=== PATIENT | female | born 1945 | race Caucasian/White ===

== ENCOUNTER 2016-05-15 08:36 | Emergency (ER) | payer OTHER ==
[~2016-05-15] VITALS: Ht 162.6 cm; Wt 70.0 kg
[~2016-05-15 08:36] MED LIST: ACET-1256 PO; ANT25 PO; ASPEC81 PO; CHOL200010 PO; DILT300C35 PO; DIPH-416 PO; FEXO1TAB49 PO; FLUT0.0529 NAE; LACT1TAB4 PO; POTA-331 PO; PRLSR20 PO; SIMV10TA2 PO; SYN137 PO; TRIA75TA53 PO; ULT50X PO
[2016-05-15 08:42] VITALS: TEMP 36.6; Ht 162.6 cm; Wt 70.0 kg
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
[2016-05-15] MEDS ORDERED: FLUT0.15 (09:35)
[2016-05-15] MEDS ORDERED: ASPI81TA28 PO (09:35)
[2016-05-15] MEDS ORDERED: IBUPROFEN 200 MG TAB PO STA (10:02)
[2016-05-15 10:26] VITALS: BP 138/80; PULSE 80; O2SAT 95
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
== END 2016-05-15 10:27 | disposition home or self-care (01) ==
LOC: EDBD 08:36 → C.EDB 08:37
DX: S09.90XA Unspecified injury of head, initial encounter (principal); V43.52XA Car driver injured in collision with other type car in traffic accident, initial encounter; E78.5 Hyperlipidemia, unspecified; K21.9 Gastro-esophageal reflux disease without esophagitis; Z79.899 Other long term (current) drug therapy; Z79.82 Long term (current) use of aspirin; Z96.653 Presence of artificial knee joint, bilateral; Z90.710 Acquired absence of both cervix and uterus; Z82.49 Family history of ischemic heart disease and other diseases of the circulatory system; Z82.3 Family history of stroke

== ENCOUNTER → 2016-08-15 | Outpatient (CLI) | payer OTHER ==
[~2016-08-15] MED LIST changes: -ACET-1256 PO; -ASPEC81 PO; +ASPI81TA28 PO; -DIPH-416 PO; -FLUT0.0529 NAE; +FLUT0.15; -POTA-331 PO; -ULT50X PO
--- NOTE | 2016-08-16 13:07 | MAMMOGRAPHY REPORT ---
BILATERAL DIGITAL SCREENING MAMMOGRAM WITH CAD: 08/15/2016 CLINICAL HISTORY: Routine screening. Patient has no complaints. TECHNIQUE: Bilateral CC and MLO views were obtained. Current study was also evaluated with a Comput er Aided Detection (CAD) system. COMPARISON: Comparison is made to exams dated: 08/15/2015 mammogram, 08/11/2014 mammogram, 08/10/2013 mammogram, 08/07/2012 mammogram, 06/15/2011 mammogram, and 06/09/2010 mammogram - [facility]. BREAST COMPOSITION: There are scattered areas of fibroglandular density in both breasts. FINDINGS: There are mild to moderate vascular calcifications in the breasts. No new suspicious mass , architectural distortion or cluster of microcalcifications is seen. IMPRESSION: ACR BI-RADS CATEGORY 1: NEGATIVE There is no mammographic evidence of malignancy. A 1 year screening mammogram is recommended. The p atient will receive written notification of the results. Approximately 10% of breast cancers are not detected with mammography. A negative mammographic repor t should not delay biopsy if a clinically suggestive mass is present. Stephanie Yañez M.D. ay/:08/15/2016 16:28:22 Electric Melt Operator: Sarah LONG(Drake)(David), [facility] letter sent: Normal 1/2 BI-RADS Code: ACR BI-RADS Category 1: Negative
== END | disposition home or self-care (01) ==
LOC: C.MAMM 15:49
PROVIDERS: ATTEND Physician Assistant
DX: Z12.31 Encounter for screening mammogram for malignant neoplasm of breast (principal)

== ENCOUNTER → 2017-08-07 | Outpatient (CLI) | payer OTHER | END | disposition home or self-care (01) | LOC: C.PATHSPEC 17:25 | PROVIDERS: ATTEND Physician Assistant | DX: C44.91 Basal cell carcinoma of skin, unspecified (principal) ==

== ENCOUNTER 2018-04-27 23:09 | Inpatient (IN) ==
[2018-04-27] MEDS ORDERED: SODIUM CHLORIDE 0.9% 500 ML IV SCH (23:30)
[2018-04-27 23:41] LABS: Basophils # (auto) 0.03 K/uL (0-0.2); Basophils % (auto) 0.2 %; Eosinophils # (auto) 0.34 K/uL (0-0.5); Eosinophils % (auto) 2.8 %; Hematocrit (blood only) 47.1 % (37-47); Hemoglobin 15.6 g/dL (12.0-16.0); Immature Granulocytes % (auto) 0.8 %; Lymphocytes # (auto) 3.52 K/uL (1.2-3.4); Lymphocytes % (auto) 29.1 %; Mean Corpuscular Hgb Conc 33.1 g/dL (32-36); Mean Corpuscular Volume 93.6 fL (80-100); Mean Platelet Volume 10.7 fL (7.4-10.4); Monocytes # (auto) 1.38 K/uL (0.11-0.59); Monocytes % (auto) 11.4 %; Neutrophils # (auto) 6.73 K/uL (1.4-6.5); Neutrophils % (auto) 55.7 %; Platelet Count 306 K/uL (130-400); RDW Coefficient of Variation 14.7 % (11.5-14.5); RDW Standard Deviation 50.1 fL (36.4-46.3); Red Blood Count 5.03 M/uL (4.2-5.4)
[2018-04-27] MEDS ORDERED: NITROGLYCERIN 2% OINTMENT 30GM TUBE EXT STA (23:51)
[2018-04-27] MEDS ORDERED: METOPROLOL TARTRATE 1 MG/ML VIAL IV STA (23:54)
[2018-04-28 00:07] LABS: Albumin Level 3.3 gm/dl (3.4-5.0); BUN Creatinine Ratio 25.5 (10-20); Calcium 8.6 mg/dl (8.5-10.1); Creatinine Clr Calc Pharmacy 53.2 ml/min; Est GFR (African American) 68.9; Est GFR (Non-African American) 59.4; Magnesium 1.6 mg/dl (1.8-2.4); Potassium 3.1 mmol/L (3.5-5.1)
[2018-04-28 00:15] LABS: Bilirubin,Total 0.4 mg/dl (0.2-1); Globulin 3.3 gm/dl (2.5-4.0); Total Protein 6.6 gm/dl (6.4-8.2); Troponin I 0.351 ng/ml (0-0.045)
[2018-04-28] MEDS ORDERED: MAGNESIUM OXIDE 400 MG TAB PO STA (00:18)
[2018-04-28] MEDS ORDERED: MAGNESIUM SULFATE / D5W 1 GM/100 ML BAG IV ONE (00:18)
[2018-04-28] MEDS ORDERED: POTASSIUM CHLORIDE 20 MEQ TABCR PO STA (00:40)
[2018-04-28] MEDS ORDERED: OPTIRAY 320 125ml IV PRN (00:53)
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
--- NOTE | 2018-04-28 04:07 | History and Physical Report ---
DATE OF ADMISSION: 04/28/2018 CHIEF COMPLAINT: Chest pain. HISTORY OF PRESENT ILLNESS: This is a 73-year-old female with past medical history significant for hypothyroidism, hyperlipidemia, hypertension, retinal vein occlusion of right eye, GERD, history of vitamin B12 deficiency, chronic kidney disease stage III, osteoporosis, history of pulmonary embolism, first time was in 1999 after being on hormone treatment and second time was in 2009, postoperative status post right knee arthroplasty. In October 2014, after status post left knee arthroplasty, she had hematoma and an IVC filter was placed and at that time after that she developed retroperitoneal hematoma and IVC filter was removed and because both the PEs were provoked, Coumadin was taken off and she is no longer on Coumadin and doing okay. Presents with chest pain today. The patient woke up in the middle of the night with chest pain, retrosternal area, radiating to left shoulder and left arm, was about 10/10 in severity. She took 4 aspirins and the pain started to subside. By the time EMS came, the pain was almost gone. She just had a pressure like feeling now and brought in here. Currently, hemodynamically stable. During the episode she was sweating, but denies any nausea or any dizziness. Otherwise, until this she was doing okay. She can climb steps and walk without any sob or any chest pain. No headaches, no blurred visions, no earaches, no runny nose, no sore throat, no difficulty swallowing, no cough. Sleeps okay. No night sweats. No recent significant weight gain or weight loss. No abdominal pain. Normal bowel and bladder movements. No blood in the stools or black stools. Currently, resting comfortably and hemodynamically stable. The patient received nitro paste and IV Lopressor in the ER.Patient lives with the daughter ALLERGIES: DAPTOMYCIN, IMIPENEM, RECLAST, SULFA ANTIBIOTICS. PAST MEDICAL HISTORY: As mentioned above. PAST SURGICAL HISTORY: Bilateral knee arthroplasties, colonoscopy, injection of the eye drug, IVC filter placement and status post removal, tonsillectomy, repair of the bladder and vagina cystocele, total abdominal hysterectomy with removal of tubes. MEDICATIONS: The patient is currently on omeprazole 20 mg p.o. daily, aspirin 81 p.o. daily, vitamin D 2000 units p.o. daily, diltiazem XT 300 mg p.o. at bedtime, fexofenadine 180 mg p.o. daily, levothyroxine 150 mcg p.o. daily, omeprazole 20 mg p.o. daily, pumpkin seed 1 cap p.o. b.i.d., Zantac 150 mg p.o. b.i.d., simvastatin 20 mg p.o. q.p.m., triamterene/hydrochlorothiazide 75/50 mg tablet half tablet p.o. daily. SOCIAL HISTORY: Significant for divorce, lives alone. No smoking, no alcohol, no drug use. REVIEW OF SYSTEMS: As per HPI. Rest of the review of systems negative. PHYSICAL EXAMINATION: GENERAL: The patient is of moderate build, not in acute distress. VITAL SIGNS: Temperature 36.5, pulse 83, respiratory rate 16, blood pressure 144/90, oxygen 94% on room air. HEENT: No pallor, no icterus. Pupils equal, round, and reactive to light. NECK: No JVD, no neck masses, no carotid bruit. CARDIOVASCULAR: S1, S2 heard, regular rate and rhythm, no murmur, no gallop. RESPIRATORY SYSTEM: Normal AP diameter. No accessory muscle use. No wheezing, no crackles. ABDOMEN: Soft, bowel sounds present. Nontender. No distention. CENTRAL NERVOUS SYSTEM: Cranial nerves II-XII grossly intact. Nonfocal. EXTREMITIES: No edema, no erythema. LABORATORY DATA: WBC 12.1, hemoglobin 15.6, hematocrit 47.1, platelets 306. Sodium 142, potassium 3.1, chloride 107, bicarbonate 27, BUN 24, creatinine 0.95. Serum glucose 113, calcium 8.6, magnesium 1.6, total bilirubin 0.4, AST 8, ALT 23, alkaline phosphatase 80, point of care troponin 1.09, troponin I of 0.35. Lipase 91. IMAGING DATA: CT of the chest, unofficial report, No PE. EKG: Sinus tachycardia at a rate of 101, no acute ST changes seen. No significant change from previous EKG. ASSESSMENT AND PLAN: This 73-year-old female presents with chest pain and found to have mild elevation in troponin, possible non-ST elevated DC. 1. Non-ST elevated DC. Woke up with chest pain, severe in nature in the middle of the chest, radiated to left arm. Has risk factors with hypertension, hyperlipidemia, age. CT of the chest, no PE. Will follow serial cardiac enzymes, echocardiogram. Will start on IV heparin. Will place on IV Lopressor and nitro paste. Closely monitor on tele floor. Cardiology consult. Follow echocardiogram, cardiac catheterization as per cardiology. 2. History of hypertension. Will continue home medication of triamterene/hydrochlorothiazide. As we started on IV Lopressor, we will cut back on Cardizem-CD from 300 to 120 mg daily and monitor the blood pressure. 3. Hyperlipidemia, on simvastatin 20 mg p.o. at bedtime. Follow fasting lipid profile. May need high-dose statins. 4. Hypothyroidism, on Synthroid. 5. Gastroesophageal reflux disease, on Prilosec sand Zantac. 6. Chronic kidney stage III, currently labs stable with creatinine at 0.95. 7. History of pulmonary embolism, provoked twice, first was in 1999 when she was on hormone pill, second time was in 2009 when she had a right knee arthroplasty, and in October 2014 when she had her left knee arthroplasty, she had hematoma in the thigh and at that time IVC filter was placed. Then she developed retroperitoneal hematoma and IVC filter was removed and as two PEs were provoked, Coumadin was stopped and she was not restarted. Today's CAT scan shows no PE. 8. Deep venous thrombosis prophylaxis, started on IV heparin. DISPOSITION: Closely monitor in tele floor. Expect to discharge home and follow with her family doctor. Level 1 full code. MTDD
[2018-04-28] MEDS ORDERED: ACETAMINOPHEN 325 MG TAB PO PRN (04:43)
[2018-04-28] MEDS ORDERED: MoRPHine SULFATE 4 MG/ML 1 ML CARP\\VIAL IV PRN (04:43)
[2018-04-28] MEDS ORDERED: Heparin IV Standard *NO* Bolus ONE (04:43)
[2018-04-28] MEDS ORDERED: HEPARIN STANDARD DEXTROSE 25,000 UNITS/500 ML IV SCH (05:12)
[2018-04-28] MEDS: METOPROLOL TARTRATE 1 MG/ML VIAL IV SCH ×2 (05:17→11:37)
[2018-04-28 05:47] LABS: Basophils # (auto) 0.03 K/uL (0-0.2); Basophils % (auto) 0.2 %; Eosinophils # (auto) 0.22 K/uL (0-0.5); Eosinophils % (auto) 1.7 %; Hematocrit (blood only) 42.7 % (37-47); Hemoglobin 14.2 g/dL (12.0-16.0); Immature Granulocytes # (auto) 0.08 K/uL (0.00-0.02); Immature Granulocytes % (auto) 0.6 %; Lymphocytes # (auto) 2.27 K/uL (1.2-3.4); Lymphocytes % (auto) 17.5 %; Mean Corpuscular Hgb Conc 33.3 g/dL (32-36); Mean Corpuscular Volume 93.2 fL (80-100); Mean Platelet Volume 9.9 fL (7.4-10.4); Monocytes # (auto) 1.18 K/uL (0.11-0.59); Monocytes % (auto) 9.1 %; Neutrophils # (auto) 9.22 K/uL (1.4-6.5); Neutrophils % (auto) 70.9 %; Platelet Count 274 K/uL (130-400); RDW Coefficient of Variation 14.6 % (11.5-14.5); RDW Standard Deviation 49.6 fL (36.4-46.3); Red Blood Count 4.58 M/uL (4.2-5.4)
[2018-04-28] MEDS ORDERED: NITROGLYCERIN 2% OINTMENT 30GM TUBE EXT SCH (06:00)
[2018-04-28 06:02] LABS: Partial Thromboplastin Time 24.7 Seconds (21.0-31.0)
[2018-04-28] MEDS: LEVOTHYROXINE SODIUM 150 MCG TABLET PO SCH (06:09)
[2018-04-28 06:15] LABS: Magnesium 1.9 mg/dl (1.8-2.4); Troponin I 3.34 ng/ml (0-0.045)
--- NOTE | 2018-04-28 06:52 | CT Scan Report ---
CT angio chest PE protocol CT DOSE: 243.30 mGy.cm HISTORY: Chest Pain, eval for PE TECHNIQUE: Multiaxial CT images of the chest were performed following the intravenous administration of contrast to evaluate the pulmonary arteries. Maximal intensity projection images were also obtaine d. A dose lowering technique was utilized adhering to the principles of ALARA. COMPARISON STUDY: 12/27/2014 FINDINGS: No evidence for pulmonary embolism. Thoracic aorta is normal in course and caliber. Minimal infiltrate left base. Lungs otherwise appear clear. Fixed lateral hernia. Centimeter left renal cyst. IMPRESSION: No evidence for pulmonary embolus. Minimal infiltrate left base. Fixed lateral hernia. Large left dat al cyst. The above report was generated using voice recognition software. It may contain grammatical, syntax or spelling errors. Electronically signed by: Mykel Cohn M.D. 04/28/2018 6:51 AM
[2018-04-28] MEDS: TRIAMTERENE/HCTZ 37.5/25MG TAB PO SCH (07:44)
[2018-04-28] MEDS: CHOLECALCIFEROL 1,000 UNITS TAB PO SCH (07:44)
[2018-04-28] MEDS: ASPIRIN 81 MG ECTAB PO SCH (07:45)
[2018-04-28] MEDS: PANTOprazole 40 MG TAB PO SCH (07:45)
[2018-04-28] MEDS ORDERED: dilTIAZem HCL 120 MG CAPCR PO SCH (09:00)
[2018-04-28] MEDS: NITROGLYCERIN SL 0.4 MG/TAB TAB SL PRN ×3 (09:13→13:00)
[2018-04-28] MEDS ORDERED: NiCARDipine HCL INJ 2.5 MG/ML 10 ML AMP ONE (09:14)
[2018-04-28] MEDS ORDERED: MIDAZOLAM HCL 1 MG/ML 2ML VIAL ONE (09:14)
[2018-04-28] MEDS ORDERED: HEPARIN (PORCINE) 1000 UNIT/ML 10 ML (CATH LAB USE ONLY) ONE (09:14)
[2018-04-28] MEDS ORDERED: fentaNYL citrate 100 MCG/2 ML VIAL ONE (09:14)
[2018-04-28] MEDS ORDERED: NITROGLYCERIN/D5W 100MCG/ML 20ML SYR ONE (09:15)
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
--- NOTE | 2018-04-28 09:16 | Pre Anesthesia Assessment ---
Date of Service April 28, 2018 Pre Sedation Assessment Vital Signs Temp Pulse Pulse Resp BP Pulse Ox 04/30/18 16:30 83 17 114/77 90 04/30/18 16:15 83 19 115/76 92 04/30/18 16:00 86 18 114/80 95 04/30/18 15:34 36.4 C L 86 18 125/76 93 04/30/18 11:00 36.8 C 91 H 19 112/74 95 04/30/18 08:00 84 04/30/18 07:01 36.5 C 89 18 107/75 94 04/30/18 03:07 36.6 C 88 18 115/77 97 04/29/18 23:51 36.7 C 81 18 106/66 92 04/29/18 23:14 82 04/29/18 19:10 36.6 C 83 20 102/65 93 Cardiovascular RRR, no murmur, no edema Respiratory normal respiratory effort, lungs clear to auscultation Pre-Sedation Airway Assessment Smoking Status: Never smoker Procedure Planning Contraindications for Sedation: none Current Medications Reviewed: Yes Notes The planned sedation has been discussed with the patient. Informed Consent was obtained. I have identified the patient, determined the appropriateness of sedation and have assessed the patient immediately prior to the procedure. All medicine(s) and interventions are by my order.
--- NOTE | 2018-04-28 10:23 | Cardiac Catheterization ---
Cardiac Cath Procedure Full Procedure Date April 28, 2018 Pre-Procedure Diagnosis Pre-Procedure Diagnosis: Non STEMI AUC Score AUC Score: 9 Post-Procedure Diagnosis Post-Procedure Diagnosis: Severe CAD and Elevated Intracardiac Pressures Procedure(s) Performed Procedure(s) Performed: Coronary Angiography and Left Heart Cath Dough Raiser Charles Ortega DO Estimated Blood Loss Estimated Blood Loss: 10cc Medication(s) Medication(s): Fentanyl, Heparin, Lidocaine 1%, Nicardipine, Nitroglycerin and Versed Summary of Findings 99% mid LAD 70% proximal RCA Hemodynamics Rest Ao:: 109/65/85 Final Ao: 124/65/90 LV: 127/6/18 Recommendations Recommendations: PCI without planned CABG Specimens Specimens: None Radiation Exposure (mGy) 626 Contrast (mls) 55 Fluids (cc crystalloids) Fluids (cc crystalloids): 61 NSS Anesthesia Moderate sedation. Start 0937. End 101. Procedural Complication(s) None Sheath exchanged for 6Fr glide sheath due to oozing at skin. No furher blood loss after exchange. Disposition cardiac catheterization technician for PCI ACC Data: Te[place] Cardiac Status Clinical evaluation leading to the procedure CAD Presenation: Non STEMI Anginal Classification: CCS IV Heart Failure: No Cardiogenic Shock within 24 Hours: No Cardiac Arrest within 24 Hours: No Imaging Studies Past 6 Months: No Stress Studies Past 6 Months: No STEMI OR Non-STEMI Symptom Onset Date: 04/27/18 Symptom Onset Time: 22:02 Thrombolytics: No Coronary Anatomy Dominant: Right Left Main (% Stenosis): Normal LAD (% Stenosis): Proximal (40% in area of mild to moderate calcification), Mid (99%) and Distal (30%) D1 (% Stenosis): Normal Circumflex (% Stenosis): Normal OM1 (% Stenosis): Normal L PL1 (% Stenosis): Normal RCA (% Stenosis): Proximal (70% followed by 50%) R PDA (% Stenosis): Normal R PL1 (% Stenosis): Normal Diagnostic Physicians Name: Charles Ortega DO Closure Device Percutaneous Entry Location: Radial Closure Device: Radial Band Recommendations: PCI without planned CABG Intraprocedure Events Significant Disection: No Perforation: No
[2018-04-28] MEDS ORDERED: ADENOSINE IV SOLN 3 MG/ML 20 ML VIAL IV ONE (10:31)
--- NOTE | 2018-04-28 10:33 | Post Anesthesia Assessment ---
Date of Service April 28, 2018 Post Sedation Assessment Vital Signs Temp Pulse Pulse Resp BP Pulse Ox 04/30/18 16:30 83 17 114/77 90 04/30/18 16:15 83 19 115/76 92 04/30/18 16:00 86 18 114/80 95 04/30/18 15:34 36.4 C L 86 18 125/76 93 04/30/18 11:00 36.8 C 91 H 19 112/74 95 04/30/18 08:00 84 04/30/18 07:01 36.5 C 89 18 107/75 94 04/30/18 03:07 36.6 C 88 18 115/77 97 04/29/18 23:51 36.7 C 81 18 106/66 92 04/29/18 23:14 82 04/29/18 19:10 36.6 C 83 20 102/65 93 Post Sedation Plan On clinical assessment, the patient appears to have tolerated the sedation without complications. Patient is recovering as anticipated. Patient will continue to be monitored by nursing and may be discharged when sedation discharge criteria are met per below protocol. Upon Completions of procedure and additional 15 minutes continue every 5 minute vital signs and the P.A.R. score; then discharge to a Phase I or Fast Track to Phase II per the following guidelines: * Discharge Patient to appropriate Phase II area if PAR is 8 or greater or return to pre- procedure baseline. The post - procedure orders will be as directed. * If PAR score is less than 8 or not return to pre-procedure baseline then patient will follow Phase I monitoring till PAR is reached for Phase II. The Phase I may be done in procedure room or may call to secure a Phase I area. * If naloxone or flumazenil are used for reversal, hold in Phase I for continued monitoring from when last reversal dose was given for a minimum of 60 minutes or longer pending the nurse and/or physician discretion of patient condition before discharge to Phase II. Please call the Sedation Physician to re-evaluate and complete post-note for discharge to Phase II area. Do NOT discharge from procedure sedation or Phase 1 until post- sedation evaluation note is complete by procedure /sedation MD Sedation Discharge Instructions to be given to the patient at discharge to home.
--- NOTE | 2018-04-28 10:51 | Post Anesthesia Assessment ---
Date of Service April 28, 2018 Post Sedation Assessment Vital Signs Temp Pulse Pulse Resp BP BP Pulse Ox 04/28/18 09:18 96 H 131/74 04/28/18 09:12 96 H 146/84 H 04/28/18 07:30 36.7 C 78 18 120/76 94 04/28/18 07:16 79 04/28/18 04:14 36.5 C 78 18 145/88 H 96 04/28/18 03:27 80 18 98 04/28/18 03:00 83 17 135/90 04/28/18 02:30 83 16 94 04/28/18 02:00 82 30 H 144/90 H 94 04/28/18 01:35 78 19 94 04/28/18 01:34 80 18 121/76 95 04/28/18 01:33 79 20 121/76 94 04/28/18 01:00 80 18 132/82 04/28/18 00:49 82 18 143/88 H 96 04/28/18 00:48 84 28 H 143/88 H 94 04/28/18 00:47 90 35 H 04/28/18 00:10 78 16 141/95 H 04/28/18 00:07 88 21 153/97 H 04/28/18 00:03 95 H 18 166/95 H 04/27/18 23:57 90 18 155/104 H 96 04/27/18 23:31 90 18 140/109 H 94 04/27/18 23:30 88 19 95 04/27/18 23:27 97 04/27/18 23:16 104 H 18 96 04/27/18 23:14 101 H 21 160/100 H 96 04/27/18 23:12 36.5 C 100 H 18 160/100 H 97 Recovery Score Activity: Moves 4 extremities Respiration: Deep Breath/Cough Circulation: +/-20% PreAnes Value Consciousness: Fully Awake Oxygen Saturation: O2 needed for >90% Discharge Sedation Level of Care: Fast Track Phase II Post Sedation Plan On clinical assessment, the patient appears to have tolerated the sedation without complications. Patient is recovering as anticipated. Patient will continue to be monitored by nursing and may be discharged when sedation discharge criteria are met per below protocol. Upon Completions of procedure and additional 15 minutes continue every 5 minute vital signs and the P.A.R. score; then discharge to a Phase I or Fast Track to Phase II per the following guidelines: * Discharge Patient to appropriate Phase II area if PAR is 8 or greater or return to pre- procedure baseline. The post - procedure orders will be as directed. * If PAR score is less than 8 or not return to pre-procedure baseline then patient will follow Phase I monitoring till PAR is reached for Phase II. The Phase I may be done in procedure room or may call to secure a Phase I area. * If naloxone or flumazenil are used for reversal, hold in Phase I for continued monitoring from when last reversal dose was given for a minimum of 60 minutes or longer pending the nurse and/or physician discretion of patient condition before discharge to Phase II. Please call the Sedation Physician to re-evaluate and complete post-note for discharge to Phase II area. Do NOT discharge from procedure sedation or Phase 1 until post- sedation evaluation note is complete by procedure /sedation MD Sedation Discharge Instructions to be given to the patient at discharge to home.
[2018-04-28] MEDS ORDERED: TICAGRELOR 90 MG TAB PO ONE (10:52)
--- NOTE | 2018-04-28 11:00 | Cardiac Catheterization ---
Cardiac Cath Procedure Full Procedure Date April 28, 2018 Pre-Procedure Diagnosis Pre-Procedure Diagnosis: Non STEMI AUC Score AUC Score: 9 Post-Procedure Diagnosis Post-Procedure Diagnosis: Severe CAD and Successful PCI Procedure(s) Performed Procedure(s) Performed: Coronary Angiography, Drug Eluting Stent and Fractional Flow [place] [employer] Pedro Vera MD Litigation Support Analyst(s) [place] Estimated Blood Loss Estimated Blood Loss: 10cc Medication(s) Medication(s): Fentanyl, Heparin, Lidocaine 1%, Nicardipine, Nitroglycerin and Versed Medication(s): Ticagrelor Summary of Findings Indication: ACS Access: 6 [place] right radial artery Catheters: EBU 3.5 guide, JR4 guide Findings: For full details of patient's coronary angiography please cath report dictated by Dr. Ortega. Briefly, patient found to have severe multi vessel disease including a 95% stenosis involving the mid LAD and 60-70% proximal to mid RCA stenosis. Decision to proceed with PCI of mid LAD and FFR of RCA. -- PCI -- Antithrombotic therapy: Heparin, ticagrelor Procedure: Left main cannulated with EBU 3.5 Business Development Officer 50 wire passed across lesion into distal vessel Mid LAD lesion predilated with 2.5 compliant balloon Dilated lesion stented with 2.75 x 18 mm Xience Any Stent post-dilated with 3.0 noncompliant balloon IC vasodilators administered for spasm Post procedure NADINE 3 flow, stent well expanded with minimal residual stenosis and no apparent cardiac complications. FFR of proximal mid RCA RCA cannulated with JR4 guide Straight FFR wire placed into distal RCA IFR 0.86 FFR 0.71 Post procedure angiography revealed no coronary complications Arterial Closure: TR band Summary: 1. Severe multi vessel coronary artery disease -95% mid LAD (culprit vessel) 60-70% proximal to mid RCA (hemodynamically significant, FFR 0.71) 2. Successful PCI of mid LAD with single drug-eluting stent (2.75 x 18 mm Xience Any; postdilated with 3.0 NC). Recommendations: To PCU for continued monitoring Loaded with ticagrelor 180 mg in cath lab manager Continue dual-antiplatelet therapy for at least one year Continue statin, and ASCVD risk factor modification Consult cardiac Rehab Medical management of proximal to mid RCA. If refractory symptoms in the future disease amenable to PCI. Hemodynamics Rest Ao:: 124/65/90 Final Ao: 119/62/89 LV: 127/18 Recommendations Recommendations: PCI without planned CABG Specimens Specimens: None Radiation Exposure (mGy) 1249 Contrast (mls) 55, 105 total Fluids (cc crystalloids) Fluids (cc crystalloids): 105 Drains Drains: None Anesthesia Moderate sedation Procedural Complication(s) None Sheath exchanged for 6Fr glide sheath due to oozing at skin. No furher blood loss after exchange. Disposition PCU ACC Data: Dorr Operator Cardiac Status Clinical evaluation leading to the procedure CAD Presenation: Non STEMI Anginal Classification: CCS IV Heart Failure: No Cardiogenic Shock within 24 Hours: No Cardiac Arrest within 24 Hours: No Imaging Studies Past 6 Months: Yes Stress Studies Past 6 Months: No Diagnostic Physicians Name: Jordan Status: Urgent Closure Device Percutaneous Entry Location: Radial Closure Device: Radial Band Recommendations: PCI without planned CABG PCI Indication: PCI for high risk Non-JOHN Lesion Segment Name: Mid LAD Culprit Artery: Yes Stenosis Prior to Rx (%): 95 Chronic Total Occlusion: No IVUS: No FFR: No Pre-Procedure NADINE Flow: 2 Previously Treated Lesion: No Lesion Complexity: Non-High/Non-C Lesion Length (mm): 15 Thrombus Present: Yes Bifurcation Lesion: No Guidewire Across Lesion: Stenosis Post-Procedure (%): 0 Post-Procedure NADINE Flow : 3 Devices(s) Deployed: Yes Yes Lesion #2 Segment Name: Proximal to mid RCA Culprit Artery: No Stenosis Prior to Rx (%): 60-70 Chronic Total Occlusion: No IVUS: No FFR: Yes Ratio: less than or equal to 0.75% Pre-Procedure NADINE Flow: 3 Previously Treated Lesion: No Thrombus Present: No Bifurcation Lesion: No Intraprocedure Events Significant Disection: No Perforation: No
[2018-04-28 12:48] LABS: Partial Thromboplastin Ratio > 11.0
[2018-04-28 12:50] LABS: Partial Thromboplastin Time > 300.0 Seconds (21.0-31.0)
[2018-04-28] MEDS ORDERED: NITROGLYCERIN 2% OINTMENT 30GM TUBE ONE (13:11)
[2018-04-28] MEDS ORDERED: FUROSEMIDE 40 MG/4 ML VIAL IV ONE (13:19)
[2018-04-28] MEDS: ONDANSETRON INJ 2 MG/ML 2 ML VIAL IV PRN (13:30)
[2018-04-28] MEDS: ATORVASTATIN 40 MG TAB PO SCH (14:09)
[2018-04-28] MEDS: TICAGRELOR 90 MG TAB PO SCH (20:04)
[2018-04-28] MEDS: METOPROLOL TARTRATE 25 MG TAB PO SCH (20:04)
[2018-04-28] MEDS ORDERED: SIMVASTATIN 20 MG TAB PO SCH (21:00)
[2018-04-29] MEDS: LEVOTHYROXINE SODIUM 150 MCG TABLET PO SCH (05:27)
[2018-04-29 05:55] LABS: Partial Thromboplastin Time 24.7 Seconds (21.0-31.0)
[2018-04-29 06:03] LABS: BUN Creatinine Ratio 19.4 (10-20); Calcium 8.2 mg/dl (8.5-10.1); Creatinine Clr Calc Pharmacy 44.5 ml/min; Est GFR (African American) 59.6; Est GFR (Non-African American) 51.5; Potassium 3.7 mmol/L (3.5-5.1)
[2018-04-29] MEDS: TICAGRELOR 90 MG TAB PO SCH ×2 (08:25→20:14)
[2018-04-29] MEDS: PANTOprazole 40 MG TAB PO SCH (08:26)
[2018-04-29] MEDS: METOPROLOL TARTRATE 25 MG TAB PO SCH ×2 (08:26→20:13)
[2018-04-29] MEDS: ATORVASTATIN 40 MG TAB PO SCH (08:27)
[2018-04-29] MEDS: CHOLECALCIFEROL 1,000 UNITS TAB PO SCH (08:27)
[2018-04-29] MEDS: ASPIRIN 81 MG ECTAB PO SCH (08:27)
[2018-04-29] MEDS: TRIAMTERENE/HCTZ 37.5/25MG TAB PO SCH (08:28)
--- NOTE | 2018-04-29 11:57 | Cardiology Progress Note ---
Date of Service April 29, 2018 Assessment & Plan (1) Non-ST elevated myocardial infarction (non-STEMI): Culprit vessel (LAD) treated with a drug-eluting stent implantation. Residual significant proximal right coronary artery stenosis noted. Medical therapy versus invasive strategy discussed with patient. She prefers to proceed with PCI of the right coronary artery. We will plan procedure in the a.m. 04/30/18. Risks of procedure discussed with patient. She is agreeable. (2) Dyslipidemia: Simvastatin discontinued in favor of high intensity statin therapy. 80 mg of atorvastatin ordered. (3) Hypertension: (4) History of pulmonary embolism: (5) Ischemic cardiomyopathy: Diltiazem discontinued. Patient tolerating beta-johnna therapy we will add lisinopril 2.5 mg daily. Subjective Patient seen and examined at the bedside. Feeling well from a cardiovascular perspective. No recurrent chest discomfort overnight. Troponins trending downward. No dysrhythmias on telemetry. Repeat ECG demonstrates T wave inversions across the anterior lateral precordial leads. Patient has questions regarding return to work. Denies orthopnea, PND, or palpitations. Tolerating medications. Offers no other concerns/complaints at this time. Review of Systems All systems reviewed & are unremarkable except as noted in HPI & below Physical Exam 2 Vital Signs (Past 24 Hours): Last Vital Signs Temp 36.9 C 04/29/18 11:47 Pulse 69 04/29/18 11:47 Resp 18 04/29/18 11:47 BP 132/64 04/29/18 11:47 Pulse Ox 96 04/29/18 11:47 Physical Exam: General: NAD, AAO x3, well nourished. HEENT: Normocephalic. Atraumatic. Conjunctiva pink, no scleral icterus. Neck: No carotid bruits, the carotid upstrokes are brisk. No JVD. No HJR Heart: Regular normal S-1 and S-2 no S-3 or S-4 gallop. No murmurs or rub appreciated. PMI is not displaced. No RV heave. Lungs: Clear bilateral without rales , rhonchi, or wheeze. Abdomen: Normal bowel sounds. Soft. Nontender. No masses or organomegaly. No abdominal bruits. Extremities: Mild ecchymosis of the right anterior wrist. No clubbing, cyanosis, or edema. Pulses: radial=2/4, Dorsalis pedis =2/4, posterior tibial=2/ 4. Neuro: Cranial nerves grossly intact. No focal motor deficit.
[2018-04-29] MEDS: LISINOPRIL 2.5 MG TAB PO SCH (13:15)
--- NOTE | 2018-04-29 16:44 | Hospitalist Progress Note ---
Date of Service April 29, 2018 Assessment & Plan (1) Non-ST elevated myocardial infarction (non-STEMI): Presented with chest pain. Troponin 0.351 --> 3.340. Intially received aspirin, IV heparin, beta johnna. Cardiology consulted. Cardiac cath by Dr. Ortega demonstrated 99% mid LAD lesion and 70% proximal RCA lesion. PCI of LAD lesion performed by Dr. Vera with drug-eluting stent. Echo today showed segmental wall motion abnormalities involving apex and mid septum, grade I diastolic dysfunction. Receiving aspirin, ticagrelor, metoprolol, lisinopril, statin. (2) Ischemic cardiomyopathy: LVEF by echo today = 35-40%. Receiving lisinopril. Experiencing mild dyspnea with exertion. Check f/u chest x-ray tomorrow. (3) Hypertension: Received metoprolol and lisinopril. (4) Dyslipidemia: LDL-c = 45. Switched from simvastatin to atorvastatin in light of non-STEMI. (5) Hypothyroidism: Continue levothyroxine. (6) DVT prophylaxis: Received IV heparin. Ambulate. (7) Discharge planning issues: Anticipated discharge to home. Primary care follow-up with Dr. Winchester. Subjective Recheck for myocardial infarction and other problems. Pt seen in her room around 1630. PCI LAD performed yesterday. PCI RCA planned for tomorrow. No chest pain. Mild dyspnea and fatigue with exertion. No fever. No cough. No nausea or vomiting. No urinary symptoms. Physical Exam 2 Vital Signs (Past 24 Hours): Last Vital Signs Temp 36.9 C 04/29/18 15:22 Pulse 92 H 04/29/18 15:22 Resp 20 04/29/18 15:22 BP 112/75 04/29/18 15:22 Pulse Ox 93 04/29/18 15:22 Constitutional: no acute distress Respiratory: no respiratory distress Auscultation: lungs clear to auscultation bilaterally Cardiovascular: Rate/Rhythm: regular rate and regular rhythm Heart Sounds: no gallop, no murmur and no cardiac rub Vessels: no JVD Extremities: no calf tenderness and no edema Gastrointestinal (Abdomen): normal bowel sounds, soft, nontender, no hepatosplenomegaly Musculoskeletal: Extremities: + upper extremity abnormal to inspection (right radial cath side without bleeding or hematoma) Skin: no rashes, warm and dry Psychiatric: Orientation: alert and oriented x 3 Results & Data Laboratory Results Laboratory Results - last 24 hr 04/28/18 04/28/18 04/29/18 10:15 10:30 05:20 APTT 24.7 PTT Ratio 1.0 Activ Coag Time Kaolin 191 H 296 H Sodium Potassium Chloride Carbon Dioxide Anion Gap BUN Creatinine Est Cr Clr Drug Dosing Est GFR ( Amer) Est GFR (Non-Af Amer) BUN/Creatinine Ratio Glucose Calcium 04/29/18 05:20 APTT PTT Ratio Activ Coag Time Kaolin Sodium 142 Potassium 3.7 D Chloride 106 Carbon Dioxide 28 Anion Gap 8.0 BUN 21 H Creatinine 1.07 Est Cr Clr Drug Dosing 44.5 Est GFR ( Amer) 59.6 Est GFR (Non-Af Amer) 51.5 BUN/Creatinine Ratio 19.4 Glucose 91 Calcium 8.2 L ECG Additional Comments: EKG performed this morning at 0609 reviewed and demonstrated NSR 80/min, T-wave inversions I, II, aVL, V1-6.
[2018-04-30] MEDS: LEVOTHYROXINE SODIUM 150 MCG TABLET PO SCH (05:57)
[2018-04-30 06:58] LABS: Hematocrit (blood only) 45.4 % (37-47); Hemoglobin 15.1 g/dL (12.0-16.0); Mean Corpuscular Hgb Conc 33.3 g/dL (32-36); Mean Corpuscular Volume 94.4 fL (80-100); Mean Platelet Volume 10.2 fL (7.4-10.4); Platelet Count 281 K/uL (130-400); RDW Coefficient of Variation 14.8 % (11.5-14.5); RDW Standard Deviation 50.8 fL (36.4-46.3); Red Blood Count 4.81 M/uL (4.2-5.4); White Blood Count 14.02 K/uL (4.8-10.8)
--- NOTE | 2018-04-30 07:23 | XRay Report ---
XR chest 1V portable CLINICAL HISTORY: Myocardial infarction COMPARISON STUDY: Chest x-ray dated 02/17/2015 FINDINGS: The heart is at the upper limits of normal in size. There is no failure. There is mild elev ation left hemidiaphragm. The right lung is clear. Left basilar opacities are nonspecific are likely atelectatic. There is minor blunting of the left lateral costophrenic angle.[ IMPRESSION: Mild elevation left hemidiaphragm. Minor left basilar opacities, likely atelectatic. Electronically signed by: Anthony Aponte M.D. 04/30/2018 7:21 AM
[2018-04-30 07:34] LABS: BUN Creatinine Ratio 21.7 (10-20); Calcium 8.6 mg/dl (8.5-10.1); Creatinine Clr Calc Pharmacy 39.2 ml/min; Est GFR (African American) 52.4; Est GFR (Non-African American) 45.3; Potassium 3.4 mmol/L (3.5-5.1)
[2018-04-30] MEDS: CHOLECALCIFEROL 1,000 UNITS TAB PO SCH (08:36)
[2018-04-30] MEDS: METOPROLOL TARTRATE 25 MG TAB PO SCH ×2 (08:36→20:56)
[2018-04-30] MEDS: TRIAMTERENE/HCTZ 37.5/25MG TAB PO SCH (08:36)
[2018-04-30] MEDS: ATORVASTATIN 40 MG TAB PO SCH (08:36)
[2018-04-30] MEDS: LISINOPRIL 2.5 MG TAB PO SCH (08:36)
[2018-04-30] MEDS: ASPIRIN 81 MG ECTAB PO SCH (08:36)
[2018-04-30] MEDS: PANTOprazole 40 MG TAB PO SCH (08:36)
[2018-04-30] MEDS: TICAGRELOR 90 MG TAB PO SCH ×2 (08:37→20:56)
[2018-04-30] MEDS ORDERED: LIDOCAINE HCL 1% 20 ML VIAL ONE (11:45)
[2018-04-30] MEDS ORDERED: MIDAZOLAM HCL 1 MG/ML 2ML VIAL ONE (14:01)
[2018-04-30] MEDS ORDERED: fentaNYL citrate 100 MCG/2 ML VIAL ONE (14:01)
[2018-04-30] MEDS ORDERED: HEPARIN (PORCINE) 1000 UNIT/ML 10 ML (CATH LAB USE ONLY) ONE (14:02)
[2018-04-30] MEDS ORDERED: NiCARDipine HCL INJ 2.5 MG/ML 10 ML AMP ONE (14:02)
[2018-04-30] MEDS ORDERED: NITROGLYCERIN/D5W 100MCG/ML 20ML SYR ONE (14:02)
--- NOTE | 2018-04-30 15:40 | Pre Anesthesia Assessment ---
Date of Service April 30, 2018 Pre Sedation Assessment Vital Signs Temp Pulse Pulse Resp BP Pulse Ox 04/30/18 15:34 36.4 C L 86 18 125/76 93 04/30/18 11:00 36.8 C 91 H 19 112/74 95 04/30/18 08:00 84 04/30/18 07:01 36.5 C 89 18 107/75 94 04/30/18 03:07 36.6 C 88 18 115/77 97 04/29/18 23:51 36.7 C 81 18 106/66 92 04/29/18 23:14 82 04/29/18 19:10 36.6 C 83 20 102/65 93 Cardiovascular RRR, no murmur, no edema Respiratory normal respiratory effort, lungs clear to auscultation Pre-Sedation Airway Assessment Smoking Status: Never smoker Hx Sleep Apnea: No Short, Thick Neck: No Thyromental Distance: > or= 3.5 Finger Breadths Oral Cavity: + WNL Mallampati Class: II ASA: ASA3 NPO Status Date of Last Intake of Fluids: 04/30/18 Time of Last Intake of Fluids: 08:16 Last Oral Intake of Fluids Comment: sips with pills Date of Last Intake of Solid Food: 04/29/18 Time of Last Intake of Solid Foods: 21:00 Procedure Planning Contraindications for Sedation: none Current Medications Reviewed: Yes Notes The planned sedation has been discussed with the patient. Informed Consent was obtained. I have identified the patient, determined the appropriateness of sedation and have assessed the patient immediately prior to the procedure. All medicine(s) and interventions are by my order.
--- NOTE | 2018-04-30 15:43 | Cardiac Catheterization ---
Cardiac Cath Procedure Full Procedure Date April 30, 2018 Pre-Procedure Diagnosis Pre-Procedure Diagnosis: Non STEMI AUC Score AUC Score: 7 Post-Procedure Diagnosis Post-Procedure Diagnosis: Severe CAD and Successful PCI Procedure(s) Performed Procedure(s) Performed: Coronary Angiography and Drug Eluting Stent Dance Coach Pedro Vera MD Epilepsy Physician(s) Echo Estimated Blood Loss Estimated Blood Loss: 10cc Medication(s) Medication(s): Fentanyl, Heparin, Lidocaine 1%, Nicardipine, Nitroglycerin and Versed Summary of Findings Indication: Staged PCI Access: 6 Citizen Of [place] right radial artery Catheters: JR4.5 guide Findings: Patient return for staged PCI of proximal to mid RCA today. For full details of patient's diagnostic coronary angiography please see cath report dictated by Dr. Ortega on 04/28/2018. -- PCI -- Antithrombotic therapy: Heparin, ticagrelor Procedure: RCA cannulated with JR 4.5 guide BMW wire navigated across lesion into distal vessel Proximal to mid RCA predilated with 2.5 compliant balloon 3.5 x 26 mm Bruce drug-eluting stent delivered across lesion with the aid of a guide liner. Stent postdilated with 3.75 NC balloon IC vasodilators administered for vasospasm. Post procedure stent well-expanded. NADINE-3 flow throughout RCA system. Mild residual disease proximal to stent thought likely some residual spasm. Arterial Closure: TR band Summary: 1. Successful PCI of proximal to mid RCA with single drug-eluting stent (3.5 x 26 mm Bruce; postdilated with 3.75 NC). Recommendations: To PCU for continued monitoring Continue dual-antiplatelet therapy for at least one year Continue statin, and ASCVD risk factor modification Hemodynamics Rest Ao:: 91/69/81 Final Ao: 83/59/70 LV: -- Recommendations Recommendations: PCI without planned CABG Specimens Specimens: None Radiation Exposure (mGy) 445 Contrast (mls) 50 Fluids (cc crystalloids) Fluids (cc crystalloids): 250 Drains Drains: None Anesthesia Moderate sedation Procedural Complication(s) None Disposition PCU ACC Data: Data Modeling Architect Cardiac Status Clinical evaluation leading to the procedure CAD Presenation: Non STEMI Anginal Classification: CCS IV Heart Failure: No Cardiogenic Shock within 24 Hours: No Cardiac Arrest within 24 Hours: No Imaging Studies Past 6 Months: Yes Stress Studies Past 6 Months: No Diagnostic Physicians Name: Kopinski. Status: Elective Closure Device Percutaneous Entry Location: Radial Closure Device: Radial Band Recommendations: PCI without planned CABG PCI Indication: Staged PCI Lesion Segment Name: Proximal to mid RCA Culprit Artery: No Stenosis Prior to Rx (%): 80 Chronic Total Occlusion: No IVUS: No FFR: No Pre-Procedure NADINE Flow: 3 Previously Treated Lesion: No Lesion Complexity: Non-High/Non-C Lesion Length (mm): 20 Thrombus Present: No Bifurcation Lesion: No Guidewire Across Lesion: Stenosis Post-Procedure (%): 0 Post-Procedure NADINE Flow : 3 Devices(s) Deployed: Yes Yes Intraprocedure Events Significant Disection: No Perforation: No
[2018-04-30] MEDS: ONDANSETRON INJ 2 MG/ML 2 ML VIAL IV PRN (15:57)
[2018-04-30] MEDS: SODIUM CHLORIDE 0.9% 1000ML 1,000 ML IV SCH ×2 (16:25→23:14)
--- NOTE | 2018-04-30 16:44 | Cardiology Progress Note ---
Date of Service April 30, 2018 Assessment & Plan (1) Non-ST elevated myocardial infarction (non-STEMI): Culprit vessel (LAD) treated with a drug-eluting stent implantation. Proximal RCA stented with AMIE today. Recommend 12 months of uninterrupted dual antiplatelet therapy. Continue beta-johnna, statin, and LIBAN inhibitor. (2) Dyslipidemia: Simvastatin discontinued in favor of high intensity statin therapy. (3) Hypertension: (4) History of pulmonary embolism: (5) Ischemic cardiomyopathy: Diltiazem discontinued. Patient tolerating beta-johnna and lisinopril 2.5 mg daily. Subjective Patient seen and examined at the bedside. Reports mild nausea currently. Received dose of Zofran. Underwent PCI to right coronary artery without complication. No recurrent chest discomfort. Daughter is present at bedside. Tolerating medications listed below. TR band in place. No signs of bleeding. Review of Systems All systems reviewed & are unremarkable except as noted in HPI & below Physical Exam 2 Vital Signs (Past 24 Hours): Last Vital Signs Temp 36.4 C L 04/30/18 15:34 Pulse 83 04/30/18 16:30 Resp 17 04/30/18 16:30 BP 114/77 04/30/18 16:30 Pulse Ox 90 04/30/18 16:30 Physical Exam: General: NAD, AAO x3, well nourished. HEENT: Normocephalic. Atraumatic. Conjunctiva pink, no scleral icterus. Neck: No carotid bruits, the carotid upstrokes are brisk. No JVD. No HJR Heart: Regular normal S-1 and S-2 no S-3 or S-4 gallop. No murmurs or rub appreciated. PMI is not displaced. No RV heave. Lungs: Clear bilateral without rales , rhonchi, or wheeze. Abdomen: Normal bowel sounds. Soft. Nontender. No masses or organomegaly. No abdominal bruits. Extremities: No clubbing, cyanosis, or edema. Pulses: + right sided TR band. No ecchymosis or hematoma. Posterior tibial=2/4. Neuro: Cranial nerves grossly intact. No focal motor deficit.
--- NOTE | 2018-04-30 20:24 | Hospitalist Progress Note ---
Date of Service April 30, 2018 Assessment & Plan (1) Non-ST elevated myocardial infarction (non-STEMI): Presented with chest pain. Troponin 0.351 --> 3.340. Intially received aspirin, IV heparin, beta johnna. Cardiology consulted. Cardiac cath by Dr. Ortega demonstrated 99% mid LAD lesion and 70% proximal RCA lesion. PCI of LAD lesion performed by Dr. Vera with drug-eluting stent 04/28/18. PCI of RCA lesion performed by Dr. Vera with drug-eluting stent today. Echo 04/29/18 showed segmental wall motion abnormalities involving apex and mid septum, grade I diastolic dysfunction. Receiving aspirin, ticagrelor, metoprolol, lisinopril, statin. (2) Ischemic cardiomyopathy: LVEF by echo today = 35-40%. Receiving lisinopril. Experiencing mild dyspnea with exertion. No pulmonary edema on chest x-ray. (3) Hypertension: Received metoprolol and lisinopril. (4) Dyslipidemia: LDL-c = 45. Switched from simvastatin to atorvastatin in light of non-STEMI. (5) Hypothyroidism: Continue levothyroxine. (6) DVT prophylaxis: Received IV heparin. Ambulate. (7) Discharge planning issues: Anticipated discharge to home. Primary care follow-up with Dr. Winchester. Subjective Recheck for myocardial infarction and other problems. Pt seen in her room around 1700. PCI RCA performed today. No chest pain. Experiencing some nausea. No fever. No cough. No urinary symptoms. Physical Exam 2 Vital Signs (Past 24 Hours): Last Vital Signs Temp 36.7 C 04/30/18 20:20 Pulse 81 04/30/18 20:20 Resp 18 04/30/18 20:20 BP 106/73 04/30/18 20:20 Pulse Ox 91 04/30/18 20:20 Constitutional: no acute distress Respiratory: no respiratory distress Auscultation: lungs clear to auscultation bilaterally Cardiovascular: Rate/Rhythm: regular rate and regular rhythm Heart Sounds: no gallop, no murmur and no cardiac rub Vessels: no JVD Extremities: no calf tenderness and no edema Gastrointestinal (Abdomen): normal bowel sounds, soft, nontender, no hepatosplenomegaly Musculoskeletal: Extremities: + upper extremity abnormal to inspection (right radial cath side without bleeding or hematoma; wrist compression band applied) Skin: no rashes, warm and dry Psychiatric: Orientation: alert and oriented x 3 Results & Data Laboratory Results Short CBC 04/30/18 Range/Units 06:42 WBC 14.02 H (4.8-10.8) K/uL Hgb 15.1 (12.0-16.0) g/dL Hct 45.4 (37-47) % Plt Count 281 (130-400) K/uL BMP 04/30/18 06:42 Sodium 140 Potassium 3.4 L Chloride 105 Carbon Dioxide 28 BUN 26 H Creatinine 1.19 Glucose 101 H Calcium 8.6
[2018-05-01] MEDS: LEVOTHYROXINE SODIUM 150 MCG TABLET PO SCH (06:02)
[2018-05-01 08:01] LABS: BUN Creatinine Ratio 22.9 (10-20); Calcium 7.9 mg/dl (8.5-10.1); Creatinine Clr Calc Pharmacy 46.9 ml/min; Est GFR (African American) 65.5; Est GFR (Non-African American) 56.5; Potassium 3.7 mmol/L (3.5-5.1)
[2018-05-01] MEDS: TICAGRELOR 90 MG TAB PO SCH (08:17)
[2018-05-01] MEDS: ATORVASTATIN 40 MG TAB PO SCH (08:17)
[2018-05-01] MEDS: METOPROLOL TARTRATE 25 MG TAB PO SCH (08:17)
[2018-05-01] MEDS: ASPIRIN 81 MG ECTAB PO SCH (08:17)
[2018-05-01] MEDS: CHOLECALCIFEROL 1,000 UNITS TAB PO SCH (08:17)
[2018-05-01] MEDS: PANTOprazole 40 MG TAB PO SCH (08:17)
[2018-05-01] MEDS: TRIAMTERENE/HCTZ 37.5/25MG TAB PO SCH (08:18)
[2018-05-01] MEDS: LISINOPRIL 2.5 MG TAB PO SCH (08:18)
--- NOTE | 2018-05-01 10:46 | Cardiology Progress Note ---
Date of Service May 01, 2018 Assessment & Plan (1) Non-ST elevated myocardial infarction (non-STEMI): Culprit vessel (LAD) treated with a drug-eluting stent implantation. Drug -eluting stent implanted to the right coronary artery 04/30/18. No complications. Continue dual antiplatelet therapy uninterrupted for minimum of 1 year post PCI. Continue beta-johnna, statin, LIBAN inhibitor as previously ordered. Will provide patient for a prescription for sublingual nitroglycerin at the time of discharge. I will contact my office to arrange outpatient cardiology follow-up in 2 weeks. (2) Dyslipidemia: Tolerating high intensity statin therapy. Transition from simvastatin to atorvastatin during hospitalization. (3) Hypertension: (4) History of pulmonary embolism: (5) Ischemic cardiomyopathy: Diltiazem discontinued. Patient tolerating beta-johnna therapy and LIBAN inhibitor. Appears euvolemic/compensated. Subjective Patient seen and examined at the bedside. Feeling well from a cardiovascular perspective. Notes mild right wrist and right shoulder soreness. Discomfort is positional. Denies chest heaviness or tightness. No shortness of breath, palpitations, lightheadedness, dizziness, syncope, or near syncope. Anxious for discharge. Offers no complaints at this time. Review of Systems All systems reviewed & are unremarkable except as noted in HPI & below Physical Exam 2 Vital Signs (Past 24 Hours): Last Vital Signs Temp 36.8 C 05/01/18 07:02 Pulse 84 05/01/18 08:00 Resp 16 05/01/18 07:02 BP 104/64 05/01/18 07:02 Pulse Ox 94 05/01/18 07:02 Physical Exam: General: NAD, AAO x3, well nourished. HEENT: Normocephalic. Atraumatic. Conjunctiva pink, no scleral icterus. Neck: No carotid bruits, the carotid upstrokes are brisk. No JVD. No HJR Heart: Regular normal S-1 and S-2 no S-3 or S-4 gallop. No murmurs or rub appreciated. PMI is not displaced. No RV heave. Lungs: Clear bilateral without rales , rhonchi, or wheeze. Abdomen: Normal bowel sounds. Soft. Nontender. No masses or organomegaly. No abdominal bruits. Extremities: Mild ecchymosis of the right anterior wrist. No clubbing, cyanosis, or edema. Pulses: radial=2/4, Dorsalis pedis =2/4, posterior tibial=2/ 4. Neuro: Cranial nerves grossly intact. No focal motor deficit.
--- NOTE | 2018-05-01 11:44 | Hospitalist Progress Note ---
Date of Service May 01, 2018 Assessment & Plan (1) Non-ST elevated myocardial infarction (non-STEMI): Presented with chest pain. Troponin 0.351 --> 3.340. Intially received aspirin, IV heparin, beta johnna. Cardiology consulted. Echo 04/28/18 showed segmental wall motion abnormalities involving apex and mid septum, LVEF 35-40%, grade I diastolic dysfunction. Cardiac cath by Dr. Ortega demonstrated 99% mid LAD lesion and 70% proximal RCA lesion. PCI of LAD lesion performed by Dr. Vera with drug-eluting stent 04/28/18. PCI of RCA lesion performed by Dr. Vera with drug-eluting stent 04/30/18. Discharge on aspirin, ticagrelor, metoprolol, lisinopril, statin. (2) Ischemic cardiomyopathy: LVEF by echo = 35-40%. No pulmonary edema on chest x-ray. Discharge on lisinopril and metoprolol succinate. (3) Hypertension: Discharge on lisinopril and metoprolol succinate. (4) Dyslipidemia: LDL-c = 45. Switched from simvastatin to atorvastatin in light of non-STEMI. (5) Hypothyroidism: Continue levothyroxine. (6) DVT prophylaxis: Received IV heparin. Ambulating. (7) Discharge planning issues: Discharge to home. Primary care follow-up with Dr. Winchester. Follow-up with [facility]. Subjective Recheck for myocardial infarction and other problems. Pt seen in her room around 1700. PCI RCA performed yesterday. Doing well. No chest pain or SOB. No fever. No cough. No nausea or vomiting. No urinary symptoms. Physical Exam 2 Vital Signs (Past 24 Hours): Last Vital Signs Temp 36.6 C 05/01/18 10:46 Pulse 82 05/01/18 10:46 Resp 19 05/01/18 10:46 BP 114/70 05/01/18 10:46 Pulse Ox 94 05/01/18 10:46 Constitutional: no acute distress Respiratory: no respiratory distress Auscultation: lungs clear to auscultation bilaterally Cardiovascular: Rate/Rhythm: regular rate and regular rhythm Heart Sounds: no gallop, no murmur and no cardiac rub Vessels: no JVD Extremities: no calf tenderness and no edema Gastrointestinal (Abdomen): normal bowel sounds, soft, nontender, no hepatosplenomegaly Skin: no rashes, warm and dry Psychiatric: Orientation: alert and oriented x 3
--- NOTE | 2018-05-06 07:58 | Discharge Summary ---
Date of Service May 06, 2018 Admission HPI Per Admitting Provider This is a 73-year-old female with past medical history significant for hypothyroidism, hyperlipidemia, hypertension, retinal vein occlusion of right eye, GERD, history of vitamin B12 deficiency, chronic kidney disease stage III, osteoporosis, history of pulmonary embolism, first time was in 1999 after being on hormone treatment and second time was in 2009, postoperative status post right knee arthroplasty. In October 2014, after status post left knee arthroplasty, she had hematoma and an IVC filter was placed and at that time after that she developed retroperitoneal hematoma and IVC filter was removed and because both the PEs were provoked, Coumadin was taken off and she is no longer on Coumadin and doing okay. Presents with chest pain today. The patient woke up in the middle of the night with chest pain, retrosternal area, radiating to left shoulder and left arm, was about 10/10 in severity. She took 4 aspirins and the pain started to subside. By the time EMS came, the pain was almost gone. She just had a pressure like feeling now and brought in here. Currently, hemodynamically stable. During the episode she was sweating, but denies any nausea or any dizziness. Otherwise, until this she was doing okay. She can climb steps and walk without any sob or any chest pain. No headaches, no blurred visions, no earaches, no runny nose, no sore throat, no difficulty swallowing, no cough. Sleeps okay. No night sweats. No recent significant weight gain or weight loss. No abdominal pain. Normal bowel and bladder movements. No blood in the stools or black stools. Currently, resting comfortably and hemodynamically stable. The patient received nitro paste and IV Lopressor in the ER.Patient lives with the daughter Admission Exam Per Admitting Provider GENERAL: The patient is of moderate build, not in acute distress. VITAL SIGNS: Temperature 36.5, pulse 83, respiratory rate 16, blood pressure 144/90, oxygen 94% on room air. HEENT: No pallor, no icterus. Pupils equal, round, and reactive to light. NECK: No JVD, no neck masses, no carotid bruit. CARDIOVASCULAR: S1, S2 heard, regular rate and rhythm, no murmur, no gallop. RESPIRATORY SYSTEM: Normal AP diameter. No accessory muscle use. No wheezing, no crackles. ABDOMEN: Soft, bowel sounds present. Nontender. No distention. CENTRAL NERVOUS SYSTEM: Cranial nerves II-XII grossly intact. Nonfocal. EXTREMITIES: No edema, no erythema. Principal Diagnosis non ST elevation myocardial infarction ischemic cardiomyopathy Discharge Data Allergies Allergy/AdvReac Type Severity Reaction Status Date / Time imipenem Allergy Severe ANAPHYLAXIS Verified 04/28/18 01:47 Sulfa (Sulfonamide Allergy Severe hives,sob, Verified 04/28/18 01:47 Antibiotics) can take Dyazide zoledronic acid AdvReac Mild NAUSEA AND Verified 04/28/18 01:47 VOMITING Consultations 04/28/18 04:43 Consult Case Management - Discharge Planning Routine 04/28/18 08:00 Consult Cardiology Routine 04/28/18 09:10 Consult Cardiac Catheterization Stat Procedures Performed Operation Date: 04/28/18 09:15 Actual Procedures p Drug Eluting Stent SGl Vessel - Jose Antonio Vera MD s Cath, Left with Cors and Vent - Charles Ortega, DO s Cineradiography w/Routine Exam - Charles Ortega DO s Fraction Flow [place] SGL Ves - Jose Antonio Vrea MD Operation Date: 04/30/18 09:30 Actual Procedures p Drug Eluting Stent SGl Vessel - Jose Antonio Vera MD s Cineradiography w/Routine Exam - Jose Antonio Vera MD Ordered Studies 04/27/18 23:27 CT angio chest PE protocol Urgent 04/28/18 09:23 CL Cath Imgs for PACS use only Urgent 04/30/18 12:08 CL Cath Imgs for PACS use only Routine Hospital Course (1) Non-ST elevated myocardial infarction (non-STEMI): Presented with chest pain. Troponin 0.351 --> 3.340. Initially received aspirin, IV heparin, beta johnna. Cardiology consulted. Echo 04/28/18 showed segmental wall motion abnormalities involving apex and mid septum, LVEF 35-40%, grade I diastolic dysfunction. Cardiac cath by Dr. Ortega demonstrated 99% mid LAD lesion and 70% proximal RCA lesion. PCI of LAD lesion performed by Dr. Vera with drug-eluting stent 04/28/18. PCI of RCA lesion performed by Dr. Vera with drug-eluting stent 04/30/18. Discharged on aspirin, ticagrelor, metoprolol, lisinopril, statin. (2) Ischemic cardiomyopathy: LVEF by echo = 35-40%. No pulmonary edema on chest x-ray. Discharged on lisinopril and metoprolol succinate. (3) Hypertension: Discharged on lisinopril and metoprolol succinate. (4) Dyslipidemia: LDL-c = 45. Switched from simvastatin to atorvastatin in light of non-STEMI. (5) Hypothyroidism: Continue levothyroxine. (6) DVT prophylaxis: Received IV heparin. Ambulating. (7) Discharge planning issues: Discharge to home. Primary care follow-up with Dr. Winchester. Follow-up with [facility]. Total Time Total Time Spent Total Time Spent (In Minutes): 40 Discharge Plan Discharge Items Patient Disposition: Home - Self-Care Reason For Visit: chest pain Discharge Diagnosis: myocardial infarction (heart attack) Condition: Good Discharge Goals: Decrease discomfort and Improve disease control Activity: As commented below Activity Comment: gradually increase activity as tolerated; rest if tired or short of breath Non-emergency contact: Primary Care Provider, Hospitalist and Director Of Collections And Archives Call non-emergency contact if: you have any medication questions and your symptoms worsen Follow-up/Referrals: Charles Ortega DO [Director Of Collections And Archives] - (Office will contact you with follow-up appointment.) Irene Winchester DO [Primary Care Provider] - (05/06/2018 2:20 PM Nicol Ferguson MD (covering for Dr. Winchester)) Diet: Heart Healthy Addtl Provider Instructions: OTHER INSTRUCTIONS: Do not stop any of your heart medicines (especially aspirin, Brilinta, and metoprolol) unless your Director Of Collections And Archives says OK. Best not to take ibuprofen or naproxen for pain. Extra Strength Tylenol as directed is OK. Seek medical attention if you have: * temperature above 101 * chest pain or trouble breathing * abdominal pain, nausea, vomiting * diarrhea, dark stools or bloody stools * any unanswered questions or concerns Call 911 if symptoms are severe. Call if you have any questions or problems. My cell # is [phone]. You can also reach a [facility] hospitalist on duty at [facility] 24 hours a day by calling [phone]. Prescriptions: New atorvastatin 80 mg tablet 80 mg PO DAILY Qty: 30 RF: 11 nitroglycerin [Nitrostat] 0.4 mg tablet, sublingual 0.4 mg Sublingual Q5M Qty: 25 RF: 3 metoprolol succinate 25 mg tablet extended release 24 hr 25 mg PO BID Qty: 60 RF: 11 lisinopril 2.5 mg tablet 2.5 mg PO DAILY Qty: 30 RF: 11 ticagrelor [Brilinta] 90 mg tablet 90 mg PO BID Qty: 60 RF: 11 Continue fexofenadine 180 mg Tablet 180 mg PO DAILY RF: 0 aspirin 81 mg Tablet,Delayed Release (Dr/Ec) 81 mg PO DAILY RF: 0 ranitidine HCl 150 mg Tablet 150 mg PO BID RF: 0 triamterene-hydrochlorothiazid 75-50 mg Tablet 0.5 tab PO DAILY RF: 0 omeprazole 20 mg Tablet,Delayed Release (Dr/Ec) 20 mg PO DAILY RF: 0 cholecalciferol (vitamin D3) [Vitamin D3] 2,000 unit Tablet 2,000 unit PO DAILY RF: 0 levothyroxine 150 mcg Capsule 150 mcg PO DAILY RF: 0 pumpkin seed extract-soy germ [Azo Bladder Control] 300 mg Capsule 1 cap PO BID RF: 0 Discontinued diltiazem HCl [Cartia XT] 300 mg Capsule,Extended Release 24hr 300 mg PO HS RF: 0 simvastatin 20 mg Tablet 20 mg PO PM RF: 0 Stand-Alone Forms: [facility] Discharge Orders: Discharge Order (Routine); Ordered 05/01/18 Ordered By: Alfonso Bustos Admission Data Admit Date/Time: 04/28/18 02:38 Attending Provider: Alfonso Bustos Admit Provider: Darrell Curry Primary Care Provider: Irene Winchester Other Providers: Celestino Montano ; Jef Rocha ; Diego Rivera ; Charles Ortega ; Stevie Miranda ; Mykel Orellana ; Nikole Aguilar ; Lori Parekh Service: Telemetry Other Interventions: Discharge Summary Assessment (RN) Last Done: 05/01/18 11:45 DC Date/Time DO NOT enter until pt leaves facility: 05/01/18 13:02
== END 2018-05-01 13:02 | disposition home or self-care (01) | DRG 247 ==
LOC: ED 23:09 → 2S 04-28 02:38
DX: Z86.711 Personal history of pulmonary embolism; K21.9 Gastro-esophageal reflux disease without esophagitis; E03.9 Hypothyroidism, unspecified; E78.5 Hyperlipidemia, unspecified; N18.3 Chronic kidney disease, stage 3 (moderate); I25.5 Ischemic cardiomyopathy; Z86.718 Personal history of other venous thrombosis and embolism; I10 Essential (primary) hypertension; I21.4 Non-ST elevation (NSTEMI) myocardial infarction

== ENCOUNTER 2018-05-15 12:10 | Observation (INO) ==
--- NOTE | 2018-05-15 12:35 | XRay Report ---
XR chest 1V portable CLINICAL HISTORY: Atypical chest pain COMPARISON STUDY: 04/30/2018 FINDINGS: The heart is borderline enlarged. There is elevation/eventration of the hemidiaphragms. The re is no acute parenchymal consolidation. There is no failure. There are no pleural effusions. Minor left basilar atelectasis is again evident.[ IMPRESSION: No active disease in the chest. Electronically signed by: Anthony Aponte M.D. 05/15/2018 12:34 PM
[2018-05-15 12:46] LABS: Basophils # (auto) 0.08 K/uL (0-0.2); Basophils % (auto) 0.9 %; Eosinophils # (auto) 0.37 K/uL (0-0.5); Hematocrit (blood only) 43.8 % (37-47); Hemoglobin 14.2 g/dL (12.0-16.0); Immature Granulocytes # (auto) 0.04 K/uL (0.00-0.02); Immature Granulocytes % (auto) 0.4 %; Lymphocytes # (auto) 2.66 K/uL (1.2-3.4); Lymphocytes % (auto) 28.7 %; Mean Corpuscular Hgb Conc 32.4 g/dL (32-36); Mean Corpuscular Volume 96.1 fL (80-100); Mean Platelet Volume 10.1 fL (7.4-10.4); Monocytes # (auto) 0.82 K/uL (0.11-0.59); Monocytes % (auto) 8.9 %; Neutrophils # (auto) 5.29 K/uL (1.4-6.5); Neutrophils % (auto) 57.1 %; Platelet Count 421 K/uL (130-400); RDW Coefficient of Variation 14.4 % (11.5-14.5); RDW Standard Deviation 50.7 fL (36.4-46.3); Red Blood Count 4.56 M/uL (4.2-5.4); White Blood Count 9.26 K/uL (4.8-10.8)
[2018-05-15 13:03] LABS: Albumin Level 3.1 gm/dl (3.4-5.0); Calcium 8.5 mg/dl (8.5-10.1); Creatinine Clr Calc Pharmacy 52.6 ml/min; Est GFR (African American) 69.8; Est GFR (Non-African American) 60.2; Magnesium 1.7 mg/dl (1.8-2.4)
[2018-05-15 13:08] LABS: Albumin Globulin Ratio 0.9 (0.9-2); Bilirubin,Total 0.3 mg/dl (0.2-1); Globulin 3.3 gm/dl (2.5-4.0); Phosphorus 3.2 mg/dl (2.5-4.9); Total Protein 6.4 gm/dl (6.4-8.2); Troponin I 0.016 ng/ml (0-0.045)
[2018-05-15] MEDS ORDERED: IBUPROFEN 600 MG TAB PO ONE (13:33)
[2018-05-15] MEDS ORDERED: MAGNESIUM OXIDE 400 MG TAB PO STA (13:34)
--- NOTE | 2018-05-15 13:37 | Cardiology Consultation ---
Date of Consultation May 15, 2018 Assessment & Plan (1) Chest pain: currently asymptomatic initial troponin negative echo done at bedside shows a new anterior pericardial effusion which does fit her symptom pattern will cont to trend troponin agree with CTA to r/o PE as well will start treatment for acute pericarditis including ibuprofen and colchicine steroids should be avoided at all costs in this clinical setting if trop negative x 3 and patient symptom free, likely d/c to home in AM (2) CAD (coronary artery disease): Stable trop negative and will trend cont asa, Brilinta, atorvastatin, lisinopril and metoprolol (3) Ischemic cardiomyopathy: improving at only 2 weeks s/p PCI, very positive finding will cont current outpatient medical regimen History of Present Illness Reason for Consultation: Chest pain Requesting Physician: Dr. Chaney Attending Physician: Dr. Montano History of Present Illness Ms. Moran is a very pleasant 73 yo woman who presented for her regularly scheduled outpatient follow up with Dr. Ortega of our cardiology practice. Admitted to [facility] 04/28/18 with NSTEMI. Taken to the cardiac catheterization lab 04/29/18. Coronary angiography demonstrated a 99% mid LAD, and a 70% proximal RCA. LAD was treated with a drug-eluting stent. The proximal RCA noted to be significant per FFR. She was taken back to the labor mediator on 04/30/18 for RCA intervention. After her initial LAD intervention, patient developed chest discomfort and nausea. This recurred to a mild extent after implantation of her RCA stent. Patient was feeling well up until approximately 2 days ago when she developed substernal chest discomfort radiating to her back and right shoulder. Discomfort has waxed and waned over the past 2 days. At times severity up to 4/ 10 which it is currently. ECG demonstrates diffuse T-wave abnormality suggestive of ischemia. The inferior T-wave valve abnormality is more pronounced when compared to her prior ECG. Patient was treated with 1 sublingual nitroglycerin with marked improvement of her chest and right shoulder discomfort. Feels pain may be more pronounced when lying on her right side although is not fully relieved. It is not reproducible with palpation or inspiration. No fever, chills. Denies orthopnea, PND, or lower extremity edema. Currently in ED, pt is symptom free. Allergies Allergy/AdvReac Type Severity Reaction Status Date / Time imipenem Allergy Severe ANAPHYLAXIS Verified 05/15/18 13:43 Sulfa (Sulfonamide Allergy Severe hives,sob, Verified 05/15/18 13:43 Antibiotics) can take Dyazide daptomycin AdvReac Severe Anaphylaxis Unverified 05/15/18 13:43 zoledronic acid AdvReac Mild NAUSEA AND Verified 05/15/18 13:43 VOMITING Home Medications Home Medications Medication Instructions Recorded Confirmed Type aspirin 81 mg PO DAILY 04/28/18 04/28/18 History cholecalciferol (vitamin D3) 2,000 unit PO DAILY 04/28/18 04/28/18 History [Vitamin D3] fexofenadine 180 mg PO DAILY 04/28/18 04/28/18 History levothyroxine 150 mcg PO DAILY 04/28/18 04/28/18 History omeprazole 20 mg PO DAILY 04/28/18 04/28/18 History pumpkin seed extract-soy germ [Azo 1 cap PO BID 04/28/18 04/28/18 History Bladder Control] ranitidine HCl 150 mg PO BID 04/28/18 04/28/18 History metoprolol succinate 25 mg PO BID #60 tab 05/01/18 Rx nitroglycerin [Nitrostat] 0.4 mg SUBLINGUAL Q5M #25 tab 05/01/18 Rx ticagrelor [Brilinta] 90 mg PO BID #60 tab 05/01/18 Rx acetaminophen [Tylenol Extra 1,000 mg PO QAM 05/15/18 05/15/18 History Strength] atorvastatin 80 mg PO QAM 05/15/18 05/15/18 History lisinopril 2.5 mg PO QAM 05/15/18 05/15/18 History Patient History Social History marital status: Current Living Situation: Family Current Living Situation Comment: Daughter and son in law current occupational status: employed Feels Safe at Home: Yes Smoking Status: Never smoker Hx Alcohol Use: No Hx Substance Use: No Beliefs That Will Affect Care: Islam Preferred Language: Guatemalan Review of Systems As per HPI, otherwise, full review of systems completed and unremarkable. Physical Exam 2 Vital Signs (Past 24 Hours): Last Vital Signs Temp 36.4 C L 05/15/18 12:15 Pulse 85 05/15/18 12:30 Resp 16 05/15/18 12:30 BP 158/91 H 05/15/18 12:30 Pulse Ox 97 05/15/18 12:30 Physical Exam: General: Awake, alert and oriented x 3. No acute distress. HEENT: Normocephalic, atraumatic. Pupils equal, round and reactive to light and accommodation. Extraocular muscles are intact. Anicteric sclera. Moist mucous membranes. Neck: No JVD. No bruit. Cardiovascular: Regular. Positive S-4. Normal S-1 and S-2. No S-3. No murmurs or rubs. Pulmonary: Clear to auscultation B/L. No rales, rhonchi or wheezing Abdomen: Bowel sounds x 4, soft. No rebound, guarding or tenderness. No organomegaly. Extremities: No clubbing, cyanosis or edema. +2 pedal pulses bilaterally. Skin: Warm and dry.
--- NOTE | 2018-05-15 13:57 | CT Scan Report ---
CT angio chest PE protocol CT DOSE: 280.30 mGy.cm HISTORY: Chest pain. Dyspnea. Chest Pain, eval for PE TECHNIQUE: Multiaxial CT images of the chest were performed following the intravenous administration of contrast to evaluate the pulmonary arteries. Maximal intensity projection images were also obtaine d. A dose lowering technique was utilized adhering to the principles of ALARA. COMPARISON STUDY: None. FINDINGS: There is a normal caliber thoracic aorta with no evidence for dissection. There is no evide nce for pulmonary embolus. No pleural effusions. No pneumothorax. The liver and spleen are unremarkab le. No mediastinal or hilar lymphadenopathy. The central airways are patent. The lungs are clear. Fix ed hiatal hernia. Large left renal cyst measuring 8 cm. IMPRESSION: 1. No evidence for pulmonary embolus. 3. Fixed hiatal hernia. 4. 8 cm left renal cyst. 2. Lungs are clear. The above report was generated using voice recognition software. It may contain grammatical, syntax or spelling errors. Electronically signed by: Mykel Cohn M.D. 05/15/2018 1:55 PM
[2018-05-15] MEDS: COLCHICINE 0.6 MG TAB PO SCH (14:44)
--- NOTE | 2018-05-15 15:02 | History & Physical Report ---
Date of Service May 15, 2018 Assessment & Plan (1) Chest pain: (2) Pericardial effusion: Hx NSTEMI and AMIE to LAD on 04/29/18 and AMIE to RCA on 04/30/18. Reported chest pain and R shoulder pain x 2 days. Seen in cardiology clinic with Dr Ortega today and had noted diffuse T wave abnormality and more pronounced T wave inversion. Had relief of symptoms with 1 SL nitro In ER pt asymptomatic Vitals stable. EKG sinus rhythm with diffuse T wave inversion. Initial troponin negative. CTA negative for PE. Dr Montano saw pt in ER and bedside echo with reported new anterior pericardial effusion suspect pericarditis -recommends ibuprofen 800mg TID and cochine 0.6mg BID -trend troponin -continue ASA, brilinta, atrovastatin, metoprolol -nitro prn CP and repeat EKG -will trend troponin -cardiology on board (3) CAD (coronary artery disease): Hx NSTEMI and AMIE to LAD on 04/29/18 and AMIE to RCA on 04/30/18 No current CP or SOB. Initial troponin negative -trend troponin -continue ASA, brilinta, atrovastatin, metoprolol (4) Ischemic cardiomyopathy: last admission echo: EF: 35-40% (5) Hypomagnesemia: Magnesium: 1.7 -replace and monitor (6) Hypertension: Stable -continue metoprolol, lisinopril (7) Dyslipidemia: -continue atorvastatin (8) Hypothyroidism: -continue levothyroxine (9) GERD (gastroesophageal reflux disease): -continue PPI, may need to increase to twice daily if GI side effects from NSAIDs DVT Prophylaxis -Lovenox SQ Full Code as per discussion with pt Follows with Dr Winchester for routine care Pt was seen with Dr Arias. See addendum History of Present Illness Chief Complaint: CP Primary Care Provider: Irene Winchester, Pt is 73 y/o F with PMH HTN, HLD, hypothryoidism, GERD, CKD III, h/o PE with IVC filter which has since been removed, CAD s/p NSTEMI and AMIE to LAD on and RCA on 04/30/18 presented to ER from cardiology office for CP. Pt reports past 2 days having some mid chest and R shoulder discomfort. She thought she may have pulled a muscle. Dr Ortega performed EKG with reported diffuse T wave abnormality and more pronounced T wave inversion. She had 1 SL nitro with relief of R shoulder pain and CP. During last hospitalization 04/28/18-05/01/18 echo with EF: 35-40%. Denies fever/chills, diaphoresis, N/V/D/C, MAN, dizziness, syncope, vision changes, neck pain, SOB, orthopnea, palpitations, cough, sore throat, choking, otalgia, rhinorrhea, abdominal pain, paresthesias, weakness, extremity weakness, extremity edema, rashes, urinary symptoms. Seen in ER by Dr Montano -cardiology and had echo performed showing pericardial effusion. Allergies Allergy/AdvReac Type Severity Reaction Status Date / Time imipenem Allergy Severe ANAPHYLAXIS Verified 05/15/18 13:43 Sulfa (Sulfonamide Allergy Severe hives,sob, Verified 05/15/18 13:43 Antibiotics) can take Dyazide daptomycin AdvReac Severe Anaphylaxis Unverified 05/15/18 13:43 zoledronic acid AdvReac Mild NAUSEA AND Verified 05/15/18 13:43 VOMITING Home Medications Home Medications Medication Instructions Recorded Confirmed Type aspirin 81 mg PO HS 04/28/18 05/15/18 History cholecalciferol (vitamin D3) 2,000 unit PO QAM 04/28/18 05/15/18 History [Vitamin D3] fexofenadine 180 mg PO DAILY PRN 04/28/18 05/15/18 History levothyroxine 150 mcg PO QAM 04/28/18 05/15/18 History omeprazole 20 mg PO QAM 04/28/18 05/15/18 History pumpkin seed extract-soy germ [Azo 1 cap PO BID 04/28/18 05/15/18 History Bladder Control] ranitidine HCl 150 mg PO BID 04/28/18 05/15/18 History metoprolol succinate 25 mg PO BID #60 tab 05/01/18 05/15/18 Rx nitroglycerin [Nitrostat] 0.4 mg SUBLINGUAL Q5M #25 tab 05/01/18 05/15/18 Rx ticagrelor [Brilinta] 90 mg PO BID #60 tab 05/01/18 05/15/18 Rx acetaminophen [Tylenol Extra 1,000 mg PO QAM 05/15/18 05/15/18 History Strength] atorvastatin 80 mg PO QAM 05/15/18 05/15/18 History lisinopril 2.5 mg PO QAM 05/15/18 05/15/18 History Past Med/Surg History Medical History CAD (coronary artery disease) (Chronic) Ischemic cardiomyopathy (Chronic) Hypertension (Chronic) Hypothyroidism (Chronic) Dyslipidemia (Chronic) History of DVT (deep vein thrombosis) (Chronic) History of pulmonary embolism (Chronic) GERD (gastroesophageal reflux disease) (Chronic) Rupture of left posterior tibialis tendon (Resolved) Acute head injury (Resolved) Gastroenteritis (Resolved) Surgical History History of cardiac cath (Chronic) Status post hysterectomy (Resolved) Status post right knee replacement (Resolved) S/P IVC filter (Resolved) S/P BSO (status post bilateral salpingo-oophorectomy) (Resolved) Social History marital status: Current Living Situation: Family Current Living Situation Comment: Daughter and son in law current occupational status: employed Other Information That Helps Us Care for You: No Feels Safe at Home: Yes Safety Concerns: Feels Safe At This Time Smoking Status: Never smoker Do You Dip or Chew Tobacco: No Second Hand Exposure: No Tobacco Cessation Education Requested by Patient: No Hx Alcohol Use: No Hx Substance Use: No Beliefs That Will Affect Care: None Preferred Language: Luxembourgish Communication Ability: Effective Senior Web Developer Required: No Review of Systems All systems reviewed & are unremarkable except as noted in HPI & below Physical Exam 2 Vital Signs (Past 24 Hours): Last Vital Signs Temp 36.4 C L 05/15/18 12:15 Pulse 77 05/15/18 13:38 Resp 18 05/15/18 13:38 BP 144/76 H 05/15/18 13:38 Pulse Ox 96 05/15/18 13:38 Physical Exam: General: no acute distress, WDWN Head: normocephalic, atraumatic Eyes: PERRL, EOM's intact, conjunctiva non-injected, anicteric ENT: normal inspection external ears, nose, mucous membranes moist Neck: supple, trachea midline Lungs: clear, no respiratory distress, no wheezing/rhonchi/rales CV: RRR, no murmur, no pretibial edema Abd: normal BS, soft, non-tender Ext: no cyanosis, no calf tenderness Neuro: A&O x 3, no focal deficits noted, normal affect Skin: warm, dry Results & Data Laboratory Results Short CBC 05/15/18 Range/Units 12:30 WBC 9.26 (4.8-10.8) K/uL Hgb 14.2 (12.0-16.0) g/dL Hct 43.8 (37-47) % Plt Count 421 H (130-400) K/uL BMP 05/15/18 12:30 Sodium 143 Potassium 4.0 Chloride 114 H Carbon Dioxide 27 BUN 17 Creatinine 0.94 Glucose 94 Calcium 8.5 Cardiac Enzymes 05/15/18 Range/Units 12:30 Troponin I 0.016 (0-0.045) ng/ml Liver Function 05/15/18 Range/Units 12:30 Total Bilirubin 0.3 (0.2-1) mg/dl AST 8 L (15-37) U/L ALT 22 (12-78) U/L Alkaline Phosphatase 71 (45-117) U/L Albumin 3.1 L (3.4-5.0) gm/dl Diagnostic Findings CXR: IMPRESSION: No active disease in the chest. CTA CHEST: IMPRESSION: 1. No evidence for pulmonary embolus. 2. Lungs are clear 3. Fixed hiatal hernia. 4. 8 cm left renal cyst. ECG Rate (beats per minute): 87 Rhythm: normal sinus Findings: + T-wave inversion (diffuse) Supervising Physician Co-Signing Physician Notes 73 y/o F with PMH HTN, HLD, hypothryoidism, GERD, CKD III, h/o PE with IVC filter which has since been removed, CAD s/p NSTEMI and AMIE to LAD on 04/29/18 and RCA on 04/30/18 presented to ER from cardiology office for chest pain. EKG done at the cardiology office reported diffuse T wave abnormality and more pronounced T wave inversion. ECHO done in the ER showed anterior, pericardial effusion. starting on treatment for acute pericarditis including ibuprofen and colchicine by cardiology. Follow troponin trend. Monitor in telemetry. MD [place]
[2018-05-15] MEDS ORDERED: NITROGLYCERIN SL 0.4 MG/TAB TAB SL PRN (16:19)
[2018-05-15] MEDS ORDERED: MAGNESIUM SULFATE / D5W 1 GM/100 ML BAG IV ONE (16:30)
[2018-05-15 18:24] LABS: Troponin I 0.018 ng/ml (0-0.045)
[2018-05-15 19:02] LABS: Partial Thromboplastin Time 25.5 Seconds (21.0-31.0); Prothrombin Time 10.1 Seconds (9.0-12.0)
[2018-05-15 19:04] LABS: Est GFR (African American) 68.9; Est GFR (Non-African American) 59.4
[2018-05-15 19:17] LABS: Hematocrit (blood only) 40.8 % (37-47); Hemoglobin 13.2 g/dL (12.0-16.0); Mean Corpuscular Hgb Conc 32.4 g/dL (32-36); Mean Corpuscular Volume 94.9 fL (80-100); Mean Platelet Volume 9.9 fL (7.4-10.4); Platelet Count 371 K/uL (130-400); RDW Coefficient of Variation 14.5 % (11.5-14.5); RDW Standard Deviation 49.5 fL (36.4-46.3); White Blood Count 10.28 K/uL (4.8-10.8)
--- NOTE | 2018-05-15 19:45 | Emergency Department Note ---
Entered by Chelsey Cuellar acting as a scribe for History of Present Illness General Chief complaint: Chest Pain Time Seen by Provider: 05/15/18 12:13 Source: patient and other (son) History of Present Illness Onset (ago): day(s) (yesterday) Location: chest (center) Radiation: other (right shoulder) Pain Consistency: + constant (prior to nitro) and + now resolved (after nitro en route) Quality: + aching and + other (chest pain) Associated symptoms: no shortness of breath Treatments prior to arrival: other (nitro) The patient is a 73 year old white female w/ PMHx of IVS filter, HTHN, HLD, hypothyroid, NSTEMI, CAD status post PCI to RCA and LAD who presents to the ED w / CC of chest pain beginning yesterday. She is accompanied by her son who reports the patient went to Dr. Ortega, Cardiology today for a regular follow up appointment and he recommended she go to the ED as he was concerned about EKG changes. She reports she was lifting things yesterday when she suddenly felt chest pain with radiation to her arm however, she thought she had just pulled a muscle. She notes the pain went from the center of her chest with radiation to her right shoulder. She describes it as a constant and an ache. Pt denies any SOB and reports the nitro she received en route via EMS completely resolved her pain. Her son reports the patient had 3 stents placed 2 weeks ago. Home Medications Home Medications Medication Instructions Recorded Confirmed Type aspirin 81 mg PO HS 04/28/18 05/15/18 History cholecalciferol (vitamin D3) 2,000 unit PO QAM 04/28/18 05/15/18 History [Vitamin D3] fexofenadine 180 mg PO DAILY PRN 04/28/18 05/15/18 History levothyroxine 150 mcg PO QAM 04/28/18 05/15/18 History omeprazole 20 mg PO QAM 04/28/18 05/15/18 History pumpkin seed extract-soy germ [Azo 1 cap PO BID 04/28/18 05/15/18 History Bladder Control] ranitidine HCl 150 mg PO BID 04/28/18 05/15/18 History metoprolol succinate 25 mg PO BID #60 tab 05/01/18 05/15/18 Rx nitroglycerin [Nitrostat] 0.4 mg SUBLINGUAL Q5M #25 tab 05/01/18 05/15/18 Rx ticagrelor [Brilinta] 90 mg PO BID #60 tab 05/01/18 05/15/18 Rx acetaminophen [Tylenol Extra 1,000 mg PO QAM 05/15/18 05/15/18 History Strength] atorvastatin 80 mg PO QAM 05/15/18 05/15/18 History lisinopril 2.5 mg PO QAM 05/15/18 05/15/18 History Allergies Allergy/AdvReac Type Severity Reaction Status Date / Time imipenem Allergy Severe ANAPHYLAXIS Verified 05/15/18 13:43 Sulfa (Sulfonamide Allergy Severe hives,sob, Verified 05/15/18 13:43 Antibiotics) can take Dyazide daptomycin AdvReac Severe Anaphylaxis Unverified 05/15/18 13:43 zoledronic acid AdvReac Mild NAUSEA AND Verified 05/15/18 13:43 VOMITING Past Med/Surg History Medical History CAD (coronary artery disease) (Chronic) Ischemic cardiomyopathy (Chronic) Hypertension (Chronic) Hypothyroidism (Chronic) Dyslipidemia (Chronic) History of DVT (deep vein thrombosis) (Chronic) History of pulmonary embolism (Chronic) GERD (gastroesophageal reflux disease) (Chronic) Rupture of left posterior tibialis tendon (Resolved) Acute head injury (Resolved) Gastroenteritis (Resolved) Surgical History History of cardiac cath (Chronic) Status post hysterectomy (Resolved) Status post right knee replacement (Resolved) S/P IVC filter (Resolved) S/P BSO (status post bilateral salpingo-oophorectomy) (Resolved) Social History marital status: Current Living Situation: Family Current Living Situation Comment: Daughter and son in law current occupational status: employed Other Information That Helps Us Care for You: No Feels Safe at Home: Yes Safety Concerns: Feels Safe At This Time Smoking Status: Never smoker Do You Dip or Chew Tobacco: No Second Hand Exposure: No Tobacco Cessation Education Requested by Patient: No Hx Alcohol Use: No Hx Substance Use: No Beliefs That Will Affect Care: None Preferred Language: Cymraes Communication Ability: Effective Detailer Furniture Required: No Review of Systems See HPI for pertinent positives & negatives. and A total of 10 systems reviewed and were otherwise negative Physical Exam Vital Signs Vital Signs - 24 hr 05/15/18 12:15 05/15/18 12:20 05/15/18 12:23 Temperature 36.4 C L Temperature Source Oral Sepsis Recent Fever Within 48 Hours No Sepsis New/Unexplained Change in Mental Status No Sepsis Action Taken by Nursing No Action Required Pulse Rate 87 87 Pulse Rate [Left Apical] Pulse Rhythm Regular Pulse Rhythm [Left Apical] Pulse Strength Normal Pulse Strength [Left Apical] Respiratory Rate 18 Respiratory Effort / Characteristics Non-Labored Spontaneous Respiratory Depth Normal Respiratory Pattern Regular Blood Pressure [Left Arm] Blood Pressure [Right Arm] Blood Pressure Mean [Left Arm] Blood Pressure Mean [Right Arm] Blood Pressure Position [Right Arm] Pulse Oximetry 97 98 Oxygen Delivery Method Room Air Room Air Room Air 05/15/18 12:30 05/15/18 13:38 05/15/18 15:00 Temperature Temperature Source Sepsis Recent Fever Within 48 Hours Sepsis New/Unexplained Change in Mental Status Sepsis Action Taken by Nursing Pulse Rate Pulse Rate [Left Apical] 85 77 71 Pulse Rhythm Pulse Rhythm [Left Apical] Regular Regular Regular Pulse Strength Pulse Strength [Left Apical] Normal Normal Normal Respiratory Rate 16 18 17 Respiratory Effort / Characteristics Non-Labored Spontaneous Non-Labored Spontaneous Non-Labored Spontaneous Respiratory Depth Normal Normal Normal Respiratory Pattern Regular Regular Regular Blood Pressure [Left Arm] Blood Pressure [Right Arm] 158/91 H 144/76 H 144/96 H Blood Pressure Mean [Left Arm] Blood Pressure Mean [Right Arm] 113 98 112 Blood Pressure Position [Right Arm] Lying Sitting Sitting Pulse Oximetry 97 96 96 Oxygen Delivery Method Room Air Room Air Room Air 05/15/18 16:00 05/15/18 16:19 Temperature 36.5 C Temperature Source Oral Sepsis Recent Fever Within 48 Hours Sepsis New/Unexplained Change in Mental Status Sepsis Action Taken by Nursing Pulse Rate 71 Pulse Rate [Left Apical] 76 Pulse Rhythm Pulse Rhythm [Left Apical] Pulse Strength Pulse Strength [Left Apical] Respiratory Rate 16 23 Respiratory Effort / Characteristics Respiratory Depth Respiratory Pattern Blood Pressure [Left Arm] 159/93 H Blood Pressure [Right Arm] Blood Pressure Mean [Left Arm] 115 Blood Pressure Mean [Right Arm] Blood Pressure Position [Right Arm] Pulse Oximetry 96 96 Oxygen Delivery Method Room Air GENERAL: Well appearing, well nourished, NAD, non-toxic. EYE EXAM: Normal conjunctiva. PERRL, no anisocoria and EOM's grossly intact w/o pain OROPHARYNX: Moist MM. NECK: Supple, no nuchal rigidity, no adenopathy, non-tender. No signs of meningismus LUNGS: Clear to auscultation. Normal chest wall mechanics. HEART: NSR, no MRG ABDOMEN: Abdomen soft, non-tender, normo-active bowel sounds, no masses, no rebound or guarding. BACK: No CVA TTP SKIN: No rashes and no bruising. UPPER EXTREMITIES: Upper extremities are grossly normal. LOWER EXTREMITIES: No pitting edema. No calf pain NEURO EXAM: A and O x3. GCS 15. Course 1216: Past medical records reviewed. The patient was evaluated in room C9, and a complete history and physical examination were performed. 1427: I reviewed the patient's case with FREDDIE Lara. [facility] Consultations Consultation #1: I reviewed the patient's case with FREDDIE Lara. The patient will be further evaluated by Jone Irizarry Hospitalist. Time: 14:27 Administered Medications Colchicine (Colcrys) 0.6 mg PO BID NANY Stop: 06/14/18 20:59 Last Admin: 05/15/18 14:44 Dose: 0.6 mg Discontinued Medications Magnesium Sulfate/Dextrose (Magnesium Sulfate / D5w) 1 gm in 100 mls @ 100 mls/ hr IV 1630 ONE Stop: 05/15/18 17:29 Last Infusion: 05/15/18 18:22 Dose: 0 mls/hr Admin: 05/15/18 16:57 Dose: 100 mls/hr Ibuprofen (Motrin) Confirm Administered Dose 600 mg PO .STK-MED ONE Stop: 05/15/18 13:34 Last Admin: 05/15/18 13:36 Dose: 600 mg Magnesium Oxide (Mag-Ox) 800 mg PO NOW STA Stop: 05/15/18 13:35 Last Admin: 05/15/18 14:44 Dose: 800 mg Medical Decision Making Medical Records Attestation: I reviewed the patient's medical records. Home Medications Current Medication List: was personally reviewed by me Laboratory Data Attestation: I reviewed the patient's lab results. Result diagrams: 05/15/18 19:09 05/15/18 17:48 Lab Results 05/15/18 05/15/18 05/15/18 Range/Units 12:30 12:30 12:52 WBC 9.26 (4.8-10.8) K/uL RBC 4.56 (4.2-5.4) M/uL Hgb 14.2 (12.0-16.0) g/dL Hct 43.8 (37-47) % MCV 96.1 (80-100) fL MCH 31.1 (25-34) pg MCHC 32.4 (32-36) g/dL RDW Std Deviation 50.7 H (36.4-46.3) fL RDW Coeff of Agnes 14.4 (11.5-14.5) % Plt Count 421 H (130-400) K/uL MPV 10.1 (7.4-10.4) fL Immature Gran % (Auto) 0.4 % Neut % (Auto) 57.1 % Lymph % (Auto) 28.7 % [place] % (Auto) 8.9 % Eos % (Auto) 4.0 % Baso % (Auto) 0.9 % Immature Gran # (Auto) 0.04 H (0.00-0.02) K/uL Neut # (Auto) 5.29 (1.4-6.5) K/uL Lymph # (Auto) 2.66 (1.2-3.4) K/uL [place] # (Auto) 0.82 H (0.11-0.59) K/uL Eos # (Auto) 0.37 (0-0.5) K/uL Baso # (Auto) 0.08 (0-0.2) K/uL PT (9.0-12.0) Seconds INR (0.9-1.1) APTT (21.0-31.0) Seconds PTT Ratio POC D-Dimer > 450 H* (0-450) ng/mlFEU Sodium 143 (136-145) mmol/L Potassium 4.0 (3.5-5.1) mmol/L Chloride 114 H (98-107) mmol/L Carbon Dioxide 27 (21-32) mmol/L Anion Gap 2.0 L (3-11) BUN 17 (7-18) mg/dl Creatinine 0.94 (0.6-1.2) mg/dl Est Cr Clr Drug Dosing 52.6 ml/min Est GFR ( Amer) 69.8 Est GFR (Non-Af Amer) 60.2 BUN/Creatinine Ratio 18.0 (10-20) Glucose 94 (70-99) mg/dl Calcium 8.5 (8.5-10.1) mg/dl Phosphorus 3.2 (2.5-4.9) mg/dl Magnesium 1.7 L (1.8-2.4) mg/dl Total Bilirubin 0.3 (0.2-1) mg/dl AST 8 L (15-37) U/L ALT 22 (12-78) U/L Alkaline Phosphatase 71 (45-117) U/L POC Troponin I < 0.03 (0-0.045) ng/ml Troponin I 0.016 (0-0.045) ng/ml Total Protein 6.4 (6.4-8.2) gm/dl Albumin 3.1 L (3.4-5.0) gm/dl Globulin 3.3 (2.5-4.0) gm/dl Albumin/Globulin Ratio 0.9 (0.9-2) Lipase 90 (73-393) U/L 05/15/18 05/15/18 05/15/18 Range/Units 17:48 17:48 17:48 WBC (4.8-10.8) K/uL RBC (4.2-5.4) M/uL Hgb (12.0-16.0) g/dL Hct (37-47) % MCV (80-100) fL MCH (25-34) pg MCHC (32-36) g/dL RDW Std Deviation (36.4-46.3) fL RDW Coeff of Agnes (11.5-14.5) % Plt Count (130-400) K/uL MPV (7.4-10.4) fL Immature Gran % (Auto) % Neut % (Auto) % Lymph % (Auto) % [place] % (Auto) % Eos % (Auto) % Baso % (Auto) % Immature Gran # (Auto) (0.00-0.02) K/uL Neut # (Auto) (1.4-6.5) K/uL Lymph # (Auto) (1.2-3.4) K/uL [place] # (Auto) (0.11-0.59) K/uL Eos # (Auto) (0-0.5) K/uL Baso # (Auto) (0-0.2) K/uL PT 10.1 (9.0-12.0) Seconds INR 1.0 (0.9-1.1) APTT 25.5 (21.0-31.0) Seconds PTT Ratio 1.0 POC D-Dimer (0-450) ng/mlFEU Sodium (136-145) mmol/L Potassium (3.5-5.1) mmol/L Chloride (98-107) mmol/L Carbon Dioxide (21-32) mmol/L Anion Gap (3-11) BUN (7-18) mg/dl Creatinine 0.95 Cancelled (0.6-1.2) mg/dl Est Cr Clr Drug Dosing 52.0 Cancelled ml/min Est GFR ( Amer) 68.9 Cancelled Est GFR (Non-Af Amer) 59.4 Cancelled BUN/Creatinine Ratio (10-20) Glucose (70-99) mg/dl Calcium (8.5-10.1) mg/dl Phosphorus (2.5-4.9) mg/dl Magnesium (1.8-2.4) mg/dl Total Bilirubin (0.2-1) mg/dl AST (15-37) U/L ALT (12-78) U/L Alkaline Phosphatase (45-117) U/L POC Troponin I (0-0.045) ng/ml Troponin I 0.018 (0-0.045) ng/ml Total Protein (6.4-8.2) gm/dl Albumin (3.4-5.0) gm/dl Globulin (2.5-4.0) gm/dl Albumin/Globulin Ratio (0.9-2) Lipase (73-393) U/L 05/15/18 Range/Units 19:09 WBC 10.28 (4.8-10.8) K/uL RBC 4.30 (4.2-5.4) M/uL Hgb 13.2 (12.0-16.0) g/dL Hct 40.8 (37-47) % MCV 94.9 (80-100) fL MCH 30.7 (25-34) pg MCHC 32.4 (32-36) g/dL RDW Std Deviation 49.5 H (36.4-46.3) fL RDW Coeff of Agnes 14.5 (11.5-14.5) % Plt Count 371 (130-400) K/uL MPV 9.9 (7.4-10.4) fL Immature Gran % (Auto) % Neut % (Auto) % Lymph % (Auto) % [place] % (Auto) % Eos % (Auto) % Baso % (Auto) % Immature Gran # (Auto) (0.00-0.02) K/uL Neut # (Auto) (1.4-6.5) K/uL Lymph # (Auto) (1.2-3.4) K/uL [place] # (Auto) (0.11-0.59) K/uL Eos # (Auto) (0-0.5) K/uL Baso # (Auto) (0-0.2) K/uL PT (9.0-12.0) Seconds INR (0.9-1.1) APTT (21.0-31.0) Seconds PTT Ratio POC D-Dimer (0-450) ng/mlFEU Sodium (136-145) mmol/L Potassium (3.5-5.1) mmol/L Chloride (98-107) mmol/L Carbon Dioxide (21-32) mmol/L Anion Gap (3-11) BUN (7-18) mg/dl Creatinine (0.6-1.2) mg/dl Est Cr Clr Drug Dosing ml/min Est GFR ( Amer) Est GFR (Non-Af Amer) BUN/Creatinine Ratio (10-20) Glucose (70-99) mg/dl Calcium (8.5-10.1) mg/dl Phosphorus (2.5-4.9) mg/dl Magnesium (1.8-2.4) mg/dl Total Bilirubin (0.2-1) mg/dl AST (15-37) U/L ALT (12-78) U/L Alkaline Phosphatase (45-117) U/L POC Troponin I (0-0.045) ng/ml Troponin I (0-0.045) ng/ml Total Protein (6.4-8.2) gm/dl Albumin (3.4-5.0) gm/dl Globulin (2.5-4.0) gm/dl Albumin/Globulin Ratio (0.9-2) Lipase (73-393) U/L Imaging Data Radiologist's Impression: Radiology results as stated below per my review and the radiologist's interpretation: XR chest 1V portable CLINICAL HISTORY: Atypical chest pain COMPARISON STUDY: 04/30/2018 FINDINGS: The heart is borderline enlarged. There is elevation/eventration of the hemidiaphragms. There is no acute parenchymal consolidation. There is no failure. There are no pleural effusions. Minor left basilar atelectasis is again evident.[ IMPRESSION: No active disease in the chest. Electronically signed by: Anthony Aponte M.D. 05/15/2018 12:[address] angio chest PE protocol CT DOSE: 280.30 mGy.cm HISTORY: Chest pain. Dyspnea. Chest Pain, eval for PE TECHNIQUE: Multiaxial CT images of the chest were performed following the intravenous administration of contrast to evaluate the pulmonary arteries. Maximal intensity projection images were also obtained. A dose lowering technique was utilized adhering to the principles of ALARA. COMPARISON STUDY: None. FINDINGS: There is a normal caliber thoracic aorta with no evidence for dissection. There is no evidence for pulmonary embolus. No pleural effusions. No pneumothorax. The liver and spleen are unremarkable. No mediastinal or hilar lymphadenopathy. The central airways are patent. The lungs are clear. Fixed hiatal hernia. Large left renal cyst measuring 8 cm. IMPRESSION: 1. No evidence for pulmonary embolus. 3. Fixed hiatal hernia. 4. 8 cm left renal cyst. 2. Lungs are clear. The above report was generated using voice recognition software. It may contain grammatical, syntax or spelling errors. Electronically signed by: Mykel Cohn M.D. 05/15/2018 1:55 PM ECG Data Attestation: I personally reviewed and interpreted this ECG as follows: Indication: chest pain Rate (beats per minute): 87 Rhythm: normal sinus Findings: + T-wave inversion (V1 through V6 and in high lateral leads and lead II, absent in lead III and AVF); no PAC, no PVC, no ST depression and no ST elevation Comparison ECG Date: from (1052) Change: the following changes noted (TWI resolution in lead III and AVF is improved compared to 1053 today. ) Blood Pressure Blood Pressure Findings: Elevated blood pressure Blood Pressure Disposition: further management by hospitalist CHILANGO Narrative Prior records/ancillary studies reviewed. Triage nursing notes reviewed. The patient is a 73 year old white female w/ PMHx of IVS filter, HTHN, HLD, hypothyroid, NSTEMI, CAD status post PCI to RCA and LAD who presents to the ED w / CC of chest pain beginning yesterday. Differential diagnosis: Etiologies such as cardiac ischemia, aortic dissection, pulmonary embolism, pneumonia, pneumothorax, musculoskeletal, infections, pericarditis, myocarditis , esophageal rupture, gastrointestinal, as well as others were entertained. Patient was seen and evaluated the bedside. The patient had been referredPatient was seen and evaluated the bedside. The patient has a known history of DVT, hypertension, hyperlipidemia, IVC filter, recent PCI status post 3 stents to RCA in patient is on aspirin as well as Brilinta. The patient was sent over after being seen in clinic today due to 2 concerning EKG changes. Noted T WI in 3 and aVF. The patient was given nitro with complete resolution of her discomfort. The patient was given full dose aspirin in route. Patient is otherwise well-appearing. Patient states that she had some centralized chest pain radiating to right shoulder. Patient states again that this is resolved. Patient denies shortness of breath or lower extremity swelling. Patient did a blood work completed along with EKG troponin chest x-ray and CT of the of the chest. Patient's EKG does show resolution of T WI in 3 and aVF. I did speak the on-call commercial lawn specialist who did order a bedside echo to be performed. Patient CT does not show any evidence of PE. Bedside echo did show a little bit of pericardial effusion. I did speak with Dr. Brown related likely related to post procedure pericarditis. Patient was to be given additional medications. I did speak with the on-call hospitalist who agreed to further evaluate treat the patient. Patient was admitted to the medicine service. Impression & Plan Atypical chest pain, Hypomagnesemia Discharge Plan Visit Data *Final* Discharge Date/Time: 05/15/18 16:00 Chief Complaint: Chest Pain ED Provider: Leon Chaney Discharge Problem: Atypical chest pain, Hypomagnesemia Patient Disposition: Admitted As Inpatient Discharge Instructions Interventions: ED Discharge Assessment Last Done: 05/15/18 16:00 The scribe's documentation has been prepared under my direction and personally reviewed by me in its entirety. I confirm that the note above accurately reflects all work, treatment, procedures, and medical decision making performed by me.
[2018-05-15] MEDS: IBUPROFEN 600 MG TAB PO SCH (20:11)
[2018-05-15] MEDS: METOPROLOL SUCC 25MG EXT REL TAB PO SCH (20:12)
[2018-05-15] MEDS: TICAGRELOR 90 MG TAB PO SCH (20:13)
[2018-05-15] MEDS ORDERED: ASPIRIN 81 MG ECTAB PO SCH (21:00)
[2018-05-15] MEDS ORDERED: ENOXAPARIN INJ 40 MG/0.4 ML SYR SQ SCH (21:00)
[2018-05-16] MEDS: IBUPROFEN 600 MG TAB PO SCH (05:46)
[2018-05-16] MEDS: LOPERAMIDE HCL 2 MG CAP PO PRN ×2 (06:05→07:38)
[2018-05-16 06:22] LABS: Hemoglobin 13.3 g/dL (12.0-16.0); Mean Corpuscular Hgb Conc 33.3 g/dL (32-36); Mean Corpuscular Volume 95.7 fL (80-100); Mean Platelet Volume 9.7 fL (7.4-10.4); Platelet Count 335 K/uL (130-400); RDW Coefficient of Variation 14.4 % (11.5-14.5); RDW Standard Deviation 50.1 fL (36.4-46.3); Red Blood Count 4.18 M/uL (4.2-5.4); White Blood Count 9.69 K/uL (4.8-10.8)
[2018-05-16] MEDS ORDERED: LEVOTHYROXINE SODIUM 150 MCG TABLET PO SCH (06:30)
[2018-05-16 06:57] LABS: BUN Creatinine Ratio 18.7 (10-20); Calcium 8.1 mg/dl (8.5-10.1); Creatinine Clr Calc Pharmacy 54.9 ml/min; Est GFR (African American) 73.5; Est GFR (Non-African American) 63.4; Magnesium 2.2 mg/dl (1.8-2.4); Potassium 4.3 mmol/L (3.5-5.1)
[2018-05-16] MEDS: TICAGRELOR 90 MG TAB PO SCH (08:54)
[2018-05-16] MEDS: METOPROLOL SUCC 25MG EXT REL TAB PO SCH (08:56)
[2018-05-16] MEDS ORDERED: CHOLECALCIFEROL 1,000 UNITS TAB PO SCH (09:00)
[2018-05-16] MEDS ORDERED: ATORVASTATIN 40 MG TAB PO SCH (09:00)
[2018-05-16] MEDS ORDERED: LISINOPRIL 2.5 MG TAB PO SCH (09:00)
[2018-05-16] MEDS ORDERED: PANTOprazole 40 MG TAB PO SCH (09:00)
[2018-05-16] MEDS: COLCHICINE 0.6 MG TAB PO SCH (10:01)
--- NOTE | 2018-05-16 10:25 | Cardiology Progress Note ---
Date of Service May 16, 2018 Assessment & Plan (1) Chest pain: without recurrence ischemia ruled out with trop - x 3 some soreness on palpation, possibly a musculoskeletal component as well will treat for pericarditis ibuprofen 600mg po tid for 1 month colchicine 0.6mg po bid for 3 months if diarrhea continues may have to hold colchicine again, steroids should be avoided at all costs will need GI prophylaxis recommend taking meds with food and otc lansoprazole 15mg po daily my office will call to schedule f/u in 1 month ok to d/c from cardiac standpoint (2) CAD (coronary artery disease): Stable acute ischemia ruled out cont asa, Brilinta, atorvastatin, lisinopril and metoprolol (3) Ischemic cardiomyopathy: improving at only 2 weeks s/p PCI, very positive finding will cont current outpatient medical regimen Subjective Pt seen and examined, no recurrence of chest discomfort. Some diarrhea overnight. Denies sob, palpitations, lightheadedness or dizziness. Tele reviewed: sinus rhythm without arrhythmia or significant ectopy. Review of Systems All systems reviewed & are unremarkable except as noted in HPI & below Physical Exam 2 Vital Signs (Past 24 Hours): Last Vital Signs Temp 36.8 C 05/16/18 07:00 Pulse 77 05/16/18 07:00 Resp 20 05/16/18 07:00 BP 116/75 05/16/18 07:00 Pulse Ox 94 05/16/18 07:00 Physical Exam: General: Awake, alert and oriented x 3. No acute distress. HEENT: Normocephalic, atraumatic. Pupils equal, round and reactive to light and accommodation. Extraocular muscles are intact. Anicteric sclera. Moist mucous membranes. Neck: No JVD. No bruit. Cardiovascular: Regular. Positive S-4. Normal S-1 and S-2. No S-3. No murmurs or rubs. Pulmonary: Clear to auscultation B/L. No rales, rhonchi or wheezing Abdomen: Bowel sounds x 4, soft. No rebound, guarding or tenderness. No organomegaly. Extremities: No clubbing, cyanosis or edema. +2 pedal pulses bilaterally. Skin: Warm and dry.
--- NOTE | 2018-05-16 14:56 | Hospitalist Progress Note ---
Date of Service May 16, 2018 Assessment & Plan (1) Pericardial effusion: Status post recent non-STEMI with PCI. Seen in clinic the day of admission. Experiencing chest pain not typical for myocardial ischemia. EKG demonstrated sinus rhythm with T wave inversions anterolaterally. Cardiology consulted. Echocardiogram demonstrated an anterior pericardial effusion without evidence of tamponade. Findings consistent with pericarditis with associated pericardial effusion. Therapy with aspirin 650 mg twice daily for 1 month and colchicine 0.6 twice daily for 3 months recommended. (2) CAD (coronary artery disease): Status post recent non-STEMI with PCI's of LAD and RCA. Continue aspirin, ticagrelor, metoprolol, lisinopril, statin. (3) Ischemic cardiomyopathy: Echocardiogram after recent non-STEMI demonstrated LVEF of 35-40%. Receiving therapy with metoprolol succinate and lisinopril. Repeat echo during this admission showed improvement of ejection fraction, now measured as 50-55%. Continue metoprolol succinate and lisinopril. (4) Hypertension: Continue lisinopril and metoprolol succinate. (5) Dyslipidemia: Continue atorvastatin. (6) Hypothyroidism: Continue levothyroxine. (7) Diarrhea: Developed diarrhea after starting colchicine. Symptomatic management with loperamide. (8) DVT prophylaxis: Received enoxaparin. Ambulating. (9) Discharge planning issues: Discharge to home. Medical follow-up with Dr. Winchester. Cardiology follow-up with Dr. Charles Ortega. Subjective Recheck for pericarditis. Feels better. No chest pain or SOB. Experiencing loose stools since starting colchicine. Physical Exam 2 Vital Signs (Past 24 Hours): Last Vital Signs Temp 36.7 C 05/16/18 11:24 Pulse 77 05/16/18 11:24 Resp 18 05/16/18 11:24 BP 144/84 H 05/16/18 11:24 Pulse Ox 94 05/16/18 11:24 Constitutional: no acute distress Respiratory: no respiratory distress Auscultation: lungs clear to auscultation bilaterally Cardiovascular: Rate/Rhythm: regular rate and regular rhythm Heart Sounds: no gallop, no murmur and no cardiac rub Vessels: no JVD Extremities: no calf tenderness and no edema Gastrointestinal (Abdomen): normal bowel sounds, soft, nontender, no hepatosplenomegaly Skin: no rashes, warm and dry Psychiatric: Orientation: alert and oriented x 3 Results & Data ECG Additional Comments: EKG performed at 0635 reviewed and demonstrated NSR at 75 / min, anterolateral T -wave inversions.
[2018-05-16] MEDS ORDERED: ASPIRIN 325 MG ECTAB PO SCH (21:00)
--- NOTE | 2018-05-17 08:24 | Discharge Summary ---
Date of Service May 17, 2018 Admission HPI Per Admitting Provider Pt is 73 y/o F with PMH HTN, HLD, hypothryoidism, GERD, CKD III, h/o PE with IVC filter which has since been removed, CAD s/p NSTEMI and AMIE to LAD on and RCA on 04/30/18 presented to ER from cardiology office for CP. Pt reports past 2 days having some mid chest and R shoulder discomfort. She thought she may have pulled a muscle. Dr Ortega performed EKG with reported diffuse T wave abnormality and more pronounced T wave inversion. She had 1 SL nitro with relief of R shoulder pain and CP. During last hospitalization 04/28/18-05/01/18 echo with EF: 35-40%. Denies fever/chills, diaphoresis, N/V/D/C, MAN, dizziness, syncope, vision changes, neck pain, SOB, orthopnea, palpitations, cough, sore throat, choking, otalgia, rhinorrhea, abdominal pain, paresthesias, weakness, extremity weakness, extremity edema, rashes, urinary symptoms. Seen in ER by Dr Montano -cardiology and had echo performed showing pericardial effusion. Admission Exam Per Admitting Provider General: no acute distress, WDWN Head: normocephalic, atraumatic Eyes: PERRL, EOM's intact, conjunctiva non-injected, anicteric ENT: normal inspection external ears, nose, mucous membranes moist Neck: supple, trachea midline Lungs: clear, no respiratory distress, no wheezing/rhonchi/rales CV: RRR, no murmur, no pretibial edema Abd: normal BS, soft, non-tender Ext: no cyanosis, no calf tenderness Neuro: A&O x 3, no focal deficits noted, normal affect Skin: warm, dry Principal Diagnosis pericarditis with pericardial effusion CAD with recent non-STEMI and PCI's Discharge Data Allergies Allergy/AdvReac Type Severity Reaction Status Date / Time imipenem Allergy Severe ANAPHYLAXIS Verified 05/15/18 13:43 Sulfa (Sulfonamide Allergy Severe hives,sob, Verified 05/15/18 13:43 Antibiotics) can take Dyazide daptomycin AdvReac Severe Anaphylaxis Unverified 05/15/18 13:43 zoledronic acid AdvReac Mild NAUSEA AND Verified 05/15/18 13:43 VOMITING Consultations 05/15/18 14:28 ED Decision to Admit Stat 05/15/18 16:19 Consult Cardiology Routine Ordered Studies 05/15/18 12:24 CT angio chest PE protocol Stat Hospital Course (1) Pericardial effusion: Status post recent non-STEMI with PCI. Seen in clinic the day of admission. Experiencing chest pain not typical for myocardial ischemia. EKG demonstrated sinus rhythm with T wave inversions anterolaterally. Cardiology consulted. Echocardiogram demonstrated an anterior pericardial effusion without evidence of tamponade. Findings consistent with pericarditis with associated pericardial effusion. Therapy with aspirin 650 mg twice daily for 1 month and colchicine 0.6 twice daily for 3 months recommended. (2) CAD (coronary artery disease): Status post recent non-STEMI with PCI's of LAD and RCA. Continue aspirin, ticagrelor, metoprolol, lisinopril, statin. (3) Ischemic cardiomyopathy: Echocardiogram after recent non-STEMI demonstrated LVEF of 35-40%. Receiving therapy with metoprolol succinate and lisinopril. Repeat echo during this admission showed improvement of ejection fraction, now measured as 50-55%. Continue metoprolol succinate and lisinopril. (4) Hypertension: Continue lisinopril and metoprolol succinate. (5) Dyslipidemia: Continue atorvastatin. (6) Hypothyroidism: Continue levothyroxine. (7) Diarrhea: Developed diarrhea after starting colchicine. Symptomatic management with loperamide. (8) DVT prophylaxis: Received enoxaparin. Ambulating. (9) Discharge planning issues: Discharge to home. Medical follow-up with Dr. Winchester. Cardiology follow-up with Dr. Charles Ortega. Total Time Total Time Spent Total Time Spent (In Minutes): 30 Discharge Plan Discharge Items Patient Disposition: Home - Self-Care Reason For Visit: chest pain Discharge Diagnosis: pericarditis (inflammation in sac around the heart) pericardial effusion (fluid in sac around the heart) Condition: Good Discharge Goals: Decrease discomfort and Improve disease control Activity: Per 'Additional Instructions' section Lifting: Gradually increase as tolerated Non-emergency contact: Primary Care Provider, Hospitalist and Core Checker Call non-emergency contact if: you have any medication questions and your pain is not controlled Follow-up/Referrals: Charles Ortega DO [Core Checker] - (06/16/2018 11:00 AM Charles Ortega DO Cardiology, [facility]) Irene Winchester DO [Primary Care Provider] - (05/23/2018 1:00 PM Irene Winchester DO) Diet: Heart Healthy Addtl Provider Instructions: OTHER INSTRUCTIONS: Drs. Montano and Jordan are recommending higher dose aspirin to treat the inflammation around your heart. Hold the 81 mg dose while taking the higher dose, then resume it when done. Tentative plan: aspirin (Ecotrin) 325 mg pills, 2 pills twice a day with food for 1 month colchicine 0.6 mg twice a day with food for 3 months Aspirin can cause stomach ulers. Take lansoprazole (Prevacid) while taking high dose aspirin to prevent ulcers. Seek medical attention if you have: * temperature above 101 * chest pain or trouble breathing * weakness, lightheadedness, passing out * abdominal pain, nausea, vomiting * diarrhea, dark stools or bloody stools * any unanswered questions or concerns Call 911 if symptoms are severe. Call if you have any questions or problems. My cell # is [phone]. You can also reach a [facility] hospitalist on duty at [facility] 24 hours a day by calling [phone]. Prescriptions: New loperamide [Anti-Diarrheal (loperamide)] 2 mg capsule 2 mg PO QID PRN (Reason: loose stool) Qty: 30 RF: 0 aspirin 325 mg tablet,delayed release (DR/EC) 650 mg PO BID Qty: 100 RF: 0 lansoprazole [Prevacid] 15 mg capsule,delayed release(DR/EC) 15 mg PO DAILY 84 Days Qty: 84 RF: 0 colchicine 0.6 mg tablet 0.6 mg PO BID Qty: 60 RF: 2 Continue fexofenadine 180 mg Tablet 180 mg PO DAILY PRN (Reason: Allergy Symptoms) RF: 0 ranitidine HCl 150 mg Tablet 150 mg PO BID RF: 0 omeprazole 20 mg Tablet,Delayed Release (Dr/Ec) 20 mg PO QAM RF: 0 cholecalciferol (vitamin D3) [Vitamin D3] 2,000 unit Tablet 2,000 unit PO QAM RF: 0 levothyroxine 150 mcg Capsule 150 mcg PO QAM RF: 0 pumpkin seed extract-soy germ [Azo Bladder Control] 300 mg Capsule 1 cap PO BID RF: 0 nitroglycerin [Nitrostat] 0.4 mg tablet, sublingual 0.4 mg Sublingual Q5M Qty: 25 RF: 3 metoprolol succinate 25 mg tablet extended release 24 hr 25 mg PO BID Qty: 60 RF: 11 ticagrelor [Brilinta] 90 mg tablet 90 mg PO BID Qty: 60 RF: 11 acetaminophen [Tylenol Extra Strength] 500 mg Tablet 1,000 mg PO QAM RF: 0 atorvastatin 80 mg tablet 80 mg PO QAM RF: 0 lisinopril 2.5 mg tablet 2.5 mg PO QAM RF: 0 aspirin 81 mg Tablet,Delayed Release (Dr/Ec) 81 mg PO HS Qty: 0 RF: 0 Stand-Alone Forms: [facility] Discharge Orders: Discharge Order (Routine); Ordered 05/16/18 Ordered By: Alfonso Bustos Admission Data Admit Date/Time: 05/15/18 15:09 Attending Provider: Alfonso Bustos Admit Provider: Fátima Arias Primary Care Provider: Irene Winchester Other Providers: Celestino Montano Wilkerson Service: Telemetry Other Interventions: Discharge Summary Assessment (RN) Last Done: 05/16/18 15:21 DC Date/Time DO NOT enter until pt leaves facility: 05/16/18 15:30
== END 2018-05-16 15:30 | disposition home or self-care (01) ==
LOC: 2N 12:10 → ED 12:10 → 2N 16:00

== ENCOUNTER 2018-06-03 05:26 | Inpatient (IN) ==
[2018-06-03] MEDS ORDERED: NITROGLYCERIN SL 0.4 MG/TAB TAB SL STA (05:40)
--- NOTE | 2018-06-03 05:40 | Emergency Department Note ---
ED Provider Note Name: Rehana Moran Age: 73 F Arrives Via: EMS Informant: Pt, EMS CC: Left Chest Pain HPI: 73 female arrives for evaluation of left chest pain. Patient with complicated last few weeks initially with NSTEMI resulting in stenting x 2 followed by Pericarditis with pericardial effusion and has been on ASA 650mg BID for last few weeks. Notes on and off shortness of breath/chest pain with exertion though not bothering her very much. States she feels very weak and shaky with trying to get around her house. This evening at around 2am she noted worsening chest pain radiating to left shoulder. Associated with nausea, fatigue. No fevers, chills, headache, syncope, abdominal pain, leg swelling, back pain, urinary/bowel symptoms, rashes nor other symptoms. Exertion and movement made symptoms worse, rest made better. Denies fall/trauma. 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 SLNTG at home x 1 with minimal change. ROS: See above HPI for pertinent positives & negatives. A total of 10 systems reviewed and were otherwise negative. Past Medical History: CAD, Cardiomyopathy, HTN, Hypothyroid, DLP, DVT, GERD, Past Surgical History: Cardiac cath with stents, hysterectomy, rt knee replacement, IVC filter (removed) Family History: CAD, HTN Social History: nonsmoker retired and living with daughter. no ETOH/no Drugs Home Medications: Tylenol, Aspirin, Atorvastatin, Vit D3, Fexofenadine, Prevcid, evothyroxine, lisinopril, loperamide, metoprolol, Omeprazole, SLNTG, Zantac, Brilinta Allergies Imipenem, Sulfa, Daptomycin, Zoledronic Acid Physical: Vitals: 172/96, HR 102, R 18, T 36.9, O2 95% Exam: GENERAL: Patient is anxious appearing and in moderate distress. EYES: No scleral icterus, unremarkable pupils. ENT: Mucous membranes moist, no nasal congestion. NECK: No masses appreciated, no meningismus, trachea is midline. RESPIRATORY: No dyspnea. Clear to auscultation and equal bilaterally. No wheeze, no rhonchi. CARDIOVASCULAR: Regular rate and rhythm. No murmurs, rubs, gallops appreciated. GASTROINTESTINAL: Abdomen soft, non-tender, no peritonitis. Bowel sounds positive. No masses appreciated. BACK: No midline tenderness, no CVA tenderness EXTREMITIES: Normal motion all extremities, no cyanosis, no edema. NEUROLOGIC: Alert and oriented, no acute motor or sensory deficits, no focal weakness, cranial nerves grossly intact. SKIN: No rash, no jaundice, no diaphoresis. ED Course: Prior Medical Record, Triage/Nursing Notes, Medications, Allergies reviewed by Me Vital Signs: reviewed and remarkable for HTN Labs: Reviewed and remarkable for mildly elevated WBC, minimal elevated CRP. Mildly elevated LFTs. Baseline level trop, normal bmp. Interventions: saline lock, slntg, nss bolus 500ml IV, Magnesium 2 G IV Imaging: X ray results are stated below per my interpretation: Chest: 1 view: Large heart though similar to CXR from 05/15/18 without evidence congestive failure. Elevated left hemidiaphragm similar to previous. EKG: Per My Interpretation: ST at 107 with lateral T wave inversions, QTC 452, no ectopy, no STEMI. When compared to EKG 05/16/18 the T waves are improving. Consults: Dr Arias of [facility] hospitalist for further management Reassessments/Times: Improving pain, resting comfortably in bed. Blood pressure: Normal. No Referral necessary Disposition: Hospitalist Evaluation Differentials: ACS, PE, Dissection, Effusion, CHF, infection amongst other pathologies. Medical Decision Making: Uncomfortable, clearly anxious 73 yr old female arrives for evaluation worsening left chest pain radiating to left shoulder associated with nausea and over last few days SOSA and weakness on movement. Recent NSTEMI followed by pericarditis. She has improving t wave inversions on EKG. Trop is at her baseline level. She has mild wbc elevation, though this has been seen previously in this patient. HR sitting right around 100 the entire time here. She feels much better after IV fluids. Mag quite low which may explain weakness recently thus 2 G IV ordered for here. She has mild LFT bump of uncertain etiology as she has no TTP over abdomen on multiple repeat evaluation. She does not have dyspnea while here in the ED and with the multiple asa/brilinta she is on and the fact she has now had 2 negative CTAs Chest in last few weeks I think repeating this would be excessive. There is a clear evidence of anxiety with this and she responds well to reassertion that she is looking OK right now. Impression: Left Chest Pressure Hypomagnesemia Pericarditis Quincy Trivedi MD Impression & Plan Left chest pressure, Hypomagnesemia, Pericarditis Past Med/Surg History Medical History Osteoporosis (Chronic) 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 (Chronic) 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) History of non-ST elevation myocardial infarction (NSTEMI) (Chronic) Vitamin B12 deficiency (Chronic) CAD (coronary artery disease) (Chronic) Ischemic cardiomyopathy (Chronic) Hypertension (Chronic) Hypothyroidism (Chronic) Dyslipidemia (Chronic) History of DVT (deep vein thrombosis) (Chronic) History of pulmonary embolism (Chronic) GERD (gastroesophageal reflux disease) (Chronic) Rupture of left posterior tibialis tendon (Resolved) Acute head injury (Resolved) Gastroenteritis (Resolved) Surgical History History of cardiac cath (Chronic) Status post hysterectomy (Resolved) Status post right knee replacement (Resolved) S/P IVC filter (Resolved) S/P BSO (status post bilateral salpingo-oophorectomy) (Resolved) Social History Preferred Language: Venezuelan Communication Ability: Effective Beliefs That Will Affect Care: None marital status: Current Living Situation: Family Current Living Situation Comment: Daughter and son in law current occupational status: employed Other Information That Helps Us Care for You: No Feels Safe at Home: Yes Safety Concerns: Feels Safe At This Time Smoking Status: Never smoker Hx Alcohol Use: No Hx Substance Use: No Results & Data Vital Signs Vital Signs - 24 hr 06/03/18 05:35 06/03/18 05:47 06/03/18 06:33 Temperature 36.9 C Temperature Source Oral Sepsis Recent Fever Within 48 Hours No Sepsis Action Taken by Nursing No Action Required Pulse Rate 107 H Pulse Rate [Right Finger] 102 H 101 H Pulse Rhythm [Right Finger] Pulse Strength Normal Pulse Strength [Right Finger] Respiratory Rate 18 18 20 Respiratory Effort / Characteristics Non-Labored Spontaneous Non-Labored Spontaneous Non-Labored Spontaneous Respiratory Depth Normal Normal Normal Respiratory Pattern Regular Regular Regular Blood Pressure 172/109 H Blood Pressure [Left Arm] 148/85 H 147/78 H Blood Pressure [Right Arm] Blood Pressure Mean 130 Blood Pressure Mean [Left Arm] 106 101 Blood Pressure Mean [Right Arm] Blood Pressure Position Lying Blood Pressure Position [Left Arm] Sitting Lying Pulse Oximetry 96 95 95 Oxygen Delivery Method Room Air Room Air Room Air Oxygen Flow Rate 06/03/18 07:02 06/03/18 07:39 06/03/18 07:54 Temperature Temperature Source Sepsis Recent Fever Within 48 Hours Sepsis Action Taken by Nursing Pulse Rate Pulse Rate [Right Finger] 93 H 98 H Pulse Rhythm [Right Finger] Pulse Strength Pulse Strength [Right Finger] Respiratory Rate 16 16 Respiratory Effort / Characteristics Respiratory Depth Respiratory Pattern Blood Pressure Blood Pressure [Left Arm] 140/76 139/80 Blood Pressure [Right Arm] Blood Pressure Mean Blood Pressure Mean [Left Arm] 97 99 Blood Pressure Mean [Right Arm] Blood Pressure Position Blood Pressure Position [Left Arm] Pulse Oximetry 96 Oxygen Delivery Method Room Air Room Air Oxygen Flow Rate 06/03/18 08:40 06/03/18 09:31 06/03/18 10:02 Temperature Temperature Source Sepsis Recent Fever Within 48 Hours Sepsis Action Taken by Nursing Pulse Rate Pulse Rate [Right Finger] 101 H 100 H 100 H Pulse Rhythm [Right Finger] Regular Pulse Strength Pulse Strength [Right Finger] Respiratory Rate 20 18 18 Respiratory Effort / Characteristics Non-Labored Non-Labored Respiratory Depth Normal Normal Respiratory Pattern Regular Regular Blood Pressure Blood Pressure [Left Arm] 152/83 H 150/86 H 157/81 H Blood Pressure [Right Arm] Blood Pressure Mean Blood Pressure Mean [Left Arm] 106 107 106 Blood Pressure Mean [Right Arm] Blood Pressure Position Blood Pressure Position [Left Arm] Lying Pulse Oximetry 92 93 93 Oxygen Delivery Method Room Air Room Air Room Air Oxygen Flow Rate 06/03/18 10:31 06/03/18 11:39 06/03/18 11:51 Temperature 37.6 C H Temperature Source Oral Sepsis Recent Fever Within 48 Hours Sepsis Action Taken by Nursing Pulse Rate Pulse Rate [Right Finger] 100 H 110 H Pulse Rhythm [Right Finger] Pulse Strength Pulse Strength [Right Finger] Respiratory Rate 18 18 Respiratory Effort / Characteristics Non-Labored Respiratory Depth Normal Respiratory Pattern Regular Blood Pressure Blood Pressure [Left Arm] 147/84 H Blood Pressure [Right Arm] 149/86 H Blood Pressure Mean Blood Pressure Mean [Left Arm] 105 Blood Pressure Mean [Right Arm] 107 Blood Pressure Position Blood Pressure Position [Left Arm] Pulse Oximetry 93 94 Oxygen Delivery Method Room Air Room Air Room Air Oxygen Flow Rate 06/03/18 15:16 06/03/18 15:49 06/03/18 16:00 Temperature Temperature Source Sepsis Recent Fever Within 48 Hours Sepsis Action Taken by Nursing Pulse Rate 103 H Pulse Rate [Right Finger] 107 H Pulse Rhythm [Right Finger] Regular Pulse Strength Pulse Strength [Right Finger] Normal Respiratory Rate 17 Respiratory Effort / Characteristics Non-Labored Respiratory Depth Normal Respiratory Pattern Blood Pressure Blood Pressure [Left Arm] 112/67 Blood Pressure [Right Arm] Blood Pressure Mean Blood Pressure Mean [Left Arm] 82 Blood Pressure Mean [Right Arm] Blood Pressure Position Blood Pressure Position [Left Arm] Lying Pulse Oximetry 94 88 L Oxygen Delivery Method Nasal Cannula Room Air Oxygen Flow Rate 2 06/03/18 16:22 Temperature 38.5 C H Temperature Source Oral Sepsis Recent Fever Within 48 Hours Sepsis Action Taken by Nursing Pulse Rate Pulse Rate [Right Finger] 104 H Pulse Rhythm [Right Finger] Regular Pulse Strength Pulse Strength [Right Finger] Normal Respiratory Rate 18 Respiratory Effort / Characteristics Non-Labored Respiratory Depth Normal Respiratory Pattern Regular Blood Pressure Blood Pressure [Left Arm] 129/72 Blood Pressure [Right Arm] Blood Pressure Mean Blood Pressure Mean [Left Arm] 91 Blood Pressure Mean [Right Arm] Blood Pressure Position Blood Pressure Position [Left Arm] Lying Pulse Oximetry 94 Oxygen Delivery Method Nasal Cannula Oxygen Flow Rate 2 Laboratory Data Result diagrams: 06/03/18 05:30 06/03/18 05:30 Lab Results 06/03/18 06/03/18 06/03/18 Range/Units 05:30 05:30 05:30 WBC 15.60 H (4.8-10.8) K/uL RBC 4.56 (4.2-5.4) M/uL Hgb 14.2 (12.0-16.0) g/dL Hct 43.8 (37-47) % MCV 96.1 (80-100) fL MCH 31.1 (25-34) pg MCHC 32.4 (32-36) g/dL RDW Std Deviation 49.7 H (36.4-46.3) fL RDW Coeff of Agnes 14.2 (11.5-14.5) % Plt Count 301 (130-400) K/uL MPV 11.0 H (7.4-10.4) fL Immature Gran % (Auto) 0.4 % Neut % (Auto) 80.3 % Lymph % (Auto) 9.1 % [place] % (Auto) 7.8 % Eos % (Auto) 2.1 % Baso % (Auto) 0.3 % Immature Gran # (Auto) 0.06 H (0.00-0.02) K/uL Neut # (Auto) 12.52 H (1.4-6.5) K/uL Lymph # (Auto) 1.42 (1.2-3.4) K/uL [place] # (Auto) 1.22 H (0.11-0.59) K/uL Eos # (Auto) 0.33 (0-0.5) K/uL Baso # (Auto) 0.05 (0-0.2) K/uL ESR 9 (0-21) mm/hr PT 9.9 (9.0-12.0) Seconds INR 1.0 (0.9-1.1) Sodium (136-145) mmol/L Potassium (3.5-5.1) mmol/L Chloride (98-107) mmol/L Carbon Dioxide (21-32) mmol/L Anion Gap (3-11) BUN (7-18) mg/dl Creatinine (0.6-1.2) mg/dl Est Cr Clr Drug Dosing ml/min Est GFR ( Amer) Est GFR (Non-Af Amer) BUN/Creatinine Ratio (10-20) Glucose (70-99) mg/dl Lactate (0.4-2.0) mmol/L Calcium (8.5-10.1) mg/dl Magnesium (1.8-2.4) mg/dl Total Bilirubin (0.2-1) mg/dl Direct Bilirubin (0-0.2) mg/dl AST (15-37) U/L ALT (12-78) U/L Alkaline Phosphatase (45-117) U/L Troponin I (0-0.045) ng/ml C-Reactive Protein (0-0.29) mg/dl Total Protein (6.4-8.2) gm/dl Albumin (3.4-5.0) gm/dl Procalcitonin (0-0.5) ng/ml Urine Color Urine Appearance (Clear) Urine pH (4.5-7.5) Ur Specific [place] (1.000-1.030) Urine Protein (Negative) Urine Glucose (UA) (Negative) Urine Ketones (Negative) Urine Blood (Negative) Urine Nitrite (Negative) Urine Bilirubin (Negative) Urine Urobilinogen (Negative) Ur Leukocyte Esterase (Negative) Acetaminophen (10-30) ug/ml Hep Bs Antigen (Neg) Hepatitis C Antibody (Neg) Influenza Type A (PCR) (Neg) Influenza Type B (PCR) (Neg) 06/03/18 06/03/18 06/03/18 Range/Units 05:30 05:50 07:30 WBC (4.8-10.8) K/uL RBC (4.2-5.4) M/uL Hgb (12.0-16.0) g/dL Hct (37-47) % MCV (80-100) fL MCH (25-34) pg MCHC (32-36) g/dL RDW Std Deviation (36.4-46.3) fL RDW Coeff of Agnes (11.5-14.5) % Plt Count (130-400) K/uL MPV (7.4-10.4) fL Immature Gran % (Auto) % Neut % (Auto) % Lymph % (Auto) % [place] % (Auto) % Eos % (Auto) % Baso % (Auto) % Immature Gran # (Auto) (0.00-0.02) K/uL Neut # (Auto) (1.4-6.5) K/uL Lymph # (Auto) (1.2-3.4) K/uL [place] # (Auto) (0.11-0.59) K/uL Eos # (Auto) (0-0.5) K/uL Baso # (Auto) (0-0.2) K/uL ESR (0-21) mm/hr PT (9.0-12.0) Seconds INR (0.9-1.1) Sodium 143 (136-145) mmol/L Potassium 4.2 (3.5-5.1) mmol/L Chloride 109 H (98-107) mmol/L Carbon Dioxide 27 (21-32) mmol/L Anion Gap 8.0 (3-11) BUN 18 (7-18) mg/dl Creatinine 0.83 (0.6-1.2) mg/dl Est Cr Clr Drug Dosing 56.8 ml/min Est GFR ( Amer) 81.1 Est GFR (Non-Af Amer) 70.0 BUN/Creatinine Ratio 21.9 H (10-20) Glucose 91 (70-99) mg/dl Lactate 1.4 (0.4-2.0) mmol/L Calcium 8.5 (8.5-10.1) mg/dl Magnesium 1.5 L (1.8-2.4) mg/dl Total Bilirubin 0.4 (0.2-1) mg/dl Direct Bilirubin 0.1 (0-0.2) mg/dl AST 81 H (15-37) U/L ALT 138 H (12-78) U/L Alkaline Phosphatase 186 H (45-117) U/L Troponin I 0.017 (0-0.045) ng/ml C-Reactive Protein 0.43 H (0-0.29) mg/dl Total Protein 6.4 (6.4-8.2) gm/dl Albumin 3.2 L (3.4-5.0) gm/dl Procalcitonin (0-0.5) ng/ml Urine Color Yellow Urine Appearance Clear (Clear) Urine pH 8.0 H (4.5-7.5) Ur Specific [place] 1.012 (1.000-1.030) Urine Protein Negative (Negative) Urine Glucose (UA) Negative (Negative) Urine Ketones Negative (Negative) Urine Blood Negative (Negative) Urine Nitrite Negative (Negative) Urine Bilirubin Negative (Negative) Urine Urobilinogen Negative (Negative) Ur Leukocyte Esterase Negative (Negative) Acetaminophen (10-30) ug/ml Hep Bs Antigen (Neg) Hepatitis C Antibody (Neg) Influenza Type A (PCR) (Neg) Influenza Type B (PCR) (Neg) 06/03/18 06/03/18 06/03/18 Range/Units 10:10 12:17 12:17 WBC (4.8-10.8) K/uL RBC (4.2-5.4) M/uL Hgb (12.0-16.0) g/dL Hct (37-47) % MCV (80-100) fL MCH (25-34) pg MCHC (32-36) g/dL RDW Std Deviation (36.4-46.3) fL RDW Coeff of Agnes (11.5-14.5) % Plt Count (130-400) K/uL MPV (7.4-10.4) fL Immature Gran % (Auto) % Neut % (Auto) % Lymph % (Auto) % [place] % (Auto) % Eos % (Auto) % Baso % (Auto) % Immature Gran # (Auto) (0.00-0.02) K/uL Neut # (Auto) (1.4-6.5) K/uL Lymph # (Auto) (1.2-3.4) K/uL [place] # (Auto) (0.11-0.59) K/uL Eos # (Auto) (0-0.5) K/uL Baso # (Auto) (0-0.2) K/uL ESR (0-21) mm/hr PT (9.0-12.0) Seconds INR (0.9-1.1) Sodium (136-145) mmol/L Potassium (3.5-5.1) mmol/L Chloride (98-107) mmol/L Carbon Dioxide (21-32) mmol/L Anion Gap (3-11) BUN (7-18) mg/dl Creatinine (0.6-1.2) mg/dl Est Cr Clr Drug Dosing ml/min Est GFR ( Amer) Est GFR (Non-Af Amer) BUN/Creatinine Ratio (10-20) Glucose (70-99) mg/dl Lactate (0.4-2.0) mmol/L Calcium (8.5-10.1) mg/dl Magnesium 2.3 (1.8-2.4) mg/dl Total Bilirubin (0.2-1) mg/dl Direct Bilirubin (0-0.2) mg/dl AST (15-37) U/L ALT (12-78) U/L Alkaline Phosphatase (45-117) U/L Troponin I < 0.015 (0-0.045) ng/ml C-Reactive Protein (0-0.29) mg/dl Total Protein (6.4-8.2) gm/dl Albumin (3.4-5.0) gm/dl Procalcitonin (0-0.5) ng/ml Urine Color Urine Appearance (Clear) Urine pH (4.5-7.5) Ur Specific [place] (1.000-1.030) Urine Protein (Negative) Urine Glucose (UA) (Negative) Urine Ketones (Negative) Urine Blood (Negative) Urine Nitrite (Negative) Urine Bilirubin (Negative) Urine Urobilinogen (Negative) Ur Leukocyte Esterase (Negative) Acetaminophen (10-30) ug/ml Hep Bs Antigen Neg (Neg) Hepatitis C Antibody Neg (Neg) Influenza Type A (PCR) Neg for Influ A (Neg) Influenza Type B (PCR) Neg for Influ B (Neg) 06/03/18 06/03/18 Range/Units 12:17 12:25 WBC (4.8-10.8) K/uL RBC (4.2-5.4) M/uL Hgb (12.0-16.0) g/dL Hct (37-47) % MCV (80-100) fL MCH (25-34) pg MCHC (32-36) g/dL RDW Std Deviation (36.4-46.3) fL RDW Coeff of Agnes (11.5-14.5) % Plt Count (130-400) K/uL MPV (7.4-10.4) fL Immature Gran % (Auto) % Neut % (Auto) % Lymph % (Auto) % [place] % (Auto) % Eos % (Auto) % Baso % (Auto) % Immature Gran # (Auto) (0.00-0.02) K/uL Neut # (Auto) (1.4-6.5) K/uL Lymph # (Auto) (1.2-3.4) K/uL [place] # (Auto) (0.11-0.59) K/uL Eos # (Auto) (0-0.5) K/uL Baso # (Auto) (0-0.2) K/uL ESR (0-21) mm/hr PT (9.0-12.0) Seconds INR (0.9-1.1) Sodium (136-145) mmol/L Potassium (3.5-5.1) mmol/L Chloride (98-107) mmol/L Carbon Dioxide (21-32) mmol/L Anion Gap (3-11) BUN (7-18) mg/dl Creatinine (0.6-1.2) mg/dl Est Cr Clr Drug Dosing ml/min Est GFR ( Amer) Est GFR (Non-Af Amer) BUN/Creatinine Ratio (10-20) Glucose (70-99) mg/dl Lactate (0.4-2.0) mmol/L Calcium (8.5-10.1) mg/dl Magnesium (1.8-2.4) mg/dl Total Bilirubin (0.2-1) mg/dl Direct Bilirubin (0-0.2) mg/dl AST (15-37) U/L ALT (12-78) U/L Alkaline Phosphatase (45-117) U/L Troponin I (0-0.045) ng/ml C-Reactive Protein (0-0.29) mg/dl Total Protein (6.4-8.2) gm/dl Albumin (3.4-5.0) gm/dl Procalcitonin 0.07 (0-0.5) ng/ml Urine Color Urine Appearance (Clear) Urine pH (4.5-7.5) Ur Specific [place] (1.000-1.030) Urine Protein (Negative) Urine Glucose (UA) (Negative) Urine Ketones (Negative) Urine Blood (Negative) Urine Nitrite (Negative) Urine Bilirubin (Negative) Urine Urobilinogen (Negative) Ur Leukocyte Esterase (Negative) Acetaminophen < 2 L (10-30) ug/ml Hep Bs Antigen (Neg) Hepatitis C Antibody (Neg) Influenza Type A (PCR) (Neg) Influenza Type B (PCR) (Neg) Administered Medications Discontinued Medications Fentanyl Citrate (Fentanyl Citrate) 50 mcg IV NOW STA Stop: 06/03/18 06:01 Last Admin: 06/03/18 06:10 Dose: Not Given Documented by: [id number] Sodium Chloride (Nss 1000ml) 500 mls @ 999 mls/hr IV .Q31M ONE Stop: 06/03/18 06:30 Last Infusion: 06/03/18 06:35 Dose: 0 mls/hr Documented by: [id number] Admin: 06/03/18 06:09 Dose: 999 mls/hr Documented by: [id number] Magnesium Sulfate/Dextrose (Magnesium Sulfate / D5w) 1 gm in 100 mls @ 100 mls/hr IV Q1H NANY Stop: 06/03/18 08:29 Last Infusion: 06/03/18 08:37 Dose: 0 mls/hr Documented by: [id number] Admin: 06/03/18 07:37 Dose: 100 mls/hr Documented by: [id number] Infusion: 06/03/18 07:26 Dose: 0 mls/hr Documented by: [id number] Admin: 06/03/18 06:26 Dose: 100 mls/hr Documented by: [id number] Nitroglycerin (Nitrostat) 0.4 mg SL NOW STA Stop: 06/03/18 05:41 Last Admin: 06/03/18 05:49 Dose: 0.4 mg Documented by: [id number] Ondansetron HCl (Zofran) 4 mg IV NOW STA Stop: 06/03/18 09:55 Last Admin: 06/03/18 10:06 Dose: 4 mg Documented by: [id number] Discharge Plan Visit Data *Final* Discharge Date/Time: 06/03/18 10:37 Chief Complaint: Chest Pain ED Provider: Quincy Trivedi Discharge Problem: Left chest pressure, Hypomagnesemia, Pericarditis Patient Disposition: Admitted As Inpatient Discharge Instructions Interventions: ED Discharge Assessment Last Done: 06/03/18 10:37 Discharge Problem: Pericarditis Qualifiers: Pericarditis type: unspecified type Chronicity: acute Qualified Code(s): I30.9 - Acute pericarditis, unspecified
[2018-06-03 05:46] LABS: Basophils # (auto) 0.05 K/uL (0-0.2); Basophils % (auto) 0.3 %; Eosinophils # (auto) 0.33 K/uL (0-0.5); Eosinophils % (auto) 2.1 %; Hematocrit (blood only) 43.8 % (37-47); Hemoglobin 14.2 g/dL (12.0-16.0); Immature Granulocytes # (auto) 0.06 K/uL (0.00-0.02); Immature Granulocytes % (auto) 0.4 %; Lymphocytes # (auto) 1.42 K/uL (1.2-3.4); Lymphocytes % (auto) 9.1 %; Mean Corpuscular Hgb Conc 32.4 g/dL (32-36); Mean Corpuscular Volume 96.1 fL (80-100); Monocytes # (auto) 1.22 K/uL (0.11-0.59); Monocytes % (auto) 7.8 %; Neutrophils # (auto) 12.52 K/uL (1.4-6.5); Neutrophils % (auto) 80.3 %; Platelet Count 301 K/uL (130-400); RDW Coefficient of Variation 14.2 % (11.5-14.5); RDW Standard Deviation 49.7 fL (36.4-46.3); Red Blood Count 4.56 M/uL (4.2-5.4)
[2018-06-03 06:00] LABS: Prothrombin Time 9.9 Seconds (9.0-12.0)
[2018-06-03] MEDS ORDERED: SODIUM CHLORIDE 0.9% 1000ML 500 ML IV ONE (06:00)
[2018-06-03] MEDS ORDERED: fentaNYL citrate 100 MCG/2 ML VIAL IV STA (06:00)
[2018-06-03 06:05] LABS: Albumin Level 3.2 gm/dl (3.4-5.0); BUN Creatinine Ratio 21.9 (10-20); Bilirubin Direct 0.1 mg/dl (0-0.2); C Reactive Protein 0.43 mg/dl (0-0.29); Calcium 8.5 mg/dl (8.5-10.1); Creatinine Clr Calc Pharmacy 56.8 ml/min; Est GFR (African American) 81.1; Magnesium 1.5 mg/dl (1.8-2.4); Potassium 4.2 mmol/L (3.5-5.1)
[2018-06-03 06:08] LABS: Bilirubin,Total 0.4 mg/dl (0.2-1); Total Protein 6.4 gm/dl (6.4-8.2); Troponin I 0.017 ng/ml (0-0.045)
--- NOTE | 2018-06-03 06:20 | XRay Report ---
XR chest 1V portable CLINICAL HISTORY: Chest pain dyspnea COMPARISON STUDY: 05/15/2018 FINDINGS: The bones soft tissues and hemidiaphragms are normal. The cardiomediastinal silhouette is n ormal. The lungs are clear. The pulmonary vasculature is normal. IMPRESSION: Negative chest. The above report was generated using voice recognition software. It may contain grammatical, syntax or spelling errors. Electronically signed by: Mykel Cohn M.D. 06/03/2018 6:19 AM
[2018-06-03] MEDS: MAGNESIUM SULFATE / D5W 1 GM/100 ML BAG IV SCH ×2 (06:26→07:37)
[2018-06-03 08:12] LABS: Appearance Urine Clear (Clear); Bilirubin Urine Negative (Negative); Blood Urine Negative (Negative); Color Urine Yellow; Glucose Urine UA Negative (Negative); Ketones Urine Negative (Negative); Leukocyte Esterase Urine Negative (Negative); Nitrite Urine Negative (Negative); Protein Urine Negative (Negative); Specific Gravity Urine 1.012 (1.000-1.030); Urobilinogen Urine Negative (Negative)
--- NOTE | 2018-06-03 09:34 | History & Physical Report ---
Date of Service June 03, 2018 Assessment & Plan (1) Chest pain: Pt presents with recurrent chest pain, mostly right-sided. Recently diagnosed with pericarditis/known pericardial effusion. Taking aspirin 650 mg BID but was unable to tolerate colchicine. CRP = 0.43. - Monitor on telemetry - Troponin Q6 hours x 3 - Repeat EKG with recurrent worsening of chest pain - Consult cardiology for additional recommendations - will defer potential repeat ECHO to cardiology. - Continue aspirin 650 mg BID (2) Elevated LFTs: Unclear etiology - new from last admission. - Check Tylenol level, acute hepatitis panel - Check RUQ ultrasound (3) Pericarditis: - Continue aspirin - See plan for chest pain (4) 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: Creatinine appears to be at baseline - will monitor (5) History of non-ST elevation myocardial infarction (NSTEMI): Initial troponin negative without acute EKG changes - continue to monitor on telemetry, troponin x 3 (6) Hypomagnesemia: - Received 2 g of IV mag in ED - repeat labs this afternoon and replete ad ditionally if needed (7) Hypertension: - Mildly elevated in ED - unclear if related to pain and/or anxiety. Continue home meds and monitor (8) Hypothyroidism: - Continue levothyroxine at home dose (9) Dyslipidemia: - Continue atrovastatin 80 mg daily (10) History of pulmonary embolism: - Unable to tolerate IVC filter in the past due to hematoma formation. Both prior PEs were provoked (see HPI) so not on chronic anticoagulation. Will use Lovenox for DVT prophylaxis while admitted. (11) GERD (gastroesophageal reflux disease): - Continue PPI/ranitidine Patient seen and reviewed with attending physician, Dr. Arias. Plan of care discussed and as outlined above. Daughter Krissy was updated at the bedside - all questions answered. Await further recommendations from cardiology. Ronnie Kaye PA-C History of Present Illness Primary Care Provider: PCP - Irene Winchester, This is a 73 y/o female with a PMH of NSTEMI, HTN, hypothyroidism, dyslipidemia, retinal vein occlusion (right), GERD, prior PE (1999 - due to hormone treatment, 2009 - post-op right TKR) and hypertensive kidney disease with CKD III who presents to the ED with recurrent chest pain. Pt was admitted 04/28-05/06/18 with chest pain found secondary to NSTEMI. Pt underwent cardiac cath with PCI and drug-eluting stent placement of LAD (04/28/18) and RCA (04/30/18). Readmitted on 05/15/18 with recurrent chest pain - found to have new anterior pericardial effusion thought secondary to pericarditis. Discharged on 05/17/18 on aspirin 650 mg BID and colchicine. Pt developed severe diarrhea on colchicine so this was discontinued but aspirin continued at same dose. Since discharge, pt has continued to be more fatigued than usual but she reports chest pain was "manageable." Over the past couple days, she has noted increased right-mid chest pain, particularly worse over the past 24 hours. This morning she developed palpitations and more severe chest pain (rated as 5-6/10) so called her daughter who called EMS. She did try a nitro at home without relief though notes resultant headache. Chest pain may radiate to left arm but not to right arm or jaw. This morning she is very nauseated and has "gagged" a few times but no vomiting. Notes diarrhea (small amount) over past few days - this is new as the initial diarrhea from the colchicine had resolved. She has had chills and worsening fatigue over the past 2-3 days but didn't check her temperature so unsure if fever. Associate cough but attributes to recent pericarditis. She has noted mild dyspnea but no wheezing. Dizziness at times but no syncope. Denies calf pain, pedal edema, numbness, tingling. 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 When seen in the ED, her chest pain is currently 2/10 but she continues to complain of nausea. She is frequently falling asleep during the interview. Her daughter (Krissy) at bedside assisted with the history. Allergies Allergy/AdvReac Type Severity Reaction Status Date / Time imipenem Allergy Severe ANAPHYLAXIS Verified 06/03/18 06:34 Sulfa (Sulfonamide Allergy Severe hives,sob, Verified 06/03/18 06:34 Antibiotics) can take Dyazide daptomycin AdvReac Severe Anaphylaxis Unverified 06/03/18 06:34 zoledronic acid AdvReac Mild NAUSEA AND Verified 06/03/18 06:34 VOMITING Home Medications Home Medications Medication Instructions Recorded Confirmed Type Azo Bladder Control 1 cap PO BID 04/28/18 06/03/18 History cholecalciferol (vitamin D3) 2,000 unit PO QAM 04/28/18 06/03/18 History [Vitamin D3] fexofenadine 180 mg PO DAILY PRN 04/28/18 06/03/18 History levothyroxine 150 mcg PO QAM 04/28/18 06/03/18 History omeprazole 20 mg PO QAM 04/28/18 06/03/18 History ranitidine HCl 150 mg PO BID 04/28/18 06/03/18 History Brilinta 90 mg PO BID #60 tab 05/01/18 06/03/18 Rx metoprolol succinate 25 mg PO BID #60 tab 05/01/18 06/03/18 Rx nitroglycerin [Nitrostat] 0.4 mg SUBLINGUAL Q5M #25 tab 05/01/18 06/03/18 Rx atorvastatin 80 mg PO QAM 05/15/18 06/03/18 History lisinopril 2.5 mg PO QAM 05/15/18 06/03/18 History aspirin 81 mg PO HS #0 tab 05/16/18 06/03/18 Rx amoxicillin 500 mg PO UD PRN 06/03/18 06/03/18 History fluticasone [Flonase Allergy 2 spray INTRANASAL BID 06/03/18 06/03/18 History Relief] prednisone 40 mg PO DIRECTED 12 Days #24 06/05/18 Rx tab Past Med/Surg History Medical History Osteoporosis (Chronic) 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 (Chronic) 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) History of non-ST elevation myocardial infarction (NSTEMI) (Chronic) Vitamin B12 deficiency (Chronic) CAD (coronary artery disease) (Chronic) Ischemic cardiomyopathy (Chronic) Hypertension (Chronic) Hypothyroidism (Chronic) Dyslipidemia (Chronic) History of DVT (deep vein thrombosis) (Chronic) History of pulmonary embolism (Chronic) GERD (gastroesophageal reflux disease) (Chronic) Rupture of left posterior tibialis tendon (Resolved) Acute head injury (Resolved) Gastroenteritis (Resolved) Surgical History History of cardiac cath (Chronic) Status post hysterectomy (Resolved) Status post right knee replacement (Resolved) S/P IVC filter (Resolved) S/P BSO (status post bilateral salpingo-oophorectomy) (Resolved) Social History Preferred Language: Slovenian Beliefs That Will Affect Care: None marital status: Current Living Situation: Family Current Living Situation Comment: Daughter and son in law current occupational status: employed Other Information That Helps Us Care for You: No Feels Safe at Home: Yes Safety Concerns: Feels Safe At This Time Smoking Status: Never smoker Hx Alcohol Use: No Hx Substance Use: No Review of Systems All systems reviewed & are unremarkable except as noted in HPI & below Constitutional: + chills, + fatigue, + malaise and + weakness; no fever Eyes: no diplopia and no worsening vision Ear, Nose, Mouth, Throat: no ear pain, no nasal congestion and no sore throat Respiratory: + cough and + dyspnea; no hemoptysis and no wheezing Cardiovascular: + chest pain, + radiating jaw, neck or arm pain, + palpitations and + lightheadedness; no syncope, no edema and no calf pain Gastrointestinal: + nausea and + diarrhea/loose stools; no abdominal pain, no bloating, no heartburn, no vomiting and no constipation Genitourinary (Female): no dysuria, no urinary frequency, no urinary urgency, no urinary incontinence and no hematuria Musculoskeletal: + back pain (upper and mid back) and + muscle weakness; no joint pain Integumentary: no rash and no change in skin color Neurologic: + dizziness and + headache(s) (but relates to nitro); no numbness, no paresthesia, no seizure-like activity and no syncope Psychiatric: + anxiety Physical Exam Vital Signs (Past 24 Hours): Last Vital Signs Temp 36.9 C 06/03/18 05:35 Pulse 101 H 06/03/18 08:40 Resp 20 06/03/18 08:40 BP 152/83 H 06/03/18 08:40 Pulse Ox 92 06/03/18 08:40 Constitutional: + frail appearing frequently sleeping during interview but easily arousable, no acute distress although appears uncomfortable Eyes: PERRL, conjunctivae normal, anicteric sclerae ENMT: external ear and nose normal, oropharynx normal Neck: trachea midline Respiratory: Auscultation: lungs clear to auscultation bilaterally; no rales, no rhonchi and no wheezes Cardiovascular: Rate/Rhythm: regular rhythm and + tachycardic (at a rate of 110) Heart Sounds: no gallop and no murmur Vessels: no carotid bruit Extremities: + pedal edema (trace bilateral) Gastrointestinal (Abdomen): Inspection/Auscultation: normal bowel sounds; abdomen not distended Percussion/Palpation: abdomen soft and + tympanic to percussion; abdomen nontender and no guarding Musculoskeletal: Head/Neck/Chest: normocephalic, head atraumatic, neck supple and + chest tenderness (pain with palpation along right sternal border); no chest wall crepitus Skin: no rashes, warm and dry normal turgor Neurologic: moves all extremities Psychiatric: A+Ox3, euthymic affect Orientation: cooperative Apperance: appropriately groomed Results & Data Laboratory Results Laboratory Results - last 24 hr 06/03/18 06/03/18 06/03/18 05:30 05:30 05:30 WBC 15.60 H RBC 4.56 Hgb 14.2 Hct 43.8 MCV 96.1 MCH 31.1 MCHC 32.4 RDW Std Deviation 49.7 H RDW Coeff of Agnes 14.2 Plt Count 301 MPV 11.0 H Immature Gran % (Auto) 0.4 Neut % (Auto) 80.3 Lymph % (Auto) 9.1 Mckenzie % (Auto) 7.8 Eos % (Auto) 2.1 Baso % (Auto) 0.3 Immature Gran # (Auto) 0.06 H Neut # (Auto) 12.52 H Lymph # (Auto) 1.42 Mckenzie # (Auto) 1.22 H Eos # (Auto) 0.33 Baso # (Auto) 0.05 ESR 9 PT 9.9 INR 1.0 Sodium Potassium Chloride Carbon Dioxide Anion Gap BUN Creatinine Est Cr Clr Drug Dosing Est GFR ( Amer) Est GFR (Non-Af Amer) BUN/Creatinine Ratio Glucose Lactate Calcium Magnesium Total Bilirubin Direct Bilirubin AST ALT Alkaline Phosphatase Troponin I C-Reactive Protein Total Protein Albumin Urine Color Urine Appearance Urine pH Ur Specific Lyndon Urine Protein Urine Glucose (UA) Urine Ketones Urine Blood Urine Nitrite Urine Bilirubin Urine Urobilinogen Ur Leukocyte Esterase 06/03/18 06/03/18 06/03/18 05:30 05:50 07:30 WBC RBC Hgb Hct MCV MCH MCHC RDW Std Deviation RDW Coeff of Agnes Plt Count MPV Immature Gran % (Auto) Neut % (Auto) Lymph % (Auto) Mckenzie % (Auto) Eos % (Auto) Baso % (Auto) Immature Gran # (Auto) Neut # (Auto) Lymph # (Auto) Mckenzie # (Auto) Eos # (Auto) Baso # (Auto) ESR PT INR Sodium 143 Potassium 4.2 Chloride 109 H Carbon Dioxide 27 Anion Gap 8.0 BUN 18 Creatinine 0.83 Est Cr Clr Drug Dosing 56.8 Est GFR ( Amer) 81.1 Est GFR (Non-Af Amer) 70.0 BUN/Creatinine Ratio 21.9 H Glucose 91 Lactate 1.4 Calcium 8.5 Magnesium 1.5 L Total Bilirubin 0.4 Direct Bilirubin 0.1 AST 81 H ALT 138 H Alkaline Phosphatase 186 H Troponin I 0.017 C-Reactive Protein 0.43 H Total Protein 6.4 Albumin 3.2 L Urine Color Yellow Urine Appearance Clear Urine pH 8.0 H Ur Specific Lyndon 1.012 Urine Protein Negative Urine Glucose (UA) Negative Urine Ketones Negative Urine Blood Negative Urine Nitrite Negative Urine Bilirubin Negative Urine Urobilinogen Negative Ur Leukocyte Esterase Negative Diagnostic Findings Chest X-ray 06/02/18 - IMPRESSION: Negative chest. Medications Administered Discontinued Medications Fentanyl Citrate (Fentanyl Citrate) 50 mcg IV NOW STA Stop: 06/03/18 06:01 Last Admin: 06/03/18 06:10 Dose: Not Given Documented by: [id number] Sodium Chloride (Nss 1000ml) 500 mls @ 999 mls/hr IV .Q31M ONE Stop: 06/03/18 06:30 Last Infusion: 06/03/18 06:35 Dose: 0 mls/hr Documented by: [id number] Admin: 06/03/18 06:09 Dose: 999 mls/hr Documented by: [id number] Magnesium Sulfate/Dextrose (Magnesium Sulfate / D5w) 1 gm in 100 mls @ 100 mls/hr IV Q1H NANY Stop: 06/03/18 08:29 Last Infusion: 06/03/18 08:37 Dose: 0 mls/hr Documented by: [id number] Admin: 06/03/18 07:37 Dose: 100 mls/hr Documented by: [id number] Infusion: 06/03/18 07:26 Dose: 0 mls/hr Documented by: [id number] Admin: 06/03/18 06:26 Dose: 100 mls/hr Documented by: [id number] Nitroglycerin (Nitrostat) 0.4 mg SL NOW STA Stop: 06/03/18 05:41 Last Admin: 06/03/18 05:49 Dose: 0.4 mg Documented by: [id number] Ondansetron HCl (Zofran) 4 mg IV NOW STA Stop: 06/03/18 09:55 Last Admin: 06/03/18 10:06 Dose: 4 mg Documented by: [id number] Code Status & VTE Plan Code Status Full resuscitation Supervising Physician Co-Signing Physician Notes Patient was seen and examined. Agreed with Ana Christy exam assessment and plan.73 y/o female with a PMH of NSTEMI, HTN, hypothyroidism, dyslipidemia, retinal vein occlusion (right), GERD, prior PE (1999 - due to hormone treatment, 2009 - post-op right TKR) and hypertensive kidney disease with CKD III who presents to the ED with recurrent chest pain. Pt was admitted 04/28-05/06/18 with chest pain found secondary to NSTEMI. Pt underwent cardiac cath with PCI and drug-eluting stent placement of LAD (04/28/18) and RCA (04/30/18). Readmitted on 05/15/18 with recurrent chest pain - found to have new anterior pericardial effusion thought secondary to pericarditis. Present today for chest pain. Troponin on admission negative. Will repeat the echo. Will consult cardiology. Will continue monitor in tele. MD Juana (1) Pericarditis Chronicity: acute Pericarditis type: unspecified type Qualified Code(s): I30.9 - Acute pericarditis, unspecified
[2018-06-03] MEDS ORDERED: ONDANSETRON INJ 2 MG/ML 2 ML VIAL IV STA (09:54)
[2018-06-03 11:27] LABS: Influenza A virus by PCR Neg for Influ A (Neg); Influenza B virus by PCR Neg for Influ B (Neg)
[2018-06-03] MEDS ORDERED: ONDANSETRON INJ 2 MG/ML 2 ML VIAL IV PRN (12:41)
[2018-06-03 13:04] LABS: Magnesium 2.3 mg/dl (1.8-2.4); Troponin I < 0.015 ng/ml (0-0.045)
[2018-06-03 13:22] LABS: Hepatitis B Surface Antigen Neg (Neg)
[2018-06-03 13:50] LABS: Hepatitis C IgG 13Yrs+Old_Rflx Neg (Neg)
--- NOTE | 2018-06-03 13:58 | Ultrasound Report ---
US liver HISTORY: 73 years-old Female elevated LFTs, nausea acutely elevated LFTs COMPARISON: CTA of the chest 05/15/2018 TECHNIQUE: Multiple real-time sonographic images of the abdominal right upper quadrant were obtained assessing grayscale appearance and color flow FINDINGS: Pancreas appears heterogeneous. The liver is unremarkable without focal mass, marginal nodularity or intrahepatic delayed ductal dilation. Gallbladder is unremarkable without cholelithiasis, wall thicke nadia or pericholecystic fluid. Common bile duct is unremarkable, 4 mm. There are 2 large cyst about the right kidney noted measuring up to 6.9 cm. No right-sided hydronephr osis identified. IMPRESSION: 1. No cholelithiasis or sonographic evidence of acute cholecystitis. 2. No biliary ductal dilation. 3. Large right renal cysts. The above report was generated using voice recognition software. It may contain grammatical, syntax o r spelling errors. Electronically signed by: Elvis Stover M.D. 06/03/2018 1:57 PM
--- NOTE | 2018-06-03 16:57 | Cardiology Consultation ---
Date of Consultation June 03, 2018 Assessment & Plan (1) Pericarditis as complication of acute myocardial infarction: Patient presents to the emergency department with recurrent chest discomfort, elevated CRP, fevers, leukocytosis. Findings may be consistent with recurrent pericarditis. She was recently treated with NSAIDs (high-dose aspirin) since May 15. Discomfort has worsened over the past 24 hours. Cardiac biomarkers are negative. Echocardiogram performed at bedside demonst rates borderline hyperdynamic LV systolic function without regional wall motion abnormalities. Will treat with prednisone 40 mg x1 now with plans for a slow prednisone taper over 6 weeks. Patient cannot tolerate colchicine in the past. Aspirin will be reduced to 81 mg daily. Continue Brilinta uninterrupted. Cultures will be performed to exclude presence of underlying infectious process. X-ray reviewed without infiltrate or edema. Her urinalysis damage rate no signs of infection. Patient denies diarrhea, sick contacts, cough or rhinorrhea. Will continue to monitor closely. (2) CAD in [place] artery: NSTEMI 04/28/2018 s/p AMIE to LAD (culprit) and staged RCA PCI during hospitalization. Troponins negative on subsequent hospitalizations. No r egional wall motion abnormalities on bedside echocardiogram to suggest active ischemia. ECG demonstrates T wave inversions which have improved compared to previous. No ST elevation suggesting of acute injury. (3) Elevated LFTs: High-dose atorvastatin will be placed on hold with plans to restart lower dose alternative statin in the future. Hepatitis panel is pending. (4) Leukocytosis: Suspect secondary to recurrent pericarditis. Acute hepatitis must be excluded. Blood and urine cultures pending at this time. History of Present Illness Reason for Consultation: Chest pain, pericarditis Requesting Physician: Dr. Arias Attending Physician: Fátima Arias MD History of Present Illness 73-year-old female present to the emergency department with fever and chest discomfort. Cardiac enzymes are negative. Recently diagnosed with post myocardial infarction pericarditis and treated with high-dose aspirin. Patient could not tolerate steroids. Her symptoms were worsening and aspirin taper was halted and a higher dose resume per PCP. Currently the patient notes right- sided chest discomfort which is somewhat positional. Repeat echocardiogram demonstrates a small anterior pericardial effusion with moderate organization. No evidence of tamponade. Patient is tachycardic and febrile. Influenza screen is negative. Blood cultures drawn and pending at this time. Her chest x-ray is free of any infiltrates or pulmonary edema. Urinalysis is benign as well. Daughter present at bedside. Allergies Allergy/AdvReac Type Severity Reaction Status Date / Time imipenem Allergy Severe ANAPHYLAXIS Verified 06/03/18 06:34 Sulfa (Sulfonamide Allergy Severe hives,sob, Verified 06/03/18 06:34 Antibiotics) can take Dyazide daptomycin AdvReac Severe Anaphylaxis Unverified 06/03/18 06:34 zoledronic acid AdvReac Mild NAUSEA AND Verified 06/03/18 06:34 VOMITING Home Medications Home Medications Medication Instructions Recorded Confirmed Type Azo Bladder Control 1 cap PO BID 04/28/18 06/03/18 History cholecalciferol (vitamin D3) 2,000 unit PO QAM 04/28/18 06/03/18 History [Vitamin D3] fexofenadine 180 mg PO DAILY PRN 04/28/18 06/03/18 History levothyroxine 150 mcg PO QAM 04/28/18 06/03/18 History omeprazole 20 mg PO QAM 04/28/18 06/03/18 History ranitidine HCl 150 mg PO BID 04/28/18 06/03/18 History Brilinta 90 mg PO BID #60 tab 05/01/18 06/03/18 Rx metoprolol succinate 25 mg PO BID #60 tab 05/01/18 06/03/18 Rx nitroglycerin [Nitrostat] 0.4 mg SUBLINGUAL Q5M #25 tab 05/01/18 06/03/18 Rx acetaminophen [Tylenol Extra 1,000 mg PO Q6 PRN 05/15/18 06/03/18 History Strength] atorvastatin 80 mg PO QAM 05/15/18 06/03/18 History lisinopril 2.5 mg PO QAM 05/15/18 06/03/18 History aspirin 81 mg PO HS #0 tab 05/16/18 06/03/18 Rx aspirin 650 mg PO BID #100 tab 05/16/18 06/03/18 Rx amoxicillin 500 mg PO UD PRN 06/03/18 06/03/18 History fluticasone [Flonase Allergy 2 spray INTRANASAL BID 06/03/18 06/03/18 History Relief] Patient History Medical History Osteoporosis (Chronic) 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 (Chronic) 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) History of non-ST elevation myocardial infarction (NSTEMI) (Chronic) Vitamin B12 deficiency (Chronic) CAD (coronary artery disease) (Chronic) Ischemic cardiomyopathy (Chronic) Hypertension (Chronic) Hypothyroidism (Chronic) Dyslipidemia (Chronic) History of DVT (deep vein thrombosis) (Chronic) History of pulmonary embolism (Chronic) GERD (gastroesophageal reflux disease) (Chronic) Rupture of left posterior tibialis tendon (Resolved) Acute head injury (Resolved) Gastroenteritis (Resolved) Surgical History History of cardiac cath (Chronic) Status post hysterectomy (Resolved) Status post right knee replacement (Resolved) S/P IVC filter (Resolved) S/P BSO (status post bilateral salpingo-oophorectomy) (Resolved) Social History Preferred Language: Belarusian Communication Ability: Effective Beliefs That Will Affect Care: None marital status: Current Living Situation: Family Current Living Situation Comment: Daughter and son in law current occupational status: employed Other Information That Helps Us Care for You: No Feels Safe at Home: Yes Safety Concerns: Feels Safe At This Time Smoking Status: Never smoker Hx Alcohol Use: No Hx Substance Use: No Review of Systems Pertinent positives noted per HPI, conference of 10 system review otherwise negative. Physical Exam Vital Signs (Past 24 Hours): Last Vital Signs Temp 38.5 C H 06/03/18 16:22 Pulse 104 H 06/03/18 16:22 Resp 18 06/03/18 16:22 BP 129/72 06/03/18 16:22 Pulse Ox 94 06/03/18 16:22 Physical Exam: General: Appears uncomfortable and acutely ill, flushed, AAO x3, well nourished. HEENT: Normocephalic. Atraumatic. Conjunctiva pink, no scleral icterus. Neck: No carotid bruits, the carotid upstrokes are brisk. No JVD. No HJR Heart: Regular, tachycardic, normal S-1 and S-2 no S-3 or S-4 gallop. No murmurs or rub appreciated. PMI is not displaced. No RV heave. Lungs: Clear bilateral without rales , rhonchi, or wheeze. Abdomen: Normal bowel sounds. Soft. Nontender. No masses or organomegaly. No abdominal bruits. Extremities: No clubbing, cyanosis, or edema. Pulses: radial=2/4, Dorsalis pedis =2/4, posterior tibial=2/4. Neuro: Cranial nerves grossly intact. No foca l motor deficit.
[2018-06-03] MEDS ORDERED: ACETAMINOPHEN SOLN 500 MG/15.62 ML UDP PO ONE (17:35)
[2018-06-03] MEDS ORDERED: ACETAMINOPHEN 500 MG TAB PO ONE (18:00)
[2018-06-03] MEDS: predniSONE 20 MG TAB PO SCH (18:21)
[2018-06-03] MEDS: TICAGRELOR 90 MG TAB PO SCH (20:18)
[2018-06-03] MEDS: METOPROLOL SUCC 25MG EXT REL TAB PO SCH (20:18)
[2018-06-03] MEDS ORDERED: ASPIRIN 325 MG ECTAB PO SCH (21:00)
[2018-06-04] MEDS: LEVOTHYROXINE SODIUM 150 MCG TABLET PO SCH (06:36)
[2018-06-04] MEDS ORDERED: ACETAMINOPHEN 500 MG TAB PO PRN (06:43)
[2018-06-04 07:28] LABS: Basophils # (auto) 0.03 K/uL (0-0.2); Basophils % (auto) 0.2 %; Hematocrit (blood only) 38.5 % (37-47); Hemoglobin 12.9 g/dL (12.0-16.0); Immature Granulocytes # (auto) 0.05 K/uL (0.00-0.02); Immature Granulocytes % (auto) 0.3 %; Lymphocytes # (auto) 1.44 K/uL (1.2-3.4); Lymphocytes % (auto) 9.7 %; Mean Corpuscular Hgb Conc 33.5 g/dL (32-36); Mean Corpuscular Volume 95.8 fL (80-100); Mean Platelet Volume 10.3 fL (7.4-10.4); Monocytes # (auto) 1.13 K/uL (0.11-0.59); Monocytes % (auto) 7.6 %; Neutrophils # (auto) 12.23 K/uL (1.4-6.5); Neutrophils % (auto) 82.2 %; Platelet Count 263 K/uL (130-400); RDW Coefficient of Variation 14.4 % (11.5-14.5); Red Blood Count 4.02 M/uL (4.2-5.4); White Blood Count 14.88 K/uL (4.8-10.8)
[2018-06-04] MEDS: PANTOprazole 40 MG TAB PO SCH (07:48)
[2018-06-04] MEDS: METOPROLOL SUCC 25MG EXT REL TAB PO SCH ×2 (07:48→20:50)
[2018-06-04] MEDS: LISINOPRIL 2.5 MG TAB PO SCH (07:48)
[2018-06-04] MEDS: ASPIRIN 81 MG CHEW PO SCH (07:48)
[2018-06-04] MEDS: CHOLECALCIFEROL 1,000 UNITS TAB PO SCH (07:48)
[2018-06-04] MEDS: TICAGRELOR 90 MG TAB PO SCH ×2 (07:49→20:50)
[2018-06-04] MEDS: predniSONE 20 MG TAB PO SCH (07:49)
[2018-06-04] MEDS: ENOXAPARIN INJ 40 MG/0.4 ML SYR SQ SCH (07:49)
[2018-06-04 08:05] LABS: Albumin Level 2.7 gm/dl (3.4-5.0); BUN Creatinine Ratio 24.1 (10-20); Calcium 8.2 mg/dl (8.5-10.1); Creatinine Clr Calc Pharmacy 53.7 ml/min; Est GFR (African American) 76.6; Est GFR (Non-African American) 66.1; Potassium 3.7 mmol/L (3.5-5.1)
[2018-06-04 08:08] LABS: Albumin Globulin Ratio 0.8 (0.9-2); Bilirubin,Total 0.5 mg/dl (0.2-1); Globulin 3.4 gm/dl (2.5-4.0); Total Protein 6.1 gm/dl (6.4-8.2)
[2018-06-04] MEDS ORDERED: ATORVASTATIN 40 MG TAB PO SCH (09:00)
--- NOTE | 2018-06-04 10:33 | Cardiology Progress Note ---
Date of Service June 04, 2018 Assessment & Plan (1) Pericarditis as complication of acute myocardial infarction: Clinically improved with addition of corticosteroids. Recommend slow prednisone taper, 40 mg x 5 days then reduce to 30 mg x 7 days. Ultimately plan to taper down to a dose of 2.5 mg daily over 6-8 weeks. Patient intolerant to colchicine. (2) CAD in [place] artery: NSTEMI 04/28/2018 s/p AMIE to LAD (culprit) and staged RCA PCI during h ospitalization. Troponins negative on subsequent hospitalizations. No regional wall motion abnormalities on bedside echocardiogram to suggest active ischemia. ECG demonstrates T wave inversions which have improved compared to previous. No ST elevation suggesting of acute injury. (3) Elevated LFTs: High-dose atorvastatin will be placed on hold with plans to restart lower dose alternative statin in the future. Hepatitis panel is pending. (4) Leukocytosis: Suspect secondary to recurrent pericarditis. Acute hepatitis must be excluded. Blood and urine cultures pending at this time. Subjective Patient seen and examined the bedside. No recurrent fevers overnight. Heart rate has improved. Chest discomfort has improved significantly. Notes a mild soreness worse with deep inspiration. Cardiac enzymes are negative. Offers no other complaints at this time. Review of Systems All systems reviewed & are unremarkable except as noted in HPI & below Physical Exam Vital Signs (Past 24 Hours): Last Vital Signs Temp 36.6 C 06/04/18 07:03 Pulse 103 H 06/04/18 08:00 Resp 16 06/04/18 07:03 BP 110/70 06/04/18 07:03 Pulse Ox 92 06/04/18 07:03 Physical Exam: General: NAD, AAO x3, well nourished. Overweight. HEENT: Normocephalic. Atraumatic. Conjunctiva pink, no scleral icterus. Neck: No carotid bruits, the carotid upstrokes are brisk. No JVD. No HJR Heart: Regular normal S-1 and S-2 no S-3 or S-4 gallop. No murmurs or rub appreciated. PMI is not displaced. No RV heave. Lungs: Clear bilateral without rales , rhonchi, or wheeze. Abdomen: Normal bowel sounds. Soft. Nontender. No masses or organomegaly. No abdominal bruits. Extremities: No clubbing, cyanosis, or edema. Pulses: radial=2/4, Dorsalis pedis =2/4, posterior tibial=2/4. Neuro: Cranial nerves grossly intact. No focal motor deficit.
--- NOTE | 2018-06-04 16:32 | Hospitalist Progress Note ---
Date of Service June 04, 2018 Assessment & Plan (1) Pericarditis as complication of acute myocardial infarction: Pericarditis as complication of acute myocardial infarction: -NSTEMI 04/28/2018 s/p AMIE to LAD (culprit) and staged RCA PCI during previous hospitalization -Patient intolerant to colchicine. -Clinically improved with addition of corticosteroids. cardiology service recommends slow prednisone taper, 40 mg x 5 days then reduce to 30 mg x 7 days. Ultimately plan to taper down to a dose of 2.5 mg daily over 6-8 weeks. CAD in [place] artery: -NSTEMI 04/28/2018 s/p AMIE to LAD (culprit) and staged RCA PCI during previous hospitalization. Troponins negative on subsequent hospitalizations. No regional wall motion abnormalities on bedside echocardiogram to suggest active ischemia. ECG demonstrates T wave inversions which have improved compared to previous. No ST elevation suggesting of acute injury. Leukocytosis Suspect secondary to recurrent pericarditis had fever on 06/03/18 and blood cultures were drawn, no source of a bacterial infection at this time and likely fever could be from pericarditis Transaminitis / Elevated LFTs: -High-dose atorvastatin will be placed on hold with plans to restart lower dose alternative statin in the future. Hepatitis panel is pending. -Liver ultrasound : No cholelithiasis or sonographic evidence of acute cholecystitis ; No biliary ductal dilation. There are 2 large cyst about the right kidney noted measuring up to 6.9 cm. No right-sided hydronephrosis identified -hepatitis panel is negative 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 / Hypertension -Creatinine stable -continue lisinopril and metoprolol Hypothyroidism - Continue levothyroxine at home dose GERD (gastroesophageal reflux disease): - Continue PPI/ranitidine Hypomagnesemia: -stable, had received magnesium on admission History of pulmonary embolism: Unable to tolerate IVC filter in the past due to hematoma formation. Both prior PEs were provoked so not on chronic anticoagulation. use Lovenox for DVT prophylaxis while admitted Patient's daughter Subjective Patient reports improved pain of the chest today. cardiology service has evaluated patient for the pericarditis. Patient is afebrile today. breathing on room air. denies acute shortness of breath. denies abdominal pain. denies vomiting. Physical Exam Vital Signs (Past 24 Hours): Last Vital Signs Temp 36.6 C 03/06/19 15:37 Pulse 103 H 06/04/18 16:00 Resp 18 06/04/18 15:37 BP 116/71 06/04/18 15:37 Pulse Ox 92 06/04/18 15:37 Constitutional: WD/WN, vitals as above Eyes: PERRL, conjunctivae normal, anicteric sclerae ENMT: external ear and nose normal, oropharynx normal Neck: normal visual inspection and trachea midline Respiratory: normal respiratory effort, lungs clear to auscultation Cardiovascular: Rate/Rhythm: regular rhythm Gastrointestinal (Abdomen): normal bowel sounds, soft, nontender, no hepatosplenomegaly Musculoskeletal: Head/Neck/Chest: normocephalic and head atraumatic Neurologic: PERRL, EOMI, accommodation nl, no face palsy, no dysarthria CN's II-XI intact bilaterally Psychiatric: A+Ox3, euthymic affect
[2018-06-04] MEDS ORDERED: ACETAMINOPHEN 325 MG TAB PO PRN (17:38)
[2018-06-04] MEDS ORDERED: LOPERAMIDE HCL 2 MG CAP PO STA (22:41)
[2018-06-04] MEDS ORDERED: ONDANSETRON 4 MG TAB PO PRN (23:42)
[2018-06-05] MEDS: LEVOTHYROXINE SODIUM 150 MCG TABLET PO SCH (05:42)
[2018-06-05] MEDS: LISINOPRIL 2.5 MG TAB PO SCH (08:02)
[2018-06-05] MEDS: CHOLECALCIFEROL 1,000 UNITS TAB PO SCH (08:02)
[2018-06-05] MEDS: TICAGRELOR 90 MG TAB PO SCH (08:04)
[2018-06-05] MEDS: predniSONE 20 MG TAB PO SCH (08:04)
[2018-06-05] MEDS: ASPIRIN 81 MG CHEW PO SCH (08:04)
[2018-06-05] MEDS: METOPROLOL SUCC 25MG EXT REL TAB PO SCH (08:04)
[2018-06-05] MEDS: ENOXAPARIN INJ 40 MG/0.4 ML SYR SQ SCH (08:04)
[2018-06-05] MEDS: PANTOprazole 40 MG TAB PO SCH (08:04)
--- NOTE | 2018-06-05 14:13 | Hospitalist Progress Note ---
Date of Service June 05, 2018 Assessment & Plan (1) Pericarditis as complication of acute myocardial infarction: Pericarditis as complication of acute myocardial infarction: pericarditis as cause of chest pain, -NSTEMI 04/28/2018 s/p AMIE to LAD (culprit) and staged RCA PCI during previous hospitalization -Patient intolerant to colchicine. -Clinically improved with addition of corticosteroids. Patient has prescription made for prednisone 40 mg daily for 5 days then a second prescription for prednisone 30 mg daily for 7 days. Ultimately plan to taper down to a dose of 2.5 mg daily over 6-8 weeks (Patient will need primary care doctor to take over prednisone tapering medications) CAD in [place] artery: -NSTEMI 04/28/2018 s/p AMIE to LAD (culprit) and staged RCA PCI during previous hospitalization. Troponins negative on subsequent hospitalizations. No regional wall motion abnormalities on bedside echocardiogram to suggest active ischemia. ECG demonstrates T wave inversions which have improved compared to previous. No ST elevation suggesting of acute injury. pericarditis as cause of fever Leukocytosis Suspect secondary to recurrent pericarditis had fever on 06/03/18 and blood cultures were drawn, no source of a bacterial infection at this time and likely fever could be from pericarditis Transaminitis / Elevated LFTs: -Liver ultrasound : No cholelithiasis or sonographic evidence of acute cholecystitis ; No biliary ductal dilation. There are 2 large cyst about the r ight kidney noted measuring up to 6.9 cm. No right-sided hydronephrosis identified -hepatitis panel is negative -transaminitis improved and patient may resume taking atorvastatin -Patient may take acetaminophen 325 mg daily every 4 hours as needed for pain or fever Patient should avoid taking more than a total of 2000 mg of acetaminophen in a day -Patient should have labs checked with primary care doctor such as AST/ALT levels 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 / Hypertension -Creatinine stable -continue lisinopril and metoprolol Hypothyroidism - Continue levothyroxine at home dose GERD (gastroesophageal reflux disease): - Continue PPI/ranitidine Hypomagnesemia: -stable, had received magnesium on admission History of pulmonary embolism: Unable to tolerate IVC filter in the past due to hematoma formation. Both prior PEs were provoked so not on chronic anticoagulation. use Lovenox for DVT prophylaxis while admitted Discharge Diagnosis Pericarditis as complication of acute myocardial infarction, pericarditis as cause of chest pain, pericarditis as cause of fever, Transaminitis (resolving), Hypomagnesemia (resolved), Hypertension, Hypothyroidism Discharge Instructions Patient has prescription made for prednisone 40 mg daily for 5 days then a second prescription for prednisone 30 mg daily for 7 days. Ultimately plan to taper down to a dose of 2.5 mg daily over 6-8 weeks (Patient will need primary care doctor to take over prednisone tapering medications) Patient may take acetaminophen 325 mg daily every 4 hours as needed for pain or fever Patient should avoid taking more than a total of 2000 mg of acetaminophen in a day Patient should have labs checked with primary care doctor such as AST/ALT levels 06/09/2018 3:00 PM Provider Viet Braden MD Department Internal Medicine [facility] 06/12/2018 2:15 PM Provider Pedro Tinsley DO Department Ophthalmology, [facility] 06/16/2018 11:00 AM Provider Charles Ortega DO Department Cardiology, [facility] 06/19/2018 9:30 AM Provider Jennifer Marquis MD Department Dermatology [facility] 07/03/2018 4:00 PM Provider Jennifer Marquis MD Department Dermatology [facility] 07/14/2018 8:00 AM Provider Arlene Wilhelm PA-C Department Internal Medicine [facility] Subjective Patient denies acute chest pain. Patient denies shortness of breath. patient denies abdominal pain. has been afebrile Physical Exam Vital Signs (Past 24 Hours): Last Vital Signs Temp 36.7 C 06/05/18 14:02 Pulse 74 06/05/18 14:02 Resp 16 06/05/18 14:02 BP 150/84 H 06/05/18 14:02 Pulse Ox 95 06/05/18 14:02 Constitutional: WD/WN, vitals as above Eyes: PERRL, conjunctivae normal, anicteric sclerae ENMT: external ear and nose normal, oropharynx normal Neck: normal visual inspection and trachea midline Respiratory: normal respiratory effort, lungs clear to auscultation Cardiovascular: Rate/Rhythm: regular rhythm Gastrointestinal (Abdomen): normal bowel sounds, soft, nontender, no hepatosplenomegaly Musculoskeletal: Head/Neck/Chest: normocephalic and head atraumatic Neurologic: PERRL, EOMI, accommodation nl, no face palsy, no dysarthria CN's II-XI intact bilaterally Psychiatric: A+Ox3, euthymic affect
--- NOTE | 2018-06-05 14:21 | Discharge Summary ---
Date of Service June 05, 2018 Admission HPI Per Admitting Provider This is a 73 y/o female with a PMH of NSTEMI, HTN, hypothyroidism, dyslipidemia, retinal vein occlusion (right), GERD, prior PE (1999 - due to hormone treatment, 2009 - post-op right TKR) and hypertensive kidney disease with CKD III who presents to the ED with recurrent chest pain. Pt was admitted 04/28-05/06/18 with chest pain found secondary to NSTEMI. Pt underwent cardiac cath with PCI and drug-eluting stent placement of LAD (04/28/18) and RCA (04/30/18). Readmitted on 05/15/18 with recurrent chest pain - found to have new anterior pericardial effusion thought secondary to pericarditis. Discharged on 05/17/18 on aspirin 650 mg BID and colchicine. Pt developed severe diarrhea on colchicine so this was discontinued but aspirin continued at same dose. Since discharge, pt has continued to be more fatigued than usual but she reports chest pain was "manageable." Over the past couple days, she has noted increased right-mid chest pain, particularly worse over the past 24 hours. This morning she developed palpitations and more severe chest pain (rated as 5-6/10) so called her daughter who called EMS. She did try a nitro at home without relief though notes resultant headache. Chest pain may radiate to left arm but not to right arm or jaw. This morning she is very nauseated and has "gagged" a few times but no vomiting. Notes diarrhea (small amount) over past few days - this is new as the initial diarrhea from the colchicine had resolved. She has had chills and worsening fatigue over the past 2-3 days but didn't check her temperature so unsure if fever. Associate cough but attributes to recent pericarditis. She has noted mild dyspnea but no wheezing. Dizziness at times but no syncope. Denies calf pain, pedal edema, numbness, tingling. 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 When seen in the ED, her chest pain is currently 2/10 but she continues to complain of nausea. She is frequently falling asleep during the interview. Her daughter (Krissy) at bedside assisted with the history. Admission Exam Per Admitting Provider Constitutional: + frail appearing frequently sleeping during interview but easily arousable, no acute distress although appears uncomfortable Eyes: PERRL, conjunctivae normal, anicteric sclerae ENMT: external ear and nose normal, oropharynx normal Neck: trachea midline Respiratory: Auscultation: lungs clear to auscultation bilaterally; no rales, no rhonchi and no wheezes Cardiovascular: Rate/Rhythm: regular rhythm and + tachycardic (at a rate of 110) Heart Sounds: no gallop and no murmur Vessels: no carotid bruit Extremities: + pedal edema (trace bilateral) Gastrointestinal (Abdomen): Inspection/Auscultation: normal bowel sounds; abdomen not distended Percussion/Palpation: abdomen soft and + tympanic to percussion; abdomen nontender and no guarding Musculoskeletal: Head/Neck/Chest: normocephalic, head atraumatic, neck supple and + chest tenderness (pain with palpation along right sternal border); no chest wall crepitus Skin: no rashes, warm and dry normal turgor Neurologic: moves all extremities Psychiatric: A+Ox3, euthymic affect Orientation: cooperative Apperance: appropriately groomed Principal Diagnosis Pericarditis as complication of acute myocardial infarction, pericarditis as cause of chest pain, pericarditis as cause of fever, Transaminitis (resolving), Hypomagnesemia (resolved), Hypertension, Hypothyroidism Discharge Exam Constitutional WD/WN, vitals as above Eyes PERRL, conjunctivae normal, anicteric sclerae ENMT external ear and nose normal, oropharynx normal Neck normal visual inspection and trachea midline Respiratory normal respiratory effort, lungs clear to auscultation Cardiovascular Rate/Rhythm: regular rhythm Gastrointestinal (Abdomen) normal bowel sounds, soft, nontender, no hepatosplenomegaly Musculoskeletal Head/Neck/Chest: normocephalic and head atraumatic Neurologic PERRL, EOMI, accommodation nl, no face palsy, no dysarthria CN's II-XI intact bilaterally Psychiatric A+Ox3, euthymic affect Discharge Data Allergies Allergy/AdvReac Type Severity Reaction Status Date / Time imipenem Allergy Severe ANAPHYLAXIS Verified 06/03/18 06:34 Sulfa (Sulfonamide Allergy Severe hives,sob, Verified 06/03/18 06:34 Antibiotics) can take Dyazide daptomycin AdvReac Severe Anaphylaxis Unverified 06/03/18 06:34 zoledronic acid AdvReac Mild NAUSEA AND Verified 06/03/18 06:34 VOMITING Consultations 06/03/18 07:26 ED Decision to Admit Stat 06/03/18 11:37 Consult Cardiology Routine Ordered Studies 06/03/18 11:37 US liver Routine Hospital Course (1) Pericarditis as complication of acute myocardial infarction: Pericarditis as complication of acute myocardial infarction: pericarditis as cause of chest pain, -NSTEMI 04/28/2018 s/p AMIE to LAD (culprit) and staged RCA PCI during previous hospitalization -Patient intolerant to colchicine. -Clinically improved with addition of corticosteroids. Patient has prescription made for prednisone 40 mg daily for 5 days then a second prescription for prednisone 30 mg daily for 7 days. Ultimately plan to taper down to a dose of 2.5 mg daily over 6-8 weeks (Patient will need primary care doctor to take over prednisone tapering medications) CAD in [place] artery: -NSTEMI 04/28/2018 s/p AMIE to LAD (culprit) and staged RCA PCI during previous hospitalization. Troponins negative on subsequent hospitalizations. No regional wall motion abnormalities on bedside echocardiogram to suggest active ischemia. ECG demonstrates T wave inversions which have improved compared to previous. No ST elevation suggesting of acute injury. pericarditis as cause of fever Leukocytosis Suspect secondary to recurrent pericarditis had fever on 06/03/18 and blood cultures were drawn, no source of a bacterial infection at this time and likely fever could be from pericarditis Transaminitis / Elevated LFTs: -Liver ultrasound : No cholelithiasis or sonographic evidence of acute cholecystitis ; No biliary ductal dilation. There are 2 large cyst about the right kidney noted measuring up to 6.9 cm. No right-sided hydronephrosis identified -hepatitis panel is negative -transaminitis improved and patient may resume taking atorvastatin -Patient may take acetaminophen 325 mg daily every 4 hours as needed for pain or fever Patient should avoid taking more than a total of 2000 mg of acetaminophen in a day -Patient should have labs checked with primary care doctor such as AST/ALT levels 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 / Hypertension -Creatinine stable -continue lisinopril and metoprolol Hypothyroidism - Continue levothyroxine at home dose GERD (gastroesophageal reflux disease): - Continue PPI/ranitidine Hypomagnesemia: -stable, had received magnesium on admission History of pulmonary embolism: Unable to tolerate IVC filter in the past due to hematoma formation. Both prior PEs were provoked so not on chronic anticoagulation. use Lovenox for DVT prophylaxis while admitted Discharge Diagnosis Pericarditis as complication of acute myocardial infarction, pericarditis as cause of chest pain, pericarditis as cause of fever, Transaminitis (resolving), Hypomagnesemia (resolved), Hypertension, Hypothyroidism Discharge Instructions Patient has prescription made for prednisone 40 mg daily for 5 days then a second prescription for prednisone 30 mg daily for 7 days. Ultimately plan to taper down to a dose of 2.5 mg daily over 6-8 weeks (Patient will need primary care doctor to take over prednisone tapering medications) Patient may take acetaminophen 325 mg daily every 4 hours as needed for pain or fever Patient should avoid taking more than a total of 2000 mg of acetaminophen in a day Patient should have labs checked with primary care doctor such as AST/ALT levels 06/09/2018 3:00 PM Provider Viet Braden MD Department Internal Medicine [facility] 06/12/2018 2:15 PM Provider Pedro Tinsley DO Department Ophthalmology, [facility] 06/16/2018 11:00 AM Provider Charles Ortega DO Department Cardiology, [facility] 06/19/2018 9:30 AM Provider Jennifer Marquis MD Department Dermatology [facility] 07/03/2018 4:00 PM Provider Jennifer Marquis MD Department Dermatology [facility] 07/14/2018 8:00 AM Provider Arlene Wilhelm PA-C Department Internal Medicine [facility] Total Time Total Time Spent Total Time Spent (In Minutes): 40 minutes Total Time Includes: Examination of the Patient, Discharge Planning and Medication Reconciliation Discharge Plan Discharge Items Patient Disposition: Home - Self-Care Reason For Visit: CHEST PAIN Discharge Diagnosis: Pericarditis as complication of acute myocardial infarction, pericarditis as cause of chest pain, pericarditis as cause of fever, Transaminitis (resolving), Hypomagnesemia (resolved), Hypertension, Hypothyroidism Condition: Good Discharge Goals: Improve disease control Activity: Resume your previous activity Non-emergency contact: Primary Care Provider and Financial Assistance Specialist Call non-emergency contact if: you have any medication questions Follow-up/Referrals: Irene Winchester DO [Primary Care Provider] - Diet: Regular Addtl Provider Instructions: Patient has prescription made for prednisone 40 mg daily for 5 days then a second prescription for prednisone 30 mg daily for 7 days. Ultimately plan to taper down to a dose of 2.5 mg daily over 6-8 weeks (Patient will need primary care doctor to take over prednisone tapering medications) Patient may take acetaminophen 325 mg daily every 4 hours as needed for pain or fever Patient should avoid taking more than a total of 2000 mg of acetaminophen in a day Patient should have labs checked with primary care doctor such as AST/ALT levels 06/09/2018 3:00 PM Provider Viet Braden MD Department Internal Medicine [facility] 06/12/2018 2:15 PM Provider Pedro Tinsley DO Department Ophthalmology, [facility] 06/16/2018 11:00 AM Provider Charles Ortega DO Department Cardiology, [facility] 06/19/2018 9:30 AM Provider Jennifer Marquis MD Department Dermatology [facility] 07/03/2018 4:00 PM Provider Jennifer Marquis MD Department Dermatology [facility] 07/14/2018 8:00 AM Provider Arlene Wilhelm PA-C Department Internal Medicine [facility] Prescriptions: New acetaminophen [Mapap (acetaminophen)] 325 mg Tablet 325 mg PO Q4H PRN (Reason: fever or pain) 5 Days Qty: 30 RF: 0 prednisone 20 mg Tablet 40 mg PO DIRECTED 12 Days Qty: 24 RF: 0 Continued fexofenadine 180 mg Tablet 180 mg PO DAILY PRN (Reason: Allergy Symptoms) RF: 0 ranitidine HCl 150 mg Tablet 150 mg PO BID RF: 0 omeprazole 20 mg Tablet,Delayed Release (Dr/Ec) 20 mg PO QAM RF: 0 cholecalciferol (vitamin D3) [Vitamin D3] 2,000 unit Tablet 2,000 unit PO QAM RF: 0 levothyroxine 150 mcg Capsule 150 mcg PO QAM RF: 0 Azo Bladder Control 300 mg Capsule 1 cap PO BID RF: 0 nitroglycerin [Nitrostat] 0.4 mg tablet, sublingual 0.4 mg Sublingual Q5M Qty: 25 RF: 3 metoprolol succinate 25 mg tablet extended release 24 hr 25 mg PO BID Qty: 60 RF: 11 Brilinta 90 mg tablet 90 mg PO BID Qty: 60 RF: 11 amoxicillin 500 mg Capsule 500 mg PO UD PRN (Reason: Prophylaxis) RF: 0 fluticasone [Flonase Allergy Relief] 50 mcg/actuation [place],Suspension 2 spray INTRANASAL BID RF: 0 atorvastatin 80 mg tablet 80 mg PO QAM RF: 0 lisinopril 2.5 mg tablet 2.5 mg PO QAM RF: 0 aspirin 81 mg Tablet,Delayed Release (Dr/Ec) 81 mg PO HS Qty: 0 RF: 0 Discontinued acetaminophen [Tylenol Extra Strength] 500 mg Tablet 1,000 mg PO Q6 PRN (Reason: Pain) RF: 0 aspirin 325 mg tablet,delayed release (DR/EC) 650 mg PO BID Qty: 100 RF: 0 Stand-Alone Forms: Call Back Authorization, [facility]/Other Patient Handouts: Stress Manage Healthy Lifestyle, Foods Heart Healthy Discharge Orders: Discharge Order (Routine); Ordered 06/05/18 Ordered By: Elmer Nicole Admission Data Admit Date/Time: 06/04/18 16:48 Attending Provider: Elmer Nicole Admit Provider: Fátima Arias Primary Care Provider: Irene Winchester Other Providers: Fátima Arias ; Charles Ortega Service: Medical Other Interventions: Discharge Summary Assessment (RN) Last Done: 06/05/18 14:02
== END 2018-06-05 15:07 | disposition home or self-care (01) | DRG 315 ==
LOC: ED 05:26 → 2S 05:26 → SUATTDRO 08:09 → 2S 10:37 → 3N 06-04 16:49
DX: Z86.711 Personal history of pulmonary embolism; I23.8 Other current complications following acute myocardial infarction; I25.2 Old myocardial infarction; I25.10 Atherosclerotic heart disease of native coronary artery without angina pectoris; E78.5 Hyperlipidemia, unspecified; R94.5 Abnormal results of liver function studies; K21.9 Gastro-esophageal reflux disease without esophagitis; N18.3 Chronic kidney disease, stage 3 (moderate); I24.1 Dressler's syndrome; Z88.2 Allergy status to sulfonamides; Z79.52 Long term (current) use of systemic steroids; R74.0 Nonspecific elevation of levels of transaminase and lactic acid dehydrogenase [LDH]; Z79.82 Long term (current) use of aspirin; I12.9 Hypertensive chronic kidney disease with stage 1 through stage 4 chronic kidney disease, or unspecified chronic kidney disease; Z88.1 Allergy status to other antibiotic agents; Z79.899 Other long term (current) drug therapy; E83.42 Hypomagnesemia; E03.9 Hypothyroidism, unspecified; Z79.02 Long term (current) use of antithrombotics/antiplatelets; Z95.5 Presence of coronary angioplasty implant and graft; I42.9 Cardiomyopathy, unspecified

== ENCOUNTER 2018-11-13 09:02 | Observation (INO) ==
[2018-11-13 09:41] LABS: Basophils # (auto) 0.03 K/uL (0-0.2); Basophils % (auto) 0.2 %; Hematocrit (blood only) 40.3 % (37-47); Hemoglobin 13.3 g/dL (12.0-16.0); Immature Granulocytes # (auto) 0.04 K/uL (0.00-0.02); Immature Granulocytes % (auto) 0.3 %; Lymphocytes # (auto) 1.36 K/uL (1.2-3.4); Lymphocytes % (auto) 10.6 %; Mean Corpuscular Volume 95.5 fL (80-100); Monocytes % (auto) 3.9 %; Neutrophils # (auto) 10.93 K/uL (1.4-6.5); Platelet Count 340 K/uL (130-400); RDW Coefficient of Variation 14.4 % (11.5-14.5); RDW Standard Deviation 49.8 fL (36.4-46.3); Red Blood Count 4.22 M/uL (4.2-5.4); White Blood Count 12.86 K/uL (4.8-10.8)
--- NOTE | 2018-11-13 09:42 | XRay Report ---
XR chest 1V portable CLINICAL HISTORY: Chest Pain pain COMPARISON STUDY: 06/03/2018 FINDINGS: The bones soft tissues and hemidiaphragms are normal. The cardiomediastinal silhouette is n ormal. The lungs are clear. The pulmonary vasculature is normal. Small hiatal hernia IMPRESSION: Negative chest. Small hiatal hernia The above report was generated using voice recognition software. It may contain grammatical, syntax or spelling errors. Electronically signed by: Mykel Cohn M.D. 11/13/2018 9:41 AM
[2018-11-13 09:57] LABS: Albumin Level 3.4 gm/dl (3.4-5.0); Aspartate Aminotransferase 16 U/L (15-37); BUN Creatinine Ratio 23.9 (10-20); Blood Urea Nitrogen 19 mg/dl (7-18); Calcium 8.7 mg/dl (8.5-10.1); Carbon Dioxide 24 mmol/L (21-32); Chloride 114 mmol/L (98-107); Creatinine Clr Calc Pharmacy 58.7 ml/min; Est GFR (African American) 83.5; Est GFR (Non-African American) 72.1; Glucose 144 mg/dl (70-99); Potassium 3.8 mmol/L (3.5-5.1); Sodium 144 mmol/L (136-145)
[2018-11-13 10:03] LABS: Alanine Aminotransferase 90 U/L (12-78); Alkaline Phosphatase 240 U/L (45-117); Bilirubin,Total 0.5 mg/dl (0.2-1); Globulin 3.3 gm/dl (2.5-4.0); Total Protein 6.7 gm/dl (6.4-8.2); Troponin I < 0.015 ng/ml (0-0.045)
[2018-11-13] MEDS ORDERED: OPTIRAY 320 125ml IV PRN (10:31)
--- NOTE | 2018-11-13 10:47 | CT Scan Report ---
CT angio chest PE protocol CLINICAL HISTORY: 73 years-old Female presenting with shortness of breath, nonproductive cough, heada ches, elevated d-dimer, recently started on lisinopril for hypertension, history of [place] in April. TECHNIQUE: Multidetector CT angiography of the chest was performed after administration of intravenou s contrast. 3-D volumetric and/or maximum intensity projection (MIP) images were subsequently reconst ructed for review. IV contrast: 120 mL of Optiray 320. One or more dose lowering techniques were used consistent with the principles of ALARA (as low as reasonably achievable), including automatic expos ure control, mA or kV adjustment to individual patient size, and/or use of iterative reconstruction. COMPARISON: CTA chest from 05/15/2018. CT DOSE (mGy.cm): The estimated cumulative dose is 445.84 mGycm. FINDINGS: Staff Scientist topogram: Unremarkable. Pulmonary vasculature: The study is suboptimal for the assessment of the pulmonary vascular tree secondary to respiratory mo tion artifact. Allowing for limited image quality, no central filling defect to suggest pulmonary emb olus. Main pulmonary artery is not enlarged. No flattening of the interventricular septum. No intraca rdiac filling defect. No reflux of contrast into the hepatic veins. Remaining chest: Soft tissues: Thyroid not visualized due to extensive artifact at the base of the neck. No axillary, supraclavicular, mediastinal, or hilar lymphadenopathy. Atherosclerosis of the aorta. Tortuosity of t he branch vessels in the neck suggest a history of chronic hypertension. Mild multichamber enlargemen t of the heart. Coronary artery and aortic valve calcification. No pericardial or pleural effusion. L arge sliding-type hiatal hernia. Large left renal cyst. Lungs and airways: No pneumothorax. Central airways patent. Pulmonary arteries are not significantly enlarged relative to adjacent bronchi. No interlobular septal thickening. Evaluation of the lung pare nchyma degraded by respiratory motion artifact. Allowing for this, bibasilar consolidation volume los s consistent with atelectasis. Musculoskeletal: Degenerative changes of the spine. IMPRESSION: 1. Allowing for suboptimal image quality, no evidence of pulmonary embolus. No acute intrathoracic p athology. 2. Minimal bibasilar atelectasis. 3. Mild cardiomegaly. 4. Large hiatal hernia. Electronically signed by: James Borja M.D. 11/13/2018 10:46 AM
--- NOTE | 2018-11-13 11:59 | Ultrasound Report ---
US venous doppler LE BI HISTORY: Pain. Edema. ? dvt COMPARISON STUDY: None. FINDINGS: There is normal compressibility, flow, and augmentation within the bilateral lower extremit y deep venous systems. IMPRESSION: No DVT within the right or left lower extremity. The above report was generated using voice recognition software. It may contain grammatical, syntax or spelling errors. Electronically signed by: Mykel Cohn M.D. 11/13/2018 11:58 AM
[2018-11-13] MEDS ORDERED: ALBUTEROL 0.083% NEBU SOLN 3 ML VIAL NEB STA (14:07)
--- NOTE | 2018-11-13 14:21 | History & Physical Report ---
Date of Service November 13, 2018 Assessment & Plan (1) Dyspnea on exertion: This is a 73-year-old female who has a significant past medical history of CAD with history of NSTEMI 04/28/18 PCI AMIE to LAD with staged PCI AMIE to RCA 05/01 complicated with pericarditis and recurrent admissions 05/20 and 06/17 tx with steroids and ASA, intolerant to colchicine. 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 In ED patient troponin WNL and ecg compared to prior, appears stable/improved WBC elevated 12.86, CBC and CMP otherwise unremarkable except for elevated ALT 90 and ALP 240. Venous doppler negative for DVT, CTA: 1. Allowing for suboptimal image quality, no evidence of pulmonary embolus. No acute intrathoracic pathology. 2. Minimal bibasilar atelectasis. 3. Mild cardiomegaly. 4. Large hiatal hernia. SOSA x 2 weeks with prior hx of CAD and recurrent pericarditis will admit under observation for further work up admit to tele consult cardiology Dr. Miranda - aware Pt with uncontrolled HTN on admission on lisinopril and BB. Add HCTZ and titrate antihypertensive regimen trend troponin repeat ECG Pt had echo 08/2018 EF 55%, pericardial effusion absent Sx concerning for more pulmonary pathology vs cardiology - asthma exac will trial albuterol and flovent (2) Asthma exacerbation, mild: sx likely secondary to acute asthma exac will initiate flovent HFA bid and prn albuterol albuterol neb ordered in ED (3) Leukocytosis: WBC 12k no sign or sx of infection recently treated for UT, currently asymptomatic repeat in a.m. (4) CAD (coronary artery disease): no chest pain, troponin WNL, ecg unchanged NSTEMI 04/28/2018 s/p AMIE to LAD (culprit) and staged RCA PCI during previous hospitalization 04/28/18 continue ASA, Statin, BB, LIBAN (5) Hypertension: Blood pressure elevated on arrival, per patient blood pressure has been labile in outpatient setting for the past 2 to 3 weeks. Lisinopril discontinued 2 weeks ago and reinitiated on 11/12 at 5 mg daily Also on metoprolol succinate BID Add HCTZ 12.5mg daily ( previously had been on combo in past and tolerated) and would recommend titrating lisinopril consider switching metoprolol to coreg for improved BP control monitor (6) Dyslipidemia: Continue statin Lipid panel in a.m. (7) Hypothyroidism: Continue levothyroxine Check TSH/T4 (8) History of pulmonary embolism: hx of PE/DVT s/p IVCF since removed due to perforation and large hematoma d-dimer elevated to 0.67 in outpt setting CTA and dopplers negative (9) Hiatal hernia: continue PPI BID and Ranitidine BID (10) Elevated LFTs: Prior hospitalization 06/05: "-Liver ultrasound : No cholelithiasis or sonographic evidence of acute cholecystitis ; No biliary ductal dilation. There are 2 large cyst about the right kidney noted measuring up to 6.9 cm. No right-sided hydronephrosis identified. Hepatitis panel is negative" on Statin ALT 90, ALP 248 monitor recommend outpt f/u (11) DVT prophylaxis: lovenox Disposition: d/c to home when able Follow up: PCP Dr. Winchester upon discharge Patient was seen and examined in collaboration with Dr. Cavanaugh, please see addendum History of Present Illness Chief Complaint: SOSA x 2 weeks. Primary Care Provider: Irene Winchester, This is a 73-year-old female who has a significant past medical history of CAD with history of NSTEMI 04/28/18 PCI AMIE to LAD with staged PCI AMIE to RCA 05/01 complicated with pericarditis and recurrent admissions 05/20 and 06/17 tx with katelyn roids and ASA, intolerant to colchicine. 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 Patient was seen by outpatient provider yesterday due to above symptoms. She received a call today that her troponin and d-dimer were elevated and she should be further evaluated at ED. She also notes she recently got over urinary tract infection approximately 1 week ago which she was treated with Cipro and amoxicillin, symptoms have resolved. Over the past 2 weeks she is been complaining of dyspnea on exertion with moderate activity. Also associated wheezing, rhinorrhea, watery eyes, dry cough, slight increase in lower extremity edema, increased blood pressure, occasional headache, 5lb weight gain over few months. When SOSA is present she complains of right sided chest, "aching," that her symptoms are prior pericarditis. She denies any fever, chills, sweats, lightheadedness, dizziness, syncope, shortness breath at rest, orthopnea, PND, hemoptysis, nausea, vomiting, diarrhea, abdominal pain, dysuria, hematuria, increased urgency or frequency with urination. She has tried [id number] Elke with minimal relief of her symptoms. She does note she has a prior history of asthma and describes her shortness of breath symptoms feeling similar to, "asthma attack," but has been many years since she has had this. Was prescribed prednisone 40mg x 5 days at outpt office yesterday. Allergies Allergy/AdvReac Type Severity Reaction Status Date / Time imipenem Allergy Severe ANAPHYLAXIS Verified 11/13/18 10:20 Sulfa (Sulfonamide Allergy Severe hives,sob, Verified 11/13/18 10:20 Antibiotics) can take Dyazide daptomycin AdvReac Severe Anaphylaxis Unverified 11/13/18 10:20 colchicine AdvReac Intermediate diarrhea Verified 11/13/18 14:30 zoledronic acid AdvReac Mild NAUSEA AND Verified 11/13/18 10:20 VOMITING Home Medications Home Medications Medication Instructions Recorded Confirmed Type Azo Bladder Control 1 cap PO QAM 04/28/18 11/13/18 History cholecalciferol (vitamin D3) 2,000 unit PO QAM 04/28/18 11/13/18 History [Vitamin D3] fexofenadine 180 mg PO DAILY PRN 04/28/18 11/13/18 History levothyroxine 150 mcg PO QAM 04/28/18 11/13/18 History omeprazole 20 mg PO BID 04/28/18 11/13/18 History ranitidine HCl 150 mg PO BID 04/28/18 11/13/18 History Brilinta 90 mg PO BID #60 tab 05/01/18 11/13/18 Rx metoprolol succinate 25 mg PO BID #60 tab 05/01/18 11/13/18 Rx nitroglycerin [Nitrostat] 0.4 mg SUBLINGUAL Q5M #25 tab 05/01/18 11/13/18 Rx atorvastatin 80 mg PO QAM 05/15/18 11/13/18 History aspirin 81 mg PO HS #0 tab 05/16/18 11/13/18 Rx amoxicillin 500 mg PO UD PRN 06/03/18 11/13/18 History fluticasone propionate [Flonase 2 spray INTRANASAL BID PRN 06/03/18 11/13/18 History Allergy Relief] acetaminophen [Tylenol Extra 1,000 mg PO QAM 11/13/18 11/13/18 History Strength] lisinopril 5 mg PO QAM 11/13/18 11/13/18 History prednisone 40 mg PO QAM 11/13/18 11/13/18 History Past Med/Surg History Medical History Osteoporosis (Chronic) 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 (Chronic) 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) History of non-ST elevation myocardial infarction (NSTEMI) (Chronic) Vitamin B12 deficiency (Chronic) CAD (coronary artery disease) (Chronic) Ischemic cardiomyopathy (Chronic) Non-ST elevated myocardial infarction (non-STEMI) (Resolved) Hypertension (Chronic) Hypothyroidism (Chronic) Dyslipidemia (Chronic) History of DVT (deep vein thrombosis) (Chronic) History of pulmonary embolism (Chronic) GERD (gastroesophageal reflux disease) (Chronic) Rupture of left posterior tibialis tendon (Resolved) Surgical History History of cardiac cath (Chronic) Status post hysterectomy (Resolved) Status post right knee replacement (Resolved) S/P IVC filter (Resolved) S/P BSO (status post bilateral salpingo-oophorectomy) (Resolved) Family History Father Coronary heart disease Mother Stroke Other Hypertension Social History Preferred Language: Japanese Communication Ability: Effective Insole Beveler Required: No Beliefs That Will Affect Care: None marital status: Current Living Situation: Family Current Living Situation Comment: Daughter and son in law current occupational status: employed Feels Safe at Home: Yes Smoking Status: Never smoker Second Hand Exposure: No ; Hx Alcohol Use: No Hx Substance Use: No Review of Systems Review of Systems: As noted per HPI, 10 systems reviewed and negative unless noted above. Physical Exam Physical Exam: Gen: WD/WN, F, NAD, sitting up in bed, pleasant, conversing easily Head: Normocephalic, Atraumatic Eyes: Sclera normal, no conjunctival injection, PERRLA, EOMI ENT: Gross hearing intact, normal pharynx, mucous membranes moist Neck: supple, no adenopathy, No JVD, no bruit, Resp: Clear to auscultation b/l, no wheeze, rales, rhonchi. Normal insp/exp effort, no accessory muscle use CV: Regular rate, regular rhythm, no murmur, rub, gallop, or ectopy Abd: +BS x 4, soft, nontender, nondistended Musculoskeletal: moves extremities active rom x 4, strength intact, good parts counter representative strength Extremities: trace edema bilaterally, more lymph edema than pitting Skin: warm, moist, no rash, negative turgor, cap refill < 2sec Neuro: Alert and oriented x 3, speech normal, good mood/affect, cran nerve 2-12 intact grossly : deferred Results & Data Vital Signs (Past 12 Hours) Vital Signs Temp Pulse Pulse Resp BP BP Pulse Ox 11/13/18 14:00 70 19 173/94 H 95 11/13/18 13:59 77 20 176/100 H 97 11/13/18 13:32 81 20 154/86 H 97 11/13/18 12:12 83 23 159/112 H 96 11/13/18 10:13 96 H 16 173/100 H 95 11/13/18 09:07 36.7 C 101 H 22 187/91 H 99 Laboratory Results Short CBC 11/13/18 11/13/18 Range/Units 09:31 09:31 WBC 12.86 H (4.8-10.8) K/uL Hgb 13.3 (12.0-16.0) g/dL Hct 40.3 (37-47) % Plt Count 340 (130-400) K/uL ALT 90 H (12-78) U/L Alkaline Phosphatase 240 H (45-117) U/L Troponin I < 0.015 (0-0.045) ng/ml [facility] 11/13/18 09:31 Sodium 144 Potassium 3.8 Chloride 114 H Carbon Dioxide 24 BUN 19 H Creatinine 0.81 Glucose 144 H Calcium 8.7 Cardiac Enzymes 11/13/18 Range/Units 09:31 Troponin I < 0.015 (0-0.045) ng/ml Liver Function 11/13/18 Range/Units 09:31 Total Bilirubin 0.5 (0.2-1) mg/dl AST 16 (15-37) U/L ALT 90 H (12-78) U/L Alkaline Phosphatase 240 H (45-117) U/L Albumin 3.4 (3.4-5.0) gm/dl Diagnostic Findings Venous Doppler: IMPRESSION: No DVT within the right or left lower extremity. Chest CTA: IMPRESSION: 1. Allowing for suboptimal image quality, no evidence of pulmonary embolus. No acute intrathoracic pathology. 2. Minimal bibasilar atelectasis. 3. Mild cardiomegaly. 4. Large hiatal hernia. CXR: IMPRESSION: Negative chest. Small hiatal hernia Medications Administered Ioversol (Optiray 320 125ml) 120 ml IV ONCE PRN PRN Reason: Interaction Checking Stop: 11/17/18 10:30 Last Admin: 11/13/18 10:32 Dose: 120 ml Documented by: [id number] ECG Rate (beats per minute): 97 Findings: + nonspecific-ST abn Change: the following changes noted Additional Comments: Compared to ECG rom 05/20 and 06/17 ST T wave inv laterally are less apparent still with nonspecific ST changes anterolaterally but again much less pronounced Code Status & VTE Plan Code Status Full Code VTE Prophylaxis Plan VTE Prophylaxis will be ordered: Yes Supervising Physician Co-Signing Physician Notes Attending addendum: Patient was seen and examined in the emergency room She has been complaining of shortness of breath for 1 week without any significant chest pain and/or palpitation He has significant cardiac history and was noted to have slightly elevated troponin as an outpatient and she was advised to come to the emergency room He denies any symptoms in the emergency room and has been feeling a lot better Her EKG, CTA were unremarkable On examination No apparent distress at rest Hemodynamically stable Chest-clear, no wheezing noted and no crackles Heart S1-S2-, regular Abdomen-benign Extremities-chronic bilateral leg edema likely secondary to lymphedema Admission labs, imaging studies reviewed Doubt any ACS and/or pericarditis at this time, no embolism and/or DVT Agree with assessment and plan as outlined above by FREDDIE Tyson Dr
[2018-11-13 15:35] LABS: Magnesium 1.8 mg/dl (1.8-2.4); Troponin I < 0.015 ng/ml (0-0.045)
[2018-11-13] MEDS ORDERED: ALUMINUM/MAGNESIUM SUSP 30 ML UDC PO PRN (15:37)
[2018-11-13] MEDS ORDERED: ALBUTEROL HFA 8 GM INHALER INH PRN (15:37)
[2018-11-13] MEDS ORDERED: POLYETHYLENE (MIRALAX) 17 GM PACK PO PRN (15:37)
[2018-11-13] MEDS ORDERED: ACETAMINOPHEN 325 MG TAB PO PRN (15:37)
[2018-11-13] MEDS ORDERED: MAGNESIUM HYDROXIDE SUSP 30 ML UDC PO PRN (15:37)
[2018-11-13] MEDS ORDERED: FEXOFENADINE HCL 180 MG TAB PO PRN (15:37)
[2018-11-13] MEDS ORDERED: NITROGLYCERIN SL 0.4 MG/TAB TAB SL PRN (15:37)
[2018-11-13] MEDS ORDERED: FLUTICASONE PROPIONATE NA SPR 16 GM BTL PRN (15:37)
[2018-11-13] MEDS ORDERED: ONDANSETRON INJ 2 MG/ML 2 ML VIAL IV PRN (15:37)
--- NOTE | 2018-11-13 15:52 | Emergency Department Note ---
Entered by Maria Guadalupe Feliz acting as a scribe for Mu Sheridan DO History of Present Illness General Chief complaint: Cardiac Assessment Stated complaint: D-DIMER 0.67,TROPONIN 16, SENT BY FAMILY DOC Source: patient Mode of arrival: ambulatory Limitations: no limitations History of Present Illness Onset (ago): week(s) 2 Location: chest Pain Consistency: + intermittent Maximum Pain Intensity: 3 Relieved By: + none Exacerbated By: + movement (exertion) Associated symptoms: + headaches, + nausea/vomiting (+nausea, -vomiting) and + shortness of breath; no chest pain Treatments prior to arrival: none The patient is a 73 year old female w/ PMHx of CT, pericarditis, CKD, DVT, PE, IVC filter who presents to the ED w/ CC of needing a cardiac assessment. She states she has been increasingly short of breath for the past 2 weeks. Her breathing is worsened by exertion. She denies any chest pain. She admits to a headache and nausea. She has not vomited. She notes she did have a previous CT in April of 2018. She had 2 cardiac stents placed here at [facility]. The patient saw her doctor yesterday and had blood work drawn. Her doctor called her and told her the labs came back abnormal, elevated Troponin and D-Dimer, so she was referred here to the ED. She does take daily Brilinta. Home Medications Home Medications Medication Instructions Recorded Confirmed Type Azo Bladder Control 1 cap PO QAM 04/28/18 11/13/18 History cholecalciferol (vitamin D3) 2,000 unit PO QAM 04/28/18 11/13/18 History [Vitamin D3] fexofenadine 180 mg PO DAILY PRN 04/28/18 11/13/18 History levothyroxine 150 mcg PO QAM 04/28/18 11/13/18 History omeprazole 20 mg PO BID 04/28/18 11/13/18 History ranitidine HCl 150 mg PO BID 04/28/18 11/13/18 History Brilinta 90 mg PO BID #60 tab 05/01/18 11/13/18 Rx metoprolol succinate 25 mg PO BID #60 tab 05/01/18 11/13/18 Rx nitroglycerin [Nitrostat] 0.4 mg SUBLINGUAL Q5M #25 tab 05/01/18 11/13/18 Rx atorvastatin 80 mg PO QAM 05/15/18 11/13/18 History aspirin 81 mg PO HS #0 tab 05/16/18 11/13/18 Rx amoxicillin 500 mg PO UD PRN 06/03/18 11/13/18 History fluticasone propionate [Flonase 2 spray INTRANASAL BID PRN 06/03/18 11/13/18 Hi story Allergy Relief] acetaminophen [Tylenol Extra 1,000 mg PO QAM 11/13/18 11/13/18 History Strength] lisinopril 5 mg PO QAM 11/13/18 11/13/18 History prednisone 40 mg PO QAM 11/13/18 11/13/18 History Allergies Allergy/AdvReac Type Severity Reaction Status Date / Time imipenem Allergy Severe ANAPHYLAXIS Verified 11/13/18 10:20 Sulfa (Sulfonamide Allergy Severe hives,sob, Verified 11/13/18 10:20 Antibiotics) can take Dyazide daptomycin AdvReac Severe Anaphylaxis Unverified 11/13/18 10:20 colchicine AdvReac Intermediate diarrhea Verified 11/13/18 14:30 zoledronic acid AdvReac Mild NAUSEA AND Verified 11/13/18 10:20 VOMITING Past Med/Surg History Medical History Osteoporosis (Chronic) 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 (Chronic) 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) History of non-ST elevation myocardial infarction (NSTEMI) (Chronic) Vitamin B12 deficiency (Chronic) CAD (coronary artery disease) (Chronic) Ischemic cardiomyopathy (Chronic) Non-ST elevated myocardial infarction (non-STEMI) (Resolved) Hypertension (Chronic) Hypothyroidism (Chronic) Dyslipidemia (Chronic) History of DVT (deep vein thrombosis) (Chronic) History of pulmonary embolism (Chronic) GERD (gastroesophageal reflux disease) (Chronic) Rupture of left posterior tibialis tendon (Resolved) Surgical History History of cardiac cath (Chronic) Status post hysterectomy (Resolved) Status post right knee replacement (Resolved) S/P IVC filter (Resolved) S/P BSO (status post bilateral salpingo-oophorectomy) (Resolved) Family History Father Coronary heart disease Mother Stroke Other Hypertension Social History Preferred Language: Pashto Communication Ability: Effective 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 and A total of 10 systems reviewed and were otherwise negative Physical Exam Vital Signs Vital Signs - 24 hr 11/13/18 09:07 11/13/18 09:44 11/13/18 10:13 Temperature 36.7 C Temperature Source Oral Sepsis Recent Fever Within 48 Hours No Sepsis New/Unexplained Change in Mental Status No Sepsis Action Taken by Nursing No Action Required Pulse Rate 101 H Pulse Rate [Apical] 96 H Pulse Rate from SpO2 Sensor Respiratory Rate 22 16 Respiratory Effort / Characteristics Non-Labored Respiratory Depth Normal Respiratory Pattern Regular Blood Pressure 187/91 H Blood Pressure [Left Arm] 173/100 H Blood Pressure Mean 123 Blood Pressure Mean [Left Arm] 124 Pulse Oximetry 99 95 Oxygen Delivery Method Room Air Room Air Room Air 11/13/18 12:12 11/13/18 13:32 Temperature Temperature Source Sepsis Recent Fever Within 48 Hours Sepsis New/Unexplained Change in Mental Status Sepsis Action Taken by Nursing Pulse Rate 83 81 Pulse Rate [Apical] Pulse Rate from SpO2 Sensor 83 80 Respiratory Rate 23 20 Respiratory Effort / Characteristics Respiratory Depth Respiratory Pattern Blood Pressure 159/112 H 154/86 H Blood Pressure [Left Arm] Blood Pressure Mean 127 108 Blood Pressure Mean [Left Arm] Pulse Oximetry 96 97 Oxygen Delivery Method Room Air Room Air GENERAL: Patient is sitting up in bed, alert, non-toxic EYE EXAM: normal conjunctiva OROPHARYNX: no exudate, no erythema, lips, buccal mucosa, and tongue normal and mucous membranes are moist NECK: supple, no nuchal rigidity, no adenopathy, non-tender LUNGS: Clear to auscultation. Normal chest wall mechanics HEART: no murmurs, S1 normal and S2 normal ABDOMEN: abdomen soft, non-tender, normo-active bowel sounds, no masses, no rebound or guarding. BACK: Back is symmetrical on inspection and there is no deformity, no midline tenderness, no CVA tenderness. SKIN: no rashes and no bruising UPPER EXTREMITIES: upper extremities are grossly normal. LOWER EXTREMITIES: No pitting edema. Calves are equal bilaterally. NEURO EXAM: Normal sensorium, cranial nerves II-XII grossly intact, normal speech, no gross weakness of arms, no gross weakness of leg. Gross sensation intact. Course ED COURSE: Vital signs were reviewed and showed the patient is hypertensive and tachycardic The patients medical record was reviewed The above diagnostic studies were performed and reviewed. ED treatments and interventions as stated above. 0928: The patient was evaluated in room B9. A complete history and physical examination was performed. 1148: I discussed the patients case with Jone Nunez Cardiology. He recommends further evaluation by the hospital medicine team. 1150: Upon reevaluation, the patient is resting comfortably. I discussed my findings with the patient and she understands and agrees with the treatment plan. 1225: I discussed the patients case with Jone Hodge Hospitalist. The patient will be further evaluated. Based on the patients age, coexisting illnesses, exam and lab findings the decision to treat as an inpatient was made. The patient remained stable while under my care. The patient will be evaluated for further management. Administered Medications Discontinued Medications Albuterol (Ventolin 0.083% 2.5mg/3ml) 2.5 mg NEB NOW STA Stop: 11/13/18 14:08 Last Admin: 11/13/18 14:41 Dose: 2.5 mg Documented by: [id number] Ioversol (Optiray 320 125ml) 120 ml IV ONCE PRN PRN Reason: Interaction Checking Stop: 11/17/18 10:30 Last Admin: 11/13/18 10:32 Dose: 120 ml Documented by: [id number] Medical Decision Making Differential Diagnosis Differential diagnoses includes but is not limited to pneumonia, bronchitis, COPD/Asthma exacerbation, pneumothorax, pulmonary embolism, congestive heart failure, acute coronary syndrome. Medical Records Attestation: I reviewed the patient's medical records. Home Medications Current Medication List: was personally reviewed by me Laboratory Data Attestation: I reviewed the patient's lab results. Result diagrams: 11/13/18 09:31 11/13/18 09:31 Lab Results 11/13/18 11/13/18 Range/Units 09:31 09:31 WBC 12.86 H (4.8-10.8) K/uL RBC 4.22 (4.2-5.4) M/uL Hgb 13.3 (12.0-16.0) g/dL Hct 40.3 (37-47) % MCV 95.5 (80-100) fL MCH 31.5 (25-34) pg MCHC 33.0 (32-36) g/dL RDW Std Deviation 49.8 H (36.4-46.3) fL RDW Coeff of Agnes 14.4 (11.5-14.5) % Plt Count 340 (130-400) K/uL MPV 10.0 (7.4-10.4) fL Immature Gran % (Auto) 0.3 % Neut % (Auto) 85.0 % Lymph % (Auto) 10.6 % Clay % (Auto) 3.9 % Eos % (Auto) 0.0 % Baso % (Auto) 0.2 % Immature Gran # (Auto) 0.04 H (0.00-0.02) K/uL Neut # (Auto) 10.93 H (1.4-6.5) K/uL Lymph # (Auto) 1.36 (1.2-3.4) K/uL Clay # (Auto) 0.50 (0.11-0.59) K/uL Eos # (Auto) 0.00 (0-0.5) K/uL Baso # (Auto) 0.03 (0-0.2) K/uL Sodium 144 (136-145) mmol/L Potassium 3.8 (3.5-5.1) mmol/L Chloride 114 H (98-107) mmol/L Carbon Dioxide 24 (21-32) mmol/L Anion Gap 6.0 (3-11) BUN 19 H (7-18) mg/dl Creatinine 0.81 (0.6-1.2) mg/dl Est Cr Clr Drug Dosing 58.7 ml/min Est GFR ( Amer) 83.5 Est GFR (Non-Af Amer) 72.1 BUN/Creatinine Ratio 23.9 H (10-20) Glucose 144 H (70-99) mg/dl Calcium 8.7 (8.5-10.1) mg/dl Total Bilirubin 0.5 (0.2-1) mg/dl AST 16 (15-37) U/L ALT 90 H (12-78) U/L Alkaline Phosphatase 240 H (45-117) U/L Troponin I < 0.015 (0-0.045) ng/ml Total Protein 6.7 (6.4-8.2) gm/dl Albumin 3.4 (3.4-5.0) gm/dl Globulin 3.3 (2.5-4.0) gm/dl Albumin/Globulin Ratio 1.0 (0.9-2) Lipase 76 (73-393) U/L Imaging Data Radiologist's Impression: Radiology results as stated below per my review and the radiologist's interpretation: US venous doppler LE BI HISTORY: Pain. Edema. ? dvt COMPARISON STUDY: None. FINDINGS: There is normal compressibility, flow, and augmentation within the bilateral lower extremity deep venous systems. IMPRESSION: No DVT within the right or left lower extremity. The above report was generated using voice recognition software. It may contain grammatical, syntax or spelling errors. Electronically signed by: Mykel Cohn M.D. 11/13/2018 11:[address] angio chest PE protocol CLINICAL HISTORY: 73 years-old Female presenting with shortness of breath, nonproductive cough, headaches, elevated d-dimer, recently started on lisinopril for hypertension, history of CT in April. TECHNIQUE: Multidetector CT angiography of the chest was performed after administration of intravenous contrast. 3-D volumetric and/or maximum intensity projection (MIP) images were subsequently reconstructed for review. IV contrast: 120 mL of Optiray 320. One or more dose lowering techniques were used consistent with the principles of ALARA (as low as reasonably achievable), including automatic exposure control, mA or kV adjustment to individual patient size, and/or use of iterative reconstruction. COMPARISON: CTA chest from 05/15/2018. CT DOSE (mGy.cm): The estimated cumulative dose is 445.84 mGycm. 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 Pulmonary vasculature: The study is suboptimal for the assessment of the pulmonary vascular tree secondary to respiratory motion artifact. Allowing for limited image quality, no central filling defect to suggest pulmonary embolus. Main pulmonary artery is not enlarged. No flattening of the interventricular septum. No intracardiac filling defect. No reflux of contrast into the hepatic veins. Remaining chest: Soft tissues: Thyroid not visualized due to extensive artifact at the base of the neck. No axillary, supraclavicular, mediastinal, or hilar lymphadenopathy. Atherosclerosis of the aorta. Tortuosity of the branch vessels in the neck suggest a history of chronic hypertension. Mild multichamber enlargement of the heart. Coronary artery and aortic valve calcification. No pericardial or pleural effusion. Large sliding-type hiatal hernia. Large left renal cyst. Lungs and airways: No pneumothorax. Central airways patent. Pulmonary arteries are not significantly enlarged relative to adjacent bronchi. No interlobular septal thickening. Evaluation of the lung parenchyma degraded by respiratory motion artifact. Allowing for this, bibasilar consolidation volume loss consistent with atelectasis. Musculoskeletal: Degenerative changes of the spine. IMPRESSION: 1. Allowing for suboptimal image quality, no evidence of pulmonary embolus. No acute intrathoracic pathology. 2. Minimal bibasilar atelectasis. 3. Mild cardiomegaly. 4. Large hiatal hernia. Electronically signed by: James Borja M.D. 11/13/2018 10:46 AM XR chest 1V portable CLINICAL HISTORY: Chest Pain pain COMPARISON STUDY: 06/03/2018 FINDINGS: The bones soft tissues and hemidiaphragms are normal. The cardiomediastinal silhouette is normal. The lungs are clear. The pulmonary vasculature is normal. Small hiatal hernia IMPRESSION: Negative chest. Small hiatal hernia The above report was generated using voice recognition software. It may contain grammatical, syntax or spelling errors. Electronically signed by: Mykel Cohn M.D. 11/13/2018 9:41 AM ECG Data Attestation: I personally reviewed and interpreted this ECG as follows: Indication: SOB/dyspnea Rate (beats per minute): 97 Rhythm: sinus rhythm Findings: + other (Normal axis) and + ST depression (septal, anterior, lateral) Comparison ECG Date: from (06/03/2018) Change: the following changes noted (EKG is improved from previous) Blood Pressure Blood Pressure Findings: Elevated blood pressure Blood Pressure Disposition: further management by hospitalist CHILANGO Torres Patient is a 73-year-old female who presents the ER with past medical history of CAD, hypertension and hyperlipidemia for positive d-dimer and and troponin in the outpatient lab yesterday. IV was established blood work was obtained and showed a mild leukocytosis of 12.8 thousand. BMP was unremarkable with exception of a slightly elevated glucose. Bilirubin and LFTs were remarkable for an ALT of 90. TSH was unremarkable. Troponin was negative. Chest x-ray without any focal infiltrate. CT of the chest was indeterminate due to poor study but no PE seen. Duplexes were obtained in the lower extremities. Discussed with cardiology as patient had a positive troponin in the outpatient lab. Decision was made to observe the patient and discussed with the hospitalist and updated patient at bedside. Patient has no chest pain or shortness of breath at this time and negative troponin. Impression & Plan Dyspnea on exertion, Elevated troponin Discharge Plan Visit Data *Final* Discharge Date/Time: 11/13/18 15:17 Chief Complaint: Cardiac Assessment Stated Complaint: D-DIMER 0.67,TROPONIN 16, SENT BY FAMILY DOC ED Provider: Mu Sheridan Discharge Problem: Dyspnea on exertion, Elevated troponin Patient Disposition: Admitted As Inpatient Discharge Instructions Interventions: ED Discharge Assessment Last Done: 11/13/18 15:17 The scribe's documentation has been prepared under my direction and personally reviewed by me in its entirety. I confirm that the note above accurately reflects all work, treatment, procedures, and medical decision making performed by me.
[2018-11-13 15:53] LABS: T4 Free Thyroxine 1.75 ng/dl (0.8-1.6)
[2018-11-13] MEDS: hydroCHLOROthiazide 25 MG TAB PO SCH (16:33)
[2018-11-13] MEDS: PANTOprazole 40 MG TAB PO SCH (20:46)
[2018-11-13] MEDS: METOPROLOL SUCC 25MG EXT REL TAB PO SCH (20:46)
[2018-11-13] MEDS: TICAGRELOR 90 MG TAB PO SCH (20:47)
[2018-11-13] MEDS: FLUTICASONE HFA 110MCG INHALER INH SCH (20:48)
[2018-11-13] MEDS ORDERED: ASPIRIN 81 MG ECTAB PO SCH (21:00)
[2018-11-14 06:24] LABS: Hematocrit (blood only) 37.4 % (37-47); Hemoglobin 12.3 g/dL (12.0-16.0); Mean Corpuscular Hgb Conc 32.9 g/dL (32-36); Mean Corpuscular Volume 95.2 fL (80-100); Mean Platelet Volume 9.7 fL (7.4-10.4); Platelet Count 329 K/uL (130-400); RDW Coefficient of Variation 14.6 % (11.5-14.5); RDW Standard Deviation 50.7 fL (36.4-46.3); Red Blood Count 3.93 M/uL (4.2-5.4)
[2018-11-14] MEDS ORDERED: LEVOTHYROXINE SODIUM 150 MCG TABLET PO SCH (06:30)
[2018-11-14 06:35] LABS: Partial Thromboplastin Ratio 0.9; Partial Thromboplastin Time 23.3 Seconds (21.0-31.0); Prothrombin Time 10.1 Seconds (9.0-12.0)
[2018-11-14 06:56] LABS: BUN Creatinine Ratio 25.6 (10-20); Blood Urea Nitrogen 20 mg/dl (7-18); Calcium 8.5 mg/dl (8.5-10.1); Carbon Dioxide 26 mmol/L (21-32); Chloride 113 mmol/L (98-107); Creatinine Clr Calc Pharmacy 61.4 ml/min; Est GFR (African American) 88.8; Est GFR (Non-African American) 76.6; Glucose 76 mg/dl (70-99); Potassium 3.5 mmol/L (3.5-5.1); Sodium 146 mmol/L (136-145)
[2018-11-14] MEDS ORDERED: POTASSIUM CHLORIDE 20 MEQ TABCR PO STA (07:30)
[2018-11-14] MEDS ORDERED: MAGNESIUM SULFATE / D5W 1 GM/100 ML BAG IV ONE (08:00)
[2018-11-14] MEDS: METOPROLOL SUCC 25MG EXT REL TAB PO SCH (08:19)
[2018-11-14] MEDS: TICAGRELOR 90 MG TAB PO SCH (08:19)
[2018-11-14] MEDS: FLUTICASONE HFA 110MCG INHALER INH SCH (08:23)
[2018-11-14] MEDS: hydroCHLOROthiazide 25 MG TAB PO SCH (08:23)
[2018-11-14] MEDS: PANTOprazole 40 MG TAB PO SCH (08:24)
[2018-11-14] MEDS ORDERED: POTASSIUM CHLORIDE / WTR 10 MEQ/100 ML PLCT IV ONE (08:30)
[2018-11-14] MEDS ORDERED: LISINOPRIL 5 MG TAB PO SCH (09:00)
[2018-11-14] MEDS ORDERED: ATORVASTATIN 40 MG TAB PO SCH (09:00)
[2018-11-14] MEDS ORDERED: ENOXAPARIN INJ 40 MG/0.4 ML SYR SQ SCH (09:00)
[2018-11-14] MEDS ORDERED: predniSONE 20 MG TAB PO SCH (09:00)
[2018-11-14] MEDS ORDERED: CHOLECALCIFEROL 1,000 UNITS TAB PO SCH (09:00)
--- NOTE | 2018-11-14 09:07 | Cardiology Consultation ---
Date of Consultation November 14, 2018 Assessment & Plan (1) Dyspnea on exertion: (2) CAD in [place] artery: (3) Hypertension: Of concern is whether or not her symptoms are reminiscent of her prior angina. She states that her anginal equivalent at the time of her non-ST segment elevation myocardial infarct in April 2018 was different, it was a chest pressure, with left shoulder and left arm discomfort. She states that the symptoms are definitely different. It is reassuring that her repeat troponin has been within normal limits x2 thus far, and the initial elevation was only mild, and it was with a different assay and that must be taken into account. Unfortunately her EKG is somewhat unhelpful because she has chronic T wave changes, the subtle ST depression noted on presentation yesterday however is concerning, and I feel that additional ischemic work-up must be pursued. The patient's symptoms she states are not definitely reminiscent of her prior pericarditis symptoms. I have requested an erythrocyte sedimentation rate and a C-reactive protein. I plan on proceeding with a resting echocardiogram to determine if there has been a change in her regional wall motion, overall ventricular systolic function, and to assess for occult pericardial disease that perhaps has reoccurred. If your ischemic work-up is within normal limits, one consideration is whether or not she is feeling exertional shortness of breath due to diastolic dysfunction with labile hypertension. She states that she had mild lower extremity edema which has improved since going back on her HCTZ and for the time being will continue this.Her magnesium and potassium levels were borderline low (upper limit of normal) and these are being replaced intravenously. She has not missed her aspirin or Brilinta. In terms of medications for underlying coronary heart disease she is to continue metoprolol, lisinopril, atorvastatin 80 mg. For now we will continue prednisone 40 mg, and await lab results, although I think it may be more prudent to start her on a lower dose depending upon findings of the above testing this will be readdressed. Continue Lovenox 40 mg subcu daily for DVT prophylaxis. Regarding the telemetry finding of transient bradycardia, this is during hours of sleep, and I think we can just monitor this for now. History of Present Illness Attending Physician: Elmer Nicole MD History of Present Illness Rehana Moran is a 73 year old female seen in caridoly consultation per the request of Gokul Veras PA-C of the [facility] service for the evaluation of shortness of breath with exertion. Patient states that for the last 2 weeks she has noted shortness of breath with exertion particularly while she is at work doing her job. 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 She has noted recent shortness of breath with doing these chores. She initially felt that it was due to the recent heat and humidity, however her symptoms per sisted. She has also noted a vague right-sided chest discomfort. She had been seen by primary care 2 days ago. She was placed on a course of prednisone 40 mg daily and it taken 2 doses, also blood work was performed including a d-dimer which was elevated as well as a highly sensitive troponin which was minimally elevated at 16 ng/L with normal range 0-14 ng/L. Her proBNP screen was also minimally elevated at 596 PG per mL. Work-up thus far has included a lower extremity venous duplex that was negative for DVT, and a CT angiogram of the chest although somewhat limited by motion artifact, excluded large vessel pulmonary embolism. The patient's TSH is low consistent with hyperthyroidism and she is already on thyroid supplementation medication, and this has been watched closely, with suspected need for adjustment of her dose at this point. From a cardiac perspective, troponin has been repeated x2 at [facility] Has been within normal limits. She performed 11/13/2018 at 9:20 AM revealed normal sinus rhythm at 97 bpm with T wave inversion and 0.[address] depression noted in the precordial leads V2 to V5.Repeat EKG this morning reveals sinus rhythm with deep T wave inversions noted in the precordial leads and resolution of the PVC noted mild ST depression. When compared to historical recent EKGs, these T wave inversions have been present to some degree although it varying amplitudes since her initial myocardial infarction event at the took place in April 2018. At present, the patient is feeling well with absolutely no distress. She states that she does not feel short of breath however she feels that her symptoms usually come on with exertion and she of course is not exerting herself in bed at present. She does have a vague resting chest discomfort that is not changed with deep inspiration or with position that is over her right rib margin. This was a symptom that have been prompting past treatments for pericarditis, although it appears to be at a lesser extent. The patient also has had labile hypertension. Due to low blood pressures, her lisinopril dose has been adjusted, and her lisinopril/HCTZ has been discontinued in August,. PAST CARDIAC HISTORY: Her cardiac history dates back to April 2018 she presented with a non-ST segment elevation myocardial infarction on 04/28/2018. She underwent cardiac catheterization and drug-eluting stent to a culprit LAD stenosis, and then had staged PCI to the right coronary artery during that hospital stay. After her initial myocardial infarction, she has had treatment for recurrent postmyocardial infarction pericarditis has been on several courses of prednisone for that indication as well as for other indications with her pericarditis having initially been refractory to high-dose aspirin and she had intolerance to colchicine with GI upset. She most recently been placed on another course of prednisone for sinusitis, 40Milligrams for 5 days before having been placed back on it 2 days ago. Her most recent echocardiogram performed as an outpatient in August,Revealed normal biventricular systolic function with no regional wall motion abnormal is, and resolution of the previously noted loculated anterior pericardial effusion. Allergies Allergy/AdvReac Type Severity Reaction Status Date / Time imipenem Allergy Severe ANAPHYLAXIS Verified 11/13/18 10:20 Sulfa (Sulfonamide Allergy Severe hives,sob, Verified 11/13/18 10:20 Antibiotics) can take Dyazide daptomycin AdvReac Severe Anaphylaxis Unverified 11/13/18 10:20 colchicine AdvReac Intermediate diarrhea Verified 11/13/18 14:30 zoledronic acid AdvReac Mild NAUSEA AND Verified 11/13/18 10:20 VOMITING Home Medications Home Medications Medication Instructions Recorded Confirmed Type Azo Bladder Control 1 cap PO QAM 04/28/18 11/13/18 History cholecalciferol (vitamin D3) 2,000 unit PO QAM 04/28/18 11/13/18 History [Vitamin D3] fexofenadine 180 mg PO DAILY PRN 04/28/18 11/13/18 History levothyroxine 150 mcg PO QAM 04/28/18 11/13/18 History omeprazole 20 mg PO BID 04/28/18 11/13/18 History ranitidine HCl 150 mg PO BID 04/28/18 11/13/18 History Brilinta 90 mg PO BID #60 tab 05/01/18 11/13/18 Rx metoprolol succinate 25 mg PO BID #60 tab 05/01/18 11/13/18 Rx nitroglycerin [Nitrostat] 0.4 mg SUBLINGUAL Q5M #25 tab 05/01/18 11/13/18 Rx atorvastatin 80 mg PO QAM 05/15/18 11/13/18 History aspirin 81 mg PO HS #0 tab 05/16/18 11/13/18 Rx amoxicillin 500 mg PO UD PRN 06/03/18 11/13/18 History fluticasone propionate [Flonase 2 spray INTRANASAL BID PRN 06/03/18 11/13/18 History Allergy Relief] acetaminophen [Tylenol Extra 1,000 mg PO QAM 11/13/18 11/13/18 History Strength] lisinopril 5 mg PO QAM 11/13/18 11/13/18 History prednisone 40 mg PO QAM 11/13/18 11/13/18 History Patient History Medical History Osteoporosis (Chronic) 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 (Chronic) 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) History of non-ST elevation myocardial infarction (NSTEMI) (Chronic) Vitamin B12 deficiency (Chronic) CAD (coronary artery disease) (Chronic) Ischemic cardiomyopathy (Chronic) Non-ST elevated myocardial infarction (non-STEMI) (Resolved) Hypertension (Chronic) Hypothyroidism (Chronic) Dyslipidemia (Chronic) History of DVT (deep vein thrombosis) (Chronic) History of pulmonary embolism (Chronic) GERD (gastroesophageal reflux disease) (Chronic) Rupture of left posterior tibialis tendon (Resolved) Surgical History History of cardiac cath (Chronic) Status post hysterectomy (Resolved) Status post right knee replacement (Resolved) S/P IVC filter (Resolved) S/P BSO (status post bilateral salpingo-oophorectomy) (Resolved) Family History Father Coronary heart disease Mother Stroke Other Hypertension Social History Preferred Language: Chinese Communication Ability: Effective [employer]ia[employer] Special Staff Required: No Beliefs That Will Affect Care: None marital status: Current Living Situation: Family Current Living Situation Comment: lives in own apartment at daughter's house current occupational status: employed Other Information That Helps Us Care for You: No Feels Safe at Home: Yes Safety Concerns: Feels Safe At This Time Smoking Status: Never smoker Second Hand Exposure: No ; Hx Alcohol Use: No Hx Substance Use: No Review of Systems Review of Systems: All systems reviewed & are unremarkable except as noted in HPI & below Physical Exam Physical Exam: Temp Pulse Resp BP Pulse Ox 36.5 C 69 18 153/83 H 96 11/14/18 07:17 11/14/18 07:23 11/14/18 07:17 11/14/18 07:17 11/14/18 07:17 Constitutional: WD/WN, vitals as above Respiratory: normal respiratory effort, lungs clear to auscultation Cardiovascular: RRR, no murmur, no edema Chest (Breasts): Additional Comments: Reproducible tenderness over the right rib margin with palpation Skin: no rashes, warm and dry Neurologic: PERRL, EOMI, accommodation nl, no face palsy, no dysarthria moves all extremities; no focal motor deficits Psychiatric: A+Ox3, euthymic affect Results & Data Vital Signs (Past 12 Hours) Vital Signs Temp Pulse Pulse Pulse Resp BP Pulse Ox 11/14/18 07:23 69 11/14/18 07:17 36.5 C 67 18 153/83 H 96 11/14/18 04:00 36.5 C 80 20 156/81 H 96 11/14/18 00:43 88 Laboratory Results Cardiac Enzymes 11/13/18 11/13/18 11/13/18 Range/Units 09:31 15:06 15:06 AST 16 (15-37) U/L Troponin I < 0.015 Cancelled < 0.015 (0-0.045) ng/ml 11/13/18 Range/Units 20:45 AST (15-37) U/L Troponin I < 0.015 (0-0.045) ng/ml Coagulation 11/14/18 Range/Units 05:42 PT 10.1 (9.0-12.0) Seconds APTT 23.3 (21.0-31.0) Seconds CBC 11/13/18 11/14/18 Range/Units 09:31 05:42 WBC 12.86 H 10.80 (4.8-10.8) K/uL RBC 4.22 3.93 L (4.2-5.4) M/uL Hgb 13.3 12.3 (12.0-16.0) g/dL Hct 40.3 37.4 (37-47) % Plt Count 340 329 (130-400) K/uL Neut # (Auto) 10.93 H (1.4-6.5) K/uL Lymph # (Auto) 1.36 (1.2-3.4) K/uL Elliott # (Auto) 0.50 (0.11-0.59) K/uL Eos # (Auto) 0.00 (0-0.5) K/uL Baso # (Auto) 0.03 (0-0.2) K/uL Comprehensive Metabolic Panel 11/13/18 11/14/18 Range/Units 09:31 05:42 Sodium 144 146 H (136-145) mmol/L Potassium 3.8 3.5 (3.5-5.1) mmol/L Chloride 114 H 113 H (98-107) mmol/L Carbon Dioxide 24 26 (21-32) mmol/L BUN 19 H 20 H (7-18) mg/dl Creatinine 0.81 0.77 (0.6-1.2) mg/dl Glucose 144 H 76 (70-99) mg/dl Calcium 8.7 8.5 (8.5-10.1) mg/dl AST 16 (15-37) U/L ALT 90 H (12-78) U/L Alkaline Phosphatase 240 H (45-117) U/L Total Protein 6.7 (6.4-8.2) gm/dl Albumin 3.4 (3.4-5.0) gm/dl Intake and Output 11/13/18 11/14/18 11/14/18 22:59 06:59 14:59 Intake Total 0 / 0 Balance 0 / 0 Intake: Oral 0 / 0 Other: Weight 71.6 kg 70.8 kg Diagnostic Findings Telemetry from overnight was reviewed revealing for the most part sinus rhythm in the 80 bpm range. This morning, 11/14/2018, at 5:30 AM, there is a brief interval of bradycardia with longest R to R interval 2.4 seconds, and 2 beats of ectopic atrial bradycardia, with subsequent return to normal sinus rhythm. This occurred during anticipated sleep. Serial EKG tracings were reviewed from past hospital stays, this hospital stay, as well as outpatient stays, with noted T wave changes as described in the HPI Medications Administered Current Inpatient Medications Acetaminophen (Tylenol) 650 mg PO Q4H PRN PRN Reason: Pain or Fever Stop: 12/13/18 15:36 Albuterol (Ventolin Hfa) 2 puffs INH Q6H PRN PRN Reason: sob Stop: 12/13/18 15:36 Aspirin (Ecotrin Ectab) 81 mg PO HS [facility] Stop: 12/13/18 20:59 Last Admin: 11/13/18 20:46 Dose: 81 mg Documented by: Atorvastatin Calcium (Lipitor) [facility] Stop: 12/14/18 08:59 Last Admin: 11/14/18 08:19 Dose: 80 mg Documented by: Enoxaparin Sodium (Lovenox) 40 mg SQ Q24H [facility] Stop: 12/14/18 08:59 Last Admin: 11/14/18 08:24 Dose: 40 mg Documented by: Fexofenadine HCl (Elke) 180 mg PO DAILY PRN PRN Reason: Allergy Symptoms Stop: 12/13/18 15:36 Fluticasone Propionate (Flovent Hfa 110mch) 1 puffs INH BID [facility] Stop: 12/13/18 20:59 Last Admin: 11/14/18 08:23 Dose: 1 puffs Documented by: Fluticasone Propionate (Flonase) 2 sprays NA BID PRN PRN Reason: Congestion Stop: 12/13/18 15:36 Hydrochlorothiazide (Hctz) 12.[address] [facility] Stop: 12/13/18 15:36 Last Admin: 11/14/18 08:23 Dose: 12.5 mg Documented by: Potassium Chloride (K Jas / Wtr) 10 meq in 100 mls @ 100 mls/hr IV ONE ONE Stop: 11/14/18 09:29 Last Admin: 11/14/18 08:03 Dose: 100 mls/hr Documented by: Lisinopril (Zestril) 5 mg PO QAM [facility] Stop: 12/14/18 08:59 Last Admin: 11/14/18 08:24 Dose: 5 mg Documented by: Magnesium Hydroxide (Milk Of Magnesia) 30 ml PO Q12H PRN PRN Reason: Constipation Stop: 12/13/18 15:36 Metoprolol Succinate (Toprol Xl) 25 mg PO BID [facility] Stop: 12/13/18 20:59 Last Admin: 11/14/18 08:19 Dose: 25 mg Documented by: Nitroglycerin (Nitrostat) 0.4 mg SL UD PRN PRN Reason: Chest Pain Stop: 12/13/18 15:36 Ondansetron HCl (Zofran) 4 mg IV Q6H PRN PRN Reason: Nausea Stop: 12/13/18 15:36 Pantoprazole Sodium (Protonix) 40 mg PO BID [facility] Stop: 12/13/18 20:59 Last Admin: 11/14/18 08:24 Dose: 40 mg Documented by: Polyethylene Glycol (Miralax Powder Packet) 17 gm PO DAILY PRN PRN Reason: Constipation Stop: 12/13/18 15:36 Prednisone (Prednisone) 40 mg [facility] Stop: 11/16/18 09:01 Last Admin: 11/14/18 08:22 Dose: 40 mg Documented by: Ranitidine HCl (Zantac) 150 mg PO BID [facility] Stop: 12/13/18 20:59 Last Admin: 11/14/18 08:24 Dose: 150 mg Documented by: Ticagrelor (Brilinta) 90 mg PO BID [facility] Stop: 12/13/18 20:59 Last Admin: 11/14/18 08:19 Dose: 90 mg Documented by: Vitamin D (Vitamin D3) 2,000 units PO QAM [facility] Stop: 12/14/18 08:59 Last Admin: 11/14/18 08:19 Dose: 2,000 units Documented by:
[2018-11-14] MEDS ORDERED: ATROPINE SULFATE 0.1 MG/ML 10ML SYR IV ONE (10:29)
[2018-11-14] MEDS ORDERED: METOPROLOL TARTRATE 1 MG/ML VIAL IV ONE (10:29)
[2018-11-14] MEDS ORDERED: DOBUTamine HCL 12.5 MG/ML 20 ML VIAL IV ONE (10:29)
[2018-11-14 10:42] LABS: Alanine Aminotransferase 67 U/L (12-78); Albumin Globulin Ratio 1.1 (0.9-2); Albumin Level 2.9 gm/dl (3.4-5.0); Alkaline Phosphatase 161 U/L (45-117); Aspartate Aminotransferase 11 U/L (15-37); Bilirubin,Total 0.5 mg/dl (0.2-1); C Reactive Protein < 0.29 mg/dl (0-0.29); Globulin 2.6 gm/dl (2.5-4.0); T4 Free Thyroxine 1.56 ng/dl (0.8-1.6); Total Protein 5.5 gm/dl (6.4-8.2)
[2018-11-14] MEDS ORDERED: SPIRONOLACTONE 25 MG TAB PO SCH (11:30)
[2018-11-14 12:41] LABS: T3 Free 3.48 pg/ml (2.3-4.2); T3 Total 1.06 ng/ml (0.60-1.81)
[2018-11-14 14:20] LABS: Albumin Globulin Ratio 1.1 (0.9-2); Albumin Level 3.2 gm/dl (3.4-5.0); BUN Creatinine Ratio 22.2 (10-20); Bilirubin,Total 0.5 mg/dl (0.2-1); Calcium 8.9 mg/dl (8.5-10.1); Creatinine Clr Calc Pharmacy 53.1 ml/min; Est GFR (African American) 74.5; Est GFR (Non-African American) 64.3; Globulin 2.8 gm/dl (2.5-4.0); Magnesium 2.2 mg/dl (1.8-2.4); Potassium 4.4 mmol/L (3.5-5.1); Total Protein 6.1 gm/dl (6.4-8.2)
--- NOTE | 2018-11-14 16:20 | Hospitalist Progress Note ---
Date of Service November 14, 2018 Assessment & Plan (1) Dyspnea on exertion: This is a 73-year-old female who has a significant past medical history of CAD with history of NSTEMI 04/28/18 PCI AMIE to LAD with staged PCI AMIE to RCA 05/01 complicated with pericarditis and recurrent admissions 05/20 and 06/17 tx with steroids and ASA, intolerant to colchicine. Further has a PMH of HTN, HLD, hypothyroidism, large hiatal hernia, GERD, CKD stage III, intermittent asthma, history of DVT/PE with prior IVC filter in place now removed secondary to large hematoma, senile osteoporosis who presents to [facility] secondary to dyspnea on exertion x2 weeks. -patient evaluated in the hospital for dyspnea -no oxygen desaturation -no deep vein thrombosis on ultrasound of the legs, and no pulmonary embolism on CTA chest -no evidence of pneumonia -Cardiology service attributes dyspnea symptoms to hypertension and diastolic dysfunction -Cardiology service attributes dsypnea symptoms hypertension/diastolic dysfunction -negative dobutamine stress test as per cardiology evaluation: -Proceed with intensified medication therapy for hypertension/diastolic dysfunction Hydrochlorothiazide 25 mg p.o. daily has been reinitiated. add spironolactone 12.5 mg daily for further blood pressure control Continue prior to hospital dose of lisinopril and metoprolol. Patient will need follow-up chemistry panel within a week to assure stability of her kidney function and electrolytes by primary care doctor Discharge medications sent electronically to [address] [id number] Follow up appointments 11/21/2018 1:20 PM Provider Viet Braden MD Department Internal Medicine [facility] 11/26/2018 2:30 PM Provider Irene Winchester DO Department Internal Medicine [facility] 12/04/2018 9:00 AM Provider ABRAM OnealC Department Cardiology [facility] (2) Asthma exacerbation, mild: asthma exacerbation was considered and patient received nebulizer treatments but does not appear to cause of the dyspnea which does not happen when patient is at rest (3) Leukocytosis: initial leukocytosis of 12,000 likely due to chronic prednisone use History of pericarditis chronic steroid use (prednisone) -as per 11/14/18 cardiology evaluation of echocardiogram: A trace loculated anterior pericardial effusion with fibrinous strands was noted on the resting echocardiogram without echocardiographic evidence of tamponade. I am not able to review the images of the most recent outpatient echocardiogram performed in August, for direct comparison, but the report states that this had resolved at the time of that echocardiogram. On further discussion, the patient states that her right-sided chest discomfort is reminiscent of the discomfort for which she received treatment for pericarditis. Her erythrocyte sedimentation rate and low sensitivity C-reactive protein are within normal limits, but they had also been within normal limits at the time of her May, admission. -on prednisone at home -Prednisone taper as per cardiology: 20 mg by mouth daily x7 days, then 10 mg daily x7 days, then 5 mg daily x7 days, then 2.5 mg daily x14 days, then 2.5 mg every other day x3 doses. (4) CAD (coronary artery disease): History of NSTEMI 04/28/2018 s/p AMIE to LAD (culprit) and staged RCA PCI during previous hospitalization 04/28/18 -as per 11/14/18 cardiology evaluation Patient had a nonischemic response to dobutamine stress echocardiogram, having achieved and exceeded the target heart rate. No symptoms suggestive of angina were reported. EKG response to pharmacologic stress was negative for ischemia. The resting wall motion was normal with appropriate augmentation of the left ventricle pharmacologic stress. Is therefore felt that the patient's symptoms are not due to angina. -continue ASA, Statin, BB, LIBAN (5) Hypertension: as per cardiology evaluation: -Proceed with intensified medication therapy for hypertension/diastolic dysfunction. Hydrochlorothiazide 25 mg p.o. daily has been reinitiated. add spironolactone 12.5 mg daily for further blood pressure control Continue prior to hospital dose of lisinopril and metoprolol. Patient will need follow-up chemistry panel within a week to assure stability of her kidney function and electrolytes by primary care doctor (6) Dyslipidemia: continue high dose atorvastatin (7) Hypothyroidism: Hypothyroidism with abnormal thyroid function test -Based on Thyroid function tests (TSH very low 0.009, total T4 high 13.5, normal free T4 1.56, normal total T3 1.06, normal free T3 3.48), patient appears to be on too much Levothyroxine for Hypothyrodism. Patient should take Levothyroxine 25 mcg daily until follow up with primary care doctor for repeat thyroid function test and evaluation (8) History of pulmonary embolism: hx of PE/DVT d-dimer elevated to 0.67 in outpt setting CTA and dopplers negative (9) Hiatal hernia: continue PPI BID and Ranitidine BID (10) Elevated LFTs: Prior hospitalization 06/05: "-Liver ultrasound : No cholelithiasis or sonographic evidence of acute cholecystitis ; No biliary ductal dilation. There are 2 large cyst about the right kidney noted measuring up to 6.9 cm. No right- sided hydronephrosis identified. Hepatitis panel is negative" on Statin ALT 90, ALP 248 on initial presentation ALT normalized and alkaline phosphatase downtrended to 178 (11) DVT prophylaxis: lovenox when inpatient Discharge Diagnosis Dyspnea on exertion from Hypertension and Diastolic Dysfunction, History of pericarditis, chronic steroid use (prednisone), Hypothyroidism with abnormal thyroid function test Subjective Patient has been breathing comfortably on room air. no chest pain. no palpitations. no headache. no lightheadedness. no dizziness. Physical Exam Constitutional: WD/WN, vitals as above Eyes: PERRL, conjunctivae normal, anicteric sclerae EOM intact bilaterally ENMT: external ear and nose normal, oropharynx normal Neck: normal visual inspection and trachea midline Respiratory: normal respiratory effort, lungs clear to auscultation Cardiovascular: Rate/Rhythm: regular rate and regular rhythm Gastrointestinal (Abdomen): normal bowel sounds, soft, nontender, no hepatosplenomegaly Musculoskeletal: no cyanosis or clubbing, extremities motor strength 5/5 Head/Neck/Chest: normocephalic and head atraumatic Neurologic: PERRL, EOMI, accommodation nl, no face palsy, no dysarthria CN's II-XI intact bilaterally Psychiatric: A+Ox3, euthymic affect Results & Data Vital Signs (Past 12 Hours) Vital Signs Temp Pulse Pulse Pulse Resp BP Pulse Ox 11/14/18 15:31 36.6 C 76 20 128/78 93 11/14/18 07:23 69 11/14/18 07:17 36.5 C 67 18 153/83 H 96
--- NOTE | 2018-11-14 16:54 | Discharge Summary ---
Date of Service November 14, 2018 Admission HPI Per Admitting Provider This is a 73-year-old female who has a significant past medical history of CAD with history of NSTEMI 04/28/18 PCI AMIE to LAD with staged PCI AMIE to RCA 05/01 complicated with pericarditis and recurrent admissions 05/20 and 06/17 tx with steroids and ASA, intolerant to colchicine. 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 Patient was seen by outpatient provider yesterday due to above symptoms. She received a call today that her troponin and d-dimer were elevated and she should be further evaluated at ED. She also notes she recently got over urinary tract infection approximately 1 week ago which she was treated with Cipro and amoxicillin, symptoms have resolved. Over the past 2 weeks she is been complaining of dyspnea on exertion with moderate activity. Also associated wheezing, rhinorrhea, watery eyes, dry cough, slight increase in lower extremity edema, increased blood pressure, occasional headache, 5lb weight gain over few months. When SOSA is present she complains of right sided chest, "aching," that her symptoms are prior pericarditis. She denies any fever, chills, sweats, lightheadedness, dizziness, syncope, shortness breath at rest, orthopnea, PND, hemoptysis, nausea, vomiting, diarrhea, abdominal pain, dysuria, hematuria, increased urgency or frequency with urination. She has tried [id number] Elke with minimal relief of her symptoms. She does note she has a prior history of asthma and describes her shortness of breath symptoms feeling similar to, "asthma attack," but has been many years since she has had this. Was prescribed prednisone 40mg x 5 days at outpt office yesterday. Admission Exam Per Admitting Provider gen: WD/WN, F, NAD, sitting up in bed, pleasant, conversing easily Head: Normocephalic, Atraumatic Eyes: Sclera normal, no conjunctival injection, PERRLA, EOMI ENT: Gross hearing intact, normal pharynx, mucous membranes moist Neck: supple, no adenopathy, No JVD, no bruit, Resp: Clear to auscultation b/l, no wheeze, rales, rhonchi. Normal insp/exp effort, no accessory muscle use CV: Regular rate, regular rhythm, no murmur, rub, gallop, or ectopy Abd: +BS x 4, soft, nontender, nondistended Musculoskeletal: moves extremities active rom x 4, strength intact, good health services manager strength Extremities: trace edema bilaterally, more lymph edema than pitting Skin: warm, moist, no rash, negative turgor, cap refill < 2sec Neuro: Alert and oriented x 3, speech normal, good mood/affect, cran nerve 2-12 intact grossly : deferred Principal Diagnosis Dyspnea on exertion from Hypertension and Diastolic Dysfunction, History of pericarditis, chronic steroid use (prednisone), Hypothyroidism with abnormal thyroid function test, Hypernatremia Discharge Exam Constitutional WD/WN, vitals as above Eyes PERRL, conjunctivae normal, anicteric sclerae EOM intact bilaterally ENMT external ear and nose normal, oropharynx normal Neck normal visual inspection and trachea midline Respiratory normal respiratory effort, lungs clear to auscultation Cardiovascular Rate/Rhythm: regular rate and regular rhythm Gastrointestinal (Abdomen) normal bowel sounds, soft, nontender, no hepatosplenomegaly Musculoskeletal no cyanosis or clubbing, extremities motor strength 5/5 Head/Neck/Chest: normocephalic and head atraumatic Neurologic PERRL, EOMI, accommodation nl, no face palsy, no dysarthria CN's II-XI intact bilaterally Psychiatric A+Ox3, euthymic affect Discharge Data Allergies Allergy/AdvReac Type Severity Reaction Status Date / Time imipenem Allergy Severe ANAPHYLAXIS Verified 11/13/18 10:20 Sulfa (Sulfonamide Allergy Severe hives,sob, Verified 11/13/18 10:20 Antibiotics) can take Dyazide daptomycin AdvReac Severe Anaphylaxis Unverified 11/13/18 10:20 colchicine AdvReac Intermediate diarrhea Verified 11/13/18 14:30 zoledronic acid AdvReac Mild NAUSEA AND Verified 11/13/18 10:20 VOMITING Consultations 11/13/18 12:12 ED Decision to Admit Stat 11/13/18 15:37 Consult Cardiology Routine Ordered Studies 11/13/18 10:11 CT angio chest PE protocol Stat 11/13/18 10:56 US venous doppler LE Stat Hospital Course (1) Dyspnea on exertion: This is a 73-year-old female who has a significant past medical history of CAD with history of NSTEMI 04/28/18 PCI AMIE to LAD with staged PCI AMIE to RCA 05/01 complicated with pericarditis and recurrent admissions 05/20 and 06/17 tx with steroids and ASA, intolerant to colchicine. 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 -patient evaluated in the hospital for dyspnea -no oxygen desaturation -no deep vein thrombosis on ultrasound of the legs, and no pulmonary embolism on CTA chest -no evidence of pneumonia -Cardiology service attributes dyspnea symptoms to hypertension and diastolic dysfunction -Cardiology service attributes dsypnea symptoms hypertension/diastolic dysfunction -negative dobutamine stress test as per cardiology evaluation: -Proceed with intensified medication therapy for hypertension/diastolic dysfunction Hydrochlorothiazide 25 mg p.o. daily has been reinitiated. add spironolactone 12.5 mg daily for further blood pressure control Continue prior to hospital dose of lisinopril and metoprolol. Patient will need follow-up chemistry panel within a week to assure stability of her kidney function and electrolytes by primary care doctor Discharge medications sent electronically to [address] [address] Follow up appointments 11/21/2018 1:20 PM Provider Viet Braden MD Department Internal [facility] 11/26/2018 2:30 PM Provider Irene Winchester DO Department Internal Medicine [facility] 12/04/2018 9:00 AM Provider Nikole Aguilar PA-C Department Cardiology [facility] (2) Asthma exacerbation, mild: asthma exacerbation was considered and patient received nebulizer treatments but does not appear to cause of the dyspnea which does not happen when patient is at rest (3) Leukocytosis: initial leukocytosis of 12,000 likely due to chronic prednisone use History of pericarditis chronic steroid use (prednisone) -as per 11/14/18 cardiology evaluation of echocardiogram: A trace loculated anterior pericardial effusion with fibrinous strands was noted on the resting echocardiogram without echocardiographic evidence of tamponade. I am not able to review the images of the most recent outpatient echocardiogram performed in August, for direct comparison, but the report states that this had resolved at the time of that echocardiogram. On further discussion, the patient states that her right-sided chest discomfort is reminiscent of the discomfort for which she received treatment for pericarditis. Her erythrocyte sedimentation rate and low sensitivity C-reactive protein are within normal limits, but they had also been within normal limits at the time of her May, admission. -on prednisone at home -Prednisone taper as per cardiology: 20 mg by mouth daily x7 days, then 10 mg daily x7 days, then 5 mg daily x7 days, then 2.5 mg daily x14 days, then 2.5 mg every other day x3 doses. (4) CAD (coronary artery disease): History of NSTEMI 04/28/2018 s/p AMIE to LAD (culprit) and staged RCA PCI during previous hospitalization 04/28/18 -as per 11/14/18 cardiology evaluation Patient had a nonischemic response to dobutamine stress echocardiogram, having achieved and exceeded the target heart rate. No symptoms suggestive of angina were reported. EKG response to pharmacologic stress was negative for ischemia. The resting wall motion was normal with appropriate augmentation of the left ventricle pharmacologic stress. Is therefore felt that the patient's symptoms are not due to angina. -continue ASA, Statin, BB, LIBAN (5) Hypertension: as per cardiology evaluation: -Proceed with intensified medication therapy for hypertension/diastolic dysfunction. Hydrochlorothiazide 25 mg p.o. daily has been reinitiated. add spironolactone 12.5 mg daily for further blood pressure control Continue prior to hospital dose of lisinopril and metoprolol. Patient will need follow-up chemistry panel within a week to assure stability of her kidney function and electrolytes by primary care doctor Hypernatremia (serum sodium 146) - will expect serum sodium to normalize with HCTZ (6) Dyslipidemia: continue high dose atorvastatin (7) Hypothyroidism: Hypothyroidism with abnormal thyroid function test -Based on Thyroid function tests (TSH very low 0.009, total T4 high 13.5, normal free T4 1.56, normal total T3 1.06, normal free T3 3.48), patient appears to be on too much Levothyroxine for Hypothyrodism. Patient should take Levothyroxine 25 mcg daily until follow up with primary care doctor for repeat thyroid function test and evaluation (8) History of pulmonary embolism: hx of PE/DVT d-dimer elevated to 0.67 in outpt setting CTA and dopplers negative (9) Hiatal hernia: continue PPI BID and Ranitidine BID (10) Elevated LFTs: Prior hospitalization 06/05: "-Liver ultrasound : No cholelithiasis or sonographic evidence of acute cholecystitis ; No biliary ductal dilation. There are 2 large cyst about the right kidney noted measuring up to 6.9 cm. No right- sided hydronephrosis identified. Hepatitis panel is negative" on Statin ALT 90, ALP 248 on initial presentation ALT normalized and alkaline phosphatase downtrended to 178 (11) DVT prophylaxis: lovenox when inpatient Discharge Diagnosis Dyspnea on exertion from Hypertension and Diastolic Dysfunction, History of pericarditis, chronic steroid use (prednisone), Hypothyroidism with abnormal thyroid function test Total Time Total Time Spent Total Time Spent (In Minutes): 40 minutes Total Time Includes: Examination of the Patient, Discharge Planning, Medication Reconciliation and Communication With Other Providers Discharge Plan Discharge Items Patient Disposition: Home - Self-Care Reason For Visit: SOSA Discharge Diagnosis: Dyspnea on exertion from Hypertension and Diastolic Dysfunction, History of pericarditis, chronic steroid use (prednisone), Hypothyroidism with abnormal thyroid function test, Hypernatremia (serum sodium 146) Condition: Good Discharge Goals: Improve disease control Activity: Resume your previous activity Non-emergency contact: Primary Care Provider and Ceramic Products Sales Engineer Call non-emergency contact if: you have any medication questions Follow-up/Referrals: Irene Winchester DO [Primary Care Provider] - Diet: Heart Healthy Addtl Provider Instructions: patient evaluated in the hospital for dyspnea-no oxygen desaturation no deep vein thrombosis on ultrasound of the legs, and no pulmonary embolism on CTA chest no evidence of pneumonia Cardiology service attributes dyspnea symptoms to hypertension and diastolic dysfunction as per 11/14/18 cardiology evaluation Patient had a nonischemic response to dobutamine stress echocardiogram, having achieved and exceeded the target heart rate. No symptoms suggestive of angina were reported. EKG response to pharmacologic stress was negative for ischemia. The resting wall motion was normal with appropriate augmentation of the left ventricle pharmacologic stress. Is therefore felt that the patient's symptoms are not due to angina. Cardiology service attributes dyspnea symptoms to hypertension and diastolic dysfunction HCTZ (hydrochlorothiazide) 12.5 mg daily, Spirolactone 12.5 mg daily as recommended by cardiology evaluation Hypernatremia (serum sodium 146) - will expect serum sodium to normalize with HCTZ Patient will need follow-up chemistry panel within a week to assure stability of her kidney function and electrolytes by primary care doctor Prednisone taper as per cardiology: 20 mg by mouth daily x7 days, then 10 mg daily x7 days, then 5 mg daily x7 days, then 2.5 mg daily x14 days, then 2.5 mg every other day x3 doses. Based on Thyroid function tests (TSH very low 0.009, total T4 high 13.5, normal free T4 1.56, normal total T3 1.06, normal free T3 3.48), patient appears to be on too much Levothyroxine for Hypothyrodism. Patient should take Levothyroxine 25 mcg daily until follow up with primary care doctor for repeat thyroid function test and evaluation Discharge medications sent electronically to [address] [address] Follow up appointments 11/21/2018 1:20 PM Provider Viet Braden MD Department Internal Medicine [facility] 11/26/2018 2:30 PM Provider Irene Winchester DO Department Internal Medicine [facility] 12/04/2018 9:00 AM Provider ABRAM OnealC Department Cardiology [facility] Prescriptions: New spironolactone 25 mg Tablet 12.5 mg PO DAILY 30 Days Qty: 15 RF: 0 hydrochlorothiazide 25 mg Tablet 12.5 mg PO QAM 30 Days Qty: 15 RF: 0 levothyroxine [Synthroid] 25 mcg Tablet 25 mcg PO DAILYBB 10 Days Qty: 10 RF: 0 prednisone 5 mg tablet 5 mg PO UD 41 Days Qty: 58 RF: 0 Continued fexofenadine 180 mg Tablet 180 mg PO DAILY PRN (Reason: Allergy Symptoms) RF: 0 ranitidine HCl 150 mg Tablet 150 mg PO BID RF: 0 omeprazole 20 mg Tablet,Delayed Release (Dr/Ec) 20 mg PO BID RF: 0 cholecalciferol (vitamin D3) [Vitamin D3] 2,000 unit Tablet 2,000 unit PO QAM RF: 0 Azo Bladder Control 300 mg Capsule 1 cap PO QAM RF: 0 nitroglycerin [Nitrostat] 0.4 mg tablet, sublingual 0.4 mg Sublingual Q5M Qty: 25 RF: 3 metoprolol succinate 25 mg tablet extended release 24 hr 25 mg PO BID Qty: 60 RF: 11 Brilinta 90 mg tablet 90 mg PO BID Qty: 60 RF: 11 amoxicillin 500 mg Capsule 500 mg PO UD PRN (Reason: Prophylaxis) RF: 0 fluticasone propionate [Flonase Allergy Relief] 50 mcg/actuation [place],Suspension 2 spray INTRANASAL BID PRN (Reason: Congestion) RF: 0 atorvastatin 80 mg tablet 80 mg PO QAM RF: 0 aspirin 81 mg Tablet,Delayed Release (Dr/Ec) 81 mg PO HS Qty: 0 RF: 0 acetaminophen [Tylenol Extra Strength] 500 mg Tablet 1,000 mg PO QAM RF: 0 lisinopril 5 mg Tablet 5 mg PO QAM RF: 0 Discontinued levothyroxine 150 mcg Capsule 150 mcg PO QAM RF: 0 prednisone 20 mg Tablet 40 mg PO QAM RF: 0 Stand-Alone Forms: [facility] Discharge Orders: Discharge Order (Routine); Ordered 11/14/18 Ordered By: Elmer Nicole Admission Data Admit Date/Time: 11/13/18 13:37 Attending Provider: Elmer Nicole Admit Provider: Carolyn Cavanaugh Primary Care Provider: Irene Winchester Other Providers: Stevie Miranda ; Carolyn Cavanaugh Service: Telemetry Medical
[2018-11-15] MEDS ORDERED: LEVOTHYROXINE SODIUM 25 MCG TABLET PO SCH (06:30)
[2018-11-15] MEDS ORDERED: predniSONE 20 MG TAB PO SCH (09:00)
== END 2018-11-14 17:20 | disposition home or self-care (01) ==
LOC: 2N 09:02 → ED 09:02 → 2N 15:17

== ENCOUNTER 2019-08-18 07:47 | Observation (INO) ==
[2019-08-18] MEDS ORDERED: BUPIVACAINE 0.25% 30 ML VIAL ONE (07:54)
[2019-08-18] MEDS ORDERED: BACITRACIN INJ 50,000 UNIT VIAL ONE (07:54)
[2019-08-18] MEDS ORDERED: LIDOCAINE HCL 1% 20 ML VIAL ONE (07:54)
--- NOTE | 2019-08-18 08:06 | History & Physical Bridge Note ---
Date of Service August 18, 2019 History & Physical Bridge Note I have examined the patient, reviewed the History & Physical and in the interval since the performance of the History & Physical I have noted the following changes of clinical significance: Pt's nuclear stress test was negative for ischemia; given the TBS on zio patch recommend pacemaker followed by increase doses of metoprolol. Pt is in agreement and consents signed.
--- NOTE | 2019-08-18 08:07 | Pre Anesthesia Assessment ---
Date of Service August 18, 2019 Pre Sedation Assessment Cardiovascular RRR, no murmur, no edema Respiratory normal respiratory effort, lungs clear to auscultation Pre-Sedation Airway Assessment Smoking Status: Never smoker Hx Sleep Apnea: No Short, Thick Neck: No Oral Cavity: + WNL Mallampati Class: III ASA: ASA3 NPO Status Date of Last Intake of Fluids: 08/18/19 Time of Last Intake of Fluids: 06:30 Last Oral Intake of Fluids Comment: sip with meds Date of Last Intake of Solid Food: 08/17/19 Time of Last Intake of Solid Foods: 21:00 Procedure Planning Contraindications for Sedation: none Current Medications Reviewed: Yes Notes The planned sedation has been discussed with the patient. Informed Consent was obtained. I have identified the patient, determined the appropriateness of sedation and have assessed the patient immediately prior to the procedure. All medicine(s) and interventions are by my order.
[2019-08-18] MEDS ORDERED: fentaNYL citrate 100 MCG/2 ML VIAL ONE ×3 (08:12→09:27)
[2019-08-18] MEDS ORDERED: MIDAZOLAM HCL 5 MG/ML 1 ML VIAL ONE ×2 (08:12→09:21)
[2019-08-18] MEDS ORDERED: CEFAZOLIN 250 MG/ML 1 GM VIAL ONE (08:12)
[2019-08-18] MEDS ORDERED: HydrALAZINE HCL 20 MG/ML VIAL ONE (09:08)
[2019-08-18] MEDS ORDERED: ENALAPRILAT 2.5 MG/2 ML 2ML VIAL ONE ×2 (09:15→09:51)
--- NOTE | 2019-08-18 09:58 | Operative Report ---
Post Operative Report Pre & Post Diagnosis TBS Operation Date: 08/18/19 08:00 <No data on this case meets the specified criteria> I identified the patient and participated in the time-out.: Yes Procedure Operation Date: 08/18/19 08:00 Actual Procedures p Pacer with A/V Leads (Dual) - Lori Parekh DO s Venogram, Unilateral - Lori Parekh DO Surgeon Lori Parekh, Motor Home Electrical Foreman none Estimated Blood Loss 50 Findings Consistent with Post-Op Diagnosis Specimens none Description of Procedure see official report I attest to the content of the Intraoperative Record and any orders documented therein. Any exceptions are noted below.
[2019-08-18] MEDS ORDERED: OXYCODONE/ACETAMINOPHEN 5mg/325mg TAB PO PRN (09:59)
[2019-08-18] MEDS ORDERED: MoRPHine SULFATE 2 MG/ML CARP IV STA (09:59)
--- NOTE | 2019-08-18 09:59 | Post Anesthesia Assessment ---
Date of Service August 18, 2019 Post Sedation Assessment Vital Signs Temp Pulse Resp Pulse Ox 08/18/19 08:00 36.8 C 86 18 98 Recovery Score Activity: Moves 4 extremities Respiration: Deep Breath/Cough Circulation: +/-20% PreAnes Value Consciousness: Fully Awake Oxygen Saturation: > 92% On Room Air Discharge Sedation Level of Care: Fast Track Phase II Post Sedation Plan On clinical assessment, the patient appears to have tolerated the sedation without complications. Patient is recovering as anticipated. Patient will continue to be monitored by nursing and may be discharged when sedation discharge criteria are met per below protocol. Upon Completions of procedure up to 15 minutes continue every 5 minute vital signs and the P.A.R. score; then discharge to a Phase I or Fast Track to Phase II per the following guidelines: * Discharge Patient to appropriate Phase II area if PAR is 8 or greater or return to pre- procedure baseline. The post - procedure orders will be as directed. * If PAR score is less than 8 or not return to pre-procedure baseline then patient will follow Phase I monitoring till PAR is reached for Phase II. The Phase I may be done in procedure room or may call to secure a Phase I area. * If naloxone or flumazenil are used for reversal, hold in Phase I for continued monitoring from when last reversal dose was given for a minimum of 60 minutes or longer pending the nurse and/or physician discretion of patient condition before discharge to Phase II. Please call the Sedation Physician to re-evaluate and complete post-note for discharge to Phase II area. Do NOT discharge from procedure sedation or Phase 1 until post- sedation evaluation note is complete by procedure /sedation MD Sedation Discharge Instructions to be given to the patient at discharge to home.
[2019-08-18] MEDS ORDERED: SURGICAL BRA TOP ONE (10:01)
[2019-08-18] MEDS ORDERED: FEXOFENADINE HCL 180 MG TAB PO PRN (10:02)
[2019-08-18] MEDS ORDERED: DICYCLOMINE HCL 20 MG TAB PO PRN (10:02)
[2019-08-18] MEDS ORDERED: MoRPHine SULFATE 2 MG/ML CARP ONE (10:14)
[2019-08-18] MEDS ORDERED: NON-FORMULARY MEDICATION (Omeprazole 20 MG) PO SCH (10:15)
[2019-08-18] MEDS ORDERED: NITROGLYCERIN SL 0.4 MG/TAB TAB SL PRN (10:15)
[2019-08-18] MEDS ORDERED: METOPROLOL SUCC 25MG EXT REL TAB ONE (10:16)
[2019-08-18] MEDS ORDERED: HydrALAZINE HCL 20 MG/ML VIAL IV PRN (10:24)
[2019-08-18] MEDS ORDERED: MoRPHine SULFATE 2 MG/ML CARP IV PRN (10:24)
--- NOTE | 2019-08-18 10:24 | Discharge Summary ---
Date of Service August 20, 2019 Admission HPI Per Admitting Provider Pt admitted due to TBS for elective ppm Admission Exam Per Admitting Provider aaox3, NAD NC/AT, EOMI Supple No JVD Nrl S1/S2, No murmur CTA b/l no w/r/r soft nt/nd no LE edema b/l skin intact no focal deficits Principal Diagnosis TBS s/p dual chamber ppm Discharge Exam aaox3, NAD NC/AT, EOMI Supple No JVD Nrl S1/S2, No murmur CTA b/l no w/r/r soft nt/nd no LE edema b/l skin intact no focal deficits left pectoral incision intact, no hematoma mild ecchymosis Discharge Data Allergies Allergy/AdvReac Type Severity Reaction Status Date / Time imipenem Allergy Severe ANAPHYLAXIS Verified 08/18/19 08:09 Sulfa (Sulfonamide Allergy Severe hives,sob, Verified 08/18/19 08:09 Antibiotics) can take Dyazide daptomycin AdvReac Severe Anaphylaxis Unverified 08/18/19 08:09 colchicine AdvReac Intermediate diarrhea Verified 08/18/19 08:09 zoledronic acid AdvReac Mild NAUSEA AND Verified 08/18/19 08:09 VOMITING Procedures Performed Operation Date: 08/18/19 08:00 Actual Procedures p Pacer with A/V Leads (Dual) - Lori Parekh DO s Venogram, Unilateral - Lori Parekh DO Ordered Studies 08/18/19 07:21 CL Cath Imgs for PACS use only Routine Hospital Course (1) Tachy-chintan syndrome: s/p PPM monitored overnight had some post up nausea and fatigue so stayed until POD 2 then discharged home with higher dose of toprol Total Time Total Time Spent Total Time Spent (In Minutes): 30 Total Time Includes: Examination of the Patient, Discharge Planning, Medication Reconciliation and Other Discharge Plan Discharge Items Patient Disposition: Home - Self-Care Reason For Visit: Tachy/Chintan Discharge Diagnosis: tbs s/p ppm Condition on Discharge: Good Activity: As commented below Activity Comment: do not lift the left elbow over the left shoulder for 1 month Lifting: No more than 10 pounds Lifting Comment: do not lift more than 10 pounds with the left arm for 2 weeks Bathing: Keep incision dry Bathing Comment: keep dressing on and dry until your wound check next week Sexual Activity: After two weeks Non-emergency contact: Fire Manager Call non-emergency contact if: you have any medication questions Follow-up/Referrals: Irene Winchester DO [Primary Care Provider] - 08/27/19 9:05 am () Diet: Heart Healthy Addtl Attending Provider Instructions: Keep dressing on and dry until your wound check next week Device and wound check at [facility] on August 26 10:15am If you notice any swelling call my office immediately Please look at the device area daily for the next month if you notice any concerns call Dr. Parekh's office Pending Studies at Discharge: No Stand-Alone Forms: [facility] Medications and DC Order Prescriptions: New metoprolol succinate 50 mg Tablet Extended Release 24 Hr 50 mg PO QAM 30 Days Qty: 30 RF: 6 Continued mupirocin 2 % ointment 1 applic TOP BID Qty: 15 RF: 2 fexofenadine 180 mg Tablet 180 mg PO DAILY PRN (Reason: Allergy Symptoms) RF: 0 omeprazole 20 mg Tablet,Delayed Release (Dr/Ec) 20 mg PO AMPM RF: 0 cholecalciferol (vitamin D3) [Vitamin D3] 2,000 unit Tablet 2,000 unit PO QAM RF: 0 Azo Bladder Control 300 mg Capsule 1 cap PO QAM RF: 0 nitroglycerin [Nitrostat] 0.4 mg tablet, sublingual 0.4 mg Sublingual Q5M Qty: 25 RF: 3 Brilinta 90 mg tablet 90 mg PO BID Qty: 60 RF: 11 fluticasone propionate [Flonase Allergy Relief] 50 mcg/actuation [place],Suspension 2 spray INTRANASAL QAM RF: 0 atorvastatin 80 mg tablet 80 mg PO QAM RF: 0 aspirin 81 mg Tablet,Delayed Release (Dr/Ec) 81 mg PO HS Qty: 0 RF: 0 dicyclomine 20 mg Tablet 20 mg PO TID PRN (Reason: IBS) RF: 0 metoprolol succinate 25 mg tablet extended release 24 hr 25 mg PO QAM RF: 0 levothyroxine 125 mcg Tablet 125 mcg PO QAM RF: 0 lansoprazole [Prevacid] 30 mg Capsule,Delayed Release(Dr/Ec) 30 mg PO AMPM RF: 0 hydrochlorothiazide 12.5 mg Capsule 12.5 mg PO DAILY RF: 0 Discharge Orders: Discharge Order (Routine); Ordered 08/20/19 Ordered By: Lori Liang/Other Patient Handouts: Discharge Instructions for Pacemaker Implantation, Metoprolol extended-release tablets Admission Data Admit Date/Time: 08/18/19 09:38 Attending Provider: Lori Parekh Admit Provider: Lori Parekh Primary Care Provider: Irene Winchester. Other Interventions: Discharge Summary Assessment (RN) Last Done: 08/20/19 09:03 DC Date/Time DO NOT enter until pt leaves facility: 08/20/19 11:06
[2019-08-18] MEDS ORDERED: ONDANSETRON INJ 2 MG/ML 2 ML VIAL ONE ×2 (10:29→11:20)
[2019-08-18] MEDS: METOPROLOL SUCC 50MG EXT REL TAB PO SCH (10:36)
[2019-08-18] MEDS ORDERED: hydroCHLOROthiazide 25 MG TAB PO ONE (10:45)
[2019-08-18] MEDS ORDERED: ONDANSETRON INJ 2 MG/ML 2 ML VIAL IV STA (11:20)
--- NOTE | 2019-08-18 15:49 | Operative Report (OR) ---
DATE OF OPERATION: 08/18/2019 PREOPERATIVE DIAGNOSIS: Tachybrady syndrome. POSTOPERATIVE DIAGNOSIS: Tachybrady syndrome. PROCEDURE: Dual chamber pacemaker rate responsive under fluoroscopic guidance along with peripheral venogram. SURGEON: Lori Parekh DO. ASSISTANTS: None. ANESTHESIA: Monitored conscious sedation administered under my supervision by Yari Guzman. Start time 8:30, end time 9:53. Total of 8 mg of Versed, 225 mcg of fentanyl. INTRAVENOUS FLUIDS: 50 mL. BLOOD LOSS: 50 mL. ADDITIONAL MEDICATIONS: 1 gram of Ancef, 20 mg of hydralazine, 5 mg of vasopressin and 10 mL of 10cc IV contrast. COMPLICATIONS: None. CONDITION: Stable. URINE OUTPUT: None. SPECIMENS: None. FINDINGS: See below. DRAINS: None. INDICATIONS: This is a 74-year-old female with past medical history for non-STEMI, status post PCI to LAD and RCA in 05/2017. [id number], she had pericarditis pretty significant in 05/2017 and then a recurrence in 11/2018, hypertension, provoked DVT/PE after a total knee replacement, she was on Premarin at that time, hypothyroidism, hyperlipidemia, gastroesophageal reflux disease, chronic kidney disease stage III. She wore a Zio patch that showed evidence of tachybrady syndrome and the faster heart rates were more bothersome to her, but due to the bradycardia, we are unable to increase her beta johnna. I did repeat a nuclear stress test that was unremarkable for ischemia, so we have recommended a pacemaker, so then we could increase AV cooper blockers better. CONSENT: Consent was obtained prior to the patient going into the electrophysiology lab. The patient was informed of the risks, benefits and alternative procedure. Risks include but not limited to sudden cardiac , cardiac arrhythmias, cerebrovascular accident, myocardial infarction, injury to the blood vessels, chamber of the heart, lungs, bleeding and infection. The patient understood these risks and agreed to the procedure as planned. Informed consent was obtained. DESCRIPTION OF THE PROCEDURE: The patient was brought into the electrophysiology lab in a fasting state. She was connected to continuous quality assurance monitor. Timeout was performed to ensure patient's identity and procedure correctly. The patient was prepped and draped over the left infraclavicular space in normal surgical standard fashion. Monitored conscious sedation was given throughout the procedure for patient's comfort level. Safford precautions were maintained throughout the procedure. A 20 mL of 1% lidocaine-bupivacaine mixture were given in the left deltopectoral groove. Incision was made in the left deltopectoral groove. Blunt dissection was performed down to identify the cephalic vein; however, none could be identified. So I did a peripheral venogram using 10 mL of contrast diluted followed by 20 mL of saline flush. Axillary venous access was obtained through a needlestick without any problems. The guidewire was inserted without any resistance. An 8-British sheath was inserted over the guidewire without any resistance. The dilator was removed and a second guidewire was inserted through the 8-British sheath to allow for retained venous access. The sheath was removed, flushed, dilator then was reinserted over one of the guidewires. Guidewire and dilator removed and the right ventricular lead was advanced into right ventricle and positioned into the right ventricle on the low septum region. There was adequate pacing and sensing thresholds and no diaphragmatic stimulation with high output pacing. The 8-British sheath was peeled away and lead was fixated to pectoralis muscle using 0 silk suture. A second 8-British sheath was inserted over the retained guidewire without any resistance. Guidewire and dilator removed. The right atrial lead was advanced into right atrium and positioned into the right atrial appendage. Of note, I had to reposition it a few times, I ultimately used the preformed J curve. There was adequate pacing and sensing thresholds and no diaphragmatic stimulation in high output pacing. The 8-British sheath was peeled away and lead was fixated to pectoralis muscle using 0 silk suture. Her blood pressure was extremely elevated prior to the procedure as well as during the entire procedure. She got additional medications and a lot of sedation to try to help it. She did have a lot of high venous pressure and so a lot of back bleeding. I put a 2-[address] needle, a pursestring around the venous puncture site which helped a lot of the back bleeding. Pacemaker pocket was created using blunt dissection over the pectoralis muscle in the pectoralis fascia. The pocket was flushed with copious amounts of bacitracin saline wash and inspected for hemostasis. The pulse generator was attached to leads making sure that the pins were in appropriate position, passed set screw and set screws were all tightened. Pulse generator was then placed in the pocket, making sure that the leads were lying flat beneath the device. A stay stitch using 0 silk suture was used to secure the pectoralis muscle. The incision was closed in 3-layer fashion with 2-0 Vicryl interrupted suture followed by 3-0 Vicryl interrupted suture followed by 4-0 Monocryl running stitch and Dermabond was applied followed by Telfa and micropore dressing . EQUIPMENT: 1. Pulse generator is a [employer] [place] XT DR SORIA SylvesterRoberto [id number], serial number [id number]. 2. Right atrial lead, Medtronic 5076-52 cm, serial number [id number]. 3. Right ventricular lead, Medtronic 5076-58 cm, serial number [id number]. INTRAOPERATIVE TESTIN. Right atrial lead: P waves 4.1 millivolts, impedance 494 ohms, threshold 0.5 volts at 0.4 milliseconds. 2. Right ventricular lead: R waves 6.9 millivolts, impedance 760 ohms, threshold 0.5 volts at 0.4 milliseconds. FINAL MEASUREMENTS THROUGH THE DEVICE: 1. Right atrial lead: P waves 4.5 millivolts, impedance 475 ohms, threshold 0.75 volts at 0.4 milliseconds. 2. Right ventricular lead: R waves 7.5 millivolts, impedance 741 ohms, threshold 0.5 volts at 0.4 milliseconds. FINAL PARAMETERS: MVP-R 60/130. Right atrial amplitude 3.5 volts, pulse width 0.4 milliseconds, sensitivity 0.3 millivolts. Right ventricular amplitude 3.5 volts, pulse width 0.4 milliseconds, sensitivity 1.2 millivolts. IMPRESSION: Successful implantation of a dual chamber rate responsive permanent pacemaker under fluoroscopic guidance along with peripheral venogram secondary to tachybrady syndrome. PLAN: Monitor the patient overnight, 12-lead ECG, chest x-ray. She cannot lift the left elbow or left shoulder for 1 month. She cannot lift more than 10 pounds with the left arm for 2 weeks. She is to keep the dressing on and dry until her wound check next week. We will increase her metoprolol to 50 mg daily and try to get better management of her blood pressure through the night as well as her pain control. I attest to the content of the Intraoperative Record and any orders documented therein. Any exceptions are noted below. MTDD
--- NOTE | 2019-08-18 15:56 | Electrocardiogram Report ---
Test Reason : Blood Pressure : / mmHG Vent. Rate : 093 BPM Atrial Rate : 093 BPM P-R Int : 160 ms QRS Dur : 090 ms QT Int : 396 ms P-R-T Axes : 059 021 046 degrees QTc Int : 492 ms Normal sinus rhythm Nonspecific T wave abnormality Abnormal ECG When compared with ECG of 04-APR-2019 13:56, No significant change was found Confirmed by Pedro Cueto ([id number]) on 08/18/2019 3:56:30 PM Referred By: Lori Parekh Confirmed By:Floyd Cueto
[2019-08-18] MEDS: ASPIRIN 81 MG ECTAB PO SCH (21:19)
[2019-08-18] MEDS: TICAGRELOR 90 MG TAB PO SCH (21:19)
[2019-08-18] MEDS: PANTOprazole 40 MG TAB PO SCH (21:20)
[2019-08-18] MEDS: ACETAMINOPHEN 325 MG TAB PO PRN (21:21)
[2019-08-19] MEDS: ACETAMINOPHEN 325 MG TAB PO PRN ×4 (00:02→21:20)
[2019-08-19] MEDS: LEVOTHYROXINE SODIUM 125 MCG TABLET PO SCH (06:12)
[2019-08-19] MEDS: PANTOprazole 40 MG TAB PO SCH ×2 (08:49→21:22)
[2019-08-19] MEDS: METOPROLOL SUCC 50MG EXT REL TAB PO SCH ×2 (08:49→21:24)
[2019-08-19] MEDS: ATORVASTATIN 40 MG TAB PO SCH (08:49)
[2019-08-19] MEDS: TICAGRELOR 90 MG TAB PO SCH ×2 (08:49→21:22)
[2019-08-19] MEDS: FLUTICASONE PROPIONATE NA SPR 16 GM BTL SCH (08:50)
[2019-08-19] MEDS: CHOLECALCIFEROL 1,000 UNITS 25 MCG TAB PO SCH (08:50)
[2019-08-19] MEDS ORDERED: [UNRECOGNIZED DRUG - OTHER] PO SCH (09:00)
--- NOTE | 2019-08-19 09:05 | XRay Report ---
XR chest 2V PA/lateral HISTORY: Post pacemaker placement. COMPARISON: Chest 11/13/2018. FINDINGS: There are low lung volumes. Interval placement of a left-sided dual-chamber pacemaker. The leads appear intact. No pneumothorax. Trace bilateral pleural effusions. Bibasilar linear densities f avor atelectasis. Moderate hiatus hernia, unchanged. The heart remains mildly enlarged. No evidence f or pulmonary edema. Coronary artery stent is noted. IMPRESSION: Status post left-sided dual-chamber pacemaker. The leads appear intact. No pneumothorax. Bibasilar de nsities and trace bilateral pleural effusions. ACT 112: Negative or not required by law. Electronically signed by: Jerome Segura M.D. 08/19/2019 9:03 AM
--- NOTE | 2019-08-19 15:20 | Cardiology Progress Note ---
Date of Service August 19, 2019 Assessment & Plan (1) Hypertension: (2) Nausea: Subjective Pt is POD 1 from ppm implant. She is still having alot of nausea and generalized weakness from all the sedation and pain medications she got yesterday. Is not feeling well and unable to ambulate without assistance given the symptoms Review of Systems Review of Systems: All systems reviewed & are unremarkable except as noted in HPI & below +nausea, fatigue, +weakness +pain at incision area Physical Exam Physical Exam: aaox3, NAD NC/AT, EOMI Supple No JVD Nrl S1/S2, No murmur CTA b/l no w/r/r soft nt/nd no LE edema b/l skin intact no focal deficits left pectoral incision intact, no hematoma mild ecchymosis Results & Data Vital Signs (Past 12 Hours) Vital Signs Temp Pulse Pulse Resp BP Pulse Ox 08/19/19 08:42 80 18 107/73 93 08/19/19 07:47 37 C 75 16 111/75 93 08/19/19 07:31 79 08/19/19 03:34 37.0 C 79 17 93/52 L 92
[2019-08-19] MEDS: ASPIRIN 81 MG ECTAB PO SCH (21:22)
[2019-08-20] MEDS: ACETAMINOPHEN 325 MG TAB PO PRN ×2 (02:34→08:31)
[2019-08-20] MEDS: LEVOTHYROXINE SODIUM 125 MCG TABLET PO SCH (06:15)
[2019-08-20] MEDS: FLUTICASONE PROPIONATE NA SPR 16 GM BTL SCH (08:22)
[2019-08-20] MEDS: METOPROLOL SUCC 50MG EXT REL TAB PO SCH (08:23)
[2019-08-20] MEDS: ATORVASTATIN 40 MG TAB PO SCH (08:23)
[2019-08-20] MEDS: CHOLECALCIFEROL 1,000 UNITS 25 MCG TAB PO SCH (08:23)
[2019-08-20] MEDS: TICAGRELOR 90 MG TAB PO SCH (08:23)
[2019-08-20] MEDS: PANTOprazole 40 MG TAB PO SCH (08:23)
[2019-08-20] MEDS ORDERED: hydroCHLOROthiazide 25 MG TAB PO SCH (09:00)
== END 2019-08-20 11:06 | disposition home or self-care (01) ==
LOC: 2S 07:47 → EP 07:47

== ENCOUNTER 2021-01-23 20:29 | Observation (INO) ==
[2021-01-23] MEDS ORDERED: SODIUM CHLORIDE 0.9% 500 ML IV ONE (20:44)
--- NOTE | 2021-01-23 20:44 | Emergency Department Note ---
Impression & Plan Chest pain, Hypertension ED Provider Note Was completeNAME: JENSEN MARTINEZ AGE: 75 SEX: F : 1945 ARRIVES VIA: Ambulance INFORMANT: Patient ED PROVIDER(S): Mu Sheridan DO CHIEF COMPLAINT: chest pain HPI: Patient is a 75-year-old female with a past medical history of severe CAD, tachy-bradycardia syndrome, 2 previous stents, NSTEMI, hypertension, IVC filter placement of presents to the ER for chest pain. She describes as a tightness, across her entire chest. No arm or jaw pain. No shortness of breath. She called EMS. Started around 8 PM. She was given nitro and aspirin. Symptoms completely resolved with sublingual nitro spray. Denies any dysuria, urgency, or frequency. No other exacerbating or remitting factors. This does feel slightly different than her previous SD. Last cath was April 2018. ROS: See above HPI for pertinent positives & negatives. A total of 10 systems reviewed and were otherwise negative. PAST MEDICAL HISTORY:See Below PAST SURGICAL HISTORY:See Below FAMILY HISTORY:See Below SOCIAL HISTORY:See Below HOME MEDICATIONS:See Below ALLERGIES:See Below VITALS:See Below PHYSICAL EXAMINATION: GENERAL: Sitting up in bed, alert, well appearing, well nourished, no distress, non-toxic EYE EXAM: normal conjunctiva. PERRL and EOM's grossly intact. OROPHARYNX: no exudate, no erythema, lips, buccal mucosa, and tongue normal and mucous membranes are moist NECK: supple, no nuchal rigidity, no adenopathy, non-tender LUNGS: Clear to auscultation. Normal chest wall mechanics HEART: no murmurs, S1 normal and S2 normal ABDOMEN: abdomen soft, non-tender, normo-active bowel sounds, no masses, no rebound or guarding. UPPER EXTREMITIES: upper extremities are grossly normal. LOWER EXTREMITIES: No pitting edema. NEURO EXAM: Normal sensorium, cranial nerves II-XII grossly intact, normal speech, no gross weakness of arms, no gross weakness of legs. MEDICAL DECISION MAKING: Patient 75-year-old female with a past medical history of CAD and 2 previous stents the presents the ER for chest pain abated/relieved with EMSs nitro. IV was established blood was obtained. Labs show leukocytosis of 15,000. No significant anemia. BMP with mild hypokalemia 3.3. LFTs bilirubin was unremarkable. Lipase was normal. TSH was unremarkable. Covid was negative. Chest x-ray left pleural effusion and hiatal hernia. EKG was nondiagnostic. Patient was pain-free while in the ER. She is given IV fluids. She already received aspirin. She was updated bedside. Discussed with hospitalist Dr. Ceferino mobley for further evaluation. Triage Nursing notes reviewed. Limited review of prior medical records performed Vital Signs: reviewed and remarkable for HTN and tachy Differential diagnosis: Differential diagnoses includes but is not limited to acute coronary syndrome, myocardial infarction, pericarditis, pulmonary embolus, aortic dissection, pn eumonia, pneumothorax, musculoskeletal, shingles, esophageal. ER treatment provided: See below Diagnostics interpreted by me: ECG: Sinus tachycardia rate of 112 Normal axis PVCs Nonspecific ST wave changes in the high lateral leads Inferior Q waves QTC 480 No significant change from previous 2019 Cardiac Monitoring: An order was placed for continuous cardiac monitoring. The monitor shows a rate of 108 with sinus rhythm. Laboratory studies: As stated above and show below. Imaging studies: Portable AP upright 1 view of the chest shows left-sided pleural effusion Consultation(s): As discussed above Procedures: none Critical Care: None Past Med/Surg History Medical History (Updated 01/23/21 @ 23:36 by Mu Sheridan DO) CAD (coronary artery disease) Dyslipidemia GERD (gastroesophageal reflux disease) History of DVT (deep vein thrombosis) History of non-ST elevation myocardial infarction (NSTEMI) History of pulmonary embolism Hypertension (Unknown) BP better today continue higher dose of metoprolol 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 Hypothyroidism Ischemic cardiomyopathy Non-ST elevated myocardial infarction (non-STEMI) Osteoporosis Retinal vein occlusion of right eye Rupture of left posterior tibialis tendon Vitamin B12 deficiency Surgical History History of cardiac cath S/P BSO (status post bilateral salpingo-oophorectomy) S/P IVC filter Status post hysterectomy Status post right knee replacement Family History Father Coronary heart disease Heart disease Mother Stroke Allergies Grandmother Asthma Grandfather Asthma Other Hypertension No family history of adverse response to anesthesia No family history of bleeding disorder Social History Smoking Status: Never smoker Second Hand Exposure: Yes; Hx Alcohol Use: No Hx Substance Use: No Preferred Language: Romanian Communication Ability: Effective Heel Seat Pounder Required: No Beliefs That Will Affect Care: None marital status: Current Living Situation: Family Current Living Situation Comment: lives in own apartment at daughter's house current occupational status: employed Feels Safe at Home: Yes Assistive Devices: None Allergies Allergies Allergy/AdvReac Type Severity Reaction Status Date / Time imipenem Allergy Severe ANAPHYLAXIS Verified 01/23/21 21:07 Sulfa (Sulfonamide Allergy Severe hives,sob, Verified 01/23/21 21:07 Antibiotics) can take Dyazide daptomycin AdvReac Severe Anaphylaxis Unverified 01/23/21 21:07 colchicine AdvReac Intermediate diarrhea Verified 01/23/21 21:07 metoprolol AdvReac Mild fatigue Verified 01/23/21 22:57 zoledronic acid AdvReac Mild NAUSEA AND Verified 01/23/21 21:07 VOMITING Home Meds Home Medications Medication Instructions Recorded Confirmed cholecalciferol (vitamin D3) 50 2,000 unit PO QAM 04/28/18 01/23/21 mcg (2,000 unit) tablet (Vitamin D3) fexofenadine 180 mg tablet 180 mg PO DAILY PRN 04/28/18 01/23/21 (Elke Allergy) omeprazole 20 mg tablet,delayed 20 mg PO BID 04/28/18 01/23/21 release pumpkin seed extract-soy germ 300 1 cap PO QAM 04/28/18 01/23/21 mg capsule (Azo Bladder Control) fluticasone propionate 50 2 spray INTRANASAL QAM 06/03/18 01/23/21 mcg/actuation nasal spray,suspension (Flonase Allergy Relief) dicyclomine 20 mg tablet 20 mg PO TID PRN 02/12/19 01/23/21 lansoprazole 30 mg capsule,delayed 30 mg PO AMPM 04/04/19 01/23/21 release (Prevacid) allopurinol 300 mg tablet 450 mg PO DAILY 01/23/21 01/23/21 coenzyme Q10 100 mg capsule 100 mg PO DAILY 01/23/21 01/23/21 (CoQ-10) diltiazem HCl 360 mg 360 mg PO DAILY 01/23/21 01/23/21 tablet,extended release 24 hr levothyroxine 137 mcg tablet 137 mcg PO DAILYBB 01/23/21 01/23/21 losartan 25 mg tablet 25 mg PO DAILY 01/23/21 01/23/21 rosuvastatin 5 mg tablet 5 mg PO DAILY 01/23/21 01/23/21 Previous Rx's Medication Instructions Recorded nitroglycerin 0.4 mg sublingual 0.4 mg SUBLINGUAL Q5M #25 tab 05/01/18 tablet (Nitrostat) aspirin 81 mg tablet,delayed 81 mg PO HS #0 tab 05/16/18 release Results & Data (ED) Vital Signs Vital Signs - 24 hr 01/23/21 20:30 01/23/21 20:39 01/23/21 22:41 Temperature 36.5 C Temperature Source Oral Pulse Rate 112 H 103 H Respiratory Rate 20 Respiratory Effort / Characteristics Non-Labored Spontaneous Respiratory Depth Normal Blood Pressure 189/109 H 168/127 H Blood Pressure Mean 135 Pulse Oximetry 97 96 Oxygen Delivery Method Room Air Room Air Sepsis New/Unexplained Change in Mental Status N/A Sepsis Action Taken by Nursing No Action Required Laboratory Data Result diagrams: 01/23/21 20:30 01/23/21 20:30 Lab Results 01/23/21 01/23/21 01/23/21 Range/Units 20:30 20:30 20:38 WBC 15.36 H (4.8-10.8) K/uL RBC 4.10 L (4.2-5.4) M/uL Hgb 13.2 (12.0-16.0) g/dL Hct 40.5 (37-47) % MCV 98.8 (80-100) fL MCH 32.2 (25-34) pg MCHC 32.6 (32-36) g/dL RDW Std Deviation 51.6 H (36.4-46.3) fL RDW Coeff of Agnes 14.4 (11.5-14.5) % Plt Count 374 (130-400) K/uL MPV 10.5 H (7.4-10.4) fL Immature Gran % (Auto) 0.5 % Neut % (Auto) 63.4 % Lymph % (Auto) 23.0 % [place] % (Auto) 12.1 % Eos % (Auto) 0.5 % Baso % (Auto) 0.5 % Neut # (Auto) 9.74 H (1.4-6.5) K/uL Lymph # (Auto) 3.53 H (1.2-3.4) K/uL [place] # (Auto) 1.86 H (0.11-0.59) K/uL Eos # (Auto) 0.07 (0-0.5) K/uL Baso # (Auto) 0.08 (0-0.2) K/uL Immature Gran # (Auto) 0.08 H (0.00-0.02) K/uL APTT (21.0-31.0) Seconds PTT Ratio Sodium 144 (136-145) mmol/L Potassium 3.3 L (3.5-5.1) mmol/L Chloride 111 H (98-107) mmol/L Carbon Dioxide 27 (21-32) mmol/L Anion Gap 7.0 (3-11) BUN 28 H (7-18) mg/dl Creatinine 0.93 (0.6-1.2) mg/dl Est Cr Clr Drug Dosing 53.3 ml/min Est GFR ( Amer) 69.7 ml/min Est GFR (Non-Af Amer) 60.1 ml/min BUN/Creatinine Ratio 29.7 H (10-20) Glucose 116 H (70-99) mg/dl Calcium 8.8 (8.5-10.1) mg/dl Magnesium 2.0 (1.8-2.4) mg/dl Total Bilirubin 0.2 (0.2-1) mg/dl AST < 3 L (15-37) U/L ALT 15 (12-78) U/L Alkaline Phosphatase 98 (45-117) U/L Troponin I < 0.015 (0-0.045) ng/ml Total Protein 6.3 L (6.4-8.2) gm/dl Albumin 3.3 L (3.4-5.0) gm/dl Globulin 3.0 (2.5-4.0) gm/dl Albumin/Globulin Ratio 1.1 (0.9-2) Lipase 143 (73-393) U/L Procalcitonin < 0.05 (0-0.5) ng/ml TSH 0.795 (0.300-4.500) uIu/ml COVID-19 Eval Order SARS-CoV-2 (PCR) (Negative) 01/23/21 01/23/21 01/23/21 Range/Units 20:38 20:44 20:44 WBC (4.8-10.8) K/uL RBC (4.2-5.4) M/uL Hgb (12.0-16.0) g/dL Hct (37-47) % MCV (80-100) fL MCH (25-34) pg MCHC (32-36) g/dL RDW Std Deviation (36.4-46.3) fL RDW Coeff of Agnes (11.5-14.5) % Plt Count (130-400) K/uL MPV (7.4-10.4) fL Immature Gran % (Auto) % Neut % (Auto) % Lymph % (Auto) % [place] % (Auto) % Eos % (Auto) % Baso % (Auto) % Neut # (Auto) (1.4-6.5) K/uL Lymph # (Auto) (1.2-3.4) K/uL [place] # (Auto) (0.11-0.59) K/uL Eos # (Auto) (0-0.5) K/uL Baso # (Auto) (0-0.2) K/uL Immature Gran # (Auto) (0.00-0.02) K/uL APTT 23.4 (21.0-31.0) Seconds PTT Ratio 0.9 Sodium (136-145) mmol/L Potassium (3.5-5.1) mmol/L Chloride (98-107) mmol/L Carbon Dioxide (21-32) mmol/L Anion Gap (3-11) BUN (7-18) mg/dl Creatinine (0.6-1.2) mg/dl Est Cr Clr Drug Dosing ml/min Est GFR ( Amer) ml/min Est GFR (Non-Af Amer) ml/min BUN/Creatinine Ratio (10-20) Glucose (70-99) mg/dl Calcium (8.5-10.1) mg/dl Magnesium (1.8-2.4) mg/dl Total Bilirubin (0.2-1) mg/dl AST (15-37) U/L ALT (12-78) U/L Alkaline Phosphatase (45-117) U/L Troponin I (0-0.045) ng/ml Total Protein (6.4-8.2) gm/dl Albumin (3.4-5.0) gm/dl Globulin (2.5-4.0) gm/dl Albumin/Globulin Ratio (0.9-2) Lipase (73-393) U/L Procalcitonin (0-0.5) ng/ml TSH (0.300-4.500) uIu/ml COVID-19 Eval Order Covid19 at [facility] SARS-CoV-2 (PCR) NEGATIVE (Negative) Administered Medications Magnesium Sulfate/Dextrose (Magnesium Sulfate / D5w) 1 gm in 100 mls @ 50 mls/hr IV ONE ONE Stop: 01/23/21 23:48 Last Admin: 01/23/21 22:41 Dose: 50 mls/hr Documented by: [id number] Discontinued Medications Sodium Chloride (Nss) 500 mls @ 999 mls/hr IV .Q31M ONE Stop: 01/23/21 21:14 Last Infusion: 01/23/21 21:43 Dose: 0 mls/hr Documented by: [id number] Admin: 01/23/21 20:54 Dose: 999 mls/hr Documented by: [id number] Metoprolol Tartrate (Metoprolol Tartrate 1 Mg/Ml Vial) 5 mg IV NOW STA Stop: 01/23/21 21:47 Last Admin: 01/23/21 22:41 Dose: 5 mg Documented by: [id number] Potassium Chloride (Potassium Chloride Crtab 20 Meq Tabcr) 40 meq PO NOW STA Stop: 01/23/21 21:48 Last Admin: 01/23/21 22:43 Dose: 40 meq Documented by: [id number] Imaging Data Radiologist's Impression: Chest X-Ray 01/23/21 20:33 XR chest 1V portable CLINICAL HISTORY: Atypical chest pain. COMPARISON STUDY: Chest CT November 13, 2018. Chest radiograph August 19, 2019. FINDINGS: Dual lead left subclavian pacemaker is in place. No pneumothorax is present. There is a small left pleural effusion. There is no evidence for pulmonary edema. Cardiomegaly is unchanged. Mild left basilar opacity is present. A hiatal hernia is present. IMPRESSION: 1. Small left pleural effusion. 2. Cardiomegaly without evidence for pulmonary edema. 3. Mild left basilar opacity. Atelectasis is favored although an infectious process could appear similar. 4. Hiatal hernia ACT 112: Negative or not required by law. Electronically signed by: Andrés Cárdenas M.D. 01/23/2021 8:47 PM Discharge Plan Visit Data Chief Complaint: Chest Pain Stated Complaint: CHEST PAIN ED Provider: Mu Sheridan Discharge Problem: Chest pain, Hypertension Forms Stand Alone Forms: [facility] [employer] Prescriptions Prescriptions: No Action fexofenadine [Elke Allergy] 180 mg Tablet 180 mg PO DAILY PRN (Reason: Allergy Symptoms) RF: 0 omeprazole 20 mg Tablet,Delayed Release (Dr/Ec) 20 mg PO BID RF: 0 cholecalciferol (vitamin D3) [Vitamin D3] 2,000 unit Tablet 2,000 unit PO QAM RF: 0 Azo Bladder Control 300 mg Capsule 1 cap PO QAM RF: 0 nitroglycerin [Nitrostat] 0.4 mg tablet, sublingual 0.4 mg Sublingual Q5M Qty: 25 RF: 3 fluticasone propionate [Flonase Allergy Relief] 50 mcg/actuation [place] 2 spray INTRANASAL QAM RF: 0 aspirin 81 mg Tablet,Delayed Release (Dr/Ec) 81 mg PO HS Qty: 0 RF: 0 dicyclomine 20 mg Tablet 20 mg PO TID PRN (Reason: IBS) RF: 0 lansoprazole [Prevacid] 30 mg Capsule,Delayed Release(Dr/Ec) 30 mg PO AMPM RF: 0 levothyroxine 137 mcg tablet 137 mcg PO DAILYBB RF: 0 losartan 25 mg tablet 25 mg PO DAILY RF: 0 diltiazem HCl 360 mg tablet extended release 24 hr 360 mg PO DAILY RF: 0 rosuvastatin 5 mg tablet 5 mg PO DAILY RF: 0 coenzyme Q10 [CoQ-10] 100 mg Capsule 100 mg PO DAILY RF: 0 allopurinol 300 mg tablet 450 mg PO DAILY RF: 0 Referrals Referrals: Irene Winchester DO [Primary Care Provider] -
--- NOTE | 2021-01-23 20:49 | XRay Report ---
XR chest 1V portable CLINICAL HISTORY: Atypical chest pain. COMPARISON STUDY: Chest CT November 13, 2018. Chest radiograph August 19, 2019. FINDINGS: Dual lead left subclavian pacemaker is in place. No pneumothorax is present. There is a sma ll left pleural effusion. There is no evidence for pulmonary edema. Cardiomegaly is unchanged. Mild l eft basilar opacity is present. A hiatal hernia is present. IMPRESSION: 1. Small left pleural effusion. 2. Cardiomegaly without evidence for pulmonary edema. 3. Mild left basilar opacity. Atelectasis is favored although an infectious process could appear christine lar. 4. Hiatal hernia ACT 112: Negative or not required by law. Electronically signed by: Andrés Cárdenas M.D. 01/23/2021 8:47 PM
[2021-01-23 21:11] LABS: Alanine Aminotransferase 15 U/L (12-78); Albumin Level 3.3 gm/dl (3.4-5.0); Aspartate Aminotransferase < 3 U/L (15-37); BUN Creatinine Ratio 29.7 (10-20); Blood Urea Nitrogen 28 mg/dl (7-18); Calcium 8.8 mg/dl (8.5-10.1); Carbon Dioxide 27 mmol/L (21-32); Chloride 111 mmol/L (98-107); Creatinine Clr Calc Pharmacy 53.3 ml/min; Est GFR (African American) 69.7 ml/min; Est GFR (Non-African American) 60.1 ml/min; Glucose 116 mg/dl (70-99); Lipase 143 U/L (73-393); Potassium 3.3 mmol/L (3.5-5.1); Sodium 144 mmol/L (136-145)
[2021-01-23 21:13] LABS: Basophils # (auto) 0.08 K/uL (0-0.2); Basophils % (auto) 0.5 %; Eosinophils # (auto) 0.07 K/uL (0-0.5); Eosinophils % (auto) 0.5 %; Hematocrit (blood only) 40.5 % (37-47); Hemoglobin 13.2 g/dL (12.0-16.0); Immature Granulocytes # (auto) 0.08 K/uL (0.00-0.02); Immature Granulocytes % (auto) 0.5 %; Lymphocytes # (auto) 3.53 K/uL (1.2-3.4); Mean Corpuscular Hemoglobin 32.2 pg (25-34); Mean Corpuscular Hgb Conc 32.6 g/dL (32-36); Mean Corpuscular Volume 98.8 fL (80-100); Mean Platelet Volume 10.5 fL (7.4-10.4); Monocytes # (auto) 1.86 K/uL (0.11-0.59); Monocytes % (auto) 12.1 %; Neutrophils # (auto) 9.74 K/uL (1.4-6.5); Neutrophils % (auto) 63.4 %; Platelet Count 374 K/uL (130-400); RDW Coefficient of Variation 14.4 % (11.5-14.5); RDW Standard Deviation 51.6 fL (36.4-46.3); White Blood Count 15.36 K/uL (4.8-10.8)
[2021-01-23 21:17] LABS: Albumin Globulin Ratio 1.1 (0.9-2); Alkaline Phosphatase 98 U/L (45-117); Bilirubin,Total 0.2 mg/dl (0.2-1); Total Protein 6.3 gm/dl (6.4-8.2); Troponin I < 0.015 ng/ml (0-0.045)
[2021-01-23] MEDS ORDERED: METOPROLOL TARTRATE 1 MG/ML VIAL IV STA (21:46)
[2021-01-23] MEDS ORDERED: POTASSIUM CHLORIDE CRTAB 20 MEQ TABCR PO STA ×2 (21:47→23:44)
[2021-01-23] MEDS ORDERED: MAGNESIUM SULFATE / D5W 1 GM/100 ML BAG IV ONE (21:49)
[2021-01-23 22:20] LABS: Thyroid Stimulating Hormone 0.795 uIu/ml (0.300-4.500)
[2021-01-23 22:27] LABS: Partial Thromboplastin Ratio 0.9; Partial Thromboplastin Time 23.4 Seconds (21.0-31.0)
--- NOTE | 2021-01-23 23:05 | History & Physical Report ---
Date of Service January 23, 2021 Assessment & Plan (1) Chest pain: Plan: ? Possible GERD attack given burning quality and onset after fatty meal ? uncontrolled HTN, personal stressors and decongestant intake contributory Rule out ACS given history CAD status post stent and nitro relief SSS sp PPM, patient NSR hyperlipidemia on statin Rx hx PE/DVT status post anticoagulation status post IVC filter placement hypothyroidism, euthyroid as of today's TSH prediabetes, hemoglobin A1c of 6.29 September 2020 OBS PCU Extra dose PPI for now Analgesia, anxiolytic as needed Titrate home BP meds IV Lopressor 1 dose now given elevated BP and tachycardia Continue aspirin for secondary CAD prevention Follow troponin, TTE if with progression Cardiology consult Re: Chest pain, history CAD N.p.o. after midnight in anticipation of procedure. DVT prophylaxis. Lovenox subcu Full code Text document was generated using [employer] voice recognition software. It may contain grammatical or spelling errors. Kindly contact undersigned for clarification of any documentation item in question. History of Present Illness Chief Complaint: Chest tightness Primary Care Provider: Irene Winchester, History obtained from patient and records. Medical history significant for CAD status post stent, SSS sp PPM, history of pe ricarditis, hypertension, hyperlipidemia, hx PE/DVT status post anticoagulation status post IVC filter placement, GERD, hypothyroidism, prediabetes. Last confinement October 2018 for dyspnea on exertion attributed to hypertension, diastolic dysfunction. Patient noted substernal tightness described as burning after a dinner heavier than usual. No shortness of breath, no cough symptoms. Unlike any other chest pain episode in the past. SBP noted to be high at home 180s as per patient. Unusual for her. Admits to personal stressors along with recent chlorpheniramine intake for sinus congestion symptoms which has since resolved. Diarrhea without abdominal pain as per patient.. Persistent chest tightness symptoms until patient received aspirin and nitroglycerin at the ER. MEDICAL HISTORY: As above. SURGERIES: She has had knee surgery, bladder surgery, eye surgery, IVC filter placement, total abdominal hysterectomy, bilateral salpingo-oophorectomy, tonsillectomy FAMILY HISTORY : Asthma, heart disease, stroke PERSONAL AND SOCIAL HISTORY: Nonsmoker, no chronic intake of alcoholic beverages. [employer] employee. Allergies Allergy/AdvReac Type Severity Reaction Status Date / Time imipenem Allergy Severe ANAPHYLAXIS Verified 01/23/21 21:07 Sulfa (Sulfonamide Allergy Severe hives,sob, Verified 01/23/21 21:07 Antibiotics) can take Dyazide daptomycin AdvReac Severe Anaphylaxis Unverified 01/23/21 21:07 colchicine AdvReac Intermediate diarrhea Verified 01/23/21 21:07 metoprolol AdvReac Mild fatigue Verified 01/23/21 22:57 zoledronic acid AdvReac Mild NAUSEA AND Verified 01/23/21 21:07 VOMITING Home Medications Medication Instructions Recorded Confirmed Type cholecalciferol (vitamin D3) 50 2,000 unit PO QAM 04/28/18 01/23/21 History mcg (2,000 unit) tablet (Vitamin D3) fexofenadine 180 mg tablet 180 mg PO DAILY PRN 04/28/18 01/23/21 History ([place]ke Allergy) omeprazole 20 mg tablet,delayed 20 mg PO BID 04/28/18 01/23/21 History release pumpkin seed extract-soy germ 300 1 cap PO QAM 04/28/18 01/23/21 History mg capsule (Azo Bladder Control) nitroglycerin 0.4 mg sublingual 0.4 mg SUBLINGUAL Q5M #25 tab 05/01/18 01/23/21 Rx tablet (Nitrostat) aspirin 81 mg tablet,delayed 81 mg PO HS #0 tab 05/16/18 01/23/21 Rx release fluticasone propionate 50 2 spray INTRANASAL QAM 06/03/18 01/23/21 History mcg/actuation nasal spray,suspension (Flonase Allergy Relief) dicyclomine 20 mg tablet 20 mg PO TID PRN 02/12/19 01/23/21 History lansoprazole 30 mg capsule,delayed 30 mg PO AMPM 04/04/19 01/23/21 History release (Prevacid) allopurinol 300 mg tablet 450 mg PO DAILY 01/23/21 01/23/21 History coenzyme Q10 100 mg capsule 100 mg PO DAILY 01/23/21 01/23/21 History (CoQ-10) diltiazem HCl 360 mg 360 mg PO DAILY 01/23/21 01/23/21 History tablet,extended release 24 hr levothyroxine 137 mcg tablet 137 mcg PO DAILYBB 01/23/21 01/23/21 History losartan 25 mg tablet 25 mg PO DAILY 01/23/21 01/23/21 History rosuvastatin 5 mg tablet 5 mg PO DAILY 01/23/21 01/23/21 History Past Med/Surg History Medical History CAD (coronary artery disease) Dyslipidemia GERD (gastroesophageal reflux disease) History of DVT (deep vein thrombosis) History of non-ST elevation myocardial infarction (NSTEMI) History of pulmonary embolism Hypertension (Unknown) BP better today continue higher dose of metoprolol 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 Hypothyroidism Ischemic cardiomyopathy Non-ST elevated myocardial infarction (non-STEMI) Osteoporosis Retinal vein occlusion of right eye Rupture of left posterior tibialis tendon Vitamin B12 deficiency Surgical History History of cardiac cath S/P BSO (status post bilateral salpingo-oophorectomy) S/P IVC filter Status post hysterectomy Status post right knee replacement Family History Father Coronary heart disease Heart disease Mother Stroke Allergies Grandmother Asthma Grandfather Asthma Other Hypertension No family history of adverse response to anesthesia No family history of bleeding disorder Social History Smoking Status: Never smoker Second Hand Exposure: No; Do You Dip or Chew Tobacco: No; Tobacco Cessation Education Requested by Patient: No Hx Alcohol Use: No Hx Substance Use: No Preferred Language: Vietnamese Communication Ability: Effective Quality Worker Required: No Beliefs That Will Affect Care: None marital status: Current Living Situation: Family Current Living Situation Comment: Lives with daughter current occupational status: employed How many Children do You have: 1 Other Information That Helps Us Care for You: No Feels Safe at Home: Yes Assistive Devices: None Review of Systems Review of Systems: As per HPI, all 10 systems reviewed, all other ROS negative Physical Exam Physical Exam: GENERAL: Comfortable, pleasant, obese, no respiratory distress SKIN: Normal color, warm HEENT: [place] palpebral conjunctivae, no ptosis, dry buccal mucosa NECK : Supple, no tenderness CHEST : CTA, no tenderness HEART : Tachycardic, no obvious murmurs ABDOMEN: Some distention, nontender EXTREMITIES : No LE swelling/tenderness, no other conspicuous deformities noted NEUROLOGIC : Coherent, no facial asymmetry, no other gross focality Results & Data Results & Data ([facility]) Vital Signs (Past 12 Hours) Vital Signs Temp Pulse Resp BP Pulse Ox 01/23/21 22:41 103 H 168/127 H 01/23/21 20:39 96 01/23/21 20:30 36.5 C 112 H 20 189/109 H 97 Laboratory Results Laboratory Results WBC 15.36 K/uL (4.8-10.8) H 01/23/21 20:30 RBC 4.10 M/uL (4.2-5.4) L 01/23/21 20:30 Hgb 13.2 g/dL (12.0-16.0) 01/23/21 20: Hct 40.5 % (37-47) 01/23/21 20:30 MCV 98.8 fL (80-100) 01/23/21 20:30 MCH 32.2 pg (25-34) 01/23/21 20: MCHC 32.6 g/dL (32-36) 01/23/21 20: RDW Std Deviation 51.6 fL (36.4-46.3) H 01/23/21 20:30 RDW Coeff of Agnes 14.4 % (11.5-14.5) 01/23/21 20: Plt Count 374 K/uL (130-400) 01/23/21 20:30 MPV 10.5 fL (7.4-10.4) H 01/23/21 20:30 Immature Gran % (Auto) 0.5 % 01/23/21 20:30 Neut % (Auto) 63.4 % 01/23/21 20:30 Lymph % (Auto) 23.0 % 01/23/21 20:30 [place] % (Auto) 12.1 % 01/23/21 20:30 Eos % (Auto) 0.5 % 01/23/21 20:30 Baso % (Auto) 0.5 % 01/23/21 20:30 Neut # (Auto) 9.74 K/uL (1.4-6.5) H 01/23/21 20:30 Lymph # (Auto) 3.53 K/uL (1.2-3.4) H 01/23/21 20:30 [place] # (Auto) 1.86 K/uL (0.11-0.59) H 01/23/21 20:30 Eos # (Auto) 0.07 K/uL (0-0.5) 01/23/21 20: Baso # (Auto) 0.08 K/uL (0-0.2) 01/23/21 20: Immature Gran # (Auto) 0.08 K/uL (0.00-0.02) H 01/23/21 20: APTT 23.4 Seconds (21.0-31.0) 01/23/21: PTT Ratio 0.9 01/23/21: Sodium 144 mmol/L (136-145) 01/23/21: Potassium 3.3 mmol/L (3.5-5.1) L 01/23/21: Chloride 111 mmol/L (98-107) H 01/23/21: Carbon Dioxide 27 mmol/L (21-32) 01/23/21: Anion Gap 7.0 (3-11) 01/23/21: BUN 28 mg/dl (7-18) H 01/23/21: Creatinine 0.93 mg/dl (0.6-1.2) 01/23/21: Est Cr Clr Drug Dosing 53.3 ml/min 01/23/21: Est GFR ( Amer) 69.7 ml/min 01/23/21: Est GFR (Non-Af Amer) 60.1 ml/min 01/23/21 20:30 BUN/Creatinine Ratio 29.7 (10-20) H 01/23/21: Glucose 116 mg/dl (70-99) H 01/23/21: Calcium 8.8 mg/dl (8.5-10.1) 01/23/21: Magnesium 2.0 mg/dl (1.8-2.4) 01/23/21: Total Bilirubin 0.2 mg/dl (0.2-1) 01/23/21 20: AST < 3 U/L (15-37) L 01/23/21 20:30 ALT 15 U/L (12-78) 01/23/21 20: Alkaline Phosphatase 98 U/L (45-117) 01/23/21 20:30 Troponin I < 0.015 ng/ml (0-0.045) 01/23/21 20:30 Total Protein 6.3 gm/dl (6.4-8.2) L 01/23/21 20:30 Albumin 3.3 gm/dl (3.4-5.0) L 01/23/21 20:30 Globulin 3.0 gm/dl (2.5-4.0) 01/23/21 20:30 Albumin/Globulin Ratio 1.1 (0.9-2) 01/23/21 20:30 Lipase 143 U/L (73-393) 01/23/21 20:30 Procalcitonin < 0.05 ng/ml (0-0.5) 01/23/21 20:38 TSH 0.795 uIu/ml (0.300-4.500) 01/23/21 20:30 COVID-19 Eval Order Covid19 at [facility] 01/23/21 20:44 SARS-CoV-2 (PCR) NEGATIVE (Negative) 01/23/21 20:44 Impressions Chest X-Ray 01/23/21 20:33 XR chest 1V portable CLINICAL HISTORY: Atypical chest pain. COMPARISON STUDY: Chest CT November 13, 2018. Chest radiograph August 19, 2019. FINDINGS: Dual lead left subclavian pacemaker is in place. No pneumothorax is present. There is a small left pleural effusion. There is no evidence for pulmonary edema. Cardiomegaly is unchanged. Mild left basilar opacity is present. A hiatal hernia is present. IMPRESSION: 1. Small left pleural effusion. 2. Cardiomegaly without evidence for pulmonary edema. 3. Mild left basilar opacity. Atelectasis is favored although an infectious process could appear similar. 4. Hiatal hernia ACT 112: Negative or not required by law. Electronically signed by: Andrés Cárdenas M.D. 01/23/2021 8:47 PM Diagnostic Findings EKG as per my interpretation: Rate 110, sinus tachycardia, normal axis, T wave abnormalities inferior leads, PVCs (1) Chest pain Chest pain type: unspecified Qualified Code(s): R07.9 - Chest pain, unspecified
[2021-01-23] MEDS ORDERED: POTASSIUM CHLORIDE 40 MEQ in SODIUM CHLORIDE 0.9% 1000ML 1,000 ML IV ONE (23:44)
[2021-01-24] MEDS ORDERED: PANTOprazole 40 MG TAB PO STA (00:23)
[2021-01-24] MEDS ORDERED: ACETAMINOPHEN 325 MG TAB PO PRN (01:08)
[2021-01-24] MEDS ORDERED: NITROGLYCERIN SL 0.4 MG/TAB TAB SL PRN (01:08)
[2021-01-24] MEDS ORDERED: PROMETHAZINE HCL 12.5 MG in SODIUM CHLORIDE 0.9% 50 ML IV PRN (01:08)
[2021-01-24] MEDS ORDERED: traMADol HCL 50 MG TABLET PO PRN (01:08)
[2021-01-24] MEDS ORDERED: LORazepam 0.25 MG/0.5 ML VIAL IV PRN (01:08)
[2021-01-24] MEDS ORDERED: MoRPHine SULFATE 4 MG/ML 1 ML CARP\\VIAL IV PRN (01:08)
[2021-01-24] MEDS ORDERED: FEXOFENADINE HCL 180 MG TAB PO PRN (01:08)
[2021-01-24 05:34] LABS: Basophils # (auto) 0.08 K/uL (0-0.2); Basophils % (auto) 0.6 %; Eosinophils # (auto) 0.27 K/uL (0-0.5); Eosinophils % (auto) 1.9 %; Hematocrit (blood only) 38.7 % (37-47); Hemoglobin 12.7 g/dL (12.0-16.0); Immature Granulocytes # (auto) 0.07 K/uL (0.00-0.02); Immature Granulocytes % (auto) 0.5 %; Lymphocytes # (auto) 2.84 K/uL (1.2-3.4); Lymphocytes % (auto) 20.2 %; Mean Corpuscular Hemoglobin 32.4 pg (25-34); Mean Corpuscular Hgb Conc 32.8 g/dL (32-36); Mean Corpuscular Volume 98.7 fL (80-100); Mean Platelet Volume 9.8 fL (7.4-10.4); Monocytes # (auto) 1.96 K/uL (0.11-0.59); Neutrophils # (auto) 8.81 K/uL (1.4-6.5); Neutrophils % (auto) 62.8 %; Platelet Count 339 K/uL (130-400); RDW Coefficient of Variation 14.6 % (11.5-14.5); RDW Standard Deviation 52.4 fL (36.4-46.3); Red Blood Count 3.92 M/uL (4.2-5.4); White Blood Count 14.03 K/uL (4.8-10.8)
[2021-01-24 05:44] LABS: Partial Thromboplastin Ratio 0.9; Partial Thromboplastin Time 23.6 Seconds (21.0-31.0)
[2021-01-24 06:14] LABS: BUN Creatinine Ratio 29.5 (10-20); Calcium 8.6 mg/dl (8.5-10.1); Creatinine Clr Calc Pharmacy 62.8 ml/min; Est GFR (African American) 88.9 ml/min; Est GFR (Non-African American) 76.7 ml/min; Potassium 4.4 mmol/L (3.5-5.1)
[2021-01-24] MEDS ORDERED: LEVOTHYROXINE SODIUM 137 MCG TABLET PO SCH (06:30)
--- NOTE | 2021-01-24 07:13 | CT Scan Report ---
HEAD CT NONCONTRAST CT DOSE: 614.27 mGy.cm HISTORY: Headache. TECHNIQUE: Multiaxial CT images of the head were performed without the use of intravenous contrast. A utomated exposure control was utilized for this study. A dose lowering technique was utilized adheri ng to the principles of ALARA. Comparison: Head CT 05/15/2016. Findings: The paranasal sinuses and mastoid air cells are clear. The calvarium and skull base are int act. There is no mass, hematoma, midline shift, acute infarct. White matter hypodensity is nonspecifi c but suggestive of microvascular ischemic change. The ventricles and sulci demonstrate mild age-rela terry involutional changes. Old lacunar infarcts within the bilateral basal ganglia. Impression: No significant change compared to the prior study. No acute intracranial abnormality. ACT 112: Negative or not required by law. Electronically signed by: Jerome Segura M.D. 01/24/2021 7:12 AM
[2021-01-24] MEDS: dilTIAZem ER 180 MG CAPCR PO SCH ×2 (08:01→08:11)
[2021-01-24] MEDS: PANTOprazole 40 MG TAB PO SCH ×2 (08:02→08:12)
[2021-01-24] MEDS: ENOXAPARIN INJ 40 MG/0.4 ML SYR SQ SCH ×2 (08:02→08:11)
[2021-01-24] MEDS: allopurinoL 300 MG TAB PO SCH ×2 (08:02→08:11)
[2021-01-24] MEDS: LOSARTAN POTASSIUM 25 MG TAB PO SCH ×2 (08:02→08:12)
[2021-01-24] MEDS: ROSUVASTATIN CALCIUM 5 MG TAB PO SCH ×2 (08:02→08:12)
[2021-01-24] MEDS ORDERED: FLUTICASONE PROPIONATE NA SPR 16 GM BTL SCH (09:00)
--- NOTE | 2021-01-24 11:21 | Cardiology Consultation ---
Date of Consultation January 24, 2021 Assessment & Plan (1) Chest pain: (2) Tachy-chintan syndrome: (3) CAD in [place] artery: (4) History of non-ST elevation myocardial infarction (NSTEMI): (5) Dyslipidemia: Atypical, nitro responsive, chest pain. Initial EKG revealed sinus tachycardia 112 bpm with frequent premature ventricular complexes; no acute ST segment changes. EKG this morning reveals an atrial sensed ventricular paced rhythm. Troponin less than 0.015 ng/mL x 3. Resting echocardiography and pacemaker interrogation requested. If resting echocardiography is acceptable would recommend referral for Lexiscan nuclear stress testing. Agree with intensification of PPI therapy, referral for EKG if no significant improvement. Supervising Physician Co-Signing Physician Notes I have seen and examined the patient. I have reviewed the medical record and discussed the case with Mr. Orellana. If the patient's echocardiogram is unremarkable without wall motion abnormalities or other problems then I agree that the patient can be discharged and have a outpatient pharmacologic nuclear stress test. I will review the echocardiogram when it is available. History of Present Illness Reason for Consultation: Chest pain Requesting Physician: Vicki Attending Physician: Zheng History of Present Illness Ms. Rehana Moran is a very pleasant 75-year-old female who was admitted to [facility] on January 23, 2021. Cardiology consultation requested secondary to chest pain. Patient notes eating dinner last night around 5 or 5:30. Approximately 10 minutes after eating dinner (hicken leg, mashed potatoes with gravy, corn, and a abi joan) she developed horrible indigestion. She felt as though she needed to have a big burp. She notes walking around, trying to ease the discomfort without benefit. Thereafter, she felt some heart racing. She notes checking her blood pressure as well as heart rate and noting readings that were all over the place. She notes having chest tightness/burning in the chest. She initially presented to [facility] acute care and an ambulance was summoned. She notes receiving aspirin then nitroglycerin with definite improvement following administration of nitroglycerin. She notes that over the last few weeks she has been experiencing increased indigestion that is definitely diet related despite taking omeprazole and famotidine twice per day. She notes a history of hiatal hernia. She notes that the current present illness is unlike that associated with her prior myocardial infarction which included significant pain down the left arm. She notes riding the pedal bike 2 times per week with her family as well as working full-time for [employer] without significant difficulty. Patient notes significant stressors with her son, her job (eliminated), and the very recent loss of her dog. She also notably was recently taking a decongestant for sinus issues. No exertional chest pain. No new or worsening exertional dyspnea. No resting or nocturnal dyspnea. No lightheadedness or dizziness. No near syncope or syncope. No fevers or chills. No melena or hematochezia. Allergies Allergy/AdvReac Type Severity Reaction Status Date / Time imipenem Allergy Severe ANAPHYLAXIS Verified 01/23/21 21:07 Sulfa (Sulfonamide Allergy Severe hives,sob, Verified 01/23/21 21:07 Antibiotics) can take Dyazide daptomycin AdvReac Severe Anaphylaxis Unverified 01/23/21 21:07 colchicine AdvReac Intermediate diarrhea Verified 01/23/21 21:07 metoprolol AdvReac Mild fatigue Verified 01/23/21 22:57 zoledronic acid AdvReac Mild NAUSEA AND Verified 01/23/21 21:07 VOMITING Home Medications Medication Instructions Recorded Confirmed Type cholecalciferol (vitamin D3) 50 2,000 unit PO QAM 04/28/18 01/23/21 History mcg (2,000 unit) tablet (Vitamin D3) fexofenadine 180 mg tablet 180 mg PO DAILY PRN 04/28/18 01/23/21 History (Elke Allergy) omeprazole 20 mg tablet,delayed 20 mg PO BID 04/28/18 01/23/21 History release pumpkin seed extract-soy germ 300 1 cap PO QAM 04/28/18 01/23/21 History mg capsule (Azo Bladder Control) nitroglycerin 0.4 mg sublingual 0.4 mg SUBLINGUAL Q5M #25 tab 05/01/18 01/23/21 Rx tablet (Nitrostat) aspirin 81 mg tablet,delayed 81 mg PO HS #0 tab 05/16/18 01/23/21 Rx release fluticasone propionate 50 2 spray INTRANASAL QAM 06/03/18 01/23/21 History mcg/actuation nasal spray,suspension (Flonase Allergy Relief) dicyclomine 20 mg tablet 20 mg PO TID PRN 02/12/19 01/23/21 History lansoprazole 30 mg capsule,delayed 30 mg PO AMPM 04/04/19 01/23/21 History release (Prevacid) allopurinol 300 mg tablet 450 mg PO DAILY 01/23/21 01/23/21 History coenzyme Q10 100 mg capsule 100 mg PO DAILY 01/23/21 01/23/21 History (CoQ-10) diltiazem HCl 360 mg 360 mg PO DAILY 01/23/21 01/23/21 History tablet,extended release 24 hr levothyroxine 137 mcg tablet 137 mcg PO DAILYBB 01/23/21 01/23/21 History losartan 25 mg tablet 25 mg PO DAILY 01/23/21 01/23/21 History rosuvastatin 5 mg tablet 5 mg PO DAILY 01/23/21 01/23/21 History Patient History Medical History CAD (coronary artery disease) Dyslipidemia GERD (gastroesophageal reflux disease) History of DVT (deep vein thrombosis) History of non-ST elevation myocardial infarction (NSTEMI) History of pulmonary embolism Hypertension (Unknown) BP better today continue higher dose of metoprolol 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 Hypothyroidism Ischemic cardiomyopathy Non-ST elevated myocardial infarction (non-STEMI) Osteoporosis Retinal vein occlusion of right eye Rupture of left posterior tibialis tendon Vitamin B12 deficiency Surgical History History of cardiac cath S/P BSO (status post bilateral salpingo-oophorectomy) S/P IVC filter Status post hysterectomy Status post right knee replacement Family History Father Coronary heart disease Heart disease Mother Stroke Allergies Grandmother Asthma Grandfather Asthma Other Hypertension No family history of adverse response to anesthesia No family history of bleeding disorder Social History Smoking Status: Never smoker Second Hand Exposure: No; Do You Dip or Chew Tobacco: No; Tobacco Cessation Education Requested by Patient: No Hx Alcohol Use: No Hx Substance Use: No Preferred Language: Japanese Communication Ability: Effective Foam Charger Required: No Beliefs That Will Affect Care: None marital status: Current Living Situation: Family Current Living Situation Comment: Lives with daughter current occupational status: employed How many Children do You have: 1 Other Information That Helps Us Care for You: No Feels Safe at Home: Yes Assistive Devices: None Review of Systems Review of Systems: Followed by Dr. Radha Ortega. Primary Care Provider is Dr. Winchester. History of ASCVD status post April 2018 NSTEMI, status post PCI of the LAD with a drug-eluting stent, staged PCI of the RCA. History of post MN pericarditis refractory of NSAID's and intolerant to colchici ne. 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 Dyslipidemia Poor tolerance to simvastatin and atorvastatin. Hypertension Past poor tolerance to lisinopril and spironolactone as well as hydrochlorothiazide Hypothyroidism with recent adjustment in medications. Vertigo + CKD. + Skin cancer Diverticulosis Osteoarthritis, status post bilateral knee replacements. Osteoporosis Recently started Voltaren gel with improvement in knee pain. History of retinal vein occlusion History of DVT and PE No liver issues Complete Review of Systems is as stated above, negative, or noncontributory. Physical Exam Physical Exam: General: A&Ox3. NAD. HENT: Normocephalic. Atraumatic. Eyes: PER. Conjunctiva pink, sclera clear. Neck: No carotid bruits. No JVD. No HJR. Heart: RRR. No murmur. No rub. No gallop. PMI is nondisplaced. Lungs: Clear to auscultation. Abdomen: +BS. Soft. Nontender. No masses or organomegaly. Extremities: No clubbing, cyanosis, or edema. Limited neurological examination is without focal deficits. Pulses: radial=2/4, posterior tibial=2/4. Results & Data ([facility]) Vital Signs (Past 12 Hours) Vital Signs Temp Pulse Pulse Resp BP BP Pulse Ox 01/24/21 10:51 36.7 C 77 18 156/81 H 95 01/24/21 08:12 36.5 C 60 18 132/69 96 01/24/21 04:08 36.5 C 77 19 123/75 01/24/21 02:03 84 01/24/21 01:12 36.3 C L 89 17 143/81 H 94 01/24/21 01:08 01/23/21 23:30 81 18 142/78 H Pulse Ox 01/24/21 10:51 01/24/21 08:12 01/24/21 04:08 01/24/21 02:03 01/24/21 01:12 01/24/21 01:08 94 01/23/21 23:30 Laboratory Results Laboratory Results - last 24 hr 01/23/21 01/23/21 01/23/21 20:30 20:30 20:38 WBC 15.36 H RBC 4.10 L Hgb 13.2 Hct 40.5 MCV 98.8 MCH 32.2 MCHC 32.6 RDW Std Deviation 51.6 H RDW Coeff of Agnes 14.4 Plt Count 374 MPV 10.5 H Immature Gran % (Auto) 0.5 Neut % (Auto) 63.4 Lymph % (Auto) 23.0 [place] % (Auto) 12.1 Eos % (Auto) 0.5 Baso % (Auto) 0.5 Neut # (Auto) 9.74 H Lymph # (Auto) 3.53 H [place] # (Auto) 1.86 H Eos # (Auto) 0.07 Baso # (Auto) 0.08 Immature Gran # (Auto) 0.08 H APTT PTT Ratio Sodium 144 Potassium 3.3 L Chloride 111 H Carbon Dioxide 27 Anion Gap 7.0 BUN 28 H Creatinine 0.93 Est Cr Clr Drug Dosing 53.3 Est GFR ( Amer) 69.7 Est GFR (Non-Af Amer) 60.1 BUN/Creatinine Ratio 29.7 H Glucose 116 H Calcium 8.8 Magnesium 2.0 Total Bilirubin 0.2 AST < 3 L ALT 15 Alkaline Phosphatase 98 Troponin I < 0.015 Total Protein 6.3 L Albumin 3.3 L Globulin 3.0 Albumin/Globulin Ratio 1.1 Triglycerides Cholesterol LDL Cholesterol, Calc VLDL Cholesterol, Calc HDL Cholesterol Cholesterol/HDL Ratio Lipase 143 Procalcitonin < 0.05 TSH 0.795 COVID-19 Eval Order SARS-CoV-2 (PCR) 01/23/21 01/23/21 01/23/21 20:38 20:44 20:44 WBC RBC Hgb Hct MCV MCH MCHC RDW Std Deviation RDW Coeff of Agnes Plt Count MPV Immature Gran % (Auto) Neut % (Auto) Lymph % (Auto) [place] % (Auto) Eos % (Auto) Baso % (Auto) Neut # (Auto) Lymph # (Auto) [place] # (Auto) Eos # (Auto) Baso # (Auto) Immature Gran # (Auto) APTT 23.4 PTT Ratio 0.9 Sodium Potassium Chloride Carbon Dioxide Anion Gap BUN Creatinine Est Cr Clr Drug Dosing Est GFR ( Amer) Est GFR (Non-Af Amer) BUN/Creatinine Ratio Glucose Calcium Magnesium Total Bilirubin AST ALT Alkaline Phosphatase Troponin I Total Protein Albumin Globulin Albumin/Globulin Ratio Triglycerides Cholesterol LDL Cholesterol, Calc VLDL Cholesterol, Calc HDL Cholesterol Cholesterol/HDL Ratio Lipase Procalcitonin TSH COVID-19 Eval Order Covid19 at [facility] SARS-CoV-2 (PCR) NEGATIVE 01/23/21 01/24/21 01/24/21 23:46 05:24 05:24 WBC 14.03 H RBC 3.92 L Hgb 12.7 Hct 38.7 MCV 98.7 MCH 32.4 MCHC 32.8 RDW Std Deviation 52.4 H RDW Coeff of Agnes 14.6 H Plt Count 339 MPV 9.8 Immature Gran % (Auto) 0.5 Neut % (Auto) 62.8 Lymph % (Auto) 20.2 [place] % (Auto) 14.0 Eos % (Auto) 1.9 Baso % (Auto) 0.6 Neut # (Auto) 8.81 H Lymph # (Auto) 2.84 [place] # (Auto) 1.96 H Eos # (Auto) 0.27 Baso # (Auto) 0.08 Immature Gran # (Auto) 0.07 H APTT PTT Ratio Sodium 143 Potassium 4.4 D Chloride 114 H Carbon Dioxide 26 Anion Gap 3.0 BUN 23 H Creatinine 0.76 Est Cr Clr Drug Dosing 62.8 Est GFR ( Amer) 88.9 Est GFR (Non-Af Amer) 76.7 BUN/Creatinine Ratio 29.5 H Glucose 91 Calcium 8.6 Magnesium Total Bilirubin AST ALT Alkaline Phosphatase Troponin I < 0.015 Total Protein Albumin Globulin Albumin/Globulin Ratio Triglycerides 178 H Cholesterol 123 LDL Cholesterol, Calc 17 VLDL Cholesterol, Calc 36 HDL Cholesterol 70 Cholesterol/HDL Ratio 2 Lipase Procalcitonin TSH COVID-19 Eval Order SARS-CoV-2 (PCR) 01/24/21 01/24/21 05:24 05:24 WBC RBC Hgb Hct MCV MCH MCHC RDW Std Deviation RDW Coeff of Agnes Plt Count MPV Immature Gran % (Auto) Neut % (Auto) Lymph % (Auto) [place] % (Auto) Eos % (Auto) Baso % (Auto) Neut # (Auto) Lymph # (Auto) [place] # (Auto) Eos # (Auto) Baso # (Auto) Immature Gran # (Auto) APTT 23.6 PTT Ratio 0.9 Sodium Potassium Chloride Carbon Dioxide Anion Gap BUN Creatinine Est Cr Clr Drug Dosing Est GFR ( Amer) Est GFR (Non-Af Amer) BUN/Creatinine Ratio Glucose Calcium Magnesium Total Bilirubin AST ALT Alkaline Phosphatase Troponin I < 0.015 Total Protein Albumin Globulin Albumin/Globulin Ratio Triglycerides Cholesterol LDL Cholesterol, Calc VLDL Cholesterol, Calc HDL Cholesterol Cholesterol/HDL Ratio Lipase Procalcitonin TSH COVID-19 Eval Order SARS-CoV-2 (PCR) (1) Chest pain Chest pain type: unspecified Qualified Code(s): R07.9 - Chest pain, unspecified
--- NOTE | 2021-01-24 19:59 | Discharge Summary ---
Date of Service January 24, 2021 Admission HPI Per Admitting Provider History obtained from patient and records. Medical history significant for CAD status post stent, SSS sp PPM, history of pericarditis, hypertension, hyperlipidemia, hx PE/DVT status post anticoagulation status post IVC filter placement, GERD, hypothyroidism, prediabetes. Last confinement October 2018 for dyspnea on exertion attributed to hypertension, diastolic dysfunction. Patient noted substernal tightness described as burning after a dinner heavier than usual. No shortness of breath, no cough symptoms. Unlike any other chest pain episode in the past. SBP noted to be high at home 180s as per patient. Unusual for her. Admits to personal stressors along with recent chlorpheniramine intake for sinus congestion symptoms which has since resolved. Diarrhea without abdominal pain as per patient.. Persistent chest tightness symptoms until patient received aspirin and nitroglycerin at the ER. MEDICAL HISTORY: As above. SURGERIES: She has had knee surgery, bladder surgery, eye surgery, IVC filter placement, total abdominal hysterectomy, bilateral salpingo-oophorectomy, tonsillectomy FAMILY HISTORY : Asthma, heart disease, stroke PERSONAL AND SOCIAL HISTORY: Nonsmoker, no chronic intake of alcoholic beverages. [employer] employee. Admission Exam Per Admitting Provider GENERAL: Comfortable, pleasant, obese, no respiratory distress SKIN: Normal color, warm HEENT: [place] palpebral conjunctivae, no ptosis, dry buccal mucosa NECK : Supple, no tenderness CHEST : CTA, no tenderness HEART : Tachycardic, no obvious murmurs ABDOMEN: Some distention, nontender EXTREMITIES : No LE swelling/tenderness, no other conspicuous deformities noted NEUROLOGIC : Coherent, no facial asymmetry, no other gross focality Principal Diagnosis Atypical chest pain rule out ACS. Possible GERD attack. Discharge Exam GENERAL: Alert and oriented x3. NAD, on RA. HEENT: No pallor, no icterus. Pupils equal, round and reactive to light. Oral mucosa moist. NECK: No JVD, no neck masses. HEART: S1 and S2 heard. Regular rate and rhythm. No murmur, no gallop. RESPIRATORY SYSTEM: Normal AP diameter. No accessory muscle use. No wheezing, no crackles. ABDOMEN: Soft, bowel sounds present, epigastric discomfort on deep palpation, no distention. CENTRAL NERVOUS SYSTEM: Alert and oriented x3. No facial droop. Speech is clear. Obeys simple commands. Moves extremities. EXTREMITIES: trace edema, no erythema seen. Discharge Data Allergies Allergy/AdvReac Type Severity Reaction Status Date / Time imipenem Allergy Severe ANAPHYLAXIS Verified 01/23/21 21:07 Sulfa (Sulfonamide Allergy Severe hives,sob, Verified 01/23/21 21:07 Antibiotics) can take Dyazide daptomycin AdvReac Severe Anaphylaxis Unverified 01/23/21 21:07 colchicine AdvReac Intermediate diarrhea Verified 01/23/21 21:07 metoprolol AdvReac Mild fatigue Verified 01/23/21 22:57 zoledronic acid AdvReac Mild NAUSEA AND Verified 01/23/21 21:07 VOMITING Consultations 01/23/21 21:36 ED Decision to Admit Stat 01/24/21 01:08 Consult Cardiology Routine Ordered Studies 01/23/21 21:58 CT head/brain wo con Urgent Hospital Course (1) Chest pain: 75-year-old lady with past medical history of CAD status post stent, SSS status post PPM, pericarditis, HTN, HLD, PE/DVT status post anticoagulation status post IVC filter placement, GERD, hypothyroidism and prediabetes presented to our ED 01/23 with complaint of atypical chest pain. Patient noted substernal tightness described as burning after dinner on 01/23 not associated with any cough or shortness of breath and was unlike any other chest pain episode in the past. Patient noted her blood pressure to be high in 180s for some time before coming to emergency. High blood pressure [employer] could have been likely secondary to ongoing personal stressor currently on top of chlorpheniramine intake for sinus congestion. Patient reports improvement in her chest pain with nitroglyce rin and also with increased dose of PPI. Patient's troponin x3 was negative along with admitting EKG not showing any acute ST or T changes. Cardiology evaluated the patient while inpatient, resting echo was WNL. Cardiology okay with discharging with recommendation for outpatient Lexiscan nuclear stress testing. Also likely this could be GERD attack. Her PPI therapy has been upped and patient advised to follow-up with her GI doctor. Patient has not gotten her GERD evaluated by GI doctor since last 15 years per patient. Following instructions were communicated to the patient at the time of discharge: Follow-up with your primary care physician within a week time Your GERD medication has been upped, take medications as prescribed. Establish and follow-up with your GI doctor for evaluation of your chronic GERD not being controlled with current PPI therapy. Follow-up with cardiology for outpatient Lexiscan nuclear stress testing. Due to history of GERD, recommended to take small meals at a time, space out meal away from bedtime. Total Time Total Time Spent Total Time Spent (In Minutes): 40 Discharge Plan Discharge Items Patient Disposition: Home - Self-Care Reason For Visit: CHEST PAIN Discharge Diagnosis: Atypical chest pain rule out ACS. Possible GERD attack. Activity: Resume your previous activity Non-emergency contact: Primary Care Provider Call non-emergency contact if: you have any medication questions, your symptoms worsen and your pain is worsening Follow-up/Referrals: Irene Winchester DO [Primary Care Provider] - (Date & Time 01/27/2021 11:50 AM Provider Irene Winchester DO Department Family Medicine [facility] ) Diet: Heart Healthy Addtl Attending Provider Instructions: Follow-up with your primary care physician within a week time Your GERD medication has been upped, take medications as prescribed. Establish and follow-up with your GI doctor for evaluation of your chronic GERD not being controlled with current PPI therapy. Follow-up with cardiology for outpatient Lexiscan nuclear stress testing. Due to history of GERD, recommended to take small meals at a time, space out meal away from bedtime. Pending Studies at Discharge: No Stand-Alone Forms: My [facility] [place], Smoking Cessation Medications and DC Order Prescriptions: New pantoprazole 40 mg Tablet,Delayed Release (Dr/Ec) 40 mg PO BID Qty: 60 RF: 0 famotidine [Pepcid] 20 mg tablet 20 mg PO BID 42 Days Qty: 84 RF: 0 Continued fexofenadine [[place] Allergy] 180 mg Tablet 180 mg PO DAILY PRN (Reason: Allergy Symptoms) RF: 0 cholecalciferol (vitamin D3) [Vitamin D3] 2,000 unit Tablet 2,000 unit PO QAM RF: 0 Azo Bladder Control 300 mg Capsule 1 cap PO QAM RF: 0 nitroglycerin [Nitrostat] 0.4 mg tablet, sublingual 0.4 mg Sublingual Q5M Qty: 25 RF: 3 fluticasone propionate [Flonase Allergy Relief] 50 mcg/actuation [place],Suspension 2 spray INTRANASAL QAM RF: 0 aspirin 81 mg Tablet,Delayed Release (Dr/Ec) 81 mg PO HS Qty: 0 RF: 0 dicyclomine 20 mg Tablet 20 mg PO TID PRN (Reason: IBS) RF: 0 levothyroxine 137 mcg tablet 137 mcg PO DAILYBB RF: 0 losartan 25 mg tablet 25 mg PO DAILY RF: 0 diltiazem HCl 360 mg tablet extended release 24 hr 360 mg PO DAILY RF: 0 rosuvastatin 5 mg tablet 5 mg PO DAILY RF: 0 coenzyme Q10 [CoQ-10] 100 mg Capsule 100 mg PO DAILY RF: 0 allopurinol 300 mg tablet 450 mg PO DAILY RF: 0 Discontinued omeprazole 20 mg Tablet,Delayed Release (Dr/Ec) 20 mg PO BID RF: 0 lansoprazole [Prevacid] 30 mg Capsule,Delayed Release(Dr/Ec) 30 mg PO AMPM RF: 0 Discharge Orders: Discharge Order (Routine); Ordered 01/24/21 Ordered By: Samra Calzada Admission Data Admit Date/Time: 01/23/21 23:39 Attending Provider: Samra Calzada Admit Provider: Adalberto Cohen Primary Care Provider: Irene Winchester Other Providers: Adalberto Cohen ; Celestino Montano ; Jef Rocha ; Diego Rivera ; Charles Ortega ; Stevie Miranda ; Mykel Orellana ; Nikole Aguilar ; Lori Parekh ; Shira Rosales ; Alfonso Borden Other Interventions: Discharge Summary Assessment (RN) Last Done: 01/24/21 18:38
[2021-01-24] MEDS ORDERED: ASPIRIN 81 MG ECTAB PO SCH (21:00)
--- NOTE | 2021-01-25 04:53 | Electrocardiogram Report ---
Test Reason : Blood Pressure : / mmHG Vent. Rate : 112 BPM Atrial Rate : 112 BPM P-R Int : 174 ms QRS Dur : 080 ms QT Int : 352 ms P-R-T Axes : 050 015 030 degrees QTc Int : 480 ms Poor data quality, interpretation may be adversely affected Sinus tachycardia with frequent Premature ventricular complexes Otherwise normal ECG When compared with ECG of 18-AUG-2019 10:30, Premature ventricular complexes are now Present Nonspecific T wave abnormality no longer evident in Anterior leads Confirmed by vAi Rocha ([id number]) on 01/25/2021 4:53:31 AM Referred By: REFERRED SELF Confirmed By:Avi Rocha
--- NOTE | 2021-01-25 05:06 | Electrocardiogram Report ---
Test Reason : Blood Pressure : / mmHG Vent. Rate : 073 BPM Atrial Rate : 073 BPM P-R Int : 208 ms QRS Dur : 114 ms QT Int : 450 ms P-R-T Axes : 052 -16 051 degrees QTc Int : 495 ms Atrial-sensed ventricular-paced rhythm Abnormal ECG When compared with ECG of 23-JAN-2021 20:37, Ventricular pacing is now present Vent. rate has decreased BY 39 BPM Confirmed by Avi Rocha ([id number]) on 01/25/2021 5:05:47 AM Referred By: REFERRED SELF Confirmed By:Avi Rocha
== END 2021-01-24 19:26 | disposition home or self-care (01) ==
LOC: ED 20:29 → 2S 20:29 → SUATTDRO 23:39 → 2S 01-24 00:42

== ENCOUNTER 2022-08-18 08:20 | Inpatient (IN) ==
--- NOTE | 2022-08-18 08:27 | Emergency Department Note ---
Impression & Plan Nausea & vomiting, Acute dehydration, Diarrhea, Hypomagnesemia, Hypoxia ED Provider Note NAME: JENSEN MARTINEZ AGE: 77 SEX: F : 1945 ARRIVES VIA: Ambulance INFORMANT: Patient, ED PROVIDER(S): Leon Chaney MD CHIEF COMPLAINT: Nausea vomiting diarrhea MEDICAL DECISION MAKING: Patient presents for nausea vomiting diarrhea in the last 24 hours. IV was established blood work was obtained. The patient was ordered IV fluids and IV Pepcid. The patient already did receive IV Zofran in route. The patient was noted to be mildly hypoxemic and was placed on supplemental nasal cannula. No history of smoking. The patient does admit to feeling a little bit short of breath. The patient does not take blood thinners but does have an IVC filter in place. The patient's blood work shows a normal white counts with a normal hemoglobin and platelet count. The patient's kidney function does show prerenal azotemia likely significant for GI losses. Bio fire is negative. Chest x-ray was obtained and given the patient's hypoxia. Chest x-ray shows the trace left pleural effusion but no evidence of pulmonary edema. Given the patient's feeling unwell as well as hypomagnesemia and hypocalcemia dehydration I did speak the on-call hospitalist service Amadeo Hsu PA-C and the patient was admitted by Dr. Braun. Critical Care: I have personally spent 36 minutes of critical care time in direct management of this patient. This includes bedside care, interpretation of diagnostic studies, and testing, discussion with consultants, patient, and family members, and other require inpatient management activities. This 36 minutes is in excess of all separately billable procedures. Prior /Outside records reviewed: none Differential diagnosis: Gastroenteritis, food borne illness, infections, appendicitis, diverticulitis, inflammatory bowel disease, obstruction, GI bleed, biliary pathology, volvulus, as well as other pathologies. Diagnostics, as interpreted by me: ECG: Sinus tachycardia, rate of 115 normal SC and QRS, normal axis no ST elevations. Cardiac monitoring: An order was placed for continuous cardiac monitoring. The monitor shows a rate of 102 with tachycardic and regular rhythm. Patient was placed on pulse oximetry Medical decision rules: none Imaging studies: See below HPI: Patient presents due to concern for nausea vomiting diarrhea. The patient states that around 10 AM yesterday morning he started started to feel unwell and then developed some vomiting and diarrhea. The patient states that every time she vomits she has an episode of diarrhea. No blood in the vomit or stool. Patient states that this initially occurred while at work. 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 Patient denies any falls or trauma. The patient does complain of generalized abdominal discomfort but no pain. Patient denies any known sick contacts or recent travel no changes in diet. Patient denies any untreated stream or well water use and no recent antibiotics. The patient states that she tried to take Imodium as well as Pepto-Bismol but this did not improve her symptoms. The patient is not been able to eat or drink anything for more or less the last 24 hours and has not taken her medications in the last 12 to 24 hours. PAST MEDICAL HISTORY: See Below PAST SURGICAL HISTORY: See Below SOCIAL HISTORY: See Below HOME MEDICATIONS: See Below ALLERGIES: See Below VITALS: See Below PHYSICAL EXAMINATION: GENERAL: NAD, wearing a mask, non-toxic. EYE EXAM: Normal conjunctiva. PERRL, no anisocoria and EOM's grossly intact w/o pain. NECK: Supple, no nuchal rigidity, no adenopathy, non-tender. No signs of meningismus. FROM of the neck with good chin to chest and neck extension. No stridor. LUNGS: Clear to auscultation. Normal chest wall mechanics. HEART: Tachycardic and regular, no MRG. ABDOMEN: Abdomen soft, mild diffuse discomfort without significant pain or loca lizing tenderness, no masses, no rebound or guarding. BACK: No CVA TTP. SKIN: No rashes and no bruising. UPPER EXTREMITIES: Upper extremities are grossly normal. LOWER EXTREMITIES: Grossly normal, no edema. NEURO EXAM: A&O x3, cranial nerves II-XII grossly intact, normal speech, moves all 4 extremities. Past Med/Surg History Medical History (Updated 08/19/22 @ 07:07 by Leon Chaney MD) CAD (coronary artery disease) Dyslipidemia GERD (gastroesophageal reflux disease) History of DVT (deep vein thrombosis) History of non-ST elevation myocardial infarction (NSTEMI) History of pulmonary embolism Hypertension (Unknown) BP better today continue higher dose of metoprolol 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 Hypothyroidism Ischemic cardiomyopathy Non-ST elevated myocardial infarction (non-STEMI) Osteoporosis Retinal vein occlusion of right eye Rupture of left posterior tibialis tendon Vitamin B12 deficiency Surgical History (Updated 08/18/22 @ 13:17 by Sarah Hsu PA-C) History of cardiac cath S/P BSO (status post bilateral salpingo-oophorectomy) S/P IVC filter Status post biventricular pacemaker Status post hysterectomy Status post right knee replacement Family History Father Coronary heart disease Heart disease Mother Stroke Allergies Grandmother Asthma Grandfather Asthma Other Hypertension No family history of adverse response to anesthesia No family history of bleeding disorder Social History Smoking Status: Never smoker Second Hand Exposure: No; Do You Dip or Chew Tobacco: No; Hx Alcohol Use: No Hx Substance Use: No Preferred Language: [place]ese Communication Ability: Effective 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: No Beliefs That Will Affect Care: None marital status: Current Living Situation: Family Current Living Situation Comment: Lives with daughter current occupational status: employed How many Children do You have: 1 Other Information That Helps Us Care for You: No Feels Safe at Home: Yes Safety Concerns: Feels Safe At This Time Assistive Devices: None Allergies Allergies Allergy/AdvReac Type Severity Reaction Status Date / Time imipenem Allergy Severe ANAPHYLAXIS Verified 08/18/22 09:12 Sulfa (Sulfonamide Allergy Severe hives,sob, Verified 08/18/22 09:12 Antibiotics) can take Dyazide daptomycin AdvReac Severe Anaphylaxis Unverified 08/18/22 09:12 colchicine AdvReac Intermediate diarrhea Verified 08/18/22 09:12 metoprolol AdvReac Mild fatigue Verified 08/18/22 09:12 zoledronic acid AdvReac Mild NAUSEA AND Verified 08/18/22 09:12 VOMITING Home Meds Home Medications Medication Instructions Recorded Confirmed cholecalciferol (vitamin D3) 50 2,000 unit PO QAM 04/28/18 08/18/22 mcg (2,000 unit) tablet (Vitamin D3) fexofenadine 180 mg tablet 180 mg PO DAILY PRN Allergy 04/28/18 08/18/22 (Elke Allergy) Symptoms pumpkin seed extract-soy germ 300 1 cap PO QAM 04/28/18 08/18/22 mg capsule (Azo Bladder Control) fluticasone propionate 50 2 spray intranasal QAM 06/03/18 08/18/22 mcg/actuation nasal spray,suspension (Flonase Allergy Relief) dicyclomine 20 mg tablet 20 mg PO TID PRN IBS 02/12/19 08/18/22 allopurinol 300 mg tablet 150 mg PO QAM 01/23/21 08/18/22 coenzyme Q10 100 mg capsule 100 mg PO DAILY 01/23/21 08/18/22 (CoQ-10) diltiazem HCl 360 mg 360 mg PO QPM 01/23/21 08/18/22 tablet,extended release 24 hr levothyroxine 137 mcg tablet 137 mcg PO DAILYBB 01/23/21 08/18/22 rosuvastatin 5 mg tablet 5 mg PO DAILY 01/23/21 08/18/22 allopurinol 300 mg tablet 300 mg PO QPM 08/18/22 08/18/22 atenolol 25 mg tablet 12.5 mg PO DAILY 08/18/22 08/18/22 cholecalciferol (vitamin D3) 25 25 mcg PO DAILY 08/18/22 08/18/22 mcg (1,000 unit) tablet famotidine 20 mg tablet 20 mg PO DAILY 08/18/22 08/18/22 loperamide 2 mg tablet 2 mg PO QID PRN Diarrhea 08/18/22 08/18/22 Previous Rx's Medication Instructions Recorded nitroglycerin 0.4 mg sublingual 0.4 mg sublingual Q5M chest pain 05/01/18 tablet (Nitrostat) #25 tabs aspirin 81 mg tablet,delayed 81 mg PO HS #0 tabs 05/16/18 release pantoprazole 40 mg tablet,delayed 40 mg PO BID #60 tabs 01/24/21 release Results & Data (ED) Vital Signs Vital Signs - 24 hr 08/18/22 08:25 08/18/22 08:32 08/18/22 08:45 Pulse Rate 115 H 114 H Pulse Rate [Apical] Respiratory Rate 18 Respiratory Effort / Characteristics Non-Labored Spontaneous Respiratory Depth Normal Blood Pressure 113/79 Blood Pressure [Right Arm] Blood Pressure Mean 90 Blood Pressure Mean [Right Arm] Pulse Oximetry 93 90 Oxygen Delivery Method Room Air Room Air Oxygen Flow Rate Sepsis Recent Fever Within 48 Hours No Sepsis New/Unexplained Change in Mental Status No Sepsis Action Taken by Nursing No Action Required 08/18/22 09:03 08/18/22 09:04 08/18/22 10:32 Pulse Rate Pulse Rate [Apical] 101 H 103 H Respiratory Rate 18 18 Respiratory Effort / Characteristics Non-Labored Spontaneous Respiratory Depth Normal Blood Pressure Blood Pressure [Right Arm] 131/84 146/89 H Blood Pressure Mean Blood Pressure Mean [Right Arm] 99 108 Pulse Oximetry 88 L 95 95 Oxygen Delivery Method Room Air Nasal Cannula Nasal Cannula Oxygen Flow Rate 2 2 Sepsis Recent Fever Within 48 Hours Sepsis New/Unexplained Change in Mental Status Sepsis Action Taken by Nursing 08/18/22 12:01 Pulse Rate Pulse Rate [Apical] 112 H Respiratory Rate 16 Respiratory Effort / Characteristics Non-Labored Respiratory Depth Normal Blood Pressure Blood Pressure [Right Arm] 145/86 H Blood Pressure Mean Blood Pressure Mean [Right Arm] 105 Pulse Oximetry 97 Oxygen Delivery Method Nasal Cannula Oxygen Flow Rate 2 Sepsis Recent Fever Within 48 Hours Sepsis New/Unexplained Change in Mental Status Sepsis Action Taken by Longterm Medications Current Medication List: was personally reviewed by me Laboratory Data Attestation: I reviewed the patient's lab results. 08/18/22 08:38 08/18/22 08:38 Lab Results 08/18/22 08/18/22 08/18/22 Range/Units 08:38 08:38 09:07 WBC 5.31 (4.8-10.8) K/ul RBC 4.45 (4.20-5.40) M/uL Hgb 14.6 (12.0-16.0) g/dl Hct 44.5 (37.0-47.0) % MCV 100.0 (80.0-100.0) fL MCH 32.8 (25.0-34.0) pg MCHC 32.8 (32.0-36.0) g/dL RDW Std Deviation 53.8 H (36.4-46.3) fL RDW Coeff of Agnes 14.6 H (11.5-14.5) % Plt Count 237 (130-400) K/uL MPV 10.8 (9.4-12.4) fL Immature Gran % (Auto) 0.2 % Neut % (Auto) 73.9 % Lymph % (Auto) 14.3 % [place] % (Auto) 10.4 % Eos % (Auto) 0.4 % Baso % (Auto) 0.8 % Neut # (Auto) 3.93 (1.40-6.50) K/uL Lymph # (Auto) 0.76 L (1.2-3.4) K/uL [place] # (Auto) 0.55 (0.11-0.59) K/uL Eos # (Auto) 0.02 (0-0.50) K/uL Baso # (Auto) 0.04 (0-0.2) K/uL Immature Gran # (Auto) 0.01 (0.01-0.20) K/uL Sodium TNP Potassium TNP Chloride 112 H (98-107) mmol/L Carbon Dioxide 22 (21-32) mmol/L Anion Gap TNP BUN 23 (6-23) mg/dl Creatinine 0.95 (0.6-1.2) mg/dl Est Cr Clr Drug Dosing 46.7 ml/min Est GFR ( Amer) 67.0 ml/min Est GFR (Non-Af Amer) 57.8 ml/min BUN/Creatinine Ratio 24.2 H (10-20) Glucose 103 H (70-99(Fasting)) mg/dl Calcium 8.3 L (8.6-10.3) mg/dl Magnesium TNP Total Bilirubin 0.4 (0.2-1.0) mg/dl AST TNP ALT 12 (7-52) U/L Alkaline Phosphatase TNP Total Protein 6.0 (6.0-8.3) gm/dl Albumin TNP Globulin TNP Albumin/Globulin Ratio TNP Lipase 7 L (11-82) U/L Urine Color Urine Appearance (Clear) Urine pH (4.5-7.5) Ur Specific [place] (1.000-1.030) Urine Protein (Negative) Urine Glucose (UA) (Negative) Urine Ketones (Negative) Urine Blood (Negative) Urine Nitrite (Negative) Urine Bilirubin (Negative) Urine Urobilinogen (Negative) Ur Leukocyte Esterase (Negative) Urine WBC (Auto) (0-5) /hpf Urine RBC (Auto) (0-4) /hpf U Hyaline Cast (Auto) (0-5) /lpf U Epithel Cells (Auto) (0-5) /lpf Urine Bacteria (Auto) (Negative) Urine Mucus (None Prsent) Adenovirus (PCR) Not Detected (NotDetected) B. pertussis DNA (PCR) Not Detected (NotDetected) B.parapertussis DNA PCR Not Detected (NotDetected) C. pneumoniae DNA (PCR) Not Detected (NotDetected) Coronavirus OC43 (PCR) Not Detected (NotDetected) Coronavirus HKU1 (PCR) Not Detected (NotDetected) Coronavirus 229E (PCR) Not Detected (NotDetected) SARS-CoV-2 (PCR) Not Detected (NotDetected) Coronavirus NL63 (PCR) Not Detected (NotDetected) Human Metapneumovir PCR Not Detected (NotDetected) Influenza Type A (PCR) Not Detected (NotDetected) Influenza Type B (PCR) Not Detected (NotDetected) M. pneumoniae (PCR) Not Detected (NotDetected) Parainfluenza 1 (PCR) Not Detected (NotDetected) Parainfluenza 2 (PCR) Not Detected (NotDetected) Parainfluenza 3 (PCR) Not Detected (NotDetected) Parainfluenza 4 (PCR) Not Detected (NotDetected) RSV (PCR) Not Detected (NotDetected) Entero/Rhino (PCR) Not Detected (NotDetected) 08/18/22 08/18/22 Range/Units 09:50 11:35 WBC (4.8-10.8) K/ul RBC (4.20-5.40) M/uL Hgb (12.0-16.0) g/dl Hct (37.0-47.0) % MCV (80.0-100.0) fL MCH (25.0-34.0) pg MCHC (32.0-36.0) g/dL RDW Std Deviation (36.4-46.3) fL RDW Coeff of Agnes (11.5-14.5) % Plt Count (130-400) K/uL MPV (9.4-12.4) fL Immature Gran % (Auto) % Neut % (Auto) % Lymph % (Auto) % [place] % (Auto) % Eos % (Auto) % Baso % (Auto) % Neut # (Auto) (1.40-6.50) K/uL Lymph # (Auto) (1.2-3.4) K/uL [place] # (Auto) (0.11-0.59) K/uL Eos # (Auto) (0-0.50) K/uL Baso # (Auto) (0-0.2) K/uL Immature Gran # (Auto) (0.01-0.20) K/uL Sodium 142 Potassium 4.0 Chloride (98-107) mmol/L Carbon Dioxide (21-32) mmol/L Anion Gap BUN (6-23) mg/dl Creatinine (0.6-1.2) mg/dl Est Cr Clr Drug Dosing ml/min Est GFR ( Amer) ml/min Est GFR (Non-Af Amer) ml/min BUN/Creatinine Ratio (10-20) Glucose (70-99(Fasting)) mg/dl Calcium (8.6-10.3) mg/dl Magnesium 1.5 L Total Bilirubin (0.2-1.0) mg/dl AST 8 L ALT (7-52) U/L Alkaline Phosphatase 70 Total Protein (6.0-8.3) gm/dl Albumin 3.3 L Globulin Albumin/Globulin Ratio Lipase (11-82) U/L Urine Color Dark Yellow Urine Appearance Cloudy A (Clear) Urine pH 5.5 (4.5-7.5) Ur Specific [place] 1.026 (1.000-1.030) Urine Protein 1+ H (Negative) Urine Glucose (UA) Negative (Negative) Urine Ketones Negative (Negative) Urine Blood Negative (Negative) Urine Nitrite Negative (Negative) Urine Bilirubin Negative (Negative) Urine Urobilinogen Negative (Negative) Ur Leukocyte Esterase Negative (Negative) Urine WBC (Auto) 1-5 (0-5) /hpf Urine RBC (Auto) 5-10 H (0-4) /hpf U Hyaline Cast (Auto) 1-5 (0-5) /lpf U Epithel Cells (Auto) >30 H (0-5) /lpf Urine Bacteria (Auto) 1+ H (Negative) Urine Mucus Present A (None Prsent) Adenovirus (PCR) (NotDetected) B. pertussis DNA (PCR) (NotDetected) B.parapertussis DNA PCR (NotDetected) C. pneumoniae DNA (PCR) (NotDetected) Coronavirus OC43 (PCR) (NotDetected) Coronavirus HKU1 (PCR) (NotDetected) Coronavirus 229E (PCR) (NotDetected) SARS-CoV-2 (PCR) (NotDetected) Coronavirus NL63 (PCR) (NotDetected) Human Metapneumovir PCR (NotDetected) Influenza Type A (PCR) (NotDetected) Influenza Type B (PCR) (NotDetected) M. pneumoniae (PCR) (NotDetected) Parainfluenza 1 (PCR) (NotDetected) Parainfluenza 2 (PCR) (NotDetected) Parainfluenza 3 (PCR) (NotDetected) Parainfluenza 4 (PCR) (NotDetected) RSV (PCR) (NotDetected) Entero/Rhino (PCR) (NotDetected) Administered Medications Acetaminophen (Acetaminophen 325 Mg Tab) 650 mg PO Q4H PRN PRN Reason: Moderate Pain (Scale 4, 5, 6) Stop: 09/17/22 13:01 Last Admin: 08/19/22 06:19 Dose: 650 mg Documented By: Admin: 08/18/22 22:43 Dose: 650 mg Documented By: PHILLIP Aspirin (Aspirin 81 Mg Ectab) 81 mg PO HS [facility] Stop: 09/17/22 20:59 Last Admin: 08/18/22 23:07 Dose: 81 mg Documented By: SRI Diltiazem HCl (Diltiazem Hcl 180 Mg Capcr) 360 mg PO QPM NANY Stop: 09/17/22 20:59 Last Admin: 08/18/22 23:07 Dose: 360 mg Documented By: SRI Heparin Sodium (Porcine) (Heparin Sod 5,000 Unit/0.5 Ml Vial) 5,000 units SQ Q12 NANY Stop: 09/17/22 20:59 Last Admin: 08/18/22 23:07 Dose: 5,000 units Documented By: SRI Sodium Chloride (Nss 1000ml) 1,000 mls @ 125 mls/hr IV .Q8H NANY Stop: 09/17/22 13:01 Last Admin: 08/19/22 06:11 Dose: 125 mls/hr Documented By: Infusion: 08/19/22 06:11 Dose: 125 mls/hr Documented By: Admin: 08/18/22 23:08 Dose: 125 mls/hr Documented By: Infusion: 08/18/22 22:09 Dose: 125 mls/hr Documented By: Admin: 08/18/22 14:09 Dose: 125 mls/hr Documented By: AMBERLY Piperacillin Sod/Tazobactam (Sod 4.5 gm/ Dextrose) 120 mls @ 30 mls/hr IV Q8H NANY; Protocol Stop: 08/28/22 20:59 Last Infusion: 08/19/22 05:30 Dose: 0 mls/hr Documented By: Admin: 08/19/22 00:58 Dose: 30 mls/hr Documented By: PHILLIP Levothyroxine Sodium (Levothyroxine Sodium 137 Mcg Tablet) 137 mcg PO DAILYBB [facility] Stop: 09/18/22 06:29 Last Admin: 08/19/22 06:11 Dose: 137 mcg Documented By: PHILLIP Ondansetron HCl (Ondansetron Inj 2 Mg/Ml 2 Ml Vial) 4 mg IV Q4H PRN PRN Reason: Nausea And Vomiting Stop: 09/17/22 13:01 Last Admin: 08/19/22 06:14 Dose: 4 mg Documented By: Admin: 08/19/22 00:52 Dose: 4 mg Documented By: PHILLIP Pantoprazole Sodium (Pantoprazole 40 Mg Tab) 40 mg PO BID NANY Stop: 09/17/22 20:59 Last Admin: 08/18/22 23:07 Dose: 40 mg Documented By: SRI Discontinued Medications Atenolol (Atenolol 25 Mg Tablet) 12.5 mg PO NOW STA Stop: 08/18/22 13:18 Last Admin: 08/18/22 14:05 Dose: 12.5 mg Documented By: AMBERLY Diltiazem HCl (Diltiazem Hcl 60 Mg Tab) 180 mg PO ONE ONE Stop: 08/18/22 14:01 Last Admin: 08/18/22 14:05 Dose: 180 mg Documented By: AMBERLY Sodium Chloride (Nss 1000ml) 1,000 mls @ 999 mls/hr IV .Q1H1M STA Stop: 08/18/22 09:44 Last Infusion: 08/18/22 10:05 Dose: 0 mls/hr Documented By: Admin: 08/18/22 09:01 Dose: 999 mls/hr Documented By: AMBERLY Famotidine (Pepcid 20mg Iv Push) 20 mg in 5 mls @ 2.5 mls/min IV NOW STA Stop: 08/18/22 09:10 Last Admin: 08/18/22 09:26 Dose: 2.5 mls/min Documented By: AMBERLY Calcium Gluconate () 1,000 mg in 60 mls @ 240 mls/hr IV NOW STA Stop: 08/18/22 10:19 Last Infusion: 08/18/22 10:48 Dose: 0 mls/hr Documented By: Admin: 08/18/22 10:32 Dose: 240 mls/hr Documented By: AMBERLY Magnesium Sulfate/Dextrose (Magnesium Sulfate / D5w) 1 gm in 100 mls @ 100 mls/hr IV NOW STA Stop: 08/18/22 12:21 Last Infusion: 08/18/22 12:46 Dose: 0 mls/hr Documented By: Admin: 08/18/22 11:34 Dose: 100 mls/hr Documented By: AMBERLY Sodium Chloride (Nss 1000ml) 500 mls @ 999 mls/hr IV .Q31M ONE Stop: 08/18/22 12:46 Last Infusion: 08/18/22 13:06 Dose: 0 mls/hr Documented By: Admin: 08/18/22 12:31 Dose: 999 mls/hr Documented By: AMBERLY Piperacillin Sod/Tazobactam (Sod 4.5 gm/ Dextrose) 120 mls @ 240 mls/hr IV NOW ONE; Protocol Stop: 08/18/22 20:14 Last Infusion: 08/18/22 23:08 Dose: 0 mls/hr Documented By: Admin: 08/18/22 20:04 Dose: 240 mls/hr Documented By: PHILLIP Ioversol (Optiray 320 100ml) 88 ml IV ONCE ONE Stop: 08/18/22 16:18 Last Admin: 08/18/22 16:17 Dose: 88 ml Documented By: MABEL Metoclopramide HCl (Metoclopramide Hcl Inj 5 Mg/Ml 2 Ml Vial) 5 mg IV ONE ONE Stop: 08/18/22 10:06 Last Admin: 08/18/22 10:32 Dose: 5 mg Documented By: AMBERLY Ondansetron HCl (Ondansetron Inj 2 Mg/Ml 2 Ml Vial) 4 mg IV NOW STA Stop: 08/18/22 08:45 Last Admin: 08/18/22 09:00 Dose: Not Given Documented By: AMBERLY Discharge Plan Visit Data Chief Complaint: Illness ED Provider: Leon Chaney Discharge Problem: Nausea & vomiting, Acute dehydration, Diarrhea, Hypomagnesemia, Hypoxia Patient Disposition: Admitted As Inpatient Discharge Instructions Interventions: ED Discharge Assessment Last Done: 08/18/22 12:50
[2022-08-18] MEDS ORDERED: ONDANSETRON INJ 2 MG/ML 2 ML VIAL IV STA (08:44)
[2022-08-18] MEDS ORDERED: SODIUM CHLORIDE 0.9% 1000ML 1,000 ML IV STA (08:44)
[2022-08-18 09:00] LABS: Basophils # (auto) 0.04 K/uL (0-0.2); Basophils % (auto) 0.8 %; Eosinophils # (auto) 0.02 K/uL (0-0.50); Eosinophils % (auto) 0.4 %; Hematocrit (blood only) 44.5 % (37.0-47.0); Hemoglobin 14.6 g/dl (12.0-16.0); Immature Granulocytes # (auto) 0.01 K/uL (0.01-0.20); Immature Granulocytes % (auto) 0.2 %; Lymphocytes # (auto) 0.76 K/uL (1.2-3.4); Lymphocytes % (auto) 14.3 %; Mean Corpuscular Hemoglobin 32.8 pg (25.0-34.0); Mean Corpuscular Hgb Conc 32.8 g/dL (32.0-36.0); Mean Platelet Volume 10.8 fL (9.4-12.4); Monocytes # (auto) 0.55 K/uL (0.11-0.59); Monocytes % (auto) 10.4 %; Neutrophils # (auto) 3.93 K/uL (1.40-6.50); Neutrophils % (auto) 73.9 %; Platelet Count 237 K/uL (130-400); RDW Coefficient of Variation 14.6 % (11.5-14.5); RDW Standard Deviation 53.8 fL (36.4-46.3); Red Blood Count 4.45 M/uL (4.20-5.40); White Blood Count 5.31 K/ul (4.8-10.8)
[2022-08-18] MEDS ORDERED: FAMOTIDINE 20MG IV PUSH 20 MG/5 ML SYR IV STA (09:09)
[2022-08-18 09:44] LABS: Alanine Aminotransferase 12 U/L (7-52); BUN Creatinine Ratio 24.2 (10-20); Bilirubin,Total 0.4 mg/dl (0.2-1.0); Blood Urea Nitrogen 23 mg/dl (6-23); Calcium 8.3 mg/dl (8.6-10.3); Carbon Dioxide 22 mmol/L (21-32); Chloride 112 mmol/L (98-107); Creatinine Clr Calc Pharmacy 46.7 ml/min; Est GFR (Non-African American) 57.8 ml/min; Glucose 103 mg/dl (70-99(Fasting)); Lipase 7 U/L (11-82)
[2022-08-18] MEDS ORDERED: METOCLOPRAMIDE HCL INJ 5 MG/ML 2 ML VIAL IV ONE (10:05)
[2022-08-18] MEDS ORDERED: CALCIUM GLUCONATE 1,000 MG/60 ML BAG IV STA (10:05)
[2022-08-18 10:07] LABS: Adenovirus PCR Not Detected (NotDetected); Bordetella parapertussis PCR Not Detected (NotDetected); Bordetella pertussis PCR Not Detected (NotDetected); Chlamydia pneumoniae PCR Not Detected (NotDetected); Coronavirus 229E PCR Not Detected (NotDetected); Coronavirus CoV-2 (COVID19)PCR Not Detected (NotDetected); Coronavirus HKU1 PCR Not Detected (NotDetected); Coronavirus NL63 PCR Not Detected (NotDetected); Coronavirus OC43PCR Not Detected (NotDetected); Human Metapneumovirus PCR Not Detected (NotDetected); Influenza A PCR Not Detected (NotDetected); Influenza B PCR Not Detected (NotDetected); Mycoplasma pneumoniae PCR Not Detected (NotDetected); Parainfluenza Virus 1 PCR Not Detected (NotDetected); Parainfluenza Virus 2 PCR Not Detected (NotDetected); Parainfluenza Virus 3 PCR Not Detected (NotDetected); Parainfluenza Virus 4 PCR Not Detected (NotDetected); Respiratory Syncytial VirusPCR Not Detected (NotDetected); Rhinovirus/Enterovirus PCR Not Detected (NotDetected)
[2022-08-18 10:22] LABS: Albumin Level 3.3 gm/dl (3.4-5.0); Magnesium 1.5 mg/dl (1.7-2.4)
--- NOTE | 2022-08-18 10:40 | XRay Report ---
XR chest 1V portable HISTORY: hypoxia/vomiting COMPARISON: Chest 01/23/2021. FINDINGS: There are low lung volumes. No pneumothorax. The heart is normal in size. Eventration of th e right hemidiaphragm again noted. Left basilar linear densities and a trace left pleural effusion parker ve improved. No evidence for pulmonary edema. No new focal lung consolidations identified. There is a left-sided dual-chamber pacemaker. Moderate hiatus hernia. IMPRESSION: 1. Interval improvement in the trace left pleural effusion and left basilar linear densities. This fa vors subsegmental atelectasis. 2. No evidence for pulmonary edema. 3. Moderate hiatus hernia again noted. ACT 112: Negative or not required by law. Electronically signed by: Jerome Segura M.D. 08/18/2022 10:39 AM
[2022-08-18] MEDS ORDERED: MAGNESIUM SULFATE / D5W 1 GM/100 ML BAG IV STA (11:22)
[2022-08-18 11:54] LABS: Appearance Urine Cloudy (Clear); Bacteria Urine Automated 1+ (Negative); Bilirubin Urine Negative (Negative); Blood Urine Negative (Negative); Color Urine Dark Yellow; Epithelial Cell Urine Auto >30 /lpf (0-5); Glucose Urine UA Negative (Negative); Ketones Urine Negative (Negative); Leukocyte Esterase Urine Negative (Negative); Nitrite Urine Negative (Negative); Protein Urine 1+ (Negative); Specific Gravity Urine 1.026 (1.000-1.030); Urobilinogen Urine Negative (Negative); pH Urine 5.5 (4.5-7.5)
--- NOTE | 2022-08-18 12:03 | History & Physical Report ---
Date of Service August 18, 2022 Assessment & Plan (1) Nausea vomiting and diarrhea: (2) Hiatal hernia: (3) Hypomagnesemia: Plan: - Admit to med telemetry -Appears to be viral in nature, suspected acute gastritis -Continue on NSS IV, allow clear liquid diet, antiemetics - pt is feeling slightly better with these things in the ER. Was unable to safely ambulate due to lightheadedness and dizziness -Stool culture, check C. difficile, patient denies any recent use of antibiotic therapy -Magnesium is 1.5 on arrival, replaced with IV, trend with a.m. labs -Hiatal hernia is knowing, seen on imaging studies (4) Tachy-chintan syndrome: (5) Status post biventricular pacemaker: (6) CAD in [place] artery: (7) Hypertension: (8) Dyslipidemia: Plan: - Resume atenolol, diltiazem, baby aspirin, rosuvastatin as long as tolerates p.o. intake - will give dose of atenolol and diltiazem now since missed meds x 2 days - Blood pressure is 145/86, tachycardia of 113, likely due to dehydration, continue IVF as above - S/p tachy chintan syndrome with s/p dual chamber pacemaker and CAD stent in place - Admits to having some lightheadedness and dizziness - will ask pacemaker to be interrogated - Pt denies chest pain, d/t tachycardia and hypoxia will check troponin and EKG - Last echo reviewed [facility] 01/24/22: LVEF of 55-59%, mild mitral regurg, mild tricuspid regurg, pacemaker present (9) Hypothyroidism: Plan: -Check TSH with T4, continue levothyroxine 137 mcg daily - last TSH was 05/22/22 was 2.2 (10) History of pulmonary embolism: (11) History of DVT (deep vein thrombosis): (12) S/P IVC filter: Plan: - History of such in 2009, patient remains having shortness of breath with tachycardia will consider CTA of the chest DVT PPx: - teds, scds CODE: Full code Dispo: From home, likely to remain in the hospital x 1-2 days A total of 77 minutes were spent with greater than 50% of that time face to face with the patient, personally reviewing all current laboratories, imaging studies, past medication reconciliation, outpatient chart review, and discussion with specialists to collaborate care for the patient with attending. Please see attending documentation for corrections and/or additions. History of Present Illness Chief Complaint: Nausea, vomiting, diarrhea Primary Care Provider: Rafa Bergman MD This is a 77-year-old female with PMHx of hiatal hernia, mild asthma, CAD, history of tachybradycardia syndrome, ischemic cardiomyopathy, HTN, HLD CKD stage III, hypothyroidism, history of DVT/PE with IVC filter in place, GERD, who presents to the hospital with acute onset of nausea, vomiting and diarrhea over the past 24 hours. 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 She has had numerous bouts of vomiting and diarrhea throughout the past 24 hours. She has only been able to tolerate small sips of fluid today, she has not taken her medication since 08/16 due to vomiting it back up. Yesterday she had a fever of 101.8 followed by chills and shaking. She denies any known sick contacts, undercooked or raw foods, spoiled foods, etc. Patient lives at home with her daughter who is well. She feels miserable overall, reports that this is very unlike her normal, and does not ever get this sick. Upon presentation she is found to have hypomagnesemia of 1.5, glucose 103, calcium 8.3, albumin 3.3, normal WBC of 5.3 with lymphocytes of 0.76. Respiratory viral panel is negative. C. difficile and stool culture are pe nding. Chest x-ray is negative except for a trace left pleural effusion and left basilar linear densities which favors subsegmental atelectasis. Moderate hiatal hernia is seen. Allergies Allergy/AdvReac Type Severity Reaction Status Date / Time imipenem Allergy Severe ANAPHYLAXIS Verified 08/18/22 09:12 Sulfa (Sulfonamide Allergy Severe hives,sob, Verified 08/18/22 09:12 Antibiotics) can take Dyazide daptomycin AdvReac Severe Anaphylaxis Unverified 08/18/22 09:12 colchicine AdvReac Intermediate diarrhea Verified 08/18/22 09:12 metoprolol AdvReac Mild fatigue Verified 08/18/22 09:12 zoledronic acid AdvReac Mild NAUSEA AND Verified 08/18/22 09:12 VOMITING Home Medications Medication Instructions Recorded Confirmed Type cholecalciferol (vitamin D3) 50 2,000 unit PO QAM 04/28/18 08/18/22 History mcg (2,000 unit) tablet (Vitamin D3) fexofenadine 180 mg tablet 180 mg PO DAILY PRN Allergy 04/28/18 08/18/22 History ([place] Allergy) Symptoms pumpkin seed extract-soy germ 300 1 cap PO QAM 04/28/18 08/18/22 History mg capsule (Azo Bladder Control) nitroglycerin 0.4 mg sublingual 0.4 mg sublingual Q5M chest pain 05/01/18 08/18/22 Rx tablet (Nitrostat) #25 tabs aspirin 81 mg tablet,delayed 81 mg PO HS #0 tabs 05/16/18 08/18/22 Rx release fluticasone propionate 50 2 spray intranasal QAM 06/03/18 08/18/22 History mcg/actuation nasal spray,suspension (Flonase Allergy Relief) dicyclomine 20 mg tablet 20 mg PO TID PRN IBS 02/12/19 08/18/22 History allopurinol 300 mg tablet 150 mg PO QAM 01/23/21 08/18/22 History coenzyme Q10 100 mg capsule 100 mg PO DAILY 01/23/21 08/18/22 History (CoQ-10) diltiazem HCl 360 mg 360 mg PO QPM 01/23/21 08/18/22 History tablet,extended release 24 hr levothyroxine 137 mcg tablet 137 mcg PO DAILYBB 01/23/21 08/18/22 History rosuvastatin 5 mg tablet 5 mg PO DAILY 01/23/21 08/18/22 History pantoprazole 40 mg tablet,delayed 40 mg PO BID #60 tabs 01/24/21 08/18/22 Rx release allopurinol 300 mg tablet 300 mg PO QPM 08/18/22 08/18/22 History atenolol 25 mg tablet 12.5 mg PO DAILY 08/18/22 08/18/22 History cholecalciferol (vitamin D3) 25 25 mcg PO DAILY 08/18/22 08/18/22 History mcg (1,000 unit) tablet famotidine 20 mg tablet 20 mg PO DAILY 08/18/22 08/18/22 History loperamide 2 mg tablet 2 mg PO QID PRN Diarrhea 08/18/22 08/18/22 History Past Med/Surg History Medical History (Updated 08/18/22 @ 13:01 by Sarah Hsu PA-C) CAD (coronary artery disease) Dyslipidemia GERD (gastroesophageal reflux disease) History of DVT (deep vein thrombosis) History of non-ST elevation myocardial infarction (NSTEMI) History of pulmonary embolism Hypertension (Unknown) BP better today continue higher dose of metoprolol 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 Hypothyroidism Ischemic cardiomyopathy Non-ST elevated myocardial infarction (non-STEMI) Osteoporosis Retinal vein occlusion of right eye Rupture of left posterior tibialis tendon Vitamin B12 deficiency Surgical History (Updated 08/18/22 @ 13:17 by Sarah Hsu PA-C) History of cardiac cath S/P BSO (status post bilateral salpingo-oophorectomy) S/P IVC filter Status post biventricular pacemaker Status post hysterectomy Status post right knee replacement Family History Father Coronary heart disease Heart disease Mother Stroke Allergies Grandmother Asthma Grandfather Asthma Other Hypertension No family history of adverse response to anesthesia No family history of bleeding disorder Social History Smoking Status: Never smoker Second Hand Exposure: No; Do You Dip or Chew Tobacco: No; Hx Alcohol Use: No Hx Substance Use: No Preferred Language: Kosovan Communication Ability: Effective 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 Required: No Beliefs That Will Affect Care: None marital status: Current Living Situation: Family Current Living Situation Comment: Lives with daughter current occupational status: employed How many Children do You have: 1 Feels Safe at Home: Yes Assistive Devices: None Review of Systems Review of Systems: Constitutional: + fever, sweats and chills Eyes: No diplopia, no worsening or blurred vision ENT: normal hearing, no trouble swallowing Respiratory: No cough, sputum, dyspnea at rest or on exertion Cardiovascular: No chest pain, tightness or palpitations Abdomen: As per HPI, + pain, nausea, vomiting, diarrhea : No hematuria, dysuria, increased frequency Musculoskeletal: No joint pain, calf pain, swelling Neurologic: + Generalized weakness, no numbness/tingling, or balance problems Psychiatric: No anxiety or depression Skin: No rash or itch Physical Exam Physical Exam: General: awake, alert, obviously ill, fatigued, no acute distress Head: Normocephalic, atraumatic ENT: PERRL, EOMI, no pharyngeal exudate, mucous membranes dry Chest: Clear to auscultation slightly diminished at the bases bilaterally, on 2L with O2 sats of 97% no adventitious breath sounds Cardiac: Sinus tach with heart rate in the low 100s, no murmur, no JVD, normal peripheral pulses, good capillary refill Abdominal: Hyperactive BS x 4 quadrants, soft, nondistended, +generalized tenderness throughout to light palpation, no rebound or guarding Extremities: Normal inspection, no peripheral edema or erythema, calfs nontender to palpation Psych: Normal mood and affect Neuro: AAO x 3, strength intact bilaterally and rated 5/5, no motor deficits, speech is clear, no peripheral sensory deficits Results & Data Results & Data Vital Signs (Past 12 Hours) Vital Signs Pulse Pulse Resp BP BP Pulse Ox O2 Del Method 08/18/22 10:32 103 H 18 146/89 H 95 Nasal Cannula 08/18/22 09:04 95 Nasal Cannula 08/18/22 09:03 101 H 18 131/84 88 L Room Air 08/18/22 08:45 90 Room Air 08/18/22 08:32 114 H 08/18/22 08:25 115 H 18 113/79 93 Room Air O2 Flow Rate 08/18/22 10:32 2 08/18/22 09:04 2 08/18/22 09:03 08/18/22 08:45 08/18/22 08:32 08/18/22 08:25 Laboratory Results 08/18/22 11:35 Urine Culture - Pending Urine,Clean Catch 08/18/22 08/18/22 08/18/22 11:35 09:50 09:07 WBC RBC Hgb Hct MCV MCH MCHC RDW Std Deviation RDW Coeff of Agnes Plt Count MPV Immature Gran % (Auto) Neut % (Auto) Lymph % (Auto) Wilson % (Auto) Eos % (Auto) Baso % (Auto) Neut # (Auto) Lymph # (Auto) Wilson # (Auto) Eos # (Auto) Baso # (Auto) Immature Gran # (Auto) Sodium 142 Potassium 4.0 Chloride Carbon Dioxide Anion Gap BUN Creatinine Est Cr Clr Drug Dosing Est GFR ( Amer) Est GFR (Non-Af Amer) BUN/Creatinine Ratio Glucose Calcium Magnesium 1.5 L Total Bilirubin AST 8 L ALT Alkaline Phosphatase 70 Total Protein Albumin 3.3 L Globulin Albumin/Globulin Ratio Lipase Urine Color Dark Yellow Urine Appearance Cloudy A Urine pH 5.5 Ur Specific [place] 1.026 Urine Protein 1+ H Urine Glucose (UA) Negative Urine Ketones Negative Urine Blood Negative Urine Nitrite Negative Urine Bilirubin Negative Urine Urobilinogen Negative Ur Leukocyte Esterase Negative Urine WBC (Auto) 1-5 Urine RBC (Auto) 5-10 H U Hyaline Cast (Auto) 1-5 U Epithel Cells (Auto) >30 H Urine Bacteria (Auto) 1+ H Urine Mucus Present A Adenovirus (PCR) Not Detected B. pertussis DNA (PCR) Not Detected B.parapertussis DNA PCR Not Detected C. pneumoniae DNA (PCR) Not Detected Coronavirus OC43 (PCR) Not Detected Coronavirus HKU1 (PCR) Not Detected Coronavirus 229E (PCR) Not Detected SARS-CoV-2 (PCR) Not Detected Coronavirus NL63 (PCR) Not Detected Human Metapneumovir PCR Not Detected Influenza Type A (PCR) Not Detected Influenza Type B (PCR) Not Detected M. pneumoniae (PCR) Not Detected Parainfluenza 1 (PCR) Not Detected Parainfluenza 2 (PCR) Not Detected Parainfluenza 3 (PCR) Not Detected Parainfluenza 4 (PCR) Not Detected RSV (PCR) Not Detected Entero/Rhino (PCR) Not Detected 08/18/22 08/18/22 08:38 08:38 WBC 5.31 RBC 4.45 Hgb 14.6 Hct 44.5 MCV 100.0 MCH 32.8 MCHC 32.8 RDW Std Deviation 53.8 H RDW Coeff of Agnes 14.6 H Plt Count 237 MPV 10.8 Immature Gran % (Auto) 0.2 Neut % (Auto) 73.9 Lymph % (Auto) 14.3 Wilson % (Auto) 10.4 Eos % (Auto) 0.4 Baso % (Auto) 0.8 Neut # (Auto) 3.93 Lymph # (Auto) 0.76 L Wilson # (Auto) 0.55 Eos # (Auto) 0.02 Baso # (Auto) 0.04 Immature Gran # (Auto) 0.01 Sodium TNP Potassium TNP Chloride 112 H Carbon Dioxide 22 Anion Gap TNP BUN 23 Creatinine 0.95 Est Cr Clr Drug Dosing 46.7 Est GFR ( Amer) 67.0 Est GFR (Non-Af Amer) 57.8 BUN/Creatinine Ratio 24.2 H Glucose 103 H Calcium 8.3 L Magnesium TNP Total Bilirubin 0.4 AST TNP ALT 12 Alkaline Phosphatase TNP Total Protein 6.0 Albumin TNP Globulin TNP Albumin/Globulin Ratio TNP Lipase 7 L Urine Color Urine Appearance Urine pH Ur Specific [place] Urine Protein Urine Glucose (UA) Urine Ketones Urine Blood Urine Nitrite Urine Bilirubin Urine Urobilinogen Ur Leukocyte Esterase Urine WBC (Auto) Urine RBC (Auto) U Hyaline Cast (Auto) U Epithel Cells (Auto) Urine Bacteria (Auto) Urine Mucus Adenovirus (PCR) B. pertussis DNA (PCR) B.parapertussis DNA PCR C. pneumoniae DNA (PCR) Coronavirus OC43 (PCR) Coronavirus HKU1 (PCR) Coronavirus 229E (PCR) SARS-CoV-2 (PCR) Coronavirus NL63 (PCR) Human Metapneumovir PCR Influenza Type A (PCR) Influenza Type B (PCR) M. pneumoniae (PCR) Parainfluenza 1 (PCR) Parainfluenza 2 (PCR) Parainfluenza 3 (PCR) Parainfluenza 4 (PCR) RSV (PCR) Entero/Rhino (PCR) Diagnostic Findings Chest X-Ray 08/18/22 10:05 XR chest 1V portable HISTORY: hypoxia/vomiting COMPARISON: Chest 01/23/2021. FINDINGS: There are low lung volumes. No pneumothorax. The heart is normal in size. Eventration of the right hemidiaphragm again noted. Left basilar linear densities and a trace left pleural effusion have improved. No evidence for pulmonary edema. No new focal lung consolidations identified. There is a left- sided dual-chamber pacemaker. Moderate hiatus hernia. IMPRESSION: 1. Interval improvement in the trace left pleural effusion and left basilar linear densities. This favors subsegmental atelectasis. 2. No evidence for pulmonary edema. 3. Moderate hiatus hernia again noted. ACT 112: Negative or not required by law. Electronically signed by: Jerome Segura M.D. 08/18/2022 10:39 AM Code Status & VTE Plan Code Status Full code -discussed with the patient at bedside Supervising Physician Co-Signing Physician Notes Pt seen and examined by myself, Susie Braun MD on the day of service. Care was coordinated with FREDDIE Smith. Please refer to her note for additional information. 77yoF with suspected acute gastroenteritis presenting with N/V/D. Tachycardic with electrolyte abnormalities. Weak, Abdomen tender on exam, no rebound or guarding. CT abd/pelvis ordered. Replenish electrolytes, gentle hydration. PT/OT Otherwise as above. (7) Hypertension Hypertension type: unspecified Qualified Code(s): I10 - Essential (primary) hypertension
[2022-08-18] MEDS ORDERED: SODIUM CHLORIDE 0.9% 1000ML 500 ML IV ONE (12:16)
[2022-08-18 12:18] LABS: Mucus Urine Present (None Prsent)
[2022-08-18] MEDS ORDERED: ATENOLOL 25 MG TABLET PO STA (13:17)
[2022-08-18] MEDS ORDERED: dilTIAZem HCL 180 MG CAPCR PO STA (13:18)
[2022-08-18] MEDS ORDERED: dilTIAZem HCl 60 MG TAB PO ONE (14:00)
[2022-08-18] MEDS: SODIUM CHLORIDE 0.9% 1000ML 1,000 ML IV SCH ×2 (14:09→23:08)
[2022-08-18] MEDS ORDERED: OPTIRAY 320 100ml IV ONE (16:17)
--- NOTE | 2022-08-18 16:25 | Electrocardiogram Report ---
Test Reason : Blood Pressure : / mmHG Vent. Rate : 115 BPM Atrial Rate : 115 BPM P-R Int : 128 ms QRS Dur : 076 ms QT Int : 430 ms P-R-T Axes : 000 009 064 degrees QTc Int : 594 ms Sinus tachycardia Nonspecific ST abnormality Abnormal ECG When compared with ECG of 24-JAN-2021 05:39, Sinus rhythm has replaced Electronic ventricular pacemaker Vent. rate has increased BY 42 BPM Confirmed by Pedro Cueto ([id number]) on 08/18/2022 4:25:07 PM Referred By: REFERRED SELF Confirmed By:Floyd Cueto
--- NOTE | 2022-08-18 16:40 | CT Scan Report ---
ABDOMEN AND PELVIS CT WITH IV CONTRAST CT DOSE: 1011.43 mGy.cm HISTORY: N/V/D abdominal pain on exam TECHNIQUE: Multiaxial CT images of the abdomen and pelvis were performed following the use of intrave nous contrast. A dose lowering technique was utilized adhering to the principles of ALARA. COMPARISON STUDY: Abdomen and pelvis CT 03/10/2015. FINDINGS: There is again noted a large hiatus hernia containing the majority the stomach. Bilateral l ower lobe densities are nonspecific but favor atelectasis. Pacemaker wires are noted. There are heali ng/healed right lateral sixth and seventh rib fractures. No acute fractures identified. Tiny fat-cont aining umbilical hernia. Ill-defined focus of fluid within the right gluteal subcutaneous location fa vors a resolving subcutaneous hematoma/contusion. This is also consistent with a subacute injury. Mul tiple large diverticulum at the second portion of the duodenum, unchanged. Multiple jejunal diverticu la are again noted. The liver, gallbladder, spleen, pancreas, and adrenal glands unremarkable. Multip le bilateral renal cysts. Dominant left renal cysts demonstrates a few peripheral calcifications. Thi s is similar to the prior study and measures approximately 8.5 cm. There is a punctate stone within t he left kidney. No ureteral stones. No hydronephrosis. The main portal vein is patent. Normal caliber abdominal aorta. There is a left retroaortic renal vein. No retroperitoneal or pelvic lymphadenopath y. The bladder is unremarkable. Prior hysterectomy. Multiple colonic diverticula. Mild inflammatory c hange within the proximal sigmoid colon best seen on image 260. This is consistent with a mild acute diverticulitis. There is a small focus of extraluminal gas adjacent to the acute diverticulitis consi stent with microperforation. This is best seen on image 248. No abscess identified at this time. No e vidence for bowel obstruction. Normal appendix. IMPRESSION: 1. Mild acute diverticulitis involving the proximal sigmoid colon. There is a small focus of microper foration adjacent to this diverticulitis. However, no abscess identified. 2. No evidence for bowel obstruction. 3. Normal appendix. 4. Subacute/healing right lateral sixth and seventh rib fractures. There is also a subacute subcutane ous hematoma/contusion within the right gluteal region. 5. Additional findings as described above. ACT 112: Negative or not required by law. Electronically signed by: Jerome Segura M.D. 08/18/2022 4:37 PM
[2022-08-18] MEDS ORDERED: PIPERACILLIN/TAZOBACTAM 4.5 GM (over 30 mins) IV ONE (19:45)
--- NOTE | 2022-08-18 20:05 | Surgery Consultation ---
Date of Consultation August 18, 2022 Assessment & Plan (1) Nausea vomiting and diarrhea: (2) Acute diverticulitis: Plan Evidence for mild, uncomplicated acute diverticulitis on CT. Afebrile, HD stable without leukocytosis. Denies abdominal pain and tenderness. No acute surgical intervention at this time. Admitted to medicine. Conservative management, NPO. Patient has been started on Zosyn and is on IVF. She has been started on chemical DVT ppx and GI ppx. Ambulate, TEDs while in bed. F/u am labs and abdominal exam. History of Present Illness Reason for Consultation: Abdominal pain, evidence for acute diverticulitis on CT imaging Attending Physician: Susie Braun MD History of Present Illness Mrs. 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 She initially thought she just had a viral illness but her symptoms did not resolve. She says she had some mild cramping in her abdomen from all of the vomiting but denies ever noting any abdominal pain. She admits to feeling feverish at home as well. In the ED she was tachycardic, no leukocytosis and she was afebrile. Rehana was admitted to medicine for supportive care to include IV hydration and IV antibiotics. A CT of the abdomen and pelvis was obtained that revealed significant diverticular disease with an inflamed diverticula and an adjacent microperforation at the sigmoid colon. I was called for surgical consultation. Rehana says she had an episode of diverticulitis several years ago for which she was treated with antibiotics and sent home. Rehana says she has had no other issues with this since then. At this point Rehana says she has already started to feel better, has no abdominal pain, no further nausea, vomiting or diarrhea. Allergies Allergy/AdvReac Type Severity Reaction Status Date / Time imipenem Allergy Severe ANAPHYLAXIS Verified 08/18/22 09:12 Sulfa (Sulfonamide Allergy Severe hives,sob, Verified 08/18/22 09:12 Antibiotics) can take Dyazide daptomycin AdvReac Severe Anaphylaxis Unverified 08/18/22 09:12 colchicine AdvReac Intermediate diarrhea Verified 08/18/22 09:12 metoprolol AdvReac Mild fatigue Verified 08/18/22 09:12 zoledronic acid AdvReac Mild NAUSEA AND Verified 08/18/22 09:12 VOMITING Home Medications Medication Instructions Recorded Confirmed Type cholecalciferol (vitamin D3) 50 2,000 unit PO QAM 04/28/18 08/18/22 History mcg (2,000 unit) tablet (Vitamin D3) fexofenadine 180 mg tablet 180 mg PO DAILY PRN Allergy 04/28/18 08/18/22 History (Elke Allergy) Symptoms pumpkin seed extract-soy germ 300 1 cap PO QAM 04/28/18 08/18/22 History mg capsule (Azo Bladder Control) nitroglycerin 0.4 mg sublingual 0.4 mg sublingual Q5M chest pain 05/01/18 08/18/22 Rx tablet (Nitrostat) #25 tabs aspirin 81 mg tablet,delayed 81 mg PO HS #0 tabs 05/16/18 08/18/22 Rx release fluticasone propionate 50 2 spray intranasal QAM 06/03/18 08/18/22 History mcg/actuation nasal spray,suspension (Flonase Allergy Relief) dicyclomine 20 mg tablet 20 mg PO TID PRN IBS 02/12/19 08/18/22 History allopurinol 300 mg tablet 150 mg PO QAM 01/23/21 08/18/22 History coenzyme Q10 100 mg capsule 100 mg PO DAILY 01/23/21 08/18/22 History (CoQ-10) diltiazem HCl 360 mg 360 mg PO QPM 01/23/21 08/18/22 History tablet,extended release 24 hr levothyroxine 137 mcg tablet 137 mcg PO DAILYBB 01/23/21 08/18/22 History rosuvastatin 5 mg tablet 5 mg PO DAILY 01/23/21 08/18/22 History pantoprazole 40 mg tablet,delayed 40 mg PO BID #60 tabs 01/24/21 08/18/22 Rx release allopurinol 300 mg tablet 300 mg PO QPM 08/18/22 08/18/22 History atenolol 25 mg tablet 12.5 mg PO DAILY 08/18/22 08/18/22 History cholecalciferol (vitamin D3) 25 25 mcg PO DAILY 08/18/22 08/18/22 History mcg (1,000 unit) tablet famotidine 20 mg tablet 20 mg PO DAILY 08/18/22 08/18/22 History loperamide 2 mg tablet 2 mg PO QID PRN Diarrhea 08/18/22 08/18/22 History Patient History Medical History (Updated 08/18/22 @ 20:19 by Chanda Lima DO) CAD (coronary artery disease) Dyslipidemia GERD (gastroesophageal reflux disease) History of DVT (deep vein thrombosis) History of non-ST elevation myocardial infarction (NSTEMI) History of pulmonary embolism Hypertension (Unknown) BP better today continue higher dose of metoprolol 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 Hypothyroidism Ischemic cardiomyopathy Non-ST elevated myocardial infarction (non-STEMI) Osteoporosis Retinal vein occlusion of right eye Rupture of left posterior tibialis tendon Vitamin B12 deficiency Surgical History (Updated 08/18/22 @ 13:17 by Sarah Hsu PA-C) History of cardiac cath S/P BSO (status post bilateral salpingo-oophorectomy) S/P IVC filter Status post biventricular pacemaker Status post hysterectomy Status post right knee replacement Family History Father Coronary heart disease Heart disease Mother Stroke Allergies Grandmother Asthma Grandfather Asthma Other Hypertension No family history of adverse response to anesthesia No family history of bleeding disorder Social History Smoking Status: Never smoker Second Hand Exposure: No; Do You Dip or Chew Tobacco: No; Hx Alcohol Use: No Hx Substance Use: No Preferred Language: Montserratian Communication Ability: Effective 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 Beliefs That Will Affect Care: None marital status: Current Living Situation: Family Current Living Situation Comment: Lives with daughter current occupational status: employed How many Children do You have: 1 Other Information That Helps Us Care for You: No Feels Safe at Home: Yes Safety Concerns: Feels Safe At This Time Assistive Devices: None Review of Systems Constitutional: + fever (patient admits to feeling febrile at home); no chills, no weakness and no anorexia Respiratory: no cough, no chest congestion, no dyspnea and no wheezing Cardiovascular: no chest pain, no dyspnea, no palpitations and no lightheadedness Gastrointestinal: + diarrhea/loose stools (resolving); no abdominal pain, no nausea and no vomiting Physical Exam Constitutional: cooperative and comfortable; no acute distress and not ill appearing Respiratory: normal respiratory effort; no respiratory distress, no labored breathing and does not use accessory muscles Cardiovascular: Rate/Rhythm: regular rate Gastrointestinal (Abdomen): Inspection/Auscultation: abdomen normal to inspection (protuberant, patient states this is her normal abdomen); no abdominal edema and no abdominal surgical incision Percussion/Palpation: abdomen soft; abdomen nontender, no guarding and abdomen not rigid Results & Data Vital Signs (Past 12 Hours) Vital Signs Temp Pulse Pulse Resp BP BP Pulse Ox 08/18/22 19:03 36.8 C 83 18 106/62 92 08/18/22 18:32 111 H 08/18/22 18:13 36.7 C 106 H 20 149/82 H 94 08/18/22 16:30 108 H 20 135/79 98 08/18/22 16:00 111 H 23 142/86 H 95 08/18/22 15:30 110 H 23 133/80 93 08/18/22 15:00 111 H 23 140/82 93 08/18/22 14:55 111 H 20 146/88 H 93 08/18/22 14:13 120 H 20 134/93 94 08/18/22 12:27 113 H 08/18/22 12:01 112 H 16 145/86 H 97 08/18/22 10:32 103 H 18 146/89 H 95 08/18/22 09:04 95 08/18/22 09:03 101 H 18 131/84 88 L 08/18/22 08:45 90 08/18/22 08:32 114 H 08/18/22 08:25 115 H 18 113/79 93 O2 Del Method O2 Flow Rate 08/18/22 19:03 Nasal Cannula 2 08/18/22 18:32 08/18/22 18:13 Nasal Cannula 2 08/18/22 16:30 Nasal Cannula 2 08/18/22 16:00 Nasal Cannula 2 08/18/22 15:30 Nasal Cannula 3 08/18/22 15:00 Nasal Cannula 3 08/18/22 14:55 Nasal Cannula 2 08/18/22 14:13 Nasal Cannula 2 08/18/22 12:27 08/18/22 12:01 Nasal Cannula 2 08/18/22 10:32 Nasal Cannula 2 08/18/22 09:04 Nasal Cannula 2 08/18/22 09:03 Room Air 08/18/22 08:45 Room Air 08/18/22 08:32 08/18/22 08:25 Room Air Diagnostic Findings CT A/P today: IMPRESSION: 1. Mild acute diverticulitis involving the proximal sigmoid colon. There is a small focus of microperforation adjacent to this diverticulitis. However, no abscess identified. 2. No evidence for bowel obstruction. 3. Normal appendix. 4. Subacute/healing right lateral sixth and seventh rib fractures. There is also a subacute subcutaneous hematoma/contusion within the right gluteal region. 5. Additional findings as described above. PG Care Time/CCT Total # of Minutes Spent Total Time Spent with Patient: Total time spent is greater than 50% in coordination of care (as documented) at patient's floor/unit and/or counseling patient: [place] [address] IN/OBS CONSULT LVL 2,35M Patient Type New Medical Decision Making Straight Forward Diagnoses Nausea vomiting and diarrhea R11.2; R19.7 Acute diverticulitis K57.92
[2022-08-18] MEDS: ACETAMINOPHEN 325 MG TAB PO PRN (22:43)
[2022-08-18] MEDS: ASPIRIN 81 MG ECTAB PO SCH (23:07)
[2022-08-18] MEDS: PANTOprazole 40 MG TAB PO SCH (23:07)
[2022-08-18] MEDS: HEPARIN SOD 5,000 UNIT/0.5 ML VIAL SQ SCH (23:07)
[2022-08-18] MEDS: dilTIAZem HCL 180 MG CAPCR PO SCH (23:07)
[2022-08-19] MEDS: ONDANSETRON INJ 2 MG/ML 2 ML VIAL IV PRN ×3 (00:52→15:18)
[2022-08-19] MEDS: PIPERACILLIN/TAZOBACTAM 4.5 GM in DEXTROSE 5% 100 ML IV SCH ×3 (00:58→17:16)
[2022-08-19 02:34] LABS: Adenovirus F 40/41 PCR Not Detected (NotDetected); Campylobacter PCR Not Detected (NotDetected); Cryptosporidium PCR Not Detected (NotDetected); Cyclospora cayetanensis PCR Not Detected (NotDetected); Entamoeba histolytica PCR Not Detected (NotDetected); Enteroaggregative E.coli(EAEC) Not Detected (NotDetected); Enteropathogenic E.coli (EPEC) Not Detected (NotDetected); Enterotoxigenic E.coli (ETEC) Not Detected (NotDetected); Giardia lamblia PCR Not Detected (NotDetected); Norovirus GI/GII PCR Not Detected (NotDetected); Plesiomonas shigelloides PCR Not Detected (NotDetected); Rotavirus A PCR Not Detected (NotDetected); Salmonella PCR Not Detected (NotDetected); Sapovirus PCR Not Detected (NotDetected); Shiga-like Toxin E.coli (STEC) Not Detected (NotDetected); Shigella/Enteroinvasive E.coli Not Detected (NotDetected); Vibrio cholerae PCR Not Detected (NotDetected); Vibrio species PCR Not Detected (NotDetected); Yersinia enterocolitica PCR Not Detected (NotDetected)
[2022-08-19 02:35] LABS: Astrovirus PCR DETECTED (NotDetected)
[2022-08-19] MEDS: SODIUM CHLORIDE 0.9% 1000ML 1,000 ML IV SCH ×3 (06:11→22:54)
[2022-08-19] MEDS: LEVOTHYROXINE SODIUM 137 MCG TABLET PO SCH (06:11)
[2022-08-19] MEDS: ACETAMINOPHEN 325 MG TAB PO PRN ×2 (06:19→15:18)
--- NOTE | 2022-08-19 06:37 | Surgery Progress Note ---
Date of Service August 19, 2022 Assessment & Plan (1) Acute diverticulitis: Plan: Patient has been admitted on the hospitalist service. CT evidence of uncomplicated sigmoid diverticulitis without leukocytosis. She was febrile o/n. From a surgical perspective we recommend the following: Continue n.p.o. status until improvement of abdominal exam noted and nausea is resolved. Continue IV fluid for hydration Continue antibiotics in the form of Zosyn Continue analgesics Continue antiemetics -Ambulate Due to loose bowel movements stool studies have been sentthe studies have been noted to be negative for C. difficile and all other substances tested exce pt for astrovirus. Subcutaneous heparin is in place for DVT prevention- Admission and Anticipated Discharge Date Admission Date: August 18, 2022 Supervising Physician Co-Signing Physician Notes I have seen and examined this patient with the surgical PA and I agree with the plan. Subjective Patient notes she still has similar abdominal cramping similar to what she noted at time of presentation. Today she says the mild cramping is on the right side as opposed to the left where it was yesterday. She says she had some mild nausea and received Zofran early this am. She says loose bowel movements have returned and is passing flatus. Physical Exam Gastrointestinal (Abdomen): Abdomen is soft and nonrigid without guarding and has positive bowel sounds. Patient did have minimal TTP on the right side of her abdomen. Non-tender at any other location. Results & Data Vital Signs (Past 12 Hours) Vital Signs Temp Pulse Pulse Pulse Resp BP Pulse Ox 08/19/22 02:11 36.7 C 91 H 20 112/58 L 94 08/18/22 22:01 88 08/18/22 23:46 37.4 C 08/18/22 22:26 39.1 C H 94 H 20 126/65 93 08/18/22 20:12 93 08/18/22 20:05 37.8 C H 84 16 115/69 89 L 08/18/22 19:03 36.8 C 83 18 106/62 92 O2 Del Method O2 Flow Rate 08/19/22 02:11 Nasal Cannula 2 08/18/22 22:01 08/18/22 23:46 08/18/22 22:26 Nasal Cannula 3 08/18/22 20:12 Nasal Cannula 3 08/18/22 20:05 Nasal Cannula 2 08/18/22 19:03 Nasal Cannula 2 Laboratory Results WBC remains WNL at 7.02 Diagnostic Findings Blood cultures showing no growth. Stool studies reveal Astrovirus by PCR, C.diff negative PG Care Time/CCT Total # of Minutes Spent Total Time Spent with Patient: Total time spent is greater than 50% in coordination of care (as documented) at patient's floor/unit and/or counseling patient: Coding [place] [address] SUB INP/OBS CARE 1/25MIN Patient Type Established History Problem Focused Exam Problem Focused Medical Decision Making Straight Forward Diagnoses Acute diverticulitis K57.92
[2022-08-19 07:52] LABS: Hematocrit (blood only) 38.7 % (37.0-47.0); Hemoglobin 12.5 g/dl (12.0-16.0); Mean Corpuscular Hemoglobin 32.9 pg (25.0-34.0); Mean Corpuscular Hgb Conc 32.3 g/dL (32.0-36.0); Mean Corpuscular Volume 101.8 fL (80.0-100.0); Mean Platelet Volume 9.9 fL (9.4-12.4); Platelet Count 186 K/uL (130-400); RDW Coefficient of Variation 14.6 % (11.5-14.5); RDW Standard Deviation 54.6 fL (36.4-46.3); White Blood Count 7.02 K/ul (4.8-10.8)
[2022-08-19 08:09] LABS: BUN Creatinine Ratio 20.2 (10-20); Calcium 7.2 mg/dl (8.6-10.3); Creatinine Clr Calc Pharmacy 42.6 ml/min; Est GFR (Non-African American) 51.8 ml/min; Magnesium 1.6 mg/dl (1.7-2.4); Potassium 3.7 mmol/L (3.5-5.1)
[2022-08-19] MEDS ORDERED: MAGNESIUM SULFATE / D5W 1 GM/100 ML BAG IV ONE (08:31)
[2022-08-19] MEDS: ROSUVASTATIN CALCIUM 5 MG TAB PO SCH (09:44)
[2022-08-19] MEDS: HEPARIN SOD 5,000 UNIT/0.5 ML VIAL SQ SCH ×2 (09:44→21:26)
[2022-08-19] MEDS: PANTOprazole 40 MG TAB PO SCH ×2 (09:45→21:26)
--- NOTE | 2022-08-19 15:30 | Hospitalist Progress Note ---
Date of Service August 19, 2022 Assessment & Plan (1) Nausea vomiting and diarrhea: Plan: Acute diverticulitis with microperforation --CT ABD:Mild acute diverticulitis involving the proximal sigmoid colon. There is a small focus of microperforation adjacent to this diverticulitis. However, no abscess identified. No evidence for bowel obstruction. Normal appendix. -- Blood cultures pending --Continue IV Zosyn --Continue bowel rest, IV fluids Pain control as needed Appreciate surgery input Gastroenteritis Secondary to astrovirus infection Stool studies negative for C. difficile, positive for astrovirus Conservative management Left rib fractures Incidental finding on CT --CT:Subacute/healing right lateral sixth and seventh rib fractures. There is also a subacute subcutaneous hematoma/contusion within the right gluteal region. Incentive spirometry Patient admits t a fall about a month ago. Fall precautions (2) Hiatal hernia: Plan: Continue PPI (3) Hypomagnesemia: Plan: Replete electrolytes as needed (4) Tachy-chintan syndrome: Plan: s/p dual chamber pacemaker Continue Cardizem (5) Status post biventricular pacemaker: (6) CAD in [place] artery: Plan: Continue aspirin, statin (7) Hypertension: Plan: Continue home medications (8) Dyslipidemia: Plan: On statin (9) Hypothyroidism: Plan: Normal TSH Continue levothyroxine (10) History of pulmonary embolism: (11) History of DVT (deep vein thrombosis): (12) S/P IVC filter: Plan: Currently not on chronic anticoagulation DVT Px: Heparin SQ CODE STATUS: Full code Admission and Anticipated Discharge Date Admission Date: August 18, 2022 Subjective Patient is seen and examined at bedside States having nausea, vomiting, diarrhea, abdominal cramping Denies any chest pain, dyspnea No other complaints Review of Systems Review of Systems: All systems reviewed & are unremarkable except as noted in Subjective Physical Exam Physical Exam: Physical Exam: Vitals signs as noted above General Appearance:Moderately built and nourished, no apparent distress Head: normocephalic, Atraumatic Eyes: normal inspection, EOMI Neck: supple, Trachea midline Respiratory/Chest: Normal breath sounds, CTA, No accessory muscle use Cardiovascular: S1, S2, No murmur Abdomen/GI:Soft, generalized tender, mildly distended, Bowel sounds present Extremities/Musculoskeletal:normal inspection, Trace edema Neurologic/Psych:AAOX3, grossly no focal neurological deficits Skin: normal color, warm Results & Data Results & Data Vital Signs (Past 12 Hours) Vital Signs Temp Pulse Pulse Resp BP Pulse Ox O2 Del Method 08/19/22 11:48 36.6 C 75 16 99/57 L 92 Room Air 08/19/22 10:47 08/19/22 08:00 74 08/19/22 08:10 37.0 C 83 16 116/72 92 Nasal Cannula O2 Flow Rate 08/19/22 11:48 08/19/22 10:47 2 08/19/22 08:00 08/19/22 08:10 3 Laboratory Results Short CBC 08/19/22 Range/Units 07:19 WBC 7.02 (4.8-10.8) K/ul Hgb 12.5 (12.0-16.0) g/dl Hct 38.7 (37.0-47.0) % Plt Count 186 (130-400) K/uL BMP 08/19/22 07:19 Sodium 140 Potassium 3.7 Chloride 113 H Carbon Dioxide 23 BUN 21 Creatinine 1.04 Glucose 92 Calcium 7.2 L (7) Hypertension Hypertension type: unspecified Qualified Code(s): I10 - Essential (primary) hypertension
[2022-08-19] MEDS: PROMETHAZINE HCL 6.25 MG in SODIUM CHLORIDE 0.9% 50 ML IV PRN (17:16)
[2022-08-19] MEDS: dilTIAZem HCL 180 MG CAPCR PO SCH (21:26)
[2022-08-19] MEDS: ASPIRIN 81 MG ECTAB PO SCH (21:26)
[2022-08-20] MEDS: ACETAMINOPHEN 325 MG TAB PO PRN ×2 (00:25→21:53)
[2022-08-20] MEDS: PIPERACILLIN/TAZOBACTAM 4.5 GM in DEXTROSE 5% 100 ML IV SCH ×3 (00:32→16:30)
[2022-08-20] MEDS: LEVOTHYROXINE SODIUM 137 MCG TABLET PO SCH (06:30)
[2022-08-20 06:50] LABS: Hematocrit (blood only) 40.9 % (37.0-47.0); Hemoglobin 12.9 g/dl (12.0-16.0); Mean Corpuscular Hemoglobin 32.5 pg (25.0-34.0); Mean Corpuscular Hgb Conc 31.5 g/dL (32.0-36.0); Mean Platelet Volume 10.4 fL (9.4-12.4); Platelet Count 160 K/uL (130-400); RDW Coefficient of Variation 13.9 % (11.5-14.5); Red Blood Count 3.97 M/uL (4.20-5.40); White Blood Count 5.31 K/ul (4.8-10.8)
[2022-08-20 07:06] LABS: BUN Creatinine Ratio 18.7 (10-20); Calcium 6.5 mg/dl (8.6-10.3); Creatinine Clr Calc Pharmacy 59.1 ml/min; Est GFR (African American) 89.1 ml/min; Est GFR (Non-African American) 76.9 ml/min; Magnesium 1.8 mg/dl (1.7-2.4); Potassium 3.6 mmol/L (3.5-5.1)
[2022-08-20] MEDS ORDERED: DEXTROSE 50% 50 ML SYRINGE IV ONE (07:11)
[2022-08-20] MEDS: SODIUM CHLORIDE 0.9% 1000ML 1,000 ML IV SCH (07:13)
--- NOTE | 2022-08-20 09:02 | Surgery Progress Note ---
I have seen and examined this patient this am and discussed this case with the surgical PA. I agree with the above. The patient may be started on clear liquids today. Date of Service August 20, 2022 Assessment & Plan (1) Acute diverticulitis: Plan: Patient here w/ acute diverticulitis and while here stool studies + for astrovirus WBC 5.3. Vitals stable and pt afebrile Abdomen soft with improving discomfort, worse on R>L Currently denies nausea or any recent loose BM's Could consider clear liquids and see how she fairs Continue IV abx while in house No plans for surgical intervention indicated at this time, will follow Has outpt colonoscopy scheduled for mid September (2) Astrovirus gastroenteritis: Admission and Anticipated Discharge Date Admission Date: August 18, 2022 Subjective Patient is doing okay. Reports feeling very weak and hungry. Had some nausea yesterday but none today. Denies any recent diarrhea or emesis. Abdominal pain still present, but improving. Physical Exam Physical Exam: awake/alert, no distress Respiratory: normal respiratory effort Gastrointestinal (Abdomen): Inspection/Auscultation: + abdomen distended Percussion/Palpation: + abdomen tender (generalized discomfort to palpation worse on R than L) and abdomen soft Results & Data Vital Signs (Past 12 Hours) Vital Signs Temp Pulse Pulse Resp BP BP Pulse Ox 08/20/22 08:08 36.3 C L 77 19 126/72 92 08/20/22 02:52 36.7 C 70 18 109/67 92 08/20/22 01:46 08/19/22 23:33 74 08/19/22 22:51 36.5 C 73 16 105/61 95 O2 Del Method O2 Flow Rate 08/20/22 08:08 Nasal Cannula 2 08/20/22 02:52 Nasal Cannula 2 08/20/22 01:46 Nasal Cannula 2 08/19/22 23:33 08/19/22 22:51 Nasal Cannula 2 PG Care Time/CCT Total # of Minutes Spent Total Time Spent with Patient: Total time spent is greater than 50% in coordination of care (as documented) at patient's floor/unit and/or counseling patient: Coding Level of Care Code 23660 SUB INP/OBS CARE 25MIN Diagnoses Acute diverticulitis K57.92 Astrovirus gastroenteritis A08.32
[2022-08-20] MEDS: D5W AND 1/2NSS + 20MEQ KCL 20 MEQ/1,000 ML BAG IV SCH (10:44)
[2022-08-20] MEDS: PANTOprazole 40 MG TAB PO SCH ×2 (10:45→21:54)
[2022-08-20] MEDS: ATENOLOL 25 MG TABLET PO SCH (10:45)
[2022-08-20] MEDS: ROSUVASTATIN CALCIUM 5 MG TAB PO SCH (10:45)
[2022-08-20] MEDS: HEPARIN SOD 5,000 UNIT/0.5 ML VIAL SQ SCH ×2 (10:46→21:54)
[2022-08-20] MEDS: PROMETHAZINE HCL 6.25 MG in SODIUM CHLORIDE 0.9% 50 ML IV PRN (14:04)
[2022-08-20] MEDS ORDERED: MoRPHine SULFATE 2 MG/ML CARP IV PRN (15:35)
[2022-08-20] MEDS: ONDANSETRON INJ 2 MG/ML 2 ML VIAL IV PRN (15:54)
--- NOTE | 2022-08-20 16:01 | Hospitalist Progress Note ---
Date of Service August 20, 2022 Assessment & Plan (1) Nausea vomiting and diarrhea: Plan: Acute diverticulitis with microperforation --CT ABD:Mild acute diverticulitis involving the proximal sigmoid colon. There is a small focus of microperforation adjacent to this diverticulitis. However, no abscess identified. No evidence for bowel obstruction. Normal appendix. -- Blood cultures: No growth to date --Continue IV Zosyn --Continue gentle IV fluids Pain control as needed Appreciate surgery input Clear liquid diet today Needs outpatient colonoscopy Gastroenteritis Secondary to astrovirus infection Stool studies negative for C. difficile, positive for astrovirus Conservative management Right rib fractures Incidental finding on CT --CT:Subacute/healing right lateral sixth and seventh rib fractures. There is also a subacute subcutaneous hematoma/contusion within the right gluteal region. Incentive spirometry Patient admits t a fall about a month ago. Fall precautions (2) Hiatal hernia: Plan: Continue PPI (3) Hypomagnesemia: Plan: Replete electrolytes as needed (4) Tachy-chintan syndrome: Plan: s/p dual chamber pacemaker Continue Cardizem (5) Status post biventricular pacemaker: (6) CAD in [place] artery: Plan: Continue aspirin, statin (7) Hypertension: Plan: Continue home medications (8) Dyslipidemia: Plan: On statin (9) Hypothyroidism: Plan: Normal TSH Continue levothyroxine (10) History of pulmonary embolism: (11) History of DVT (deep vein thrombosis): (12) S/P IVC filter: Plan: Currently not on chronic anticoagulation DVT Px: Heparin SQ CODE STATUS: Full code Admission and Anticipated Discharge Date Admission Date: August 18, 2022 Subjective Patient is seen and examined at bedside States feeling tired Was nauseous overnight but resolved this morning Abdominal pain is better but still has intermittent abdominal cramping with food intake Intolerant to clear liquid diet today Denies any chest pain, dyspnea Review of Systems Review of Systems: All systems reviewed & are unremarkable except as noted in Subjective Physical Exam Physical Exam: Physical Exam: Vitals signs as noted above General Appearance:Moderately built and nourished, no apparent distress Head: normocephalic, Atraumatic Eyes: normal inspection, EOMI Neck: supple, Trachea midline Respiratory/Chest: Normal breath sounds, CTA, No accessory muscle use Cardiovascular: S1, S2, No murmur Abdomen/GI:Soft, generalized tender, mildly distended, Bowel sounds present Extremities/Musculoskeletal:normal inspection, Trace edema Neurologic/Psych:AAOX3, grossly no focal neurological deficits Skin: normal color, warm Results & Data Results & Data Vital Signs (Past 12 Hours) Vital Signs Temp Pulse Resp BP Pulse Ox O2 Del Method O2 Flow Rate 08/20/22 11:52 36.4 C L 83 19 136/77 96 Nasal Cannula 2 08/20/22 08:08 36.3 C L 77 19 126/72 92 Nasal Cannula 2 Laboratory Results Short CBC 08/20/22 Range/Units 05:51 WBC 5.31 (4.8-10.8) K/ul Hgb 12.9 (12.0-16.0) g/dl Hct 40.9 (37.0-47.0) % Plt Count 160 (130-400) K/uL BMP 08/20/22 05:51 Sodium 141 Potassium 3.6 Chloride 117 H Carbon Dioxide 18 L BUN 14 Creatinine 0.75 Glucose 55 L Calcium 6.5 L (7) Hypertension Hypertension type: unspecified Qualified Code(s): I10 - Essential (primary) hypertension
[2022-08-20] MEDS ORDERED: KETOROLAC TROMETHAMINE 15 MG/ML VIAL IV PRN (16:03)
[2022-08-20] MEDS: dilTIAZem HCL 180 MG CAPCR PO SCH (21:54)
[2022-08-20] MEDS: ASPIRIN 81 MG ECTAB PO SCH (21:54)
[2022-08-21] MEDS: D5W AND 1/2NSS + 20MEQ KCL 20 MEQ/1,000 ML BAG IV SCH ×2 (00:31→14:16)
[2022-08-21] MEDS: PIPERACILLIN/TAZOBACTAM 4.5 GM in DEXTROSE 5% 100 ML IV SCH ×3 (00:31→17:17)
[2022-08-21] MEDS: LEVOTHYROXINE SODIUM 137 MCG TABLET PO SCH (06:02)
[2022-08-21 07:02] LABS: Calcium 6.4 mg/dl (8.6-10.3); Magnesium 1.7 mg/dl (1.7-2.4); Potassium 3.4 mmol/L (3.5-5.1)
[2022-08-21 07:07] LABS: BUN Creatinine Ratio 9.7 (10-20); Creatinine Clr Calc Pharmacy 61.5 ml/min; Est GFR (African American) 93.6 ml/min; Est GFR (Non-African American) 80.8 ml/min
[2022-08-21] MEDS: PANTOprazole 40 MG TAB PO SCH ×2 (09:13→20:52)
[2022-08-21] MEDS: ROSUVASTATIN CALCIUM 5 MG TAB PO SCH (09:14)
[2022-08-21] MEDS: ATENOLOL 25 MG TABLET PO SCH (09:14)
[2022-08-21] MEDS: HEPARIN SOD 5,000 UNIT/0.5 ML VIAL SQ SCH ×2 (09:14→20:49)
[2022-08-21] MEDS ORDERED: STAT IV STA (09:19)
[2022-08-21] MEDS ORDERED: POTASSIUM CHLORIDE CRTAB 20 MEQ TABCR PO ONE (09:30)
[2022-08-21] MEDS ORDERED: CALCIUM GLUCONATE 10% 1,000 MG in DEXTROSE 5% 50 ML IV ONE (09:30)
--- NOTE | 2022-08-21 12:19 | Surgery Progress Note ---
I have seen this patient with the surgical PA and I agree with the plan. Date of Service August 21, 2022 Assessment & Plan (1) Astrovirus gastroenteritis: Plan: Patient here w/ acute diverticulitis and while here stool studies + for astrovirus Vitals stable and pt afebrile She is having worsening loose stools. Clears run right through her Pain all right sided none on the L Will back diet back to NPO +sips/chips for now GI consult given + astrovirus if they have any recommendations for this to help with patients symptoms Continue IV abx while in house. appears diverticulitis not causing her pain/symptoms at this time No plans for surgical intervention indicated at this time, will follow Has outpt colonoscopy scheduled for mid September Pt seen/examined with Dr. Lima (2) Acute diverticulitis: Admission and Anticipated Discharge Date Admission Date: August 18, 2022 Subjective Patient having multiple loose stools, associated with r sided abdominal cramping. reports when she drinks clears it runs right through her. no left sided discomfort. feels worn out Physical Exam Physical Exam: awake/alert Respiratory: normal respiratory effort Gastrointestinal (Abdomen): Inspection/Auscultation: abdomen not distended Percussion/Palpation: + abdomen tender (some R mid abdominal discomfort ) and abdomen soft Results & Data Vital Signs (Past 12 Hours) Vital Signs Temp Pulse Pulse Resp BP BP Pulse Ox 08/21/22 08:07 70 08/21/22 07:27 36.7 C 84 18 132/78 94 08/21/22 04:00 36.6 C 74 18 101/60 92 O2 Del Method O2 Flow Rate 08/21/22 08:07 08/21/22 07:27 Nasal Cannula 2 08/21/22 04:00 Nasal Cannula 2 PG Care Time/CCT Total # of Minutes Spent Total Time Spent with Patient: Total time spent is greater than 50% in coordination of care (as documented) at patient's floor/unit and/or counseling patient: Coding Level of Care Code 93469 SUB INP/OBS CARE 25MIN Diagnoses Astrovirus gastroenteritis A08.32 Acute diverticulitis K57.92
--- NOTE | 2022-08-21 13:27 | Gastrointestinal Consultation ---
Date of Consultation August 21, 2022 Assessment & Plan (1) Astrovirus gastroenteritis: (2) Diarrhea: Improved today (3) Acute diverticulitis: pain resolved and otherwise also clinically improved on antibiotics Plan Continue broad spectrum antibiotics for tx of diverticulitis. Adv to full liquids po. OK to continue antidiarrheals prn. Will plan for OP colonoscopy mid September as already scheduled. Supervising Physician Co-Signing Physician Notes I performed a history and physical examination of the patient today, including specifically on physical exam - soft abdomen. I have discussed the patient's management with the advanced practitioner. Please refer to the nurse practitioner's note for the documented findings and plan of care. ABx. Colonoscopy as OP. Recall GI if needed. History of Present Illness Reason for Consultation: astrovirus, ongoing diarrhea, diverticulitis. Requesting Physician: Elvia Wills PA-C Attending Physician: Nathan Macedo MD History of Present Illness Ms. 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 She presented to the ED on 08/18 for Nausea/vomiting/abd pain of 24 hrs duration at that time. CT on arrival w mild acute sigmoid diverticulitis w microperforation w/o abscess. Stool studies (+) for astrovirus, negative for C-diff or other pathogens. Seen by surgery who recommended conservative tx for the diverticulitis and she is on ZOsyn. She is also taking Imodium, 2 tabs QID. The pt tells me that symptoms began suddenly on Saturday w Pain, N/V, fever and diarrhea. The most recent emesis was on Saturday. She passed 10 or more brown liquid BMs daily from Sat through yesterday and this morning she passed just one large liquid BM after breakfast. She hasn't had any blood in her BMs. Her pain is now resolved and she is very hungry asking to eat. She has undergone colonoscopies regularly and has one scheduled for september. She has a hx of prior diverticulitis about 20 yrs ago but didn't have the severe diarrhea with that episode. Allergies Allergy/AdvReac Type Severity Reaction Status Date / Time imipenem Allergy Severe ANAPHYLAXIS Verified 08/18/22 09:12 Sulfa (Sulfonamide Allergy Severe hives,sob, Verified 08/18/22 09:12 Antibiotics) can take Dyazide daptomycin AdvReac Severe Anaphylaxis Unverified 08/18/22 09:12 colchicine AdvReac Intermediate diarrhea Verified 08/18/22 09:12 metoprolol AdvReac Mild fatigue Verified 08/18/22 09:12 zoledronic acid AdvReac Mild NAUSEA AND Verified 08/18/22 09:12 VOMITING Home Medications Medication Instructions Recorded Confirmed Type cholecalciferol (vitamin D3) 50 2,000 unit PO QAM 04/28/18 08/18/22 History mcg (2,000 unit) tablet (Vitamin D3) fexofenadine 180 mg tablet 180 mg PO DAILY PRN Allergy 04/28/18 08/18/22 History ([place] Allergy) Symptoms pumpkin seed extract-soy germ 300 1 cap PO QAM 04/28/18 08/18/22 History mg capsule (Azo Bladder Control) nitroglycerin 0.4 mg sublingual 0.4 mg sublingual Q5M chest pain 05/01/18 08/18/22 Rx tablet (Nitrostat) #25 tabs aspirin 81 mg tablet,delayed 81 mg PO HS #0 tabs 05/16/18 08/18/22 Rx release fluticasone propionate 50 2 spray intranasal QAM 06/03/18 08/18/22 History mcg/actuation nasal spray,suspension (Flonase Allergy Relief) dicyclomine 20 mg tablet 20 mg PO TID PRN IBS 02/12/19 08/18/22 History allopurinol 300 mg tablet 150 mg PO QAM 01/23/21 08/18/22 History coenzyme Q10 100 mg capsule 100 mg PO DAILY 01/23/21 08/18/22 History (CoQ-10) diltiazem HCl 360 mg 360 mg PO QPM 01/23/21 08/18/22 History tablet,extended release 24 hr levothyroxine 137 mcg tablet 137 mcg PO DAILYBB 01/23/21 08/18/22 History rosuvastatin 5 mg tablet 5 mg PO DAILY 01/23/21 08/18/22 History pantoprazole 40 mg tablet,delayed 40 mg PO BID #60 tabs 01/24/21 08/18/22 Rx release allopurinol 300 mg tablet 300 mg PO QPM 08/18/22 08/18/22 History atenolol 25 mg tablet 12.5 mg PO DAILY 08/18/22 08/18/22 History cholecalciferol (vitamin D3) 25 25 mcg PO DAILY 08/18/22 08/18/22 History mcg (1,000 unit) tablet famotidine 20 mg tablet 20 mg PO DAILY 08/18/22 08/18/22 History loperamide 2 mg tablet 2 mg PO QID PRN Diarrhea 08/18/22 08/18/22 History Patient History Medical History (Updated 08/20/22 @ 09:00 by Elvia Wills PA-C) CAD (coronary artery disease) Dyslipidemia GERD (gastroesophageal reflux disease) History of DVT (deep vein thrombosis) History of non-ST elevation myocardial infarction (NSTEMI) History of pulmonary embolism Hypertension (Unknown) BP better today continue higher dose of metoprolol 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 Hypothyroidism Ischemic cardiomyopathy Non-ST elevated myocardial infarction (non-STEMI) Osteoporosis Retinal vein occlusion of right eye Rupture of left posterior tibialis tendon Vitamin B12 deficiency Surgical History (Updated 08/18/22 @ 13:17 by Sarah Hsu PA-C) History of cardiac cath S/P BSO (status post bilateral salpingo-oophorectomy) S/P IVC filter Status post biventricular pacemaker Status post hysterectomy Status post right knee replacement Family History Father Coronary heart disease Heart disease Mother Stroke Allergies Grandmother Asthma Grandfather Asthma Other Hypertension No family history of adverse response to anesthesia No family history of bleeding disorder Social History Smoking Status: Never smoker Second Hand Exposure: No; Do You Dip or Chew Tobacco: No; Hx Alcohol Use: No Hx Substance Use: No Preferred Language: Bulgarian Communication Ability: Effective Line Department Supervisor Required: No Beliefs That Will Affect Care: None marital status: Current Living Situation: Family Current Living Situation Comment: Lives with daughter current occupational status: employed How many Children do You have: 1 Other Information That Helps Us Care for You: No Feels Safe at Home: Yes Safety Concerns: Feels Safe At This Time Assistive Devices: Cane and Walker Review of Systems Review of Systems: ROS: Gen: + fevers, weakness - resolved. Eyes: No eye redness, or pain, no recent vision changes Resp: No SOB, no cough Cardio: No palpitations/irregular beats, no chest pain GI: As per HPI, otherwise normal. : Denies pain on urination Skin: No jaundice, itching or new rashes Physical Exam Constitutional: well developed, well nourished, cooperative and + overweight; no acute distress Eyes: PERRL, conjunctivae normal, anicteric sclerae ENMT: external ear and nose normal, oropharynx normal Neck: trachea midline, no thyromegaly Respiratory: normal respiratory effort, lungs clear to auscultation Cardiovascular: RRR, no murmur, no edema Gastrointestinal (Abdomen): Mild Rt mid and lower abd tenderness, otherwise non tender and no palpable masses. Musculoskeletal: no cyanosis or clubbing, extremities motor strength 5/5 Skin: sl pale, no rashes, no lesions. Neurologic: PERRL, EOMI, accommodation nl, no face palsy, no dysarthria Psychiatric: A+Ox3, euthymic affect Lymphatic: no cervical or axillary lymphadenopathy Results & Data Vital Signs (Past 12 Hours) Vital Signs Temp Pulse Pulse Resp BP BP Pulse Ox 08/21/22 12:17 36.6 C 74 18 124/75 96 08/21/22 08:07 70 08/21/22 07:27 36.7 C 84 18 132/78 94 08/21/22 04:00 36.6 C 74 18 101/60 92 O2 Del Method O2 Flow Rate 08/21/22 12:17 Nasal Cannula 2 08/21/22 08:07 08/21/22 07:27 Nasal Cannula 2 08/21/22 04:00 Nasal Cannula 2 Laboratory Results CBC 08/20 w/o significant abnormalities. Na 142, K 3.4, Cl 117, BUN 7, Cr 0.72. Diagnostic Findings CTAP w IV on 08/18/22: 1. Mild acute diverticulitis involving the proximal sigmoid colon. There is a small focus of microperforation adjacent to this diverticulitis. However, no abscess identified. 2. No evidence for bowel obstruction. 3. Normal appendix. 4. Subacute/healing right lateral sixth and seventh rib fractures. There is also a subacute subcutaneous hematoma/contusion within the right gluteal region. 5. Additional findings as described above. CXR 1. Interval improvement in the trace left pleural effusion and left basilar linear densities. This favors subsegmental atelectasis. 2. No evidence for pulmonary edema. 3. Moderate hiatus hernia again noted. (2) Diarrhea Diarrhea type: unspecified type Qualified Code(s): R19.7 - Diarrhea, unspecified
--- NOTE | 2022-08-21 17:47 | Hospitalist Progress Note ---
Date of Service August 21, 2022 Assessment & Plan (1) Nausea vomiting and diarrhea: Plan: Acute diverticulitis with microperforation --CT ABD:Mild acute diverticulitis involving the proximal sigmoid colon. There is a small focus of microperforation adjacent to this diverticulitis. However, no abscess identified. No evidence for bowel obstruction. Normal appendix. -- Blood cultures: No growth to date --Continue IV Zosyn --Continue gentle IV fluids Pain control as needed Appreciate surgery input Needs outpatient colonoscopy liquid diet for now Gastroenteritis Secondary to astrovirus infection Stool studies negative for C. difficile, positive for astrovirus Recheck stool for C. difficile given persistent diarrhea GI consulted for input Hypoglycemia Due to poor oral intake Continue gentle IV fluids Right rib fractures Incidental finding on CT --CT:Subacute/healing right lateral sixth and seventh rib fractures. There is also a subacute subcutaneous hematoma/contusion within the right gluteal region. Incentive spirometry Patient admits t a fall about a month ago. Fall precautions (2) Hiatal hernia: Plan: Continue PPI (3) Hypomagnesemia: Plan: Hypokalemia Hypocalcemia Replete electrolytes as needed (4) Tachy-chintan syndrome: Plan: s/p dual chamber pacemaker Continue Cardizem (5) Status post biventricular pacemaker: (6) CAD in [place] artery: Plan: Continue aspirin, statin (7) Hypertension: Plan: Continue home medications (8) Dyslipidemia: Plan: On statin (9) Hypothyroidism: Plan: Normal TSH Continue levothyroxine (10) History of pulmonary embolism: (11) History of DVT (deep vein thrombosis): (12) S/P IVC filter: Plan: Currently not on chronic anticoagulation DVT Px: Heparin SQ CODE STATUS: Full code Admission and Anticipated Discharge Date Admission Date: August 18, 2022 Subjective Patient is seen and examined at bedside States feeling stronger today Still has diarrhea associated with abdominal cramping Denies any chest pain, dyspnea Review of Systems Review of Systems: All systems reviewed & are unremarkable except as noted in Subjective Physical Exam Physical Exam: Physical Exam: Vitals signs as noted above General Appearance:Moderately built and nourished, no apparent distress Head: normocephalic, Atraumatic Eyes: normal inspection, EOMI Neck: supple, Trachea midline Respiratory/Chest: Normal breath sounds, CTA, No accessory muscle use Cardiovascular: S1, S2, No murmur Abdomen/GI:Soft, generalized tender, mildly distended, Bowel sounds present Extremities/Musculoskeletal:normal inspection, Trace edema Neurologic/Psych:AAOX3, grossly no focal neurological deficits Skin: normal color, warm Results & Data Results & Data Vital Signs (Past 12 Hours) Vital Signs Temp Pulse Pulse Pulse Resp BP Pulse Ox 08/21/22 15:59 36.0 C L 72 72 18 118/73 93 08/21/22 14:58 08/21/22 12:17 36.6 C 74 18 124/75 96 08/21/22 08:07 70 08/21/22 07:27 36.7 C 84 18 132/78 94 O2 Del Method O2 Flow Rate 08/21/22 15:59 Room Air 08/21/22 14:58 Nasal Cannula 2 08/21/22 12:17 Nasal Cannula 2 08/21/22 08:07 08/21/22 07:27 Nasal Cannula 2 Laboratory Results BMP 08/21/22 05:49 Sodium 142 Potassium 3.4 L Chloride 117 H Carbon Dioxide 19 L BUN 7 Creatinine 0.72 Glucose 107 H Calcium 6.4 L (7) Hypertension Hypertension type: unspecified Qualified Code(s): I10 - Essential (primary) hypertension
[2022-08-21] MEDS ORDERED: SODIUM CHLORIDE 0.9% 1000ML 1,000 ML IV SCH (19:30)
[2022-08-21] MEDS: dilTIAZem HCL 180 MG CAPCR PO SCH (20:51)
[2022-08-21] MEDS: ASPIRIN 81 MG ECTAB PO SCH (20:52)
[2022-08-22] MEDS: PIPERACILLIN/TAZOBACTAM 4.5 GM in DEXTROSE 5% 100 ML IV SCH ×3 (02:14→17:09)
[2022-08-22] MEDS: LOPERAMIDE HCL 2 MG CAP PO PRN ×2 (02:30→08:42)
[2022-08-22] MEDS ORDERED: D5W AND NSS 1,000 ML IV SCH (02:30)
[2022-08-22] MEDS: LEVOTHYROXINE SODIUM 137 MCG TABLET PO SCH (06:30)
[2022-08-22 07:45] LABS: Calcium 6.9 mg/dl (8.6-10.3); Creatinine Clr Calc Pharmacy 66.1 ml/min; Est GFR (African American) 98.3 ml/min; Est GFR (Non-African American) 84.8 ml/min; Magnesium 1.5 mg/dl (1.7-2.4); Potassium 3.6 mmol/L (3.5-5.1)
[2022-08-22 07:53] LABS: Hematocrit (blood only) 38.5 % (37.0-47.0); Hemoglobin 12.6 g/dl (12.0-16.0); Mean Corpuscular Hemoglobin 32.4 pg (25.0-34.0); Mean Corpuscular Hgb Conc 32.7 g/dL (32.0-36.0); Mean Platelet Volume 9.8 fL (9.4-12.4); Platelet Count 230 K/uL (130-400); RDW Coefficient of Variation 14.4 % (11.5-14.5); RDW Standard Deviation 51.7 fL (36.4-46.3); Red Blood Count 3.89 M/uL (4.20-5.40); White Blood Count 5.58 K/ul (4.8-10.8)
[2022-08-22] MEDS ORDERED: STAT IV STA (09:18)
[2022-08-22] MEDS ORDERED: CALCIUM GLUCONATE 10% 1,000 MG in DEXTROSE 5% 50 ML IV ONE (09:18)
[2022-08-22] MEDS: ROSUVASTATIN CALCIUM 5 MG TAB PO SCH (09:28)
[2022-08-22] MEDS: CHOLESTYRAMINE LIGHT 4 GM PKT PO SCH ×2 (10:17→23:22)
[2022-08-22] MEDS: LOPERAMIDE HCL 2 MG CAP PO SCH ×3 (11:32→20:14)
[2022-08-22] MEDS: ADVANCED PROBIOTIC 1250 MG CAPSULE PO SCH (11:33)
[2022-08-22] MEDS: MAGNESIUM SULFATE / D5W 1 GM/100 ML BAG IV SCH ×2 (11:33→13:43)
[2022-08-22] MEDS: ATENOLOL 25 MG TABLET PO SCH (11:37)
[2022-08-22] MEDS: PANTOprazole 40 MG TAB PO SCH ×2 (11:38→20:11)
[2022-08-22] MEDS: HEPARIN SOD 5,000 UNIT/0.5 ML VIAL SQ SCH ×2 (11:39→20:11)
--- NOTE | 2022-08-22 14:49 | Surgery Progress Note ---
I have seen and examined this patient with the surgical PA. I agree with the plan. Date of Service August 22, 2022 Assessment & Plan (1) Astrovirus gastroenteritis: Plan: Patient here w/ acute diverticulitis and while here stool studies + for astrovirus Vitals stable and pt afebrile She is having ongoing diarrhea. GI saw yesterday and rec'd full liquids and anti-diarrheals prn Pain appears to be primarily on the R side We will advance to low fiber and see how she fairs Continue IV abx while in house. appears diverticulitis not causing her pain/symptoms at this time No plans for surgical intervention indicated at this time, will follow Has outpt colonoscopy scheduled for mid September Pt seen/examined with Dr. Lima (2) Acute diverticulitis: Admission and Anticipated Discharge Date Admission Date: August 18, 2022 Subjective Feels tired. Had multiple bouts of diarrhea last night. No nausea/vomiting. Tolerating fulls. Physical Exam Physical Exam: tired appearing Gastrointestinal (Abdomen): Percussion/Palpation: + abdomen tender (R sided discomfort to palpation) and abdomen soft Results & Data Vital Signs (Past 12 Hours) Vital Signs Temp Pulse Pulse Resp BP Pulse Ox O2 Del Method 08/22/22 11:29 36.6 C 78 18 136/70 95 Room Air 08/22/22 10:00 77 08/22/22 08:00 36.7 C 81 18 118/71 95 Room Air PG Care Time/CCT Total # of Minutes Spent Total Time Spent with Patient: Total time spent is greater than 50% in coordination of care (as documented) at patient's floor/unit and/or counseling patient: Coding Level of Care Code 35091 SUB INP/OBS CARE 04/25MIN Diagnoses Astrovirus gastroenteritis A08.32 Acute diverticulitis K57.92
--- NOTE | 2022-08-22 16:44 | Hospitalist Progress Note ---
Date of Service August 22, 2022 Assessment & Plan (1) Nausea vomiting and diarrhea: Plan: Acute diverticulitis with microperforation --CT ABD:Mild acute diverticulitis involving the proximal sigmoid colon. There is a small focus of microperforation adjacent to this diverticulitis. However, no abscess identified. No evidence for bowel obstruction. Normal appendix. -- Blood cultures: No growth to date --Continue IV Zosyn --Continue gentle IV fluids--discontinue as able Pain control as needed Appreciate surgery input Needs outpatient colonoscopy Advance to low fiber diet today Gastroenteritis Secondary to astrovirus infection Stool studies negative for C. difficile, positive for astrovirus Recheck stool for C. difficile given persistent diarrhea Appreciate GI input Continue cholestyramine, Imodium as needed Hypoglycemia Due to poor oral intake Continue gentle IV fluids Right rib fractures Incidental finding on CT --CT:Subacute/healing right lateral sixth and seventh rib fractures. There is also a subacute subcutaneous hematoma/contusion within the right gluteal region. Incentive spirometry Patient admits t a fall about a month ago. Fall precautions (2) Hiatal hernia: Plan: Continue PPI (3) Hypomagnesemia: Plan: Hypokalemia Hypocalcemia Replete electrolytes as needed Check ionized calcium (4) Tachy-chintan syndrome: Plan: s/p dual chamber pacemaker Continue Cardizem (5) Status post biventricular pacemaker: (6) CAD in [place] artery: Plan: Continue aspirin, statin (7) Hypertension: Plan: Continue home medications (8) Dyslipidemia: Plan: On statin (9) Hypothyroidism: Plan: Normal TSH Continue levothyroxine (10) History of pulmonary embolism: (11) History of DVT (deep vein thrombosis): (12) S/P IVC filter: Plan: Currently not on chronic anticoagulation DVT Px: Heparin SQ CODE STATUS: Full code Admission and Anticipated Discharge Date Admission Date: August 18, 2022 Subjective Patient is seen and examined at bedside Still has diarrhea associated with abdominal cramps No nausea, vomiting today Denies any chest pain, dyspnea Review of Systems 2 Review of Systems: All systems reviewed & are unremarkable except as noted in Subjective Physical Exam Physical Exam: Physical Exam: Vitals signs as noted above General Appearance:Moderately built and nourished, no apparent distress Head: normocephalic, Atraumatic Eyes: normal inspection, EOMI Neck: supple, Trachea midline Respiratory/Chest: Normal breath sounds, CTA, No accessory muscle use Cardiovascular: S1, S2, No murmur Abdomen/GI:Soft, mild tender, Bowel sounds present Extremities/Musculoskeletal:normal inspection, Trace edema Neurologic/Psych:AAOX3, grossly no focal neurological deficits Skin: normal color, warm Results & Data Results & Data Vital Signs (Past 12 Hours) Vital Signs Temp Pulse Pulse Resp BP Pulse Ox O2 Del Method 08/22/22 15:56 36.6 C 85 18 146/73 H 96 Room Air 08/22/22 11:29 36.6 C 78 18 136/70 95 Room Air 08/22/22 10:00 77 08/22/22 08:00 36.7 C 81 18 118/71 95 Room Air Laboratory Results Short CBC 08/22/22 Range/Units 07:00 WBC 5.58 (4.8-10.8) K/ul Hgb 12.6 (12.0-16.0) g/dl Hct 38.5 (37.0-47.0) % Plt Count 230 (130-400) K/uL BMP 08/22/22 07:00 Sodium 144 Potassium 3.6 Chloride 116 H Carbon Dioxide 23 BUN 4 L Creatinine 0.67 Glucose 91 Calcium 6.9 L (7) Hypertension Hypertension type: unspecified Qualified Code(s): I10 - Essential (primary) hypertension
--- NOTE | 2022-08-22 17:34 | Gastroenterology Progress Note ---
Date of Service August 22, 2022 Assessment & Plan (1) Diarrhea: (2) Acute diverticulitis: Plan: pain resolved and otherwise also clinically improved on antibiotics Plan Will increase Lomotil to 2 tabs QID, scheduled and add cholestyramine BID. May hold (either) if no diarrhea. Continue full liquid diet. Has colonoscopy planned for September. Admission and Anticipated Discharge Date Admission Date: August 18, 2022 Supervising Physician Co-Signing Physician Notes I performed a history and physical examination of the patient today, including specifically on physical exam - soft abdomen. I have discussed the patient's management with the advanced practitioner. Please refer to the nurse practitioner's note for the documented findings and plan of care. Subjective Late entry: pt was seen this morning at 9AM and again w Dr. Garcia at noon today. Was improved yesterday but diarrhea began again last evening after eating full liquids. So far this morning, between 8 and noon had passed about 4 liquid BMs w as sociated cramping. No blood in BMs. Appetite remains good. Review of Systems Review of Systems: ROS: Gen: + fevers, weakness - resolved. Eyes: No eye redness, or pain, no recent vision changes Resp: No SOB, no cough Cardio: No palpitations/irregular beats, no chest pain GI: As per HPI, otherwise normal. : Denies pain on urination Skin: No jaundice, itching or new rashes Physical Exam Constitutional: well developed, well nourished, cooperative and + overweight; no acute distress Eyes: PERRL, conjunctivae normal, anicteric sclerae ENMT: external ear and nose normal, oropharynx normal Neck: trachea midline, no thyromegaly Respiratory: normal respiratory effort, lungs clear to auscultation Cardiovascular: RRR, no murmur, no edema Gastrointestinal (Abdomen): normal bowel sounds, soft, nontender, no hepatosplenomegaly Musculoskeletal: no cyanosis or clubbing, extremities motor strength 5/5 Neurologic: PERRL, EOMI, accommodation nl, no face palsy, no dysarthria Psychiatric: A+Ox3, euthymic affect Lymphatic: no cervical or axillary lymphadenopathy Results & Data Vital Signs (Past 12 Hours) Vital Signs Temp Pulse Pulse Resp BP Pulse Ox O2 Del Method 08/22/22 15:56 36.6 C 85 18 146/73 H 96 Room Air 08/22/22 11:29 36.6 C 78 18 136/70 95 Room Air 08/22/22 10:00 77 08/22/22 08:00 36.7 C 81 18 118/71 95 Room Air Laboratory Results WBC 5.5, Hb 12.6, Hct 38.5, Plts 230, Na 144, K 3.6, Cl 116, CO2 23, BUN 4, Cr 0.8. Diagnostic Findings CTAPw IV 08/18/22: 1. Mild acute diverticulitis involving the proximal sigmoid colon. There is a small focus of microperforation adjacent to this diverticulitis. However, no abscess identified. 2. No evidence for bowel obstruction. 3. Normal appendix. 4. Subacute/healing right lateral sixth and seventh rib fractures. There is also a subacute subcutaneous hematoma/contusion within the right gluteal region. 5. Additional findings as described above. (1) Diarrhea Diarrhea type: unspecified type Qualified Code(s): R19.7 - Diarrhea, unspecified
[2022-08-22] MEDS: dilTIAZem HCL 180 MG CAPCR PO SCH (20:12)
[2022-08-22] MEDS: ASPIRIN 81 MG ECTAB PO SCH (20:13)
[2022-08-23] MEDS: PIPERACILLIN/TAZOBACTAM 4.5 GM in DEXTROSE 5% 100 ML IV SCH ×3 (00:48→16:47)
[2022-08-23] MEDS: LOPERAMIDE HCL 2 MG CAP PO SCH ×4 (03:26→20:29)
[2022-08-23] MEDS: LEVOTHYROXINE SODIUM 137 MCG TABLET PO SCH (05:18)
[2022-08-23 07:47] LABS: BUN Creatinine Ratio 7.5 (10-20); Calcium 7.3 mg/dl (8.6-10.3); Creatinine Clr Calc Pharmacy 66.4 ml/min; Est GFR (African American) 98.3 ml/min; Est GFR (Non-African American) 84.8 ml/min; Magnesium 1.9 mg/dl (1.7-2.4); Potassium 3.4 mmol/L (3.5-5.1)
[2022-08-23] MEDS ORDERED: STAT IV STA (08:55)
[2022-08-23] MEDS ORDERED: POTASSIUM CHLORIDE CRTAB 20 MEQ TABCR PO ONE (08:56)
[2022-08-23] MEDS ORDERED: CALCIUM GLUCONATE 10% 1,000 MG in DEXTROSE 5% 50 ML IV ONE (09:00)
[2022-08-23] MEDS: PANTOprazole 40 MG TAB PO SCH ×2 (09:18→20:30)
[2022-08-23] MEDS: ATENOLOL 25 MG TABLET PO SCH (09:19)
[2022-08-23] MEDS: HEPARIN SOD 5,000 UNIT/0.5 ML VIAL SQ SCH ×2 (09:19→20:30)
[2022-08-23] MEDS: ROSUVASTATIN CALCIUM 5 MG TAB PO SCH (09:19)
[2022-08-23] MEDS: ADVANCED PROBIOTIC 1250 MG CAPSULE PO SCH (09:19)
[2022-08-23] MEDS: CHOLESTYRAMINE LIGHT 4 GM PKT PO SCH ×2 (09:20→22:20)
--- NOTE | 2022-08-23 14:16 | Hospitalist Progress Note ---
Date of Service August 23, 2022 Assessment & Plan (1) Nausea vomiting and diarrhea: Plan: Acute diverticulitis with microperforation --CT ABD:Mild acute diverticulitis involving the proximal sigmoid colon. There is a small focus of microperforation adjacent to this diverticulitis. However, no abscess identified. No evidence for bowel obstruction. Normal appendix. -- Blood cultures: No growth to date --Continue IV Zosyn --Received IV fluids Pain control as needed Appreciate surgery input Needs outpatient colonoscopy Tolerating low fiber diet Gastroenteritis Secondary to astrovirus infection Stool studies negative for C. difficile, positive for astrovirus Recheck stool for C. difficile given persistent diarrhea Appreciate GI input Continue cholestyramine, Imodium as needed Outpatient colonoscopy scheduled in September Consider adding Lomotil per GI IV fluids as needed Hypoglycemia Due to poor oral intake Resolved Right rib fractures Incidental finding on CT --CT:Subacute/healing right lateral sixth and seventh rib fractures. There is also a subacute subcutaneous hematoma/contusion within the right gluteal region. Incentive spirometry Patient admits t a fall about a month ago. Fall precautions (2) Hiatal hernia: Plan: Continue PPI (3) Hypomagnesemia: Plan: Hypokalemia Hypocalcemia Replete electrolytes as needed Ionized calcium low (4) Tachy-chintan syndrome: Plan: s/p dual chamber pacemaker Continue Cardizem (5) Status post biventricular pacemaker: (6) CAD in [place] artery: Plan: Continue aspirin, statin (7) Hypertension: Plan: Continue home medications (8) Dyslipidemia: Plan: On statin (9) Hypothyroidism: Plan: Normal TSH Continue levothyroxine (10) History of pulmonary embolism: (11) History of DVT (deep vein thrombosis): (12) S/P IVC filter: Plan: Currently not on chronic anticoagulation DVT Px: Heparin SQ CODE STATUS: Full code Disposition PT OT prior to discharge Admission and Anticipated Discharge Date Admission Date: August 18, 2022 Subjective Patient is seen and examined at bedside Diarrhea slowly improving Less abdominal pain today Tolerating low fiber diet No new complaints Denies any chest pain, dyspnea, nausea, vomiting Review of Systems Review of Systems: All systems reviewed & are unremarkable except as noted in Subjective Physical Exam Physical Exam: Physical Exam: Vitals signs as noted above General Appearance:Moderately built and nourished, no apparent distress Head: normocephalic, Atraumatic Eyes: normal inspection, EOMI Neck: supple, Trachea midline Respiratory/Chest: Normal breath sounds, CTA, No accessory muscle use Cardiovascular: S1, S2, No murmur Abdomen/GI:Soft, mild tender, Bowel sounds present Extremities/Musculoskeletal:normal inspection, Trace edema Neurologic/Psych:AAOX3, grossly no focal neurological deficits Skin: normal color, warm Results & Data Results & Data Vital Signs (Past 12 Hours) Vital Signs Temp Pulse Pulse Resp BP BP Pulse Ox 08/23/22 11:29 36.5 C 70 20 122/74 93 08/23/22 07:56 36.6 C 75 18 136/81 93 08/23/22 07:50 70 08/23/22 04:00 36.6 C 82 18 112/66 92 O2 Del Method 08/23/22 11:29 Room Air 08/23/22 07:56 Room Air 08/23/22 07:50 08/23/22 04:00 Room Air Laboratory Results BMP 08/23/22 06:45 Sodium 143 Potassium 3.4 L Chloride 113 H Carbon Dioxide 25 BUN 5 L Creatinine 0.67 Glucose 84 Calcium 7.3 L (7) Hypertension Hypertension type: unspecified Qualified Code(s): I10 - Essential (primary) hypertension
[2022-08-23] MEDS: ASPIRIN 81 MG ECTAB PO SCH (20:26)
[2022-08-23] MEDS: dilTIAZem HCL 180 MG CAPCR PO SCH (20:29)
[2022-08-24] MEDS: PIPERACILLIN/TAZOBACTAM 4.5 GM in DEXTROSE 5% 100 ML IV SCH ×3 (02:00→16:10)
[2022-08-24] MEDS: LOPERAMIDE HCL 2 MG CAP PO SCH ×4 (04:03→20:40)
[2022-08-24 06:21] LABS: Hematocrit (blood only) 39.8 % (37.0-47.0); Hemoglobin 13.4 g/dl (12.0-16.0); Mean Corpuscular Hemoglobin 32.4 pg (25.0-34.0); Mean Corpuscular Hgb Conc 33.7 g/dL (32.0-36.0); Mean Corpuscular Volume 96.4 fL (80.0-100.0); Mean Platelet Volume 9.3 fL (9.4-12.4); Platelet Count 323 K/uL (130-400); RDW Coefficient of Variation 14.4 % (11.5-14.5); Red Blood Count 4.13 M/uL (4.20-5.40); White Blood Count 5.93 K/ul (4.8-10.8)
[2022-08-24] MEDS: LEVOTHYROXINE SODIUM 137 MCG TABLET PO SCH (06:33)
[2022-08-24] MEDS: ONDANSETRON INJ 2 MG/ML 2 ML VIAL IV PRN (06:33)
[2022-08-24 06:41] LABS: BUN Creatinine Ratio 8.2 (10-20); Calcium 8.1 mg/dl (8.6-10.3); Creatinine Clr Calc Pharmacy 60.9 ml/min; Est GFR (African American) 92.1 ml/min; Est GFR (Non-African American) 79.4 ml/min; Magnesium 1.7 mg/dl (1.7-2.4); Potassium 3.9 mmol/L (3.5-5.1)
[2022-08-24] MEDS ORDERED: MAGNESIUM SULFATE / D5W 1 GM/100 ML BAG IV ONE (07:54)
--- NOTE | 2022-08-24 07:54 | Hospitalist Progress Note ---
Date of Service August 24, 2022 Assessment & Plan (1) Nausea vomiting and diarrhea: Plan: Acute diverticulitis with microperforation --CT ABD:Mild acute diverticulitis involving the proximal sigmoid colon. There is a small focus of microperforation adjacent to this diverticulitis. However, no abscess identified. No evidence for bowel obstruction. Normal appendix. 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 difficile, positive for astrovirus Recheck stool for C. difficile given persistent diarrhea Appreciate GI input Continue cholestyramine, Imodium as needed Outpatient colonoscopy scheduled in September Consider adding Lomotil per GI IV fluids as needed Hypoglycemia Due to poor oral intake Resolved Right rib fractures Incidental finding on CT --CT:Subacute/healing right lateral sixth and seventh rib fractures. There is also a subacute subcutaneous hematoma/contusion within the right gluteal region. Incentive spirometry Patient admits to a fall about a month ago. 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: Plan: Currently not on chronic anticoagulation DVT Px: Heparin SQ CODE STATUS: Full code Disposition PT OT prior to discharge Admission and Anticipated Discharge Date Admission Date: August 18, 2022 Subjective Patient is seen in follow up of diverticulitis, + astrovirus infection Diarrhea slowly improving Less abdominal pain today Tolerating small amount of low fiber diet No new complaints Denies any chest pain, dyspnea, nausea, vomiting Review of Systems Review of Systems: All systems reviewed & are unremarkable except as noted in Subjective Physical Exam Physical Exam: General Appearance:Moderately built and nourished, no apparent distress Head: normocephalic, Atraumatic Eyes: normal inspection, EOMI Neck: supple Respiratory/Chest: Normal breath sounds, CTA, No accessory muscle use Cardiovascular: S1, S2, No murmur Abdomen/GI:Soft, mild tender, Bowel sounds present Extremities/Musculoskeletal:normal inspection, Trace edema Neurologic/Psych: AAOX3, no facial asymmetry, speech fluent, moves extremities Skin: normal color, warm Results & Data Results & Data Vital Signs (Past 12 Hours) Vital Signs Temp Pulse Pulse Resp BP Pulse Ox O2 Del Method 08/24/22 07:41 36.7 C 73 20 124/74 93 Room Air 08/24/22 07:09 77 08/24/22 04:00 36.6 C 77 18 124/70 92 Room Air 08/23/22 20:00 Room Air 08/23/22 22:04 79 08/23/22 22:00 36.6 C 74 18 148/69 H 95 Room Air Laboratory Results 08/24/22 08/24/22 Range/Units 05:45 05:45 WBC 5.93 (4.8-10.8) K/ul RBC 4.13 L (4.20-5.40) M/uL Hgb 13.4 (12.0-16.0) g/dl Hct 39.8 (37.0-47.0) % MCV 96.4 (80.0-100.0) fL MCH 32.4 (25.0-34.0) pg MCHC 33.7 (32.0-36.0) g/dL RDW Std Deviation 51.0 H (36.4-46.3) fL RDW Coeff of Agnes 14.4 (11.5-14.5) % Plt Count 323 (130-400) K/uL MPV 9.3 L (9.4-12.4) fL Sodium 143 (136-145) mmol/L Potassium 3.9 (3.5-5.1) mmol/L Chloride 113 H (98-107) mmol/L Carbon Dioxide 24 (21-32) mmol/L Anion Gap 6 (3-11) BUN 6 (6-23) mg/dl Creatinine 0.73 (0.6-1.2) mg/dl Est Cr Clr Drug Dosing 60.9 ml/min Est GFR ( Amer) 92.1 ml/min Est GFR (Non-Af Amer) 79.4 ml/min BUN/Creatinine Ratio 8.2 L (10-20) Glucose 90 (70-99(Fasting)) mg/dl Calcium 8.1 L (8.6-10.3) mg/dl Magnesium 1.7 (1.7-2.4) mg/dl Medications Administered Current Inpatient Medications Acetaminophen (Acetaminophen 325 Mg Tab) 650 mg PO Q4H PRN PRN Reason: Moderate Pain (Scale 4, 5, 6) Stop: 09/17/22 13:01 Last Admin: 08/20/22 21:53 Dose: 650 mg Aspirin (Aspirin 81 Mg Ectab) 81 mg PO HS [facility] Stop: 09/17/22 20:59 Last Admin: 08/23/22 20:26 Dose: 81 mg Atenolol (Atenolol 25 Mg Tablet) 12.5 mg PO DAILY [facility] Stop: 09/19/22 08:59 Last Admin: 08/23/22 09:19 Dose: 12.5 mg Cholestyramine Resin (Cholestyramine Light 4 Gm Pkt) 4 gm PO BID@1000,2200 [facility] Stop: 09/21/22 09:59 Last Admin: 08/23/22 22:20 Dose: 4 gm Diltiazem HCl (Diltiazem Hcl 180 Mg Capcr) 360 mg PO QPM [facility] Stop: 09/17/22 20:59 Last Admin: 08/23/22 20:29 Dose: 360 mg Heparin Sodium (Porcine) (Heparin Sod 5,000 Unit/0.5 Ml Vial) 5,000 units SQ Q12 [facility] Stop: 09/17/22 20:59 Last Admin: 08/23/22 20:30 Dose: 5,000 units Piperacillin Sod/Tazobactam (Sod 4.5 gm/ Dextrose) 120 mls @ 30 mls/hr IV Q8H [facility]; Protocol Stop: 08/28/22 20:59 Last Infusion: 08/24/22 06:13 Dose: Infused Promethazine HCl 6.25 mg/ (Sodium Chloride) 50.25 mls @ 201 mls/hr IV Q6H PRN PRN Reason: Nausea And Vomiting Stop: 09/18/22 16:47 Last Infusion: 08/20/22 14:22 Dose: Infused Lactobacillus Acidophilus (Advanced Probiotic 1250 Mg Capsule) 2 cap PO DAILY [facility] Stop: 09/21/22 10:59 Last Admin: 08/23/22 09:19 Dose: 2 cap Levothyroxine Sodium (Levothyroxine Sodium 137 Mcg Tablet) 137 mcg PO DAILYBB [facility] Stop: 09/18/22 06:29 Last Admin: 08/24/22 06:33 Dose: 137 mcg Loperamide HCl (Loperamide Hcl 2 Mg Cap) 4 mg PO Q6H [facility] Stop: 09/21/22 09:14 Last Admin: 08/24/22 04:03 Dose: 4 mg Ondansetron HCl (Ondansetron Inj 2 Mg/Ml 2 Ml Vial) 4 mg IV Q4H PRN PRN Reason: Nausea And Vomiting Stop: 09/17/22 13:01 Last Admin: 08/24/22 06:33 Dose: 4 mg Pantoprazole Sodium (Pantoprazole 40 Mg Tab) 40 mg PO BID [facility] Stop: 09/17/22 20:59 Last Admin: 08/23/22 20:30 Dose: 40 mg Rosuvastatin Calcium (Rosuvastatin Calcium 5 Mg Tab) 5 mg PO DAILY [facility] Stop: 09/18/22 08:59 Last Admin: 08/23/22 09:19 Dose: 5 mg (7) Hypertension Hypertension type: unspecified Qualified Code(s): I10 - Essential (primary) hypertension
[2022-08-24] MEDS: HEPARIN SOD 5,000 UNIT/0.5 ML VIAL SQ SCH ×2 (08:57→20:40)
[2022-08-24] MEDS: ROSUVASTATIN CALCIUM 5 MG TAB PO SCH (08:57)
[2022-08-24] MEDS: ADVANCED PROBIOTIC 1250 MG CAPSULE PO SCH (08:57)
[2022-08-24] MEDS: ATENOLOL 25 MG TABLET PO SCH (08:57)
[2022-08-24] MEDS: PANTOprazole 40 MG TAB PO SCH ×2 (08:57→20:40)
[2022-08-24] MEDS: CHOLESTYRAMINE LIGHT 4 GM PKT PO SCH ×2 (09:02→23:30)
[2022-08-24] MEDS: ASPIRIN 81 MG ECTAB PO SCH (20:40)
[2022-08-24] MEDS: dilTIAZem HCL 180 MG CAPCR PO SCH (20:40)
[2022-08-25] MEDS: PIPERACILLIN/TAZOBACTAM 4.5 GM in DEXTROSE 5% 100 ML IV SCH ×3 (01:56→16:04)
[2022-08-25] MEDS: LOPERAMIDE HCL 2 MG CAP PO SCH ×4 (01:56→20:12)
[2022-08-25] MEDS: LEVOTHYROXINE SODIUM 137 MCG TABLET PO SCH (05:54)
[2022-08-25 07:21] LABS: Hematocrit (blood only) 41.2 % (37.0-47.0); Hemoglobin 13.5 g/dl (12.0-16.0); Mean Corpuscular Hemoglobin 31.8 pg (25.0-34.0); Mean Corpuscular Hgb Conc 32.8 g/dL (32.0-36.0); Mean Corpuscular Volume 96.9 fL (80.0-100.0); Mean Platelet Volume 9.3 fL (9.4-12.4); Platelet Count 358 K/uL (130-400); RDW Coefficient of Variation 14.6 % (11.5-14.5); RDW Standard Deviation 51.7 fL (36.4-46.3); Red Blood Count 4.25 M/uL (4.20-5.40); White Blood Count 6.31 K/ul (4.8-10.8)
[2022-08-25 07:46] LABS: BUN Creatinine Ratio 9.1 (10-20); Calcium 7.9 mg/dl (8.6-10.3); Creatinine Clr Calc Pharmacy 57.3 ml/min; Est GFR (African American) 86.3 ml/min; Est GFR (Non-African American) 74.5 ml/min; Magnesium 1.7 mg/dl (1.7-2.4); Phosphorus 1.9 mg/dl (2.5-4.9); Potassium 3.8 mmol/L (3.5-5.1)
[2022-08-25] MEDS: ATENOLOL 25 MG TABLET PO SCH (09:29)
[2022-08-25] MEDS: ADVANCED PROBIOTIC 1250 MG CAPSULE PO SCH (09:30)
[2022-08-25] MEDS: HEPARIN SOD 5,000 UNIT/0.5 ML VIAL SQ SCH ×2 (09:30→20:11)
[2022-08-25] MEDS: PANTOprazole 40 MG TAB PO SCH ×2 (09:30→20:13)
[2022-08-25] MEDS: ROSUVASTATIN CALCIUM 5 MG TAB PO SCH (09:31)
[2022-08-25] MEDS: ONDANSETRON INJ 2 MG/ML 2 ML VIAL IV PRN ×2 (09:32→20:09)
[2022-08-25] MEDS: CHOLESTYRAMINE LIGHT 4 GM PKT PO SCH ×2 (09:32→21:49)
[2022-08-25] MEDS ORDERED: MAGNESIUM SULFATE / D5W 1 GM/100 ML BAG IV ONE (09:42)
[2022-08-25] MEDS ORDERED: POTASSIUM PHOS 3 MMOL/1 ML INFUSION IV STA (09:43)
[2022-08-25] MEDS ORDERED: POTASSIUM PHOSPHATE 6 MMOL in 0.9 % SODIUM CHLORIDE 100 ML IV ONE (10:00)
--- NOTE | 2022-08-25 10:07 | Hospitalist Progress Note ---
Date of Service August 25, 2022 Assessment & Plan (1) Nausea vomiting and diarrhea: Plan: Acute diverticulitis with microperforation --CT ABD:Mild acute diverticulitis involving the proximal sigmoid colon. There is a small focus of microperforation adjacent to this diverticulitis. However, no abscess identified. No evidence for bowel obstruction. Normal appendix. 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 difficile, positive for astrovirus Recheck stool for C. difficile given persistent diarrhea Appreciate GI input Continue cholestyramine, Imodium as needed Outpatient colonoscopy scheduled in September Consider adding Lomotil per GI IV fluids as needed Hypoglycemia Due to poor oral intake Resolved Right rib fractures Incidental finding on CT --CT:Subacute/healing right lateral sixth and seventh rib fractures. There is also a subacute subcutaneous hematoma/contusion within the right gluteal region. Incentive spirometry Patient admits to a fall about a month ago. 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: Plan: Currently not on chronic anticoagulation DVT Px: Heparin SQ CODE STATUS: Full code Disposition PT OT prior to discharge Admission and Anticipated Discharge Date Admission Date: August 18, 2022 Subjective Patient is seen in follow up of diverticulitis, + astrovirus infection Diarrhea slowly improving Less abdominal pain today but has nausea and feels weak and tired Tolerating small amount of low fiber diet Denies any fever, chills, chest pain, dyspnea Review of Systems Review of Systems: All systems reviewed & are unremarkable except as noted in Subjective Physical Exam Physical Exam: General Appearance:Moderately built and nourished, no apparent distress Head: normocephalic, Atraumatic Eyes: normal inspection, EOMI Neck: supple Respiratory/Chest: Normal breath sounds, CTA, No accessory muscle use Cardiovascular: S1, S2, No murmur Abdomen/GI:Soft, mild tender, Bowel sounds present Extremities/Musculoskeletal:normal inspection, Trace edema Neurologic/Psych: AAOX3, no facial asymmetry, speech fluent, moves extremities Skin: normal color, warm Results & Data Results & Data Vital Signs (Past 12 Hours) Vital Signs Temp Pulse Pulse Resp BP Pulse Ox O2 Del Method 08/25/22 07:50 91 H 08/25/22 07:34 36.5 C 100 H 18 127/82 96 Room Air 08/25/22 04:52 36.7 C 94 H 20 155/93 H 94 Room Air 08/24/22 23:39 37.0 C 94 H 20 153/89 H 95 Room Air Laboratory Results 08/25/22 08/25/22 Range/Units 06:52 06:52 WBC 6.31 (4.8-10.8) K/ul RBC 4.25 (4.20-5.40) M/uL Hgb 13.5 (12.0-16.0) g/dl Hct 41.2 (37.0-47.0) % MCV 96.9 (80.0-100.0) fL MCH 31.8 (25.0-34.0) pg MCHC 32.8 (32.0-36.0) g/dL RDW Std Deviation 51.7 H (36.4-46.3) fL RDW Coeff of Agnes 14.6 H (11.5-14.5) % Plt Count 358 (130-400) K/uL MPV 9.3 L (9.4-12.4) fL Sodium 143 (136-145) mmol/L Potassium 3.8 (3.5-5.1) mmol/L Chloride 113 H (98-107) mmol/L Carbon Dioxide 24 (21-32) mmol/L Anion Gap 6 (3-11) BUN 7 (6-23) mg/dl Creatinine 0.77 (0.6-1.2) mg/dl Est Cr Clr Drug Dosing 57.3 ml/min Est GFR ( Amer) 86.3 ml/min Est GFR (Non-Af Amer) 74.5 ml/min BUN/Creatinine Ratio 9.1 L (10-20) Glucose 78 (70-99(Fasting)) mg/dl Calcium 7.9 L (8.6-10.3) mg/dl Phosphorus 1.9 L (2.5-4.9) mg/dl Magnesium 1.7 (1.7-2.4) mg/dl Medications Administered Current Inpatient Medications Acetaminophen (Acetaminophen 325 Mg Tab) 650 mg PO Q4H PRN PRN Reason: Moderate Pain (Scale 4, 5, 6) Stop: 09/17/22 13:01 Last Admin: 08/20/22 21:53 Dose: 650 mg Aspirin (Aspirin 81 Mg Ectab) 81 mg PO HS [facility] Stop: 09/17/22 20:59 Last Admin: 08/24/22 20:40 Dose: 81 mg Atenolol (Atenolol 25 Mg Tablet) 12.5 mg PO DAILY [facility] Stop: 09/19/22 08:59 Last Admin: 08/25/22 09:29 Dose: 12.5 mg Cholestyramine Resin (Cholestyramine Light 4 Gm Pkt) 4 gm PO BID@1000,2200 [facility] Stop: 09/21/22 09:59 Last Admin: 08/25/22 09:32 Dose: 4 gm Diltiazem HCl (Diltiazem Hcl 180 Mg Capcr) 360 mg PO QPM [facility] Stop: 09/17/22 20:59 Last Admin: 08/24/22 20:40 Dose: 360 mg Heparin Sodium (Porcine) (Heparin Sod 5,000 Unit/0.5 Ml Vial) 5,000 units SQ Q12 [facility] Stop: 09/17/22 20:59 Last Admin: 08/25/22 09:30 Dose: 5,000 units Piperacillin Sod/Tazobactam (Sod 4.5 gm/ Dextrose) 120 mls @ 30 mls/hr IV Q8H [facility]; Protocol Stop: 08/28/22 20:59 Last Admin: 08/25/22 09:31 Dose: 30 mls/hr Promethazine HCl 6.25 mg/ (Sodium Chloride) 50.25 mls @ 201 mls/hr IV Q6H PRN PRN Reason: Nausea And Vomiting Stop: 09/18/22 16:47 Last Infusion: 08/20/22 14:22 Dose: Infused Magnesium Sulfate/Dextrose (Magnesium Sulfate / D5w) 1 gm in 100 mls @ 50 mls/hr IV ONE ONE Stop: 08/25/22 11:41 Potassium Phosphate 6 mmol/ (Sodium Chloride) 102 mls @ 88 mls/hr IV TODAY@1000 ONE Stop: 08/25/22 11:09 Lactobacillus Acidophilus (Advanced Probiotic 1250 Mg Capsule) 2 cap PO DAILY [facility] Stop: 09/21/22 10:59 Last Admin: 08/25/22 09:30 Dose: 2 cap Levothyroxine Sodium (Levothyroxine Sodium 137 Mcg Tablet) 137 mcg PO DAILYBB REPLACED BY [facility] Stop: 09/18/22 06:29 Last Admin: 08/25/22 05:54 Dose: 137 mcg Loperamide HCl (Loperamide Hcl 2 Mg Cap) 4 mg PO Q6H REPLACED BY [facility] Stop: 09/21/22 09:14 Last Admin: 08/25/22 09:31 Dose: 4 mg Ondansetron HCl (Ondansetron Inj 2 Mg/Ml 2 Ml Vial) 4 mg IV Q4H PRN PRN Reason: Nausea And Vomiting Stop: 09/17/22 13:01 Last Admin: 08/25/22 09:32 Dose: 4 mg Pantoprazole Sodium (Pantoprazole 40 Mg Tab) 40 mg PO BID REPLACED BY [facility] Stop: 09/17/22 20:59 Last Admin: 08/25/22 09:30 Dose: 40 mg Potassium Phosphate (Pot Phosphate Monobasic W/ Sod Tab) 1 tab PO QID REPLACED BY [facility] Stop: 09/24/22 12:59 Rosuvastatin Calcium (Rosuvastatin Calcium 5 Mg Tab) 5 mg PO DAILY [facility]PLACED BY [facility] Stop: 09/18/22 08:59 Last Admin: 08/25/22 09:31 Dose: 5 mg (7) Hypertension Hypertension type: unspecified Qualified Code(s): I10 - Essential (primary) hypertension
[2022-08-25] MEDS: POT PHOSPHATE MONOBASIC W/ SOD TAB PO SCH ×3 (12:36→20:13)
[2022-08-25] MEDS: ASPIRIN 81 MG ECTAB PO SCH (20:11)
[2022-08-25] MEDS: dilTIAZem HCL 180 MG CAPCR PO SCH (20:11)
[2022-08-26] MEDS: PIPERACILLIN/TAZOBACTAM 4.5 GM in DEXTROSE 5% 100 ML IV SCH ×2 (00:04→08:16)
[2022-08-26] MEDS: ONDANSETRON INJ 2 MG/ML 2 ML VIAL IV PRN (02:26)
[2022-08-26] MEDS: LOPERAMIDE HCL 2 MG CAP PO SCH ×4 (02:27→20:42)
[2022-08-26] MEDS: LEVOTHYROXINE SODIUM 137 MCG TABLET PO SCH (05:40)
[2022-08-26 07:24] LABS: BUN Creatinine Ratio 13.2 (10-20); Calcium 7.7 mg/dl (8.6-10.3); Creatinine Clr Calc Pharmacy 49.4 ml/min; Est GFR (African American) 70.5 ml/min; Est GFR (Non-African American) 60.9 ml/min; Magnesium 1.7 mg/dl (1.7-2.4); Phosphorus 2.7 mg/dl (2.5-4.9); Potassium 4.1 mmol/L (3.5-5.1)
[2022-08-26] MEDS ORDERED: MAGNESIUM SULFATE / D5W 1 GM/100 ML BAG IV ONE (07:49)
--- NOTE | 2022-08-26 07:50 | Hospitalist Progress Note ---
Date of Service August 26, 2022 Assessment & Plan (1) Nausea vomiting and diarrhea: Plan: Acute diverticulitis with microperforation --CT ABD:Mild acute diverticulitis involving the proximal sigmoid colon. There is a small focus of microperforation adjacent to this diverticulitis. However, no abscess identified. No evidence for bowel obstruction. Normal appendix. 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 difficile, positive for astrovirus Recheck stool for C. difficile given persistent diarrhea Appreciate GI input Continue cholestyramine, Imodium as needed probiotics Outpatient colonoscopy scheduled in September Consider adding Lomotil per GI IV fluids as needed Hypoglycemia Due to poor oral intake Resolved Right rib fractures Incidental finding on CT --CT:Subacute/healing right lateral sixth and seventh rib fractures. There is also a subacute subcutaneous hematoma/contusion within the right gluteal region. Incentive spirometry Patient admits to a fall about a month ago. 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: Plan: Currently not on chronic anticoagulation DVT Px: Heparin SQ CODE STATUS: Full code Disposition PT OT prior to discharge Admission and Anticipated Discharge Date Admission Date: August 18, 2022 Subjective Patient is seen in follow up of diverticulitis, + astrovirus infection Diarrhea slowly improving however overnight had 4 BMs - which is now worse and she feels tired and frustrated abdomen tender but overall improved Tolerating small amount of low fiber diet Denies any fever, chills, chest pain, dyspnea Review of Systems Review of Systems: All systems reviewed & are unremarkable except as noted in Subjective Physical Exam Physical Exam: General Appearance:Moderately built and nourished, no apparent distress Head: normocephalic, Atraumatic Eyes: normal inspection, EOMI Neck: supple Respiratory/Chest: Normal breath sounds, CTA, No accessory muscle use Cardiovascular: S1, S2, No murmur Abdomen/GI:Soft, mild tender, Bowel sounds present Extremities/Musculoskeletal:normal inspection, Trace edema Neurologic/Psych: AAOX3, no facial asymmetry, speech fluent, moves extremities Skin: normal color, warm Results & Data Results & Data Vital Signs (Past 12 Hours) Vital Signs Temp Pulse Pulse Resp BP Pulse Ox O2 Del Method 08/26/22 07:27 36.5 C 82 18 116/73 94 Room Air 08/26/22 07:00 85 08/26/22 04:40 37.0 C 83 20 132/74 92 Room Air 08/26/22 00:14 91 H 08/26/22 00:09 37.1 C 94 H 20 142/88 H 93 Room Air 08/25/22 20:20 37.1 C 90 20 152/92 H 94 Room Air Laboratory Results 08/26/22 Range/Units 06:36 Sodium 142 (136-145) mmol/L Potassium 4.1 (3.5-5.1) mmol/L Chloride 112 H (98-107) mmol/L Carbon Dioxide 24 (21-32) mmol/L Anion Gap 6 (3-11) BUN 12 (6-23) mg/dl Creatinine 0.91 (0.6-1.2) mg/dl Est Cr Clr Drug Dosing 49.4 ml/min Est GFR ( Amer) 70.5 ml/min Est GFR (Non-Af Amer) 60.9 ml/min BUN/Creatinine Ratio 13.2 (10-20) Glucose 85 (70-99(Fasting)) mg/dl Calcium 7.7 L (8.6-10.3) mg/dl Phosphorus 2.7 (2.5-4.9) mg/dl Magnesium 1.7 (1.7-2.4) mg/dl Medications Administered Current Inpatient Medications Acetaminophen (Acetaminophen 325 Mg Tab) 650 mg PO Q4H PRN PRN Reason: Moderate Pain (Scale 4, 5, 6) Stop: 09/17/22 13:01 Last Admin: 08/20/22 21:53 Dose: 650 mg Aspirin (Aspirin 81 Mg Ectab) 81 mg PO HS [facility] Stop: 09/17/22 20:59 Last Admin: 08/25/22 20:11 Dose: 81 mg Atenolol (Atenolol 25 Mg Tablet) 12.5 mg PO DAILY [facility] Stop: 09/19/22 08:59 Last Admin: 08/26/22 08:07 Dose: 12.5 mg Cholestyramine Resin (Cholestyramine Light 4 Gm Pkt) 4 gm PO BID@1000,2200 [facility] Stop: 09/21/22 09:59 Last Admin: 08/25/22 21:49 Dose: 4 gm Diltiazem HCl (Diltiazem Hcl 180 Mg Capcr) 360 mg PO QPM [facility] Stop: 09/17/22 20:59 Last Admin: 08/25/22 20:11 Dose: 360 mg Heparin Sodium (Porcine) (Heparin Sod 5,000 Unit/0.5 Ml Vial) 5,000 units SQ Q12 [facility] Stop: 09/17/22 20:59 Last Admin: 08/26/22 08:09 Dose: 5,000 units Piperacillin Sod/Tazobactam (Sod 4.5 gm/ Dextrose) 120 mls @ 30 mls/hr IV Q8H [facility]; Protocol Stop: 08/28/22 20:59 Last Admin: 08/26/22 08:16 Dose: 30 mls/hr Promethazine HCl 6.25 mg/ (Sodium Chloride) 50.25 mls @ 201 mls/hr IV Q6H PRN PRN Reason: Nausea And Vomiting Stop: 09/18/22 16:47 Last Infusion: 08/20/22 14:22 Dose: Infused Lactobacillus Acidophilus (Advanced Probiotic 1250 Mg Capsule) 2 cap PO DAILY [facility] Stop: 09/21/22 10:59 Last Admin: 08/26/22 08:08 Dose: 2 cap Levothyroxine Sodium (Levothyroxine Sodium 137 Mcg Tablet) 137 mcg PO DAILYBB [facility] Stop: 09/18/22 06:29 Last Admin: 08/26/22 05:40 Dose: 137 mcg Loperamide HCl (Loperamide Hcl 2 Mg Cap) 4 mg PO Q6H [facility] Stop: 09/21/22 09:14 Last Admin: 08/26/22 08:08 Dose: 4 mg Ondansetron HCl (Ondansetron Inj 2 Mg/Ml 2 Ml Vial) 4 mg IV Q4H PRN PRN Reason: Nausea And Vomiting Stop: 09/17/22 13:01 Last Admin: 08/26/22 02:26 Dose: 4 mg Pantoprazole Sodium (Pantoprazole 40 Mg Tab) 40 mg PO BID [facility] Stop: 09/17/22 20:59 Last Admin: 08/26/22 08:08 Dose: 40 mg Potassium Phosphate (Pot Phosphate Monobasic W/ Sod Tab) 1 tab PO QID [facility] Stop: 09/24/22 12:59 Last Admin: 08/26/22 08:08 Dose: 1 tab Rosuvastatin Calcium (Rosuvastatin Calcium 5 Mg Tab) 5 mg PO DAILY [facility] Stop: 09/18/22 08:59 Last Admin: 08/26/22 08:07 Dose: 5 mg (7) Hypertension Hypertension type: unspecified Qualified Code(s): I10 - Essential (primary) hypertension
[2022-08-26] MEDS: ATENOLOL 25 MG TABLET PO SCH (08:07)
[2022-08-26] MEDS: ROSUVASTATIN CALCIUM 5 MG TAB PO SCH (08:07)
[2022-08-26] MEDS: ADVANCED PROBIOTIC 1250 MG CAPSULE PO SCH (08:08)
[2022-08-26] MEDS: POT PHOSPHATE MONOBASIC W/ SOD TAB PO SCH (08:08)
[2022-08-26] MEDS: PANTOprazole 40 MG TAB PO SCH ×2 (08:08→20:39)
[2022-08-26] MEDS: HEPARIN SOD 5,000 UNIT/0.5 ML VIAL SQ SCH ×2 (08:09→20:39)
[2022-08-26] MEDS: CHOLESTYRAMINE LIGHT 4 GM PKT PO SCH ×2 (10:23→20:40)
--- NOTE | 2022-08-26 15:00 | Communication Note ---
Date of Service: August 26, 2022 nurse called me, pt wants to stop Zosyn because pt thinks the zosyn caused pt nausea, sick. I saw pt at bedside, pt feels better compare 2 days ago, no fever, some diarrhea, mild abdominal pain, I reviewed pt's labs, normal WBC, PE: S S AO X 3 abd : soft, mild tenderness at LLQ , no rebound pain, no distend, BS +, plan, stop Zosyn, may start Cipro 500mg po bid x 7 days. please call with questions, Thanks.
[2022-08-26] MEDS: CIPROFLOXACIN 500 MG TAB PO SCH (16:51)
[2022-08-26] MEDS: dilTIAZem HCL 180 MG CAPCR PO SCH (20:38)
[2022-08-26] MEDS: ASPIRIN 81 MG ECTAB PO SCH (20:38)
[2022-08-26] MEDS: PROMETHAZINE HCL 6.25 MG in SODIUM CHLORIDE 0.9% 50 ML IV PRN (21:49)
[2022-08-27] MEDS: LOPERAMIDE HCL 2 MG CAP PO SCH ×4 (02:34→21:26)
[2022-08-27] MEDS: ACETAMINOPHEN 325 MG TAB PO PRN ×3 (02:35→21:18)
[2022-08-27] MEDS: LEVOTHYROXINE SODIUM 137 MCG TABLET PO SCH (05:40)
[2022-08-27 08:06] LABS: BUN Creatinine Ratio 14.3 (10-20); Calcium 7.8 mg/dl (8.6-10.3); Creatinine Clr Calc Pharmacy 53.7 ml/min; Est GFR (African American) 77.7 ml/min; Magnesium 1.9 mg/dl (1.7-2.4); Phosphorus 2.3 mg/dl (2.5-4.9); Potassium 4.1 mmol/L (3.5-5.1)
[2022-08-27] MEDS: ATENOLOL 25 MG TABLET PO SCH (08:34)
[2022-08-27] MEDS: ROSUVASTATIN CALCIUM 5 MG TAB PO SCH (08:34)
[2022-08-27] MEDS: CIPROFLOXACIN 500 MG TAB PO SCH ×2 (08:35→21:27)
[2022-08-27] MEDS: PANTOprazole 40 MG TAB PO SCH ×2 (08:35→21:18)
[2022-08-27] MEDS: ADVANCED PROBIOTIC 1250 MG CAPSULE PO SCH (08:35)
[2022-08-27] MEDS: HEPARIN SOD 5,000 UNIT/0.5 ML VIAL SQ SCH ×2 (08:36→21:19)
--- NOTE | 2022-08-27 10:00 | Hospitalist Progress Note ---
Date of Service August 27, 2022 Assessment & Plan (1) Nausea vomiting and diarrhea: Plan: Acute diverticulitis with microperforation --CT ABD:Mild acute diverticulitis involving the proximal sigmoid colon. There is a small focus of microperforation adjacent to this diverticulitis. However, no abscess identified. No evidence for bowel obstruction. Normal appendix. 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 difficile, positive for astrovirus Recheck stool for C. difficile given persistent diarrhea Appreciate GI input Continue cholestyramine, Imodium as needed probiotics Outpatient colonoscopy scheduled in September Consider adding Lomotil per GI IV fluids as needed Hypoglycemia Due to poor oral intake Resolved Right rib fractures Incidental finding on CT --CT:Subacute/healing right lateral sixth and seventh rib fractures. There is also a subacute subcutaneous hematoma/contusion within the right gluteal region. Incentive spirometry Patient admits to a fall about a month ago. Fall precautions (2) Hiatal hernia: Plan: Continue PPI (3) Hypomagnesemia: Plan: Hypokalemia Hypocalcemia Hypophosphatemia Replete electrolytes as needed and monitor (4) Tachy-chintan syndrome: Plan: s/p dual chamber pacemaker Continue Cardizem (5) Status post biventricular pacemaker: (6) CAD in [place] artery: Plan: Continue aspirin, statin (7) Hypertension: Plan: Continue home medications (8) Dyslipidemia: Plan: On statin (9) Hypothyroidism: Plan: Normal TSH Continue levothyroxine (10) History of pulmonary embolism: (11) History of DVT (deep vein thrombosis): (12) S/P IVC filter: Plan: Currently not on chronic anticoagulation DVT Px: Heparin SQ CODE STATUS: Full code Disposition PT OT prior to discharge Admission and Anticipated Discharge Date Admission Date: August 18, 2022 Subjective Patient is seen in follow up of diverticulitis, + astrovirus infection Diarrhea slowly improving - especially now after stopping zosyn She still has significant nausea abdomen tender but overall improved Tolerating small amount of low fiber diet Denies any fever, chills, chest pain, dyspnea Review of Systems Review of Systems: All systems reviewed & are unremarkable except as noted in Subjective Physical Exam Physical Exam: General Appearance:Moderately built and nourished, no apparent distress Head: normocephalic, Atraumatic Eyes: normal inspection, EOMI Neck: supple Respiratory/Chest: Normal breath sounds, CTA, No accessory muscle use Cardiovascular: S1, S2, No murmur Abdomen/GI:Soft, mild tender, Bowel sounds present Extremities/Musculoskeletal:normal inspection, Trace edema Neurologic/Psych: AAOX3, no facial asymmetry, speech fluent, moves extremities Skin: normal color, warm Results & Data Results & Data Vital Signs (Past 12 Hours) Vital Signs Temp Pulse Pulse Resp BP Pulse Ox O2 Del Method 08/27/22 09:05 Room Air 08/27/22 08:12 36.9 C 90 16 114/70 90 Room Air 08/27/22 07:25 78 08/26/22 23:29 37.2 C 95 H 20 135/74 93 Room Air Laboratory Results 08/27/22 Range/Units 07:09 Sodium 141 (136-145) mmol/L Potassium 4.1 (3.5-5.1) mmol/L Chloride 110 H (98-107) mmol/L Carbon Dioxide 25 (21-32) mmol/L Anion Gap 6 (3-11) BUN 12 (6-23) mg/dl Creatinine 0.84 (0.6-1.2) mg/dl Est Cr Clr Drug Dosing 53.7 ml/min Est GFR ( Amer) 77.7 ml/min Est GFR (Non-Af Amer) 67.0 ml/min BUN/Creatinine Ratio 14.3 (10-20) Glucose 82 (70-99(Fasting)) mg/dl Calcium 7.8 L (8.6-10.3) mg/dl Phosphorus 2.3 L (2.5-4.9) mg/dl Magnesium 1.9 (1.7-2.4) mg/dl Medications Administered Current Inpatient Medications Acetaminophen (Acetaminophen 325 Mg Tab) 650 mg PO Q4H PRN PRN Reason: Moderate Pain (Scale 4, 5, 6) Stop: 09/17/22 13:01 Last Admin: 08/27/22 08:41 Dose: 650 mg Aspirin (Aspirin 81 Mg Ectab) 81 mg PO HS [facility] Stop: 09/17/22 20:59 Last Admin: 08/26/22 20:38 Dose: 81 mg Atenolol (Atenolol 25 Mg Tablet) 12.5 mg PO DAILY [facility] Stop: 09/19/22 08:59 Last Admin: 08/27/22 08:34 Dose: 12.5 mg Cholestyramine Resin (Cholestyramine Light 4 Gm Pkt) 4 gm PO BID@1000,2200 [facility] Stop: 09/21/22 09:59 Last Admin: 08/26/22 20:40 Dose: 4 gm Ciprofloxacin (Ciprofloxacin 500 Mg Tab) 500 mg PO BID [facility]; Protocol Stop: 09/05/22 16:59 Last Admin: 08/27/22 08:35 Dose: 500 mg Diltiazem HCl (Diltiazem Hcl 180 Mg Capcr) 360 mg PO QPM [facility] Stop: 09/17/22 20:59 Last Admin: 08/26/22 20:38 Dose: 360 mg Heparin Sodium (Porcine) (Heparin Sod 5,000 Unit/0.5 Ml Vial) 5,000 units SQ Q12 [facility] Stop: 09/17/22 20:59 Last Admin: 08/27/22 08:36 Dose: 5,000 units Promethazine HCl 6.25 mg/ (Sodium Chloride) 50.25 mls @ 201 mls/hr IV Q6H PRN PRN Reason: Nausea And Vomiting Stop: 09/18/22 16:47 Last Infusion: 08/26/22 22:16 Dose: Infused Magnesium Sulfate/Dextrose (Magnesium Sulfate / D5w) 1 gm in 100 mls @ 50 mls/hr IV ONE ONE Stop: 08/27/22 11:58 Lactobacillus Acidophilus (Advanced Probiotic 1250 Mg Capsule) 2 cap PO DAILY [facility] Stop: 09/21/22 10:59 Last Admin: 08/27/22 08:35 Dose: 2 cap Levothyroxine Sodium (Levothyroxine Sodium 137 Mcg Tablet) 137 mcg PO DAILYBB [facility] Stop: 09/18/22 06:29 Last Admin: 08/27/22 05:40 Dose: 137 mcg Loperamide HCl (Loperamide Hcl 2 Mg Cap) 4 mg PO Q6H [facility] Stop: 09/21/22 09:14 Last Admin: 08/27/22 08:36 Dose: 4 mg Ondansetron HCl (Ondansetron Inj 2 Mg/Ml 2 Ml Vial) 4 mg IV Q4H PRN PRN Reason: Nausea And Vomiting Stop: 09/17/22 13:01 Last Admin: 08/26/22 02:26 Dose: 4 mg Pantoprazole Sodium (Pantoprazole 40 Mg Tab) 40 mg PO BID [facility] Stop: 09/17/22 20:59 Last Admin: 08/27/22 08:35 Dose: 40 mg Potassium Phosphate (Pot Phosphate Monobasic W/ Sod Tab) 1 tab PO QID [facility] Stop: 09/24/22 12:59 Last Admin: 08/26/22 08:08 Dose: 1 tab Rosuvastatin Calcium (Rosuvastatin Calcium 5 Mg Tab) 5 mg PO DAILY [facility] Stop: 09/18/22 08:59 Last Admin: 08/27/22 08:34 Dose: 5 mg (7) Hypertension Hypertension type: unspecified Qualified Code(s): I10 - Essential (primary) hypertension
[2022-08-27] MEDS: CHOLESTYRAMINE LIGHT 4 GM PKT PO SCH ×2 (10:09→21:18)
[2022-08-27] MEDS ORDERED: MAGNESIUM SULFATE / D5W 1 GM/100 ML BAG IV ONE (10:30)
[2022-08-27] MEDS: PROMETHAZINE HCL 6.25 MG in SODIUM CHLORIDE 0.9% 50 ML IV PRN (10:50)
[2022-08-27] MEDS: dilTIAZem HCL 180 MG CAPCR PO SCH (21:18)
[2022-08-27] MEDS: ASPIRIN 81 MG ECTAB PO SCH (21:18)
[2022-08-28] MEDS: LOPERAMIDE HCL 2 MG CAP PO SCH ×4 (02:39→19:45)
[2022-08-28] MEDS: LEVOTHYROXINE SODIUM 137 MCG TABLET PO SCH (05:36)
[2022-08-28] MEDS ORDERED: ACETAMINOPHEN 325 MG TAB PO STA (06:01)
--- NOTE | 2022-08-28 06:31 | Communication Note ---
Date of Service: August 28, 2022 Patient complaining of right foot pain/swelling. No recollection of recent trauma. Possible gout attack as per patient. Right foot affected in the past as per RN. AP Acute gout attack Resume home allopurinol (Held on admission for unclear reason) IV Toradol 1 dose Defer decision regarding acute management to AM provider (steroid versus NSAID Rx)
[2022-08-28] MEDS ORDERED: KETOROLAC TROMETHAMINE 15 MG/ML VIAL IV ONE (06:46)
--- NOTE | 2022-08-28 07:30 | XRay Report ---
XR foot RT min 3V routine CLINICAL HISTORY: Right foot pain/swelling COMPARISON: None FINDINGS: Alignment of the right foot is anatomic. Tarsometatarsal joints are intact. No acute fract ure. There is severe osteoarthritis of the right first metatarsophalangeal joint with joint space tray rowing, osteophytosis and subchondral sclerosis. IMPRESSION: 1. No acute fracture or dislocation within the right foot. 2. Severe right first MTP joint osteoarthritis. ACT 112: Negative or not required by law. Electronically signed by: Andrés Cárdenas M.D. 08/28/2022 7:29 AM
[2022-08-28] MEDS: allopurinoL 300 MG TAB PO SCH (07:45)
[2022-08-28] MEDS: CIPROFLOXACIN 500 MG TAB PO SCH ×2 (07:45→19:44)
[2022-08-28] MEDS: ADVANCED PROBIOTIC 1250 MG CAPSULE PO SCH (07:46)
[2022-08-28] MEDS: PANTOprazole 40 MG TAB PO SCH ×2 (07:47→19:45)
[2022-08-28] MEDS: ROSUVASTATIN CALCIUM 5 MG TAB PO SCH (07:47)
[2022-08-28] MEDS: ATENOLOL 25 MG TABLET PO SCH (07:48)
[2022-08-28] MEDS: HEPARIN SOD 5,000 UNIT/0.5 ML VIAL SQ SCH ×2 (07:48→19:44)
--- NOTE | 2022-08-28 07:53 | Hospitalist Progress Note ---
Date of Service August 28, 2022 Assessment & Plan (1) Nausea vomiting and diarrhea: Plan: Acute diverticulitis with microperforation --CT ABD:Mild acute diverticulitis involving the proximal sigmoid colon. There is a small focus of microperforation adjacent to this diverticulitis. However, no abscess identified. No evidence for bowel obstruction. Normal appendix. 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 difficile, positive for astrovirus Recheck stool for C. difficile given persistent diarrhea Appreciate GI input Continue cholestyramine, Imodium as needed probiotics Outpatient colonoscopy scheduled in September Consider adding Lomotil per GI IV fluids as needed Hypoglycemia Due to poor oral intake Resolved Right rib fractures Incidental finding on CT --CT:Subacute/healing right lateral sixth and seventh rib fractures. There is also a subacute subcutaneous hematoma/contusion within the right gluteal region. Incentive spirometry Patient admits to a fall about a month ago. Fall precautions (2) Hiatal hernia: Plan: Continue PPI (3) Hypomagnesemia: Plan: Hypokalemia Hypocalcemia Hypophosphatemia Replete electrolytes as needed and monitor (4) Tachy-chintan syndrome: Plan: s/p dual chamber pacemaker Continue Cardizem (5) Status post biventricular pacemaker: (6) CAD in [place] artery: Plan: Continue aspirin, statin (7) Hypertension: Plan: Continue home medications (8) Dyslipidemia: Plan: On statin (9) Hypothyroidism: Plan: Normal TSH Continue levothyroxine (10) History of pulmonary embolism: (11) History of DVT (deep vein thrombosis): (12) S/P IVC filter: Plan: Currently not on chronic anticoagulation DVT Px: Heparin SQ CODE STATUS: Full code Disposition PT OT prior to discharge Admission and Anticipated Discharge Date Admission Date: August 18, 2022 Subjective Patient is seen in follow up of diverticulitis, + astrovirus infection Diarrhea slowly improving She still has significant nausea abdomen tender but overall improved Tolerating small amount of low fiber diet Denies any fever, chills, chest pain, dyspnea Had foot pain overnight, XR showed arthritis, also pt has hx of gout. Now says foot pain much improved Review of Systems Review of Systems: All systems reviewed & are unremarkable except as noted in Subjective Physical Exam Physical Exam: General Appearance:Moderately built and nourished, no apparent distress Head: normocephalic, Atraumatic Eyes: normal inspection, EOMI Neck: supple Respiratory/Chest: Normal breath sounds, CTA, No accessory muscle use Cardiovascular: S1, S2, No murmur Abdomen/GI:Soft, mild tender, Bowel sounds present Extremities/Musculoskeletal:normal inspection, Trace edema Neurologic/Psych: AAOX3, no facial asymmetry, speech fluent, moves extremities Skin: normal color, warm Results & Data Results & Data Vital Signs (Past 12 Hours) Vital Signs Temp Pulse Pulse Resp BP Pulse Ox O2 Del Method 08/28/22 07:42 36.8 C 86 16 98/59 L 90 Room Air 08/27/22 22:00 105 H 08/28/22 02:54 36.9 C 86 22 116/72 91 Room Air 08/27/22 23:00 37.5 C 104 H 20 122/81 92 Room Air 08/27/22 21:35 37.7 C H 102 H 18 146/75 H 94 Room Air Laboratory Results 08/27/22 Range/Units 07:09 Sodium 141 (136-145) mmol/L Potassium 4.1 (3.5-5.1) mmol/L Chloride 110 H (98-107) mmol/L Carbon Dioxide 25 (21-32) mmol/L Anion Gap 6 (3-11) BUN 12 (6-23) mg/dl Creatinine 0.84 (0.6-1.2) mg/dl Est Cr Clr Drug Dosing 53.7 ml/min Est GFR ( Amer) 77.7 ml/min Est GFR (Non-Af Amer) 67.0 ml/min BUN/Creatinine Ratio 14.3 (10-20) Glucose 82 (70-99(Fasting)) mg/dl Calcium 7.8 L (8.6-10.3) mg/dl Phosphorus 2.3 L (2.5-4.9) mg/dl Magnesium 1.9 (1.7-2.4) mg/dl Medications Administered Current Inpatient Medications Acetaminophen (Acetaminophen 325 Mg Tab) 650 mg PO Q4H PRN PRN Reason: Moderate Pain (Scale 4, 5, 6) Stop: 09/17/22 13:01 Last Admin: 08/27/22 21:18 Dose: 650 mg Allopurinol (Allopurinol 300 Mg Tab) 300 mg PO DAILY [facility] Stop: 09/27/22 06:29 Last Admin: 08/28/22 07:45 Dose: 300 mg Aspirin (Aspirin 81 Mg Ectab) 81 mg PO HS [facility] Stop: 09/17/22 20:59 Last Admin: 08/27/22 21:18 Dose: 81 mg Atenolol (Atenolol 25 Mg Tablet) 12.5 mg PO DAILY [facility] Stop: 09/19/22 08:59 Last Admin: 08/28/22 07:48 Dose: Not Given Cholestyramine Resin (Cholestyramine Light 4 Gm Pkt) 4 gm PO BID@1000,2200 [facility] Stop: 09/21/22 09:59 Last Admin: 08/27/22 21:18 Dose: 4 gm Ciprofloxacin (Ciprofloxacin 500 Mg Tab) 500 mg PO BID [facility]; Protocol Stop: 09/05/22 16:59 Last Admin: 08/28/22 07:45 Dose: 500 mg Diltiazem HCl (Diltiazem Hcl 180 Mg Capcr) 360 mg PO QPM [facility] Stop: 09/17/22 20:59 Last Admin: 08/27/22 21:18 Dose: 360 mg Heparin Sodium (Porcine) (Heparin Sod 5,000 Unit/0.5 Ml Vial) 5,000 units SQ Q12 [facility] Stop: 09/17/22 20:59 Last Admin: 08/28/22 07:48 Dose: 5,000 units Promethazine HCl 6.25 mg/ (Sodium Chloride) 50.25 mls @ 201 mls/hr IV Q6H PRN PRN Reason: Nausea And Vomiting Stop: 09/18/22 16:47 Last Infusion: 08/27/22 11:28 Dose: Infused Ketorolac Tromethamine (Ketorolac Tromethamine 15 Mg/Ml Vial) 15 mg IV Q6H PRN PRN Reason: Pain Stop: 09/02/22 07:50 Lactobacillus Acidophilus (Advanced Probiotic 1250 Mg Capsule) 2 cap PO DAILY [facility] Stop: 09/21/22 10:59 Last Admin: 08/28/22 07:46 Dose: 2 cap Levothyroxine Sodium (Levothyroxine Sodium 137 Mcg Tablet) 137 mcg PO DAILYBB [facility] Stop: 09/18/22 06:29 Last Admin: 08/28/22 05:36 Dose: 137 mcg Loperamide HCl (Loperamide Hcl 2 Mg Cap) 4 mg PO Q6H [facility] Stop: 09/21/22 09:14 Last Admin: 08/28/22 07:45 Dose: 4 mg Ondansetron HCl (Ondansetron Inj 2 Mg/Ml 2 Ml Vial) 4 mg IV Q4H PRN PRN Reason: Nausea And Vomiting Stop: 09/17/22 13:01 Last Admin: 08/26/22 02:26 Dose: 4 mg Pantoprazole Sodium (Pantoprazole 40 Mg Tab) 40 mg PO BID [facility] Stop: 09/17/22 20:59 Last Admin: 08/28/22 07:47 Dose: 40 mg Potassium Phosphate (Pot Phosphate Monobasic W/ Sod Tab) 1 tab PO QID [facility] Stop: 09/24/22 12:59 Last Admin: 08/26/22 08:08 Dose: 1 tab Rosuvastatin Calcium (Rosuvastatin Calcium 5 Mg Tab) 5 mg PO DAILY [facility] Stop: 09/18/22 08:59 Last Admin: 08/28/22 07:47 Dose: 5 mg (7) Hypertension Hypertension type: unspecified Qualified Code(s): I10 - Essential (primary) hypertension
[2022-08-28 09:01] LABS: Hematocrit (blood only) 40.1 % (37.0-47.0); Hemoglobin 13.2 g/dl (12.0-16.0); Mean Corpuscular Hemoglobin 32.3 pg (25.0-34.0); Mean Corpuscular Hgb Conc 32.9 g/dL (32.0-36.0); Mean Platelet Volume 9.4 fL (9.4-12.4); Platelet Count 356 K/uL (130-400); RDW Coefficient of Variation 14.3 % (11.5-14.5); RDW Standard Deviation 52.3 fL (36.4-46.3); Red Blood Count 4.09 M/uL (4.20-5.40); White Blood Count 11.35 K/ul (4.8-10.8)
[2022-08-28 09:19] LABS: BUN Creatinine Ratio 16.3 (10-20); Calcium 7.6 mg/dl (8.6-10.3); Creatinine Clr Calc Pharmacy 48.7 ml/min; Est GFR (African American) 69.6 ml/min; Est GFR (Non-African American) 60.1 ml/min; Magnesium 1.9 mg/dl (1.7-2.4); Phosphorus 1.9 mg/dl (2.5-4.9); Potassium 4.3 mmol/L (3.5-5.1)
[2022-08-28] MEDS: CHOLESTYRAMINE LIGHT 4 GM PKT PO SCH ×2 (09:55→19:45)
[2022-08-28] MEDS: SODIUM CHLORIDE 0.9% 1000ML 1,000 ML IV SCH ×2 (12:34→20:12)
[2022-08-28] MEDS: CALCIUM CARBONATE 500 MG CHEWABLE TAB PO SCH ×2 (14:23→20:12)
[2022-08-28] MEDS: ASPIRIN 81 MG ECTAB PO SCH (19:44)
[2022-08-28] MEDS: dilTIAZem HCL 180 MG CAPCR PO SCH (19:45)
[2022-08-28] MEDS: KETOROLAC TROMETHAMINE 15 MG/ML VIAL IV PRN (19:46)
[2022-08-29] MEDS: LOPERAMIDE HCL 2 MG CAP PO SCH ×4 (04:02→21:18)
[2022-08-29] MEDS: LEVOTHYROXINE SODIUM 137 MCG TABLET PO SCH (05:28)
[2022-08-29] MEDS: KETOROLAC TROMETHAMINE 15 MG/ML VIAL IV PRN (08:21)
[2022-08-29] MEDS: PANTOprazole 40 MG TAB PO SCH ×2 (08:22→21:18)
[2022-08-29] MEDS: ATENOLOL 25 MG TABLET PO SCH (08:23)
[2022-08-29] MEDS: ROSUVASTATIN CALCIUM 5 MG TAB PO SCH (08:23)
[2022-08-29] MEDS: allopurinoL 300 MG TAB PO SCH (08:24)
[2022-08-29] MEDS: ADVANCED PROBIOTIC 1250 MG CAPSULE PO SCH (08:24)
[2022-08-29] MEDS: CIPROFLOXACIN 500 MG TAB PO SCH ×2 (08:26→21:17)
[2022-08-29] MEDS: HEPARIN SOD 5,000 UNIT/0.5 ML VIAL SQ SCH ×2 (08:26→21:17)
[2022-08-29] MEDS: CHOLESTYRAMINE LIGHT 4 GM PKT PO SCH ×2 (08:27→23:11)
[2022-08-29] MEDS: CALCIUM CARBONATE 500 MG CHEWABLE TAB PO SCH ×3 (08:30→21:23)
[2022-08-29 09:46] LABS: Hematocrit (blood only) 38.5 % (37.0-47.0); Hemoglobin 12.2 g/dl (12.0-16.0); Mean Corpuscular Hemoglobin 31.9 pg (25.0-34.0); Mean Corpuscular Hgb Conc 31.7 g/dL (32.0-36.0); Mean Corpuscular Volume 100.5 fL (80.0-100.0); Mean Platelet Volume 9.5 fL (9.4-12.4); Platelet Count 353 K/uL (130-400); RDW Coefficient of Variation 14.4 % (11.5-14.5); RDW Standard Deviation 52.6 fL (36.4-46.3); Red Blood Count 3.83 M/uL (4.20-5.40); White Blood Count 8.83 K/ul (4.8-10.8)
[2022-08-29 10:03] LABS: Calcium 7.3 mg/dl (8.6-10.3); Magnesium 1.8 mg/dl (1.7-2.4); Potassium 3.9 mmol/L (3.5-5.1)
[2022-08-29 10:09] LABS: BUN Creatinine Ratio 15.3 (10-20); Creatinine Clr Calc Pharmacy 62.8 ml/min; Est GFR (African American) 93.6 ml/min; Est GFR (Non-African American) 80.8 ml/min
[2022-08-29 10:15] LABS: Phosphorus 1.5 mg/dl (2.5-4.9)
[2022-08-29] MEDS ORDERED: POTASSIUM PHOS 3 MMOL/1 ML INFUSION IV STA (10:30)
[2022-08-29] MEDS ORDERED: POTASSIUM PHOSPHATE 24 MMOL in SODIUM CHLORIDE 0.9% 500 ML IV ONE (10:45)
[2022-08-29] MEDS: SODIUM CHLORIDE 0.9% 1000ML 1,000 ML IV SCH ×2 (13:11→21:23)
[2022-08-29] MEDS: ASPIRIN 81 MG ECTAB PO SCH (21:14)
[2022-08-29] MEDS: dilTIAZem HCL 180 MG CAPCR PO SCH (21:17)
--- NOTE | 2022-08-29 21:22 | Hospitalist Progress Note ---
Date of Service August 29, 2022 Assessment & Plan (1) Nausea vomiting and diarrhea: Plan: Acute diverticulitis with microperforation --CT ABD:Mild acute diverticulitis involving the proximal sigmoid colon. There is a small focus of microperforation adjacent to this diverticulitis. However, no abscess identified. No evidence for bowel obstruction. Normal appendix. -- Blood cultures: No growth to date --Continued IV Zosyn -> now switched to ciprofloxacin on 08/26 PM (after discussing w/ surgery) -Improving. Continue current management. -Seen by surgery and recommends noted -Needs outpatient colonoscopy. 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 difficile, positive for astrovirus Seen by GI- Continue cholestyramine, Imodium as needed, probiotics Diarrhea improved. Outpatient colonoscopy scheduled in September Consider adding Lomotil per GI (2) Hiatal hernia: Plan: Continue PPI (3) Hypomagnesemia: Plan: Resolved. (4) Tachy-chintan syndrome: Plan: s/p dual chamber pacemaker. Continue Cardizem (5) CAD in [place] artery: Plan: Continue aspirin, statin (6) Hypertension: Plan: Continue home medications-Cardizem, tenormin (7) Hypothyroidism: Plan: Normal TSH. Continue levothyroxine (8) History of pulmonary embolism: (9) History of DVT (deep vein thrombosis): (10) S/P IVC filter: Plan: Currently not on chronic anticoagulation (11) Hypophosphatemia: Plan: Repleted, recheck in a.m. Plan DVT Px: Heparin SQ Disposition-anticipate discharge in 1 to 2 days. PT OT evaluation Admission and Anticipated Discharge Date Admission Date: August 18, 2022 Subjective Patient was seen and examined at bedside. She feels improved compared to yesterday. Strength is somewhat improved. Pain is improved. Diarrhea is improved, no bowel movement today yet. No fever, chills, nausea or vomiting. Tolerating oral intake although poor appetite Review of Systems Review of Systems: All systems reviewed & are unremarkable except as noted in Subjective Physical Exam Physical Exam: General: Sitting comfortably in chair, not in distress, on room air HEENT: EOMI, MAXIMUS, MMM Chest: Clear breath sounds bilaterally, no wheezes or crackles CVS: Regular rate and rhythm, normal heart sounds, no murmur Abdomen: Soft, mild LLQ tenderness, not distended, normal bowel sounds Neuro: Awake, alert, oriented, conversing well, non focal Extremities: No cyanosis, clubbing or edema Results & Data Results & Data Vital Signs (Past 12 Hours) Vital Signs Temp Pulse Pulse Resp BP Pulse Ox Pulse Ox 08/29/22 19:33 36.4 C 74 18 147/78 H 95 08/29/22 18:31 62 08/29/22 16:00 95 08/29/22 16:22 36.4 C L 84 20 119/68 92 08/29/22 11:35 36.5 C 67 18 105/72 94 O2 Del Method O2 Del Method 08/29/22 19:33 Room Air 08/29/22 18:31 08/29/22 16:00 Room Air 08/29/22 16:22 Room Air 08/29/22 11:35 Room Air Laboratory Results Short CBC 08/29/22 Range/Units 08:59 WBC 8.83 (4.8-10.8) K/ul Hgb 12.2 (12.0-16.0) g/dl Hct 38.5 (37.0-47.0) % Plt Count 353 (130-400) K/uL BMP 08/29/22 08:59 Sodium 140 Potassium 3.9 Chloride 112 H Carbon Dioxide 24 BUN 11 Creatinine 0.72 Glucose 112 H Calcium 7.3 L Medications Administered Current Inpatient Medications Acetaminophen (Acetaminophen 325 Mg Tab) 650 mg PO Q4H PRN PRN Reason: Moderate Pain (Scale 4, 5, 6) Stop: 09/17/22 13:01 Last Admin: 08/27/22 21:18 Dose: 650 mg Allopurinol (Allopurinol 300 Mg Tab) 300 mg PO DAILY [facility] Stop: 09/27/22 06:29 Last Admin: 08/29/22 08:24 Dose: 300 mg Aspirin (Aspirin 81 Mg Ectab) 81 mg PO HS [facility] Stop: 09/17/22 20:59 Last Admin: 08/28/22 19:44 Dose: 81 mg Atenolol (Atenolol 25 Mg Tablet) 12.5 mg PO DAILY [facility] Stop: 09/19/22 08:59 Last Admin: 08/29/22 08:23 Dose: 12.5 mg Calcium Carbonate (Calcium Carbonate 500 Mg Chewable Tab) 500 mg PO TID [facility] Stop: 09/27/22 13:59 Last Admin: 08/29/22 13:13 Dose: 500 mg Cholestyramine Resin (Cholestyramine Light 4 Gm Pkt) 4 gm PO BID@1000,2200 [facility] Stop: 09/21/22 09:59 Last Admin: 08/29/22 08:27 Dose: 4 gm Ciprofloxacin (Ciprofloxacin 500 Mg Tab) 500 mg PO BID [facility]; Protocol Stop: 09/05/22 16:59 Last Admin: 08/29/22 08:26 Dose: 500 mg Diltiazem HCl (Diltiazem Hcl 180 Mg Capcr) 360 mg PO QPM [facility] Stop: 09/17/22 20:59 Last Admin: 08/28/22 19:45 Dose: 360 mg Heparin Sodium (Porcine) (Heparin Sod 5,000 Unit/0.5 Ml Vial) 5,000 units SQ Q12 [facility] Stop: 09/17/22 20:59 Last Admin: 08/29/22 08:26 Dose: 5,000 units Promethazine HCl 6.25 mg/ (Sodium Chloride) 50.25 mls @ 201 mls/hr IV Q6H PRN PRN Reason: Nausea And Vomiting Stop: 09/18/22 16:47 Last Infusion: 08/27/22 11:28 Dose: Infused Sodium Chloride (Nss 1000ml) 1,000 mls @ 100 mls/hr IV .Q10H [facility] Stop: 09/27/22 12:14 Last Admin: 08/29/22 13:11 Dose: 125 mls/hr Ketorolac Tromethamine (Ketorolac Tromethamine 15 Mg/Ml Vial) 15 mg IV Q6H PRN PRN Reason: Pain Stop: 09/02/22 07:50 Last Admin: 08/29/22 08:21 Dose: 15 mg Lactobacillus Acidophilus (Advanced Probiotic 1250 Mg Capsule) 2 cap PO DAILY [facility] Stop: 09/21/22 10:59 Last Admin: 08/29/22 08:24 Dose: 2 cap Levothyroxine Sodium (Levothyroxine Sodium 137 Mcg Tablet) 137 mcg PO DAILYBB [facility] Stop: 09/18/22 06:29 Last Admin: 08/29/22 05:28 Dose: 137 mcg Loperamide HCl (Loperamide Hcl 2 Mg Cap) 4 mg PO Q6H [facility] Stop: 09/21/22 09:14 Last Admin: 08/29/22 16:21 Dose: 4 mg Ondansetron HCl (Ondansetron Inj 2 Mg/Ml 2 Ml Vial) 4 mg IV Q4H PRN PRN Reason: Nausea And Vomiting Stop: 09/17/22 13:01 Last Admin: 08/26/22 02:26 Dose: 4 mg Pantoprazole Sodium (Pantoprazole 40 Mg Tab) 40 mg PO BID [facility] Stop: 09/17/22 20:59 Last Admin: 08/29/22 08:22 Dose: 40 mg Potassium Phosphate (Pot Phosphate Monobasic W/ Sod Tab) 1 tab PO QID [facility] Stop: 09/24/22 12:59 Last Admin: 08/26/22 08:08 Dose: 1 tab Rosuvastatin Calcium (Rosuvastatin Calcium 5 Mg Tab) 5 mg PO DAILY [facility] Stop: 09/18/22 08:59 Last Admin: 08/29/22 08:23 Dose: 5 mg (6) Hypertension Hypertension type: unspecified Qualified Code(s): I10 - Essential (primary) hypertension
[2022-08-30] MEDS: LOPERAMIDE HCL 2 MG CAP PO SCH ×2 (03:37→09:54)
[2022-08-30] MEDS: SODIUM CHLORIDE 0.9% 1000ML 1,000 ML IV SCH (05:18)
[2022-08-30] MEDS: LEVOTHYROXINE SODIUM 137 MCG TABLET PO SCH (05:18)
[2022-08-30] MEDS: KETOROLAC TROMETHAMINE 15 MG/ML VIAL IV PRN (07:43)
[2022-08-30 07:46] LABS: BUN Creatinine Ratio 10.6 (10-20); Calcium 8.1 mg/dl (8.6-10.3); Creatinine Clr Calc Pharmacy 68.5 ml/min; Est GFR (African American) 98.8 ml/min; Est GFR (Non-African American) 85.2 ml/min; Magnesium 1.6 mg/dl (1.7-2.4); Phosphorus 1.9 mg/dl (2.5-4.9); Potassium 4.3 mmol/L (3.5-5.1)
[2022-08-30] MEDS ORDERED: POTASSIUM PHOS 3 MMOL/1 ML INFUSION IV STA (07:49)
[2022-08-30] MEDS ORDERED: POTASSIUM PHOSPHATE 24 MMOL in SODIUM CHLORIDE 0.9% 500 ML IV ONE (08:15)
[2022-08-30] MEDS: ATENOLOL 25 MG TABLET PO SCH (09:45)
[2022-08-30] MEDS: allopurinoL 300 MG TAB PO SCH (09:45)
[2022-08-30] MEDS: ADVANCED PROBIOTIC 1250 MG CAPSULE PO SCH (09:45)
[2022-08-30] MEDS: ROSUVASTATIN CALCIUM 5 MG TAB PO SCH (09:46)
[2022-08-30] MEDS: PANTOprazole 40 MG TAB PO SCH ×2 (09:46→22:38)
[2022-08-30] MEDS: CIPROFLOXACIN 500 MG TAB PO SCH ×2 (09:47→22:54)
[2022-08-30] MEDS: HEPARIN SOD 5,000 UNIT/0.5 ML VIAL SQ SCH ×2 (09:47→22:47)
[2022-08-30] MEDS: CALCIUM CARBONATE 500 MG CHEWABLE TAB PO SCH ×3 (09:53→22:54)
[2022-08-30] MEDS: MAGNESIUM OXIDE 400 MG TAB PO SCH (11:43)
--- NOTE | 2022-08-30 16:37 | Hospitalist Progress Note ---
Date of Service August 30, 2022 Assessment & Plan (1) Nausea vomiting and diarrhea: Plan: Acute diverticulitis with microperforation --CT ABD:Mild acute diverticulitis involving the proximal sigmoid colon. There is a small focus of microperforation adjacent to this diverticulitis. However, no abscess identified. No evidence for bowel obstruction. Normal appendix. -- Blood cultures: No growth to date --Continued IV Zosyn -> now switched to ciprofloxacin on 08/26 PM (after discussing w/ surgery) -Improving. Continue current management. -Seen by surgery and recommends noted -Needs outpatient colonoscopy. 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 difficile, positive for astrovirus Seen by GI and was treated with cholestyramine, Imodium, lomotil with resolution of diarrhea. No BM in 2 days and those meds have been discontinued. Outpatient colonoscopy scheduled in September (2) Hiatal hernia: Plan: Continue PPI (3) Hypomagnesemia: Plan: Repleted, recheck in am (4) Tachy-chintan syndrome: Plan: s/p dual chamber pacemaker. Continue Cardizem (5) CAD in [place] artery: Plan: Continue aspirin, statin (6) Hypertension: Plan: Continue home medications-Cardizem, tenormin (7) Hypothyroidism: Plan: Normal TSH. Continue levothyroxine (8) History of pulmonary embolism: (9) History of DVT (deep vein thrombosis): (10) S/P IVC filter: Plan: Currently not on chronic anticoagulation (11) Hypophosphatemia: Plan: Repleted, recheck in a.m. Plan DVT Px: Heparin SQ Disposition-Patient is stable. PT OT reeval pending for discharge needs. Admission and Anticipated Discharge Date Admission Date: August 18, 2022 Subjective She continues to feel better. Appetite slowly improving. No BM for 2 days now. Abd pain improved. No N/V. Did not get much sleep as she had to go urination frequently because of IVF. States she would work with PT/OT as she is closer to getting discharged. Review of Systems Review of Systems: All systems reviewed & are unremarkable except as noted in Subjective Physical Exam Physical Exam: General: Sitting comfortably in bed, not in distress, on room air HEENT: EOMI, MAXIMUS, MMM Chest: Clear breath sounds bilaterally, no wheezes or crackles CVS: Regular rate and rhythm, normal heart sounds, no murmur Abdomen: Soft, mild abd tenderness, not distended, normal bowel sounds Neuro: Awake, alert, oriented, conversing well, non focal Extremities: No cyanosis, clubbing or edema Results & Data Results & Data Vital Signs (Past 12 Hours) Vital Signs Temp Pulse Pulse Resp BP Pulse Ox O2 Del Method 08/30/22 16:07 78 08/30/22 15:41 36.6 C 87 18 145/8 H 95 Room Air 08/30/22 11:28 36.8 C 83 18 127/81 94 Room Air 08/30/22 07:46 36.5 C 84 20 147/81 H 92 Room Air 08/30/22 07:07 90 Laboratory Results [facility] 08/30/22 06:02 Sodium 141 Potassium 4.3 Chloride 112 H Carbon Dioxide 23 BUN 7 Creatinine 0.66 Glucose 71 Calcium 8.1 L Medications Administered Current Inpatient Medications Acetaminophen (Acetaminophen 325 Mg Tab) 650 mg PO Q4H PRN PRN Reason: Moderate Pain (Scale 4, 5, 6) Stop: 09/17/22 13:01 Last Admin: 08/27/22 21:18 Dose: 650 mg Allopurinol (Allopurinol 300 Mg Tab) 300 mg PO DAILY [facility] Stop: 09/27/22 06:29 Last Admin: 08/30/22 09:45 Dose: 300 mg Aspirin (Aspirin 81 Mg Ectab) 81 mg PO HS [facility] Stop: 09/17/22 20:59 Last Admin: 08/29/22 21:14 Dose: 81 mg Atenolol (Atenolol 25 Mg Tablet) 12.5 mg PO DAILY [facility] Stop: 09/19/22 08:59 Last Admin: 08/30/22 09:45 Dose: 12.5 mg Calcium Carbonate (Calcium Carbonate 500 Mg Chewable Tab) 500 mg PO TID [facility] Stop: 09/27/22 13:59 Last Admin: 08/30/22 14:19 Dose: 500 mg Cholestyramine Resin (Cholestyramine Light 4 Gm Pkt) 4 gm PO BID@1000,2200 [facility] Stop: 09/21/22 09:59 Last Admin: 08/29/22 23:11 Dose: 4 gm Ciprofloxacin (Ciprofloxacin 500 Mg Tab) 500 mg PO BID [facility]; Protocol Stop: 09/05/22 16:59 Last Admin: 08/30/22 09:47 Dose: 500 mg Diltiazem HCl (Diltiazem Hcl 180 Mg Capcr) 360 mg PO QPM [facility] Stop: 09/17/22 20:59 Last Admin: 08/29/22 21:17 Dose: 360 mg Heparin Sodium (Porcine) (Heparin Sod 5,000 Unit/0.5 Ml Vial) 5,000 units SQ Q12 [facility] Stop: 09/17/22 20:59 Last Admin: 08/30/22 09:47 Dose: 5,000 units Promethazine HCl 6.25 mg/ (Sodium Chloride) 50.25 mls @ 201 mls/hr IV Q6H PRN PRN Reason: Nausea And Vomiting Stop: 09/18/22 16:47 Last Infusion: 08/27/22 11:28 Dose: Infused Ketorolac Tromethamine (Ketorolac Tromethamine 15 Mg/Ml Vial) 15 mg IV Q6H PRN PRN Reason: Pain Stop: 09/02/22 07:50 Last Admin: 08/30/22 07:43 Dose: 15 mg Lactobacillus Acidophilus (Advanced Probiotic 1250 Mg Capsule) 2 cap PO DAILY [facility] Stop: 09/21/22 10:59 Last Admin: 08/30/22 09:45 Dose: 2 cap Levothyroxine Sodium (Levothyroxine Sodium 137 Mcg Tablet) 137 mcg PO DAILYBB [facility] Stop: 09/18/22 06:29 Last Admin: 08/30/22 05:18 Dose: 137 mcg Loperamide HCl (Loperamide Hcl 2 Mg Cap) 4 mg PO Q6H [facility] Stop: 09/21/22 09:14 Last Admin: 08/30/22 09:54 Dose: Not Given Magnesium Oxide (Magnesium Oxide 400 Mg Tab) 400 mg PO DAILY@1100 [facility] Stop: 09/29/22 10:59 Last Admin: 08/30/22 11:43 Dose: 400 mg Ondansetron HCl (Ondansetron Inj 2 Mg/Ml 2 Ml Vial) 4 mg IV Q4H PRN PRN Reason: Nausea And Vomiting Stop: 09/17/22 13:01 Last Admin: 08/26/22 02:26 Dose: 4 mg Pantoprazole Sodium (Pantoprazole 40 Mg Tab) 40 mg PO BID [facility] Stop: 09/17/22 20:59 Last Admin: 08/30/22 09:46 Dose: 40 mg Potassium Phosphate (Pot Phosphate Monobasic W/ Sod Tab) 1 tab PO QID [facility] Stop: 09/24/22 12:59 Last Admin: 08/26/22 08:08 Dose: 1 tab Rosuvastatin Calcium (Rosuvastatin Calcium 5 Mg Tab) 5 mg PO DAILY [facility] Stop: 09/18/22 08:59 Last Admin: 08/30/22 09:46 Dose: 5 mg (6) Hypertension Hypertension type: unspecified Qualified Code(s): I10 - Essential (primary) hypertension
[2022-08-30] MEDS: dilTIAZem HCL 180 MG CAPCR PO SCH (22:47)
[2022-08-30] MEDS: ASPIRIN 81 MG ECTAB PO SCH (22:47)
[2022-08-31] MEDS: LEVOTHYROXINE SODIUM 137 MCG TABLET PO SCH (05:53)
[2022-08-31 06:54] LABS: BUN Creatinine Ratio 8.6 (10-20); Calcium 8.6 mg/dl (8.6-10.3); Creatinine Clr Calc Pharmacy 55.8 ml/min; Est GFR (African American) 81.2 ml/min; Est GFR (Non-African American) 70.1 ml/min; Magnesium 1.7 mg/dl (1.7-2.4); Phosphorus 3.1 mg/dl (2.5-4.9); Potassium 4.7 mmol/L (3.5-5.1)
[2022-08-31] MEDS: PANTOprazole 40 MG TAB PO SCH (09:09)
[2022-08-31] MEDS: ATENOLOL 25 MG TABLET PO SCH (09:09)
[2022-08-31] MEDS: CIPROFLOXACIN 500 MG TAB PO SCH (09:09)
[2022-08-31] MEDS: HEPARIN SOD 5,000 UNIT/0.5 ML VIAL SQ SCH (09:10)
[2022-08-31] MEDS: allopurinoL 300 MG TAB PO SCH (09:10)
[2022-08-31] MEDS: ADVANCED PROBIOTIC 1250 MG CAPSULE PO SCH (09:10)
[2022-08-31] MEDS: ROSUVASTATIN CALCIUM 5 MG TAB PO SCH (09:10)
[2022-08-31] MEDS: KETOROLAC TROMETHAMINE 15 MG/ML VIAL IV PRN (09:11)
[2022-08-31] MEDS: MAGNESIUM OXIDE 400 MG TAB PO SCH (10:34)
[2022-08-31] MEDS: CALCIUM CARBONATE 500 MG CHEWABLE TAB PO SCH (10:34)
--- NOTE | 2022-08-31 10:48 | Discharge Summary ---
Date of Service August 31, 2022 Admission HPI Per Admitting Provider This is a 77-year-old female with PMHx of hiatal hernia, mild asthma, CAD, history of tachybradycardia syndrome, ischemic cardiomyopathy, HTN, HLD CKD stage III, hypothyroidism, history of DVT/PE with IVC filter in place, GERD, who presents to the hospital with acute onset of nausea, vomiting and diarrhea over the past 24 hours. 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 She has had numerous bouts of vomiting and diarrhea throughout the past 24 hours. She has only been able to tolerate small sips of fluid today, she has not taken her medication since 08/16 due to vomiting it back up. Yesterday she had a fever of 101.8 followed by chills and shaking. She denies any known sick contacts, undercooked or raw foods, spoiled foods, etc. Patient lives at home with her daughter who is well. She feels miserable overall, reports that this is very unlike her normal, and does not ever get this sick. Upon presentation she is found to have hypomagnesemia of 1.5, glucose 103, calcium 8.3, albumin 3.3, normal WBC of 5.3 with lymphocytes of 0.76. Respiratory viral panel is negative. C. difficile and stool culture are pending. Chest x-ray is negative except for a trace left pleural effusion and left basilar linear densities which favors subsegmental atelectasis. Moderate hiatal hernia is seen. Admission Exam Per Admitting Provider General: awake, alert, obviously ill, fatigued, no acute distress Head: Normocephalic, atraumatic ENT: PERRL, EOMI, no pharyngeal exudate, mucous membranes dry Chest: Clear to auscultation slightly diminished at the bases bilaterally, on 2L with O2 sats of 97% no adventitious breath sounds Cardiac: Sinus tach with heart rate in the low 100s, no murmur, no JVD, normal peripheral pulses, good capillary refill Abdominal: Hyperactive BS x 4 quadrants, soft, nondistended, +generalized tenderness throughout to light palpation, no rebound or guarding Extremities: Normal inspection, no peripheral edema or erythema, calfs nontender to palpation Psych: Normal mood and affect Neuro: AAO x 3, strength intact bilaterally and rated 5/5, no motor deficits, speech is clear, no peripheral sensory deficits Principal Diagnosis Acute diverticulitis with microperforation, gastroenteritis Discharge Exam General: Lying comfortably in bed, not in distress, on room air HEENT: EOMI, LORE, MMM Chest: Clear breath sounds bilaterally, no wheezes or crackles CVS: Regular rate and rhythm, normal heart sounds, no murmur Abdomen: Soft, non tender, not distended, normal bowel sounds Neuro: Awake, alert, oriented, conversing well, non focal Extremities: No cyanosis, clubbing or edema Discharge Data Allergies Allergy/AdvReac Type Severity Reaction Status Date / Time imipenem Allergy Severe ANAPHYLAXIS Verified 08/18/22 09:12 Sulfa (Sulfonamide Allergy Severe hives,sob, Verified 08/18/22 09:12 Antibiotics) can take Dyazide daptomycin AdvReac Severe Anaphylaxis Unverified 08/18/22 09:12 colchicine AdvReac Intermediate diarrhea Verified 08/18/22 09:12 metoprolol AdvReac Mild fatigue Verified 08/18/22 09:12 zoledronic acid AdvReac Mild NAUSEA AND Verified 08/18/22 09:12 VOMITING Consultations 08/18/22 11:42 ED Decision to Admit Stat 08/18/22 18:46 Consult General Surgery Stat 08/21/22 12:08 Consult Gastroenterology Routine Ordered Studies 08/18/22 14:45 CT abd pelvis IV con only Routine Hospital Course (1) Nausea vomiting and diarrhea: Acute diverticulitis with microperforation --CT ABD:Mild acute diverticulitis involving the proximal sigmoid colon. There is a small focus of microperforation adjacent to this diverticulitis. However, no abscess identified. No evidence for bowel obstruction. Normal appendix. -- Blood cultures negative --Continued IV Zosyn -> now switched to ciprofloxacin on 08/26 PM (after discussing w/ surgery) for 7 days --She continues to improve. Her abdominal pain is completely resolved. She had normal bowel movement yesterday. No nausea or vomiting. --Seen by surgery and recommendations noted -Seen by GI- outpatient colonoscopy scheduled for September. 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 difficile, positive for astrovirus Seen by GI and was treated with cholestyramine, Imodium, lomotil with resolution of diarrhea. No BM in 2 days and those meds have been discontinued. She had normal bowel movement yesterday Outpatient colonoscopy scheduled in September (2) Hiatal hernia: Continue PPI (3) Hypomagnesemia: Resolved (4) Tachy-chintan syndrome: s/p dual chamber pacemaker. Continue Cardizem (5) CAD in [place] artery: Continue aspirin, statin (6) Hypertension: Continue home medications-Cardizem, tenormin (7) Hypothyroidism: Normal TSH. Continue levothyroxine (8) History of pulmonary embolism: (9) History of DVT (deep vein thrombosis): (10) S/P IVC filter: Currently not on chronic anticoagulation (11) Hypophosphatemia: Resolved Total Time Total Time Spent Total Time Spent (In Minutes): 35 Discharge Plan Discharge Items Patient Disposition: Home - Self-Care Reason For Visit: VOMITING, DIARRHEA, HYPOMAGNESEMIA Discharge Diagnosis: Acute diverticulitis, acute gastroenteritis Activity: Resume your previous activity Non-emergency contact: Primary Care Provider and Clinical Laboratory Service Teacher Call non-emergency contact if: you have any medication questions, your symptoms worsen, your pain is concerning for you and you have a fever Follow-up/Referrals: Rafa Bergman MD [Primary Care Provider] - (Date & Time 09/05/2022 11:20 AM Provider Rafa Bergman MD Department Family Medicine [facility] ) Diet: Low Fiber Addtl Attending Provider Instructions: Continue cipro twice daily for 2 more days Low fiber diet for next 2 weeks Follow up with GI for OP colonoscopy Follow up with family doctor Pending Studies at Discharge: No Stand-Alone Forms: My [facility], Smoking Cessation Medications and DC Order Prescriptions: New ciprofloxacin HCl 500 mg Tablet 500 mg PO BID 2 Days Qty: 4 0RF Continued fexofenadine [Elke Allergy] 180 mg Tablet 180 mg PO DAILY PRN (Reason: Allergy Symptoms) cholecalciferol (vitamin D3) [Vitamin D3] 2,000 unit Tablet 2,000 unit PO QAM Azo Bladder Control 300 mg Capsule 1 cap PO QAM nitroglycerin [Nitrostat] 0.4 mg tablet, sublingual 0.4 mg Sublingual Q5M Qty: 25 3RF Rx Instructions: 1 pill under tongue for chest pain. May repeat in 5 min. Call 911 if no relief. fluticasone propionate [Flonase Allergy Relief] 50 mcg/actuation [place],Suspension 2 spray INTRANASAL QAM Rx Instructions: use following nasal saline aspirin 81 mg Tablet,Delayed Release (Dr/Ec) 81 mg PO HS Qty: 0 0RF dicyclomine 20 mg Tablet 20 mg PO TID PRN (Reason: IBS) levothyroxine 137 mcg tablet 137 mcg PO DAILYBB diltiazem HCl 360 mg tablet extended release 24 hr 360 mg PO QPM rosuvastatin 5 mg tablet 5 mg PO DAILY coenzyme Q10 [CoQ-10] 100 mg Capsule 100 mg PO DAILY allopurinol 300 mg tablet 150 mg PO QAM Rx Instructions: take 1.5 tabs daily pantoprazole 40 mg Tablet,Delayed Release (Dr/Ec) 40 mg PO BID Qty: 60 0RF Rx Instructions: take 40 mg twice a day. allopurinol 300 mg Tablet 300 mg PO QPM loperamide 2 mg Tablet 2 mg PO QID PRN (Reason: Diarrhea) atenolol 25 mg tablet 12.5 mg PO DAILY famotidine 20 mg Tablet 20 mg PO DAILY cholecalciferol (vitamin D3) 25 mcg (1,000 unit) Tablet 25 mcg PO DAILY Discharge Orders: Discharge Order (Routine); Ordered 08/31/22 Ordered By: Arik Roth Admission Data Admit Date/Time: 08/18/22 12:09 Attending Provider: Arik Roth Admit Provider: Sarah Hsu Primary Care Provider: Rafa Bergman Other Providers: Susie Braun ; Chanda Lima ; Elena Soto ; Hadley Avery ; Jenna Garrison ; Chrystal Lamb ; Irene Burdick ; Sydnee Mohamud ; Meliton Prince ; Barrett Szymanski ; Dewayne Florentino ; Leodan Gomes ; Nahun Hong ; Janeen Vivas ; Joy Baxter ; Leslie Cummins ; Eleni Phipps ; Du Garcia ; Bret Pearl ; Isaak Lovett ; Shira Ramsey ; Vaibhav Thorne Jr ; Nathan Macedo ; [facility]
== END 2022-08-31 15:21 | disposition home health service (06) | DRG 392 ==
LOC: ED 08:20 → SUATTDRO 12:09 → EDINP 12:09 → 2W 12:50

== ENCOUNTER 2022-09-02 09:50 | Inpatient (IN) ==
--- NOTE | 2022-09-02 10:46 | Emergency Department Note ---
History of Present Illness General Chief complaint: Shortness of Breath/Dyspnea Stated complaint: DIFFICULTY BREATHING Time Seen by Provider: 09/02/22 10:04 History of Present Illness Maximum Pain Intensity: 4 This 77-year-old female with history of recent acute diverticulitis, tachybrady cardia syndrome, mild asthma, hiatal hernia, CAD, recurrent idiopathic pericarditis, osteoporosis, chronic kidney disease stage III, NSTEMI, hypertension, hypothyroidism, and multiple DVTs and PEs, presents today with her son, for evaluation of shortness of breath. The patient states she was discha rged from the hospital on Saturday (2 days ago). She was admitted for astrovirus causing nausea, vomiting, and diarrhea. Last evening she developed shortness of breath at home. She went to bed, hoping it would be better in the morning. It did not improve. She called her son and was brought to the ED for evaluation. She denies any other symptoms. No chest pain, nausea, vomiting, diarrhea, head ache, upper respiratory symptoms, cough, or calf pain. She has a history of multiple clots in the past, she estimates at 6-7 PEs. She previously had an inferior cava filter, that was subsequently removed due to bleeding. At this time she only takes aspirin 81 mg for her blood thinner. She currently denies any leg pain. She has a known history of KS 5 years ago and 2 subsequent cardiac stents. She also has a pacer. Home Medications Medication Instructions Recorded Confirmed Type cholecalciferol (vitamin D3) 50 2,000 unit PO QAM 04/28/18 09/02/22 History mcg (2,000 unit) tablet (Vitamin D3) fexofenadine 180 mg tablet 180 mg PO DAILY PRN Allergy 04/28/18 09/02/22 History (Elke Allergy) Symptoms pumpkin seed extract-soy germ 300 1 cap PO QAM 04/28/18 09/02/22 History mg capsule (Azo Bladder Control) nitroglycerin 0.4 mg sublingual 0.4 mg sublingual Q5M chest pain 05/01/18 09/02/22 Rx tablet (Nitrostat) #25 tabs aspirin 81 mg tablet,delayed 81 mg PO HS #0 tabs 05/16/18 09/02/22 Rx release fluticasone propionate 50 2 spray intranasal QAM 06/03/18 09/02/22 History mcg/actuation nasal spray,suspension (Flonase Allergy Relief) dicyclomine 20 mg tablet 20 mg PO TID PRN IBS 02/12/19 09/02/22 History allopurinol 300 mg tablet 150 mg PO QAM 01/23/21 09/02/22 History coenzyme Q10 100 mg capsule 100 mg PO DAILY 01/23/21 09/02/22 History (CoQ-10) diltiazem HCl 360 mg 360 mg PO QPM 01/23/21 09/02/22 History tablet,extended release 24 hr levothyroxine 137 mcg tablet 137 mcg PO DAILYBB 01/23/21 09/02/22 History rosuvastatin 5 mg tablet 5 mg PO DAILY 01/23/21 09/02/22 History pantoprazole 40 mg tablet,delayed 40 mg PO BID #60 tabs 01/24/21 09/02/22 Rx release allopurinol 300 mg tablet 300 mg PO QPM 08/18/22 09/02/22 History atenolol 25 mg tablet 12.5 mg PO DAILY 08/18/22 09/02/22 History cholecalciferol (vitamin D3) 25 25 mcg PO DAILY 08/18/22 09/02/22 History mcg (1,000 unit) tablet famotidine 20 mg tablet 20 mg PO DAILY 08/18/22 09/02/22 History loperamide 2 mg tablet 2 mg PO QID PRN Diarrhea 08/18/22 09/02/22 History Allergies Allergy/AdvReac Type Severity Reaction Status Date / Time imipenem Allergy Severe ANAPHYLAXIS Verified 09/02/22 15:13 Sulfa (Sulfonamide Allergy Severe hives,sob, Verified 09/02/22 15:13 Antibiotics) can take Dyazide daptomycin AdvReac Severe Anaphylaxis Unverified 09/02/22 15:13 colchicine AdvReac Intermediate diarrhea Verified 09/02/22 15:13 metoprolol AdvReac Mild fatigue Verified 09/02/22 15:13 zoledronic acid AdvReac Mild NAUSEA AND Verified 09/02/22 15:13 VOMITING Past Med/Surg History Medical History CAD (coronary artery disease) Dyslipidemia GERD (gastroesophageal reflux disease) History of DVT (deep vein thrombosis) History of non-ST elevation myocardial infarction (NSTEMI) History of pulmonary embolism Hypertension (Unknown) BP better today continue higher dose of metoprolol 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 Hypothyroidism Ischemic cardiomyopathy Non-ST elevated myocardial infarction (non-STEMI) Osteoporosis Retinal vein occlusion of right eye Rupture of left posterior tibialis tendon Vitamin B12 deficiency Surgical History History of cardiac cath S/P BSO (status post bilateral salpingo-oophorectomy) S/P IVC filter Status post biventricular pacemaker Status post hysterectomy Status post right knee replacement Family History Father Coronary heart disease Heart disease Mother Stroke Allergies Grandmother Asthma Grandfather Asthma Other Hypertension No family history of adverse response to anesthesia No family history of bleeding disorder Social History Smoking Status: Never smoker Second Hand Exposure: No; Do You Dip or Chew Tobacco: No; Hx Alcohol Use: No Hx Substance Use: No Preferred Language: Honduran Communication Ability: Effective Recoater Required: No Beliefs That Will Affect Care: None marital status: Current Living Situation: Family Current Living Situation Comment: Lives with daughter current occupational status: employed How many Children do You have: 1 Other Information That Helps Us Care for You: No Feels Safe at Home: Yes Safety Concerns: Feels Safe At This Time Assistive Devices: Cane and Walker Assistive Devices Comment: Has walker and cane at home but does not use Review of Systems A total of 10 systems reviewed and were otherwise negative Physical Exam Vital Signs Vital Signs - 24 hr 09/02/22 10:01 09/02/22 10:22 09/02/22 10:23 Temperature 35.8 C L Temperature Source Oral Pulse Rate 81 82 Pulse Rate [Apical] Pulse Rate from SpO2 Sensor Respiratory Rate 24 Blood Pressure 96/63 L Blood Pressure [Right Arm] Blood Pressure Mean 74 Blood Pressure Mean [Right Arm] Blood Pressure Position Sitting Pulse Oximetry 84 L Oxygen Delivery Method Room Air Nasal Cannula Oxygen Flow Rate Sepsis Recent Fever Within 48 Hours No Sepsis New/Unexplained Change in Mental Status No Sepsis Action Taken by Nursing No Action Required Oxygen Flow Rate - Titration 4 Pulse Oximetry Post Tiitration 94 09/02/22 10:24 09/02/22 10:55 09/02/22 10:57 Temperature Temperature Source Pulse Rate Pulse Rate [Apical] 76 Pulse Rate from SpO2 Sensor Respiratory Rate 20 Blood Pressure Blood Pressure [Right Arm] 130/79 Blood Pressure Mean Blood Pressure Mean [Right Arm] 96 Blood Pressure Position Pulse Oximetry 94 94 Oxygen Delivery Method Nasal Cannula Nasal Cannula Nasal Cannula Oxygen Flow Rate 4 4 4 Sepsis Recent Fever Within 48 Hours Sepsis New/Unexplained Change in Mental Status Sepsis Action Taken by Nursing Oxygen Flow Rate - Titration Pulse Oximetry Post Tiitration 09/02/22 10:15 09/02/22 10:20 09/02/22 10:22 Temperature Temperature Source Pulse Rate 81 81 80 Pulse Rate [Apical] Pulse Rate from SpO2 Sensor Respiratory Rate 19 20 13 Blood Pressure Blood Pressure [Right Arm] Blood Pressure Mean Blood Pressure Mean [Right Arm] Blood Pressure Position Pulse Oximetry Oxygen Delivery Method Oxygen Flow Rate Sepsis Recent Fever Within 48 Hours Sepsis New/Unexplained Change in Mental Status Sepsis Action Taken by Nursing Oxygen Flow Rate - Titration Pulse Oximetry Post Tiitration 09/02/22 10:22 09/02/22 10:30 09/02/22 10:40 Temperature Temperature Source Pulse Rate 81 81 Pulse Rate [Apical] Pulse Rate from SpO2 Sensor 82 81 Respiratory Rate 19 23 Blood Pressure 130/79 Blood Pressure [Right Arm] Blood Pressure Mean 91 Blood Pressure Mean [Right Arm] Blood Pressure Position Pulse Oximetry 95 95 Oxygen Delivery Method Oxygen Flow Rate Sepsis Recent Fever Within 48 Hours Sepsis New/Unexplained Change in Mental Status Sepsis Action Taken by Nursing Oxygen Flow Rate - Titration Pulse Oximetry Post Tiitration 09/02/22 10:50 09/02/22 11:00 09/02/22 11:10 Temperature Temperature Source Pulse Rate 80 80 72 Pulse Rate [Apical] Pulse Rate from SpO2 Sensor 80 83 79 Respiratory Rate 20 18 15 Blood Pressure Blood Pressure [Right Arm] Blood Pressure Mean Blood Pressure Mean [Right Arm] Blood Pressure Position Pulse Oximetry 95 95 96 Oxygen Delivery Method Oxygen Flow Rate Sepsis Recent Fever Within 48 Hours Sepsis New/Unexplained Change in Mental Status Sepsis Action Taken by Nursing Oxygen Flow Rate - Titration Pulse Oximetry Post Tiitration 09/02/22 11:20 09/02/22 11:30 09/02/22 11:40 Temperature Temperature Source Pulse Rate 78 80 80 Pulse Rate [Apical] Pulse Rate from SpO2 Sensor 79 80 79 Respiratory Rate 20 23 20 Blood Pressure Blood Pressure [Right Arm] Blood Pressure Mean Blood Pressure Mean [Right Arm] Blood Pressure Position Pulse Oximetry 98 95 96 Oxygen Delivery Method Oxygen Flow Rate Sepsis Recent Fever Within 48 Hours Sepsis New/Unexplained Change in Mental Status Sepsis Action Taken by Nursing Oxygen Flow Rate - Titration Pulse Oximetry Post Tiitration 09/02/22 12:00 09/02/22 12:10 09/02/22 12:20 Temperature Temperature Source Pulse Rate 85 80 80 Pulse Rate [Apical] Pulse Rate from SpO2 Sensor 85 80 80 Respiratory Rate 19 30 H 22 Blood Pressure Blood Pressure [Right Arm] Blood Pressure Mean Blood Pressure Mean [Right Arm] Blood Pressure Position Pulse Oximetry 95 97 96 Oxygen Delivery Method Oxygen Flow Rate Sepsis Recent Fever Within 48 Hours Sepsis New/Unexplained Change in Mental Status Sepsis Action Taken by Nursing Oxygen Flow Rate - Titration Pulse Oximetry Post Tiitration 09/02/22 12:30 09/02/22 12:40 09/02/22 12:50 Temperature Temperature Source Pulse Rate 84 85 84 Pulse Rate [Apical] Pulse Rate from SpO2 Sensor 84 Respiratory Rate 23 23 20 Blood Pressure Blood Pressure [Right Arm] Blood Pressure Mean Blood Pressure Mean [Right Arm] Blood Pressure Position Pulse Oximetry 97 Oxygen Delivery Method Oxygen Flow Rate Sepsis Recent Fever Within 48 Hours Sepsis New/Unexplained Change in Mental Status Sepsis Action Taken by Nursing Oxygen Flow Rate - Titration Pulse Oximetry Post Tiitration 09/02/22 13:00 09/02/22 13:10 09/02/22 13:20 Temperature Temperature Source Pulse Rate 86 82 85 Pulse Rate [Apical] Pulse Rate from SpO2 Sensor Respiratory Rate 20 36 H 26 H Blood Pressure Blood Pressure [Right Arm] Blood Pressure Mean Blood Pressure Mean [Right Arm] Blood Pressure Position Pulse Oximetry Oxygen Delivery Method Oxygen Flow Rate Sepsis Recent Fever Within 48 Hours Sepsis New/Unexplained Change in Mental Status Sepsis Action Taken by Nursing Oxygen Flow Rate - Titration Pulse Oximetry Post Tiitration 09/02/22 13:30 09/02/22 13:40 09/02/22 13:50 Temperature Temperature Source Pulse Rate 88 85 85 Pulse Rate [Apical] Pulse Rate from SpO2 Sensor Respiratory Rate 21 21 26 H Blood Pressure Blood Pressure [Right Arm] Blood Pressure Mean Blood Pressure Mean [Right Arm] Blood Pressure Position Pulse Oximetry Oxygen Delivery Method Oxygen Flow Rate Sepsis Recent Fever Within 48 Hours Sepsis New/Unexplained Change in Mental Status Sepsis Action Taken by Nursing Oxygen Flow Rate - Titration Pulse Oximetry Post Tiitration 09/02/22 14:00 09/02/22 14:10 Temperature Temperature Source Pulse Rate 84 90 Pulse Rate [Apical] Pulse Rate from SpO2 Sensor Respiratory Rate 37 H 23 Blood Pressure Blood Pressure [Right Arm] Blood Pressure Mean Blood Pressure Mean [Right Arm] Blood Pressure Position Pulse Oximetry Oxygen Delivery Method Oxygen Flow Rate Sepsis Recent Fever Within 48 Hours Sepsis New/Unexplained Change in Mental Status Sepsis Action Taken by Nursing Oxygen Flow Rate - Titration Pulse Oximetry Post Tiitration General: Well-developed, well-nourished, elderly female, in no acute distress. Laying on the bed. Alert and oriented. She is currently wearing a nasal cannula receiving oxygen. No obvious discomfort. Skin: Warm and dry with good turgor. No rashes or lesions. No ecchymosis or erythema. The patient is not diaphoretic. No abrasions. HEENT: Normocephalic atraumatic. Eyes PERRLA, EOMI. No conjunctiva or scleral injection. Ears TMs intact bilaterally with good light reflexes. No erythema or bulging. No hemotympanum. Canals are patent. Nares patent bilaterally without turbinate enlargement. No significant drainage. No epistaxis. Mona pharynx without erythema or exudate. Uvula midline, oral mucosa moist. No lesions present. Heart: Heart RRR. No MGR. Peripheral pulses are 2+. Lungs: Lungs are clear to auscultation. No crackles rhonchi or wheezing. Fair air movement. The patient is able to take a deep breath. Abdomen: Abdomen was inspected, auscultated, and palpated. Bowel sounds present x 4. Soft, nontender to palpation. No hepato-splenomegaly. No masses noted. No rebound. No CVA tenderness. Musculoskeletal: Gross motor function of the upper and lower extremities is intact and unremarkable. Neurologic: Gross sensation is intact across the upper and lower extremities by soft touch. Course Administered Medications Allopurinol (Allopurinol 300 Mg Tab) 300 mg PO QPM [facility] Stop: 10/02/22 23:34 Last Admin: 09/03/22 00:26 Dose: 300 mg Documented By: GIOVANA Diltiazem HCl (Diltiazem Hcl 180 Mg Capcr) 360 mg PO QPM [facility] Stop: 10/02/22 23:44 Last Admin: 09/03/22 00:27 Dose: 360 mg Documented By: GIOVANA Heparin Sodium/Dextrose (Heparin Sodium/Dextrose) 25,000 units in 500 mls @ 23 mls/hr IV .[id number] [facility]; Protocol Stop: 10/02/22 12:59 Last Titration: 09/03/22 06:52 Dose: 950 units/hr, 19 mls/hr Documented By: GIOVANA Co-signed By: HIEN Titration: 09/02/22 21:11 Dose: 950 units/hr, 19 mls/hr Documented By: GIOVANA Co-signed By: MARICARMEN Titration: 09/02/22 20:08 Dose: 0 units/hr, 0 mls/hr Documented By: GIOVANA Co-signed By: HIEN Admin: 09/02/22 12:53 Dose: 1,150 units/hr, 23 mls/hr Documented By: KALINA Co-signed By: PIERCE Levothyroxine Sodium (Levothyroxine Sodium 137 Mcg Tablet) 137 mcg PO DAILYBB [facility] Stop: 10/03/22 06:29 Last Admin: 09/03/22 05:33 Dose: 137 mcg Documented By: GIOVANA Pantoprazole Sodium (Pantoprazole 40 Mg Tab) 40 mg PO BID [facility] Stop: 10/02/22 23:44 Last Admin: 09/03/22 00:26 Dose: 40 mg Documented By: GIOVANA Discontinued Medications Heparin Sodium (Porcine) (Heparin Sod (Porcine) 1000 Unit/Ml) 1 units IV NOW ONE Stop: 09/02/22 12:48 Last Admin: 09/02/22 12:53 Dose: 5,000 units Documented By: KALINA Co-signed By: PIERCE Heparin Sodium/Dextrose (Heparin Iv Adult Wt-Based Standard With Bolus Protocol) 1 each IV NOW [facility]; Protocol Stop: 09/02/22 12:32 Last Admin: 09/02/22 14:07 Dose: Not Given Documented By: KALINA Heparin Sodium/Dextrose (Heparin Iv Adult Wt-Based Standard *No* Bolus Protocol) 1 each IV Q15M [facility]; Protocol Stop: 09/02/22 19:40 Last Admin: 09/02/22 18:08 Dose: Not Given Documented By: Admin: 09/02/22 18:08 Dose: Not Given Documented By: HIEN Ioversol (Optiray 320 500ml) 113 ml IV ONCE ONE Stop: 09/02/22 11:47 Last Admin: 09/02/22 11:46 Dose: 113 ml Documented By: PAMELA Medical Decision Making Differential Diagnosis Pneumonia, PE, atelectasis, CHF, asthma flare, COPD Medical Records Attestation: I reviewed the patient's medical records. Home Medications Current Medication List: was personally reviewed by me Laboratory Data CBC obtained today shows a mild elevation in her white count at 12.48. H&H are normal. Normal platelets. INR is 1.0. Chemistry panel is unremarkable. Normal BUN and creatinine. Normal electrolytes. Glucose is normal. Troponin obtained today is elevated at 25.4. Urinalysis is unremarkable. 09/02/22 10:45 09/02/22 12:13 Lab Results 09/02/22 09/02/22 09/02/22 Range/Units 10:45 10:45 10:45 WBC 12.48 H (4.8-10.8) K/ul RBC 4.85 (4.20-5.40) M/uL Hgb 15.5 (12.0-16.0) g/dl Hct 47.5 H (37.0-47.0) % MCV 97.9 (80.0-100.0) fL MCH 32.0 (25.0-34.0) pg MCHC 32.6 (32.0-36.0) g/dL RDW Std Deviation 52.1 H (36.4-46.3) fL RDW Coeff of Agnes 14.4 (11.5-14.5) % Plt Count 379 (130-400) K/uL MPV 10.1 (9.4-12.4) fL Immature Gran % (Auto) 0.6 % Neut % (Auto) 76.0 % Lymph % (Auto) 11.5 % [place] % (Auto) 10.1 % Eos % (Auto) 0.8 % Baso % (Auto) 1.0 % Neut # (Auto) 9.49 H (1.40-6.50) K/uL Lymph # (Auto) 1.43 (1.2-3.4) K/uL [place] # (Auto) 1.26 H (0.11-0.59) K/uL Eos # (Auto) 0.10 (0-0.50) K/uL Baso # (Auto) 0.13 (0-0.2) K/uL Immature Gran # (Auto) 0.07 (0.01-0.20) K/uL PT 11.3 (9.0-12.0) Seconds INR 1.0 (0.9-1.1) APTT (21.0-31.0) Seconds PTT Ratio Sodium TNP Potassium TNP Chloride 107 (98-107) mmol/L Carbon Dioxide 25 (21-32) mmol/L Anion Gap TNP BUN 18 (6-23) mg/dl Creatinine 0.97 (0.6-1.2) mg/dl Est Cr Clr Drug Dosing Not Reportable Est GFR ( Amer) 65.3 ml/min Est GFR (Non-Af Amer) 56.3 ml/min BUN/Creatinine Ratio 18.6 (10-20) Glucose 116 H (70-99(Fasting)) mg/dl Calcium 9.5 (8.6-10.3) mg/dl Total Bilirubin 0.4 (0.2-1.0) mg/dl AST TNP ALT 9 (7-52) U/L Alkaline Phosphatase 86 (34-104) U/L Troponin I High Sens 25.4 H (0-14) pg/ml Total Protein 7.1 (6.0-8.3) gm/dl Albumin 3.7 (3.4-5.0) gm/dl Globulin 3.4 (2.5-4.0) gm/dl Albumin/Globulin Ratio 1.1 (0.9-2) 09/02/22 09/02/22 Range/Units 10:57 12:13 WBC (4.8-10.8) K/ul RBC (4.20-5.40) M/uL Hgb (12.0-16.0) g/dl Hct (37.0-47.0) % MCV (80.0-100.0) fL MCH (25.0-34.0) pg MCHC (32.0-36.0) g/dL RDW Std Deviation (36.4-46.3) fL RDW Coeff of Agnes (11.5-14.5) % Plt Count (130-400) K/uL MPV (9.4-12.4) fL Immature Gran % (Auto) % Neut % (Auto) % Lymph % (Auto) % [place] % (Auto) % Eos % (Auto) % Baso % (Auto) % Neut # (Auto) (1.40-6.50) K/uL Lymph # (Auto) (1.2-3.4) K/uL [place] # (Auto) (0.11-0.59) K/uL Eos # (Auto) (0-0.50) K/uL Baso # (Auto) (0-0.2) K/uL Immature Gran # (Auto) (0.01-0.20) K/uL PT (9.0-12.0) Seconds INR (0.9-1.1) APTT 27.2 (21.0-31.0) Seconds PTT Ratio 1.0 Sodium 139 Potassium 4.4 Chloride (98-107) mmol/L Carbon Dioxide (21-32) mmol/L Anion Gap BUN (6-23) mg/dl Creatinine (0.6-1.2) mg/dl Est Cr Clr Drug Dosing Est GFR ( Amer) ml/min Est GFR (Non-Af Amer) ml/min BUN/Creatinine Ratio (10-20) Glucose (70-99(Fasting)) mg/dl Calcium (8.6-10.3) mg/dl Total Bilirubin (0.2-1.0) mg/dl AST 6 L ALT (7-52) U/L Alkaline Phosphatase (34-104) U/L Troponin I High Sens (0-14) pg/ml Total Protein (6.0-8.3) gm/dl Albumin (3.4-5.0) gm/dl Globulin (2.5-4.0) gm/dl Albumin/Globulin Ratio (0.9-2) Imaging Data My Impression: Chest x-ray obtained today was interpreted by me and read by radiology. She has cardiomegaly without pulmonary edema. Possible small left pleural effusion. CT scan imaging of the chest following PE protocol obtained today was also reviewed by me and read by radiology. It suggests subacute healing fractures of the right lateral sixth and seventh ribs. She has extensive pulmonary emboli with associated right heart strain. No pleural effusion or pulmonary infarct. No pneumothorax. Radiologist's Impression: Chest CTA 09/02/22 10:34 CT angio chest PE protocol CT DOSE: 733.15 mGy.cm HISTORY: 77 years-old Female with Dyspnea. Acute shortness of breath. Subacute healing fractures of the right lateral sixth and seventh ribs. TECHNIQUE: Multiple CTA images of the chest were obtained after the intravenous administration of 113 ml Optiray. Coronal and sagittal MIPS were obtained from the axial data set and were submitted for review. All measurements were obtained according to NASCET criteria. A dose lowering technique was utilized adhering to the principles of ALARA. COMPARISON: CT abdomen and pelvis 08/18/2022, CTA chest 11/13/2018 FINDINGS: CTA: Mild cardiomegaly with left subclavian dual-lead pacer. No pericardial effusion. Moderate coronary artery calcifications. Reflux of contrast is noted into the IV C and hepatic veins. No thoracic aortic aneurysm. Straightening of the intraventricular septum. Extensive bilateral pulmonary emboli which involve the distal main pulmonary arteries extending into the lobar, segmental and subsegmental branches of all lobes. CT CHEST: No thyroid nodule or lymphadenopathy. Small right Bochdalek hernia. No pneumot horax, pleural effusion, airspace consolidation or overt pulmonary edema. Mild mucous plugging with areas of mosaic attenuation. Subsegmental bibasilar atelectasis. There are a few scattered bilateral solid pulmonary nodules measuring up to 3 mm (please see the book vazquez) which are stable and likely benign. Central airways are patent. Partially imaged 5.5 cm cyst of the interpolar left kidney with marginal calcification. Ill-defined increased attenuation of the renal pyramids of the left kidney. Large hiatal hernia. Unremarkable soft tissues. No acute fracture. Healing subacute fractures of the anterolateral right sixth and seventh ribs. IMPRESSION: 1. Extensive pulmonary emboli with associated right heart strain. 2. No pleural effusion or pulmonary infarct. 3. Healing subacute nondisplaced fractures of the right sixth and seventh ribs. 4. No pneumothorax. 5. Large hiatal hernia. ACT 112: Negative or not required by law. The above report was generated using voice recognition software. It may contain grammatical, syntax or spelling errors. Electronically signed by: Erasmo Stover M.D. 09/02/2022 12:11 PM Chest X-Ray 09/02/22 10:34 XR chest 1V portable HISTORY: 77 years-old Female Dyspnea acute shortness of breath COMPARISON: 08/18/2022 TECHNIQUE: AP view of the chest FINDINGS: Cardiac silhouette is enlarged. Left subclavian pacer. Mild subsegmental bibasilar densities. No pneumothorax, or overt pulmonary edema. Probable small left pleural effusion. Degenerative changes of the shoulders and spine. IMPRESSION: 1. Cardiomegaly without pulmonary edema. 2. Mild bibasilar opacities suggestive of atelectasis. 3. Probable small left pleural effusion. ACT 112: Negative or not required by law. The above report was generated using voice recognition software. It may contain grammatical, syntax or spelling errors. Electronically signed by: Erasmo Stover M.D. 09/02/2022 11:21 AM ECG Data Additional Comments: EKG obtained today was interpreted by me and reviewed with Dr. Lopez. It shows a sinus rhythm with a rate of 82. First-degree block. There are T wave inversions in the anterior, lateral, and inferior leads. These are new when compared to her EKG from August 18. Blood Pressure Blood Pressure Findings: Elevated blood pressure Blood Pressure Disposition: further management by hospitalist CHILANGO Narrative Patient was educated regarding today's findings. Conservative care measures were discussed. She was evaluated in room C5. The patient was hypoxic at presentation with saturations in the 80s. She was placed on O2 by nasal cannula at 3 L. Saturations remained in the mid 90s. She immediately stated she felt better. She was placed on a newborn hearing screener and remained so during her ED stay. She remained in a sinus rhythm with a rate in the mid 80s. Oxygen saturations remained adequate. IV was established. Labs were obtained. She states she was relatively immobile during her admission and spent most of her time in bed. Given that she is only on aspirin 81 mg daily for DVT prophylaxis, suspicion for PE was high. CT scan of the chest for PE was obtained. This was positive for extensive bilateral clots in all lobes. Adult heparin protocol was instituted giving an IV bolus. The patient was reevaluated several times during her ED stay. She remained stable and felt well with the oxygen in place. [facility] hospitalist service was consulted for admission. Please see that dictation for final management. The patient states she was on a newer anticoagulant in the past, but it was stopped after 6 months. Given her extensive history of DVT and PE, I am not sure why it was discontinued. It appears her aspirin 81 mg daily is not sufficient for prevention given her history and today's findings. The patient was seen in conjunction with Dr. Lopez, who also evaluated the p atient and concurred with today's diagnosis and treatment plan. Impression & Plan Pulmonary emboli Discharge Plan Visit Data Chief Complaint: Shortness of Breath/Dyspnea Stated Complaint: DIFFICULTY BREATHING ED Provider: Deangelo Lopez ED Midlevel Provider: Cyrus Zayas Discharge Problem: Pulmonary emboli Patient Disposition: Admitted As Inpatient Discharge Instructions Interventions: ED Discharge Assessment Last Done: 09/02/22 17:40
[2022-09-02 11:08] LABS: Basophils # (auto) 0.13 K/uL (0-0.2); Eosinophils % (auto) 0.8 %; Hematocrit (blood only) 47.5 % (37.0-47.0); Hemoglobin 15.5 g/dl (12.0-16.0); Immature Granulocytes # (auto) 0.07 K/uL (0.01-0.20); Immature Granulocytes % (auto) 0.6 %; Lymphocytes # (auto) 1.43 K/uL (1.2-3.4); Lymphocytes % (auto) 11.5 %; Mean Corpuscular Hgb Conc 32.6 g/dL (32.0-36.0); Mean Corpuscular Volume 97.9 fL (80.0-100.0); Mean Platelet Volume 10.1 fL (9.4-12.4); Monocytes # (auto) 1.26 K/uL (0.11-0.59); Monocytes % (auto) 10.1 %; Neutrophils # (auto) 9.49 K/uL (1.40-6.50); Platelet Count 379 K/uL (130-400); RDW Coefficient of Variation 14.4 % (11.5-14.5); RDW Standard Deviation 52.1 fL (36.4-46.3); Red Blood Count 4.85 M/uL (4.20-5.40); White Blood Count 12.48 K/ul (4.8-10.8)
--- NOTE | 2022-09-02 11:23 | XRay Report ---
XR chest 1V portable HISTORY: 77 years-old Female Dyspnea acute shortness of breath COMPARISON: 08/18/2022 TECHNIQUE: AP view of the chest FINDINGS: Cardiac silhouette is enlarged. Left subclavian pacer. Mild subsegmental bibasilar densities. No pneu mothorax, or overt pulmonary edema. Probable small left pleural effusion. Degenerative changes of the shoulders and spine. IMPRESSION: 1. Cardiomegaly without pulmonary edema. 2. Mild bibasilar opacities suggestive of atelectasis. 3. Probable small left pleural effusion. ACT 112: Negative or not required by law. The above report was generated using voice recognition software. It may contain grammatical, syntax o r spelling errors. Electronically signed by: Erasmo Stover M.D. 09/02/2022 11:21 AM
[2022-09-02 11:33] LABS: Alanine Aminotransferase 9 U/L (7-52); Albumin Globulin Ratio 1.1 (0.9-2); Albumin Level 3.7 gm/dl (3.4-5.0); Alkaline Phosphatase 86 U/L (34-104); BUN Creatinine Ratio 18.6 (10-20); Bilirubin,Total 0.4 mg/dl (0.2-1.0); Blood Urea Nitrogen 18 mg/dl (6-23); Calcium 9.5 mg/dl (8.6-10.3); Carbon Dioxide 25 mmol/L (21-32); Chloride 107 mmol/L (98-107); Est GFR (African American) 65.3 ml/min; Est GFR (Non-African American) 56.3 ml/min; Globulin 3.4 gm/dl (2.5-4.0); Glucose 116 mg/dl (70-99(Fasting)); Prothrombin Time 11.3 Seconds (9.0-12.0); Total Protein 7.1 gm/dl (6.0-8.3); Troponin I High Sensitivity 25.4 pg/ml (0-14)
[2022-09-02] MEDS ORDERED: OPTIRAY 320 500ml IV ONE (11:46)
--- NOTE | 2022-09-02 12:13 | CT Scan Report ---
CT angio chest PE protocol CT DOSE: 733.15 mGy.cm HISTORY: 77 years-old Female with Dyspnea. Acute shortness of breath. Subacute healing fractures of the right lateral sixth and seventh ribs. TECHNIQUE: Multiple CTA images of the chest were obtained after the intravenous administration of 113 ml Optiray. Coronal and sagittal MIPS were obtained from the axial data set and were submitted for review. All measurements were obtained according to NASCET criteria. A dose lowering technique was u tilized adhering to the principles of ALARA. COMPARISON: CT abdomen and pelvis 08/18/2022, CTA chest 11/13/2018 FINDINGS: CTA: Mild cardiomegaly with left subclavian dual-lead pacer. No pericardial effusion. Moderate coronary ar rosy calcifications. Reflux of contrast is noted into the IVC and hepatic veins. No thoracic aortic a neurysm. Straightening of the intraventricular septum. Extensive bilateral pulmonary emboli which inv olve the distal main pulmonary arteries extending into the lobar, segmental and subsegmental branches of all lobes. CT CHEST: No thyroid nodule or lymphadenopathy. Small right Bochdalek hernia. No pneumothorax, pleural effusion , airspace consolidation or overt pulmonary edema. Mild mucous plugging with areas of mosaic attenuat ion. Subsegmental bibasilar atelectasis. There are a few scattered bilateral solid pulmonary nodules measuring up to 3 mm (please see the book vazquez) which are stable and likely benign. Central airways are patent. Partially imaged 5.5 cm cyst of the interpolar left kidney with marginal calcification. Ill-defined i ncreased attenuation of the renal pyramids of the left kidney. Large hiatal hernia. Unremarkable soft tissues. No acute fracture. Healing subacute fractures of the anterolateral right sixth and seventh ribs. IMPRESSION: 1. Extensive pulmonary emboli with associated right heart strain. 2. No pleural effusion or pulmonary infarct. 3. Healing subacute nondisplaced fractures of the right sixth and seventh ribs. 4. No pneumothorax. 5. Large hiatal hernia. ACT 112: Negative or not required by law. The above report was generated using voice recognition software. It may contain grammatical, syntax o r spelling errors. Electronically signed by: Erasmo Stover M.D. 09/02/2022 12:11 PM
[2022-09-02] MEDS ORDERED: Heparin IV Adult Wt-Based Standard WITH Bolus Protocol IV STA (12:31)
[2022-09-02] MEDS ORDERED: HEPARIN SOD (PORCINE) 1000 UNIT/ML IV ONE (12:47)
[2022-09-02] MEDS: HEPARIN SODIUM/DEXTROSE 25,000 UNITS/500 ML BAG IV SCH (12:53)
[2022-09-02 12:56] LABS: Potassium 4.4 mmol/L (3.5-5.1)
[2022-09-02] MEDS ORDERED: ALUMINUM/MAGNESIUM SUSP 30 ML UDC PO PRN (14:15)
[2022-09-02] MEDS ORDERED: POLYETHYLENE (MIRALAX) 17 GM PACK PO PRN (14:15)
[2022-09-02] MEDS ORDERED: ONDANSETRON INJ 2 MG/ML 2 ML VIAL IV PRN (14:15)
[2022-09-02] MEDS ORDERED: ACETAMINOPHEN 325 MG TAB PO PRN (14:15)
--- NOTE | 2022-09-02 15:08 | History & Physical Report ---
Date of Service September 02, 2022 Assessment & Plan (1) Pulmonary emboli: (2) Astrovirus gastroenteritis: (3) Acute diverticulitis: (4) Ischemic cardiomyopathy: (5) CAD in [place] artery: (6) Hiatal hernia: (7) Tachy-chintan syndrome: (8) Asthma exacerbation, mild: (9) Status post biventricular pacemaker: (10) Hypothyroidism: (11) Gout: Plan 77yoF with a PMHx of hiatal hernia, mild asthma, CAD, history of tachybradycardia syndrome, ischemic cardiomyopathy, HTN, HLD, CKD stage III, hypothyroidism, GERD, history of DVT/PE recently discharged after a bout of acute diverticulitis presenting with SOB and extensive PEs with heart strain. PE with heart strain Pt hypoxic on arrival with spO2 at 84, requiring 3L of oxygen. Does not use oxygen at home. CTA chest with "Extensive pulmonary emboli with associated right heart strain. 2. No pleural effusion or pulmonary infarct." Was on DVT prophylaxis while hospitalized. EKG with first degree heart block, Echo pending Heparin bolus in the ED, continue with heparin Telemetry monitoring Pt states she had IVC filter removed about 7-8 years ago. Unsure why she was taken off anticoagulation in the past. States that she has had 4-5 episodes of acute DVT/PE usually after a procedure though she notes she did not have a procedure currently. Consider hypercoagulable workup. Will defer on ordering inpatient due to cost and as pt currently started on anticoagulation. Will likely need chronic/lifetime anticoagulation. Consider hematology consult. Oxygen supplementation as needed Acute Diverticulitis/Astrovirus gastroenteritis Currently symptoms have resolved. GERD/Hiatal hernia: Continue pantoprazole, famotidine Tachy-chintan syndrome/Ischemic cardiomyopathy: s/p dual chamber pacemaker. Continue Cardizem CAD in [place] artery: Continue aspirin, statin Hypertension: continue tenormin Hypothyroidism: Continue levothyroxine Gout: continue home allopurinol HLD- continue home statin CKD- stable CODE STATUS: Full code DVT Px:On heparin Diet: HH Disposition-PCU/tele given extensive PE burden and current heart strain History of Present Illness Primary Care Provider: Rafa Bergman MD 77yoF with a PMHx of hiatal hernia, mild asthma, CAD, history of tachybradycardia syndrome, ischemic cardiomyopathy, HTN, HLD, CKD stage III, hypothyroidism, GERD, history of DVT/PE recently discharged after a bout of acute diverticulitis presenting with SOB and extensive PEs with heart strain. States that she had persistent SOB from the day of discharge 2-3 days ago. Thought it would go away on its own but it never did. She states that she has a Hx of recurrent DVT/PE but they usually occur after she has procedures. Does note that she did not have a procedure at her last admission.Had an IVC filter placed at one point but states she had it removed about 7-8 years ago. States she is comfortable breathing right now but denies any lower extremity swelling or pain. Was on DVT prophylaxis while hospitalized. Allergies Allergy/AdvReac Type Severity Reaction Status Date / Time imipenem Allergy Severe ANAPHYLAXIS Verified 09/02/22 15:13 Sulfa (Sulfonamide Allergy Severe hives,sob, Verified 09/02/22 15:13 Antibiotics) can take Dyazide daptomycin AdvReac Severe Anaphylaxis Unverified 09/02/22 15:13 colchicine AdvReac Intermediate diarrhea Verified 09/02/22 15:13 metoprolol AdvReac Mild fatigue Verified 09/02/22 15:13 zoledronic acid AdvReac Mild NAUSEA AND Verified 09/02/22 15:13 VOMITING Home Medications Medication Instructions Recorded Confirmed Type cholecalciferol (vitamin D3) 50 2,000 unit PO QAM 04/28/18 09/02/22 History mcg (2,000 unit) tablet (Vitamin D3) fexofenadine 180 mg tablet 180 mg PO DAILY PRN Allergy 04/28/18 09/02/22 History (Elke Allergy) Symptoms pumpkin seed extract-soy germ 300 1 cap PO QAM 04/28/18 09/02/22 History mg capsule (Azo Bladder Control) nitroglycerin 0.4 mg sublingual 0.4 mg sublingual Q5M chest pain 05/01/18 09/02/22 Rx tablet (Nitrostat) #25 tabs aspirin 81 mg tablet,delayed 81 mg PO HS #0 tabs 05/16/18 09/02/22 Rx release fluticasone propionate 50 2 spray intranasal QAM 06/03/18 09/02/22 History mcg/actuation nasal spray,suspension (Flonase Allergy Relief) dicyclomine 20 mg tablet 20 mg PO TID PRN IBS 02/12/19 09/02/22 History allopurinol 300 mg tablet 150 mg PO QAM 01/23/21 09/02/22 History coenzyme Q10 100 mg capsule 100 mg PO DAILY 01/23/21 09/02/22 History (CoQ-10) diltiazem HCl 360 mg 360 mg PO QPM 01/23/21 09/02/22 History tablet,extended release 24 hr levothyroxine 137 mcg tablet 137 mcg PO DAILYBB 01/23/21 09/02/22 History rosuvastatin 5 mg tablet 5 mg PO DAILY 01/23/21 09/02/22 History pantoprazole 40 mg tablet,delayed 40 mg PO BID #60 tabs 01/24/21 09/02/22 Rx release allopurinol 300 mg tablet 300 mg PO QPM 08/18/22 09/02/22 History atenolol 25 mg tablet 12.5 mg PO DAILY 08/18/22 09/02/22 History cholecalciferol (vitamin D3) 25 25 mcg PO DAILY 08/18/22 09/02/22 History mcg (1,000 unit) tablet famotidine 20 mg tablet 20 mg PO DAILY 08/18/22 09/02/22 History loperamide 2 mg tablet 2 mg PO QID PRN Diarrhea 08/18/22 09/02/22 History Past Med/Surg History Medical History CAD (coronary artery disease) Dyslipidemia GERD (gastroesophageal reflux disease) History of DVT (deep vein thrombosis) History of non-ST elevation myocardial infarction (NSTEMI) History of pulmonary embolism Hypertension (Unknown) BP better today continue higher dose of metoprolol 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 Hypothyroidism Ischemic cardiomyopathy Non-ST elevated myocardial infarction (non-STEMI) Osteoporosis Retinal vein occlusion of right eye Rupture of left posterior tibialis tendon Vitamin B12 deficiency Surgical History History of cardiac cath S/P BSO (status post bilateral salpingo-oophorectomy) S/P IVC filter Status post biventricular pacemaker Status post hysterectomy Status post right knee replacement Family History Father Coronary heart disease Heart disease Mother Stroke Allergies Grandmother Asthma Grandfather Asthma Other Hypertension No family history of adverse response to anesthesia No family history of bleeding disorder Social History Smoking Status: Never smoker Second Hand Exposure: No; Do You Dip or Chew Tobacco: No; Hx Alcohol Use: No Hx Substance Use: No Preferred Language: Belarusian Communication Ability: Effective 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 No acute distress, nasal cannula in nares Skin: No noted rashes or bruises Psych: Appropriate mood and affect Neuro: No gross deficits HEENT: NC/AT, CV: RRR, Normal s1, s2. No murmurs appreciated Resp: Breath sounds clear bilaterally, no increased effort of breathing. No crackles/rhonchi/rales. Abdomen: Soft, nontender, nondistended. Extremities: Trace edema in lower extremities bilaterally. Results & Data Results & Data Vital Signs (Past 12 Hours) Vital Signs Temp Pulse Pulse Resp BP BP Pulse Ox 09/02/22 11:00 80 18 95 09/02/22 10:50 80 20 95 09/02/22 10:40 81 23 95 09/02/22 10:30 81 19 95 09/02/22 10:22 130/79 09/02/22 10:22 80 13 09/02/22 10:20 81 20 09/02/22 10:15 81 19 09/02/22 10:57 94 09/02/22 10:55 09/02/22 10:24 76 20 130/79 94 09/02/22 10:23 09/02/22 10:22 82 09/02/22 10:01 35.8 C L 81 24 96/63 L 84 L O2 Del Method O2 Flow Rate 09/02/22 11:00 09/02/22 10:50 09/02/22 10:40 09/02/22 10:30 09/02/22 10:22 09/02/22 10:22 09/02/22 10:20 09/02/22 10:15 09/02/22 10:57 Nasal Cannula 4 09/02/22 10:55 Nasal Cannula 4 09/02/22 10:24 Nasal Cannula 4 09/02/22 10:23 Nasal Cannula 09/02/22 10:22 09/02/22 10:01 Room Air Diagnostic Findings Chest CTA 09/02/22 10:34 CT angio chest PE protocol CT DOSE: 733.15 mGy.cm HISTORY: 77 years-old Female with Dyspnea. Acute shortness of breath. Subacute healing fractures of the right lateral sixth and seventh ribs. TECHNIQUE: Multiple CTA images of the chest were obtained after the intravenous administration of 113 ml Optiray. Coronal and sagittal MIPS were obtained from the axial data set and were submitted for review. All measurements were obtained according to NASCET criteria. A dose lowering technique was utilized adhering to the principles of ALARA. COMPARISON: CT abdomen and pelvis 08/18/2022, CTA chest 11/13/2018 FINDINGS: CTA: Mild cardiomegaly with left subclavian dual-lead pacer. No pericardial effusion. Moderate coronary artery calcifications. Reflux of contrast is noted into the IVC and hepatic veins. No thoracic aortic aneurysm. Straightening of the intraventricular septum. Extensive bilateral pulmonary emboli which involve the distal main pulmonary arteries extending into the lobar, segmental and subsegmental branches of all lobes. CT CHEST: No thyroid nodule or lymphadenopathy. Small right Bochdalek hernia. No pneumothorax, pleural effusion, airspace consolidation or overt pulmonary edema. Mild mucous plugging with areas of mosaic attenuation. Subsegmental bibasilar atelectasis. There are a few scattered bilateral solid pulmonary nodules measuring up to 3 mm (please see the book vazquez) which are stable and likely benign. Central airways are patent. Partially imaged 5.5 cm cyst of the interpolar left kidney with marginal calcification. Ill-defined increased attenuation of the renal pyramids of the left kidney. Large hiatal hernia. Unremarkable soft tissues. No acute fracture. Healing subacute fractures of the anterolateral right sixth and seventh ribs. IMPRESSION: 1. Extensive pulmonary emboli with associated right heart strain. 2. No pleural effusion or pulmonary infarct. 3. Healing subacute nondisplaced fractures of the right sixth and seventh ribs. 4. No pneumothorax. 5. Large hiatal hernia. ACT 112: Negative or not required by law. The above report was generated using voice recognition software. It may contain grammatical, syntax or spelling errors. Electronically signed by: Erasmo Stover M.D. 09/02/2022 12:11 PM Chest X-Ray 09/02/22 10:34 XR chest 1V portable HISTORY: 77 years-old Female Dyspnea acute shortness of breath COMPARISON: 08/18/2022 TECHNIQUE: AP view of the chest FINDINGS: Cardiac silhouette is enlarged. Left subclavian pacer. Mild subsegmental bibasilar densities. No pneumothorax, or overt pulmonary edema. Probable small left pleural effusion. Degenerative changes of the shoulders and spine. IMPRESSION: 1. Cardiomegaly without pulmonary edema. 2. Mild bibasilar opacities suggestive of atelectasis. 3. Probable small left pleural effusion. ACT 112: Negative or not required by law. The above report was generated using voice recognition software. It may contain grammatical, syntax or spelling errors. Electronically signed by: Erasmo Stover M.D. 09/02/2022 11:21 AM
--- NOTE | 2022-09-02 15:19 | Emergency Department Note ---
ED Visit Note I have personally evaluated this patient examined her and reviewed the pertinent labs and data. I have discussed the case with Wood Del Cid the physician bookkeeping assistant and agree with the plan. Please refer to the PA note This patient was recently hospitalized for diverticulitis among other medical issues, comes in after an shortness of breath. She has a history of PEs she had a filter in the past but it was removed due to some complications she has had no problems with anticoagulation the past she tells me she initially was hypoxemic but is doing much better on oxygen says she feels well. She appears well on my exam and is in no distress. She is nontachycardic. CAT scan shows bilateral PEs with a significant clot burden when I looked at her CAT scan there is no saddle emboli. We did use IV heparin bolus and hourly rate of consult the hospitalist to see her for admission. .
[2022-09-02 15:26] LABS: Appearance Urine Clear (Clear); Bilirubin Urine Negative (Negative); Blood Urine Negative (Negative); Color Urine Yellow; Glucose Urine UA Negative (Negative); Ketones Urine Negative (Negative); Leukocyte Esterase Urine Negative (Negative); Nitrite Urine Negative (Negative); Protein Urine Negative (Negative); Specific Gravity Urine > 1.045 (1.000-1.030); Urobilinogen Urine Negative (Negative)
[2022-09-02] MEDS ORDERED: HEPARIN SODIUM/DEXTROSE 25,000 UNITS/500 ML BAG IV SCH (17:54)
[2022-09-02] MEDS: Heparin IV Adult Wt-Based Standard *NO* Bolus Protocol IV SCH (18:08)
[2022-09-02 18:26] LABS: Partial Thromboplastin Time 27.2 Seconds (21.0-31.0)
[2022-09-02 19:59] LABS: Partial Thromboplastin Ratio 3.8
[2022-09-02 20:06] LABS: Partial Thromboplastin Time 108.5 Seconds (21.0-31.0)
[2022-09-02] MEDS ORDERED: DICYCLOMINE HCL 20 MG TAB PO PRN (23:33)
[2022-09-02] MEDS ORDERED: LOPERAMIDE HCL 2 MG CAP PO PRN (23:39)
[2022-09-02] MEDS ORDERED: NITROGLYCERIN SL 0.4 MG/TAB TAB SL SCH (23:45)
[2022-09-03] MEDS ORDERED: NITROGLYCERIN SL 0.4 MG/TAB TAB SL PRN (00:19)
[2022-09-03] MEDS: allopurinoL 300 MG TAB PO SCH ×3 (00:26→20:15)
[2022-09-03] MEDS: PANTOprazole 40 MG TAB PO SCH ×3 (00:26→20:14)
[2022-09-03] MEDS: dilTIAZem HCL 180 MG CAPCR PO SCH ×2 (00:27→20:21)
[2022-09-03 04:18] LABS: Basophils # (auto) 0.15 K/uL (0-0.2); Basophils % (auto) 1.6 %; Eosinophils # (auto) 0.25 K/uL (0-0.50); Eosinophils % (auto) 2.6 %; Hematocrit (blood only) 39.4 % (37.0-47.0); Hemoglobin 12.8 g/dl (12.0-16.0); Immature Granulocytes # (auto) 0.05 K/uL (0.01-0.20); Immature Granulocytes % (auto) 0.5 %; Lymphocytes # (auto) 2.11 K/uL (1.2-3.4); Mean Corpuscular Hemoglobin 31.8 pg (25.0-34.0); Mean Corpuscular Hgb Conc 32.5 g/dL (32.0-36.0); Mean Corpuscular Volume 97.8 fL (80.0-100.0); Mean Platelet Volume 9.6 fL (9.4-12.4); Monocytes # (auto) 1.35 K/uL (0.11-0.59); Monocytes % (auto) 14.1 %; Neutrophils # (auto) 5.69 K/uL (1.40-6.50); Neutrophils % (auto) 59.2 %; Platelet Count 333 K/uL (130-400); RDW Coefficient of Variation 14.3 % (11.5-14.5); RDW Standard Deviation 51.8 fL (36.4-46.3); Red Blood Count 4.03 M/uL (4.20-5.40)
[2022-09-03 04:25] LABS: BUN Creatinine Ratio 20.3 (10-20); Calcium 8.5 mg/dl (8.6-10.3); Creatinine Clr Calc Pharmacy 58.3 ml/min; Est GFR (African American) 83.7 ml/min; Est GFR (Non-African American) 72.2 ml/min; Potassium 3.9 mmol/L (3.5-5.1)
[2022-09-03 04:57] LABS: Partial Thromboplastin Ratio 1.8; Prothrombin Time 11.4 Seconds (9.0-12.0)
[2022-09-03 05:04] LABS: Partial Thromboplastin Time 49.6 Seconds (21.0-31.0)
[2022-09-03] MEDS: LEVOTHYROXINE SODIUM 137 MCG TABLET PO SCH (05:33)
[2022-09-03] MEDS: ATENOLOL 25 MG TABLET PO SCH (08:07)
[2022-09-03] MEDS: ROSUVASTATIN CALCIUM 5 MG TAB PO SCH (08:08)
[2022-09-03] MEDS: FLUTICASONE PROPIONATE NA SPR 16 GM BTL SCH (08:08)
[2022-09-03] MEDS: FAMOTIDINE 20 MG TAB PO SCH (08:08)
[2022-09-03] MEDS ORDERED: NON-FORMULARY MEDICATION (Pumpkin Seed Extract-Soy Germ [Azo Bladder Control] 300 mg Capsu PO SCH (09:00)
--- NOTE | 2022-09-03 10:35 | Hospitalist Progress Note ---
Date of Service September 03, 2022 Assessment & Plan (1) Pulmonary emboli: (2) Ischemic cardiomyopathy: (3) CAD in [place] artery: (4) Hiatal hernia: (5) Tachy-chintan syndrome: (6) Status post biventricular pacemaker: (7) Hypothyroidism: Plan 77yoF with a PMHx of hiatal hernia, mild asthma, CAD, history of tachybradycardia syndrome, ischemic cardiomyopathy, HTN, HLD, CKD stage III, hypothyroidism, GERD, history of DVT/PE recently discharged after a bout of acute diverticulitis presenting with SOB and extensive PEs with heart strain. CTA chest: Extensive bilateral pulmonary emboli which involve the distal main pulmonary arteries extending into the lobar, segmental and subsegmental branches of all lobes, with right heart strain. 2. No pleural effusion or pulmonary infarct Echo- EF 55-60%, RV mildly enlarged, Harry Sign is present, RV systolic fu nction is normal, no significant valvular disease. RV systolic pressure at 40-45 mmg Hg B/L LE US pending Acute bilateral pulmonary emboli with right heart strain H/o multiple VTE episodes and was on coumadin and eliquis in past. Also had IVC filter which was removed about 7-[address] and echo as above. US LE pending Continue heparin drip for now Switch to eliquis when stable for discharge Recommend lifelong anticoagulation given recurrent VTE episodes Continue telemetry Acute hypoxic respiratory failure due to PE Pt hypoxic on arrival with spO2 at 84, requiring 3L of oxygen. Does not use oxygen at home. Now on 4 L NC. Continue supplemental oxygen, wean down as tolerated GERD/Hiatal hernia: Continue pantoprazole, famotidine Tachy-chintan syndrome/Ischemic cardiomyopathy: s/p dual chamber pacemaker. Continue Cardizem CAD in [place] artery: Continue aspirin, statin Hypertension: continue tenormin Hypothyroidism: Continue levothyroxine Gout: continue home allopurinol HLD: continue home statin CKD: stable DVT Px:On heparin Disposition- Continue current level of care on heparin drip. Admission and Anticipated Discharge Date Admission Date: September 02, 2022 Subjective Patient was seen and examined at bedside. States she felt short of breath upon returning home with exertion and came back with blood clots. She feels little better. No fever, chills, chest pain, N/V. Diarrhea is resolved. States she was on coumadin and eliquis in the past. She states her eliquis copay would be $60 and she would like to start eliquis when ready to switch. Review of Systems Review of Systems: All systems reviewed & are unremarkable except as noted in Subjective Physical Exam Physical Exam: General: Lying comfortably in bed, not in distress, on NC HEENT: EOMI, LORE, MMM Chest: Decreased breath sounds bilaterally, no wheezes or crackles CVS: Regular rate and rhythm, normal heart sounds, no murmur Abdomen: Soft, non tender, not distended, normal bowel sounds Neuro: Awake, alert, oriented, conversing well, non focal Extremities: No cyanosis, clubbing. trace chronic edema Results & Data Results & Data Vital Signs (Past 12 Hours) Vital Signs Temp Pulse Pulse Resp BP Pulse Ox O2 Del Method 09/03/22 07:45 36.7 C 81 19 121/79 94 Nasal Cannula 09/03/22 03:29 36.5 C 86 18 144/82 H 92 Nasal Cannula 09/03/22 00:00 94 H 09/03/22 00:52 Nasal Cannula 09/03/22 00:17 36.7 C 89 18 135/80 94 Nasal Cannula O2 Flow Rate 09/03/22 07:45 4 09/03/22 03:29 4.0 09/03/22 00:00 09/03/22 00:52 2 09/03/22 00:17 4.0 Laboratory Results Short CBC 09/02/22 09/03/22 Range/Units 10:45 03:52 WBC 12.48 H 9.60 (4.8-10.8) K/ul Hgb 15.5 12.8 (12.0-16.0) g/dl Hct 47.5 H 39.4 (37.0-47.0) % Plt Count 379 333 (130-400) K/uL BMP 09/02/22 09/02/22 09/03/22 10:45 12:13 03:52 Sodium TNP 139 140 Potassium TNP 4.4 3.9 Chloride 107 108 H Carbon Dioxide 25 26 BUN 18 16 Creatinine 0.97 0.79 Glucose 116 H 109 H Calcium 9.5 8.5 L Liver Function 09/02/22 09/02/22 Range/Units 10:45 12:13 Total Bilirubin 0.4 (0.2-1.0) mg/dl AST TNP 6 L ALT 9 (7-52) U/L Alkaline Phosphatase 86 (34-104) U/L Albumin 3.7 (3.4-5.0) gm/dl Urine 09/02/22 Range/Units 15:04 Urine Color Yellow Urine Appearance Clear (Clear) Urine pH 5.0 (4.5-7.5) Ur Specific [place] > 1.045 H (1.000-1.030) Urine Protein Negative (Negative) Urine Glucose (UA) Negative (Negative) Medications Administered Current Inpatient Medications Acetaminophen (Acetaminophen 325 Mg Tab) 650 mg PO Q4H PRN PRN Reason: Pain or Fever Stop: 10/02/22 14:14 Al Hydrox/Mg Hydrox/Simethicone (Aluminum/Magnesium Susp 30 Ml Udc) 15 ml PO Q4H PRN PRN Reason: Dyspepsia Stop: 10/02/22 14:14 Allopurinol (Allopurinol 300 Mg Tab) 150 mg PO QAM NANY Stop: 10/03/22 08:59 Last Admin: 09/03/22 08:04 Dose: 150 mg Allopurinol (Allopurinol 300 Mg Tab) 300 mg PO QPM NANY Stop: 10/02/22 23:34 Last Admin: 09/03/22 00:26 Dose: 300 mg Aspirin (Aspirin 81 Mg Ectab) 81 mg PO HS [facility] Stop: 10/03/22 20:59 Atenolol (Atenolol 25 Mg Tablet) 12.5 mg PO DAILY NANY Stop: 10/03/22 08:59 Last Admin: 09/03/22 08:07 Dose: 12.5 mg Dicyclomine HCl (Dicyclomine Hcl 20 Mg Tab) 20 mg PO TID PRN PRN Reason: IBS Stop: 10/02/22 23:32 Last Admin: 09/03/22 08:07 Dose: 20 mg Diltiazem HCl (Diltiazem Hcl 180 Mg Capcr) 360 mg PO QPM NANY Stop: 10/02/22 23:44 Last Admin: 09/03/22 00:27 Dose: 360 mg Famotidine (Famotidine 20 Mg Tab) 20 mg PO DAILY NANY Stop: 10/03/22 08:59 Last Admin: 09/03/22 08:08 Dose: 20 mg Fluticasone Propionate (Fluticasone Propionate Na Spr 16 Gm Btl) 2 sprays NA QAM [facility] Stop: 10/03/22 08:59 Last Admin: 09/03/22 08:08 Dose: 2 sprays Heparin Sodium/Dextrose (Heparin Sodium/Dextrose) 25,000 units in 500 mls @ 23 mls/hr IV .[id number] [facility]; Protocol Stop: 10/02/22 12:59 Last Titration: 09/03/22 06:52 Dose: 950 units/hr, 19 mls/hr Levothyroxine Sodium (Levothyroxine Sodium 137 Mcg Tablet) [facility] Stop: 10/03/22 06:29 Last Admin: 09/03/22 05:33 Dose: 137 mcg Loperamide HCl (Loperamide Hcl 2 Mg Cap) 2 mg PO QID PRN PRN Reason: Diarrhea Stop: 10/02/22 23:38 Nitroglycerin (Nitroglycerin Sl 0.4 Mg/Tab Tab) 0.4 mg SL Q5M PRN PRN Reason: chest pain Stop: 10/02/22 23:44 Ondansetron HCl (Ondansetron Inj 2 Mg/Ml 2 Ml Vial) 4 mg IV Q6H PRN PRN Reason: Nausea Stop: 10/02/22 14:14 Pantoprazole Sodium (Pantoprazole 40 Mg Tab) 40 mg PO BID [facility] Stop: 10/02/22 23:44 Last Admin: 09/03/22 08:06 Dose: 40 mg Polyethylene Glycol (Polyethylene (Miralax) 17 Gm Pack) 17 gm PO DAILY PRN PRN Reason: Constipation Stop: 10/02/22 14:14 Rosuvastatin Calcium (Rosuvastatin Calcium 5 Mg Tab) 5 mg PO DAILY [facility] Stop: 10/03/22 08:59 Last Admin: 09/03/22 08:08 Dose: 5 mg
--- NOTE | 2022-09-03 11:58 | Ultrasound Report ---
US venous doppler LE BI CLINICAL HISTORY: eval for DVT TECHNIQUE: Bilateral lower extremity real-time compression venous ultrasound with Color Doppler imagi ng. Utilizing real-time ultrasonic imaging multiple real time high-resolution ultrasonic images with compression and noncompression maneuvers of the deep venous system in addition to color doppler imagi ng were performed from the common femoral vein through the proximal calf veins. COMPARISON: None available at the time of this dictation. FINDINGS/IMPRESSION: There is an occlusive thrombus in the left mid femoral vein. No right-sided thrombus is seen. No supe rficial venous thrombosis is identified. ACT 112: Negative or not required by law. Electronically signed by: Rafael Solitario M.D. 09/03/2022 11:57 AM
[2022-09-03] MEDS: HEPARIN SODIUM/DEXTROSE 25,000 UNITS/500 ML BAG IV SCH (13:43)
[2022-09-03] MEDS: Heparin IV Adult Wt-Based Standard *NO* Bolus Protocol IV SCH ×3 (19:29→19:31)
[2022-09-03] MEDS: ASPIRIN 81 MG ECTAB PO SCH (20:15)
--- NOTE | 2022-09-03 22:36 | Electrocardiogram Report ---
Test Reason : Blood Pressure : / mmHG Vent. Rate : 082 BPM Atrial Rate : 082 BPM P-R Int : 216 ms QRS Dur : 078 ms QT Int : 398 ms P-R-T Axes : 042 020 -06 degrees QTc Int : 466 ms Sinus rhythm with 1st degree A-V block Possible Left atrial enlargement T wave abnormality, consider inferior ischemia Abnormal ECG When compared with ECG of 18-AUG-2022 08:28, HI interval has increased T wave inversion now evident in Inferior leads T wave inversion more evident in Anterolateral leads Confirmed by Avi Rocha [id number] on 09/03/2022 10:36:24 PM Referred By: REFERRED SELF Confirmed By:Avi Rocha
[2022-09-04] MEDS: LEVOTHYROXINE SODIUM 137 MCG TABLET PO SCH (06:14)
[2022-09-04 06:32] LABS: BUN Creatinine Ratio 16.9 (10-20); Basophils # (auto) 0.14 K/uL (0-0.2); Basophils % (auto) 1.8 %; Calcium 8.7 mg/dl (8.6-10.3); Creatinine Clr Calc Pharmacy 56.7 ml/min; Eosinophils # (auto) 0.27 K/uL (0-0.50); Eosinophils % (auto) 3.6 %; Est GFR (African American) 78.8 ml/min; Hematocrit (blood only) 39.2 % (37.0-47.0); Hemoglobin 12.5 g/dl (12.0-16.0); Immature Granulocytes # (auto) 0.09 K/uL (0.01-0.20); Immature Granulocytes % (auto) 1.2 %; Lymphocytes # (auto) 2.26 K/uL (1.2-3.4); Lymphocytes % (auto) 29.7 %; Mean Corpuscular Hemoglobin 31.6 pg (25.0-34.0); Mean Corpuscular Hgb Conc 31.9 g/dL (32.0-36.0); Mean Platelet Volume 10.2 fL (9.4-12.4); Monocytes # (auto) 1.12 K/uL (0.11-0.59); Monocytes % (auto) 14.7 %; Neutrophils # (auto) 3.72 K/uL (1.40-6.50); Platelet Count 318 K/uL (130-400); Potassium 3.8 mmol/L (3.5-5.1); RDW Coefficient of Variation 14.5 % (11.5-14.5); RDW Standard Deviation 52.2 fL (36.4-46.3); Red Blood Count 3.96 M/uL (4.20-5.40)
[2022-09-04 06:55] LABS: Partial Thromboplastin Ratio 1.4
[2022-09-04 06:59] LABS: Partial Thromboplastin Time 40.1 Seconds (21.0-31.0)
[2022-09-04] MEDS: ROSUVASTATIN CALCIUM 5 MG TAB PO SCH (08:48)
[2022-09-04] MEDS: PANTOprazole 40 MG TAB PO SCH ×2 (08:48→20:58)
[2022-09-04] MEDS: ATENOLOL 25 MG TABLET PO SCH (08:48)
[2022-09-04] MEDS: allopurinoL 300 MG TAB PO SCH ×2 (08:49→20:58)
[2022-09-04] MEDS: FAMOTIDINE 20 MG TAB PO SCH (08:49)
[2022-09-04] MEDS: FLUTICASONE PROPIONATE NA SPR 16 GM BTL SCH ×2 (08:50)
--- NOTE | 2022-09-04 13:25 | Hospitalist Progress Note ---
Date of Service September 04, 2022 Assessment & Plan (1) Pulmonary emboli: (2) Ischemic cardiomyopathy: (3) CAD in [place] artery: (4) Hiatal hernia: (5) Tachy-chintan syndrome: (6) Status post biventricular pacemaker: (7) Hypothyroidism: Plan 77yoF with a PMHx of hiatal hernia, mild asthma, CAD, history of tachybradycardia syndrome, ischemic cardiomyopathy, HTN, HLD, CKD stage III, hypothyroidism, GERD, history of DVT/PE recently discharged after a bout of acute diverticulitis presenting with SOB and extensive PEs with heart strain. CTA chest: Extensive bilateral pulmonary emboli which involve the distal main pulmonary arteries extending into the lobar, segmental and subsegmental branches of all lobes, with right heart strain. 2. No pleural effusion or pulmonary infarct Echo- EF 55-60%, RV mildly enlarged, Harry Sign is present, RV systolic fu nction is normal, no significant valvular disease. RV systolic pressure at 40-45 mmg Hg B/L LE US: There is an occlusive thrombus in the left mid femoral vein. No right-sided thrombus is seen. No superficial venous thrombosis is identified. Acute bilateral pulmonary emboli with right heart strain, DVT LLE H/o multiple VTE episodes and was on coumadin and eliquis in past. Also had IVC filter which was removed about 7-[address], US and echo as above. Continue heparin drip for now Switch to eliquis when stable for discharge Recommend lifelong anticoagulation given recurrent VTE episodes Continue telemetry Acute hypoxic respiratory failure due to PE Pt hypoxic on arrival with spO2 at 84, requiring 3L of oxygen. Does not use oxygen at home. Now on 4 L NC. Continue supplemental oxygen, wean down as tolerated GERD/Hiatal hernia: Continue pantoprazole, famotidine Tachy-chintan syndrome/Ischemic cardiomyopathy: s/p dual chamber pacemaker. Continue Cardizem CAD in [place] artery: Continue aspirin, statin Hypertension: continue tenormin Hypothyroidism: Continue levothyroxine Gout: continue home allopurinol HLD: continue home statin CKD: stable DVT Px:On heparin drip Disposition- Continue current level of care on heparin drip. Admission and Anticipated Discharge Date Admission Date: September 02, 2022 Subjective Patient was seen and examined at bedside. States she is feeling better. Denies chest pain. Still on 4 L NC. No fever, chills, nausea or vomiting. Denies any bleeding. She has tolerated Coumadin and Eliquis in the past without any bleeding issues. She denies she is a fall risk. Review of Systems Review of Systems: All systems reviewed & are unremarkable except as noted in Subjective Physical Exam Physical Exam: General: Sitting comfortably in chair, not in distress, on NC HEENT: EOMI, LORE, MMM Chest: Decreased breath sounds bilaterally, no wheezes or crackles CVS: Regular rate and rhythm, normal heart sounds, no murmur Abdomen: Soft, non tender, not distended, normal bowel sounds Neuro: Awake, alert, oriented, conversing well, non focal Extremities: No cyanosis, clubbing. trace chronic edema Results & Data Results & Data Vital Signs (Past 12 Hours) Vital Signs Temp Pulse Pulse Resp BP BP Pulse Ox 09/04/22 08:00 09/04/22 08:00 76 09/04/22 11:10 36.4 C L 96 H 20 103/68 93 09/04/22 07:30 36.7 C 84 18 123/81 98 09/04/22 03:00 36.7 C 78 17 125/72 92 O2 Del Method O2 Flow Rate 09/04/22 08:00 Nasal Cannula 4 09/04/22 08:00 09/04/22 11:10 Nasal Cannula 4 09/04/22 07:30 Room Air 09/04/22 03:00 Nasal Cannula 4 Laboratory Results Short CBC 09/04/22 Range/Units 05:14 WBC 7.60 (4.8-10.8) K/ul Hgb 12.5 (12.0-16.0) g/dl Hct 39.2 (37.0-47.0) % Plt Count 318 (130-400) K/uL BMP 09/04/22 05:14 Sodium 140 Potassium 3.8 Chloride 106 Carbon Dioxide 27 BUN 14 Creatinine 0.83 Glucose 89 Calcium 8.7 Medications Administered Current Inpatient Medications Acetaminophen (Acetaminophen 325 Mg Tab) 650 mg PO Q4H PRN PRN Reason: Pain or Fever Stop: 10/02/22 14:14 Al Hydrox/Mg Hydrox/Simethicone (Aluminum/Magnesium Susp 30 Ml Udc) 15 ml PO Q4H PRN PRN Reason: Dyspepsia Stop: 10/02/22 14:14 Allopurinol (Allopurinol 300 Mg Tab) 150 mg PO QAM [facility] Stop: 10/03/22 08:59 Last Admin: 09/04/22 08:49 Dose: 150 mg Allopurinol (Allopurinol 300 Mg Tab) 300 mg PO QPM [facility] Stop: 10/02/22 23:34 Last Admin: 09/03/22 20:15 Dose: 300 mg Aspirin (Aspirin 81 Mg Ectab) 81 mg PO HS [facility] Stop: 10/03/22 20:59 Last Admin: 09/03/22 20:15 Dose: 81 mg Atenolol (Atenolol 25 Mg Tablet) 12.5 mg PO DAILY [facility] Stop: 10/03/22 08:59 Last Admin: 09/04/22 08:48 Dose: 12.5 mg Dicyclomine HCl (Dicyclomine Hcl 20 Mg Tab) 20 mg PO TID PRN PRN Reason: IBS Stop: 10/02/22 23:32 Last Admin: 09/03/22 08:07 Dose: 20 mg Diltiazem HCl (Diltiazem Hcl 180 Mg Capcr) 360 mg PO QPM [facility] Stop: 10/02/22 23:44 Last Admin: 09/03/22 20:21 Dose: 360 mg Famotidine (Famotidine 20 Mg Tab) 20 mg PO DAILY [facility] Stop: 10/03/22 08:59 Last Admin: 09/04/22 08:49 Dose: 20 mg Fluticasone Propionate (Fluticasone Propionate Na Spr 16 Gm Btl) 2 sprays NA QAM [facility] Stop: 10/03/22 08:59 Last Admin: 09/04/22 08:50 Dose: Not Given Heparin Sodium/Dextrose (Heparin Sodium/Dextrose) 25,000 units in 500 mls @ 23 mls/hr IV .[id number] [facility]; Protocol Stop: 10/02/22 12:59 Last Titration: 09/04/22 07:28 Dose: 1,000 units/hr, 20 mls/hr Levothyroxine Sodium (Levothyroxine Sodium 137 Mcg Tablet) 137 mcg PO DAILYBB [facility] Stop: 10/03/22 06:29 Last Admin: 09/04/22 06:14 Dose: 137 mcg Loperamide HCl (Loperamide Hcl 2 Mg Cap) 2 mg PO QID PRN PRN Reason: Diarrhea Stop: 10/02/22 23:38 Nitroglycerin (Nitroglycerin Sl 0.4 Mg/Tab Tab) 0.4 mg SL Q5M PRN PRN Reason: chest pain Stop: 10/02/22 23:44 Ondansetron HCl (Ondansetron Inj 2 Mg/Ml 2 Ml Vial) 4 mg IV Q6H PRN PRN Reason: Nausea Stop: 10/02/22 14:14 Pantoprazole Sodium (Pantoprazole 40 Mg Tab) 40 mg PO BID [facility] Stop: 10/02/22 23:44 Last Admin: 09/04/22 08:48 Dose: 40 mg Polyethylene Glycol (Polyethylene (Miralax) 17 Gm Pack) 17 gm PO DAILY PRN PRN Reason: Constipation Stop: 10/02/22 14:14 Rosuvastatin Calcium (Rosuvastatin Calcium 5 Mg Tab) 5 mg PO DAILY [facility] Stop: 10/03/22 08:59 Last Admin: 09/04/22 08:48 Dose: 5 mg
[2022-09-04 15:26] LABS: Partial Thromboplastin Ratio 1.5
[2022-09-04 15:37] LABS: Partial Thromboplastin Time 43.3 Seconds (21.0-31.0)
[2022-09-04] MEDS: HEPARIN SODIUM/DEXTROSE 25,000 UNITS/500 ML BAG IV SCH (15:56)
[2022-09-04] MEDS: dilTIAZem HCL 180 MG CAPCR PO SCH (20:58)
[2022-09-04] MEDS: ASPIRIN 81 MG ECTAB PO SCH (20:58)
[2022-09-05 06:14] LABS: Basophils # (auto) 0.11 K/uL (0-0.2); Basophils % (auto) 1.3 %; Eosinophils # (auto) 0.23 K/uL (0-0.50); Eosinophils % (auto) 2.8 %; Hematocrit (blood only) 41.8 % (37.0-47.0); Hemoglobin 13.5 g/dl (12.0-16.0); Immature Granulocytes # (auto) 0.08 K/uL (0.01-0.20); Lymphocytes # (auto) 1.91 K/uL (1.2-3.4); Mean Corpuscular Hemoglobin 31.7 pg (25.0-34.0); Mean Corpuscular Hgb Conc 32.3 g/dL (32.0-36.0); Mean Corpuscular Volume 98.1 fL (80.0-100.0); Monocytes # (auto) 1.06 K/uL (0.11-0.59); Monocytes % (auto) 12.8 %; Neutrophils % (auto) 59.1 %; Platelet Count 328 K/uL (130-400); RDW Coefficient of Variation 14.4 % (11.5-14.5); RDW Standard Deviation 51.4 fL (36.4-46.3); Red Blood Count 4.26 M/uL (4.20-5.40); White Blood Count 8.29 K/ul (4.8-10.8)
[2022-09-05] MEDS: LEVOTHYROXINE SODIUM 137 MCG TABLET PO SCH (06:22)
[2022-09-05 06:30] LABS: BUN Creatinine Ratio 16.5 (10-20); Calcium 8.6 mg/dl (8.6-10.3); Creatinine Clr Calc Pharmacy 54.4 ml/min; Est GFR (African American) 76.6 ml/min; Est GFR (Non-African American) 66.1 ml/min; Potassium 3.9 mmol/L (3.5-5.1)
[2022-09-05 06:58] LABS: Partial Thromboplastin Ratio 1.6
[2022-09-05 07:13] LABS: Partial Thromboplastin Time 45.3 Seconds (21.0-31.0)
[2022-09-05] MEDS: FAMOTIDINE 20 MG TAB PO SCH (08:00)
[2022-09-05] MEDS: ATENOLOL 25 MG TABLET PO SCH (08:00)
[2022-09-05] MEDS: PANTOprazole 40 MG TAB PO SCH ×2 (08:00→19:53)
[2022-09-05] MEDS: FLUTICASONE PROPIONATE NA SPR 16 GM BTL SCH (08:01)
[2022-09-05] MEDS: ROSUVASTATIN CALCIUM 5 MG TAB PO SCH (08:01)
[2022-09-05] MEDS: allopurinoL 300 MG TAB PO SCH ×2 (08:01→19:53)
[2022-09-05] MEDS: ENOXAPARIN 80 MG/0.8 ML SYR SC SCH ×2 (09:56→19:52)
--- NOTE | 2022-09-05 16:08 | Hospitalist Progress Note ---
Date of Service September 05, 2022 Assessment & Plan (1) Pulmonary emboli: (2) Ischemic cardiomyopathy: (3) CAD in [place] artery: (4) Hiatal hernia: (5) Tachy-chintan syndrome: (6) Status post biventricular pacemaker: (7) Hypothyroidism: Plan 77yoF with a PMHx of hiatal hernia, mild asthma, CAD, history of tachybradycardia syndrome, ischemic cardiomyopathy, HTN, HLD, CKD stage III, hypothyroidism, GERD, history of DVT/PE recently discharged after a bout of acute diverticulitis presenting with SOB and extensive PEs with heart strain. CTA chest: Extensive bilateral pulmonary emboli which involve the distal main pulmonary arteries extending into the lobar, segmental and subsegmental branches of all lobes, with right heart strain. 2. No pleural effusion or pulmonary infarct Echo- EF 55-60%, RV mildly enlarged, Harry Sign is present, RV systolic fu nction is normal, no significant valvular disease. RV systolic pressure at 40-45 mmg Hg B/L LE US: There is an occlusive thrombus in the left mid femoral vein. No right-sided thrombus is seen. No superficial venous thrombosis is identified. Acute bilateral pulmonary emboli with right heart strain, DVT LLE H/o multiple VTE episodes and was on coumadin and eliquis in past. Also had IVC filter which was removed about 7-[address], US and echo as above; reviewed. Heparin switched over to Lovenox therapeutic dose every 12 hours. Monitor for need of supplemental oxygen; SPO2 goal greater than 90% PT OT eval May need follow-up with PCP and a referral to hematology given history of recurrent DVT/PE for assessment of hypercoagulable work up Will need Eliquis coupon due to high out of pocket expenses Acute hypoxic respiratory failure due to PE Pt hypoxic on arrival with spO2 at 84, requiring 3L of oxygen. Complete weaned off of oxygen. Continue to monitor GERD/Hiatal hernia: Continue pantoprazole, famotidine Tachy-chintan syndrome/Ischemic cardiomyopathy: s/p dual chamber pacemaker. Continue Cardizem CAD in [place] artery: Continue aspirin, statin Hypertension: continue tenormin Hypothyroidism: Continue levothyroxine Gout: continue home allopurinol HLD: continue home statin CKD: stable DVT Px:On heparin drip Disposition- Continue current level of care on Lovenox Admission and Anticipated Discharge Date Admission Date: September 02, 2022 Subjective Patient seen and examined at bedside. She is lying on the bed comfortably. Reports shortness of breath on minimal exertion. Off supplemental oxygen and saturating well in room air. Review of Systems Review of Systems: All systems reviewed & are unremarkable except as noted in Subjective Physical Exam Physical Exam: General: Sitting comfortably in chair, not in distress, on NC HEENT: EOMI, LORE, MMM Chest: Decreased breath sounds bilaterally, no wheezes or crackles CVS: Regular rate and rhythm, normal heart sounds, no murmur Abdomen: Soft, non tender, not distended, normal bowel sounds Neuro: Awake, alert, oriented, conversing well, non focal Extremities: No cyanosis, clubbing. trace chronic edema Results & Data Results & Data Vital Signs (Past 12 Hours) Vital Signs Temp Pulse Pulse Resp BP BP Pulse Ox 09/05/22 15:54 36.6 C 76 19 112/64 90 09/05/22 12:04 36.6 C 75 18 112/64 91 09/05/22 08:00 09/05/22 10:13 91 09/05/22 07:16 96 H 09/05/22 07:08 36.5 C 75 18 111/69 92 09/05/22 05:05 36.4 C L 83 18 133/80 92 O2 Del Method O2 Flow Rate 09/05/22 15:54 Room Air 09/05/22 12:04 Room Air 09/05/22 08:00 Nasal Cannula 1 09/05/22 10:13 Room Air 09/05/22 07:16 09/05/22 07:08 Nasal Cannula 2 09/05/22 05:05 Nasal Cannula 2 Laboratory Results Laboratory Results WBC 8.29 K/ul (4.8-10.8) 09/05/22 05:28 RBC 4.26 M/uL (4.20-5.40) 09/05/22 05:28 Hgb 13.5 g/dl (12.0-16.0) 09/05/22 05:28 Hct 41.8 % (37.0-47.0) 09/05/22 05:28 MCV 98.1 fL (80.0-100.0) 09/05/22 05:28 MCH 31.7 pg (25.0-34.0) 09/05/22 05:28 MCHC 32.3 g/dL (32.0-36.0) 09/05/22 05:28 RDW Std Deviation 51.4 fL (36.4-46.3) H 09/05/22 05:28 RDW Coeff of Agnes 14.4 % (11.5-14.5) 09/05/22 05:28 Plt Count 328 K/uL (130-400) 09/05/22 05:28 MPV 10.0 fL (9.4-12.4) 09/05/22 05:28 Immature Gran % (Auto) 1.0 % 09/05/22 05:28 Neut % (Auto) 59.1 % 09/05/22 05:28 Lymph % (Auto) 23.0 % 09/05/22 05:28 [place] % (Auto) 12.8 % 09/05/22 05:28 Eos % (Auto) 2.8 % 09/05/22 05:28 Baso % (Auto) 1.3 % 09/05/22 05:28 Neut # (Auto) 4.90 K/uL (1.40-6.50) 09/05/22 05:28 Lymph # (Auto) 1.91 K/uL (1.2-3.4) 09/05/22 05:28 [place] # (Auto) 1.06 K/uL (0.11-0.59) H 09/05/22 05:28 Eos # (Auto) 0.23 K/uL (0-0.50) 09/05/22 05:28 Baso # (Auto) 0.11 K/uL (0-0.2) 09/05/22 05:28 Immature Gran # (Auto) 0.08 K/uL (0.01-0.20) 09/05/22 05:28 PT 11.4 Seconds (9.0-12.0) 09/03/22 03:52 INR 1.0 (0.9-1.1) 09/03/22 03:52 APTT 45.3 Seconds (21.0-31.0) H* 09/05/22 05:29 PTT Ratio 1.6 09/05/22 05:29 Sodium 141 mmol/L (136-145) 09/05/22 05:28 Potassium 3.9 mmol/L (3.5-5.1) 09/05/22 05:28 Chloride 107 mmol/L (98-107) 09/05/22 05:28 Carbon Dioxide 26 mmol/L (21-32) 09/05/22 05:28 Anion Gap 8 (3-11) 09/05/22 05:28 BUN 14 mg/dl (6-23) 09/05/22 05:28 Creatinine 0.85 mg/dl (0.6-1.2) 09/05/22 05:28 Est Cr Clr Drug Dosing 54.4 ml/min 09/05/22 05:28 Est GFR ( Amer) 76.6 ml/min 09/05/22 05:28 Est GFR (Non-Af Amer) 66.1 ml/min 09/05/22 05:28 BUN/Creatinine Ratio 16.5 (10-20) 09/05/22 05:28 Glucose 97 mg/dl (70-99(Fasting)) 09/05/22 05:28 Calcium 8.6 mg/dl (8.6-10.3) 09/05/22 05:28 Total Bilirubin 0.4 mg/dl (0.2-1.0) 09/02/22 10:45 AST 6 U/L (13-39) L 09/02/22 12:13 ALT 9 U/L (7-52) 09/02/22 10:45 Alkaline Phosphatase 86 U/L (34-104) 09/02/22 10:45 Troponin I High Sens 28.3 pg/ml (0-14) H 09/02/22 22:33 Total Protein 7.1 gm/dl (6.0-8.3) 09/02/22 10:45 Albumin 3.7 gm/dl (3.4-5.0) 09/02/22 10:45 Globulin 3.4 gm/dl (2.5-4.0) 09/02/22 10:45 Albumin/Globulin Ratio 1.1 (0.9-2) 09/02/22 10:45 Urine Color Yellow 09/02/22 15:04 Urine Appearance Clear (Clear) 09/02/22 15:04 Urine pH 5.0 (4.5-7.5) 09/02/22 15:04 Ur Specific Naylor > 1.045 (1.000-1.030) H 09/02/22 15:04 Urine Protein Negative (Negative) 09/02/22 15:04 Urine Glucose (UA) Negative (Negative) 09/02/22 15:04 Urine Ketones Negative (Negative) 09/02/22 15:04 Urine Blood Negative (Negative) 09/02/22 15:04 Urine Nitrite Negative (Negative) 09/02/22 15:04 Urine Bilirubin Negative (Negative) 09/02/22 15:04 Urine Urobilinogen Negative (Negative) 09/02/22 15:04 Ur Leukocyte Esterase Negative (Negative) 09/02/22 15:04 Impressions Chest CTA 09/02/22 10:34 CT angio chest PE protocol CT DOSE: 733.15 mGy.cm HISTORY: 77 years-old Female with Dyspnea. Acute shortness of breath. Subacute healing fractures of the right lateral sixth and seventh ribs. TECHNIQUE: Multiple CTA images of the chest were obtained after the intravenous administration of 113 ml Optiray. Coronal and sagittal MIPS were obtained from the axial data set and were submitted for review. All measurements were obtained according to NASCET criteria. A dose lowering technique was utilized adhering to the principles of ALARA. COMPARISON: CT abdomen and pelvis 08/18/2022, CTA chest 11/13/2018 FINDINGS: CTA: Mild cardiomegaly with left subclavian dual-lead pacer. No pericardial effusion. Moderate coronary artery calcifications. Reflux of contrast is noted into the IVC and hepatic veins. No thoracic aortic aneurysm. Straightening of the intraventricular septum. Extensive bilateral pulmonary emboli which involve the distal main pulmonary arteries extending into the lobar, segmental and subsegmental branches of all lobes. CT CHEST: No thyroid nodule or lymphadenopathy. Small right Bochdalek hernia. No pneumothorax, pleural effusion, airspace consolidation or overt pulmonary edema. Mild mucous plugging with areas of mosaic attenuation. Subsegmental bibasilar atelectasis. There are a few scattered bilateral solid pulmonary nodules measuring up to 3 mm (please see the book vazquez) which are stable and likely benign. Central airways are patent. Partially imaged 5.5 cm cyst of the interpolar left kidney with marginal calcification. Ill-defined increased attenuation of the renal pyramids of the left kidney. Large hiatal hernia. Unremarkable soft tissues. No acute fracture. Healing subacute fractures of the anterolateral right sixth and seventh ribs. IMPRESSION: 1. Extensive pulmonary emboli with associated right heart strain. 2. No pleural effusion or pulmonary infarct. 3. Healing subacute nondisplaced fractures of the right sixth and seventh ribs. 4. No pneumothorax. 5. Large hiatal hernia. ACT 112: Negative or not required by law. The above report was generated using voice recognition software. It may contain grammatical, syntax or spelling errors. Electronically signed by: Erasmo Stover M.D. 09/02/2022 12:11 PM Chest X-Ray 09/02/22 10:34 XR chest 1V portable HISTORY: 77 years-old Female Dyspnea acute shortness of breath COMPARISON: 08/18/2022 TECHNIQUE: AP view of the chest FINDINGS: Cardiac silhouette is enlarged. Left subclavian pacer. Mild subsegmental bibasilar densities. No pneumothorax, or overt pulmonary edema. Probable small left pleural effusion. Degenerative changes of the shoulders and spine. IMPRESSION: 1. Cardiomegaly without pulmonary edema. 2. Mild bibasilar opacities suggestive of atelectasis. 3. Probable small left pleural effusion. ACT 112: Negative or not required by law. The above report was generated using voice recognition software. It may contain grammatical, syntax or spelling errors. Electronically signed by: Erasmo Stover M.D. 09/02/2022 11:21 AM Venous Doppler Study 09/03/22 07:49 US venous doppler LE BI CLINICAL HISTORY: eval for DVT TECHNIQUE: Bilateral lower extremity real-time compression venous ultrasound with Color Doppler imaging. Utilizing real-time ultrasonic imaging multiple real time high-resolution ultrasonic images with compression and noncompression maneuvers of the deep venous system in addition to color doppler imaging were performed from the common femoral vein through the proximal calf veins. COMPARISON: None available at the time of this dictation. FINDINGS/IMPRESSION: There is an occlusive thrombus in the left mid femoral vein. No right-sided thrombus is seen. No superficial venous thrombosis is identified. ACT 112: Negative or not required by law. Electronically signed by: Rafael Solitario M.D. 09/03/2022 11:57 AM
[2022-09-05] MEDS: dilTIAZem HCL 180 MG CAPCR PO SCH (19:53)
[2022-09-05] MEDS: ASPIRIN 81 MG ECTAB PO SCH (22:10)
[2022-09-06] MEDS: LEVOTHYROXINE SODIUM 137 MCG TABLET PO SCH (05:31)
[2022-09-06 06:26] LABS: Basophils # (auto) 0.14 K/uL (0-0.2); Eosinophils % (auto) 2.9 %; Hematocrit (blood only) 41.1 % (37.0-47.0); Hemoglobin 13.4 g/dl (12.0-16.0); Immature Granulocytes # (auto) 0.07 K/uL (0.01-0.20); Lymphocytes % (auto) 28.9 %; Mean Corpuscular Hemoglobin 32.1 pg (25.0-34.0); Mean Corpuscular Hgb Conc 32.6 g/dL (32.0-36.0); Mean Corpuscular Volume 98.3 fL (80.0-100.0); Mean Platelet Volume 10.2 fL (9.4-12.4); Monocytes # (auto) 0.96 K/uL (0.11-0.59); Monocytes % (auto) 13.9 %; Neutrophils # (auto) 3.56 K/uL (1.40-6.50); Neutrophils % (auto) 51.3 %; Platelet Count 304 K/uL (130-400); RDW Coefficient of Variation 14.4 % (11.5-14.5); RDW Standard Deviation 51.9 fL (36.4-46.3); Red Blood Count 4.18 M/uL (4.20-5.40); White Blood Count 6.93 K/ul (4.8-10.8)
[2022-09-06 08:20] LABS: Calcium 8.3 mg/dl (8.6-10.3); Potassium 4.1 mmol/L (3.5-5.1)
[2022-09-06 08:26] LABS: Creatinine Clr Calc Pharmacy 58.2 ml/min; Est GFR (African American) 83.7 ml/min; Est GFR (Non-African American) 72.2 ml/min
[2022-09-06] MEDS: FLUTICASONE PROPIONATE NA SPR 16 GM BTL SCH (09:08)
[2022-09-06] MEDS: ENOXAPARIN 80 MG/0.8 ML SYR SC SCH (09:08)
[2022-09-06] MEDS: ATENOLOL 25 MG TABLET PO SCH (09:09)
[2022-09-06] MEDS: PANTOprazole 40 MG TAB PO SCH (09:09)
[2022-09-06] MEDS: ROSUVASTATIN CALCIUM 5 MG TAB PO SCH (09:09)
[2022-09-06] MEDS: FAMOTIDINE 20 MG TAB PO SCH (09:09)
[2022-09-06] MEDS: allopurinoL 300 MG TAB PO SCH (09:09)
--- NOTE | 2022-09-06 14:54 | Discharge Summary ---
Date of Service September 06, 2022 Admission HPI Per Admitting Provider 77yoF with a PMHx of hiatal hernia, mild asthma, CAD, history of tachybradycardia syndrome, ischemic cardiomyopathy, HTN, HLD, CKD stage III, hypothyroidism, GERD, history of DVT/PE recently discharged after a bout of ac belkofski diverticulitis presenting with SOB and extensive PEs with heart strain. States that she had persistent SOB from the day of discharge 2-3 days ago. Thought it would go away on its own but it never did. She states that she has a Hx of recurrent DVT/PE but they usually occur after she has procedures. Does note that she did not have a procedure at her last admission.Had an IVC filter placed at one point but states she had it removed about 7-8 years ago. States she is comfortable breathing right now but denies any lower extremity swelling or pain. Was on DVT prophylaxis while hospitalized. Admission Exam Per Admitting Provider General: Alert, oriented. No acute distress, nasal cannula in nares Skin: No noted rashes or bruises Psych: Appropriate mood and affect Neuro: No gross deficits HEENT: NC/AT, CV: RRR, Normal s1, s2. No murmurs appreciated Resp: Breath sounds clear bilaterally, no increased effort of breathing. No crackles/rhonchi/rales. Abdomen: Soft, nontender, nondistended. Extremities: Trace edema in lower extremities bilaterally. Principal Diagnosis Acute bilateral pulmonary emboli with right heart strain, DVT LLE Acute hypoxic respiratory failure due to PE Discharge Exam General: Sitting comfortably in chair, not in distress, on NC HEENT: EOMI, LORE, MMM Chest: Decreased breath sounds bilaterally, no wheezes or crackles CVS: Regular rate and rhythm, normal heart sounds, no murmur Abdomen: Soft, non tender, not distended, normal bowel sounds Neuro: Awake, alert, oriented, conversing well, non focal Extremities: No cyanosis, clubbing. trace chronic edema Discharge Data Allergies Allergy/AdvReac Type Severity Reaction Status Date / Time imipenem Allergy Severe ANAPHYLAXIS Verified 09/02/22 15:13 Sulfa (Sulfonamide Allergy Severe hives,sob, Verified 09/02/22 15:13 Antibiotics) can take Dyazide daptomycin AdvReac Severe Anaphylaxis Unverified 09/02/22 15:13 colchicine AdvReac Intermediate diarrhea Verified 06/04/23 15:13 metoprolol AdvReac Mild fatigue Verified 09/02/22 15:13 zoledronic acid AdvReac Mild NAUSEA AND Verified 09/02/22 15:13 VOMITING Consultations 09/02/22 13:52 ED Decision to Admit Stat Ordered Studies 09/02/22 10:34 CT angio chest PE protocol Stat 09/03/22 07:49 US venous doppler LE BI Routine Hospital Course (1) Pulmonary emboli: (2) Ischemic cardiomyopathy: (3) CAD in [place] artery: (4) Hiatal hernia: (5) Tachy-chintan syndrome: (6) Status post biventricular pacemaker: (7) Hypothyroidism: Plan 77yoF with a PMHx of hiatal hernia, mild asthma, CAD, history of tachybradycardia syndrome, ischemic cardiomyopathy, HTN, HLD, CKD stage III, hypothyroidism, GERD, history of DVT/PE recently discharged after a bout of acute diverticulitis presented with SOB. She was found to have bilateral extensive PEs with heart strain. CTA chest: Extensive bilateral pulmonary emboli which involve the distal main pulmonary arteries extending into the lobar, segmental and subsegmental branches of all lobes, with right heart strain. 2. No pleural effusion or pulmonary infarct Echo- EF 55-60%, RV mildly enlarged, Harry Sign is present, RV systolic function is normal, no significant valvular disease. RV systolic pressure at 40- 45 mmg Hg B/L LE US: There is an occlusive thrombus in the left mid femoral vein. No right-sided thrombus is seen. No superficial venous thrombosis is identified. Acute bilateral pulmonary emboli with right heart strain, DVT LLE Acute hypoxic respiratory failure due to PE H/o multiple VTE episodes and was on coumadin and eliquis in past. Also had IVC filter which was removed about 7-[address], US and echo as above; reviewed. During the hospitalization patient was placed on heparin which was switched over to Lovenox. At discharge, patient was placed on Eliquis. Patient to follow-up with PCP and obtain hematology referral given history of multiple DVT/PE in the past. Patient to also follow-up with cardiology. Two-step oxygen evaluation was done; patient did not require any supplemental oxygen. All other medication were continued as before. Total Time Total Time Spent Total Time Spent (In Minutes): 45 Total Time Includes: Examination of the Patient, Discharge Planning, Medication Reconciliation, Communication With Other Providers and Other Discharge Plan Discharge Items Patient Disposition: Home - Self-Care Reason For Visit: SOB, PE Discharge Diagnosis: Acute bilateral pulmonary emboli with right heart strain, DVT LLE Activity: Resume your previous activity Non-emergency contact: Primary Care Provider Call non-emergency contact if: you have any medication questions Follow-up/Referrals: Rafa Bergman MD [Primary Care Provider] - (Date & Time 09/10/2022 1:00 PM Provider Rafa Bergman MD Department Family Medicine [facility] ) Diet: Regular Addtl Attending Provider Instructions: During your hospitalization, you are found to have blood clot in your left leg and in your lung vessels. You are prescribed Eliquis (blood thinner). Please follow the instruction below: 1) Starting tonight at 8 PM; take 2 tablets (10mg) twice daily for 7 days ( Till September 13, morning) 2) After 7 days, start taking 1 tablet twice a day Given your history of repeated clots; you will need hypercoagulable work-up with the outside industrial sales representative. Please discuss with your primary care doctor to refer you to outside industrial sales representative. Please follow-up with cardiology within the next 3 to 4 weeks. Pending Studies at Discharge: No Stand-Alone Forms: [facility], Smoking Cessation Medications and DC Order Prescriptions: New Eliquis 5 mg tablet 5 mg PO BID Qty: 60 0RF Continued fexofenadine [Elke Allergy] 180 mg Tablet 180 mg PO DAILY PRN (Reason: Allergy Symptoms) cholecalciferol (vitamin D3) [Vitamin D3] 2,000 unit Tablet 2,000 unit PO QAM Azo Bladder Control 300 mg Capsule 1 cap PO QAM nitroglycerin [Nitrostat] 0.4 mg tablet, sublingual 0.4 mg Sublingual Q5M Qty: 25 3RF Rx Instructions: 1 pill under tongue for chest pain. May repeat in 5 min. Call 911 if no relief. fluticasone propionate [Flonase Allergy Relief] 50 mcg/actuation Howard, Suspension 2 spray INTRANASAL QAM Rx Instructions: use following nasal saline aspirin 81 mg Tablet,Delayed Release (Dr/Ec) 81 mg PO HS Qty: 0 0RF dicyclomine 20 mg Tablet 20 mg PO TID PRN (Reason: IBS) levothyroxine 137 mcg tablet 137 mcg PO DAILYBB diltiazem HCl 360 mg tablet extended release 24 hr 360 mg PO QPM rosuvastatin 5 mg tablet 5 mg PO DAILY coenzyme Q10 [CoQ-10] 100 mg Capsule 100 mg PO DAILY allopurinol 300 mg tablet 150 mg PO QAM pantoprazole 40 mg Tablet,Delayed Release (Dr/Ec) 40 mg PO BID Qty: 60 0RF Rx Instructions: take 40 mg twice a day. allopurinol 300 mg Tablet 300 mg PO QPM loperamide 2 mg Tablet 2 mg PO QID PRN (Reason: Diarrhea) atenolol 25 mg tablet 12.5 mg PO DAILY famotidine 20 mg Tablet 20 mg PO DAILY cholecalciferol (vitamin D3) 25 mcg (1,000 unit) Tablet 25 mcg PO DAILY Discharge Orders: Discharge Order (Routine); Ordered 09/06/22 Ordered By: Mark Woodall Admission Data Admit Date/Time: 09/02/22 14:16 Attending Provider: Mark Woodall Admit Provider: Susie Braun Primary Care Provider: Rafa Bergman Other Providers: Susie Braun ; Greg Rizzo [facility] ; Arik Roth Other Interventions: Discharge Summary Assessment (RN) Last Done: 09/06/22 12:23
== END 2022-09-06 15:31 | disposition home health service (06) | DRG 175 ==
LOC: ED 09:50 → 4W 14:16 → SUATTDRO 14:16 → 4W 17:40

== ENCOUNTER 2022-09-25 10:32 | Inpatient (IN) ==
[2022-09-25] MEDS ORDERED: ONDANSETRON INJ 2 MG/ML 2 ML VIAL IV STA (10:46)
[2022-09-25] MEDS ORDERED: SODIUM CHLORIDE 0.9% 1000ML 1,000 ML IV SCH (11:00)
[2022-09-25 11:21] LABS: Basophils # (auto) 0.08 K/uL (0-0.2); Basophils % (auto) 0.5 %; Eosinophils # (auto) 0.31 K/uL (0-0.50); Eosinophils % (auto) 2.1 %; Hematocrit (blood only) 48.6 % (37.0-47.0); Hemoglobin 15.6 g/dl (12.0-16.0); Immature Granulocytes # (auto) 0.08 K/uL (0.01-0.20); Immature Granulocytes % (auto) 0.5 %; Lymphocytes # (auto) 1.64 K/uL (1.2-3.4); Lymphocytes % (auto) 10.9 %; Mean Corpuscular Hemoglobin 31.4 pg (25.0-34.0); Mean Corpuscular Hgb Conc 32.1 g/dL (32.0-36.0); Mean Corpuscular Volume 97.8 fL (80.0-100.0); Mean Platelet Volume 10.3 fL (9.4-12.4); Monocytes # (auto) 1.13 K/uL (0.11-0.59); Monocytes % (auto) 7.5 %; Neutrophils # (auto) 11.85 K/uL (1.40-6.50); Neutrophils % (auto) 78.5 %; Platelet Count 288 K/uL (130-400); RDW Standard Deviation 53.9 fL (36.4-46.3); Red Blood Count 4.97 M/uL (4.20-5.40); White Blood Count 15.09 K/ul (4.8-10.8)
[2022-09-25 11:38] LABS: Albumin Globulin Ratio 1.3 (0.9-2); BUN Creatinine Ratio 14.9 (10-20); Bilirubin,Total 0.3 mg/dl (0.2-1.0); Creatinine Clr Calc Pharmacy 51.1 ml/min; Est GFR (African American) 74.5 ml/min; Est GFR (Non-African American) 64.3 ml/min; Magnesium 1.8 mg/dl (1.7-2.4); Potassium 4.4 mmol/L (3.5-5.1)
[2022-09-25 11:44] LABS: Troponin I High Sensitivity 4.7 pg/ml (0-14)
[2022-09-25] MEDS ORDERED: SODIUM CHLORIDE 0.9% 1000ML 1,000 ML IV ONE (11:47)
[2022-09-25] MEDS ORDERED: SODIUM CHLORIDE 0.9% 500 ML IV ONE (11:47)
[2022-09-25 11:48] LABS: INR 0.9 (0.9-1.1); Prothrombin Time 10.4 Seconds (9.0-12.0)
--- NOTE | 2022-09-25 11:48 | Emergency Department Note ---
Impression & Plan Diverticulitis large intestine, Diarrhea, Elevated lactic acid level ED Provider Note Provider: Dakota Warner MD DATE OF SERVICE: 09/25/2022 CHIEF COMPLAINT: Left lower quad abdominal pain, diarrhea HISTORY OF PRESENT ILLNESS: Patient is a 77-year-old female history of CAD, GERD, diverticulitis, IBS, and PE on Eliquis presenting here today reporting several days of left lower quadrant pain. Treated with Augmentin by her primary doctor for the last 3 days but worsening pain. Having significant diarrhea as well as having some nausea. No vomiting. Nonbloody component of the diarrhea. Had an episode of diverticulitis with first time in July. Subsequently sent home and then developed PEs. Currently taking her Eliquis and denies shortness of breath symptoms or significant chest pain. States she has taken several tablets of Imodium to try to slow the diarrhea this morning. She called the primary care office and referred here for evaluation. No trauma reported. PAST MEDICAL HISTORY: As noted above MEDICATIONS: Reviewed home medications SOCIAL HISTORY: Non-smoker PHYSICAL EXAM: GENERAL: alert and oriented in no acute distress on stretcher Head: normocephalic and atraumatic EYES: No injection, discharge or icterus. NECK: Trachea midline. Supple. ENT: Mucous membranes pink and moist. LUNGS: Airway patent. No retractions. Breath sounds clear with good air entry bilaterally. HEART: Regular rate and rhythm. No chest wall tenderness ABDOMEN: Soft with some left lower quadrant left-sided abdominal tenderness. Some guarding. No masses SKIN: Acyanotic, warm, dry, without rashes EXTREMITIES: Without swelling, tenderness or deformity NEUROLOGICAL: No focal deficits. No aphasia. No facial droop or slurred speech. Ambulatory. EK bpm normal sinus rhythm. No PVC or PAC. No acute ST segment elevation or depression with a QTc of 449. Nonspecific anterior T wave changes noted. CONTINUOUS CARDIAC MONITORING: was ordered and showed a heart rate of 80s-100 bpm in normal sinus rhythm Patient's laboratory studies and imaging reviewed. Differential includes Appendicitis, infections, diverticulitis, UTI, obstruction, mesenteric ischemia, aortic pathology, inflammatory bowel disease, renal colic, PUD, pancreatitis, biliary pathology, hernia, volvulus, constipation, as well as other pathologies. IMPRESSION/MEDICAL DECISION MAKING: Patient with significant diarrhea overnight. Has been on Augmentin for presumed diverticulitis. Will obtain CT scan given her abdominal discomfort to confirm this and to exclude other significant pathology. Blood work here with leukocytosis. Lactate is elevated 3.4. IV fluids ordered 2.5L NS. No evidence of transaminitis and I doubt this represents pancreatitis or hepatitis. No signs significant renal dysfunction. Patient without significant EKG findings or troponin doubt this is cardiac in nature. Has been completing her course of Eliquis for recent PEs and denies any respiratory symptoms. C. difficile and stool studies ordered as this may have actually promoted C. difficile colitis as well. CT imaging with mild acute sigmoid diverticulitis without any free air or organized collection. Negative C. difficile testing. Will cover with Zosyn for broader IV antibiotic coverage and discussion with pharmacy given her allergy profile. Additional stool PCR is pending. Given her significant diarrheal symptoms however feel that she requires further care here at the hospital. DIAGNOSIS: Diverticulitis, diarrhea, elevated lactate DISPOSITION: Hospitalist will evaluate Patient was agreeable with this plan. Past Med/Surg History Medical History CAD (coronary artery disease) Dyslipidemia GERD (gastroesophageal reflux disease) History of DVT (deep vein thrombosis) History of non-ST elevation myocardial infarction (NSTEMI) History of pulmonary embolism Hypertension (Unknown) BP better today continue higher dose of metoprolol 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 Hypothyroidism Ischemic cardiomyopathy Non-ST elevated myocardial infarction (non-STEMI) Osteoporosis Retinal vein occlusion of right eye Rupture of left posterior tibialis tendon Vitamin B12 deficiency Surgical History History of cardiac cath S/P BSO (status post bilateral salpingo-oophorectomy) S/P IVC filter Status post biventricular pacemaker Status post hysterectomy Status post right knee replacement Family History Father Coronary heart disease Heart disease Mother Stroke Allergies Grandmother Asthma Grandfather Asthma Other Hypertension No family history of adverse response to anesthesia No family history of bleeding disorder Social History Smoking Status: Never smoker Second Hand Exposure: No; Do You Dip or Chew Tobacco: No; Hx Alcohol Use: No Hx Substance Use: No Preferred Language: Lithuanian Communication Ability: Effective Plastic Surgery Technician Required: No Beliefs That Will Affect Care: None marital status: Current Living Situation: Family Current Living Situation Comment: Lives with daughter current occupational status: employed How many Children do You have: 1 Feels Safe at Home: Yes Assistive Devices: None Allergies Allergies Allergy/AdvReac Type Severity Reaction Status Date / Time imipenem Allergy Severe ANAPHYLAXIS Verified 09/02/22 15:13 Sulfa (Sulfonamide Allergy Severe hives,sob, Verified 09/02/22 15:13 Antibiotics) can take Dyazide daptomycin AdvReac Severe Anaphylaxis Unverified 09/02/22 15:13 colchicine AdvReac Intermediate diarrhea Verified 09/02/22 15:13 metoprolol AdvReac Mild fatigue Verified 09/02/22 15:13 zoledronic acid AdvReac Mild NAUSEA AND Verified 09/02/22 15:13 VOMITING Home Meds Home Medications Medication Instructions Recorded Confirmed cholecalciferol (vitamin D3) 50 2,000 unit PO QAM 04/28/18 09/02/22 mcg (2,000 unit) tablet (Vitamin D3) fexofenadine 180 mg tablet 180 mg PO DAILY PRN Allergy 04/28/18 09/02/22 (Elke Allergy) Symptoms pumpkin seed extract-soy germ 300 1 cap PO QAM 04/28/18 09/02/22 mg capsule (Azo Bladder Control) fluticasone propionate 50 2 spray intranasal QAM 06/03/18 09/02/22 mcg/actuation nasal spray,suspension (Flonase Allergy Relief) dicyclomine 20 mg tablet 20 mg PO TID PRN IBS 02/12/19 09/02/22 allopurinol 300 mg tablet 150 mg PO QAM 01/23/21 09/02/22 coenzyme Q10 100 mg capsule 100 mg PO DAILY 01/23/21 09/02/22 (CoQ-10) diltiazem HCl 360 mg 360 mg PO QPM 01/23/21 09/02/22 tablet,extended release 24 hr levothyroxine 137 mcg tablet 137 mcg PO DAILYBB 01/23/21 09/02/22 rosuvastatin 5 mg tablet 5 mg PO DAILY 01/23/21 09/02/22 allopurinol 300 mg tablet 300 mg PO QPM 08/18/22 09/02/22 atenolol 25 mg tablet 12.5 mg PO DAILY 08/18/22 09/02/22 cholecalciferol (vitamin D3) 25 25 mcg PO DAILY 08/18/22 09/02/22 mcg (1,000 unit) tablet famotidine 20 mg tablet 20 mg PO DAILY 08/18/22 09/02/22 loperamide 2 mg tablet 2 mg PO QID PRN Diarrhea 08/18/22 09/02/22 Previous Rx's Medication Instructions Recorded nitroglycerin 0.4 mg sublingual 0.4 mg sublingual Q5M chest pain 05/01/18 tablet (Nitrostat) #25 tabs aspirin 81 mg tablet,delayed 81 mg PO HS #0 tabs 05/16/18 release pantoprazole 40 mg tablet,delayed 40 mg PO BID #60 tabs 01/24/21 release apixaban 5 mg tablet (Eliquis) 5 mg PO BID #60 tabs 09/06/22 Results & Data (ED) Vital Signs Vital Signs - 24 hr 09/25/22 10:33 09/25/22 11:59 09/25/22 11:32 Temperature 36.5 C Temperature Source Temporal Artery Scan Pulse Rate 111 H 82 Respiratory Rate 20 Respiratory Effort / Characteristics Non-Labored Spontaneous Respiratory Depth Normal Blood Pressure 133/77 Blood Pressure Mean 95 Pulse Oximetry 95 98 Oxygen Delivery Method Room Air Room Air Sepsis Recent Fever Within 48 Hours No Sepsis New/Unexplained Change in Mental Status No Sepsis Action Taken by Nursing No Action Required Laboratory Data 09/25/22 10:55 09/25/22 10:55 Lab Results 09/25/22 09/25/22 09/25/22 Range/Units 10:55 10:55 10:55 WBC 15.09 H (4.8-10.8) K/ul RBC 4.97 (4.20-5.40) M/uL Hgb 15.6 (12.0-16.0) g/dl Hct 48.6 H (37.0-47.0) % MCV 97.8 (80.0-100.0) fL MCH 31.4 (25.0-34.0) pg MCHC 32.1 (32.0-36.0) g/dL RDW Std Deviation 53.9 H (36.4-46.3) fL RDW Coeff of Agnes 15.0 H (11.5-14.5) % Plt Count 288 (130-400) K/uL MPV 10.3 (9.4-12.4) fL Immature Gran % (Auto) 0.5 % Neut % (Auto) 78.5 % Lymph % (Auto) 10.9 % Saline % (Auto) 7.5 % Eos % (Auto) 2.1 % Baso % (Auto) 0.5 % Neut # (Auto) 11.85 H (1.40-6.50) K/uL Lymph # (Auto) 1.64 (1.2-3.4) K/uL Saline # (Auto) 1.13 H (0.11-0.59) K/uL Eos # (Auto) 0.31 (0-0.50) K/uL Baso # (Auto) 0.08 (0-0.2) K/uL Immature Gran # (Auto) 0.08 (0.01-0.20) K/uL PT 10.4 (9.0-12.0) Seconds INR 0.9 (0.9-1.1) Sodium 142 (136-145) mmol/L Potassium 4.4 (3.5-5.1) mmol/L Chloride 110 H (98-107) mmol/L Carbon Dioxide 26 (21-32) mmol/L Anion Gap 6 (3-11) BUN 13 (6-23) mg/dl Creatinine 0.87 (0.6-1.2) mg/dl Est Cr Clr Drug Dosing 51.1 ml/min Est GFR ( Amer) 74.5 ml/min Est GFR (Non-Af Amer) 64.3 ml/min BUN/Creatinine Ratio 14.9 (10-20) Glucose 110 H (70-99(Fasting)) mg/dl Lactate (0.4-2.0) mmol/L Calcium 9.0 (8.6-10.3) mg/dl Magnesium 1.8 (1.7-2.4) mg/dl Total Bilirubin 0.3 (0.2-1.0) mg/dl AST 7 L (13-39) U/L ALT 11 (7-52) U/L Alkaline Phosphatase 90 (34-104) U/L Troponin I High Sens 4.7 (0-14) pg/ml Total Protein 7.0 (6.0-8.3) gm/dl Albumin 4.0 (3.4-5.0) gm/dl Globulin 3.0 (2.5-4.0) gm/dl Albumin/Globulin Ratio 1.3 (0.9-2) Lipase 12 (11-82) U/L TSH (0.300-4.500) uIu/ml Stl C. diff Tox B Gene (Neg) SARS-CoV-2, RNA, NAAT (NEGATIVE) 09/25/22 09/25/22 09/25/22 Range/Units 10:55 11:25 11:31 WBC (4.8-10.8) K/ul RBC (4.20-5.40) M/uL Hgb (12.0-16.0) g/dl Hct (37.0-47.0) % MCV (80.0-100.0) fL MCH (25.0-34.0) pg MCHC (32.0-36.0) g/dL RDW Std Deviation (36.4-46.3) fL RDW Coeff of Agnes (11.5-14.5) % Plt Count (130-400) K/uL MPV (9.4-12.4) fL Immature Gran % (Auto) % Neut % (Auto) % Lymph % (Auto) % Saline % (Auto) % Eos % (Auto) % Baso % (Auto) % Neut # (Auto) (1.40-6.50) K/uL Lymph # (Auto) (1.2-3.4) K/uL Saline # (Auto) (0.11-0.59) K/uL Eos # (Auto) (0-0.50) K/uL Baso # (Auto) (0-0.2) K/uL Immature Gran # (Auto) (0.01-0.20) K/uL PT (9.0-12.0) Seconds INR (0.9-1.1) Sodium (136-145) mmol/L Potassium (3.5-5.1) mmol/L Chloride (98-107) mmol/L Carbon Dioxide (21-32) mmol/L Anion Gap (3-11) BUN (6-23) mg/dl Creatinine (0.6-1.2) mg/dl Est Cr Clr Drug Dosing ml/min Est GFR ( Amer) ml/min Est GFR (Non-Af Amer) ml/min BUN/Creatinine Ratio (10-20) Glucose (70-99(Fasting)) mg/dl Lactate 3.4 H* (0.4-2.0) mmol/L Calcium (8.6-10.3) mg/dl Magnesium (1.7-2.4) mg/dl Total Bilirubin (0.2-1.0) mg/dl AST (13-39) U/L ALT (7-52) U/L Alkaline Phosphatase (34-104) U/L Troponin I High Sens (0-14) pg/ml Total Protein (6.0-8.3) gm/dl Albumin (3.4-5.0) gm/dl Globulin (2.5-4.0) gm/dl Albumin/Globulin Ratio (0.9-2) Lipase (11-82) U/L TSH 3.072 (0.300-4.500) uIu/ml Stl C. diff Tox B Gene (Neg) SARS-CoV-2, RNA, NAAT NEGATIVE (NEGATIVE) 09/25/22 Range/Units 11:37 WBC (4.8-10.8) K/ul RBC (4.20-5.40) M/uL Hgb (12.0-16.0) g/dl Hct (37.0-47.0) % MCV (80.0-100.0) fL MCH (25.0-34.0) pg MCHC (32.0-36.0) g/dL RDW Std Deviation (36.4-46.3) fL RDW Coeff of Agnes (11.5-14.5) % Plt Count (130-400) K/uL MPV (9.4-12.4) fL Immature Gran % (Auto) % Neut % (Auto) % Lymph % (Auto) % Saline % (Auto) % Eos % (Auto) % Baso % (Auto) % Neut # (Auto) (1.40-6.50) K/uL Lymph # (Auto) (1.2-3.4) K/uL Saline # (Auto) (0.11-0.59) K/uL Eos # (Auto) (0-0.50) K/uL Baso # (Auto) (0-0.2) K/uL Immature Gran # (Auto) (0.01-0.20) K/uL PT (9.0-12.0) Seconds INR (0.9-1.1) Sodium (136-145) mmol/L Potassium (3.5-5.1) mmol/L Chloride (98-107) mmol/L Carbon Dioxide (21-32) mmol/L Anion Gap (3-11) BUN (6-23) mg/dl Creatinine (0.6-1.2) mg/dl Est Cr Clr Drug Dosing ml/min Est GFR ( Amer) ml/min Est GFR (Non-Af Amer) ml/min BUN/Creatinine Ratio (10-20) Glucose (70-99(Fasting)) mg/dl Lactate (0.4-2.0) mmol/L Calcium (8.6-10.3) mg/dl Magnesium (1.7-2.4) mg/dl Total Bilirubin (0.2-1.0) mg/dl AST (13-39) U/L ALT (7-52) U/L Alkaline Phosphatase (34-104) U/L Troponin I High Sens (0-14) pg/ml Total Protein (6.0-8.3) gm/dl Albumin (3.4-5.0) gm/dl Globulin (2.5-4.0) gm/dl Albumin/Globulin Ratio (0.9-2) Lipase (11-82) U/L TSH (0.300-4.500) uIu/ml Stl C. diff Tox B Gene Negative Cdiff Gene (Neg) SARS-CoV-2, RNA, NAAT (NEGATIVE) Administered Medications Discontinued Medications Sodium Chloride (Nss 1000ml) 1,000 mls @ 999 mls/hr IV .Q1H1M NANY Stop: 09/25/22 12:00 Last Infusion: 09/25/22 13:29 Dose: 0 mls/hr Documented By: Admin: 09/25/22 11:04 Dose: 999 mls/hr Documented By: KT Sodium Chloride (Nss 1000ml) 1,000 mls @ 999 mls/hr IV .Q1H1M ONE Stop: 09/25/22 12:47 Last Infusion: 06/27/23 13:29 Dose: 0 mls/hr Documented By: Admin: 09/25/22 12:21 Dose: 999 mls/hr Documented By: JULIO Ioversol (Optiray 320 100ml) 94 ml IV ONCE ONE Stop: 09/25/22 12:37 Last Admin: 09/25/22 12:37 Dose: 94 ml Documented By: MERCEDES Ondansetron HCl (Ondansetron Inj 2 Mg/Ml 2 Ml Vial) 4 mg IV NOW STA Stop: 09/25/22 10:47 Last Admin: 09/25/22 11:04 Dose: 4 mg Documented By: JULIO Imaging Data Radiologist's Impression: Abdomen/Pelvis CT 09/25/22 10:54 CT SCAN OF THE ABDOMEN AND PELVIS WITH IV CONTRAST CLINICAL HISTORY: Left lower quadrant abdominal pain. COMPARISON STUDY: Abdominal CT dated 08/18/2022. TECHNIQUE: Following the IV administration of 94 cc of Optiray 320, CT scan of the abdomen and pelvis is performed from the lung bases to the proximal femora. Images are reviewed in the axial, sagittal, and coronal planes. IV contrast was administered without complication. A dose lowering technique was utilized adhering to the principles of ALARA. CT DOSE: 1152.01 mGy.cm FINDINGS: Lung bases: The heart is enlarged and without pericardial effusion. Pacemaker leads are in place. The coronary arteries are densely calcified. The lung bases are clear noting bibasilar scarring/atelectasis. There is a large hiatal hernia. Liver: The contrast-enhanced liver is normal in size, contour, and attenuation. There is no intrahepatic biliary ductal dilatation. The hepatic veins and portal veins are patent. Gallbladder: Unremarkable. Spleen: Normal in size and attenuation. Pancreas: Atrophic and grossly unremarkable. Adrenal glands: Unremarkable. Kidneys: The contrast enhanced kidneys are normal in size and without hydronephrosis. The kidneys enhance symmetrically. There is a retroaortic left renal vein. There are large bilateral renal cysts. The largest cyst on the left measures 8.5 cm and contains thin peripheral calcifications. The largest cyst on the right measures 8.7 cm. There are at least 2 tiny nonobstructing right renal calculi which measure up to 2 mm. No left renal calculi are clearly seen on this contrast-enhanced examination. No ureteral stone is seen. Renal sinus cysts are present on the left. Abdominal vasculature: The abdominal aorta is normal in course and caliber noting mild atherosclerotic calcification. Bowel: There is advanced colonic diverticulosis. There is mild wall thickening with surrounding inflammation involving the proximal sigmoid colon seen on image #75 consistent with acute diverticulitis. No fluid collection is seen to indicate abscess. There is no bowel obstruction. There are large duodenal dive rticula. The appendix is well-visualized and normal. Peritoneum: There is no intraperitoneal free air or abdominal ascites. There is a fat-containing umbilical hernia. Lymphadenopathy: None. Pelvic viscera: The bladder is normal as visualized. The uterus is surgically absent. No adnexal lesion is seen. There are bilateral fat-containing groin hernias. Skeletal structures: The skeletal structures are osteopenic. There is mild to moderate lumbosacral spondylosis. No lytic or blastic lesions are seen. There are subacute appearing right-sided rib fractures. Soft tissues: A resolving contusion/hematoma is again suggested in the right gluteal soft tissues. IMPRESSION: 1. Advanced colonic diverticulosis with evidence of mild acute sigmoid diverticulitis. 2. No intraperitoneal 1free air is identified and there is no organized fluid collection to suggest abscess. 3. Right-sided nephrolithiasis. 4. Cardiomegaly and cardiac pacemaker. 5. Large hiatal hernia. 6. Additional findings as above.. ACT 112: Negative or not required by law. Electronically signed by: Justin Irene M.D. 09/25/2022 1:06 PM Discharge Plan Visit Data Chief Complaint: Illness Stated Complaint: DIVERTICULITIS ED Provider: Dakota Warner Discharge Problem: Diverticulitis large intestine, Diarrhea, Elevated lactic acid level Patient Disposition: Being Evaluated by Hospitalist Forms Stand Alone Forms: My [facility] [employer] Prescriptions Prescriptions: No Action fexofenadine [Elke Allergy] 180 mg Tablet 180 mg PO DAILY PRN (Reason: Allergy Symptoms) cholecalciferol (vitamin D3) [Vitamin D3] 2,000 unit Tablet 2,000 unit PO QAM Azo Bladder Control 300 mg Capsule 1 cap PO QAM nitroglycerin [Nitrostat] 0.4 mg tablet, sublingual 0.4 mg Sublingual Q5M Qty: 25 3RF Rx Instructions: 1 pill under tongue for chest pain. May repeat in 5 min. Call 911 if no relief. fluticasone propionate [Flonase Allergy Relief] 50 mcg/actuation [place],Suspension 2 spray INTRANASAL QAM Rx Instructions: use following nasal saline aspirin 81 mg Tablet,Delayed Release (Dr/Ec) 81 mg PO HS Qty: 0 0RF dicyclomine 20 mg Tablet 20 mg PO TID PRN (Reason: IBS) levothyroxine 137 mcg tablet 137 mcg PO DAILYBB diltiazem HCl 360 mg tablet extended release 24 hr 360 mg PO QPM rosuvastatin 5 mg tablet 5 mg PO DAILY coenzyme Q10 [CoQ-10] 100 mg Capsule 100 mg PO DAILY allopurinol 300 mg tablet 150 mg PO QAM pantoprazole 40 mg Tablet,Delayed Release (Dr/Ec) 40 mg PO BID Qty: 60 0RF Rx Instructions: take 40 mg twice a day. Eliquis 5 mg tablet 5 mg PO BID Qty: 60 0RF allopurinol 300 mg Tablet 300 mg PO QPM loperamide 2 mg Tablet 2 mg PO QID PRN (Reason: Diarrhea) atenolol 25 mg tablet 12.5 mg PO DAILY famotidine 20 mg Tablet 20 mg PO DAILY cholecalciferol (vitamin D3) 25 mcg (1,000 unit) Tablet 25 mcg PO DAILY Referrals Referrals: Rafa Bergman MD [Primary Care Provider] - Diverticulitis large intestine Qualifiers: Diverticulitis bleeding: without bleeding Diverticulitis complication: without perforation or abscess Qualified Code(s): K57.32 - Diverticulitis of large intestine without perforation or abscess without bleeding Diarrhea Qualifiers: Diarrhea type: unspecified type Qualified Code(s): R19.7 - Diarrhea, unspecified
[2022-09-25] MEDS ORDERED: OPTIRAY 320 100ml IV ONE (12:36)
--- NOTE | 2022-09-25 13:08 | CT Scan Report ---
CT SCAN OF THE ABDOMEN AND PELVIS WITH IV CONTRAST CLINICAL HISTORY: Left lower quadrant abdominal pain. COMPARISON STUDY: Abdominal CT dated 08/18/2022. TECHNIQUE: Following the IV administration of 94 cc of Optiray 320, CT scan of the abdomen and pelvi s is performed from the lung bases to the proximal femora. Images are reviewed in the axial, sagittal , and coronal planes. IV contrast was administered without complication. A dose lowering technique wa s utilized adhering to the principles of ALARA. CT DOSE: 1152.01 mGy.cm FINDINGS: Lung bases: The heart is enlarged and without pericardial effusion. Pacemaker leads are in place. The coronary arteries are densely calcified. The lung bases are clear noting bibasilar scarring/atelecta sis. There is a large hiatal hernia. Liver: The contrast-enhanced liver is normal in size, contour, and attenuation. There is no intrahepa tic biliary ductal dilatation. The hepatic veins and portal veins are patent. Gallbladder: Unremarkable. Spleen: Normal in size and attenuation. Pancreas: Atrophic and grossly unremarkable. Adrenal glands: Unremarkable. Kidneys: The contrast enhanced kidneys are normal in size and without hydronephrosis. The kidneys enh ance symmetrically. There is a retroaortic left renal vein. There are large bilateral renal cysts. Th e largest cyst on the left measures 8.5 cm and contains thin peripheral calcifications. The largest c yst on the right measures 8.7 cm. There are at least 2 tiny nonobstructing right renal calculi which measure up to 2 mm. No left renal calculi are clearly seen on this contrast-enhanced examination. No ureteral stone is seen. Renal sinus cysts are present on the left. Abdominal vasculature: The abdominal aorta is normal in course and caliber noting mild atheroscleroti c calcification. Bowel: There is advanced colonic diverticulosis. There is mild wall thickening with surrounding infla mmation involving the proximal sigmoid colon seen on image #75 consistent with acute diverticulitis. No fluid collection is seen to indicate abscess. There is no bowel obstruction. There are large duode nal diverticula. The appendix is well-visualized and normal. Peritoneum: There is no intraperitoneal free air or abdominal ascites. There is a fat-containing umbi lical hernia. Lymphadenopathy: None. Pelvic viscera: The bladder is normal as visualized. The uterus is surgically absent. No adnexal lesi on is seen. There are bilateral fat-containing groin hernias. Skeletal structures: The skeletal structures are osteopenic. There is mild to moderate lumbosacral sp ondylosis. No lytic or blastic lesions are seen. There are subacute appearing right-sided rib fractur es. Soft tissues: A resolving contusion/hematoma is again suggested in the right gluteal soft tissues. IMPRESSION: 1. Advanced colonic diverticulosis with evidence of mild acute sigmoid diverticulitis. 2. No intraperitoneal 1free air is identified and there is no organized fluid collection to suggest a bscess. 3. Right-sided nephrolithiasis. 4. Cardiomegaly and cardiac pacemaker. 5. Large hiatal hernia. 6. Additional findings as above.. ACT 112: Negative or not required by law. Electronically signed by: Justin Irene M.D. 09/25/2022 1:06 PM
[2022-09-25] MEDS ORDERED: PIPERACILLIN/TAZOBACTAM 4.5 GM/120 ML BAG IV ONE (13:26)
--- NOTE | 2022-09-25 13:38 | History & Physical Report ---
Date of Service September 25, 2022 Assessment & Plan (1) Diverticulitis large intestine: (2) Diarrhea: (3) Sepsis: (4) Pulmonary emboli: (5) Tachy-chintan syndrome: (6) CAD (coronary artery disease): (7) Hypertension: (8) History of DVT (deep vein thrombosis): (9) Hypogammaglobulinaemia, unspecified: Plan This is a 77yo F with a PMH of recent diverticulitis and gastroenteritis 2/2 astrovirus infection, recent PE with associated heart strain, hiatal hernia, mild asthma, CAD, history of tachybradycardia syndrome, ischemic cardiomyopathy, HTN, HLD, CKD stage III, hypothyroidism, GERD, history of DVT/PE who presents with diarrhea and nausea x 3 days and has evidence of sigmoid diverticulitis on imaging. Sepsis Diverticulitis of large intestine Meeting SIRs criteria with HR 111, WBC 15k, Lactate 3.4 and known source Received 2.5 L NSS in ED and clinically appears resuscitated Continue IV Zosyn, consulted ID for further recommendations given multiple admissions C diff negative Stool cultures positive for astrovirus (present on 08/18 admission as well) Continue maintenance fluids, antiemetics Consider surgery consult if no improvement Currently scheduled for OP colonoscopy in September Recent bilateral pulmonary emboli Started on eliquis earlier this month Echo with preserved EF 55-60% H/o VTE in the past so likely needs lifelong anticoagulation GERD/Hiatal hernia Continue pantoprazole, famotidine Tachy-chintan syndrome/Ischemic cardiomyopathy s/p dual chamber pacemaker. Continue diltiazem CAD in [place] artery Continue aspirin, statin Hypertension continue atenolol Hypothyroidism continue levothyroxine Gout continue home allopurinol HLD continue home statin DVT Ppx: Eliquis Code status: FULL PCP: Pacheco Dispo:admitted to med/surg Patient seen in collaboration with Dr. Mcdaniel. Please see addendum. I spent a total of 75 minutes coordinating, documenting, and providing care for this patient excluding time spent in the performance of separately billed services. History of Present Illness Chief Complaint: diarrhea, nausea Primary Care Provider: Rafa Bergman MD This is a 77yo F with a PMH of recent diverticulitis and gastroenteritis 2/2 astrovirus infection, recent PE with associated heart strain, hiatal hernia, mild asthma, CAD, history of tachybradycardia syndrome, ischemic cardiomyopathy, HTN, HLD, CKD stage III, hypothyroidism, GERD, history of DVT/PE who presents with diarrhea and nausea x 3 days. Patient with multiple hospitalizations within the past 6 weeks: admitted 08/18-08/31 for mild diverticulitis in proximal sigmoid colon with small focus of microperforation. Was transitioned from IV Zosyn to Cipro on discharge and scheduled for OP colonoscopy in September. Returned a few days later and was admitted from 09/02-09/06 with acute hypoxia and heart strain 2/2 extensive PE and was discharged on Eliquis. Nausea and diarrhea resolved at time of discharge home but continued to feel generally weak and fatigued and "not back to normal". Three days ago, patient started to have episodes of watery diarrhea again, which if continued approximately 8 times a day since. Also experiencing nausea and gagging despite being very careful about what she is eating. PCP ordered her Augmentin on 09/22 due to recurrent symptoms. Denies any other new medications besides Eliquis. Endorses chills, generalized weakness, and general discomfort in left lower quadrant. Denies any fever, chest pain, shortness of breath, vomiting, dysuria or constipation. Allergies Allergy/AdvReac Type Severity Reaction Status Date / Time imipenem Allergy Severe ANAPHYLAXIS Verified 09/02/22 15:13 Sulfa (Sulfonamide Allergy Severe hives,sob, Verified 09/02/22 15:13 Antibiotics) can take Dyazide daptomycin AdvReac Severe Anaphylaxis Unverified 09/02/22 15:13 colchicine AdvReac Intermediate diarrhea Verified 09/02/22 15:13 metoprolol AdvReac Mild fatigue Verified 09/02/22 15:13 zoledronic acid AdvReac Mild NAUSEA AND Verified 09/02/22 15:13 VOMITING Home Medications Medication Instructions Recorded Confirmed Type cholecalciferol (vitamin D3) 50 2,000 unit PO QAM 04/28/18 09/25/22 History mcg (2,000 unit) tablet (Vitamin D3) fexofenadine 180 mg tablet 180 mg PO DAILY PRN Allergy 04/28/18 09/25/22 History (Elke Allergy) Symptoms pumpkin seed extract-soy germ 300 1 cap PO QAM 04/28/18 09/25/22 History mg capsule (Azo Bladder Control) nitroglycerin 0.4 mg sublingual 0.4 mg sublingual Q5M chest pain 05/01/18 09/25/22 Rx tablet (Nitrostat) #25 tabs aspirin 81 mg tablet,delayed 81 mg PO HS #0 tabs 05/16/18 09/25/22 Rx release fluticasone propionate 50 2 spray intranasal QAM 06/03/18 09/25/22 History mcg/actuation nasal spray,suspension (Flonase Allergy Relief) dicyclomine 20 mg tablet 20 mg PO TID PRN IBS 02/12/19 09/25/22 History allopurinol 300 mg tablet 300 mg PO QAM 01/23/21 09/25/22 History coenzyme Q10 100 mg capsule 100 mg PO DAILY 01/23/21 09/25/22 History (CoQ-10) diltiazem HCl 360 mg 360 mg PO QPM 01/23/21 09/25/22 History tablet,extended release 24 hr levothyroxine 137 mcg tablet 137 mcg PO DAILYBB 01/23/21 09/25/22 History rosuvastatin 5 mg tablet 5 mg PO DAILY 01/23/21 09/25/22 History pantoprazole 40 mg tablet,delayed 40 mg PO BID #60 tabs 01/24/21 09/25/22 Rx release allopurinol 300 mg tablet 150 mg PO QPM 08/18/22 09/25/22 History atenolol 25 mg tablet 12.5 mg PO DAILY 08/18/22 09/25/22 History cholecalciferol (vitamin D3) 25 25 mcg PO DAILY 08/18/22 09/25/22 History mcg (1,000 unit) tablet famotidine 20 mg tablet 20 mg PO BID 08/18/22 09/25/22 History loperamide 2 mg tablet 2 mg PO QID PRN Diarrhea 08/18/22 09/25/22 History apixaban 5 mg tablet (Eliquis) 5 mg PO BID #60 tabs 09/06/22 09/25/22 Rx amoxicillin 875 mg-potassium 1 tab PO BID 09/25/22 09/25/22 History clavulanate 125 mg tablet Past Med/Surg History Medical History CAD (coronary artery disease) Dyslipidemia GERD (gastroesophageal reflux disease) History of DVT (deep vein thrombosis) History of non-ST elevation myocardial infarction (NSTEMI) History of pulmonary embolism Hypertension (Unknown) BP better today continue higher dose of metoprolol 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 Hypothyroidism Ischemic cardiomyopathy Non-ST elevated myocardial infarction (non-STEMI) Osteoporosis Retinal vein occlusion of right eye Rupture of left posterior tibialis tendon Vitamin B12 deficiency Surgical History History of cardiac cath S/P BSO (status post bilateral salpingo-oophorectomy) S/P IVC filter Status post biventricular pacemaker Status post hysterectomy Status post right knee replacement Family History Father Coronary heart disease Heart disease Mother Stroke Allergies Grandmother Asthma Grandfather Asthma Other Hypertension No family history of adverse response to anesthesia No family history of bleeding disorder Social History Smoking Status: Never smoker Second Hand Exposure: No; Do You Dip or Chew Tobacco: No; Hx Alcohol Use: No Hx Substance Use: No Preferred Language: Albanian Communication Ability: Effective Academic Adviser Required: No Beliefs That Will Affect Care: None marital status: Current Living Situation: Family Current Living Situation Comment: Lives with daughter current occupational status: employed How many Children do You have: 1 Feels Safe at Home: Yes Assistive Devices: None Review of Systems Review of Systems: At least ten systems reviewed and negative except as noted in the HPI. Physical Exam Physical Exam: General Appearance: WD/WN, vitals as above, NAD, sitting up in bed, pleasant, anxious Head: normocephalic, atraumatic Eyes: normal inspection, PERRL, conjunctivae normal, anicteric sclerae ENT: external ear and nose normal, oropharynx normal Neck: normal visual inspection, trachea midline, no thyromegaly Respiratory: normal respiratory effort, lungs clear to auscultation, no wheeze, rales, rhonchi. No accessory muscle use Cardiovascular: regular rate, rhythm, no murmur, normal peripheral pulses, no BLE edema. Vessels: no JVD Chest: normal inspection of chest Abdomen/GI: hyperactive bowel sounds, soft, TTP LLQ but no guarding, no hepatosplenomegaly Extremities/Musculoskeletal: no cyanosis or clubbing, extremities motor strength 5/5 Neurologic: PERRL, EOMI, accommodation nl, no face palsy, no dysarthria, CN's II-XI intact bilaterally and moves all extremities Psychiatric: A+Ox3, euthymic affect Skin: no rashes, normal color, warm/dry Results & Data Results & Data Vital Signs (Past 12 Hours) Vital Signs Temp Pulse Resp BP Pulse Ox O2 Del Method 09/25/22 11:32 98 Room Air 09/25/22 11:59 82 09/25/22 10:33 36.5 C 111 H 20 133/77 95 Room Air Laboratory Results Short CBC 09/25/22 Range/Units 10:55 WBC 15.09 H (4.8-10.8) K/ul Hgb 15.6 (12.0-16.0) g/dl Hct 48.6 H (37.0-47.0) % Plt Count 288 (130-400) K/uL BMP 09/25/22 10:55 Sodium 142 Potassium 4.4 Chloride 110 H Carbon Dioxide 26 BUN 13 Creatinine 0.87 Glucose 110 H Calcium 9.0 Liver Function 09/25/22 Range/Units 10:55 Total Bilirubin 0.3 (0.2-1.0) mg/dl AST 7 L (13-39) U/L ALT 11 (7-52) U/L Alkaline Phosphatase 90 (34-104) U/L Albumin 4.0 (3.4-5.0) gm/dl Diagnostic Findings Abdomen/Pelvis CT 09/25/22 10:54 CT SCAN OF THE ABDOMEN AND PELVIS WITH IV CONTRAST CLINICAL HISTORY: Left lower quadrant abdominal pain. COMPARISON STUDY: Abdominal CT dated 08/18/2022. TECHNIQUE: Following the IV administration of 94 cc of Optiray 320, CT scan of the abdomen and pelvis is performed from the lung bases to the proximal femora. Images are reviewed in the axial, sagittal, and coronal planes. IV contrast was administered without complication. A dose lowering technique was utilized adhering to the principles of ALARA. CT DOSE: 1152.01 mGy.cm FINDINGS: Lung bases: The heart is enlarged and without pericardial effusion. Pacemaker leads are in place. The coronary arteries are densely calcified. The lung bases are clear noting bibasilar scarring/atelectasis. There is a large hiatal hernia. Liver: The contrast-enhanced liver is normal in size, contour, and attenuation. There is no intrahepatic biliary ductal dilatation. The hepatic veins and portal veins are patent. Gallbladder: Unremarkable. Spleen: Normal in size and attenuation. Pancreas: Atrophic and grossly unremarkable. Adrenal glands: Unremarkable. Kidneys: The contrast enhanced kidneys are normal in size and without hydronephrosis. The kidneys enhance symmetrically. There is a retroaortic left renal vein. There are large bilateral renal cysts. The largest cyst on the left measures 8.5 cm and contains thin peripheral calcifications. The largest cyst on the right measures 8.7 cm. There are at least 2 tiny nonobstructing right renal calculi which measure up to 2 mm. No left renal calculi are clearly seen on this contrast-enhanced examination. No ureteral stone is seen. Renal sinus cysts are present on the left. Abdominal vasculature: The abdominal aorta is normal in course and caliber noting mild atherosclerotic calcification. Bowel: There is advanced colonic diverticulosis. There is mild wall thickening with surrounding inflammation involving the proximal sigmoid colon seen on image #75 consistent with acute diverticulitis. No fluid collection is seen to indicate abscess. There is no bowel obstruction. There are large duodenal diverticula. The appendix is well-visualized and normal. Peritoneum: There is no intraperitoneal free air or abdominal ascites. There is a fat-containing umbilical hernia. Lymphadenopathy: None. Pelvic viscera: The bladder is normal as visualized. The uterus is surgically absent. No adnexal lesion is seen. There are bilateral fat-containing groin hernias. Skeletal structures: The skeletal structures are osteopenic. There is mild to moderate lumbosacral spondylosis. No lytic or blastic lesions are seen. There are subacute appearing right-sided rib fractures. Soft tissues: A resolving contusion/hematoma is again suggested in the right gluteal soft tissues. IMPRESSION: 1. Advanced colonic diverticulosis with evidence of mild acute sigmoid diverticulitis. 2. No intraperitoneal 1free air is identified and there is no organized fluid collection to suggest abscess. 3. Right-sided nephrolithiasis. 4. Cardiomegaly and cardiac pacemaker. 5. Large hiatal hernia. 6. Additional findings as above.. ACT 112: Negative or not required by law. Electronically signed by: Justin Irene M.D. 09/25/2022 1:06 PM ECG Additional Comments: EKG reviewed: NSR, TWI in anterior leads improved from previous Code Status & VTE Plan VTE Prophylaxis Plan VTE Prophylaxis will be ordered: Yes Supervising Physician Co-Signing Physician Notes I have seen and examined the patient and have discussed the case with the provider above. I agree with the assessment and plan as stated with the following exceptions. 77 yo F presents with ongoing gastroenteritis that is worsened. She states that on Saturday, she began having LLQ pain and diarrhea became worse. She presents today with sepsis and was resuscitated in the ER. She still reports malaise and fatigue and states that she never fully recovered since the first presentation of this infection on 08/18. She did complete 14 days total of antibiotics at that time. She doesnt mention anything triggering the infection but does report that she allows her puppy to lick her mouth. Others clean up after the dog in the home, however, and are not ill. 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 She has public water. Physical exam reveals a soft, ND abdomen with TTP in the LLQ. Cardiopulmonary exam is unremarkable. Labwork reveals WBC 15K, unremarkable chem panel and lactate of 3.4, then improved to 1.2 after IVF resuscitation. Immunodeficiency considered. Low risk for HIV but this was ordered to be complete. IgG deficiency noted, and secondary hypogammaglobulinemia considered with causes that may include malignancy or premalignant disorders such as CLL, lymphoma, multiple myeloma, MGUS, Waldenstroms. SPEP/UPEP and peripheral smear ordered. Protein losing enteropathies may also be contributing as a result of malabsorption. Consider referral to immunology pending clinical course. DO Jonas (1) Diverticulitis large intestine Diverticulitis bleeding: without bleeding Diverticulitis complication: without perforation or abscess Qualified Code(s): K57.32 - Diverticulitis of large intestine without perforation or abscess without bleeding (2) Diarrhea Diarrhea type: unspecified type Qualified Code(s): R19.7 - Diarrhea, unspecified (7) Hypertension Hypertension type: unspecified Qualified Code(s): I10 - Essential (primary) hypertension
[2022-09-25 13:41] LABS: Adenovirus F 40/41 PCR Not Detected (NotDetected); Campylobacter PCR Not Detected (NotDetected); Cryptosporidium PCR Not Detected (NotDetected); Cyclospora cayetanensis PCR Not Detected (NotDetected); Entamoeba histolytica PCR Not Detected (NotDetected); Enteroaggregative E.coli(EAEC) Not Detected (NotDetected); Enteropathogenic E.coli (EPEC) Not Detected (NotDetected); Enterotoxigenic E.coli (ETEC) Not Detected (NotDetected); Giardia lamblia PCR Not Detected (NotDetected); Norovirus GI/GII PCR Not Detected (NotDetected); Plesiomonas shigelloides PCR Not Detected (NotDetected); Rotavirus A PCR Not Detected (NotDetected); Salmonella PCR Not Detected (NotDetected); Sapovirus PCR Not Detected (NotDetected); Shiga-like Toxin E.coli (STEC) Not Detected (NotDetected); Shigella/Enteroinvasive E.coli Not Detected (NotDetected); Vibrio cholerae PCR Not Detected (NotDetected); Vibrio species PCR Not Detected (NotDetected); Yersinia enterocolitica PCR Not Detected (NotDetected)
[2022-09-25 13:56] LABS: Astrovirus PCR DETECTED (NotDetected)
--- NOTE | 2022-09-25 14:24 | Electrocardiogram Report ---
Test Reason : Blood Pressure : / mmHG Vent. Rate : 084 BPM Atrial Rate : 084 BPM P-R Int : 174 ms QRS Dur : 076 ms QT Int : 380 ms P-R-T Axes : 021 -01 -03 degrees QTc Int : 449 ms Normal sinus rhythm T-wave inversion in Anteroseptal leads Abnormal ECG When compared with ECG of 02-SEP-2022 10:12, AK interval has decreased T-wave inversion in multiple leads improved Confirmed by David Marin ([id number]) on 09/25/2022 2:24:11 PM Referred By: Confirmed By:David Marin
[2022-09-25] MEDS ORDERED: ACETAMINOPHEN 325 MG TAB PO PRN (15:18)
[2022-09-25] MEDS ORDERED: LACTATED RINGER'S 1,000 ML IV SCH (15:18)
[2022-09-25] MEDS ORDERED: ONDANSETRON INJ 2 MG/ML 2 ML VIAL IV PRN (15:18)
[2022-09-25] MEDS ORDERED: POLYETHYLENE (MIRALAX) 17 GM PACK PO PRN (15:18)
[2022-09-25] MEDS ORDERED: LOPERAMIDE HCL 2 MG CAP PO PRN (16:22)
[2022-09-25] MEDS ORDERED: DICYCLOMINE HCL 20 MG TAB PO PRN (16:24)
[2022-09-25] MEDS ORDERED: FEXOFENADINE HCL 180 MG TAB PO PRN (16:24)
[2022-09-25] MEDS ORDERED: NITROGLYCERIN SL 0.4 MG/TAB TAB SL PRN (16:30)
[2022-09-25 16:39] LABS: Immunoglobulin A 138.1 mg/dl (70-400); Immunoglobulin G 600.6 mg/dl (635-1741); Immunoglobulin M 88.2 mg/dl (45-281)
[2022-09-25] MEDS: SACCHAROMYCES BOULARDII 250 MG CAP PO SCH (18:10)
[2022-09-25] MEDS: PIPERACILLIN/TAZOBACTAM 4.5 GM in DEXTROSE 5% 100 ML IV SCH (18:11)
[2022-09-25 20:10] LABS: Appearance Urine Clear (Clear); Bacteria Urine Automated Negative (Negative); Bilirubin Urine Negative (Negative); Blood Urine Negative (Negative); Color Urine Yellow; Epithelial Cell Urine Auto >30 /lpf (0-5); Glucose Urine UA Negative (Negative); Ketones Urine Trace (Negative); Leukocyte Esterase Urine Negative (Negative); Nitrite Urine Negative (Negative); Protein Urine Trace (Negative); RBC Urine Automated 0-4 /hpf (0-4); Specific Gravity Urine > 1.045 (1.000-1.030); Urobilinogen Urine Negative (Negative)
[2022-09-25] MEDS: dilTIAZem HCL 180 MG CAPCR PO SCH (20:24)
[2022-09-25] MEDS: FAMOTIDINE 20 MG TAB PO SCH (20:24)
[2022-09-25] MEDS: PANTOprazole 40 MG TAB PO SCH (20:24)
[2022-09-25] MEDS: APIXABAN 5 MG TABLET PO SCH (20:24)
[2022-09-25] MEDS: ASPIRIN 81 MG ECTAB PO SCH (20:24)
[2022-09-25] MEDS: allopurinoL 300 MG TAB PO SCH (20:25)
[2022-09-26] MEDS: PIPERACILLIN/TAZOBACTAM 4.5 GM in DEXTROSE 5% 100 ML IV SCH ×2 (02:44→11:16)
[2022-09-26] MEDS: LEVOTHYROXINE SODIUM 137 MCG TABLET PO SCH (06:27)
[2022-09-26 06:29] LABS: Hematocrit (blood only) 38.3 % (37.0-47.0); Hemoglobin 12.3 g/dl (12.0-16.0); Mean Corpuscular Hemoglobin 31.6 pg (25.0-34.0); Mean Corpuscular Hgb Conc 32.1 g/dL (32.0-36.0); Mean Corpuscular Volume 98.5 fL (80.0-100.0); Mean Platelet Volume 9.6 fL (9.4-12.4); Platelet Count 223 K/uL (130-400); RDW Coefficient of Variation 15.1 % (11.5-14.5); RDW Standard Deviation 54.5 fL (36.4-46.3); Red Blood Count 3.89 M/uL (4.20-5.40); White Blood Count 8.81 K/ul (4.8-10.8)
[2022-09-26 06:47] LABS: BUN Creatinine Ratio 11.3 (10-20); Calcium 7.1 mg/dl (8.6-10.3); Creatinine Clr Calc Pharmacy 55.6 ml/min; Est GFR (African American) 82.4 ml/min; Est GFR (Non-African American) 71.1 ml/min
[2022-09-26] MEDS: ATENOLOL 25 MG TABLET PO SCH (08:40)
[2022-09-26] MEDS: FAMOTIDINE 20 MG TAB PO SCH ×2 (08:41→20:39)
[2022-09-26] MEDS: allopurinoL 300 MG TAB PO SCH ×2 (08:41→20:37)
[2022-09-26] MEDS: SACCHAROMYCES BOULARDII 250 MG CAP PO SCH (08:41)
[2022-09-26] MEDS: CHOLECALCIFEROL 1,000 UNITS 25 MCG TAB PO SCH (08:41)
[2022-09-26] MEDS: APIXABAN 5 MG TABLET PO SCH ×2 (08:41→20:38)
[2022-09-26] MEDS: ROSUVASTATIN CALCIUM 5 MG TAB PO SCH (08:41)
[2022-09-26] MEDS: PANTOprazole 40 MG TAB PO SCH ×2 (08:41→20:37)
[2022-09-26] MEDS: FLUTICASONE PROPIONATE NA SPR 16 GM BTL NAE SCH (08:44)
[2022-09-26] MEDS ORDERED: NON-FORMULARY MEDICATION (Coenzyme Q10 [Coq-10] 100 mg Capsule) PO SCH (09:00)
[2022-09-26] MEDS ORDERED: NON-FORMULARY MEDICATION (Cholecalciferol (Vitamin D3) [Vitamin D3] 2,000 unit Tablet) PO SCH (09:00)
[2022-09-26] MEDS ORDERED: NON-FORMULARY MEDICATION (Pumpkin Seed Extract-Soy Germ [Azo Bladder Control] 300 mg Capsu PO SCH (09:00)
--- NOTE | 2022-09-26 15:32 | Hospitalist Progress Note ---
Date of Service September 26, 2022 Assessment & Plan (1) Diverticulitis large intestine: (2) Diarrhea: (3) Sepsis: (4) Pulmonary emboli: (5) Tachy-chintan syndrome: (6) CAD (coronary artery disease): (7) Hypertension: (8) History of DVT (deep vein thrombosis): (9) Hypogammaglobulinaemia, unspecified: (10) Gout flare: Plan This is a 77yo F with a PMH of recent diverticulitis and gastroenteritis 2/2 astrovirus infection, recent PE with associated heart strain, hiatal hernia, mi ld asthma, CAD, history of tachybradycardia syndrome, ischemic cardiomyopathy, HTN, HLD, CKD stage III, hypothyroidism, GERD, history of DVT/PE who presents with diarrhea and nausea x 3 days and has evidence of sigmoid diverticulitis on imaging. CT A/P 1. Advanced colonic diverticulosis with evidence of mild acute sigmoid diverticulitis. 2. No intraperitoneal 1free air is identified and there is no organized fluid collection to suggest abscess. 3. Right-sided nephrolithiasis. 4. Cardiomegaly and cardiac pacemaker. 5. Large hiatal hernia. Sepsis on admission- resolved. Blood clx negative. UA unremarkable. Mild acute sigmoid diverticulitis without complication - improving on zosyn. Seen by ID- recommendations noted- will switch zosyn to cipro/flagyl to be completed on 10/01/22 alsong with probiotic - OP colonoscopy in 6 weeks. Recommended to reschedule her colonoscopy Astrovirus- conservative management Recent bilateral pulmonary emboli- continue eliquis. No respiratory issues currently. Lifelong anticoag recommended given h/o VTE in the past GERD/Hiatal hernia- Continue pantoprazole, famotidine Tachy-chintan syndrome/Ischemic cardiomyopathy- s/p dual chamber pacemaker. Continue diltiazem CAD in [place] artery- Continue aspirin, statin Hypertension- continue atenolol, cardizm Hypothyroidism- continue levothyroxine Gout flare- start on prednisone. Intolerant to colchicine. No NSAIDs given full anticoag. continue home allopurinol. Uric acid at goal. DVT Ppx: Eliquis Dispo: Anticipate discharge in 1-2 days pending symptomatic improvement Admission and Anticipated Discharge Date Admission Date: September 25, 2022 Subjective Patient was seen and examined at bedside. She feels better since admission. Her lower abd pain has resolved. No N/V. Tolerated clear liquid diet without issues and advanced diet. States she has gout flare in her right great toe/bunion- she gets it every month requiring 5 days of prednisone- she is unable to take colchicine because of bad diarrhea and no NSAIDs being on full anticoagulation. Review of Systems Review of Systems: All systems reviewed & are unremarkable except as noted in Subjective Physical Exam Physical Exam: General: Sitting comfortably in chair, not in distress, on room air HEENT: EOMI, MAXIMUS, MMM Chest: Clear breath sounds bilaterally, no wheezes or crackles CVS: Regular rate and rhythm, normal heart sounds, no murmur Abdomen: Soft, non tender, not distended, normal bowel sounds Neuro: Awake, alert, oriented, conversing well, non focal Extremities: No cyanosis, clubbing or edema MSK: Right great toe with gout flare Results & Data Results & Data Vital Signs (Past 12 Hours) Vital Signs Temp Pulse Resp BP Pulse Ox O2 Del Method 09/26/22 15:08 36.8 C 87 18 125/73 92 Room Air 09/26/22 07:50 36.6 C 87 20 119/79 92 Room Air Laboratory Results Short CBC 09/26/22 Range/Units 06:16 WBC 8.81 (4.8-10.8) K/ul Hgb 12.3 D (12.0-16.0) g/dl Hct 38.3 (37.0-47.0) % Plt Count 223 (130-400) K/uL BMP 09/26/22 06:16 Sodium 141 Potassium 4.0 Chloride 114 H Carbon Dioxide 22 BUN 9 Creatinine 0.80 Glucose 87 Calcium 7.1 L Urine 09/25/22 Range/Units 19:50 Urine Color Yellow Urine Appearance Clear (Clear) Urine pH 5.0 (4.5-7.5) Ur Specific [place] > 1.045 H (1.000-1.030) Urine Protein Trace H (Negative) Urine Glucose (UA) Negative (Negative) Medications Administered Current Inpatient Medications Acetaminophen (Acetaminophen 325 Mg Tab) 650 mg PO Q4H PRN PRN Reason: Pain or Fever Stop: 10/25/22 15:17 Allopurinol (Allopurinol 300 Mg Tab) 300 mg PO QAM [facility] Stop: 10/26/22 08:59 Last Admin: 09/26/22 08:41 Dose: 300 mg Allopurinol (Allopurinol 300 Mg Tab) 150 mg PO QPM NANY Stop: 10/25/22 20:59 Last Admin: 09/25/22 20:25 Dose: 150 mg Apixaban (Apixaban 5 Mg Tablet) 5 mg PO BID NANY Stop: 10/25/22 20:59 Last Admin: 09/26/22 08:41 Dose: 5 mg Aspirin (Aspirin 81 Mg Ectab) 81 mg PO HS NANY Stop: 10/25/22 20:59 Last Admin: 09/25/22 20:24 Dose: 81 mg Atenolol (Atenolol 25 Mg Tablet) 12.5 mg PO DAILY NANY Stop: 10/26/22 08:59 Last Admin: 09/26/22 08:40 Dose: 12.5 mg Dicyclomine HCl (Dicyclomine Hcl 20 Mg Tab) 20 mg PO TID PRN PRN Reason: IBS Stop: 10/25/22 16:23 Diltiazem HCl (Diltiazem Hcl 180 Mg Capcr) 360 mg PO QPM NANY Stop: 10/25/22 20:59 Last Admin: 09/25/22 20:24 Dose: 360 mg Famotidine (Famotidine 20 Mg Tab) 20 mg PO BID NANY Stop: 10/25/22 20:59 Last Admin: 09/26/22 08:41 Dose: 20 mg Fexofenadine HCl (Fexofenadine Hcl 180 Mg Tab) 180 mg PO DAILY PRN PRN Reason: Allergy Symptoms Stop: 10/25/22 16:23 Fluticasone Propionate (Fluticasone Propionate Na Spr 16 Gm Btl) 2 sprays [place] QAM [facility] Stop: 10/26/22 08:59 Last Admin: 09/26/22 08:44 Dose: Not Given Piperacillin Sod/Tazobactam (Sod 4.5 gm/ Dextrose) 120 mls @ 30 mls/hr IV Q8H [facility]; Protocol Stop: 10/05/22 17:59 Last Infusion: 09/26/22 15:41 Dose: Infused Levothyroxine Sodium (Levothyroxine Sodium 137 Mcg Tablet) 137 mcg PO DAILYBB [facility] Stop: 10/26/22 06:29 Last Admin: 09/26/22 06:27 Dose: 137 mcg Loperamide HCl (Loperamide Hcl 2 Mg Cap) 2 mg PO TID PRN PRN Reason: loose stool Stop: 10/25/22 16:21 Last Admin: 09/25/22 17:02 Dose: 2 mg Nitroglycerin (Nitroglycerin Sl 0.4 Mg/Tab Tab) 0.4 mg SL Q5M PRN PRN Reason: Chest Pain Stop: 10/25/22 16:29 Ondansetron HCl (Ondansetron Inj 2 Mg/Ml 2 Ml Vial) 4 mg IV Q6H PRN PRN Reason: Nausea Stop: 10/25/22 15:17 Pantoprazole Sodium (Pantoprazole 40 Mg Tab) 40 mg PO BID NANY Stop: 10/25/22 20:59 Last Admin: 09/26/22 08:41 Dose: 40 mg Polyethylene Glycol (Polyethylene (Miralax) 17 Gm Pack) 17 gm PO DAILY PRN PRN Reason: Constipation Stop: 10/25/22 15:17 Prednisone (Prednisone 20 Mg Tab) 40 mg PO DAILY NANY Stop: 10/30/22 16:14 Last Admin: 09/26/22 16:53 Dose: 40 mg Rosuvastatin Calcium (Rosuvastatin Calcium 5 Mg Tab) 5 mg PO DAILY NANY Stop: 10/26/22 08:59 Last Admin: 09/26/22 08:41 Dose: 5 mg Saccharomyces Boulardii (Saccharomyces Boulardii 250 Mg Cap) 250 mg PO DAILY NANY Stop: 10/25/22 16:29 Last Admin: 09/26/22 08:41 Dose: 250 mg Vitamin D (Cholecalciferol 1,000 Units 25 Mcg Tab) 1,000 units PO DAILY NANY Stop: 10/26/22 08:59 Last Admin: 09/26/22 08:41 Dose: 1,000 units (1) Diverticulitis large intestine Diverticulitis bleeding: without bleeding Diverticulitis complication: w ithout perforation or abscess Qualified Code(s): K57.32 - Diverticulitis of large intestine without perforation or abscess without bleeding (2) Diarrhea Diarrhea type: unspecified type Qualified Code(s): R19.7 - Diarrhea, u nspecified (7) Hypertension Hypertension type: unspecified Qualified Code(s): I10 - Essential (primary) hypertension
[2022-09-26 16:37] LABS: Uric Acid 2.4 mg/dl (2.6-7.2)
[2022-09-26] MEDS: predniSONE 20 MG TAB PO SCH (16:53)
[2022-09-26] MEDS: metroNIDAZOLE 500 MG TAB PO SCH (20:38)
[2022-09-26] MEDS: ASPIRIN 81 MG ECTAB PO SCH (20:39)
[2022-09-26] MEDS: dilTIAZem HCL 180 MG CAPCR PO SCH (20:39)
[2022-09-26] MEDS: CIPROFLOXACIN 500 MG TAB PO SCH (20:39)
[2022-09-27] MEDS: LEVOTHYROXINE SODIUM 137 MCG TABLET PO SCH (05:39)
[2022-09-27 07:15] LABS: Hematocrit (blood only) 40.2 % (37.0-47.0); Hemoglobin 13.2 g/dl (12.0-16.0); Mean Corpuscular Hemoglobin 31.6 pg (25.0-34.0); Mean Corpuscular Hgb Conc 32.8 g/dL (32.0-36.0); Mean Corpuscular Volume 96.2 fL (80.0-100.0); Mean Platelet Volume 10.1 fL (9.4-12.4); Platelet Count 262 K/uL (130-400); RDW Coefficient of Variation 14.6 % (11.5-14.5); RDW Standard Deviation 50.9 fL (36.4-46.3); Red Blood Count 4.18 M/uL (4.20-5.40); White Blood Count 7.67 K/ul (4.8-10.8)
[2022-09-27 07:24] LABS: BUN Creatinine Ratio 17.7 (10-20); Calcium 7.8 mg/dl (8.6-10.3); Creatinine Clr Calc Pharmacy 56.3 ml/min; Est GFR (African American) 83.7 ml/min; Est GFR (Non-African American) 72.2 ml/min; Magnesium 1.5 mg/dl (1.7-2.4); Phosphorus 2.5 mg/dl (2.5-4.9); Potassium 4.4 mmol/L (3.5-5.1)
[2022-09-27] MEDS: APIXABAN 5 MG TABLET PO SCH ×2 (09:08→20:54)
[2022-09-27] MEDS: PANTOprazole 40 MG TAB PO SCH ×2 (09:08→20:53)
[2022-09-27] MEDS: metroNIDAZOLE 500 MG TAB PO SCH ×3 (09:08→20:53)
[2022-09-27] MEDS: CIPROFLOXACIN 500 MG TAB PO SCH ×2 (09:09→20:56)
[2022-09-27] MEDS: predniSONE 20 MG TAB PO SCH (09:09)
[2022-09-27] MEDS: CHOLECALCIFEROL 1,000 UNITS 25 MCG TAB PO SCH (09:10)
[2022-09-27] MEDS: FAMOTIDINE 20 MG TAB PO SCH ×2 (09:11→20:56)
[2022-09-27] MEDS: ATENOLOL 25 MG TABLET PO SCH (09:12)
[2022-09-27] MEDS: ROSUVASTATIN CALCIUM 5 MG TAB PO SCH (09:13)
[2022-09-27] MEDS: SACCHAROMYCES BOULARDII 250 MG CAP PO SCH (09:14)
[2022-09-27] MEDS: allopurinoL 300 MG TAB PO SCH ×2 (09:15→20:55)
[2022-09-27] MEDS: FLUTICASONE PROPIONATE NA SPR 16 GM BTL NAE SCH (09:16)
[2022-09-27] MEDS: MAGNESIUM SULFATE / D5W 1 GM/100 ML BAG IV SCH ×2 (09:29→12:51)
[2022-09-27] MEDS: MAGNESIUM CHLORIDE W/CALCIUM 64MG DELAYED REL TAB PO SCH (11:53)
[2022-09-27 16:32] LABS: Albumin 2.7 g/dL (3.8-4.8); Alpha 1 Globulin 0.3 g/dL (0.2-0.3); Alpha 2 Globulin 0.8 g/dL (0.5-0.9); Beta-1-Globulin 0.3 g/dL (0.4-0.6); Beta-2-Globulin 0.3 g/dL (0.2-0.5); Gamma Globulin 0.5 g/dL (0.8-1.7); Monoclonal Protein Band 1 DNR g/dL (NONE DETECTED); Monoclonal Protein Band 2 DNR g/dL (NONE DETECTED); Monoclonal Protein Band 3 DNR g/dL (NONE DETECTED); Total Protein 4.9 g/dL (6.1-8.1)
--- NOTE | 2022-09-27 16:45 | Hospitalist Progress Note ---
Date of Service September 27, 2022 Assessment & Plan (1) Diverticulitis large intestine: (2) Diarrhea: (3) Sepsis: (4) Pulmonary emboli: (5) Tachy-chintan syndrome: (6) CAD (coronary artery disease): (7) Hypertension: (8) History of DVT (deep vein thrombosis): (9) Hypogammaglobulinaemia, unspecified: (10) Gout flare: Plan This is a 77yo F with a PMH of recent diverticulitis and gastroenteritis 2/2 astrovirus infection, recent PE with associated heart strain, hiatal hernia, mi ld asthma, CAD, history of tachybradycardia syndrome, ischemic cardiomyopathy, HTN, HLD, CKD stage III, hypothyroidism, GERD, history of DVT/PE who presents with diarrhea and nausea x 3 days and has evidence of sigmoid diverticulitis on imaging. CT A/P 1. Advanced colonic diverticulosis with evidence of mild acute sigmoid diverticulitis. 2. No intraperitoneal 1free air is identified and there is no organized fluid collection to suggest abscess. 3. Right-sided nephrolithiasis. 4. Cardiomegaly and cardiac pacemaker. 5. Large hiatal hernia. Sepsis on admission- resolved. Blood clx negative. UA unremarkable. Mild acute sigmoid diverticulitis without complication - improving on zosyn. Seen by ID- recommendations noted- will switch zosyn to cipro/flagyl to be completed on 10/01/22 along with probiotic - OP colonoscopy in 6 weeks. Recommended to reschedule her colonoscopy Astrovirus- conservative management Recent bilateral pulmonary emboli- continue eliquis. No respiratory issues currently. Lifelong anticoag recommended given h/o VTE in the past GERD/Hiatal hernia- Continue pantoprazole, famotidine Tachy-chintan syndrome/Ischemic cardiomyopathy- s/p dual chamber pacemaker. Continue diltiazem CAD in [place] artery- Continue aspirin, statin Hypertension- continue atenolol, cardizem Hypothyroidism- continue levothyroxine Gout flare- start on prednisone. Intolerant to colchicine. No NSAIDs given full anticoag. continue home allopurinol. Uric acid at goal. Hypomagnesemia-repleted, recheck in a.m. DVT Ppx: Eliquis Dispo: Anticipate discharge tomorrow if continues to improve. Admission and Anticipated Discharge Date Admission Date: September 25, 2022 Subjective Patient was seen and examined at bedside. She is feeling better. Pain has subsided. Diarrhea has slowed down. Gout pain is slightly improved. Tolerating full liquid diet well and would like to try regular diet. She is hoping she can go home tomorrow. Review of Systems Review of Systems: All systems reviewed & are unremarkable except as noted in Subjective Physical Exam Physical Exam: General: Sitting comfortably in chair, not in distress, on room air HEENT: EOMI, MAXIMUS, MMM Chest: Clear breath sounds bilaterally, no wheezes or crackles CVS: Regular rate and rhythm, normal heart sounds, no murmur Abdomen: Soft, non tender, not distended, normal bowel sounds Neuro: Awake, alert, oriented, conversing well, non focal Extremities: No cyanosis, clubbing or edema MSK: Right great toe with gout flare-slightly improved Results & Data Results & Data Vital Signs (Past 12 Hours) Vital Signs Temp Pulse Resp BP Pulse Ox O2 Del Method 09/27/22 15:49 36.6 C 68 16 122/75 98 Room Air 09/27/22 07:40 36.9 C 95 H 16 109/72 95 Room Air Laboratory Results Short CBC 09/27/22 Range/Units 06:52 WBC 7.67 (4.8-10.8) K/ul Hgb 13.2 (12.0-16.0) g/dl Hct 40.2 (37.0-47.0) % Plt Count 262 (130-400) K/uL BMP 09/27/22 06:52 Sodium 139 Potassium 4.4 Chloride 111 H Carbon Dioxide 21 BUN 14 Creatinine 0.79 Glucose 170 H Calcium 7.8 L Medications Administered Current Inpatient Medications Acetaminophen (Acetaminophen 325 Mg Tab) 650 mg PO Q4H PRN PRN Reason: Pain or Fever Stop: 10/25/22 15:17 Allopurinol (Allopurinol 300 Mg Tab) 300 mg PO QAM NANY Stop: 10/26/22 08:59 Last Admin: 09/27/22 09:15 Dose: 300 mg Allopurinol (Allopurinol 300 Mg Tab) 150 mg PO QPM NANY Stop: 10/25/22 20:59 Last Admin: 09/26/22 20:37 Dose: 150 mg Apixaban (Apixaban 5 Mg Tablet) 5 mg PO BID NANY Stop: 10/25/22 20:59 Last Admin: 09/27/22 09:08 Dose: 5 mg Aspirin (Aspirin 81 Mg Ectab) 81 mg PO HS [facility] Stop: 10/25/22 20:59 Last Admin: 09/26/22 20:39 Dose: 81 mg Atenolol (Atenolol 25 Mg Tablet) 12.5 mg PO DAILY [facility] Stop: 10/26/22 08:59 Last Admin: 09/27/22 09:12 Dose: 12.5 mg Ciprofloxacin (Ciprofloxacin 500 Mg Tab) 500 mg PO BID [facility]; Protocol Stop: 10/06/22 20:59 Last Admin: 09/27/22 09:09 Dose: 500 mg Dicyclomine HCl (Dicyclomine Hcl 20 Mg Tab) 20 mg PO TID PRN PRN Reason: IBS Stop: 10/25/22 16:23 Diltiazem HCl (Diltiazem Hcl 180 Mg Capcr) 360 mg PO QPM [facility] Stop: 10/25/22 20:59 Last Admin: 09/26/22 20:39 Dose: 360 mg Famotidine (Famotidine 20 Mg Tab) 20 mg PO BID [facility] Stop: 10/25/22 20:59 Last Admin: 09/27/22 09:11 Dose: 20 mg Fexofenadine HCl (Fexofenadine Hcl 180 Mg Tab) 180 mg PO DAILY PRN PRN Reason: Allergy Symptoms Stop: 10/25/22 16:23 Fluticasone Propionate (Fluticasone Propionate Na Spr 16 Gm Btl) 2 sprays CASSIA QAM [facility] Stop: 10/26/22 08:59 Last Admin: 09/27/22 09:16 Dose: Not Given Levothyroxine Sodium (Levothyroxine Sodium 137 Mcg Tablet) 137 mcg PO DAILYBB [facility] Stop: 10/26/22 06:29 Last Admin: 09/27/22 05:39 Dose: 137 mcg Loperamide HCl (Loperamide Hcl 2 Mg Cap) 2 mg PO TID PRN PRN Reason: loose stool Stop: 10/25/22 16:21 Last Admin: 09/25/22 17:02 Dose: 2 mg Magnesium Chloride (Magnesium Chloride W/Calcium 64mg Delayed Rel Tab) 64 mg PO QAM [facility] Stop: 10/27/22 10:44 Last Admin: 09/27/22 11:53 Dose: 64 mg Metronidazole (Metronidazole 500 Mg Tab) 500 mg PO TID [facility]; Protocol Stop: 10/06/22 20:59 Last Admin: 09/27/22 15:12 Dose: 500 mg Nitroglycerin (Nitroglycerin Sl 0.4 Mg/Tab Tab) 0.4 mg SL Q5M PRN PRN Reason: Chest Pain Stop: 10/25/22 16:29 Ondansetron HCl (Ondansetron Inj 2 Mg/Ml 2 Ml Vial) 4 mg IV Q6H PRN PRN Reason: Nausea Stop: 10/25/22 15:17 Pantoprazole Sodium (Pantoprazole 40 Mg Tab) 40 mg PO BID [facility] Stop: 10/25/22 20:59 Last Admin: 09/27/22 09:08 Dose: 40 mg Polyethylene Glycol (Polyethylene (Miralax) 17 Gm Pack) 17 gm PO DAILY PRN PRN Reason: Constipation Stop: 10/25/22 15:17 Prednisone (Prednisone 20 Mg Tab) 40 mg PO DAILY [facility] Stop: 10/30/22 16:14 Last Admin: 09/27/22 09:09 Dose: 40 mg Rosuvastatin Calcium (Rosuvastatin Calcium 5 Mg Tab) 5 mg PO DAILY [facility] Stop: 10/26/22 08:59 Last Admin: 09/27/22 09:13 Dose: 5 mg Saccharomyces Boulardii (Saccharomyces Boulardii 250 Mg Cap) 250 mg PO DAILY [facility] Stop: 10/25/22 16:29 Last Admin: 09/27/22 09:14 Dose: 250 mg Vitamin D (Cholecalciferol 1,000 Units 25 Mcg Tab) 1,000 units PO DAILY [facility] Stop: 10/26/22 08:59 Last Admin: 09/27/22 09:10 Dose: 1,000 units (1) Diverticulitis large intestine Diverticulitis bleeding: without bleeding Diverticulitis complication: without perforation or abscess Qualified Code(s): K57.32 - Diverticulitis of large intestine without perforation or abscess without bleeding (2) Diarrhea Diarrhea type: unspecified type Qualified Code(s): R19.7 - Diarrhea, unspecified (7) Hypertension Hypertension type: unspecified Qualified Code(s): I10 - Essential (primary) hypertension
[2022-09-27] MEDS: dilTIAZem HCL 180 MG CAPCR PO SCH (20:53)
[2022-09-27] MEDS: ASPIRIN 81 MG ECTAB PO SCH (20:54)
[2022-09-28] MEDS: LEVOTHYROXINE SODIUM 137 MCG TABLET PO SCH (05:54)
[2022-09-28 06:34] LABS: Hematocrit (blood only) 38.5 % (37.0-47.0); Hemoglobin 12.9 g/dl (12.0-16.0); Mean Corpuscular Hemoglobin 31.4 pg (25.0-34.0); Mean Corpuscular Hgb Conc 33.5 g/dL (32.0-36.0); Mean Corpuscular Volume 93.7 fL (80.0-100.0); Mean Platelet Volume 9.9 fL (9.4-12.4); Platelet Count 278 K/uL (130-400); RDW Coefficient of Variation 14.4 % (11.5-14.5); Red Blood Count 4.11 M/uL (4.20-5.40); White Blood Count 12.51 K/ul (4.8-10.8)
[2022-09-28 07:04] LABS: BUN Creatinine Ratio 21.3 (10-20); Calcium 8.7 mg/dl (8.6-10.3); Creatinine Clr Calc Pharmacy 61.2 ml/min; Est GFR (African American) 89.1 ml/min; Est GFR (Non-African American) 76.9 ml/min; Magnesium 1.8 mg/dl (1.7-2.4); Potassium 3.8 mmol/L (3.5-5.1)
[2022-09-28] MEDS: PANTOprazole 40 MG TAB PO SCH (08:32)
[2022-09-28] MEDS: CHOLECALCIFEROL 1,000 UNITS 25 MCG TAB PO SCH (08:33)
[2022-09-28] MEDS: metroNIDAZOLE 500 MG TAB PO SCH (08:33)
[2022-09-28] MEDS: MAGNESIUM CHLORIDE W/CALCIUM 64MG DELAYED REL TAB PO SCH (08:33)
[2022-09-28] MEDS: FAMOTIDINE 20 MG TAB PO SCH (08:33)
[2022-09-28] MEDS: SACCHAROMYCES BOULARDII 250 MG CAP PO SCH (08:34)
[2022-09-28] MEDS: CIPROFLOXACIN 500 MG TAB PO SCH (08:34)
[2022-09-28] MEDS: APIXABAN 5 MG TABLET PO SCH (08:34)
[2022-09-28] MEDS: ROSUVASTATIN CALCIUM 5 MG TAB PO SCH (08:35)
[2022-09-28] MEDS: predniSONE 20 MG TAB PO SCH (08:35)
[2022-09-28] MEDS: allopurinoL 300 MG TAB PO SCH (08:36)
[2022-09-28] MEDS: ATENOLOL 25 MG TABLET PO SCH (08:36)
[2022-09-28] MEDS: FLUTICASONE PROPIONATE NA SPR 16 GM BTL NAE SCH (08:39)
--- NOTE | 2022-09-28 12:32 | Discharge Summary ---
Date of Service September 28, 2022 Admission HPI Per Admitting Provider This is a 77yo F with a PMH of recent diverticulitis and gastroenteritis 2/2 astrovirus infection, recent PE with associated heart strain, hiatal hernia, mild asthma, CAD, history of tachybradycardia syndrome, ischemic cardiomyopathy, HTN, HLD, CKD stage III, hypothyroidism, GERD, history of DVT/PE who presents with diarrhea and nausea x 3 days. Patient with multiple hospitalizations within the past 6 weeks: admitted 08/18-08/31 for mild diverticulitis in proximal sigmoid colon with small focus of microperforation. Was transitioned from IV Zosyn to Cipro on discharge and scheduled for OP colonoscopy in September. Returned a few days later and was admitted from 09/02-09/06 with acute hypoxia and heart strain 2/2 extensive PE and was discharged on Eliquis. Nausea and diarrhea resolved at time of discharge home but continued to feel generally weak and fatigued and "not back to normal". Three days ago, patient started to have episodes of watery diarrhea again, which if continued approximately 8 times a day since. Also experiencing nausea and gagging despite being very careful about what she is eating. PCP ordered her Augmentin on 09/22 due to recurrent symptoms. Denies any other new medications besides Eliquis. Endorses chills, generalized weakness, and general discomfort in left lower quadrant. Denies any fever, chest pain, shortness of breath, vomiting, dysuria or constipation. Admission Exam Per Admitting Provider General Appearance:WD/WN, vitals as above, NAD, sitting up in bed, pleasant, anxious Head: normocephalic, atraumatic Eyes:normal inspection, PERRL, conjunctivae normal, anicteric sclerae ENT: external ear and nose normal, oropharynx normal Neck: normal visual inspection, trachea midline, no thyromegaly Respiratory:normal respiratory effort, lungs clear to auscultation, no wheeze, rales, rhonchi. No accessory muscle use Cardiovascular: regular rate, rhythm, no murmur, normal peripheral pulses, no BLE edema. Vessels: no JVD Chest: normal inspection of chest Abdomen/GI: hyperactive bowel sounds, soft, TTP LLQ but no guarding, no hepatosplenomegaly Extremities/Musculoskeletal: no cyanosis or clubbing, extremities motor strength 5/5 Neurologic: PERRL, EOMI, accommodation nl, no face palsy, no dysarthria, CN's II-XI intact bilaterally and moves all extremities Psychiatric:A+Ox3, euthymic affect Skin: no rashes, normal color, warm/dry Principal Diagnosis Mild acute diverticulitis, Acute gout flare Discharge Exam General: Sitting comfortably in chair, not in distress, on room air HEENT: EOMI, MAXIMUS, MMM Chest: Clear breath sounds bilaterally, no wheezes or crackles CVS: Regular rate and rhythm, normal heart sounds, no murmur Abdomen: Soft, non tender, not distended, normal bowel sounds Neuro: Awake, alert, oriented, conversing well, non focal Extremities: No cyanosis, clubbing or edema MSK: Right great toe with gout flare- improving Discharge Data Allergies Allergy/AdvReac Type Severity Reaction Status Date / Time imipenem Allergy Severe ANAPHYLAXIS Verified 09/02/22 15:13 Sulfa (Sulfonamide Allergy Severe hives,sob, Verified 09/02/22 15:13 Antibiotics) can take Dyazide daptomycin AdvReac Severe Anaphylaxis Unverified 09/02/22 15:13 colchicine AdvReac Intermediate diarrhea Verified 09/02/22 15:13 metoprolol AdvReac Mild fatigue Verified 09/02/22 15:13 zoledronic acid AdvReac Mild NAUSEA AND Verified 09/02/22 15:13 VOMITING Consultations 09/25/22 13:31 ED Decision to Admit Stat 09/25/22 15:03 Consult Infectious Diseases Routine Ordered Studies 09/25/22 10:54 CT abd pelvis IV con only Stat Laboratory Results WBC 12.51 K/ul (4.8-10.8) H 09/28/22 06:17 RBC 4.11 M/uL (4.20-5.40) L 09/28/22 06:17 Hgb 12.9 g/dl (12.0-16.0) 09/28/22 06:17 Hct 38.5 % (37.0-47.0) 09/28/22 06:17 MCV 93.7 fL (80.0-100.0) 09/28/22 06:17 MCH 31.4 pg (25.0-34.0) 09/28/22 06:17 MCHC 33.5 g/dL (32.0-36.0) 09/28/22 06:17 RDW Std Deviation 49.0 fL (36.4-46.3) H 09/28/22 06:17 RDW Coeff of Agnes 14.4 % (11.5-14.5) 09/28/22 06:17 Plt Count 278 K/uL (130-400) 09/28/22 06:17 MPV 9.9 fL (9.4-12.4) 09/28/22 06:17 Immature Gran % (Auto) 0.5 % 09/25/22 10:55 Neut % (Auto) 78.5 % 09/25/22 10:55 Lymph % (Auto) 10.9 % 09/25/22 10:55 [place] % (Auto) 7.5 % 09/25/22 10:55 Eos % (Auto) 2.1 % 09/25/22 10:55 Baso % (Auto) 0.5 % 09/25/22 10:55 Neut # (Auto) 11.85 K/uL (1.40-6.50) H 09/25/22 10:55 Lymph # (Auto) 1.64 K/uL (1.2-3.4) 09/25/22 10:55 [place]on # (Auto) 1.13 K/uL (0.11-0.59) H 09/25/22 10:55 Eos # (Auto) 0.31 K/uL (0-0.50) 09/25/22 10:55 Baso # (Auto) 0.08 K/uL (0-0.2) 09/25/22 10:55 Immature Gran # (Auto) 0.08 K/uL (0.01-0.20) 09/25/22 10:55 Peripher Smr Path Cons 09/25/22 21:16 PT 10.4 Seconds (9.0-12.0) 09/25/22 10:55 INR 0.9 (0.9-1.1) 09/25/22 10:55 Sodium 142 mmol/L (136-145) 09/28/22 06:17 Potassium 3.8 mmol/L (3.5-5.1) 09/28/22 06:17 Chloride 110 mmol/L (98-107) H 09/28/22 06:17 Carbon Dioxide 26 mmol/L (21-32) 09/28/22 06:17 Anion Gap 6 (3-11) 09/28/22 06:17 BUN 16 mg/dl (6-23) 09/28/22 06:17 Creatinine 0.75 mg/dl (0.6-1.2) 09/28/22 06:17 Est Cr Clr Drug Dosing 61.2 ml/min 09/28/22 06:17 Est GFR ( Amer) 89.1 ml/min 09/28/22 06:17 Est GFR (Non-Af Amer) 76.9 ml/min 09/28/22 06:17 BUN/Creatinine Ratio 21.3 (10-20) H 09/28/22 06:17 Glucose 101 mg/dl (70-99(Fasting)) H 09/28/22 06:17 Lactate 1.2 mmol/L (0.4-2.0) 09/25/22 13:30 Uric Acid 2.4 mg/dl (2.6-7.2) L 09/26/22 06:16 Calcium 8.7 mg/dl (8.6-10.3) 09/28/22 06:17 Phosphorus 2.5 mg/dl (2.5-4.9) 09/27/22 06:52 Magnesium 1.8 mg/dl (1.7-2.4) 09/28/22 06:17 Total Bilirubin 0.3 mg/dl (0.2-1.0) 09/25/22 10:55 AST 7 U/L (13-39) L 09/25/22 10:55 ALT 11 U/L (7-52) 09/25/22 10:55 Alkaline Phosphatase 90 U/L (34-104) 09/25/22 10:55 Troponin I High Sens 4.7 pg/ml (0-14) 09/25/22 10:55 Total Protein 7.0 gm/dl (6.0-8.3) 09/25/22 10:55 Total Protein (PEP) 4.9 g/dL (6.1-8.1) L 09/25/22 21:16 Albumin 4.0 gm/dl (3.4-5.0) 09/25/22 10:55 Albumin (PEP) 2.7 g/dL (3.8-4.8) L 09/25/22 21:16 Globulin 3.0 gm/dl (2.5-4.0) 09/25/22 10:55 Albumin/Globulin Ratio 1.3 (0.9-2) 09/25/22 10:55 Zbvro-7-Nvvuubkkz 0.3 g/dL (0.2-0.3) 09/25/22 21:16 Rfhue-8-Mjfreivdl 0.8 g/dL (0.5-0.9) 09/25/22 21:16 Cvry-5-Qmqenzze 0.3 g/dL (0.4-0.6) L 09/25/22 21:16 Ecyo-4-Ecxeqnzw 0.3 g/dL (0.2-0.5) 09/25/22 21:16 Gamma Globulins 0.5 g/dL (0.8-1.7) L 09/25/22 21:16 Monoclonal Peak 3 DNR g/dL (NONE DETECTED) 09/25/22 21:16 Ser Monoclonl Protein DNR g/dL (NONE DETECTED) 09/25/22 21:16 Ser Monoclonal Prot 2 DNR g/dL (NONE DETECTED) 09/25/22 21:16 PEP Interpretation SEE NOTE 09/25/22 21:16 Lipase 12 U/L (11-82) 09/25/22 10:55 TSH 3.072 uIu/ml (0.300-4.500) 09/25/22 10:55 Urine Color Yellow 09/25/22 19:50 Urine Appearance Clear (Clear) 09/25/22 19:50 Urine pH 5.0 (4.5-7.5) 09/25/22 19:50 Ur Specific [place] > 1.045 (1.000-1.030) H 09/25/22 19:50 Urine Protein Trace (Negative) H 09/25/22 19:50 Urine Glucose (UA) Negative (Negative) 09/25/22 19:50 Urine Ketones Trace (Negative) H 09/25/22 19:50 Urine Blood Negative (Negative) 09/25/22 19:50 Urine Nitrite Negative (Negative) 09/25/22 19:50 Urine Bilirubin Negative (Negative) 09/25/22 19:50 Urine Urobilinogen Negative (Negative) 09/25/22 19:50 Ur Leukocyte Esterase Negative (Negative) 09/25/22 19:50 Urine WBC (Auto) 1-5 /hpf (0-5) 09/25/22 19:50 Urine RBC (Auto) 0-4 /hpf (0-4) 09/25/22 19:50 U Hyaline Cast (Auto) 1-5 /lpf (0-5) 09/25/22 19:50 U Epithel Cells (Auto) >30 /lpf (0-5) H 09/25/22 19:50 Urine Bacteria (Auto) Negative (Negative) 09/25/22 19:50 Stl C. cayetanensis PCR Not Detected (NotDetected) 09/25/22 11:37 Stool Rotavirus A PCR Not Detected (NotDetected) 09/25/22 11:37 Stl Adenov F 40/41 PCR Not Detected (NotDetected) 09/25/22 11:37 Stool Astrovirus (PCR) DETECTED (NotDetected) A* 09/25/22 11:37 Stool Campylobacter PCR Not Detected (NotDetected) 09/25/22 11:37 Stl C. diff Tox B Gene Negative Cdiff Gene (Neg) 09/25/22 11:37 Stool Cryptosporidium PCR Not Detected (NotDetected) 09/25/22 11:37 Stl E.coli Shiga Tox PCR Not Detected (NotDetected) 09/25/22 11:37 Stl Enterotoxigenic E PCR Not Detected (NotDetected) 09/25/22 11:37 Stool EPEC (PCR) Not Detected (NotDetected) 09/25/22 11:37 Stool EAEC (PCR) Not Detected (NotDetected) 09/25/22 11:37 Stl E. histolytica PCR Not Detected (NotDetected) 09/25/22 11:37 Stool Giardia Lamblia PCR Not Detected (NotDetected) 09/25/22 11:37 Stool Salmonella PCR Not Detected (NotDetected) 09/25/22 11:37 Stool Sapovirus (PCR) Not Detected (NotDetected) 09/25/22 11:37 Stl P. shigelloides PCR Not Detected (NotDetected) 09/25/22 11:37 Stl Shigella/EIEC PCR Not Detected (NotDetected) 09/25/22 11:37 St Y.enterocolitica PCR Not Detected (NotDetected) 09/25/22 11:37 Stool Vibrio (PCR) Not Detected (NotDetected) 09/25/22 11:37 Stl Vibrio cholerae PCR Not Detected (NotDetected) 09/25/22 11:37 Stl Norovirus GI/GII PCR Not Detected (NotDetected) 09/25/22 11:37 IgG 600.6 mg/dl (635-1741) L 09/25/22 10:55 IgA 138.1 mg/dl (70-400) 09/25/22 10:55 IgM 88.2 mg/dl (45-281) 09/25/22 10:55 HIV (1&2) Ag & Ab Conf NON-REACTIVE (NON-REACTIVE) 09/25/22 21:16 SARS-CoV-2, RNA, NAAT NEGATIVE (NEGATIVE) 09/25/22 11:31 Impressions Abdomen/Pelvis CT 09/25/22 10:54 CT SCAN OF THE ABDOMEN AND PELVIS WITH IV CONTRAST CLINICAL HISTORY: Left lower quadrant abdominal pain. COMPARISON STUDY: Abdominal CT dated 08/18/2022. TECHNIQUE: Following the IV administration of 94 cc of Optiray 320, CT scan of the abdomen and pelvis is performed from the lung bases to the proximal femora. Images are reviewed in the axial, sagittal, and coronal planes. IV contrast was administered without complication. A dose lowering technique was utilized adhering to the principles of ALARA. CT DOSE: 1152.01 mGy.cm FINDINGS: Lung bases: The heart is enlarged and without pericardial effusion. Pacemaker leads are in place. The coronary arteries are densely calcified. The lung bases are clear noting bibasilar scarring/atelectasis. There is a large hiatal hernia. Liver: The contrast-enhanced liver is normal in size, contour, and attenuation. There is no intrahepatic biliary ductal dilatation. The hepatic veins and portal veins are patent. Gallbladder: Unremarkable. Spleen: Normal in size and attenuation. Pancreas: Atrophic and grossly unremarkable. Adrenal glands: Unremarkable. Kidneys: The contrast enhanced kidneys are normal in size and without hydronephrosis. The kidneys enhance symmetrically. There is a retroaortic left renal vein. There are large bilateral renal cysts. The largest cyst on the left measures 8.5 cm and contains thin peripheral calcifications. The largest cyst on the right measures 8.7 cm. There are at least 2 tiny nonobstructing right renal calculi which measure up to 2 mm. No left renal calculi are clearly seen on this contrast-enhanced examination. No ureteral stone is seen. Renal sinus cysts are present on the left. Abdominal vasculature: The abdominal aorta is normal in course and caliber noting mild atherosclerotic calcification. Bowel: There is advanced colonic diverticulosis. There is mild wall thickening with surrounding inflammation involving the proximal sigmoid colon seen on image #75 consistent with acute diverticulitis. No fluid collection is seen to indicate abscess. There is no bowel obstruction. There are large duodenal diverticula. The appendix is well-visualized and normal. Peritoneum: There is no intraperitoneal free air or abdominal ascites. There is a fat-containing umbilical hernia. Lymphadenopathy: None. Pelvic viscera: The bladder is normal as visualized. The uterus is surgically absent. No adnexal lesion is seen. There are bilateral fat-containing groin hernias. Skeletal structures: The skeletal structures are osteopenic. There is mild to moderate lumbosacral spondylosis. No lytic or blastic lesions are seen. There are subacute appearing right-sided rib fractures. Soft tissues: A resolving contusion/hematoma is again suggested in the right gluteal soft tissues. IMPRESSION: 1. Advanced colonic diverticulosis with evidence of mild acute sigmoid diverticulitis. 2. No intraperitoneal 1free air is identified and there is no organized fluid collection to suggest abscess. 3. Right-sided nephrolithiasis. 4. Cardiomegaly and cardiac pacemaker. 5. Large hiatal hernia. 6. Additional findings as above.. ACT 112: Negative or not required by law. Electronically signed by: Justin Irene M.D. 09/25/2022 1:06 PM Hospital Course (1) Diverticulitis large intestine: (2) Diarrhea: (3) Sepsis: (4) Pulmonary emboli: (5) Tachy-chintan syndrome: (6) CAD (coronary artery disease): (7) Hypertension: (8) History of DVT (deep vein thrombosis): (9) Hypogammaglobulinaemia, unspecified: (10) Gout flare: Plan This is a 77yo F with a PMH of recent diverticulitis and gastroenteritis 2/2 astrovirus infection, recent PE with associated heart strain, hiatal hernia, mild asthma, CAD, history of tachybradycardia syndrome, ischemic cardiomyopathy, HTN, HLD, CKD stage III, hypothyroidism, GERD, history of DVT/PE who presents with diarrhea and nausea x 3 days and has evidence of sigmoid diverticulitis on imaging as noted below. She improved rapidly with empiric zosyn and bowel rest. Seen by ID and recommended 1 week of cipro/flagyl. She has been tolerating low fiber diet without issues. Abd pain resolved, bowel movement semi solid now, no N/V. She did have a gout flare and is on a course of prednisone, that usually helps her. She is comfortable and stable for discharge home. CT A/P 1. Advanced colonic diverticulosis with evidence of mild acute sigmoid diverticulitis. 2. No intraperitoneal 1free air is identified and there is no organized fluid collection to suggest abscess. 3. Right-sided nephrolithiasis. 4. Cardiomegaly and cardiac pacemaker. 5. Large hiatal hernia. Sepsis on admission- resolved. Blood clx negative. UA unremarkable. Mild acute sigmoid diverticulitis without complication - improving on zosyn. Seen by ID- recommendations noted- swtitched zosyn to cipro/flagyl to completed 1 week antibiotic course along with probiotic. Low fiber diet for 3 weeks and OP colonoscopy in 6 weeks. Recommended to reschedule her colonoscopy which is scheduled within next 2 weeks. Astrovirus- conservative management, improved Recent bilateral pulmonary emboli- continue eliquis. No respiratory issues currently. Lifelong anticoag recommended given h/o VTE in the past GERD/Hiatal hernia- Continue pantoprazole, famotidine Tachy-chintan syndrome/Ischemic cardiomyopathy- s/p dual chamber pacemaker. Continue diltiazem CAD in [place] artery- Continue aspirin, statin Hypertension- continue atenolol, cardizem Hypothyroidism- continue levothyroxine Gout flare- start on prednisone D2/5. Intolerant to colchicine. No NSAIDs given full anticoag. continue home allopurinol. Uric acid at goal. Mild leucocytosis is likely from the steroid treatment and is improving. Hypomagnesemia-resolved Total Time Total Time Spent Total Time Spent (In Minutes): 38 Discharge Plan Discharge Items Patient Disposition: Home - Home Health Services Reason For Visit: DIVERTICULITIS Discharge Diagnosis: Acute mild diverticulitis, Gout flare, Astrovirus Activity: Resume your previous activity Non-emergency contact: Primary Care Provider Call non-emergency contact if: you have any medication questions, your symptoms worsen, your pain is not controlled and you have a fever Follow-up/Referrals: Nicol Ferguson MD [Outside Practitioners] - 10/01/22 5:40 pm (Follow up appt scheduled) Rafa Bergman MD [Primary Care Provider] - Diet: Low Fiber Addtl Attending Provider Instructions: Continue cipro/flagyl for 5 more days Contiue prednisone for 3 more days for gout flare Low fiber diet for 3 weeks, then high fiber diet Please reschedule your colonoscopy in about 6 weeks Follow up with your family doctor- appt scheduled for Saturday 5:[address] Ferguson Pending Studies at Discharge: No Stand-Alone Forms: [facility] [employer], Smoking Cessation Medications and DC Order Prescriptions: New prednisone 20 mg Tablet 40 mg PO DAILY 3 Days Qty: 3 0RF metronidazole 500 mg Tablet 500 mg PO TID Qty: 15 0RF ciprofloxacin HCl 500 mg Tablet 500 mg PO BID Qty: 10 0RF Saccharomyces boulardii [Florastor] 250 mg Capsule 250 mg PO DAILY 5 Days Qty: 5 0RF Continued fexofenadine [Elke Allergy] 180 mg Tablet 180 mg PO DAILY PRN (Reason: Allergy Symptoms) cholecalciferol (vitamin D3) [Vitamin D3] 2,000 unit Tablet 2,000 unit PO QAM Azo Bladder Control 300 mg Capsule 1 cap PO QAM nitroglycerin [Nitrostat] 0.4 mg tablet, sublingual 0.4 mg Sublingual Q5M Qty: 25 3RF Rx Instructions: 1 pill under tongue for chest pain. May repeat in 5 min. Call 911 if no relief. fluticasone propionate [Flonase Allergy Relief] 50 mcg/actuation [place],Suspension 2 spray INTRANASAL QAM Rx Instructions: use following nasal saline aspirin 81 mg Tablet,Delayed Release (Dr/Ec) 81 mg PO HS Qty: 0 0RF dicyclomine 20 mg Tablet 20 mg PO TID PRN (Reason: IBS) levothyroxine 137 mcg tablet 137 mcg PO DAILYBB diltiazem HCl 360 mg tablet extended release 24 hr 360 mg PO QPM rosuvastatin 5 mg tablet 5 mg PO DAILY coenzyme Q10 [CoQ-10] 100 mg Capsule 100 mg PO DAILY allopurinol 300 mg tablet 300 mg PO QAM pantoprazole 40 mg Tablet,Delayed Release (Dr/Ec) 40 mg PO BID Qty: 60 0RF Rx Instructions: take 40 mg twice a day. Eliquis 5 mg tablet 5 mg PO BID Qty: 60 0RF allopurinol 300 mg Tablet 150 mg PO QPM loperamide 2 mg Tablet 2 mg PO QID PRN (Reason: Diarrhea) atenolol 25 mg tablet 12.5 mg PO DAILY famotidine 20 mg Tablet 20 mg PO BID cholecalciferol (vitamin D3) 25 mcg (1,000 unit) Tablet 25 mcg PO DAILY Discontinued amoxicillin-pot clavulanate 875-125 mg tablet 1 tab PO BID Discharge Orders: Discharge Order (Routine); Ordered 09/28/22 Ordered By: Arik Liang/Other Patient Handouts: Pulmonary Embolism, Diverticulitis Dc, ED Diverticulitis Admission Data Admit Date/Time: 09/25/22 13:37 Attending Provider: Arik Roth Admit Provider: Jade Mcdaniel Primary Care Provider: Rafa Bergman Other Providers: Jade Mcdaniel ; Alex Ly ; Elza Alanis ; Den Herrera I. ; Bryan Abernathy II ; Dixie Olmedo ; Mykel Miguel ; Nghia Mccullough ; Marilyn Salas ; Greg Rizzo [facility] Other Interventions: Discharge Summary Assessment (RN) Last Done: 09/28/22 10:57
[2022-09-28 14:28] LABS: Abnormal Protein Band 1 DNR mg/24 h (NONE DETECTED); Abnormal Protein Band 2 DNR mg/24 h (NONE DETECTED); Abnormal Protein Band 3 DNR mg/24 h (NONE DETECTED); Creatinine, 24 hr Urine 0.35 g/24 h (0.50-2.15); Protein, Urine 24 Hour 96 mg/24 h (<150); Ur Protein/Creatinine Rat mg/g 276 mg/g creat (<150); Urine Protein/Creatinine Ratio 0.276 (<0.150)
== END 2022-09-28 13:14 | disposition home health service (06) | DRG 872 ==
LOC: ED 10:32 → SUATTDRO 13:37 → 3N 13:37

== ENCOUNTER 2023-02-24 09:10 | Inpatient (IN) ==
--- OUTSIDE RECORDS SUMMARY | 2023-02-24 09:17 | External Medical Summary ---
Author Name Unknown Address Unknown Organization [id number]:[facility]ATORY [facility] [place] [address] [place] [address] Laboratory Report Ordering Provider Test Date Status SANDRAGAVIN 02/12/2023 08:31:05 Marion l Observation Date Value Abnormality Reference (Units ) Status TSH 02/12/2023 08:31:05 2.55 0.27-4.20 (uIU/mL) Final Performing Location LAB[facility]ATORY [facility] - [address] [place] [address]
--- OUTSIDE RECORDS SUMMARY | 2023-02-24 09:17 | External Medical Summary ---
Author Name Unknown Address Unknown Organization [id number]:[facility] [place] [facility] [address] [place] [address] Laboratory Report Ordering Provider Test Date Status GAVIN FLORES 02/12/2023 08:31:05 Marion l Observation Date Value Abnormality Reference (Units ) Status BUN 02/12/2023 08:31:05 21 Above high normal 6-20 (mg/dL) Final Creatinine 02/12/2023 08:31:05 1.0 0.5-1.0 (mg/dL) Final Glomerular filtration rate/1.73 sq M.predicted [Volume Rate/Area] in Serum, Plasma or Blood by Creatinine-based formula (CKD-EPI) 02/12/2023 08:31:05 56 Below low normal >=60 (mL/min) Final eGFR is calculated based on the CKD-EPI 2020 equation SODIUM 02/12/2023 08:31:05 144 135-146 (m mol/L) Final Potassium 02/12/2023 08:31:05 5.0 3.5-5.1 (m mol/L) Final Cl 02/12/2023 08:31:05 104 98-107 (mm ol/L) Final CO2 02/12/2023 08:31:05 29 22-32 (mmo l/L) Final Anion gap 02/12/2023 08:31:05 11 7-15 (mmol /L) Final Glucose 02/12/2023 08:31:05 144 Above high normal 70 -120 (mg/dL) Final Albumin 02/12/2023 08:31:05 3.3 Below low normal 3.8 -5.0 (g/dL) Final AST (Aspartate aminotransferase) 02/12/2023 08:31:05 <5 Below low normal 10-35 (U/L) Final Alk Phos 02/12/2023 08:31:05 69 35-130 (U/ L) Final Bilirubin, Total 02/12/2023 08:31:05 0.3 <=1 .2 (mg/dL) Final Calcium 02/12/2023 08:31:05 8.8 8.4-10.2 ( mg/dL) Final Protein 02/12/2023 08:31:05 4.7 Below low normal 6.0 -8.3 (g/dL) Final ALT (Alanine aminotransferase) 02/12/2023 08:31:05 18 10-35 (U/L) John castrejon Performing Location LAB[facility] [place] [address] [facility] [address]
--- OUTSIDE RECORDS SUMMARY | 2023-02-24 09:17 | External Medical Summary ---
Author Name Unknown Address Unknown Organization [id number]:LAB[facility]ATORY [facility] - [address] [place] [address] Laboratory Report Ordering Provider Test Date Status SHANNAN,DURA 02/12/2023 08:31:05 Final Observation Date Value Abnormality Reference (Units ) Status Magnesium 02/12/2023 08:31:05 2.0 1.5-2.6 (m g/dL) Final Performing Location [facility] - [address] [place] [address]
--- OUTSIDE RECORDS SUMMARY | 2023-02-24 09:17 | External Medical Summary ---
Author Name Unknown Address Unknown Organization [id number]:LAB[facility]ATORY [facility] - [address] [place] [address] Laboratory Report Ordering Provider Test Date Status SHANNAN,DURA 02/12/2023 08:31:05 Final Observation Date Value Abnormality Reference (Units ) Status Vitamin B12 02/12/2023 08:31:05 153 781-5206 (pg/mL) Final Performing Location LAB[facility]ATORY [facility] - [address] [place] [address]
--- OUTSIDE RECORDS SUMMARY | 2023-02-24 09:17 | External Medical Summary | Summary of Care ---
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 Name Role Phone Rafa Bergman MD Primary Care Provide r Reason for Visit * Reason Comments Outpatient Testing Encounter Details Date Type Department Care Team (Late st Contact Info) Description 02/12/2023 8:20 AM EST Laboratory Laboratory [address] [place] [phone] [place] [address] Encounter for long-term (current) use of medications; HTN, goal below 140/90 Allergies Active Allergy Reactions Criticality Noted Date Comments Colchicine Diarrhea 06/16/2018 Daptomycin 01/05/2015 Shortness of breath Imipenem Edema airway High 01/05/2015 Metoprolol Low 01/23/2021 Other reaction(s): fatigue Zoledronic Acid 04/24/2012 Myalgias, fever, chills, vomiting x 2 days Sulfa Antibiotics 12/22/2002 Bactrim--itchy all over, eyes swollen documented as of this encounter (statuses as of 02/12/2023) Medications Medication Sig Dispensed Refills Start Date End Date Status VITAMIN D 1000 UNITS PO CAPS Take by mouth daily. 0 Active ASPIRIN 81 MG PO TABS Take by mouth at bedtime. 0 Active fluticasone (FLONASE) 50 MCG/ACT nasal spray Administer 2 Sprays into each nostril 2 times a day. Use following nasal saline. 1 Inhaler 5 08/13/2017 Active Acetaminophen 500 MG Oral Tablet Take 2 Tablets by mouth every 6 hours as needed for Pain. 0 Active CoQ10 100 MG Oral Capsule Take by mouth. 0 Active Diclofenac Sodium 1 % External Gel Apply topically to affected area. Apply to knees as needed 0 Active Nitroglycerin 0.4 MG Sublingual Tablet Sublingual (Nitrostat) Place under the tongue 1 Tablet as needed for Pain, Chest. 25 Tablet 1 01/08/2022 Active Terconazole 0.8 % Vaginal Cream Administer 1 Applicator into the vagina at bedtime. 20 g 0 03/16/2022 Active Levothyroxine Sodium 137 MCG Oral TabletIndications:H ypothyroidism (acquired) Take 1 Tablet by mouth daily first thing in the morning. (at least 30 min prior to breakfast or other meds) 90 Tablet 3 03/19/2022 Active Rosuvastatin Calcium 5 MG Oral Tablet (Crestor)Indication s:Dyslipidemia, goal LDL below 70 TAKE 1 TABLET BY MOUTH EVERY MORNING 30 Tablet 11 05/15/2022 Active Loperamide HCl 2 MG Oral Capsule (Imodium)Indication s:Diarrhea, unspecified type take 1 capsule 4 times daily as needed for loose stool 30 Capsule 3 08/01/2022 Active Famotidine 20 MG Oral Tablet (Pepcid)Indications :Abdominal pain, epigastric,Nausea take 1 tablet in the morning and 1 tablet before bedtime 180 Tablet 1 08/14/2022 Active Eliquis 5 MG Oral Tablet (Apixaban) TAKE ONE TABLET BY MOUTH TWICE DAILY 180 Tablet 1 09/28/2022 Active Ondansetron HCl 4 MG Oral Tablet Take 1 Tablet by mouth every 6 hours as needed for Nausea. 30 Tablet 0 10/04/2022 Active dilTIAZem HCl ER 360 MG Oral Tablet Extended Release 24 Hour TAKE ONE TABLET BY MOUTH EVERY DAY 90 Tablet 3 10/31/2022 Active prednisoLONE Acetate 1 % Ophthalmic Suspension (Pred Forte) Instill 1 Drop into the right eye 6 times a day. 15 mL 1 11/19/2022 Active Additional Information Patient taking differently:1 Drop Right eyeBID (.AM/PM), Reported on 02/07/2023 Metamucil 28.3 % Oral Powder (Psyllium) Take by mouth at bedtime as needed. Per directions on label. 0 Active predniSONE 5 MG Oral Tablet (Deltasone) TAKE ONE TABLET BY MOUTH EVERY DAY 30 Tablet 6 12/31/2022 Active Dicyclomine HCl 10 MG Oral Capsule (Bentyl)Indications :Diarrhea, unspecified type,Irritable bowel syndrome with both constipation and diarrhea take 1 capsule as needed in the morning, 1 capsules as needed at noon, 1 capsule as needed in the evening and 1 capsule as needed before bedtime for pain or gas. take for abdominal pain. 120 Capsule 0 01/08/2023 Active Atenolol 25 MG Oral Tablet (Tenormin)Indicatio ns:HTN, goal below 140/90 TAKE 1/2 TABLET BY MOUTH EVERY DAY 45 Tablet 3 01/14/2023 Active Pantoprazole Sodium 40 MG Oral Tablet Delayed Release (Protonix) TAKE ONE TABLET BY MOUTH IN THE MORNING 90 Tablet 1 01/27/2023 Active Allopurinol 300 MG Oral Tablet (Zyloprim) Take 1 and 1/2 tablets by mouth daily 135 Tablet 1 02/07/2023 Active Cetirizine HCl 10 MG Oral Tablet (ZyrTEC Allergy) Take 1 Tablet by mouth in the morning. 0 02/06/2023 Active Hospital, Clinic, or Other Facility Administered Medication Ordered Dose Route Frequency Start Date End Date Status Aflibercept (Eylea) intraviteal prefilled syringe 2 mgIndications: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 2 mg IZ PRN 09/19/2022 4 Active ROPivacaine (Naropin) inj 1.5 mgIndications: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 1.5 mg IJ PRN 09/19/2022 4 Active documented as of this encounter (statuses as of 02/12/2023) Active Problems Problem Noted Date Diagnosed Date Purulent endophthalmitis of right eye 01/03/2023 Nevus of 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 History of W[place] (myocardial infarction) 11/27/2022 History of pulmonary embolism 11/27/2022 Other pulmonary embolism with acute cor pulmonal e 10/01/2022 S/P placement of cardiac pacemaker 10/01/2022 Medical home patient encounter 09/13/2022 Tachy-chintan syndrome 09/10/2022 Gastro-esophageal reflux dis ease with esophagitis, without bleeding 12/15/2021 Prediabetes 05/15/2021 Overview: Per Prediabetes protocol Chronic kidney disease, stage 3a 03/13/2021 Overview: Per CKD protocol History of basal cell carcinoma 07/06/2020 Hypertensive kidney disease with stage 3a chronic kidney disease 02/08/2020 Overview: Per CKD protocol - Per CKD protocol S/P angioplasty with stent 11/27/2018 Atherosclerosis of [place] co ronary artery of [place] heart without angina pectoris 07/08/2018 Arthritis of left ankle 11/06/2017 Deviated nasal septum 10/14/2017 Rhinitis, nonallergic 08/13/2017 Recurrent sinus infections 08/13/2017 History of DVT (deep vein thrombosis) 01/02/2017 Overview: Not on anticoagulation due to internal bleeding. Both DVT were provoked. H/O nonmelanoma skin cancer 01/02/2017 Vitamin B12 deficiency 05/12/2014 Retinal vein occlusion of right eye 10/28/2013 Hypothyroidism (acquired) 09/15/2013 Dyslipidemia, goal LDL below 70 09/15/2013 HTN, goal below 140/90 03/02/2013 Senile osteoporosis 05/14/2008 documented as of this encounter (statuses as of 02/12/2023) Resolved Problems Problem Noted Date Diagnosed Date Resolved Date Atherosclerosis of coronary artery of [place] heart without angina pectoris 09/10/2022 10/31/2022 Hypothyroidism 12/15/2021 03/07/2022 Hyperlipidemia 12/15/2021 03/07/2022 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 07/13/2019 02/11/2020 Overview: Per CKD protocol Hypertensive kidney disease with chronic kidney disease stage II 02/25/2019 07/16/2019 Overview: Per CKD protocol Old myocardial infarct 06/09/201809/10 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 05/23/2018 11/24/2018 NSTEMI (non-ST elevated myoc ardial infarction) 05/01/2018 06/09/2018 Degenerative disc disease, cervical 05/18/2016 01/02/2017 Kidney disease, chronic, sta ge III (GFR 30-59 ml/min) 09/05/2015 06/10/2018 Overview: Per CKD protocol #1 Retroperitoneal bleed 02/28/20152015 DVT (deep venous thrombosis) 02/28/2015 01/02/2017 Traumatic rupture of left po sterior tibial tendon 12/07/2014 05/24/2015 Vitamin D insufficiency 05/12/201406/2016 Chronic sinusitis 10/28/2013 01/02/2017 Urinary frequency 09/15/2013 06/05/2016 Gastroesophageal reflux dise ase with esophagitis 09/15/2013 03/07/2022 Postmenopausal atrophic vaginitis 09/15/2013 12/31/2017 Allergic rhinitis 09/15/2013 08/13/2017 ADVANCE DIRECTIVE INFORMATION 04/23/2012 01/02/2017 Overview: No, Advance Directive brochure given to patient at prior appointment. Kidney disease, chronic, sta ge III (GFR 30-59 ml/min) 10/20/2009 09/15/2013 Overview: Per CKD Protocol, #1 Intermittent asthma with rel iever use up to twice per week 10/18/2009 01/02/2017 Pulmonary embolism and infarction 08/30/2009 01/02/2017 Pap smear of vagina with ASC-US 07/20/2009 05/11/2014 Overview: 05/10 - LGSIL 07/08 colpo - bx = fibroisis 11/07 - ASCUS + HPV 07/09 - ASCUS + HPV Colpo 08/08 - c/w HPV repeat 6 months Pap 06/27/10 - wnl Pap 12/10 - wnl Dyslipidemia, goal to be determined 03/08/2009 01/20/2010 Overview: Per Lipid Taxonomy. Intestinal disaccharidase deficiency 02/19/2008 09/15/2013 Other osteoporosis without c urrent pathological fracture 09/24/2005 03/02/2013 Overview: ICD-10 update of inactive term BENIGN KERRIE SKIN TRUNK 11/21/20042013 MALIG KERRIE SKIN ARM 09/05/2004 7 Malignant neoplasm of skin of trunk 09/05/2004 01/02/2017 Overview: ICD-10 update of inactive term Mixed dyslipidemia 05/13/2003 9 Overview: Resolved per Duplicate Protocol #2. Sebaceous hyperplasia, Rt forehead 10/05/97 01/28/2002 09/15/2013 Irritated, inflamed seborrhe ic keratosis, Above rt angle of mandible 04/09/01 01/28/20022013 Major depressive disorder 01/12/2002 Overview: ICD-10 update of inactive term Intradermal Nevus,right upper arm 11/12/2001 09/15/2013 new lesion- rt shoulder 11/03/200108/30 Prolapse of vaginal peterson 10/28/2000 Overview: ICD-10 update of inactive term Viral warts 09/15/2013 Overview: ICD-10 update of inactive term Hypothyroidism 09/15/2013 Asthma with severity to be determined 08/27/2008 Overview: ICD-10 update of inactive term Mixed dyslipidemia 9 Overview: Per Lipid Taxonomy. BENIGN PARXYSMAL VERTIGO DIVERTICULITIS OF COLON 08/30 Primary osteoarthritis of knee 01/02/2017 Derangement of meniscus 08/30 Presence of vena cava filter 02/28/2015 Atherosclerotic heart diseas e of [place] coronary artery with angina pectoris 11/2018 CKD (chronic kidney disease) stage 2, GFR 60-89 ml/min 03/12/2019 documented as of this encounter (statuses as of 02/12/2023) Immunizations Name Administration Dates Next Due COVID-19 mRNA, LNP-s, No Pre serve, 2-Dose Series (Moderna) 02/05/2022,02/28/2021,05/28/2020,04/02 COVID-19, mRNA, LNP-s, PF, B ooster, 100mcg/0.5mg (Moderna) 08/02/2021,02/07/2021 Hepatitis B, 20+ yrs 03/18/2009,06/14/2008,05/1211/14/2008 Pneumococcal Conjugate Vacc, 13 Valent (Prevnar) 03/28/2015 Pneumococcal Polysaccharide PPV23 (Pneumovax) 03/20/2010 SEASONAL INFLUENZA, PF, 6 M & Above, IM , (FLULAVAL or FLUZONE) 12/31/2019,02/17/2019,12/31/2017 Season Influenza, Quad, PF, Adjuvanted, 65+ Yrs, IM (FLUAD) 01/30/2022 Seasonal Influenza, Quadriva lent Hd (Fluzone Hd) 12/28/2020 Seasonal Influenza, Split, I IV3, With Preserve, Inj 02/21/2015,12/25/2013,12/31/2012,11/30,01/17/2011,01/20/2010,12/31/19 09,02/19/2008,02/06/2007,02/05/2006 Seasonal Influenza, Trivalen t, High Dose, No Preserve, IM 12/21/2016,04/05/2016 TDAP (age 11 and older)(Adacel) 11/03/2007 Varicella Zoster Vaccine (Adult) 11/04/2012 Zoster Vaccine Recombinant (Shingrix) 06/12/2021 ,02/28/2021 documented as of this encounter Social History Tobacco Use Types Packs/Day Years Used Date Smoking Tobacco: Never Smokeless Tobacco: Never Comments:second hand smoke e xposure - 10 years Alcohol Use Standard Drinks/Week Comments No 0 (1 standard drink = 0.6 oz pur e alcohol) PHQ-2 Answer Date Recorded PHQ Adult Total Score 0 07/17/2021 Hunger Vital Sign Answer Date Recorded Worried About Running Out of Food in the Last Ye ar Never true 12/15/2018 Ran Out of Food in the Last Year Never true 12/15/2018 Sex and Gender Information Value Date Recorded Sex Assigned at Not on file Gender Identity Not on file Sexual Orientation Not on file Job Start Date Occupation Industry Not on file Not on file Not on file documented as of this encounter Plan of Treatment Upcoming Encounters Date Type Department Care Team (Late st Contact Info) Description 02/13/2023 10:30 AM EST Office Visit Ophthalmology, [facility] [address] [place] [address] Pedro Tinsley DO [address] [place] [address] 02/26/2023 8:00 AM EST Office Visit Cardiology, [facility] [address] [facility] [place] [address] Shira Lu CRNP [address] [place] [address] [place] [phone] 03/06/2023 10:40 AM EST Office Visit Family Medicine [address] [place] [phone] Rafa Bergman MD [address] [place] [address] [place] [address] 03/12/2023 11:00 AM EST Nurse Only Ancillary [address] [place] [address] [place], Nurse Annual [address] [place] [address] 04/30/2023 10:15 AM EST Office Visit Dermatology [facility] [place] [address] [place] [address] Guy Trivedi MD [address] [place] [address] 05/16/2023 10:15 AM EST Hospital Encounter ENDO [facility], Endoscopy Room [facility] [address] [place] [phone] Nahun Hong MD [address] [place] [address] 05/16/2023 10:15 AM EST - 05/16/2023 10:45 AM EST Surgery ENDO [facility], Endoscopy Room [facility] [address] [place] [phone] Nahun Hong MD [address] [place] [address] COLONOSCOPY FLEXIBLE PROXIMAL DIAGNOSTIC 05/28/2023 9:00 AM EST Cardiac Studies Cardiology [address] [place] [address] [place], Pacer [facility] [place] [address] 07/05/2023 8:40 AM EDT Office Visit Rheumatology [address] [place] [phone] Deangelo Holley MD [facility] [place] [address] Pending Results Name Type Priority Associated Diagnoses Date /Time VITAMIN B12 Lab Routine Encounter for long-term (current) use of medications 02/12/2023 8:31 AM EST MAGNESIUM Lab Routine Encounter for long-term (current) use of medications 02/12/2023 8:31 AM EST ALBUMIN / CREATININE RATIO, URINE Lab Routine Encounter for long-term (current) use of medications HTN, goal below 140/90 02/12/2023 8:31 AM EST Scheduled Procedures Name Priority Associated Diagnoses Date/Ti me COLONOSCOPY FLEXIBLE PROXIMAL DIAGNOSTIC Colon cancer screening 05/16/2023 10:15 AM EST Health Maintenance Due Date Last Done Comments DTaP,Tdap,and Td Vaccines (2 - Td or Tdap) 11/02/2017 11/03/2007 CKD PHOS USE SMARTSET 56018 04/19/202204/01, 11/27/2019, 11/21/2018, Additional history exists Depression Screening 07/17/2022 07/17/2021 GFR 09/25/2022 03/27/2022, 03/02, 10/18/2021, Additional history exists COVID-19 Vaccine ( season) 2022 02/05/2022, 08/02/2021, 02/28/2021, Additional history exists Influenza Vaccine (FLU shot) (#1) 2022 01/30/2022, 12/28/2020, 12/31/2019, Additional history exists Albumin/Creatinine Ratio 03/21/2023 022, 04/19/2021, 12/31/2017, Additional history exists HbA1c 03/21/2023 03/21/2022, 04/01, 10/06/2020, Additional history exists CKD HGB USE SMARTSET 05521 04/24/202304/24, 04/24/2022, 03/27/2022, Additional history exists TSH 05/22/2023 05/22/2022, 03/02, 04/19/2021, Additional history exists DXA Scan 07/18/2024 07/18/2022, 12/01, 05/09/2017, Additional history exists Hepatitis B Completed 03/18/2009, 05/30, 05/12/2008 Pneumococcal Vaccine: 65+ Years Completed 03/28/2015, 03/20/2010, 11/15/2004 COLONOSCOPY-EVERY 5 YRS AGES 18-100 Discontinued 02/27/2017, 02/27/2017, 10/17/2004 Zoster Vaccines Completed 06/12/2021, 02/01, 11/04/2012 VITAMIN D LEVEL ONCE IN A LIFETIME-USE SMARTSET# [id number] Completed 11/06/2021, 12/28/2019, 06/24/2017, Additional history exists GARDASIL-HPV IMMUNIZATION SERIES Aged Out No longer eligible based on patient's age to complete this topic MENINGOCOCCAL (MENACTRA/MENVEO) Aged Out No longer eligible based on patient's age to complete this topic documented as of this encounter Medical Devices Implanted Type Area Chief Of Internal Medicine Device Identifier Shelf Expiration Date Model / Serial / Lot Lens Intraoc 21.5 - [id number] - [id number] Implanted:Qty: 1 on 05/12/2019 by Yury Brady MD at OR [facility] Right: Eye [employer] 12/30/2023 [id number] / [id number] / [id number] Lens Intraoc 22.5 - [id number] - [id number] Implanted:Qty: 1 on 04/05/2020 by Yury Brady MD at OR [facility] Left: Eye [employer] 09/28/2024 [id number] / [id number] / [id number] documented as of this encounter Visit Diagnoses Diagnosis Encounter for long-term (current) use of medications Encounter for long-term (current) use of other medications HTN, goal below 140/90 Unspecified essential hypertension Colon cancer screening Special screening for malignant neoplasms, colon documented in this encounter Advance Directives Documents on File Type Date Recorded 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 Question Answer Comments Discussion of Advance Directives occurred with: Patient Healthcare Agents on File Name Relationship Healthcare Agent Relationship Communication Krissy Ordonez Adult Child Health Care Agen t (per Health Care Power of Painter And Paperhanger Apprentice document) Guille Urban Adult Child Health Care Agen t (per Health Care Power of Painter And Paperhanger Apprentice document) Care Teams Replanting Machine Crew Relationship Specialty Start Date End Date Rafa Bergman MD [address] [place] [address] [place] [phone] PCP - General Family Medicine 04/19/21 documented as of this encounter
--- OUTSIDE RECORDS SUMMARY | 2023-02-24 09:17 | External Medical Summary | Summary of Care ---
Author Name Unknown Organization [facility] Address [address] [place] [address] Phone [phone] Care Team Providers Care Head Screen Worker Name Role Phone Rafa Bergman MD Primary Care Provide r Reason for Visit * Reason Comments Acute Encounter Details Date Type Department Care Team (Late st Contact Info) Description 02/11/2023 6:00 PM EST Office Visit Family Medicine [address] [place] [phone] Rafa Bergman MD [address] [place] [address] [place] [phone] Fatigue, unspecified type* Allergies Active Allergy Reactions Criticality Noted Date Comments Colchicine Diarrhea 06/16/2018 Daptomycin 01/05/2015 Shortness of breath Imipenem Edema airway High 01/05/2015 Metoprolol Low 01/23/2021 Other reaction(s): fatigue Zoledronic Acid 04/24/2012 Myalgias, fever, chills, vomiting x 2 days Sulfa Antibiotics 12/22/2002 Bactrim--itchy all over, eyes swollen documented as of this encounter (statuses as of 02/11/2023) Medications Medication Sig Dispensed Refills Start Date End Date Status VITAMIN D 1000 UNITS PO CAPS Take by mouth daily. 0 Active ASPIRIN 81 MG PO TABS Take by mouth at bedtime. 0 Active fluticasone (FLONASE) 50 MCG/ACT nasal spray Administer 2 Sprays into each nostril 2 times a day. Use following nasal saline. 1 Inhaler 5 8 Active Acetaminophen 500 MG Oral Tablet Take [...] needed for Pain, Chest. 25 Tablet 1 2 Active Terconazole 0.8 % Vaginal Cream Administer 1 Applicator into the vagina at bedtime. 20 g 0 2 Active Levothyroxine Sodium 137 MCG Oral TabletIndications :Hypothyroidism (acquired) Take 1 Tablet by mouth daily first thing in the morning. (at least 30 min prior to breakfast or other meds) 90 Tablet 3 2 Active Rosuvastatin Calcium 5 MG Oral Tablet (Crestor)Indicati ons:Dyslipidemia, goal LDL below 70 TAKE 1 TABLET BY MOUTH EVERY MORNING 30 Tablet 11 3 Active Loperamide HCl 2 MG Oral Capsule (Imodium)Indicati ons:Diarrhea, unspecified type take 1 capsule 4 times daily as needed for loose stool 30 Capsule 3 3 Active Famotidine 20 MG Oral Tablet (Pepcid)Indicatio ns:Abdominal pain, epigastric,Nausea take 1 tablet in the morning and 1 tablet before bedtime 180 Tablet 1 3 Active Eliquis 5 MG Oral Tablet (Apixaban) TAKE ONE TABLET BY MOUTH TWICE DAILY 180 Tablet 1 3 Active Ondansetron HCl 4 MG Oral Tablet Take 1 Tablet by mouth every 6 hours as needed for Nausea. 30 Tablet 0 3 Active dilTIAZem HCl ER 360 MG Oral Tablet Extended Release 24 Hour TAKE ONE TABLET BY MOUTH EVERY DAY 90 Tablet 3 3 Active prednisoLONE Acetate 1 % Ophthalmic Suspension (Pred Forte) Instill 1 Drop into the right eye 6 times a day. 15 mL 1 3 Active Additional Information Patient taking differently:1 Drop Right eyeBID (.AM/PM), Reported on 02/07/2023 Metamucil 28.3 % Oral Powder (Psyllium) Take by mouth at bedtime as needed. Per directions on label. 0 Active predniSONE 5 MG Oral Tablet (Deltasone) TAKE ONE TABLET BY MOUTH EVERY DAY 30 Tablet 6 3 Active Dicyclomine HCl 10 MG Oral Capsule (Bentyl)Indicatio ns:Diarrhea, unspecified type,Irritable bowel syndrome with both constipation and diarrhea take 1 capsule as needed in the morning, 1 capsules as needed at noon, 1 capsule as needed in the evening and 1 capsule as needed before bedtime for pain or gas. take for abdominal pain. 120 Capsule 0 3 Active Atenolol 25 MG Oral Tablet (Tenormin)Indicat ions:HTN, goal below 140/90 TAKE 1/2 TABLET BY MOUTH EVERY DAY 45 Tablet 3 3 Active Pantoprazole Sodium 40 MG Oral Tablet Delayed Release (Protonix) TAKE ONE TABLET BY MOUTH IN THE MORNING 90 Tablet 1 3 Active Allopurinol 300 MG Oral Tablet (Zyloprim) Take 1 and 1/2 tablets by mouth daily 135 Tablet 1 3 Active Cetirizine HCl 10 MG Oral Tablet (ZyrTEC Allergy) Take 1 Tablet by mouth in the morning. 0 3 Active Saccharomyces boulardii 250 MG Oral Packet Take 250 mg by mouth daily. 0 3 02/12/20 23 Discontinued Moxifloxacin HCl 0.5 % Ophthalmic Solution (Vigamox) Instill 1 Drop into the right eye 6 times a day. 3 mL 1 3 02/12/20 23 Discontinued Nystatin 102343 UNIT/ML Mouth/Throat SuspensionIndicat ions:Thrush Swish and swallow 5 mL in the morning and 5 mL at noon and 5 mL in the evening and 5 mL before bedtime. For thrush.. 240 mL 1 3 02/12/20 23 Discontinued Hospital, Clinic, or Other Facility Administered Medication Ordered Dose Route Frequency Start Date End Date Status Aflibercept (Eylea) intraviteal prefilled syringe 2 mgIndications: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 2 mg IZ PRN 09/19/2022 4 Active ROPivacaine (Naropin) inj 1.5 mgIndications: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 1.5 mg IJ PRN 09/19/2022 Active documented as of this encounter (statuses as of 02/11/2023) Active Problems Problem Noted Date Diagnosed Date Purulent endophthalmitis of right eye 01/03/2023 Nevus of 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 History of WI (myocardial infarction) 11/27/2022 History of pulmonary embolism [...] S/P angioplasty with stent 11/27/2018 Atherosclerosis of [place] co ronary artery of [place] heart without angina pectoris 07/08/2018 Arthritis of [...] as of this encounter (statuses as of 02/11/2023) Resolved Problems Problem Noted Date Diagnosed Date Resolved Date Atherosclerosis of coronary artery of [place] heart without angina pectoris 09/10/2022 10/31/2022 Hypothyroidism [...] filter 02/28/2015 Atherosclerotic heart diseas e of [place] coronary artery with angina pectoris 11/2018 CKD (chronic kidney disease) stage 2, GFR 60-89 ml/min 03/12/2019 documented as of this encounter (statuses as of 02/11/2023) Immunizations Name Administration Dates Next Due COVID-19 [...] on file documented as of this encounter Last Filed Vital Signs Vital Sign Reading Time Taken Comments Blood Pressure 126/72 02/11/2023 5:31 PM EST Pulse 88 02/11/2023 5:31 PM EST Temperature 37.1 C (98.7 F) 02/11/2023 5:31 PM ES T Respiratory Rate - - Oxygen Saturation 93% 02/11/2023 5:31 PM EST Inhaled Oxygen Concentration - - Weight 76.7 kg (169 lb) 02/11/2023 5:31 PM EST Height - - Body Mass Index 29.94 01/21/2023 3:49 PM EDT documented in this encounter Progress Notes * Rafa Bergman MD - 02/11/2023 5:34 PM EST Subjective: HPI: Rehana Moran is a 78 year old female with hx of hypothyroidism, HLD, HTN, hx of WI, CAD s/p stent, GERD, CKD III, osteoporosis, hx of DVT/PE x2 (2009, 2022), Renal cyst, tachy-chintan syndrome s/p dual chamber pacemaker, prediabetes, macular degeneration, R retinal vein occlusion, B/L TKA, Gout seen for Pt had eye surgery done on 01/30 - vision is improving Severe fatigue, feeling cold, dry skin, lack of motivation - denied any fever, rash - denied any black stool or bloody stool - for 4 weeks - also having chills (intermittent) - also having leg swelling (b/l) ---- denied any skin erythema - has been taking 5mg of prednisone for 4 months ----- for chronic joint pain - has been compliant with levothyroxine Patient Active Problem List Diagnosis Code Senile osteoporosis M81.0 HTN, goal below 140/90 I10 Hypothyroidism (acquired) E03.9 Dyslipidemia, goal LDL below 70 E78.5 Retinal vein occlusion of right eye H34.8112 Vitamin B12 deficiency E53.8 History of DVT (deep vein thrombosis) Z86.718 H/O nonmelanoma skin cancer Z85.828 Rhinitis, nonallergic J31.0 Recurrent sinus infections J32.9 Deviated nasal septum J34.2 Arthritis of left ankle M19.072 Atherosclerosis of [place] coronary artery of [place] heart without angina pectoris I25.10 S/P angioplasty with stent Z95.820 Hypertensive kidney disease with stage 3a chronic kidney disease I12.9, N18.31 History of basal cell carcinoma Z85.828 Chronic kidney disease, stage 3a (HCC) N18.31 Prediabetes R73.03 Gastro-esophageal reflux disease with esophagitis, without bleeding K21.00 Tachy-chintan syndrome (HCC) I49.5 Medical home patient encounter Z00.8 Other pulmonary embolism with acute cor pulmonale ([facility]) I26.09 S/P placement of cardiac pacemaker Z95.0 History of WI (myocardial infarction) I25.2 History of pulmonary embolism Z86.711 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 Current Outpatient Medications Medication Sig Dispense Refill VITAMIN D 1000 UNITS PO CAPS Take by mouth daily. ASPIRIN 81 MG PO TABS Take by mouth at bedtime. fluticasone (FLONASE) 50 MCG/ACT nasal spray Administer 2 Sprays into each nostril 2 times a day. Use following nasal saline. 1 Inhaler 5 Acetaminophen 500 MG Oral Tablet Take 2 Tablets by mouth every 6 hours as needed for Pain. CoQ10 100 MG Oral Capsule Take by mouth. Diclofenac Sodium 1 % External Gel Apply topically to affected area. Apply to knees as needed Nitroglycerin 0.4 MG Sublingual Tablet Sublingual (Nitrostat) Place under the tongue 1 Tablet as needed for Pain, Chest. 25 Tablet 1 Terconazole 0.8 % Vaginal Cream Administer 1 Applicator into the vagina at bedtime. 20 g 0 Levothyroxine Sodium 137 MCG Oral Tablet Take 1 Tablet by mouth daily first thing in the morning. (at least 30 min prior to breakfast or other meds) 90 Tablet 3 Rosuvastatin Calcium 5 MG Oral Tablet (Crestor) TAKE 1 TABLET BY MOUTH EVERY MORNING 30 Tablet 11 Loperamide HCl 2 MG Oral Capsule (Imodium) take 1 capsule 4 times daily as needed for loose stool 30 Capsule 3 Famotidine 20 MG Oral Tablet (Pepcid) take 1 tablet in the morning and 1 tablet before bedtime 180 Tablet 1 Eliquis 5 MG Oral Tablet (Apixaban) TAKE ONE TABLET BY MOUTH TWICE DAILY 180 Tablet 1 Ondansetron HCl 4 MG Oral Tablet Take 1 Tablet by mouth every 6 hours as needed for Nausea. 30 Tablet 0 dilTIAZem HCl ER 360 MG Oral Tablet Extended Release 24 Hour TAKE ONE TABLET BY MOUTH EVERY DAY 90 Tablet 3 Metamucil 28.3 % Oral Powder (Psyllium) Take by mouth at bedtime as needed. Per directions on label. predniSONE 5 MG Oral Tablet (Deltasone) TAKE ONE TABLET BY MOUTH EVERY DAY 30 Tablet 6 Dicyclomine HCl 10 MG Oral Capsule (Bentyl) take 1 capsule as needed in the morning, 1 capsules as needed at noon, 1 capsule as needed in the evening and 1 capsule as needed before bedtime for pain or gas. take for abdominal pain. 120 Capsule 0 Atenolol 25 MG Oral Tablet (Tenormin) TAKE 1/2 TABLET BY MOUTH EVERY DAY 45 Tablet 3 Pantoprazole Sodium 40 MG Oral Tablet Delayed Release (Protonix) TAKE ONE TABLET BY MOUTH IN THE MORNING 90 Tablet 1 Allopurinol 300 MG Oral Tablet (Zyloprim) Take 1 and 1/2 tablets by mouth daily 135 Tablet 1 Cetirizine HCl 10 MG Oral Tablet (ZyrTEC Allergy) Take 1 Tablet by mouth in the morning. prednisoLONE Acetate 1 % Ophthalmic Suspension (Pred Forte) Instill 1 Drop into the right eye 6 times a day. (Patient taking differently: Instill 1 Drop into the right eye in the morning and 1 Drop before bedtime.) 15 mL 1 Current Facility-Administered Medications Medication Dose Route Frequency Provider Last Rate Last Admin Aflibercept (Eylea) intraviteal prefilled syringe 2 mg 2 mg Intravitreal PRN Pedro Tinsley,DO 2 mg at 11/13/22 1525 ROPivacaine (Naropin) inj 1.5 mg 1.5 mg Injection PRN Pedro Tinsley, DO 1.5 mg at 11/13/22 1525 Past Medical History: Diagnosis Date Allergic rhinitis Atherosclerotic heart disease of [place] coronary artery with angina pectoris ([facility]) Benign neoplasm of skin Benign paroxysmal vertigo 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 10/28/2013 Chronic sinusitis 10/28/2013 CKD (chronic kidney disease) stage 2, GFR 60-89 ml/min Degenerative disc disease, cervical 05/18/2016 Derangement of meniscus right knee Diverticulitis of colon DVT (deep venous thrombosis) ([facility]) 02/28/2015 Dyslipidemia, goal LDL below 100 09/15/2013 GERD (gastroesophageal reflux disease) 09/15/2013 HTN, goal below 140/90 Hypothyroidism (acquired) 09/15/2013 INFORMATION 02/05/00 pulmonary embolism Intermittent asthma, reliever use 0-2/wk 10/18/2009 Intradermal Nevus,right upper arm 11/12/2001 Kidney cyst, acquired KIDNEY DZ,CHRONIC (GFR 30-59) STAGE III 10/20/2009 Per CKD Protocol, #1 MALIG KERRIE SKIN ARM 09/05/2004 MALIG KERRIE SKIN TRUNK 09/05/2004 new lesion- rt shoulder NSTEMI (non-ST elevated myocardial infarction) (HCC) 04/28/2018 [facility], cathed and LAD stented with AMIE, RCA PCI Osteoarthrosis, unspecified whether generalized or localized, lower leg right knee Other seborrheic keratosis Seborrheic Keratosis Pap smear of vagina with ASC-US 07/20/200905/10 - LGSIL 07/08 colpo - bx = fibroisis 11/07 - ASCUS + HPV 07/09 - ASCUS + HPV Colpo 08/08 - c/w HPVrepeat 6 months Pap 06/27/10 - wnl Pap 12/10 - wnl Pericarditis 11/13/2018 dyspnea related to hypertension, elevated TSH, small pericardial effusion [facility] Pericarditis as complication of acute myocardial infarction 05/15/2018 [facility] colchicine not tolerated well. Pericarditis as complication of acute myocardial infarction 06/05/2018 [facility] steroids Postmenopausal atrophic vaginitis 09/15/2013 Presence of vena cava filter PROLAPSE OF VAGINAL WALL 10/28/2000 Pulmonary embolism and infarction (HCC) 08/30/2009 Pulmonary embolus (HCC) 2000 Retroperitoneal bleed 02/28/2015 Sebaceous hyperplasia, Rt forehead 10/05/97 01/28/2002 Senile osteoporosis 05/14/2008 Traumatic rupture of left posterior tibial tendon 12/07/14 Urinary frequency 09/15/2013 Viral warts, unspecified Condylomata Vitamin B12 deficiency 05/12/2014 Vitamin D insufficiency 05/12/2014 Past Surgical History: Procedure Laterality Date ARTHROPLASTY KNEE TOTAL 08/18/2009 right knee ARTHROPLASTY KNEE TOTAL 11/11/2014 left knee- [facility]- Dr. Lopez CARDIAC CATH-CARDIOLOGY ONLY 04/28/2018 AMIE to LAD, PCI to RCA COLONOSCOPY 09/2004 diverticulosis COLONOSCOPY, DIAGNOSTIC (RECTUM) 02/27/2017 diverticulosis, repeat 5 yrs/COLONOSCOPY FLEXIBLE PROXIMAL DIAGNOSTIC performed by Ford Pantoja MD at ENDOSCOPY [facility] CTA CHEST NON-CORONARY W CONTRAST 11/13/2018 no PE, no pneumonia DEXA SCAN/BONE MINERAL AXIAL 04/2000 repeat in 5 years DEXA SCAN/BONE MINERAL AXIAL 12/2007 T = -2.1, repeat 2 years DEXA SCAN/BONE MINERAL AXIAL 04/2010 repeat 2 years DOBUTAMINE STRESS ECHO 11/13/2018 no ischemia INJECTION OF EYE DRUG 12/02/2013 #1 Lucentis 0.5mg OD; Dr. Tinsley INJECTION OF EYE DRUG 01/08/2014 #2 Lucentis 0.5mg OD; Dr. Tinsley INJECTION OF EYE DRUG 02/12/2014 #3 Lucentis 0.5mg OD, Dr Tinsley INJECTION OF EYE DRUG 03/30/2014 #4 Lucentis 0.5mg OD, Dr. Tinsley INJECTION OF EYE DRUG 05/07/2014 #5 Lucentis 0.5mg OD, Dr. Tinsley INJECTION OF EYE DRUG 06/18/2014 # 6 Lucentis 0.5mg OD, INJECTION OF EYE DRUG Right 08/20/2014 # 7 Lucentis 0.5mg OD, Dr. Tinsley INJECTION OF EYE DRUG 09/17/2014 # 8 Lucentis 0.5mg OD, Dr. Tinsley INJECTION OF EYE DRUG Right 10/15/2014 # 9 Lucentis 0.5mg OD, INJECTION OF EYE DRUG Right 11/05/2014 #10 Lucentis 0.5mg OD, Dr Tinsley INJECTION OF EYE DRUG Right 01/12/2015 # 11 Lucentis 0.5mg OD, Dr. Tinsley INJECTION OF EYE DRUG Right 02/07/2015 # 12 Lucentis 0.5mg OD, INJECTION OF EYE DRUG Right 03/11/2015 # 13 Lucentis 0.5mg OD, Dr. Tinsley INJECTION OF EYE DRUG Right 04/22/2015 # 14 Lucentis 0.5mg OD, INJECTION OF EYE DRUG Right 06/03/2015 # 15 Lucentis 0.5mg OD, INJECTION OF EYE DRUG Right 07/15/2015 # 16 Lucentis 0.5mg OD, Dr. Tinsley INJECTION OF EYE DRUG Right 08/26/2015 # 17 Lucentis 0.5mg OD, Dr. Tinsley INJECTION OF EYE DRUG Right 10/21/2015 # 1 Eylea OD, Dr. Tinsley INJECTION OF EYE DRUG Right 12/06/2015 # 2 Eylea OD, INJECTION OF EYE DRUG Right 01/20/2016 # 3 Eylea OD, Dr. Tinsley INJECTION OF EYE DRUG Right 03/16/2016 # 4 Eylea OD, Dr. Tinsley INJECTION OF EYE DRUG Right 06/01/2016 # 5 Eylea OD, Dr. Tinsley INJECTION OF EYE DRUG Right 07/27/2016 #6 Eylea OD, Dr. Tinsley INJECTION OF EYE DRUG Right 10/05/2016 # 7 Eylea OD, Dr. Tinsley INJECTION OF EYE DRUG Right 11/30/2016 # 8 Eylea OD, Dr. Tinsley INJECTION OF EYE DRUG Right 01/25/2017 # 9 Eylea OD, Dr. Tinsley INJECTION OF EYE DRUG Right 03/21/2017 # 10 Eylea OD, Dr. Tinsley INJECTION OF EYE DRUG Right 05/17/2017 # 11 Eylea OD; Dr. Tinsley INJECTION OF EYE DRUG Right 07/25/2017 # 12 Eylea OD, Dr. Tinsley INJECTION OF EYE DRUG Right 10/03/2017 # 13 Eylea OD, Dr. Tinsley INJECTION OF EYE DRUG Right 11/28/2017 # 14 Eylea OD, Dr. Tinsley INJECTION OF EYE DRUG Right 01/30/2018 # 15 Eylea OD, Dr. Tinsley INJECTION OF EYE DRUG Right 04/03/2018 # 16 Eylea OD, INJECTION OF EYE DRUG Right 06/12/2018 # 17 Eylea OD, INJECTION OF EYE DRUG Right 08/21/2018 # 18 Eylea OD, Dr. Tinsley INJECTION OF EYE DRUG Right 11/25/2018 # 19 Eylea OD, Dr. Tinsley INJECTION OF EYE DRUG Right 02/17/2019 # 20 Eylea OD, INJECTION OF EYE DRUG Right 05/27/2019 # 21 Eylea OD, Dr. Tinsley INJECTION OF EYE DRUG Right 08/13/2019 # 22 Eylea OD, Dr. Tinsley INJECTION OF EYE DRUG Right 10/29/2019 # 23 Eylea OD, INJECTION OF EYE DRUG Right 01/21/2020 # 24 Eylea OD, Dr. Tinsley INJECTION OF EYE DRUG Right 03/22/2020 # 25 Eylea OD, Dr. Tinsley INJECTION OF EYE DRUG Right 06/02/2020 # 26 Eylea OD, INJECTION OF EYE DRUG Right 08/04/2020 # 27 Eylea OD, INJECTION OF EYE DRUG Right 10/06/2020 # 28 Eylea OD, INJECTION OF EYE DRUG Right 12/01/2020 # 29 Eylea OD, Dr. Tinsley INJECTION OF EYE DRUG Right 01/30/2021 # 30 Eylea OD, Dr. Tinsley INJECTION OF EYE DRUG Right 03/29/2021 # 31 Eylea OD, Dr. Tinsley INJECTION OF EYE DRUG Right 05/24/2021 # 32 Eylea OD, Dr. Tinsley INJECTION OF EYE DRUG Right 07/13/2021 # 33 Eylea OD, Dr. Tinsley INJECTION OF EYE DRUG Right 08/29/2021 #34 Eylea OD, Dr Tinsley INJECTION OF EYE DRUG Right 10/31/2021 # 35 Eylea OD, Dr. Tinsley INJECTION OF EYE DRUG Right 12/19/2021 # 36 Elyea OD, Rin Tinsley INJECTION OF EYE DRUG Right 02/27/2022 # 37 Eylea OD, Dr. Tinsley INJECTION OF EYE DRUG Right 04/18/2022 #38 Eylea OD Laureano INJECTION OF EYE DRUG Right 06/12/2022 # 39 Eylea OD, Dr. Tinsley INJECTION OF EYE DRUG Right 07/31/2022 # 40 Eylea OD, Dr. Tinsley INJECTION OF EYE DRUG Right 09/19/2022 # 41 Eylea OD, Dr. Tinsley INJECTION OF EYE DRUG Right 11/13/2022 #42 Eylea OD; Dr Tinsley IR FILTER PLACEMENT VENA CAVA 10/2014 [facility] MISCELLANEOUS ORDER ([facility] ONLY) 12/02/2013-12/02/2014 LUCENTIS 0.5MG CONSENT SIGNED OD; DR LAUREANO MATHEWSCELLYAMIL ORDER ([facility] ONLY) Right 01/12/2015-01/13/2016 LUCENTIS 0.5MG CONSENT OD SIGNED; DR LAUREANO ADAN ORDER ([facility] ONLY) Right 10/21/2015-10/20/2016 EYLEA OD CONSENT SIGNED, Dr. Laureano ADAN ORDER ([facility] ONLY) Right 11/30/2016-11/30/2017 Eylea OD consnet signed, Dr.Cessna ADAN ORDER ([facility] ONLY) Right 01/30/18-01/30/19 EYLEA OD CONSENT SIGNED, Dr. Cessna MISCELLANEOUS ORDER ([facility] ONLY) ACT 112 signed, 06/12/2018 MISCELLANEOUS ORDER ([facility] ONLY) Right 02/17/2019-02/18/2020 Eylea OD Consent signed, Dr.Cessna ADAN ORDER ([facility] ONLY) Right EYLEA OD CONSENT SIGNED DR. TINSLEY 03/22/20-03/22/21 MRI KNEE WO CONTRAST 02/23/2009 medial menisus tear, OA, right knee, 611 MRI OTHER (INFORMATION) Right EYLEA OD CONSENT SIGNED, Dr. Tinsley (Exp 03-29-2022) OTHER (INFORMATION) Bilateral EYLEA OU CONSENT DR. TINSLEY/MAYNOR EXP. 04/18/23 REMOVAL OF INNER EYE FLUID Right 01/30/2023 RIGHT VITRECTOMY MECHANICAL PARS PLANA APPROACH performed by Brian Gagnon DO at OR [facility] REMOVAL OF TONSILS, UNDER AGE 12 REMOVE CATARACT, INSERT LENS PROSTH Right 05/12/2019 right EXTRACAPSULAR CATARACT REMOVAL WITH INTRAOCULAR LENS performed by Yury Brady MD at OR [facility] REMOVE CATARACT, INSERT LENS PROSTH Left 04/05/2020 left EXTRACAPSULAR CATARACT REMOVAL WITH INTRAOCULAR LENS performed by Yury Brady MD at OR [facility] REPAIR BLADDER & VAGINA, CYSTOCELE 01/2001 Dr Amaya TOTAL ABD HYSTERECTOMY W/WO REMOVAL OF TUBE(S) 1986 Total Abd Hysterectomy with bilateral salpingo-oophorectomy US RENAL 12/31/2011 renal cyst, small post voiding residual VASC DUPLEX VENOUS LE BILAT 11/13/2018 no DVT Review of patient's allergies indicates: Allergen Reactions Imipenem Edema airway Colchicine Diarrhea Daptomycin Shortness of breath Reclast [Zoledronic Acid] Myalgias, fever, chills, vomiting x 2 days Sulfa Antibiotics Bactrim--itchy all over, eyes swollen Metoprolol Other reaction(s): fatigue Family History Problem Relation Age of Onset Hypertension Mother dementia Thyroid Disorder Mother Stroke Mother Mini strokes, multiple Hypertension Father Heart Disorder Father rheumatic heart ds, age 62 with mi Allergies Daughter significant allergic rhinitis Mental Disorder Son h/o depression, attempted suicide Asthma Son Cancer None Diabetes None Eye Problems None pt denies hx AMD, glaucoma, retinal detachments or blindness No Past Hx None 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 NAD, well developed HEENT:. Normal Conjunctiva, EOMI Cardiac:. Normal S1, S2, no murmur Lungs:. CTA, no wheezing or crackles MSK:moderate b/l LE pitting edema , no skin erythema Psych:. AAOx3, normal affect ASSESSMENT/PLAN: The symptoms could be post viral vs daily prednisone use - will get labs done first Fatigue, unspecified type (Primary) - CBC WITH WBC DIFFERENTIAL - LYME DISEASE ANTIBODY SCREEN WITH REFLEX TO CONFIRMATION - TSH - COMPREHENSIVE METABOLIC PANEL I spent a total of 30-39 minutes (exact time 32 mins) on the date of service in preparation, delivery, and documentation of the care provided to Rehana Moran excluding any time spent in the performance of separately billed services. Rafa Bergman MD Family medicine, [place] [id number] documented in this encounter Nursing Notes * Jessi Fonseca LPN - 02/11/2023 5:31 PM EST Discuss Thyroid. Right leg & foot swollen documented in this encounter Plan of Treatment Upcoming Encounters Date Type Department Care Team (Late st Contact Info) Description 02/12/2023 4:15 PM EST Imaging Radiology [facility] 1st Floor, [address] [place] [id number] 02/13/2023 10:30 AM EST Office Visit Ophthalmology, [address] [place] [address] Pedro Tinsley DO [address] [place] [id number] 02/26/2023 8:00 AM EST Office Visit Cardiology, [facility] [address] [place] [address] Shira Lu CRNP [address] [place] [address] [place] [phone] 03/06/2023 10:40 AM EST Office Visit Family Medicine [address] [place] [phone] Rafa Bergman MD [address] [place] [address] [place] [id number] 03/12/2023 11:00 AM EST Nurse Only Ancillary [address] [place] [phone] [place], Nurse Annual [address] [place] [address] 04/30/2023 10:15 AM EST Office Visit Dermatology [facility] [address] [place] [address] Guy Trivedi MD [address] [place], [place] [address] 05/16/2023 10:15 AM EST Hospital Encounter ENDO [facility], Endoscopy Room [facility] [address] [place] [phone] Nahun Hong MD [address] [place] [address] 05/16/2023 10:15 AM EST - 05/16/2023 10:45 AM EST Surgery ENDO [facility], Endoscopy Room [facility] [address] [place] [phone] Nahun Hong MD [address] [place] [id number] COLONOSCOPY FLEXIBLE PROXIMAL DIAGNOSTIC 05/28/2023 9:00 AM EST Cardiac Studies Cardiology [address] [place] [address] [facility], Pacer [facility] [address] [place] [address] 07/05/2023 8:40 AM EDT Office Visit Rheumatology [address] [place] [phone] Deangelo Holley MD [address] [place] [address] [place] [address] Scheduled Orders Name Type Priority Associated Diagnoses Orde r Schedule CBC WITH WBC DIFFERENTIAL Lab Routine Fatigue, unspecified type Ordered: 02/11/2023 LYME DISEASE ANTIBODY SCREEN WITH REFLEX TO CONFIRMATION Lab Routine Fatigue, unspecified type Ordered: 02/11/2023 TSH Lab Routine Fatigue, unspecified type Ordered: 02/11/2023 COMPREHENSIVE METABOLIC PANEL Lab Routine Fatigue, unspecified type Ordered: 02/11/2023 Scheduled Procedures Name Priority Associated Diagnoses Date/Ti me COLONOSCOPY FLEXIBLE PROXIMAL DIAGNOSTIC Colon cancer screening 05/16/2023 10:15 AM EST Health Maintenance Due Date Last Done Comments DTaP,Tdap,and Td Vaccines (2 - Td or Tdap) 11/02/2017 11/03/2007 CKD PHOS USE SMARTSET 28610 04/19/202204/01, 11/27/2019, 11/21/2018, Additional history exists Depression Screening 07/17/2022 07/17/2021 GFR 09/25/2022 03/27/2022, 03/02, 10/18/2021, Additional history exists COVID-19 Vaccine (2022- season) 2022 02/05/2022, 08/02/2021, 02/28/2021, Additional history exists Influenza Vaccine (FLU shot) (#1) 2022 01/30/2022, 12/28/2020, 12/31/2019, Additional history exists Albumin/Creatinine Ratio 03/21/2023 022, 04/19/2021, 12/31/2017, Additional history exists HbA1c 03/21/2023 03/21/2022, 04/01, 10/06/2020, Additional history exists CKD HGB USE SMARTSET 87388 04/24/202304/24, 04/24/2022, 03/27/2022, Additional history exists TSH 05/22/2023 05/22/2022, 03/02, 04/19/2021, Additional history exists DXA Scan 07/18/2024 07/18/2022, 12/01, 05/09/2017, Additional history exists Hepatitis B Completed 03/18/2009, 05/30, 05/12/2008 Pneumococcal Vaccine: 65+ Years Completed 03/28/2015, 03/20/2010, 11/15/2004 COLONOSCOPY-EVERY 5 YRS AGES 18-100 Discontinued 02/27/2017, 02/27/2017, 10/17/2004 Zoster Vaccines Completed 06/12/2021, 02/01, 11/04/2012 VITAMIN D LEVEL ONCE IN A LIFETIME-USE SMARTSET# [id number] Completed 11/06/2021, 12/28/2019, 06/24/2017, Additional history exists GARDASIL-HPV IMMUNIZATION SERIES Aged Out No longer eligible based on patient's age to complete this topic MENINGOCOCCAL (MENACTRA/MENVEO) Aged Out No longer eligible based on patient's age to complete this topic documented as of this encounter Medical Devices Implanted Type Area Clinical Research Associate Device Identifier Shelf Expiration Date Model / Serial / Lot Lens Intraoc 21.5 - [id number] - [id number] Implanted:Qty: 1 on 05/12/2019 by Yury Brady MD at [facility] Right: Eye [employer] 12/30/2023 [id number] / [id number] / [id number] Lens Intraoc 22.5 - [id number] - [id number] Implanted:Qty: 1 on 04/05/2020 by Yury Brady MD at [facility] Left: Eye [employer] 09/28/2024 [id number] / [id number] / [id number] documented as of this encounter Visit Diagnoses Diagnosis Fatigue, unspecified type- Primary Colon cancer screening Special screening for malignant neoplasms, colon documented in this encounter Advance Directives Documents on File Type Date Recorded Patient Glass Wool Blanket Machine Feeder Expl anation Advance Directives and Living Will [...] File Name Relationship Healthcare Agent Relationship Communication Krissyva Ordonez Adult Child Health Care Agen t (per Health Care Power of Office Analyst document) Guille Urban Adult Child Health Care Agen t (per Health Care Power of Office Analyst document) Care Teams Head Screen Worker Relationship Specialty Start Date End Date Rafa Bergman MD [address] [place] [address] [place] [phone] PCP - General Family Medicine 04/19/21 documented as of this encounter"
--- OUTSIDE RECORDS SUMMARY | 2023-02-24 09:17 | External Medical Summary | Summary of Care ---
Author Name Unknown Organization [facility] Address [address] [place] [facility] [place] [place] [address] Phone [phone] Care Team Providers Care Drywall Taper Helper Name Role Phone Rafa Bergman MD Primary Care Provide r Reason for Visit * Reason Onset Date Comments Test Results 02/13/2023 Encounter Details Date Type Department Care Team (Late st Contact Info) Description 02/13/2023 Telephone Family Medicine [address] [place] [phone] Rafa Bergman MD [address] [place] [address] [place] [id number] Test Results Allergies Active Allergy Reactions Criticality Noted Date Comments Colchicine Diarrhea 06/16/2018 Daptomycin 01/05/2015 Shortness of breath Imipenem Edema airway High 01/05/2015 Metoprolol Low 01/23/2021 Other reaction(s): fatigue Zoledronic Acid 04/24/2012 Myalgias, fever, chills, vomiting x 2 days Sulfa Antibiotics 12/22/2002 Bactrim--itchy all over, eyes swollen documented as of this encounter (statuses as of 02/13/2023) Medications Medication Sig Dispensed Refills Start Date [...] mouth in the morning. 0 02/06/2023 Active Vitamin B-12 1000 MCG Oral Tablet (Cyanocobalamin) Take 1 Tablet by mouth in the morning. 90 Tablet 1 02/13/2023 Active Hospital, Clinic, or Other Facility Administered [...] as of this encounter (statuses as of 02/13/2023) Active Problems Problem Noted Date Diagnosed Date Purulent endophthalmitis of right eye 01/03/2023 Nevus of 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 History of AR (myocardial infarction) 11/27/2022 History of pulmonary embolism [...] S/P angioplasty with stent 11/27/2018 Atherosclerosis of [place] co ronary artery of [place] heart without angina pectoris 07/08/2018 Arthritis of [...] as of this encounter (statuses as of 02/13/2023) Resolved Problems Problem Noted Date Diagnosed Date Resolved Date Atherosclerosis of coronary artery of [place] heart without angina pectoris 09/10/2022 10/31/2022 Hypothyroidism [...] tibial tendon 12/07/2014 05/24/2015 Vitamin D insufficiency 05/12/2014 1006/2016 Chronic sinusitis 10/28/2013 01/02/2017 Urinary frequency 09/15/2013 [...] filter 02/28/2015 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 11/2018 CKD (chronic kidney disease) stage 2, GFR 60-89 ml/min 03/12/2019 documented as of this encounter (statuses as of 02/13/2023) Immunizations Name Administration Dates Next Due COVID-19 mRNA, LNP-s, No Pre serve, 2-Dose Series (Moderna) 02/05/2022,02/28/2021,05/28/2020,04/02 COVID-19, mRNA, LNP-s, PF, B ooster, 100mcg/0.5mg (Moderna) 08/02/2021,02/07/2021 Hepatitis B, 20+ yrs 03/18/2009,06/14/2008,05/1211/14/2008 Influenza, Whole Virus 02/26/2000 1 Pneumococcal Conjugate Vacc, 13 Valent (Prevnar) 03/28/2015 Pneumococcal Polysaccharide PPV23 (Pneumovax) 03/20/2010,11/15/2004 SEASONAL INFLUENZA, PF, 6 M & Above, IM , (FLULAVAL or FLUZONE) 12/31/2019,02/17/2019,12/31/2017 Season Influenza, Quad, PF, Adjuvanted, 65+ Yrs, IM (FLUAD) 01/30/2022 Seasonal Influenza, Quadriva lent Hd (Fluzone Hd) 12/28/2020 Seasonal Influenza, Split, I IV3, With Preserve, Inj 02/21/2015,12/25/2013,12/31/2012,11/30,01/17/2011,01/20/2010,12/31/19 09,02/19/2008,02/06/2007,02/05/2006,1 04/14/2004,01/11/2004,01/19/2003,01/12 Seasonal Influenza, Trivalen t, High Dose, No [...] on file documented as of this encounter Miscellaneous Notes * Addendum Note - Lisa Dutton RPh - 02/13/2023 3:58 PM ESTAddended by: LISA DUTTON on: 02/13/2023 03:58 PM Modules accepted: Orders * Telephone Encounter - Rafa Bergman MD - 02/13/2023 10:41 AM EST Med signed. Thank you * Telephone Encounter - Lisa Dutton RPh - 02/13/2023 8:15 AM EST VITAMIN B12 - [facility] Date Value Ref Range Status 02/12/2023 243 232 - 1,245 pg/mL Final 02/12/2020 323 232 - 1,245 pg/mL Final Patient's vitamin B12 level came back borderline low. This could be associated with long-term pantoprazole use. I recommend starting this patient on a B12 supplement. RX is pended for vitamin b 12 (CYANOCOBALAMIN) 1000 MCG TABS 1 tablet daily. I also ordered repeat B12 lab for patient to recheck in3 months. Please approve pended RX if appropriate. Route back to me if approved so I can notify patient to advise of new supplement. Thanks, Lisa Dutton PharmD Clinical Pharmacist [facility] ([facility] [phone] 02/13/2023, 8:15 AM documented in this encounter Plan of Treatment Upcoming Encounters Date Type Department Care Team (Late st Contact Info) Description 02/26/2023 8:00 AM EST Office Visit Cardiology, [facility] [address] [place] [phone] Shira Lu CRNP [address] [place] [address] [place] [phone] 03/06/2023 10:40 AM EST Office Visit Family Medicine [address] [place] [phone] Rafa Bergman MD [address] [place] [address] [place] [address] 03/12/2023 11:00 AM EST Nurse Only Ancillary [address] [place] [address] [place], Nurse Annual [address] [place] [address] 04/10/2023 10:45 AM EST Office Visit Ophthalmology, [facility] [address] [place] [address] Pedro Tinsley DO [address] [place] [address] 04/30/2023 10:15 AM EST Office Visit Dermatology [facility] [address] [place], [place] [address] Guy Trivedi MD [address] [place], [place] [address] 05/16/2023 10:15 AM EST Hospital Encounter [facility]O [facility], Endoscopy Room [facility] [address] [place] [phone] Nahun Hong MD [address] [place] [address] 05/16/2023 10:15 AM EST - 05/16/2023 10:45 AM EST Surgery ENDO [facility], Endoscopy Room [facility] [address] [place] [phone] Nahun Hong MD [address] [place] [address] COLONOSCOPY FLEXIBLE PROXIMAL DIAGNOSTIC 05/28/2023 8:20 AM EST Laboratory Laboratory [address] [place] [phone] [facility] [address] [place] [address] 05/28/2023 9:00 AM EST Cardiac Studies Cardiology [address] [place] [address] [facility] [address] [place] [address] 07/05/2023 8:40 AM EDT Office Visit Rheumatology [address] [place] [phone] Deangelo Holley MD [address] [place] [address], [place] [address] Scheduled Orders Name Type Priority Associated Diagnoses Orde r Schedule VITAMIN B12 Lab Routine Encounter for long-term (current) use of medications Expected: 05/16/2023 (Approximate), Expires: 02/14/2024 Scheduled Procedures Name Priority Associated Diagnoses Date/Ti me COLONOSCOPY FLEXIBLE PROXIMAL DIAGNOSTIC Colon cancer screening 05/16/2023 10:15 AM EST Health Maintenance Due Date Last Done Comments DTaP,Tdap,and Td Vaccines (2 - Td or Tdap) 11/02/2017 11/03/2007 CKD PHOS USE SMARTSET 00178 04/19/202204/01, 11/27/2019, 11/21/2018, Additional history exists Depression Screening 07/17/2022 07/17/2021 COVID-19 Vaccine ( season) 2022 02/05/2022, 08/02/2021, 02/28/2021, Additional history exists Influenza Vaccine (FLU shot) (#1) 2022 01/30/2022, 12/28/2020, 12/31/2019, Additional history exists HbA1c 03/21/2023 03/21/2022, 04/01, 10/06/2020, Additional history exists GFR 08/13/2023 02/12/2023, 03/02, 03/21/2022, Additional history exists Albumin/Creatinine Ratio 02/13/2024 023, 03/21/2022, 04/19/2021, Additional history exists CKD HGB USE SMARTSET 03783 02/13/202402/12, 02/12/2023, 04/24/2022, Additional history exists TSH 02/13/2024 02/12/2023, 05/03, 03/21/2022, Additional history exists DXA Scan 07/18/2024 07/18/2022, 12/01, 05/09/2017, Additional history exists Hepatitis B Completed 03/18/2009, 05/30, 05/12/2008 Pneumococcal Vaccine: 65+ Years Completed 03/28/2015, 03/20/2010, 11/15/2004 COLONOSCOPY-EVERY 5 YRS AGES 18-100 Discontinued 02/27/2017, 02/27/2017, 10/17/2004 Zoster Vaccines Completed 06/12/2021, 02/01, 11/04/2012 VITAMIN D LEVEL ONCE IN A LIFETIME-USE SMARTSET# [id number] Completed 11/06/2021, 12/28/2019, 06/24/2017, Additional history exists GARDASIL-HPV IMMUNIZATION SERIES Aged Out No longer eligible based on patient's age to complete this topic MENINGOCOCCAL (MENACTRA/MENVEO) Aged Out No longer eligible based on patient's age to complete this topic documented as of this encounter Medical Devices Implanted Type Area Anchor Tacker Device Identifier Shelf Expiration Date Model / Serial / Lot Lens Intraoc 21.5 - [id number] - [id number] Implanted:Qty: 1 on 05/12/2019 by Yury Brady MD at [facility] Right: Eye [employer] 12/30/2023 [id number] / [id number] / [id number] Lens Intraoc 22.5 - [id number] - [id number] Implanted:Qty: 1 on 04/05/2020 by Yury Brady MD at [facility] Left: Eye [employer] 09/28/2024 [id number] / [id number] / [id number] documented as of this encounter Visit Diagnoses Diagnosis Encounter for long-term (current) use of medications- Primary Encounter for long-term (current) use of other medications Colon cancer screening Special screening for malignant neoplasms, colon documented in this encounter Advance Directives Documents on File Type Date Recorded Patient Engraver Block Expl anation Advance Directives and Living Will [...] Agen t (per Health Care Power of Thrasher Feeder document) Guille Urban Adult Child Health Care Agen t (per Health Care Power of Thrasher Feeder document) Care Teams Drywall Taper Helper Relationship Specialty Start Date End Date Rafa Bergman MD [address] [place] [address] [place] [phone] PCP - General Family Medicine 04/19/21 documented as of this encounter
--- OUTSIDE RECORDS SUMMARY | 2023-02-24 09:17 | External Medical Summary | Summary of Care ---
Author Name Unknown Organization [facility] Address [address] [facility] [place] [address] Phone [phone] Care Team Providers Care Property Coordinator Name Role Phone Rafa Bergman MD Primary Care Provide r Reason for Visit * Reason Comments Follow Up 2-3 week Dilation wi th OCT OD. 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*; Endophthalmitis purulent, right Allergies Active Allergy Reactions Criticality Noted Date [...] 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 History of AK (myocardial infarction) 11/27/2022 History of pulmonary embolism [...] S/P angioplasty with stent 11/27/2018 Atherosclerosis of [place] co ronary artery of [place] heart without angina pectoris 07/08/2018 Arthritis of [...] Resolved Date Atherosclerosis of coronary artery of [place] heart without angina pectoris 09/10/2022 10/31/2022 Hypothyroidism [...] filter 02/28/2015 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 Eye vitals reviewed. Mood and Affect: normal HPI: Rehana Moran is a 78 year old female who presents for RVO No other eye complaints. Denies significant pain. Base Eye Exam Visual Acuity (Snellen - Linear) Right Left Dist sc 20/150 20/20 Dist ph sc NI Visual Toribio (Counting fingers) Right Left Full Extraocular Movement Right Left Full Full Neuro/Psych Oriented x3: Yes Mood/Affect: Normal EXTERNAL: The ocular adnexae are unremarkable. SLE: Lids/Lashes: wnl OU Conjunctiva/Sclera: quiet OU Cornea: clear OD; clear OS Anterior Chamber: deep and quiet OU Iris: normal OU Lens: PCIOL OU Dilated fundus exam OD: vitreous: clear optic nerve: 0.2, no edema/pallor/NVD macula: +heme, ST BRVO, +1DA flat nevus temporal macula w/ no orange pig/srfluid vessels: +ST BRVO midperiphery: wnl periphery: no RT/RD Dilated fundus exam OS: 09/19/2022 vitreous: clear optic nerve: 0.2, no edema/pallor/NVD macula: wnl vessels: wnl midperiphery: wnl periphery: no RT/RD OCT Interpretation: OD: irf - worse 218um prior STABLE, prior STABLE, prior improved, prior worse 126um prior improved 62um prior worse superiorly 69um, prior STABLE, prior STABLE, prior STABLE, prior improved 163um, prior worse 47um, prior improved, prior mixed, prior worse 83um, prior worse, prior worse, prior improved 113um prior worse 134um prior worse 153um, prior STABLE, prior improved, prior stable OS: 11-30-16: wnl, no CME/SRFluid - stable Ultrasound Interpretation: 11/20/2022 OD: vit debri, no RD OS: n/a A/P: 1. 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 -pt risk factors: HTN, hyperchol--on meds for all -h/o multiple clots -already taking ASA 81 mg qday -h/o PE--on coumadin -s/p Lucentis (07/15/15, 05/24/21, 06/03/15, 04/22/15, 03/11/15, 02/07/15, 01/12/15, 11/03/14, 10/15/14, 09/17/14, 08/20/14, 06/18/14, 05/07/14, 03/30/14, 02/12/14, 01/08/14, 12/02/13) -s/p EYLEA (11/13/22#--endophthalmitis, 09/19/22, 07/31/22, 06/12/22, 04/18/22, 08/29/21, 07/13/21, 03/29/21, , --, --, --, 06/02/20, 03-22-20, 01-21-20, 10/29/19, 08-13-19, 05/27/19, 11-25-18,08-21-18, 06-12-18, 04-03-18, 01-30-18, 11/28/17, 10-03-17, 07-25-17, 05-17-2017, 03-21-17, 01-25-17, 11-30-16,10-05-16, 07/27/16, 06-01-16, 03-16-2016, 12/06/15, 10/21/15) - worse at 9 and 10 and 12 weeks was good in past at 12-14 weeks - best at 6-8 weeks in past 2. h/o Endophthalmitis OD -s/p Eylea 11/13/22 s/p ceftaz+vanco 11/17/22 -cx: coagulase negative staph -tapered off PF bid x 7 days then qd x 7 days, then stop -finished levaquin 500mg 7 day course -resolved -PPV 01/30/23--Dr. Gagnon 3. Small Choroidal Nevus OD -low risk -monitor F/u 2-3 weeks; dilate OD x 2; OCT OD Pedro Tinsley, TIMEOUT PROCEDURE: correct patient identity-YES correct procedure and consent-YES verified side and site-YES correct patient position-YES all necessary equipment/prior studies present-YES reviewed special requirements of this patient-YES PROCEDURE: Intravitreal injection of Eylea (aflibercept) 2mg OD INFORMED CONSENT: Risks, benefits and alternatives have been discussed with the patient. Risks include, but are not limited to: retinal tears, detachments, hemorrhage, glaucoma, infection, cataracts, need for more procedures and the potential risk of arterial thromboembolic events following use of intravitreal VEGF inhibitors defined as nonfatal stroke, nonfatal myocardial infarction or vascular . Patient is aware of these risks and consents to the procedure. DESCRIPTION OF PROCEDURE: The procedure site was confirmed. Topical proparacaine was applied to the surface of the eye after which subconjunctival anesthetic was administered. The area was prepped in the standard aseptic manner with 5% Betadine solution. An eyelid speculum was placed and 2mg (0.05 ml) of Eylea was injected 3.75 mm posterior to the limbus into the midvitreous cavity with a 30 gauge short needle. The eye speculum was removed, Betadine was flushed from the eye and optic nerve perfusion was insured. The patient tolerated the procedure without difficulty and was given followup instructions and instructed to use ophthalmic ointment 3x/day as needed. Pedro Tinsley DO, performed the procedure in its entirety. documented in this encounter Nursing Notes * Naresh Cabral COA - 02/13/2023 12:35 PM EST Rehana Moran to receive # [id number] Eylea 2mg Injection of the Right eye. Correct eye confirmed with patient and marked by Pedro Tinsley DO Eylea 2mg lot # [id number] Exp. Date: 04/2024 * Naresh Cabral COA - 02/13/2023 10:44 AM EST Rehana Moran is a 78 year old year old female who presents for 2-3 week Dilation with OCT OD. Last Office Visit: 12/25/2022 (in office), Visit date not found (telemedicine) Patient currently states "I can see now" Are you diabetic? No Do you drive? yes OCT image(s) of right eye acquired and filed/scanned into chart. documented in this encounter Plan of Treatment Upcoming Encounters Date Type Department Care Team (Late st Contact Info) Description 02/26/2023 8:00 AM EST Office Visit Cardiology, [facility] [address] [place] [address] Shira Lu CRNP [address] [facility] [place] [phone] 03/06/2023 10:40 AM EST Office Visit Family Medicine [address] [place] [phone] Rafa Bergman MD [address] [place] [address] [place] [address] 03/12/2023 11:00 AM EST Nurse Only Ancillary [address] [place] [address] [place], Nurse Annual [address] [place] [address] 04/10/2023 10:45 AM EST Office Visit Ophthalmology, [facility] [address] [place] [address] Pedro Tinsley, DO [address] [place] [address] 04/30/2023 10:15 AM EST Office Visit Dermatology [facility] [place]a [place] [address] [place] [address] Guy Trivedi MD [address] [place] [address] 05/16/2023 10:15 AM EST Hospital Encounter ENDO [facility], Endoscopy Room [facility] [address] [place] [address] Nahun Hong MD [address] [place] [address] 05/16/2023 10:15 AM EST - 05/16/2023 10:45 AM EST Surgery ENDO [facility], Endoscopy Room [facility] [address] [place] [phone] Nahun Hong MD [address] [place] [address] COLONOSCOPY FLEXIBLE PROXIMAL DIAGNOSTIC 05/28/2023 9:00 AM EST Cardiac Studies Cardiology [address] [place] [address] [place], Pacer Clinic [facility] [address] [place] [address] 07/05/2023 8:40 AM EDT Office Visit Rheumatology [address] [place] [phone] Deangelo Holley MD [facility] [address] Scheduled Orders Name Type Priority Associated Diagnoses Orde r Schedule RETINA SCAN DIAGNOSTIC IMAGE, POSTERIOR Procedures Routine Endophthalmitis purulent, right Ordered: 02/13/2023 Scheduled Procedures Name Priority Associated Diagnoses Date/Ti me COLONOSCOPY FLEXIBLE PROXIMAL DIAGNOSTIC Colon cancer screening 05/16/2023 10:15 AM EST Health Maintenance Due Date Last Done Comments DTaP,Tdap,and Td Vaccines (2 - Td or Tdap) 11/02/2017 11/03/2007 CKD PHOS USE SMARTSET 15128 04/19/202204/01, 11/27/2019, 11/21/2018, Additional history exists Depression Screening 07/17/2022 07/17/2021 COVID-19 Vaccine (7 - 2023-24 season) 2022 02/05/2022, 08/02/2021, 02/28/2021, Additional history exists Influenza Vaccine (FLU shot) (#1) 2022 01/30/2022, 12/28/2020, 12/31/2019, Additional history exists HbA1c 03/21/2023 03/21/2022, 04/01, 10/06/2020, Additional history exists GFR 08/13/2023 02/12/2023, 03/02, 03/21/2022, Additional history exists Albumin/Creatinine Ratio 02/13/2024 023, 03/21/2022, 04/19/2021, Additional history exists CKD HGB USE SMARTSET 95273 02/13/202402/12, 02/12/2023, 04/24/2022, Additional history exists TSH 02/13/2024 02/12/2023, 05/03, 03/21/2022, Additional history exists DXA Scan 07/18/2024 07/18/2022, 12/01, 05/09/2017, Additional history exists Hepatitis B Completed 03/18/2009, 05/30, 05/12/2008 Pneumococcal Vaccine: 65+ Years Completed 03/28/2015, 03/20/2010, 11/15/2004 COLONOSCOPY-EVERY 5 YRS AGES 18-100 Discontinued 02/27/2017, 02/27/2017, 10/17/2004 Zoster Vaccines Completed 06/12/2021, 02/01, 11/04/2012 VITAMIN D LEVEL ONCE IN A LIFETIME-USE SMARTSET# 50869 Completed 11/06/2021, 12/28/2019, 06/24/2017, Additional history exists GARDASIL-HPV IMMUNIZATION SERIES Aged Out No longer eligible based on patient's age to complete this topic MENINGOCOCCAL (MENACTRA/MENVEO) Aged Out No longer eligible based on patient's age to complete this topic documented as of this encounter Medical Devices Implanted Type Area Applications Engineering Manager Device Identifier Shelf Expiration Date Model / Serial / Lot Lens Intraoc 21.5 - [id number] - [id number] Implanted:Qty: 1 on 05/12/2019 by Yury Brady MD at OR [facility] Right: Eye [employer] 12/30/2023 [id number] / [id number] / [id number] Lens Intraoc 22.5 - [id number] - [id number] Implanted:Qty: 1 on 04/05/2020 by Yury Brady MD at OR [facility] Left: Eye [employer] 09/28/2024 [id number] / [id number] / [id number] documented as of this encounter Visit Diagnoses Diagnosis 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- Primary Endophthalmitis purulent, right Colon cancer screening Special screening for malignant neoplasms, colon documented in this encounter Administered Medications Active Administered Medications - up to 3 most recent administrations Medication Order MAR Action Action Date Dose Rate Site Aflibercept (Eylea) intraviteal prefilled syringe 2 mg 2 mg, Intravitreal, PRN Other, Starting on Sat09/19/22 at 1440, Until Karime 09/19/23 at 1439, For 365 days Given 02/13/2023 12:35 PM EST 2 mg Eye Right Given 11/13/2022 3:25 PM EDT 2 mg Ey e Right Given 09/19/2022 2:41 PM EDT 2 mg Ey e Right ROPivacaine (Naropin) inj 1.5 mg 1.5 mg, Injection, PRN Other, Starting on Sat09/19/22 at 1440, Until Karime 09/19/23 at 1439, For 365 days Given 02/13/2023 12:35 PM EST 1.5 mg Eye Right Given 11/13/2022 3:25 PM EDT 1.5 mg Ey e Right Given 09/19/2022 2:41 PM EDT 1.5 mg Ey e Right documented in this encounter Advance Directives Documents on File Type Date Recorded Patient Systems Planner Expl anation Advance Directives and Living Will [...] Agen t (per Health Care Power of Accounts Payable Assistant document) Guille Urban Adult Child Health Care Agen t (per Health Care Power of Accounts Payable Assistant document) Care Teams Property Coordinator Relationship Specialty Start Date End Date Rafa Bergman MD [address] [place] [address] [place] [address] PCP - General Family Medicine 04/19/21 documented as of this encounter
--- OUTSIDE RECORDS SUMMARY | 2023-02-24 09:17 | External Medical Summary | Summary of Care ---
Author Name Unknown Organization [facility] Address [address] [place] [facility] [place] [address] Phone [phone] Care Team Providers Care Heel Sorter Name Role Phone Rafa Bergman MD Primary Care Provide r Reason for Visit * Reason Onset Date Comments Test Results 02/13/2023 Encounter Details Date Type Department Care Team (Late st Contact Info) Description 02/13/2023 Telephone Family Medicine [address] [place] [phone] Rafa Bergman MD [address] [place] [address] [place] [address] Test Results Allergies Active [...] 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 History of PR (myocardial infarction) 11/27/2022 History of pulmonary embolism [...] S/P angioplasty with stent 11/27/2018 Atherosclerosis of [place] co ronary artery of [place] heart without angina pectoris 07/08/2018 Arthritis of [...] Resolved Date Atherosclerosis of coronary artery of [place] heart without angina pectoris 09/10/2022 10/31/2022 Hypothyroidism [...] filter 02/28/2015 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 Thank you * Telephone Encounter - Lisa Mccormack RPh - 02/13/2023 8:15 AM EST [facility] Date Value Ref Range Status 02/12/2023 243 [...] to advise of new supplement. Thanks, Lisa Mccormack, PharmD Clinical Pharmacist [facility] [phone] 02/13/2023, 8:15 AM documented in this encounter Plan of Treatment Upcoming Encounters Date Type Department Care Team (Latest Contact Info) Description 02/26/2023 8:00 AM EST Office Visit Cardiology, [facility] [address] [facility] [place] [address] Shira Lu CRNP [address] [place] [address] [place] [phone] 03/06/2023 10:40 AM EST Office Visit Family Medicine [address] [phone] Rafa Bergman MD [address] [place] [address] [place] [address] 03/12/2023 11:00 AM EST Nurse Only Ancillary [address] [place] [address] [place], Nurse [address] [place] [address] 04/30/2023 10:15 AM EST Office Visit Dermatology [facility] [place] [address] [place] [address] Guy Trivedi MD [address] [place] [address] 05/16/2023 10:15 AM EST Hospital Encounter ENDO [facility], Endoscopy Room [facility] [address] [place] [phone] Nahun Hong MD [address] [place] [address] 05/16/2023 10:15 AM EST - 05/16/2023 10:45 AM EST Surgery ENDO [facility], Endoscopy Room [facility] [address] [place] [phone] Nahun Hong MD [address] [place] [address] COLONOSCOPY FLEXIBLE PROXIMAL DIAGNOSTIC 05/28/2023 9:00 AM EST Cardiac Studies Cardiology [address] [place] [address] [facility] [address] [place] [address] 07/05/2023 8:40 AM EDT Office Visit Rheumatology [address] [place] [phone] Deangelo Holley MD [address] [place] [address] [place] [address] Scheduled Procedures Name Priority Associated Diagnoses Date/Ti me COLONOSCOPY FLEXIBLE PROXIMAL DIAGNOSTIC Colon cancer screening 05/16/2023 10:15 AM EST Health Maintenance Due Date Last Done Comments DTaP,Tdap,and Td Vaccines (2 - Td or Tdap) 11/02/2017 11/03/2007 CKD PHOS USE SMARTSET 71782 04/19/202204/01, 11/27/2019, 11/21/2018, Additional history exists Depression Screening 07/17/2022 07/17/2021 COVID-19 Vaccine ( season) 2022 02/05/2022, 08/02/2021, 02/28/2021, Additional history exists Influenza Vaccine (FLU shot) (#1) 2022 01/30/2022, 12/28/2020, 12/31/2019, Additional history exists HbA1c 03/21/2023 03/21/2022, 04/01, 10/06/2020, Additional history exists GFR 08/13/2023 02/12/2023, 03/02, 03/21/2022, Additional history exists Albumin/Creatinine Ratio 02/13/2024 023, 03/21/2022, 04/19/2021, Additional history exists CKD HGB USE SMARTSET 03654 02/13/202402/12, 02/12/2023, 04/24/2022, Additional history exists TSH 02/13/2024 02/12/2023, 05/03, 03/21/2022, Additional history exists DXA Scan 07/18/2024 07/18/2022, 12/01, 05/09/2017, Additional history exists Hepatitis B Completed 03/18/2009, 05/30, 05/12/2008 Pneumococcal Vaccine: 65+ Years Completed 03/28/2015, 03/20/2010, 11/15/2004 COLONOSCOPY-EVERY 5 YRS AGES 18-100 Discontinued 02/27/2017, 02/27/2017, 10/17/2004 Zoster Vaccines Completed 06/12/2021, 02/01, 11/04/2012 VITAMIN D LEVEL ONCE IN A LIFETIME-USE SMARTSET# 08320 Completed 11/06/2021, 12/28/2019, 06/24/2017, Additional history exists GARDASIL-HPV IMMUNIZATION SERIES Aged Out No longer eligible based on patient's age to complete this topic MENINGOCOCCAL (MENACTRA/MENVEO) Aged Out No longer eligible based on patient's age to complete this topic documented as of this encounter Medical Devices Implanted Type Area Senior System Operator Device Identifier Shelf Expiration Date Model / Serial / Lot Lens Intraoc 21.5 - [id number] - [id number] Implanted:Qty: 1 on 05/12/2019 by Yury Brady MD at OR [facility] Right: Eye [employer] 12/30/2023 [id number] / [id number] / [id number] Lens Intraoc 22.5 - [id number] - [id number] Implanted:Qty: 1 on 04/05/2020 by Yury Brady MD at OR [facility] Left: Eye [employer]OM[employer] 09/28/2024 [id number] / [id number] / [id number] documented as of this encounter Advance Directives Documents on File Type Date Recorded Patient Cooper Helper Expl anation Advance Directives and Living [...] Agen t (per Health Care Power of Disability Counselor document) Guille Urban Adult Child Health Care Agen t (per Health Care Power of Disability Counselor document) Care Teams Heel Sorter Relationship Specialty Start Date End Date Rafa Bergman MD [address] [place] [address] [place] [address] PCP - General Family Medicine 04/19/21 documented as of this encounter
--- OUTSIDE RECORDS SUMMARY | 2023-02-24 09:17 | External Medical Summary ---
Author Name Unknown Address Unknown Organization K01:[facility]ORY [facility] [place] - [address] [place] [address] Laboratory Report Ordering Provider Test Date Status GAVIN FLORES 02/12/2023 08:31:05 Marion l Observation Date Value Abnormality Reference (Units ) Status SYNC LEUKOCYTES IN BLOOD BY AUTOMATED COUNT 02/12/2023 08:31:05 10.01 4.00-10.80 (K/uL) Final Segs 02/12/2023 08:31:05 64.8 40.0-75.0 (%) Final Lymphs % 02/12/2023 08:31:05 18.8 18.0-42.0 (%) Final Monos 02/12/2023 08:31:05 11.3 Above high normal 1.0-11.0 (%) Final Eosinophils 02/12/2023 08:31:05 0.8 0.0-6.0 (%) Final Basos 02/12/2023 08:31:05 0.7 0.0-2.0 (%) Final Immature Granulocyte, Percent 02/12/2023 08:31:05 3.6 Above high normal 0.0-2.0 (%) Final Absolute Segs 02/12/2023 08:31:05 6.49 1.80-7.70 (K/uL) Final Lymphs, absolute 02/12/2023 08:31:05 1.88 1.00-4.80 (K/ul) Final Monos, Abs 02/12/2023 08:31:05 1.13 Above high normal 0.00-1.10 (K/uL) Final Eos, Abs 02/12/2023 08:31:05 0.08 0.00-0.70 (K/uL) Final Basos, Abs 02/12/2023 08:31:05 0.07 0.00-0.20 (K/uL) Final Immature Granulocytes, Number 02/12/2023 08:31:05 0.36 Above high normal 0.00-0.20 (K/uL) Final Performing Location LABOR[facility]ORY [facility] - [address] [place] [address]
--- OUTSIDE RECORDS SUMMARY | 2023-02-24 09:17 | External Medical Summary ---
Author Name Unknown Address Unknown Organization K01:LABORATORY [facility] [place] - [address] [address] [place] [address] Laboratory Report Ordering Provider Test Date Status GAVIN FLORES 02/12/2023 08:31:05 Marion l Observation Date Value Abnormality Reference (Units ) Status WBC, Total 02/12/2023 08:31:05 10.01 4.00-10.80 (K/uL) Final RBC 02/12/2023 08:31:05 3.99 3.85-5.15 (M/uL) Final Hemoglobin 02/12/2023 08:31:05 13.5 12.0-15.3 (g/dL) Final HCT 02/12/2023 08:31:05 44.3 36.0-45.2 (%) Final MCV 02/12/2023 08:31:05 111.0 81.5-97.5 (fL) Final MCH 02/12/2023 08:31:05 33.8 27.0-34.0 (pg) Final MCHC 02/12/2023 08:31:05 30.5 32.0-36.0 (g/dL) Final RDW 02/12/2023 08:31:05 16.6 11.5-15.5 (%) Final Platelets 02/12/2023 08:31:05 287 140-400 (K/uL) Final MPV 02/12/2023 08:31:05 10.9 6.6-11.1 (fL) Final Nucleated erythrocytes/100 leukocytes [Ratio] in Blood by Automated count 02/12/2023 08:31:05 0 <=0 (/100 WBCs) Final Performing Location LABORATORY [facility] [place] - [address] [place] [address]
--- OUTSIDE RECORDS SUMMARY | 2023-02-24 09:17 | External Medical Summary ---
Author Name Unknown Address Unknown Organization K01:LABORATORY [facility] [place] - [address] [place] [address] Laboratory Report Ordering Provider Test Date Status SHANNAN,DURA 02/12/2023 08:31:05 Final Normal: <30 mg/g creatinine< br/>High: 30-300 mg/g creatinine
Very High: >300 mg/g creatinine
Nephrotic: >2200 mg/g creatinine Observation Date Value Abnormality Reference (Units ) Status Albumin, Urine 02/12/2023 08:31:05 2.62 (mg/dL) Final Creatinine, Urine 02/12/2023 08:31:05 174 (mg/dL) Final Albumin/Creatinine [Mass Ratio] in Urine 02/12/2023 08:31:05 15 <30 (mg/g Creat) Final Performing Location LAB[facility]ORY [facility] [place] - [address] [place] [address]
--- OUTSIDE RECORDS SUMMARY | 2023-02-24 09:17 | External Medical Summary ---
Author Name Unknown Address Unknown Organization K01:[facility] [place] [address] [place] [address] Laboratory Report Ordering Provider Test Date Status ZULEYKAGAVIN BURDEN 02/12/2023 08:31:05 Marion l Observation Date Value Abnormality Reference (Units ) Status Borrelia burgdorferi IgG and IgM [Interpretation] in Serum by Immunoassay 02/12/2023 08:31:05 Negative Negative Final Performing Location [facility] - [address] [place] [address]
--- OUTSIDE RECORDS SUMMARY | 2023-02-24 09:18 | External Medical Summary | Summary of Care ---
Author Name Unknown Organization [facility] Address [address] [facility] [place] [address] Phone [phone] Care Team Providers Care Marketing Account Manager Name Role Phone Rafa Bergman MD Primary Care Provide r Reason for Visit * Reason Onset Date Comments Medication Refill 02/04/2023 Encounter Details Date Type Department Care Team (Late st Contact Info) Description 02/04/2023 Refill Rheumatology [address] [place] [phone] Peter Le MD [address] [facility] [place] [address] Allergies Active Allergy Reactions Criticality Noted Date Comments Colchicine Diarrhea 06/16/2018 Daptomycin 01/05/2015 Shortness of breath Imipenem Edema airway High 01/05/2015 Metoprolol Low 01/23/2021 Other reaction(s): fatigue Zoledronic Acid 04/24/2012 Myalgias, fever, chills, vomiting x 2 days Sulfa Antibiotics 12/22/2002 Bactrim--itchy all over, eyes swollen documented as of this encounter (statuses as of 02/07/2023) Medications Medication Sig Dispensed Refills Start Date [...] 03/16/2022 Active Levothyroxine Sodium 137 MCG Oral TabletIndications [...] 08/01/2022 Active Famotidine 20 MG Oral Tablet (Pepcid)Indicatio [...] for Nausea. 30 Tablet 0 10/04/2022 Active Saccharomyces boulardii 250 MG Oral Packet Take 250 mg by mouth daily. 0 09/28/2022 Active dilTIAZem HCl ER 360 MG Oral Tablet Extended Release 24 Hour TAKE ONE TABLET BY MOUTH EVERY DAY 90 Tablet 3 10/31/2022 Active Moxifloxacin HCl 0.5 % Ophthalmic Solution (Vigamox) Instill 1 Drop into the right eye 6 times a day. 3 mL 1 11/19/2022 Active prednisoLONE Acetate 1 % Ophthalmic Suspension (Pred Forte) Instill 1 Drop into the right eye 6 times a day. 15 mL 1 11/19/2022 Active Additional Information Patient taking differently:1 Drop Right eyeQID(AM/NOON/PM/HS), Reported on 2023 Metamucil 28.3 % Oral Powder (Psyllium) Take by mouth at bedtime as needed. Per directions on label. 0 Active predniSONE 5 MG Oral Tablet (Deltasone) TAKE ONE TABLET BY MOUTH EVERY DAY 30 Tablet 6 12/31/2022 Active Ofloxacin 0.3 % Ophthalmic Solution (Ocuflox) Instill 1 Drop into the right eye in the morning and 1 Drop at noon and 1 Drop in the evening and 1 Drop before bedtime. Begin 2 days prior to scheduled surgery.. 5 mL 0 01/03/2023 Active Dicyclomine HCl 10 MG Oral Capsule [...] 01/08/2023 Active Atenolol 25 MG Oral Tablet (Tenormin)Indicat ions:HTN, goal below 140/90 TAKE 1/2 TABLET BY MOUTH EVERY DAY 45 Tablet 3 01/14/2023 Active Nystatin 999088 UNIT/ML Mouth/Throat SuspensionIndicat ions:Thrush Swish and swallow 5 mL in the morning and 5 mL at noon and 5 mL in the evening and 5 mL before bedtime. For thrush.. 240 mL 1 01/21/2023 3 Active Pantoprazole Sodium 40 MG Oral Tablet Delayed Release (Protonix) TAKE ONE TABLET BY MOUTH IN THE MORNING 90 Tablet 1 01/27/2023 Active Allopurinol 300 MG Oral Tablet (Zyloprim) Take 1 and 1/2 tablets by mouth daily 135 Tablet 1 02/07/2023 Active Allopurinol 300 MG Oral Tablet (Zyloprim) take 1 and 1/2 tablets daily 135 Tablet 1 08/11/2022 3 Discontinue d(Refill) Hospital, Clinic, or Other Facility Administered Medication [...] as of this encounter (statuses as of 02/07/2023) Active Problems Problem Noted Date Diagnosed Date [...] S/P angioplasty with stent 11/27/2018 Atherosclerosis of [place] co ronary artery of [place] heart without angina pectoris 07/08/2018 Arthritis of [...] as of this encounter (statuses as of 02/07/2023) Resolved Problems Problem Noted Date Diagnosed Date Resolved Date Atherosclerosis of coronary artery of [place] heart without angina pectoris 09/10/2022 10/31/2022 Hypothyroidism [...] filter 02/28/2015 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 11/2018 CKD (chronic kidney disease) stage 2, GFR 60-89 ml/min 03/12/2019 documented as of this encounter (statuses as of 02/07/2023) Immunizations Name Administration Dates Next Due COVID-19 [...] encounter Miscellaneous Notes * Telephone Encounter - Sunil Boogie RPh - 02/07/2023 12:31 PM ESTSigned Prescriptions: Disp Refills Allopurinol 300 MG Oral Tablet (Zyloprim) 135 Ta*1 Sig: Take 1 and 1/2 tablets by mouth dailyAuthorizing Provider: PETER LE User: SUNIL BOOGIE- * Telephone Encounter - Sunil Boogie RPh - 02/07/2023 12:23 PM EST Rheumatology: Refill Request(s) Per review of the refill parameters, Medication was refilled Labs reviewed in Care Everywhere Sunil Boogie RPh [facility] Clinical Pharmacist Rheumatology Department 02/07/2023,12:23 PM * Telephone Encounter - Naya Brown LPN - 02/04/2023 3:59 PM EST Pending Prescriptions: Disp Refills Allopurinol 300 MG Oral Tablet (Zyloprim) 135 Ta*1 Sig: Take 1 Tablet by mouth in the morning. Take 300 mg in the AM, and 1/2 tab (150 mg) in the PM.. Last Visit: 11/06/2017 (in office), Visit date not found (telemedicine) Next Visit: Visit date not found Patient Active Problem List Diagnosis Code Senile [...] Arthritis of left ankle M19.072 Atherosclerosis of [place] coronary artery of [place] heart without angina pectoris I25.10 S/P angioplasty with stent Z95.820 Hypertensive kidney disease with stage 3a chronic kidney disease I12.9, N18.31 History of basal cell carcinoma Z85.828 Chronic kidney disease, stage 3a (HCC) N18.31 Prediabetes R73.03 Gastro-esophageal reflux disease with esophagitis, without bleeding K21.00 Tachy-chintan syndrome (HCC) I49.5 Medical home patient encounter Z00.8 Other pulmonary embolism with acute cor pulmonale (HCC) I26.09 S/P placement of cardiac pacemaker Z95.0 History of AR (myocardial infarction) I25.2 History of pulmonary embolism Z86.711 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 documented in this encounter Plan of Treatment Upcoming Encounters Date Type Department Care Team (Late st Contact Info) Description 02/07/2023 2:00 PM EST Office Visit Ophthalmology, [facility] [address] [place] [address] Brian Gagnon DO [address] [place] [address] Nurse Екатерина Ophthalmology [address] [place] [address] 02/12/2023 11:30 AM EST Cardiac Studies Cardiology [address] [place] [address] [facility] [address] [facility] [place] [address] 02/12/2023 4:15 PM EST Imaging Radiology [address] [place] [address] 02/13/2023 10:30 AM EST Office Visit Ophthalmology, [address] [place] [address] Pedro Tinsley, DO 132 [facility] [place] [address] 02/26/2023 8:00 AM EST Office Visit Cardiology, [address] [place] [address] Shira Lu CRNP [address] [place], [place] [address] [phone] 03/06/2023 10:40 AM EST Office Visit Family Medicine [address] [place] [phone] Rafa Bergman MD [address] [place] [address] [place] [address] 03/12/2023 11:00 AM EST Nurse Only Ancillary [address] [place] [address] Nurse Ozzie [address] [place] [address] 04/30/2023 10:15 AM EST Office Visit Dermatology [facility] [place] [address] [place] [address] Guy Trivedi MD [address] [place] [address] 05/16/2023 10:15 AM EST Hospital Encounter ENDO [facility], Endoscopy Room [facility] [address] [place] [phone] Nahun Hong MD [address] [place] [address] 05/16/2023 10:15 AM EST - 05/16/2023 10:45 AM EST Surgery ENDO [facility], Endoscopy Room [facility] [address] [place] [phone] Nahun Hong MD [address] [place] [address] COLONOSCOPY FLEXIBLE PROXIMAL DIAGNOSTIC 07/05/2023 8:40 AM EDT Office Visit Rheumatology [address] [place] [phone] Peter Le MD [facility] [address] [place], [place] [address] Scheduled Procedures Name Priority Associated Diagnoses Date/Ti me COLONOSCOPY FLEXIBLE PROXIMAL DIAGNOSTIC Colon cancer screening 05/16/2023 10:15 AM EST Health Maintenance Due Date Last Done Comments DTaP,Tdap,and Td Vaccines (2 - Td or Tdap) 11/02/2017 11/03/2007 CKD PHOS USE SMARTSET 84110 04/19/202204/01, 11/27/2019, 11/21/2018, Additional history exists Depression Screening 07/17/2022 07/17/2021 GFR 09/25/2022 03/27/2022, 03/02, 10/18/2021, Additional history exists COVID-19 Vaccine ( season) 2022 02/05/2022, 08/02/2021, 02/28/2021, Additional history exists Influenza Vaccine (FLU shot) (#1) 2022 01/30/2022, 12/28/2020, 12/31/2019, Additional history exists Albumin/Creatinine Ratio 03/21/2023 022, 04/19/2021, 12/31/2017, Additional history exists HbA1c 03/21/2023 03/21/2022, 04/01, 10/06/2020, Additional history exists CKD HGB USE SMARTSET 06477 04/24/202304/24, 04/24/2022, 03/27/2022, Additional history exists TSH 05/22/2023 05/22/2022, 03/02, 04/19/2021, Additional history exists DXA Scan 07/18/2024 07/18/2022, 12/01, 05/09/2017, Additional history exists Hepatitis B Completed 03/18/2009, 05/30, 05/12/2008 Pneumococcal Vaccine: 65+ Years Completed 03/28/2015, 03/20/2010, 11/15/2004 COLONOSCOPY-EVERY 5 YRS AGES 18-100 Discontinued 02/27/2017, 02/27/2017, 10/17/2004 Zoster Vaccines Completed 06/12/2021, 02/01, 11/04/2012 VITAMIN D LEVEL ONCE IN A LIFETIME-USE SMARTSET# 94508 Completed 11/06/2021, 12/28/2019, 06/24/2017, Additional history exists GARDASIL-HPV IMMUNIZATION SERIES Aged Out No longer eligible based on patient's age to complete this topic MENINGOCOCCAL (MENACTRA/MENVEO) Aged Out No longer eligible based on patient's age to complete this topic documented as of this encounter Medical Devices Implanted Type Area Photo Offset Printer Device Identifier Shelf Expiration Date Model / Serial / Lot Lens Intraoc 21.5 - [id number] - [id number] Implanted:Qty: 1 on 05/12/2019 by Yury Brady MD at OR [facility] Right: Eye [employer] 12/30/2023 [id number] / [id number] / [id number] Lens Intraoc 22.5 - [id number] - [id number] Implanted:Qty: 1 on 04/05/2020 by Yury Brady MD at OR [facility] Left: Eye [employer] 09/28/2024 [id number] / [id number] / [id number] documented as of this encounter Advance Directives Documents on File Type Date Recorded Patient Hearing Dog Trainer Expl anation Advance Directives and Living Will 03/11/2018 Krissy rUban ADVANCE DIR ECTIVE Latest Code Status on [...] Agen t (per Health Care Power of Monitor Technician document) Guille Urban Adult Child Health Care Agen t (per Health Care Power of Monitor Technician document) Care Teams Marketing Account Manager Relationship Specialty Start Date End Date Rafa Bergman MD [address] [place] [address] [place] [phone] PCP - General Family Medicine 04/19/21 documented as of this encounter
--- OUTSIDE RECORDS SUMMARY | 2023-02-24 09:18 | External Medical Summary | Summary of Care ---
Author Name Unknown Organization [facility] Address [address] [place] [address] Phone [phone] Care Team Providers Care Utilities Ground Worker Name Role Phone Rafa Alonso MD Primary Care Provide r Reason for Visit * Reason Comments eRx-Medication Refill Encounter Details Date Type Department Care Team (Late st Contact Info) Description 01/26/2023 Refill Family Medicine [address] [place] [phone] Rafa Alonso MD [address] [place] [address] [place] [address] Encounter for long-term (current) use of medications*; HTN, goal below 140/90 Allergies Active Allergy Reactions Criticality Noted Date Comments Colchicine Diarrhea 06/16/2018 Daptomycin 01/05/2015 Shortness of breath Imipenem Edema airway High 01/05/2015 Metoprolol Low 01/23/2021 Other reaction(s): fatigue Zoledronic Acid 04/24/2012 Myalgias, fever, chills, vomiting x 2 days Sulfa Antibiotics 12/22/2002 Bactrim--itchy all over, eyes swollen documented as of this encounter (statuses as of 01/27/2023) Medications Medication Sig Dispensed Refills Start Date [...] hours as needed for Pain. 0 Active Fexofenadine HCl 60 MG Oral Tablet (JOHN) Take 1 Tablet by mouth in the morning. 0 Active CoQ10 100 MG Oral Capsule [...] loose stool 30 Capsule 3 3 Active Allopurinol 300 MG Oral Tablet (Zyloprim) take 1 and 1/2 tablets daily 135 Tablet 1 3 Active Additional Information Patient taking differently: Oral, Take 300 mg in the AM, and 1/2 tab (150 mg) in the PM., Informant: At Discharge, Reported on 10/09/2022 Famotidine 20 MG Oral Tablet (Pepcid)Indicatio ns:Abdominal [...] for Nausea. 30 Tablet 0 3 Active Saccharomyces boulardii 250 MG Oral Packet Take 250 mg by mouth daily. 0 3 Active dilTIAZem HCl ER 360 MG Oral Tablet Extended Release 24 Hour TAKE ONE TABLET BY MOUTH EVERY DAY 90 Tablet 3 3 Active Moxifloxacin HCl 0.5 % Ophthalmic Solution (Vigamox) Instill 1 Drop into the right eye 6 times a day. 3 mL 1 3 Active prednisoLONE Acetate 1 % Ophthalmic Suspension (Pred Forte) Instill 1 Drop into the right eye 6 times a day. 15 mL 1 3 Active Metamucil 28.3 % Oral Powder (Psyllium) Take by mouth at bedtime as needed. Per directions on label. 0 Active predniSONE 10 MG Oral Tablet (Deltasone)Indica tions:Hip pain, right,Acute pain of right knee Take 5 tabs for 2 days, 4 tabs for 2 days, 3 tabs for 2 days, 2 tabs for 2 days 1 tab for 2 days 30 Tablet 0 3 Active predniSONE 20 MG Oral Tablet (Deltasone) Take 1 Tablet by mouth in the morning. Take 0.5 tablet by mouth in the morning as needed for gout flares.. 90 Tablet 1 3 Active Additional Information Patient taking differently: 5 mgOral Daily(AM), Take 0.5 tablet by mouth in the morning as needed for gout flares., Reported on 01/03/2023 predniSONE 5 MG Oral Tablet (Deltasone) TAKE ONE TABLET BY MOUTH EVERY DAY 30 Tablet 6 3 Active Ofloxacin 0.3 % Ophthalmic Solution (Ocuflox) Instill 1 Drop into the right eye in the morning and 1 Drop at noon and 1 Drop in the evening and 1 Drop before bedtime. Begin 2 days prior to scheduled surgery.. 5 mL 0 3 Active Dicyclomine HCl 10 MG Oral [...] Tablet (Tenormin)Indicat ions:HTN, goal below 140/90 TAKE 2 TABLET BY MOUTH EVERY DAY 45 Tablet 3 3 Active Nystatin 622717 UNIT/ML Mouth/Throat SuspensionIndicat ions:Thrush Swish and swallow 5 mL in the morning and 5 mL at noon and 5 mL in the evening and 5 mL before bedtime. For thrush.. 240 mL 1 3 02/21/20 23 Active Pantoprazole Sodium 40 MG Oral Tablet Delayed Release (Protonix) TAKE ONE TABLET BY MOUTH IN THE MORNING 90 Tablet 1 3 Active Pantoprazole Sodium 40 MG Oral Tablet Delayed Release (Protonix) TAKE 1 TABLET BY MOUTH EVERY MORNING 90 Tablet 1 3 01/28/20 Discontinued Hospital, Clinic, or Other Facility Administered [...] as of this encounter (statuses as of 01/27/2023) Active Problems Problem Noted Date Diagnosed Date Purulent endophthalmitis of right eye 01/03/2023 Nevus of 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 History of [place] (myocardial infarction) 11/27/2022 History of pulmonary embolism [...] S/P angioplasty with stent 11/27/2018 Atherosclerosis of [place] co ronary artery of [place] heart without angina pectoris 07/08/2018 Arthritis of [...] as of this encounter (statuses as of 01/27/2023) Resolved Problems Problem Noted Date Diagnosed Date Resolved Date Atherosclerosis of coronary artery of [place] heart without angina pectoris 09/10/2022 10/31/2022 Hypothyroidism [...] tendon 12/07/2014 05/24/2015 Vitamin D insufficiency 05/12/2014 10/0 06/2016 Chronic sinusitis 10/28/2013 01/02/2017 Urinary frequency 09/15/2013 [...] filter 02/28/2015 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 11/2018 CKD (chronic kidney disease) stage 2, GFR 60-89 ml/min 03/12/2019 documented as of this encounter (statuses as of 01/27/2023) Immunizations Name Administration Dates Next Due COVID-19 [...] Influenza, Split, I IV3, With Preserve, Inj 02/21/2015,12/25/2013,12/31/2012,11/30,01/17/2011,01/20/2010,12/31/19,02/19/2008,02/06/2007,02/05/2006 Seasonal Influenza, [place] t, High Dose, No [...] encounter Miscellaneous Notes * Telephone Encounter - Lisa Dutton RPh - 01/27/2023 8:06 PM EDTSigned Prescriptions: Disp Refills Pantoprazole Sodium 40 MG Oral Tablet Ruthann*90 Tab*1 Sig: TAKE ONE TABLET BY MOUTH IN THE MORNINGAuthorizing Provider: Aziza ALONSO User: SARIKA DUTTON documented in this encounter Plan of Treatment Upcoming Encounters Date Type Department Care Team (Late st Contact Info) Description 01/30/2023 8:00 AM EDT Hospital Encounter OR [facility], Operating Room, [facility] 3rd Floor [address] [facility] [place] [address] Brian Gagnon DO [address] [place] [address] 01/30/2023 8:00 AM EDT - 01/30/2023 9:38 AM EDT Surgery OR [facility], Operating Room, [facility] 3rd Floor [address] [facility] [place] [address] Brian Gagnon DO [address] [place] [address] RIGHT VITRECTOMY MECHANICAL PARS PLANA APPROACH 2023 9:45 AM EDT Office Visit Ophthalmology, [facility] [address] [facility] [address] [place] [address] Brian Gagnon DO [address] [place] [address] Nurse Екатерина Ophthalmology [address] [place] [address] 02/07/2023 2:00 PM EST Office Visit Ophthalmology, [facility] [address] [place] [address] Brian Gagnon DO [address] [place] [address] Екатерина Nurse Ophthalmology [address] [place] [address] 02/12/2023 11:30 AM EST Cardiac Studies Cardiology [address] [place] [address] O[facility] 132 [facility] [place] [address] 02/12/2023 4:00 PM EST Imaging Radiology [facility] 1st [facility] [address] 02/13/2023 10:30 AM EST Office Visit Ophthalmology, [facility] 132 [facility] [place] [address] Pedro Tinsley, 132 [facility] [place] [address] 02/26/2023 8:00 AM EST Office [address]iology, [address] [address] Shira Lu CRNP [address] [place], [place] [address] [phone] 03/06/2023 10:40 AM EST Office Visit Family Medicine [address] [place] [phone] Rafa Alonso MD [address] [place] [address] [place] [address] 04/30/2023 10:15 AM EST Office Visit Dermatology [facility] [place] [address] [place] [address] Guy Trivedi MD [address] [place] [address] 05/16/2023 10:15 AM EST Hospital Encounter ENDO [facility], Endoscopy Room [facility] [address] [phone] Nahun Hong MD [address] [place] [address] 05/16/2023 10:15 AM EST - 05/16/2023 10:45 AM EST Surgery ENDO [facility], Endoscopy Room [facility] [address] [place] [phone] Nahun Hong MD [address] [place] [address] COLONOSCOPY FLEXIBLE PROXIMAL DIAGNOSTIC 07/05/2023 8:40 AM EDT Office Visit Rheumatology [address] [place] [phone] Deangelo Holley MD [address] [place] [address] [place] [address] Scheduled Orders Name Type Priority Associated Diagnoses Orde r Schedule VITAMIN B12 Lab Routine Encounter for long-term (current) use of medications Expected: 02/03/2023 (Approximate), Expires: 01/28/2024 MAGNESIUM Lab Routine Encounter for long-term (current) use of medications Expected: 02/03/2023 (Approximate), Expires: 01/28/2024 ALBUMIN / CREATININE RATIO, URINE Lab Routine Encounter for long-term (current) use of medications HTN, goal below 140/90 Expected: 01/27/2023, Expires: 01/28/2024 Scheduled Procedures Name Priority Associated Diagnoses Date/Ti me VITRECTOMY MECHANICAL PARS PLANA APPROACH Vitreous floaters of right eye 01/30/2023 8:00 AM EDT COLONOSCOPY FLEXIBLE PROXIMAL DIAGNOSTIC Colon cancer screening 05/16/2023 10:15 AM EST Health Maintenance Due Date Last Done Comments DTaP,Tdap,and Td Vaccines (2 - Td or Tdap) 11/02/2017 11/03/2007 CKD PHOS USE SMARTSET 73288 04/19/202204/01, 11/27/2019, 11/21/2018, Additional history exists Depression Screening 07/17/2022 07/17/2021 GFR 09/25/2022 03/27/2022, 03/02, 10/18/2021, Additional history exists COVID-19 Vaccine ( season) 2022 02/05/2022, 08/02/2021, 02/28/2021, Additional history exists Influenza Vaccine (FLU shot) (#1) 2022 01/30/2022, 12/28/2020, 12/31/2019, Additional history exists Albumin/Creatinine Ratio 03/21/2023 022, 04/19/2021, 12/31/2017, Additional history exists HbA1c 03/21/2023 03/21/2022, 04/01, 10/06/2020, Additional history exists CKD HGB USE SMARTSET 18801 04/24/202304/24, 04/24/2022, 03/27/2022, Additional history exists TSH 05/22/2023 05/22/2022, 03/02, 04/19/2021, Additional history exists DXA Scan 07/18/2024 07/18/2022, 12/01, 05/09/2017, Additional history exists Hepatitis B Completed 03/18/2009, 05/30, 05/12/2008 Pneumococcal Vaccine: 65+ Years Completed 03/28/2015, 03/20/2010, 11/15/2004 COLONOSCOPY-EVERY 5 YRS AGES 18-100 Discontinued 02/27/2017, 02/27/2017, 10/17/2004 Zoster Vaccines Completed 06/12/2021, 02/01, 11/04/2012 VITAMIN D LEVEL ONCE IN A LIFETIME-USE SMARTSET# [id number] Completed 11/06/2021, 12/28/2019, 06/24/2017, Additional history exists GARDASIL-HPV IMMUNIZATION SERIES Aged Out No longer eligible based on patient's age to complete this topic MENINGOCOCCAL (MENACTRA/MENVEO) Aged Out No longer eligible based on patient's age to complete this topic documented as of this encounter Medical Devices Implanted Type Area Manager Rn Case Device Identifier Shelf Expiration Date Model / Serial / Lot Lens Intraoc 21.5 - [id number] - [id number] Implanted:Qty: 1 on 05/12/2019 by Yury Brady MD at OR [facility] Right: Eye [employer] 12/30/2023 [id number] / [id number] / [id number] Lens Intraoc 22.5 - [id number] - [id number] Implanted:Qty: 1 on 04/05/2020 by Yury Brady MD at OR [facility] Left: Eye [employer] 09/28/2024 [id number] / [id number] / [id number] documented as of this encounter Visit Diagnoses Diagnosis Encounter for long-term (current) use of medications- Primary Encounter for long-term (current) use of other medications HTN, goal below 140/90 Unspecified essential hypertension Vitreous floaters of right eye Colon cancer screening Special screening for malignant neoplasms, colon documented in this encounter Advance Directives Documents on File Type Date Recorded Patient Switch Operator Expl anation Advance Directives and Living Will 03/11/2018 Krissy Urban ADVANCE DIR ECTIVE Healthcare Agents on File Name Relationship Healthcare Agent Relationship Communication Krissy Ordonez Adult Child Health Care Agen t (per Health Care Power of Tool Maker Bench document) Guille Urban Adult Child Health Care Agen t (per Health Care Power of Tool Maker Bench document) Care Teams Utilities Ground Worker Relationship Specialty Start Date End Date Rafa Alonso MD [address] [place] [address] [place] [address] PCP - General Family Medicine 04/19/21 documented as of this encounter
--- OUTSIDE RECORDS SUMMARY | 2023-02-24 09:18 | External Medical Summary | Summary of Care ---
Author Name Unknown Organization [facility] [address] [facility] [address] Phone [phone] Care Team Providers Care Polls Or Surveys Interviewer Name Role Phone Rafa Bergman MD Primary Care Provide r Encounter Details Date Type Department Care Team (Late st Contact Info) Description 01/22/2023 Orders Only Family Medicine [address] [place] [phone] Rafa Bergman MD [address] [place] [address] [place] [address] Allergies Active Allergy Reactions Criticality Noted Date Comments Colchicine Diarrhea 06/16/2018 Daptomycin 01/05/2015 Shortness of breath Imipenem Edema airway High 01/05/2015 Metoprolol Low 01/23/2021 Other reaction(s): fatigue Zoledronic Acid 04/24/2012 Myalgias, fever, chills, vomiting x 2 days Sulfa Antibiotics 12/22/2002 Bactrim--itchy all over, eyes swollen documented as of this encounter (statuses as of 01/22/2023) Medications Medication Sig Dispensed Refills Start Date [...] 03/16/2022 Active Levothyroxine Sodium 137 MCG Oral TabletIndications: Hypothyroidism (acquired) Take 1 Tablet by mouth daily first thing in the morning. (at least 30 min prior to breakfast or other meds) 90 Tablet 3 03/19/2022 Active Rosuvastatin Calcium 5 MG Oral Tablet (Crestor)Indicatio ns:Dyslipidemia, goal LDL below 70 TAKE 1 TABLET BY MOUTH EVERY MORNING 30 Tablet 11 05/15/2022 Active Loperamide HCl 2 MG Oral Capsule (Imodium)Indicatio ns:Diarrhea, unspecified type take 1 capsule 4 times daily as needed for loose stool 30 Capsule 3 08/01/2022 Active Pantoprazole Sodium 40 MG Oral Tablet Delayed Release (Protonix) TAKE 1 TABLET BY MOUTH EVERY MORNING 90 Tablet 1 08/06/2022 Active Additional Information Patient taking differently: 40 mg BID (.AM/PM), Informant: At Discharge, Reported on 10/09/2022 Allopurinol 300 MG Oral Tablet (Zyloprim) take 1 and 1/2 tablets daily 135 Tablet 1 08/11/2022 Active Additional Information Patient taking differently: Oral, Take 300 mg in the AM, and 1/2 tab (150 mg) in the PM., Informant: At Discharge, Reported on 10/09/2022 Famotidine 20 MG Oral Tablet (Pepcid)Indication s:Abdominal pain, epigastric,Nausea take 1 tablet in the [...] a day. 15 mL 1 11/19/2022 Active Metamucil 28.3 % Oral Powder (Psyllium) Take by mouth at bedtime as needed. Per directions on label. 0 Active predniSONE 10 MG Oral Tablet (Deltasone)Indicat ions:Hip pain, right,Acute pain of right knee Take 5 tabs for 2 days, 4 tabs for 2 days, 3 tabs for 2 days, 2 tabs for 2 days 1 tab for 2 days 30 Tablet 0 12/19/2022 Active predniSONE 20 MG Oral Tablet (Deltasone) Take 1 Tablet by mouth in the morning. Take 0.5 tablet by mouth in the morning as needed for gout flares.. 90 Tablet 1 12/24/2022 Active Additional Information Patient taking differently: 5 [...] Active Dicyclomine HCl 10 MG Oral Capsule (Bentyl)Indication s:Diarrhea, unspecified type,Irritable bowel syndrome with both constipation and diarrhea take 1 capsule as needed in the morning, 1 capsules as needed at noon, 1 capsule as needed in the evening and 1 capsule as needed before bedtime for pain or gas. take for abdominal pain. 120 Capsule 0 01/08/2023 Active Atenolol 25 MG Oral Tablet (Tenormin)Indicati ons:HTN, goal below 140/90 TAKE 1/2 TABLET BY MOUTH EVERY DAY 45 Tablet 3 01/14/2023 Active levoFLOXacin 500 MG Oral TabletIndications: Recurrent sinus infections Take 1 Tablet by mouth in the morning for 10 days. until gone.. 10 Tablet 0 01/15/2023 01/25/2023 Active predniSONE 20 MG Oral Tablet (Deltasone)Indicat ions:Chronic maxillary sinusitis Take 2 Tablets by mouth in the morning for 5 days. 10 Tablet 0 01/21/2023 01/26/2023 Active Nystatin 793200 UNIT/ML Mouth/Throat SuspensionIndicati ons:Thrush Swish and swallow 5 mL in the morning and 5 mL at noon and 5 mL in the evening and 5 mL before bedtime. For thrush.. 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 11/2018 CKD (chronic kidney disease) stage 2, GFR 60-89 ml/min 03/12/2019 documented as of this encounter (statuses as of 01/22/2023) Immunizations Name Administration Dates Next Due COVID-19 [...] EDT Hospital Encounter OR [facility], Operating Room, [facility] 3rd Floor [address] [place] [address] Brian Gagnon, DO [address] [place] [address] 01/30/2023 8:00 AM EDT - 01/30/2023 9:38 AM EDT Surgery OR [facility], Operating Room, [facility] 3rd Floor [address] [facility] [place] [address] Brian Gagnon, DO [address] [place] [address] RIGHT VITRECTOMY MECHANICAL PARS PLANA APPROACH 2023 9:45 AM EDT Office Visit Ophthalmology, [facility] [place] [facility] [address] [place] [address] Brian Gagnon, DO [address] [place] [address] Nurse Екатерина Ophthalmology [address] [place] [address] 02/07/2023 2:00 PM EST Office Visit Ophthalmology, [facility] [place] [facility] [address] [place] [address] Brian Gagnon, DO [address] [place] [address] Nurse Екатерина Ophthalmology [address] [place] [address] 02/12/2023 11:30 AM EST Cardiac Studies Cardiology [address] [place] [address] Cadence Horne [facility] [address] [place] [address] 02/12/2023 4:00 PM EST Imaging Radiology [facility] 1st [facility] [place] [address] [place] [address] 02/13/2023 10:30 AM EST Office Visit Ophthalmology, [facility] [address] [place] [address] Pedro Tinsley DO [address] [place] [address] 02/26/2023 8:00 AM EST Office Visit Cardiology, [facility] [address] [facility] [place] [address] Shira Lu CRNP [address] [facility] [place] [phone] 03/06/2023 10:40 AM EST Office Visit Family [address] [phone] Rafa Bergman MD [address] [place] [address] [place] [address] 04/30/2023 10:15 AM EST Office Visit Dermatology [facility] [address] [place] [address] Guy Trivedi MD [address] [place] [address] 05/16/2023 10:15 AM EST Hospital Encounter ENDO [facility], Endoscopy Room [facility] [address] [place] [phone] Nahun Hong MD [address] [place] [address] 05/16/2023 10:15 AM EST - 05/16/2023 10:45 AM EST Surgery ENDO [facility], Endoscopy Room [facility] [address] [place] [phone] Nahun Hong MD [address] [place] [address] COLONOSCOPY FLEXIBLE PROXIMAL DIAGNOSTIC 07/05/2023 8:40 AM EDT Office Visit Rheumatology [address] [place] [phone] Deangelo Holley MD [address] [place] [address] Scheduled Procedures Name Priority Associated Diagnoses Date/Ti me VITRECTOMY MECHANICAL PARS PLANA APPROACH Vitreous floaters of right eye 01/30/2023 8:00 AM EDT COLONOSCOPY FLEXIBLE PROXIMAL DIAGNOSTIC Colon cancer screening 05/16/2023 10:15 AM EST Health Maintenance Due Date Last Done Comments DTaP,Tdap,and Td Vaccines (2 - Td or Tdap) 11/02/2017 11/03/2007 CKD PHOS USE SMARTSET 75344 04/19/202204/01, 11/27/2019, 11/21/2018, Additional history exists Depression Screening 07/17/2022 07/17/2021 GFR 09/25/2022 03/27/2022, 03/02, 10/18/2021, Additional history exists COVID-19 Vaccine ( season) 2022 02/05/2022, 08/02/2021, 02/28/2021, Additional history exists Influenza Vaccine (FLU shot) (#1) 2022 01/30/2022, 12/28/2020, 12/31/2019, Additional history exists Albumin/Creatinine Ratio 03/21/2023 022, 04/19/2021, 12/31/2017, Additional history exists HbA1c 03/21/2023 03/21/2022, 04/01, 10/06/2020, Additional history exists CKD HGB USE SMARTSET 73172 04/24/202304/24, 04/24/2022, 03/27/2022, Additional history exists TSH 05/22/2023 05/22/2022, 03/02, 04/19/2021, Additional history exists DXA Scan 07/18/2024 07/18/2022, 12/01, 05/09/2017, Additional history exists Hepatitis B Completed 03/18/2009, 05/30, 05/12/2008 Pneumococcal Vaccine: 65+ Years Completed 03/28/2015, 03/20/2010, 11/15/2004 COLONOSCOPY-EVERY 5 YRS AGES 18-100 Discontinued 02/27/2017, 02/27/2017, 10/17/2004 Zoster Vaccines Completed 06/12/2021, 02/01, 11/04/2012 VITAMIN D LEVEL ONCE IN A LIFETIME-USE SMARTSET# [id number] Completed 11/06/2021, 12/28/2019, 06/24/2017, Additional history exists GARDASIL-HPV IMMUNIZATION SERIES Aged Out No longer eligible based on patient's age to complete this topic MENINGOCOCCAL (MENACTRA/MENVEO) Aged Out No longer eligible based on patient's age to complete this topic documented as of this encounter Medical Devices Implanted Type Area Appeals Coordinator Device Identifier Shelf Expiration Date Model / Serial / Lot Lens Intraoc 21.5 - [id number] - [id number] Implanted:Qty: 1 on 05/12/2019 by Yury Brady MD at OR [facility] Right: Eye [employer] 12/30/2023 [id number] / [id number] / [id number] Lens Intraoc 22.5 - [id number] - [id number] Implanted:Qty: 1 on 04/05/2020 by Yury Brady MD at OR [facility] Left: Eye [employer] 09/28/2024 [id number] / [id number] / [id number] documented as of this encounter Procedures Procedure Name Priority Date/Time Associated Diagnosis Comments XR CHEST 1 VIEW Routine 01/16/2023 documented in this encounter Results * XR CHEST 1 VIEW (01/16/2023) Anatomical Region Laterality Modality Chest Other 01/16/2023 History Per Patient RADIOLOGY (RAD GENER AL) documented in this encounter Advance Directives Documents on File Type Date Recorded Patient Director Mba Expl anation Advance Directives and Living Will 03/11/2018 Krissy Butch Urban ADVANCE DIR ECTIVE Healthcare Agents on File Name Relationship Healthcare Agent Relationship Communication Krissy Ordonez Adult Child Health Care Agen t (per Health Care Power of Spring Assembler Supervisor document) Guille Urban Adult Child Health Care Agen t (per Health Care Power of Spring Assembler Supervisor document) Care Teams Polls Or Surveys Interviewer Relationship Specialty Start Date End Date Rafa Bergman MD [address] [place] [address] [place] [address] PCP - General Family Medicine 04/19/21 documented as of this encounter
--- OUTSIDE RECORDS SUMMARY | 2023-02-24 09:18 | External Medical Summary | Summary of Care ---
Author Name Unknown Organization [facility] [address] [facility] [address] Phone [phone] Care Team Providers Care Staff Design Engineer Name Role Phone Rafa Bergman MD Primary Care Provide r Encounter Details Date Type Department Care Team (Late st Contact Info) Description 09/18/2022 Population Health External Data Unspecified Department Allergies Active Allergy Reactions Criticality Noted Date [...] before bedtime 180 Tablet 1 08/14/2022 Active documented as of this encounter (statuses [...] S/P angioplasty with stent 11/27/2018 Atherosclerosis of [place] co ronary artery of [place] heart without angina pectoris 07/08/2018 Arthritis of [...] Resolved Date Atherosclerosis of coronary artery of [place] heart without angina pectoris 09/10/2022 10/31/2022 Hypothyroidism [...] tendon 12/07/2014 05/24/2015 Vitamin D insufficiency 05/12/2014 10/06/2016 Chronic sinusitis 10/28/2013 01/02/2017 Urinary frequency 09/15/2013 [...] ICD-10 update of inactive term Mixed dyslipidemia Overview: Per Lipid Taxonomy. 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 [place] [address] Pedro Tinsley DO [address] [place] [address] 02/26/2023 8:00 AM EST Office Visit Cardiology, [facility] [address] [facility] [place] [address] Shira Lu CRNP [address] [place] [address] [place] [phone] 03/06/2023 10:40 AM EST Office Visit Family Medicine [address] [place] [phone] Rafa Bergman MD [address] [place] [address] [place] [address] 03/12/2023 11:00 AM EST Nurse Only Ancillary [address] [place] [address] [place], Nurse Annual [address] [place] [address] 04/30/2023 10:15 AM EST Office Visit Dermatology [facility] [place] [address] [place] [address] Guy Trivedi MD [address] [place] [address] 05/16/2023 10:15 AM EST Hospital Encounter ENDO [facility], Endoscopy Room [facility] [address] [facility] [place] [phone] Nahun Hong MD 132 [facility] [place] [address] 05/16/2023 10:15 AM EST - 05/16/2023 10:45 AM EST Surgery ENDO [facility], Endoscopy Room [facility] [address] [place] [phone] Nahun Hong MD [address] [place] [address] COLONOSCOPY FLEXIBLE PROXIMAL DIAGNOSTIC 05/28/2023 9:00 AM EST Cardiac Studies Cardiology [address] [place] [address] [facility] [address] [place] [address] 07/05/2023 8:40 AM EDT Office Visit Rheumatology [address] [place] [phone] Deangelo Holley MD [address] [place] [address] [place] [address] Scheduled Procedures Name Priority Associated Diagnoses Date/Ti me COLONOSCOPY FLEXIBLE PROXIMAL DIAGNOSTIC Colon cancer screening 05/16/2023 10:15 AM EST Health Maintenance Due Date Last Done Comments DTaP,Tdap,and Td Vaccines (2 - Td or Tdap) 11/02/2017 11/03/2007 CKD PHOS USE SMARTSET 61817 04/19/202204/01, 11/27/2019, 11/21/2018, Additional history exists Depression Screening 07/17/2022 07/17/2021 GFR 09/25/2022 03/27/2022, 03/02, 10/18/2021, Additional history exists COVID-19 Vaccine (2022- season) 2022 02/05/2022, 08/02/2021, 02/28/2021, Additional history exists Influenza Vaccine (FLU shot) (#1) 2022 01/30/2022, 12/28/2020, 12/31/2019, Additional history exists Albumin/Creatinine Ratio 03/21/2023 022, 04/19/2021, 12/31/2017, Additional history exists HbA1c 03/21/2023 03/21/2022, 04/01, 10/06/2020, Additional history exists CKD HGB USE SMARTSET 94047 04/24/202304/24, 04/24/2022, 03/27/2022, Additional history exists TSH 05/22/2023 05/22/2022, 03/02, 04/19/2021, Additional history exists DXA Scan 07/18/2024 07/18/2022, 12/01, 05/09/2017, Additional history exists Hepatitis B Completed 03/18/2009, 05/30, 05/12/2008 Pneumococcal Vaccine: 65+ Years Completed 03/28/2015, 03/20/2010, 11/15/2004 COLONOSCOPY-EVERY 5 YRS AGES 18-100 Discontinued 02/27/2017, 02/27/2017, 10/17/2004 Zoster Vaccines Completed 06/12/2021, 02/01, 11/04/2012 VITAMIN D LEVEL ONCE IN A LIFETIME-USE SMARTSET# 52563 Completed 11/06/2021, 12/28/2019, 06/24/2017, Additional history exists GARDASIL-HPV IMMUNIZATION SERIES Aged Out No longer eligible based on patient's age to complete this topic MENINGOCOCCAL (MENACTRA/MENVEO) Aged Out No longer eligible based on patient's age to complete this topic documented as of this encounter Medical Devices Implanted Type Area Certified Solid Waste Facility Operator Device Identifier Shelf Expiration Date Model / Serial / Lot Lens Intraoc 21.5 - [id number] - [id number] Implanted:Qty: 1 on 05/12/2019 by Yury Brady MD at OR [facility] Right: Eye [employer] 12/30/2023 [id number] / [id number] / [id number] Lens Intraoc 22.5 - [id number] - [id number] Implanted:Qty: 1 on 04/05/2020 by Yury Brady MD at OR [facility] Left: Eye [employer] 09/28/2024 [id number] / [id number] / [id number] documented as of this encounter Advance Directives Documents on File Type Date Recorded Patient Counselor Education Professor Expl anation Advance Directives and Living Will [...] Agen t (per Health Care Power of Supervisor Fabrication Department document) Guille Urban Adult Child Health Care Agen t (per Health Care Power of Supervisor Fabrication Department document) Care Teams Staff Design Engineer Relationship Specialty Start Date End Date Rafa Bergman MD [address] [place] [address] [place] [address] PCP - General Family Medicine 04/19/21 documented as of this encounter
--- OUTSIDE RECORDS SUMMARY | 2023-02-24 09:18 | External Medical Summary | Summary of Care ---
Author Name Unknown Organization [facility] Address [address] [facility] [place] [address] Phone [phone] Care Team Providers Care Sample Cutter Name Role Phone Rafa Bergman MD Primary Care Provide r Reason for Visit * Reason Comments Follow Up Referred by Dr. Ryan laguna for non-clearing floaters OD. Possible vitrectomy. History of BRVO with ME OD, endophthalmitis OD and small choroidal nevus OD. Encounter Details Date Type Department Care Team (Latest Contact Info) Description 01/03/2023 7:15 AM EDT Office Visit Ophthalmology, [facility] [address] [place] [address] Brian Gagnon DO [address] [facility] [place] [address] Nurse Екатерина Ophthalmology [address] [facility] [place] [address] 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*; Purulent endophthalmitis of right eye; Nevus of choroid of right eye; Vitreous opacities of right eye Allergies Active Allergy Reactions Criticality Noted Date Comments Colchicine Diarrhea 06/16/2018 Daptomycin 01/05/2015 Shortness of breath Imipenem Edema airway High 01/05/2015 Metoprolol Low 01/23/2021 Other reaction(s): fatigue Zoledronic Acid 04/24/2012 Myalgias, fever, chills, vomiting x 2 days Sulfa Antibiotics 12/22/2002 Bactrim--itchy all over, eyes swollen documented as of this encounter (statuses as of 01/29/2023) Medications Medication Sig Dispensed Refills Start Date [...] on 10/09/2022 Famotidine 20 MG Oral Tablet (Pepcid)Joni ns:Abdominal pain, epigastric,Nausea take 1 tablet in [...] bowel syndrome with both constipation and diarrhea Take by mouth 1 Capsule as needed in the morning AND 1 Capsule as needed at noon AND 1 Capsule as needed in the evening AND 1 Capsule as needed before bedtime for Pain or Gas. For abdominal pain. 120 Capsule 11 2 01/09/20 23 Discontinued Atenolol 25 MG Oral Tablet (Tenormin) take 1/2 tablet daily 30 Tablet 5 2 01/15/20 23 Discontinued Pantoprazole Sodium 40 MG Oral Tablet Delayed Release (Protonix) TAKE 1 TABLET BY MOUTH EVERY MORNING 90 Tablet 1 3 01/28/20 23 Discontinued Hospital, Clinic, or Other Facility [...] as of this encounter (statuses as of 01/29/2023) Active Problems Problem Noted Date Diagnosed Date [...] S/P angioplasty with stent 11/27/2018 Atherosclerosis of huslia co ronary artery of huslia heart without angina pectoris 07/08/2018 Arthritis of [...] as of this encounter (statuses as of 01/29/2023) Resolved Problems Problem Noted Date Diagnosed Date Resolved Date Atherosclerosis of coronary artery of hus[place] heart without angina pectoris 09/10/2022 10/31/2022 Hypothyroidism [...] filter 02/28/2015 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 11/2018 CKD (chronic kidney disease) stage 2, GFR 60-89 ml/min 03/12/2019 documented as of this encounter (statuses as of 01/29/2023) Immunizations Name Administration Dates Next Due COVID-19 [...] Influenza, Split, I IV3, With Preserve, Inj 02/21/2015,12/25/2013,12/31/2012,11/30,01/17/2011,01/20/2010,12/31/19,02/19/2008,02/06/2007,02/05/2006,1 04/14/2004,01/11/2004,01/19/2003,01/12 Seasonal Influenza, Trivalen t, High Dose, [...] as of this encounter Progress Notes * Brian Gagnon DO - 01/03/2023 7:27 AM EDT Rehana Moran is a 77 year old female who presents for Chief Complaint Patient presents with Follow Up Referred by Dr. Tinsley for non-clearing floaters OD. Possible vitrectomy. History of BRVO with ME OD, endophthalmitis OD and small choroidal nevus OD. Visit date 12/25/2022 Dr. Tinsley, Visit date not found (telemedicine) Has your medical history changed since your last office visit? No She currently states she gets an Eylea injection in her right eye for BRVO with ME every 6 weeks. She developed endophthalmitis on 11/16/2022, 3 days after receiving the Eylea injection. She now has debris in her right eye and it causes nausea and has a headache. History treatment for endophthalmitis in the right eye with Dr. Cedeño 11/17/2022. Treated with intravitreal vancomycin and ceftazidime. Culture was positive for Two colonies Staphylococcus, coagulase negative Are you diabetic? NO. Are you being treated for macular degeneration? NO. Current Ophthalmic Medications: None Nursing notes reviewed. Base Eye Exam Visual Acuity (Snellen - Linear) Right Left Dist sc 20/200 +2 20/25 -2 Dist ph sc NI Tonometry (Tonopen, 7:23 AM) Right Left Pressure 18 23 Tonometry #2 (Tonopen, 7:23 AM) Right Left Pressure 22 Tonometry #3 (Tonopen, 7:23 AM) Right Left Pressure 23 Pupils Dark React APD Right 4 Minimal None Left 4 Minimal None Visual Toribio (Counting fingers) Right Left Full Restrictions Partial outer inferior nasal deficiency Extraocular Movement Right Left Full Full Neuro/Psych Oriented x3: Yes Mood/Affect: Normal Dilation Both eyes: 1.0% Mydriacyl, 2.5% Phenylephrine, 0.5% Proparacaine @ 7:24 AM Patient cautioned that effects of dilation may last 2-7 hours dependant upon individual reaction. It was discussed that driving while dilated is not recommended. Slit Lamp and Fundus Exam External Exam Right Left External Normal Normal Slit Lamp Exam Right Left Lids/Lashes Normal Normal Conjunctiva/Sclera White and quiet Subconjunctival hemorrhage temporal. Cornea Clear centrally, early limbal girdle Clear centrally, early limbal girdle Anterior Chamber Deep, trace cell. Deep and quiet Iris Normal, dilated Normal, dilated Lens Posterior chamber intraocular lens, clear capsule. Posterior chamber intraocular lens, clear capsule. Anterior Vitreous Significant vitreous debris with anterior cell. Mild vitreous hemorrhage inferior. Posterior vitreous detachment, Levin ring Vitreous syneresis. No PVD. Fundus Exam Right Left Disc Normal Normal C/D Ratio 0.1 0.1 Macula Rare dot hemorrhage superior. No edema central. Normal Vessels Superotemporal BRVO. Mild AV nicking. Mild AV nicking. Periphery Intact, no hole, tear or detachment. Small flat nevus temporal mid- periphery. Rare intraretinal hemorrhage superior. Normal, no hole, tear or detachment. OCT: OD: central thickness 228 microns. Central scan similar to 12/25/2022. No edema. Atrophy through the temporal macula. Subtle central RPE and Photoreceptor disruption. OS: central thickness 231 microns. Central scan similar to the previous from 09/19/2022. Normal scan. No edema. Today's imaging was reviewed with the patient. 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 Reasonable to proceed with vitrectomy to clear the vitreous debris. Will schedule. Vein occlusion appears stable without edema on exam today. The peripheral retina appears stable with small nevus temporal and rare intraretinal hemorrhage superior. OS stable with normal macula and periphery. Preference would be to hold Eliquis and aspirin prior to surgery. Four days for Eliquis in 7 for aspirin if possible. If unable to stop both preference would be to hold aspirin. We have discussed the risks and benefits of surgery. The risks include but are not limited to infection (approximately one out of 2000), hemorrhage, retinal detachment, increased intraocular pressure, decreased vision or blindness with total loss of vision. Additional surgery or procedures may be required. She understands and wishes to proceed. As required by [place] Act 112, the Patient Test Result Information Act, I have discussed withthe patient the significant findings from the diagnostic imaging service performed today. They haveexpressed their understanding and signed the acknowledgement form. FOLLOW UP: Follow Up: Return for Schedule vitrectomy OD. | For: Schedule vitrectomy OD By signing my name below, I, Mary Pacheco OSC, Enrober Tender, attest that this documentation has been scribed under the direction and in the presence of Hadley Taonifer L. Free, OSC, Enrober Tender Brian Gagnon DO 01/03/2023 I have reviewed the documentation by the scribe. I have made corrections and additions to it as needed. The final documentation is an accurate representation of my observations and impressions. Brian Gagnon D.O. 01/05/2023 1:07 PM Ophthalmology, [place] [address] [place] [address] documented in this encounter Nursing Notes * Ivis Dang LPN - 01/03/2023 9:37 AM EDT OCT image(s) of both eyes acquired and filed/scanned into chart. * Vida Perez TECH - 01/03/2023 7:11 AM EDT Rehana Moran is a 77 year old female who presents for Chief Complaint Patient presents with Follow Up Referred by Dr. Tinsley for non-clearing floaters OD. Possible vitrectomy. History of BRVO with ME OD, endophthalmitis OD and small choroidal nevus OD. Visit date 12/25/2022 Dr. Tinsley, Visit date not found (telemedicine) Has your medical history changed since your last office visit? No She currently states she gets an Eylea injection in her right eye for BRVO with ME every 6 weeks. She developed endophthalmitis on 11/16/2022, 3 days after receiving the Eylea injection. She now has debris in her right eye and it causes nausea and has a headache. Are you diabetic? NO. Are you being treated for macular degeneration? NO. Current Ophthalmic Medications: None Vision, IOP, confrontation toribio, motility, pupil check and dilation per physician protocol can befound on the Ophth exam. documented in this encounter Plan of Treatment Upcoming Encounters Date Type Department Care Team (Late st Contact Info) Description 01/30/2023 8:00 AM EDT Hospital Encounter OR [facility], Operating Room, [facility] 3rd Floor [address] [facility] [place] [address] Brian Gagnon, DO [address] [place] [address] 01/30/2023 8:00 AM EDT - 01/30/2023 9:38 AM EDT Surgery OR [facility], Operating Room, [facility] 3rd Floor [address] [facility] [place] [address] Brian Gagnon DO [address] [place] [address] RIGHT VITRECTOMY MECHANICAL PARS PLANA APPROACH 2023 9:45 AM EDT Office Visit Ophthalmology, [facility] [address] [place] [address] Brian Gagnon DO [address] [place] [address] Nurse Екатерина Ophthalmology [address] [place] [address] 02/07/2023 2:00 PM EST Office Visit Ophthalmology, [facility] [address] [place] [address] Brian Gagnon, DO [address] [place] [address] Екатерина Nurse Ophthalmology [address] [place] [address] 02/12/2023 11:30 AM EST Cardiac Studies Cardiology [address] [place] [address] Cadence Horne [address] [place] [address] 02/12/2023 4:00 PM EST Imaging Radiology [facility]st [facility] [address] [facility] [place] [address] 02/13/2023 10:30 AM EST Office Visit Ophthalmology, [facility] [address] [facility] [place] [address] Pedro Tinsley DO [address] [place] [address] 02/26/2023 8:00 AM EST Office Visit Cardiology, [facility] [address] [facility] [place] [address] Shira Lu CRNP [address] [place] [address] 03/06/2023 10:40 AM EST Office Visit [address] [phone] Rafa Bergman MD [address] [place] [address] [place] [address] 04/30/2023 10:15 AM EST Office Visit Dermatology [facility] [address] [facility] [place] [address] Guy Trivedi MD [address] [place] [address] 05/16/2023 10:15 AM EST Hospital Encounter ENDO [facility], Endoscopy Room [facility] [address] [facility] [place] [phone] Nahun Hong MD [address] [place] [address] 05/16/2023 10:15 AM EST - 05/16/2023 10:45 AM EST Surgery ENDO [facility], Endoscopy Room [facility] [address] [facility] [place] [address] Nahun Hong MD [address] [place] [address] COLONOSCOPY FLEXIBLE PROXIMAL DIAGNOSTIC 07/05/2023 8:40 AM EDT Office Visit Rheumatology [address] [place] [phone] Deangelo Holley MD [facility] [place] [address] Scheduled Procedures Name Priority Associated Diagnoses Date/Ti me VITRECTOMY MECHANICAL PARS PLANA APPROACH Vitreous floaters of right eye 01/30/2023 8:00 AM EDT COLONOSCOPY FLEXIBLE PROXIMAL DIAGNOSTIC Colon cancer screening 05/16/2023 10:15 AM EST Health Maintenance Due Date Last Done Comments DTaP,Tdap,and Td Vaccines (2 - Td or Tdap) 11/02/2017 11/03/2007 CKD PHOS USE SMARTSET 56645 04/19/202204/01, 11/27/2019, 11/21/2018, Additional history exists Depression Screening 07/17/2022 07/17/2021 GFR 09/25/2022 03/27/2022, 03/02, 10/18/2021, Additional history exists COVID-19 Vaccine ( season) 2022 02/05/2022, 08/02/2021, 02/28/2021, Additional history exists Influenza Vaccine (FLU shot) (#1) 2022 01/30/2022, 12/28/2020, 12/31/2019, Additional history exists Albumin/Creatinine Ratio 03/21/2023 022, 04/19/2021, 12/31/2017, Additional history exists HbA1c 03/21/2023 03/21/2022, 04/01, 10/06/2020, Additional history exists CKD HGB USE SMARTSET 87682 04/24/202304/24, 04/24/2022, 03/27/2022, Additional history exists TSH 05/22/2023 05/22/2022, 03/02, 04/19/2021, Additional history exists DXA Scan 07/18/2024 07/18/2022, 12/01, 05/09/2017, Additional history exists Hepatitis B Completed 03/18/2009, 05/30, 05/12/2008 Pneumococcal Vaccine: 65+ Years Completed 03/28/2015, 03/20/2010, 11/15/2004 COLONOSCOPY-EVERY 5 YRS AGES 18-100 Discontinued 02/27/2017, 02/27/2017, 10/17/2004 Zoster Vaccines Completed 06/12/2021, 02/01, 11/04/2012 VITAMIN D LEVEL ONCE IN A LIFETIME-USE SMARTSET# [id number] Completed 11/06/2021, 12/28/2019, 06/24/2017, Additional history exists GARDASIL-HPV IMMUNIZATION SERIES Aged Out No longer eligible based on patient's age to complete this topic MENINGOCOCCAL (MENACTRA/MENVEO) Aged Out No longer eligible based on patient's age to complete this topic documented as of this encounter Medical Devices Implanted Type Area Chief Engineer Device Identifier Shelf Expiration Date Model / Serial / Lot Lens Intraoc 21.5 - [id number] - [id number] Implanted:Qty: 1 on 05/12/2019 by Yury Brady MD at OR [facility] Right: Eye [employer] 12/30/2023 [id number] / [id number] / [id number] Lens Intraoc 22.5 - [id number] - [id number] Implanted:Qty: 1 on 04/05/2020 by Yury Brady MD at OR [facility] Left: Eye [employer] 09/28/2024 [id number] / [id number] / [id number] documented as of this encounter Visit Diagnoses Diagnosis 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- Primary Purulent endophthalmitis of right eye Purulent endophthalmitis, unspecified Nevus of choroid of right eye Vitreous opacities of right eye Vitreous floaters of right eye Colon cancer screening Special screening for malignant neoplasms, colon documented in this encounter Advance Directives Documents on File Type Date Recorded Patient Hog Driver Expl anation Advance Directives and Living Will 03/11/2018 Krissyva Urban ADVANCE DIR ECTIVE Healthcare Agents on File Name Relationship Healthcare Agent Relationship Communication Krissy Ordonez Adult Child Health Care Agen t (per Health Care Power of Environmental Engineering Professor document) Guille Urban Adult Child Health Care Agen t (per Health Care Power of Environmental Engineering Professor document) Care Teams Sample Cutter Relationship Specialty Start Date End Date Rafa Bergman MD [address] [place] [address] [place] [address] PCP - General Family Medicine 04/19/21 documented as of this encounter"
--- OUTSIDE RECORDS SUMMARY | 2023-02-24 09:18 | External Medical Summary | Summary of Care ---
Author Name Unknown Organization [facility] Address [address] [facility] [place] [address] Phone [phone] Care Team Providers Care Clinical Cytogeneticist Scientist Name Role Phone Rafa Bergman MD Primary Care Provide r Reason for Visit * Reason Comments Post-Op 1 day follow up s/p vitrectomy and posterior capsulotomy right eye on 01/30/2023. History of vitreous opacities OD, BRVO with ME OD and history of purulent endophthalmitis OD, resolved. 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; Purulent endophthalmitis of right eye Allergies Active Allergy Reactions Criticality Noted Date Comments Colchicine Diarrhea 06/16/2018 Daptomycin 01/05/2015 Shortness of breath Imipenem Edema airway High 01/05/2015 Metoprolol Low 01/23/2021 Other reaction(s): fatigue Zoledronic Acid 04/24/2012 Myalgias, fever, chills, vomiting x 2 days Sulfa Antibiotics 12/22/2002 Bactrim--itchy all over, eyes swollen documented as of this encounter (statuses as of 2023) Medications Medication Sig Dispensed Refills Start Date [...] loose stool 30 Capsule 3 08/01/2022 Active Allopurinol 300 MG Oral Tablet (Zyloprim) take 1 and 1/2 tablets daily 135 Tablet 1 08/11/2022 Active Additional Information Patient taking differently: Oral, Take 300 mg in the AM, and 1/2 tab (150 mg) in the PM., Informant: At Discharge, Reported on 10/09/2022 Famotidine 20 MG Oral Tablet (Pepcid)Alejandroo ns:Abdominal pain, epigastric,Nausea take 1 tablet in [...] DAY 45 Tablet 3 01/14/2023 Active Nystatin 956889 UNIT/ML Mouth/Throat SuspensionIndicat ions:Thrush Swish and swallow 5 mL in the morning and 5 mL at noon and 5 mL in the evening and 5 mL before bedtime. For thrush.. 240 mL 1 01/21/2023 3 Active Pantoprazole Sodium 40 MG Oral Tablet Delayed Release (Protonix) TAKE ONE TABLET BY MOUTH IN THE MORNING 90 Tablet 1 01/27/2023 Active predniSONE 10 MG Oral Tablet (Deltasone)Indica tions:Hip pain, right,Acute pain of right knee Take 5 tabs for 2 days, 4 tabs for 2 days, 3 tabs for 2 days, 2 tabs for 2 days 1 tab for 2 days 30 Tablet 0 12/19/2022 3 Discontinue d(Medicatio n List Clean Up) predniSONE 20 MG Oral Tablet (Deltasone) Take 1 Tablet by mouth in the morning. Take 0.5 tablet by mouth in the morning as needed for gout flares.. 90 Tablet 1 12/24/2022 3 Discontinue d(Medicatio n List Clean Up) Hospital, Clinic, or Other Facility Administered Medication [...] as of this encounter (statuses as of 2023) Active Problems Problem Noted Date Diagnosed Date Purulent endophthalmitis of right eye 01/03/2023 Nevus of 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 History of [place] (myocardial infarction) 11/27/2022 History of pulmonary embolism [...] S/P angioplasty with stent 11/27/2018 Atherosclerosis of [place] co ronary artery of [place] heart without angina pectoris 07/08/2018 Arthritis of [...] as of this encounter (statuses as of 2023) Resolved Problems Problem Noted Date Diagnosed Date Resolved Date Atherosclerosis of coronary artery of [place] heart without angina pectoris 09/10/2022 10/31/2022 Hypothyroidism [...] filter 02/28/2015 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 11/2018 CKD (chronic kidney disease) stage 2, GFR 60-89 ml/min 03/12/2019 documented as of this encounter (statuses as of 2023) Immunizations Name Administration Dates Next Due COVID-19 [...] on file documented as of this encounter Patient Instructions * Patient Instructions* Vida Perez TECH - 2023 9:31 AM EDT Current Ophthalmic Medications: Ofloxacin 0.30% op soln 1 drop four times daily right eye Prednisolone acetate 1% op soln 1 drop four times daily right eye documented in this encounter Progress Notes * Brian Gagnon DO - 2023 9:28 AM EDT Rehana Moran is a 78 year old female who presents for Chief Complaint Patient presents with Post-Op 1 day follow up s/p vitrectomy and posterior capsulotomy right eye on 01/30/2023. History of vitreous opacities OD, BRVO with ME OD and history of purulent endophthalmitis OD, resolved. 01/03/2023 (in office), Visit date not found (telemedicine) Has your medical history changed since your last office visit? Yes, sinus infection 10 days ago. She currently states she feels her vision is somewhat better after removing the patch. " I have a big ball of fluid at the bottom of my eye". Are you diabetic? NO. Are you being treated for macular degeneration? NO. Current Ophthalmic Medications: Ofloxacin 0.30% op soln 1 drop four times daily right eye Prednisolone acetate 1% op soln 1 drop four times daily right eye Nursing notes reviewed. Base Eye Exam Visual Acuity (Snellen - Linear) Right Left Dist sc 20/60 20/40 Dist ph sc NI 20/25 +2 Tonometry (Tonopen, 9:26 AM) Right Left Pressure 8 13 Tonometry #2 (Tonopen, 9:26 AM) Right Left Pressure 7 Tonometry #3 (Tonopen, 9:26 AM) Right Left Pressure 8 Pupils Dark React APD Right 6.5 PhDil None Left 4 Minimal None Visual Toribio (Counting fingers) Right Left Full Full Extraocular Movement Right Left Full Full Neuro/Psych Oriented x3: Yes Mood/Affect: Normal Dilation Right eye: 1.0% Mydriacyl, 2.5% Phenylephrine, 0.5% Proparacaine @ 9:27 AM Patient cautioned that effects of dilation may last 2-7 hours dependant upon individual reaction. It was discussed that driving while dilated is not recommended. Slit Lamp and Fundus Exam External Exam Right Left External Normal Slit Lamp Exam Right Left Lids/Lashes Normal Conjunctiva/Sclera Minimal postop injection Cornea Clear centrally, early limbal girdle Anterior Chamber Deep, rare cell. Iris Normal, dilated Lens Posterior chamber intraocular lens, capsulotomy Anterior Vitreous Status post vitrectomy. 30% air bubble. Fundus Exam Right Left Disc Normal C/D Ratio 0.1 Macula Rare dot hemorrhage superior. No edema central. Vessels Superotemporal BRVO. Mild AV nicking. Periphery Intact, no hole, tear or detachment. Small flat nevus temporal mid- periphery. Rare intraretinal hemorrhage superior. 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 | For: Dilate OD, OCT OD By signing my name below I, Vdia Perez, Line Cook, attest that this documentation hasbeen scribed under the direction and in the presence of Brian Gagnon D.O. Vida Perez, Line Cook I have reviewed the documentation by the scribe. I have made corrections and additions to it as needed. The final documentation is an accurate representation of my observations and impressions. Brian Gagnon D.O. 2023 9:42 AM Ophthalmology, [place] [address] [place] [address] documented in this encounter Nursing Notes * Vida Perez TECH - 2023 9:12 AM EDT Rehana Moran is a 78 year old female who presents for Chief Complaint Patient presents with Post-Op 1 day follow up s/p vitrectomy and posterior capsulotomy right eye on 01/30/2023. History of vitreous opacities OD, BRVO with ME OD and history of purulent endophthalmitis OD, resolved. 01/03/2023 (in office), Visit date not found (telemedicine) Has your medical history changed since your last office visit? Yes, sinus infection 10 days ago. She currently states she feels her vision is somewhat better after removing the patch. " I have a big ball of fluid at the bottom of my eye". Are you diabetic? NO. Are you being treated for macular degeneration? NO. Current Ophthalmic Medications: Ofloxacin 0.30% op soln 1 drop four times daily right eye Prednisolone acetate 1% op soln 1 drop four times daily right eye Vision, IOP, confrontation toribio, motility, pupil check and dilation per physician protocol can befound on the Ophth exam. documented in this encounter Plan of Treatment Upcoming Encounters Date Type Department Care Team (Late st Contact Info) Description 02/07/2023 2:00 PM EST Office Visit Ophthalmology, [facility] [address] [place] [address] Brian Gagnon DO [address] [place] [address] Nurse Екатерина Ophthalmology [address] [place] [address] 02/12/2023 11:30 AM EST Cardiac Studies Cardiology [address] [place] [address] [place], [facility] [address] [facility] [place] [address] 02/12/2023 4:00 PM EST Imaging Radiology [facility] 1st [facility] [address] [facility] [place] [address] 02/13/2023 10:30 AM EST Office Visit Ophthalmology, [facility] [address] [facility] [place], [place] [address] Pedro Tinsley DO [address] [place], [place] [address] 02/26/2023 8:00 AM EST Office Visit Cardiology, [facility] [address] [facility] [place] [address] Shira Lu CRNP [address] [facility] [place] [address] 03/06/2023 10:40 AM EST Office Visit Family Medicine [address] [phone] Rafa Bergman MD [address] [place] [address] [place] [address] 04/30/2023 10:15 AM EST Office Visit Dermatology [facility] [address] [place] [address] Guy Trivedi MD [address] [place] [address] 05/16/2023 10:15 AM EST Hospital Encounter ENDO [facility], Endoscopy Room [facility] [address] [facility] [place] [phone] Nahun Hong MD [address] [place] [address] 05/16/2023 10:15 AM EST - 05/16/2023 10:45 AM EST Surgery ENDO [facility], Endoscopy Room [facility] [address] [place] [phone] Nahun Hong MD [address] [place] [address] COLONOSCOPY FLEXIBLE PROXIMAL DIAGNOSTIC 07/05/2023 8:40 AM EDT Office Visit Rheumatology [address] [place] [phone] Deangelo Holley MD [address] [facility] [place] [address] Scheduled Procedures Name Priority Associated Diagnoses Date/Ti me COLONOSCOPY FLEXIBLE PROXIMAL DIAGNOSTIC Colon cancer screening 05/16/2023 10:15 AM EST Health Maintenance Due Date Last Done Comments DTaP,Tdap,and Td Vaccines (2 - Td or Tdap) 11/02/2017 11/03/2007 CKD PHOS USE SMARTSET 79878 04/19/202204/01, 11/27/2019, 11/21/2018, Additional history exists Depression Screening 07/17/2022 07/17/2021 GFR 09/25/2022 03/27/2022, 03/02, 10/18/2021, Additional history exists COVID-19 Vaccine ( season) 2022 02/05/2022, 08/02/2021, 02/28/2021, Additional history exists Influenza Vaccine (FLU shot) (#1) 2022 01/30/2022, 12/28/2020, 12/31/2019, Additional history exists Albumin/Creatinine Ratio 03/21/2023 022, 04/19/2021, 12/31/2017, Additional history exists HbA1c 03/21/2023 03/21/2022, 04/01, 10/06/2020, Additional history exists CKD HGB USE SMARTSET 03299 04/24/202304/24, 04/24/2022, 03/27/2022, Additional history exists TSH 05/22/2023 05/22/2022, 03/02, 04/19/2021, Additional history exists DXA Scan 07/18/2024 07/18/2022, 12/01, 05/09/2017, Additional history exists Hepatitis B Completed 03/18/2009, 05/30, 05/12/2008 Pneumococcal Vaccine: 65+ Years Completed 03/28/2015, 03/20/2010, 11/15/2004 COLONOSCOPY-EVERY 5 YRS AGES 18-100 Discontinued 02/27/2017, 02/27/2017, 10/17/2004 Zoster Vaccines Completed 06/12/2021, 02/01, 11/04/2012 VITAMIN D LEVEL ONCE IN A LIFETIME-USE SMARTSET# [id number] Completed 11/06/2021, 12/28/2019, 06/24/2017, Additional history exists GARDASIL-HPV IMMUNIZATION SERIES Aged Out No longer eligible based on patient's age to complete this topic MENINGOCOCCAL (MENACTRA/MENVEO) Aged Out No longer eligible based on patient's age to complete this topic documented as of this encounter Medical Devices Implanted Type Area Upper Tier Device Identifier Shelf Expiration Date Model / Serial / Lot Lens Intraoc 21.5 - [id number] - [id number] Implanted:Qty: 1 on 05/12/2019 by Yury Brady MD at OR [facility] Right: Eye [employer] 12/30/2023 [id number] / [id number] / [id number] Lens Intraoc 22.5 - [id number] - [id number] Implanted:Qty: 1 on 04/05/2020 by Yury Brady MD at OR [facility] Left: Eye [employer] 09/28/2024 [id number] / [id number] / [id number] documented as of this encounter Visit Diagnoses Diagnosis Vitreous opacities of right eye- Primary 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 Purulent endophthalmitis, unspecified Colon cancer screening Special screening for malignant neoplasms, colon documented in this encounter Advance Directives Documents on File Type Date Recorded Patient Ui Architect Expl anation Advance Directives and Living Will [...] Agen t (per Health Care Power of Chief I Dispatcher document) Guille Urban Adult Child Health Care Agen t (per Health Care Power of Chief I Dispatcher document) Care Teams Clinical Cytogeneticist Scientist Relationship Specialty Start Date End Date Rafa Bergman MD [address] [place] [address] [place] [phone] PCP - General Family Medicine 04/19/21 documented as of this encounter
--- OUTSIDE RECORDS SUMMARY | 2023-02-24 09:18 | External Medical Summary | Summary of Care ---
Author Name Unknown Organization [facility] Address [address] [place] [facility] [place] [place] [address] Phone [phone] Care Team Providers Care Coconut Boiler Name Role Phone Rafa Bergman MD Primary Care Provide r Reason for Visit * Reason Onset Date Comments Advice 02/05/2023 Encounter Details Date Type Department Care Team (Late st Contact Info) Description 02/05/2023 Telephone Family Medicine [address] [place] [phone] Rafa Bergman MD [address] [place] [address] [place] [address] Advice Allergies Active Allergy Reactions Criticality Noted Date Comments Colchicine Diarrhea 06/16/2018 Daptomycin 01/05/2015 Shortness of breath Imipenem Edema airway High 01/05/2015 Metoprolol Low 01/23/2021 Other reaction(s): fatigue Zoledronic Acid 04/24/2012 Myalgias, fever, chills, vomiting x 2 days Sulfa Antibiotics 12/22/2002 Bactrim--itchy all over, eyes swollen documented as of this encounter (statuses as of 02/06/2023) Medications Medication Sig Dispensed Refills Start Date [...] Active Rosuvastatin Calcium 5 MG Oral Tablet (Crestor)Shilohti ons:Dyslipidemia, goal LDL below 70 TAKE 1 TABLET BY MOUTH EVERY MORNING 30 Tablet 11 05/15/2022 Active Loperamide HCl 2 MG Oral Capsule (Imodium)Shilohti ons:Diarrhea, unspecified type take 1 capsule 4 [...] DAY 45 Tablet 3 01/14/2023 Active Nystatin 406736 UNIT/ML Mouth/Throat SuspensionIndicat ions:Thrush Swish and swallow 5 mL in the morning and 5 mL at noon and 5 mL in the evening and 5 mL before bedtime. For thrush.. 240 mL 1 01/21/2023 Active Pantoprazole Sodium 40 MG Oral Tablet Delayed Release (Protonix) TAKE ONE TABLET BY MOUTH IN THE MORNING 90 Tablet 1 01/27/2023 Active Cetirizine HCl 10 MG Oral Tablet (ZyrTEC Allergy) Take 1 Tablet by mouth in the morning. 0 02/06/2023 Active Fexofenadine HCl 60 MG Oral Tablet (ELKE) Take 1 Tablet by mouth in the morning. 0 3 Discontinue d(Patient preference/ discontinua tion) Hospital, Clinic, or Other Facility Administered Medication [...] as of this encounter (statuses as of 02/06/2023) Active Problems Problem Noted Date Diagnosed Date Purulent endophthalmitis of right eye 01/03/2023 Nevus of 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 History of [place] (myocardial infarction) 11/27/2022 History of pulmonary embolism [...] S/P angioplasty with stent 11/27/2018 Atherosclerosis of [place] co ronary artery of [place] heart without angina pectoris 07/08/2018 Arthritis of [...] as of this encounter (statuses as of 02/06/2023) Resolved Problems Problem Noted Date Diagnosed Date Resolved Date Atherosclerosis of coronary artery of [place] heart without angina pectoris 09/10/2022 10/31/2022 Hypothyroidism [...] filter 02/28/2015 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 We will wait for Ct results and go from there * Telephone Encounter - Arlene Wilhelm PA-C - 02/06/2023 10:53 AM EST We will see what the CT shows when she has it. She can switch to zyrtec to see if this helps any better. Is she still using a nasal spray? * Telephone Encounter - Carol Cadet RN - 02/05/2023 11:40 AM EST From call details: COLD/ASTHMA/ALLERGY Yes Cold Symptoms Sinus pressure How long have had your symptoms? 1 month Fever: No Patient's Action(s) What have you done or taken for this problem? Elke Mucinex sinus Tylenol sinus Additional Comment(s) Additional Comments: Pt states she has ongoing lightheadedness that she has been seen for and chronic sinus issues and would like to know what else can be done and if possibly allergy medication should be changed. * Telephone Encounter - Taylor Sunshine OSA - 02/05/2023 7:54 AM EST 1. When were you seen for this problem? 01/15/23 2. What provider did you see for this problem? Arelne Wilhelm 3. What medications are you presently taking? Elke 4. What is it that is no better? Please refer to Call Details. documented in this encounter Plan of Treatment Upcoming Encounters Date Type Department Care Team (Late st Contact Info) Description 02/07/2023 2:00 PM EST Office Visit Ophthalmology, [facility] [address] [place] [address] Brian Gagnon DO [address] [facility] [place] [address] Nurse Екатерина Ophthalmology [address] [facility] [place] [address] 02/12/2023 11:30 AM EST Cardiac Studies Cardiology [address] [place] [address] Cad[facility] [address] [facility] [place] [address] 02/12/2023 4:00 PM EST Imaging Radiology [facility]st [facility] [address] [facility] [place] [address] 02/13/2023 10:30 AM EST Office Visit Ophthalmology, [facility] [address] [facility] [place] [address] Pedro Tinsley DO [address] [place] [address] 02/26/2023 8:00 AM EST Office Visit Cardiology, [facility] [address] [facility] [place] [address] Shira Lu CRNP [address] [place] [address] [place] [phone] 03/06/2023 10:40 AM EST Office Visit Family Medicine [address] [place] [phone] Rafa Bergman MD [address] [place] [address] [place] [address] 03/12/2023 11:00 AM EST Nurse Only Ancillary [address] [place] [address] [place], Nurse Annual [address] [place] [address] 04/30/2023 10:15 AM EST Office Visit Dermatology [facility] [place] [address] [place] [address] Guy Trivedi MD [address] [place] [address] 05/16/2023 10:15 AM EST Hospital Encounter [facility]O [facility], Endoscopy Room [facility] [address] [facility] [place] [phone] Nahun Hong MD [address] [facility] [place] [address] 05/16/2023 10:15 AM EST - 05/16/2023 10:45 AM EST Surgery ENDO [facility], Endoscopy Room [facility] [address] [place] [phone] Nahun Hong MD [address] [place] [address] COLONOSCOPY FLEXIBLE PROXIMAL DIAGNOSTIC 07/05/2023 8:40 AM EDT Office Visit Rheumatology [address] [place] [phone] Deangelo Holley MD [facility] [place], [place] [address] Scheduled Procedures Name Priority Associated Diagnoses Date/Ti me COLONOSCOPY FLEXIBLE PROXIMAL DIAGNOSTIC Colon cancer screening 05/16/2023 10:15 AM EST Health Maintenance Due Date Last Done Comments DTaP,Tdap,and Td Vaccines (2 - Td or Tdap) 11/02/2017 11/03/2007 CKD PHOS USE SMARTSET 94459 04/19/202204/01, 11/27/2019, 11/21/2018, Additional history exists Depression Screening 07/17/2022 07/17/2021 GFR 09/25/2022 03/27/2022, 03/02, 10/18/2021, Additional history exists COVID-19 Vaccine ( season) 2022 02/05/2022, 08/02/2021, 02/28/2021, Additional history exists Influenza Vaccine (FLU shot) (#1) 2022 01/30/2022, 12/28/2020, 12/31/2019, Additional history exists Albumin/Creatinine Ratio 03/21/2023 022, 04/19/2021, 12/31/2017, Additional history exists HbA1c 03/21/2023 03/21/2022, 04/01, 10/06/2020, Additional history exists CKD HGB USE SMARTSET 89168 04/24/202304/24, 04/24/2022, 03/27/2022, Additional history exists TSH 05/22/2023 05/22/2022, 03/02, 04/19/2021, Additional history exists DXA Scan 07/18/2024 07/18/2022, 12/01, 05/09/2017, Additional history exists Hepatitis B Completed 03/18/2009, 05/30, 05/12/2008 Pneumococcal Vaccine: 65+ Years Completed 03/28/2015, 03/20/2010, 11/15/2004 COLONOSCOPY-EVERY 5 YRS AGES 18-100 Discontinued 02/27/2017, 02/27/2017, 10/17/2004 Zoster Vaccines Completed 06/12/2021, 02/01, 11/04/2012 VITAMIN D LEVEL ONCE IN A LIFETIME-USE SMARTSET# [id number] Completed 11/06/2021, 12/28/2019, 06/24/2017, Additional history exists GARDASIL-HPV IMMUNIZATION SERIES Aged Out No longer eligible based on patient's age to complete this topic MENINGOCOCCAL (MENACTRA/MENVEO) Aged Out No longer eligible based on patient's age to complete this topic documented as of this encounter Medical Devices Implanted Type Area Still Operator Batch Or Continuous Device Identifier Shelf Expiration Date Model / Serial / Lot Lens Intraoc 21.5 - [id number] - [id number] Implanted:Qty: 1 on 05/12/2019 by Yury Brady MD at OR [facility] Right: Eye [employer] 12/30/2023 [id number] / [id number] / [id number] Lens Intraoc 22.5 - [id number] - [id number] Implanted:Qty: 1 on 04/05/2020 by Yury Brady MD at OR [facility] Left: Eye [employer] 09/28/2024 [id number] / [id number] / [id number] documented as of this encounter Advance Directives Documents on File Type Date Recorded Patient Novelty Twister Operator Expl anation Advance Directives and Living [...] Agen t (per Health Care Power of Graphite Mill Operator document) Guille Urban Adult Child Health Care Agen t (per Health Care Power of Graphite Mill Operator document) Care Teams Coconut Boiler Relationship Specialty Start Date End Date Rafa Bergman MD [address] [place] [address] [place] [phone] PCP - General Family Medicine 04/19/21 documented as of this encounter
--- OUTSIDE RECORDS SUMMARY | 2023-02-24 09:18 | External Medical Summary | Summary of Care ---
Author Name Unknown Organization [facility] Address [address] [facility] [place] [address] Phone [phone] Care Team Providers Care Eyeglass Fitter Name Role Phone Rafa Bergman MD Primary Care Provide r Reason for Visit * Reason Comments Post-Op 1 week follow up s/p vitrectomy and posterior capsulotomy right eye on 01/30/2023. History of vitreous opacities OD, BRVO with ME OD and history of purulent endophthalmitis OD, resolved. 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 0 02/06/2023 Active Ofloxacin 0.3 % Ophthalmic Solution (Ocuflox) Instill 1 Drop into the right eye in the morning and 1 Drop at noon and 1 Drop in the evening and 1 Drop before bedtime. Begin 2 days prior to scheduled surgery.. 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 Finish current bottle. Donot refill. documented in this encounter Progress Notes * Brian Gagnon DO - 02/07/2023 2:34 PM EST Rehana Moran is a 78 year old female who presents for Chief Complaint Patient presents with Post-Op 1 week follow up s/p vitrectomy and posterior capsulotomy right eye on 01/30/2023. History of vitreous opacities OD, BRVO with ME OD and history of purulent endophthalmitis OD, resolved. 2023 (in office), Visit date not found (telemedicine) Has your medical history changed since your last office visit? Yes, on Prednisone 20 mg for flare up right knee and has a sinus headache. She currently states her vision is not quite as clear as it was in my right eye. It feels like there is a film and she has a few floaters. She continues Prednisolone and Ofloxacin QID OD as directed. Are you diabetic? NO. Are you being treated for macular degeneration? NO. Current Ophthalmic Medications: Ofloxacin 0.30% op soln 1 drop four times daily right eye Prednisolone acetate 1% op soln 1 drop four times daily right eye Nursing notes reviewed. Base Eye Exam Visual Acuity (Snellen - Linear) Right Left Dist sc 20/70 -2 20/30 -1 Dist ph sc 20/60 +2 NI Tonometry (Tonopen, 2:32 PM) Right Left Pressure 16 20 Pupils Dark React APD Right 4 Minimal None Left 4 Minimal None Visual Toribio (Counting fingers) Right Left Full Full Extraocular Movement Right Left Full Full Neuro/Psych Oriented x3: Yes Mood/Affect: Normal Dilation Right eye: 1.0% Mydriacyl, 2.5% Phenylephrine, 0.5% Proparacaine @ 2:33 PM Patient cautioned that effects of dilation may last 2-7 hours dependant upon individual reaction. It was discussed that driving while dilated is not recommended. Slit Lamp and Fundus Exam External Exam Right Left External Normal Slit Lamp Exam Right Left Lids/Lashes Normal Conjunctiva/Sclera White and quiet Cornea Clear centrally, early limbal girdle Anterior Chamber Deep and quiet Iris Normal, dilated Lens Posterior chamber intraocular lens, capsulotomy Anterior Vitreous Vitrectomized with 30% air bubble. Fundus Exam Right Left Disc Normal C/D Ratio 0.1 Macula Rare dot hemorrhage superior. No edema central. Subtle edema superior. Vessels Superotemporal BRVO. Mild AV nicking. Periphery Intact, no hole, tear or detachment. Small flat nevus temporal mid- periphery. Rare intraretinal hemorrhage superior. OCT: OD: central thickness 243 microns. A 15 micron increase central with a 34 micron increase superior compared to 01/03/23. Subtle increase in edema central and superior. Today's imaging was reviewed with the patient. 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 Subtle increase in macular edema. Last Eylea was 11/13/2022. She does have follow-up appointment with Dr. Tinsley next week. No apparent complications from vitrectomy. Will return to the care of Dr. Tinsley. I can follow as needed. Alter drops as indicated below. Continue Ophthalmic Medications: STOP: Ofloxacin 0.30% op soln 1 drop four times daily right eye DECREASE: Prednisolone acetate 1% op soln 1 drop 2 times daily right eye. Finish current bottle. Donot refill. FOLLOW UP: Follow Up: Return for PRN. | For: PRN By signing my name below, I, PENNIE Almanza, Child Development Specialist, attest that this documentation has been scribed under the direction and in the presence of Brian Gagnon D.O. PENNIE Almanza, Child Development Specialist I have reviewed the documentation by the scribe. I have made corrections and additions to it as needed. The final documentation is an accurate representation of my observations and impressions. Brian Gagnon D.O. 02/07/2023 3:04 PM Ophthalmology, [place] [address] [address] [facility] [address] [place] [address] documented in this encounter Nursing Notes * Luz Maria Ruiz COA - 02/07/2023 2:38 PM EST OCT image(s) of right eye acquired and filed/scanned into chart. * Vida Perez TECH - 02/07/2023 2:22 PM EST Rehana Moran is a 78 year old female who presents for Chief Complaint Patient presents with Post-Op 1 week follow up s/p vitrectomy and posterior capsulotomy right eye on 01/30/2023. History of vitreous opacities OD, BRVO with ME OD and history of purulent endophthalmitis OD, resolved. 2023 (in office), Visit date not found (telemedicine) Has your medical history changed since your last office visit? Yes, on Prednisone 20 mg for flare up right knee and has a sinus headache. She currently states her vision is not quite as clear as it was in my right eye. It feels like there is a film and she has a few floaters. She continues Prednisolone and Ofloxacin QID OD as directed. Are you diabetic? NO. Are you being [...] Team (Late st Contact Info) Description 02/12/2023 11:30 AM EST Cardiac Studies Cardiology [address] [place] [address] [place], Pacer Clinic [facility] [address] [facility] [place] [address] 02/12/2023 4:15 PM EST Imaging Radiology [facility] [address] [place] [address] 02/13/2023 10:30 AM EST Office Visit Ophthalmology, [facility] [address] [facility] [place] [address] Pedro Tinsley, [address] [place] [address] 02/26/2023 8:00 AM EST Office Visit Cardiology, [facility] [address] [place] [address] Shira Lu CRNP [address] [place] [address] [place] [phone] 03/06/2023 10:40 AM EST Office Visit Family Medicine [address] [place] [phone] Rafa Bergman MD [address] [place] [address] [place] [address] 03/12/2023 11:00 AM EST Nurse Only Ancillary [address] [place] [address] [place], Nurse Annual [address] [place] [address] 04/30/2023 10:15 AM EST Office Visit Dermatology [facility] [address] [place], [place] [address] Guy Trivedi MD [address] [place], [place] [address] 05/16/2023 10:15 AM EST Hospital Encounter ENDO [facility], Endoscopy Room [facility] [address] [place] [phone] Nahun Hong MD [address] [place] [address] 05/16/2023 10:15 AM EST - 05/16/2023 10:45 AM EST Surgery ENDO [facility], Endoscopy Room [facility] [address] [place] [phone] Nahun Hong MD [address] [place] [address] COLONOSCOPY FLEXIBLE PROXIMAL DIAGNOSTIC 07/05/2023 8:40 AM EDT Office Visit Rheumatology [address] [place] [phone] Deangelo Holley MD [address] [employer] [place], [place] [address] Scheduled Procedures Name Priority Associated Diagnoses Date/Ti me COLONOSCOPY FLEXIBLE PROXIMAL DIAGNOSTIC Colon cancer screening 05/16/2023 10:15 AM EST Health Maintenance Due Date Last Done Comments DTaP,Tdap,and Td Vaccines (2 - Td or Tdap) 11/02/2017 11/03/2007 CKD PHOS USE SMARTSET 30619 04/19/202204/01, 11/27/2019, 11/21/2018, Additional history exists Depression Screening 07/17/2022 07/17/2021 GFR 09/25/2022 03/27/2022, 03/02, 10/18/2021, Additional history exists COVID-19 Vaccine ( season) 2022 02/05/2022, 08/02/2021, 02/28/2021, Additional history exists Influenza Vaccine (FLU shot) (#1) 2022 01/30/2022, 12/28/2020, 12/31/2019, Additional history exists Albumin/Creatinine Ratio 03/21/2023 022, 04/19/2021, 12/31/2017, Additional history exists HbA1c 03/21/2023 03/21/2022, 04/01, 10/06/2020, Additional history exists CKD HGB USE SMARTSET 73809 04/24/202304/24, 04/24/2022, 03/27/2022, Additional history exists TSH 05/22/2023 05/22/2022, 03/02, 04/19/2021, Additional history exists DXA Scan 07/18/2024 07/18/2022, 12/01, 05/09/2017, Additional history exists Hepatitis B Completed 03/18/2009, 05/30, 05/12/2008 Pneumococcal Vaccine: 65+ Years Completed 03/28/2015, 03/20/2010, 11/15/2004 COLONOSCOPY-EVERY 5 YRS AGES 18-100 Discontinued 02/27/2017, 02/27/2017, 10/17/2004 Zoster Vaccines Completed 06/12/2021, 02/01, 11/04/2012 VITAMIN D LEVEL ONCE IN A LIFETIME-USE SMARTSET# 76907 Completed 11/06/2021, 12/28/2019, 06/24/2017, Additional history exists GARDASIL-HPV IMMUNIZATION SERIES Aged Out No longer eligible based on patient's age to complete this topic MENINGOCOCCAL (MENACTRA/MENVEO) Aged Out No longer eligible based on patient's age to complete this topic documented as of this encounter Medical Devices Implanted Type Area Trawl Net Maker Device Identifier Shelf Expiration Date Model / Serial / Lot Lens Intraoc 21.5 - [id number] - [id number] Implanted:Qty: 1 on 05/12/2019 by Yury Brady MD at OR [facility] Right: Eye [employer] 12/30/2023 [id number] / [id number] / [id number] Lens Intraoc 22.5 - [id number] - [id number] Implanted:Qty: 1 on 04/05/2020 by Yury Brady MD at OR [facility] Left: Eye [employer] 09/28/2024 [id number] / [id number] / [id number] documented as of this encounter Visit Diagnoses Diagnosis Vitreous opacities of right eye- Primary 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 Purulent endophthalmitis, unspecified Nevus of choroid of right eye Colon cancer screening Special screening for malignant neoplasms, colon documented in this encounter Advance Directives Documents on File Type Date Recorded 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
--- OUTSIDE RECORDS SUMMARY | 2023-02-24 09:18 | External Medical Summary | Summary of Care ---
Author Name Unknown Organization [facility] Address [address] [facility] [place] [address] Phone [phone] Care Team Providers Care Fire Sprinkler Installer Name Role Phone Rafa Bergman MD Primary Care Provide r Encounter Details Date Type Department Care Team (Late st Contact Info) Description 02/06/2023 Result Scan Unspecified Department Charles Ortega O, DO [address] [place] [address] <No scans attached> Allergies Active Allergy Reactions Criticality Noted Date [...] DAY 45 Tablet 3 01/14/2023 Active Nystatin 926376 UNIT/ML Mouth/Throat SuspensionIndicati ons:Thrush Swish and swallow 5 mL in the morning and 5 mL at noon and 5 mL in the evening and 5 mL before bedtime. For thrush.. 240 mL 1 01/21/2023 02/20/2023 Active Pantoprazole Sodium 40 MG Oral Tablet Delayed Release (Protonix) TAKE ONE TABLET BY MOUTH IN THE MORNING 90 Tablet 1 01/27/2023 Active Hospital, Clinic, or Other Facility Administered [...] 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 History of [place] (myocardial infarction) 11/27/2022 History of pulmonary embolism [...] S/P angioplasty with stent 11/27/2018 Atherosclerosis of [place] ronary artery of [place] heart without angina pectoris 07/08/2018 Arthritis of [...] Resolved Date Atherosclerosis of coronary artery of [place] heart without angina pectoris 09/10/2022 10/31/2022 Hypothyroidism [...] filter 02/28/2015 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 [address] [place] [address] Brian Gagnon DO [address] [facility] [place] [address] Nurse Екатерина Ophthalmology [address] [place] [address] 02/12/2023 11:30 AM EST Cardiac Studies Cardiology [address] [place] [address] [place] [facility] [address] [facility] [place] [address] 02/12/2023 4:00 PM EST Imaging Radiology [facility] 1st [facility] [address] [facility] [place] [address] 02/13/2023 10:30 AM EST Office Visit Ophthalmology, [facility] [address] [facility] [place] [address] Pedro Tinsley, DO [address] [place] [address] 02/26/2023 8:00 AM EST Office Visit Cardiology, [facility] [address] [place] [address] Shira Lu CRNP [address] [place] [phone] 03/06/2023 10:40 AM EST Office Visit Family Medicine [address] [place] [phone] Rafa Bergman MD [address] [place] [address] [place] [address] 04/30/2023 10:15 AM EST Office Visit Dermatology [facility] [address] [place] [address] Guy Trivedi MD [address] [place], [place] [address] 05/16/2023 10:15 AM EST Hospital Encounter ENDO [facility], Endoscopy Room [facility] [address] [place] [phone] Nahun Hong MD [address] [place] [address] 05/16/2023 10:15 AM EST - 05/16/2023 10:45 AM EST Surgery ENDO [facility], Endoscopy Room [facility] [address] [place] [phone] Nahun Hong MD [address] [place] [address] COLONOSCOPY FLEXIBLE PROXIMAL DIAGNOSTIC 07/05/2023 8:40 AM EDT Office Visit Rheumatology [address] [place] [phone] Deangelo Holley MD [address] [facility], [place] [address] Scheduled Procedures Name Priority Associated Diagnoses Date/Ti me COLONOSCOPY FLEXIBLE PROXIMAL DIAGNOSTIC Colon cancer screening 05/16/2023 10:15 AM EST Health Maintenance Due Date Last Done Comments DTaP,Tdap,and Td Vaccines (2 - Td or Tdap) 11/02/2017 11/03/2007 CKD PHOS USE SMARTSET 47476 04/19/202204/01, 11/27/2019, 11/21/2018, Additional history exists Depression Screening 07/17/2022 07/17/2021 GFR 09/25/2022 03/27/2022, 03/02, 10/18/2021, Additional history exists COVID-19 Vaccine ( season) 2022 02/05/2022, 08/02/2021, 02/28/2021, Additional history exists Influenza Vaccine (FLU shot) (#1) 2022 01/30/2022, 12/28/2020, 12/31/2019, Additional history exists Albumin/Creatinine Ratio 03/21/2023 022, 04/19/2021, 12/31/2017, Additional history exists HbA1c 03/21/2023 03/21/2022, 04/01, 10/06/2020, Additional history exists CKD HGB USE SMARTSET 21075 04/24/202304/24, 04/24/2022, 03/27/2022, Additional history exists TSH 05/22/2023 05/22/2022, 03/02, 04/19/2021, Additional history exists DXA Scan 07/18/2024 07/18/2022, 12/01, 05/09/2017, Additional history exists Hepatitis B Completed 03/18/2009, 05/30, 05/12/2008 Pneumococcal Vaccine: 65+ Years Completed 03/28/2015, 03/20/2010, 11/15/2004 COLONOSCOPY-EVERY 5 YRS AGES 18-100 Discontinued 02/27/2017, 02/27/2017, 10/17/2004 Zoster Vaccines Completed 06/12/2021, 02/01, 11/04/2012 VITAMIN D LEVEL ONCE IN A LIFETIME-USE SMARTSET# 67238 Completed 11/06/2021, 12/28/2019, 06/24/2017, Additional history exists GARDASIL-HPV IMMUNIZATION SERIES Aged Out No longer eligible based on patient's age to complete this topic MENINGOCOCCAL (MENACTRA/MENVEO) Aged Out No longer eligible based on patient's age to complete this topic documented as of this encounter Medical Devices Implanted Type Area Can Tester Device Identifier Shelf Expiration Date Model / Serial / Lot Lens Intraoc 21.5 - [id number] - [id number] Implanted:Qty: 1 on 05/12/2019 by Yury Brady MD at OR [facility] Right: Eye [employer] 12/30/2023 [id number] / [id number] / [id number] Lens Intraoc 22.5 - [id number] - [id number] Implanted:Qty: 1 on 04/05/2020 by Yury Brady MD at OR [facility] Left: Eye [employer] 09/28/2024 [id number] / [id number] / [id number] documented as of this encounter Procedures Procedure Name Priority Date/Time Associated Diagnosis Comments CARDIOLOGY SCANNED RESULT 02/06/2023 documented in this encounter Results * CARDIOLOGY SCANNED RESULT (02/06/2023) 02/06/2023 Charles Ortega DO OTHER documented in this encounter Advance Directives Documents on File Type Date Recorded 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
--- OUTSIDE RECORDS SUMMARY | 2023-02-24 09:19 | External Medical Summary | Summary of Care ---
Author Name Unknown Organization [facility] Address [address] [place] [facility] [place] [address] Phone [phone] Care Team Providers Care Career Orientation Teacher Name Role Phone Rafa Bergman MD Primary Care Provide r Reason for Visit * Reason Comments Emergency Department Encounter Details Date Type Department Care Team (Late st Contact Info) Description 01/21/2023 4:00 PM EDT Office Visit Family Medicine [address] [place] [phone] Nicol Ferguson MD [address] [place] [address] [place] [phone] Thrush*; Chronic maxillary sinusitis; Chest pain, unspecified type; History of UT (myocardial infarction); S/P placement of cardiac pacemaker; History of pulmonary embolism; Hypertensive kidney disease with stage 3a chronic kidney disease Allergies Active Allergy Reactions Criticality Noted Date Comments Colchicine Diarrhea 06/16/2018 Daptomycin 01/05/2015 Shortness of breath Imipenem Edema airway High 01/05/2015 Metoprolol Low 01/23/2021 Other reaction(s): fatigue Zoledronic Acid 04/24/2012 Myalgias, fever, chills, vomiting x 2 days Sulfa Antibiotics 12/22/2002 Bactrim--itchy all over, eyes swollen documented as of this encounter (statuses as of 01/21/2023) Medications Medication Sig Dispensed Refills Start Date [...] 10 Tablet 0 01/21/2023 01/26/2023 Active Nystatin [id number] UNIT/ML Mouth/Throat SuspensionIndicati ons:Thrush Swish and swallow [...] as of this encounter (statuses as of 01/21/2023) Active Problems Problem Noted Date Diagnosed Date Purulent endophthalmitis of right eye 01/03/2023 Nevus of 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 History of UT (myocardial infarction) 11/27/2022 History of pulmonary embolism [...] S/P angioplasty with stent 11/27/2018 Atherosclerosis of [place] co ronary artery of [place] heart without angina pectoris 07/08/2018 Arthritis of [...] as of this encounter (statuses as of 01/21/2023) Resolved Problems Problem Noted Date Diagnosed Date Resolved Date Atherosclerosis of coronary artery of [place] heart without angina pectoris 09/10/2022 10/31/2022 Hypothyroidism [...] filter 02/28/2015 Atherosclerotic heart diseas e of [place] coronary artery with angina pectoris 11/2018 CKD (chronic kidney disease) stage 2, GFR 60-89 ml/min 03/12/2019 documented as of this encounter (statuses as of 01/21/2023) Immunizations Name Administration Dates Next Due COVID-19 [...] Sign Reading Time Taken Comments Blood Pressure 108/62 01/21/2023 3:49 PM EDT Pulse 60 01/21/2023 3:49 PM EDT Temperature 36.4 C (97.6 F) 01/21/2023 3:49 PM ED T Respiratory Rate 16 01/21/2023 3:49 PM EDT Oxygen Saturation - - Inhaled Oxygen Concentration - - Weight 75.8 kg (167 lb) 01/21/2023 3:49 PM EDT Height 160 cm (5' 3") 01/21/2023 3:49 PM EDT Body Mass Index 29.58 01/21/2023 3:49 PM EDT documented in this encounter Progress Notes * Nicol Ferguson MD - 01/21/2023 4:00 PM EDT Subjective: Rehana Moran is a 77 year old female. Chief Complaint Patient presents with Emergency Department HPI: Brief Clinical History Ms. Moran is a 77 year old woman last seen in Family Medicine 6 days ago (01-15-23). She has h/o Chronic kidney disease, stage 3a (HCC), CKD stage 3, heart arrhythmia, heart failure, Hypertensive kidney disease with stage 3a chronic kidney disease (HCC), Other pulmonary embolism with acute cor pulmonale (HCC), Tachy-chintan syndrome (HCC), and vascular disease complications. Was in [facility] ED 01/16/23 with substernal chest pressure that occurred while sitting in the evening shortly after taking Sudafed for sinus congestion. Lasted for a while so she went to the ED. In the ED, BP was normal. WBC slightly elevated at 12. Troponin was negative and CXR was normal. Did not have any chest pain while in the ED. Chest CTA was discussed but patient declined. She has not missed doses of her Eliquis that she takes for h/o DVT/PE Was seen here 01/15/23 for a sinus infection and given Levaquin. Is almost done with the antibioticbut still feeling poorly. Has a headache and sinus pressure. Has a lot of postnasal sinus drainage but not blowing much mucus from her nose. No fever or chills. Was taking a lot of OTC cold medications at the time she got the chest pressure. Does have allergies that are worse during the spring and s ummer. Took some Sudafed today and the chest pressure came back briefly. Does use Flonase, Elke,and saline. Has bad taste in her mouth and throat is sore. Is scheduled for CT of the sinuses in January due to recurrent sinus infections. Has not seen ENT. Is scheduled for eye surgery 01/30/23. Results for orders placed or performed during the hospital encounter of 11/17/22 MICROBIOLOGY, REQUEST FOR SEQUENCING Result Value Ref Range Microbiology Sequencing Request Sequencing not indicated. CULTURE, BODY FLUID, AEROBIC AND ANAEROBIC Result Value Ref Range Culture Growth Two colonies Staphylococcus, coagulase negative (AA) Stain Description No polymorphonuclear leukocytes seen Stain Description No organisms seen Susceptibility Staphylococcus, coagulase negative - MICROBROTH DILUTIONS Clindamycin Susceptible Erythromycin Susceptible Oxacillin* Resistant * Oxacillin/Methicillin resistant Staphylococci are considered clinically resistant to all Beta-lactam (Penicillin and Cephalosporin) antibiotics. Quinolone antibiotics should also not be used for Staphylococci that are Oxacillin resistant. Penicillin G Resistant Tetracycline Susceptible Trimeth/Sulfamethoxazole Resistant Vancomycin Susceptible *Note: Due to a large number of results and/or encounters for the requested time period, some results have not been displayed. A complete set of results can be found in Results Review. PHM: Patient Active Problem List Diagnosis Code Senile [...] Arthritis of left ankle M19.072 Atherosclerosis of [place] coronary artery of [place] heart without angina pectoris I25.10 S/P angioplasty [...] placement of cardiac pacemaker Z95.0 History of UT (myocardial infarction) I25.2 History of pulmonary embolism [...] every 6 hours as needed for Pain. Fexofenadine HCl 60 MG Oral Tablet (ELKE) Take 1 Tablet by mouth in the morning. CoQ10 100 MG Oral Capsule Take by [...] needed for loose stool 30 Capsule 3 Pantoprazole Sodium 40 MG Oral Tablet Delayed Release (Protonix) TAKE 1 TABLET BY MOUTH EVERY MORNING (Patient taking differently: 1 Tablet in the morning and 1 Tablet before bedtime.) 90 Tablet 1 Allopurinol 300 MG Oral Tablet (Zyloprim) take 1 and 1/2 tablets daily (Patient taking differently:Take by mouth. Take 300 mg in the AM, and 1/2 tab (150 mg) in the PM.) 135 Tablet 1 Famotidine 20 MG Oral Tablet (Pepcid) take 1 tablet in the morning and 1 tablet before bedtime 180 Tablet 1 Eliquis 5 MG Oral Tablet (Apixaban) TAKE ONE TABLET BY MOUTH TWICE DAILY 180 Tablet 1 Ondansetron HCl 4 MG Oral Tablet Take 1 Tablet by mouth every 6 hours as needed for Nausea. 30 Tablet 0 Saccharomyces boulardii 250 MG Oral Packet Take 250 mg by mouth daily. dilTIAZem HCl ER 360 MG Oral Tablet Extended Release 24 Hour TAKE ONE TABLET BY MOUTH EVERY DAY 90 Tablet 3 Moxifloxacin HCl 0.5 % Ophthalmic Solution (Vigamox) Instill 1 Drop into the right eye 6 times a day. 3 mL 1 prednisoLONE Acetate 1 % Ophthalmic Suspension (Pred Forte) Instill 1 Drop into the right eye 6 times a day. 15 mL 1 Metamucil 28.3 % Oral Powder (Psyllium) Take by mouth at bedtime as needed. Per directions on label. predniSONE 10 MG Oral Tablet (Deltasone) Take 5 tabs for 2 days, 4 tabs for 2 days, 3 tabs for 2 days, 2 tabs for 2 days 1 tab for 2 days 30 Tablet 0 predniSONE 20 MG Oral Tablet (Deltasone) Take 1 Tablet by mouth in the morning. Take 0.5 tablet by mouth in the morning as needed for gout flares.. (Patient taking differently: Take 0.25 Tablets by mouth in the morning. Take 0.5 tablet by mouth in the morning as needed for gout flares..) 90 Tablet 1 predniSONE 5 MG Oral Tablet (Deltasone) TAKE ONE TABLET BY MOUTH EVERY DAY 30 Tablet 6 Ofloxacin 0.3 % Ophthalmic Solution (Ocuflox) Instill 1 Drop into the right eye in the morning and 1 Drop at noon and 1 Drop in the evening and 1 Drop before bedtime. Begin 2 days prior to scheduled surgery.. 5 mL 0 Dicyclomine HCl 10 MG Oral Capsule (Bentyl) take 1 capsule as needed in the morning, 1 capsules as needed at noon, 1 capsule as needed in the evening and 1 capsule as needed before bedtime for pain or gas. take for abdominal pain. 120 Capsule 0 Atenolol 25 MG Oral Tablet (Tenormin) TAKE 1/2 TABLET BY MOUTH EVERY DAY 45 Tablet 3 levoFLOXacin 500 MG Oral Tablet Take 1 Tablet by mouth in the morning for 10 days. until gone.. 10 Tablet 0 Current Facility-Administered Medications Medication Dose Route Frequency Provider Last Rate Last Admin Aflibercept (Eylea) intraviteal prefilled syringe 2 mg 2 mg Intravitreal PRN Pedro Tinsley DO 2 mg at 11/13/22 1525 ROPivacaine (Naropin) inj 1.5 mg 1.5 mg Injection PRN Pedro Tinsley, DO 1.5 mg at 11/13/22 1525 Past Medical History: Diagnosis Date Allergic rhinitis Atherosclerotic heart disease of [place] coronary artery with angina pectoris ([facility]) Benign neoplasm of skin Benign paroxysmal vertigo 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 10/28/2013 Chronic sinusitis 10/28/2013 CKD (chronic kidney disease) stage 2, GFR 60-89 ml/min Degenerative disc disease, cervical 05/18/2016 Derangement of meniscus right knee Diverticulitis of colon DVT (deep venous thrombosis) ([facility]) 02/28/2015 Dyslipidemia, goal LDL below 100 09/15/2013 [...] rt shoulder NSTEMI (non-ST elevated myocardial infarction) ([facility]) 04/28/2018 [facility], cathed and LAD stented with AMIE, RCA [...] to hypertension, elevated TSH, small pericardial effusion [facility] Pericarditis as complication of acute myocardial infarction 05/15/2018 [facility] colchicine not tolerated well. Pericarditis as complication of acute myocardial infarction 06/05/2018 [facility] steroids Postmenopausal atrophic vaginitis 09/15/2013 Presence of [...] knee ARTHROPLASTY KNEE TOTAL 11/11/2014 left knee- [facility]- Dr. Lopez CARDIAC CATH-CARDIOLOGY ONLY 04/28/2018 AMIE to LAD, PCI to RCA COLONOSCOPY 09/2004 diverticulosis COLONOSCOPY, DIAGNOSTIC (RECTUM) 02/27/2017 diverticulosis, repeat 5 yrs/COLONOSCOPY FLEXIBLE PROXIMAL DIAGNOSTIC performed by Ford Pantoja MD at ENDOSCOPY [facility] CTA CHEST NON-CORONARY W CONTRAST 11/13/2018 no [...] Tinsley IR FILTER PLACEMENT VENA CAVA 10/2014 [facility] MISCELLANEOUS ORDER ([facility] ONLY) 12/02/2013-12/02/2014 LUCENTIS 0.5MG CONSENT SIGNED OD; DR TINSLEY MISCELLANEOUS ORDER ([facility] ONLY) Right 01/12/2015-01/13/2016 LUCENTIS 0.5MG CONSENT OD SIGNED; DR LAUREANO ADAN ORDER ([facility] ONLY) Right 10/21/2015-10/20/2016 EYLEA OD CONSENT SIGNED, Dr. Laureano ADAN ORDER ([facility] ONLY) Right 11/30/2016-11/30/2017 Eylea OD consnet signed, Dr.Cessna MATHEWSCELLYAMIL ORDER ([facility] ONLY) Right 01/30/18-01/30/19 EYLEA OD CONSENT SIGNED, Dr. Laureano ADAN ORDER ([facility] ONLY) ACT 112 signed, 06/12/2018 MISCELLANEOUS ORDER ([facility] ONLY) Right 02/17/2019-02/18/2020 Eylea OD Consent signed, Dr.Cessna ADAN ORDER ([facility] ONLY) Right EYLEA OD CONSENT SIGNED DR. TINSLEY 03/22/20-03/22/21 MRI KNEE WO CONTRAST 02/23/2009 medial menisus tear, OA, right knee, 611 MRI OTHER (INFORMATION) Right EYLEA OD CONSENT SIGNED, Dr. Tinsley (Exp 03-29-2022) OTHER (INFORMATION) Bilateral EYLEA OU CONSENT DR. TINSLEY/MAYNOR EXP. 04/18/23 REMOVAL OF TONSILS, UNDER AGE 12 REMOVE CATARACT, INSERT LENS PROSTH Right 05/12/2019 right EXTRACAPSULAR CATARACT REMOVAL WITH INTRAOCULAR LENS performed by Yury Brady MD at OR [facility] REMOVE CATARACT, INSERT LENS PROSTH Left 04/05/2020 left EXTRACAPSULAR CATARACT REMOVAL WITH INTRAOCULAR LENS performed by Yury Brady MD at OR [facility] REPAIR BLADDER & VAGINA, CYSTOCELE 01/2001 Dr Amaya TOTAL ABD HYSTERECTOMY W/WO REMOVAL OF TUBE(S) 1986 Total Abd Hysterectomy with bilateral salpingo-oophorectomy US RENAL 12/31/2011 renal cyst, small post voiding residual VASC DUPLEX VENOUS LE BILAT 11/13/2018 no DVT Social History Socioeconomic History Marital status: Spouse name: N/A Number of children: 2 Years of education: Not on file Highest education level: Not on file Occupational History 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 Employer: [employer] Tobacco Use Smoking status: Never Smokeless tobacco: Never Tobacco comments: second hand smoke exposure - 10 years Vaping Use Vaping Use: Never used Substance and Sexual Activity Alcohol use: No Drug use: No Sexual activity: Not Currently Partners: Male control/protection: Surgical Comment: hysterectomy Other Topics Concern Service No Blood Transfusions Yes Comment: 10/2014 at [facility] Caffeine Concern No Occupational Exposure No Hobby Hazards No Sleep Concern Yes Stress Concern No Weight Concern No Special Diet No Comment: milk- none, takes calcium twice a day Back Care Not Asked Exercise Yes Comment: walks daily Bike Helmet Not Asked Seat Belt Yes Self-Exams Yes Social History Narrative 2000 - dx with prostate Ca 01/30 - had affair and left her 03/01 mother with dementia from strokes - recently in nursing care - monther 07/05 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 No known chemical/dust/absestos exposure. Social Determinants of Health Financial Resource Strain: Not on file Food Insecurity: No Food Insecurity (12/15/2018) Hunger Vital Sign Worried About Running Out of Food in the Last Year: Never true Ran Out of Food in the Last Year: Never true Transportation Needs: Not on file Physical Activity: Not on file Stress: Not on file Social Connections: Not on file Intimate Partner Violence: Not on file Housing Stability: Not on file Review of patient's allergies indicates: Allergen Reactions Imipenem Edema airway Colchicine Diarrhea Daptomycin Shortness of breath Reclast [Zoledronic Acid] Myalgias, fever, chills, vomiting x 2 days Sulfa Antibiotics Bactrim--itchy all over, eyes swollen Metoprolol Other reaction(s): fatigue Objective: BP 108/62 | Pulse 60 | Temp 36.4 C (97.6 F) | Resp 16 | Ht 1.6 m (5' 3") | Wt 75.8 kg (167 lb) | BMI 29.58 kg/m | BSA 1.84 m Physical Exam: General: alert, healthy, no distress, well nourished, and well developed Head: Normocephalic, No masses, lesions, tenderness or abnormalities Eye Exam: PERRLA, extraocular movements intact, conjunctiva are pink and non- injected, sclera clear Ears: External ears normal, Canals clear, TM's Normal Nose: no mucosal erythema, no mucosal edema, no purulent discharge, pale mucosa, sinus tenderness Oropharynx: no exudate, no erythema, lips, buccal mucosa, and tongue normal, mucous membranes are moist, and thrush Neck: supple, no adenopathy, no bruits Heart: regular rate & rhythm, no murmur, and no gallops Lungs: chest symmetric with normal AP diameter, no chest deformities noted, no chest wall tenderness, lungs clear to auscultation Extremities: no edema, no clubbing, no cyanosis Extensive ROS Constitutional (f/c/wt/vision/hearing): see above hpi Resp (cough/sob/robledo): Negative CV (cp/palp/fluttering/diaphoresis/robledo/pnd):see above hpi GI (n/v/d/hrtburn): Negative Endo (hair/cold or heat intol/ 3 p's): Negative Neuro (shaking/weak/fatigu/parasthesi/): Negative Skin (rash/easy bruis/xerosis): Negative Psy (si/hi/halluc/): Negative (nocturia/hesit/drib/sexual review): Negative Lymph (swollen glands/b sx's/: Negative ASSESSMENT: Thrush (Primary) - Nystatin [id number] UNIT/ML Mouth/Throat Suspension; Swish and swallow 5 mL in the morning and 5 mL at noon and 5 mL in the evening and 5 mL before bedtime. For thrush.. Chronic maxillary sinusitis - predniSONE 20 MG Oral Tablet (Deltasone); Take 2 Tablets by mouth in the morning for 5 days. Chest pain, unspecified type--work up in ED negative for acute coronary syndrome. Return to ED if chest pain returns. Recommend avoiding Sudafed and other OTC medications other than Coricidin HBP. History of UT (myocardial infarction) S/P placement of cardiac pacemaker History of pulmonary embolism--continue Eliquis. Hypertensive kidney disease with stage 3a chronic kidney disease--blood pressure well controlled. Check-out note: Sched Cardiology follow up. ER 01/16 chest tightness PLAN: Continue present medication(s): Begin medication(s): Nystatin swish and swallow for thrush and prednisone for sinus congestion likely allergic Patient education: Complete Levaquin as prescribed. Does not appear to have active bacterial sinusitis at this time so feel Levaquin is adequately treating. Describing ongoing sinus pressure and headache but no purulent drainage. Has thrush that could explain the bad taste and sore throat. Recommend keeping appointment as scheduled for CT of the sinuses due to recurrent sinus infections. Needs to be scheduled with cardiology for follow-up as well. Follow up: As scheduled. Nicol Ferguson MD documented in this encounter Nursing Notes * Carol Cadet RN - 01/21/2023 3:49 PM EDT [facility] ER Follow up 01/16/23 for chest tightness. Was not a UT, pt was taking a lot of sudafed and other meds for headache. Pt is finishing antibiotics for a sinus infection from Arlene, but she still has symptoms. Would like more antibiotics and maybe prednisone documented in this encounter Plan of Treatment Upcoming Encounters Date Type Department Care Team (Late st Contact Info) Description 01/30/2023 8:00 AM EDT Hospital Encounter OR [facility], Operating Room, [facility] 3rd Floor [address] [facility] [place] [address] Brian Gagnon, DO [address] [place] [id number] 01/30/2023 8:00 AM EDT - 01/30/2023 9:38 AM EDT Surgery OR [facility], Operating Room, [facility] 3rd Floor [address] [facility] [place] [address] Brian Gagnon, DO [address] [place] [address] RIGHT VITRECTOMY MECHANICAL PARS PLANA APPROACH 2023 9:45 AM EDT Office Visit Ophthalmology, [facility] [address] [place] [address] Brian Gagnon, DO [address] [place] [address] Nurse Екатерина Ophthalmology [address] [place] [address] 02/07/2023 2:00 PM EST Office Visit Ophthalmology, [facility] [address] [place] [address] Brian Gagnon, DO [address] [place] [address] Nurse Екатерина Ophthalmology [address] [place] [address] 02/12/2023 11:30 AM EST Cardiac Studies Cardiology [address] [place] [phone] [facility] [address] [facility] [place] [address] 02/12/2023 4:00 PM EST Imaging Radiology [facility] 1st [facility] [place] [address] [facility] [place] [address] 02/13/2023 10:30 AM EST Office Visit Ophthalmology, [facility] [address] [facility] [place] [address] Pedro Tinsley, DO [address] [facility] [place] [address] 02/26/2023 8:00 AM EST Office Visit Cardiology, [facility] [address] [facility] [place] [address] Shira Lu CRNP [address] [place] [phone] 03/06/2023 10:40 AM EST Office Visit Family Medicine [address] [place] [phone] Rafa Bergman MD [address] [place] [address] [place] [address] 04/30/2023 10:15 AM EST Office Visit Dermatology [facility]a [place] [address] [place] [address] Guy Trivedi MD [address] [place] [address] 05/16/2023 10:15 AM EST Hospital Encounter [facility], Endoscopy Room [facility] [address] [place] [phone] Nahun Hong MD [address] [place] [address] 05/16/2023 10:15 AM EST - 05/16/2023 10:45 AM EST Surgery ENDO [facility], Endoscopy Room [facility] [address] [place] [phone] Nahun Hong MD [address] [place] [address] COLONOSCOPY FLEXIBLE PROXIMAL DIAGNOSTIC 07/05/2023 8:40 AM EDT Office Visit Rheumatology [address] [place] [phone] Deangelo Holley MD [address] [place] [address] [place] [address] Scheduled Procedures Name Priority Associated Diagnoses Date/Ti me VITRECTOMY MECHANICAL PARS PLANA APPROACH Vitreous floaters of right eye 01/30/2023 8:00 AM EDT COLONOSCOPY FLEXIBLE PROXIMAL DIAGNOSTIC Colon cancer screening 05/16/2023 10:15 AM EST Health Maintenance Due Date Last Done Comments DTaP,Tdap,and Td Vaccines (2 - Td or Tdap) 11/02/2017 11/03/2007 CKD PHOS USE SMARTSET 31763 04/19/202204/01, 11/27/2019, 11/21/2018, Additional history exists Depression Screening 07/17/2022 07/17/2021 GFR 09/25/2022 03/27/2022, 03/02, 10/18/2021, Additional history exists COVID-19 Vaccine ( season) 2022 02/05/2022, 08/02/2021, 02/28/2021, Additional history exists Influenza Vaccine (FLU shot) (#1) 2022 01/30/2022, 12/28/2020, 12/31/2019, Additional history exists Albumin/Creatinine Ratio 03/21/2023 022, 04/19/2021, 12/31/2017, Additional history exists HbA1c 03/21/2023 03/21/2022, 04/01, 10/06/2020, Additional history exists CKD HGB USE SMARTSET 81578 04/24/202304/24, 04/24/2022, 03/27/2022, Additional history exists TSH 05/22/2023 05/22/2022, 03/02, 04/19/2021, Additional history exists DXA Scan 07/18/2024 07/18/2022, 12/01, 05/09/2017, Additional history exists Hepatitis B Completed 03/18/2009, 05/30, 05/12/2008 Pneumococcal Vaccine: 65+ Years Completed 03/28/2015, 03/20/2010, 11/15/2004 COLONOSCOPY-EVERY 5 YRS AGES 18-100 Discontinued 02/27/2017, 02/27/2017, 10/17/2004 Zoster Vaccines Completed 06/12/2021, 02/01, 11/04/2012 VITAMIN D LEVEL ONCE IN A LIFETIME-USE SMARTSET# [id number] Completed 11/06/2021, 12/28/2019, 06/24/2017, Additional history exists GARDASIL-HPV IMMUNIZATION SERIES Aged Out No longer eligible based on patient's age to complete this topic MENINGOCOCCAL (MENACTRA/MENVEO) Aged Out No longer eligible based on patient's age to complete this topic documented as of this encounter Medical Devices Implanted Type Area Deckhand Shrimp Boat Device Identifier Shelf Expiration Date Model / Serial / Lot Lens Intraoc 21.5 - [id number] - [id number] Implanted:Qty: 1 on 05/12/2019 by Yury Brady MD at OR [facility] Right: Eye [employer] 12/30/2023 [id number] / [id number] / [id number] Lens Intraoc 22.5 - [id number] - [id number] Implanted:Qty: 1 on 04/05/2020 by Yury Brady MD at OR [facility] Left: Eye [employer] 09/28/2024 [id number] / [id number] / [id number] documented as of this encounter Visit Diagnoses Diagnosis Thrush- Primary Candidiasis of mouth Chronic maxillary sinusitis Chest pain, unspecified type History of UT (myocardial infarction) Old myocardial infarction S/P placement of cardiac pacemaker Cardiac pacemaker in situ History of pulmonary embolism Personal history of pulmonary embolism Hypertensive kidney disease with stage 3a chronic kidney disease Vitreous floaters of right eye Colon cancer screening Special screening for malignant neoplasms, colon documented in this encounter Advance Directives Documents on File Type Date Recorded Patient Precipitate Washer Expl anation Advance Directives and Living Will 03/11/2018 Krissy Urban ADVANCE DIR ECTIVE Healthcare Agents on File Name Relationship Healthcare Agent Relationship Communication Krissy Ordonez Adult Child Health Care Agen t (per Health Care Power of [employer] Lease Pumper document) Guille Urban Adult Child Health Care Agen t (per Health Care Power of [employer] Lease Pumper document) Care Teams Career 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
--- OUTSIDE RECORDS SUMMARY | 2023-02-24 09:19 | External Medical Summary | Summary of Care ---
Author Name Unknown Organization [facility] Address [address] [facility] [place] [address] Phone [phone] Care Team Providers Care Liquid Yeast Supervisor Name Role Phone Rafa Bergman MD Primary Care Provide r Reason for Visit * Reason Comments eRx-Medication Refill Encounter Details Date Type Department Care Team Description 01/04/2023 Refill Family Medicine [address] [place] [id number] Rafa Bergman MD [address] [place] [address] [place] [address] Diarrhea, unspecified type; Irritable bowel syndrome with both constipation and diarrhea Allergies Active Allergy Reactions Severity Noted Date Comments Colchicine Diarrhea 06/16/2018 Daptomycin 01/05/2015 Shortness of breath Imipenem Edema airway High 01/05/2015 Metoprolol Low 01/23/2021 Other reaction(s): fatigue Zoledronic Acid 04/24/2012 Myalgias, fever, chills, vomiting x 2 days Sulfa Antibiotics 12/22/2002 Bactrim--itchy all over, eyes swollen documented as of this encounter (statuses as of 01/08/2023) Medications Medication Sig Dispensed Refills Start Date [...] Pain, Chest. 25 Tablet 1 2 Active Atenolol 25 MG Oral Tablet (Tenormin) take 1/2 tablet daily 30 Tablet 5 2 Active Terconazole 0.8 % Vaginal Cream [...] loose stool 30 Capsule 3 3 Active Pantoprazole Sodium 40 MG Oral Tablet Delayed Release (Protonix) TAKE 1 TABLET BY MOUTH EVERY MORNING 90 Tablet 1 3 Active Additional Information Patient taking differently: 40 [...] a day. 3 mL 1 3 Active Additional Information Patient not taking.Reported on 01/03/2023 prednisoLONE Acetate 1 % Ophthalmic Suspension (Pred Forte) Instill 1 Drop into the right eye 6 times a day. 15 mL 1 3 Active Additional Information Patient not taking.Reported on 01/03/2023 Metamucil 28.3 % Oral Powder (Psyllium) Take [...] abdominal pain. 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 History of MT (myocardial infarction) History of pulmonary embolism 11/27/2022 Other pulmonary embolism with acute cor pulmonale 10/01/2022 S/P placement of cardiac pacemaker 10/01 Medical home patient encounter 3 Tachy-chintan syndrome 09/10/2022 Gastro-esophageal reflux disease with es ophagitis, without bleeding 12/15/2021 Prediabetes 05/15/2021 Overview: Per Prediabetes protocol Chronic kidney disease, stage 3a 021 Overview: Per CKD protocol History of basal cell carcinoma 07/07/19 21 Hypertensive kidney disease with stage 3 a chronic kidney disease 02/08/2020 Overview: Per CKD protocol - Per CKD protocol S/P angioplasty with stent 11/27/2018 Atherosclerosis of [place] co ronary artery of [place] heart without angina pectoris 07/08/2018 Arthritis of left ankle 11/06/2017 Deviated nasal septum 10/14/2017 Rhinitis, nonallergic 08/13/2017 Recurrent sinus infections 08/13/2017 History of DVT (deep vein thrombosis) Overview: Not on anticoagulation due to internal bleeding. Both DVT were provoked. H/O nonmelanoma skin cancer 01/02/2017 Vitamin B12 deficiency 05/12/2014 Retinal vein occlusion of right eye 10/01 Hypothyroidism (acquired) 09/15/2013 Dyslipidemia, goal LDL below 70 09/16/19 14 HTN, goal below 140/90 03/02/2013 Senile osteoporosis 05/14/2008 documented as of this encounter (statuses as of 01/08/2023) Resolved Problems Problem Noted Date Resolved Date Atherosclerosis of coronary artery of [place] heart without angina pectoris 09/10/2022 10/31/2022 Hypothyroidism 12/15/2021 03/07/2022 Hyperlipidemia 12/15/2021 03/07/2022 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 07/13/2019 02/11/2020 Overview: Per CKD protocol Hypertensive kidney disease with chronic kidney disease stage II 02/25/2019 07/16/2019 Overview: Per CKD protocol Old myocardial infarct 06/09/2018 3 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 05/23/2018 11/24/2018 NSTEMI (non-ST elevated myocardial infarction) 0 05/01/2018 06/09/2018 Degenerative disc disease, cervical 05/18/2016 01/02/2017 Kidney disease, chronic, stage III (GFR 30-59 ml /min) 09/05/2015 06/10/2018 Overview: Per CKD protocol #1 Retroperitoneal bleed 02/28/2015 05/24/2015 DVT (deep venous thrombosis) 02/28/201506/2016 Traumatic rupture of left posterior tibial tendo n 12/07/2014 05/24/2015 Vitamin D insufficiency 05/12/2014 01/03/20 Chronic sinusitis 10/28/2013 01/02/2017 Urinary frequency 09/15/2013 06/05/2016 Gastroesophageal reflux disease with esophagitis 09/15/2013 03/07/2022 Postmenopausal atrophic vaginitis 09/15/2013 12/31/2017 Allergic rhinitis 09/15/2013 08/13/2017 ADVANCE DIRECTIVE INFORMATION 04/23/2012 Overview: No, Advance Directive brochure given to patient at prior appointment. Kidney disease, chronic, stage III (GFR 30-59 ml /min) 10/20/2009 09/15/2013 Overview: Per CKD Protocol, #1 Intermittent asthma with reliever use up to twic e per week 10/18/2009 01/02/2017 Pulmonary embolism and [...] disaccharidase deficiency 02/19/2008 09/15/2013 Other osteoporosis without current pathological fracture 09/24/2005 03/02/2013 Overview: ICD-10 update of inactive term BENIGN KERRIE SKIN TRUNK 11/21/2004 09/15/2013 MALIG KERRIE SKIN ARM 09/05/2004 01/02/2017 Malignant neoplasm of skin of trunk 09/05/2004 01/02/2017 Overview: ICD-10 update of inactive term Mixed dyslipidemia 05/13/2003 04/29/2008 Overview: Resolved per Duplicate Protocol #2. Sebaceous hyperplasia, Rt forehead 10/05/97200109/15/2013 Irritated, inflamed seborrhe ic keratosis, Above rt angle of mandible 04/09/01 01/28/2002 09/15/2013 Major depressive disorder 01/12/20022013 Overview: ICD-10 update of inactive term Intradermal Nevus,right upper arm 200109/15/2013 new lesion- rt shoulder 11/03/2001 09/16/19 14 Prolapse of vaginal peterson 10/28/20002016 Overview: ICD-10 update of inactive term Viral warts 09/15/2013 Overview: ICD-10 update of inactive term Hypothyroidism 09/15/2013 Asthma with severity to be determined 08/27/2008 Overview: ICD-10 update of inactive term Mixed dyslipidemia 03/08/2009 Overview: Per Lipid Taxonomy. BENIGN PARXYSMAL VERTIGO 014 DIVERTICULITIS OF COLON 09/16/19 14 Primary osteoarthritis of knee 1 Derangement of meniscus 09/16/19 14 Presence of vena cava filter Atherosclerotic heart diseas e of [place] coronary artery with angina pectoris 07/08/2018 CKD (chronic kidney disease) stage 2, GFR 60-89 ml/min 03/12/2019 documented as of this encounter (statuses as of 01/08/2023) Immunizations Name Administration Dates Next Due COVID-19 [...] drink = 0.6 oz pur e alcohol) Food Insecurity Answer Date Recorded Within the past 12 months, y ou worried that your food would run out before you got money to buy more. Never true 12/18/2019 Within the past 12 months, t he food you bought just didn't last and you didn't have money to get more. Never true 12/18/2019 Sex Assigned at Date Recorded Not on file Job Start Date Occupation Industry Not on file Not on file Not on file documented as of this encounter Miscellaneous Notes * Telephone Encounter - Arianna Meneses MD - 01/08/2023 8:53 AM EDTSigned Prescriptions: Disp Refills Dicyclomine HCl 10 MG Oral Capsule (Bentyl)120 Ca*0 Sig: take 1 capsule as needed in the morning, 1 capsules as needed at noon, 1 capsule as needed in the evening and 1 capsule as needed before bedtime for pain or gas. take for abdominal pain. Authorizing Provider: ARIANNA MENESES * Telephone Encounter - Lindsey Yi CMA - 01/07/2023 10:47 AM EDTPending Prescriptions: Disp Refills Dicyclomine HCl 10 MG Oral Capsule [Pharma*120 Ca*0 Sig: take 1 capsule as needed in the morning, 1 capsules as needed at noon, 1 capsule as needed in the evening and 1 capsule as needed before bedtime for pain or gas. take for abdominal pain. * Telephone Encounter - Lindsey Yi CMA - 01/07/2023 10:46 AM EDT Pending Prescriptions: Disp Refills Dicyclomine HCl 10 MG Oral Capsule (Benty*120 Ca*0 Sig: take 1 capsule as needed in the morning, 1 capsules as needed at noon, 1 capsule as needed in the evening and 1 capsule as needed before bedtime for pain or gas. take for abdominal pain. Last Visit: 12/19/2022 (in office), Visit date not found (telemedicine) Next Visit: 01/15/2023 Last date the medication was ordered: 07/17/2021 Patient Active Problem List Diagnosis Code Senile [...] Arthritis of left ankle M19.072 Atherosclerosis of [place] coronary artery of [place] heart without angina pectoris I25.10 S/P angioplasty with stent Z95.820 Hypertensive kidney disease with stage 3a chronic kidney disease I12.9, N18.31 History of basal cell carcinoma Z85.828 Chronic kidney disease, stage 3a (HCC) N18.31 Prediabetes R73.03 Gastro-esophageal reflux disease with esophagitis, without bleeding K21.00 Tachy-chintan syndrome ([facility]) I49.5 Medical home patient encounter Z00.8 Other pulmonary embolism with acute cor pulmonale ([facility]) I26.09 S/P placement of cardiac pacemaker Z95.0 History of MT (myocardial infarction) I25.2 History of pulmonary embolism Z86.711 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 Labs: Lab Results Component Value Date/Time CREATININE 0.7 07/15/1996 11:28 AM CREATININE - [facility] 0.9 03/27/2022 10:44 AM CREATININE - [facility] 1.0 02/12/2020 08:32 AM CREATININE, RANDOM URINE - [facility] 161 03/21/2022 09:15 AM CREATININE, RANDOM URINE - [facility] 131 08/28/2019 04:32 PM CREATININE-OUTSIDE LAB 0.83 06/03/2018 12:00 AM Lab Results Component Value Date/Time POTASSIUM 4.5 07/15/1996 11:28 AM POTASSIUM - [facility] 4.2 03/27/2022 10:44 AM POTASSIUM - [facility] 4.2 02/12/2020 08:32 AM POTASSIUM-OUTSIDE LAB 4.2 06/03/2018 12:00 AM Lab Results Component Value Date/Time TSH - [facility] 2.20 05/22/2022 10:22 AM TSH - [facility] 3.11 02/01/2020 10:03 AM Lab Results Component Value Date/Time LDL (CALCULATED) 103. 07/15/1996 11:28 AM LDL CHOLESTEROL (CALCULATED) - [facility] 55 03/21/2022 09:15 AM LDL CHOLESTEROL (CALCULATED) - [facility] 27 04/19/2021 10:40 AM LDL CHOLESTEROL (CALCULATED) - [facility] 22 11/27/2019 08:12 AM LDL CHOLESTEROL (CALCULATED) - [facility] 58 12/19/2017 07:41 AM LDL CHOLESTEROL (DIRECT MEASURE) - [facility] NOT APPLICABLE 11/27/2019 08:12 AM LDL CHOLESTEROL (DIRECT MEASURE) - [facility] NOT APPLICABLE 12/19/2017 07:41 AM Lab Results Component Value Date/Time ALT 24 07/15/1996 11:28 AM ALT - [facility] 14 11/06/2021 09:17 AM ALT - [facility] 15 02/12/2020 08:32 AM ALT-OUTSIDE LAB 17 02/17/2015 12:00 AM Hemoglobin AIC Results: Lab Results Component Value Date/Time HEMOGLOBIN A1C - [facility] 5.7 (H) 03/21/2022 09:15 AM HEMOGLOBIN A1C - [facility] 6.2 (H) 04/19/2021 10:40 AM HEMOGLOBIN A1C - [facility] 6.1 (H) 10/06/2020 10:02 AM HEMOGLOBIN A1C - [facility] 5.7 08/27/2008 04:40 PM * Telephone Encounter - Interface, E-Rx Ss Inbound - 01/06/2023 9:15 AM EDT Pending Prescriptions: Disp Refills Dicyclomine HCl 10 MG Oral Capsule [Pharma*120 Ca*0 Sig: take 1 capsule as needed in the morning, 1 capsules as needed at noon, 1 capsule as needed in the evening and 1 capsule as needed before bedtime for pain or gas. take for abdominal pain. * Telephone Encounter - Gurmeet Nevarez - 01/04/2023 2:59 PM EDTPending Prescriptions: Disp Refills Dicyclomine HCl 10 MG Oral Capsule [Pharma*120 Ca*0 Sig: take 1capsule as needed in the morning, 1 capsules as needed at noon, 1 capsule as needed in the evening and 1 capsule as needed before bedtime for pain or gas. take for abdominal pain. documented in this encounter Plan of Treatment Upcoming Encounters Date Type Specialty Care Team Description 01/15/2023 Office Visit Family Medicine Arlene Wilhelm PA-C [address] [place] [address] [place] [address] 01/16/2023 Office Visit Ophthalmology Pedro Tinsley DO [address] [place] [phone] 02/12/2023 Cardiac Studies Cardiology [facility] [address] [place] [address] 02/22/2023 Office Visit Cardiology Charles Ortega DO [address] [place] [id number] 03/06/2023 Office Visit Family Medicine Rafa Bergman MD [address] [place] [address] [place] [address] 04/30/2023 Office Visit Dermatology Guy Trivedi MD [address] [place] [address], [place] [address] 05/16/2023 Hospital Encounter Endoscopy Nahun Hong MD [address] [place] [address] 05/16/2023 Surgery Endoscopy Nahun Hong MD [address] [place] [address] COLONOSCOPY FLEXIBLE PROXIMAL DIAGNOSTIC 07/05/2023 Office Visit Rheumatology Deangelo Holley MD [address] [address] Scheduled Procedures Name Priority Associated Diagnoses Date/Ti me COLONOSCOPY FLEXIBLE PROXIMAL DIAGNOSTIC Colon cancer screening 05/16/2023 10:15 AM EST Health Maintenance Due Date Last Done Comments DTaP,Tdap,and Td Vaccines (2 - Td or Tdap) 11/02/2017 11/03/2007 CKD PHOS USE SMARTSET 30188 04/19/202204/01, 11/27/2019, 11/21/2018, Additional history exists Depression Screening 07/17/2022 07/17/2021 GFR 09/25/2022 03/27/2022, 03/02, 10/18/2021, Additional history exists COVID-19 Vaccine ( season) 2022 02/05/2022, 08/02/2021, 02/28/2021, Additional history exists Influenza Vaccine (FLU shot) (#1) 2022 01/30/2022, 12/28/2020, 12/31/2019, Additional history exists Albumin/Creatinine Ratio 03/21/2023 022, 04/19/2021, 12/31/2017, Additional history exists HbA1c 03/21/2023 03/21/2022, 04/01, 10/06/2020, Additional history exists CKD HGB USE SMARTSET 16892 04/24/202304/24, 04/24/2022, 03/27/2022, Additional history exists TSH 05/22/2023 05/22/2022, 03/02, 04/19/2021, Additional history exists DXA Scan 07/18/2024 07/18/2022, 12/01, 05/09/2017, Additional history exists Hepatitis B Completed 03/18/2009, 05/30, 05/12/2008 Pneumococcal Vaccine: 65+ Years Completed 03/28/2015, 03/20/2010, 11/15/2004 COLONOSCOPY-EVERY 5 YRS AGES 18-100 Discontinued 02/27/2017, 02/27/2017, 10/17/2004 Zoster Vaccines Completed 06/12/2021, 02/01, 11/04/2012 VITAMIN D LEVEL ONCE IN A LIFETIME-USE SMARTSET# [id number] Completed 11/06/2021, 12/28/2019, 06/24/2017, Additional history exists GARDASIL-HPV IMMUNIZATION SERIES Aged Out No longer eligible based on patient's age to complete this topic MENINGOCOCCAL (MENACTRA/MENVEO) Aged Out No longer eligible based on patient's age to complete this topic documented as of this encounter Medical Devices Implanted Type Area Cake Icer Device Identifier Shelf Expiration Date Model / Serial / Lot Lens Intraoc 21.5 - [id number] - [id number] Implanted:Qty: 1 on 05/12/2019 by Yury Brady MD at OR [facility] Right: Eye [employer] 12/30/2023 [id number] / [id number] / [id number] Lens Intraoc 22.5 - [id number] - [id number] Implanted:Qty: 1 on 04/05/2020 by Yury Brady MD at OR [facility] Left: Eye [employer] 09/28/2024 [id number] / [id number] / [id number] documented as of this encounter Visit Diagnoses Diagnosis Diarrhea, unspecified type Irritable bowel syndrome with both constipation and diarrhea Colon cancer screening Special screening for malignant neoplasms, colon documented in this encounter Advance Directives Documents on File Type Date Recorded 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
--- OUTSIDE RECORDS SUMMARY | 2023-02-24 09:19 | External Medical Summary | Summary of Care ---
Author Name Unknown Organization [facility] Address [address] [facility] [address] Phone [phone] Care Team Providers Care Packerhead Machine Operator Name Role Phone Rafa Bergman MD Primary Care Provide r Reason for Visit * Reason Comments eRx-Medication Refill Encounter Details Date Type Department Care Team Description 01/12/2023 Refill Cardiology, [facility] [address] [place] [address] Juliann Ortega O, DO [address] [place] [address] HTN, goal below 140/90* Allergies Active Allergy Reactions Severity Noted Date Comments Colchicine Diarrhea 06/16/2018 Daptomycin 01/05/2015 Shortness of breath Imipenem Edema airway High 01/05/2015 Metoprolol Low 01/23/2021 Other reaction(s): fatigue Zoledronic Acid 04/24/2012 Myalgias, fever, chills, vomiting x 2 days Sulfa Antibiotics 12/22/2002 Bactrim--itchy all over, eyes swollen documented as of this encounter (statuses as of 01/14/2023) Medications Medication Sig Dispensed Refills Start Date [...] EVERY DAY 45 Tablet 3 3 Active Atenolol 25 MG Oral Tablet (Tenormin) take 1/2 tablet daily 30 Tablet 5 2 01/15/20 23 Discontinued Hospital, Clinic, or Other Facility [...] as of this encounter (statuses as of 01/14/2023) Active Problems Problem Noted Date 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 History of [place] (myocardial infarction) History of pulmonary embolism 11/27/2022 [...] S/P angioplasty with stent 11/27/2018 Atherosclerosis of [place] ronary artery of [place] heart without angina pectoris 07/08/2018 Arthritis of [...] as of this encounter (statuses as of 01/14/2023) Resolved Problems Problem Noted Date Resolved Date Atherosclerosis of coronary artery of [place] heart without angina pectoris 09/10/2022 10/31/2022 Hypothyroidism [...] 12/07/2014 05/24/2015 Vitamin D insufficiency 05/12/2014 01/03/20 17 Chronic sinusitis 10/28/2013 01/02/2017 Urinary frequency 09/15/2013 [...] ic keratosis, Above rt angle of mandible 1/901/28/2002 09/15/2013 Major depressive disorder 01/12/20022013 Overview: ICD-10 [...] cava filter 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 07/08/2018 CKD (chronic kidney disease) stage 2, GFR 60-89 ml/min 03/12/2019 documented as of this encounter (statuses as of 01/14/2023) Immunizations Name Administration Dates Next Due COVID-19 [...] encounter Miscellaneous Notes * Telephone Encounter - Juliann Ortega DO - 01/14/2023 3:38 PM EDTSigned Prescriptions: Disp Refills Atenolol 25 MG Oral Tablet (Tenormin) 45 Tab*3 Sig: TAKE 1/2 TABLET BY MOUTH EVERY DAY Authorizing Provider: JULIANN ORTEGA * Telephone Encounter - Olga Rolle CMA - 01/14/2023 2:13 PM EDTPending Prescriptions: Disp Refills Atenolol 25 MG Oral Tablet (Tenormin) 45 Tab*3 Sig: TAKE 1/2 TABLET BY MOUTH EVERY DAY * Telephone Encounter - Olga Rolle CMA - 01/14/2023 2:12 PM EDT Did you pend patient's preferred pharmacy and medication before forwarding?yes [facility]acy: [id number] [address] [facility] Pending Prescriptions: Disp Refills Atenolol 25 MG Oral Tablet (Tenormin) [Ph*45 Tab*3 Sig: TAKE 1/2 TABLET BY MOUTH EVERY DAY Last Visit: 02/14/2022 (in office), 03/17/2020 (telemedicine) Next Visit: Visit date not found If no future appointments scheduled, and last appointment is greater than a year ago, please schedule patient for a follow-up appointment Last date the medication was ordered: Is this request for a controlled substance?No Urine Drug Screen:No results found. However, due to the size of the patient record, not all encounters were searched. Please check Results Review for a complete set of results. Patient Phone Numbers Labs: Lab Results Component Value Date/Time CREAT 0.9 03/27/2022 10:44 AM CREAT 1.0 02/12/2020 08:32 AM CREAT 0.7 07/15/1996 11:28 AM POTASSIUM 4.2 03/27/2022 10:44 AM POTASSIUM 4.2 02/12/2020 08:32 AM POTASSIUM 4.5 07/15/1996 11:28 AM TSH 2.20 05/22/2022 10:22 AM TSH 3.11 02/01/2020 10:03 AM TSH 11.33 (H) 07/15/1996 11:28 AM LDLCALC 55 03/21/2022 09:15 AM LDLCALC 22 11/27/2019 08:12 AM LDLCALC 103. 07/15/1996 11:28 AM LDLDIRECT NOT APPLICABLE 11/27/2019 08:12 AM ALT 14 11/06/2021 09:17 AM ALT 15 02/12/2020 08:32 AM ALT 24 07/15/1996 11:28 AM HGBA1C 5.7 (H) 03/21/2022 09:15 AM HGBA1C 5.7 08/27/2008 04:40 PM * Telephone Encounter - Interface, E-Rx Ss Inbound - 01/14/2023 11:51 AM EDT Pending Prescriptions: Disp Refills Atenolol 25 MG Oral Tablet [Pharmacy Med N*30 Tab*0 Sig: TAKE 1/2 TABLET BY MOUTH EVERY DAY documented in this encounter Plan of Treatment Upcoming Encounters Date Type Specialty Care Team Description 01/15/2023 Office Visit Family Medicine Arlene Wilhelm PAPamela [address] [place] [address] [place] [address] 01/16/2023 Office Visit Ophthalmology Pedro Tinsley, DO [address] [place] [address] 01/30/2023 Hospital Encounter Surgery Brian Gagnon DO [address] [place] [address] 01/30/2023 Surgery Surgery Brian Gagnon, DO [address] [place] [address] RIGHT VITRECTOMY MECHANICAL PARS PLANA APPROACH 02/12/2023 Cardiac Studies Cardiology [facility] [address] [place] [address] 03/06/2023 Office Visit Family Medicine Rafa Bergman MD [address] [place] [address] [place] [address] 04/30/2023 Office Visit Dermatology Guy Trivedi MD [address] [facility] [place] [address] 05/16/2023 Hospital Encounter Endoscopy Nahun Hong MD [address] [place] [address] 05/16/2023 Surgery Endoscopy Nahun Hong MD [address] [place] [address] COLONOSCOPY FLEXIBLE PROXIMAL DIAGNOSTIC 07/05/2023 Office Visit Rheumatology Deangelo Holley MD [address] [place] [address] Scheduled Procedures Name Priority Associated Diagnoses Date/Ti me VITRECTOMY MECHANICAL PARS PLANA APPROACH Vitreous floaters of right eye 01/30/2023 8:00 AM EDT COLONOSCOPY FLEXIBLE PROXIMAL DIAGNOSTIC Colon cancer screening 05/16/2023 10:15 AM EST Health Maintenance Due Date Last Done Comments DTaP,Tdap,and Td Vaccines (2 - Td or Tdap) 11/02/2017 11/03/2007 CKD PHOS USE SMARTSET 74605 04/19/202204/01, 11/27/2019, 11/21/2018, Additional history exists Depression Screening 07/17/2022 07/17/2021 GFR 09/25/2022 03/27/2022, 03/02, 10/18/2021, Additional history exists COVID-19 Vaccine ( season) 2022 02/05/2022, 08/02/2021, 02/28/2021, Additional history exists Influenza Vaccine (FLU shot) (#1) 2022 01/30/2022, 12/28/2020, 12/31/2019, Additional history exists Albumin/Creatinine Ratio 03/21/2023 022, 04/19/2021, 12/31/2017, Additional history exists HbA1c 03/21/2023 03/21/2022, 04/01, 10/06/2020, Additional history exists CKD HGB USE SMARTSET 65007 04/24/202304/24, 04/24/2022, 03/27/2022, Additional history exists TSH 05/22/2023 05/22/2022, 03/02, 04/19/2021, Additional history exists DXA Scan 07/18/2024 07/18/2022, 12/01, 05/09/2017, Additional history exists Hepatitis B Completed 03/18/2009, 05/30, 05/12/2008 Pneumococcal Vaccine: 65+ Years Completed 03/28/2015, 03/20/2010, 11/15/2004 COLONOSCOPY-EVERY 5 YRS AGES 18-100 Discontinued 02/27/2017, 02/27/2017, 10/17/2004 Zoster Vaccines Completed 06/12/2021, 02/01, 11/04/2012 VITAMIN D LEVEL ONCE IN A LIFETIME-USE SMARTSET# [id number] Completed 11/06/2021, 12/28/2019, 06/24/2017, Additional history exists GARDASIL-HPV IMMUNIZATION SERIES Aged Out No longer eligible based on patient's age to complete this topic MENINGOCOCCAL (MENACTRA/MENVEO) Aged Out No longer eligible based on patient's age to complete this topic documented as of this encounter Medical Devices Implanted Type Area Chemical Equipment Sales Engineer Device Identifier Shelf Expiration Date Model / Serial / Lot Lens Intraoc 21.5 - [id number] - [id number] Implanted:Qty: 1 on 05/12/2019 by Yury Brady MD at OR [facility] Right: Eye [employer] 12/30/2023 [id number] / [id number] / [id number] Lens Intraoc 22.5 - [id number] - [id number] Implanted:Qty: 1 on 04/05/2020 by Yury Brady MD at OR [facility] Left: Eye [employer] 09/28/2024 [id number] / [id number] / [id number] documented as of this encounter Visit Diagnoses Diagnosis HTN, goal below 140/90- Primary Unspecified essential hypertension Vitreous floaters of right eye Colon cancer screening Special screening for malignant neoplasms, colon documented in this encounter Advance Directives Documents on File Type Date Recorded Patient Senior Counsel Commercial Expl anation Advance Directives and Living Will 03/11/2018 Krissy Urban ADVANCE DIR ECTIVE Healthcare Agents on File Name Relationship Healthcare Agent Relationship Communication Krissy Ordonez Adult Child Health Care Agen t (per Health Care Power of [place] Man document) Guille Urban Adult Child Health Care Agen t (per Health Care Power of [place] Man document) Care Teams Packerhead Machine Operator Relationship Specialty Start Date End Date Rafa Bergman MD [address] [place] [address] [place] [address] PCP - General Family Medicine 04/19/21 documented as of this encounter
--- OUTSIDE RECORDS SUMMARY | 2023-02-24 09:19 | External Medical Summary | Summary of Care ---
Author Name Unknown Organization [facility] Address [address] [facility] [place] [address] Phone [phone] Care Team Providers Care Bricklayer Name Role Phone Rafa Bergman MD Primary Care Provide r Reason for Visit * Reason Comments Follow Up Referred by Dr. Ryan laguna for non-clearing floaters OD. Possible vitrectomy. History of BRVO with ME OD, endophthalmitis OD and small choroidal nevus OD. 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*; Purulent endophthalmitis of right eye; Nevus of choroid of right eye Allergies Active Allergy Reactions Severity Noted Date Comments Colchicine Diarrhea 06/16/2018 Daptomycin 01/05/2015 Shortness of breath Imipenem Edema airway High 01/05/2015 Metoprolol Low 01/23/2021 Other reaction(s): fatigue Zoledronic Acid 04/24/2012 Myalgias, fever, chills, vomiting x 2 days Sulfa Antibiotics 12/22/2002 Bactrim--itchy all over, eyes swollen documented as of this encounter (statuses as of 01/18/2023) Medications Medication Sig Dispensed Refills Start Date [...] as of this encounter (statuses as of 01/18/2023) Active Problems Problem Noted Date 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 History of [place] (myocardial infarction) History of pulmonary embolism 11/27/2022 [...] S/P angioplasty with stent 11/27/2018 Atherosclerosis of [place] co ronary artery of [place] heart without angina pectoris 07/08/2018 Arthritis of [...] as of this encounter (statuses as of 01/18/2023) Resolved Problems Problem Noted Date Resolved Date Atherosclerosis of coronary artery of [place] heart without angina pectoris 09/10/2022 10/31/2022 Hypothyroidism [...] cava filter 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 PENNIE Almanza, Needle Leader Brian Gagnon DO 01/03/2023 I have reviewed the documentation by the scribe. I have made corrections and additions to it as needed. The final documentation is an accurate representation of my observations and impressions. Brian Gagnon D.O. 01/05/2023 1:07 PM Ophthalmology, [place] [address] [place] [address] documented in this encounter Nursing Notes * Ivis Dang LPN - 01/03/2023 9:37 AM EDT OCT image(s) of both eyes acquired and filed/scanned into chart. * WAYNE Mcdermott - 01/03/2023 7:11 AM EDT Rehana Moran [...] Encounters Date Type Specialty Care Team Description 01/21/2023 Office Visit Family Medicine Nicol Ferguson MD [address] [place] [address] [place] [address] 01/30/2023 Hospital Encounter Surgery Brian Gagnon, DO [address] [place] [address] 01/30/2023 Surgery Surgery Brian Gagnon, DO [address] [place] [address] RIGHT VITRECTOMY MECHANICAL PARS PLANA APPROACH 2023 Office Visit Ophthalmology Brain Gagnon DO [address] [place] [address] Екатерина Nurse Ophthalmology [address] [place] [address] 02/07/2023 Office Visit Ophthalmology Brian Gagnon DO [address] [place] [address] Екатерина Nurse Ophthalmology [address] [place] [address] 02/12/2023 Cardiac Studies Cardiology [facility] [address] [place] [address] 02/12/2023 Imaging Radiology 02/13/2023 Office Visit Ophthalmology Pedro Tinsley, DO [address] [place] [address] 03/06/2023 Office Visit Family Medicine Rafa Bergman MD [address] [place] [address] [place] [address] 04/30/2023 Office Visit Dermatology Guy Trivedi MD [address] [place] [address] 05/16/2023 Hospital Encounter Endoscopy Nahun Hong MD [address] [place] [address] 05/16/2023 Surgery Endoscopy Nahun Hong MD [address] [place] [address] COLONOSCOPY FLEXIBLE PROXIMAL DIAGNOSTIC 07/05/2023 Office Visit Rheumatology Deangelo Holley MD [address] [facility] [place] [address] Scheduled Procedures Name Priority Associated Diagnoses Date/Ti me VITRECTOMY MECHANICAL PARS PLANA APPROACH Vitreous floaters of right eye 01/30/2023 8:00 AM EDT COLONOSCOPY FLEXIBLE PROXIMAL DIAGNOSTIC Colon cancer screening 05/16/2023 10:15 AM EST Health Maintenance Due Date Last Done Comments DTaP,Tdap,and Td Vaccines (2 - Td or Tdap) 11/02/2017 11/03/2007 CKD PHOS USE SMARTSET 76978 04/19/202204/01, 11/27/2019, 11/21/2018, Additional history exists Depression Screening 07/17/2022 07/17/2021 GFR 09/25/2022 03/27/2022, 03/02, 10/18/2021, Additional history exists COVID-19 Vaccine (2022- season) 2022 02/05/2022, 08/02/2021, 02/28/2021, Additional history exists Influenza Vaccine (FLU shot) (#1) 2022 01/30/2022, 12/28/2020, 12/31/2019, Additional history exists Albumin/Creatinine Ratio 03/21/2023 022, 04/19/2021, 12/31/2017, Additional history exists HbA1c 03/21/2023 03/21/2022, 04/01, 10/06/2020, Additional history exists CKD HGB USE SMARTSET 28901 04/24/202304/24, 04/24/2022, 03/27/2022, Additional history exists TSH 05/22/2023 05/22/2022, 03/02, 04/19/2021, Additional history exists DXA Scan 07/18/2024 07/18/2022, 12/01, 05/09/2017, Additional history exists Hepatitis B Completed 03/18/2009, 05/30, 05/12/2008 Pneumococcal Vaccine: 65+ Years Completed 03/28/2015, 03/20/2010, 11/15/2004 COLONOSCOPY-EVERY 5 YRS AGES 18-100 Discontinued 02/27/2017, 02/27/2017, 10/17/2004 Zoster Vaccines Completed 06/12/2021, 02/01, 11/04/2012 VITAMIN D LEVEL ONCE IN A LIFETIME-USE SMARTSET# 55034 Completed 11/06/2021, 12/28/2019, 06/24/2017, Additional history exists GARDASIL-HPV IMMUNIZATION SERIES Aged Out No longer eligible based on patient's age to complete this topic MENINGOCOCCAL (MENACTRA/MENVEO) Aged Out No longer eligible based on patient's age to complete this topic documented as of this encounter Medical Devices Implanted Type Area Commercial Lines Account Executive Device Identifier Shelf Expiration Date Model / Serial / Lot Lens Intraoc 21.5 - [id number] - [id number] Implanted:Qty: 1 on 05/12/2019 by Yury Brady MD at OR [facility] Right: Eye [employer] 12/30/2023 [id number] / [id number] / [id number] Lens Intraoc 22.5 - [id number] - [id number] Implanted:Qty: 1 on 04/05/2020 by Yury Brady MD at OR [facility] Left: Eye [employer] 09/28/2024 [id number] / [id number] / [id number] documented as of this encounter Visit Diagnoses Diagnosis 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- Primary Purulent endophthalmitis of right eye Purulent endophthalmitis, unspecified Nevus of choroid of right eye Vitreous floaters of right eye Colon cancer screening Special screening for malignant neoplasms, colon documented in this encounter Advance Directives Documents on File Type Date Recorded Patient [place] Upholsterer Expl anation Advance Directives and Living Will 03/11/2018 Krissy Urban ADVANCE DIR ECTIVE Healthcare Agents on File Name Relationship Healthcare Agent Relationship Communication Krissy Ordonez Adult Child Health Care Agen t (per Health Care Power of Managing Partner document) Guille Urban Adult Child Health Care Agen t (per Health Care Power of Managing Partner document) Care Teams Bricklayer Relationship Specialty Start Date End Date Rafa Bergman MD [address] [place] [address] [place] [address] PCP - General Family Medicine 04/19/21 documented as of this encounter"
--- OUTSIDE RECORDS SUMMARY | 2023-02-24 09:19 | External Medical Summary | Summary of Care ---
Author Name Unknown Organization [facility] Address [address] [place] [address] Phone [phone] Care Team Providers Care Family Medicine Chair Name Role Phone Rafa Bergman MD Primary Care Provide r Reason for Visit * Reason Onset Date Comments Appointment 01/15/2023 CT Encounter Details Date Type Department Care Team Description 01/15/2023 Telephone Family Medicine [address] [place] [id number] Arlene Wilhelm PA-C [address] [place] [address] [place] [address] Appointment (CT ) Allergies Active Allergy Reactions Severity Noted Date Comments Colchicine Diarrhea 06/16/2018 Daptomycin 01/05/2015 Shortness of breath Imipenem Edema airway High 01/05/2015 Metoprolol Low 01/23/2021 Other reaction(s): fatigue Zoledronic Acid 04/24/2012 Myalgias, fever, chills, vomiting x 2 days Sulfa Antibiotics 12/22/2002 Bactrim--itchy all over, eyes swollen documented as of this encounter (statuses as of 01/17/2023) Medications Medication Sig Dispensed Refills Start Date [...] a day. 3 mL 1 11/19/2022 Active Additional Information Patient not taking.Reported on 01/03/2023 prednisoLONE Acetate 1 % Ophthalmic Suspension (Pred Forte) Instill 1 Drop into the right eye 6 times a day. 15 mL 1 11/19/2022 Active Additional Information Patient not taking.Reported on [...] gone.. 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 History of [place] (myocardial infarction) History of pulmonary embolism 11/27/2022 [...] S/P angioplasty with stent 11/27/2018 Atherosclerosis of [place] co ronary artery of [place] heart without angina pectoris 07/08/2018 Arthritis of [...] as of this encounter (statuses as of 01/17/2023) Resolved Problems Problem Noted Date Resolved Date Atherosclerosis of coronary artery of [place] heart without angina pectoris 09/10/2022 10/31/2022 Hypothyroidism [...] cava filter 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 * Telephone Encounter - ASHLEY Silverman - 01/15/2023 4:24 PM EDT I left message on patient's VM to call me (RE: Scheduling CT Sinuses - she did not checkout when she saw Arlene today). documented in this encounter Plan of Treatment Upcoming Encounters Date Type Specialty Care Team Description 01/29/2023 Imaging Radiology 01/30/2023 Hospital Encounter Surgery Brian Gagnon DO [address] [place] [id number] 01/30/2023 Surgery Surgery Brian Gagnon DO [address] [place] [address] RIGHT VITRECTOMY MECHANICAL PARS PLANA APPROACH 2023 Office Visit Ophthalmology Brian Gagnon DO [address] [place] [address] [place]катер[place] Nurse Ophthalmology [address] [place] [address] 02/07/2023 Office Visit Ophthalmology Brian Gagnon DO [address] [place] [address] [place]катер[place] Nurse Ophthalmology [address] [place] [address] 02/12/2023 Cardiac Studies Cardiology [facility] [address] [place] [address] 02/13/2023 Office Visit Ophthalmology Pedro Tinsley DO [address] [place] [address] 03/06/2023 Office Visit Family Medicine Rafa Bergman MD [address] [place] [address] [place] [address] 04/30/2023 Office Visit Dermatology Guy Trivedi MD [address] [place] [address] 05/16/2023 Hospital Encounter Endoscopy Nahun Hong MD [address] [place] [address] 05/16/2023 Surgery Endoscopy Nahun Hong MD [address] [place] [address] COLONOSCOPY FLEXIBLE PROXIMAL DIAGNOSTIC 07/05/2023 Office Visit Rheumatology Deangelo Holley MD [address] [place] [address] Scheduled Procedures Name Priority Associated Diagnoses Date/Ti me VITRECTOMY MECHANICAL PARS PLANA APPROACH Vitreous floaters of right eye 01/30/2023 8:00 AM EDT COLONOSCOPY FLEXIBLE PROXIMAL DIAGNOSTIC Colon cancer screening 05/16/2023 10:15 AM EST Health Maintenance Due Date Last Done Comments DTaP,Tdap,and Td Vaccines (2 - Td or Tdap) 11/02/2017 11/03/2007 CKD PHOS USE SMARTSET 56940 04/19/202204/01, 11/27/2019, 11/21/2018, Additional history exists Depression Screening 07/17/2022 07/17/2021 GFR 09/25/2022 03/27/2022, 03/02, 10/18/2021, Additional history exists COVID-19 Vaccine (2022- season) 2022 02/05/2022, 08/02/2021, 02/28/2021, Additional history exists Influenza Vaccine (FLU shot) (#1) 2022 01/30/2022, 12/28/2020, 12/31/2019, Additional history exists Albumin/Creatinine Ratio 03/21/2023 022, 04/19/2021, 12/31/2017, Additional history exists HbA1c 03/21/2023 03/21/2022, 04/01, 10/06/2020, Additional history exists CKD HGB USE SMARTSET 73049 04/24/202304/24, 04/24/2022, 03/27/2022, Additional history exists TSH 05/22/2023 05/22/2022, 03/02, 04/19/2021, Additional history exists DXA Scan 07/18/2024 07/18/2022, 12/01, 05/09/2017, Additional history exists Hepatitis B Completed 03/18/2009, 05/30, 05/12/2008 Pneumococcal Vaccine: 65+ Years Completed 03/28/2015, 03/20/2010, 11/15/2004 COLONOSCOPY-EVERY 5 YRS AGES 18-100 Discontinued 02/27/2017, 02/27/2017, 10/17/2004 Zoster Vaccines Completed 06/12/2021, 02/01, 11/04/2012 VITAMIN D LEVEL ONCE IN A LIFETIME-USE SMARTSET# [id number] Completed 11/06/2021, 12/28/2019, 06/24/2017, Additional history exists GARDASIL-HPV IMMUNIZATION SERIES Aged Out No longer eligible based on patient's age to complete this topic MENINGOCOCCAL (MENACTRA/MENVEO) Aged Out No longer eligible based on patient's age to complete this topic documented as of this encounter Medical Devices Implanted Type Area Mixing Machine Tender Cork Rod Device Identifier Shelf Expiration Date Model / Serial / Lot Lens Intraoc 21.5 - [id number] - [id number] Implanted:Qty: 1 on 05/12/2019 by Yury Brady MD at OR [facility] Right: Eye [employer] 12/30/2023 [id number] / [id number] / [id number] Lens Intraoc 22.5 - [id number] - [id number] Implanted:Qty: 1 on 04/05/2020 by Yury Brady MD at OR [facility] Left: Eye [employer] 09/28/2024 [id number] / [id number] / [id number] documented as of this encounter Advance Directives Documents on File Type Date Recorded 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
--- OUTSIDE RECORDS SUMMARY | 2023-02-24 09:19 | External Medical Summary | Summary of Care ---
Author Name Unknown Organization [facility] Address [address] [facility] [place] [address] Phone [phone] Care Team Providers Care Drier Unloader Name Role Phone Rafa Bergman MD Primary Care Provide r Reason for Visit * Reason Comments Follow Up Referred by Dr. Ryan laguna for non-clearing floaters OD. Possible vitrectomy. History of BRVO with ME OD, endophthalmitis OD and small choroidal nevus OD. Encounter Details Date Type Department Care Team Description 01/03/2023 Office Visit Ophthalmology, [facility] [address] [place] [address] Brian Gagnon DO [address] [facility] [place] [address] Nurse Екатерина Ophthalmology [address] [facility] [address] 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 [...] as of this encounter (statuses as of 01/05/2023) Medications Medication Sig Dispensed Refills Start Date [...] Apply to knees as needed 0 Active Dicyclomine HCl 10 MG Oral Capsule (Bentyl)Indications :Diarrhea, unspecified type,Irritable bowel syndrome with both constipation and diarrhea Take by mouth 1 Capsule as needed in the morning AND 1 Capsule as needed at noon AND 1 Capsule as needed in the evening AND 1 Capsule as needed before bedtime for Pain or Gas. For abdominal pain. 120 Capsule 11 07/17/2021 Active Nitroglycerin 0.4 MG Sublingual Tablet Sublingual (Nitrostat) Place under the tongue 1 Tablet as needed for Pain, Chest. 25 Tablet 1 01/08/2022 Active Atenolol 25 MG Oral Tablet (Tenormin) take 1/2 tablet daily 30 Tablet 5 02/05/2022 Active Terconazole 0.8 % Vaginal Cream Administer [...] on 10/09/2022 Famotidine 20 MG Oral Tablet (Pepcid)Indications :Abdominal [...] 0 Active predniSONE 10 MG Oral Tablet (Deltasone)Indicati ons:Hip pain, right,Acute pain of right knee Take [...] scheduled surgery.. 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 PENNIE Almanza, Horticultural Services Supervisor Brian Gagnon, 01/03/2023 I have reviewed the documentation by the scribe. I have made corrections and additions to it as needed. The final documentation is an accurate representation of my observations and impressions. Brian Gagnon D.O. 01/05/2023 1:07 PM Ophthalmology, [place] [address] [facility] [address] documented in this encounter Nursing Notes * [...] Encounters Date Type Specialty Care Team Description 01/08/2023 Office Visit Family Medicine Arlene Wilhelm PA-C [address] [place] [address] [place] [address] 01/16/2023 Office Visit Ophthalmology Pedro Tinsley, DO [address] [place] [address] 02/12/2023 Cardiac Studies Cardiology [facility] [address] [place] [address] 02/22/2023 Office Visit Cardiology Charles Ortega, DO [address] [place] [address] 03/06/2023 Office Visit Family Medicine Rafa Bergman MD [address] [place] [address] [place] [address] 04/30/2023 Office Visit Dermatology Guy Trivedi MD [address] [place] [address] 05/16/2023 Hospital Encounter Endoscopy Nahun Hong MD [address] [place] [address] 05/16/2023 Surgery Endoscopy Nahun Hong MD [address] [place] [address] COLONOSCOPY FLEXIBLE PROXIMAL DIAGNOSTIC 07/05/2023 Office Visit Rheumatology Deangelo Holley MD [address] [facility] [place] [address] Scheduled Procedures Name Priority Associated Diagnoses Date/Ti me COLONOSCOPY FLEXIBLE PROXIMAL DIAGNOSTIC Colon cancer screening 05/16/2023 10:15 AM EST Health Maintenance Due Date Last Done Comments DTaP,Tdap,and Td Vaccines (2 - Td or Tdap) 11/02/2017 11/03/2007 CKD PHOS USE SMARTSET 88664 04/19/202204/01, 11/27/2019, 11/21/2018, Additional history exists Depression Screening 07/17/2022 07/17/2021 GFR 09/25/2022 03/27/2022, 03/02, 10/18/2021, Additional history exists COVID-19 Vaccine ( season) 2022 02/05/2022, 08/02/2021, 02/28/2021, Additional history exists Influenza Vaccine (FLU shot) (#1) 2022 01/30/2022, 12/28/2020, 12/31/2019, Additional history exists Albumin/Creatinine Ratio 03/21/2023 022, 04/19/2021, 12/31/2017, Additional history exists HbA1c 03/21/2023 03/21/2022, 04/01, 10/06/2020, Additional history exists CKD HGB USE SMARTSET 39748 04/24/202304/24, 04/24/2022, 03/27/2022, Additional history exists TSH 05/22/2023 05/22/2022, 03/02, 04/19/2021, Additional history exists DXA Scan 07/18/2024 07/18/2022, 12/01, 05/09/2017, Additional history exists Hepatitis B Completed 03/18/2009, 05/30, 05/12/2008 Pneumococcal Vaccine: 65+ Years Completed 03/28/2015, 03/20/2010, 11/15/2004 COLONOSCOPY-EVERY 5 YRS AGES 18-100 Discontinued 02/27/2017, 02/27/2017, 10/17/2004 Zoster Vaccines Completed 06/12/2021, 02/01, 11/04/2012 VITAMIN D LEVEL ONCE IN A LIFETIME-USE SMARTSET# [id number] Completed 11/06/2021, 12/28/2019, 06/24/2017, Additional history exists GARDASIL-HPV IMMUNIZATION SERIES Aged Out No longer eligible based on patient's age to complete this topic MENINGOCOCCAL (MENACTRA/MENVEO) Aged Out No longer eligible based on patient's age to complete this topic documented as of this encounter Medical Devices Implanted Type Area Senior Staff Specialized Employment Device Identifier Shelf Expiration Date Model / Serial / Lot Lens Intraoc 21.5 - [id number] - [id number] Implanted:Qty: 1 on 05/12/2019 by Yury Brady MD at OR [facility] Right: Eye [employer] 12/30/2023 [id number] / [id number] / [id number] Lens Intraoc 22.5 - [id number] - [id number] Implanted:Qty: 1 on 04/05/2020 by Yury Brady MD at OR [facility] Left: Eye [employer] 09/28/2024 [id number] / [id number] / [id number] documented as of this encounter Visit Diagnoses Diagnosis 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- Primary Purulent endophthalmitis of right eye Purulent endophthalmitis, unspecified Nevus of choroid of right eye Colon cancer screening Special screening for malignant neoplasms, colon documented in this encounter Advance Directives Documents on File Type Date Recorded 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 Advance Directives and Living Will 03/11/2018 Krissy Urban ADVANCE DIR ECTIVE Healthcare Agents on File Name Relationship Healthcare Agent Relationship Communication Krissy Ordonez Adult Child Health Care Agen t (per Health Care Power of Regulatory Compliance Coordinator document) Guille Urban Adult Child Health Care Agen t (per Health Care Power of Regulatory Compliance Coordinator document) Care Teams Drier Unloader Relationship Specialty Start Date End Date Rafa Bergman MD [address] [place] [address] [place] [address] PCP - General Family Medicine 04/19/21 documented as of this encounter"
--- OUTSIDE RECORDS SUMMARY | 2023-02-24 09:19 | External Medical Summary | Summary of Care ---
Author Name Unknown Organization [facility] Address [address] [place] [address] Phone [phone] Care Team Providers Care Office System Analyst Name Role Phone Rafa Bergman MD Primary Care Provide r Reason for Referral * Precert (Within 10 days (routine)) - Pending Review Specialty Diagnoses / Procedures Referred By Ethan nicole Referred To Contact Radiology Diagnoses Recurrent sinus infections Procedures CT SINUSES W WO CONTRAST Arlene Wilhelm PA-C [address] [place] [address] [place] [address] Referral ID Status Reason Start Date Expiration Date V isits Requested Visits Authorized [id number] Pending Review 01/22/2023 999 999 Reason for Visit * Reason Comments pre-op exam Encounter Details Date Type Department Care Team Description 01/15/2023 Office Visit Family Medicine [address] [place] [phone] Arlene Wilhelm PA-C [address] [place] [address] [place] [address] Preop examination*; Recurrent sinus infections Allergies Active Allergy Reactions Severity Noted Date Comments Colchicine Diarrhea 06/16/2018 Daptomycin 01/05/2015 Shortness of breath Imipenem Edema airway High 01/05/2015 Metoprolol Low 01/23/2021 Other reaction(s): fatigue Zoledronic Acid 04/24/2012 Myalgias, fever, chills, vomiting x 2 days Sulfa Antibiotics 12/22/2002 Bactrim--itchy all over, eyes swollen documented as of this encounter (statuses as of 01/15/2023) Medications Medication Sig Dispensed Refills Start Date [...] as of this encounter (statuses as of 01/15/2023) Active Problems Problem Noted Date 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 History of [place] (myocardial infarction) History of pulmonary embolism 11/27/2022 [...] S/P angioplasty with stent 11/27/2018 Atherosclerosis of [place] co ronary artery of [place] heart without angina pectoris 07/08/2018 Arthritis of [...] as of this encounter (statuses as of 01/15/2023) Resolved Problems Problem Noted Date Resolved Date Atherosclerosis of coronary artery of [place] heart without angina pectoris 09/10/2022 10/31/2022 Hypothyroidism [...] cava filter 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 07/08/2018 CKD (chronic kidney disease) stage 2, GFR 60-89 ml/min 03/12/2019 documented as of this encounter (statuses as of 01/15/2023) Immunizations Name Administration Dates Next Due COVID-19 [...] Sign Reading Time Taken Comments Blood Pressure 132/80 01/15/2023 3:09 PM EDT Pulse 100 01/15/2023 3:09 PM EDT Temperature 36.1 C (96.9 F) 01/15/2023 3:09 PM ED T Respiratory Rate - - Oxygen Saturation 94% 01/15/2023 3:09 PM EDT Inhaled Oxygen Concentration - - Weight 77.2 kg (170 lb 4.8 oz) 01/15/2023 3:09 P M EDT Height - - Body Mass Index 30.17 12/19/2022 10:32 AM EDT documented in this encounter Progress Notes * Arlene Wilhelm PA-C - 01/15/2023 3:13 PM EDT Nursing Notes: Lindsey Yi, [facility] 01/15/23 1507 Sign at exiting of workspace She is here for a pre op today. She is has a sinus infection that she has been battling for 14 days. Pt here today for preop for right vitrectomy on 01/30/23. MAC - sedation. Pt is having some sinus issues. She hasn't had CT of sinuses. Pt has nasal/head congestion, sinus pain/pressure. Review of patient's allergies indicates: Allergen Reactions Imipenem Edema airway Colchicine Diarrhea Daptomycin Shortness of breath Reclast [Zoledronic Acid] Myalgias, fever, chills, vomiting x 2 days Sulfa Antibiotics Bactrim--itchy all over, eyes swollen Metoprolol Other reaction(s): fatigue Current Outpatient Medications Medication Sig Dispense Refill [...] Pain. Fexofenadine HCl 60 MG Oral Tablet (JOHN) [...] needed for loose stool 30 Capsule 3 Allopurinol 300 MG Oral Tablet (Zyloprim) take [...] for 2 days 30 Tablet 0 predniSONE 5 MG Oral Tablet (Deltasone) TAKE [...] 1 Tablet before bedtime.) 90 Tablet 1 Saccharomyces boulardii 250 MG Oral Packet Take 250 mg by mouth daily. (Patient not taking: Reported on 01/15/2023) Moxifloxacin HCl 0.5 % Ophthalmic Solution (Vigamox) Instill 1 Drop into the right eye 6 times a day. (Patient not taking: Reported on 01/03/2023) 3 mL 1 prednisoLONE Acetate 1 % Ophthalmic Suspension (Pred Forte) Instill 1 Drop into the right eye 6 times a day. (Patient not taking: Reported on 01/03/2023) 15 mL 1 predniSONE 20 MG Oral Tablet (Deltasone) Take 1 Tablet by mouth in the morning. Take 0.5 tablet by mouth in the morning as needed for gout flares.. (Patient taking differently: Take 0.25 Tablets by mouth in the morning. 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) Benign neoplasm of skin Benign paroxysmal vertigo 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 10/28/2013 Chronic sinusitis 10/28/2013 CKD (chronic kidney disease) stage 2, GFR 60-89 ml/min Degenerative disc disease, cervical 05/18/2016 Derangement of meniscus right knee Diverticulitis of colon DVT (deep venous thrombosis) (HCC) 02/28/2015 Dyslipidemia, goal LDL below 100 09/15/2013 [...] NSTEMI (non-ST elevated myocardial infarction) (HCC) 04/28/2018 [facility], cathed and LAD stented with AMIE, RCA [...] hypertension, elevated TSH, small pericardial effusion [facility] Pericarditis as complication of acute myocardial infarction 05/15/2018 [facility] colchicine not tolerated well. Pericarditis as complication of acute myocardial infarction 06/05/2018 [facility] steroids Postmenopausal atrophic vaginitis 09/15/2013 Presence of vena cava filter PROLAPSE OF VAGINAL WALL 10/28/2000 Pulmonary embolism and infarction ([facility]) 08/30/2009 Pulmonary embolus (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[employer] Employer: [employer] Tobacco Use Smoking status: Never Smokeless tobacco: Never Tobacco comments: second hand smoke exposure - 10 years Vaping Use Vaping Use: Never used Substance and Sexual Activity Alcohol use: No Drug use: No Sexual activity: Not Currently Partners: Male control/protection: Surgical Comment: hysterectomy Other Topics Concern Service No Blood Transfusions Yes Comment: 10/2014 at [facility] Caffeine Concern No Occupational Exposure No Hobby [...] Resource Strain: Not on file Food Insecurity: Not on file Transportation Needs: Not on file Physical Activity: Not on file Stress: Not on file Social Connections: Not on file Intimate Partner Violence: Not on file Housing Stability: Not on file O:Blood pressure 132/80, pulse 100, temperature 36.1 C (96.9 F), weight 77.2 kg (170 lb 4.8 oz), SpO2 94 %, not currently . GENERAL: alert, healthy, and no distress NECK: supple, no adenopathy, no bruits, thyroid normal size, non-tender, without nodularity EYES: PERRLA, conjunctiva are pink and non-injected, sclera clear EARS: External ears normal, Canals clear, TM's Normal NOSE: no mucosal erythema, no mucosal edema, no purulent discharge OROPHARYNX: no exudate, no erythema, lips, buccal mucosa, and tongue normal, and mucous membranes are moist HEART: regular rate & rhythm, no murmur, and no gallops LUNGS: chest symmetric with normal AP diameter, no chest deformities noted, no chest wall tenderness, lungs clear to auscultation ABDOMEN: abdomen soft, non-tender, normal bowel sounds, and no masses or organomegaly A:Preop examination (Primary) Recurrent sinus infections - CT SINUSES W WO CONTRAST; Future; Expected date: 01/22/2023 - levoFLOXacin 500 MG Oral Tablet; Take 1 Tablet by mouth in the morning for 10 days. until gone.. Pt cleared for surgery. Start levaquin. Will get CT of sinuses. Any questions/problems, please call. If anything changes, worsens, develops new sx, please call ELIE. Follow Up: Return if symptoms worsen or fail to improve. Arlene Wilhelm PA-C documented in this encounter Nursing Notes * Lindsey Yi CMA - 01/15/2023 3:06 PM EDT She is here for a pre op today. She is has a sinus infection that she has been battling for 14 days. documented in this encounter Plan of Treatment Upcoming Encounters Date Type Specialty Care Team Description 01/16/2023 Office Visit Ophthalmology Pedro Tinsley DO [address] [place] [address] 01/30/2023 Hospital Encounter Surgery Brian Gagnon DO [address] [place] [address] 01/30/2023 Surgery Surgery Brian Gagnon DO [address] [place] [address] RIGHT VITRECTOMY MECHANICAL PARS PLANA APPROACH 02/12/2023 Cardiac Studies Cardiology [facility] [address] [place] [address] 03/06/2023 Office Visit Family Medicine Rafa Bergman MD [address] [place] [address] [place] [address] 04/30/2023 Office Visit Dermatology Guy Trivedi MD [address] [place] [address] [place] [address] 05/16/2023 Hospital Encounter Endoscopy Nahun Hong MD [address] [place] [address] 05/16/2023 Surgery Endoscopy Nahun Hong MD [address] [place] [address] COLONOSCOPY FLEXIBLE PROXIMAL DIAGNOSTIC 07/05/2023 Office Visit Rheumatology Deangelo Holley MD [address] [employer] [place] [address] Scheduled Orders Name Type Priority Associated Diagnoses Orde r Schedule CT SINUSES W WO CONTRAST Medical Imaging Routine Recurrent sinus infections Expected: 01/22/2023, Expires: 02/16/2024 Scheduled Procedures Name Priority Associated Diagnoses Date/Ti me VITRECTOMY MECHANICAL PARS PLANA APPROACH Vitreous floaters of right eye 01/30/2023 8:00 AM EDT COLONOSCOPY FLEXIBLE PROXIMAL DIAGNOSTIC Colon cancer screening 05/16/2023 10:15 AM EST Health Maintenance Due Date Last Done Comments DTaP,Tdap,and Td Vaccines (2 - Td or Tdap) 11/02/2017 11/03/2007 CKD PHOS USE SMARTSET 84944 04/19/202204/01, 11/27/2019, 11/21/2018, Additional history exists Depression Screening 07/17/2022 07/17/2021 GFR 09/25/2022 03/27/2022, 03/02, 10/18/2021, Additional history exists COVID-19 Vaccine ( season) 2022 02/05/2022, 08/02/2021, 02/28/2021, Additional history exists Influenza Vaccine (FLU shot) (#1) 2022 01/30/2022, 12/28/2020, 12/31/2019, Additional history exists Albumin/Creatinine Ratio 03/21/2023 022, 04/19/2021, 12/31/2017, Additional history exists HbA1c 03/21/2023 03/21/2022, 04/01, 10/06/2020, Additional history exists CKD HGB USE SMARTSET 47118 04/24/202304/24, 04/24/2022, 03/27/2022, Additional history exists TSH 05/22/2023 05/22/2022, 03/02, 04/19/2021, Additional history exists DXA Scan 07/18/2024 07/18/2022, 12/01, 05/09/2017, Additional history exists Hepatitis B Completed 03/18/2009, 05/30, 05/12/2008 Pneumococcal Vaccine: 65+ Years Completed 03/28/2015, 03/20/2010, 11/15/2004 COLONOSCOPY-EVERY 5 YRS AGES 18-100 Discontinued 02/27/2017, 02/27/2017, 10/17/2004 Zoster Vaccines Completed 06/12/2021, 02/01, 11/04/2012 VITAMIN D LEVEL ONCE IN A LIFETIME-USE SMARTSET# [id number] Completed 11/06/2021, 12/28/2019, 06/24/2017, Additional history exists GARDASIL-HPV IMMUNIZATION SERIES Aged Out No longer eligible based on patient's age to complete this topic MENINGOCOCCAL (MENACTRA/MENVEO) Aged Out No longer eligible based on patient's age to complete this topic documented as of this encounter Medical Devices Implanted Type Area Extruder Operator Device Identifier Shelf Expiration Date Model / Serial / Lot Lens Intraoc 21.5 - [id number] - [id number] Implanted:Qty: 1 on 05/12/2019 by Yury Brady MD at OR [facility] Right: Eye [employer] 12/30/2023 [id number] / [id number] / [id number] Lens Intraoc 22.5 - [id number] - [id number] Implanted:Qty: 1 on 04/05/2020 by Yury Brady MD at OR [facility] Left: Eye [employer] 09/28/2024 [id number] / [id number] / [id number] documented as of this encounter Visit Diagnoses Diagnosis Preop examination- Primary Preoperative examination, unspecified Recurrent sinus infections Unspecified sinusitis (chronic) Vitreous floaters of right eye Colon cancer screening Special screening for malignant neoplasms, colon documented in this encounter Advance Directives Documents on File Type Date Recorded 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 Advance Directives and Living Will 03/11/2018 Krissy Urban ADVANCE DIR ECTIVE Healthcare Agents on File Name Relationship Healthcare Agent Relationship Communication Krissy José Luis Adult Child Health Care Agen t (per Health Care Power of Product Manager Financial Services document) Guille Urban Adult Child Health Care Agen t (per Health Care Power of Product Manager Financial Services document) Care Teams Office System Analyst Relationship Specialty Start Date End Date Rafa Bergman MD [address] [place] [address] [place] [phone] PCP - General Family Medicine 04/19/21 documented as of this encounter
--- OUTSIDE RECORDS SUMMARY | 2023-02-24 09:19 | External Medical Summary | Summary of Care ---
Author Name Unknown Organization [facility] Address [address] [facility] [place] [address] Phone [phone] Care Team Providers Care Nursing Unit Manager Name Role Phone Rafa Bergman MD Primary Care Provide r Reason for Visit * Reason Comments Follow Up Referred by Dr. Ryan laguna for non-clearing floaters OD. Possible vitrectomy. History of BRVO with ME OD, endophthalmitis OD and small choroidal nevus OD. Encounter Details Date Type Department Care Team Description 01/03/2023 Office Visit Ophthalmology, [facility] [address] [place] [address] Brian Gagnon DO [address] [facility] [place] [address] Nurse Екатерина Ophthalmology [address] [facility] [address] 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 [...] 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 History of [place] (myocardial infarction) History of pulmonary embolism 11/27/2022 [...] S/P angioplasty with stent 11/27/2018 Atherosclerosis of [place] co ronary artery of [place] heart without angina pectoris 07/08/2018 Arthritis of [...] Resolved Date Atherosclerosis of coronary artery of [place] heart without angina pectoris 09/10/2022 10/31/2022 Hypothyroidism [...] cava filter 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 PENNIE Almanza, Neonatal Intensive Care Nurse Brian Gagnon DO 01/03/2023 I have reviewed the documentation by the scribe. I have made corrections and additions to it as needed. The final documentation is an accurate representation of my observations and impressions. Brian Gagnon D.O. 01/05/2023 1:07 PM Ophthalmology, [place] [address] [place] [address] documented in this encounter Nursing Notes * [...] Office Visit Family Medicine Arlene Wilhelm PA-C [address] [place] [place] [address] [place] [address] 01/16/2023 Office Visit Ophthalmology Pedro Tinsley, DO [address] [place] [address] 02/12/2023 Cardiac Studies Cardiology Cadence Horne [facility] [address] [place] [address] 02/22/2023 Office Visit Cardiology Charles Ortega, DO [address] [place], [place] [address] 03/06/2023 Office Visit Family Medicine Rafa Bergman MD [address] [place] [place] [address] [place] [address] 04/30/2023 Office Visit Dermatology Guy Trivedi MD [address] [facility] [place] [address] 05/16/2023 Hospital Encounter Endoscopy Nahun Hong MD [address] [place], [place] [address] 05/16/2023 Surgery Endoscopy Nahun Hong MD [address] [place] [address] COLONOSCOPY FLEXIBLE PROXIMAL DIAGNOSTIC 07/05/2023 Office Visit Rheumatology Deangelo Holley MD [facility] [place] [address] Scheduled Procedures Name Priority Associated Diagnoses Date/Ti me COLONOSCOPY FLEXIBLE PROXIMAL DIAGNOSTIC Colon cancer screening 05/16/2023 10:15 AM EST Health Maintenance Due Date Last Done Comments DTaP,Tdap,and Td Vaccines (2 - Td or Tdap) 11/02/2017 11/03/2007 CKD PHOS USE SMARTSET 34560 04/19/202204/01, 11/27/2019, 11/21/2018, Additional history exists Depression Screening 07/17/2022 07/17/2021 GFR 09/25/2022 03/27/2022, 03/02, 10/18/2021, Additional history exists COVID-19 Vaccine ( season) 2022 02/05/2022, 08/02/2021, 02/28/2021, Additional history exists Influenza Vaccine (FLU shot) (#1) 2022 01/30/2022, 12/28/2020, 12/31/2019, Additional history exists Albumin/Creatinine Ratio 03/21/2023 022, 04/19/2021, 12/31/2017, Additional history exists HbA1c 03/21/2023 03/21/2022, 04/01, 10/06/2020, Additional history exists CKD HGB USE SMARTSET 64768 04/24/202304/24, 04/24/2022, 03/27/2022, Additional history exists TSH 05/22/2023 05/22/2022, 03/02, 04/19/2021, Additional history exists DXA Scan 07/18/2024 07/18/2022, 12/01, 05/09/2017, Additional history exists Hepatitis B Completed 03/18/2009, 05/30, 05/12/2008 Pneumococcal Vaccine: 65+ Years Completed 03/28/2015, 03/20/2010, 11/15/2004 COLONOSCOPY-EVERY 5 YRS AGES 18-100 Discontinued 02/27/2017, 02/27/2017, 10/17/2004 Zoster Vaccines Completed 06/12/2021, 02/01, 11/04/2012 VITAMIN D LEVEL ONCE IN A LIFETIME-USE SMARTSET# [id number] Completed 11/06/2021, 12/28/2019, 06/24/2017, Additional history exists GARDASIL-HPV IMMUNIZATION SERIES Aged Out No longer eligible based on patient's age to complete this topic MENINGOCOCCAL (MENACTRA/MENVEO) Aged Out No longer eligible based on patient's age to complete this topic documented as of this encounter Medical Devices Implanted Type Area Patient Service Coordinator Device Identifier Shelf Expiration Date Model / Serial / Lot Lens Intraoc 21.5 - [id number] - [id number] Implanted:Qty: 1 on 05/12/2019 by Yury Brady MD at OR [facility] Right: Eye [employer] 12/30/2023 [id number] / [id number] / [id number] Lens Intraoc 22.5 - [id number] - [id number] Implanted:Qty: 1 on 04/05/2020 by Yury Brady MD at OR [facility] Left: Eye [employer]OM[employer] 09/28/2024 [id number] / [id number] / [id number] documented as of this encounter Visit Diagnoses Diagnosis 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- Primary Purulent endophthalmitis of right eye Purulent endophthalmitis, unspecified Nevus of choroid of right eye Colon cancer screening Special screening for malignant neoplasms, colon documented in this encounter Advance Directives Documents on File Type Date Recorded Patient Burn Table Operator Expl anation Advance Directives and Living Will 03/11/2018 Krissy Urban ADVANCE DIR ECTIVE Healthcare Agents on File Name Relationship Healthcare Agent Relationship Communication Krissy Ordonez Adult Child Health Care Agen t (per Health Care Power of Poured Pipe Maker document) Guille Urban Adult Child Health Care Agen t (per Health Care Power of Poured Pipe Maker document) Care Teams Nursing Unit Manager Relationship Specialty Start Date End Date Rafa Bergman MD [address] [place] [address] [place] [address] PCP - General Family Medicine 04/19/21 documented as of this encounter"
--- OUTSIDE RECORDS SUMMARY | 2023-02-24 09:19 | External Medical Summary | Summary of Care ---
Author Name Unknown Organization [facility] Address [address] [place] [address] Phone [phone] Care Team Providers Care Cable Television Technician Name Role Phone Rafa Bergman MD Primary Care Provide r Reason for Visit * Reason Onset Date Comments Appointment 01/15/2023 CT Encounter Details Date Type Department Care Team Description 01/15/2023 Telephone Family Medicine [address] [place] [phone] Arlene Wilhelm PA-C [address] [place] [address] [place] [address] Appointment (CT ) Allergies [...] 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 History of [place] (myocardial infarction) History of pulmonary embolism 11/27/2022 [...] S/P angioplasty with stent 11/27/2018 Atherosclerosis of [place] co ronary artery of [place] heart without angina pectoris 07/08/2018 Arthritis of [...] Resolved Date Atherosclerosis of coronary artery of [place] heart without angina pectoris 09/10/2022 10/31/2022 Hypothyroidism [...] cava filter 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 07/08/2018 CKD [...] Care Team Description 01/16/2023 Office Visit Ophthalmology Cessna, Christopher T, DO [address] [place] [address] 01/30/2023 Hospital Encounter Surgery Brian Gagnon, DO [address] [place] [address] 01/30/2023 Surgery Surgery Brian Gagnon, DO [address] [place] [address] RIGHT VITRECTOMY MECHANICAL PARS PLANA APPROACH 02/12/2023 Cardiac Studies Cardiology [facility] [address] [place] [address] 03/06/2023 Office Visit Family Medicine Rafa Bergman MD [address] [place] [address] [place] [address] 04/30/2023 Office Visit Dermatology Guy Trivedi MD [address] [facility] [address] 05/16/2023 Hospital Encounter Endoscopy Nahun Hong MD [address] [place] [address] 05/16/2023 Surgery Endoscopy Nahun Hong MD [address] [place] [address] COLONOSCOPY FLEXIBLE PROXIMAL DIAGNOSTIC 07/05/2023 Office Visit Rheumatology Deagnelo Holley MD [address] [place] [address] Scheduled Procedures Name Priority Associated Diagnoses Date/Ti me VITRECTOMY MECHANICAL PARS PLANA APPROACH Vitreous floaters of right eye 01/30/2023 8:00 AM EDT COLONOSCOPY FLEXIBLE PROXIMAL DIAGNOSTIC Colon cancer screening 05/16/2023 10:15 AM EST Health Maintenance Due Date Last Done Comments DTaP,Tdap,and Td Vaccines (2 - Td or Tdap) 11/02/2017 11/03/2007 CKD PHOS USE SMARTSET 32514 04/19/202204/01, 11/27/2019, 11/21/2018, Additional history exists Depression Screening 07/17/2022 07/17/2021 GFR 09/25/2022 03/27/2022, 03/02, 10/18/2021, Additional history exists COVID-19 Vaccine ( season) 2022 02/05/2022, 08/02/2021, 02/28/2021, Additional history exists Influenza Vaccine (FLU shot) (#1) 2022 01/30/2022, 12/28/2020, 12/31/2019, Additional history exists Albumin/Creatinine Ratio 03/21/2023 022, 04/19/2021, 12/31/2017, Additional history exists HbA1c 03/21/2023 03/21/2022, 04/01, 10/06/2020, Additional history exists CKD HGB USE SMARTSET 68351 04/24/202304/24, 04/24/2022, 03/27/2022, Additional history exists TSH 05/22/2023 05/22/2022, 03/02, 04/19/2021, Additional history exists DXA Scan 07/18/2024 07/18/2022, 12/01, 05/09/2017, Additional history exists Hepatitis B Completed 03/18/2009, 05/30, 05/12/2008 Pneumococcal Vaccine: 65+ Years Completed 03/28/2015, 03/20/2010, 11/15/2004 COLONOSCOPY-EVERY 5 YRS AGES 18-100 Discontinued 02/27/2017, 02/27/2017, 10/17/2004 Zoster Vaccines Completed 06/12/2021, 02/01, 11/04/2012 VITAMIN D LEVEL ONCE IN A LIFETIME-USE SMARTSET# [id number] Completed 11/06/2021, 12/28/2019, 06/24/2017, Additional history exists GARDASIL-HPV IMMUNIZATION SERIES Aged Out No longer eligible based on patient's age to complete this topic MENINGOCOCCAL (MENACTRA/MENVEO) Aged Out No longer eligible based on patient's age to complete this topic documented as of this encounter Medical Devices Implanted Type Area Harvest Supervisor Device Identifier Shelf Expiration Date Model / Serial / Lot Lens Intraoc 21.5 - [id number] - [id number] Implanted:Qty: 1 on 05/12/2019 by Yury Brady MD at OR [facility] Right: Eye [employer] 12/30/2023 [id number] / [id number] / [id number] Lens Intraoc 22.5 - [id number] - [id number] Implanted:Qty: 1 on 04/05/2020 by Yury Brady MD at OR [facility] Left: Eye [employer]OM[employer] 09/28/2024 [id number] / [id number] / [id number] documented as of this encounter Advance Directives Documents on File Type Date Recorded Patient Facilities Specialist Expl anation Advance Directives and Living Will 03/11/2018 Krissy Urban ADVANCE DIR ECTIVE Healthcare Agents on File Name Relationship Healthcare Agent Relationship Communication Krissy Ordonez Adult Child Health Care Agen t (per Health Care Power of Automotive Machinist document) Guille Urban Adult Child Health Care Agen t (per Health Care Power of Automotive Machinist document) Care Teams Cable Television Technician Relationship Specialty Start Date End Date Rafa Bergman MD [address] [place] [address] [place] [address] PCP - General Family Medicine 04/19/21 documented as of this encounter
--- OUTSIDE RECORDS SUMMARY | 2023-02-24 09:20 | External Medical Summary | Summary of Care ---
Author Name Unknown Organization [facility] Address [address] [facility] [place] [address] Phone [phone] Care Team Providers Care Surface Grinder Name Role Phone Rafa Bergman MD Primary Care Provide r Reason for Visit * Reason Comments Follow Up Pt here F/U. Pt stat es "The randhawa cloud is incoming freight clerk and I don't have any floaters" Encounter Details Date Type Department Care Team Description 11/28/2022 Office Visit Ophthalmology, [facility] [address] [place] [address] Pedro Tinsley DO [address] [place] [address] Endophthalmitis purulent, right* Allergies Active Allergy Reactions Severity Noted Date Comments Colchicine Diarrhea 06/16/2018 Daptomycin 01/05/2015 Shortness of breath Imipenem Edema airway High 01/05/2015 Metoprolol Low 01/23/2021 Other reaction(s): fatigue Zoledronic Acid 04/24/2012 Myalgias, fever, chills, vomiting x 2 days Sulfa Antibiotics 12/22/2002 Bactrim--itchy all over, eyes swollen documented as of this encounter (statuses as of 11/28/2022) Medications Medication Sig Dispensed Refills Start Date [...] Additional Information Patient taking differently: 40 mg BID(AM/PM), Informant: At Discharge, Reported on 10/09/2022 Allopurinol [...] for Nausea. 30 Tablet 0 10/04/2022 Active predniSONE 20 MG Oral Tablet (Deltasone) Take 1 Tablet by mouth in the morning. Patient using refills from former script for PCP for as needed gout flares. 0 Active Saccharomyces boulardii 250 MG Oral Packet Take 250 mg by mouth daily. 0 09/28/2022 Active predniSONE 5 MG Oral Tablet (Deltasone) one pill each day 30 Tablet 2 10/11/2022 Active dilTIAZem HCl ER 360 MG Oral [...] needed. Per directions on label. 0 Active Hospital, Clinic, or Other Facility Administered [...] as of this encounter (statuses as of 11/28/2022) Active Problems Problem Noted Date History of [place] (myocardial infarction) History of pulmonary embolism 11/27/2022 Other pulmonary embolism with acute cor pulmonale 10/01/2022 S/P placement of cardiac pacemaker 10/01 Medical home patient encounter Tachy-chintan syndrome 09/10/2022 Gastro-esophageal reflux disease with es ophagitis, without bleeding 12/15/2021 Prediabetes 05/15/2021 Overview: Per Prediabetes protocol Chronic kidney disease, stage 3a 021 Overview: Per CKD protocol History of basal cell carcinoma 07/07/19 21 Hypertensive kidney disease with stage 3 a chronic kidney disease 02/08/2020 Overview: Per CKD protocol - Per CKD protocol S/P angioplasty with stent 11/27/2018 Atherosclerosis of [place] co ronary artery of [place] heart without angina pectoris 07/08/2018 Arthritis of [...] as of this encounter (statuses as of 11/28/2022) Resolved Problems Problem Noted Date Resolved Date Atherosclerosis of coronary artery of [place] heart without angina pectoris 09/10/2022 10/31/2022 Hypothyroidism [...] cava filter 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 07/08/2018 CKD (chronic kidney disease) stage 2, GFR 60-89 ml/min 03/12/2019 documented as of this encounter (statuses as of 11/28/2022) Immunizations Name Administration Dates Next Due COVID-19 mRNA, LNP-s, No Pre serve, 2-Dose Series (Moderna) 02/05/2022,02/28/2021,05/28/2020,04/02 Covid-19 Mrna, Lnp-s, No Pre serve, Booster (Moderna) 08/02/2021,02/07/2021 Hepatitis B, 20+ yrs 03/18/2009,06/14/2008,05/1211/14/2008 Pneumococcal Conjugate Vacc, 13 Valent (Prevnar) 03/28/2015 Pneumococcal Polysaccharide PPV23 (Pneumovax) 03/20/2010 Season Influenza, Quad, PF, Adjuvanted, 65+ Yrs, IM (FLUAD) 01/30/2022 Seasonal Influenza, PF, 6 mo ns & Above, IM , (Flulaval) 12/31/2019,02/17/2019,12/31/2017 Seasonal Influenza, Quadriva lent Hd (Fluzone Hd) [...] Progress Notes * Pedro Tinsley DO - 11/28/2022 9:15 AM EDT [facility] [place] Nursing notes reviewed. Eye vitals reviewed. Mood and Affect: normal HPI: Rehana Moran is a 77 year old female who presents for RVO No other eye complaints. Denies significant pain. Base Eye Exam Visual Acuity (Snellen - Linear) Right Left Dist sc 20/200 20/25 -1 Dist ph sc NI Tonometry (Tonopen, 8:58 AM) Right Left Pressure 10 14 Pupils Light Shape React APD Right 6 dilated Left 4 Round Brisk None Visual Toribio (Counting fingers) Right Left Full Full Dilation Both eyes: 0.5% Proparacaine @ 8:58 AM Dilation #2 Right eye: 2.5% Phenylephrine, 1.0% Mydriacyl @ 8:58 AM Dilation #3 Right eye: 2.5% Phenylephrine, 1.0% Mydriacyl @ 8:59 AM EXTERNAL: The ocular adnexae are unremarkable. SLE: Lids/Lashes: wnl OU Conjunctiva/Sclera: quiet OU Cornea: resolved 1-2+folds OD; clear OS Anterior Chamber: deep and 3+cell, resolved 0.5mm hypopyon OD; deep and quiet OD Iris: resolved mildly engorged vessels OD; normal OS Lens: PCIOL OU Dilated fundus exam OD: vitreous: 4+vit cell, mild vh optic nerve: 0.2, no edema/pallor/NVD macula: +heme, ST BRVO, +1DA flat nevus temporal macula w/ no orange pig/srfluid vessels: +ST BRVO midperiphery: wnl periphery: no RT/RD Dilated fundus exam OS: 09/19/2022 vitreous: clear optic nerve: 0.2, no edema/pallor/NVD macula: wnl vessels: wnl midperiphery: wnl periphery: no RT/RD OCT Interpretation: 11/13/22 OD: resolved superior CME - STABLE, prior improved, prior worse 126um prior [...] debri, no RD OS: n/a A/P: 1. Endophthalmitis OD -s/p Eylea 11/13/22 s/p ceftaz+vanco 11/17/22 -cx: coagulase negative staph -improved -no pain -continue vigamox and PF qid x 7 days, then tid x 7 days, then bid x 7 days -finished levaquin 500mg 7 day course 2. 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 -pt risk factors: HTN, hyperchol--on meds for all -h/o multiple clots -already taking ASA 81 mg qday -h/o PE--on coumadin -s/p Lucentis (07/15/15, 05/24/21, 06/03/15, 04/22/15, 03/11/15, 02/07/15, 01/12/15, 11/03/14, 10/15/14, 09/17/14, 08/20/14, 06/18/14, 05/07/14, 03/30/14, 02/12/14, 01/08/14, 12/02/13) -s/p EYLEA (11/13/22#, 09/19/22, 07/31/22, 06/12/22, 04/18/22, 08/29/21, 07/13/21, 03/29/21, , --, --21, --, 06/02/20, 03-22-20, 01-20-20, 10/29/19, 08-12-20, 05/27/19, 11-25-19, 08-21-19, 06-12-19, 04-03-19, 01-30-18, 11/28/17, 10-03-18, 07-25-18, 05-17-2017, 03-21-17, 01-25-17, 11-30-17, 10-05-17, 07/27/16,--17, 03-16-2015, 12/06/15, 10/21/15) - worse at 9 and 10 and 12 weeks was good in past at 12-14 weeks - best at 6-8 weeks 3. Small Choroidal Nevus OD -low risk -monitor F/u 2 weeks; dilate OD x 2; OCT OD Pedro Tinsley DO documented in this encounter Nursing Notes * JERMAIN Ford - 11/28/2022 8:52 AM EDT Rehana Moran is a 77 year old year old female who presents for 1 week F/U. 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 No Do you drive? yes documented in this encounter Plan of Treatment Upcoming Encounters Date Type Specialty Care Team Description 12/11/2022 Office Visit Ophthalmology Pedro Tinsley, DO [address] [place] [address] 12/24/2022 Nurse Only Rheumatology Makinen, Nurse [address] [place] [phone] 01/01/2023 Office Visit Ophthalmology Pedro Tinsley DO [address] [place] [address] 01/04/2023 Hospital Encounter Endoscopy Nahun Hong MD [address] [place] [address] 01/04/2023 Surgery Endoscopy Nahun Hong MD [address] [place] [address] COLONOSCOPY FLEXIBLE PROXIMAL DIAGNOSTIC 02/12/2023 Cardiac Studies Cardiology Cadence Horne [facility] [address] [place] [address] 02/22/2023 Office Visit Cardiology Charles Ortega, DO [address] [place] [address] 03/06/2023 Office Visit Family Medicine Rafa Bergman MD [address] [place] [address] [place] [address] 03/06/2023 Office Visit Dermatology Kasey Nieto MD 07/05/2023 Office Visit Rheumatology Deangelo Holley MD [address] [place] [address] Scheduled Procedures Name Priority Associated Diagnoses Date/Ti me COLONOSCOPY FLEXIBLE PROXIMAL DIAGNOSTIC Recall Colon cancer screening 01/04/2023 9:00 AM EDT Health Maintenance Due Date Last Done Comments DTaP,Tdap,and Td Vaccines (2 - Td or Tdap) 11/02/2017 11/03/2007 CKD PHOS USE SMARTSET 56283 04/19/202204/01, 11/27/2019, 11/21/2018, Additional history exists COVID-19 Vaccine (7 - Moderna series) 06/05/2022 02/05/2022, 08/02/2021, 02/28/2021, Additional history exists Depression Screening, Annual for Pts 12 and Over 07/17/2022 07/17/2021 GFR 09/25/2022 03/27/2022, 03/02, 10/18/2021, Additional history exists Influenza Vaccine (FLU shot) (#1) 2022 01/30/2022, 12/28/2020, 12/31/2019, Additional history exists Albumin/Creatinine Ratio 03/21/2023 022, 04/19/2021, 12/31/2017, Additional history exists HbA1c 03/21/2023 03/21/2022, 04/01, 10/06/2020, Additional history exists CKD HGB USE SMARTSET 18970 04/24/202304/24, 04/24/2022, 03/27/2022, Additional history exists TSH 05/22/2023 05/22/2022, 03/02, 04/19/2021, Additional history exists DXA Scan 07/18/2024 07/18/2022, 12/01, 05/09/2017, Additional history exists Hepatitis B Completed 03/18/2009, 05/30, 05/12/2008 Pneumococcal Vaccine: 65+ Years Completed 03/28/2015, 03/20/2010, 11/15/2004 COLONOSCOPY-EVERY 5 YRS AGES 18-100 Discontinued 02/27/2017, 02/27/2017, 10/17/2004 Zoster Vaccines Completed 06/12/2021, 02/01, 11/04/2012 VITAMIN D LEVEL ONCE IN A LIFETIME-USE SMARTSET# [id number] Completed 11/06/2021, 12/28/2019, 06/24/2017, Additional history exists GARDASIL-HPV IMMUNIZATION SERIES Aged Out No longer eligible based on patient's age to complete this topic MENINGOCOCCAL (MENACTRA/MENVEO) Aged Out No longer eligible based on patient's age to complete this topic documented as of this encounter Medical Devices Implanted Type Area Leather Grader Device Identifier Shelf Expiration Date Model / Serial / Lot Lens Intraoc 21.5 - [id number] - [id number] Implanted:Qty: 1 on 05/12/2019 by Yury Brady MD at OR [facility] Right: Eye [employer] 12/30/2023 [id number] / [id number] / [id number] Lens Intraoc 22.5 - [id number] - [id number] Implanted:Qty: 1 on 04/05/2020 by Yury Brady MD at OR [facility] Left: Eye [employer]OM[employer] 09/28/2024 [id number] / [id number] / [id number] documented as of this encounter Visit Diagnoses Diagnosis Endophthalmitis purulent, right- Primary Colon cancer screening Special screening for malignant neoplasms, colon documented in this encounter Advance Directives Documents on File Type Date Recorded Patient Doctor Of Dental Medicine Expl anation Advance Directives and Living Will 03/11/2018 Krissy Urban ADVANCE DIR ECTIVE Healthcare Agents on File Name Relationship Healthcare Agent Relationship Communication Krissy Ordonez Adult Child Health Care Agen t (per Health Care Power of Bottom Precipitator Operator document) Guille Urban Adult Child Health Care Agen t (per Health Care Power of Bottom Precipitator Operator document) Care Teams Surface Grinder Relationship Specialty Start Date End Date Rafa Bergman MD [address] [place] [address] [place] [address] PCP - General Family Medicine 04/19/21 documented as of this encounter
--- OUTSIDE RECORDS SUMMARY | 2023-02-24 09:20 | External Medical Summary | Summary of Care ---
Author Name Unknown Organization [facility] Address [address] [facility] [place] [address] Phone [phone] Care Team Providers Care Microsoft Access Developer Name Role Phone Rafa Bergman MD Primary Care Provide r Reason for Visit * Reason Comments eRx-Medication Refill Encounter Details Date Type Department Care Team Description 12/28/2022 Refill Rheumatology [address] [place] [phone] Peter Le MD [address] [facility] [place] [address] Allergies Active Allergy Reactions Severity Noted Date Comments Colchicine Diarrhea 06/16/2018 Daptomycin 01/05/2015 Shortness of breath Imipenem Edema airway High 01/05/2015 Metoprolol Low 01/23/2021 Other reaction(s): fatigue Zoledronic Acid 04/24/2012 Myalgias, fever, chills, vomiting x 2 days Sulfa Antibiotics 12/22/2002 Bactrim--itchy all over, eyes swollen documented as of this encounter (statuses as of 12/31/2022) Medications Medication Sig Dispensed Refills Start Date [...] For abdominal pain. 120 Capsule 11 2 Active Nitroglycerin 0.4 MG Sublingual Tablet Sublingual [...] gout flares.. 90 Tablet 1 3 Active predniSONE 5 MG Oral Tablet (Deltasone) TAKE ONE TABLET BY MOUTH EVERY DAY 30 Tablet 6 3 Active predniSONE 5 MG Oral Tablet (Deltasone) one pill each day 30 Tablet 2 3 01/01/20 23 Discontinued Hospital, Clinic, or Other Facility [...] as of this encounter (statuses as of 12/31/2022) Active Problems Problem Noted Date History of [place] (myocardial infarction) History of [...] S/P angioplasty with stent 11/27/2018 Atherosclerosis of [place] co ronary artery of [place] heart without angina pectoris 07/08/2018 Arthritis of [...] as of this encounter (statuses as of 12/31/2022) Resolved Problems Problem Noted Date Resolved Date Atherosclerosis of coronary artery of [place] heart without angina pectoris 09/10/2022 10/31/2022 Hypothyroidism [...] cava filter 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 07/08/2018 CKD (chronic kidney disease) stage 2, GFR 60-89 ml/min 03/12/2019 documented as of this encounter (statuses as of 12/31/2022) Immunizations Name Administration Dates Next Due COVID-19 [...] encounter Miscellaneous Notes * Telephone Encounter - Bassam Simpson RPh - 12/31/2022 12:06 PM EDTSigned Prescriptions: Disp Refills predniSONE 5 MG Oral Tablet (Deltasone) 30 Tab*6 Sig: TAKE ONE TABLET BY MOUTH EVERY DAYAuthorizing Provider: PETER LE User: BASSAM SIMPSON--- * Telephone Encounter - Bassam Simpson RP - 12/31/2022 12:00 PM EDT Multiple prescriptions for Prednisone active if pt's chart currently. Called patient to verify what dose she is currently taking daily. Pt said that she remains on Prednisone 5 mg daily. She only uses the higher strength tablets when she is having a flare or gout. Rheumatology: Refill Request(s) Per review of the refill parameters, Medication was refilled Bassam Simpson RPh [facility] Clinical Pharmacist Rheumatology Department 12/31/2022,12:05 PM * Telephone Encounter - Interface, E-Rx Ss Inbound - 12/30/2022 1:06 PM EDT Pending Prescriptions: Disp Refills predniSONE 5 MG Oral Tablet [Pharmacy Med *30 Tab*0 Sig: TAKE ONE TABLET BY MOUTH EVERY DAY documented in this encounter Plan of Treatment Upcoming Encounters Date Type Specialty Care Team Description 01/03/2023 Office Visit Ophthalmology Brian Gagnon DO [address] [place] [address] Nurse Екатерина Ophthalmology [address] [place] [address] 01/16/2023 Office Visit Ophthalmology Pedro Tinsley DO [address] [place] [address] 02/12/2023 Cardiac Studies Cardiology [facility] [address] [place] [address] 02/22/2023 Office Visit Cardiology Charels Ortega DO [address] [place] [address] 03/06/2023 Office Visit Family Medicine Rafa Bergman MD [address] [place] [address] [place] [address] 03/06/2023 Office Visit Dermatology Kasey Nieto MD 05/16/2023 Hospital Encounter Endoscopy Nahun Hong MD [address] [place] [address] 05/16/2023 Surgery Endoscopy Nahun Hong MD [address] [place] [address] COLONOSCOPY FLEXIBLE PROXIMAL DIAGNOSTIC 07/05/2023 Office Visit Rheumatology Peter Le MD [facility] [place] [address] Scheduled Procedures Name Priority Associated Diagnoses Date/Ti me COLONOSCOPY FLEXIBLE PROXIMAL DIAGNOSTIC Colon cancer screening 05/16/2023 10:15 AM EST Health Maintenance Due Date Last Done Comments DTaP,Tdap,and Td Vaccines (2 - Td or Tdap) 11/02/2017 11/03/2007 CKD PHOS USE SMARTSET 97764 04/19/202204/01, 11/27/2019, 11/21/2018, Additional history exists COVID-19 Vaccine (7 - Moderna series) 06/05/2022 02/05/2022, 08/02/2021, 02/28/2021, Additional history exists Depression Screening 07/17/2022 07/17/2021 GFR 09/25/2022 03/27/2022, 03/02, 10/18/2021, Additional history exists Influenza Vaccine (FLU shot) (#1) 2022 01/30/2022, 12/28/2020, 12/31/2019, Additional history exists Albumin/Creatinine Ratio 03/21/2023 022, 04/19/2021, 12/31/2017, Additional history exists HbA1c 03/21/2023 03/21/2022, 04/01, 10/06/2020, Additional history exists CKD HGB USE SMARTSET 77326 04/24/202304/24, 04/24/2022, 03/27/2022, Additional history exists TSH 05/22/2023 05/22/2022, 03/02, 04/19/2021, Additional history exists DXA Scan 07/18/2024 07/18/2022, 12/01, 05/09/2017, Additional history exists Hepatitis B Completed 03/18/2009, 05/30, 05/12/2008 Pneumococcal Vaccine: 65+ Years Completed 03/28/2015, 03/20/2010, 11/15/2004 COLONOSCOPY-EVERY 5 YRS AGES 18-100 Discontinued 02/27/2017, 02/27/2017, 10/17/2004 Zoster Vaccines Completed 06/12/2021, 02/01, 11/04/2012 VITAMIN D LEVEL ONCE IN A LIFETIME-USE SMARTSET# 49438 Completed 11/06/2021, 12/28/2019, 06/24/2017, Additional history exists GARDASIL-HPV IMMUNIZATION SERIES Aged Out No longer eligible based on patient's age to complete this topic MENINGOCOCCAL (MENACTRA/MENVEO) Aged Out No longer eligible based on patient's age to complete this topic documented as of this encounter Medical Devices Implanted Type Area Front Office Spec Device Identifier Shelf Expiration Date Model / Serial / Lot Lens Intraoc 21.5 - [id number] - [id number] Implanted:Qty: 1 on 05/12/2019 by Yury Brady MD at OR [facility] Right: Eye [employer] 12/30/2023 [id number] / [id number] / [id number] Lens Intraoc 22.5 - [id number] - [id number] Implanted:Qty: 1 on 04/05/2020 by Yury Brady MD at OR [facility] Left: Eye [employer]OMB 09/28/2024 [id number] / [id number] / [id number] documented as of this encounter Advance Directives Documents on File Type Date Recorded 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 Advance Directives and Living Will 03/11/2018 Kirssy Urban ADVANCE DIR ECTIVE Healthcare Agents on File Name Relationship Healthcare Agent Relationship Communication Krissy Ordonez Adult Child Health Care Agen t (per Health Care Power of Paint Line Supervisor document) Guille Urban Adult Child Health Care Agen t (per Health Care Power of Paint Line Supervisor document) Care Teams Microsoft Access Developer Relationship Specialty Start Date End Date Rafa Bergman MD [address] [place] [address] [place] [address] PCP - General Family Medicine 04/19/21 documented as of this encounter
--- OUTSIDE RECORDS SUMMARY | 2023-02-24 09:20 | External Medical Summary | Summary of Care ---
Author Name Unknown Organization [facility] Address [address] [facility] [address] Phone [phone] Care Team Providers Care Lathe Mechanic Name Role Phone Rafa Bergman MD Primary Care Provide r Reason for Visit * Reason Onset Date Comments Medication Administration prolia Medication Administration 12/24/2022 Prolia Encounter Details Date Type Department Care Team Description 12/24/2022 Nurse Only Rheumatology [address] [place] [address] [place], Nurse Rheum [address] [place] [address] Medication Administration (prolia); Medica... Allergies Active Allergy Reactions Severity Noted Date Comments Colchicine Diarrhea 06/16/2018 Daptomycin 01/05/2015 Shortness of breath Imipenem Edema airway High 01/05/2015 Metoprolol Low 01/23/2021 Other reaction(s): fatigue Zoledronic Acid 04/24/2012 Myalgias, fever, chills, vomiting x 2 days Sulfa Antibiotics 12/22/2002 Bactrim--itchy all over, eyes swollen documented as of this encounter (statuses as of 12/24/2022) Medications Medication Sig Dispensed Refills Start Date [...] gout flares.. 90 Tablet 1 12/24/2022 Active predniSONE 20 MG Oral Tablet (Deltasone) Take 1 Tablet by mouth in the morning. Patient using refills from former script for PCP for as needed gout flares. 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 1.5 mg IJ PRN 09/19/2022 4 Active Denosumab (Prolia) subcut inj 60 mgIndications:Senile osteoporosis 60 mg SC ONCE 12/24/2022 12/24/2022 Ended documented as of this encounter (statuses as of 12/24/2022) Active Problems Problem Noted Date History of [place] (myocardial infarction) History of pulmonary embolism 11/27/2022 [...] S/P angioplasty with stent 11/27/2018 Atherosclerosis of [place] co ronary artery of [place] heart without angina pectoris 07/08/2018 Arthritis of [...] as of this encounter (statuses as of 12/24/2022) Resolved Problems Problem Noted Date Resolved Date Atherosclerosis of coronary artery of [place] heart without angina pectoris 09/10/2022 10/31/2022 Hypothyroidism [...] cava filter 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 07/08/2018 CKD (chronic kidney disease) stage 2, GFR 60-89 ml/min 03/12/2019 documented as of this encounter (statuses as of 12/24/2022) Immunizations Name Administration Dates Next Due COVID-19 [...] Date Smoking Tobacco: Never Smokeless Tobacco: Never Tobacco Cessation:Counseling Given: Not Answered Comments:second hand smoke exposure - 10 years Alcohol Use Standard Drinks/Week [...] Sign Reading Time Taken Comments Blood Pressure - - Pulse - - Temperature 36 C (96.8 F) 12/24/2022 9:00 AM EDT Respiratory Rate - - Oxygen Saturation - - Inhaled Oxygen Concentration - - Weight - - Height - - Body Mass Index - - documented in this encounter Progress Notes * Naya Brown LPN - 12/24/2022 9:33 AM EDT Rehana Moran presents today for administration of Prolia. She understands the benefits and risks of this treatment. An educational pamphlet was given to the patient. Prolia 60 mg was administered subcutaneously. The patient tolerated the procedure without problems. She will return in 6 months for the next injection and evaluation. Naya Brown LPN documented in this encounter Nursing Notes * Naya Brown LPN - 12/24/2022 8:55 AM EDT Chief Complaint Patient presents with Medication Administration prolia documented in this encounter Plan of Treatment Upcoming Encounters Date Type Specialty Care Team Description 01/01/2023 Office Visit Ophthalmology Pedro Tinsley, DO [address] [place] [address] 01/04/2023 Hospital Encounter Endoscopy Nahun Hong MD [address] [place] [address] 01/04/2023 Surgery Endoscopy Nahun Hong MD [address] [place] [address] COLONOSCOPY FLEXIBLE PROXIMAL DIAGNOSTIC 02/12/2023 Cardiac Studies Cardiology [facility] [address] [place] [address] 02/22/2023 Office Visit Cardiology Charles Ortega, DO [address] [place] [address] 03/06/2023 Office Visit Family Medicine Rafa Bergman MD [address] [place] [address] [place] [address] 03/06/2023 Office Visit Dermatology Kasey Nieto MD 07/05/2023 Office Visit Rheumatology Deangelo Holley MD [address] [place] [address], [place] [address] Scheduled Procedures Name Priority Associated Diagnoses Date/Ti me COLONOSCOPY FLEXIBLE PROXIMAL DIAGNOSTIC Recall Colon cancer screening 01/04/2023 9:00 AM EDT Health Maintenance Due Date Last Done Comments DTaP,Tdap,and Td Vaccines (2 - Td or Tdap) 11/02/2017 11/03/2007 CKD PHOS USE SMARTSET 80654 04/19/202204/01, 11/27/2019, 11/21/2018, Additional history exists COVID-19 [...] Additional history exists CKD HGB USE SMARTSET 76282 04/24/202304/24, 04/24/2022, 03/27/2022, Additional history exists TSH 05/22/2023 05/22/2022, 03/02, 04/19/2021, Additional history exists DXA Scan 07/18/2024 07/18/2022, 12/01, 05/09/2017, Additional history exists Hepatitis B Completed 03/18/2009, 05/30, 05/12/2008 Pneumococcal Vaccine: 65+ Years Completed 03/28/2015, 03/20/2010, 11/15/2004 COLONOSCOPY-EVERY 5 YRS AGES 18-100 Discontinued 02/27/2017, 02/27/2017, 10/17/2004 Zoster Vaccines Completed 06/12/2021, 02/01, 11/04/2012 VITAMIN D LEVEL ONCE IN A LIFETIME-USE SMARTSET# [id number] Completed 11/06/2021, 12/28/2019, 06/24/2017, Additional history exists GARDASIL-HPV IMMUNIZATION SERIES Aged Out No longer eligible based on patient's age to complete this topic MENINGOCOCCAL (MENACTRA/MENVEO) Aged Out No longer eligible based on patient's age to complete this topic documented as of this encounter Medical Devices Implanted Type Area Sagger Maker Device Identifier Shelf Expiration Date Model / Serial / Lot Lens Intraoc 21.5 - [id number] - [id number] Implanted:Qty: 1 on 05/12/2019 by Yury Brady MD at OR [facility] Right: Eye [employer] 12/30/2023 [id number] / [id number] / [id number] Lens Intraoc 22.5 - [id number] - [id number] Implanted:Qty: 1 on 04/05/2020 by Yury Brady MD at OR [facility] Left: Eye [employer] 09/28/2024 [id number] / [id number] / [id number] documented as of this encounter Visit Diagnoses Diagnosis Senile osteoporosis- Primary Colon cancer screening Special screening for malignant neoplasms, colon documented in this encounter Administered Medications Inactive Administered Medications - up to 3 most recent administrations Medication Order MAR Action Action Date Dose Rate Site Denosumab (Prolia) subcut inj 60 mg 60 mg, Subcutaneous, ONCE, On 12/24/22 at 1000, For 1 dose Given 12/24/2022 9:34 AM EDT 60 mg Arm L eft Upper documented in this encounter Advance Directives Documents on File Type Date Recorded 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
--- OUTSIDE RECORDS SUMMARY | 2023-02-24 09:20 | External Medical Summary | Summary of Care ---
Author Name Unknown Organization [facility] Address [address] [facility] [place] [address] Phone [phone] Care Team Providers Care Desk Editor Name Role Phone Rafa Bergman MD Primary Care Provide r Reason for Visit * Reason Onset Date Comments Advice 12/31/2022 Encounter Details Date Type Department Care Team Description 12/31/2022 Telephone Ophthalmology, [facility] [address] [place] [address] Pedro Tinsley, [address] [place] [address] Advice Allergies Active Allergy Reactions Severity Noted Date [...] gout flares.. 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 Gagnon in [place] for vitrectomy evaluation on 01/03 @ 7:15am. Patient aware and agreeable. ASHLEY Bolaños 12/31/2022 11:43 AM * Telephone Encounter - ASHLEY Bolaños - 12/31/2022 9:08 AM EDT Patient called this morning stating her eye is no better - she's seeing a lot of floaters (big floater that covers vision of eye and its always moving so she doesn't feel stable). It is causing headaches and makes her sick to her stomach. Patient is wondering if there's anything she can do that would help? Thanks, ASHLEY Bolaños 12/31/2022 9:16 AM documented in this encounter Plan of Treatment Upcoming Encounters Date Type Specialty Care Team Description 01/03/2023 Office Visit Ophthalmology Brian Gagnon, [address] [place] [address] [place] Nurse Ophthalmology [address] [place] [address] 01/16/2023 Office Visit Ophthalmology Pedro Tinsley, DO [address] [place] [address] 02/12/2023 Cardiac Studies Cardiology [facility] [address] [place] [address] 02/22/2023 Office Visit Cardiology Charles Ortega, DO [address] [place] [address] 03/06/2023 Office Visit Family Medicine Rafa Bergman MD [address] [place] [address] [place] [address] 03/06/2023 Office Visit Dermatology Kasey Nieto MD 05/16/2023 Hospital Encounter Endoscopy Nahun Hong MD [address] [place] [address] 05/16/2023 Surgery Endoscopy Nahun Hong MD [address] [place] [address] COLONOSCOPY FLEXIBLE PROXIMAL DIAGNOSTIC 07/05/2023 Office Visit Rheumatology Deangelo Holley MD [facility] [place] [address] Scheduled Procedures Name Priority Associated Diagnoses Date/Ti me COLONOSCOPY FLEXIBLE PROXIMAL DIAGNOSTIC Colon cancer screening 05/16/2023 10:15 AM EST Health Maintenance Due Date Last Done Comments DTaP,Tdap,and Td Vaccines (2 - Td or Tdap) 11/02/2017 11/03/2007 CKD PHOS USE SMARTSET 62340 04/19/202204/01, 11/27/2019, 11/21/2018, Additional history exists COVID-19 [...] Additional history exists CKD HGB USE SMARTSET 70675 04/24/202304/24, 04/24/2022, 03/27/2022, Additional history exists TSH 05/22/2023 05/22/2022, 03/02, 04/19/2021, Additional history exists DXA Scan 07/18/2024 07/18/2022, 12/01, 05/09/2017, Additional history exists Hepatitis B Completed 03/18/2009, 05/30, 05/12/2008 Pneumococcal Vaccine: 65+ Years Completed 03/28/2015, 03/20/2010, 11/15/2004 COLONOSCOPY-EVERY 5 YRS AGES 18-100 Discontinued 02/27/2017, 02/27/2017, 10/17/2004 Zoster Vaccines Completed 06/12/2021, 02/01, 11/04/2012 VITAMIN D LEVEL ONCE IN A LIFETIME-USE SMARTSET# [id number] Completed 11/06/2021, 12/28/2019, 06/24/2017, Additional history exists GARDASIL-HPV IMMUNIZATION SERIES Aged Out No longer eligible based on patient's age to complete this topic MENINGOCOCCAL (MENACTRA/MENVEO) Aged Out No longer eligible based on patient's age to complete this topic documented as of this encounter Medical Devices Implanted Type Area Clinical Review Specialist Device Identifier Shelf Expiration Date Model / Serial / Lot Lens Intraoc 21.5 - [id number] - [id number] Implanted:Qty: 1 on 05/12/2019 by Yury Brady MD at OR [facility] Right: Eye [employer] 12/30/2023 [id number] / [id number] / [id number] Lens Intraoc 22.5 - [id number] - [id number] Implanted:Qty: 1 on 04/05/2020 by Yury Brady MD at OR [facility] Left: Eye [employer] 09/28/2024 [id number] / [id number] / [id number] documented as of this encounter Advance Directives Documents on File Type Date Recorded 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
--- OUTSIDE RECORDS SUMMARY | 2023-02-24 09:20 | External Medical Summary | Summary of Care ---
Author Name Unknown Organization [facility] Address [address] [place] [address] Phone [phone] Care Team Providers Care Char Filter Operator Helper Name Role Phone Rafa Bergman MD Primary Care Provide r Reason for Visit * Reason Comments Re-Check Encounter Details Date Type Department Care Team Description 11/27/2022 Office Visit Family Medicine [address] [place] [id number] Rafa Bergman MD [address] [place] [address] [place] [id number] HTN, goal below 140/90*; History of CA (myocardial infarction); 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, unspecified complication status; Right endophthalmia; History of DVT (deep vein thrombosis); History of pulmonary embolism Allergies Active Allergy Reactions Severity Noted Date Comments Colchicine Diarrhea 06/16/2018 Daptomycin 01/05/2015 Shortness of breath Imipenem Edema airway High 01/05/2015 Metoprolol Low 01/23/2021 Other reaction(s): fatigue Zoledronic Acid 04/24/2012 Myalgias, fever, chills, vomiting x 2 days Sulfa Antibiotics 12/22/2002 Bactrim--itchy all over, eyes swollen documented as of this encounter (statuses as of 11/27/2022) Medications Medication Sig Dispensed Refills Start Date [...] as of this encounter (statuses as of 11/27/2022) Active Problems Problem Noted Date History of [...] protocol History of basal cell carcinoma 07/07/19 Hypertensive kidney disease with stage 3 a chronic kidney disease 02/08/2020 Overview: Per CKD protocol - Per CKD protocol S/P angioplasty with stent 11/27/2018 Atherosclerosis of [place] co ronary artery of [place] heart without angina pectoris 07/08/2018 Arthritis of [...] as of this encounter (statuses as of 11/27/2022) Resolved Problems Problem Noted Date Resolved Date Atherosclerosis of coronary artery of [place] heart without angina pectoris 09/10/2022 10/31/2022 Hypothyroidism [...] cava filter 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 07/08/2018 CKD (chronic kidney disease) stage 2, GFR 60-89 ml/min 03/12/2019 documented as of this encounter (statuses as of 11/27/2022) Immunizations Name Administration Dates Next Due COVID-19 [...] Sign Reading Time Taken Comments Blood Pressure 122/72 11/27/2022 9:47 AM EDT Pulse 60 11/27/2022 9:47 AM EDT Temperature 36.2 C (97.2 F) 11/27/2022 9:47 AM ED T Respiratory Rate 16 11/27/2022 9:47 AM EDT Oxygen Saturation - - Inhaled Oxygen Concentration - - Weight 73.9 kg (163 lb) 11/27/2022 9:47 AM EDT Height 160 cm (5' 3") 11/27/2022 9:47 AM EDT Body Mass Index 28.87 11/27/2022 9:47 AM EDT documented in this encounter Progress Notes * Rafa Bergman MD - 11/27/2022 9:56 AM EDT Subjective: HPI: Rehana Moran is a 77 year old female with hx of hypothyroidism, HLD, HTN, hx of CA, CAD s/p stent, GERD, CKD III, osteoporosis, hx of DVT/PE x2 (2022), Renal cyst, tachy-chintan syndrome s/p dual chamber pacemaker, prediabetes, macular degeneration, R retinal vein occlusion, B/L TKA, Gout seen for R eye endophthalmitis: - still having blurry vision ---- improving - peripheral vision is good DVT and PE: - currently on eliquis - also on aspirin HTN: - currently on cardizem ER 360mg daily, Atenolol 12.5mg daily - denied any dizziness or MAN Patient Active Problem List Diagnosis Code Senile [...] Arthritis of left ankle M19.072 Atherosclerosis of [place] coronary artery of [place] heart without angina pectoris I25.10 S/P angioplasty [...] placement of cardiac pacemaker Z95.0 History of CA (myocardial infarction) I25.2 History of pulmonary embolism Z86.711 Current Outpatient Medications Medication Sig Dispense Refill [...] affected area. Apply to knees as needed Dicyclomine HCl 10 MG Oral Capsule (Bentyl) Take by mouth 1 Capsule as needed in the morning AND 1 Capsule as needed at noon AND 1 Capsule as needed in the evening AND 1 Capsule as needed before bedtime for Pain or Gas. For abdominal pain. 120 Capsule 11 Nitroglycerin 0.4 MG Sublingual Tablet Sublingual (Nitrostat) Place under the tongue 1 Tablet as needed for Pain, Chest. 25 Tablet 1 Atenolol 25 MG Oral Tablet (Tenormin) take 1/2 tablet daily 30 Tablet 5 Terconazole 0.8 % Vaginal Cream Administer 1 [...] as needed for Nausea. 30 Tablet 0 predniSONE 20 MG Oral Tablet (Deltasone) Take 1 Tablet by mouth in the morning. Patient using refills from former script for PCP for as needed gout flares. Saccharomyces boulardii 250 MG Oral Packet Take 250 mg by mouth daily. predniSONE 5 MG Oral Tablet (Deltasone) one pill each day 30 Tablet 2 dilTIAZem HCl ER 360 MG Oral Tablet [...] bedtime as needed. Per directions on label. Current Facility-Administered Medications Medication Dose Route Frequency Provider Last Rate Last Admin Aflibercept (Eylea) intraviteal prefilled syringe 2 mg 2 mg Intravitreal PRN Pedro Davisna, DO 2 mg at 11/13/22 1525 ROPivacaine (Naropin) inj 1.5 mg 1.5 mg Injection PRN Pedro Patel Cessna, DO 1.5 mg at 11/13/22 1525 Past Medical History: Diagnosis Date Allergic rhinitis Atherosclerotic heart disease of [place] coronary artery with angina pectoris ([facility]) Benign neoplasm of skin Benign paroxysmal vertigo 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 10/28/2013 Chronic sinusitis 10/28/2013 CKD (chronic kidney disease) stage 2, GFR 60-89 ml/min Degenerative disc disease, cervical 05/18/2016 Derangement of meniscus right knee Diverticulitis of colon DVT (deep venous thrombosis) ([facility]) 02/28/2015 Dyslipidemia, goal LDL below 100 09/15/2013 [...] shoulder NSTEMI (non-ST elevated myocardial infarction) ([facility]) 04/28/2018 [facility], cathed and LAD stented with AMIE, RCA [...] to hypertension, elevated TSH, small pericardial effusion [facility] Pericarditis as complication of acute myocardial infarction (HCC) 05/15/2018 [facility] colchicine not tolerated well. Pericarditis as complication of acute myocardial infarction (HCC) 06/05/2018 [facility] steroids Postmenopausal atrophic vaginitis 09/15/2013 Presence of vena cava filter PROLAPSE OF VAGINAL WALL 10/28/2000 Pulmonary embolism and infarction ([facility]) 08/30/2009 Pulmonary embolus ([facility]) 1999 Retroperitoneal bleed 02/28/2015 Sebaceous hyperplasia, Rt forehead 10/05/97 01/28/2002 Senile osteoporosis 05/14/2008 Traumatic rupture of left posterior tibial tendon 12/07/14 Urinary frequency 09/15/2013 Viral warts, unspecified Condylomata Vitamin B12 deficiency 05/12/2014 Vitamin D insufficiency 05/12/2014 Past Surgical History: Procedure Laterality Date ARTHROPLASTY KNEE TOTAL 08/18/2009 right knee ARTHROPLASTY KNEE TOTAL 11/11/2014 left knee- [facility]- Dr. Lopez CARDIAC CATH-CARDIOLOGY ONLY 04/28/2018 AMIE to LAD, PCI to RCA COLONOSCOPY 09/2004 diverticulosis COLONOSCOPY, DIAGNOSTIC (RECTUM) 02/27/2017 diverticulosis, repeat 5 yrs/COLONOSCOPY FLEXIBLE PROXIMAL DIAGNOSTIC performed by Ford Pantoja MD at ENDOSCOPY [facility] CTA CHEST NON-CORONARY W CONTRAST 11/13/2018 no [...] Tinsley IR FILTER PLACEMENT VENA CAVA 10/2014 [facility] MISCELLANEOUS ORDER ([facility] ONLY) 12/02/2013-12/02/2014 LUCENTIS 0.5MG CONSENT SIGNED OD; DR LAUREANO MATHEWSCELLYAMIL ORDER ([facility] ONLY) Right 01/12/2015-01/13/2016 LUCENTIS 0.5MG CONSENT OD SIGNED; DR LAUREANO MATHEWSCELLYAMIL ORDER ([facility] ONLY) Right 10/21/2015-10/20/2016 EYLEA OD CONSENT SIGNED, Dr. Laureano MATHEWSCELLYAMIL ORDER ([facility] ONLY) Right 11/30/2016-11/30/2017 Eylea OD consnet signed, Dr.Cessna MATHEWSCELLANEOUS ORDER ([facility] ONLY) Right 01/30/18-01/30/19 EYLEA OD CONSENT SIGNED, Dr. 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 NAD, well developed HEENT:.R eye:normal conjunctiva but pupil is dilated and non reactive to light Cardiac:. Normal S1, S2, no murmur Lungs:. CTA, no wheezing or crackles MSK:. Normal gait Psych:. AAOx3, normal affect ASSESSMENT/PLAN: HTN, goal below 140/90 (Primary) - BP wnl History of CA (myocardial infarction) - on aspirin, crestor and Diltiazem 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, unspecified complication status & Right endophthalmia - on aspirin - currently receiving tx for infection: symptoms are improving\\ History of DVT (deep vein thrombosis) & History of pulmonary embolism - on eliquis Follow Up: Return in about 3 months (around 02/27/2023). Rafa Bergman MD Family medicine, [place] [phone] documented in this encounter Nursing Notes * Carol Cadet RN - 11/27/2022 9:47 AM EDT 2 mo check up. Pt is being treated for an eye infection, on 2 different drops currently documented in this encounter Plan of Treatment Upcoming Encounters Date Type Specialty Care Team Description 11/28/2022 Office Visit Ophthalmology Pedro Tinsley, DO [address] [place] [id number] 12/24/2022 Nurse Only Rheumatology [place], Nurse [address] [place] [phone] 01/01/2023 Office Visit Ophthalmology Pedro Tinsley, DO [address] [place] [address] 01/04/2023 Hospital Encounter Endoscopy Nahun Hong MD [address] [place] [address] 01/04/2023 Surgery Endoscopy Nahun Hong MD [address] [place] [address] COLONOSCOPY FLEXIBLE PROXIMAL DIAGNOSTIC 02/12/2023 Cardiac Studies Cardiology [facility] [address] [place] [address] 02/22/2023 Office Visit Cardiology Charles Ortega, DO [address] [place] [address] 03/06/2023 Office Visit Family Medicine Rafa Bergman MD [address] [place] [address] [place] [id number] 03/06/2023 Office Visit Dermatology Kasey Nieto MD 07/05/2023 Office Visit Rheumatology Deangelo Holley MD [address] [place] [address], [place] [address] Scheduled Procedures Name Priority Associated Diagnoses Date/Ti me COLONOSCOPY FLEXIBLE PROXIMAL DIAGNOSTIC Recall Colon cancer screening 01/04/2023 9:00 AM EDT Health Maintenance Due Date Last Done Comments DTaP,Tdap,and Td Vaccines (2 - Td or Tdap) 11/02/2017 11/03/2007 CKD PHOS USE SMARTSET 30881 04/19/202204/01, 11/27/2019, 11/21/2018, Additional history exists COVID-19 [...] Additional history exists CKD HGB USE SMARTSET 16502 04/24/202304/24, 04/24/2022, 03/27/2022, Additional history exists TSH 05/22/2023 05/22/2022, 03/02, 04/19/2021, Additional history exists DXA Scan 07/18/2024 07/18/2022, 12/01, 05/09/2017, Additional history exists Hepatitis B Completed 03/18/2009, 05/30, 05/12/2008 Pneumococcal Vaccine: 65+ Years Completed 03/28/2015, 03/20/2010, 11/15/2004 COLONOSCOPY-EVERY 5 YRS AGES 18-100 Discontinued 02/27/2017, 02/27/2017, 10/17/2004 Zoster Vaccines Completed 06/12/2021, 02/01, 11/04/2012 VITAMIN D LEVEL ONCE IN A LIFETIME-USE SMARTSET# [id number] Completed 11/06/2021, 12/28/2019, 06/24/2017, Additional history exists GARDASIL-HPV IMMUNIZATION SERIES Aged Out No longer eligible based on patient's age to complete this topic MENINGOCOCCAL (MENACTRA/MENVEO) Aged Out No longer eligible based on patient's age to complete this topic documented as of this encounter Medical Devices Implanted Type Area Casting Machine Operator Helper Device Identifier Shelf Expiration Date Model / Serial / Lot Lens Intraoc 21.5 - [id number] - [id number] Implanted:Qty: 1 on 05/12/2019 by Yury Brady MD at OR [facility] Right: Eye [employer]OM[employer] 12/30/2023 [id number] / [id number] / [id number] Lens Intraoc 22.5 - [id number] - [id number] Implanted:Qty: 1 on 04/05/2020 by Yury Brady MD at OR [facility] Left: Eye [employer]OM[employer] 09/28/2024 [id number] / [id number] / [id number] documented as of this encounter Visit Diagnoses Diagnosis HTN, goal below 140/90- Primary Unspecified essential hypertension History of CA (myocardial infarction) Old myocardial infarction 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, unspecified complication status Right endophthalmia Purulent endophthalmitis, unspecified History of DVT (deep vein thrombosis) Personal history of venous thrombosis and embolism History of pulmonary embolism Personal history of pulmonary embolism Colon cancer screening Special screening for malignant neoplasms, colon documented in this encounter Advance Directives Documents on File Type Date Recorded Patient Director Of Accreditation Expl anation Advance Directives and Living Will 03/11/2018 Krissy Urban ADVANCE DIR ECTIVE Healthcare Agents on File Name Relationship Healthcare Agent Relationship Communication Krissy Ordonez Adult Child Health Care Agen t (per Health Care Power of Warp Knitter document) Guille Urban Adult Child Health Care Agen t (per Health Care Power of Warp Knitter document) Care Teams Char Filter Operator Helper Relationship Specialty Start Date End Date Rafa Bergman MD [address] [place] [address] [place] [id number] PCP - General Family Medicine 04/19/21 documented as of this encounter
--- OUTSIDE RECORDS SUMMARY | 2023-02-24 09:20 | External Medical Summary | Summary of Care ---
Author Name Unknown Organization [facility] Address [address] [facility] [place] [address] Phone [phone] Care Team Providers Care Computer Systems Security Analyst Name Role Phone Rafa Bergman MD Primary Care Provide r Reason for Visit * Reason Comments Acute Encounter Details Date Type Department Care Team Description 12/19/2022 Office Visit Family Medicine [address] [place] [phone] Rafa Bergman MD [address] [place] [address] [place] [phone] Hip pain, right*; Acute pain of right knee Allergies Active Allergy Reactions Severity Noted Date Comments Colchicine Diarrhea 06/16/2018 Daptomycin 01/05/2015 Shortness of breath Imipenem Edema airway High 01/05/2015 Metoprolol Low 01/23/2021 Other reaction(s): fatigue Zoledronic Acid 04/24/2012 Myalgias, fever, chills, vomiting x 2 days Sulfa Antibiotics 12/22/2002 Bactrim--itchy all over, eyes swollen documented as of this encounter (statuses as of 12/19/2022) Medications Medication Sig Dispensed Refills Start Date [...] 2 days 30 Tablet 0 12/19/2022 Active Hospital, Clinic, or Other Facility Administered [...] as of this encounter (statuses as of 12/19/2022) Active Problems Problem Noted Date History of HI (myocardial infarction) History of pulmonary embolism 11/27/2022 [...] S/P angioplasty with stent 11/27/2018 Atherosclerosis of [place] co ronary artery of [place] heart without angina pectoris 07/08/2018 Arthritis of [...] as of this encounter (statuses as of 12/19/2022) Resolved Problems Problem Noted Date Resolved Date Atherosclerosis of coronary artery of [place] heart without angina pectoris 09/10/2022 10/31/2022 Hypothyroidism [...] cava filter Atherosclerotic heart diseas e of [place] coronary artery with angina pectoris 07/08/2018 CKD (chronic kidney disease) stage 2, GFR 60-89 ml/min 03/12/2019 documented as of this encounter (statuses as of 12/19/2022) Immunizations Name Administration Dates Next Due COVID-19 [...] Never Smokeless Tobacco: Never Tobacco Cessation:Counseling Given: No Comments:second hand smoke exposure - 10 years [...] Sign Reading Time Taken Comments Blood Pressure 128/86 12/19/2022 10:32 AM EDT Pulse 70 12/19/2022 10:32 AM EDT Temperature 36.4 C (97.5 F) 12/19/2022 10:32 AM E DT Respiratory Rate 16 12/19/2022 10:32 AM EDT Oxygen Saturation 95% 12/19/2022 10:32 AM EDT Inhaled Oxygen Concentration - - Weight 75.6 kg (166 lb 9.6 oz) 12/19/2022 10:32 AM EDT Height 160 cm (5' 3") 12/19/2022 10:32 AM EDT Body Mass Index 29.51 12/19/2022 10:32 AM EDT documented in this encounter Progress Notes * Rafa Bergman MD - 12/19/2022 10:36 AM EDT Subjective: HPI: Rehana Moran is a 77 year old female with hx of hypothyroidism, HLD, HTN, hx of HI, CAD s/p stent, GERD, CKD III, osteoporosis, hx of DVT/PE x2 (2009, 2022), Renal cyst, tachy-chintan syndrome s/p dual chamber pacemaker, prediabetes, macular degeneration, R retinal vein occlusion, B/L TKA, Gout seen for Vision is slightly better R knee pain, thigh pain and groin pain for 7 days - denied any fall - was playing with her dog - has taken prednisone for 5 days ----helps a little - denied any fever - does have hx of knees replacement Patient Active Problem List Diagnosis Code Senile [...] Arthritis of left ankle M19.072 Atherosclerosis of [place] coronary artery of [place] heart without angina pectoris I25.10 S/P angioplasty with stent Z95.820 Hypertensive kidney disease with stage 3a chronic kidney disease I12.9, N18.31 History of basal cell carcinoma Z85.828 Chronic kidney disease, stage 3a (HCC) N18.31 Prediabetes R73.03 Gastro-esophageal reflux disease with esophagitis, without bleeding K21.00 Tachy-chintan syndrome (HCC) I49.5 Medical home patient encounter Z00.8 Other pulmonary embolism with acute cor pulmonale ([facility]) I26.09 S/P placement of cardiac pacemaker Z95.0 History of HI (myocardial infarction) I25.2 History of pulmonary embolism Z86.711 Current Outpatient Medications Medication Sig Dispense Refill predniSONE 10 MG Oral Tablet (Deltasone) Take 5 tabs for 2 days, 4 tabs for 2 days, 3 tabs for 2 days, 2 tabs for 2 days 1 tab for 2 days 30 Tablet 0 VITAMIN D 1000 UNITS PO CAPS Take [...] 1.5 mg 1.5 mg Injection PRN Pedro Davisna, DO 1.5 mg at 11/13/22 1525 Past Medical History: Diagnosis Date Allergic rhinitis Atherosclerotic heart disease of [place] coronary artery with angina pectoris (HCC) Benign [...] use 0-2/wk 10/18/2009 Intradermal Nevus,right upper arm 8/l3/02 11/12/2001 Kidney cyst, acquired KIDNEY DZ,CHRONIC (GFR 30-59) STAGE III 10/20/2009 Per CKD Protocol, #1 MALIG KERRIE SKIN ARM 09/05/2004 MALIG KERRIE SKIN TRUNK 09/05/2004 new lesion- rt shoulder NSTEMI (non-ST elevated myocardial infarction) (HCC) 04/28/2018 [facility], cathed and LAD stented with AMIE, RCA [...] to hypertension, elevated TSH, small pericardial effusion [facility] Pericarditis as complication of acute myocardial infarction (HCC) 05/15/2018 [facility] colchicine not tolerated well. Pericarditis as complication of acute myocardial infarction ([facility]) 06/05/2018 [facility] steroids Postmenopausal atrophic vaginitis 09/15/2013 Presence of vena cava filter PROLAPSE OF VAGINAL WALL 10/28/2000 Pulmonary embolism and infarction ([facility]) 08/30/2009 Pulmonary embolus ([facility]) 1999 Retroperitoneal bleed 02/28/2015 Sebaceous hyperplasia, Rt forehead 10/05/97 01/28/2002 Senile osteoporosis 05/14/2008 Traumatic rupture of left posterior tibial tendon 12/07/14 Urinary frequency 09/15/2013 Viral warts, unspecified Condylomata Vitamin B12 deficiency 05/12/2014 Vitamin D insufficiency 05/12/2014 Past Surgical History: Procedure Laterality Date ARTHROPLASTY KNEE TOTAL 08/18/2009 right knee ARTHROPLASTY KNEE TOTAL 11/11/2014 left knee- [facility]- Dr. Lopez CARDIAC CATH-CARDIOLOGY ONLY 04/28/2018 AMIE to LAD, PCI to RCA COLONOSCOPY 09/2004 diverticulosis COLONOSCOPY, DIAGNOSTIC (RECTUM) 02/27/2017 diverticulosis, repeat 5 yrs/COLONOSCOPY FLEXIBLE PROXIMAL DIAGNOSTIC performed by Ford Pantoja MD at ENDOSCOPY [facility] CTA CHEST NON-CORONARY W CONTRAST 11/13/2018 no [...] Tinsley IR FILTER PLACEMENT VENA CAVA 10/2014 [facility] MISCELLANEOUS ORDER ([facility] ONLY) 12/02/2013-12/02/2014 LUCENTIS 0.5MG CONSENT SIGNED OD; DR TINSLEY MISCELLANEOUS ORDER ([facility] ONLY) Right 01/12/2015-01/13/2016 LUCENTIS 0.5MG CONSENT OD SIGNED; DR LAUREANO ADAN ORDER ([facility] ONLY) Right 10/21/2015-10/20/2016 EYLEA OD CONSENT SIGNED, Dr. Laureano ADAN ORDER ([facility] ONLY) Right 11/30/2016-11/30/2017 Eylea OD consnet signed, Dr.Cessna ADAN ORDER ([facility] ONLY) Right 01/30/18-01/30/19 EYLEA OD CONSENT SIGNED, Dr. 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 Other (Other) None no hx of skin cancer for pt parents Social History Tobacco Use Smoking status: Never Smokeless tobacco: Never Tobacco comments: second hand smoke exposure - 10 years Substance Use Topics Alcohol use: No Vaping/E-Cigarette Use Vaping/E-Cigarette Use Never User Vaping/E-Cigarette Substances Vaping/E-Cigarette Devices ROS: -Per HPI OBJECTIVE: BP 128/86 | Pulse 70 | Temp 36.4 C (97.5 F) (Tympanic) | Resp 16 | Ht 1.6 m (5' 3") | Wt 75.6 kg (166 lb 9.6 oz) | SpO2 95% | BMI 29.51 kg/m | BSA 1.83 m PHYSICAL EXAM: MSK: No TTP of the R hip, mild swelling of the R knee - normal ROM of the knee and hip ASSESSMENT/PLAN: Recommended Ice qhs - if no improvement then RTC Hip pain, right (Primary) - predniSONE 10 MG Oral Tablet (Deltasone); Take 5 tabs for 2 days, 4 tabs for 2 days, 3 tabs for 2days, 2 tabs for 2 days 1 tab for 2 days Acute pain of right knee - predniSONE 10 MG Oral Tablet (Deltasone); Take 5 tabs for 2 days, 4 tabs for 2 days, 3 tabs for 2 days, 2 tabs for 2 days 1 tab for 2 days Rafa Bergman MD Family medicine, [place] [phone] documented in this encounter Nursing Notes * Camila Johnson LPN - 12/19/2022 10:30 AM EDT Pt here for pulled muscle in right side groin x 12/11 Having severe pain in right leg and swelling in knee Had old prednisone - started taking on 12/13 - ran out of this - thinks helped Has taken tylenol and voltaren gel - thinks help temporarily documented in this encounter Plan of Treatment Upcoming Encounters Date Type Specialty Care Team Description 12/24/2022 Nurse Only Rheumatology Yon, Nurse Tyler [address] [place] [id number] 01/01/2023 Office Visit Ophthalmology Pedro Tinsley, DO [address] [place] [address] 01/04/2023 Hospital Encounter Endoscopy Nahun Hong MD [address] [place] [address] 01/04/2023 Surgery Endoscopy Nahun Hong MD [address] [place] [address] COLONOSCOPY FLEXIBLE PROXIMAL DIAGNOSTIC 02/12/2023 Cardiac Studies Cardiology [facility] [address] [place] [address] 02/22/2023 Office Visit Cardiology Charles Ortega, DO [address] [place] [address] 03/06/2023 Office Visit Family Medicine Rafa Bergman MD [address] [place] [address] [place] [address] 03/06/2023 Office Visit Dermatology Kasey Nieto MD 07/05/2023 Office Visit Rheumatology Deangelo Holley MD [address] [place] [address], [place] [address] Scheduled Procedures Name Priority Associated Diagnoses Date/Ti me COLONOSCOPY FLEXIBLE PROXIMAL DIAGNOSTIC Recall Colon cancer screening 01/04/2023 9:00 AM EDT Health Maintenance Due Date Last Done Comments DTaP,Tdap,and Td Vaccines (2 - Td or Tdap) 11/02/2017 11/03/2007 CKD PHOS USE SMARTSET 03689 04/19/202204/01, 11/27/2019, 11/21/2018, Additional history exists COVID-19 [...] Additional history exists CKD HGB USE SMARTSET 18988 04/24/202304/24, 04/24/2022, 03/27/2022, Additional history exists TSH 05/22/2023 05/22/2022, 03/02, 04/19/2021, Additional history exists DXA Scan 07/18/2024 07/18/2022, 12/01, 05/09/2017, Additional history exists Hepatitis B Completed 03/18/2009, 05/30, 05/12/2008 Pneumococcal Vaccine: 65+ Years Completed 03/28/2015, 03/20/2010, 11/15/2004 COLONOSCOPY-EVERY 5 YRS AGES 18-100 Discontinued 02/27/2017, 02/27/2017, 10/17/2004 Zoster Vaccines Completed 06/12/2021, 02/01, 11/04/2012 VITAMIN D LEVEL ONCE IN A LIFETIME-USE SMARTSET# [id number] Completed 11/06/2021, 12/28/2019, 06/24/2017, Additional history exists GARDASIL-HPV IMMUNIZATION SERIES Aged Out No longer eligible based on patient's age to complete this topic MENINGOCOCCAL (MENACTRA/MENVEO) Aged Out No longer eligible based on patient's age to complete this topic documented as of this encounter Medical Devices Implanted Type Area Inspector Subassembly Device Identifier Shelf Expiration Date Model / Serial / Lot Lens Intraoc 21.5 - [id number] - [id number] Implanted:Qty: 1 on 05/12/2019 by Yury Brady MD at OR [facility] Right: Eye [employer] 12/30/2023 [id number] / [id number] / [id number] Lens Intraoc 22.5 - [id number] - [id number] Implanted:Qty: 1 on 04/05/2020 by Yury Brady MD at OR [facility] Left: Eye [employer]OM[employer] 09/28/2024 [id number] / [id number] / [id number] documented as of this encounter Visit Diagnoses Diagnosis Hip pain, right- Primary Pain in joint, pelvic region and thigh Acute pain of right knee Colon cancer screening Special screening for malignant neoplasms, colon documented in this encounter Advance Directives Documents on File Type Date Recorded Patient Special Effects Specialist Expl anation Advance Directives and Living Will 03/11/2018 Krissy Urban ADVANCE DIR ECTIVE Healthcare Agents on File Name Relationship Healthcare Agent Relationship Communication Krissy Ordonez Adult Child Health Care Agen t (per Health Care Power of Inspector Rag Sorting document) Guille Urban Adult Child Health Care Agen t (per Health Care Power of Inspector Rag Sorting document) Care Teams Computer Systems Security Analyst Relationship Specialty Start Date End Date Rafa Bergman MD [address] [place] [address] [place] [phone] PCP - General Family Medicine 04/19/21 documented as of this encounter
--- OUTSIDE RECORDS SUMMARY | 2023-02-24 09:20 | External Medical Summary | Summary of Care ---
Author Name Unknown Organization [facility] Address [address] [facility] [place] [address] Phone [phone] Care Team Providers Care Air Traffic Control Specialist Center Name Role Phone Rafa Bergman MD Primary Care Provide r Reason for Visit * Reason Comments Follow Up Dil. 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 Procedures INJECTION OF EYE DRUG AFLIBERCEPT IO SOLN, PER 1MG, INJ Pedro Tinsley, DO [address] [place] [address] Referral ID Status Reason Start Date Expiration Date V isits Requested Visits Authorized [id number] Authorized Precert 11/25/2018 03/31/2099 99 99 Encounter Details Date Type Department Care Team Description 12/25/2022 Office Visit Ophthalmology, [facility] [address] [place] [address] Pedro Tinsley, DO [address] [place] [address] Endophthalmitis purulent, right*; 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 Allergies Active Allergy Reactions Severity Noted Date Comments Colchicine Diarrhea 06/16/2018 Daptomycin 01/05/2015 Shortness of breath Imipenem Edema airway High 01/05/2015 Metoprolol Low 01/23/2021 Other reaction(s): fatigue Zoledronic Acid 04/24/2012 Myalgias, fever, chills, vomiting x 2 days Sulfa Antibiotics 12/22/2002 Bactrim--itchy all over, eyes swollen documented as of this encounter (statuses as of 12/25/2022) Medications Medication Sig Dispensed Refills Start Date [...] as of this encounter (statuses as of 12/25/2022) Active Problems Problem Noted Date History of NC (myocardial infarction) History of pulmonary embolism 11/27/2022 [...] S/P angioplasty with stent 11/27/2018 Atherosclerosis of [place] ronary artery of [place] heart without angina pectoris 07/08/2018 Arthritis of [...] as of this encounter (statuses as of 12/25/2022) Resolved Problems Problem Noted Date Resolved Date Atherosclerosis of coronary artery of [place] heart without angina pectoris 09/10/2022 10/31/2022 Hypothyroidism [...] cava filter Atherosclerotic heart diseas e of [place] coronary artery with angina pectoris 07/08/2018 CKD (chronic kidney disease) stage 2, GFR 60-89 ml/min 03/12/2019 documented as of this encounter (statuses as of 12/25/2022) Immunizations Name Administration Dates Next Due COVID-19 [...] Progress Notes * Pedro Tinsley DO - 12/25/2022 1:00 PM EDT [facility] [place] Nursing notes reviewed. Eye vitals reviewed. Mood and Affect: normal HPI: Rehana Moran is a 77 year old female who presents for RVO No other eye complaints. Denies significant pain. Base Eye Exam Visual Acuity (Snellen - Linear) Right Left Dist sc 20/350 20/20 Dist ph sc NI Tonometry (Tonopen, 1:02 PM) Right Left Pressure 14 19 Pupils Pupils APD Right PERRL None Left PERRL None Visual Toribio (Counting fingers) Right Left Full Full Extraocular Movement Right Left Full, Ortho Full, Ortho Neuro/Psych Oriented x3: Yes Mood/Affect: Normal Dilation Both eyes: 0.5% Proparacaine @ 1:02 PM Dilation #2 Right eye: 1.0% Mydriacyl, 2.5% Phenylephrine @ 1:02 PM Dilation #3 Both eyes: 1.0% Mydriacyl, 2.5% Phenylephrine @ 1:04 PM Dilation Comments Patient cautioned that effects of dilation may last 2-7 hours dependant upon individual reaction. It was discussed that driving while dilated is not recommended. Strabismus Exam Correction: sc Observations: Ortho Distance Near Near +3DS N Bifocals cover/uncover, and alternate cover EXTERNAL: The ocular adnexae are unremarkable. SLE: Lids/Lashes: wnl OU Conjunctiva/Sclera: quiet OU Cornea: clear OD; clear OS Anterior Chamber: deep and quiet OU Iris: normal OU Lens: PCIOL OU Dilated fundus exam OD: vitreous: 4+vit cell/debri, mild vh inferiorly optic nerve: 0.2, no edema/pallor/NVD macula: +heme, ST BRVO, +1DA flat nevus temporal macula w/ no orange pig/srfluid vessels: +ST BRVO midperiphery: wnl periphery: no RT/RD Dilated fundus exam OS: 09/19/2022 vitreous: clear optic nerve: 0.2, no edema/pallor/NVD macula: wnl vessels: wnl midperiphery: wnl periphery: no RT/RD OCT Interpretation: OD: resolved superior CME - STABLE, prior STABLE, prior improved, prior worse [...] -finished levaquin 500mg 7 day course -resolved -still w/ visually significant debri; pt getting motion sick from the movement of debri; okay to wear occlusive patch for symptomatic relief; give more time for clearing but may have to consider PPV washout 2. 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 -pt risk factors: HTN, hyperchol--on meds for all -h/o multiple clots -already taking ASA 81 mg qday -h/o PE--on coumadin -s/p Lucentis (07/15/15, 05/24/21, 06/03/15, 04/22/15, 03/11/15, 02/07/15, 01/12/15, 11/03/14, 10/15/14, 09/17/14, 08/20/14, 06/18/14, 05/07/14, 03/30/14, 02/12/14, 01/08/14, 12/02/13) -s/p EYLEA (11/13/22#--endophthalmitis, 09/19/22, 07/31/22, 06/12/22, 04/18/22, 08/29/21, 07/13/21, 03/29/21, , -2-, 10-06-20, 08-04-20, 06/02/20, 03-22-20, 01-21-20, 10/29/19, 08-13-19, 05/27/19, 11-25-18,08-21-18, [...] documented in this encounter Nursing Notes * Zeinab Quintero RN - 12/25/2022 12:56 PM EDT Rehana Moran is a 77 year old year old female who presents for Endophthalmitis OD Last Office Visit: 12/11/2022 (in office), Visit date not found (telemedicine) Patient currently states "eye has light gregory film and have floaters and debris which constantly move and my good eye tries to fight that and I get sick to stomach and headache and struggle to focus and see" Are you diabetic? No Do you drive? yes OCT image(s) of right eye acquired and filed/scanned into chart. documented in this encounter Plan of Treatment Upcoming Encounters Date Type Specialty Care Team Description 01/04/2023 Hospital Encounter Endoscopy Nahun Hong MD [address] [place] [address] 01/04/2023 Surgery Endoscopy Nahun Hong MD [address] [place] [address] COLONOSCOPY FLEXIBLE PROXIMAL DIAGNOSTIC 01/16/2023 Office Visit Ophthalmology Pedro Tinsley, DO [address] [place] [address] 02/12/2023 Cardiac Studies Cardiology [facility] [address] [place] [address] 02/22/2023 Office Visit Cardiology Charles Ortega, DO [address] [place] [address] 03/06/2023 Office Visit Family Medicine Rafa Bergman MD [address] [place] [address] [place] [address] 03/06/2023 Office Visit Dermatology Kasey Nieto MD 07/05/2023 Office Visit Rheumatology Deangelo Holley MD [address] [place] [address], [place] [address] Scheduled Orders Name Type Priority Associated Diagnoses Orde r Schedule RETINA SCAN DIAGNOSTIC IMAGE, POSTERIOR Procedures Routine Endophthalmitis purulent, right Ordered: 12/25/2022 Scheduled Procedures Name Priority Associated Diagnoses Date/Ti me COLONOSCOPY FLEXIBLE PROXIMAL DIAGNOSTIC Recall Colon cancer screening 01/04/2023 9:00 AM EDT Health Maintenance Due Date Last Done Comments DTaP,Tdap,and Td Vaccines (2 - Td or Tdap) 11/02/2017 11/03/2007 CKD PHOS USE SMARTSET 11317 04/19/202204/01, 11/27/2019, 11/21/2018, Additional history exists COVID-19 [...] Additional history exists CKD HGB USE SMARTSET 59032 04/24/202304/24, 04/24/2022, 03/27/2022, Additional history exists TSH 05/22/2023 05/22/2022, 03/02, 04/19/2021, Additional history exists DXA Scan 07/18/2024 07/18/2022, 12/01, 05/09/2017, Additional history exists Hepatitis B Completed 03/18/2009, 05/30, 05/12/2008 Pneumococcal Vaccine: 65+ Years Completed 03/28/2015, 03/20/2010, 11/15/2004 COLONOSCOPY-EVERY 5 YRS AGES 18-100 Discontinued 02/27/2017, 02/27/2017, 10/17/2004 Zoster Vaccines Completed 06/12/2021, 02/01, 11/04/2012 VITAMIN D LEVEL ONCE IN A LIFETIME-USE SMARTSET# [id number] Completed 11/06/2021, 12/28/2019, 06/24/2017, Additional history exists GARDASIL-HPV IMMUNIZATION SERIES Aged Out No longer eligible based on patient's age to complete this topic MENINGOCOCCAL (MENACTRA/MENVEO) Aged Out No longer eligible based on patient's age to complete this topic documented as of this encounter Medical Devices Implanted Type Area Youth Liaison Officer Device Identifier Shelf Expiration Date Model / Serial / Lot Lens Intraoc 21.5 - [id number] - [id number] Implanted:Qty: 1 on 05/12/2019 by Yury Brady MD at OR [facility] Right: Eye [employer] 12/30/2023 [id number] / [id number] / [id number] Lens Intraoc 22.5 - [id number] - [id number] Implanted:Qty: 1 on 04/05/2020 by Yury Brady MD at OR [facility] Left: Eye [employer]OM[employer] 09/28/2024 [id number] / [id number] / [id number] documented as of this encounter Visit Diagnoses Diagnosis Endophthalmitis purulent, right- Primary 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 Colon cancer screening Special screening for malignant neoplasms, colon documented in this encounter Advance Directives Documents on File Type Date Recorded Patient 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 Recreation 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 Expl anation Advance Directives and Living Will 03/11/2018 Krissy Urban ADVANCE DIR ECTIVE Healthcare Agents on File Name Relationship Healthcare Agent Relationship Communication Krissy Ordonez Adult Child Health Care Agen t (per Health Care Power of Pharmacy Customer Care Specialist document) Guille Urban Adult Child Health Care Agen t (per Health Care Power of Pharmacy Customer Care Specialist document) Care Teams Air Traffic Control Specialist Center Relationship Specialty Start Date End Date Rafa Bergman MD [address] [place] [address] [place] [address] PCP - General Family Medicine 04/19/21 documented as of this encounter
--- OUTSIDE RECORDS SUMMARY | 2023-02-24 09:20 | External Medical Summary | Summary of Care ---
Author Name Unknown Organization [facility] [address] [facility] [address] Phone [phone] Care Team Providers Care Breaker Engineer Name Role Phone Rafa Bergman MD Primary Care Provide r Reason for Visit * Reason Onset Date Comments Advice 12/24/2022 Encounter Details Date Type Department Care Team Description 12/24/2022 Telephone Ophthalmology, [facility] [address] [place] [address] Pedro Tinsley, [address] [place] [address] Advice Allergies Active Allergy Reactions Severity Noted [...] Prediabetes protocol Chronic kidney disease, stage 3a Overview: Per CKD protocol History of basal cell carcinoma 07/07/19 21 Hypertensive kidney disease with stage 3 a chronic kidney disease 02/08/2020 Overview: Per CKD protocol - Per CKD protocol S/P angioplasty with stent 11/27/2018 Atherosclerosis of [place] co ronary artery of [place] heart without angina pectoris 07/08/2018 Arthritis of [...] Date Atherosclerosis of coronary artery of [place] heart without angina pectoris 09/10/2022 10/31/2022 Hypothyroidism [...] filter 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 Rescheduled to be seen sooner: tomorrow 12/25 @ 1pm. Patient aware and agreeable. ASHLEY Bolaños 12/24/2022 1:42 PM * Telephone Encounter - ASHLEY Bolaños - 12/24/2022 12:23 PM EDT Patient called today with question for Dr. Tinsley - states her "bad eye (right) is all over the place, flim over it and floaters" she wants to know if she can wear a patch on it for now or if you have any other suggestions in the meantime until her appointment next week on 01/01? She's off all eye drops as of tomorrow. Thanks, ASHLEY Bolaños 12/24/2022 12:26 PM documented in this encounter Plan of Treatment Upcoming Encounters Date Type Specialty Care Team Description 12/25/2022 Office Visit Ophthalmology Pedro Tinsley DO [address] [place] [address] 01/04/2023 Hospital Encounter Endoscopy Nahun Hong MD [address] [place] [address] 01/04/2023 Surgery Endoscopy Nahun Hong MD [address] [place] [address] COLONOSCOPY FLEXIBLE PROXIMAL DIAGNOSTIC 02/12/[address] [facility] [address] [place] [address] 02/22/2023 Office Visit Cardiology Charles Ortega DO [address] [place] [address] 03/06/2023 Office Visit Family Medicine Rafa Bergman MD [address] [place] [address] [place] [address] 03/06/2023 Office Visit Dermatology aKsey Nieto MD 07/05/2023 Office Visit Rheumatology Deangelo Holley MD [address] [place] [address], [place] [address] Scheduled Procedures Name Priority Associated Diagnoses Date/Ti me COLONOSCOPY FLEXIBLE PROXIMAL DIAGNOSTIC Recall Colon cancer screening 01/04/2023 9:00 AM EDT Health Maintenance Due Date Last Done Comments DTaP,Tdap,and Td Vaccines (2 - Td or Tdap) 11/02/2017 11/03/2007 CKD PHOS USE SMARTSET 49920 04/19/202204/01, 11/27/2019, 11/21/2018, Additional history exists COVID-19 [...] Additional history exists CKD HGB USE SMARTSET 16020 04/24/202304/24, 04/24/2022, 03/27/2022, Additional history exists TSH 05/22/2023 05/22/2022, 03/02, 04/19/2021, Additional history exists DXA Scan 07/18/2024 07/18/2022, 12/01, 05/09/2017, Additional history exists Hepatitis B Completed 03/18/2009, 05/30, 05/12/2008 Pneumococcal Vaccine: 65+ Years Completed 03/28/2015, 03/20/2010, 11/15/2004 COLONOSCOPY-EVERY 5 YRS AGES 18-100 Discontinued 02/27/2017, 02/27/2017, 10/17/2004 Zoster Vaccines Completed 06/12/2021, 02/01, 11/04/2012 VITAMIN D LEVEL ONCE IN A LIFETIME-USE SMARTSET# 76330 Completed 11/06/2021, 12/28/2019, 06/24/2017, Additional history exists GARDASIL-HPV IMMUNIZATION SERIES Aged Out No longer eligible based on patient's age to complete this topic MENINGOCOCCAL (MENACTRA/MENVEO) Aged Out No longer eligible based on patient's age to complete this topic documented as of this encounter Medical Devices Implanted Type Area Manager Product Device Identifier Shelf Expiration Date Model / Serial / Lot Lens Intraoc 21.5 - [id number] - [id number] Implanted:Qty: 1 on 05/12/2019 by Yury Brady MD at [facility] Right: Eye [employer] 12/30/2023 [id number] / [id number] / [id number] Lens Intraoc 22.5 - [id number] - [id number] Implanted:Qty: 1 on 04/05/2020 by Yury Brady MD at OR [facility] Left: Eye [employer] 09/28/2024 [id number] / [id number] / [id number] documented as of this encounter Advance Directives Documents on File Type Date Recorded Patient Crisis Intervention Specialist Expl anation Advance Directives and Living Will 03/11/2018 Krissy Urban ADVANCE DIR ECTIVE Healthcare Agents on File Name Relationship Healthcare Agent Relationship Communication Krissy Ordonez Adult Child Health Care Agen t (per Health Care Power of Small Arms Artillery Repairer document) Guille Urban Adult Child Health Care Agen t (per Health Care Power of Small Arms Artillery Repairer document) Care Teams Breaker Engineer Relationship Specialty Start Date End Date Rafa Bergman MD [address] [place] [address] [place] [phone] PCP - General Family Medicine 04/19/21 documented as of this encounter
--- OUTSIDE RECORDS SUMMARY | 2023-02-24 09:20 | External Medical Summary | Summary of Care ---
Author Name Unknown Organization [facility] Address [address] [facility] [address] Phone [phone] Care Team Providers Care Metal Machinist Name Role Phone Rafa Bergman MD Primary Care Provide r Reason for Visit * Reason Comments Follow Up Endophthalmitis rech andrew Encounter Details Date Type Department Care Team Description 11/23/2022 Office Visit Ophthalmology, [facility] [address] [place] [address] Pedro Tinsley, DO [address] [place] [address] Endophthalmitis purulent, right* Allergies Active Allergy Reactions Severity Noted Date Comments Colchicine Diarrhea 06/16/2018 Daptomycin 01/05/2015 Shortness of breath Imipenem Edema airway High 01/05/2015 Metoprolol Low 01/23/2021 Other reaction(s): fatigue Zoledronic Acid 04/24/2012 Myalgias, fever, chills, vomiting x 2 days Sulfa Antibiotics 12/22/2002 Bactrim--itchy all over, eyes swollen documented as of this encounter (statuses as of 11/23/2022) Medications Medication Sig Dispensed Refills Start Date [...] EVERY DAY 90 Tablet 3 10/31/2022 Active levoFLOXacin 500 MG Oral Tablet Take 1 Tablet by mouth in the morning for 7 days. 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 1.5 mg IJ PRN 09/19/2022 4 Active documented as of this encounter (statuses as of 11/23/2022) Active Problems Problem Noted Date Other pulmonary embolism with acute cor pulmonale [...] S/P angioplasty with stent 11/27/2018 Atherosclerosis of [place] co ronary artery of [place] heart without angina pectoris 07/08/2018 Arthritis of [...] as of this encounter (statuses as of 11/23/2022) Resolved Problems Problem Noted Date Resolved Date Atherosclerosis of coronary artery of [place] heart without angina pectoris 09/10/2022 10/31/2022 Hypothyroidism [...] cava filter 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 Eye vitals reviewed. Mood and Affect: normal HPI: Rehana Moran is a 77 year old female who presents for RVO No other eye complaints. Denies significant pain. Base Eye Exam Visual Acuity (Snellen - Linear) Right Left Dist sc 20/80 20/25 -1 Dist ph sc NI Tonometry (Tonopen, 9:42 AM) Right Left Pressure 8 13 Pupils Pupils Light Shape React APD Right PERRL 4 Round Brisk Trace Left PERRL 3 Round Brisk None Visual Toribio (Counting fingers) Right Left Full Full Extraocular Movement Right Left Full Full Neuro/Psych Oriented x3: Yes EXTERNAL: The ocular adnexae are unremarkable. SLE: Lids/Lashes: wnl OU Conjunctiva/Sclera: quiet OU Cornea: 1-2+folds OD; clear OS Anterior Chamber: deep and 4+cell, resolved 0.5mm hypopyon OD; deep and quiet OD Iris: resolved mildly engorged vessels OD; normal OS Lens: PCIOL OU Dilated fundus exam OD: vitreous: 4+vit cell optic nerve: 0.2, no edema/pallor/NVD macula: +heme, [...] -no pain -continue vigamox and PF qid -finished levaquin 500mg 7 day course 2. [...] 06/12/22, 04/18/22, 08/29/21, 07/13/21, 03/29/21, , --, 10-06-, 08-04-, 06/02/20, 03-22-, 01-20-, 10/29/19, 08-12-20, 05/27/19, 11-25-19, 08-21-19, 06-12-, 04-03-, 01-30-18, 11/28/17, 10-03-17, 18, 05-17-2017, 03-21-, 01-25-, 11-30-17, 10-05-, 07/27/16,06-01-17, 03-16-2015, 12/06/15, 10/21/15) - worse at 9 and 10 and 12 weeks was good in past at 12-14 weeks - best at 6-8 weeks 3. Small Choroidal Nevus OD -low risk -monitor F/u next week; dilate OD x 2 Pedro Tinsley DO documented in this encounter Nursing Notes * Isael Ledesma RN - 11/23/2022 9:44 AM EDT Rehana Moran is a 77 year old year old female who presents for Endophthalmitis recheck. Last Office Visit: 11/19/2022 (in office), Visit date not found (telemedicine) Patient currently states " its improve, but not better. My pupil still dilate since my last visit" Are you diabetic? No Do you drive? yes documented in this encounter Plan of Treatment Upcoming Encounters Date Type Specialty Care Team Description 11/27/2022 Office Visit Family Medicine Rafa Bergman MD [address] [place] [address] [place] [address] 11/28/2022 Office Visit Ophthalmology Pedro Tinsley, DO [address] [place] [address] 12/24/2022 Nurse Only Rheumatology [place], Nurse [address] [place] [id number] 01/01/2023 Office Visit Ophthalmology Pedro Tinsley, DO [address] [place] [address] 01/04/2023 Hospital Encounter Endoscopy Nahun Hong MD [address] [place] [address] 01/04/2023 Surgery Endoscopy Nahun Hong MD [address] [place] [address] COLONOSCOPY FLEXIBLE PROXIMAL DIAGNOSTIC 02/12/2023 Cardiac Studies Cardiology [facility] [address] [place] [address] 02/22/2023 Office Visit Cardiology Charles Ortega, DO [address] [place] [address] 03/06/2023 Office Visit Dermatology Kasey Nieto MD 07/05/2023 Office Visit Rheumatology Deangelo Holley MD [address] [place] [address], [place] [address] Scheduled Procedures Name Priority Associated Diagnoses Date/Ti me COLONOSCOPY FLEXIBLE PROXIMAL DIAGNOSTIC Recall Colon cancer screening 01/04/2023 9:00 AM EDT Health Maintenance Due Date Last Done Comments DTaP,Tdap,and Td Vaccines (2 - Td or Tdap) 11/02/2017 11/03/2007 COLONOSCOPY-EVERY 5 YRS AGES 18-100 02/27/2022 02/27/2017, 02/27/2017, 10/17/2004 CKD PHOS USE SMARTSET 03103 04/19/202204/01, 11/27/2019, 11/21/2018, Additional history exists COVID-19 [...] Additional history exists CKD HGB USE SMARTSET 62473 04/24/202304/24, 04/24/2022, 03/27/2022, Additional history exists TSH 05/22/2023 05/22/2022, 03/02, 04/19/2021, Additional history exists DXA Scan 07/18/2024 07/18/2022, 12/01, 05/09/2017, Additional history exists Hepatitis B Completed 03/18/2009, 05/30, 05/12/2008 Pneumococcal Vaccine: 65+ Years Completed 03/28/2015, 03/20/2010, 11/15/2004 Zoster Vaccines Completed 06/12/2021, 02/01, 11/04/2012 VITAMIN D LEVEL ONCE IN A LIFETIME-USE SMARTSET# 49190 Completed 11/06/2021, 12/28/2019, 06/24/2017, Additional history exists GARDASIL-HPV IMMUNIZATION SERIES Aged Out No longer eligible based on patient's age to complete this topic MENINGOCOCCAL (MENACTRA/MENVEO) Aged Out No longer eligible based on patient's age to complete this topic documented as of this encounter Medical Devices Implanted Type Area Stock Shaper Device Identifier Shelf Expiration Date Model / Serial / Lot Lens Intraoc 21.5 - [id number] - [id number] Implanted:Qty: 1 on 05/12/2019 by Yury Brady MD at OR [facility] Right: Eye [employer] 12/30/2023 [id number] / [id number] / [id number] Lens Intraoc 22.5 - [id number] - [id number] Implanted:Qty: 1 on 04/05/2020 by Yury Brady MD at OR [facility] Left: Eye [employer] 09/28/2024 [id number] / [id number] / [id number] documented as of this encounter Visit Diagnoses Diagnosis Endophthalmitis purulent, right- Primary Colon cancer screening Special screening for malignant neoplasms, colon documented in this encounter Advance Directives Documents on File Type Date Recorded Patient On Site Construction Superintendent Expl anation Advance Directives and Living Will 03/11/2018 Krissy Urban ADVANCE DIR ECTIVE Healthcare Agents on File Name Relationship Healthcare Agent Relationship Communication Krissy Ordonez Adult Child Health Care Agen t (per Health Care Power of Medical Assembly document) Guille Urban Adult Child Health Care Agen t (per Health Care Power of Medical Assembly document) Care Teams Metal Machinist Relationship Specialty Start Date End Date Rafa Bergman MD [address] [place] [address] [place] [phone] PCP - General Family Medicine 04/19/21 documented as of this encounter
--- OUTSIDE RECORDS SUMMARY | 2023-02-24 09:20 | External Medical Summary | Summary of Care ---
Author Name Unknown Organization [facility] Address [address] [facility] [place] [address] Phone [phone] Care Team Providers Care Vision Mixer Name Role Phone Rafa Bergman MD Primary Care Provide r Reason for Visit * Reason Comments Follow Up F/U DIL OD X 2, OCT OD; "still can not see out of right eye" Encounter Details Date Type Department Care Team Description 12/11/2022 Office Visit Ophthalmology, [facility] [address] [place] [address] Pedro Tinsley, [address] [place] [address] Endophthalmitis purulent, right* Allergies Active Allergy Reactions Severity Noted Date Comments Colchicine Diarrhea 06/16/2018 Daptomycin 01/05/2015 Shortness of breath Imipenem Edema airway High 01/05/2015 Metoprolol Low 01/23/2021 Other reaction(s): fatigue Zoledronic Acid 04/24/2012 Myalgias, fever, chills, vomiting x 2 days Sulfa Antibiotics 12/22/2002 Bactrim--itchy all over, eyes swollen documented as of this encounter (statuses as of 12/11/2022) Medications Medication Sig Dispensed Refills Start Date [...] MG Oral Tablet (Zyloprim) take 1 and 2 tablets daily 135 Tablet 1 08/11/2022 Active [...] as of this encounter (statuses as of 12/11/2022) Active Problems Problem Noted Date History of [place] (myocardial infarction) History of pulmonary embolism 11/27/2022 [...] S/P angioplasty with stent 11/27/2018 Atherosclerosis of [place] co ronary artery of [place] heart without angina pectoris 07/08/2018 Arthritis of [...] as of this encounter (statuses as of 12/11/2022) Resolved Problems Problem Noted Date Resolved Date Atherosclerosis of coronary artery of [place] heart without angina pectoris 09/10/2022 10/31/2022 Hypothyroidism [...] cava filter 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 Eye vitals reviewed. Mood and Affect: normal HPI: Rehana Moran is a 77 year old female who presents for RVO No other eye complaints. Denies significant pain. Base Eye Exam Visual Acuity (Snellen - Linear) Right Left Dist sc 20/80 +2 20/20 Dist ph sc NI Tonometry (Tonopen, 9:48 AM) Right Left Pressure 17 17 Pupils Dark Light Shape React APD Right 3.5 3.5 Round Minimal None Left 3 3 Round Minimal None Visual Toribio (Counting fingers) Right Left Full Full Extraocular Movement Right Left Full, Ortho Full, Ortho Neuro/Psych Oriented x3: Yes Mood/Affect: Normal Dilation Both eyes: 0.5% Proparacaine @ 9:47 AM Dilation #2 Right eye: 1.0% Mydriacyl, 2.5% Phenylephrine @ 9:47 AM Dilation #3 Both eyes: 1.0% Mydriacyl, 2.5% Phenylephrine @ 9:51 AM Dilation Comments Patient cautioned that effects of dilation may last 2-7 hours dependant upon individual reaction. It was discussed that driving while dilated is not recommended. Strabismus Exam Correction: wa Observations: Ortho Distance Near Near +3DS N Bifocals Patient cautioned that effects of dilation may last 2-7 hours dependant upon individual reaction. It was discussed that driving while dilated is not recommended. EXTERNAL: The ocular adnexae are unremarkable. SLE: Lids/Lashes: wnl OU Conjunctiva/Sclera: quiet OU Cornea: resolved 1-2+folds OD; clear OS Anterior Chamber: deep and trace cell, resolved 0.5mm hypopyon OD; deep and quiet [...] s/p ceftaz+vanco 11/17/22 -cx: coagulase negative staph -improving -no pain -taper off PF bid x 7 days then qd x 7 days, then stop -finished levaquin 500mg 7 day course 2. [...] 07/13/21, 03/29/21, , --, 10-06-, 08-04-, 06/02/20, 03-22-20, 01-21-20, 10/29/19, 08-12-20, 05/27/19, 11-25-19, 08-21-18, 06-12-, 04-03-18, 01-30-18, 11/28/17, 10-03-17, 18, 05-17-2017, 03-21-17, 01-25-17, 17, 10-05-16, 07/27/16,06-01-17, 03-16-2016, 12/06/15, 10/21/15) - worse at 9 and 10 and 12 weeks was good in past at 12-14 weeks - best at 6-8 weeks 3. Small Choroidal Nevus OD -low risk -monitor F/u 3 weeks; dilate OD x 2; OCT OD Pedro Tinsley DO documented in this encounter Nursing Notes * Zeinab Quintero RN - 12/11/2022 9:40 AM EDT Rehana Moran is a 77 year old year old female who presents for Endophthalmitis. Last Office Visit: 11/28/2022 (in office), Visit date not found (telemedicine) Patient currently states "still can not see out of right eye" Are you diabetic? No Do you drive? yes OCT image(s) of right eye acquired and filed/scanned into chart. documented in this encounter Plan of Treatment Upcoming Encounters Date Type Specialty Care Team Description 12/24/2022 Nurse Only Rheumatology [place], Nurse Rheum [address] [place] [phone] 01/01/2023 Office Visit Ophthalmology Pedro Tinsley DO [address] [place] [address] 01/04/2023 Hospital Encounter Endoscopy Nahun Hong MD [address] [place] [address] 01/04/2023 Surgery Endoscopy Nahun Hong MD [address] [place] [address] COLONOSCOPY FLEXIBLE PROXIMAL DIAGNOSTIC 02/12/2023 Cardiac Studies Cardiology [facility] [address] [place] [address] 02/22/2023 Office Visit Cardiology Charles Ortega DO [address] [place] [address] 03/06/2023 Office Visit Family Medicine Rafa Bergman MD [address] [place] [address] [place] [address] 03/06/2023 Office Visit Dermatology Kasey Nieto MD 07/05/2023 Office Visit Rheumatology Deangelo Holley MD [address] [place] [address] [place] [address] Scheduled Procedures Name Priority Associated Diagnoses Date/Ti me COLONOSCOPY FLEXIBLE PROXIMAL DIAGNOSTIC Recall Colon cancer screening 01/04/2023 9:00 AM EDT Health Maintenance Due Date Last Done Comments DTaP,Tdap,and Td Vaccines (2 - Td or Tdap) 11/02/2017 11/03/2007 CKD PHOS USE SMARTSET 30400 04/19/202204/01, 11/27/2019, 11/21/2018, Additional history exists COVID-19 [...] Additional history exists CKD HGB USE SMARTSET 20894 04/24/202304/24, 04/24/2022, 03/27/2022, Additional history exists TSH 05/22/2023 05/22/2022, 03/02, 04/19/2021, Additional history exists DXA Scan 07/18/2024 07/18/2022, 12/01, 05/09/2017, Additional history exists Hepatitis B Completed 03/18/2009, 05/30, 05/12/2008 Pneumococcal Vaccine: 65+ Years Completed 03/28/2015, 03/20/2010, 11/15/2004 COLONOSCOPY-EVERY 5 YRS AGES 18-100 Discontinued 02/27/2017, 02/27/2017, 10/17/2004 Zoster Vaccines Completed 06/12/2021, 02/01, 11/04/2012 VITAMIN D LEVEL ONCE IN A LIFETIME-USE SMARTSET# 73206 Completed 11/06/2021, 12/28/2019, 06/24/2017, Additional history exists GARDASIL-HPV IMMUNIZATION SERIES Aged Out No longer eligible based on patient's age to complete this topic MENINGOCOCCAL (MENACTRA/MENVEO) Aged Out No longer eligible based on patient's age to complete this topic documented as of this encounter Medical Devices Implanted Type Area Garment Parts Cutter Hand Device Identifier Shelf Expiration Date Model / Serial / Lot Lens Intraoc 21.5 - [id number] - [id number] Implanted:Qty: 1 on 05/12/2019 by Yury Brady MD at OR [facility] Right: Eye [employer] 12/30/2023 [id number] / [id number] / [id number] Lens Intraoc 22.5 - [id number] - [id number] Implanted:Qty: 1 on 04/05/2020 by Yury Brady MD at OR [facility] Left: Eye [employer] 09/28/2024 [id number] / [id number] / [id number] documented as of this encounter Visit Diagnoses Diagnosis Endophthalmitis purulent, right- Primary Colon cancer screening Special screening for malignant neoplasms, colon documented in this encounter Advance Directives Documents on File Type Date Recorded Patient 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 Estate 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 Expl anation Advance Directives and Living Will 03/11/2018 Krissy Urban ADVANCE DIR ECTIVE Healthcare Agents on File Name Relationship Healthcare Agent Relationship Communication Krissy Ordonez Adult Child Health Care Agen t (per Health Care Power of Campus Wellness Coordinator document) Guille Urban Adult Child Health Care Bon t (per Health Care Power of Campus Wellness Coordinator document) Care Teams Vision Mixer Relationship Specialty Start Date End Date Rafa Bergman MD [address] [place] [address] [place] [address] PCP - General Family Medicine 04/19/21 documented as of this encounter
--- OUTSIDE RECORDS SUMMARY | 2023-02-24 09:21 | External Medical Summary | Summary of Care ---
Author Name Unknown Organization [facility] Address [address] [facility] [place] [address] Phone [phone] Care Team Providers Care Engineer Internship Name Role Phone Rafa Bergman MD Primary Care Provide r Reason for Visit * Reason Comments Follow Up F/U ER Visit 11-17-22 . Pt states "It started , It started with floaters and then Saturday film over eye and then pain, I still have floaters and film over eye still can't see a thing" Encounter Details Date Type Department Care Team Description 11/19/2022 Office Visit Ophthalmology, [facility] [address] [place] [id number] Pedro Tinsley, [address] [place] [address] Endophthalmitis purulent, right* Allergies Active Allergy Reactions Severity Noted Date Comments Colchicine Diarrhea 06/16/2018 Daptomycin 01/05/2015 Shortness of breath Imipenem Edema airway High 01/05/2015 Metoprolol Low 01/23/2021 Other reaction(s): fatigue Zoledronic Acid 04/24/2012 Myalgias, fever, chills, vomiting x 2 days Sulfa Antibiotics 12/22/2002 Bactrim--itchy all over, eyes swollen documented as of this encounter (statuses as of 11/20/2022) Medications Medication Sig Dispensed Refills Start Date [...] Active Fexofenadine HCl 60 MG Oral Tablet (JONH) Take 1 Tablet by mouth in the [...] mg by mouth daily. 0 09/28/2022 Active AZO Bladder Control/Go-Less Oral Capsule Take 300 mg by mouth every morning. 0 Active predniSONE 5 MG Oral Tablet [...] a day. 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 Eye vitals reviewed. Mood and Affect: normal HPI: Rehana Moran is a 77 year old female who presents for RVO No other eye complaints. Denies significant pain. Base Eye Exam Visual Acuity (Snellen - Linear) Right Left Dist sc LP 20/20 -1 Tonometry (Tonopen, 9:55 AM) Right Left Pressure 10 12 Pupils Light Shape React APD Right 5 Round none None Left 4 Round Brisk None Visual Toribio (Counting fingers) Right Left Full Restrictions Total superior temporal, inferior temporal, superior nasal, inferior nasal deficiencies Neuro/Psych Oriented x3: Yes Mood/Affect: Normal Dilation Both eyes: 0.5% Proparacaine @ 9:55 AM Dilation #2 Right eye: 2.5% Phenylephrine, 1.0% Mydriacyl @ 9:55 AM EXTERNAL: The ocular adnexae are unremarkable. SLE: Lids/Lashes: wnl OU Conjunctiva/Sclera: quiet OU Cornea: 2+folds/trace edema OD; clear OS Anterior Chamber: deep and 4+cell, 0.5mm hypopyon OD; deep and quiet OD Iris: mildly engorged vessels OD; normal OS Lens: PCIOL OU Dilated fundus exam OD: vitreous: 4+vit cell hazy view prior dfe showe: optic nerve: 0.2, no edema/pallor/NVD macula: +heme, [...] -improved -no pain -continue vigamox and PF q1 hour while awake -finish levaquin 500mg 7 day course 2. 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 -pt risk factors: HTN, hyperchol--on meds for all -h/o multiple clots -already taking ASA 81 mg qday -h/o PE--on coumadin -s/p Lucentis (07/15/15, 05/24/21, 06/03/15, 04/22/15, 03/11/15, 02/07/15, 01/12/15, 11/03/14, 10/15/14, 09/17/14, 08/20/14, 06/18/14, 05/07/14, 03/30/14, 02/12/14, 01/08/14, 12/02/13) -s/p EYLEA (11/13/22#, 09/19/22, 07/31/22, 06/12/22, 04/18/22, 08/29/21, 07/13/21, 03/29/21, , --21, 10-06-21, --21, 06/02/20, 03-22-20, 01-20-20, 10/29/19, --20, 05/27/19, 11-25-19, 08-21-19, 06-12-19, 04-03-19, --18, 11/28/17, 10-03-18, 07-25-18, 05-17-2017, 03-21-17, 01-25-17, 11-30-17, 10-05-17, 07/27/16,--17, 03-16-2015, 12/06/15, 10/21/15) - worse at 9 and 10 and 12 weeks was good in past at 12-14 weeks - best at 6-8 weeks 3. Small Choroidal Nevus OD -low risk -monitor F/u this or Saturday; dilate OD x 2 Pedro Tinsley DO documented in this encounter Nursing Notes * JERMAIN Ford - 11/19/2022 9:50 AM EDT Rehana Moran is a 77 year old year old female who presents for F/U ER Visit 11-17-22. Last Office Visit: 11/13/2022 (in office), Visit date not found (telemedicine) Patient currently states It started , It started with floaters and then Saturday film over eye and then pain, I still have floaters and film over eye still can't see a thing". Are you diabetic? No Do you drive? yes documented in this encounter Plan of Treatment Upcoming Encounters Date Type Specialty Care Team Description 11/23/2022 Office Visit Ophthalmology Pedro Tinsley, DO [address] [place] [address] 11/27/2022 Office Visit Family Medicine Rafa Bergman MD [address] [place] [address] [place] [id number] 12/24/2022 Nurse Only Rheumatology [place], Nurse Rheum [address] [place] [phone] 01/01/2023 Office Visit Ophthalmology Pedro Tinsley, [address] [place] [address] 01/04/2023 Hospital Encounter Endoscopy Nahun Hong MD [address] [place] [address] 01/04/2023 Surgery Endoscopy Nahun Hong MD [address] [place] [address] COLONOSCOPY FLEXIBLE PROXIMAL DIAGNOSTIC 02/12/2023 Cardiac Studies Cardiology [facility] [address] [place] [address] 02/22/2023 Office Visit Cardiology Charles Ortega, DO [address] [place] [address] 03/06/2023 Office Visit Dermatology Kasey Nieto MD 07/05/2023 Office Visit Rheumatology [facility]angel[facility] Hol[facility] [address] Scheduled Procedures Name Priority Associated Diagnoses Date/Ti me COLONOSCOPY FLEXIBLE PROXIMAL DIAGNOSTIC Recall Colon cancer screening 01/04/2023 9:00 AM EDT Health Maintenance Due Date Last Done Comments DTaP,Tdap,and Td Vaccines (2 - Td or Tdap) 11/02/2017 11/03/2007 COLONOSCOPY-EVERY 5 YRS AGES 18-100 02/27/2022 02/27/2017, 02/27/2017, 10/17/2004 CKD PHOS USE SMARTSET 91671 04/19/202204/01, 11/27/2019, 11/21/2018, Additional history exists COVID-19 [...] Additional history exists CKD HGB USE SMARTSET 31261 04/24/202304/24, 04/24/2022, 03/27/2022, Additional history exists TSH 05/22/2023 05/22/2022, 03/02, 04/19/2021, Additional history exists DXA Scan 07/18/2024 07/18/2022, 12/01, 05/09/2017, Additional history exists Hepatitis B Completed 03/18/2009, 05/30, 05/12/2008 Pneumococcal Vaccine: 65+ Years Completed 03/28/2015, 03/20/2010, 11/15/2004 Zoster Vaccines Completed 06/12/2021, 02/01, 11/04/2012 VITAMIN D LEVEL ONCE IN A LIFETIME-USE SMARTSET# [id number] Completed 11/06/2021, 12/28/2019, 06/24/2017, Additional history exists GARDASIL-HPV IMMUNIZATION SERIES Aged Out No longer eligible based on patient's age to complete this topic MENINGOCOCCAL (MENACTRA/MENVEO) Aged Out No longer eligible based on patient's age to complete this topic documented as of this encounter Medical Devices Implanted Type Area Reinforcing Steel Machine Operator Device Identifier Shelf Expiration Date Model / Serial / Lot Lens Intraoc 21.5 - [id number] - [id number] Implanted:Qty: 1 on 05/12/2019 by Yury Brady MD at [facility] Right: Eye [employer] 12/30/2023 [id number] / [id number] / [id number] Lens Intraoc 22.5 - [id number] - [id number] Implanted:Qty: 1 on 04/05/2020 by Yury Brady MD at OR [facility] Left: Eye [employer] 09/28/2024 [id number] / [id number] / [id number] documented as of this encounter Visit Diagnoses Diagnosis Endophthalmitis purulent, right- Primary Colon cancer screening Special screening for malignant neoplasms, colon documented in this encounter Advance Directives Documents on File Type Date Recorded Patient Production Helper Expl anation Advance Directives and Living Will 03/11/2018 Krissy Urban ADVANCE DIR ECTIVE Healthcare Agents on File Name Relationship Healthcare Agent Relationship Communication Krissy Ordonez Adult Child Health Care Agen t (per Health Care Power of Porcelain Waxer document) Guille Urban Adult Child Health Care Agen t (per Health Care Power of Porcelain Waxer document) Care Teams Engineer Internship Relationship Specialty Start Date End Date Rafa Bergman MD [address] [place] [address] [place] [phone] PCP - General Family Medicine 04/19/21 documented as of this encounter
--- OUTSIDE RECORDS SUMMARY | 2023-02-24 09:21 | External Medical Summary ---
Author Name Unknown Address Unknown Organization [id number]:[facility] - [address] [place] [address] Laboratory Report Ordering Provider Test Date Status KANDACE SU 11/17/2022 05:38:00 Final Right eye vitreous fluid. 20 0ul is the max that can be obtained. Please be aware there is no possibility of more sample. This is priority Observation Date Value Abnormality Reference (Units ) Status Bacteria identified based on 16S rRNA gene [Identifier] in Specimen by Sequencing 11/17/2022 05:38:00 Sequencing not indicated. Final Performing Location LABORATORY [facility] - [address] [place] [address]
--- OUTSIDE RECORDS SUMMARY | 2023-02-24 09:21 | External Medical Summary ---
Author Name Unknown Address Unknown Organization [id number]:[facility] - [address] [facility] [address] Laboratory Report Ordering Provider Test Date Status KANDACE SU 11/17/2022 05:38:00 Final Right eye vitreous fluid. 20 0ul is the max that can be obtained. Please be aware there is no possibility of more sample.first utilize sample for [facility]

No anaerobic growth. Observation Date Value Abnormality Reference (Units) Status Bacteria identified in Specimen by Culture 11/17/2022 05:38:00 [id number]^STAPHYLO COCCUS, COAGULASE NEGATIVE Very abnormal Final Two colonies Staphylococcus, coagulase negative Gram Stain 11/17/2022 05:38:00 No polymorphonuclear leukocyt es seen Final Gram Stain 11/17/2022 05:38:00 No organisms seen Final Performing Location [facility] - [address] [facility] [address] Ordering Provider Test Date Status KANDACE SU 11/17/2022 05:38:00 Final Observation Date Value Abnormality Reference (Units ) Status Clindamycin 11/17/2022 05:38:00 <=0.25 Susceptible Final Erythromycin susceptibility 11/17/2022 05:38:00 <=0.25 Susceptible Final Oxacillinsusceptibility 11/17/2022 05:38:00 >=4 Resistant Final Oxacillin/Methicillin resist ant Staphylococci are considered clinically resistant to all Beta-lactam (Penicillin and Cephalosporin) antibiotics. Quinolone antibiotics should also not be used for Staphylococci that are Oxacillin resistant. Penicillin susceptibility 11/17/2022 05:38:00 >=0.5 Resi stant Final Tetracyclinesusceptibility 11/17/2022 05:38:00 <=1 Ashli ceptible Final TMP-SMZ susceptibility 11/17/2022 05:38:00 160 Resista nt Final Vancomycinsusceptibility 11/17/2022 05:38:00 2 Susce ptible Final Test: Culture, Body Fluid, A erobic and Anaerobic
Specimen Source: Vitreous Fluid
Specimen Type: Body Fluid
Specimen Date: 11/17/2022 5:38 AM
Result Date: 11/23/2022 3:24 PM
Result Status: Final result
Abnormal: Yes
Resulting Lab: [facility]
[address] [facility] [address]

CULTURE

Two colonies Staphylococcus, coagulase negative (Panic)

No anaerobic growth.

STAIN

No polymorphonuclear leukocytes seen

No organisms seen

SUSCEPTIBILITY

Staphylococcus,
coagulase negative
METHOD MICROBROTH DILUTIONS

CLINDAMYCIN <=0.25 Susceptible
ERYTHROMYCIN <=0.25 Susceptible
OXACILLIN >=4 Resistant [1]
PENICILLIN G >=0.5 Resistant
TETRACYCLINE <=1 Susceptible
TRIMETH/SULFAMETHOXAZOLE 160 Resistant
VANCOMYCIN 2 Susceptible

[1] Oxacillin/Methicillin resistant Staphylococci are considered clinically
resistant to all Beta-lactam (Penicillin and Cephalosporin) antibiotics.
Quinolone antibiotics should also not be used for Staphylococci that are
Oxacillin resistant.

null Performing Location [facility] - [address] [facility] [address]
--- OUTSIDE RECORDS SUMMARY | 2023-02-24 09:21 | External Medical Summary | Summary of Care ---
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 Name Role Phone Rafa Bergman MD Primary Care Provide r Reason for Visit * Reason Comments Eye Problem * Auth/Cert Specialty Diagnoses / Procedures Referred By Contac t Referred To Contact Diagnoses Right Eye Infection Referral ID Status Reason Start Date Expiration Date Visits Re quested Visits Authorized [id number] Encounter Details Date Type Department Care Team Description 11/17/2022 Emergency [facility] Emergency Department ([facility]) [address] [facility] [place] [phone] Herbert Palencia MD [address] [facility] [place] [id number] Eye infection, right (Primary Dx) Allergies Active Allergy Reactions Severity Noted Date Comments Colchicine Diarrhea 06/16/2018 Daptomycin 01/05/2015 Shortness of breath Imipenem Edema airway High 01/05/2015 Metoprolol Low 01/23/2021 Other reaction(s): fatigue Zoledronic Acid 04/24/2012 Myalgias, fever, chills, vomiting x 2 days Sulfa Antibiotics 12/22/2002 Bactrim--itchy all over, eyes swollen documented as of this encounter (statuses as of 11/17/2022) Medications Medication Sig Dispensed Refills Start Date [...] days. 7 Tablet 0 11/17/2022 11/24/2022 Active Hospital, Clinic, or Other Facility Administered [...] as of this encounter (statuses as of 11/17/2022) Active Problems Problem Noted Date Other pulmonary [...] S/P angioplasty with stent 11/27/2018 Atherosclerosis of [place] co ronary artery of [place] heart without angina pectoris 07/08/2018 Arthritis of [...] as of this encounter (statuses as of 11/17/2022) Resolved Problems Problem Noted Date Resolved Date Atherosclerosis of coronary artery of [place] heart without angina pectoris 09/10/2022 10/31/2022 Hypothyroidism [...] cava filter Atherosclerotic heart diseas e of [place] coronary artery with angina pectoris 07/08/2018 CKD (chronic kidney disease) stage 2, GFR 60-89 ml/min 03/12/2019 documented as of this encounter (statuses as of 11/17/2022) Immunizations Name Administration Dates Next Due COVID-19 [...] Taken Comments Blood Pressure - - Pulse 85 11/17/2022 3:47 AM EDT Temperature 36.6 C (97.8 F) 11/17/2022 3:47 AM ED T Respiratory Rate 18 11/17/2022 3:47 AM EDT Oxygen Saturation 97% 11/17/2022 3:47 AM EDT Inhaled Oxygen Concentration - - Weight - - Height - - Body Mass Index - - documented in this encounter Discharge Instructions * Discharge Instructions* Herbert Palencia MD - 11/17/2022 5:37 AM EDT Use prednisone Forte drops 1 drop right eye every hour until seen by Ophthalmology again on Saturday in [place]. Use Levaquin as prescribed to your pharmacy as well. Return with any worsening symptoms documented in this encounter Consult Notes * Tim Cedeño MD - 11/17/2022 4:56 AM EDT CONSULT - Ophthalmology [facility] [address] Name: Rehana Moran Location: Date: 11/17/2022 Time: 4:56 AM HISTORY OF PRESENT ILLNESS: Rehana is a 77 year old female who presents for endophthalmitis. She is a long time patient of Dr tinsley who had multiple injections in the right eye for BRVO . Last inj was on Monday 11/13. started noticing decrease in vision and by Saturday he vision was severely decreased . She presented to [facility] ER and I was called. She was transferred to [facility] ED for management. She have pain and decreased vision Nursing notes reviewed. 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) Benign neoplasm of skin Benign paroxysmal vertigo 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 10/28/2013 Chronic sinusitis 10/28/2013 CKD (chronic kidney disease) stage 2, GFR 60-89 ml/min Degenerative disc disease, cervical 05/18/2016 Derangement of meniscus right knee Diverticulitis of colon DVT (deep venous thrombosis) ([facility]) 02/28/2015 Dyslipidemia, goal LDL below 100 09/15/2013 [...] shoulder NSTEMI (non-ST elevated myocardial infarction) ([facility]) 04/28/2018 [facility], cathed and LAD stented with [...] to hypertension, elevated TSH, small pericardial effusion [facility] Pericarditis as complication of acute myocardial infarction ([facility]) 05/15/2018 [facility] colchicine not tolerated well. Pericarditis as complication of acute myocardial infarction ([facility]) 06/05/2018 [facility] steroids Postmenopausal atrophic vaginitis 09/15/2013 Presence of vena cava filter PROLAPSE OF VAGINAL WALL 10/28/2000 Pulmonary embolism and infarction ([facility]) 08/30/2009 Pulmonary embolus ([facility]) 1999 Retroperitoneal bleed 02/28/2015 Sebaceous hyperplasia, Rt forehead 10/05/97 01/28/2002 Senile osteoporosis 05/14/2008 Traumatic rupture of left posterior tibial tendon 12/07/14 Urinary frequency 09/15/2013 Viral warts, unspecified Condylomata Vitamin B12 deficiency 05/12/2014 Vitamin D insufficiency 05/12/2014 PAST SURGICAL HISTORY: Past Surgical History: Procedure Laterality Date ARTHROPLASTY KNEE TOTAL 08/18/2009 right knee ARTHROPLASTY KNEE TOTAL 11/11/2014 left knee- [facility]- Dr. Lopez CARDIAC CATH-CARDIOLOGY ONLY 04/28/2018 AMIE to LAD, PCI to RCA COLONOSCOPY 09/2004 diverticulosis COLONOSCOPY, DIAGNOSTIC (RECTUM) 02/27/2017 diverticulosis, repeat 5 yrs/COLONOSCOPY FLEXIBLE PROXIMAL DIAGNOSTIC performed by Ford Pantoja MD at ENDOSCOPY [facility] CTA CHEST NON-CORONARY W CONTRAST 11/13/2018 no [...] Tinsley INJECTION OF EYE DRUG Right 11/13/2022 $42 Eylea OD; Dr Tinsley IR FILTER PLACEMENT VENA CAVA 10/2014 [facility] MISCELLANEOUS ORDER ([facility] ONLY) 12/02/2013-12/02/2014 LUCENTIS 0.5MG CONSENT SIGNED OD; DR TINSLEY MISCELLYAMIL ORDER ([facility] ONLY) Right 01/12/2015-01/13/2016 LUCENTIS 0.5MG CONSENT OD SIGNED; DR LAUREANO ADAN ORDER ([facility] ONLY) Right 10/21/2015-10/20/2016 EYLEA OD CONSENT SIGNED, Dr. Laureano ADAN ORDER ([facility] ONLY) Right 11/30/2016-11/30/2017 Eylea OD consnet signed, Dr.Cessna ADAN ORDER ([facility] ONLY) Right 01/30/18-01/30/19 EYLEA OD CONSENT SIGNED, Dr. Laureano HOLLAND ([facility] ONLY) ACT 112 signed, 06/12/2018 MISCELLANEOUS [...] performed by Yury Brady MD at OR [facility] REMOVE CATARACT, INSERT LENS PROSTH Left 04/05/2020 left EXTRACAPSULAR CATARACT REMOVAL WITH INTRAOCULAR LENS performed by Yury Brady MD at OR [facility] REPAIR BLADDER & VAGINA, CYSTOCELE 01/2001 Dr Amaya TOTAL ABD HYSTERECTOMY W/WO REMOVAL OF TUBE(S) 1986 Total Abd Hysterectomy with bilateral salpingo-oophorectomy US RENAL 12/31/2011 renal cyst, small post voiding residual VASC DUPLEX VENOUS LE BILAT 11/13/2018 no DVT FAMILY HISTORY: Family History Problem Relation Age of Onset [...] detachments or blindness No Past Hx None 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 Other (Other) None no hx of skin cancer for pt parents SOCIAL HISTORY: Social History Tobacco Use Smoking status: Never Smokeless tobacco: Never Tobacco comments: second hand smoke exposure - 10 years Vaping Use Vaping Use: Never used Substance Use Topics Alcohol use: No Drug use: No ALLERGIES: Imipenem, Colchicine, Daptomycin, Reclast [zoledronic acid], Sulfa antibiotics, and Metoprolol REVIEW OF SYSTEMS: Progressive loss of vision right eye of 2 days Limited Beside Eye Exam VISUAL EXAMINATION: Visual Acuity: Right: HM @ 2 ft near card Intraocular Pressure: Right: 14 Motility: Full ductions and versions Pupils: PERRLA, no Relative Afferent Pupillary Defect (RAPD), and no anisocoria ANTERIOR SEGMENT EXAMINATION (with portable Slit Lamp): Adnexa/Lids: Right: no erythema, no palpable mass, non-tender, normal puncta, 1-2+ meibomian gland dysfunction, and 2+ dermatochalasis Left: no erythema, no palpable mass, non-tender, normal puncta, 1-2+ meibomian gland dysfunction, and 2+ dermatochalasis Conjunctiva/Sclera: Right: diffuse injection 2+ Left: clear, no discharge Cornea: Right: clear and no guttae Left: clear and no guttae Anterior Chamber: Right: 4+ cell and 1+ hypopyon Left: deep and quiet Iris: Right: normal stroma Left: normal stroma Lens: Right: posterior chamber intraocular lens Left: posterior chamber intraocular lens IMPRESSION: Endophthalmitis right eye 3 day s/p IV injection of Eylea for BRVO OD PLAN: 1. Tab and inj today 2. Start of Vigamox ( moxi) Q1h and Pred Forte Q1h rigth eye and atropine BID 3. Start oral Levaquin 500 PO daily for 7 days 4. Follow up as out patient on Saturday in [facility]. Procedure note : The risks and benefits of injection were discussed including but not limited to infection, ocular htn, bleeding, and need for repeated treatment. The patient agrees to proceed and the TAP and Inj informed consent is signed. Vitreous biopsy right eye Intravitreal injection of Vancomycin and Ceftazidime A "time out" was initiated by Tim Cedeño MD prior to procedure. Patient was identified by name and date of . The procedure matches the verbalized consent, and correct procedure and site identified as Biopsy and injection into the right eye. Alcaine was administered topically followed by 0.2 ml of sub conjunctival lidocaine. The right eye was prepped in the usual sterile fashion. A lid speculum was applied. Attempted aspiration of vitreal fluid with 27G needle yielded 200ul fluid . Total of 0.200 ml was aspirated . A vancomycin (0.100ml) Then ceftazidime (0.100ml) were Administered intravitreally 3.5 mm posterior to the limbus in the suprotemporal quadrant via a 30g needle on a TB syringe.. The lid speculum was removed. The patient tolerated the procedure well. documented in this encounter ED Notes * Herbert Palencia MD - 11/17/2022 3:59 AM EDT HISTORY OF PRESENT ILLNESS Rehana Moran is a 77 year old female who presents to the ED for evaluation of Eye Problem. The patient was seen at 11/17/22 0350. Eye Problem Location: Right eye Severity: Moderate Timing: Constant Progression: Worsening Chronicity: New Relieved by: Nothing Worsened by: Nothing Associated symptoms: blurred vision Review of Systems Eyes: Positive for blurred vision. The patient's allergies, past history, and medications were reviewed. PHYSICAL EXAM Initial Vitals (see all): Pulse 85 | Resp 18 | Temp 97.8 | O2 97 %Weight 71.67 kg | Height 160 cm | BMI 27.99 kg/m2 Initial Pain Assessment (see all): 4 (moderate pain)/10, location: eye ([facility] Adult Scale 0-10) Physical Exam Constitutional: General: She is in acute distress (mild). HENT: Head: Normocephalic and atraumatic. Right Ear: External ear normal. Left Ear: External ear normal. Nose: Nose normal. Mouth/Throat: Mouth: Mucous membranes are moist. Eyes: Conjunctiva/sclera: Conjunctivae normal. Cardiovascular: Rate and Rhythm: Normal rate. Pulses: Normal pulses. Pulmonary: Effort: Pulmonary effort is normal. No respiratory distress. Abdominal: General: Abdomen is flat. There is no distension. Tenderness: There is no abdominal tenderness. Musculoskeletal: General: No swelling. Normal range of motion. Cervical back: Normal range of motion. Right lower leg: No edema. Left lower leg: No edema. Skin: General: Skin is warm. Findings: No rash. Neurological: General: No focal deficit present. Mental Status: She is alert and oriented to person, place, and time. Psychiatric: Mood and Affect: Mood normal. Behavior: Behavior normal. PROCEDURES AND TREATMENTS ED Orders | ED Results MEDICAL DECISION MAKING Nursing notes and vital signs were reviewed. ED Course as of 11/17/22 0537 Sat Nov 17, 2022 0356 77-year-old female with CAD, retinal vein occlusion with monthly injections presents emergencydepartment with right eye visual loss. Was seen at emergency department [facility] and sent here for retinal specialist evaluation due to concern for infection. Pain is controlled. Reviewed with ophthalmology who is coming in to see her [VG] 0534 Reviewed w ophtho Levaquin 500 once daily for week Pred forte 1 drop every hour R eye Fu Saturday amberson [VG] ED Course User Index [VG] Herbert Palencia MD Risk Prescription drug management. Clinical Impressions Eye infection, right Disposition Discharged. The patient's condition at disposition was: stable. Discharge Medications Disp Refills Start End levoFLOXacin 500 MG Oral Tablet 7 Tablet 0 11/17/2022 11/24/2022 Sig - Route: Take 1 Tablet by mouth in the morning for 7 days. - Oral Class: ePrescribing Renewals Renewal requests to authorizing provider (Herbert Palencia MD) <b>prohibited</b> Herbert Palencia documented in this encounter Plan of Treatment Upcoming Encounters Date Type Specialty Care Team Description 11/27/2022 Office Visit Family Medicine Rafa Bergman MD [address] [place] [address] [place] [address] 12/24/2022 Nurse Only Rhe[facility] [place], Nurse Rheum [address] [place] [address] 01/01/2023 Office Visit Ophthalmology Pedro Tinsley, DO [address] [place], [place] [address] 01/04/2023 Hospital Encounter Endoscopy Nahun Hong MD [address] [place] [address] 01/04/2023 Surgery Endoscopy Nahun Hong MD [address] [place] [address] COLONOSCOPY FLEXIBLE PROXIMAL DIAGNOSTIC 02/12/2023 Cardiac Studies Cardiology [facility] [address] [place], [place] [address] 02/22/2023 Office Visit Cardiology Charles Ortega, DO [address] [place], [place] [address] 03/06/2023 Office Visit Dermatology Kasey Nieto MD 07/05/2023 Office Visit Rheumatology Deangelo Holley MD [facility] [place] [place] [address] Pending Results Name Type Priority Associated Diagnoses Date /Time MICROBIOLOGY, REQUEST FOR SEQUENCING Lab Routine 11/17/2022 5:38 AM EDT CULTURE, BODY FLUID, AEROBIC AND ANAEROBIC Lab Routine 11/17/2022 5:38 AM EDT Scheduled Orders Name Type Priority Associated Diagnoses Orde r Schedule MICROBIOLOGY, REQUEST FOR SEQUENCING Lab Routine One Time for 1 Occurrences starting 11/17/2022 until 11/17/2022 Scheduled Procedures Name Priority Associated Diagnoses Date/Ti me COLONOSCOPY FLEXIBLE PROXIMAL DIAGNOSTIC Recall Colon cancer screening 01/04/2023 9:00 AM EDT Health Maintenance Due Date Last Done Comments DTaP,Tdap,and Td Vaccines (2 - Td or Tdap) 11/02/2017 11/03/2007 COLONOSCOPY-EVERY 5 YRS AGES 18-100 02/27/2022 02/27/2017, 02/27/2017, 10/17/2004 CKD PHOS USE SMARTSET 25992 04/19/202204/01, 11/27/2019, 11/21/2018, Additional history exists COVID-19 [...] Additional history exists CKD HGB USE SMARTSET 12450 04/24/202304/24, 04/24/2022, 03/27/2022, Additional history exists TSH 05/22/2023 05/22/2022, 03/02, 04/19/2021, Additional history exists DXA Scan 07/18/2024 07/18/2022, 12/01, 05/09/2017, Additional history exists Hepatitis B Completed 03/18/2009, 05/30, 05/12/2008 Pneumococcal Vaccine: 65+ Years Completed 03/28/2015, 03/20/2010, 11/15/2004 Zoster Vaccines Completed 06/12/2021, 02/01, 11/04/2012 VITAMIN D LEVEL ONCE IN A LIFETIME-USE SMARTSET# [id number] Completed 11/06/2021, 12/28/2019, 06/24/2017, Additional history exists GARDASIL-HPV IMMUNIZATION SERIES Aged Out No longer eligible based on patient's age to complete this topic MENINGOCOCCAL (MENACTRA/MENVEO) Aged Out No longer eligible based on patient's age to complete this topic documented as of this encounter Medical Devices Implanted Type Area Driver Retraining Instructor Device Identifier Shelf Expiration Date Model / Serial / Lot Lens Intraoc 21.5 - [id number] - [id number] Implanted:Qty: 1 on 05/12/2019 by Yury Brady MD at OR [facility] Right: Eye [employer] 12/30/2023 [id number] / [id number] / [id number] Lens Intraoc 22.5 - [id number] - [id number] Implanted:Qty: 1 on 04/05/2020 by Yury Brady MD at OR [facility] Left: Eye [employer] 09/28/2024 [id number] / [id number] / [id number] documented as of this encounter Procedures Procedure Name Priority Date/Time Associated Diagnosis Comments CULTURE, BODY FLUID, AEROBIC AND ANAEROBIC Routine 11/17/2022 5:38 AM EDT documented in this encounter Visit Diagnoses Diagnosis Eye infection, right- Primary Colon cancer screening Special screening for malignant neoplasms, colon documented in this encounter Administered Medications Inactive Administered Medications - up to 3 most recent administrations Medication Order MAR Action Action Date Dose Rate Site atropine sulfate 1 % ophthalmic solution 1 Drop 1 Drop, Right eye, ONCE, On 11/17/22 at 0500, For 1 dose Given 11/17/2022 5:00 AM EDT 1 Drop cefTAZidime (Fortaz) (2.25 mg/0.1 mL) inj dilution 2.25 mg 2.25 mg, Intraocular, ONCE, On 11/17/22 at 0430, For 1 dose Given 11/17/2022 4:30 AM EDT 2.25 mg prednisoLONE Acetate (Pred Forte) 1 % ophthalmic suspension 1 Drop 1 Drop, Right eye, ONCE, On 11/17/22 at 0615, For 1 dose Given 11/17/2022 6:15 AM EDT 1 Drop Tetracaine (Pontocaine) 0.5 % ophthalmic solution 1 Drop 1 Drop, Right eye, ONCE, On 11/17/22 at 0515, For 1 dose Given 11/17/2022 5:15 AM EDT 1 Drop vancomycin (Vancocin) (1 mg/0.1 mL) inj dilution 1 mg 1 mg, Intraocular, ONCE, On 11/17/22 at 0445, For 1 dose Given 11/17/2022 4:45 AM EDT 1 mg documented in this encounter Active and Recently Administered Medications Times are shown in EDT. Scheduled Medication Order 11/15/2022 11/16/2022 11/17/2022 atropine sulfate 1 % ophthalmic solution 1 Drop (COMPLETED) 1 Drop, Right eye, ONCE, On 11/17/22 at 0500, For 1 dose 0500 (Given - Provid er: Arya Espinosa RN - Comment: given by Dr. Oconnor) cefTAZidime (Fortaz) (2.25 mg/0.1 mL) inj dilution 2.25 mg (COMPLETED) 2.25 mg, Intraocular, ONCE, On 11/17/22 at 0430, For 1 dose 0430 (Given - Provid er: Arya Espinosa RN - Comment: given by Dr. Oconnor) prednisoLONE Acetate (Pred Forte) 1 % ophthalmic suspension 1 Drop (COMPLETED) 1 Drop, Right eye, ONCE, On 11/17/22 at 0615, For 1 dose 0615 (Given - Provid er: Brunilda De Paz RN) Tetracaine (Pontocaine) 0.5 % ophthalmic solution 1 Drop (COMPLETED) 1 Drop, Right eye, ONCE, On 11/17/22 at 0515, For 1 dose 0515 (Given - Provid er: Arya Espinosa RN - Comment: given by Dr. Oconnor) vancomycin (Vancocin) (1 mg/0.1 mL) inj dilution 1 mg (COMPLETED) 1 mg, Intraocular, ONCE, On 11/17/22 at 0445, For 1 dose 0445 (Given - Provid er: Arya Espinosa RN - Comment: given by Dr. 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
--- OUTSIDE RECORDS SUMMARY | 2023-02-24 09:21 | External Medical Summary | Summary of Care ---
Author Name Unknown Organization [facility] Address [address] [place] [address] Phone [phone] Care Team Providers Care Contour Band Saw Operator Vertical Name Role Phone Rafa Bergman MD Primary Care Provide r Reason for Visit * Reason Onset Date Comments case management 11/21/2022 [facility] Encounter Details Date Type Department Care Team Description 11/21/2022 Channel Rebuilder Telephone Family Medicine [address] [address] Marbella Gandhi, RN [address] [place] [address] case management ([facility]) Allergies Active Allergy Reactions Severity Noted Date Comments Colchicine Diarrhea 06/16/2018 Daptomycin 01/05/2015 Shortness of breath Imipenem Edema airway High 01/05/2015 Metoprolol Low 01/23/2021 Other reaction(s): fatigue Zoledronic Acid 04/24/2012 Myalgias, fever, chills, vomiting x 2 days Sulfa Antibiotics 12/22/2002 Bactrim--itchy all over, eyes swollen documented as of this encounter (statuses as of 11/21/2022) Medications Medication Sig Dispensed Refills Start Date [...] as of this encounter (statuses as of 11/21/2022) Active Problems Problem Noted Date Other pulmonary [...] S/P angioplasty with stent 11/27/2018 Atherosclerosis of [place] co ronary artery of [place] heart without angina pectoris 07/08/2018 Arthritis of [...] as of this encounter (statuses as of 11/21/2022) Resolved Problems Problem Noted Date Resolved Date Atherosclerosis of coronary artery of [place] heart without angina pectoris 09/10/2022 10/31/2022 Hypothyroidism [...] cava filter 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 No answer. Left message requesting call back. [facility] Follow-up Routine Attempted Phone Call First Attempt Call Outcome Left Voicemail/Message Plan Will await call back from patient. documented in this encounter Plan of Treatment Upcoming Encounters Date Type Specialty Care Team Description 11/23/2022 Office Visit Ophthalmology Pedro Tinsley DO [address] [place] [address] 11/27/2022 Office Visit Family Medicine Rafa Bergman MD [address] [place] [address] [place] [address] 12/24/2022 Nurse Only Rheumatology [place], Nurse [address] [place] [phone] 01/01/2023 Office Visit Ophthalmology Pedro Tinsley DO [address] [place] [address] 01/04/2023 Hospital Encounter Endoscopy Nahun Hong MD [address] [place] [address] 01/04/2023 Surgery Endoscopy Nahun Hong MD [address] [place] [address] COLONOSCOPY FLEXIBLE PROXIMAL DIAGNOSTIC 02/12/2023 Cardiac Studies Cardiology Ozzie, Pacer [facility] [address] [place] [address] 02/22/2023 Office Visit Cardiology Charles Ortega DO [address] [place] [address] 03/06/2023 Office Visit Dermatology Kasey Nieto MD 07/05/2023 Office Visit Rheumatology Deangelo Holley MD [address] [facility], [place] [address] Scheduled Procedures Name Priority Associated Diagnoses Date/Ti me COLONOSCOPY FLEXIBLE PROXIMAL DIAGNOSTIC Recall Colon cancer screening 01/04/2023 9:00 AM EDT Health Maintenance Due Date Last Done Comments DTaP,Tdap,and Td Vaccines (2 - Td or Tdap) 11/02/2017 11/03/2007 COLONOSCOPY-EVERY 5 YRS AGES 18-100 02/27/2022 02/27/2017, 02/27/2017, 10/17/2004 CKD PHOS USE SMARTSET 18743 04/19/202204/01, 11/27/2019, 11/21/2018, Additional history exists COVID-19 [...] Additional history exists CKD HGB USE SMARTSET 25403 04/24/202304/24, 04/24/2022, 03/27/2022, Additional history exists TSH 05/22/2023 05/22/2022, 03/02, 04/19/2021, Additional history exists DXA Scan 07/18/2024 07/18/2022, 12/01, 05/09/2017, Additional history exists Hepatitis B Completed 03/18/2009, 05/30, 05/12/2008 Pneumococcal Vaccine: 65+ Years Completed 03/28/2015, 03/20/2010, 11/15/2004 Zoster Vaccines Completed 06/12/2021, 02/01, 11/04/2012 VITAMIN D LEVEL ONCE IN A LIFETIME-USE SMARTSET# [id number] Completed 11/06/2021, 12/28/2019, 06/24/2017, Additional history exists GARDASIL-HPV IMMUNIZATION SERIES Aged Out No longer eligible based on patient's age to complete this topic MENINGOCOCCAL (MENACTRA/MENVEO) Aged Out No longer eligible based on patient's age to complete this topic documented as of this encounter Medical Devices Implanted Type Area Pricing Analyst Device Identifier Shelf Expiration Date Model / Serial / Lot Lens Intraoc 21.5 - [id number] - [id number] Implanted:Qty: 1 on 05/12/2019 by Yury Brady MD at OR [facility] Right: Eye [employer] 12/30/2023 [id number] / [id number] / [id number] Lens Intraoc 22.5 - [id number] - [id number] Implanted:Qty: 1 on 04/05/2020 by Yury Brady MD at OR [facility] Left: Eye [employer]OM[employer] 09/28/2024 [id number] / [id number] / [id number] documented as of this encounter Advance Directives Documents on File Type Date Recorded Patient Lead Quality Technician Expl anation Advance Directives and Living Will 03/11/2018 Krissy Urban ADVANCE DIR ECTIVE Healthcare Agents on File Name Relationship Healthcare Agent Relationship Communication Krissy Ordonez Adult Child Health Care Agen t (per Health Care Power of Plastic Bubble Packer document) Guille Urban Adult Child Health Care Agen t (per Health Care Power of Plastic Bubble Packer document) Care Teams Contour Band Saw Operator Vertical Relationship Specialty Start Date End Date Rafa Bergman MD [address] [place] [address] [place] [address] PCP - General Family Medicine 04/19/21 documented as of this encounter
--- OUTSIDE RECORDS SUMMARY | 2023-02-24 09:21 | External Medical Summary | Summary of Care ---
Author Name Unknown Organization [facility] Address [address] [place] [address] Phone [phone] Care Team Providers Care Transmission Assembler Name Role Phone Rafa Bergman MD Primary Care Provide r Reason for Visit * Reason Onset Date Comments Advice 11/21/2022 Encounter Details Date Type Department Care Team Description 11/21/2022 Telephone Family Medicine [address] [place] [address] Rafa Bergman MD [address] [place] [address] [place] [address] Advice Allergies Active Allergy Reactions Severity Noted Date Comments Colchicine Diarrhea 06/16/2018 Daptomycin 01/05/2015 Shortness of breath Imipenem Edema airway High 01/05/2015 Metoprolol Low 01/23/2021 Other reaction(s): fatigue Zoledronic Acid 04/24/2012 Myalgias, fever, chills, vomiting x 2 days Sulfa Antibiotics 12/22/2002 Bactrim--itchy all over, eyes swollen documented as of this encounter (statuses as of 11/22/2022) Medications Medication Sig Dispensed Refills Start Date [...] as of this encounter (statuses as of 11/22/2022) Active Problems Problem Noted Date Other pulmonary [...] S/P angioplasty with stent 11/27/2018 Atherosclerosis of [place] co ronary artery of [place] heart without angina pectoris 07/08/2018 Arthritis of [...] as of this encounter (statuses as of 11/22/2022) Resolved Problems Problem Noted Date Resolved Date Atherosclerosis of coronary artery of [place] heart without angina pectoris 09/10/2022 10/31/2022 Hypothyroidism [...] cava filter 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 Patient wouldlike to know if the form is ready to be picked up. documented in this encounter Plan of Treatment Upcoming Encounters Date Type Specialty Care Team Description 11/23/2022 Office Visit Ophthalmology Pedro Tinsley, DO [address] [place] [address] 11/27/2022 Office Visit Family Medicine Rafa Bergman MD [address] [place] [address] [place] [address] 12/24/2022 Nurse Only Rheumatology [place], Nurse [address] [place] [phone] 01/01/2023 Office Visit Ophthalmology Pedro Tinsley DO [address] [place] [address] 01/04/2023 Hospital Encounter Endoscopy Nahun Hong MD [address] [place] [address] 01/04/2023 Surgery Endoscopy Nahun Hong MD [address] [place] [address] COLONOSCOPY FLEXIBLE PROXIMAL DIAGNOSTIC 02/12/2023 Cardiac Studies Cardiology [facility] [address] [place] [address] 02/22/2023 Office Visit Cardiology Charles Ortega DO [address] [place] [address] 03/06/2023 Office Visit Dermatology Kasey Nieto MD 07/05/2023 Office Visit Rheumatology Deangelo Holley MD [facility] [place] [address] Scheduled Procedures Name Priority Associated Diagnoses Date/Ti me COLONOSCOPY FLEXIBLE PROXIMAL DIAGNOSTIC Recall Colon cancer screening 01/04/2023 9:00 AM EDT Health Maintenance Due Date Last Done Comments DTaP,Tdap,and Td Vaccines (2 - Td or Tdap) 11/02/2017 11/03/2007 COLONOSCOPY-EVERY 5 YRS AGES 18-100 02/27/2022 02/27/2017, 02/27/2017, 10/17/2004 CKD PHOS USE SMARTSET 20211 04/19/202204/01, 11/27/2019, 11/21/2018, Additional history exists COVID-19 Vaccine (7 - Moderna series) 06/05/2022 02/05/2022, 08/02/2021, 02/28/2021, Additional history exists Depression Screening, Annual for Pts 12 and Over 07/17/2022 07/17/2021 GFR 09/25/2022 03/27/2022, 12/2 04/2021, 10/18/2021, Additional history exists Influenza Vaccine (FLU shot) (#1) 2022 01/30/2022, 12/28/2020, 12/31/2019, Additional history exists Albumin/Creatinine Ratio 03/21/2023 022, 04/19/2021, 12/31/2017, Additional history exists HbA1c 03/21/2023 03/21/2022, 04/01, 10/06/2020, Additional history exists CKD HGB USE SMARTSET 05760 04/24/202304/24, 04/24/2022, 03/27/2022, Additional history exists TSH 05/22/2023 05/22/2022, 03/02, 04/19/2021, Additional history exists DXA Scan 07/18/2024 07/18/2022, 12/01, 05/09/2017, Additional history exists Hepatitis B Completed 03/18/2009, 05/30, 05/12/2008 Pneumococcal Vaccine: 65+ Years Completed 03/28/2015, 03/20/2010, 11/15/2004 Zoster Vaccines Completed 06/12/2021, 02/01, 11/04/2012 VITAMIN D LEVEL ONCE IN A LIFETIME-USE SMARTSET# [id number] Completed 11/06/2021, 12/28/2019, 06/24/2017, Additional history exists GARDASIL-HPV IMMUNIZATION SERIES Aged Out No longer eligible based on patient's age to complete this topic MENINGOCOCCAL (MENACTRA/MENVEO) Aged Out No longer eligible based on patient's age to complete this topic documented as of this encounter Medical Devices Implanted Type Area Reimbursement Director Device Identifier Shelf Expiration Date Model / Serial / Lot Lens Intraoc 21.5 - [id number] - [id number] Implanted:Qty: 1 on 05/12/2019 by Yury Brady MD at OR [facility] Right: Eye [employer] 12/30/2023 [id number] / [id number] / [id number] Lens Intraoc 22.5 - [id number] - [id number] Implanted:Qty: 1 on 04/05/2020 by Yury Brady MD at OR [facility] Left: Eye [employer]OM[employer] 09/28/2024 [id number] / [id number] / [id number] documented as of this encounter Advance Directives Documents on File Type Date Recorded Patient Business Development Representative Expl anation Advance Directives and Living Will 03/11/2018 Krissy Urban ADVANCE DIR ECTIVE Healthcare Agents on File Name Relationship Healthcare Agent Relationship Communication Krissy José Luis Adult Child Health Care Agen t (per Health Care Power of Muffle Operator document) Guille Urban Adult Child Health Care Agen t (per Health Care Power of Muffle Operator document) Care Teams Transmission Assembler Relationship Specialty Start Date End Date Rafa Bergman MD [address] [place] [address] [place] [address] PCP - General Family Medicine 04/19/21 documented as of this encounter
--- OUTSIDE RECORDS SUMMARY | 2023-02-24 09:21 | External Medical Summary | Summary of Care ---
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 7 Tablet 0 11/17/2022 3 Active Moxifloxacin HCl 0.5 % Ophthalmic [...] needed. Per directions on label. 0 Active AZO Bladder Control/Go-Less Oral Capsule Take 300 mg by mouth every morning. 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 Verified patient name/. Advised patient that call is beingrecorded for quality and training purposes. Assessment: Pt. noted the following: alert, oriented, pleasant. Positive attitude. Patient reports she is unable to see out of her right eye. Cannot see anything. Patient reports she goes monthly for eye injections. Somehow, with last injection, some kind of bacteria got into her eye. "It's something very rare." Counter Installer told her he has only ever seen 2 cases in the past 14 years. "It's called Endophalmitis." Reports she went to the ER when she lost the vision in her eye. Reports the only specialistthey could find that could do the procedure she needed was at [facility]. Reports thesituation was urgent, time sensitive, and they almost life flighted her, but her son said he could get her there in the allotted time - which was only hours. When they got there, "they were waiting at the door". Reports she should have realized how urgent it was then. Reports they put a needle in her eye to take out some of the infection, then put another needle in her eye to inject antibiotics. Denies any headaches. "It's uncomfortable to get used to." Reports being a little off balance, but be tter today. To go back to the retinal specialist, again, on Saturday. Reports her eye has debris all through it. Hoping the body will take care of it on its own, otherwise she will have to have anotherprocedure. "This is extremely serious." Patient reports if condition is not addressed in time, the infection can go to the brain, and even cause . Patient has a lot of pamela, and is saying a lot of prayers. Taking several eye drops several times per day, plus oral antibiotics. As for her previous issues with the diverticulitis - reports as "resolved a lot". "A lot better". Continues to avoid high fiber foods, such as fresh fruits and vegetables, corn, nuts, etc. If she feels like she is getting enough fiber, she takes a dose of metamucil at bedtime. CM added to med list.Bowels are moving without issue. Denies any pain, any where. Confirmed upcoming PCP appointment, scheduled for next 11/27/22. Patient plans to keep as scheduled. Did you receive an alert for an annual wellness visit? No Is this call for a hospital, prison or rehab facility discharge to home? No -patient did have [facility] ER visit 11/17/22, transferred to [facility] ER, same day. Medication Reconciliation: Medication Reconciliation completed: partial. Complete med rec to be done on 11/27/22, at PCP appointment. Review of Current goals: Discussed the following patient-centered CM goals with the patient during this discussion: -Prevention: Prevent admission/readmission -Status: On Track - has had one ER, with transfer to 2nd ER, on one day since last encounter. No inpatient stays since end of August. Keeps appointments as scheduled. Taking medications as ordered. Receptive to ongoing participation with case management. -Pain: Patient will have pain well managed -Status: On Track - patient denies any pain, any where. Does reports its "uncomfortable" adjusting to loss of vision in right eye. -SAFETY: Prevent falls or injuries -Status: On Track - no reports of falls or injuries since last encounter. Ambulates without device.Intermittent use of right knee brace. COPD Patient: No CHF Patient: NO CM Plan: Reviewed 3 Red Flags with patient. Advised to call CM with any of the following: Red Flag 1: visionchanges in other eye, Red Flag 2: headaches/dizziness, etc, or Red Flag 3: new/uncontrolled pain, abdominal pain or nausea/vomiting/diarrhea Remote Patient Monitoring: At this time, RPM not offered/considered for patient due to not needed not indicated. Plan for Future Contacts: Plan to follow up within 1 month to check progress on the following goals/needs - any improvement in right eye vision? Pain? Falls or injuries? Abdominal pain? Nausea, vomiting, diarrhea, constipation? Eating/drinking? Edema/swelling? Shortness of breath?. Planned contacts from the following parties will occur this week: Specialty Visit as additional contacts per workflow. Advancement/Closure Plan: Advance to next higher tier, Tier 3. Patient provided CM contact information and encouraged to call with any changes in condition. SNP Member? No PCP Notified of enrollment in CM/HM program: Yes, previously Is Provider in agreement with POC? Yes Marbella Gandhi RN Outpatient Case Management documented in this encounter Plan of Treatment Upcoming Encounters Date Type Specialty Care Team Description 11/23/2022 Office Visit Ophthalmology Pedro Tinsley DO [address] [place] [address] 11/27/2022 Office Visit Family Medicine Rafa Bergman MD [address] [place] [address] [place] [address] 12/24/2022 Nurse Only Rheumatology [place], Nurse [address] [place] [address] 01/01/2023 Office Visit Ophthalmology Pedro Tinsley DO [address] [place] [address] 01/04/2023 Hospital Encounter Endoscopy Nahun Hong MD [address] [place] [address] 01/04/2023 Surgery Endoscopy Nahun Hong MD [address] [place] [address] COLONOSCOPY FLEXIBLE PROXIMAL DIAGNOSTIC 02/12/2023 Cardiac [facility] [address] [place] [address] 02/22/2023 Office Visit Cardiology Charles Ortega DO [address] [place] [address] 03/06/2023 Office Visit Dermatology Kasey Nieto MD 07/05/2023 Office Visit Rheumatology Deangelo Holley MD [address] [place] [address] Scheduled Procedures Name Priority Associated Diagnoses Date/Ti me COLONOSCOPY FLEXIBLE PROXIMAL DIAGNOSTIC Recall Colon cancer screening 01/04/2023 9:00 AM EDT Health Maintenance Due Date Last Done Comments DTaP,Tdap,and Td Vaccines (2 - Td or Tdap) 11/02/2017 11/03/2007 COLONOSCOPY-EVERY 5 YRS AGES 18-100 02/27/2022 02/27/2017, 02/27/2017, 10/17/2004 CKD PHOS USE SMARTSET 34444 04/19/202204/01, 11/27/2019, 11/21/2018, Additional history exists COVID-19 [...] Additional history exists CKD HGB USE SMARTSET 43693 04/24/202304/24, 04/24/2022, 03/27/2022, Additional history exists TSH 05/22/2023 05/22/2022, 03/02, 04/19/2021, Additional history exists DXA Scan 07/18/2024 07/18/2022, 12/01, 05/09/2017, Additional history exists Hepatitis B Completed 03/18/2009, 05/30, 05/12/2008 Pneumococcal Vaccine: 65+ Years Completed 03/28/2015, 03/20/2010, 11/15/2004 Zoster Vaccines Completed 06/12/2021, 02/01, 11/04/2012 VITAMIN D LEVEL ONCE IN A LIFETIME-USE SMARTSET# 63675 Completed 11/06/2021, 12/28/2019, 06/24/2017, Additional history exists GARDASIL-HPV IMMUNIZATION SERIES Aged Out No longer eligible based on patient's age to complete this topic MENINGOCOCCAL (MENACTRA/MENVEO) Aged Out No longer eligible based on patient's age to complete this topic documented as of this encounter Medical Devices Implanted Type Area Charge Account Clerk Device Identifier Shelf Expiration Date Model / Serial / Lot Lens Intraoc 21.5 - [id number] - [id number] Implanted:Qty: 1 on 05/12/2019 by Yury Brady MD at OR [facility] Right: Eye [employer] 12/30/2023 [id number] / [id number] / [id number] Lens Intraoc 22.5 - [id number] - [id number] Implanted:Qty: 1 on 04/05/2020 by Yury Brady MD at OR [facility] Left: Eye [employer]OM[employer] 09/28/2024 [id number] / [id number] / [id number] documented as of this encounter Visit Diagnoses Diagnosis Medical home patient encounter- Primary Other specified examination Endophthalmitis Purulent endophthalmitis, unspecified 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, unspecified complication status Diverticulitis of colon Diverticulitis of colon (without mention of hemorrhage) Colon cancer screening Special screening for malignant neoplasms, colon documented in this encounter Advance Directives Documents on File Type Date Recorded Patient Rodent Exterminator Expl anation Advance Directives and Living Will 03/11/2018 Krissyva Urban ADVANCE DIR ECTIVE Healthcare Agents on File Name Relationship Healthcare Agent Relationship Communication Krissy José Luis Adult Child Health Care Agen t (per Health Care Power of Supplier Quality Engineer document) Guille Urban Adult Child Health Care Agen t (per Health Care Power of Supplier Quality Engineer document) Care Teams Failure Analysis Technician Relationship Specialty Start Date End Date Rafa Bergman MD [address] [place] [address] [place] [address] PCP - General Family Medicine 04/19/21 documented as of this encounter
--- OUTSIDE RECORDS SUMMARY | 2023-02-24 09:22 | External Medical Summary | Summary of Care ---
Author Name Unknown Organization [facility] Address [address] [place] [address] Phone [phone] Care Team Providers Care Corporate Treasury Analyst Name Role Phone Rafa [place]man MD Primary Care Provide r Reason for Visit * Reason Onset Date Comments Forms Request 10/17/2022 Call patient whe n forms are completed Encounter Details Date Type Department Care Team Description 10/17/2022 Telephone Family Medicine [address] [place] [address] Rafa Bergman MD [address] [place] [address] [place] [address] Forms Request (Call patient when forms are... Allergies Active Allergy Reactions Severity Noted Date Comments Colchicine Diarrhea 06/16/2018 Daptomycin 01/05/2015 Shortness of breath Imipenem Edema airway High 01/05/2015 Metoprolol Low 01/23/2021 Other reaction(s): fatigue Zoledronic Acid 04/24/2012 Myalgias, fever, chills, vomiting x 2 days Sulfa Antibiotics 12/22/2002 Bactrim--itchy all over, eyes swollen documented as of this encounter (statuses as of 10/19/2022) Medications Medication Sig Dispensed Refills Start Date [...] other meds) 90 Tablet 3 03/19/2022 Active dilTIAZem HCl ER Coated Beads 360 MG Oral Tablet Extended Release 24 Hour TAKE ONE TABLET BY MOUTH EVERY DAY 90 Tablet 1 05/06/2022 Active Rosuvastatin Calcium 5 MG Oral Tablet [...] each day 30 Tablet 2 10/11/2022 Active Hospital, Clinic, or Other Facility Administered [...] as of this encounter (statuses as of 10/19/2022) Active Problems Problem Noted Date Other pulmonary embolism with acute cor pulmonale 10/01/2022 S/P placement of cardiac pacemaker 10/01 Medical home patient encounter 3 Tachy-chintan syndrome 09/10/2022 Atherosclerosis of coronary artery of na tive heart without angina pectoris 09/10/2022 Gastro-esophageal reflux disease with es ophagitis, without bleeding 12/15/2021 Prediabetes 05/15/2021 Overview: Per Prediabetes protocol Chronic kidney disease, stage 3a 021 Overview: Per CKD protocol History of basal cell carcinoma 07/07/19 21 Hypertensive kidney disease with stage 3 a chronic kidney disease 02/08/2020 Overview: Per CKD protocol - Per CKD protocol S/P angioplasty with stent 11/27/2018 Atherosclerosis of [place] co ronary artery of [place] heart without angina pectoris 07/08/2018 Arthritis of [...] as of this encounter (statuses as of 10/19/2022) Resolved Problems Problem Noted Date Resolved Date Hypothyroidism 12/15/2021 03/07/2022 Hyperlipidemia 12/15/2021 03/07/2022 Hypertensive [...] cava filter Atherosclerotic heart diseas e of [place] coronary artery with angina pectoris 07/08/2018 CKD (chronic kidney disease) stage 2, GFR 60-89 ml/min 03/12/2019 documented as of this encounter (statuses as of 10/19/2022) Immunizations Name Administration Dates Next Due COVID-19 mRNA, LNP-s, No Pre serve, 2-Dose Series (Moderna) 02/05/2022,02/28/2021,05/28/2020,04/02 Covid-19 Mrna, Lnp-s, No Pre serve, Booster (Moderna) 08/02/2021,02/07/2021 Hepatitis B, 20+ yrs 03/18/2009,06/14/2008,05/1211/14/2008 Influenza, Whole Virus 02/26/2000 1 Pneumococcal Conjugate Vacc, 13 Valent (Prevnar) 03/28/2015 Pneumococcal Polysaccharide PPV23 (Pneumovax) 03/20/2010,11/15/2004 Seasonal Influenza, Quadriva lent Hd (Fluzone Hd) 12/28/2020 Seasonal Influenza, Quadriva lent, No Preserve, 6 Mons & Above, IM 12/31/2019,02/17/2019,12/31/2017 Seasonal Influenza, Quadriva lent, No Preserve, Adjuvanted, 65+ Yrs, IM 01/30/2022 Seasonal Influenza, Split, I IV3, With Preserve, [...] Telephone Encounter - Camila Johnson LPN - 10/19/2022 10:30 AM EDT MyG message sent to pt Placed at patient coordinator front desk for the pt to picking machine operator helper Copy sent to [facility] * Telephone Encounter - Rafa [place]man MD - 10/19/2022 9:52 AM EDT Form completed * Telephone Encounter - Camila Johnson LPN - 10/17/2022 3:13 PM EDT Placed on Dr. Bergman's desk for a signature * Telephone Encounter - Ynes Ulrich - 10/17/2022 12:35 PM EDT Patient dropped off forms to be filled out for mail order for meds. Please call when done and she will picking machine operator helper. [phone] (put in doctor box) documented in this encounter Plan of Treatment Upcoming Encounters Date Type Specialty Care Team Description 11/13/2022 Office Visit Ophthalmology Pedro Tinsley, DO [address] [place] [address] 11/14/2022 Office Visit Family Medicine Rafa [place] MD [address] [place] [address] [place] [address] 11/21/2022 Office Visit Cardiology Chrales Ortega, [address] [place] [address] 12/24/2022 Nurse Only Rheumatology [place], Nurse Rheum [address] [place], [place] [phone] 01/04/2023 Hospital Encounter Endoscopy Nahun Hong MD [address] [place] [address] 01/04/2023 Surgery Endoscopy Nahun Hong MD [address] [place] [address] COLONOSCOPY FLEXIBLE PROXIMAL DIAGNOSTIC 02/12/2023 Cardiac Studies Cardiology [facility] [address] [place] [address] 02/22/2023 Office Visit Cardiology Charles Ortega DO [address] [place] [address] 03/06/2023 Office Visit Dermatology Kasey Nieto MD 07/05/2023 Office Visit Rheumatology Deangelo Holley MD [facility] [place] [address] Scheduled Procedures Name Priority Associated Diagnoses Date/Ti me COLONOSCOPY FLEXIBLE PROXIMAL DIAGNOSTIC Recall Colon cancer screening 01/04/2023 9:00 AM EDT Health Maintenance Due Date Last Done Comments DTaP,Tdap,and Td Vaccines (2 - Td or Tdap) 11/02/2017 11/03/2007 COLONOSCOPY-EVERY 5 YRS AGES 18-100 02/27/2022 02/27/2017, 02/27/2017, 10/17/2004 CKD PHOS USE SMARTSET 36431 04/19/202204/01, 11/27/2019, 11/21/2018, Additional history exists COVID-19 [...] D LEVEL ONCE IN A LIFETIME-USE SMARTSET# 63360 Completed 11/06/2021, 12/28/2019, 06/24/2017, Additional history exists GARDASIL-HPV IMMUNIZATION SERIES Aged Out No longer eligible based on patient's age to complete this topic MENINGOCOCCAL (MENACTRA/MENVEO) Aged Out No longer eligible based on patient's age to complete this topic documented as of this encounter Medical Devices Implanted Type Area Last Cleaner Device Identifier Shelf Expiration Date Model / Serial / Lot Lens Intraoc 21.5 - [id number] - [id number] Implanted:Qty: 1 on 05/12/2019 by Yury Brady MD at OR [facility] Right: Eye BAUSCH [employer] LOMB 12/30/2023 [id number] / [id number] / [id number] Lens Intraoc 22.5 - [id number] - [id number] Implanted:Qty: 1 on 04/05/2020 by Yury Brady MD at [facility] Left: Eye BAUSCH & LOMB 09/28/2024 [id number] / [id number] / [id number] documented as of this encounter Advance Directives Documents on File Type Date Recorded Patient Rehabilitation Team Lead Expl anation Advance Directives and Living Will 03/11/2018 Krissy Urban ADVANCE DIR ECTIVE Healthcare Agents on File Name Relationship Healthcare Agent Relationship Communication Krissy Ordonez Adult Child Health Care Agen t (per Health Care Power of Ag Equipment Field Service Technician document) Guille Urban Adult Child Health Care Agen t (per Health Care Power of Ag Equipment Field Service Technician document) Care Teams Corporate Treasury Analyst Relationship Specialty Start Date End Date Rafa [place] MD [address] [place] [address] [place] [address] PCP - General Family Medicine 04/19/21 documented as of this encounter
--- OUTSIDE RECORDS SUMMARY | 2023-02-24 09:22 | External Medical Summary | Summary of Care ---
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 Procedures INJECTION OF EYE DRUG AFLIBERCEPT IO SOLN, PER 1MG, INJ Pedro Tinsley DO [address] [place] [address] Referral ID Status Reason Start Date Expiration Date V isits Requested Visits Authorized [id number] Authorized Precert 11/25/2018 03/31/2099 99 99 Encounter Details Date Type Department Care Team Description 11/13/2022 Office Visit Ophthalmology, [facility] [address] [place] [address] Pedro Tinsley DO [address] [place] [address] 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* Allergies Active Allergy Reactions Severity Noted Date Comments Colchicine Diarrhea 06/16/2018 Daptomycin 01/05/2015 Shortness of breath Imipenem Edema airway High 01/05/2015 Metoprolol Low 01/23/2021 Other reaction(s): fatigue Zoledronic Acid 04/24/2012 Myalgias, fever, chills, vomiting x 2 days Sulfa Antibiotics 12/22/2002 Bactrim--itchy all over, eyes swollen documented as of this encounter (statuses as of 11/13/2022) Medications Medication Sig Dispensed Refills Start Date [...] EVERY DAY 90 Tablet 3 10/31/2022 Active Hospital, Clinic, or Other Facility Administered [...] as of this encounter (statuses as of 11/13/2022) Active Problems Problem Noted Date Other pulmonary [...] S/P angioplasty with stent 11/27/2018 Atherosclerosis of [place] co ronary artery of [place] heart without angina pectoris 07/08/2018 Arthritis of [...] as of this encounter (statuses as of 11/13/2022) Resolved Problems Problem Noted Date Resolved Date Atherosclerosis of coronary artery of [place] heart without angina pectoris 09/10/2022 10/31/2022 Hypothyroidism [...] cava filter Atherosclerotic heart diseas e of [place] coronary artery with angina pectoris 07/08/2018 CKD (chronic kidney disease) stage 2, GFR 60-89 ml/min 03/12/2019 documented as of this encounter (statuses as of 11/13/2022) Immunizations Name Administration Dates Next Due COVID-19 [...] encounter Progress Notes * Pedro Tinsley, - 11/13/2022 3:15 PM EDT [facility] [place] Nursing notes reviewed. Eye vitals reviewed. Mood and Affect: normal HPI: Rehana Moran is a 77 year old female who presents for RVO No other eye complaints. Denies significant pain. Base Eye Exam Visual Acuity (Snellen - Linear) Right Left Dist sc 20/70 -1 20/20 Tonometry (Tonopen, 2:56 PM) Right Left Pressure 9 9 Pupils Pupils Light Shape React APD Right PERRL 3 Round Brisk None Left PERRL 3 Round Brisk None Visual Toribio (Counting fingers) Right Left Full Full Extraocular Movement Right Left Full Full Neuro/Psych Oriented x3: Yes Dilation Both eyes: 0.5% Proparacaine @ 2:55 PM Dilation #2 Right eye: 1.0% Mydriacyl, 2.5% Phenylephrine @ 2:55 PM Dilation Comments Patient cautioned that effects of dilation may last 2-7 hours dependant upon individual reaction. It was discussed that driving while dilated is not recommended. EXTERNAL: The ocular adnexae are unremarkable. SLE: Lids/Lashes: wnl OU Conjunctiva/Sclera: quiet OU Cornea: clear OU Anterior Chamber: deep and quiet OU Iris: normal OU; no NVI OU Lens: PCIOL OU Dilated fundus exam [...] OS: 11-30-16: wnl, no CME/SRFluid - stable A/P: 1. 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 -pt risk factors: HTN, hyperchol--on meds for all -h/o multiple clots -already taking ASA 81 mg qday -h/o PE--on coumadin -s/p Lucentis (07/15/15, 05/24/21, 06/03/15, 04/22/15, 03/11/15, 02/07/15, 01/12/15, 11/03/14, 10/15/14, 09/17/14, 08/20/14, 06/18/14, 05/07/14, 03/30/14, 02/12/14, 01/08/14, 12/02/13) -s/p EYLEA (09/19/22, 07/31/22, 06/12/22, 04/18/22, 08/29/21, 07/13/21, 03/29/21, , -05-22, 10-06-20, 08-04-20, 06/02/20, 03-22-20, 01-21-20, 10/29/19, 08-13-19, 05/27/19, 11-25-18, 08-21-18, 06-12-18, 04-03-18, 01-30-18, 11/28/17, 10-03-17, 18, 05-17-2017, 03-21-17, 01-25-17, 11-30-16, 10-05-16, 07/27/16, 17, 03-16-2016, 12/06/15, 10/21/15) - 8 weeks since last injection--(pt missed appoint) --WORSE ; worse at 9 and 10 and 12 weeks was good in past at 12-14 weeks - best at 6-8 weeks 2. Small Choroidal Nevus OD -low risk -no change -monitor 3. Refractive Error -recommend glasses rx TIMEOUT PROCEDURE: correct patient identity-YES correct procedure [...] DO, performed the procedure in its entirety. F/u 6-8 weeks - Dilate and OCT OD; fundus photos OD--nevus Pedro Tinsley DO CC: YAYA documented in this encounter Nursing Notes * GATITO Harris - 11/13/2022 3:24 PM EDT Rehana Moran to receive 42 Eylea 2mg Injection of the Right eye. Correct eye confirmed with patient and marked by Pedro Tinsley DO Eylea 2mg lot # [id number] Exp. Date: 12/2023 * Isael Ledesma RN - 11/13/2022 2:57 PM EDT Rehana Moran is a 77 year old year old female who presents for BRVO OD. Last Office Visit: 09/19/2022 (in office), Visit date not found (telemedicine) Patient currently states no change in vision. Are you diabetic? No Do you drive? yes OCT image(s) of right eye acquired and filed/scanned into chart. documented in this encounter Plan of Treatment Upcoming Encounters Date Type Specialty Care Team Description 11/27/2022 Office Visit Family Medicine Rafa [place] MD [address] [place] [address] [place] [address] 12/24/2022 Nurse Only Rheumatology [place], Nurse [address] [place] [address] 01/04/2023 Hospital Encounter Endoscopy Nahun Hong MD [address] [place] [address] 01/04/2023 Surgery Endoscopy Nahun Hong MD [address] [place] [address] COLONOSCOPY FLEXIBLE PROXIMAL DIAGNOSTIC 02/12/2023 Cardiac Studies Cardiology [facility], [facility] [address] [place] [address] 02/22/2023 Office Visit Cardiology Charles Ortega DO [address] [place] [address] 03/06/2023 Office Visit Dermatology Kasey Nieto MD 07/05/2023 Office Visit Rheumatology Deangelo Holley MD [address] [place], [place] [address] Scheduled Procedures Name Priority Associated Diagnoses Date/Ti me COLONOSCOPY FLEXIBLE PROXIMAL DIAGNOSTIC Recall Colon cancer screening 01/04/2023 9:00 AM EDT Health Maintenance Due Date Last Done Comments DTaP,Tdap,and Td Vaccines (2 - Td or Tdap) 11/02/2017 11/03/2007 COLONOSCOPY-EVERY 5 YRS AGES 18-100 02/27/2022 02/27/2017, 02/27/2017, 10/17/2004 CKD PHOS USE SMARTSET 68057 04/19/202204/01, 11/27/2019, 11/21/2018, Additional history exists COVID-19 [...] Additional history exists CKD HGB USE SMARTSET 15629 04/24/202304/24, 04/24/2022, 03/27/2022, Additional history exists TSH 05/22/2023 05/22/2022, 03/02, 04/19/2021, Additional history exists DXA Scan 07/18/2024 07/18/2022, 12/01, 05/09/2017, Additional history exists Hepatitis B Completed 03/18/2009, 05/30, 05/12/2008 Pneumococcal Vaccine: 65+ Years Completed 03/28/2015, 03/20/2010, 11/15/2004 Zoster Vaccines Completed 06/12/2021, 02/01, 11/04/2012 VITAMIN D LEVEL ONCE IN A LIFETIME-USE SMARTSET# 45473 Completed 11/06/2021, 12/28/2019, 06/24/2017, Additional history exists GARDASIL-HPV IMMUNIZATION SERIES Aged Out No longer eligible based on patient's age to complete this topic MENINGOCOCCAL (MENACTRA/MENVEO) Aged Out No longer eligible based on patient's age to complete this topic documented as of this encounter Medical Devices Implanted Type Area Project Geologist Device Identifier Shelf Expiration Date Model / Serial / Lot Lens Intraoc 21.5 - [id number] - [id number] Implanted:Qty: 1 on 05/12/2019 by Yury Brady MD at OR [facility] Right: Eye BAUSCH [employer] LOMB 12/30/2023 [id number] / [id number] / [id number] Lens Intraoc 22.5 - [id number] - [id number] Implanted:Qty: 1 on 04/05/2020 by Yury Brady MD at OR [facility] Left: Eye BAUSCH & LOMB 09/28/2024 [id number] / [id number] / [id number] documented as of this encounter Visit Diagnoses Diagnosis 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- Primary Colon cancer screening Special screening for malignant neoplasms, colon documented in this encounter Administered Medications Active Administered Medications - up to 3 most recent administrations Medication Order MAR Action Action Date Dose Rate Site Aflibercept (Eylea) intraviteal prefilled syringe 2 mg 2 mg, Intravitreal, PRN Other, Starting on Sat09/19/22 at 1440, Until Karime 09/19/23 at 1439, For 365 days Given 11/13/2022 3:25 PM EDT 2 mg Eye Right Given 09/19/2022 2:41 PM EDT 2 mg Ey e Right ROPivacaine (Naropin) inj 1.5 mg 1.5 mg, Injection, PRN Other, Starting on Sat09/19/22 at 1440, Until Karime 09/19/23 at 1439, For 365 days Given 11/13/2022 3:25 PM EDT 1.5 mg Eye R ight Given 09/19/2022 2:41 PM EDT 1.5 mg Ey e Right documented in this encounter Advance Directives Documents on File Type Date Recorded Patient Laser/Electro Optics Technician Expl anation Advance Directives and Living Will 03/11/2018 Krissy Urban ADVANCE DIR ECTIVE Healthcare Agents on File Name Relationship Healthcare Agent Relationship Communication Krissy Ordonez Adult Child Health Care Agen t (per Health Care Power of Aircraft Loadmaster Superintendent document) Guille Urban Adult Child Health Care Agen t (per Health Care Power of Aircraft Loadmaster Superintendent document) Care Teams Job Site Supervisor Relationship Specialty Start Date End Date Rafa [place] MD [address] [place] [address] [place] [address] PCP - General Family Medicine 04/19/21 documented as of this encounter
--- OUTSIDE RECORDS SUMMARY | 2023-02-24 09:22 | External Medical Summary | Summary of Care ---
Author Name Unknown Organization [facility] Address [address] [facility] [place] [address] Phone [phone] Care Team Providers Care Medical Assistant Cardiology Name Role Phone Rafa [place]man MD Primary [...] Pedro Tinsley DO [address] [place] [address] Referral ID Status Reason Start Date Expiration Date V isits Requested Visits Authorized [id number] Authorized Precert 11/25/2018 03/31/2099 99 99 Encounter Details Date Type Department Care Team Description 11/13/2022 Office Visit Ophthalmology, [facility] [address] [place] [address] Pedro Tinsley DO [address] [place] [address] Branch retinal vein occlusion with macular edema [...] S/P angioplasty with stent 11/27/2018 Atherosclerosis of [place] co ronary artery of [place] heart without angina pectoris 07/08/2018 Arthritis of [...] Resolved Date Atherosclerosis of coronary artery of [place] heart without angina pectoris 09/10/2022 10/31/2022 Hypothyroidism [...] cava filter Atherosclerotic heart diseas e of [place] coronary artery with angina pectoris 07/08/2018 CKD [...] - 11/13/2022 3:15 PM EDT [facility] [place] Nursing notes [...] GATITO Harris - 11/13/2022 3:24 PM EDT Rheana Moran to receive 42 Eylea 2mg Injection of the Right eye. Correct eye confirmed with patient and marked by Pedro Tinsley DO Eylea 2mg lot # [id number] Exp. Date: 12/2023 * Isael Ledesma RN [...] Office Visit Family Medicine Rafa [place] MD [address] [place] [address] [place] [address] 12/24/2022 Nurse Only Rheumatology [place], Nurse [address] [place] [address] 01/04/2023 Hospital Encounter Endoscopy Nahun Hong MD [address] [place] [address] 01/04/2023 Surgery Endoscopy Nahun Hong MD [address] [place] [address] COLONOSCOPY FLEXIBLE PROXIMAL DIAGNOSTIC 02/12/2023 Cardiac Studies Cardiology [facility], [facility] [address] [place] [address] 02/22/2023 Office Visit Cardiology Charles Ortega DO [address] [place] [address] 03/06/2023 Office Visit Dermatology Kasey Nieto MD 07/05/2023 Office Visit Rheumatology Deangelo Holley MD [address] [place], [place] [address] Scheduled Procedures Name Priority Associated Diagnoses Date/Ti me COLONOSCOPY FLEXIBLE PROXIMAL DIAGNOSTIC Recall Colon cancer screening 01/04/2023 9:00 AM EDT Health Maintenance Due Date Last Done Comments DTaP,Tdap,and Td Vaccines (2 - Td or Tdap) 11/02/2017 11/03/2007 COLONOSCOPY-EVERY 5 YRS AGES 18-100 02/27/2022 02/27/2017, 02/27/2017, 10/17/2004 CKD PHOS USE SMARTSET 66453 04/19/202204/01, 11/27/2019, 11/21/2018, Additional history exists COVID-19 [...] Additional history exists CKD HGB USE SMARTSET 13159 04/24/202304/24, 04/24/2022, 03/27/2022, Additional history exists TSH 05/22/2023 05/22/2022, 03/02, 04/19/2021, Additional history exists DXA Scan 07/18/2024 07/18/2022, 12/01, 05/09/2017, Additional history exists Hepatitis B Completed 03/18/2009, 05/30, 05/12/2008 Pneumococcal Vaccine: 65+ Years Completed 03/28/2015, 03/20/2010, 11/15/2004 Zoster Vaccines Completed 06/12/2021, 02/01, 11/04/2012 VITAMIN D LEVEL ONCE IN A LIFETIME-USE SMARTSET# 46161 Completed 11/06/2021, 12/28/2019, 06/24/2017, Additional history exists GARDASIL-HPV IMMUNIZATION SERIES Aged Out No longer eligible based on patient's age to complete this topic MENINGOCOCCAL (MENACTRA/MENVEO) Aged Out No longer eligible based on patient's age to complete this topic documented as of this encounter Medical Devices Implanted Type Area Letterer Device Identifier Shelf Expiration Date Model / Serial / Lot Lens Intraoc 21.5 - [id number] - [id number] Implanted:Qty: 1 on 05/12/2019 by Yury Brady MD at OR [facility] Right: Eye BAUSCH [employer] LOMB 12/30/2023 [id number] / [id number] / [id number] Lens Intraoc 22.5 - [id number] - [id number] Implanted:Qty: 1 on 04/05/2020 by Yury Brady MD at OR [facility] Left: Eye BAUSCH & LOMB 09/28/2024 [id number] / [id number] / [id number] documented as of this encounter Visit Diagnoses [...] Documents on File Type Date Recorded Patient Hammer Driver Expl anation Advance Directives and Living Will 03/11/2018 Krissy Urban ADVANCE DIR ECTIVE Healthcare Agents on File Name Relationship Healthcare Agent Relationship Communication Krissy Ordonez Adult Child Health Care Agen t (per Health Care Power of Director Critical Care document) Guille Urban Adult Child Health Care Agen t (per Health Care Power of Director Critical Care document) Care Teams Medical Assistant Cardiology Relationship Specialty Start Date End Date Rafa eBrgman MD [address] [place] [address] [place] [address] PCP - General Family Medicine 04/19/21 documented as of this encounter
--- OUTSIDE RECORDS SUMMARY | 2023-02-24 09:22 | External Medical Summary | Summary of Care ---
Author Name Unknown Organization [facility] Address [address] [facility] [place] [address] Phone [phone] Care Team Providers Care Industrial Diamond Polisher Name Role Phone Rafa Bergman MD Primary [...] Pedro Tinsley DO [address] [place] [address] Referral ID Status Reason Start Date Expiration Date V isits Requested Visits Authorized [id number] Authorized Precert 11/25/2018 03/31/2099 99 99 Encounter Details Date Type Department Care Team Description 11/13/2022 Office Visit Ophthalmology, [facility] [address] [place] [address] Pedro Tinsley DO [address] [place] [address] 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 [...] Pedro Tinsley DO Eylea 2mg lot # [id number] Exp. Date: 12/2023 * Isael Ledesma RN [...] Office Visit Family Medicine Rafa Bergman MD [address] [place] [address] [place] [address] 12/24/2022 Nurse Only Rheumatology [place], Nurse Rheum [address] [place] [phone] 01/01/2023 Office Visit Ophthalmology Pedro Tinsley, [address] [address] 01/04/2023 Hospital Encounter Endoscopy Nahun Hong MD [address] [place] [address] 01/04/2023 Surgery Endoscopy Nahun Hong MD [address] [place] [address] COLONOSCOPY FLEXIBLE PROXIMAL DIAGNOSTIC 02/12/2023 Cardiac Studies Cardiology Cadence Horne [facility] [address] [place] [address] 02/22/2023 Office Visit Cardiology Charles Ortega, [address] [place] [address] 03/06/2023 Office Visit Dermatology Kasey Nieto MD 07/05/2023 Office Visit Rheumatology Deangelo Holley MD [address] [place] [address] Scheduled Procedures Name Priority Associated Diagnoses Date/Ti me COLONOSCOPY FLEXIBLE PROXIMAL DIAGNOSTIC Recall Colon cancer screening 01/04/2023 9:00 AM EDT Health Maintenance Due Date Last Done Comments DTaP,Tdap,and Td Vaccines (2 - Td or Tdap) 11/02/2017 11/03/2007 COLONOSCOPY-EVERY 5 YRS AGES 18-100 02/27/2022 02/27/2017, 02/27/2017, 10/17/2004 CKD PHOS USE SMARTSET 89403 04/19/202204/01, 11/27/2019, 11/21/2018, Additional history exists COVID-19 [...] Additional history exists CKD HGB USE SMARTSET 00950 04/24/202304/24, 04/24/2022, 03/27/2022, Additional history exists TSH 05/22/2023 05/22/2022, 03/02, 04/19/2021, Additional history exists DXA Scan 07/18/2024 07/18/2022, 12/01, 05/09/2017, Additional history exists Hepatitis B Completed 03/18/2009, 05/30, 05/12/2008 Pneumococcal Vaccine: 65+ Years Completed 03/28/2015, 03/20/2010, 11/15/2004 Zoster Vaccines Completed 06/12/2021, 02/01, 11/04/2012 VITAMIN D LEVEL ONCE IN A LIFETIME-USE SMARTSET# [id number] Completed 11/06/2021, 12/28/2019, 06/24/2017, Additional history exists GARDASIL-HPV IMMUNIZATION SERIES Aged Out No longer eligible based on patient's age to complete this topic MENINGOCOCCAL (MENACTRA/MENVEO) Aged Out No longer eligible based on patient's age to complete this topic documented as of this encounter Medical Devices Implanted Type Area Employee Service Officer Device Identifier Shelf Expiration Date Model / Serial / Lot Lens Intraoc 21.5 - [id number] - [id number] Implanted:Qty: 1 on 05/12/2019 by Yury Brady MD at OR [facility] Right: Eye [employer]USCH [employer] LOMB 12/30/2023 [id number] / [id number] / [id number] Lens Intraoc 22.5 - [id number] - [id number] Implanted:Qty: 1 on 04/05/2020 by Yury Brady MD at OR [facility] Left: Eye BAUSCH & LOMB 09/28/2024 [id number] / [id number] / [id number] documented as of this encounter Visit Diagnoses [...] 2 mg, Intravitreal, PRN Other, Starting on 09/19/22 at 1440, Until Karime 09/19/23 at 1439, [...] Documents on File Type Date Recorded Patient Letterpress Setter Expl anation Advance Directives and Living Will 03/11/2018 Krissy Urban ADVANCE DIR ECTIVE Healthcare Agents on File Name Relationship Healthcare Agent Relationship Communication Krissy Ordonez Adult Child Health Care Agen t (per Health Care Power of Account Executive Software Sales document) Guille Urban Adult Child Health Care Agen t (per Health Care Power of Account Executive Software Sales document) Care Teams Industrial Diamond Polisher Relationship Specialty Start Date End Date Rafa Bergman MD [address] [place] [address] [place] [address] PCP - General Family Medicine 04/19/21 documented as of this encounter
--- OUTSIDE RECORDS SUMMARY | 2023-02-24 09:22 | External Medical Summary | Summary of Care ---
Author Name Unknown Organization [facility] Address [address] [place] [address] Phone [phone] Care Team Providers Care Shrub Planter Name Role Phone Rafa Bergman MD Primary Care Provide r Reason for Visit * Reason Onset Date Comments Forms Request 11/08/2022 Encounter Details Date Type Department Care Team Description 11/08/2022 Telephone Family Medicine [address] [place] [address] Rafa Bergman MD [address] [place] [address] [place] [address] Forms Request Allergies Active Allergy Reactions Severity Noted Date Comments Colchicine Diarrhea 06/16/2018 Daptomycin 01/05/2015 Shortness of breath Imipenem Edema airway High 01/05/2015 Metoprolol Low 01/23/2021 Other reaction(s): fatigue Zoledronic Acid 04/24/2012 Myalgias, fever, chills, vomiting x 2 days Sulfa Antibiotics 12/22/2002 Bactrim--itchy all over, eyes swollen documented as of this encounter (statuses as of 11/08/2022) Medications Medication Sig Dispensed Refills Start Date [...] as of this encounter (statuses as of 11/08/2022) Active Problems Problem Noted Date Other pulmonary [...] S/P angioplasty with stent 11/27/2018 Atherosclerosis of [place] co ronary artery of [place] heart without angina pectoris 07/08/2018 Arthritis of [...] as of this encounter (statuses as of 11/08/2022) Resolved Problems Problem Noted Date Resolved Date Atherosclerosis of coronary artery of [place] heart without angina pectoris 09/10/2022 10/31/2022 Hypothyroidism [...] cava filter 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 07/08/2018 CKD (chronic kidney disease) stage 2, GFR 60-89 ml/min 03/12/2019 documented as of this encounter (statuses as of 11/08/2022) Immunizations Name Administration Dates Next Due COVID-19 mRNA, LNP-s, No Pre serve, 2-Dose Series (Moderna) 02/05/2022,02/28/2021,05/28/2020,04/02 Covid-19 Mrna, Lnp-s, No Pre serve, Booster (Moderna) 08/02/2021,02/07/2021 Hepatitis B, 20+ yrs 03/18/2009,06/14/2008,05/1211/14/2008 Pneumococcal Conjugate Vacc, 13 Valent (Prevnar) 03/28/2015 Pneumococcal Polysaccharide PPV23 (Pneumovax) 03/20/2010 Seasonal Influenza, Quadriva lent Hd (Fluzone Hd) [...] Telephone Encounter - Rafa Bergman MD - 11/08/2022 3:53 PM EDT Form signed * Telephone Encounter - Camila Johnson LPN - 11/08/2022 3:46 PM EDT Form placed on Dr. Bergman's desk for signature if agreeable Provider to address: PCP Reason for Call: Forms Request Contact: Telephone Call Contact Type: Follow-up Outcome: see above Total Time including non face to face (minutes): 10 * Telephone Encounter - Ynes Ulrich - 11/08/2022 8:17 AM EDT Patient dropped off papers to be filled out for ins. Claim, Please call when done and she will pickup. Forms put in doctor box documented in this encounter Plan of Treatment Upcoming Encounters Date Type Specialty Care Team Description 11/13/2022 Office Visit Ophthalmology Pedro Tinsley DO [address] [place] [address] 11/14/2022 Office Visit Family Medicine Rafa Bergman MD [address] [place] [address] [place] [address] 12/24/2022 Nurse Only Rheumatology [place], Nurse Rheum [address] [place] [phone] 01/04/2023 Hospital Encounter Endoscopy Nahun Hong MD [address] [place] [address] 01/04/2023 Surgery Endoscopy Nahun Hong MD [address] [place] [address] COLONOSCOPY FLEXIBLE PROXIMAL DIAGNOSTIC 02/12/2023 Cardiac Studies Cardiology [facility] [address] [place] [address] 02/22/2023 Office Visit Cardiology Charles Ortega DO [address] [place] [address] 03/06/2023 Office Visit Dermatology Kasey Nieto MD 07/05/2023 Office Visit Rheumatology Deangelo Holley MD [address] [facility], [place] [address] Scheduled Procedures Name Priority Associated Diagnoses Date/Ti me COLONOSCOPY FLEXIBLE PROXIMAL DIAGNOSTIC Recall Colon cancer screening 01/04/2023 9:00 AM EDT Health Maintenance Due Date Last Done Comments DTaP,Tdap,and Td Vaccines (2 - Td or Tdap) 11/02/2017 11/03/2007 COLONOSCOPY-EVERY 5 YRS AGES 18-100 02/27/2022 02/27/2017, 02/27/2017, 10/17/2004 CKD PHOS USE SMARTSET 66109 04/19/202204/01, 11/27/2019, 11/21/2018, Additional history exists COVID-19 [...] Additional history exists CKD HGB USE SMARTSET 52046 04/24/202304/24, 04/24/2022, 03/27/2022, Additional history exists TSH 05/22/2023 05/22/2022, 03/02, 04/19/2021, Additional history exists DXA Scan 07/18/2024 07/18/2022, 12/01, 05/09/2017, Additional history exists Hepatitis B Completed 03/18/2009, 05/30, 05/12/2008 Pneumococcal Vaccine: 65+ Years Completed 03/28/2015, 03/20/2010, 11/15/2004 Zoster Vaccines Completed 06/12/2021, 02/01, 11/04/2012 VITAMIN D LEVEL ONCE IN A LIFETIME-USE SMARTSET# [id number] Completed 11/06/2021, 12/28/2019, 06/24/2017, Additional history exists GARDASIL-HPV IMMUNIZATION SERIES Aged Out No longer eligible based on patient's age to complete this topic MENINGOCOCCAL (MENACTRA/MENVEO) Aged Out No longer eligible based on patient's age to complete this topic documented as of this encounter Medical Devices Implanted Type Area V Block Saw Operator Device Identifier Shelf Expiration Date Model / Serial / Lot Lens Intraoc 21.5 - [id number] - [id number] Implanted:Qty: 1 on 05/12/2019 by Yury Brady MD at OR [facility] Right: Eye [employer]USCH [employer] LOMB 12/30/2023 [id number] / [id number] / [id number] Lens Intraoc 22.5 - [id number] - [id number] Implanted:Qty: 1 on 04/05/2020 by Yury Brady MD at OR [facility] Left: Eye BAUSCH & LOMB 09/28/2024 [id number] / [id number] / [id number] documented as of this encounter Advance Directives Documents on File Type Date Recorded Patient Associate Juvenile Court Judge Expl anation Advance Directives and Living Will 03/11/2018 Krissy Urban ADVANCE DIR ECTIVE Healthcare Agents on File Name Relationship Healthcare Agent Relationship Communication Krissy Ordonez Adult Child Health Care Agen t (per Health Care Power of Blind Cleaner document) Guille Urban Adult Child Health Care Agen t (per Health Care Power of Blind Cleaner document) Care Teams Shrub Planter Relationship Specialty Start Date End Date Rafa Bergman MD [address] [place] [address] [place] [address] PCP - General Family Medicine 04/19/21 documented as of this encounter
--- OUTSIDE RECORDS SUMMARY | 2023-02-24 09:22 | External Medical Summary | Summary of Care ---
Author Name Unknown Organization [facility] Address [address] [place] [address] Phone [phone] Care Team Providers Care Physical Therapy Aid Name Role Phone Rafa Bergman MD Primary Care Provide r Reason for Visit * Reason Onset Date Comments Forms Request 11/08/2022 Encounter Details Date Type Department Care Team Description 11/08/2022 Telephone Family Medicine [address] [place] [address] Rafa Bergman MD [address] [place] [address] [place] [address] Forms Request Allergies Active Allergy Reactions Severity Noted Date Comments Colchicine Diarrhea 06/16/2018 Daptomycin 01/05/2015 Shortness of breath Imipenem Edema airway High 01/05/2015 Metoprolol Low 01/23/2021 Other reaction(s): fatigue Zoledronic Acid 04/24/2012 Myalgias, fever, chills, vomiting x 2 days Sulfa Antibiotics 12/22/2002 Bactrim--itchy all over, eyes swollen documented as of this encounter (statuses as of 11/09/2022) Medications Medication Sig Dispensed Refills Start Date [...] as of this encounter (statuses as of 11/09/2022) Active Problems Problem Noted Date Other pulmonary [...] S/P angioplasty with stent 11/27/2018 Atherosclerosis of [place] ronary artery of [place] heart without angina pectoris 07/08/2018 Arthritis of [...] as of this encounter (statuses as of 11/09/2022) Resolved Problems Problem Noted Date Resolved Date Atherosclerosis of coronary artery of [place] heart without angina pectoris 09/10/2022 10/31/2022 Hypothyroidism [...] cava filter 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 Relayed to pt that these were completed. 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 * Telephone Encounter - Rafa Bergman MD [...] face (minutes): 10 * Telephone Encounter - Yens Ulrich - 11/08/2022 8:17 AM EDT Patient dropped off papers to be filled out for ins. Claim, Please call when done and she will pickup. Forms put in doctor box documented in this encounter Plan of Treatment Upcoming Encounters Date Type Specialty Care Team Description 11/13/2022 Office Visit Ophthalmology Pedro Tinsley, DO [address] [place] [address] 11/14/2022 Office Visit Family Medicine Rafa Bergman MD [address] [place] [address] [place] [address] 12/24/2022 Nurse Only Rheumatology [place], Nurse Rheum [address] [place] [phone] 01/04/2023 Hospital Encounter Endoscopy Nahun Hong MD [address] [place] [address] 01/04/2023 Surgery Endoscopy Nahun Hong MD [address] [place] [address] COLONOSCOPY FLEXIBLE PROXIMAL DIAGNOSTIC 02/12/2023 Cardiac Studies Cardiology [facility], Pacer [facility] [address] [place] [address] 02/22/2023 Office Visit Cardiology Charles Ortega DO [address] [place] [address] 03/06/2023 Office Visit Dermatology Kasey Nieto MD 07/05/2023 Office Visit Rheumatology Deangelo Holley MD [address] [place] [address] Scheduled Procedures Name Priority Associated Diagnoses Date/Ti me COLONOSCOPY FLEXIBLE PROXIMAL DIAGNOSTIC Recall Colon cancer screening 01/04/2023 9:00 AM EDT Health Maintenance Due Date Last Done Comments DTaP,Tdap,and Td Vaccines (2 - Td or Tdap) 11/02/2017 11/03/2007 COLONOSCOPY-EVERY 5 YRS AGES 18-100 02/27/2022 02/27/2017, 02/27/2017, 10/17/2004 CKD PHOS USE SMARTSET 67178 04/19/202204/01, 11/27/2019, 11/21/2018, Additional history exists COVID-19 [...] Additional history exists CKD HGB USE SMARTSET 19196 04/24/202304/24, 04/24/2022, 03/27/2022, Additional history exists TSH 05/22/2023 05/22/2022, 03/02, 04/19/2021, Additional history exists DXA Scan 07/18/2024 07/18/2022, 12/01, 05/09/2017, Additional history exists Hepatitis B Completed 03/18/2009, 05/30, 05/12/2008 Pneumococcal Vaccine: 65+ Years Completed 03/28/2015, 03/20/2010, 11/15/2004 Zoster Vaccines Completed 06/12/2021, 02/01, 11/04/2012 VITAMIN D LEVEL ONCE IN A LIFETIME-USE SMARTSET# 09386 Completed 11/06/2021, 12/28/2019, 06/24/2017, Additional history exists GARDASIL-HPV IMMUNIZATION SERIES Aged Out No longer eligible based on patient's age to complete this topic MENINGOCOCCAL (MENACTRA/MENVEO) Aged Out No longer eligible based on patient's age to complete this topic documented as of this encounter Medical Devices Implanted Type Area Overhead Cleaner Device Identifier Shelf Expiration Date Model / Serial / Lot Lens Intraoc 21.5 - [id number] - [id number] Implanted:Qty: 1 on 05/12/2019 by Yury Brady MD at [facility] Right: Eye [employer]CH [employer] LOMB 12/30/2023 [id number] / [id number] / [id number] Lens Intraoc 22.5 - [id number] - [id number] Implanted:Qty: 1 on 04/05/2020 by Yury Brady MD at OR [facility] Left: Eye BAUSCH & LOMB 09/28/2024 [id number] / [id number] / [id number] documented as of this encounter Advance Directives Documents on File Type Date Recorded Patient Wool Carder Expl anation Advance Directives and Living Will 03/11/2018 Krissy Urban ADVANCE DIR ECTIVE Healthcare Agents on File Name Relationship Healthcare Agent Relationship Communication Krissy Ordonez Adult Child Health Care Agen t (per Health Care Power of Chemical Plant Operator document) Guille Urban Adult Child Health Care Agen t (per Health Care Power of Chemical Plant Operator document) Care Teams Physical Therapy Aid Relationship Specialty Start Date End Date Rafa Bergman MD [address] [place] [address] [place] [phone] PCP - General Family Medicine 04/19/21 documented as of this encounter
--- OUTSIDE RECORDS SUMMARY | 2023-02-24 09:22 | External Medical Summary | Summary of Care ---
Author Name Unknown Organization [facility] [address] [facility] [address] Phone [phone] Care Team Providers Care Machine Shop Lead Man Name Role Phone Rafa Bergman MD Primary Care Provide r Encounter Details Date Type Department Care Team Description 10/24/2022 Result Scan Unspecified Department Charles Ortega O, DO [address] [place], [place] [id number] <No scans attached> Allergies Active Allergy Reactions Severity Noted Date Comments Colchicine Diarrhea 06/16/2018 Daptomycin 01/05/2015 Shortness of breath Imipenem Edema airway High 01/05/2015 Metoprolol Low 01/23/2021 Other reaction(s): fatigue Zoledronic Acid 04/24/2012 Myalgias, fever, chills, vomiting x 2 days Sulfa Antibiotics 12/22/2002 Bactrim--itchy all over, eyes swollen documented as of this encounter (statuses as of 10/24/2022) Medications Medication Sig Dispensed Refills Start Date [...] as of this encounter (statuses as of 10/24/2022) Active Problems Problem Noted Date Other pulmonary embolism with acute cor pulmonale 10/01/2022 S/P placement of cardiac pacemaker 10/01 Medical home patient encounter 3 Tachy-chintan syndrome 09/10/2022 Atherosclerosis of coronary artery of [place] t[place] heart without angina pectoris 09/10/2022 Gastro-esophageal reflux disease with es ophagitis, without bleeding 12/15/2021 Prediabetes 05/15/2021 Overview: Per Prediabetes protocol Chronic kidney disease, stage 3a 12/13/2 021 Overview: Per CKD protocol History of basal cell carcinoma 07/07/19 21 Hypertensive kidney disease with stage 3 a chronic kidney disease 02/08/2020 Overview: Per CKD protocol - Per CKD protocol S/P angioplasty with stent 11/27/2018 Atherosclerosis of [place] co ronary artery of [place] heart without angina pectoris 07/08/2018 Arthritis of [...] as of this encounter (statuses as of 10/24/2022) Resolved Problems Problem Noted Date Resolved Date [...] cava filter 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 07/08/2018 CKD (chronic kidney disease) stage 2, GFR 60-89 ml/min 03/12/2019 documented as of this encounter (statuses as of 10/24/2022) Immunizations Name Administration Dates Next Due COVID-19 [...] Tinsley, DO [address] [place] [address] 11/14/2022 Office Visit Family Medicine Rafa Bergman MD [address] [place] [address] [place] [address] 11/21/2022 Office Visit Cardiology Charles Ortega DO [address] [place] [address] 12/24/2022 Nurse Only Rheumatology [place], Nurse Rheum [address] [place] [phone] 01/04/2023 Hospital Encounter Endoscopy Nahun Hong MD [address] [place] [address] 01/04/2023 Surgery Endoscopy Nahun Hong MD [address] [place] [address] COLONOSCOPY FLEXIBLE PROXIMAL DIAGNOSTIC 02/12/2023 Cardiac Studies Cardiology [place], Pacer [facility] [address] [place] [address] 02/22/2023 Office Visit Cardiology Charles Ortega DO [address] [place] [address] 03/06/2023 Office Visit Dermatology Kasey Nieto MD 07/05/2023 Office Visit Rheumatology Deangelo Holley MD [address] [place] [address], [place] [address] Scheduled Procedures Name Priority Associated Diagnoses Date/Ti me COLONOSCOPY FLEXIBLE PROXIMAL DIAGNOSTIC Recall Colon cancer screening 01/04/2023 9:00 AM EDT Health Maintenance Due Date Last Done Comments DTaP,Tdap,and Td Vaccines (2 - Td or Tdap) 11/02/2017 11/03/2007 COLONOSCOPY-EVERY 5 YRS AGES 18-100 02/27/2022 02/27/2017, 02/27/2017, 10/17/2004 CKD PHOS USE SMARTSET 69297 04/19/202204/01, 11/27/2019, 11/21/2018, Additional history exists COVID-19 [...] Additional history exists CKD HGB USE SMARTSET 43891 04/24/202304/24, 04/24/2022, 03/27/2022, Additional history exists TSH 05/22/2023 05/22/2022, 03/02, 04/19/2021, Additional history exists DXA Scan 07/18/2024 07/18/2022, 12/01, 05/09/2017, Additional history exists Hepatitis B Completed 03/18/2009, 05/30, 05/12/2008 Pneumococcal Vaccine: 65+ Years Completed 03/28/2015, 03/20/2010, 11/15/2004 Zoster Vaccines Completed 06/12/2021, 02/01, 11/04/2012 VITAMIN D LEVEL ONCE IN A LIFETIME-USE SMARTSET# 71092 Completed 11/06/2021, 12/28/2019, 06/24/2017, Additional history exists GARDASIL-HPV IMMUNIZATION SERIES Aged Out No longer eligible based on patient's age to complete this topic MENINGOCOCCAL (MENACTRA/MENVEO) Aged Out No longer eligible based on patient's age to complete this topic documented as of this encounter Medical Devices Implanted Type Area Lawn Specialist Device Identifier Shelf Expiration Date Model / Serial / Lot Lens Intraoc 21.5 - [id number] - [id number] Implanted:Qty: 1 on 05/12/2019 by Yury Brady MD at OR [facility] Right: Eye [employer]CH [employer] LOMB 12/30/2023 [id number] / [id number] / [id number] Lens Intraoc 22.5 - [id number] - [id number] Implanted:Qty: 1 on 04/05/2020 by Yury Brady MD at OR [facility] Left: Eye BAUSCH [employer] LOMB 09/28/2024 [id number] / [id number] / [id number] documented as of this encounter Procedures Procedure Name Priority Date/Time Associated Diagnosis Comments CARDIOLOGY SCANNED RESULT 10/24/2022 documented in this encounter Results * CARDIOLOGY SCANNED RESULT (10/24/2022) 10/24/2022 Charles Ortega DO OTHER documented in this encounter Advance Directives Documents on File Type Date Recorded Patient Rn Integrity Expl anation Advance Directives and Living Will 03/11/2018 Krissy Urban ADVANCE DIR ECTIVE Healthcare Agents on File Name Relationship Healthcare Agent Relationship Communication Krissy Ordonez Adult Child Health Care Agen t (per Health Care Power of Marketing Producer document) Guille Urban Adult Child Health Care Agen t (per Health Care Power of Marketing Producer document) Care Teams Machine Shop Lead Man Relationship Specialty Start Date End Date Rafa Bergman MD [address] [place] [address] [place] [address] PCP - General Family Medicine 04/19/21 documented as of this encounter
--- OUTSIDE RECORDS SUMMARY | 2023-02-24 09:22 | External Medical Summary | Summary of Care ---
Author Name Unknown Organization [facility] Address [address] [facility] [place] [address] Phone [phone] Care Team Providers Care Renewal Specialist Name Role Phone Rafa Alonso MD Primary Care Provide r Reason for Visit * Reason Comments eRx-Medication Refill Encounter Details Date Type Department Care Team Description 10/30/2022 Refill Family Medicine [address] [place] [address] Rafa Alonso MD [address] [place] [address] [place] [address] Allergies Active Allergy Reactions Severity Noted Date Comments Colchicine Diarrhea 06/16/2018 Daptomycin 01/05/2015 Shortness of breath Imipenem Edema airway High 01/05/2015 Metoprolol Low 01/23/2021 Other reaction(s): fatigue Zoledronic Acid 04/24/2012 Myalgias, fever, chills, vomiting x 2 days Sulfa Antibiotics 12/22/2002 Bactrim--itchy all over, eyes swollen documented as of this encounter (statuses as of 10/31/2022) Medications Medication Sig Dispensed Refills Start Date [...] for Nausea. 30 Tablet 0 3 Active predniSONE 20 MG Oral Tablet (Deltasone) Take 1 Tablet by mouth in the morning. Patient using refills from former script for PCP for as needed gout flares. 0 Active Saccharomyces boulardii 250 MG Oral Packet Take 250 mg by mouth daily. 0 3 Active AZO Bladder Control/Go-Less Oral Capsule Take 300 mg by mouth every morning. 0 Active predniSONE 5 MG Oral Tablet (Deltasone) one pill each day 30 Tablet 2 3 Active dilTIAZem HCl ER 360 MG Oral Tablet Extended Release 24 Hour TAKE ONE TABLET BY MOUTH EVERY DAY 90 Tablet 3 3 Active dilTIAZem HCl ER Coated Beads 360 MG Oral Tablet Extended Release 24 Hour TAKE ONE TABLET BY MOUTH EVERY DAY 90 Tablet 1 3 11/01/19 23 Discontinued Hospital, Clinic, or Other Facility [...] as of this encounter (statuses as of 10/31/2022) Active Problems Problem Noted Date Other pulmonary [...] S/P angioplasty with stent 11/27/2018 Atherosclerosis of [place] co ronary artery of [place] heart without angina pectoris 07/08/2018 Arthritis of [...] as of this encounter (statuses as of 10/31/2022) Resolved Problems Problem Noted Date Resolved Date [...] cava filter 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 07/08/2018 CKD (chronic kidney disease) stage 2, GFR 60-89 ml/min 03/12/2019 documented as of this encounter (statuses as of 10/31/2022) Immunizations Name Administration Dates Next Due COVID-19 [...] encounter Miscellaneous Notes * Telephone Encounter - Parish Watson, [facility] - 10/31/2022 3:06 PM EDT Signed Prescriptions: Disp Refills dilTIAZem HCl ER 360 MG Oral Tablet Extend*90 Tab*3 Sig: TAKE ONE TABLET BY MOUTH EVERY DAYAuthorizing Provider: Aziza ALONSO User: PARISH WATSON documented in this encounter Plan of Treatment Upcoming Encounters Date Type Specialty Care Team Description 11/13/2022 Office Visit Ophthalmology Pedro Tinsley DO [address] [place] [address] 11/14/2022 Office Visit Family Medicine Rafa Alonso MD [address] [place] [address] [place] [address] 11/21/2022 Office Visit Cardiology Charles Ortega DO [address] [place] [address] 12/24/2022 Nurse Only Rheumatology [place], Nurse Rheum [address] [place] [phone] 01/04/2023 Hospital Encounter Endoscopy Nahun Hong MD [address] [place] [address] 01/04/2023 Surgery Endoscopy Nahun Hong MD [address] [place] [address] COLONOSCOPY FLEXIBLE PROXIMAL DIAGNOSTIC 02/12/2023 Cardiac Studies Cardiology Cad[facility] [address] [place] [address] 02/22/2023 Office Visit Cardiology Charles Ortega DO [address] [place] [address] 03/06/2023 Office Visit Dermatology Kasey Nieto MD 07/05/2023 Office Visit Rheumatology Deangelo Holley MD [address] [employer] [facility] [place] [address] Scheduled Procedures Name Priority Associated Diagnoses Date/Ti me COLONOSCOPY FLEXIBLE PROXIMAL DIAGNOSTIC Recall Colon cancer screening 01/04/2023 9:00 AM EDT Health Maintenance Due Date Last Done Comments DTaP,Tdap,and Td Vaccines (2 - Td or Tdap) 11/02/2017 11/03/2007 COLONOSCOPY-EVERY 5 YRS AGES 18-100 02/27/2022 02/27/2017, 02/27/2017, 10/17/2004 CKD PHOS USE SMARTSET 28988 04/19/202204/01, 11/27/2019, 11/21/2018, Additional history exists COVID-19 [...] Additional history exists CKD HGB USE SMARTSET 74666 04/24/202304/24, 04/24/2022, 03/27/2022, Additional history exists TSH 05/22/2023 05/22/2022, 03/02, 04/19/2021, Additional history exists DXA Scan 07/18/2024 07/18/2022, 12/01, 05/09/2017, Additional history exists Hepatitis B Completed 03/18/2009, 05/30, 05/12/2008 Pneumococcal Vaccine: 65+ Years Completed 03/28/2015, 03/20/2010, 11/15/2004 Zoster Vaccines Completed 06/12/2021, 02/01, 11/04/2012 VITAMIN D LEVEL ONCE IN A LIFETIME-USE SMARTSET# [id number] Completed 11/06/2021, 12/28/2019, 06/24/2017, Additional history exists GARDASIL-HPV IMMUNIZATION SERIES Aged Out No longer eligible based on patient's age to complete this topic MENINGOCOCCAL (MENACTRA/MENVEO) Aged Out No longer eligible based on patient's age to complete this topic documented as of this encounter Medical Devices Implanted Type Area Microsoft Exchange Architect Device Identifier Shelf Expiration Date Model / Serial / Lot Lens Intraoc 21.5 - [id number] - [id number] Implanted:Qty: 1 on 05/12/2019 by Yury Brady MD at OR [facility] Right: Eye [employer]CH [employer] LOMB 12/30/2023 [id number] / [id number] / [id number] Lens Intraoc 22.5 - [id number] - [id number] Implanted:Qty: 1 on 04/05/2020 by Yury Brady MD at OR [facility] Left: Eye BAUSCH & LOMB 09/28/2024 [id number] / [id number] / [id number] documented as of this encounter Advance Directives Documents on File Type Date Recorded Patient Seismic Survey Assistant Expl anation Advance Directives and Living Will 03/11/2018 Krissy Urban ADVANCE DIR ECTIVE Healthcare Agents on File Name Relationship Healthcare Agent Relationship Communication Krissy Ordonez Adult Child Health Care Agen t (per Health Care Power of Automotive Product Engineer document) Guille Urban Adult Child Health Care Bon t (per Health Care Power of Automotive Product Engineer document) Care Teams Renewal Specialist Relationship Specialty Start Date End Date Rafa Alonos MD [address] [place] [address] [place] [address] PCP - General Family Medicine 04/19/21 documented as of this encounter
--- OUTSIDE RECORDS SUMMARY | 2023-02-24 09:22 | External Medical Summary | Summary of Care ---
Author Name Unknown Organization [facility] Address [address] [place] [address] Phone [phone] Care Team Providers Care Founder And President Name Role Phone Rafa Bergman MD Primary Care Provide r Reason for Visit * Reason Onset Date Comments case management 10/16/2022 Encounter Details Date Type Department Care Team Description 10/16/2022 Cable Former Telephone Family Medicine [address] [phone] Marbella Gandhi, RN [address] [place] [address] case management Allergies Active Allergy Reactions Severity Noted Date Comments Colchicine Diarrhea 06/16/2018 Daptomycin 01/05/2015 Shortness of breath Imipenem Edema airway High 01/05/2015 Metoprolol Low 01/23/2021 Other reaction(s): fatigue Zoledronic Acid 04/24/2012 Myalgias, fever, chills, vomiting x 2 days Sulfa Antibiotics 12/22/2002 Bactrim--itchy all over, eyes swollen documented as of this encounter (statuses as of 10/25/2022) Medications Medication Sig Dispensed Refills Start Date [...] as of this encounter (statuses as of 10/25/2022) Active Problems Problem Noted Date Other pulmonary [...] S/P angioplasty with stent 11/27/2018 Atherosclerosis of [place] co ronary artery of [place] heart without angina pectoris 07/08/2018 Arthritis of [...] as of this encounter (statuses as of 10/25/2022) Resolved Problems Problem Noted Date Resolved Date [...] cava filter 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 * Telephone Encounter - Marbella Gandhi RN - 10/16/2022 3:54 PM EDT Patient discussed in Medical Home meeting today, due to readmission. Those present: Regional Continuous Linter Drier Operator, Medical Home Cable Former, Providers, Nursing Print Color Operator, [employer] Partnerships, [place] nurse, Bmw Sales Consultant, Community Health Special Needs Caregiver, [place] pharmacist. No interventions noted, that could have been taken to prevent readmission. It was recommended, that if patient has an ER visit or another admission - refer to [facility]. Team agreeable with plan. documented in this encounter Plan of Treatment Upcoming Encounters Date Type Specialty Care Team Description 11/13/2022 Office Visit Ophthalmology Pedro Tinsley, DO [address] [place] [address] 11/14/2022 Office Visit Family Medicine Rafa Bergman MD [address] [place] [address] [place] [address] 11/21/2022 Office Visit Cardiology Charles Ortega DO [address] [place] [address] 12/24/2022 Nurse Only Rheumatology [place], Nurse Rheum [address] [place] [phone] 01/04/2023 Hospital Encounter Endoscopy Nahun Hong MD [address] [place] [address] 01/04/2023 Surgery Endoscopy Nahun Hong MD [address] [place] [address] COLONOSCOPY FLEXIBLE PROXIMAL DIAGNOSTIC 02/12/2023 Cardiac Studies Cardiology Cad[facility] [address] [place] [address] 02/22/2023 Office Visit Cardiology Charles Ortega DO [address] [place] [address] 03/06/2023 Office Visit Dermatology Kasey Nieto MD 07/05/2023 Office Visit Rheumatology Deangelo Holley MD [address] [facility], [place] [address] Scheduled Procedures Name Priority Associated Diagnoses Date/Ti me COLONOSCOPY FLEXIBLE PROXIMAL DIAGNOSTIC Recall Colon cancer screening 01/04/2023 9:00 AM EDT Health Maintenance Due Date Last Done Comments DTaP,Tdap,and Td Vaccines (2 - Td or Tdap) 11/02/2017 11/03/2007 COLONOSCOPY-EVERY 5 YRS AGES 18-100 02/27/2022 02/27/2017, 02/27/2017, 10/17/2004 CKD PHOS USE SMARTSET 39900 04/19/202204/01, 11/27/2019, 11/21/2018, Additional history exists COVID-19 [...] Additional history exists CKD HGB USE SMARTSET 05385 04/24/202304/24, 04/24/2022, 03/27/2022, Additional history exists TSH 05/22/2023 05/22/2022, 03/02, 04/19/2021, Additional history exists DXA Scan 07/18/2024 07/18/2022, 12/01, 05/09/2017, Additional history exists Hepatitis B Completed 03/18/2009, 05/30, 05/12/2008 Pneumococcal Vaccine: 65+ Years Completed 03/28/2015, 03/20/2010, 11/15/2004 Zoster Vaccines Completed 06/12/2021, 02/01, 11/04/2012 VITAMIN D LEVEL ONCE IN A LIFETIME-USE SMARTSET# 55474 Completed 11/06/2021, 12/28/2019, 06/24/2017, Additional history exists GARDASIL-HPV IMMUNIZATION SERIES Aged Out No longer eligible based on patient's age to complete this topic MENINGOCOCCAL (MENACTRA/MENVEO) Aged Out No longer eligible based on patient's age to complete this topic documented as of this encounter Medical Devices Implanted Type Area Ndt Inspector Device Identifier Shelf Expiration Date Model / Serial / Lot Lens Intraoc 21.5 - [id number] - [id number] Implanted:Qty: 1 on 05/12/2019 by Yury Brady MD at OR [facility] Right: Eye [employer]CH [employer] LOMB 12/30/2023 [id number] / [id number] / [id number] Lens Intraoc 22.5 - [id number] - [id number] Implanted:Qty: 1 on 04/05/2020 by Yury Brady MD at OR [facility] Left: Eye BAUSCH [employer] LOMB 09/28/2024 [id number] / [id number] / [id number] documented as of this encounter Advance Directives Documents on File Type Date Recorded Patient Pin Cleaner Expl anation Advance Directives and Living Will 03/11/2018 Krissyva Urban ADVANCE DIR ECTIVE Healthcare Agents on File Name Relationship Healthcare Agent Relationship Communication Krissy José Luis Adult Child Health Care Agen t (per Health Care Power of Liability Claims Examiner document) Guille Urban Adult Child Health Care Agen t (per Health Care Power of Liability Claims Examiner document) Care Teams Founder And President Relationship Specialty Start Date End Date Rafa Bergman MD [address] [place] [address] [place] [phone] PCP - General Family Medicine 04/19/21 documented as of this encounter
--- OUTSIDE RECORDS SUMMARY | 2023-02-24 09:22 | External Medical Summary | Summary of Care ---
Author Name Unknown Organization [facility] Address [address] [facility] 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)*; Acute on chronic respiratory failure with hypoxemia (HCC) Allergies Active Allergy Reactions Severity Noted Date Comments Colchicine Diarrhea 06/16/2018 Daptomycin 01/05/2015 Shortness of breath Imipenem Edema airway High 01/05/2015 Metoprolol Low 01/23/2021 Other reaction(s): fatigue Zoledronic Acid 04/24/2012 Myalgias, fever, chills, vomiting x 2 days Sulfa Antibiotics 12/22/2002 Bactrim--itchy all over, eyes swollen documented as of this encounter (statuses as of 11/05/2022) Medications Medication Sig Dispensed Refills Start Date [...] as of this encounter (statuses as of 11/05/2022) Active Problems Problem Noted Date Other pulmonary [...] with stent 11/27/2018 Atherosclerosis of [place] co ronary artery of [place] heart without angina pectoris 07/08/2018 Arthritis of [...] as of this encounter (statuses as of 11/05/2022) Resolved Problems Problem Noted Date Resolved Date Atherosclerosis of coronary artery of [place] heart without angina pectoris 09/10/2022 10/31/2022 Hypothyroidism [...] cava filter 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 No answer. Left detailed message on voice mail explainingCHA role/reason for call. No call back. Electronically signed by Beverly Chamorro [facility] [employer] Director at 11/05/2022 10:33 AM EDT documented in this encounter Plan of Treatment Upcoming Encounters Date Type Specialty Care Team Description 11/13/2022 Office Visit Ophthalmology Pedro Tinsley DO [address] [place] [address] 11/14/2022 Office Visit Family Medicine Rafa Bergman MD [address] [place] [address] [place] [address] 11/21/2022 Office Visit Cardiology Charles Ortega DO [address] [place] [address] 12/24/2022 Nurse Only Rheumatology [place], Nurse [address] [place] [phone] 01/04/2023 Hospital Encounter Endoscopy Nahun Hong MD [address] [place] [address] 01/04/2023 Surgery Endoscopy Nahun Hong MD [address] [place] [address] COLONOSCOPY FLEXIBLE PROXIMAL DIAGNOSTIC 02/12/2023 Cardiac Studies [facility]iology [facility] [address] [place] [address] 02/22/2023 Office Visit Cardiology Charles Ortega DO [address] [place] [address] 03/06/2023 Office Visit Dermatology Kasey Nieto MD 07/05/2023 Office Visit Rheumatology Deangelo Holley MD [address] [place], [place] [address] [address] Scheduled Procedures Name Priority Associated Diagnoses Date/Ti me COLONOSCOPY FLEXIBLE PROXIMAL DIAGNOSTIC Recall Colon cancer screening 01/04/2023 9:00 AM EDT Health Maintenance Due Date Last Done Comments DTaP,Tdap,and Td Vaccines (2 - Td or Tdap) 11/02/2017 11/03/2007 COLONOSCOPY-EVERY 5 YRS AGES 18-100 02/27/2022 02/27/2017, 02/27/2017, 10/17/2004 CKD PHOS USE SMARTSET 80439 04/19/202204/01, 11/27/2019, 11/21/2018, Additional history exists COVID-19 [...] Additional history exists CKD HGB USE SMARTSET 38022 04/24/202304/24, 04/24/2022, 03/27/2022, Additional history exists TSH 05/22/2023 05/22/2022, 03/02, 04/19/2021, Additional history exists DXA Scan 07/18/2024 07/18/2022, 12/01, 05/09/2017, Additional history exists Hepatitis B Completed 03/18/2009, 05/30, 05/12/2008 Pneumococcal Vaccine: 65+ Years Completed 03/28/2015, 03/20/2010, 11/15/2004 Zoster Vaccines Completed 06/12/2021, 02/01, 11/04/2012 VITAMIN D LEVEL ONCE IN A LIFETIME-USE SMARTSET# 30204 Completed 11/06/2021, 12/28/2019, 06/24/2017, Additional history exists GARDASIL-HPV IMMUNIZATION SERIES Aged Out No longer eligible based on patient's age to complete this topic MENINGOCOCCAL (MENACTRA/MENVEO) Aged Out No longer eligible based on patient's age to complete this topic documented as of this encounter Medical Devices Implanted Type Area Inside Sales Trainer Device Identifier Shelf Expiration Date Model / Serial / Lot Lens Intraoc 21.5 - [id number] - [id number] Implanted:Qty: 1 on 05/12/2019 by Yury Brady MD at OR [facility] Right: Eye [employer] 12/30/2023 [id number] / [id number] / [id number] Lens Intraoc 22.5 - [id number] - [id number] Implanted:Qty: 1 on 04/05/2020 by Yury Brady MD at OR [facility] Left: Eye BAUSCH [employer] LOMB 09/28/2024 [id number] / [id number] / [id number] documented as of this encounter Visit Diagnoses Diagnosis 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)- Primary Acute on chronic respiratory failure with hypoxemia (HCC) Colon cancer screening Special screening for malignant neoplasms, colon documented in this encounter Advance Directives Documents on File Type Date Recorded Patient Expedition Supervisor Expl anation Advance Directives and Living Will 03/11/2018 rKissy Urban ADVANCE DIR ECTIVE Healthcare Agents on File Name Relationship Healthcare Agent Relationship Communication Krissy Ordonez Adult Child Health Care Agen t (per Health Care Power of Sub Assembly Team Worker document) Guille Urban Adult Child Health Care Agen t (per Health Care Power of Sub Assembly Team Worker document) Care Teams Chief Building Inspector Relationship Specialty Start Date End Date Rafa Bergman MD [address] [place] [address] [place] [address] PCP - General Family Medicine 04/19/21 documented as of this encounter
--- OUTSIDE RECORDS SUMMARY | 2023-02-24 09:23 | External Medical Summary ---
Author Name Unknown Address Unknown Organization K01:[facility] [place] [address] [place] [address] Laboratory Report Ordering Provider Test Date Status LEE ANN COLEMAN 10/03/2022 12:30:36 Final Observation Date Value Abnormality Reference (Units ) Status Uric Acid 10/03/2022 12:30:36 3.3 2.4-5.7 (m g/dL) Final Performing Location LAB[facility]ATORY [facility] - [address] [place] [address]
--- OUTSIDE RECORDS SUMMARY | 2023-02-24 09:23 | External Medical Summary | Summary of Care ---
Author Name Unknown Organization [facility] [address] [facility] [address] Phone [phone] Care Team Providers Care Shaping Machine Tender Name Role Phone Rafa Alonso MD Primary Care Provide r Reason for Visit * Reason Comments eRx-Medication Refill Encounter Details Date Type Department Care Team Description 09/27/2022 Refill Family Medicine [address] [place] [phone] Rafa Alonso MD [address] [place] [address] [place] [address] Allergies Active Allergy Reactions Severity Noted Date Comments Colchicine Diarrhea 06/16/2018 Daptomycin 01/05/2015 Shortness of breath Imipenem Edema airway High 01/05/2015 Metoprolol Low 01/23/2021 Other reaction(s): fatigue Zoledronic Acid 04/24/2012 Myalgias, fever, chills, vomiting x 2 days Sulfa Antibiotics 12/22/2002 Bactrim--itchy all over, eyes swollen documented as of this encounter (statuses as of 09/28/2022) Medications Medication Sig Dispensed Refills Start Date End Date Status VITAMIN D 1000 UNITS PO CAPS Take by mouth daily. 0 Active ASPIRIN 81 MG PO TABS Take by mouth at bedtime. 0 Active Lactobacillus (FLORANEX) TABS CHEW AND SWALLOW ONE TABLET BY MOUTH ONCE DAILY 30 Tab 5 6 Active Additional Information Patient taking differently: HS, Reported on 03/23/2020 fluticasone (FLONASE) 50 MCG/ACT nasal spray Administer [...] Oral Capsule Take by mouth. 0 Active Amoxicillin 500 MG Oral Capsule (Amoxil) Take 1 Capsule by mouth as needed. 0 1 Active Diclofenac Sodium 1 % External Gel [...] other meds) 90 Tablet 3 2 Active dilTIAZem HCl ER Coated Beads 360 MG Oral Tablet Extended Release 24 Hour TAKE ONE TABLET BY MOUTH EVERY DAY 90 Tablet 1 3 Active Rosuvastatin Calcium 5 MG Oral Tablet [...] EVERY MORNING 90 Tablet 1 3 Active Allopurinol 300 MG Oral Tablet (Zyloprim) take 1 and 1/2 tablets daily 135 Tablet 1 3 Active Famotidine 20 MG Oral Tablet (Pepcid)Indicatio ns:Abdominal pain, epigastric,Nausea take 1 tablet in the morning and 1 tablet before bedtime 180 Tablet 1 3 Active Amoxicillin-Pot Clavulanate 875-125 MG Oral Tablet (Augmentin)Indica tions:Diverticuli tis of colon Take 1 Tablet by mouth in the morning and 1 Tablet before bedtime. Do all this for 7 days. 14 Tablet 0 3 09/30/19 23 Active Eliquis 5 MG Oral Tablet (Apixaban) TAKE ONE TABLET BY MOUTH TWICE DAILY 180 Tablet 1 3 Active Apixaban 5 MG Oral Tablet (Eliquis) 1 Tablet. 0 3 09/29/19 23 Discontinued Hospital, Clinic, or Other Facility [...] as of this encounter (statuses as of 09/28/2022) Active Problems Problem Noted Date Medical home patient encounter 3 Tachy-chintan syndrome [...] as of this encounter (statuses as of 09/28/2022) Resolved Problems Problem Noted Date Resolved Date [...] as of this encounter (statuses as of 09/28/2022) Immunizations Name Administration Dates Next Due COVID-19 [...] Miscellaneous Notes * Telephone Encounter - Rafa Alonso MD - 09/28/2022 9:55 AM EDT Signed Prescriptions: Disp Refills Eliquis 5 MG Oral Tablet (Apixaban) 180 Ta*1 Sig: TAKE ONE TABLET BY MOUTH TWICE DAILYAuthorizing Provider: Aziza ALONSO User: MORA HOLLOWAY MA * Telephone Encounter - Mora Holloway [facility] - 09/28/2022 9:51 AM EDTSigned Prescriptions: Disp Refills Eliquis 5 MG Oral Tablet (Apixaban) 180 Ta*1 Sig: TAKE ONE TABLET BY MOUTH TWICE DAILYAuthorizing Provider: Aziza ALONSO User: MORA HOLLOWAY IE * Telephone Encounter - Camila Johnson LPN - 09/28/2022 9:43 AM EDTPending Prescriptions: Disp Refills Eliquis 5 MG Oral Tablet (Apixaban) 180 Ta*1 Sig: TAKE ONE TABLET BY MOUTH TWICE DAILY * Telephone Encounter - Sky Burrows, inspector tubes - 09/28/2022 9:00 AM EDT Medication(s) is/are listed as "Historical". Pt confirmed the current dosage, directions, and qty that they are normally prescribed, as reflected in the pending order below. This is also indicated from encounter on 09/10/2022. Confirmed patient has been seen within the last year.. Please review and approve if appropriate. Pending Prescriptions: Disp Refills Eliquis 5 MG Oral Tablet (Apixaban) [Phar*74 Tab*0 Sig: TAKE ONE TABLET BY MOUTH TWICE DAILY Last Visit: 09/10/2022 (in office), Visit date not found (telemedicine) Next Visit: 11/14/2022 If no future appointments scheduled, and last appointment is greater than a year ago, please schedule patient for a follow-up appointment Last date the medication was ordered: Historical Patient Phone Numbers Labs: Lab Results Component [...] 09:15 AM HGBA1C 5.7 08/27/2008 04:40 PM documented in this encounter Plan of Treatment Upcoming Encounters Date Type Specialty Care Team Description 10/10/2022 Hospital Encounter Endoscopy Eleni Phipps MD [address] [address] [place] [address] 10/10/2022 Surgery Endoscopy Eleni Phipps MD [address] [place] [address] [place] [address] COLONOSCOPY FLEXIBLE PROXIMAL DIAGNOSTIC 11/13/2022 Office Visit Ophthalmology Pedro Tinsley, DO [address] [place] [address] 11/14/2022 Office Visit Family Medicine Rafa Alonso MD [address] [place] [address] [place] [address] 11/21/2022 Office Visit Cardiology Charles Ortega, DO [address] [place] [address] 12/24/2022 Nurse Only Rheumatology [place], Nurse [address] [place] [phone] 02/12/2023 Cardiac Studies Cardiology [facility], Pac[facility] [address] [place] [address] 02/22/2023 Office Visit Cardiology Charles Ortega DO [address] [place] [address] 03/06/2023 Office Visit Dermatology Kasey Nieto MD 07/05/2023 Office Visit Rheumatology Deangelo Holley MD [address] [place] [address], [place] [address] Scheduled Procedures Name Priority Associated Diagnoses Date/Ti me COLONOSCOPY FLEXIBLE PROXIMAL DIAGNOSTIC Recall Colon cancer screening 10/10/2022 9:00 AM EDT Health Maintenance Due Date Last Done Comments DTaP,Tdap,and Td Vaccines (2 - Td or Tdap) 11/02/2017 11/03/2007 COLONOSCOPY-EVERY 5 YRS AGES 18-100 02/27/2022 02/27/2017, 02/27/2017, 10/17/2004 CKD PHOS USE SMARTSET 14592 04/19/202204/01, 11/27/2019, 11/21/2018, Additional history exists COVID-19 Vaccine (7 - Moderna series) 06/05/2022 02/05/2022, 08/02/2021, 02/28/2021, Additional history exists Depression Screening, Annual for Pts 12 and Over 07/17/2022 07/17/2021 GFR 09/25/2022 03/27/2022, 03/02, 10/18/2021, Additional history exists Albumin/Creatinine Ratio 03/21/2023 022, 04/19/2021, 12/31/2017, Additional history exists HbA1c 03/21/2023 03/21/2022, 04/01, 10/06/2020, Additional history exists CKD HGB USE SMARTSET 73962 04/24/202304/24, 04/24/2022, 03/27/2022, Additional history exists TSH 05/22/2023 05/22/2022, 03/02, 04/19/2021, Additional history exists DXA Scan 07/18/2024 07/18/2022, 12/01, 05/09/2017, Additional history exists Hepatitis B Completed 03/18/2009, 05/30, 05/12/2008 Pneumococcal Vaccine: 65+ Years Completed 03/28/2015, 03/20/2010, 11/15/2004 Zoster Vaccines Completed 06/12/2021, 02/01, 11/04/2012 VITAMIN D LEVEL ONCE IN A LIFETIME-USE SMARTSET# [id number] Completed 11/06/2021, 12/28/2019, 06/24/2017, Additional history exists Influenza Vaccine (FLU shot) Completed 04/2021, 12/28/2020, 12/31/2019, Additional history exists GARDASIL-HPV IMMUNIZATION SERIES Aged Out No longer eligible based on patient's age to complete this topic MENINGOCOCCAL (MENACTRA/MENVEO) Aged Out No longer eligible based on patient's age to complete this topic documented as of this encounter Medical Devices Implanted Type Area Parachute Taper Device Identifier Shelf Expiration Date Model / Serial / Lot Lens Intraoc 21.5 - [id number] - [id number] Implanted:Qty: 1 on 05/12/2019 by Yury Brady MD at OR [facility] Right: Eye [employer] 12/30/2023 [id number] / [id number] / [id number] Lens Intraoc 22.5 - [id number] - [id number] Implanted:Qty: 1 on 04/05/2020 by Yury Brady MD at OR [facility] Left: Eye [employer]OM[employer] 09/28/2024 [id number] / [id number] / [id number] documented as of this encounter Advance Directives Documents on File Type Date Recorded Patient Director Of Exhibits Expl anation Advance Directives and Living Will 03/11/2018 Krissy Urban ADVANCE DIR ECTIVE Healthcare Agents on File Name Relationship Healthcare Agent Relationship Communication Krissy Ordonez Adult Child Health Care Agen t (per Health Care Power of Prosthodontist document) Guille Urban Adult Child Health Care Agen t (per Health Care Power of Prosthodontist document) Care Teams Shaping Machine Tender Relationship Specialty Start Date End Date Rafa Alonso MD [address] [place] [address] [place] [address] PCP - General Family Medicine 04/19/21 documented as of this encounter
--- OUTSIDE RECORDS SUMMARY | 2023-02-24 09:23 | External Medical Summary | Summary of Care ---
Author Name Unknown Organization [facility] Address [address] [place] [address] Phone [phone] Care Team Providers Care Machine Stone Polisher Name Role Phone Rafa Bergman MD Primary Care Provide r Reason for Visit * Reason Onset Date Comments case management 10/16/2022 Encounter Details Date Type Department Care Team Description 10/16/2022 Pocket Marker Telephone Family Medicine [address] [phone] Marbella Gandhi, RN [address] [place] [address] case management Allergies Active Allergy Reactions Severity Noted Date Comments Colchicine Diarrhea 06/16/2018 Daptomycin 01/05/2015 Shortness of breath Imipenem Edema airway High 01/05/2015 Metoprolol Low 01/23/2021 Other reaction(s): fatigue Zoledronic Acid 04/24/2012 Myalgias, fever, chills, vomiting x 2 days Sulfa Antibiotics 12/22/2002 Bactrim--itchy all over, eyes swollen documented as of this encounter (statuses as of 10/16/2022) Medications Medication Sig Dispensed Refills Start Date [...] as of this encounter (statuses as of 10/16/2022) Active Problems Problem Noted Date Other pulmonary [...] angioplasty with stent 11/27/2018 Atherosclerosis of [place] co ronary artery of [place] heart without angina pectoris 07/08/2018 Arthritis of [...] as of this encounter (statuses as of 10/16/2022) Resolved Problems Problem Noted Date Resolved Date [...] cava filter 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 Those present: Regional Director Of Institutional Research, Medical Home Pocket Marker, Providers, Nursing Cosmetics Presser, Stevedoring Superintendent, [place] nurse, Rn Rehab, Community Health Hand Icer, [facility] pharmacist. No interventions noted, that could have been taken to prevent readmission. It was recommended, that if patient has an ER visit or another admission - refer to [facility]. Team agreeable with plan. documented in this encounter Plan of Treatment Upcoming Encounters Date Type Specialty Care Team Description 11/13/2022 Office Visit Ophthalmology Pedro Tinsley, DO [address] [place] [address] 11/14/2022 Office Visit Family Medicine Rafa Bergman MD [address] [place] [address] [place] [address] 11/21/2022 Office Visit Cardiology Charles Ortega DO [address] [place] [address] 12/24/2022 Nurse Only Rheumatology [place], Nurse [address] [place] [phone] 01/04/2023 Hospital Encounter Endoscopy Nahun Hong MD [address] [place] [address] 01/04/2023 Surgery Endoscopy Nahun Hong MD [address] [place] [address] COLONOSCOPY FLEXIBLE PROXIMAL DIAGNOSTIC 02/12/2023 Cardiac Studies Cardiology Cadence Horne [facility] [address] [place] [address] 02/22/2023 Office Visit Cardiology Charles Ortega DO [address] [place] [address] 03/06/2023 Office Visit Dermatology Kasey Nieto MD 07/05/2023 Office Visit Rheumatology Deangelo Holley MD [address] [place] [address] Scheduled Procedures Name Priority Associated Diagnoses Date/Ti me COLONOSCOPY FLEXIBLE PROXIMAL DIAGNOSTIC Recall Colon cancer screening 01/04/2023 9:00 AM EDT Health Maintenance Due Date Last Done Comments DTaP,Tdap,and Td Vaccines (2 - Td or Tdap) 11/02/2017 11/03/2007 COLONOSCOPY-EVERY 5 YRS AGES 18-100 02/27/2022 02/27/2017, 02/27/2017, 10/17/2004 CKD PHOS USE SMARTSET 19611 04/19/202204/01, 11/27/2019, 11/21/2018, Additional history exists COVID-19 [...] Additional history exists CKD HGB USE SMARTSET 58602 04/24/202304/24, 04/24/2022, 03/27/2022, Additional history exists TSH 05/22/2023 05/22/2022, 03/02, 04/19/2021, Additional history exists DXA Scan 07/18/2024 07/18/2022, 12/01, 05/09/2017, Additional history exists Hepatitis B Completed 03/18/2009, 05/30, 05/12/2008 Pneumococcal Vaccine: 65+ Years Completed 03/28/2015, 03/20/2010, 11/15/2004 Zoster Vaccines Completed 06/12/2021, 02/01, 11/04/2012 VITAMIN D LEVEL ONCE IN A LIFETIME-USE SMARTSET# [id number] Completed 11/06/2021, 12/28/2019, 06/24/2017, Additional history exists GARDASIL-HPV IMMUNIZATION SERIES Aged Out No longer eligible based on patient's age to complete this topic MENINGOCOCCAL (MENACTRA/MENVEO) Aged Out No longer eligible based on patient's age to complete this topic documented as of this encounter Medical Devices Implanted Type Area Tag Writer Device Identifier Shelf Expiration Date Model / Serial / Lot Lens Intraoc 21.5 - [id number] - [id number] Implanted:Qty: 1 on 05/12/2019 by Yury Brady MD at [facility] Right: Eye [employer] 12/30/2023 [id number] / [id number] / [id number] Lens Intraoc 22.5 - [id number] - [id number] Implanted:Qty: 1 on 04/05/2020 by Yury Brady MD at OR [facility] Left: Eye [employer]OM[employer] 09/28/2024 [id number] / [id number] / [id number] documented as of this encounter Advance Directives Documents on File Type Date Recorded Patient Optical Assistant Expl anation Advance Directives and Living Will 03/11/2018 Krissy Urban ADVANCE DIR ECTIVE Healthcare Agents on File Name Relationship Healthcare Agent Relationship Communication Krissy Ordonez Adult Child Health Care Agen t (per Health Care Power of Head Stock Transfer Clerk document) Guille Urban Adult Child Health Care Agen t (per Health Care Power of Head Stock Transfer Clerk document) Care Teams Machine Stone Polisher Relationship Specialty Start Date End Date Rafa Bergman MD [address] [place] [address] [place] [address] PCP - General Family Medicine 04/19/21 documented as of this encounter
--- OUTSIDE RECORDS SUMMARY | 2023-02-24 09:23 | External Medical Summary | Summary of Care ---
Author Name Unknown Organization [facility] Address [address] [place] [address] Phone [phone] Care Team Providers Care Orthotist Name Role Phone Rafa Bergman MD Primary Care Provide r Encounter Details Date Type Department Care Team Description 09/26/2022 Result Scan Unspecified Department Jade Mcdaniel DO [address] [place], [place] [id number] <No scans attached> Allergies Active Allergy Reactions Severity Noted Date Comments Colchicine Diarrhea 06/16/2018 Daptomycin 01/05/2015 Shortness of breath Imipenem Edema airway High 01/05/2015 Metoprolol Low 01/23/2021 Other reaction(s): fatigue Zoledronic Acid 04/24/2012 Myalgias, fever, chills, vomiting x 2 days Sulfa Antibiotics 12/22/2002 Bactrim--itchy all over, eyes swollen documented as of this encounter (statuses as of 10/15/2022) Medications Medication Sig Dispensed Refills Start Date [...] before bedtime 180 Tablet 1 08/14/2022 Active Hospital, Clinic, or Other Facility Administered [...] as of this encounter (statuses as of 10/15/2022) Active Problems Problem Noted Date Other pulmonary [...] S/P angioplasty with stent 11/27/2018 Atherosclerosis of [place] co ronary artery of [place] heart without angina pectoris 07/08/2018 Arthritis of [...] as of this encounter (statuses as of 10/15/2022) Resolved Problems Problem Noted Date Resolved Date [...] cava filter 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 07/08/2018 CKD (chronic kidney disease) stage 2, GFR 60-89 ml/min 03/12/2019 documented as of this encounter (statuses as of 10/15/2022) Immunizations Name Administration Dates Next Due COVID-19 [...] Pedro Tinsley DO [address] [place] [address] 11/14/2022 Office Visit Family Medicine Rafa Bergman MD [address] [place] [address] [place] [address] 11/21/2022 Office Visit Cardiology Charles Ortega DO [address] [place] [address] 12/24/2022 Nurse Only Rheumatology [place], Nurse Rheum [address] [place] [phone] 01/04/2023 Hospital Encounter Endoscopy Nahun Hong MD [address] [place] [address] 01/04/2023 Surgery Endoscopy Nahun Hong MD [address] [place] [address] COLONOSCOPY FLEXIBLE PROXIMAL DIAGNOSTIC 02/12/2023 Cardiac Studies [facility] [address] [place] [address] 02/22/2023 Office Visit Cardiology Charles Ortega DO [address] [place] [address] 03/06/2023 Office Visit Dermatology Kasey Nieto MD 07/05/2023 Office Visit Rheumatology Deangelo Holley MD [address] [place] [address] Scheduled Procedures Name Priority Associated Diagnoses Date/Ti me COLONOSCOPY FLEXIBLE PROXIMAL DIAGNOSTIC Recall Colon cancer screening 01/04/2023 9:00 AM EDT Health Maintenance Due Date Last Done Comments DTaP,Tdap,and Td Vaccines (2 - Td or Tdap) 11/02/2017 11/03/2007 COLONOSCOPY-EVERY 5 YRS AGES 18-100 02/27/2022 02/27/2017, 02/27/2017, 10/17/2004 CKD PHOS USE SMARTSET 33353 04/19/202204/01, 11/27/2019, 11/21/2018, Additional history exists COVID-19 [...] Additional history exists CKD HGB USE SMARTSET 90602 04/24/202304/24, 04/24/2022, 03/27/2022, Additional history exists TSH 05/22/2023 05/22/2022, 03/02, 04/19/2021, Additional history exists DXA Scan 07/18/2024 07/18/2022, 12/01, 05/09/2017, Additional history exists Hepatitis B Completed 03/18/2009, 05/30, 05/12/2008 Pneumococcal Vaccine: 65+ Years Completed 03/28/2015, 03/20/2010, 11/15/2004 Zoster Vaccines Completed 06/12/2021, 02/01, 11/04/2012 VITAMIN D LEVEL ONCE IN A LIFETIME-USE SMARTSET# [id number] Completed 11/06/2021, 12/28/2019, 06/24/2017, Additional history exists GARDASIL-HPV IMMUNIZATION SERIES Aged Out No longer eligible based on patient's age to complete this topic MENINGOCOCCAL (MENACTRA/MENVEO) Aged Out No longer eligible based on patient's age to complete this topic documented as of this encounter Medical Devices Implanted Type Area Car Dropper Device Identifier Shelf Expiration Date Model / Serial / Lot Lens Intraoc 21.5 - [id number] - [id number] Implanted:Qty: 1 on 05/12/2019 by Yury Brady MD at OR [facility] Right: Eye [employer] 12/30/2023 [id number] / [id number] / [id number] Lens Intraoc 22.5 - [id number] - [id number] Implanted:Qty: 1 on 04/05/2020 by Yury Brady MD at OR [facility] Left: Eye [employer]OM[employer] 09/28/2024 [id number] / [id number] / [id number] documented as of this encounter Procedures Procedure Name Priority Date/Time Associated Diagnosis Comments OUTSIDE LAB RESULTS 09/26/2022 documented in this encounter Results * OUTSIDE LAB RESULTS (09/26/2022) 09/26/2022 Jade Mcdaniel DO LABORATORY documented in this encounter Advance Directives Documents on File Type Date Recorded Patient Gem Setter Expl anation Advance Directives and Living Will 03/11/2018 Krissy Urban ADVANCE DIR ECTIVE Healthcare Agents on File Name Relationship Healthcare Agent Relationship Communication Krissy Ordonez Adult Child Health Care Agen t (per Health Care Power of Spotlight Operator document) Guille Urban Adult Child Health Care Agen t (per Health Care Power of Spotlight Operator document) Care Teams Orthotist Relationship Specialty Start Date End Date Rafa Bergman MD [address] [place] [address] [place] [address] PCP - General Family Medicine 04/19/21 documented as of this encounter
--- OUTSIDE RECORDS SUMMARY | 2023-02-24 09:23 | External Medical Summary | Summary of Care ---
Author Name Unknown Organization [facility] Address [address] [place] [address] Phone [phone] Care Team Providers Care Boat Painter Name Role Phone Rafa Bergman MD Primary Care Provide r Encounter Details Date Type Department Care Team Description 10/09/2022 Inspector FirearmsLap Cutter Medicine [address] [address] Marbella Gandhi RN [address] [place] [address] Medical home patient encounter*; Hospital discharge follow-up; Acute diverticulitis; Acute gout; Knee pain, right Allergies Active Allergy Reactions Severity Noted Date Comments Colchicine Diarrhea 06/16/2018 Daptomycin 01/05/2015 Shortness of breath Imipenem Edema airway High 01/05/2015 Metoprolol Low 01/23/2021 Other reaction(s): fatigue Zoledronic Acid 04/24/2012 Myalgias, fever, chills, vomiting x 2 days Sulfa Antibiotics 12/22/2002 Bactrim--itchy all over, eyes swollen documented as of this encounter (statuses as of 10/09/2022) Medications Medication Sig Dispensed Refills Start Date [...] Active Dicyclomine HCl 10 MG Oral Capsule (Bentyl)Indicati ons:Diarrhea, unspecified type,Irritable bowel syndrome with both constipation [...] 2 Active Levothyroxine Sodium 137 MCG Oral TabletIndication s:Hypothyroidism (acquired) Take 1 Tablet by mouth daily first thing in the morning. (at least 30 min prior to breakfast or other meds) 90 Tablet 3 2 Active dilTIAZem HCl ER Coated Beads 360 MG Oral Tablet Extended Release 24 Hour TAKE ONE TABLET BY MOUTH EVERY DAY 90 Tablet 1 3 Active Rosuvastatin Calcium 5 MG Oral Tablet (Crestor)Indicat ions:Dyslipidemi a, goal LDL below 70 TAKE 1 TABLET BY MOUTH EVERY MORNING 30 Tablet 11 3 Active Loperamide HCl 2 MG Oral Capsule (Imodium)Indicat ions:Diarrhea, unspecified type take 1 capsule 4 times [...] on 10/09/2022 Famotidine 20 MG Oral Tablet (Pepcid)Indicati ons:Abdominal pain, epigastric,Nause a take 1 tablet in the morning and [...] mg by mouth every morning. 0 Active Lactobacillus (FLORANEX) TABS CHEW AND SWALLOW ONE TABLET BY MOUTH ONCE DAILY 30 Tab 5 6 10/10/19 23 Discontinued Amoxicillin 500 MG Oral Capsule (Amoxil) Take 1 Capsule by mouth as needed. 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 Verified patient name/. Advised patient that call is beingrecorded for quality and training purposes. Assessment: Pt. noted the following: alert, oriented, pleasant. Patient reports overall condition as "coming along", "getting back to my normal self." Was active with [facility], for nursing only. Discharged as of 10/05/22. Reporting increased independent with ADL's. Denies falls, although nowwearing an LIBAN brace on right knee, which keeps giving out on her. Former knee replacement in that knee, "about 10-12 years ago, it's the older one". Patient does not use any assistive ambulation devices. Denies chest pain. Reports she has NEVER had to use her NTG. Has an implanted pacemaker. Has some edema in right ankle and right knee, none in left. Denies shortness of breath or cough. Non smoker. Reports GI system as "better", "okay". Bowels moving 2 x day, not loose, not constipated. No reports of issues. Pain: right knee. "It wants to buckle underneath me." "I am treating it very carefully." Using voltaren gel and tylenol. Going for knee xray this afternoon. Daughter providing transportation. Denies any redness, and is a little warm, but not hot to touch. Appetite/intake average. Reports she is still following the low fiber diet, until next week, as directed. Then will switch tohigh fiber. "It's not as hard as it seems." Advance Directives already in place. Copy available in chart. PCP hospital follow up appointment kept on 10/01/22. Confirmed next upcoming appointment as Ophthalmology on 11/13/22 - plans to keep as scheduled. Will plan to continue post discharge IVR calls from prior admission. Did you receive an alert for an annual wellness visit? No Is this call for a hospital, retirement or rehab facility discharge to home? Yes - patient was re-admitted to [facility] 09/25/22 to 09/28/22. Discharge dx: mild acute diverticulitis, acute gout flare. Medication Reconciliation: Medication Reconciliation completed: yes Review of Current goals: Discussed the following patient-centered CM goals with the patient during this discussion: -Prevention: Prevent admission/readmission -Status: At Risk - already readmitted in less than 30 days for re-occurrence of diverticulitis flare. Having issues with right knee buckling and not using an ambulation assistive device - at risk forfalls. To go off the low fiber diet next week, and start on high fiber diet. Taking meds as ordered, except was only using the voltaren gel once a day. Kept her PCP follow up appointment with covering provider. Has PCP appointment scheduled on 11/14/22. Patient took initiative and called Rheumatology regarding her knee, and is going for an xray today. -GI: Patient will have GI issues addressed -Status: On Track - following low fiber diet as directed. Bowels have improved - moving twice daily, not loose, not hard. No reports of abdominal pain. Has imodium on had if needed. -Pain: Patient will have pain well managed -Status: On Track - no reports of abdominal pain. Pain is mainly in right knee. Wearing brace. PCP ordered Voltaren gel. Has tylenol available if needed. Patient already called Rheumatology - they ordered an xray, and will go from there. Rheumatology appointment pending. COPD Patient: No CHF Patient: NO CM Plan: Reviewed 3 Red Flags with patient. Advised to call CM with any of the following: Red Flag 1: falls or injuries, Red Flag 2: new or uncontrolled pain or Red Flag 3: diarrhea, abdominal pain, constipation Remote Patient Monitoring: At this time, RPM not offered/considered for patient due to not needed, not indicated.. Plan for Future Contacts: Plan to follow up within 1 week to check progress on the following goals/needs - continuing to improve? Knee pain? Xray results? Edema/swelling? Bowels moving? Diarrhea/consitpation/abdominal pain? Internet working again? Planned contacts from the following parties will occur this week: contact with rheumatology and xray department as additional contacts per workflow. Advancement/Closure Plan: Keep patient at current Tier with reassessment per workflow. Patient provided CM contact information and encouraged to call with any changes in condition. SNP Member? No PCP Notified of enrollment in CM/HM program: Yes, previously Is Provider in agreement with POC? Yes Marbella Gandhi, RN Outpatient Case Management documented in this encounter Plan of Treatment Upcoming Encounters Date Type Specialty Care Team Description 11/13/2022 Office Visit Ophthalmology Pedro Tinsley, DO [address] [place] [address] 11/14/2022 Office Visit Family Medicine Rafa Bergman MD [address] [place] [address] [place] [address] 11/21/2022 Office Visit Cardiology Charles Ortega DO [address] [place] [address] 12/24/2022 Nurse Only Rheumatology [place], Nurse [address] [place] [phone] 01/04/2023 Hospital Encounter Endoscopy Nahun Hong MD [address] [place] [address] 01/04/2023 Surgery Endoscopy Nahun Hong MD [address] [place] [address] COLONOSCOPY FLEXIBLE PROXIMAL DIAGNOSTIC 02/12/2023 Cardiac Studies Cardiology [facility] [address] [place] [address] 02/22/2023 Office Visit Cardiology Charles Ortega DO [address] [place] [address] 03/06/2023 Office Visit Dermatology Kasey Nieto MD 07/05/2023 Office Visit Rheumatology Deangelo Holley MD [address] [place] [address] Scheduled Procedures Name Priority Associated Diagnoses Date/Ti me COLONOSCOPY FLEXIBLE PROXIMAL DIAGNOSTIC Recall Colon cancer screening 01/04/2023 9:00 AM EDT Health Maintenance Due Date Last Done Comments DTaP,Tdap,and Td Vaccines (2 - Td or Tdap) 11/02/2017 11/03/2007 COLONOSCOPY-EVERY 5 YRS AGES 18-100 02/27/2022 02/27/2017, 02/27/2017, 10/17/2004 CKD PHOS USE SMARTSET 82721 04/19/202204/01, 11/27/2019, 11/21/2018, Additional history exists COVID-19 [...] Additional history exists CKD HGB USE SMARTSET 03041 04/24/202304/24, 04/24/2022, 03/27/2022, Additional history exists TSH 05/22/2023 05/22/2022, 03/02, 04/19/2021, Additional history exists DXA Scan 07/18/2024 07/18/2022, 12/01, 05/09/2017, Additional history exists Hepatitis B Completed 03/18/2009, 05/30, 05/12/2008 Pneumococcal Vaccine: 65+ Years Completed 03/28/2015, 03/20/2010, 11/15/2004 Zoster Vaccines Completed 06/12/2021, 02/01, 11/04/2012 VITAMIN D LEVEL ONCE IN A LIFETIME-USE SMARTSET# [id number] Completed 11/06/2021, 12/28/2019, 06/24/2017, Additional history exists GARDASIL-HPV IMMUNIZATION SERIES Aged Out No longer eligible based on patient's age to complete this topic MENINGOCOCCAL (MENACTRA/MENVEO) Aged Out No longer eligible based on patient's age to complete this topic documented as of this encounter Medical Devices Implanted Type Area Human Projectile Device Identifier Shelf Expiration Date Model / Serial / Lot Lens Intraoc 21.5 - [id number] - [id number] Implanted:Qty: 1 on 05/12/2019 by Yury Brady MD at OR [facility] Right: Eye [employer]OM[employer] 12/30/2023 [id number] / [id number] / [id number] Lens Intraoc 22.5 - [id number] - [id number] Implanted:Qty: 1 on 04/05/2020 by Yury Brady MD at OR [facility] Left: Eye [employer]CH [employer] LOMB 09/28/2024 [id number] / [id number] / [id number] documented as of this encounter Visit Diagnoses Diagnosis Medical home patient encounter- Primary Other specified examination Hospital discharge follow-up Other follow-up examination Acute diverticulitis Diverticulitis of colon (without mention of hemorrhage) Acute gout Acute gouty arthropathy Knee pain, right Pain in joint, lower leg Colon cancer screening Special screening for malignant neoplasms, colon documented in this encounter Advance Directives Documents on File Type Date Recorded Patient Ed Case Manager Expl anation Advance Directives and Living Will 03/11/2018 Krissy Urban ADVANCE DIR ECTIVE Healthcare Agents on File Name Relationship Healthcare Agent Relationship Communication Krissy Ordonez Adult Child Health Care Agen t (per Health Care Power of Telephone Surveyor document) Guille Urban Adult Child Health Care Agen t (per Health Care Power of Telephone Surveyor document) Care Teams Boat Painter Relationship Specialty Start Date End Date Rafa Bergman MD [address] [place] [address] [place] [address] PCP - General Family Medicine 04/19/21 documented as of this encounter
--- OUTSIDE RECORDS SUMMARY | 2023-02-24 09:23 | External Medical Summary | Summary of Care ---
Author Name Unknown Organization [facility] Address [address] [place] [address] Phone [phone] Care Team Providers Care Carburetor Rebuilder Name Role Phone Rafa Bergman MD Primary Care Provide r Reason for Visit * Reason Onset Date Comments Forms Request 10/01/2022 Encounter Details Date Type Department Care Team Description 10/01/2022 Telephone Family Medicine [address] [place] [address] Rafa Bergman MD [address] [place] [address] [place] [address] Forms Request Allergies Active Allergy Reactions Severity Noted Date Comments Colchicine Diarrhea 06/16/2018 Daptomycin 01/05/2015 Shortness of breath Imipenem Edema airway High 01/05/2015 Metoprolol Low 01/23/2021 Other reaction(s): fatigue Zoledronic Acid 04/24/2012 Myalgias, fever, chills, vomiting x 2 days Sulfa Antibiotics 12/22/2002 Bactrim--itchy all over, eyes swollen documented as of this encounter (statuses as of 10/03/2022) Medications Medication Sig Dispensed Refills Start Date End Date Status VITAMIN D 1000 UNITS PO CAPS Take by mouth daily. 0 Active ASPIRIN 81 MG PO TABS Take by mouth at bedtime. 0 Active Lactobacillus (FLORANEX) TABS CHEW AND SWALLOW ONE TABLET BY MOUTH ONCE DAILY 30 Tab 5 11/30/2015 Active Additional Information Patient taking differently: HS, [...] 1 Capsule by mouth as needed. 0 12/14/2020 Active Diclofenac Sodium 1 % External Gel [...] EVERY MORNING 90 Tablet 1 08/06/2022 Active Allopurinol 300 MG Oral Tablet (Zyloprim) take 1 and 1/2 tablets daily 135 Tablet 1 08/11/2022 Active Famotidine 20 MG Oral Tablet (Pepcid)Indications :Abdominal pain, epigastric,Nausea take 1 tablet in the morning and 1 tablet before bedtime 180 Tablet 1 08/14/2022 Active Eliquis 5 MG Oral Tablet (Apixaban) TAKE ONE TABLET BY MOUTH TWICE DAILY 180 Tablet 1 09/28/2022 Active Hospital, Clinic, or Other Facility Administered [...] as of this encounter (statuses as of 10/03/2022) Active Problems Problem Noted Date Other pulmonary [...] S/P angioplasty with stent 11/27/2018 Atherosclerosis of [place] co ronary artery of [place] heart without angina pectoris 07/08/2018 Arthritis of [...] as of this encounter (statuses as of 10/03/2022) Resolved Problems Problem Noted Date Resolved Date [...] cava filter 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 Call kahlil at [phone] completed[address] in Dr[address] Mclain's box in med room. documented in this encounter Plan of Treatment Upcoming Encounters Date Type Specialty Care Team Description 11/13/2022 Office Visit Ophthalmology Pedro Tinsley, DO [address] [place] [address] 11/14/2022 Office Visit Family Medicine Rfaa Bergman MD [address] [place] [address] [place] [address] 11/21/2022 Office Visit Cardiology Charles Ortega DO [address] [place] [address] 12/24/2022 Nurse Only Rheumatology [place], Nurse [address] [place] [phone] 01/04/2023 Hospital Encounter Endoscopy Nahun Hong MD [address] [place] [address] 01/04/2023 Surgery Endoscopy Nahun Hong MD [address] [place] [address] COLONOSCOPY FLEXIBLE PROXIMAL DIAGNOSTIC 02/12/2023 Cardiac Studies Cardiology [facility], [facility] [address] [place] [address] 02/22/2023 Office Visit Cardiology Charles Ortega DO [address] [place] [address] 03/06/2023 Office Visit Dermatology Kasey Nieto MD 07/05/2023 Office Visit Rheumatology Deangelo Holley MD [address] [place] [address], [place] [address] Scheduled Procedures Name Priority Associated Diagnoses Date/Ti me COLONOSCOPY FLEXIBLE PROXIMAL DIAGNOSTIC Recall Colon cancer screening 01/04/2023 9:00 AM EDT Health Maintenance Due Date Last Done Comments DTaP,Tdap,and Td Vaccines (2 - Td or Tdap) 11/02/2017 11/03/2007 COLONOSCOPY-EVERY 5 YRS AGES 18-100 02/27/2022 02/27/2017, 02/27/2017, 10/17/2004 CKD PHOS USE SMARTSET 12824 04/19/202204/01, 11/27/2019, 11/21/2018, Additional history exists COVID-19 [...] Additional history exists CKD HGB USE SMARTSET 78126 04/24/202304/24, 04/24/2022, 03/27/2022, Additional history exists TSH 05/22/2023 05/22/2022, 03/02, 04/19/2021, Additional history exists DXA Scan 07/18/2024 07/18/2022, 12/01, 05/09/2017, Additional history exists Hepatitis B Completed 03/18/2009, 05/30, 05/12/2008 Pneumococcal Vaccine: 65+ Years Completed 03/28/2015, 03/20/2010, 11/15/2004 Zoster Vaccines Completed 06/12/2021, 02/01, 11/04/2012 VITAMIN D LEVEL ONCE IN A LIFETIME-USE SMARTSET# [id number] Completed 11/06/2021, 12/28/2019, 06/24/2017, Additional history exists GARDASIL-HPV IMMUNIZATION SERIES Aged Out No longer eligible based on patient's age to complete this topic MENINGOCOCCAL (MENACTRA/MENVEO) Aged Out No longer eligible based on patient's age to complete this topic documented as of this encounter Medical Devices Implanted Type Area Decal Maker Device Identifier Shelf Expiration Date Model / Serial / Lot Lens Intraoc 21.5 - [id number] - [id number] Implanted:Qty: 1 on 05/12/2019 by Yury Brady MD at OR [facility] Right: Eye [employer] 12/30/2023 [id number] / [id number] / [id number] Lens Intraoc 22.5 - [id number] - [id number] Implanted:Qty: 1 on 04/05/2020 by Yury Brady MD at OR [facility] Left: Eye [employer]CH [employer]OM[employer] 09/28/2024 [id number] / [id number] / [id number] documented as of this encounter Advance Directives Documents on File Type Date Recorded Patient Aviation Tactical Readiness Officer Expl anation Advance Directives and Living Will 03/11/2018 Krissy Urban ADVANCE DIR ECTIVE Healthcare Agents on File Name Relationship Healthcare Agent Relationship Communication Krissy Ordonez Adult Child Health Care Agen t (per Health Care Power of Shook Splicer document) Guille Urban Adult Child Health Care Agen t (per Health Care Power of Shook Splicer document) Care Teams Carburetor Rebuilder Relationship Specialty Start Date End Date Rafa Bergman MD [address] [place] [address] [place] [address] PCP - General Family Medicine 04/19/21 documented as of this encounter
--- OUTSIDE RECORDS SUMMARY | 2023-02-24 09:23 | External Medical Summary | Summary of Care ---
Author Name Unknown Organization [facility] Address [address] [place] [address] Phone [phone] Care Team Providers Care Head Soft Sugar Operator Name Role Phone Rafa Bergman MD Primary Care Provide r Reason for Visit * Reason Onset Date Comments Mycode Lab Reorder 10/08/2022 Encounter Details Date Type Department Care Team Description 10/08/2022 Orders Only Outcomes Research Department [address] [place] [address] Joy Guzman CHRA MyCode Research Other*[id number]* Allergies Active Allergy Reactions Severity Noted Date Comments Colchicine Diarrhea 06/16/2018 Daptomycin 01/05/2015 Shortness of breath Imipenem Edema airway High 01/05/2015 Metoprolol Low 01/23/2021 Other reaction(s): fatigue Zoledronic Acid 04/24/2012 Myalgias, fever, chills, vomiting x 2 days Sulfa Antibiotics 12/22/2002 Bactrim--itchy all over, eyes swollen documented as of this encounter (statuses as of 10/08/2022) Medications Medication Sig Dispensed Refills Start Date [...] for Nausea. 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 documented in this encounter Plan of Treatment Upcoming Encounters Date Type Specialty Care Team Description 11/13/2022 Office Visit Ophthalmology Pedro Tinsley, DO [address] [place] [address] 11/14/2022 Office Visit Family Medicine Rafa Bergman MD [address] [place] [address] [place] [phone] 11/21/2022 Office Visit Cardiology Charles Ortega DO [address] [place] [address] 12/24/2022 Nurse Only Rheumatology [place], Nurse [address] [place] [phone] 01/04/2023 Hospital Encounter Endoscopy Nahun Hong MD [address] [place] [address] 01/04/2023 Surgery Endoscopy Nahun Hong MD [address] [place] [address] COLONOSCOPY FLEXIBLE PROXIMAL DIAGNOSTIC 02/12/2023 Cardiac Studies Cardiology [facility] [address] [place] [address] 02/22/2023 Office Visit Cardiology Charles Ortega DO [address] [place] [address] 03/06/2023 Office Visit Dermatology Kasey Nieto MD 07/05/2023 Office Visit Rheumatology Deangelo Holley MD [address] [place] [address], [place] [address] Scheduled Orders Name Type Priority Associated Diagnoses Orde r Schedule MYCODE SUBSEQUENT ADULT Lab Routine MyCode Research Other*[id number] Every 6 Months for 2 Occurrences starting 10/08/2022 until 10/28/2023 Scheduled Procedures Name Priority Associated Diagnoses Date/Ti me COLONOSCOPY FLEXIBLE PROXIMAL DIAGNOSTIC Recall Colon cancer screening 01/04/2023 9:00 AM EDT Health Maintenance Due Date Last Done Comments DTaP,Tdap,and Td Vaccines (2 - Td or Tdap) 11/02/2017 11/03/2007 COLONOSCOPY-EVERY 5 YRS AGES 18-100 02/27/2022 02/27/2017, 02/27/2017, 10/17/2004 CKD PHOS USE SMARTSET 04124 04/19/202204/01, 11/27/2019, 11/21/2018, Additional history exists COVID-19 [...] Additional history exists CKD HGB USE SMARTSET 64994 04/24/202304/24, 04/24/2022, 03/27/2022, Additional history exists TSH 05/22/2023 05/22/2022, 03/02, 04/19/2021, Additional history exists DXA Scan 07/18/2024 07/18/2022, 12/01, 05/09/2017, Additional history exists Hepatitis B Completed 03/18/2009, 05/30, 05/12/2008 Pneumococcal Vaccine: 65+ Years Completed 03/28/2015, 03/20/2010, 11/15/2004 Zoster Vaccines Completed 06/12/2021, 02/01, 11/04/2012 VITAMIN D LEVEL ONCE IN A LIFETIME-USE SMARTSET# 25344 Completed 11/06/2021, 12/28/2019, 06/24/2017, Additional history exists GARDASIL-HPV IMMUNIZATION SERIES Aged Out No longer eligible based on patient's age to complete this topic MENINGOCOCCAL (MENACTRA/MENVEO) Aged Out No longer eligible based on patient's age to complete this topic documented as of this encounter Medical Devices Implanted Type Area Manager Intensive Care Device Identifier Shelf Expiration Date Model / Serial / Lot Lens Intraoc 21.5 - [id number] - [id number] Implanted:Qty: 1 on 05/12/2019 by Yury Brady MD at OR [facility] Right: Eye [employer] 12/30/2023 [id number] / [id number] / [id number] Lens Intraoc 22.5 - [id number] - [id number] Implanted:Qty: 1 on 04/05/2020 by Yury Brady MD at OR [facility] Left: Eye BA[employer]CH [employer] LOMB 09/28/2024 [id number] / [id number] / [id number] documented as of this encounter Visit Diagnoses Diagnosis MyCode Research Other*[id number]- Primary Colon cancer screening Special screening for malignant neoplasms, colon documented in this encounter Advance Directives Documents on File Type Date Recorded Patient Risk Control Consultant Expl anation Advance Directives and Living Will 03/11/2018 Krissy Urban ADVANCE DIR ECTIVE Healthcare Agents on File Name Relationship Healthcare Agent Relationship Communication Krissy Ordonez Adult Child Health Care Agen t (per Health Care Power of Lining Ironer document) Guille Urban Adult Child Health Care Agen t (per Health Care Power of Lining Ironer document) Care Teams Head Soft Sugar Operator Relationship Specialty Start Date End Date Rafa Bergman MD [address] [place] [address] [place] [address] PCP - General Family Medicine 04/19/21 documented as of this encounter
--- OUTSIDE RECORDS SUMMARY | 2023-02-24 09:23 | External Medical Summary | Summary of Care ---
Author Name Unknown Organization [facility] Address [address] [facility] [place] [address] Phone [phone] Care Team Providers Care Dumb Waiter Operator Name Role Phone Rafa Bergman MD Primary Care Provide r Reason for Visit * Reason Onset Date Comments Forms Request 10/17/2022 Call patient whe n forms are completed Encounter Details Date Type Department Care Team Description 10/17/2022 Telephone Family Medicine [address] [place] [address] Rafa Bergman MD [address] [place] [address] [place] [address] Forms Request (Call patient [...] S/P angioplasty with stent 11/27/2018 Atherosclerosis of [place] co ronary artery of [place] heart without angina pectoris 07/08/2018 Arthritis of [...] cava filter 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 [phone] (put in doctor box) documented in this encounter Plan of Treatment Upcoming Encounters Date Type Specialty Care Team Description 11/13/2022 Office Visit Ophthalmology Pedro Tinsley, DO [address] [place] [address] 11/14/2022 Office Visit Family Medicine Rafa Bergman MD [address] [place] [address] [place] [address] 11/21/2022 Office Visit Cardiology Charles Ortega, [address] [place] [address] 12/24/2022 Nurse Only Rheumatology [place], Nurse Rheum [address] [place] [phone] 01/04/2023 Hospital Encounter Endoscopy Nahun Hong MD [address] [place] [address] 01/04/2023 Surgery Endoscopy Nahun Hong MD [address] [place] [address] COLONOSCOPY FLEXIBLE PROXIMAL DIAGNOSTIC 02/12/2023 Cardiac Studies Cardiology Cadence Horne [facility] [address] [place] [address] 02/22/2023 Office Visit Cardiology Charles Ortega DO [address] [place] [address] 03/06/2023 Office Visit Dermatology Kasey Nieto MD 07/05/2023 Office Visit Rheumatology [facility]angel[facility] Hol[facility] [address] Scheduled Procedures Name Priority Associated Diagnoses Date/Ti me COLONOSCOPY FLEXIBLE PROXIMAL DIAGNOSTIC Recall Colon cancer screening 01/04/2023 9:00 AM EDT Health Maintenance Due Date Last Done Comments DTaP,Tdap,and Td Vaccines (2 - Td or Tdap) 11/02/2017 11/03/2007 COLONOSCOPY-EVERY 5 YRS AGES 18-100 02/27/2022 02/27/2017, 02/27/2017, 10/17/2004 CKD PHOS USE SMARTSET 04343 04/19/202204/01, 11/27/2019, 11/21/2018, Additional history exists COVID-19 [...] Additional history exists CKD HGB USE SMARTSET 11728 04/24/202304/24, 04/24/2022, 03/27/2022, Additional history exists TSH 05/22/2023 05/22/2022, 03/02, 04/19/2021, Additional history exists DXA Scan 07/18/2024 07/18/2022, 12/01, 05/09/2017, Additional history exists Hepatitis B Completed 03/18/2009, 05/30, 05/12/2008 Pneumococcal Vaccine: 65+ Years Completed 03/28/2015, 03/20/2010, 11/15/2004 Zoster Vaccines Completed 06/12/2021, 02/01, 11/04/2012 VITAMIN D LEVEL ONCE IN A LIFETIME-USE SMARTSET# [id number] Completed 11/06/2021, 12/28/2019, 06/24/2017, Additional history exists GARDASIL-HPV IMMUNIZATION SERIES Aged Out No longer eligible based on patient's age to complete this topic MENINGOCOCCAL (MENACTRA/MENVEO) Aged Out No longer eligible based on patient's age to complete this topic documented as of this encounter Medical Devices Implanted Type Area Desk Pens Assembler Device Identifier Shelf Expiration Date Model / Serial / Lot Lens Intraoc 21.5 - [id number] - [id number] Implanted:Qty: 1 on 05/12/2019 by Yury Brady MD at [facility] Right: Eye [employer] 12/30/2023 [id number] / [id number] / [id number] Lens Intraoc 22.5 - [id number] - [id number] Implanted:Qty: 1 on 04/05/2020 by Yury Brady MD at OR [facility] Left: Eye [employer] 09/28/2024 [id number] / [id number] / [id number] documented as of this encounter Advance Directives Documents on File Type Date Recorded Patient Addictions Therapist Expl anation Advance Directives and Living Will 03/11/2018 Krissy Urban ADVANCE DIR ECTIVE Healthcare Agents on File Name Relationship Healthcare Agent Relationship Communication Krissy Ordonez Adult Child Health Care Agen t (per Health Care Power of Apprentice Cook document) Guille Urban Adult Child Health Care Agen t (per Health Care Power of Apprentice Cook document) Care Teams Dumb Waiter Operator Relationship Specialty Start Date End Date Rafa Bergman MD [address] [place] [address] [place] [address] PCP - General Family Medicine 04/19/21 documented as of this encounter
--- OUTSIDE RECORDS SUMMARY | 2023-02-24 09:23 | External Medical Summary | Summary of Care ---
Author Name Unknown Organization [facility] [address] [facility] [address] Phone [phone] Care Team Providers Care Home Weatherizing Worker Name Role Phone Rafa Alonso MD Primary Care Provide r Reason for Visit * Reason Comments eRx-Medication Refill Encounter Details Date Type Department Care Team Description 09/27/2022 Refill Family Medicine [address] [place] [address] Rafa Alonso MD [address] [place] [address] [place] [address] Allergies Active Allergy Reactions Severity Noted Date [...] S/P angioplasty with stent 11/27/2018 Atherosclerosis of [place] ronary artery of [place] heart without angina pectoris 07/08/2018 Arthritis of [...] cava filter 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 Informed pt that RX is available at their pharmacy. Pt verbalized understanding and stated they will check with their pharmacy regarding this medication. Thank you, Anastasia Mason CPhT II Medical Authorization Specialist [facility] ([facility]) (Formerly Telepharmacy) 09/28/2022, 11:46 AM * Telephone Encounter - Rafa Alonso MD - 09/28/2022 9:55 AM EDT Signed Prescriptions: Disp Refills Eliquis 5 MG Oral Tablet (Apixaban) 180 Ta*1 Sig: TAKE ONE TABLET BY MOUTH TWICE DAILYAuthorizing Provider: Aziza ALONSO User: MORA HOLLOWAY * Telephone Encounter - Mora Holloway [facility] - 09/28/2022 9:51 AM EDTSigned Prescriptions: Disp Refills Eliquis 5 MG Oral Tablet (Apixaban) 180 Ta*1 Sig: TAKE ONE TABLET BY MOUTH TWICE DAILYAuthorianil Provider: Aziza ALONSO User: MORA HOLLOWAY * Telephone Encounter - Camila Johnson LPN - 09/28/2022 9:43 AM EDTPending Prescriptions: Disp Refills Eliquis 5 MG Oral Tablet (Apixaban) 180 Ta*1 Sig: TAKE ONE TABLET BY MOUTH TWICE DAILY * Telephone Encounter - Sky Burrows, retail marketing specialist - 09/28/2022 9:00 AM EDT Medication(s) is/are [...] Encounters Date Type Specialty Care Team Description 10/01/2022 Office Visit Family Medicine Nicol Ferguson MD [address] [place] [address] [place] [address] 10/10/2022 Hospital Encounter Endoscopy Eleni Phipps MD [address] [place] [address] 10/10/2022 Surgery Endoscopy Eleni Phipps MD [address] [place] [address] COLONOSCOPY FLEXIBLE PROXIMAL DIAGNOSTIC 11/13/2022 Office Visit Ophthalmology Pedro Tinsley, DO [address] [place] [address] 11/14/2022 Office Visit Family Medicine Rafa Alonso MD [address] [place] [address] [place] [address] 11/21/2022 Office Visit Cardiology Charles Ortega DO [address] [place] [address] 12/24/2022 Nurse Only Rheumatology [place], Nurse Rheum [address] [place] [phone] 02/12/2023 Cardiac Studies [facility] [address] [place] [address] 02/22/2023 Office Visit Cardiology Charles Ortega, [address] [place] [address] 03/06/2023 Office Visit Dermatology Kasey Nieto MD 07/05/2023 Office Visit Rheumatology Deangelo Holley MD [address] [place] [address] Scheduled Procedures Name Priority Associated Diagnoses Date/Ti me COLONOSCOPY FLEXIBLE PROXIMAL DIAGNOSTIC Recall Colon cancer screening 10/10/2022 9:00 AM EDT Health Maintenance Due Date Last Done Comments DTaP,Tdap,and Td Vaccines (2 - Td or Tdap) 11/02/2017 11/03/2007 COLONOSCOPY-EVERY 5 YRS AGES 18-100 02/27/2022 02/27/2017, 02/27/2017, 10/17/2004 CKD PHOS USE SMARTSET 23216 04/19/202204/01, 11/27/2019, 11/21/2018, Additional history exists COVID-19 Vaccine (7 - Moderna series) 06/05/2022 02/05/2022, 08/02/2021, 02/28/2021, Additional history exists Depression Screening, Annual for Pts 12 and Over 07/17/2022 07/17/2021 GFR 09/25/2022 03/27/2022, 03/02, 10/18/2021, Additional history exists Albumin/Creatinine Ratio 03/21/2023 022, 04/19/2021, 12/31/2017, Additional history exists HbA1c 03/21/2023 03/21/2022, 04/01, 10/06/2020, Additional history exists CKD HGB USE SMARTSET 68164 04/24/202304/24, 04/24/2022, 03/27/2022, Additional history exists TSH 05/22/2023 05/22/2022, 03/02, 04/19/2021, Additional history exists DXA Scan 07/18/2024 07/18/2022, 12/01, 05/09/2017, Additional history exists Hepatitis B Completed 03/18/2009, 05/30, 05/12/2008 Pneumococcal Vaccine: 65+ Years Completed 03/28/2015, 03/20/2010, 11/15/2004 Zoster Vaccines Completed 06/12/2021, 02/01, 11/04/2012 VITAMIN D LEVEL ONCE IN A LIFETIME-USE SMARTSET# [id number] Completed 11/06/2021, 12/28/2019, 06/24/2017, Additional history exists Influenza Vaccine (FLU shot) Completed 04/2021, 12/28/2020, 12/31/2019, Additional history exists GARDASIL-HPV IMMUNIZATION SERIES Aged Out No longer eligible based on patient's age to complete this topic MENINGOCOCCAL (MENACTRA/MENVEO) Aged Out No longer eligible based on patient's age to complete this topic documented as of this encounter Medical Devices Implanted Type Area Target Setter Device Identifier Shelf Expiration Date Model / Serial / Lot Lens Intraoc 21.5 - [id number] - [id number] Implanted:Qty: 1 on 05/12/2019 by Yury Brady MD at OR [facility] Right: Eye [employer] 12/30/2023 [id number] / [id number] / [id number] Lens Intraoc 22.5 - [id number] - [id number] Implanted:Qty: 1 on 04/05/2020 by Yury Brady MD at OR [facility] Left: Eye [employer]OM[employer] 09/28/2024 [id number] / [id number] / [id number] documented as of this encounter Advance Directives Documents on File Type Date Recorded Patient Supervisor Gluing Expl anation Advance Directives and Living Will 03/11/2018 Krissy Urban ADVANCE DIR ECTIVE Healthcare Agents on File Name Relationship Healthcare Agent Relationship Communication Krissy Ordonez Adult Child Health Care Agen t (per Health Care Power of Bullet Lubricant Mixer document) Guille Urban Adult Child Health Care Agen t (per Health Care Power of Bullet Lubricant Mixer document) Care Teams Home Weatherizing Worker Relationship Specialty Start Date End Date Sellathurai, Thiviyanath, MD [address] [place] [address] [place] [address] PCP - General Family Medicine 04/19/21 documented as of this encounter
--- OUTSIDE RECORDS SUMMARY | 2023-02-24 09:23 | External Medical Summary | Summary of Care ---
Author Name Unknown Organization [facility] Address [address] [place] [address] Phone [phone] Care Team Providers Care Tinner Helper Name Role Phone Rafa Bergman MD Primary Care Provide r Reason for Visit * Reason Comments Outpatient Testing Encounter Details Date Type Department Care Team Description 10/03/2022 Laboratory Laboratory [address] [place] [phone] [facility] [address] [place] [address] Gouty arthropathy Allergies Active Allergy Reactions Severity Noted Date [...] S/P angioplasty with stent 11/27/2018 Atherosclerosis of [place] ronary artery of [place] heart without angina pectoris 07/08/2018 Arthritis of [...] cava filter 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 07/08/2018 CKD [...] Tinsley DO [address] [place] [address] 11/14/2022 Office Visit Family Medicine Rafa Bergman MD [address] [place] [address] [place] [address] 11/21/2022 Office Visit Cardiology Charles Ortega DO [address] [place] [address] 12/24/2022 Nurse Only Rheumatology [place], Nurse Rheum [address] [place] [phone] 01/04/2023 Hospital Encounter Endoscopy Nahun Hong MD [address] [place] [address] 01/04/2023 Surgery Endoscopy Nahun Hong MD [address] [place] [address] COLONOSCOPY FLEXIBLE PROXIMAL DIAGNOSTIC 02/12/2023 Cardiac Studies Cardiology [place] [address] [place] [address] 02/22/2023 Office Visit Cardiology Charles Ortega DO [address] [place] [address] 03/06/2023 Office Visit Dermatology Kasey Nieto MD 07/05/2023 Office Visit Rheumatology Deangelo Holley MD [facility] [address] Pending Results Name Type Priority Associated Diagnoses Date /Time URIC ACID Lab Routine Gouty arthropathy 10/03/2022 12:30 PM EDT Scheduled Procedures Name Priority Associated Diagnoses Date/Ti me COLONOSCOPY FLEXIBLE PROXIMAL DIAGNOSTIC Recall Colon cancer screening 01/04/2023 9:00 AM EDT Health Maintenance Due Date Last Done Comments DTaP,Tdap,and Td Vaccines (2 - Td or Tdap) 11/02/2017 11/03/2007 COLONOSCOPY-EVERY 5 YRS AGES 18-100 02/27/2022 02/27/2017, 02/27/2017, 10/17/2004 CKD PHOS USE SMARTSET 01318 04/19/202204/01, 11/27/2019, 11/21/2018, Additional history exists COVID-19 [...] Additional history exists CKD HGB USE SMARTSET 32701 04/24/202304/24, 04/24/2022, 03/27/2022, Additional history exists TSH 05/22/2023 05/22/2022, 03/02, 04/19/2021, Additional history exists DXA Scan 07/18/2024 07/18/2022, 12/01, 05/09/2017, Additional history exists Hepatitis B Completed 03/18/2009, 05/30, 05/12/2008 Pneumococcal Vaccine: 65+ Years Completed 03/28/2015, 03/20/2010, 11/15/2004 Zoster Vaccines Completed 06/12/2021, 02/01, 11/04/2012 VITAMIN D LEVEL ONCE IN A LIFETIME-USE SMARTSET# 73176 Completed 11/06/2021, 12/28/2019, 06/24/2017, Additional history exists GARDASIL-HPV IMMUNIZATION SERIES Aged Out No longer eligible based on patient's age to complete this topic MENINGOCOCCAL (MENACTRA/MENVEO) Aged Out No longer eligible based on patient's age to complete this topic documented as of this encounter Medical Devices Implanted Type Area Manager Lighting Device Identifier Shelf Expiration Date Model / Serial / Lot Lens Intraoc 21.5 - [id number] - [id number] Implanted:Qty: 1 on 05/12/2019 by Yury Brady MD at [facility] Right: Eye [employer] 12/30/2023 [id number] / [id number] / [id number] Lens Intraoc 22.5 - [id number] - [id number] Implanted:Qty: 1 on 04/05/2020 by Yury Brady MD at [facility] Left: Eye [employer]OM[employer] 09/28/2024 [id number] / [id number] / [id number] documented as of this encounter Visit Diagnoses Diagnosis Gouty arthropathy Gouty arthropathy, unspecified Colon cancer screening Special screening for malignant neoplasms, colon documented in this encounter Advance Directives Documents on File Type Date Recorded Patient Hard Metals Engraver Hand Expl anation Advance Directives and Living Will 03/11/2018 Krissy Urban ADVANCE DIR ECTIVE Healthcare Agents on File Name Relationship Healthcare Agent Relationship Communication Krissy Ordonez Adult Child Health Care Agen t (per Health Care Power of Nursing Education Consultant document) Guille Urban Adult Child Health Care Agen t (per Health Care Power of Nursing Education Consultant document) Care Teams Tinner Helper Relationship Specialty Start Date End Date Rafa Bergman MD [address] [place] [address] [place] [phone] PCP - General Family Medicine 04/19/21 documented as of this encounter
--- OUTSIDE RECORDS SUMMARY | 2023-02-24 09:23 | External Medical Summary | Summary of Care ---
Author Name Unknown Organization [facility] Address [address] [address] Phone [phone] Care Team Providers Care Independent Consultant Name Role Phone Rafa Bergman MD Primary Care Provide r Reason for Visit * Reason Onset Date Comments Hospital Follow-Up Hospital Follow-Up 10/01/2022 Encounter Details Date Type Department Care Team Description 10/01/2022 Office Visit Family Medicine [address] [place] [id number] Nicol Ferguson MD [address] [place] [address] [place] [address] Hospital discharge follow-up*; Acute diverticulitis; Other acute pulmonary embolism with acute cor pulmonale (HCC); Gouty arthropathy; HTN, goal below 140/90; Atherosclerosis of crow coronary artery of crow heart without angina pectoris; Hypertensive kidney disease with stage 3a chronic kidney disease; Tachy-chintan syndrome (HCC); S/P placement of cardiac pacemaker; Prediabetes Allergies Active Allergy Reactions Severity Noted Date Comments Colchicine Diarrhea 06/16/2018 Daptomycin 01/05/2015 Shortness of breath Imipenem Edema airway High 01/05/2015 Metoprolol Low 01/23/2021 Other reaction(s): fatigue Zoledronic Acid 04/24/2012 Myalgias, fever, chills, vomiting x 2 days Sulfa Antibiotics 12/22/2002 Bactrim--itchy all over, eyes swollen documented as of this encounter (statuses as of 10/01/2022) Medications Medication Sig Dispensed Refills Start Date [...] as of this encounter (statuses as of 10/01/2022) Active Problems Problem Noted Date Other pulmonary [...] S/P angioplasty with stent 11/27/2018 Atherosclerosis of crow co ronary artery of crow heart without angina pectoris 07/08/2018 Arthritis of [...] as of this encounter (statuses as of 10/01/2022) Resolved Problems Problem Noted Date Resolved Date [...] cava filter Atherosclerotic heart diseas e of crow coronary artery with angina pectoris 07/08/2018 CKD (chronic kidney disease) stage 2, GFR 60-89 ml/min 03/12/2019 documented as of this encounter (statuses as of 10/01/2022) Immunizations Name Administration Dates Next Due COVID-19 [...] Sign Reading Time Taken Comments Blood Pressure 126/82 10/01/2022 5:33 PM EDT Pulse 86 10/01/2022 5:33 PM EDT Temperature 36.1 C (97 F) 10/01/2022 5:33 PM EDT Respiratory Rate 16 10/01/2022 5:33 PM EDT Oxygen Saturation 96% 10/01/2022 5:33 PM EDT Inhaled Oxygen Concentration - - Weight 71.7 kg (158 lb) 10/01/2022 5:33 PM EDT Height 160 cm (5' 3") 10/01/2022 5:33 PM EDT Body Mass Index 27.99 10/01/2022 5:33 PM EDT documented in this encounter Patient Instructions * Patient Instructions* Nicol Ferguson MD - 10/01/2022 5:48 PM EDT Taking Medicine Safely Medicine is given to help treat or prevent illness. But if you don't take it correctly, it might not help. It might even harm you. Your doctor or pharmacist can help you learn the right way to take your medicine. Listed below are some tips to help you take medicine safely. Safety Tips Have a routine for taking each medicine. Make it part of something you do each day, such as brushing your teeth or eating a meal. When you go to the hospital or your doctor's office, bring all your current medicines in their original boxes or bottles. If you can't do that, bring an up-to-date list of your medicines. Do not stop taking a prescription medicine unless your doctor tells you to. Doing so could make your condition worse. Do not share medicines. Let your doctor and pharmacist know of any allergies you have. Taking prescription medicines with alcohol, street drugs, herbs, supplements, or even some uify-bty-awarfxs medicines can be harmful. Talk to your doctor or pharmacist before using any of these things while taking a prescription medicine. When filling your prescriptions, try using the same pharmacy for all your medicines. If not, let the pharmacist know what medicines you are already on. Keep medicines out of the reach of children and pets. Do not use medicine that has or that doesn't look or smell right. Get rid of it properly. To find out the right way to get rid of medicine: Call your [facility] government's household trash and recycling service and ask if a drug take-back program is available in your community. Call your local pharmacy and ask the right way to get rid of the medicine. Go to http://www.fda.gov/ForConsumers/ConsumerUpdates/hvg156109 to learn how to get rid of medicines safely. Using Generic Medicines Medicines have brand names and generic (chemical) names. When a medicine is first made, it is sold only under its brand name. Later, it can be made and sold as a generic. Generic medicines cost less than brand-name medicines and most work just as well. Most people can use the generic medicine instead of the brand-name medicine, unless their doctor says otherwise. [facility], [address] [place] [address]. All rights reserved. This information is not intended as a substitute for professional medical care. Always follow your healthcare professional's instructions. Coping with Your Diagnosis of a Chronic Health Condition If you have a chronic health condition, you have a problem that may not go away over time. Heart disease, asthma, arthritis, and diabetes are just a few of the chronic conditions that exist. Right now, these conditions have no known cure. But you can take an active role in managing your health. Coping with Your Diagnosis If you've just learned about your health condition, you may be angry, depressed, or afraid. Or you might feel relieved just to know what's wrong. Even if you've known about your health problem for a while, adjusting to it can be hard. But learning about your condition can help you cope. Look for books at your local library. If you have access to a computer, check the Internet. Or contact a group that focuses on your specific problem. Accepting Change Change is hard for most people. Yet right now you may be facing many changes. What you eat or the way you work may change. Your moods, and even your symptoms, might vary from day to day. Although it isn't easy, learning to accept change can help you feel more in control. Taking Control Feeling you have control can make living with your condition easier. Discuss treatment options withyour health care provider. The more you know, the more active you can be in your care. Moving Forward You may wonder whether you will be able to do the things you've always done. That depends on your age, the condition you have, and your goals. To make the most of each day, try to build caring relationships, be active, and eat right. Also, do your best to keep a sense of humor. [facility], [address] [place] [address]. All rights reserved. This information is not intended as a substitute for professional medical care. Always follow your healthcare professional's instructions. Taking an Active Role in Your Medicines Take the time to learn about your medicine. For instance, why are you taking it? What does it do? Work with your doctor or other health care providers to get the answers you need. Talk to your pharmacist about how to take each medicine, and ask for a fact sheet on each one. Ask Questions About Your Medicine What is the name of the medicine? Why do I need to take it? When should I take it? How should I take it: with water? with food? on an empty stomach? How much do I take? What do I do if I miss a dose? What side effects could it cause and which ones should I call the doctor about? Are there any foods or medicines I should avoid while taking this medicine? Keeping track of your medications? Name of medicine: Taken for: Dose: Time(s) to take it: Take an Active Role Fill all your prescriptions at the same pharmacy. This keeps your medicine history in one place. Talk to the pharmacist. Make sure you understand how to take each medicine. Ask for a fact sheet about each one. Tell your doctor and pharmacist about all the prescription and mnly-hax-cjqvpjd medicines you take.This includes vitamins and herbal remedies. Tell your doctor and pharmacist if you have any medical conditions or allergies to any medicine or food, or if you are or . Keep a list of all your medicines. Use the sample to the right as a guide for the type of information needed. [address] [place] [address]. All rights reserved. This information is not intended as a substitute for professional medical care. Always follow your healthcare professional's instructions. documented in this encounter Progress Notes * Nicol Ferguson MD - 10/01/2022 5:48 PM EDT SUBJECTIVE: Rehana Moran is a 77 year old female. Chief Complaint Patient presents with Hospital Follow-Up Hospital Follow-Up Recent Admission: Patient was recently admitted to [facility] on 09/25/22. The date of discharge was 09/28/22. Discharge report received and reviewed. HPI: Brief Clinical History Ms. Moran is a 77 year old woman last seen in Family Medicine 3 weeks ago (6-12-23). She has h/o Chronic kidney disease, stage 3a (HCC), CKD stage 3, heart arrhythmia, Hypertensive kidney disease with stage 3a chronic kidney disease (HCC), Other pulmonary embolism with acute cor pulmonale (HCC), Tachy- chintan syndrome (HCC), and vascular disease complications, due for eval of Other pulmonary embolism with acute cor pulmonale (HCC). Admitted to [facility] 09/25/22-09/28/22 with acute diverticulitis. She had left lower quadrant pain, chills, and weakness. CT scan showed advanced colonoic diverticulosis with evidence of mild acute diverticulitis. No free intraperitoneal air or abscess. It also showed right sided nephrolithiasis and a pacemaker. Stool was also positive for Astrovirus. WBC was mildly elevated at 12.51. She was treated with Zosyn and changed to Cipro/Flagyl per ID recommendations. She was discharged on metronidazole and Cipro for an additional 5 days, which she is still taking. She was also given a probiotic and 3 more days of prednisone for gout flare of her right knee. Is on a low fiber diet until things heal. Stools are still a bit loose. Has some soreness of LLQ but much improved. No nausea, vomiting, fever or chills. Appetite is OK. She was also admitted 08/18-08/31 for acute diverticulitis of the proximal sigmoid colon and then again 09/02-09/06/22 with acute extensive PE with hypoxia and heart strain. She was begun on Eliquis and is taking as prescribed. She has had prior DVT in past. Scheduled for colonoscopy 01/04/23 for follow-up of the diverticulitis. Had a gout flare while she was admitted. She is on allopurinol but still gets flares. It was held during her admission in July but then she received it the next two hospitalizations but had flares. Isstill on the prednisone now and worried it will come back. Is wondering if her allopurinol needs demian increased Is wanting to go back to work when she is able. 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 Is very anxious to go back to work when able. Breathing has been good. Patient Active Problem List Diagnosis Code Senile [...] Arthritis of left ankle M19.072 Atherosclerosis of crow coronary artery of crow heart without angina pectoris I25.10 S/P angioplasty with stent Z95.820 Hypertensive kidney disease with stage 3a chronic kidney disease I12.9, N18.31 History of basal cell carcinoma Z85.828 Chronic kidney disease, stage 3a (HCC) N18.31 Prediabetes R73.03 Gastro-esophageal reflux disease with esophagitis, without bleeding K21.00 Tachy-chintan syndrome ([facility]) I49.5 Atherosclerosis of coronary artery of crow heart without angina pectoris I25.10 Medical home patient encounter Z00.8 Other pulmonary embolism with acute cor pulmonale ([facility]) I26.09 S/P placement of cardiac pacemaker Z95.0 Current Outpatient Medications Medication Sig Dispense Refill VITAMIN D 1000 UNITS PO CAPS Take by mouth daily. ASPIRIN 81 MG PO TABS Take by mouth at bedtime. Lactobacillus (FLORANEX) TABS CHEW AND SWALLOW ONE TABLET BY MOUTH ONCE DAILY (Patient taking differently: at bedtime.) 30 Tab 5 fluticasone (FLONASE) 50 MCG/ACT nasal spray Administer 2 Sprays into each nostril 2 times a day. Use following nasal saline. 1 Inhaler 5 Acetaminophen 500 MG Oral Tablet Take 2 Tablets by mouth every 6 hours as needed for Pain. Fexofenadine HCl 60 MG Oral Tablet (JOHN) Take 1 Tablet by mouth in the morning. CoQ10 100 MG Oral Capsule Take by mouth. Amoxicillin 500 MG Oral Capsule (Amoxil) Take 1 Capsule by mouth as needed. Diclofenac Sodium 1 % External Gel Apply [...] breakfast or other meds) 90 Tablet 3 dilTIAZem HCl ER Coated Beads 360 MG Oral Tablet Extended Release 24 Hour TAKE ONE TABLET BY MOUTH EVERY DAY 90 Tablet 1 Rosuvastatin Calcium 5 MG Oral Tablet (Crestor) TAKE 1 TABLET BY MOUTH EVERY MORNING 30 Tablet 11 Loperamide HCl 2 MG Oral Capsule (Imodium) take 1 capsule 4 times daily as needed for loose stool 30 Capsule 3 Pantoprazole Sodium 40 MG Oral Tablet Delayed Release (Protonix) TAKE 1 TABLET BY MOUTH EVERY MORNING 90 Tablet 1 Allopurinol 300 MG Oral Tablet (Zyloprim) take 1 and 1/2 tablets daily 135 Tablet 1 Famotidine 20 MG Oral Tablet (Pepcid) take 1 tablet in the morning and 1 tablet before bedtime 180 Tablet 1 Eliquis 5 MG Oral Tablet (Apixaban) TAKE ONE TABLET BY MOUTH TWICE DAILY 180 Tablet 1 Current Facility-Administered Medications Medication Dose Route Frequency Provider Last Rate Last Admin Aflibercept (Eylea) intraviteal prefilled syringe 2 mg 2 mg Intravitreal PRN Tomopher T Cessna, DO 2 mg at 09/19/22 1441 ROPivacaine (Naropin) inj 1.5 mg 1.5 mg Injection PRN Tomopher Amanda Cessna, DO 1.5 mg at 09/19/22 1441 Current and discharge medications have been reconciled. Review of patient's allergies indicates: Allergen Reactions Imipenem Edema airway Colchicine Diarrhea Daptomycin Shortness of breath Reclast [Zoledronic Acid] Myalgias, fever, chills, vomiting x 2 days Sulfa Antibiotics Bactrim--itchy all over, eyes swollen Metoprolol Other reaction(s): fatigue Results for orders placed or performed in visit on 05/22/22 TSH Result Value Ref Range TSH 2.20 0.27 - 4.20 uIU/mL *Note: Due to a large number of results and/or encounters for the requested time period, some results have not been displayed. A complete set of results can be found in Results Review. OBJECTIVE: BP 126/82 | Pulse 86 | Temp 36.1 C (97 F) (Tympanic) | Resp 16 | Ht 1.6 m (5' 3") | Wt 71.7 kg (158 lb) | SpO2 96% | BMI 27.99 kg/m | BSA 1.79 m Review Of Systems: Skin: pt denies, new or changing moles, pigmentation change, rash, scaling, itching, bruising, lumps or bumps, hair changes, nail changes Eyes: negative Ears/Nose/Throat: pt denies:, deafness, tinnitus, vertigo, frequent URI's, sinus trouble Respiratory: pt denies:, cough, sputum, pneumonia or bronchitis, asthma, wheezing, dyspnea on exertion and +recent acute extensive PE Cardiovascular: Pacemaker Gastrointestinal: as per HPI Genitourinary: pt denies:, nocturia, dysuria and frequency Musculoskeletal: gout Neurologic: pt denies:, headaches, syncope and seizures Psychiatric: pt denies:, sleep disturbance, anxiety, nervousness and depression Hematologic/Lymphatic/Immunologic: pt denies:, recurrent infections, immunodeficiency, anemia, bruising, fever, chills and weight loss Endocrine: +prediabetes and hypothyroidism PHYSICAL EXAM: General: alert, healthy, no distress, well nourished and well developed Head: Normocephalic, No masses, lesions, tenderness or abnormalities Eye Exam: PERRLA, extraocular movements intact, conjunctiva are pink and non- injected, sclera clear Ears: External ears normal, Canals clear, TM's Normal Nose: no mucosal erythema, no mucosal edema, no purulent discharge Oropharynx: no exudate, no erythema, lips, buccal mucosa, and tongue normal and mucous membranes are moist Neck: supple, no adenopathy, no bruits Heart: regular rate & rhythm, no murmur and no gallops Lungs: chest symmetric with normal AP diameter, no chest deformities noted, no chest wall tenderness, lungs clear to auscultation Abdomen: abdomen soft, normal bowel sounds, no masses or organomegaly, no rebound or guarding and +mild tenderness in LLQ Extremities: no clubbing, no cyanosis, trace edema bilateral lower extremities Neuro Exam: alert & oriented x 3 with fluent speech, no focal motor/sensory deficits, gait normal ASSESSMENT: Hospital discharge follow-up (Primary) - DISCH MED RECON CUR MED LIS Acute diverticulitis Other acute pulmonary embolism with acute cor pulmonale (HCC) Gouty arthropathy - URIC ACID; Future; Expected date: 10/01/2022 HTN, goal below 140/90 Atherosclerosis of crow coronary artery of crow heart without angina pectoris Hypertensive kidney disease with stage 3a chronic kidney disease Tachy-chintan syndrome (HCC) S/P placement of cardiac pacemaker Prediabetes Follow Up: Return as scheduled. PLAN: Continue present medication(s): complete Cipro/metronidazole for acute diverticulitis. Complete prednisone for acute gout flare, which appears resolved on exam. Schedule labs: Uric acid when she returns later this week for labs per PCP. Discussed that would not adjust allopurinol unless her uric acid is over goal. Suspect she had a flare with it being held during hospitalization. Patient education: Discussed low fiber diet, diverticulitis, complete antiboitics and f/u for colonoscopy as scheduled 01/04/23. Reviewed hospital records. Follow up as scheduled. Nicol Ferguson MD documented in this encounter Nursing Notes * Jessi Fonseca LPN - 10/01/2022 5:32 PM EDT Hospital follow up [facility] Increase gout meds? Gout worse Currently on Cipro, Flagyl & prednisone from hospital. documented in this encounter Plan of Treatment Upcoming Encounters Date Type Specialty Care Team Description 11/13/2022 Office Visit Ophthalmology Pedro Tinsley, DO [address] [place] [address] 11/14/2022 Office Visit Family Medicine Rafa Bergman MD [address] [place] [address] [place] [address] 11/21/2022 Office Visit Cardiology Charles Ortega, DO [address] [place] [address] 12/24/2022 Nurse Only Rheumatology [place], Nurse [address] [place] [phone] 01/04/2023 Hospital Encounter Endoscopy Nahun Hong MD [address] [place] [address] 01/04/2023 Surgery Endoscopy Nahun Hong MD [address] [place] [address] COLONOSCOPY FLEXIBLE PROXIMAL DIAGNOSTIC 02/12/2023 Cardiac Studies [facility] [address] [place] [address] 02/22/2023 Office Visit Cardiology Charles Ortega DO [address] [place] [address] 03/06/2023 Office Visit Dermatology Kasey Nieto MD 07/05/2023 Office Visit Rheumatology Deangelo Holley MD [facility], [place] [address] Scheduled Orders Name Type Priority Associated Diagnoses Orde r Schedule URIC ACID Lab Routine Gouty arthropathy Expected: 10/01/2022 (Approximate), Expires: 10/01/2023 Scheduled Procedures Name Priority Associated Diagnoses Date/Ti me COLONOSCOPY FLEXIBLE PROXIMAL DIAGNOSTIC Recall Colon cancer screening 01/04/2023 9:00 AM EDT Health Maintenance Due Date Last Done Comments DTaP,Tdap,and Td Vaccines (2 - Td or Tdap) 11/02/2017 11/03/2007 COLONOSCOPY-EVERY 5 YRS AGES 18-100 02/27/2022 02/27/2017, 02/27/2017, 10/17/2004 CKD PHOS USE SMARTSET 09566 04/19/202204/01, 11/27/2019, 11/21/2018, Additional history exists COVID-19 [...] Additional history exists CKD HGB USE SMARTSET 68760 04/24/202304/24, 04/24/2022, 03/27/2022, Additional history exists TSH 05/22/2023 05/22/2022, 03/02, 04/19/2021, Additional history exists DXA Scan 07/18/2024 07/18/2022, 12/01, 05/09/2017, Additional history exists Hepatitis B Completed 03/18/2009, 05/30, 05/12/2008 Pneumococcal Vaccine: 65+ Years Completed 03/28/2015, 03/20/2010, 11/15/2004 Zoster Vaccines Completed 06/12/2021, 02/01, 11/04/2012 VITAMIN D LEVEL ONCE IN A LIFETIME-USE SMARTSET# [id number] Completed 11/06/2021, 12/28/2019, 06/24/2017, Additional history exists GARDASIL-HPV IMMUNIZATION SERIES Aged Out No longer eligible based on patient's age to complete this topic MENINGOCOCCAL (MENACTRA/MENVEO) Aged Out No longer eligible based on patient's age to complete this topic documented as of this encounter Medical Devices Implanted Type Area Administrative Associate Device Identifier Shelf Expiration Date Model / Serial / Lot Lens Intraoc 21.5 - [id number] - [id number] Implanted:Qty: 1 on 05/12/2019 by Yury Brady MD at OR [facility] Right: Eye [employer] 12/30/2023 [id number] / [id number] / [id number] Lens Intraoc 22.5 - [id number] - [id number] Implanted:Qty: 1 on 04/05/2020 by Yury Brady MD at OR [facility] Left: Eye [employer] 09/28/2024 [id number] / [id number] / [id number] documented as of this encounter Visit Diagnoses Diagnosis Hospital discharge follow-up- Primary Other follow-up examination Acute diverticulitis Diverticulitis of colon (without mention of hemorrhage) Other acute pulmonary embolism with acute cor pulmonale (HCC) Gouty arthropathy Gouty arthropathy, unspecified HTN, goal below 140/90 Unspecified essential hypertension Atherosclerosis of crow coronary artery of crow heart without angina pectoris Hypertensive kidney disease with stage 3a chronic kidney disease Tachy-chintan syndrome (HCC) Sinoatrial node dysfunction S/P placement of cardiac pacemaker Cardiac pacemaker in situ Prediabetes Other abnormal glucose Colon cancer screening Special screening for malignant neoplasms, colon documented in this encounter Advance Directives Documents on File Type Date Recorded 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 Expl anation Advance Directives and Living Will 03/11/2018 Krissy Urban ADVANCE DIR ECTIVE Healthcare Agents on File Name Relationship Healthcare Agent Relationship Communication Krissy Ordonez Adult Child Health Care Agen t (per Health Care Power of Mid Level Java Developer document) Guille Urban Adult Child Health Care Agen t (per Health Care Power of Mid Level Java Developer document) Care Teams Independent Consultant Relationship Specialty Start Date End Date Rafa Bergman MD [address] [place] [address] [place] [address] PCP - General Family Medicine 04/19/21 documented as of this encounter
--- OUTSIDE RECORDS SUMMARY | 2023-02-24 09:23 | External Medical Summary | Summary of Care ---
Author Name Unknown Organization [facility] Address [address] [place] [address] Phone [phone] Care Team Providers Care Production Engine Repairer Name Role Phone Rafa Bergman MD Primary Care Provide r Reason for Visit * Reason Onset Date Comments Forms Request 10/01/2022 Encounter Details Date Type Department Care Team Description 10/01/2022 Telephone Family Medicine [address] [place] [address] Rafa Bergman MD [address] [place] [address] [place] [address] Forms Request Allergies Active Allergy Reactions Severity Noted Date Comments Colchicine Diarrhea 06/16/2018 Daptomycin 01/05/2015 Shortness of breath Imipenem Edema airway High 01/05/2015 Metoprolol Low 01/23/2021 Other reaction(s): fatigue Zoledronic Acid 04/24/2012 Myalgias, fever, chills, vomiting x 2 days Sulfa Antibiotics 12/22/2002 Bactrim--itchy all over, eyes swollen documented as of this encounter (statuses as of 10/10/2022) Medications Medication Sig Dispensed Refills Start Date [...] TWICE DAILY 180 Tablet 1 3 Active Lactobacillus (FLORANEX) TABS CHEW AND SWALLOW ONE TABLET BY MOUTH ONCE DAILY 30 Tab 5 6 10/10/19 23 Discontinued Amoxicillin 500 MG Oral Capsule (Amoxil) Take 1 Capsule by mouth as needed. 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 * Telephone Encounter - Kamila Ortega - 10/01/2022 1:12 PM EDT Pt dropped off application of benefits for dr mclain to sign for her upon his return back to office. Call kahlil at [phone] when completed. Pl[address] in Dr. Mclain's box in med room. documented in this encounter Plan of Treatment Upcoming Encounters Date Type Specialty Care Team Description 11/13/2022 Office Visit Ophthalmology Pedro Tinsley DO [address] [place] [address] 11/14/2022 Office Visit Family Medicine Rafa Bergman MD [address] [place] [address] [place] [address] 11/21/2022 Office Visit Cardiology Charles Ortega DO [address] [place] [address] 12/24/2022 Nurse Only Rheumatology [place], Nurse Rheum [address] [place] [address] 01/04/2023 Hospital Encounter Endoscopy Nahun Hong MD [address] [place] [address] 01/04/2023 Surgery Endoscopy Nahun Hong MD [address] [place] [address] COLONOSCOPY FLEXIBLE PROXIMAL DIAGNOSTIC 02/12/2023 [facility] [address] [place] [address] 02/22/2023 Office Visit Cardiology Charles Ortega, DO [address] [place] [address] 03/06/2023 Office Visit Dermatology Kasey Nieto MD 07/05/2023 Office Visit [facility] [address] Scheduled Procedures Name Priority Associated Diagnoses Date/Ti me COLONOSCOPY FLEXIBLE PROXIMAL DIAGNOSTIC Recall Colon cancer screening 01/04/2023 9:00 AM EDT Health Maintenance Due Date Last Done Comments DTaP,Tdap,and Td Vaccines (2 - Td or Tdap) 11/02/2017 11/03/2007 COLONOSCOPY-EVERY 5 YRS AGES 18-100 02/27/2022 02/27/2017, 02/27/2017, 10/17/2004 CKD PHOS USE SMARTSET 93386 04/19/202204/01, 11/27/2019, 11/21/2018, Additional history exists COVID-19 [...] Additional history exists CKD HGB USE SMARTSET 76954 04/24/202304/24, 04/24/2022, 03/27/2022, Additional history exists TSH 05/22/2023 05/22/2022, 03/02, 04/19/2021, Additional history exists DXA Scan 07/18/2024 07/18/2022, 12/01, 05/09/2017, Additional history exists Hepatitis B Completed 03/18/2009, 05/30, 05/12/2008 Pneumococcal Vaccine: 65+ Years Completed 03/28/2015, 03/20/2010, 11/15/2004 Zoster Vaccines Completed 06/12/2021, 02/01, 11/04/2012 VITAMIN D LEVEL ONCE IN A LIFETIME-USE SMARTSET# [id number] Completed 11/06/2021, 12/28/2019, 06/24/2017, Additional history exists GARDASIL-HPV IMMUNIZATION SERIES Aged Out No longer eligible based on patient's age to complete this topic MENINGOCOCCAL (MENACTRA/MENVEO) Aged Out No longer eligible based on patient's age to complete this topic documented as of this encounter Medical Devices Implanted Type Area Enrichment Assistant Device Identifier Shelf Expiration Date Model / Serial / Lot Lens Intraoc 21.5 - [id number] - [id number] Implanted:Qty: 1 on 05/12/2019 by Yury Brady MD at OR [facility] Right: Eye [employer] 12/30/2023 [id number] / [id number] / [id number] Lens Intraoc 22.5 - [id number] - [id number] Implanted:Qty: 1 on 04/05/2020 by Yury Brady MD at OR [facility] Left: Eye [employer] 09/28/2024 [id number] / [id number] / [id number] documented as of this encounter Advance Directives Documents on File Type Date Recorded Patient Product/Device Technologist Expl anation Advance Directives and Living Will 03/11/2018 Krissy Urban ADVANCE DIR ECTIVE Healthcare Agents on File Name Relationship Healthcare Agent Relationship Communication Krissy Ordonez Adult Child Health Care Agen t (per Health Care Power of Chemical Blender document) Guille Wilmar Adult Child Health Care Agen t (per Health Care Power of Chemical Blender document) Care Teams Production Engine Repairer Relationship Specialty Start Date End Date Rafa Bergman MD [address] [place] [address] [place] [address] PCP - General Family Medicine 04/19/21 documented as of this encounter
[2023-02-24] MEDS ORDERED: SODIUM CHLORIDE 0.9% 500 ML IV STA (09:24)
--- OUTSIDE RECORDS SUMMARY | 2023-02-24 09:24 | External Medical Summary | Summary of Care ---
Author Name Unknown Organization [facility] Address [address] [place] [address] Phone [phone] Care Team Providers Care Software Engineer Advisor Name Role Phone Sandra Alonso MD Primary Care Provide r Reason for Visit * Reason Onset Date Comments Home Health 09/21/2022 Update Encounter Details Date Type Department Care Team Description 09/21/2022 Telephone Family Medicine [address] [place] [address] Sandra Alonso MD [address] [place] [address] [place] [address] Home Health (Update ) Allergies Active Allergy Reactions Severity Noted Date Comments Colchicine Diarrhea 06/16/2018 Daptomycin 01/05/2015 Shortness of breath Imipenem Edema airway High 01/05/2015 Metoprolol Low 01/23/2021 Other reaction(s): fatigue Zoledronic Acid 04/24/2012 Myalgias, fever, chills, vomiting x 2 days Sulfa Antibiotics 12/22/2002 Bactrim--itchy all over, eyes swollen documented as of this encounter (statuses as of 09/22/2022) Medications Medication Sig Dispensed Refills Start Date [...] Active Rosuvastatin Calcium 5 MG Oral Tablet (Crestor)Shilohtio ns:Dyslipidemia, goal LDL below 70 TAKE 1 [...] 08/11/2022 Active Famotidine 20 MG Oral Tablet (Pepcid)Indication s:Abdominal pain, epigastric,Nausea take 1 tablet in the morning and 1 tablet before bedtime 180 Tablet 1 08/14/2022 Active Apixaban 5 MG Oral Tablet (Eliquis) 1 Tablet. 0 09/06/2022 Active Amoxicillin-Pot Clavulanate 875-125 MG Oral Tablet (Augmentin)Indicat ions:Diverticuliti s of colon Take 1 Tablet by mouth in the morning and 1 Tablet before bedtime. Do all this for 7 days. 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 07/08/2018 CKD (chronic kidney disease) stage 2, GFR 60-89 ml/min 03/12/2019 documented as of this encounter (statuses as of 09/22/2022) Immunizations Name Administration Dates Next Due COVID-19 [...] encounter Miscellaneous Notes * Addendum Note - Sandra Alonso MD - 09/22/2022 5:40 PM EDTAddended by: SANDRA ALONSO on: 09/22/2022 05:40 PM Modules accepted: Orders * Telephone Encounter - Sandra Alonso MD - 09/22/2022 5:32 PM EDT Spoke to the pt - pt is still having diarrhea and abd pain ---- stable compared to yesterday - has been having symptoms for 3 days - denied any fever - last abx was 4 weeks ago (for diverticulitis) Plan: - due to recent hospitalization for diverticulitis will initiate abd treatment - advised the pt to come to the lab on Saturday to get the stool study kit moss picker - pt has tolerated the amoxicillin in the past * Telephone Encounter - Quincy Mathew RN - 09/22/2022 4:35 PM EDT Called patient and informed her of Dr. Vásquez's previous message. She verbalized understanding ofall information. Patient said she was in the hospital for 2 weeks and she said they checked her for that before she was sent home. Patient said she has been speaking with Dr. Mclain about this, and she will wait and call him on Saturday. FYI. * Telephone Encounter - Catracho Vásquez DO - 09/22/2022 4:27 PM EDT Patient requires stool specimen prior to determine appropriate medication therapy to evaluate for possible Clostridium difficile colitis secondary to recent hospitalization and antibiotic therapy. Advise start probiotic pending completion of stool specimens * Telephone Encounter - Quincy Mathew RN - 09/22/2022 12:44 PM EDT Called patient and informed her of Dr. Vásquez's previous message. She verbalized understanding ofall information. Patient said she was recently discharged from the hospital with Diverticulitis. She said Dr. Mclain had told her he would prescribe an antibiotic if symptoms worsen (please see Dr. Alonso's previous message). Please advise. * Addendum Note - Catracho Vásquez DO - 09/22/2022 12:09 PM EDTAddended by: CATRACHO VÁSQUEZ on: 09/22/2022 12:09 PM Modules accepted: Orders * Telephone Encounter - Catracho Vásquez DO - 09/22/2022 12:07 PM EDT Advise stool cultures. Continue supportive care, increase fluid intake, Imodium OTC as directed p.r.n. pending results of stool cultures * Telephone Encounter - ASHLEY Tsai - 09/22/2022 10:16 AM EDT Pt calling back in, still has cramping/discomfort. Diarrhea started up again today. Requesting medication. * Telephone Encounter - Sandra Alonso MD - 09/21/2022 1:38 PM EDT Spoke to the pt - her LLQ abd pain and diarrhea are better today - denied any fever - symptoms are improving with diet mod - for now will do symptomatic management - if symptoms worsen then will consider abx * Telephone Encounter - Lindsey Blakely LPN - 09/21/2022 1:05 PM EDT Provider to address: Sandra Alonso MD Reason for Call: Home Health (Update ) Contact: Telephone Call Contact Type: Information Outcome: Irene RN calling from [facility]. She saw patient yesterday. Sent a fax to the office last evening with an update. Left lower quadrant since Saturday. Crampy intermittent discomfort. Nausea. Diarrhea. Diverticulitis while she was admitted 08/18-08/31. Abdominal tenderness when palpating.Taking Dicyclomine and Imodium. Initial relief on Saturday, returned yesterday. Starting take medication again. No fever or chills. Educated on BRAT diet. Edema of bilateral lower extremities. "Eats whatever she wants" BP 128/70 P 80 RR 18 T 97.0 SP O2 92% on room air - baseline 92-97% Denies SOB. Lungs clear. No coughing. Pain 07/09 Nursing is going to do follow up phone calls to monitor symptoms. Irene calling patient when we get off the phone. Will also make phone calls over the weekend and see patient if needed. Next nurse visit is 09/24. Advised Irene and/or patient call back if symptoms are worsening. Voices understanding. Please advise. Total Time including non face to face (minutes): 10 documented in this encounter Plan of Treatment Upcoming Encounters Date Type Specialty Care Team Description 10/10/2022 Hospital Encounter Endoscopy Eleni Phipps MD [address] [place] [address] 10/10/2022 Surgery Endoscopy Eleni Phipps MD [address] [place] [address] [place] [address] COLONOSCOPY FLEXIBLE PROXIMAL DIAGNOSTIC 11/13/2022 Office Visit Ophthalmology Pedro Tinsley, DO [address] [place] [address] 11/14/2022 Office Visit Family Medicine Sandra Alonso MD [address] [place] [address] [place] [address] 11/21/2022 Office Visit Cardiology Charles Ortega, [address] [place] [address] 12/24/2022 Nurse Only Rheumatology [place], Nurse Rheum [address] [place] [address] 02/12/2023 Cardiac Studies Cardiology [facility] [address] [place] [address] 02/22/2023 Office Visit Cardiology Charles Ortega DO [address] [place] [address] 03/06/2023 Office Visit Dermatology Kasey [place] MD 07/05/2023 Office Visit Rheumatology Deangelo Holley MD [address] [place] [address] [place] [address] Scheduled Orders Name Type Priority Associated Diagnoses Orde r Schedule GASTROINTESTINAL PATHOGEN PANEL, STOOL Lab Routine Diarrhea, unspecified type Expected: 09/22/2022 (Approximate), Expires: 09/22/2023 REGIONAL PARASITE ANTIGEN SCREEN Lab Routine Diarrhea, unspecified type Expected: 09/22/2022 (Approximate), Expires: 09/22/2023 CLOSTRIDIUM DIFFICILE, PCR Lab Routine Diarrhea, unspecified type Expected: 09/22/2022 (Approximate), Expires: 09/22/2023 Scheduled Procedures Name Priority Associated Diagnoses Date/Ti me COLONOSCOPY FLEXIBLE PROXIMAL DIAGNOSTIC Recall Colon cancer screening 10/10/2022 9:00 AM EDT Health Maintenance Due Date Last Done Comments DTaP,Tdap,and Td Vaccines (2 - Td or Tdap) 11/02/2017 11/03/2007 COLONOSCOPY-EVERY 5 YRS AGES 18-100 02/27/2022 02/27/2017, 02/27/2017, 10/17/2004 CKD PHOS USE SMARTSET 40947 04/19/202204/01, 11/27/2019, 11/21/2018, Additional history exists COVID-19 Vaccine (7 - Moderna series) 06/05/2022 02/05/2022, 08/02/2021, 02/28/2021, Additional history exists Depression Screening, Annual for Pts 12 and Over 07/17/2022 07/17/2021 GFR 09/25/2022 03/27/2022, 03/02, 10/18/2021, Additional history exists Albumin/Creatinine Ratio 03/21/2023 022, 04/19/2021, 12/31/2017, Additional history exists HbA1c 03/21/2023 03/21/2022, 04/01, 10/06/2020, Additional history exists CKD HGB USE SMARTSET 43044 04/24/202304/24, 04/24/2022, 03/27/2022, Additional history exists TSH 05/22/2023 05/22/2022, 03/02, 04/19/2021, Additional history exists DXA Scan 07/18/2024 07/18/2022, 12/01, 05/09/2017, Additional history exists Hepatitis B Completed 03/18/2009, 05/30, 05/12/2008 Pneumococcal Vaccine: 65+ Years Completed 03/28/2015, 03/20/2010, 11/15/2004 Zoster Vaccines Completed 06/12/2021, 02/01, 11/04/2012 VITAMIN D LEVEL ONCE IN A LIFETIME-USE SMARTSET# [id number] Completed 11/06/2021, 12/28/2019, 06/24/2017, Additional history exists Influenza Vaccine (FLU shot) Completed 04/2021, 12/28/2020, 12/31/2019, Additional history exists GARDASIL-HPV IMMUNIZATION SERIES Aged Out No longer eligible based on patient's age to complete this topic MENINGOCOCCAL (MENACTRA/MENVEO) Aged Out No longer eligible based on patient's age to complete this topic documented as of this encounter Medical Devices Implanted Type Area Inbound Sales Advisor Device Identifier Shelf Expiration Date Model / Serial / Lot Lens Intraoc 21.5 - [id number] - [id number] Implanted:Qty: 1 on 05/12/2019 by Yury Brady MD at [facility] Right: Eye [employer] 12/30/2023 [id number] / [id number] / [id number] Lens Intraoc 22.5 - [id number] - [id number] Implanted:Qty: 1 on 04/05/2020 by Yury Brady MD at OR [facility] Left: Eye [employer] 09/28/2024 [id number] / [id number] / [id number] documented as of this encounter Visit Diagnoses Diagnosis Diarrhea, unspecified type- Primary Diverticulitis of colon Diverticulitis of colon (without mention of hemorrhage) Colon cancer screening Special screening for malignant neoplasms, colon documented in this encounter Advance Directives Documents on File Type Date Recorded Patient Rn Manager Expl anation Advance Directives and Living Will 03/11/2018 Krissy Urban ADVANCE DIR ECTIVE Healthcare Agents on File Name Relationship Healthcare Agent Relationship Communication Krissy Ordonez Adult Child Health Care Agen t (per Health Care Power of Build And Deployment Engineer document) Guille Urban Adult Child Health Care Agen t (per Health Care Power of Build And Deployment Engineer document) Care Teams Software Engineer Advisor Relationship Specialty Start Date End Date Sandra Alonso MD [address] [place] [address] [place] [address] PCP - General Family Medicine 04/19/21 documented as of this encounter
--- OUTSIDE RECORDS SUMMARY | 2023-02-24 09:24 | External Medical Summary | Summary of Care ---
Author Name Unknown Organization [facility] Address [address] [place] [address] Phone [phone] Care Team Providers Care Reconciliation Specialist Name Role Phone Rafa Bergman MD Primary Care Provide r Encounter Details Date Type Department Care Team Description 09/25/2022 Emergency Telemedicine IP Allergies Active Allergy Reactions Severity Noted Date Comments Colchicine Diarrhea 06/16/2018 Daptomycin 01/05/2015 Shortness of breath Imipenem Edema airway High 01/05/2015 Metoprolol Low 01/23/2021 Other reaction(s): fatigue Zoledronic Acid 04/24/2012 Myalgias, fever, chills, vomiting x 2 days Sulfa Antibiotics 12/22/2002 Bactrim--itchy all over, eyes swollen documented as of this encounter (statuses as of 09/27/2022) Medications Medication Sig Dispensed Refills Start Date [...] Active Rosuvastatin Calcium 5 MG Oral Tablet (Crestor)Alejandroo ns:Dyslipidemia, goal LDL below 70 TAKE 1 TABLET BY MOUTH EVERY MORNING 30 Tablet 11 05/15/2022 Active Loperamide HCl 2 MG Oral Capsule (Imodium)Shilohtio ns:Diarrhea, unspecified type take 1 capsule 4 [...] as of this encounter (statuses as of 09/27/2022) Active Problems Problem Noted Date Medical home [...] S/P angioplasty with stent 11/27/2018 Atherosclerosis of [place] co ronary artery of [place] heart without angina pectoris 07/08/2018 Arthritis [...] as of this encounter (statuses as of 09/27/2022) Resolved Problems Problem Noted Date Resolved Date [...] cava filter 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 07/08/2018 CKD (chronic kidney disease) stage 2, GFR 60-89 ml/min 03/12/2019 documented as of this encounter (statuses as of 09/27/2022) Immunizations Name Administration Dates Next Due COVID-19 [...] on file documented as of this encounter Consult Notes * Elza Alanis MD - 09/26/2022 10:45 AM EDT CONSULT - Infectious Disease TELEHEALTH IP Name: Rehana Moran Location: MAIN IP TELEMEDICINE/Tel* Date: 09/26/2022 Time: 10:45 AM REQUESTING SERVICE: [facility] REASON FOR CONSULT: Telemedicine Consult - diverticulitis After connecting through [employer], patient was identified by name and date of and wristband checked. Patient was then informed that this was a Telemedicine visit and that the exam was being conducted confidentially over secure lines. My office door was closed. No one else was in the room with me. Patient acknowledged consent and understanding of privacy and security of the Telemedicine visit, and gave us permission to have the care pipe or steam fitter furnace installer stay in the room in order to assist with thehistory and to conduct the exam. I informed the patient that I have reviewed their record in [facility] and presented the opportunity for them to ask any questions regarding the visit today. The patient agreed to participate. HPI: Patient is a 77 year old female admitted to the hospital on 09/25/2022. This 77 y/o female ("Rehnaa") w/ hx of diverticulitis, gastroenteritis w/ astrovirus, PE on eliquis,mild asthma, CAD, tachy-chintan syndrome s/p PPM, ischemic cardiomyopathy, HTN, CKD III, and hypothyroidism, presented to [facility] for 3 days of nausea and diarrhea (~8 times a day) w/ chills, generalized weakness, and abdominal discomfort in LLQ. No fever but mild leukocytosis, tachycardia, and lactic acidosis. CT showed evidence of sigmoid diverticulitis but no abscess. GI pathogen panel was again positive for Astrovirus Started on zosyn w/ 2.5 liters of NSS. She was recently hospitalized 08/18-08/31/22 for presumed diverticulitis in proximal sigmoid colon w/ a small focus of microperforation, treated w/ zosyn w/ plan for colonoscopy in September. She definitely feels "better not 100%." Diarrhea has subsided but still stomach rumbling, a lot of gas, intermittent chills, and little bit of tenderness in my tummy." No n/v. She lives w/ her family, all of who feel "okay." She denies fever, n/v, sob, coughing, urinary symptoms, or cp. ABX Augmentin x 2 days prior to admission Zosyn 09/25- ALLERGIES: Imipenem, Colchicine, Daptomycin, Reclast [zoledronic acid], Sulfa antibiotics, and Metoprolol PAST MEDICAL HISTORY: Past Medical History: Diagnosis Date Allergic rhinitis Atherosclerotic heart disease of [place] coronary artery with angina pectoris (HCC) Benign [...] NSTEMI (non-ST elevated myocardial infarction) (HCC) 04/28/2018 [facility], cathed and LAD stented with AMIE, [...] to hypertension, elevated TSH, small pericardial effusion [facility] Pericarditis as complication of acute myocardial infarction (HCC) 05/15/2018 [facility] colchicine not tolerated well. Pericarditis as complication of acute myocardial infarction (HCC) 06/05/2018 [facility] steroids Postmenopausal atrophic vaginitis 09/15/2013 Presence of vena cava filter PROLAPSE OF VAGINAL WALL 10/28/2000 Pulmonary embolism and infarction (HCC) 08/30/2009 Pulmonary embolus ([facility]) 2000 Retroperitoneal bleed 02/28/2015 Sebaceous hyperplasia, Rt forehead 10/05/97 01/28/2002 Senile osteoporosis 05/14/2008 Traumatic rupture of left posterior tibial tendon 12/07/14 Urinary frequency 09/15/2013 Viral warts, unspecified Condylomata Vitamin B12 deficiency 05/12/2014 Vitamin D insufficiency 05/12/2014 PAST SURGICAL HISTORY: Past Surgical History: Procedure Laterality Date ARTHROPLASTY KNEE TOTAL 08/18/2009 right knee ARTHROPLASTY KNEE TOTAL 11/11/2014 left knee- [facility]- Dr. Lopez CARDIAC CATH-CARDIOLOGY ONLY 04/28/2018 AMIE to LAD, PCI to RCA COLONOSCOPY 09/2004 diverticulosis COLONOSCOPY, DIAGNOSTIC (RECTUM) 02/27/2017 diverticulosis, repeat 5 yrs/COLONOSCOPY FLEXIBLE PROXIMAL DIAGNOSTIC performed by Ford Pantoja MD at ENDOSCOPY [facility] CTA CHEST NON-CORONARY W CONTRAST 11/13/2018 no [...] 09/19/2022 # 41 Eylea OD, Dr. Tinsley IR FILTER PLACEMENT VENA CAVA 10/2014 [facility] MISCELLANEOUS ORDER ([facility] ONLY) 12/02/2013-12/02/2014 LUCENTIS 0.5MG CONSENT SIGNED OD; DR LAUREANO ADAN ORDER ([facility] ONLY) Right 01/12/2015-01/13/2016 LUCENTIS 0.5MG CONSENT OD SIGNED; DR LAUREANO ADAN ORDER ([facility] ONLY) Right 10/21/2015-10/20/2016 EYLEA OD CONSENT SIGNED, Dr. Laureano ADAN ORDER ([facility] ONLY) Right 11/30/2016-11/30/2017 Eylea OD consnet signed, Dr.Cessna ADAN ORDER ([facility] ONLY) Right 01/30/18-01/30/19 EYLEA OD CONSENT SIGNED, Dr. Laureano ADAN ORDER ([facility] ONLY) ACT 112 signed, 06/12/2018 MISCELLANEOUS ORDER ([facility] ONLY) Right 02/17/2019-02/18/2020 Eylea OD Consent signed, Dr.Cessna ADAN ORDER ([facility] ONLY) Right EYLEA OD CONSENT SIGNED DR. [...] performed by Yury Brady MD at OR [facility] REMOVE CATARACT, INSERT LENS PROSTH Left 04/05/2020 left EXTRACAPSULAR CATARACT REMOVAL WITH INTRAOCULAR LENS performed by Yury Brady MD at OR [facility] REPAIR BLADDER & VAGINA, CYSTOCELE 01/2001 Dr Amaya TOTAL ABD HYSTERECTOMY W/WO REMOVAL OF TUBE(S) 1986 Total Abd Hysterectomy with bilateral salpingo-oophorectomy US RENAL 12/31/2011 renal cyst, small post voiding residual VASC DUPLEX VENOUS LE BILAT 11/13/2018 no DVT SOCIAL HISTORY: Social History Tobacco Use Smoking status: Never Smokeless tobacco: Never Tobacco comments: second hand smoke exposure - 10 years Vaping Use Vaping Use: Never used Substance Use Topics Alcohol use: No Drug use: No FAMILY HISTORY and FAMILY STATUS: Family History Problem Relation Age of Onset [...] detachments or blindness No Past Hx None 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8 LA 3.4 -> 1.2 MICROBIOLOGY DATA: UA unremarkable Blood cx (09/25): NGTD GI pathogen panel (08/19/22, 09/25): Astrovirus detected IMAGING: CT A/P (09/25): 1. Advanced colonic diverticulosis with evidence of mild acute sigmoid diverticulitis. 2. No intraperitoneal 1free air is identified and there is no organized fluid collection to suggestabscess. 3. Right-sided nephrolithiasis. 4. Cardiomegaly and cardiac pacemaker. 5. Large hiatal hernia. IMPRESSION: Suspected sigmoid diverticulitis Hx of diverticulitis, gastroenteritis w/ astrovirus, PE on Eliquis, CAD, tachy- chintan syndrome s/p PPM, HTN, CKD III Hx of allergy to imipenem (anaphylaxis), sulfa (hives), dapto (anaphylaxis) RECOMMENDATIONS: - I recommend to switch zosyn to cipro 500 mg po bid and metronidazole 500 mg po q8 hours to complete abx on 10/01/22. - I also recommend to use decreased dose of eliquis or coumadin in place of eliquis while on cipro for possible drug-drug interaction (combination of cipro and eliquis may increase levels of eliquis) - I have discussed possible side effects of abx - Probiotic while on abx therapy - ID signing off. I recommend cipro/flagyl for po abx for the rest of abx. She took augmentin prior to admission w/o any clinical improvement. I am not too concerned about the Astrovirus as this is a common cause of diarrhea in adults over 65. It is usually mild and resolve spontaneously in a few days. Conservative management w/ nutrition and hydration is appropriate for this. However, contact precaution is the han in preventing outbreak as this infection is contagious: fecal-oral route. More than 50% of this 60-minute visit was spent counseling and coordinating care pertaining to the patient's infection diagnosis, additional work-up, and treatment option(s) as well as potential adverse events of the treatment. documented in this encounter Plan of Treatment Upcoming Encounters Date Type Specialty Care Team Description 10/10/2022 Hospital Encounter Endoscopy Eleni Phipps MD [address] [place] [address] 10/10/2022 Surgery Endoscopy Eleni Phipps MD [address] [place] [phone] COLONOSCOPY FLEXIBLE PROXIMAL DIAGNOSTIC 11/13/2022 Office Visit Ophthalmology Pedro Tinsley, DO [address] [place] [address] 11/14/2022 Office Visit Family Medicine Rafa Bergman MD [address] [place] [address] [place] [address] 11/21/2022 Office Visit Cardiology Charles Ortega, DO [address] [place] [address] 12/24/2022 Nurse Only Rheumatology [place], Nurse Rheum [address] [place] [phone] 02/12/2023 Cardiac Studies [facility]iology [facility] [address] [place] [address] 02/22/2023 Office Visit Cardiology Charles Ortega, DO [address] [place] [address] 03/06/2023 Office Visit Dermatology Kasey Nieto MD 07/05/2023 Office Visit Rheumatology Deangelo Holley MD [address] [facility] [place] [address] Scheduled Procedures Name Priority Associated Diagnoses Date/Ti me COLONOSCOPY FLEXIBLE PROXIMAL DIAGNOSTIC Recall Colon cancer screening 10/10/2022 9:00 AM EDT Health Maintenance Due Date Last Done Comments DTaP,Tdap,and Td Vaccines (2 - Td or Tdap) 11/02/2017 11/03/2007 COLONOSCOPY-EVERY 5 YRS AGES 18-100 02/27/2022 02/27/2017, 02/27/2017, 10/17/2004 CKD PHOS USE SMARTSET 20048 04/19/202204/01, 11/27/2019, 11/21/2018, Additional history exists COVID-19 Vaccine (7 - Moderna series) 06/05/2022 02/05/2022, 08/02/2021, 02/28/2021, Additional history exists Depression Screening, Annual for Pts 12 and Over 07/17/2022 07/17/2021 GFR 09/25/2022 03/27/2022, 03/02, 10/18/2021, Additional history exists Albumin/Creatinine Ratio 03/21/2023 022, 04/19/2021, 12/31/2017, Additional history exists HbA1c 03/21/2023 03/21/2022, 04/01, 10/06/2020, Additional history exists CKD HGB USE SMARTSET 21303 04/24/202304/24, 04/24/2022, 03/27/2022, Additional history exists TSH 05/22/2023 05/22/2022, 03/02, 04/19/2021, Additional history exists DXA Scan 07/18/2024 07/18/2022, 12/01, 05/09/2017, Additional history exists Hepatitis B Completed 03/18/2009, 05/30, 05/12/2008 Pneumococcal Vaccine: 65+ Years Completed 03/28/2015, 03/20/2010, 11/15/2004 Zoster Vaccines Completed 06/12/2021, 02/01, 11/04/2012 VITAMIN D LEVEL ONCE IN A LIFETIME-USE SMARTSET# [id number] Completed 11/06/2021, 12/28/2019, 06/24/2017, Additional history exists Influenza Vaccine (FLU shot) Completed 04/2021, 12/28/2020, 12/31/2019, Additional history exists GARDASIL-HPV IMMUNIZATION SERIES Aged Out No longer eligible based on patient's age to complete this topic MENINGOCOCCAL (MENACTRA/MENVEO) Aged Out No longer eligible based on patient's age to complete this topic documented as of this encounter Medical Devices Implanted Type Area Expanded Function Dental Assistant Device Identifier Shelf Expiration Date Model / Serial / Lot Lens Intraoc 21.5 - [id number] - [id number] Implanted:Qty: 1 on 05/12/2019 by Yury Brady MD at OR [facility] Right: Eye [employer] 12/30/2023 [id number] / [id number] / [id number] Lens Intraoc 22.5 - [id number] - [id number] Implanted:Qty: 1 on 04/05/2020 by Yury Brady MD at OR [facility] Left: Eye [employer] 09/28/2024 [id number] / [id number] / [id number] documented as of this encounter Advance Directives Documents on File Type Date Recorded 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
--- OUTSIDE RECORDS SUMMARY | 2023-02-24 09:24 | External Medical Summary | Summary of Care ---
Author Name Unknown Organization [facility] Address [address] [place] [address] Phone [phone] Care Team Providers Care Group Chief Operator Name Role Phone Rafa Bergman MD Primary Care Provide r Reason for Visit * Reason Onset Date Comments Home Health 09/21/2022 Update Encounter Details Date Type Department Care Team Description 09/21/2022 Telephone Family Medicine [address] [place] [phone] Rafa Bergman MD [address] [place] [address] [place] [address] Home Health (Update ) [...] Tablet (Eliquis) 1 Tablet. 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 Vásquez's previous message. She verbalized understanding ofall information. Patient said she was recently discharged from the hospital with Diverticulitis. She said Dr. Mclain had told her he would prescribe an antibiotic if symptoms worsen (please see Dr. Bergman's previous message). Please advise. * Addendum Note [...] today. Requesting medication. * Telephone Encounter - Rafa Bergman MD - 09/21/2022 1:38 PM EDT Spoke to the pt - her LLQ abd pain and diarrhea are better today - denied any fever - symptoms are improving with diet mod - for now will do symptomatic management - if symptoms worsen then will consider abx * Telephone Encounter - Lindsey Blakely LPN - 09/21/2022 1:05 PM EDT Provider to address: Rafa Bergman MD Reason for Call: Home Health (Update ) Contact: Telephone Call Contact Type: Information Outcome: Irene RN calling from [facility]. She saw patient yesterday. Sent a fax [...] [address] [place] [address] 10/10/2022 Surgery Endoscopy Eleni Phipps MD [address] [place] [address] COLONOSCOPY FLEXIBLE PROXIMAL DIAGNOSTIC 11/13/2022 Office Visit Ophthalmology Pedro Tinsley, DO [address] [place] [address] 11/14/2022 Office Visit Family Medicine Rafa Bergman MD [address] [place] [address] [place] [address] 11/21/2022 Office Visit Cardiology Charles Ortega, DO [address] [place] [address] 12/24/2022 Nurse Only Rheumatology [place], Nurse [address] [place] [phone] 02/12/2023 Cardiac Studies Cardiology [facility], [facility] [address] [place] [address] 02/22/2023 Office Visit Cardiology Charles Ortega DO [address] [place] [address] 03/06/2023 Office Visit Dermatology Kasey Nieto MD 07/05/2023 Office Visit Rheumatology Deangelo Holley MD [address] [place] [address], [place] [address] Scheduled Orders Name Type Priority Associated Diagnoses [...] 02/27/2017, 02/27/2017, 10/17/2004 CKD PHOS USE SMARTSET 15365 04/19/202204/01, 11/27/2019, 11/21/2018, Additional history exists COVID-19 Vaccine (7 - Moderna series) 06/05/2022 02/05/2022, 08/02/2021, 02/28/2021, Additional history exists Depression Screening, Annual for Pts 12 and Over 07/17/2022 07/17/2021 GFR 09/25/2022 03/27/2022, 03/02, 10/18/2021, Additional history exists Albumin/Creatinine Ratio 03/21/2023 022, 04/19/2021, 12/31/2017, Additional history exists HbA1c 03/21/2023 03/21/2022, 04/01, 10/06/2020, Additional history exists CKD HGB USE SMARTSET 53485 04/24/202304/24, 04/24/2022, 03/27/2022, Additional history exists TSH 05/22/2023 05/22/2022, 03/02, 04/19/2021, Additional history exists DXA Scan 07/18/2024 07/18/2022, 12/01, 05/09/2017, Additional history exists Hepatitis B Completed 03/18/2009, 05/30, 05/12/2008 Pneumococcal Vaccine: 65+ Years Completed 03/28/2015, 03/20/2010, 11/15/2004 Zoster Vaccines Completed 06/12/2021, 02/01, 11/04/2012 VITAMIN D LEVEL ONCE IN A LIFETIME-USE SMARTSET# [id number] Completed 11/06/2021, 12/28/2019, 06/24/2017, Additional history exists Influenza Vaccine (FLU shot) Completed 04/2021, 12/28/2020, 12/31/2019, Additional history exists GARDASIL-HPV IMMUNIZATION SERIES Aged Out No longer eligible based on patient's age to complete this topic MENINGOCOCCAL (MENACTRA/MENVEO) Aged Out No longer eligible based on patient's age to complete this topic documented as of this encounter Medical Devices Implanted Type Area Scrap Handler Device Identifier Shelf Expiration Date Model / Serial / Lot Lens Intraoc 21.5 - [id number] - [id number] Implanted:Qty: 1 on 05/12/2019 by Yury Brady MD at OR [facility] Right: Eye [employer] 12/30/2023 [id number] / [id number] / [id number] Lens Intraoc 22.5 - [id number] - [id number] Implanted:Qty: 1 on 04/05/2020 by Yury Brady MD at OR [facility] Left: Eye [employer] 09/28/2024 [id number] / [id number] / [id number] documented as of this encounter Visit Diagnoses Diagnosis Diarrhea, unspecified type- Primary Colon cancer screening Special screening for malignant neoplasms, colon documented in this encounter Advance Directives Documents on File Type Date Recorded 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
--- OUTSIDE RECORDS SUMMARY | 2023-02-24 09:24 | External Medical Summary | Summary of Care ---
Author Name Unknown Organization [facility] Address [address] [place] [address] Phone [phone] Care Team Providers Care Laboratory Technologist Name Role Phone Rafa Bergman MD Primary Care Provide r Reason for Visit * Reason Onset Date Comments case management 09/25/2022 Advice 09/25/2022 Encounter Details Date Type Department Care Team Description 09/25/2022 Vice President Quality Telephone Family Medicine [address] [address] Marbella Gandhi RN [address] [place] [address] case management; Advice Allergies Active Allergy Reactions Severity Noted Date Comments Colchicine Diarrhea 06/16/2018 Daptomycin 01/05/2015 Shortness of breath Imipenem Edema airway High 01/05/2015 Metoprolol Low 01/23/2021 Other reaction(s): fatigue Zoledronic Acid 04/24/2012 Myalgias, fever, chills, vomiting x 2 days Sulfa Antibiotics 12/22/2002 Bactrim--itchy all over, eyes swollen documented as of this encounter (statuses as of 09/25/2022) Medications Medication Sig Dispensed Refills Start Date [...] Active Loperamide HCl 2 MG Oral Capsule (Imodium)Shilohtijessica ns:Diarrhea, unspecified type take 1 capsule 4 [...] as of this encounter (statuses as of 09/25/2022) Active Problems Problem Noted Date Medical home [...] S/P angioplasty with stent 11/27/2018 Atherosclerosis of [place] co ronary artery of [place] heart without angina pectoris 07/08/2018 Arthritis of [...] as of this encounter (statuses as of 09/25/2022) Resolved Problems Problem Noted Date Resolved Date [...] cava filter 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 Will get herself around and dressed. Should be there in about an hour or so. Had another diarrheal stool. Will take another imodium. CM will check [facility] records after while to follow up on patient. Patient agreeable with plan. Will check with daughter regarding transportation. If she is unable, patient will take herself. Denies dizziness. * Telephone Encounter - Viet Braden MD - 09/25/2022 8:29 AM EDT She should go to ER in case she need IV rehydration. * Telephone Encounter - Marbella Gandhi RN - 09/25/2022 7:39 AM EDT Good Morning. It looks like Dr Bergman is not here today. Could you please advise on this patient? * Telephone Encounter - Marbella Gandhi RN - 09/25/2022 7:32 AM EDT Called and spoke with patient. Recent hospitalization for diverticulitis. Diarrhea x 5 through the night, all water, green. Still voiding - cannot tell what color it is, as it is mixed in with the watery stool. Still has saliva - but not a lot. Skin turgor only fair. Pinched skin on back of hand goes part way back down, but stays up a little. "I don't feel real good." Has taken 2 imodium so far. No vomiting, but unable to increase fluids, as she is lying still, and quiet on the bed, with the trash can beside her, as she is feeling like she is going to vomit. Does not have any antiemetics. Asking if she should go to the ER? Please advise..... * Telephone Encounter - Marbella Gandhi RN - 09/25/2022 7:23 AM EDT Received voicemail from patient early this morning. Reports she is having another flare up of her diverticulitis. Was up all night long with diarrhea. Having some nausea. Continuing with the antibiotic you put her on, starting 09/22/22 - Augmentin. Having some abdominal discomfort in lower left abdomen. "I have lost a lot of fluid. Should I go to the emergency room? Requesting call back. documented in this encounter Plan of Treatment Upcoming Encounters Date Type Specialty Care Team Description 10/10/2022 Hospital Encounter Endoscopy Eleni Phipps MD [address] [place] [address] 10/10/2022 Surgery Endoscopy Eleni Phipps MD [address] [place] [address] COLONOSCOPY FLEXIBLE PROXIMAL DIAGNOSTIC 11/13/2022 Office Visit Ophthalmology Pedro Tinsley, DO [address] [place] [address] 11/14/2022 Office Visit Family Medicine Rafa Bergman MD [address] [place] [address] [place] [address] 11/21/2022 Office Visit Cardiology Charles Ortega DO [address] [place] [address] 12/24/2022 Nurse Only Rheumatology [place], Nurse Rheum [address] [place] [phone] 02/12/2023 Cardiac Studies Cardiology [place], Pacer [facility] [address] [place] [address] 02/22/2023 Office Visit Cardiology Charles Ortega DO [address] [place] [address] 03/06/2023 Office Visit Dermatology Kasey Nieto MD 07/05/2023 Office Visit Rheumatology Deangelo Holley MD [address] [place] [address] [place] [address] Scheduled Procedures Name Priority Associated Diagnoses Date/Ti me COLONOSCOPY FLEXIBLE PROXIMAL DIAGNOSTIC Recall Colon cancer screening 10/10/2022 9:00 AM EDT Health Maintenance Due Date Last Done Comments DTaP,Tdap,and Td Vaccines (2 - Td or Tdap) 11/02/2017 11/03/2007 COLONOSCOPY-EVERY 5 YRS AGES 18-100 02/27/2022 02/27/2017, 02/27/2017, 10/17/2004 CKD PHOS USE SMARTSET 71861 04/19/202204/01, 11/27/2019, 11/21/2018, Additional history exists COVID-19 Vaccine (7 - Moderna series) 06/05/2022 02/05/2022, 08/02/2021, 02/28/2021, Additional history exists Depression Screening, Annual for Pts 12 and Over 07/17/2022 07/17/2021 GFR 09/25/2022 03/27/2022, 03/02, 10/18/2021, Additional history exists Albumin/Creatinine Ratio 03/21/2023 022, 04/19/2021, 12/31/2017, Additional history exists HbA1c 03/21/2023 03/21/2022, 04/01, 10/06/2020, Additional history exists CKD HGB USE SMARTSET 64034 04/24/202304/24, 04/24/2022, 03/27/2022, Additional history exists TSH 05/22/2023 05/22/2022, 03/02, 04/19/2021, Additional history exists DXA Scan 07/18/2024 07/18/2022, 12/01, 05/09/2017, Additional history exists Hepatitis B Completed 03/18/2009, 05/30, 05/12/2008 Pneumococcal Vaccine: 65+ Years Completed 03/28/2015, 03/20/2010, 11/15/2004 Zoster Vaccines Completed 06/12/2021, 02/01, 11/04/2012 VITAMIN D LEVEL ONCE IN A LIFETIME-USE SMARTSET# 45605 Completed 11/06/2021, 12/28/2019, 06/24/2017, Additional history exists Influenza Vaccine (FLU shot) Completed 04/2021, 12/28/2020, 12/31/2019, Additional history exists GARDASIL-HPV IMMUNIZATION SERIES Aged Out No longer eligible based on patient's age to complete this topic MENINGOCOCCAL (MENACTRA/MENVEO) Aged Out No longer eligible based on patient's age to complete this topic documented as of this encounter Medical Devices Implanted Type Area Powerplant Operator Device Identifier Shelf Expiration Date Model / Serial / Lot Lens Intraoc 21.5 - [id number] - [id number] Implanted:Qty: 1 on 05/12/2019 by Yury Brady MD at OR [facility] Right: Eye [employer] 12/30/2023 [id number] / [id number] / [id number] Lens Intraoc 22.5 - [id number] - [id number] Implanted:Qty: 1 on 04/05/2020 by Yury Brady MD at OR [facility] Left: Eye [employer] LOM[employer] 09/28/2024 [id number] / [id number] / [id number] documented as of this encounter Advance Directives Documents on File Type Date Recorded 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
--- OUTSIDE RECORDS SUMMARY | 2023-02-24 09:24 | External Medical Summary | Summary of Care ---
Author Name Unknown Organization [facility] Address [address] [place] [address] Phone [phone] Care Team Providers Care Technology Training Associate Name Role Phone Rafa Bergman MD Primary Care Provide r Reason for Visit * Reason Onset Date Comments Home Health 09/21/2022 Update Encounter Details Date Type Department Care Team Description 09/21/2022 Telephone Family Medicine [address] [place] [phone] Rafa Bergman MD [address] [place] [address] [place] [address] Home Health (Update ) [...] S/P angioplasty with stent 11/27/2018 Atherosclerosis of [place] co ronary artery of [place] heart without angina pectoris 07/08/2018 Arthritis of [...] cava filter 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 07/08/2018 CKD [...] encounter Miscellaneous Notes * Telephone Encounter - Catracho Vásquez DO [...] [address] [place] [address] 10/10/2022 Surgery Endoscopy Eleni Phipps MD [address] [place] [address] COLONOSCOPY FLEXIBLE PROXIMAL DIAGNOSTIC 11/13/2022 Office Visit Ophthalmology Pedro Tinsley, DO [address] [place] [address] 11/14/2022 Office Visit Family Medicine Rafa Bergman MD [address] [place] [address] [place] [address] 11/21/2022 Office Visit Cardiology Charles Ortega, DO [address] [place] [address] 12/24/2022 Nurse Only Rheumatology [place], Nurse [address] [place] [phone] 02/12/2023 Cardiac Studies Cardiology [place], Pacer [facility] [address] [place] [address] 02/22/2023 Office Visit Cardiology Charles Ortega DO [address] [place] [address] 03/06/2023 Office Visit Dermatology Kasey Nieto MD 07/05/2023 Office Visit Rheumatology Deangelo Holley MD [address] [place], [place] [address] [address] Scheduled Orders Name Type Priority Associated Diagnoses [...] 02/27/2017, 02/27/2017, 10/17/2004 CKD PHOS USE SMARTSET 07154 04/19/202204/01, 11/27/2019, 11/21/2018, Additional history exists COVID-19 Vaccine (7 - Moderna series) 06/05/2022 02/05/2022, 08/02/2021, 02/28/2021, Additional history exists Depression Screening, Annual for Pts 12 and Over 07/17/2022 07/17/2021 GFR 09/25/2022 03/27/2022, 03/02, 10/18/2021, Additional history exists Albumin/Creatinine Ratio 03/21/2023 022, 04/19/2021, 12/31/2017, Additional history exists HbA1c 03/21/2023 03/21/2022, 04/01, 10/06/2020, Additional history exists CKD HGB USE SMARTSET 01921 04/24/202304/24, 04/24/2022, 03/27/2022, Additional history exists TSH 05/22/2023 05/22/2022, 03/02, 04/19/2021, Additional history exists DXA Scan 07/18/2024 07/18/2022, 12/01, 05/09/2017, Additional history exists Hepatitis B Completed 03/18/2009, 05/30, 05/12/2008 Pneumococcal Vaccine: 65+ Years Completed 03/28/2015, 03/20/2010, 11/15/2004 Zoster Vaccines Completed 06/12/2021, 02/01, 11/04/2012 VITAMIN D LEVEL ONCE IN A LIFETIME-USE SMARTSET# 86123 Completed 11/06/2021, 12/28/2019, 06/24/2017, Additional history exists Influenza Vaccine (FLU shot) Completed 04/2021, 12/28/2020, 12/31/2019, Additional history exists GARDASIL-HPV IMMUNIZATION SERIES Aged Out No longer eligible based on patient's age to complete this topic MENINGOCOCCAL (MENACTRA/MENVEO) Aged Out No longer eligible based on patient's age to complete this topic documented as of this encounter Medical Devices Implanted Type Area Herbarium Worker Device Identifier Shelf Expiration Date Model / Serial / Lot Lens Intraoc 21.5 - [id number] - [id number] Implanted:Qty: 1 on 05/12/2019 by CaitlynYury giang MD at OR [facility] Right: Eye [employer] 12/30/2023 [id number] / [id number] / [id number] Lens Intraoc 22.5 - [id number] - [id number] Implanted:Qty: 1 on 04/05/2020 by Yury Brady MD at OR [facility] Left: Eye [employer]OM[employer] 09/28/2024 [id number] / [id number] / [id number] documented as of this encounter Visit Diagnoses Diagnosis Diarrhea, unspecified type- Primary Colon cancer screening Special screening for malignant neoplasms, colon documented in this encounter Advance Directives Documents on File Type Date Recorded 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
--- OUTSIDE RECORDS SUMMARY | 2023-02-24 09:24 | External Medical Summary | Summary of Care ---
Author Name Unknown Organization [facility] Address [address] [place] [address] Phone [phone] Care Team Providers Care Cigar Making Supervisor Name Role Phone Rafa Bergman MD Primary Care Provide r Reason for Visit * Reason Onset Date Comments Home Health 09/21/2022 Update Encounter Details Date Type Department Care Team Description 09/21/2022 Telephone Family Medicine [address] [place] [address] Rafa Bergman MD [address] [place] [address] [place] [address] Home Health (Update ) [...] S/P angioplasty with stent 11/27/2018 Atherosclerosis of [place] ronary artery of [place] heart without angina pectoris 07/08/2018 Arthritis of [...] cava filter 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 She saw patient yesterday. Sent a fax [...] [address] [place] [address] 10/10/2022 Surgery Endoscopy Eleni Phipps MD [address] [place] [address] COLONOSCOPY FLEXIBLE PROXIMAL DIAGNOSTIC 11/13/2022 Office Visit Ophthalmology Pedro Tinsley, DO [address] [place] [address] 11/14/2022 Office Visit Family Medicine Rafa Bergman MD [address] [facility] [place] [address] 11/21/2022 Office Visit Cardiology Charles Ortega, DO [address] [place] [address] 12/24/2022 Nurse Only Rheumatology [place], Nurse Rheum Mo [address] [place] [address] [place] [phone] 02/12/[address] [facility] [address] [place] [address] 02/22/2023 Office Visit Cardiology Charles Ortega, DO [address] [place] [address] 03/06/2023 Office Visit Dermatology Kasey Nieto MD 07/05/2023 Office Visit Rheumatology Deangelo Holley MD [address] [place] [address], [place] [address] Scheduled Procedures Name Priority Associated Diagnoses Date/Ti me COLONOSCOPY FLEXIBLE PROXIMAL DIAGNOSTIC Recall Colon cancer screening 10/10/2022 9:00 AM EDT Health Maintenance Due Date Last Done Comments DTaP,Tdap,and Td Vaccines (2 - Td or Tdap) 11/02/2017 11/03/2007 COLONOSCOPY-EVERY 5 YRS AGES 18-100 02/27/2022 02/27/2017, 02/27/2017, 10/17/2004 CKD PHOS USE SMARTSET 96660 04/19/202204/01, 11/27/2019, 11/21/2018, Additional history exists COVID-19 Vaccine (7 - Moderna series) 06/05/2022 02/05/2022, 08/02/2021, 02/28/2021, Additional history exists Depression Screening, Annual for Pts 12 and Over 07/17/2022 07/17/2021 GFR 09/25/2022 03/27/2022, 03/02, 10/18/2021, Additional history exists Albumin/Creatinine Ratio 03/21/2023 022, 04/19/2021, 12/31/2017, Additional history exists HbA1c 03/21/2023 03/21/2022, 04/01, 10/06/2020, Additional history exists CKD HGB USE SMARTSET 99995 04/24/202304/24, 04/24/2022, 03/27/2022, Additional history exists TSH 05/22/2023 05/22/2022, 03/02, 04/19/2021, Additional history exists DXA Scan 07/18/2024 07/18/2022, 12/01, 05/09/2017, Additional history exists Hepatitis B Completed 03/18/2009, 05/30, 05/12/2008 Pneumococcal Vaccine: 65+ Years Completed 03/28/2015, 03/20/2010, 11/15/2004 Zoster Vaccines Completed 06/12/2021, 02/01, 11/04/2012 VITAMIN D LEVEL ONCE IN A LIFETIME-USE SMARTSET# 92007 Completed 11/06/2021, 12/28/2019, 06/24/2017, Additional history exists Influenza Vaccine (FLU shot) Completed 04/2021, 12/28/2020, 12/31/2019, Additional history exists GARDASIL-HPV IMMUNIZATION SERIES Aged Out No longer eligible based on patient's age to complete this topic MENINGOCOCCAL (MENACTRA/MENVEO) Aged Out No longer eligible based on patient's age to complete this topic documented as of this encounter Medical Devices Implanted Type Area Military Cook Device Identifier Shelf Expiration Date Model / Serial / Lot Lens Intraoc 21.5 - [id number] - [id number] Implanted:Qty: 1 on 05/12/2019 by Yury Brady MD at OR [facility] Right: Eye [employer] 12/30/2023 [id number] / [id number] / [id number] Lens Intraoc 22.5 - [id number] - [id number] Implanted:Qty: 1 on 04/05/2020 by Yury Brady MD at OR [facility] Left: Eye [employer]CH [employer] LOMB 09/28/2024 [id number] / [id number] / [id number] documented as of this encounter Advance Directives Documents on File Type Date Recorded 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
--- OUTSIDE RECORDS SUMMARY | 2023-02-24 09:24 | External Medical Summary | Summary of Care ---
Author Name Unknown Organization [facility] Address [address] [place] [address] Phone [phone] Care Team Providers Care Superintendent Local Name Role Phone Rafa Bergman MD Primary Care Provide r Reason for Visit * Reason Onset Date Comments Home Health 09/21/2022 Update Encounter Details Date Type Department Care Team Description 09/21/2022 Telephone Family Medicine [address] [place] [address] Rafa Bergman MD [address] [place] [address] [place] [address] Home Health (Update ) [...] S/P angioplasty with stent 11/27/2018 Atherosclerosis of [place] co ronary artery of [place] heart without angina pectoris 07/08/2018 Arthritis of [...] cava filter 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 07/08/2018 CKD [...] encounter Miscellaneous Notes * Addendum Note - Catracho Vásquez DO [...] [address] [place] [address] 10/10/2022 Surgery Endoscopy Eleni Phipps MD [address] [place] [address] COLONOSCOPY FLEXIBLE PROXIMAL DIAGNOSTIC 11/13/2022 Office Visit Ophthalmology Pedro Tinsley, DO [address] [place] [address] 11/14/2022 Office Visit Family Medicine Rafa Bergman MD [address] [place] [address] [place] [address] 11/21/2022 Office Visit Cardiology Charles Ortega DO [address] [place] [address] 12/24/2022 Nurse Only Rheumatology [place], Nurse Rheum [address] [place] [phone] 02/12/2023 Cardiac Studies Cardiology [place], Pacer [facility] [address] [place] [address] 02/22/2023 Office Visit Cardiology Charles Ortega DO [address] [place] [address] 03/06/2023 Office Visit Dermatology Kasey Nieto MD 07/05/2023 Office Visit Rheumatology Deangelo Holley MD [address] [place] [address], [place] [address] Scheduled Orders Name Type Priority Associated Diagnoses [...] 02/27/2017, 02/27/2017, 10/17/2004 CKD PHOS USE SMARTSET 53541 04/19/202204/01, 11/27/2019, 11/21/2018, Additional history exists COVID-19 Vaccine (7 - Moderna series) 06/05/2022 02/05/2022, 08/02/2021, 02/28/2021, Additional history exists Depression Screening, Annual for Pts 12 and Over 07/17/2022 07/17/2021 GFR 09/25/2022 03/27/2022, 03/02, 10/18/2021, Additional history exists Albumin/Creatinine Ratio 03/21/2023 022, 04/19/2021, 12/31/2017, Additional history exists HbA1c 03/21/2023 03/21/2022, 04/01, 10/06/2020, Additional history exists CKD HGB USE SMARTSET 20740 04/24/202304/24, 04/24/2022, 03/27/2022, Additional history exists TSH 05/22/2023 05/22/2022, 03/02, 04/19/2021, Additional history exists DXA Scan 07/18/2024 07/18/2022, 12/01, 05/09/2017, Additional history exists Hepatitis B Completed 03/18/2009, 05/30, 05/12/2008 Pneumococcal Vaccine: 65+ Years Completed 03/28/2015, 03/20/2010, 11/15/2004 Zoster Vaccines Completed 06/12/2021, 02/01, 11/04/2012 VITAMIN D LEVEL ONCE IN A LIFETIME-USE SMARTSET# 81105 Completed 11/06/2021, 12/28/2019, 06/24/2017, Additional history exists Influenza Vaccine (FLU shot) Completed 04/2021, 12/28/2020, 12/31/2019, Additional history exists GARDASIL-HPV IMMUNIZATION SERIES Aged Out No longer eligible based on patient's age to complete this topic MENINGOCOCCAL (MENACTRA/MENVEO) Aged Out No longer eligible based on patient's age to complete this topic documented as of this encounter Medical Devices Implanted Type Area Outside Plant Supervisor Device Identifier Shelf Expiration Date Model / Serial / Lot Lens Intraoc 21.5 - [id number] - [id number] Implanted:Qty: 1 on 05/12/2019 by Yury Brady MD at OR [facility] Right: Eye [employer] 12/30/2023 [id number] / [id number] / [id number] Lens Intraoc 22.5 - [id number] - [id number] Implanted:Qty: 1 on 04/05/2020 by Yury Brady MD at OR [facility] Left: Eye [employer]CH [employer] LOMB 09/28/2024 [id number] / [id number] / [id number] documented as of this encounter Visit Diagnoses Diagnosis Diarrhea, unspecified type- Primary Colon cancer screening Special screening for malignant neoplasms, colon documented in this encounter Advance Directives Documents on File Type Date Recorded 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
--- OUTSIDE RECORDS SUMMARY | 2023-02-24 09:24 | External Medical Summary | Summary of Care ---
Author Name Unknown Organization [facility] Address [address] [place] [address] Phone [phone] Care Team Providers Care Assembly Leader Name Role Phone Rafa Bergman MD Primary Care Provide r Reason for Visit * Reason Onset Date Comments Home Health 09/21/2022 Update Encounter Details Date Type Department Care Team Description 09/21/2022 Telephone Family Medicine [address] [place] [phone] Rafa Bergman MD [address] [place] [address] [place] [address] Home Health (Update ) [...] S/P angioplasty with stent 11/27/2018 Atherosclerosis of [place] co ronary artery of [place] heart without angina pectoris 07/08/2018 Arthritis of [...] cava filter 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 She saw patient yesterday. Sent a fax [...] [address] [place] [address] 10/10/2022 Surgery Endoscopy Eleni Phipps MD [address] [place] [address] COLONOSCOPY FLEXIBLE PROXIMAL DIAGNOSTIC 11/13/2022 Office Visit Ophthalmology Pedro Tinsley, DO [address] [place] [address] 11/14/2022 Office Visit Family Medicine Rafa Bergman MD [address] [place] [address] [place] [address] 11/21/2022 Office Visit Cardiology Charles Ortega, DO [address] [place] [address] 12/24/2022 Nurse Only Rheumatology [place], Nurse Rheum [address] [place] [phone] 02/12/2023 Cardiac Studies Cardiology Cadence Hornes [place] [address] [place] [address] 02/22/2023 Office Visit Cardiology Charles Ortega DO [address] [place] [address] 03/06/2023 Office Visit Dermatology Kasey Nieto MD 07/05/2023 Office Visit Rheumatology Deangelo Holley MD [email or web address] [facility], [place] [address] Scheduled Orders Name Type Priority Associated Diagnoses [...] 02/27/2017, 02/27/2017, 10/17/2004 CKD PHOS USE SMARTSET 02131 04/19/202204/01, 11/27/2019, 11/21/2018, Additional history exists COVID-19 Vaccine (7 - Moderna series) 06/05/2022 02/05/2022, 08/02/2021, 02/28/2021, Additional history exists Depression Screening, Annual for Pts 12 and Over 07/17/2022 07/17/2021 GFR 09/25/2022 03/27/2022, 03/02, 10/18/2021, Additional history exists Albumin/Creatinine Ratio 03/21/2023 022, 04/19/2021, 12/31/2017, Additional history exists HbA1c 03/21/2023 03/21/2022, 04/01, 10/06/2020, Additional history exists CKD HGB USE SMARTSET 52698 04/24/202304/24, 04/24/2022, 03/27/2022, Additional history exists TSH 05/22/2023 05/22/2022, 03/02, 04/19/2021, Additional history exists DXA Scan 07/18/2024 07/18/2022, 12/01, 05/09/2017, Additional history exists Hepatitis B Completed 03/18/2009, 05/30, 05/12/2008 Pneumococcal Vaccine: 65+ Years Completed 03/28/2015, 03/20/2010, 11/15/2004 Zoster Vaccines Completed 06/12/2021, 02/01, 11/04/2012 VITAMIN D LEVEL ONCE IN A LIFETIME-USE SMARTSET# [id number] Completed 11/06/2021, 12/28/2019, 06/24/2017, Additional history exists Influenza Vaccine (FLU shot) Completed 04/2021, 12/28/2020, 12/31/2019, Additional history exists GARDASIL-HPV IMMUNIZATION SERIES Aged Out No longer eligible based on patient's age to complete this topic MENINGOCOCCAL (MENACTRA/MENVEO) Aged Out No longer eligible based on patient's age to complete this topic documented as of this encounter Medical Devices Implanted Type Area Receiving Lead Device Identifier Shelf Expiration Date Model / Serial / Lot Lens Intraoc 21.5 - [id number] - [id number] Implanted:Qty: 1 on 05/12/2019 by Yury Brady MD at OR [facility] Right: Eye [employer]OM[employer] 12/30/2023 [id number] / [id number] / [id number] Lens Intraoc 22.5 - [id number] - [id number] Implanted:Qty: 1 on 04/05/2020 by Yury Brady MD at OR [facility] Left: Eye BAUSCH & LOMB 09/28/2024 [id number] / [id number] / [id number] documented as of this encounter Visit Diagnoses Diagnosis Diarrhea, unspecified type- Primary Colon cancer screening Special screening for malignant neoplasms, colon documented in this encounter Advance Directives Documents on File Type Date Recorded 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
--- OUTSIDE RECORDS SUMMARY | 2023-02-24 09:24 | External Medical Summary | Summary of Care ---
Author Name Unknown Organization [facility] Address [address] [place] [address] Phone [phone] Care Team Providers Care Bottom Brusher Name Role Phone Rafa Bergman MD Primary Care Provide r Reason for Visit * Reason Onset Date Comments Home Health 09/21/2022 Update Encounter Details Date Type Department Care Team Description 09/21/2022 Telephone Family Medicine [address] [place] [address] Rafa Bergman MD [address] [place] [address] [place] [address] Home Health (Update ) [...] S/P angioplasty with stent 11/27/2018 Atherosclerosis of [place] co ronary artery of [place] heart without angina pectoris 07/08/2018 Arthritis of [...] cava filter 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 07/08/2018 CKD [...] [address] [place] [address] COLONOSCOPY FLEXIBLE PROXIMAL DIAGNOSTIC 11/13/2022 Office Visit Ophthalmology Pedro Tinsley, DO [address] [place] [address] 11/14/2022 Office Visit Family Medicine Rafa Bergman MD [address] [facility] [place] [address] 11/21/2022 Office Visit Cardiology Charles Ortega, DO [address] [place] [address] 12/24/2022 Nurse Only Rheumatology [place], Nurse Rheum Mo [address] [place] [address] [place] [phone] 02/12/2023 Cardiac Studies Cardiology [facility] [address] [place] [address] 02/22/2023 Office Visit Cardiology Charles Ortega, DO [address] [place] [address] 03/06/2023 Office Visit Dermatology Kasey Nieto MD 07/05/2023 Office Visit Rheumatology Deangelo Holley MD [address] [place] [address], [place] [address] Scheduled Procedures Name Priority Associated Diagnoses Date/Ti me COLONOSCOPY FLEXIBLE PROXIMAL DIAGNOSTIC Recall Colon cancer screening 10/10/2022 9:00 AM EDT Health Maintenance Due Date Last Done Comments DTaP,Tdap,and Td Vaccines (2 - Td or Tdap) 11/02/2017 11/03/2007 COLONOSCOPY-EVERY 5 YRS AGES 18-100 02/27/2022 02/27/2017, 02/27/2017, 10/17/2004 CKD PHOS USE SMARTSET 82088 04/19/202204/01, 11/27/2019, 11/21/2018, Additional history exists COVID-19 Vaccine (7 - Moderna series) 06/05/2022 02/05/2022, 08/02/2021, 02/28/2021, Additional history exists Depression Screening, Annual for Pts 12 and Over 07/17/2022 07/17/2021 GFR 09/25/2022 03/27/2022, 03/02, 10/18/2021, Additional history exists Albumin/Creatinine Ratio 03/21/2023 022, 04/19/2021, 12/31/2017, Additional history exists HbA1c 03/21/2023 03/21/2022, 04/01, 10/06/2020, Additional history exists CKD HGB USE SMARTSET 68629 04/24/202304/24, 04/24/2022, 03/27/2022, Additional history exists TSH 05/22/2023 05/22/2022, 03/02, 04/19/2021, Additional history exists DXA Scan 07/18/2024 07/18/2022, 12/01, 05/09/2017, Additional history exists Hepatitis B Completed 03/18/2009, 05/30, 05/12/2008 Pneumococcal Vaccine: 65+ Years Completed 03/28/2015, 03/20/2010, 11/15/2004 Zoster Vaccines Completed 06/12/2021, 02/01, 11/04/2012 VITAMIN D LEVEL ONCE IN A LIFETIME-USE SMARTSET# 83492 Completed 11/06/2021, 12/28/2019, 06/24/2017, Additional history exists Influenza Vaccine (FLU shot) Completed 04/2021, 12/28/2020, 12/31/2019, Additional history exists GARDASIL-HPV IMMUNIZATION SERIES Aged Out No longer eligible based on patient's age to complete this topic MENINGOCOCCAL (MENACTRA/MENVEO) Aged Out No longer eligible based on patient's age to complete this topic documented as of this encounter Medical Devices Implanted Type Area Domestic Laundry Worker Device Identifier Shelf Expiration Date Model / Serial / Lot Lens Intraoc 21.5 - [id number] - [id number] Implanted:Qty: 1 on 05/12/2019 by Yury Brady MD at OR [facility] Right: Eye [employer] LOMB 12/30/2023 [id number] / [id number] / [id number] Lens Intraoc 22.5 - [id number] - [id number] Implanted:Qty: 1 on 04/05/2020 by Yury Brady MD at OR [facility] Left: Eye [employer]CH [employer] LOMB 09/28/2024 [id number] / [id number] / [id number] documented as of this encounter Advance Directives Documents on File Type Date Recorded 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
--- OUTSIDE RECORDS SUMMARY | 2023-02-24 09:24 | External Medical Summary | Summary of Care ---
Author Name Unknown Organization [facility] Address [address] [facility] [place] [address] Phone [phone] Care Team Providers Care Consultant In Ergonomics And Safety Name Role Phone Rafa Bergman MD Primary Care Provide r Reason for Visit * Reason Onset Date Comments Precert Approved 05/08/2022 PROLIA Encounter Details Date Type Department Care Team Description 05/08/2022 Telephone Rheumatology [facility] [address] [facility] [place] [address] Shira Perera PA-C Precert Approved ( PROLIA) Allergies Active Allergy Reactions Severity Noted Date Comments Colchicine Diarrhea 06/16/2018 Daptomycin 01/05/2015 Shortness of breath Imipenem Edema airway High 01/05/2015 Metoprolol Low 01/23/2021 Other reaction(s): fatigue Zoledronic Acid 04/24/2012 Myalgias, fever, chills, vomiting x 2 days Sulfa Antibiotics 12/22/2002 Bactrim--itchy all over, eyes swollen documented as of this encounter (statuses as of 09/26/2022) Medications Medication Sig Dispensed Refills Start Date [...] EVERY DAY 90 Tablet 1 3 Active Loperamide HCl 2 MG Oral Capsule (Imodium)Indicat ions:Diarrhea, unspecified type take 1 capsule 4 times daily as needed for loose stool 30 Capsule 3 2 08/02/19 23 Discontinued(Ref ill) Pantoprazole Sodium 40 MG Oral Tablet Delayed Release (Protonix) Take by mouth 1 Tablet in the morning. 60 Tablet 5 2 08/07/19 23 Discontinued Rosuvastatin Calcium 5 MG Oral Tablet (Crestor)Indicat ions:Dyslipidemi a, goal LDL below 70 TAKE ONE TABLET BY MOUTH IN THE MORNING 30 Tablet 5 2 05/14/19 23 Discontinued Allopurinol 300 MG Oral Tablet (Zyloprim) TAKE 1 AND 1/2 TABLETS DAILY 135 Tablet 1 2 08/12/19 23 Discontinued Famotidine 20 MG Oral Tablet (Pepcid)Indicati ons:Abdominal pain, epigastric,Nause a take 1 tablet in the morning and 1 tablet before bedtime. 180 Tablet 1 2 08/15/19 23 Discontinued predniSONE 20 MG Oral Tablet (Deltasone) Take 1 Tablet by mouth as needed. 0 2 06/12/19 23 Discontinued Estradiol 0.1 MG/GM Vaginal Cream (Estrace) Apply 0.5 gram vaginally twice a week at bedtime. 42.5 g 3 2 09/11/19 23 Discontinued(Med ication/Dose Changed) Nystatin-Triamci nolone 338979-7.1 UNIT/GM-% External Cream (Mycolog)Indicat ions:Vaginal dryness, menopausal Apply 0.5 g topically to affected area in the morning and 0.5 g before bedtime. As needed for irritation. 30 g 1 3 09/11/19 23 Discontinued Fluconazole 150 MG Oral Tablet (Diflucan) Take 1 Tablet by mouth once a week. 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 2 mg IZ PRN 10/31/2021 09/18/2022 Discontinued ROPivacaine (Naropin) inj 1.5 mgIndications: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 1.5 mg IJ PRN 12/19/2021 09/18/2022 Discontinued documented as of this encounter (statuses as of 09/26/2022) Active Problems Problem Noted Date Medical home [...] S/P angioplasty with stent 11/27/2018 Atherosclerosis of [place] co ronary artery of [place] heart without angina pectoris 07/08/2018 Arthritis [...] as of this encounter (statuses as of 09/26/2022) Resolved Problems Problem Noted Date Resolved Date [...] cava filter 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 07/08/2018 CKD (chronic kidney disease) stage 2, GFR 60-89 ml/min 03/12/2019 documented as of this encounter (statuses as of 09/26/2022) Immunizations Name Administration Dates Next Due COVID-19 [...] encounter Miscellaneous Notes * Telephone Encounter - Naya Brown LPN - 06/05/2022 2:08 PM EST Drug name: PROLIA HCPCS code(s): J0897 Authorization Required: yes Valid auth start date: 05/25/2022 Valid auth end date: 03/31/2099 Location: [facility] # of Visits: UNLIMIED Billing Units Approved: 1 Diagnosis Code(s): M81.0 Pt will owe $0 OOP as she was approved for Financial Assistance which is good til 06/11/22 then patient can reapply. * Telephone Encounter - ASHLEY Smith - 05/24/2022 5:48 PM EST Images from the original note were not included. * Telephone Encounter - Naya Brown LPN - 05/08/2022 11:35 AM EST Pt has an upcoming appointment to received Prolia. Please check for current authorization, notify pt of any out of pocket costs. Thank you! documented in this encounter Plan of Treatment Upcoming Encounters Date Type Specialty Care Team Description 10/10/2022 Hospital Encounter Endoscopy Eleni Phipps MD [address] [place] [address] 10/10/2022 Surgery Endoscopy Eleni Phipps MD [address] [place] [address] COLONOSCOPY FLEXIBLE PROXIMAL DIAGNOSTIC 11/13/2022 Office Visit Ophthalmology Pedro Tinsley, DO [address] [place] [address] 11/14/2022 Office Visit Family Medicine Rafa Bergman MD [address] [place] [address] [place] [address] 11/21/2022 Office Visit Cardiology Charles Ortega, DO [address] [place] [address] 12/24/2022 Nurse Only Rheumatology [place], Nurse Rheum [address] [place] [phone] 02/12/2023 Cardiac Studies Cardiology [facility] [address] [place] [address] 02/22/2023 Office Visit Cardiology Charles Ortega DO [address] [place] [address] 03/06/2023 Office Visit Dermatology Kasey Nieto MD 07/05/2023 Office Visit Rheumatology Deangelo Holley MD [address] [place], [place] [address] [address] Scheduled Procedures Name Priority Associated Diagnoses Date/Ti me COLONOSCOPY FLEXIBLE PROXIMAL DIAGNOSTIC Recall Colon cancer screening 10/10/2022 9:00 AM EDT Health Maintenance Due Date Last Done Comments DTaP,Tdap,and Td Vaccines (2 - Td or Tdap) 11/02/2017 11/03/2007 COLONOSCOPY-EVERY 5 YRS AGES 18-100 02/27/2022 02/27/2017, 02/27/2017, 10/17/2004 CKD PHOS USE SMARTSET 78540 04/19/202204/01, 11/27/2019, 11/21/2018, Additional history exists COVID-19 Vaccine (7 - Moderna series) 06/05/2022 02/05/2022, 08/02/2021, 02/28/2021, Additional history exists Depression Screening, Annual for Pts 12 and Over 07/17/2022 07/17/2021 GFR 09/25/2022 03/27/2022, 03/02, 10/18/2021, Additional history exists Albumin/Creatinine Ratio 03/21/2023 022, 04/19/2021, 12/31/2017, Additional history exists HbA1c 03/21/2023 03/21/2022, 04/01, 10/06/2020, Additional history exists CKD HGB USE SMARTSET 50807 04/24/202304/24, 04/24/2022, 03/27/2022, Additional history exists TSH 05/22/2023 05/22/2022, 03/02, 04/19/2021, Additional history exists DXA Scan 07/18/2024 07/18/2022, 12/01, 05/09/2017, Additional history exists Hepatitis B Completed 03/18/2009, 05/30, 05/12/2008 Pneumococcal Vaccine: 65+ Years Completed 03/28/2015, 03/20/2010, 11/15/2004 Zoster Vaccines Completed 06/12/2021, 02/01, 11/04/2012 VITAMIN D LEVEL ONCE IN A LIFETIME-USE SMARTSET# 69942 Completed 11/06/2021, 12/28/2019, 06/24/2017, Additional history exists Influenza Vaccine (FLU shot) Completed 04/2021, 12/28/2020, 12/31/2019, Additional history exists GARDASIL-HPV IMMUNIZATION SERIES Aged Out No longer eligible based on patient's age to complete this topic MENINGOCOCCAL (MENACTRA/MENVEO) Aged Out No longer eligible based on patient's age to complete this topic documented as of this encounter Medical Devices Implanted Type Area Annealer Device Identifier Shelf Expiration Date Model / Serial / Lot Lens Intraoc 21.5 - [id number] - [id number] Implanted:Qty: 1 on 05/12/2019 by Yury Brady MD at [facility] Right: Eye [employer]OM[employer] 12/30/2023 [id number] / [id number] / [id number] Lens Intraoc 22.5 - [id number] - [id number] Implanted:Qty: 1 on 04/05/2020 by Yury Brady MD at [facility] Left: Eye BA[employer]CH [employer] LOMB 09/28/2024 [id number] / [id number] / [id number] documented as of this encounter Advance Directives Documents on File Type Date Recorded 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
--- OUTSIDE RECORDS SUMMARY | 2023-02-24 09:25 | External Medical Summary | Summary of Care ---
Author Name Unknown Organization [facility] Address [address] [place] [address] Phone [phone] Care Team Providers Care Office Support Clerk Name Role Phone Rafa Bergman MD Primary Care Provide r Reason for Visit * Reason Onset Date Comments Home Health 09/21/2022 Update Encounter Details Date Type Department Care Team Description 09/21/2022 Telephone Family Medicine [address] [place] [phone] Rafa Bergman MD [address] [place] [address] [place] [address] Home Health (Update ) [...] S/P angioplasty with stent 11/27/2018 Atherosclerosis of [place] co ronary artery of [place] heart without angina pectoris 07/08/2018 Arthritis of [...] cava filter 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 She saw patient yesterday. Sent a [...] [address] [place] [address] COLONOSCOPY FLEXIBLE PROXIMAL DIAGNOSTIC 11/13/2022 Office Visit Ophthalmology Pedro Tinsley, DO [address] [place] [address] 11/14/2022 Office Visit Family Medicine Rafa Bergman MD [address] [facility] [place] [address] 11/21/2022 Office Visit Cardiology Charles Ortega, DO [address] [place] [address] 12/24/2022 Nurse Only Rheumatology [place], Nurse Rheum Mo [address] [place] [address] [place] [phone] 02/12/[address] [facility] [address] [place] [address] 02/22/2023 Office Visit Cardiology Charles Ortega, DO [address] [place] [address] 03/06/2023 Office Visit Dermatology Kasey Nieto MD 07/05/2023 Office Visit Rheumatology Deangelo Holley MD [address] [place] [address], [place] [address] Scheduled Procedures Name Priority Associated Diagnoses Date/Ti me COLONOSCOPY FLEXIBLE PROXIMAL DIAGNOSTIC Recall Colon cancer screening 10/10/2022 9:00 AM EDT Health Maintenance Due Date Last Done Comments DTaP,Tdap,and Td Vaccines (2 - Td or Tdap) 11/02/2017 11/03/2007 COLONOSCOPY-EVERY 5 YRS AGES 18-100 02/27/2022 02/27/2017, 02/27/2017, 10/17/2004 CKD PHOS USE SMARTSET 67825 04/19/202204/01, 11/27/2019, 11/21/2018, Additional history exists COVID-19 Vaccine (7 - Moderna series) 06/05/2022 02/05/2022, 08/02/2021, 02/28/2021, Additional history exists Depression Screening, Annual for Pts 12 and Over 07/17/2022 07/17/2021 GFR 09/25/2022 03/27/2022, 03/02, 10/18/2021, Additional history exists Albumin/Creatinine Ratio 03/21/2023 022, 04/19/2021, 12/31/2017, Additional history exists HbA1c 03/21/2023 03/21/2022, 04/01, 10/06/2020, Additional history exists CKD HGB USE SMARTSET 61519 04/24/202304/24, 04/24/2022, 03/27/2022, Additional history exists TSH 05/22/2023 05/22/2022, 03/02, 04/19/2021, Additional history exists DXA Scan 07/18/2024 07/18/2022, 12/01, 05/09/2017, Additional history exists Hepatitis B Completed 03/18/2009, 05/30, 05/12/2008 Pneumococcal Vaccine: 65+ Years Completed 03/28/2015, 03/20/2010, 11/15/2004 Zoster Vaccines Completed 06/12/2021, 02/01, 11/04/2012 VITAMIN D LEVEL ONCE IN A LIFETIME-USE SMARTSET# 63858 Completed 11/06/2021, 12/28/2019, 06/24/2017, Additional history exists Influenza Vaccine (FLU shot) Completed 04/2021, 12/28/2020, 12/31/2019, Additional history exists GARDASIL-HPV IMMUNIZATION SERIES Aged Out No longer eligible based on patient's age to complete this topic MENINGOCOCCAL (MENACTRA/MENVEO) Aged Out No longer eligible based on patient's age to complete this topic documented as of this encounter Medical Devices Implanted Type Area Explosive Ordnance Specialist Device Identifier Shelf Expiration Date Model / Serial / Lot Lens Intraoc 21.5 - [id number] - [id number] Implanted:Qty: 1 on 05/12/2019 by Yury Brady MD at OR [facility] Right: Eye [employer]OM[employer] 12/30/2023 [id number] / [id number] / [id number] Lens Intraoc 22.5 - [id number] - [id number] Implanted:Qty: 1 on 04/05/2020 by Yury Brady MD at OR [facility] Left: Eye [employer]CH [employer] LOMB 09/28/2024 [id number] / [id number] / [id number] documented as of this encounter Advance Directives Documents on File Type Date Recorded 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
--- OUTSIDE RECORDS SUMMARY | 2023-02-24 09:25 | External Medical Summary | Summary of Care ---
Author Name Unknown Organization [facility] Address [address] [place] [address] Phone [phone] Care Team Providers Care Machine Woodworking Sander Name Role Phone Raaf Bergman MD Primary Care Provide r Reason for Visit * Reason Onset Date Comments case management 09/18/2022 Med Request 09/18/2022 Encounter Details Date Type Department Care Team Description 09/18/2022 Refueling Ramp Supervisor Telephone Family Medicine [address] [phone] Marbella Gandhi RN [address] [place] [id number] case management; Med Request Allergies Active Allergy Reactions Severity Noted Date Comments Colchicine Diarrhea 06/16/2018 Daptomycin 01/05/2015 Shortness of breath Imipenem Edema airway High 01/05/2015 Metoprolol Low 01/23/2021 Other reaction(s): fatigue Zoledronic Acid 04/24/2012 Myalgias, fever, chills, vomiting x 2 days Sulfa Antibiotics 12/22/2002 Bactrim--itchy all over, eyes swollen documented as of this encounter (statuses as of 09/18/2022) Medications Medication Sig Dispensed Refills Start Date [...] Tablet (Eliquis) 1 Tablet. 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 Reports it is "always" there. Goes down some overnight, but increases as the day goes on. Varies: pitting vs non pitting. Reports she used to take a "water pill", but it brought on her gout - so they discontinued that, and no one has ever offered her another one. Patient is asking if there isn't a water pill that would not cause gout flares? Please advise..... 2) Patient reports she has an insurance form that needs signed by you. Already filled out by the company, just needs your signature, verifying she was in the hospital. She will be dropping those forms off next week. Please keep you eyes open for them. Thank you. documented in this encounter Plan of Treatment Upcoming Encounters Date Type Specialty Care Team Description 09/19/2022 Office Visit Ophthalmology Pedro Tinsley DO [address] [place] [address] 10/10/2022 Hospital Encounter Endoscopy Eleni Phipps MD [address] [place] [address] 10/10/2022 Surgery Endoscopy Eleni Phipps MD [address] [place] [address] COLONOSCOPY FLEXIBLE PROXIMAL DIAGNOSTIC 11/14/2022 Office Visit Family Medicine Rafa Bergman MD [address] [place] [address] [place] [address] 11/21/2022 Office Visit Cardiology Charles Ortega DO [address] [place] [address] 12/24/2022 Nurse Only Rheumatology [place], Nurse Rheum [address] [place] [phone] 02/12/2023 [facility] [address] [place] [address] 02/22/2023 Office Visit Cardiology Charles Ortega DO [address] [place] [address] 03/06/2023 Office Visit Dermatology Kasey Nieto MD 07/05/2023 Office Visit Rheumatology Deangelo Holley MD [address] [place] [address], [place] [address] Scheduled Procedures Name Priority Associated Diagnoses Date/Ti me COLONOSCOPY FLEXIBLE PROXIMAL DIAGNOSTIC Recall Colon cancer screening 10/10/2022 9:00 AM EDT Health Maintenance Due Date Last Done Comments DTaP,Tdap,and Td Vaccines (2 - Td or Tdap) 11/02/2017 11/03/2007 COLONOSCOPY-EVERY 5 YRS AGES 18-100 02/27/2022 02/27/2017, 02/27/2017, 10/17/2004 CKD PHOS USE SMARTSET 76544 04/19/202204/01, 11/27/2019, 11/21/2018, Additional history exists COVID-19 Vaccine (7 - Moderna series) 06/05/2022 02/05/2022, 08/02/2021, 02/28/2021, Additional history exists Depression Screening, Annual for Pts 12 and Over 07/17/2022 07/17/2021 GFR 09/25/2022 03/27/2022, 03/02, 10/18/2021, Additional history exists Albumin/Creatinine Ratio 03/21/2023 022, 04/19/2021, 12/31/2017, Additional history exists HbA1c 03/21/2023 03/21/2022, 04/01, 10/06/2020, Additional history exists CKD HGB USE SMARTSET 45609 04/24/202304/24, 04/24/2022, 03/27/2022, Additional history exists TSH 05/22/2023 05/22/2022, 03/02, 04/19/2021, Additional history exists DXA Scan 07/18/2024 07/18/2022, 12/01, 05/09/2017, Additional history exists Hepatitis B Completed 03/18/2009, 05/30, 05/12/2008 Pneumococcal Vaccine: 65+ Years Completed 03/28/2015, 03/20/2010, 11/15/2004 Zoster Vaccines Completed 06/12/2021, 02/01, 11/04/2012 VITAMIN D LEVEL ONCE IN A LIFETIME-USE SMARTSET# [id number] Completed 11/06/2021, 12/28/2019, 06/24/2017, Additional history exists Influenza Vaccine (FLU shot) Completed 04/2021, 12/28/2020, 12/31/2019, Additional history exists GARDASIL-HPV IMMUNIZATION SERIES Aged Out No longer eligible based on patient's age to complete this topic MENINGOCOCCAL (MENACTRA/MENVEO) Aged Out No longer eligible based on patient's age to complete this topic documented as of this encounter Medical Devices Implanted Type Area Delinquency Counselor Device Identifier Shelf Expiration Date Model / Serial / Lot Lens Intraoc 21.5 - [id number] - [id number] Implanted:Qty: 1 on 05/12/2019 by Yury Brady MD at OR [facility] Right: Eye BA[employer]CH [employer] LOMB 12/30/2023 [id number] / [id number] / [id number] Lens Intraoc 22.5 - [id number] - [id number] Implanted:Qty: 1 on 04/05/2020 by Yury Brady MD at OR [facility] Left: Eye BAUSCH & LOMB 09/28/2024 [id number] / [id number] / [id number] documented as of this encounter Advance Directives Documents on File Type Date Recorded Patient Labor Custodian Expl anation Advance Directives and Living Will 03/11/2018 Krissy Urban ADVANCE DIR ECTIVE Healthcare Agents on File Name Relationship Healthcare Agent Relationship Communication Krissy Ordonez Adult Child Health Care Agen t (per Health Care Power of Wort Extractor document) Guille Urban Adult Child Health Care Agen t (per Health Care Power of Wort Extractor document) Care Teams Machine Woodworking Sander Relationship Specialty Start Date End Date Rafa Bergman MD [address] [place] [address] [place] [address] PCP - General Family Medicine 04/19/21 documented as of this encounter
--- OUTSIDE RECORDS SUMMARY | 2023-02-24 09:25 | External Medical Summary | Summary of Care ---
Author Name Unknown Organization [facility] Address [address] [facility] [place] [address] Phone [phone] Care Team Providers Care Chief Construction Inspector Name Role Phone Rafa Bergman MD Primary Care Provide r Reason for Visit * Reason Onset Date Comments NEW PATIENT 09/12/2022 EDGAR SEEN SOONER Encounter Details Date Type Department Care Team Description 09/12/2022 Telephone Hematology/Oncology [facility] [address] [place] [address] Iglesia Croft MD [address] [place] [address] NEW PATIENT (EDGAR SEEN SOONER) Allergies Active Allergy Reactions Severity Noted Date Comments Colchicine Diarrhea 06/16/2018 Daptomycin 01/05/2015 Shortness of breath Imipenem Edema airway High 01/05/2015 Metoprolol Low 01/23/2021 Other reaction(s): fatigue Zoledronic Acid 04/24/2012 Myalgias, fever, chills, vomiting x 2 days Sulfa Antibiotics 12/22/2002 Bactrim--itchy all over, eyes swollen documented as of this encounter (statuses as of 09/17/2022) Medications Medication Sig Dispensed Refills Start Date [...] Tablet (Eliquis) 1 Tablet. 0 09/06/2022 Active predniSONE 20 MG Oral Tablet (Deltasone)Indicat ions:Recurrent pain of both knees Take 2 Tablets by mouth in the morning for 5 days. 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 1.5 mg IJ PRN 12/19/2021 Active documented as of this encounter (statuses as of 09/17/2022) Active Problems Problem Noted Date Medical home [...] S/P angioplasty with stent 11/27/2018 Atherosclerosis of [place] co ronary artery of [place] heart without angina pectoris 07/08/2018 Arthritis [...] as of this encounter (statuses as of 09/17/2022) Resolved Problems Problem Noted Date Resolved Date [...] cava filter 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 Will try to contact patient again later today and/or tomorrow. Letter Sent * Telephone Encounter - ASHLEY Murillo - 09/12/2022 8:28 AM EDT Called patient, left message to call back to schedule new patient consultation with Dr Croft. Will try to contact patient again later today and/or tomorrow. Left message 09/10 @ 1:49pm, 09/12 @ 8:27am documented in this encounter Plan of Treatment Upcoming Encounters Date Type Specialty Care Team Description 09/19/2022 Office Visit Ophthalmology Pedro Tinsley, DO [address] [place] [address] 10/10/2022 Hospital Encounter Endoscopy Eleni Phipps MD [address] [place] [address] 10/10/2022 Surgery Endoscopy Eleni Phipps MD [address] [place] [address] COLONOSCOPY FLEXIBLE PROXIMAL DIAGNOSTIC 11/14/2022 Office Visit Family Medicine Rafa Bergman MD [address] [place] [address] [place] [address] 11/21/2022 Office Visit Cardiology Charles Ortega DO [address] [place] [address] 12/24/2022 Nurse Only Rheumatology [place], Nurse Rheum [address] [place] [phone] 02/12/2023 Cardiac Studies Cardiology [facility], [facility] [address] [place] [address] 02/22/2023 Office Visit Cardiology Charles Ortega, [address] [place] [address] 03/06/2023 Office Visit Dermatology Kasey Nieto MD 07/05/2023 Office Visit Rheumatology [facility] [address] [facility] [address] Scheduled Procedures Name Priority Associated Diagnoses Date/Ti me COLONOSCOPY FLEXIBLE PROXIMAL DIAGNOSTIC Recall Colon cancer screening 10/10/2022 9:00 AM EDT Health Maintenance Due Date Last Done Comments DTaP,Tdap,and Td Vaccines (2 - Td or Tdap) 11/02/2017 11/03/2007 COLONOSCOPY-EVERY 5 YRS AGES 18-100 02/27/2022 02/27/2017, 02/27/2017, 10/17/2004 CKD PHOS USE SMARTSET 89003 04/19/202204/01, 11/27/2019, 11/21/2018, Additional history exists COVID-19 Vaccine (7 - Moderna series) 06/05/2022 02/05/2022, 08/02/2021, 02/28/2021, Additional history exists Depression Screening, Annual for Pts 12 and Over 07/17/2022 07/17/2021 GFR 09/25/2022 03/27/2022, 03/02, 10/18/2021, Additional history exists Albumin/Creatinine Ratio 03/21/2023 022, 04/19/2021, 12/31/2017, Additional history exists HbA1c 03/21/2023 03/21/2022, 04/01, 10/06/2020, Additional history exists CKD HGB USE SMARTSET 65343 04/24/202304/24, 04/24/2022, 03/27/2022, Additional history exists TSH 05/22/2023 05/22/2022, 03/02, 04/19/2021, Additional history exists DXA Scan 07/18/2024 07/18/2022, 12/01, 05/09/2017, Additional history exists Hepatitis B Completed 03/18/2009, 05/30, 05/12/2008 Pneumococcal Vaccine: 65+ Years Completed 03/28/2015, 03/20/2010, 11/15/2004 Zoster Vaccines Completed 06/12/2021, 02/01, 11/04/2012 VITAMIN D LEVEL ONCE IN A LIFETIME-USE SMARTSET# [id number] Completed 11/06/2021, 12/28/2019, 06/24/2017, Additional history exists Influenza Vaccine (FLU shot) Completed 04/2021, 12/28/2020, 12/31/2019, Additional history exists GARDASIL-HPV IMMUNIZATION SERIES Aged Out No longer eligible based on patient's age to complete this topic MENINGOCOCCAL (MENACTRA/MENVEO) Aged Out No longer eligible based on patient's age to complete this topic documented as of this encounter Medical Devices Implanted Type Area Engraving Supervisor Device Identifier Shelf Expiration Date Model / Serial / Lot Lens Intraoc 21.5 - [id number] - [id number] Implanted:Qty: 1 on 05/12/2019 by Yury Brady MD at OR [facility] Right: Eye [employer]CH [employer] LOMB 12/30/2023 [id number] / [id number] / [id number] Lens Intraoc 22.5 - [id number] - [id number] Implanted:Qty: 1 on 04/05/2020 by Yury Brady MD at OR [facility] Left: Eye BAUSCH & LOMB 09/28/2024 [id number] / [id number] / [id number] documented as of this encounter Advance Directives Documents on File Type Date Recorded Patient Shift Coordinator Expl anation Advance Directives and Livin g Will 03/11/2018 ADVANCE DIRECTIVE Care Teams Chief Construction Inspector Relationship Specialty Start Date End Date Rafa Bergman MD [address] [place] [address] [place] [address] PCP - General Family Medicine 04/19/21 documented as of this encounter
--- OUTSIDE RECORDS SUMMARY | 2023-02-24 09:25 | External Medical Summary | Summary of Care ---
Author Name Unknown Organization [facility] Address [address] [facility] [place] [address] Phone [phone] Care Team Providers Care Station Repairer Name Role Phone Rafa Bergman MD Primary Care Provide r Reason for Visit * Reason Onset Date Comments FYI 09/07/2022 Encounter Details Date Type Department Care Team Description 09/07/2022 Telephone Family Medicine [address] [place] [phone] Rafa Bergman MD [address] [place] [address] [place] [address] FY Allergies Active Allergy Reactions Severity Noted Date Comments Colchicine Diarrhea 06/16/2018 Daptomycin 01/05/2015 Shortness of breath Imipenem Edema airway High 01/05/2015 Metoprolol Low 01/23/2021 Other reaction(s): fatigue Zoledronic Acid 04/24/2012 Myalgias, fever, chills, vomiting x 2 days Sulfa Antibiotics 12/22/2002 Bactrim--itchy all over, eyes swollen documented as of this encounter (statuses as of 09/19/2022) Medications Medication Sig Dispensed Refills Start Date [...] as of this encounter (statuses as of 09/19/2022) Active Problems Problem Noted Date Medical home [...] S/P angioplasty with stent 11/27/2018 Atherosclerosis of [place] co ronary artery of [place] heart without angina pectoris 07/08/2018 Arthritis of [...] as of this encounter (statuses as of 09/19/2022) Resolved Problems Problem Noted Date Resolved Date [...] cava filter 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 calling in stating they started the start of care and they need plan of care approval from the patient's PCP Rafa Bergman MD. Amanda sated she is going to fax the plan of care to Rafa Bergman MD for him to sign. documented in this encounter Plan of Treatment Upcoming Encounters Date Type Specialty Care Team Description 09/19/2022 Office Visit Ophthalmology Pedro Tinsley DO [address] [place] [address] 10/10/2022 Hospital Encounter Endoscopy Eleni Phipps MD [address] [place] [address] 10/10/2022 Surgery Endoscopy Eleni Phipps MD [address] [place] [address] COLONOSCOPY FLEXIBLE PROXIMAL DIAGNOSTIC 11/14/2022 Office Visit Family Medicine Rafa Bergman MD [address] [place] [address] [place] [address] 11/21/2022 Office Visit Cardiology Charles Ortega DO [address] [place] [address] 12/24/2022 Nurse Only Rheumatology [place], Nurse [address] [place] [phone] 02/12/2023 Cardiac Studies Cardiology [facility] [address] [place] [address] 02/22/2023 Office Visit Cardiology Charles Ortega DO [address] [place] [address] 03/06/2023 Office Visit Dermatology Kasey Nieto MD 07/05/2023 Office Visit Rheumatology Deangelo Holley MD [facility] [place] [address] Scheduled Procedures Name Priority Associated Diagnoses Date/Ti me COLONOSCOPY FLEXIBLE PROXIMAL DIAGNOSTIC Recall Colon cancer screening 10/10/2022 9:00 AM EDT Health Maintenance Due Date Last Done Comments DTaP,Tdap,and Td Vaccines (2 - Td or Tdap) 11/02/2017 11/03/2007 COLONOSCOPY-EVERY 5 YRS AGES 18-100 02/27/2022 02/27/2017, 02/27/2017, 10/17/2004 CKD PHOS USE SMARTSET 60288 04/19/202204/01, 11/27/2019, 11/21/2018, Additional history exists COVID-19 Vaccine (7 - Moderna series) 06/05/2022 02/05/2022, 08/02/2021, 02/28/2021, Additional history exists Depression Screening, Annual for Pts 12 and Over 07/17/2022 07/17/2021 GFR 09/25/2022 03/27/2022, 03/02, 10/18/2021, Additional history exists Albumin/Creatinine Ratio 03/21/2023 022, 04/19/2021, 12/31/2017, Additional history exists HbA1c 03/21/2023 03/21/2022, 04/01, 10/06/2020, Additional history exists CKD HGB USE SMARTSET 16744 04/24/202304/24, 04/24/2022, 03/27/2022, Additional history exists TSH 05/22/2023 05/22/2022, 03/02, 04/19/2021, Additional history exists DXA Scan 07/18/2024 07/18/2022, 12/01, 05/09/2017, Additional history exists Hepatitis B Completed 03/18/2009, 05/30, 05/12/2008 Pneumococcal Vaccine: 65+ Years Completed 03/28/2015, 03/20/2010, 11/15/2004 Zoster Vaccines Completed 06/12/2021, 02/01, 11/04/2012 VITAMIN D LEVEL ONCE IN A LIFETIME-USE SMARTSET# [id number] Completed 11/06/2021, 12/28/2019, 06/24/2017, Additional history exists Influenza Vaccine (FLU shot) Completed 04/2021, 12/28/2020, 12/31/2019, Additional history exists GARDASIL-HPV IMMUNIZATION SERIES Aged Out No longer eligible based on patient's age to complete this topic MENINGOCOCCAL (MENACTRA/MENVEO) Aged Out No longer eligible based on patient's age to complete this topic documented as of this encounter Medical Devices Implanted Type Area Computing Systems Mechanic Device Identifier Shelf Expiration Date Model / Serial / Lot Lens Intraoc 21.5 - [id number] - [id number] Implanted:Qty: 1 on 05/12/2019 by Yury Brady MD at OR [facility] Right: Eye [employer]CH [employer] LOMB 12/30/2023 [id number] / [id number] / [id number] Lens Intraoc 22.5 - [id number] - [id number] Implanted:Qty: 1 on 04/05/2020 by Yury Brady MD at OR [facility] Left: Eye BAUSCH & LOMB 09/28/2024 [id number] / [id number] / [id number] documented as of this encounter Advance Directives Documents on File Type Date Recorded Patient Court Officer Expl anation Advance Directives and Living Will 03/11/2018 Krissy Urban ADVANCE DIR ECTIVE Healthcare Agents on File Name Relationship Healthcare Agent Relationship Communication Krissy Ordonez Adult Child Health Care Agen t (per Health Care Power of Washing Machine Assembler document) Guille Urban Adult Child Health Care Agen t (per Health Care Power of Washing Machine Assembler document) Care Teams Station Repairer Relationship Specialty Start Date End Date Rafa Bergman MD [address] [place] [address] [place] [address] PCP - General Family Medicine 04/19/21 documented as of this encounter
--- OUTSIDE RECORDS SUMMARY | 2023-02-24 09:25 | External Medical Summary | Summary of Care ---
Author Name Unknown Organization [facility] Address [address] [facility] [place] [address] Phone [phone] Care Team Providers Care Roll Clamp Operator Name Role Phone Rafa Bergman MD Primary Care Provide r Reason for Visit * Reason Comments Follow Up 6-8 week Dilation wi th OCT OU. Pt states "Sometimes vision is worse then other days, I always know when its time for a shot" * Precert (Routine) - Authorized Specialty Diagnoses / Procedures Referred By Ethan nicole Referred To Contact Ophthalmology Diagnoses 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 Procedures INJECTION OF EYE DRUG AFLIBERCEPT IO SOLN, PER 1MG, INJ Pedro Tinsley DO [address] [place] [address] Referral ID Status Reason Start Date Expiration Date V isits Requested Visits Authorized [id number] Authorized Precert 11/25/2018 03/31/2099 99 99 Encounter Details Date Type Department Care Team Description 09/19/2022 Office Visit Ophthalmology, [facility] [address] [place] [address] Pedro Tinsley DO [address] [place] [address] 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*; Nevus of choroid of right eye; Retinal edema Allergies Active Allergy Reactions Severity Noted Date [...] S/P angioplasty with stent 11/27/2018 Atherosclerosis of [place] co ronary artery of [place] heart without angina pectoris 07/08/2018 Arthritis of [...] cava filter 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 Eye vitals reviewed. Mood and Affect: normal HPI: Rehana Moran is a 77 year old female who presents for RVO No other eye complaints. Denies significant pain. Base Eye Exam Visual Acuity (Snellen - Linear) Right Left Dist sc 20/60 20/25 Dist ph sc NI Tonometry (Tonopen, 1:41 PM) Right Left Pressure 10 11 Pupils Light Shape React APD Right 4 Round Brisk None Left 4 Round Brisk None Visual Toribio (Counting fingers) Right Left Full Full Extraocular Movement Right Left Full, Ortho Full, Ortho Neuro/Psych Oriented x3: Yes Mood/Affect: Normal Dilation Both eyes: 0.5% Proparacaine, 2.5% Phenylephrine, 1.0% Mydriacyl @ 1:41 PM EXTERNAL: The ocular adnexae are unremarkable. SLE: [...] 05/07/14, 03/30/14, 02/12/14, 01/08/14, 12/02/13) -s/p EYLEA (07/31/22, 06/12/22, 04/18/22, 08/29/21, 07/13/21, 03/29/21, , -05-22, 10-06-20, 08-04-20,06/02/20, 03-22-20, 01-21-20, 10/29/19, 08-13-19, 05/27/19, 11-25-18, 08-21-18, 06-12-18, 04-03-18, 01-30-18, 11/28/17, 10-03-17, 07-25-17, 05-17-2017, 03-21-17, 01-25-17, 11-30-16, 10-05-16, 07/27/16, 06-01-16, 03-16-2016, 12/06/15, 10/21/15) - 7 weeks since last injection--(pt missed appoint) --WORSE [...] Nursing Notes * Zeinab Quintero RN - 09/19/2022 1:59 PM EDT Rehana Moran to receive 41 Eylea 2mg Injection of the Right eye. Correct eye confirmed with patient and marked by Pedro Tinsley DO Eylea 2mg lot # [id number] Exp. Date: 05/2023 * JERMAIN Ford - 09/19/2022 1:36 PM EDT Rehana Moran is a 77 year old year old female who presents for 6-8 week Dilation with OCT OU. Last Office Visit: 07/31/2022 (in office), Visit date not found (telemedicine) Patient currently states "Sometimes vision is worse then other days, I always know when its time for a shot" Are you diabetic? No Do you drive? yes OCT image(s) of both eyes acquired and filed/scanned into chart. documented in this encounter Plan of Treatment Upcoming Encounters Date Type Specialty Care Team Description 10/10/2022 Hospital Encounter Endoscopy Eleni Phipps MD [address] [place] [id number] 10/10/2022 Surgery Endoscopy Eleni Phipps MD [address] [place] [id number] COLONOSCOPY FLEXIBLE PROXIMAL DIAGNOSTIC 11/13/2022 Office Visit Ophthalmology Pedro Tinsley, DO [address] [place] [address] 11/14/2022 Office Visit Family Medicine Rafa Bergman MD [address] [place] [address] [place] [address] 11/21/2022 Office Visit Cardiology Charles Ortega, DO [address] [place] [address] 12/24/2022 Nurse Only Rheumatology [place], Nurse [address] [place] [id number] 02/12/2023 Cardiac Studies Cardiology [facility] [address] [place] [address] 02/22/2023 Office Visit Cardiology Charles Ortega, DO [address] [place] [address] 03/06/2023 Office Visit Dermatology Kasey Nieto MD 07/05/2023 Office Visit Rheumatology Deangelo Holley MD [address] [facility] [place] [address] Scheduled Procedures Name Priority Associated Diagnoses Date/Ti me COLONOSCOPY FLEXIBLE PROXIMAL DIAGNOSTIC Recall Colon cancer screening 10/10/2022 9:00 AM EDT Health Maintenance Due Date Last Done Comments DTaP,Tdap,and Td Vaccines (2 - Td or Tdap) 11/02/2017 11/03/2007 COLONOSCOPY-EVERY 5 YRS AGES 18-100 02/27/2022 02/27/2017, 02/27/2017, 10/17/2004 CKD PHOS USE SMARTSET 12364 04/19/202204/01, 11/27/2019, 11/21/2018, Additional history exists COVID-19 Vaccine (7 - Moderna series) 06/05/2022 02/05/2022, 08/02/2021, 02/28/2021, Additional history exists Depression Screening, Annual for Pts 12 and Over 07/17/2022 07/17/2021 GFR 09/25/2022 03/27/2022, 03/02, 10/18/2021, Additional history exists Albumin/Creatinine Ratio 03/21/2023 022, 04/19/2021, 12/31/2017, Additional history exists HbA1c 03/21/2023 03/21/2022, 04/01, 10/06/2020, Additional history exists CKD HGB USE SMARTSET 83048 04/24/202304/24, 04/24/2022, 03/27/2022, Additional history exists TSH 05/22/2023 05/22/2022, 03/02, 04/19/2021, Additional history exists DXA Scan 07/18/2024 07/18/2022, 12/01, 05/09/2017, Additional history exists Hepatitis B Completed 03/18/2009, 05/30, 05/12/2008 Pneumococcal Vaccine: 65+ Years Completed 03/28/2015, 03/20/2010, 11/15/2004 Zoster Vaccines Completed 06/12/2021, 02/01, 11/04/2012 VITAMIN D LEVEL ONCE IN A LIFETIME-USE SMARTSET# [id number] Completed 11/06/2021, 12/28/2019, 06/24/2017, Additional history exists Influenza Vaccine (FLU shot) Completed 04/2021, 12/28/2020, 12/31/2019, Additional history exists GARDASIL-HPV IMMUNIZATION SERIES Aged Out No longer eligible based on patient's age to complete this topic MENINGOCOCCAL (MENACTRA/MENVEO) Aged Out No longer eligible based on patient's age to complete this topic documented as of this encounter Medical Devices Implanted Type Area Vocational Director Device Identifier Shelf Expiration Date Model / Serial / Lot Lens Intraoc 21.5 - [id number] - [id number] Implanted:Qty: 1 on 05/12/2019 by Yury Brady MD at OR [facility] Right: Eye [employer] 12/30/2023 [id number] / [id number] / [id number] Lens Intraoc 22.5 - [id number] - [id number] Implanted:Qty: 1 on 04/05/2020 by Yury Brady MD at OR [facility] Left: Eye [employer]OM[employer] 09/28/2024 [id number] / [id number] / [id number] documented as of this encounter Visit Diagnoses Diagnosis 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- Primary Nevus of choroid of right eye Retinal edema Colon cancer screening Special screening for malignant neoplasms, colon documented in this encounter Administered Medications Active Administered Medications - up to 3 most recent administrations Medication Order MAR Action Action Date Dose Rate Site Aflibercept (Eylea) intraviteal prefilled syringe 2 mg 2 mg, Intravitreal, PRN Other, Starting on Sat09/19/22 at 1440, Until Karime 09/19/23 at 1439, For 365 days Given 09/19/2022 2:41 PM EDT 2 mg Eye Right ROPivacaine (Naropin) inj 1.5 mg 1.5 mg, Injection, PRN Other, Starting on Sat09/19/22 at 1440, Until Karime 09/19/23 at 1439, For 365 days Given 09/19/2022 2:41 PM EDT 1.5 mg Eye Right documented in this encounter Advance Directives Documents on File Type Date Recorded 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
--- OUTSIDE RECORDS SUMMARY | 2023-02-24 09:25 | External Medical Summary | Summary of Care ---
Author Name Unknown Organization [facility] Address [address] [place] [facility] [place] [address] Phone [phone] Care Team Providers Care An Employee Sponsor Or Advocate And Name Role Phone Rafa Bergman MD Primary Care Provide r Reason for Visit * Reason Onset Date Comments NEW PATIENT 09/12/2022 EDGAR SEEN SOONER Encounter Details Date Type Department Care Team Description 09/12/2022 Telephone Hematology/Oncology [facility] [address] [place] [address] Iglesia Croft MD [address] [place] [address] NEW PATIENT (EDGAR SEEN SOONER) Allergies Active Allergy Reactions Severity Noted Date Comments Colchicine Diarrhea 06/16/2018 Daptomycin 01/05/2015 Shortness of breath Imipenem Edema airway High 01/05/2015 Metoprolol Low 01/23/2021 Other reaction(s): fatigue Zoledronic Acid 04/24/2012 Myalgias, fever, chills, vomiting x 2 days Sulfa Antibiotics 12/22/2002 Bactrim--itchy all over, eyes swollen documented as of this encounter (statuses as of 09/12/2022) Medications Medication Sig Dispensed Refills Start Date [...] for 5 days. 10 Tablet 2 09/10/2022 09/15/2022 Active Hospital, Clinic, or Other Facility Administered [...] as of this encounter (statuses as of 09/12/2022) Active Problems Problem Noted Date Tachy-chintan syndrome 09/10/2022 Atherosclerosis of coronary artery [...] 09/15/2013 Dyslipidemia, goal LDL below 70 09/16/19 HTN, goal below 140/90 03/02/2013 Senile osteoporosis 05/14/2008 documented as of this encounter (statuses as of 09/12/2022) Resolved Problems Problem Noted Date Resolved Date [...] as of this encounter (statuses as of 09/12/2022) Immunizations Name Administration Dates Next Due COVID-19 [...] Specialty Care Team Description 09/19/2022 Office Visit Family Medicine Rafa Bergman MD [address] [place] [address] [place] [phone] 09/19/2022 Laboratory Laboratory [facility] [address] [place] [address] 09/19/2022 Office Visit Ophthalmology Pedro Tinsley, DO [address] [place] [address] 10/10/2022 Hospital Encounter Endoscopy Eleni Phipps MD [address] [place] [address] 10/10/2022 Surgery Endoscopy Eleni Phipps MD [address] [place] [address] COLONOSCOPY FLEXIBLE PROXIMAL DIAGNOSTIC 11/14/2022 Office Visit Family Medicine Rafa Bergman MD [address] [place] [address] [place] [address] 11/21/2022 Office Visit Cardiology Charles Ortega, [address] [place] [address] 12/24/2022 Nurse Only Rheumatology [place], Nurse Rheum [address] [place] [phone] 02/12/2023 Cardiac Studies Cardiology [facility] [place] [place] [facility] [address] [place] [address] 02/22/2023 Office Visit Cardiology Charles Ortega, [address] [place] [address] 03/06/[address] [facility] [address] [facility] [place] [address] 07/05/2023 Office Visit Rheumatology Deangelo Holley MD [address] [facility] [place] [place] [address] Scheduled Procedures Name Priority Associated Diagnoses Date/Ti me COLONOSCOPY FLEXIBLE PROXIMAL DIAGNOSTIC Recall Colon cancer screening 10/10/2022 9:00 AM EDT Health Maintenance Due Date Last Done Comments DTaP,Tdap,and Td Vaccines (2 - Td or Tdap) 11/02/2017 11/03/2007 COLONOSCOPY-EVERY 5 YRS AGES 18-100 02/27/2022 02/27/2017, 02/27/2017, 10/17/2004 CKD PHOS USE SMARTSET 97822 04/19/202204/01, 11/27/2019, 11/21/2018, Additional history exists COVID-19 Vaccine (7 - Moderna series) 06/05/2022 02/05/2022, 08/02/2021, 02/28/2021, Additional history exists Depression Screening, Annual for Pts 12 and Over 07/17/2022 07/17/2021 GFR 09/25/2022 03/27/2022, 03/02, 10/18/2021, Additional history exists Albumin/Creatinine Ratio 03/21/2023 022, 04/19/2021, 12/31/2017, Additional history exists HbA1c 03/21/2023 03/21/2022, 04/01, 10/06/2020, Additional history exists CKD HGB USE SMARTSET 21643 04/24/202304/24, 04/24/2022, 03/27/2022, Additional history exists TSH 05/22/2023 05/22/2022, 03/02, 04/19/2021, Additional history exists DXA Scan 07/18/2024 07/18/2022, 12/01, 05/09/2017, Additional history exists Hepatitis B Completed 03/18/2009, 05/30, 05/12/2008 Pneumococcal Vaccine: 65+ Years Completed 03/28/2015, 03/20/2010, 11/15/2004 Zoster Vaccines Completed 06/12/2021, 02/01, 11/04/2012 VITAMIN D LEVEL ONCE IN A LIFETIME-USE SMARTSET# [id number] Completed 11/06/2021, 12/28/2019, 06/24/2017, Additional history exists Influenza Vaccine (FLU shot) Completed 04/2021, 12/28/2020, 12/31/2019, Additional history exists GARDASIL-HPV IMMUNIZATION SERIES Aged Out No longer eligible based on patient's age to complete this topic MENINGOCOCCAL (MENACTRA/MENVEO) Aged Out No longer eligible based on patient's age to complete this topic documented as of this encounter Medical Devices Implanted Type Area Superintendent Custodian Janitor Device Identifier Shelf Expiration Date Model / Serial / Lot Lens Intraoc 21.5 - [id number] - [id number] Implanted:Qty: 1 on 05/12/2019 by Yury Brady MD at OR [facility] Right: Eye [employer] 12/30/2023 [id number] / [id number] / [id number] Lens Intraoc 22.5 - [id number] - [id number] Implanted:Qty: 1 on 04/05/2020 by Yury Brady MD at OR [facility] Left: Eye [employer]OM[employer] 09/28/2024 [id number] / [id number] / [id number] documented as of this encounter Advance Directives Documents on File Type Date 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
--- OUTSIDE RECORDS SUMMARY | 2023-02-24 09:25 | External Medical Summary | Summary of Care ---
Author Name Unknown Organization [facility] Address [address] [place] [address] Phone [phone] Care Team Providers Care Hairspring I Inspector Name Role Phone Rafa Bergman MD Primary Care Provide r Encounter Details Date Type Department Care Team Description 09/18/2022 Senior CounselVmware Administrator Medicine [address] [phone] Marbella Gandhi RN [address] [place] [address] Medical home patient encounter*; Bilateral pulmonary embolism (HCC); History of DVT (deep vein thrombosis); Respiratory failure with hypoxia (HCC); Diverticulitis; Astrovirus gastroenteritis; Advanced care planning/counseling discussion Allergies Active Allergy Reactions Severity Noted Date [...] S/P angioplasty with stent 11/27/2018 Atherosclerosis of [place] co ronary artery of [place] heart without angina pectoris 07/08/2018 Arthritis of [...] cava filter 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 Verified patient name/. Advised patient that call is beingrecorded for quality and training purposes. Assessment: Pt. noted the following: alert, oriented, pleasant. Lives in an apartment, next door to her daughter. Independent with most ADL's, needs her daughter for stand- by assist with showering, or to stand back up from using the toilet, etc. Needs assist with IADL's. Reports she is "starting to function again", "slowly happening". Offered referral for home physical therapy - declined. "Why would I need that?" Informed her it would help with regaining her strength and being able to perform ADL's again.Declined. States she is slowly improving on her own. Denies dizziness or unsteadiness with walking.Denies falls. Is active for home health nursing only, through [facility]. Reports nurse is coming around [facility] today. No reports of chest pain. Reports she "always" has edema in bilateral lower extremities. Goes down some overnight, increases as the day goes on. Currently - non pitting. Equal swelling in both legs. Sometimes goes as high as the calves. Were reddened, but that is better now. Used to take a "water pill", but it was discontinued when it was causing her gout to flare. CM to discuss with PCP regarding any diuretics that would not increase her gout. Denies feeling feverish. Denies shortness of breath or cough. Never smoked. Patient cancelled her dermatology appointment scheduled for today - related to a "spot on my cheek". Reports she has been getting it treated, but it doesn't seem to help, and insurance doesn't cover the treatment. Reports first time she had topay $200 out of pocket, 2nd time she had to pay $75 out of pocket. Reports "it can wait", even if they cannot get her back in for several months. "I can cover it with make up, but I don't like to do that." Bowels moving. Denies any further diarrhea. No signs of old/new blood in stool. Last BM was this morning. No reported issues with voiding. Denies pain "anywhere". Appetite/intake good. "I eat like a big pig." Discussed 'diverticulitis diet', and foods to avoid. Reports she already researched it on the computer, and is following its recommendations. Does not weigh self at home. Reports her normal weight as 158- 159 lbs. Initiated discussion on Advance Directives. Already completed and copy available in chart. Confirmed with patient that health care agents, Krissy and Guille (daughter and son), are still current. Taking meds as ordered, not causing any issues. YES. Confirmed eye appointment for later today and colonoscopy on 10/10/22, PCP appointment in October. Did have a PCP appointment scheduled for tomorrow - patient states PCP told her she could cancel it as he just saw her on 09/10/22. Patient had been offered [email or web address] after discharge - declined. Did you receive an alert for an annual wellness visit? No Is this call for a hospital, jail or rehab facility discharge to home? Yes - patient had been inpatient at [facility] from 08/18/22 - 08/31/22. Discharge dx: diverticulitis with microperforation, gastroenteritis due to the astrovirus. Patient was re-admitted to [facility] from 09/02/22 - 09/06/22. Discharge dx: bilateral pulmonary emboli, LLE DVT, hypoxic respiratory failure due to PE. Medication Reconciliation: Medication Reconciliation completed: no. Only partial med rec. Review of Current goals: Discussed the following patient-centered CM goals with the patient during this discussion: -Prevention: Prevent admission/readmission -Status: At Risk - had 2 admissions between 08/18/22 and 09/06/22. PCP follow up appointment kept on 09/10/22. Taking medications as ordered. Participating with home health. Receptive to participation with case management. -RESPIRATORY: Patient/caregiver will monitor for exacerbation of respiratory condition and treat accordingly -Status: On Track - currently denies shortness of breath or cough. Taking Eliquis - related to bilateral pulmonary emboli. -GI: Patient will have GI issues addressed -Status: On Track - patient following diverticulitis diet. Scheduled for colonoscopy 10/10/22. Has loperamide ordered, if needed. COPD Patient: No CHF Patient: NO CM Plan: Reviewed 3 Red Flags with patient. Advised to call CM with any of the following: Red Flag 1: increased shortness of breath, Red Flag 2: diarrhea/abdominal pain or Red Flag 3: falls or injuries, Senior Counsel will follow-up with PCP regarding patient request for a diuretic that will not contribute toher gout flares. and Referral to: [facility] for home visit, home safety assessment, bottles out med rec, v ital signs including pulse ox. . Remote Patient Monitoring: At this time, RPM not offered/considered for patient due to no indicated need at this time. . Plan for Future Contacts: Plan to follow up within 1 week to check progress on the following goals/needs - regaining strength, able to perform ADL's? Diuretic from PCP? Edema status. Outcome of eye appointment. . Planned contacts from the following parties will occur this week: Specialty Visit as additional contacts per workflow. Advancement/Closure Plan: Keep patient at current Tier with reassessment per workflow. Patient provided CM contact information and encouraged to call with any changes in condition. SNP Member? No PCP Notified of enrollment in CM/HM program: Yes, previously. Is Provider in agreement with POC? Yes Marbella Gandhi RN Outpatient Case Management documented in this encounter Miscellaneous Notes * ACP (Advance Care Planning) - Marbella Gandhi RN - 09/18/2022 11:03 AM EDT Images from the original note were not included. Patient-centered Communication 09/18/2022 The patient/surrogate voluntarily agreed to participate in advance care planning discussion. Location: telephone Individual(s) present for conversation: Patient Decisions Additional Comments Synopsis [employer] Most Recent Value Past ~10 years 09/18/2022 11:07 Additional Comments Additional Comments: Advance Directives already completed, copy available in chart. Krissy José Luis and Guille Wilmar listed as Health Care Agents. Confirmed with patient that this is still correct/current. Reports this is her son and daughter. No changes need made. 09/18/2022 Advance Directives already completed, copy available in chart. Krissy José Luis and Guille Wilmar listed as Health Care Agents. Confirmed with patient that this is still correct/current. Reports this is her son and daughter. No changes need made. Discerning What Matters Most to the Patient: Synopsis [employer] Most Recent Value Past ~10 years 09/18/2022 11:06 Discerning What Matters Most to the Patient Was PROGNOSIS discussed? No 09/18/2022 No Source: Content from Respecting Choices Program Aligning Care With What Matters Most: No data to display Rationale for Decisions Source: Content from Respecting Choices Program 3-5 minutes spent in direct [id number] discussion today, Marbella Gandhi RN documented in this encounter Plan of Treatment Upcoming Encounters Date Type Specialty Care Team Description 09/19/2022 Office Visit Ophthalmology Pedro Tinsley DO [address] [place] [address] 10/10/2022 Hospital Encounter Endoscopy Eleni Phipps MD [address] [place] [address] 10/10/2022 Surgery Endoscopy Eleni Phipps MD [address] [place] [address] COLONOSCOPY FLEXIBLE PROXIMAL DIAGNOSTIC 11/14/2022 Office Visit Family Medicine Rafa Bergman MD [address] [place] [address] [place] [address] 11/21/2022 Office Visit Cardiology Charles Ortega DO [address] [place] [address] 12/24/2022 Nurse Only Rheumatology [facility] [address] [place] [phone] 02/12/2023 Cardiac Studies Cardiology [facility] [address] [place] [address] 02/22/2023 Office Visit Cardiology Charles Ortega DO [address] [place] [address] 03/06/2023 Office Visit Dermatology Kasey Nieto MD 07/05/2023 Office Visit Rheumatology Deangelo Holley MD [address] [place] [address], [place] [address] Scheduled Procedures Name Priority Associated Diagnoses Date/Ti me COLONOSCOPY FLEXIBLE PROXIMAL DIAGNOSTIC Recall Colon cancer screening 10/10/2022 9:00 AM EDT Health Maintenance Due Date Last Done Comments DTaP,Tdap,and Td Vaccines (2 - Td or Tdap) 11/02/2017 11/03/2007 COLONOSCOPY-EVERY 5 YRS AGES 18-100 02/27/2022 02/27/2017, 02/27/2017, 10/17/2004 CKD PHOS USE SMARTSET 36352 04/19/202204/01, 11/27/2019, 11/21/2018, Additional history exists COVID-19 Vaccine (7 - Moderna series) 06/05/2022 02/05/2022, 08/02/2021, 02/28/2021, Additional history exists Depression Screening, Annual for Pts 12 and Over 07/17/2022 07/17/2021 GFR 09/25/2022 03/27/2022, 03/02, 10/18/2021, Additional history exists Albumin/Creatinine Ratio 03/21/2023 022, 04/19/2021, 12/31/2017, Additional history exists HbA1c 03/21/2023 03/21/2022, 04/01, 10/06/2020, Additional history exists CKD HGB USE SMARTSET 32988 04/24/202304/24, 04/24/2022, 03/27/2022, Additional history exists TSH 05/22/2023 05/22/2022, 03/02, 04/19/2021, Additional history exists DXA Scan 07/18/2024 07/18/2022, 12/01, 05/09/2017, Additional history exists Hepatitis B Completed 03/18/2009, 05/30, 05/12/2008 Pneumococcal Vaccine: 65+ Years Completed 03/28/2015, 03/20/2010, 11/15/2004 Zoster Vaccines Completed 06/12/2021, 02/01, 11/04/2012 VITAMIN D LEVEL ONCE IN A LIFETIME-USE SMARTSET# [id number] Completed 11/06/2021, 12/28/2019, 06/24/2017, Additional history exists Influenza Vaccine (FLU shot) Completed 04/2021, 12/28/2020, 12/31/2019, Additional history exists GARDASIL-HPV IMMUNIZATION SERIES Aged Out No longer eligible based on patient's age to complete this topic MENINGOCOCCAL (MENACTRA/MENVEO) Aged Out No longer eligible based on patient's age to complete this topic documented as of this encounter Medical Devices Implanted Type Area Sewer And Drain Technician Device Identifier Shelf Expiration Date Model / Serial / Lot Lens Intraoc 21.5 - [id number] - [id number] Implanted:Qty: 1 on 05/12/2019 by Yury Brady MD at [facility] Right: Eye [employer] 12/30/2023 [id number] / [id number] / [id number] Lens Intraoc 22.5 - [id number] - [id number] Implanted:Qty: 1 on 04/05/2020 by Yury Brady MD at [facility] Left: Eye [employer]OM[employer] 09/28/2024 [id number] / [id number] / [id number] documented as of this encounter Visit Diagnoses Diagnosis Medical home patient encounter- Primary Other specified examination Bilateral pulmonary embolism (HCC) Other pulmonary embolism and infarction History of DVT (deep vein thrombosis) Personal history of venous thrombosis and embolism Respiratory failure with hypoxia (HCC) Acute respiratory failure Diverticulitis Diverticulitis of colon (without mention of hemorrhage) 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 Advanced care planning/counseling discussion Other specified counseling Colon cancer screening Special screening for malignant neoplasms, colon documented in this encounter Advance Directives Documents on File Type Date Recorded Patient Informatics Educator Expl anation Advance Directives and Living Will 03/11/2018 Krissy Urban ADVANCE DIR ECTIVE Healthcare Agents on File Name Relationship Healthcare Agent Relationship Communication Krissy Ordonez Adult Child Health Care Agen t (per Health Care Power of Dredge Master document) Guille Urban Adult Child Health Care Agen t (per Health Care Power of Dredge Master document) Care Teams Hairspring I Inspector Relationship Specialty Start Date End Date Rafa Bergman MD [address] [place] [address] [place] [address] PCP - General Family Medicine 04/19/21 documented as of this encounter
--- OUTSIDE RECORDS SUMMARY | 2023-02-24 09:25 | External Medical Summary | Summary of Care ---
Author Name Unknown Organization [facility] Address [address] [place] [address] Phone [phone] Care Team Providers Care Washcoat Wiper Name Role Phone Rafa Bergman MD Primary Care Provide r Reason for Visit * Reason Onset Date Comments case management 09/14/2022 Encounter Details Date Type Department Care Team Description 09/14/2022 Data Operations Manager Telephone Family Practice [facility] [address] [facility] [place] [address] Jessi La, timber management professor Allergies Active Allergy Reactions Severity Noted Date Comments Colchicine Diarrhea 06/16/2018 Daptomycin 01/05/2015 Shortness of breath Imipenem Edema airway High 01/05/2015 Metoprolol Low 01/23/2021 Other reaction(s): fatigue Zoledronic Acid 04/24/2012 Myalgias, fever, chills, vomiting x 2 days Sulfa Antibiotics 12/22/2002 Bactrim--itchy all over, eyes swollen documented as of this encounter (statuses as of 09/14/2022) Medications Medication Sig Dispensed Refills Start Date [...] as of this encounter (statuses as of 09/14/2022) Active Problems Problem Noted Date Medical home [...] S/P angioplasty with stent 11/27/2018 Atherosclerosis of [place] co ronary artery of [place] heart without angina pectoris 07/08/2018 Arthritis of [...] as of this encounter (statuses as of 09/14/2022) Resolved Problems Problem Noted Date Resolved Date [...] cava filter 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 Verified patient name/. Advised patient that call is being recorded for quality and training purposes. Assessment: Very pleasant, alert and oriented. Noted the following: She is "slowly but surely improving". Rossi HAN have been in to visit and plan to come next week. Patient has started her eliquis. Had beenhospitalized with diverticulitis in July, feels this period of decreased mobility may have contributed todevelopment of PE's. Lives in apartment next to daughter. Is independent with ADLs and iADLs. Daughter next door if she would need any assistance. Has home blood pressure cuff, no pulse ox. Did not qualify for home oxygen in the hospital. Denies any SOB or cough, though did have this prior to ho spitalization. Had taken eliquis in the past, but developed nose bleeds after approx 6 months. Has not had concerns of this from the medication with current use. Has some lower extremity edema, contributes this to flare of gout after hospitalization as well. Has another day left of prednisone whichhas helped. Appetite is slowly returning. Denies any abd pain or diarrhea. Had no prior episodes ofdiverticulitis in the past. Did you receive an alert for an annual wellness visit? No Is this call for a hospital, fpc or rehab facility discharge to home? Yes [facility] 09/02 - 09/06 Medication Reconciliation: Medication Reconciliation completed: at office visit on 09/10, no changes since this time Review of Current goals: Discussed the following patient-centered CM goals with the patient during this discussion: -Activity: Patient will increase activity or maintain level as tolerated -Status: On Track patient slowly gaining cezar strength and appetite. -RESPIRATORY: Patient/caregiver will monitor for exacerbation of respiratory condition and treat accordingly -Status: On Track patient taking eliquis and monitoring symptoms. -GI: Patient will have GI issues addressed -Status: On Track no signs of diverticulitis. COPD Patient: No CHF Patient: NO CM Plan: Reviewed 3 Red Flags with patient. Advised to call CM with any of the following: Red Flag 1: SOB, Cough, weakness or pain Remote Patient Monitoring: At this time, RPM not offered/considered for patient due to defer to primary CM upon return. Plan for Future Contacts: Plan to follow up within 1 week to check progress on the following goals/needs cardio-pulmonary status. Planned contacts from the following parties will occur this week: PCP office visit and HH as additional contacts per workflow. Advancement/Closure Plan: Keep patient at current Tier with reassessment per workflow. Patient provided CM contact information and encouraged to call with any changes in condition. SNP Member? No PCP Notified of enrollment in CM/HM program: Yes Is Provider in agreement with POC? Yes Jessi La RN Outpatient Case Management documented in this encounter Plan of Treatment Upcoming Encounters Date Type Specialty Care Team Description 09/19/2022 Office Visit Ophthalmology Pedro Tinsley DO [address] [place] [address] 10/10/2022 Hospital Encounter Endoscopy Eleni Phipps MD [address] [place] [address] 10/10/2022 Surgery Endoscopy Eleni Phipps MD [address] [place] [address] COLONOSCOPY FLEXIBLE PROXIMAL DIAGNOSTIC 11/14/2022 Office Visit Family Medicine Rafa Bergman MD [address] [place] [address] [place] [address] 11/21/2022 Office Visit Cardiology Charles Ortega DO [address] [place] [address] 12/24/2022 Nurse Only Rheumatology Yon, Nurse Scott [address] [place] [phone] 02/12/2023 Cardiac Studies Cardiology [facility] [address] [place] [address] 02/22/2023 Office Visit Cardiology Charles Ortega DO [address] [place] [address] 03/06/2023 Office Visit Dermatology Kasey Nieto MD 07/05/2023 Office Visit Rheumatology Deangelo Holley MD [address] [place] [address], [place] [address] Scheduled Procedures Name Priority Associated Diagnoses Date/Ti me COLONOSCOPY FLEXIBLE PROXIMAL DIAGNOSTIC Recall Colon cancer screening 10/10/2022 9:00 AM EDT Health Maintenance Due Date Last Done Comments DTaP,Tdap,and Td Vaccines (2 - Td or Tdap) 11/02/2017 11/03/2007 COLONOSCOPY-EVERY 5 YRS AGES 18-100 02/27/2022 02/27/2017, 02/27/2017, 10/17/2004 CKD PHOS USE SMARTSET 88676 04/19/202204/01, 11/27/2019, 11/21/2018, Additional history exists COVID-19 Vaccine (7 - Moderna series) 06/05/2022 02/05/2022, 08/02/2021, 02/28/2021, Additional history exists Depression Screening, Annual for Pts 12 and Over 07/17/2022 07/17/2021 GFR 09/25/2022 03/27/2022, 03/02, 10/18/2021, Additional history exists Albumin/Creatinine Ratio 03/21/2023 022, 04/19/2021, 12/31/2017, Additional history exists HbA1c 03/21/2023 03/21/2022, 04/01, 10/06/2020, Additional history exists CKD HGB USE SMARTSET 31957 04/24/202304/24, 04/24/2022, 03/27/2022, Additional history exists TSH 05/22/2023 05/22/2022, 03/02, 04/19/2021, Additional history exists DXA Scan 07/18/2024 07/18/2022, 12/01, 05/09/2017, Additional history exists Hepatitis B Completed 03/18/2009, 05/30, 05/12/2008 Pneumococcal Vaccine: 65+ Years Completed 03/28/2015, 03/20/2010, 11/15/2004 Zoster Vaccines Completed 06/12/2021, 02/01, 11/04/2012 VITAMIN D LEVEL ONCE IN A LIFETIME-USE SMARTSET# [id number] Completed 11/06/2021, 12/28/2019, 06/24/2017, Additional history exists Influenza Vaccine (FLU shot) Completed 04/2021, 12/28/2020, 12/31/2019, Additional history exists GARDASIL-HPV IMMUNIZATION SERIES Aged Out No longer eligible based on patient's age to complete this topic MENINGOCOCCAL (MENACTRA/MENVEO) Aged Out No longer eligible based on patient's age to complete this topic documented as of this encounter Medical Devices Implanted Type Area Ship'S Officer Device Identifier Shelf Expiration Date Model / Serial / Lot Lens Intraoc 21.5 - [id number] - [id number] Implanted:Qty: 1 on 05/12/2019 by Yury Brady MD at OR [facility] Right: Eye [employer] 12/30/2023 [id number] / [id number] / [id number] Lens Intraoc 22.5 - [id number] - [id number] Implanted:Qty: 1 on 04/05/2020 by Yury Brady MD at OR [facility] Left: Eye [employer]OM[employer] 09/28/2024 [id number] / [id number] / [id number] documented as of this encounter Advance Directives Documents on File Type Date Recorded Patient Leather Stretcher Expl anation Advance Directives and Livin g Will 03/11/2018 ADVANCE DIRECTIVE Care Teams Washcoat Wiper Relationship Specialty Start Date End Date Rafa Bergman MD [address] [place] [address] [place] [address] PCP - General Family Medicine 04/19/21 documented as of this encounter
--- OUTSIDE RECORDS SUMMARY | 2023-02-24 09:25 | External Medical Summary | Summary of Care ---
Author Name Unknown Organization [facility] Address [address] [place] [address] Phone [phone] Care Team Providers Care Technical Support Internship Name Role Phone Rafa Bergman MD Primary Care Provide r Reason for Visit * Reason Onset Date Comments FYI 09/11/2022 Encounter Details Date Type Department Care Team Description 09/11/2022 Telephone Family Medicine [address] [place] [phone] Rafa Bergman MD [address] [place] [address] [place] [address] FYI Allergies Active Allergy Reactions Severity Noted Date Comments Colchicine Diarrhea 06/16/2018 Daptomycin 01/05/2015 Shortness of breath Imipenem Edema airway High 01/05/2015 Metoprolol Low 01/23/2021 Other reaction(s): fatigue Zoledronic Acid 04/24/2012 Myalgias, fever, chills, vomiting x 2 days Sulfa Antibiotics 12/22/2002 Bactrim--itchy all over, eyes swollen documented as of this encounter (statuses as of 09/11/2022) Medications Medication Sig Dispensed Refills Start Date [...] as of this encounter (statuses as of 09/11/2022) Active Problems Problem Noted Date Tachy-chintan syndrome [...] S/P angioplasty with stent 11/27/2018 Atherosclerosis of [place] co ronary artery of [place] heart without angina pectoris 07/08/2018 Arthritis of [...] as of this encounter (statuses as of 09/11/2022) Resolved Problems Problem Noted Date Resolved Date [...] cava filter 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 07/08/2018 CKD (chronic kidney disease) stage 2, GFR 60-89 ml/min 03/12/2019 documented as of this encounter (statuses as of 09/11/2022) Immunizations Name Administration Dates Next Due COVID-19 [...] encounter Miscellaneous Notes * Telephone Encounter - Thu Peter LPN - 09/11/2022 10:52 AM EDT Epic 178 referral received and processed to RN SHAGUFTA Gandhi per the NSL (Nurse Site List) as referred by @H staff via Ho documented in this encounter Plan of Treatment Upcoming Encounters Date Type Specialty Care Team Description 09/19/2022 Office Visit Family Medicine Rafa Bergman MD [address] [place] [address] [place] [address] 09/19/2022 Laboratory Laboratory [place], Lab [address] [place] [address] 09/19/2022 Office Visit Ophthalmology Pedro Tinsley, DO [address] [place] [address] 10/10/2022 Hospital Encounter Endoscopy Eleni Phipps MD [address] [place] [address] 10/10/2022 Surgery Endoscopy Eleni Phipps MD [address] [place] [address] COLONOSCOPY FLEXIBLE PROXIMAL DIAGNOSTIC 11/14/2022 Office Visit Family Medicine Rafa Bergman MD [address] [place] [address] [place] [address] 11/21/2022 Office Visit Cardiology Charles Ortega DO [address] [place] [address] 12/24/2022 Nurse Only Rheumatology [place], Nurse Rheum [address] [place] [phone] 02/12/2023 Cardiac Studies Cardiology [place], Pacer [facility] [address] [place] [address] 02/22/2023 Office Visit Cardiology Charles Ortega DO [address] [place] [address] 03/06/2023 Office Visit Dermatology Kasey Nieto MD [address] [facility], [place] [address] 07/05/2023 Office Visit Rheumatology Deangelo Holley MD [address] [facility], [place] [address] Scheduled Procedures Name Priority Associated Diagnoses Date/Ti me COLONOSCOPY FLEXIBLE PROXIMAL DIAGNOSTIC Recall Colon cancer screening 10/10/2022 9:00 AM EDT Health Maintenance Due Date Last Done Comments DTaP,Tdap,and Td Vaccines (2 - Td or Tdap) 11/02/2017 11/03/2007 COLONOSCOPY-EVERY 5 YRS AGES 18-100 02/27/2022 02/27/2017, 02/27/2017, 10/17/2004 CKD PHOS USE SMARTSET 32389 04/19/202204/01, 11/27/2019, 11/21/2018, Additional history exists COVID-19 Vaccine (7 - Moderna series) 06/05/2022 02/05/2022, 08/02/2021, 02/28/2021, Additional history exists Depression Screening, Annual for Pts 12 and Over 07/17/2022 07/17/2021 GFR 09/25/2022 03/27/2022, 03/02, 10/18/2021, Additional history exists Albumin/Creatinine Ratio 03/21/2023 022, 04/19/2021, 12/31/2017, Additional history exists HbA1c 03/21/2023 03/21/2022, 04/01, 10/06/2020, Additional history exists CKD HGB USE SMARTSET 00487 04/24/202304/24, 04/24/2022, 03/27/2022, Additional history exists TSH 05/22/2023 05/22/2022, 03/02, 04/19/2021, Additional history exists DXA Scan 07/18/2024 07/18/2022, 12/01, 05/09/2017, Additional history exists Hepatitis B Completed 03/18/2009, 05/30, 05/12/2008 Pneumococcal Vaccine: 65+ Years Completed 03/28/2015, 03/20/2010, 11/15/2004 Zoster Vaccines Completed 06/12/2021, 02/01, 11/04/2012 VITAMIN D LEVEL ONCE IN A LIFETIME-USE SMARTSET# [id number] Completed 11/06/2021, 12/28/2019, 06/24/2017, Additional history exists Influenza Vaccine (FLU shot) Completed 04/2021, 12/28/2020, 12/31/2019, Additional history exists GARDASIL-HPV IMMUNIZATION SERIES Aged Out No longer eligible based on patient's age to complete this topic MENINGOCOCCAL (MENACTRA/MENVEO) Aged Out No longer eligible based on patient's age to complete this topic documented as of this encounter Medical Devices Implanted Type Area Linotyper Device Identifier Shelf Expiration Date Model / Serial / Lot Lens Intraoc 21.5 - [id number] - [id number] Implanted:Qty: 1 on 05/12/2019 by Yury Brady MD at OR [facility] Right: Eye [employer] 12/30/2023 [id number] / [id number] / [id number] Lens Intraoc 22.5 - [id number] - [id number] Implanted:Qty: 1 on 04/05/2020 by Yury Brady MD at OR [facility] Left: Eye [employer]OM[employer] 09/28/2024 [id number] / [id number] / [id number] documented as of this encounter Advance Directives Documents on File Type Date Recorded 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
--- OUTSIDE RECORDS SUMMARY | 2023-02-24 09:25 | External Medical Summary | Summary of Care ---
Author Name Unknown Organization [facility] [address] [facility] [address] Phone [phone] Care Team Providers Care Pizza Delivery Driver Name Role Phone Rafa Bergman MD Primary Care Provide r Reason for Visit * Reason Comments case management Encounter Details Date Type Department Care Team Description 09/13/2022 [facility] [address] [place] [address] Jessi La, RN Medical home patient encounter* Allergies Active Allergy Reactions Severity Noted Date Comments Colchicine Diarrhea 06/16/2018 Daptomycin 01/05/2015 Shortness of breath Imipenem Edema airway High 01/05/2015 Metoprolol Low 01/23/2021 Other reaction(s): fatigue Zoledronic Acid 04/24/2012 Myalgias, fever, chills, vomiting x 2 days Sulfa Antibiotics 12/22/2002 Bactrim--itchy all over, eyes swollen documented as of this encounter (statuses as of 09/13/2022) Medications Medication Sig Dispensed Refills Start Date [...] as of this encounter (statuses as of 09/13/2022) Active Problems Problem Noted Date Medical home [...] as of this encounter (statuses as of 09/13/2022) Resolved Problems Problem Noted Date Resolved Date [...] as of this encounter (statuses as of 09/13/2022) Immunizations Name Administration Dates Next Due COVID-19 [...] as of this encounter Progress Notes * Jessi La RN - 09/13/2022 3:14 PM EDT 1. Follow-up Post Discharge 2. Attempted Phone Call First Attempt 3. Call Outcome Unable to Leave Message 4. Plan To attempt another outreach documented in this encounter Plan of Treatment Upcoming Encounters Date Type Specialty Care Team Description 09/19/2022 Office Visit Ophthalmology Pedro Tinsley, DO [address] [place] [address] 10/10/2022 Hospital Encounter Endoscopy Eleni Phipps MD [address] [place] [address] 10/10/2022 Surgery Endoscopy Eleni Phipps MD [address] [place] [address] COLONOSCOPY FLEXIBLE PROXIMAL DIAGNOSTIC 11/14/2022 Office Visit Family Medicine Rafa Bergman MD [address] [place] [address] [place] [address] 11/21/2022 Office Visit Cardiology Charles Ortega DO [address] [place] [address] 12/24/2022 Nurse Only Rheumatology [place], Nurse [place] [address] [place] [phone] 02/12/2023 Cardiac Studies Cardiology [place], Pacer [facility] [address] [place] [address] 02/22/2023 Office Visit Cardiology Charles Ortega DO [address] [place] [address] 03/06/2023 Office Visit Dermatology Kasey Nieto MD 07/05/2023 Office Visit Rheumatology Deangelo Holley MD [address] [place] [address], [place] [address] Scheduled Procedures Name Priority Associated Diagnoses Date/Ti me COLONOSCOPY FLEXIBLE PROXIMAL DIAGNOSTIC Recall Colon cancer screening 10/10/2022 9:00 AM EDT Health Maintenance Due Date Last Done Comments DTaP,Tdap,and Td Vaccines (2 - Td or Tdap) 11/02/2017 11/03/2007 COLONOSCOPY-EVERY 5 YRS AGES 18-100 02/27/2022 02/27/2017, 02/27/2017, 10/17/2004 CKD PHOS USE SMARTSET 73568 04/19/202204/01, 11/27/2019, 11/21/2018, Additional history exists COVID-19 Vaccine (7 - Moderna series) 06/05/2022 02/05/2022, 08/02/2021, 02/28/2021, Additional history exists Depression Screening, Annual for Pts 12 and Over 07/17/2022 07/17/2021 GFR 09/25/2022 03/27/2022, 03/02, 10/18/2021, Additional history exists Albumin/Creatinine Ratio 03/21/2023 022, 04/19/2021, 12/31/2017, Additional history exists HbA1c 03/21/2023 03/21/2022, 04/01, 10/06/2020, Additional history exists CKD HGB USE SMARTSET 58325 04/24/202304/24, 04/24/2022, 03/27/2022, Additional history exists TSH 05/22/2023 05/22/2022, 03/02, 04/19/2021, Additional history exists DXA Scan 07/18/2024 07/18/2022, 12/01, 05/09/2017, Additional history exists Hepatitis B Completed 03/18/2009, 05/30, 05/12/2008 Pneumococcal Vaccine: 65+ Years Completed 03/28/2015, 03/20/2010, 11/15/2004 Zoster Vaccines Completed 06/12/2021, 02/01, 11/04/2012 VITAMIN D LEVEL ONCE IN A LIFETIME-USE SMARTSET# [id number] Completed 11/06/2021, 12/28/2019, 06/24/2017, Additional history exists Influenza Vaccine (FLU shot) Completed 04/2021, 12/28/2020, 12/31/2019, Additional history exists GARDASIL-HPV IMMUNIZATION SERIES Aged Out No longer eligible based on patient's age to complete this topic MENINGOCOCCAL (MENACTRA/MENVEO) Aged Out No longer eligible based on patient's age to complete this topic documented as of this encounter Medical Devices Implanted Type Area Lubricating Machine Tender Device Identifier Shelf Expiration Date Model / Serial / Lot Lens Intraoc 21.5 - [id number] - [id number] Implanted:Qty: 1 on 05/12/2019 by Yury Brady MD at OR [facility] Right: Eye [employer] 12/30/2023 [id number] / [id number] / [id number] Lens Intraoc 22.5 - [id number] - [id number] Implanted:Qty: 1 on 04/05/2020 by Yury Brady MD at OR [facility] Left: Eye [employer]OMB 09/28/2024 [id number] / [id number] / [id number] documented as of this encounter Visit Diagnoses Diagnosis Medical home patient encounter- Primary Other specified examination Colon cancer screening Special screening for malignant neoplasms, colon documented in this encounter Advance Directives Documents on File Type Date Recorded Patient Adult Services Librarian Expl anation Advance Directives and Livin g Will 03/11/2018 ADVANCE DIRECTIVE Care Teams Pizza Delivery Driver Relationship Specialty Start Date End Date Rafa Bergman MD [address] [place] [address] [place] [phone] PCP - General Family Medicine 04/19/21 documented as of this encounter
--- OUTSIDE RECORDS SUMMARY | 2023-02-24 09:25 | External Medical Summary | Summary of Care ---
Author Name Unknown Organization [facility] Address [address] [place] [address] Phone [phone] Care Team Providers Care Weatherization Operations Manager Name Role Phone Rafa Bergman MD Primary Care Provide r Reason for Visit * Reason Onset Date Comments Home Health 09/21/2022 Update Encounter Details Date Type Department Care Team Description 09/21/2022 Telephone Family Medicine [address] [place] [phone] Rafa Bergman MD [address] [place] [address] [place] [address] Home Health (Update ) Allergies Active Allergy Reactions Severity Noted Date Comments Colchicine Diarrhea 06/16/2018 Daptomycin 01/05/2015 Shortness of breath Imipenem Edema airway High 01/05/2015 Metoprolol Low 01/23/2021 Other reaction(s): fatigue Zoledronic Acid 04/24/2012 Myalgias, fever, chills, vomiting x 2 days Sulfa Antibiotics 12/22/2002 Bactrim--itchy all over, eyes swollen documented as of this encounter (statuses as of 09/21/2022) Medications Medication Sig Dispensed Refills Start Date [...] as of this encounter (statuses as of 09/21/2022) Active Problems Problem Noted Date Medical home [...] S/P angioplasty with stent 11/27/2018 Atherosclerosis of [place] co ronary artery of [place] heart without angina pectoris 07/08/2018 Arthritis of [...] as of this encounter (statuses as of 09/21/2022) Resolved Problems Problem Noted Date Resolved Date [...] cava filter 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 She saw patient yesterday. Sent a fax to the office last evening with an update. Left lower quadrant since Marjan. Crampy intermittent discomfort. Nausea. Diarrhea. Diverticulitis while [...] [address] [place] [address] 10/10/2022 Surgery Endoscopy Eleni Phipps MD [address] [place] [address] COLONOSCOPY FLEXIBLE PROXIMAL DIAGNOSTIC 11/13/2022 Office Visit Ophthalmology Pedro Tinsley, DO [address] [place] [address] 11/14/2022 Office Visit Family Medicine Rafa Bergman MD [address] [place] [address] [place] [address] 11/21/2022 Office Visit Cardiology Charles Ortega, DO [address] [place] [address] 12/24/2022 Nurse Only Rheumatology [place], Nurse Rheum [address] [place] [phone] 02/12/2023 [facility] [address] [place] [address] 02/22/2023 Office Visit Cardiology Charles Ortega DO [address] [place] [address] 03/06/2023 Office Visit Dermatology Kasey Nieto MD 07/05/2023 Office Visit Rheumatology Deangelo Holley MD [address] [place] [address] Scheduled Procedures Name Priority Associated Diagnoses Date/Ti me COLONOSCOPY FLEXIBLE PROXIMAL DIAGNOSTIC Recall Colon cancer screening 10/10/2022 9:00 AM EDT Health Maintenance Due Date Last Done Comments DTaP,Tdap,and Td Vaccines (2 - Td or Tdap) 11/02/2017 11/03/2007 COLONOSCOPY-EVERY 5 YRS AGES 18-100 02/27/2022 02/27/2017, 02/27/2017, 10/17/2004 CKD PHOS USE SMARTSET 60964 04/19/202204/01, 11/27/2019, 11/21/2018, Additional history exists COVID-19 Vaccine (7 - Moderna series) 06/05/2022 02/05/2022, 08/02/2021, 02/28/2021, Additional history exists Depression Screening, Annual for Pts 12 and Over 07/17/2022 07/17/2021 GFR 09/25/2022 03/27/2022, 03/02, 10/18/2021, Additional history exists Albumin/Creatinine Ratio 03/21/2023 022, 04/19/2021, 12/31/2017, Additional history exists HbA1c 03/21/2023 03/21/2022, 04/01, 10/06/2020, Additional history exists CKD HGB USE SMARTSET 76332 04/24/202304/24, 04/24/2022, 03/27/2022, Additional history exists TSH 05/22/2023 05/22/2022, 03/02, 04/19/2021, Additional history exists DXA Scan 07/18/2024 07/18/2022, 12/01, 05/09/2017, Additional history exists Hepatitis B Completed 03/18/2009, 05/30, 05/12/2008 Pneumococcal Vaccine: 65+ Years Completed 03/28/2015, 03/20/2010, 11/15/2004 Zoster Vaccines Completed 06/12/2021, 02/01, 11/04/2012 VITAMIN D LEVEL ONCE IN A LIFETIME-USE SMARTSET# [id number] Completed 11/06/2021, 12/28/2019, 06/24/2017, Additional history exists Influenza Vaccine (FLU shot) Completed 04/2021, 12/28/2020, 12/31/2019, Additional history exists GARDASIL-HPV IMMUNIZATION SERIES Aged Out No longer eligible based on patient's age to complete this topic MENINGOCOCCAL (MENACTRA/MENVEO) Aged Out No longer eligible based on patient's age to complete this topic documented as of this encounter Medical Devices Implanted Type Area Inspector Canvas Products Device Identifier Shelf Expiration Date Model / Serial / Lot Lens Intraoc 21.5 - [id number] - [id number] Implanted:Qty: 1 on 05/12/2019 by Yury Brady MD at OR [facility] Right: Eye [employer] 12/30/2023 [id number] / [id number] / [id number] Lens Intraoc 22.5 - [id number] - [id number] Implanted:Qty: 1 on 04/05/2020 by Yury Brady MD at OR [facility] Left: Eye [employer]OM[employer] 09/28/2024 [id number] / [id number] / [id number] documented as of this encounter Advance Directives Documents on File Type Date Recorded Patient Credit Control Administrator Expl anation Advance Directives and Living Will 03/11/2018 Krissy Urban ADVANCE DIR ECTIVE Healthcare Agents on File Name Relationship Healthcare Agent Relationship Communication Krissyva Ordonez Adult Child Health Care Agen t (per Health Care Power of Sql Report Developer document) Guille Urban Adult Child Health Care Agen t (per Health Care Power of Sql Report Developer document) Care Teams Weatherization Operations Manager Relationship Specialty Start Date End Date Rafa Bergman MD [address] [place] [address] [place] [phone] PCP - General Family Medicine 04/19/21 documented as of this encounter
--- OUTSIDE RECORDS SUMMARY | 2023-02-24 09:26 | External Medical Summary | Summary of Care ---
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 Name Role Phone Rafa Bergman MD Primary Care Provide r Reason for Referral * Evaluate & Treat - Unlimited Visits (Within 30 days (routine)) - Authorized Specialty Diagnoses / Procedures Referred By Contwally t Referred To Contact Hematology/Oncology / Hematology Oncology Diagnoses Recurrent pulmonary embolism (HCC) Rafa Bergman MD [address] [place] [address] [place] [id number] Referral ID Status Reason Start Date Expiration Date Visits Requested Visits Authorized [id number] Authorized Specialty Services Required 09/10/[phone] Question Answer Referral Priority Within 30 days (routine) Reason for Referral Thrombosis/Bruising/Abnormal Coagulation Reason for Visit * Reason Comments Hospital Follow-Up Encounter Details Date Type Department Care Team Description 09/10/2022 Office Visit Family Medicine [address] [place] [phone] Rafa Bergman MD [address] [place] [address] [place] [id number] Other acute pulmonary embolism without acute cor pulmonale (HCC)*; Acute deep vein thrombosis (DVT) of proximal vein of left lower extremity (HCC); Tachy-chintan syndrome (HCC); Hypertensive kidney disease with stage 3a chronic kidney disease (HCC); Atherosclerosis of coronary artery of ho-chunk heart without angina pectoris, unspecified vessel or lesion type; Hypothyroidism (acquired); Dyslipidemia, goal LDL below 70; Gastro-esophageal reflux disease with esophagitis, without bleeding; Recurrent pulmonary embolism (HCC); Recurrent pain of both knees Allergies Active Allergy Reactions Severity Noted Date Comments Colchicine Diarrhea 06/16/2018 Daptomycin 01/05/2015 Shortness of breath Imipenem Edema airway High 01/05/2015 Metoprolol Low 01/23/2021 Other reaction(s): fatigue Zoledronic Acid 04/24/2012 Myalgias, fever, chills, vomiting x 2 days Sulfa Antibiotics 12/22/2002 Bactrim--itchy all over, eyes swollen documented as of this encounter (statuses as of 09/10/2022) Medications Medication Sig Dispensed Refills Start Date [...] 3 Active Famotidine 20 MG Oral Tablet (Pepcid)Indicati ons:Abdominal pain, epigastric,Nause a take 1 tablet in the morning and 1 tablet before bedtime 180 Tablet 1 3 Active Apixaban 5 MG Oral Tablet (Eliquis) 1 Tablet. 0 3 Active predniSONE 20 MG Oral Tablet (Deltasone)Indic ations:Recurrent pain of both knees Take 2 Tablets by mouth in the morning for 5 days. 10 Tablet 2 3 09/16/19 23 Active Estradiol 0.1 MG/GM Vaginal Cream (Estrace) Apply 0.5 gram vaginally twice a week at bedtime. 42.5 g 3 2 09/11/19 23 Discontinued(Med ication/Dose Changed) Nystatin-Triamci nolone 916391-3.1 UNIT/GM-% External Cream (Mycolog)Indicat ions:Vaginal dryness, menopausal Apply 0.5 g topically to affected area in the morning and 0.5 g before bedtime. As needed for irritation. 30 g 1 3 09/11/19 23 Discontinued methylPREDNISolo ne 4 MG Oral Tablet (Medrol) 6 tabs daily x 1 day, 5 tabs daily x 1 day, 4 tabs daily x 1 day, 3 tabs daily x 1 day, 2 tabs daily x 1 day, 1 tab daily x 1 day, stop 21 Tablet 1 3 09/11/19 23 Discontinued(Med ication/Dose Changed) Hospital, Clinic, or Other Facility Administered Medication [...] as of this encounter (statuses as of 09/10/2022) Active Problems Problem Noted Date Tachy-chintan syndrome [...] S/P angioplasty with stent 11/27/2018 Atherosclerosis of ho-chunk co ronary artery of ho-chunk heart without angina pectoris 07/08/2018 Arthritis of [...] as of this encounter (statuses as of 09/10/2022) Resolved Problems Problem Noted Date Resolved Date [...] cava filter Atherosclerotic heart diseas e of ho-chunk coronary artery with angina pectoris 07/08/2018 CKD (chronic kidney disease) stage 2, GFR 60-89 ml/min 03/12/2019 documented as of this encounter (statuses as of 09/10/2022) Immunizations Name Administration Dates Next Due COVID-19 [...] Sign Reading Time Taken Comments Blood Pressure 110/68 09/10/2022 12:51 PM EDT Pulse 80 09/10/2022 12:51 PM EDT Temperature 36.1 C (97 F) 09/10/2022 12:51 PM EDT Respiratory Rate 16 09/10/2022 12:51 PM EDT Oxygen Saturation 97% 09/10/2022 12:51 PM EDT Inhaled Oxygen Concentration - - Weight 72.1 kg (159 lb) 09/10/2022 12:51 PM EDT Height - - Body Mass Index 28.17 03/21/2022 8:40 AM EST documented in this encounter Progress Notes * Rafa Bergman MD - 09/10/2022 12:57 PM EDT Subjective: HPI: Rehana Moran is a 77 year old female with hx of hypothyroidism, HLD, HTN, CAD s/p stent, GERD, CKDIII, osteoporosis, hx of DVT/PE x2(2009, 2022), Renal cyst,tachy-chintan syndrome s/p dual chamberpacemaker, prediabetes, macular degeneration, B/L TKA, Goutseen for pt was admitted to the hospital from 09/02-09/06 - pt was initially admitted to the hospital on 08/18 for diverticulitis --- discharged on 08/31 Readmitted for b/l PE with hypoxia and L LE DVT - was started on lovenox then discharged on eliquis CTA chest: 1. Extensive pulmonary emboli with associated right heart strain. 2. No pleural effusion or pulmonary infarct. 3. Healing subacute nondisplaced fractures of the right sixth and seventh ribs. 4. No pneumothorax. 5. Large hiatal hernia. Doppler: There is an occlusive thrombus in the left mid femoral vein. No right- sided thrombus is seen. No superficial venous thrombosis is identified. Echo: EF of 55-60%, RV mildly enlarged Today: - per pt she was less mobile when she was hospitalized for 2 weeks - doing well on eliquis - denied any SOB - denied any gum bleeding - pt had initial DVT/PE after knee replacement in 2009 - denied any FHx of DVT/PE - factor V leiden mutation neg in the past Prednisone helped with knee pain in the past -would like refill Patient Active Problem List Diagnosis Code Senile [...] Arthritis of left ankle M19.072 Atherosclerosis of ho-chunk coronary artery of ho-chunk heart without angina pectoris I25.10 S/P angioplasty with stent Z95.820 Hypertensive kidney disease with stage 3a chronic kidney disease I12.9, N18.31 History of basal cell carcinoma Z85.828 Chronic kidney disease, stage 3a (HCC) N18.31 Prediabetes R73.03 Gastro-esophageal reflux disease with esophagitis, without bleeding K21.00 Tachy-chintan syndrome (HCC) I49.5 Atherosclerosis of coronary artery of ho-chunk heart without angina pectoris I25.10 Current Outpatient Medications Medication Sig Dispense Refill [...] 1 tablet before bedtime 180 Tablet 1 Apixaban 5 MG Oral Tablet (Eliquis) 1 Tablet. predniSONE 20 MG Oral Tablet (Deltasone) Take 2 Tablets by mouth in the morning for 5 days. 10 Tablet 2 Current Facility-Administered Medications Medication Dose Route Frequency Provider Last Rate Last Admin lidocaine 2 % inj 6 mg 0.3 mL Subcutaneous PRN Pedro Patel Cessna, DO 6 mg at 10/31/21 1531 Aflibercept (Eylea) intraviteal prefilled syringe 2 mg 2 mg Intravitreal PRN Pedro Patel Cessna, DO 2 mg at 07/31/22 1538 ROPivacaine (Naropin) inj 1.5 mg 0.3 mL Injection PRN Pedro Patel Cessna, DO 1.5 mg at 07/31/22 1538 Past Medical History: Diagnosis Date Allergic rhinitis Atherosclerotic heart disease of ho-chunk coronary artery with angina pectoris ([facility]) Benign neoplasm of skin Benign paroxysmal vertigo 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 10/28/2013 Chronic sinusitis 10/28/2013 CKD (chronic kidney disease) stage 2, GFR 60-89 ml/min Degenerative disc disease, cervical 05/18/2016 Derangement of meniscus right knee Diverticulitis of colon DVT (deep venous thrombosis) ([facility]) 02/28/2015 Dyslipidemia, goal LDL below 100 [...] rt shoulder NSTEMI (non-ST elevated myocardial infarction) ([facility]) 04/28/2018 [facility], cathed and LAD stented with AMIE, [...] hypertension, elevated TSH, small pericardial effusion [facility] Pericarditis as complication of acute myocardial infarction ([facility]) 05/15/2018 [facility] colchicine not tolerated well. Pericarditis as complication of acute myocardial infarction ([facility]) 06/05/2018 [facility] steroids Postmenopausal atrophic vaginitis 09/15/2013 Presence of vena cava filter PROLAPSE OF VAGINAL WALL 10/28/2000 Pulmonary embolism and infarction ([facility]) 08/30/2009 Pulmonary embolus ([facility]) 2000 Retroperitoneal bleed 02/28/2015 Sebaceous hyperplasia, Rt forehead 10/05/97 01/28/2002 Senile osteoporosis 05/14/2008 Traumatic rupture of left posterior tibial tendon 12/07/14 Urinary frequency 09/15/2013 Viral warts, unspecified Condylomata Vitamin B12 deficiency 05/12/2014 Vitamin D insufficiency 05/12/2014 Past Surgical History: Procedure Laterality Date ARTHROPLASTY KNEE TOTAL 08/18/2009 right knee ARTHROPLASTY KNEE TOTAL 11/11/2014 left knee- [facility]- Dr. Lopez CARDIAC CATH-CARDIOLOGY ONLY 04/28/2018 AMIE to LAD, PCI to RCA COLONOSCOPY 09/2004 diverticulosis COLONOSCOPY, DIAGNOSTIC (RECTUM) 02/27/2017 diverticulosis, repeat 5 yrs/COLONOSCOPY FLEXIBLE PROXIMAL DIAGNOSTIC performed by Ford Pantoja MD at ENDOSCOPY [facility] CTA CHEST NON-CORONARY W CONTRAST 11/13/2018 [...] 07/31/2022 # 40 Eylea OD, Dr. Tinsley IR FILTER PLACEMENT VENA CAVA 10/2014 [facility] MISCELLANEOUS ORDER ([facility] ONLY) 12/02/2013-12/02/2014 LUCENTIS 0.5MG CONSENT SIGNED OD; DR TINSLEY MISCELLANEOUS ORDER ([facility] ONLY) Right 01/12/2015-01/13/2016 LUCENTIS 0.5MG CONSENT OD SIGNED; DR LAUREANO ADNA ORDER ([facility] ONLY) Right 10/21/2015-10/20/2016 EYLEA OD CONSENT SIGNED, Dr. Laureano ADAN ORDER ([facility] ONLY) Right 11/30/2016-11/30/2017 Eylea OD consnet signed, Dr.Cessna MATHEWSCELLYAMIL ORDER ([facility] ONLY) Right 01/30/18-01/30/19 EYLEA OD CONSENT SIGNED, Dr. Laureano ADAN ORDER ([facility] ONLY) ACT 112 signed, 06/12/2018 MISCELLANEOUS ORDER ([facility] ONLY) Right 02/17/2019-02/18/2020 Eylea OD Consent signed, Dr.Cessna MATHEWSCELLYAMIL ORDER ([facility] ONLY) Right EYLEA OD CONSENT [...] performed by Yury Brady MD at OR [facility] REMOVE CATARACT, INSERT LENS PROSTH Left 04/05/2020 left EXTRACAPSULAR CATARACT REMOVAL WITH INTRAOCULAR LENS performed by Yury Brady MD at OR [facility] REPAIR BLADDER & VAGINA, CYSTOCELE 01/2001 Dr Amaya TOTAL ABD HYSTERECTOMY W/WO REMOVAL OF TUBE(S) 1986 Total Abd Hysterectomy with bilateral salpingo-oophorectomy RENAL 12/31/2011 renal cyst, small post voiding [...] or blindness No Past Hx None 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 A complete set of results can be found in Results Review. ROS: -Per HPI OBJECTIVE: BP 110/68 | Pulse 80 | Temp 36.1 C (97 F) (Tympanic) | Resp 16 | Wt 72.1 kg (159 lb) | SpO2 97%| BMI 28.17 kg/m | BSA 1.79 m PHYSICAL EXAM: Vitals are reviewed General:. NAD, well developed HEENT:. Normal Conjunctiva, EOMI Cardiac:. Normal S1, S2, no murmur Lungs:. CTA, no wheezing or crackles MSK:. Normal gait Psych:. AAOx3, normal affect ASSESSMENT/PLAN: Other acute pulmonary embolism without acute cor pulmonale (HCC) (Primary) & Acute deep vein thrombosis (DVT) of proximal vein of left lower extremity (HCC) - continue eliquis - doing well on it - pt's prothrombin mutation and factor V were neg in - current episode does seem to be provoked however due to recurrent DVT/PE will refer the pt to hematology Tachy-chintan syndrome (HCC) - s/p pacemaker Hypertensive kidney disease with stage 3a chronic kidney disease (HCC) - stable Atherosclerosis of coronary artery of ho-chunk heart without angina pectoris, unspecified vessel or lesion type - s/p stent Hypothyroidism (acquired) - stable on medication Dyslipidemia, goal LDL below 70 - on statin Gastro-esophageal reflux disease with esophagitis, without bleeding - on PPI Recurrent pulmonary embolism (HCC) - HEMATOLOGY/ONCOLOGY REFERRAL OP Recurrent pain of both knees - predniSONE 20 MG Oral Tablet (Deltasone); Take 2 Tablets by mouth in the morning for 5 days. Pt would like me to complete a form for work - would like to RTW on 09/17 Follow Up: Return in about 2 months (around 11/10/2022). Rafa Bergman MD Family medicine, [address] [address] documented in this encounter Nursing Notes * Jessi Fonseca LPN - 09/10/2022 12:50 PM EDT [facility] hospital follow up Started on Eliquis Wants RX for prednisone taper with refills for gout Has mucous in stool since having diverticulitis- has been within the week Chills Swelling in right foot- Cellulitis? documented in this encounter Plan of Treatment Upcoming Encounters Date Type Specialty Care Team Description 09/19/2022 Office Visit Family Medicine Rafa Bergman MD [address] [place] [address], [place] [address] 09/19/2022 Laboratory [facility] [address] [place] [id number] 09/19/2022 Office Visit Ophthalmology Pedro Tinsley DO [address] [place] [address] 10/10/2022 Hospital Encounter Endoscopy Eleni Phipps MD [address] [place] [address] 10/10/2022 Surgery Endoscopy Eleni Phipps MD [address] [place] [address] COLONOSCOPY FLEXIBLE PROXIMAL DIAGNOSTIC 11/21/2022 Office Visit Cardiology Charles Ortega DO [address] [place] [address] 12/24/2022 Nurse Only Rheumatology [place], Nurse Rheum [address] [place] [phone] 02/12/2023 Cardiac Studies [facility] [place] [address] [place] [address] 02/22/2023 Office Visit Cardiology Charles Ortega DO [address] [place] [phone] 03/06/2023 Office Visit Dermatology Kasey Nieto MD [address] [place] [address] 07/05/2023 Office Visit Rheumatology Deangelo Holley MD [address] [facility] [place] [address] Scheduled Procedures Name Priority Associated Diagnoses Date/Ti me COLONOSCOPY FLEXIBLE PROXIMAL DIAGNOSTIC Recall Colon cancer screening 10/10/2022 9:00 AM EDT Scheduled Referrals Name Type Priority Associated Diagnoses Orde r Schedule HEMATOLOGY/ONCOLOGY REFERRAL OP Referral Within 30 days (routine) Recurrent pulmonary embolism (HCC) Ordered: 09/10/2022 Health Maintenance Due Date Last Done Comments DTaP,Tdap,and Td Vaccines (2 - Td or Tdap) 11/02/2017 11/03/2007 COLONOSCOPY-EVERY 5 YRS AGES 18-100 02/27/2022 02/27/2017, 02/27/2017, 10/17/2004 CKD PHOS USE SMARTSET 18040 04/19/202204/01, 11/27/2019, 11/21/2018, Additional history exists COVID-19 Vaccine (7 - Moderna series) 06/05/2022 02/05/2022, 08/02/2021, 02/28/2021, Additional history exists Depression Screening, Annual for Pts 12 and Over 07/17/2022 07/17/2021 GFR 09/25/2022 03/27/2022, 03/02, 10/18/2021, Additional history exists Albumin/Creatinine Ratio 03/21/2023 022, 04/19/2021, 12/31/2017, Additional history exists HbA1c 03/21/2023 03/21/2022, 04/01, 10/06/2020, Additional history exists CKD HGB USE SMARTSET 73474 04/24/202304/24, 04/24/2022, 03/27/2022, Additional history exists TSH 05/22/2023 05/22/2022, 03/02, 04/19/2021, Additional history exists DXA Scan 07/18/2024 07/18/2022, 12/01, 05/09/2017, Additional history exists Hepatitis B Completed 03/18/2009, 05/30, 05/12/2008 Pneumococcal Vaccine: 65+ Years Completed 03/28/2015, 03/20/2010, 11/15/2004 Zoster Vaccines Completed 06/12/2021, 02/01, 11/04/2012 VITAMIN D LEVEL ONCE IN A LIFETIME-USE SMARTSET# [id number] Completed 11/06/2021, 12/28/2019, 06/24/2017, Additional history exists Influenza Vaccine (FLU shot) Completed 04/2021, 12/28/2020, 12/31/2019, Additional history exists GARDASIL-HPV IMMUNIZATION SERIES Aged Out No longer eligible based on patient's age to complete this topic MENINGOCOCCAL (MENACTRA/MENVEO) Aged Out No longer eligible based on patient's age to complete this topic documented as of this encounter Medical Devices Implanted Type Area Stallion Keeper Device Identifier Shelf Expiration Date Model / Serial / Lot Lens Intraoc 21.5 - [id number] - [id number] Implanted:Qty: 1 on 05/12/2019 by Yury Brady MD at OR [facility] Right: Eye [employer] 12/30/2023 [id number] / [id number] / [id number] Lens Intraoc 22.5 - [id number] - [id number] Implanted:Qty: 1 on 04/05/2020 by Yury Brady MD at OR [facility] Left: Eye [employer] 09/28/2024 [id number] / [id number] / [id number] documented as of this encounter Visit Diagnoses Diagnosis Other acute pulmonary embolism without acute cor pulmonale (HCC)- Primary Acute deep vein thrombosis (DVT) of proximal vein of left lower extremity (HCC) Tachy-chintan syndrome (HCC) Sinoatrial node dysfunction Hypertensive kidney disease with stage 3a chronic kidney disease (HCC) Atherosclerosis of coronary artery of ho-chunk heart without angina pectoris, unspecified vessel or lesion type Hypothyroidism (acquired) Unspecified hypothyroidism Dyslipidemia, goal LDL below 70 Other and unspecified hyperlipidemia Gastro-esophageal reflux disease with esophagitis, without bleeding Recurrent pulmonary embolism (HCC) Other pulmonary embolism and infarction Recurrent pain of both knees Colon cancer screening Special screening for malignant neoplasms, colon documented in this encounter Advance Directives Documents on File Type Date Recorded Patient Radiation Therapist Expl anation Advance Directives and Livin g Will 03/11/2018 ADVANCE DIRECTIVE Care Teams Sweep Press Operator Relationship Specialty Start Date End Date Rafa Bergman MD [address] [place] [address] [place] [address] PCP - General Family Medicine 04/19/21 documented as of this encounter"
--- OUTSIDE RECORDS SUMMARY | 2023-02-24 09:26 | External Medical Summary | Summary of Care ---
Author Name Unknown Organization [facility] Address [address] [place] [place] [address] Phone [phone] Care Team Providers Care Plate Shear Operator Name Role Phone Rafa Bergman MD Primary Care Provide r Reason for Referral * Evaluate & Treat - Unlimited Visits (Within 30 days (routine)) - Authorized Specialty Diagnoses / Procedures Referred By Contwally t Referred To Contact Hematology/Oncology / Hematology Oncology Diagnoses Recurrent pulmonary embolism (HCC) Rafa Bergman MD [address] [place] [address] [place] [address] Referral ID Status Reason Start Date Expiration Date Visits Requested Visits Authorized [id number] Authorized Specialty Services Required 09/10/2022 999 999 Question Answer Referral Priority Within 30 days (routine) Reason for Referral Thrombosis/Bruising/Abnormal Coagulation Reason for Visit * Reason Comments Hospital Follow-Up Encounter Details Date Type Department Care Team Description 09/10/2022 Office Visit Family Medicine [address] [place] [phone] Rafa Bergman MD [address] [place] [address] [place] [address] Other acute pulmonary embolism without acute cor pulmonale (HCC)*; Acute deep vein thrombosis (DVT) of proximal vein of left lower extremity (HCC); Tachy-chintan syndrome (HCC); Hypertensive kidney disease with stage 3a chronic kidney disease (HCC); Atherosclerosis of coronary artery of wales heart without angina pectoris, unspecified vessel or [...] 09/11/19 23 Discontinued(Med ication/Dose Changed) Nystatin-Triamci nolone 054958-6.1 UNIT/GM-% External Cream (Mycolog)Indicat ions:Vaginal dryness, menopausal [...] cava filter Atherosclerotic heart diseas e of wales coronary artery with angina pectoris 07/08/2018 CKD [...] Arthritis of left ankle M19.072 Atherosclerosis of wales coronary artery of wales heart without angina pectoris I25.10 S/P angioplasty with stent Z95.820 Hypertensive kidney disease with stage 3a chronic kidney disease I12.9, N18.31 History of basal cell carcinoma Z85.828 Chronic kidney disease, stage 3a (HCC) N18.31 Prediabetes R73.03 Gastro-esophageal reflux disease with esophagitis, without bleeding K21.00 Tachy-chintan syndrome (HCC) I49.5 Atherosclerosis of coronary artery of wales heart without angina pectoris I25.10 Current Outpatient [...] Date Allergic rhinitis 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 ([facility]) Benign neoplasm of skin Benign paroxysmal vertigo 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 10/28/2013 Chronic sinusitis 10/28/2013 CKD (chronic kidney disease) stage 2, GFR 60-89 ml/min Degenerative disc disease, cervical 05/18/2016 Derangement of meniscus right knee Diverticulitis of colon DVT (deep venous thrombosis) ([facility]) 02/28/2015 Dyslipidemia, goal LDL below 100 09/15/2013 [...] rt shoulder NSTEMI (non-ST elevated myocardial infarction) ([facility]) 04/28/2018 [facility], cathed and LAD stented with AMIE, RCA [...] hypertension, elevated TSH, small pericardial effusion [facility] Pericarditis as complication of acute myocardial infarction ([facility]) 05/15/2018 [facility] colchicine not tolerated well. Pericarditis as complication of acute myocardial infarction ([facility]) 06/05/2018 [facility] steroids Postmenopausal atrophic vaginitis 09/15/2013 Presence of vena cava filter PROLAPSE OF VAGINAL WALL 10/28/2000 Pulmonary embolism and infarction ([facility]) 08/30/2009 Pulmonary embolus ([facility]) 2000 Retroperitoneal bleed 02/28/2015 Sebaceous hyperplasia, Rt forehead 10/05/97 01/28/2002 Senile osteoporosis 05/14/2008 Traumatic rupture of left posterior tibial tendon 12/07/14 Urinary frequency 09/15/2013 Viral warts, unspecified Condylomata Vitamin B12 deficiency 05/12/2014 Vitamin D insufficiency 05/12/2014 Past Surgical History: Procedure Laterality Date ARTHROPLASTY KNEE TOTAL 08/18/2009 right knee ARTHROPLASTY KNEE TOTAL 11/11/2014 left knee- [facility]- Dr. Lopez CARDIAC CATH-CARDIOLOGY ONLY 04/28/2018 AMIE to LAD, PCI to RCA COLONOSCOPY 09/2004 diverticulosis COLONOSCOPY, DIAGNOSTIC (RECTUM) 02/27/2017 diverticulosis, repeat 5 yrs/COLONOSCOPY FLEXIBLE PROXIMAL DIAGNOSTIC performed by Ford Pantoja MD at ENDOSCOPY [facility] CTA CHEST NON-CORONARY W CONTRAST 11/13/2018 no [...] IR FILTER PLACEMENT VENA CAVA 10/2014 [facility] MISCELLANEOUS ORDER ([facility] ONLY) 12/02/2013-12/02/2014 LUCENTIS 0.5MG [...] MD at OR [facility] REMOVE CATARACT, INSERT LENS PROSTH Left 04/05/2020 left EXTRACAPSULAR CATARACT REMOVAL WITH INTRAOCULAR LENS performed by Yury Brady MD at OR [facility] REPAIR BLADDER & VAGINA, CYSTOCELE 01/2001 Dr [...] detachments or blindness No Past Hx 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 Rafa Bergman MD Family medicine, [address] [address] documented in this encounter Nursing Notes * Jessi Fonseca LPN - 09/10/2022 12:50 PM EDT [facility] hospital follow up Started on Eliquis Wants RX for prednisone taper with refills for gout Has mucous in stool since having diverticulitis- has been within the week Chills Swelling in right foot- Cellulitis? documented in this encounter Plan of Treatment Upcoming Encounters Date Type Specialty Care Team Description 09/19/2022 Office Visit Family Medicine Rafa Bergman MD [address] [place] [address], [place] [address] 09/19/2022 Laboratory Laboratory [place], Lab [address] [place] [address] 09/19/2022 Office Visit Ophthalmology Pedro Tinsley DO [address] [place] [address] 10/10/2022 Hospital Encounter Endoscopy Eleni Phipps MD [address] [place] [address] 10/10/2022 Surgery Endoscopy Eleni Phipps MD [address] [place] [address] COLONOSCOPY FLEXIBLE PROXIMAL DIAGNOSTIC 11/21/2022 Office Visit Cardiology Charles Ortega DO [address] [place] [address] 12/24/2022 Nurse Only Rheumatology [place], Nurse Rheum [address] [place] [phone] 02/12/2023 Cardiac Studies Cardiology [place] [address] [place] [address] 02/22/2023 Office Visit Cardiology Charles Ortega DO [address] [place] [address] 03/06/2023 Office Visit Dermatology Kasey Nieto MD [address] [place] [address] 07/05/2023 Office Visit Rheumatology Deangelo Holley MD [address] [facility] [place] [address] Scheduled Procedures Name Priority Associated Diagnoses Date/Ti [...] 02/27/2017, 02/27/2017, 10/17/2004 CKD PHOS USE SMARTSET 45886 04/19/202204/01, 11/27/2019, 11/21/2018, Additional history exists COVID-19 Vaccine (7 - Moderna series) 06/05/2022 02/05/2022, 08/02/2021, 02/28/2021, Additional history exists Depression Screening, Annual for Pts 12 and Over 07/17/2022 07/17/2021 GFR 09/25/2022 03/27/2022, 03/02, 10/18/2021, Additional history exists Albumin/Creatinine Ratio 03/21/2023 022, 04/19/2021, 12/31/2017, Additional history exists HbA1c 03/21/2023 03/21/2022, 04/01, 10/06/2020, Additional history exists CKD HGB USE SMARTSET 53630 04/24/202304/24, 04/24/2022, 03/27/2022, Additional history exists TSH 05/22/2023 05/22/2022, 03/02, 04/19/2021, Additional history exists DXA Scan 07/18/2024 07/18/2022, 12/01, 05/09/2017, Additional history exists Hepatitis B Completed 03/18/2009, 05/30, 05/12/2008 Pneumococcal Vaccine: 65+ Years Completed 03/28/2015, 03/20/2010, 11/15/2004 Zoster Vaccines Completed 06/12/2021, 02/01, 11/04/2012 VITAMIN D LEVEL ONCE IN A LIFETIME-USE SMARTSET# [id number] Completed 11/06/2021, 12/28/2019, 06/24/2017, Additional history exists Influenza Vaccine (FLU shot) Completed 04/2021, 12/28/2020, 12/31/2019, Additional history exists GARDASIL-HPV IMMUNIZATION SERIES Aged Out No longer eligible based on patient's age to complete this topic MENINGOCOCCAL (MENACTRA/MENVEO) Aged Out No longer eligible based on patient's age to complete this topic documented as of this encounter Medical Devices Implanted Type Area Spring Intern Device Identifier Shelf Expiration Date Model / Serial / Lot Lens Intraoc 21.5 - [id number] - [id number] Implanted:Qty: 1 on 05/12/2019 by Yury Brady MD at OR [facility] Right: Eye [employer]USCH [employer] LOMB 12/30/2023 [id number] / [id number] / [id number] Lens Intraoc 22.5 - [id number] - [id number] Implanted:Qty: 1 on 04/05/2020 by Yury Brady MD at OR [facility] Left: Eye BAUSCH & LOMB 09/28/2024 [id number] / [id number] / [id number] documented as of this encounter Visit Diagnoses Diagnosis Other acute pulmonary embolism without acute cor pulmonale (HCC)- Primary Acute deep vein thrombosis (DVT) of proximal vein of left lower extremity (HCC) Tachy-chintan syndrome (HCC) Sinoatrial node dysfunction Hypertensive kidney disease with stage 3a chronic kidney disease (HCC) Atherosclerosis of coronary artery of wales heart without angina pectoris, unspecified vessel or [...] Documents on File Type Date Recorded Patient Sap Technical Architect Expl anation Advance Directives and Livin g Will 03/11/2018 ADVANCE DIRECTIVE Care Teams Plate Shear Operator Relationship Specialty Start Date End Date Rafa Bergman MD [address] [place] [address] [place] [address] PCP - General Family Medicine 04/19/21 documented as of this encounter"
--- OUTSIDE RECORDS SUMMARY | 2023-02-24 09:26 | External Medical Summary | Summary of Care ---
Author Name Unknown Organization [facility] Address [address] [facility] [place] [address] Phone [phone] Care Team Providers Care Roof Tiler Name Role Phone Rafa Bergman MD Primary Care Provide r Reason for Referral * Evaluate & Treat - Unlimited Visits (Within 3 days (urgent)) - Authorized Specialty Diagnoses / Procedures Referred By Ethan nicole Referred To Contact Fur Blower Diagnoses HTN, goal below 140/90 Shahida Santillan PA-C [address] [place] [address] Referral ID Status Reason Start Date Expiration Date Visits Requested Visits Authorized [id number] Authorized Specialty Services Required 09/11/2022 999 999 Question Answer Referral Priority Within 3 days (urgent) Role Solution Spec Solution Spec Referral Reason High Risk for Readmission Comments Is patient being transitioned from [facility] to Complex Case Management? No declined [facility] Reason for Visit * Reason Onset Date Comments [facility]: Screening 09/11/2022 Encounter Details Date Type Department Care Team Description 09/11/2022 Telephone [facility], [facility] [address] [place] [address] [place] [address] [place] [address] [facility]: Screening Allergies Active Allergy Reactions Severity Noted Date [...] encounter Miscellaneous Notes * Addendum Note - ASHLEY Martinez - 09/11/2022 10:52 AM EDTAddended by: RAFAEL LUGO on: 09/11/2022 10:52 AM Modules accepted: Orders * Telephone Encounter - ASHLEY Martinez - 09/11/2022 10:49 AM EDT [facility] Engagement Attempt Engagement: Engagement Attempt 1: Contacted - Declined home-based services Home Information: No data was found Advance Care Planning (ACP): No data was found Has Living Will or Advance Directive: No data was found Anticipated Sub-Program: Focused Care Management (3-9 months) Confirmation of Sub-Program Type (by care manufacturing team leader): No data was found Handoff Information: Current care team notified via: No data was found Current telemonitoring equipment: No data was found Patient has HH coming in, she is aware she can have both, but states she will be overwhelmed. She will call if needs arise and would like [facility]. ASHLEY Martinez * Telephone Encounter - Sayra Acosta LPN - 09/11/2022 10:24 AM EDT Rehana Moran was referred as a potential candidate for enrollment for [facility]. A review of this chart was completed and: Rehana meets criteria for [facility]. Jump to Episodes of Care to create Episode and document smartforms Referring care team was notified via: Epic communication documented in this encounter Plan of Treatment Upcoming Encounters Date Type Specialty Care Team Description 09/19/2022 Office Visit Family Medicine Rafa Bergman MD [address] [place] [address] [place] [address] 09/19/2022 Laboratory Laboratory [facility] [address] [place] [address] 09/19/2022 Office Visit Ophthalmology Pedro Tinsley, DO [address] [place] [address] 10/10/2022 Hospital Encounter Endoscopy Eleni Phipps MD [address] [place] [phone] 10/10/2022 Surgery Endoscopy Eleni Phipps MD [address] [place] [phone] COLONOSCOPY FLEXIBLE PROXIMAL DIAGNOSTIC 11/14/2022 Office Visit Family Medicine Rafa Bergman MD [address] [place] [address] [place] [address] 11/21/2022 Office Visit Cardiology Charles Ortega, [address] [place] [address] 12/24/2022 Nurse Only Rheumatology [place], Nurse Rheum [address] [place] [phone] 02/12/2023 Cardiac Studies Cardiology [facility] [address] [place] [address] 02/22/2023 Office Visit Cardiology Charles Ortega DO [address] [place] [address] 03/06/2023 Office Visit Dermatology Kasey Nieto MD [address] [place] [address] 07/05/2023 Office Visit Rheumatology Deangelo Holley MD [address] [address] Scheduled Procedures Name Priority Associated Diagnoses Date/Ti me COLONOSCOPY FLEXIBLE PROXIMAL DIAGNOSTIC Recall Colon cancer screening 10/10/2022 9:00 AM EDT Scheduled Referrals Name Type Priority Associated Diagnoses Orde r Schedule POPUL[facility] HEALTH REFERRAL OP Referral Within 3 days (urgent) HTN, goal below 140/90 Ordered: 09/11/2022 Health Maintenance Due Date Last Done Comments DTaP,Tdap,and Td Vaccines (2 - Td or Tdap) 11/02/2017 11/03/2007 COLONOSCOPY-EVERY 5 YRS AGES 18-100 02/27/2022 02/27/2017, 02/27/2017, 10/17/2004 CKD PHOS USE SMARTSET 37025 04/19/202204/01, 11/27/2019, 11/21/2018, Additional history exists COVID-19 Vaccine (7 - Moderna series) 06/05/2022 02/05/2022, 08/02/2021, 02/28/2021, Additional history exists Depression Screening, Annual for Pts 12 and Over 07/17/2022 07/17/2021 GFR 09/25/2022 03/27/2022, 03/02, 10/18/2021, Additional history exists Albumin/Creatinine Ratio 03/21/2023 022, 04/19/2021, 12/31/2017, Additional history exists HbA1c 03/21/2023 03/21/2022, 04/01, 10/06/2020, Additional history exists CKD HGB USE SMARTSET 61789 04/24/202304/24, 04/24/2022, 03/27/2022, Additional history exists TSH 05/22/2023 05/22/2022, 03/02, 04/19/2021, Additional history exists DXA Scan 07/18/2024 07/18/2022, 12/01, 05/09/2017, Additional history exists Hepatitis B Completed 03/18/2009, 05/30, 05/12/2008 Pneumococcal Vaccine: 65+ Years Completed 03/28/2015, 03/20/2010, 11/15/2004 Zoster Vaccines Completed 06/12/2021, 02/01, 11/04/2012 VITAMIN D LEVEL ONCE IN A LIFETIME-USE SMARTSET# [id number] Completed 11/06/2021, 12/28/2019, 06/24/2017, Additional history exists Influenza Vaccine (FLU shot) Completed 04/2021, 12/28/2020, 12/31/2019, Additional history exists GARDASIL-HPV IMMUNIZATION SERIES Aged Out No longer eligible based on patient's age to complete this topic MENINGOCOCCAL (MENACTRA/MENVEO) Aged Out No longer eligible based on patient's age to complete this topic documented as of this encounter Medical Devices Implanted Type Area Chief Pharmacist Device Identifier Shelf Expiration Date Model / Serial / Lot Lens Intraoc 21.5 - [id number] - [id number] Implanted:Qty: 1 on 05/12/2019 by Yury Brady MD at OR [facility] Right: Eye [employer]CH [employer] LOMB 12/30/2023 [id number] / [id number] / [id number] Lens Intraoc 22.5 - [id number] - [id number] Implanted:Qty: 1 on 04/05/2020 by Yury Brady MD at OR [facility] Left: Eye BAUSCH & LOMB 09/28/2024 [id number] / [id number] / [id number] documented as of this encounter Visit Diagnoses Diagnosis HTN, goal below 140/90- Primary Unspecified essential hypertension Colon cancer screening Special screening for malignant neoplasms, colon documented in this encounter Advance Directives Documents on File Type Date Recorded Patient Massage Operator Expl anation Advance Directives and Livin g Will 03/11/2018 ADVANCE DIRECTIVE Care Teams Roof Tiler Relationship Specialty Start Date End Date Rafa Bergman MD [address] [place] [address] [place] [address] PCP - General Family Medicine 04/19/21 documented as of this encounter
--- OUTSIDE RECORDS SUMMARY | 2023-02-24 09:26 | External Medical Summary | Summary of Care ---
Author Name Unknown Organization [facility] [address] [facility] [address] Phone [phone] Care Team Providers Care Billing Machine Operator Name Role Phone Rafa Bergman MD Primary Care Provide r Reason for Visit * Reason Onset Date Comments [facility]: Screening 09/11/2022 Encounter Details Date Type Department Care Team Description 09/11/2022 Telephone [facility], [facility] [address] [facility] [place] [address] [facility], Nurse [facility] [address] [facility] [place] [address] [facility]: Screening Allergies Active Allergy [...] S/P angioplasty with stent 11/27/2018 Atherosclerosis of comanche co ronary artery of com[place] heart without angina pectoris 07/08/2018 Arthritis of [...] cava filter Atherosclerotic heart diseas e of [place] coronary artery with angina pectoris 07/08/2018 CKD [...] encounter Miscellaneous Notes * Telephone Encounter - Sayra Acosta LPN - 09/11/2022 10:24 AM EDT Rehana Moran was referred as a potential candidate for enrollment for [facility]. A review of this chart was completed and: Rehana meets criteria for [facility]. Jump to Episodes of Care to create Episode and document smartforms Referring care team was notified via: [email or web address] communication documented in this encounter Plan of Treatment Upcoming Encounters Date Type Specialty Care Team Description 09/19/2022 Office Visit Family Medicine Rafa Bergman MD [address] [place] [address] [place] [address] 09/19/2022 Laboratory Laboratory [facility] [address] [place] [address] 09/19/2022 Office Visit Ophthalmology Pedro Tinsley, DO [address] [place] [address] 10/10/2022 Hospital Encounter Endoscopy Eleni Phipps MD [address] [place], [place] [phone] 10/10/2022 Surgery Endoscopy Eleni Phipps MD [address] [place] [phone] COLONOSCOPY FLEXIBLE PROXIMAL DIAGNOSTIC 11/12/2022 Office Visit Family Medicine Rafa Bergman MD [address] [place] [address] [place] [address] 11/21/2022 Office Visit Cardiology Charles Ortega, [address] [place] [address] 12/24/2022 Nurse Only Rheumatology [place], Nurse Rheum [address] [place] [phone] 02/12/2023 Cardiac Studies Cardiology [facility] [address] [place] [address] 02/22/2023 Office Visit Cardiology Charles Ortega DO [address] [place] [address] 03/06/2023 Office Visit Dermatology Kasey Nieto MD [address] [place] [address] 07/05/2023 Office Visit Rheumatology Deangelo Holley MD [address] [place] [address] Scheduled Procedures Name Priority Associated Diagnoses Date/Ti me COLONOSCOPY FLEXIBLE PROXIMAL DIAGNOSTIC Recall Colon cancer screening 10/10/2022 9:00 AM EDT Health Maintenance Due Date Last Done Comments DTaP,Tdap,and Td Vaccines (2 - Td or Tdap) 11/02/2017 11/03/2007 COLONOSCOPY-EVERY 5 YRS AGES 18-100 02/27/2022 02/27/2017, 02/27/2017, 10/17/2004 CKD PHOS USE SMARTSET 96540 04/19/202204/01, 11/27/2019, 11/21/2018, Additional history exists COVID-19 Vaccine (7 - Moderna series) 06/05/2022 02/05/2022, 08/02/2021, 02/28/2021, Additional history exists Depression Screening, Annual for Pts 12 and Over 07/17/2022 07/17/2021 GFR 09/25/2022 03/27/2022, 03/02, 10/18/2021, Additional history exists Albumin/Creatinine Ratio 03/21/2023 022, 04/19/2021, 12/31/2017, Additional history exists HbA1c 03/21/2023 03/21/2022, 04/01, 10/06/2020, Additional history exists CKD HGB USE SMARTSET 99874 04/24/202304/24, 04/24/2022, 03/27/2022, Additional history exists TSH 05/22/2023 05/22/2022, 03/02, 04/19/2021, Additional history exists DXA Scan 07/18/2024 07/18/2022, 12/01, 05/09/2017, Additional history exists Hepatitis B Completed 03/18/2009, 05/30, 05/12/2008 Pneumococcal Vaccine: 65+ Years Completed 03/28/2015, 03/20/2010, 11/15/2004 Zoster Vaccines Completed 06/12/2021, 02/01, 11/04/2012 VITAMIN D LEVEL ONCE IN A LIFETIME-USE SMARTSET# 65999 Completed 11/06/2021, 12/28/2019, 06/24/2017, Additional history exists Influenza Vaccine (FLU shot) Completed 04/2021, 12/28/2020, 12/31/2019, Additional history exists GARDASIL-HPV IMMUNIZATION SERIES Aged Out No longer eligible based on patient's age to complete this topic MENINGOCOCCAL (MENACTRA/MENVEO) Aged Out No longer eligible based on patient's age to complete this topic documented as of this encounter Medical Devices Implanted Type Area Radio News Anchor Device Identifier Shelf Expiration Date Model / Serial / Lot Lens Intraoc 21.5 - [id number] - [id number] Implanted:Qty: 1 on 05/12/2019 by Yury Brady MD at OR [facility] Right: Eye BAUSCH [employer] LOMB 12/30/2023 [id number] / [id number] / [id number] Lens Intraoc 22.5 - [id number] - [id number] Implanted:Qty: 1 on 04/05/2020 by Yury Brady MD at OR [facility] Left: Eye BAUSCH & LOMB 09/28/2024 [id number] / [id number] / [id number] documented as of this encounter Advance Directives Documents on File Type Date Recorded Patient Rate Quoting Operator Expl anation Advance Directives and Livin g Will 03/11/2018 ADVANCE DIRECTIVE Care Teams Billing Machine Operator Relationship Specialty Start Date End Date Rafa Bergman MD [address] [place] [address] [place] [address] PCP - General Family Medicine 04/19/21 documented as of this encounter
--- NOTE | 2023-02-24 09:35 | Emergency Department Note ---
Impression & Plan Acute dyspnea ADMIT ED Provider Note HPI: History obtained from patient. The patient is a 78-year-old female with history of ischemic cardiomyopathy, PE on Eliquis, chronic kidney disease, B12 deficiency, hypothyroidism, who presents emergency department with chief complaint of generalized weakness. Patient states this has been ongoing most intensely for about the past 4 days. Patient states she has had some weakness for longer than that dating back several weeks, she is seeing her PCP and was recently diagnosed with B12 deficiency and was placed on B12 supplementation without improvement in her symptoms. Patient states over the past 4 days she has been unable to get out of bed or accomplish her activities of daily living. She arrives with her son at the bedside. Patient states she has also had some nausea and sensation of palpitations. On arrival here to the ED the patient is hemodynamically stable, she states she is too weak to lift her arms or her legs but she does not have any focal deficits otherwise and she is able to maintain motor and sensory function distally in the hands and feet. Patient states that she did have her thyroid function checked recently and everything was "okay". On arrival here to the ED blood pressure is 106/69, patient is afebrile on arrival, she is saturating well on room air and otherwise appears to be in no acute distress. Patient denies any focal complaint of pain. ROS: - Per HPI Differential Diagnosis: Hypothyroidism, B12 deficiency, viral syndrome, COVID-19 infection, electrolyte abnormality/dehydration, amongst other potential pathologies. *Outpatient medications and allergy history reviewed. *Pertinent external medical records reviewed -discharge summary dated 09/18/2022 PE: General: Alert HEENT: Normocephalic, trachea midline Eyes: Extraocular eye movement is intact, no scleral erythema Pulmonary: Clear to auscultation bilaterally, no wheezing Cardio: Regular rate and rhythm GI: Abdomen is soft to palpation : No suprapubic tenderness MSK: Generalized weakness/fatigue limiting range of motion in all 4 extremities, equal bilateral spool salvager strength Skin: No evidence of rash Neuro: Alert, no focal deficits Psychiatric: Cooperative INDEPENDENT INTERPRETATIONS: compliance monitor: (As interpreted by myself): - An order was placed for continuous cardiac monitoring - Patient was noted to be in sinus rhythm with a rate of 95 EKG: (As interpreted by myself): Rate: 98 Rhythm: Sinus rhythm with PVCs Intervals: Within normal limits ST changes: No ST elevation Time: 0929 Interventions provided in ED: -IV fluid bolus Medical Decision Making: Shortly after the patient arrived IV was established lab work obtained, patient was placed on quality assurance monitor chassis. Lab work shows no leukocytosis, hemoglobin is normal, platelet count is normal, CMP does not show any critical findings, magnesium slightly low at 1.6, calcium low at 7.1, TSH is within normal limits, serum B12 levels were obtained as well given the patient's recent diagnosis of B12 deficiency and this was within normal limits. Viral panel testing was obtained and is negative, urinalysis does not show any evidence of obvious infection. Chest x-ray shows possible bilateral lower lobe atelectasis per interpreting radiologist. Troponin is negative x 1, EKG per my interpretation shows sinus rhythm with occasional PVCs, without evidence of acute ischemic changes. My reassessment patient states she continues to feel weak, she was ambulated to the restroom and upon her return was acutely short of breath and had hypoxia at 87%. She was ordered IV calcium and IV magnesium repletion, given her hypoxia with exertion she will be placed for admission to the medicine service following my discussion with the on-call hospitalist, Dr. Braun. Patient is in agreement for admission the patient was placed for admission in stable condition. Consultants/Discussions held with other healthcare providers: -Hospitalist, Dr. Braun Disposition discussion held by myself with: -Patient * CRITICAL CARE TIME: ( 35 ) minutes -Stabilization of hypoxia with oxygen saturation of 87% on room air requiring supplemental oxygen for correction, time spent at the bedside, interpretation of diagnostic studies, discussion with other healthcare providers/physicians and arrangement of admission. Diagnosis: 1. Hypoxia on exertion, acute 2. Generalized weakness, acute 3. Hypomagnesemia, acute 4. Hypocalcemia, acute Disposition: Admission Mykel Craig DO Emergency Medicine Past Med/Surg History Medical History CAD (coronary artery disease) Dyslipidemia GERD (gastroesophageal reflux disease) History of DVT (deep vein thrombosis) History of non-ST elevation myocardial infarction (NSTEMI) History of pulmonary embolism Hypertension (Unknown) BP better today continue higher dose of metoprolol 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 Hypothyroidism Ischemic cardiomyopathy Non-ST elevated myocardial infarction (non-STEMI) Osteoporosis Retinal vein occlusion of right eye Rupture of left posterior tibialis tendon Vitamin B12 deficiency Surgical History History of cardiac cath S/P BSO (status post bilateral salpingo-oophorectomy) S/P IVC filter Status post biventricular pacemaker Status post hysterectomy Status post right knee replacement Family History Father Coronary heart disease Heart disease Mother Stroke Allergies Grandmother Asthma Grandfather Asthma Other Hypertension No family history of adverse response to anesthesia No family history of bleeding disorder Social History Smoking Status: Never smoker Second Hand Exposure: No; Do You Dip or Chew Tobacco: No; Hx Alcohol Use: No Hx Substance Use: No Preferred Language: Lao Communication Ability: Effective Virtual Customer Assistant Required: No Beliefs That Will Affect Care: None marital status: Current Living Situation: Family Current Living Situation Comment: Lives with daughter current occupational status: employed How many Children do You have: 1 Feels Safe at Home: Yes Assistive Devices: None Allergies Allergies Allergy/AdvReac Type Severity Reaction Status Date / Time imipenem Allergy Severe ANAPHYLAXIS Verified 11/16/22 20:55 Sulfa (Sulfonamide Allergy Severe hives,sob, Verified 11/16/22 20:55 Antibiotics) can take Dyazide daptomycin AdvReac Severe Anaphylaxis Unverified 11/16/22 20:55 colchicine AdvReac Intermediate diarrhea Verified 11/16/22 20:55 metoprolol AdvReac Mild fatigue Verified 11/16/22 20:55 zoledronic acid AdvReac Mild NAUSEA AND Verified 11/16/22 20:55 VOMITING Home Meds Home Medications Medication Instructions Recorded Confirmed cholecalciferol (vitamin D3) 50 2,000 unit PO QAM 04/28/18 02/24/23 mcg (2,000 unit) tablet (Vitamin D3) fexofenadine 180 mg tablet 180 mg PO DAILY 04/28/18 02/24/23 (Elke Allergy) fluticasone propionate 50 2 spray intranasal QAM PRN Nasal 06/03/18 02/24/23 mcg/actuation nasal Congestion spray,suspension (Flonase Allergy Relief) dicyclomine 20 mg tablet 20 mg PO TID PRN IBS 02/12/19 02/24/23 allopurinol 300 mg tablet 300 mg PO QAM 01/23/21 02/24/23 coenzyme Q10 100 mg capsule 100 mg PO DAILY 01/23/21 02/24/23 (CoQ-10) diltiazem HCl 360 mg 360 mg PO QPM 01/23/21 02/24/23 tablet,extended release 24 hr levothyroxine 137 mcg tablet 137 mcg PO DAILYBB 01/23/21 02/24/23 rosuvastatin 5 mg tablet 5 mg PO DAILY 01/23/21 02/24/23 allopurinol 300 mg tablet 150 mg PO QPM 08/18/22 02/24/23 atenolol 25 mg tablet 12.5 mg PO DAILY 08/18/22 02/24/23 famotidine 20 mg tablet 20 mg PO BID 08/18/22 02/24/23 loperamide 2 mg tablet 2 mg PO QID PRN Diarrhea 08/18/22 02/24/23 Probiotic For Women 1 tab PO DAILY 11/16/22 02/24/23 pantoprazole 40 mg tablet,delayed 40 mg PO DAILY 02/24/23 02/24/23 release Previous Rx's Medication Instructions Recorded nitroglycerin 0.4 mg sublingual 0.4 mg sublingual Q5M chest pain 05/01/18 tablet (Nitrostat) #25 tabs aspirin 81 mg tablet,delayed 81 mg PO HS #0 tabs 05/16/18 release apixaban 5 mg tablet (Eliquis) 5 mg PO BID #60 tabs 09/06/22 Results & Data (ED) Vital Signs Vital Signs - 24 hr 02/24/23 09:12 02/24/23 09:35 02/24/23 10:41 Temperature 36.7 C Temperature Source Temporal Artery Scan Pulse Rate 93 H 90 Pulse Rate [Apical] 83 Pulse Rhythm [Apical] Pulse Strength [Apical] Respiratory Rate 17 20 Respiratory Effort / Characteristics Non-Labored Spontaneous Respiratory Depth Normal Blood Pressure 106/69 Blood Pressure [Right Arm] 106/81 Blood Pressure Mean 81 Blood Pressure Mean [Right Arm] 89 Blood Pressure Position Sitting Blood Pressure Position [Right Arm] Pulse Oximetry 92 96 Oxygen Delivery Method Room Air Nasal Cannula Oxygen Flow Rate 2 Sepsis Recent Fever Within 48 Hours No Sepsis New/Unexplained Change in Mental Status No Sepsis Action Taken by Nursing No Action Required 02/24/23 12:00 02/24/23 12:07 02/24/23 13:05 Temperature 36.6 C Temperature Source Oral Pulse Rate Pulse Rate [Apical] 90 89 Pulse Rhythm [Apical] Regular Pulse Strength [Apical] Normal Respiratory Rate 18 24 Respiratory Effort / Characteristics Spontaneous Respiratory Depth Blood Pressure Blood Pressure [Right Arm] 151/94 H 125/105 H Blood Pressure Mean Blood Pressure Mean [Right Arm] 113 111 Blood Pressure Position Blood Pressure Position [Right Arm] Semi-fowlers Pulse Oximetry 87 L 97 96 Oxygen Delivery Method Room Air Nasal Cannula Nasal Cannula Oxygen Flow Rate 2 2 Sepsis Recent Fever Within 48 Hours Sepsis New/Unexplained Change in Mental Status Sepsis Action Taken by Nursing 02/24/23 13:35 02/24/23 15:11 Temperature Temperature Source Pulse Rate 88 Pulse Rate [Apical] 93 H Pulse Rhythm [Apical] Pulse Strength [Apical] Respiratory Rate 18 Respiratory Effort / Characteristics Non-Labored Spontaneous Respiratory Depth Normal Blood Pressure Blood Pressure [Right Arm] 128/80 Blood Pressure Mean Blood Pressure Mean [Right Arm] 96 Blood Pressure Position Blood Pressure Position [Right Arm] Lying Pulse Oximetry 97 Oxygen Delivery Method Nasal Cannula Oxygen Flow Rate 2 Sepsis Recent Fever Within 48 Hours Sepsis New/Unexplained Change in Mental Status Sepsis Action Taken by Nursing Laboratory Data 02/24/23 09:47 02/24/23 09:47 Lab Results 02/24/23 02/24/23 02/24/23 Range/Units 09:47 10:49 12:05 WBC 7.38 (4.8-10.8) K/ul RBC 3.77 L (4.20-5.40) M/uL Hgb 12.4 (12.0-16.0) g/dl Hct 39.8 (37.0-47.0) % MCV 105.6 H (80.0-100.0) fL MCH 32.9 (25.0-34.0) pg MCHC 31.2 L (32.0-36.0) g/dL RDW Std Deviation 61.2 H (36.4-46.3) fL RDW Coeff of Agnes 15.9 H (11.5-14.5) % Plt Count 346 (130-400) K/uL MPV 9.0 L (9.4-12.4) fL Immature Gran % (Auto) 0.7 % Neut % (Auto) 64.7 % Lymph % (Auto) 20.9 % [place] % (Auto) 11.8 % Eos % (Auto) 1.4 % Baso % (Auto) 0.5 % Neut # (Auto) 4.78 (1.40-6.50) K/uL Lymph # (Auto) 1.54 (1.20-3.40) K/uL [place] # (Auto) 0.87 H (0.11-0.59) K/uL Eos # (Auto) 0.10 (0.00-0.50) K/uL Baso # (Auto) 0.04 (0.00-0.20) K/uL Immature Gran # (Auto) 0.05 (0.01-0.20) K/uL PT 11.4 (9.0-12.0) Seconds INR 1.0 (0.9-1.1) VBG pH (7.36-7.41) VBG pCO2 (38-50) mmHg VBG pO2 mmHg VBG HCO3 mmol/L VBG O2 Saturation % VBG Base Excess mEq/L Sodium 144 (136-145) mmol/L Potassium 3.8 (3.5-5.1) mmol/L Chloride 112 H (98-107) mmol/L Carbon Dioxide 26 (21-32) mmol/L Anion Gap 6 (3-11) BUN 17 (6-23) mg/dl Creatinine 0.80 (0.6-1.2) mg/dl Est Cr Clr Drug Dosing Not Reportable Est GFR ( Amer) 81.8 ml/min Est GFR (Non-Af Amer) 70.6 ml/min BUN/Creatinine Ratio 21.3 H (10-20) Glucose 123 H (70-99(Fasting)) mg/dl Calcium 7.1 L (8.6-10.3) mg/dl Magnesium 1.6 L (1.7-2.4) mg/dl Total Bilirubin 0.4 (0.2-1.0) mg/dl AST 6 L (13-39) U/L ALT 12 (7-52) U/L Alkaline Phosphatase 91 (34-104) U/L Troponin I High Sens 4.3 (0-14) pg/ml B-Natriuretic Peptide (0-100) pg/ml Total Protein 5.2 L (6.0-8.3) gm/dl Albumin 3.0 L (3.4-5.0) gm/dl Globulin 2.2 L (2.5-4.0) gm/dl Albumin/Globulin Ratio 1.4 (0.9-2) Vitamin B12 621 (180-914) pg/ml TSH 1.488 (0.300-4.500) uIu/ml Urine Color Yellow Urine Appearance Slightly Cloudy (Clear) Urine pH 6.0 (4.5-7.5) Ur Specific [place] >= 1.030 (1.000-1.030) Urine Protein 1+ H (Negative) Urine Glucose (UA) Negative (Negative) Urine Ketones Negative (Negative) Urine Blood Negative (Negative) Urine Nitrite Negative (Negative) Urine Bilirubin Negative (Negative) Urine Urobilinogen Negative (Negative) Ur Leukocyte Esterase Negative (Negative) Urine RBC 0-4 (0-4) /hpf Urine WBC 0-5 (0-5) /hpf Ur Epithelial Cells >30 H (0-5) /lpf Urine Bacteria 1+ H (Negative) Adenovirus (PCR) Not Detected (NotDetected) B. pertussis DNA (PCR) Not Detected (NotDetected) B.parapertussis DNA PCR Not Detected (NotDetected) C. pneumoniae DNA (PCR) Not Detected (NotDetected) Coronavirus OC43 (PCR) Not Detected (NotDetected) Coronavirus HKU1 (PCR) Not Detected (NotDetected) Coronavirus 229E (PCR) Not Detected (NotDetected) SARS-CoV-2 (PCR) Not Detected (NotDetected) Coronavirus NL63 (PCR) Not Detected (NotDetected) Human Metapneumovir PCR Not Detected (NotDetected) Influenza Type A (PCR) Not Detected (NotDetected) Influenza Type B (PCR) Not Detected (NotDetected) M. pneumoniae (PCR) Not Detected (NotDetected) Parainfluenza 1 (PCR) Not Detected (NotDetected) Parainfluenza 2 (PCR) Not Detected (NotDetected) Parainfluenza 3 (PCR) Not Detected (NotDetected) Parainfluenza 4 (PCR) Not Detected (NotDetected) RSV (PCR) Not Detected (NotDetected) Entero/Rhino (PCR) Not Detected (NotDetected) 02/24/23 Range/Units 13:00 WBC (4.8-10.8) K/ul RBC (4.20-5.40) M/uL Hgb (12.0-16.0) g/dl Hct (37.0-47.0) % MCV (80.0-100.0) fL MCH (25.0-34.0) pg MCHC (32.0-36.0) g/dL RDW Std Deviation (36.4-46.3) fL RDW Coeff of Agnes (11.5-14.5) % Plt Count (130-400) K/uL MPV (9.4-12.4) fL Immature Gran % (Auto) % Neut % (Auto) % Lymph % (Auto) % [place] % (Auto) % Eos % (Auto) % Baso % (Auto) % Neut # (Auto) (1.40-6.50) K/uL Lymph # (Auto) (1.20-3.40) K/uL [place] # (Auto) (0.11-0.59) K/uL Eos # (Auto) (0.00-0.50) K/uL Baso # (Auto) (0.00-0.20) K/uL Immature Gran # (Auto) (0.01-0.20) K/uL PT (9.0-12.0) Seconds INR (0.9-1.1) VBG pH 7.33 L (7.36-7.41) VBG pCO2 49 (38-50) mmHg VBG pO2 32 mmHg VBG HCO3 26 mmol/L VBG O2 Saturation < 60.0 % VBG Base Excess -0.6 mEq/L Sodium (136-145) mmol/L Potassium (3.5-5.1) mmol/L Chloride (98-107) mmol/L Carbon Dioxide (21-32) mmol/L Anion Gap (3-11) BUN (6-23) mg/dl Creatinine (0.6-1.2) mg/dl Est Cr Clr Drug Dosing Est GFR ( Amer) ml/min Est GFR (Non-Af Amer) ml/min BUN/Creatinine Ratio (10-20) Glucose (70-99(Fasting)) mg/dl Calcium (8.6-10.3) mg/dl Magnesium (1.7-2.4) mg/dl Total Bilirubin (0.2-1.0) mg/dl AST (13-39) U/L ALT (7-52) U/L Alkaline Phosphatase (34-104) U/L Troponin I High Sens (0-14) pg/ml B-Natriuretic Peptide 42 (0-100) pg/ml Total Protein (6.0-8.3) gm/dl Albumin (3.4-5.0) gm/dl Globulin (2.5-4.0) gm/dl Albumin/Globulin Ratio (0.9-2) Vitamin B12 (180-914) pg/ml TSH (0.300-4.500) uIu/ml Urine Color Urine Appearance (Clear) Urine pH (4.5-7.5) Ur Specific [place] (1.000-1.030) Urine Protein (Negative) Urine Glucose (UA) (Negative) Urine Ketones (Negative) Urine Blood (Negative) Urine Nitrite (Negative) Urine Bilirubin (Negative) Urine Urobilinogen (Negative) Ur Leukocyte Esterase (Negative) Urine RBC (0-4) /hpf Urine WBC (0-5) /hpf Ur Epithelial Cells (0-5) /lpf Urine Bacteria (Negative) Adenovirus (PCR) (NotDetected) B. pertussis DNA (PCR) (NotDetected) B.parapertussis DNA PCR (NotDetected) C. pneumoniae DNA (PCR) (NotDetected) Coronavirus OC43 (PCR) (NotDetected) Coronavirus HKU1 (PCR) (NotDetected) Coronavirus 229E (PCR) (NotDetected) SARS-CoV-2 (PCR) (NotDetected) Coronavirus NL63 (PCR) (NotDetected) Human Metapneumovir PCR (NotDetected) Influenza Type A (PCR) (NotDetected) Influenza Type B (PCR) (NotDetected) M. pneumoniae (PCR) (NotDetected) Parainfluenza 1 (PCR) (NotDetected) Parainfluenza 2 (PCR) (NotDetected) Parainfluenza 3 (PCR) (NotDetected) Parainfluenza 4 (PCR) (NotDetected) RSV (PCR) (NotDetected) Entero/Rhino (PCR) (NotDetected) Administered Medications Discontinued Medications Sodium Chloride (Nss) 500 mls @ 999 mls/hr IV .Q31M STA Stop: 02/24/23 09:54 Last Infusion: 02/24/23 10:46 Dose: Infused Documented By: Admin: 02/24/23 09:46 Dose: 999 mls/hr Documented By: KIMBERLY Calcium Gluconate () 1,000 mg in 60 mls @ 240 mls/hr IV NOW STA Stop: 02/24/23 11:51 Last Infusion: 02/24/23 12:45 Dose: Infused Documented By: Admin: 02/24/23 12:11 Dose: 240 mls/hr Documented By: JEROME Magnesium Sulfate/Dextrose (Magnesium Sulfate / D5w) 1 gm in 100 mls @ 100 mls/hr IV NOW STA Stop: 02/24/23 12:37 Last Admin: 02/24/23 12:55 Dose: 100 mls/hr Documented By: AMRIK Ioversol (Optiray 320 500ml) 94 ml IV ONCE ONE Stop: 02/24/23 13:59 Last Admin: 02/24/23 13:58 Dose: 94 ml Documented By: MERCEDES Imaging Data Radiologist's Impression: Chest X-Ray 02/24/23 10:44 XR chest 1V portable CLINICAL HISTORY: weakness TECHNIQUE: Single frontal radiograph of the chest was obtained. Comparison: Comparison is made to chest radiograph 01/16/2023 FINDINGS: An implanted pacemaker is seen. Calcified aortic knob is seen. Bilateral lower lung linear opacities likely represent atelectasis. Blunting of left costophrenic angle is again seen likely due to extrapleural fat. IMPRESSION: There is bilateral airspace opacity which likely represent atelectasis with or without superimposed aspiration/pneumonia. ACT 112: Negative or not required by law. Electronically signed by: Rafael Solitario M.D. 02/24/2023 11:[address] 02/24/23 10:44 CT head/brain wo con CLINICAL HISTORY: weakness Technique: Contiguous axial CT images of the head were acquired from the base of the skull to the vertex without intravenous contrast administration. Images were viewed in brain, subdural and bone windows. Automated dose lowering techniques and/or adjustment according to patient size were utilized for this exam. Comparison: Comparison is made to CT head 01/03/2021 Findings: The ventricles, basal cisterns, and cerebral sulci are normal. There is no acute intracranial hemorrhage or evidence of acute territorial infarction. Neither mass effect, shift of the midline structures, nor abnormal extra-axial fluid collections are shown. Imaged portions of the paranasal sinuses and mastoid air cells are clear. The orbits appear normal. There are no acute fractures of the calvaria or scalp swelling. Impression: No acute intracranial hemorrhage, no evidence of acute territorial infarction or other acute intracranial disease process. ACT 112: Negative or not required by law. Electronically signed by: Rafael Solitario M.D. 02/24/2023 11:21 AM Chest CTA 02/24/23 13:07 CT angio chest PE protocol CLINICAL HISTORY: PE TECHNIQUE: Multidetector row helical CT of the chest was performed with angiographic protocol. Coronal and sagittal reformations were obtained. Coronal and sagittal MIPS were obtained from the axial data set and were submitted for review. Automated dose lowering techniques and/or adjustment according to patient size were utilized for this exam. CT DOSE: 572.82 mGy.cm Comparison: Comparison is made to CTA chest 09/02/2022 FINDINGS: Lungs and pleura: Atelectasis versus scarring is seen in the dependent portions of the lungs. Heart and pericardium: Cardiomegaly is seen with biatrial enlargement. Vessels: Evaluation for pulmonary embolism is limited due to patient motion. No evidence of central, lobar, or segmental embolus. Moderate atherosclerotic disease is seen. Mediastinum and milady: Unremarkable. Chest wall and lower neck: Unremarkable. Abdomen: Large hiatal hernia is seen. There is a left renal cyst measuring 18 mm in diameter. Bones: Degenerative changes in the thoracic spine. IMPRESSION: No acute abnormality and in particular no evidence of pulmonary embolus. Atelectasis is seen with a large hiatal hernia. Mild cardiomegaly is again seen. ACT 112: Negative or not required by law. Electronically signed by: Rafael Solitario M.D. 02/24/2023 2:35 PM Discharge Plan Visit Data Chief Complaint: Illness Stated Complaint: WEAKNESS, FATIGUE, NAUSEA, TACHYCARDIA ED Provider: Mykel Craig Discharge Problem: Acute dyspnea Forms Stand Alone Forms: [facility] Prescriptions Prescriptions: No Action fexofenadine [Elke Allergy] 180 mg Tablet 180 mg PO DAILY cholecalciferol (vitamin D3) [Vitamin D3] 2,000 unit Tablet 2,000 unit PO QAM nitroglycerin [Nitrostat] 0.4 mg tablet, sublingual 0.4 mg Sublingual Q5M Qty: 25 3RF Rx Instructions: 1 pill under tongue for chest pain. May repeat in 5 min. Call 911 if no relief. fluticasone propionate [Flonase Allergy Relief] 50 mcg/actuation [place],Suspension 2 spray INTRANASAL QAM PRN (Reason: Nasal Congestion) Rx Instructions: use following nasal saline aspirin 81 mg Tablet,Delayed Release (Dr/Ec) 81 mg PO HS Qty: 0 0RF dicyclomine 20 mg Tablet 20 mg PO TID PRN (Reason: IBS) levothyroxine 137 mcg tablet 137 mcg PO DAILYBB diltiazem HCl 360 mg tablet extended release 24 hr 360 mg PO QPM rosuvastatin 5 mg tablet 5 mg PO DAILY coenzyme Q10 [CoQ-10] 100 mg Capsule 100 mg PO DAILY allopurinol 300 mg tablet 300 mg PO QAM Eliquis 5 mg tablet 5 mg PO BID Qty: 60 0RF pantoprazole 40 mg tablet,delayed release (DR/EC) 40 mg PO DAILY Rx Instructions: take 40 mg daily allopurinol 300 mg Tablet 150 mg PO QPM loperamide 2 mg Tablet 2 mg PO QID PRN (Reason: Diarrhea) atenolol 25 mg tablet 12.5 mg PO DAILY famotidine 20 mg Tablet 20 mg PO BID Probiotic For Women 1 tab PO DAILY Referrals Referrals: Rafa Bergman MD [Primary Care Provider] -
[2023-02-24 10:04] LABS: Basophils # (auto) 0.04 K/uL (0.00-0.20); Basophils % (auto) 0.5 %; Eosinophils % (auto) 1.4 %; Hematocrit (blood only) 39.8 % (37.0-47.0); Hemoglobin 12.4 g/dl (12.0-16.0); Immature Granulocytes # (auto) 0.05 K/uL (0.01-0.20); Immature Granulocytes % (auto) 0.7 %; Lymphocytes # (auto) 1.54 K/uL (1.20-3.40); Lymphocytes % (auto) 20.9 %; Mean Corpuscular Hemoglobin 32.9 pg (25.0-34.0); Mean Corpuscular Hgb Conc 31.2 g/dL (32.0-36.0); Mean Corpuscular Volume 105.6 fL (80.0-100.0); Monocytes # (auto) 0.87 K/uL (0.11-0.59); Monocytes % (auto) 11.8 %; Neutrophils # (auto) 4.78 K/uL (1.40-6.50); Neutrophils % (auto) 64.7 %; Platelet Count 346 K/uL (130-400); RDW Coefficient of Variation 15.9 % (11.5-14.5); RDW Standard Deviation 61.2 fL (36.4-46.3); Red Blood Count 3.77 M/uL (4.20-5.40); White Blood Count 7.38 K/ul (4.8-10.8)
[2023-02-24 10:22] LABS: Alanine Aminotransferase 12 U/L (7-52); Albumin Globulin Ratio 1.4 (0.9-2); Alkaline Phosphatase 91 U/L (34-104); Anion Gap 6 (3-11); Aspartate Aminotransferase 6 U/L (13-39); BUN Creatinine Ratio 21.3 (10-20); Bilirubin,Total 0.4 mg/dl (0.2-1.0); Blood Urea Nitrogen 17 mg/dl (6-23); Calcium 7.1 mg/dl (8.6-10.3); Carbon Dioxide 26 mmol/L (21-32); Chloride 112 mmol/L (98-107); Est GFR (African American) 81.8 ml/min; Est GFR (Non-African American) 70.6 ml/min; Globulin 2.2 gm/dl (2.5-4.0); Glucose 123 mg/dl (70-99(Fasting)); Magnesium 1.6 mg/dl (1.7-2.4); Potassium 3.8 mmol/L (3.5-5.1); Sodium 144 mmol/L (136-145); Total Protein 5.2 gm/dl (6.0-8.3)
[2023-02-24 10:26] LABS: Prothrombin Time 11.4 Seconds (9.0-12.0)
[2023-02-24 10:30] LABS: Troponin I High Sensitivity 4.3 pg/ml (0-14)
[2023-02-24 10:39] LABS: Thyroid Stimulating Hormone 1.488 uIu/ml (0.300-4.500)
--- NOTE | 2023-02-24 11:23 | CT Scan Report ---
CT head/brain wo con CLINICAL HISTORY: weakness Technique: Contiguous axial CT images of the head were acquired from the base of the skull to the renaldo ollie without intravenous contrast administration. Images were viewed in brain, subdural and bone [facility]. Automated dose lowering techniques and/or adjustment according to patient size were utilized for this exam. Comparison: Comparison is made to CT head 01/03/2021 Findings: The ventricles, basal cisterns, and cerebral sulci are normal. There is no acute intracranial hemorrh age or evidence of acute territorial infarction. Neither mass effect, shift of the midline structures , nor abnormal extra-axial fluid collections are shown. Imaged portions of the paranasal sinuses and mastoid air cells are clear. The orbits appear normal. There are no acute fractures of the calvaria or scalp swelling. Impression: No acute intracranial hemorrhage, no evidence of acute territorial infarction or other acute intracra nial disease process. ACT 112: Negative or not required by law. Electronically signed by: Rafael Solitario M.D. 02/24/2023 11:21 AM
[2023-02-24] MEDS ORDERED: CALCIUM GLUCONATE 1,000 MG/60 ML BAG IV STA (11:37)
[2023-02-24] MEDS ORDERED: MAGNESIUM SULFATE / D5W 1 GM/100 ML BAG IV STA (11:38)
[2023-02-24 11:50] LABS: Adenovirus PCR Not Detected (NotDetected); Bordetella parapertussis PCR Not Detected (NotDetected); Bordetella pertussis PCR Not Detected (NotDetected); Chlamydia pneumoniae PCR Not Detected (NotDetected); Coronavirus 229E PCR Not Detected (NotDetected); Coronavirus CoV-2 (COVID19)PCR Not Detected (NotDetected); Coronavirus HKU1 PCR Not Detected (NotDetected); Coronavirus NL63 PCR Not Detected (NotDetected); Coronavirus OC43PCR Not Detected (NotDetected); Human Metapneumovirus PCR Not Detected (NotDetected); Influenza A PCR Not Detected (NotDetected); Influenza B PCR Not Detected (NotDetected); Mycoplasma pneumoniae PCR Not Detected (NotDetected); Parainfluenza Virus 1 PCR Not Detected (NotDetected); Parainfluenza Virus 2 PCR Not Detected (NotDetected); Parainfluenza Virus 3 PCR Not Detected (NotDetected); Parainfluenza Virus 4 PCR Not Detected (NotDetected); Respiratory Syncytial VirusPCR Not Detected (NotDetected); Rhinovirus/Enterovirus PCR Not Detected (NotDetected)
--- NOTE | 2023-02-24 11:52 | XRay Report ---
XR chest 1V portable CLINICAL HISTORY: weakness TECHNIQUE: Single frontal radiograph of the chest was obtained. Comparison: Comparison is made to chest radiograph 01/16/2023 FINDINGS: An implanted pacemaker is seen. Calcified aortic knob is seen. Bilateral lower lung linear opacities likely represent atelectasis. Blunting of left costophrenic angle is again seen likely due to extrapl eural fat. IMPRESSION: There is bilateral airspace opacity which likely represent atelectasis with or without superimposed a spiration/pneumonia. ACT 112: Negative or not required by law. Electronically signed by: Rafael Solitario M.D. 02/24/2023 11:51 AM
[2023-02-24 12:19] LABS: Appearance Urine Slightly Cloudy (Clear); Bilirubin Urine Negative (Negative); Blood Urine Negative (Negative); Color Urine Yellow; Glucose Urine UA Negative (Negative); Ketones Urine Negative (Negative); Leukocyte Esterase Urine Negative (Negative); Nitrite Urine Negative (Negative); Protein Urine 1+ (Negative); Specific Gravity Urine >= 1.030 (1.000-1.030); Urobilinogen Urine Negative (Negative)
[2023-02-24 12:27] LABS: Epithelial Cell Urine >30 /lpf (0-5)
[2023-02-24 12:28] LABS: RBC Urine 0-4 /hpf (0-4); WBC Urine 0-5 /hpf (0-5)
[2023-02-24 12:29] LABS: Bacteria Urine 1+ (Negative)
--- NOTE | 2023-02-24 12:51 | Electrocardiogram Report ---
Test Reason : Blood Pressure : / mmHG Vent. Rate : 098 BPM Atrial Rate : 098 BPM P-R Int : 178 ms QRS Dur : 084 ms QT Int : 378 ms P-R-T Axes : 037 -02 002 degrees QTc Int : 482 ms Poor data quality, interpretation may be adversely affected Sinus rhythm Nonspecific T wave abnormality Anterior leads Abnormal ECG When compared with ECG of 16-JAN-2023 17:16, No significant change Confirmed by David Marin ([id number]) on 02/24/2023 12:51:07 PM Referred By: REFERRED SELF Confirmed By:David Marin
[2023-02-24 13:06] LABS: Base Excess VBG -0.6 mEq/L; HCO3 VBG 26 mmol/L; Oxygen Saturation VBG < 60.0 %; PCO2 VBG 49 mmHg (38-50); PO2 VBG 32 mmHg; pH VBG 7.33 (7.36-7.41)
--- NOTE | 2023-02-24 13:24 | History & Physical Report ---
Date of Service February 24, 2023 Assessment & Plan (1) Weakness: (2) History of pulmonary embolism: (3) Dyspnea on exertion: (4) CAD in [place] artery: (5) Ischemic cardiomyopathy: (6) Hypothyroidism: (7) Dyslipidemia: (8) GERD (gastroesophageal reflux disease): Plan This is a 77yo F with a PMHx significant for diverticulitis and gastroenteritis 2/2 astrovirus infection, Hx PE with associated heart strain and Hx of DVT, hiatal hernia, mild asthma, CAD, history of tachybradycardia syndrome, ischemic cardiomyopathy, HTN, HLD, CKD stage III, hypothyroidism, GERD, history of DVT/PE who presents with progressing generalized weakness and dyspnea on exertion. Dyspnea on Exertion Per ED provider, witnessed pt's O2 sat drop to the 80s with ambulation to the bathroom Currently on 2L of oxygen, does not use oxygen at baseline Pt denies cough, congestion, chest pain Biofire negative Chest XRAY with atelectatic changes vs. aspiration/pneumonia, CT chest PE pending hs-troponin wnl, EKG with no acute changes BNP pending Last echo in August 2022 noted an enlarged right ventricle with Harry's sign suggestive of PE at that time. Repeat echo pending Continue oxygen supplementation as needed Consider cardiology consult based on the results Generalized Weakness Fatigue Uncertain etiology, acute in onset Pt saw her PCP for this about 2 weeks ago- noted she had just been weaned off of prednisone that she was on daily for 4 months Symptoms possibly related to her dyspnea on exertion process PT/OT ordered Hx of bilateral pulmonary emboli Noted during last admission in August 2022 Currently on Eliquis 5mg BID, states has been taking it as prescribed H/o VTE in the past so likely needs lifelong anticoagulation GERD/Hiatal hernia Continue pantoprazole, famotidine Tachy-chintan syndrome/Ischemic cardiomyopathy s/p dual chamber pacemaker. 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 Hx obtained from the pt, chart review and EPIC records. Pt states that her symptoms started about 8 days ago where she started feeling exhausted. States she has to stop and rest even with walking from her bed to the bathroom. States she saw her pcp for this and b12 deficiency was noted and supplemented. However she states that her symptoms have been worsening, especially on thanksgiving. States she did not eat much, had only gravy and stuffing. States she still works and does not use a cane or walker at baseline. Has not been able to stand at work since this started. Denies chest pain, SOB, cough. States she thought her symptoms were related to her thyroid but she was told by her pcp and ED provider today that her thyroid function is fine. Notes she had eye surgery 6 weeks ago. Lives at home with her daughter. Per ED provider pt had pulse ox on and desaturated to the 80s in the room with ambulation. Hx of PEs but states she has been taking her Eliquis as prescribed. Allergies Allergy/AdvReac Type Severity Reaction Status Date / Time imipenem Allergy Severe ANAPHYLAXIS Verified 11/16/22 20:55 Sulfa (Sulfonamide Allergy Severe hives,sob, Verified 11/16/22 20:55 Antibiotics) can take Dyazide daptomycin AdvReac Severe Anaphylaxis Unverified 11/16/22 20:55 colchicine AdvReac Intermediate diarrhea Verified 11/16/22 20:55 metoprolol AdvReac Mild fatigue Verified 11/16/22 20:55 zoledronic acid AdvReac Mild NAUSEA AND Verified 11/16/22 20:55 VOMITING Home Medications Medication Instructions Recorded Confirmed Type cholecalciferol (vitamin D3) 50 2,000 unit PO QAM 04/28/18 02/24/23 History mcg (2,000 unit) tablet (Vitamin D3) fexofenadine 180 mg tablet 180 mg PO DAILY 04/28/18 02/24/23 History (Elke Allergy) nitroglycerin 0.4 mg sublingual 0.4 mg sublingual Q5M chest pain 05/01/18 02/24/23 Rx tablet (Nitrostat) #25 tabs aspirin 81 mg tablet,delayed 81 mg PO HS #0 tabs 05/16/18 02/24/23 Rx release fluticasone propionate 50 2 spray intranasal QAM PRN Nasal 06/03/18 02/24/23 History mcg/actuation nasal Congestion spray,suspension (Flonase Allergy Relief) dicyclomine 20 mg tablet 20 mg PO TID PRN IBS 02/12/19 02/24/23 History allopurinol 300 mg tablet 300 mg PO QAM 01/23/21 02/24/23 History coenzyme Q10 100 mg capsule 100 mg PO DAILY 01/23/21 02/24/23 History (CoQ-10) diltiazem HCl 360 mg 360 mg PO QPM 01/23/21 02/24/23 History tablet,extended release 24 hr levothyroxine 137 mcg tablet 137 mcg PO DAILYBB 01/23/21 02/24/23 History rosuvastatin 5 mg tablet 5 mg PO DAILY 01/23/21 02/24/23 History allopurinol 300 mg tablet 150 mg PO QPM 08/18/22 02/24/23 History atenolol 25 mg tablet 12.5 mg PO DAILY 08/18/22 02/24/23 History famotidine 20 mg tablet 20 mg PO BID 08/18/22 02/24/23 History loperamide 2 mg tablet 2 mg PO QID PRN Diarrhea 08/18/22 02/24/23 History apixaban 5 mg tablet (Eliquis) 5 mg PO BID #60 tabs 09/06/22 02/24/23 Rx Probiotic For Women 1 tab PO DAILY 11/16/22 02/24/23 History pantoprazole 40 mg tablet,delayed 40 mg PO DAILY 02/24/23 02/24/23 History release Past Med/Surg History Medical History CAD (coronary artery disease) Dyslipidemia GERD (gastroesophageal reflux disease) History of DVT (deep vein thrombosis) History of non-ST elevation myocardial infarction (NSTEMI) History of pulmonary embolism Hypertension (Unknown) BP better today continue higher dose of metoprolol 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 Hypothyroidism Ischemic cardiomyopathy Non-ST elevated myocardial infarction (non-STEMI) Osteoporosis Retinal vein occlusion of right eye Rupture of left posterior tibialis tendon Vitamin B12 deficiency Surgical History History of cardiac cath S/P BSO (status post bilateral salpingo-oophorectomy) S/P IVC filter Status post biventricular pacemaker Status post hysterectomy Status post right knee replacement Family History Father Coronary heart disease Heart disease Mother Stroke Allergies Grandmother Asthma Grandfather Asthma Other Hypertension No family history of adverse response to anesthesia No family history of bleeding disorder Social History Smoking Status: Never smoker Second Hand Exposure: No; Do You Dip or Chew Tobacco: No; Hx Alcohol Use: No Hx Substance Use: No Preferred Language: Italian Communication Ability: Effective Health Advocate Required: No Beliefs That Will Affect Care: None marital status: Current Living Situation: Family Current Living Situation Comment: Lives with daughter current occupational status: employed How many Children do You have: 1 Feels Safe at Home: Yes Assistive Devices: None Review of Systems Review of Systems: All systems reviewed & are unremarkable except as noted in HPI & below Physical Exam Physical Exam: General: Alert, oriented. No acute distress Skin: No noted rashes or bruises Psych: Appropriate mood and affect Neuro: Difficulty with movements HEENT: NC/AT Chest: Nontender to palpation. CV: RRR Resp: Breath sounds clear bilaterally, no increased effort of breathing. Abdomen: Soft, nontender, nondistended. Extremities: +++ edema in lower extremities bilaterally. Results & Data Results & Data Vital Signs (Past 12 Hours) Vital Signs Temp Pulse Pulse Resp BP BP Pulse Ox 02/24/23 12:07 90 18 151/94 H 97 02/24/23 12:00 87 L 02/24/23 10:41 83 20 106/81 96 02/24/23 09:35 90 02/24/23 09:12 36.7 C 93 H 17 106/69 92 O2 Del Method O2 Flow Rate 02/24/23 12:07 Nasal Cannula 2 02/24/23 12:00 Room Air 02/24/23 10:41 Nasal Cannula 2 02/24/23 09:35 02/24/23 09:12 Room Air Code Status & VTE Plan VTE Prophylaxis Plan VTE Prophylaxis will be ordered: Yes
[2023-02-24] MEDS ORDERED: OPTIRAY 320 500ml IV ONE (13:58)
--- NOTE | 2023-02-24 14:36 | CT Scan Report ---
CT angio chest PE protocol CLINICAL HISTORY: PE TECHNIQUE: Multidetector row helical CT of the chest was performed with angiographic protocol. Sosa l and sagittal reformations were obtained. Coronal and sagittal MIPS were obtained from the axial fabricio a set and were submitted for review. Automated dose lowering techniques and/or adjustment according to patient size were utilized for this exam. CT DOSE: 572.82 mGy.cm Comparison: Comparison is made to CTA chest 09/02/2022 FINDINGS: Lungs and pleura: Atelectasis versus scarring is seen in the dependent portions of the lungs. Heart and pericardium: Cardiomegaly is seen with biatrial enlargement. Vessels: Evaluation for pulmonary embolism is limited due to patient motion. No evidence of central, lobar, or segmental embolus. Moderate atherosclerotic disease is seen. Mediastinum and milady: Unremarkable. Chest wall and lower neck: Unremarkable. Abdomen: Large hiatal hernia is seen. There is a left renal cyst measuring 18 mm in diameter. Bones: Degenerative changes in the thoracic spine. IMPRESSION: No acute abnormality and in particular no evidence of pulmonary embolus. Atelectasis is seen with a l arge hiatal hernia. Mild cardiomegaly is again seen. ACT 112: Negative or not required by law. Electronically signed by: Rafael Solitario M.D. 02/24/2023 2:35 PM
[2023-02-24] MEDS ORDERED: DICYCLOMINE HCL 20 MG TAB PO PRN (16:19)
[2023-02-24] MEDS: allopurinoL 300 MG TAB PO SCH (20:50)
[2023-02-24] MEDS: APIXABAN 5 MG TABLET PO SCH (20:50)
[2023-02-24] MEDS: FAMOTIDINE 20 MG TAB PO SCH (20:50)
[2023-02-24] MEDS: ASPIRIN 81 MG ECTAB PO SCH (20:50)
[2023-02-24] MEDS: dilTIAZem HCL 180 MG CAPCR PO SCH (20:50)
[2023-02-25] MEDS: LEVOTHYROXINE SODIUM 137 MCG TABLET PO SCH (05:37)
[2023-02-25 06:25] LABS: Basophils # (auto) 0.06 K/uL (0.00-0.20); Basophils % (auto) 0.9 %; Eosinophils # (auto) 0.15 K/uL (0.00-0.50); Eosinophils % (auto) 2.3 %; Hematocrit (blood only) 35.8 % (37.0-47.0); Hemoglobin 11.4 g/dl (12.0-16.0); Immature Granulocytes # (auto) 0.07 K/uL (0.01-0.20); Immature Granulocytes % (auto) 1.1 %; Lymphocytes # (auto) 1.48 K/uL (1.20-3.40); Lymphocytes % (auto) 22.6 %; Mean Corpuscular Hgb Conc 31.8 g/dL (32.0-36.0); Mean Corpuscular Volume 103.8 fL (80.0-100.0); Mean Platelet Volume 9.2 fL (9.4-12.4); Monocytes # (auto) 0.76 K/uL (0.11-0.59); Monocytes % (auto) 11.6 %; Neutrophils # (auto) 4.04 K/uL (1.40-6.50); Neutrophils % (auto) 61.5 %; Platelet Count 339 K/uL (130-400); RDW Coefficient of Variation 15.9 % (11.5-14.5); RDW Standard Deviation 61.4 fL (36.4-46.3); Red Blood Count 3.45 M/uL (4.20-5.40); White Blood Count 6.56 K/ul (4.8-10.8)
[2023-02-25 06:34] LABS: Albumin Globulin Ratio 1.4 (0.9-2); Albumin Level 2.7 gm/dl (3.4-5.0); BUN Creatinine Ratio 17.5 (10-20); Bilirubin,Total 0.3 mg/dl (0.2-1.0); Creatinine Clr Calc Pharmacy 73.6 ml/min; Est GFR (African American) 99.6 ml/min; Est GFR (Non-African American) 85.9 ml/min; Magnesium 1.9 mg/dl (1.7-2.4); Phosphorus 2.3 mg/dl (2.5-4.9); Potassium 3.8 mmol/L (3.5-5.1); Total Protein 4.7 gm/dl (6.0-8.3)
--- NOTE | 2023-02-25 07:28 | Hospitalist Progress Note ---
Date of Service February 25, 2023 Assessment & Plan (1) Weakness: (2) History of pulmonary embolism: (3) Dyspnea on exertion: (4) CAD in [place] artery: (5) Ischemic cardiomyopathy: (6) Hypothyroidism: (7) Dyslipidemia: (8) GERD (gastroesophageal reflux disease): Plan This is a 77yo F with a PMHx significant for diverticulitis and gastroenteritis 2/2 astrovirus infection, Hx PE with associated heart strain and Hx of DVT, hiatal hernia, mild asthma, CAD, history of tachybradycardia syndrome, ischemic cardiomyopathy, HTN, HLD, CKD stage III, hypothyroidism, GERD, history of DVT/PE who presents with progressing generalized weakness and dyspnea on exertion. Dyspnea on Exertion Per ED provider, witnessed pt's O2 sat drop to the 80s with ambulation to the bathroom Currently on 2L of oxygen, does not use oxygen at baseline Pt denies cough, congestion, chest pain Biofire negative Chest XRAY with atelectatic changes vs. aspiration/pneumonia CT chest obtained - no PE - + hiatal hernia, and atelectasis hs-troponin wnl, EKG with no acute changes BNP 41 Last echo in August 2022 noted an enlarged right ventricle with Harry's sign suggestive of PE at that time. Repeat echo obtained -LV systolic function is normal. EF 55 to 60%. RV is nor mal size. RV systolic function is qualitatively normal. Mild mitral regurg. Mild tricuspid regurg. Doppler findings do not suggest pulmonary hypertension. Continue oxygen supplementation as needed Incentive spirometer Pulmonary med. consulted for further recommendations Generalized Weakness Fatigue Uncertain etiology, acute in onset Pt saw her PCP for this about 2 weeks ago- noted she had just been weaned off of prednisone that she was on daily for 4 months (pt reports hx of gout) Symptoms possibly related to her dyspnea on exertion process PT/OT ordered Hx of bilateral pulmonary emboli Noted during last admission in August 2022 Currently on Eliquis 5mg BID, states has been taking it as prescribed H/o VTE in the past so likely needs lifelong anticoagulation GERD/Hiatal hernia Continue pantoprazole, famotidine Tachy-chintan syndrome/Ischemic cardiomyopathy s/p dual chamber pacemaker. Continue diltiazem CAD in [place] artery Continue aspirin, statin Hypertension continue atenolol, diltiazem Hypothyroidism continue levothyroxine Gout continue home allopurinol HLD continue home statin Diet: HH DVT Ppx: Eliquis Code status: FULL Dispo:admitted to med/surg with tele Admission and Anticipated Discharge Date Admission Date: February 24, 2023 Subjective Pt seen in follow up of dyspnea on exertion Currently sitting up in chair in NAD, on suppl. O2 no fever, chills, chest pain, abd. apin + acid reflux on and off Review of Systems Review of Systems: All systems reviewed & are unremarkable except as noted in Subjective Physical Exam Physical Exam: General: WD/wn in no acute distress HEENT: NC/AT Chest: Nontender to palpation. CV: RRR Resp: no increased effort of breathing, + rhonchi, on suppl. O2 via NC Abdomen: Soft, nontender, nondistended. + bowel sounds Extremities: 1+ LE edema b/l Skin: No noted rashes or bruises Results & Data Results & Data Vital Signs (Past 12 Hours) Vital Signs Temp Pulse Pulse Resp BP Pulse Ox O2 Del Method 02/25/23 05:44 96 H 02/25/23 03:00 36.5 C 94 H 18 122/73 92 Nasal Cannula 02/24/23 23:30 99 H 02/24/23 23:00 37 C 101 H 20 144/74 H 92 Nasal Cannula 02/24/23 23:00 Nasal Cannula O2 Flow Rate 02/25/23 05:44 02/25/23 03:00 2 02/24/23 23:30 02/24/23 23:00 2 02/24/23 23:00 2 Laboratory Results 02/25/23 Range/Units 05:50 WBC 6.56 (4.8-10.8) K/ul RBC 3.45 L (4.20-5.40) M/uL Hgb 11.4 L (12.0-16.0) g/dl Hct 35.8 L (37.0-47.0) % MCV 103.8 H (80.0-100.0) fL MCH 33.0 (25.0-34.0) pg MCHC 31.8 L (32.0-36.0) g/dL RDW Std Deviation 61.4 H (36.4-46.3) fL RDW Coeff of Agnes 15.9 H (11.5-14.5) % Plt Count 339 (130-400) K/uL MPV 9.2 L (9.4-12.4) fL Immature Gran % (Auto) 1.1 % Neut % (Auto) 61.5 % Lymph % (Auto) 22.6 % [place] % (Auto) 11.6 % Eos % (Auto) 2.3 % Baso % (Auto) 0.9 % Neut # (Auto) 4.04 (1.40-6.50) K/uL Lymph # (Auto) 1.48 (1.20-3.40) K/uL [place] # (Auto) 0.76 H (0.11-0.59) K/uL Eos # (Auto) 0.15 (0.00-0.50) K/uL Baso # (Auto) 0.06 (0.00-0.20) K/uL Immature Gran # (Auto) 0.07 (0.01-0.20) K/uL Sodium 145 (136-145) mmol/L Potassium 3.8 (3.5-5.1) mmol/L Chloride 115 H (98-107) mmol/L Carbon Dioxide 27 (21-32) mmol/L Anion Gap 3 (3-11) BUN 11 (6-23) mg/dl Creatinine 0.63 (0.6-1.2) mg/dl Est Cr Clr Drug Dosing 73.6 ml/min Est GFR ( Amer) 99.6 ml/min Est GFR (Non-Af Amer) 85.9 ml/min BUN/Creatinine Ratio 17.5 (10-20) Glucose 101 H (70-99(Fasting)) mg/dl Estimat Average Glucose 123 mg/dl Hemoglobin A1c 5.9 H (4.5-5.6) % Calcium 7.0 L (8.6-10.3) mg/dl Ionized Calcium 0.98 L (1.12-1.32) mmol/L Phosphorus 2.3 L (2.5-4.9) mg/dl Magnesium 1.9 (1.7-2.4) mg/dl Total Bilirubin 0.3 (0.2-1.0) mg/dl AST 5 L (13-39) U/L ALT 9 (7-52) U/L Alkaline Phosphatase 82 (34-104) U/L Total Protein 4.7 L (6.0-8.3) gm/dl Albumin 2.7 L (3.4-5.0) gm/dl Globulin 2.0 L (2.5-4.0) gm/dl Albumin/Globulin Ratio 1.4 (0.9-2) Medications Administered Current Inpatient Medications Allopurinol (Allopurinol 300 Mg Tab) 300 mg PO QAM NANY Stop: 03/27/23 08:59 Last Admin: 02/25/23 07:58 Dose: 300 mg Allopurinol (Allopurinol 300 Mg Tab) 150 mg PO QPM NANY Stop: 03/26/23 20:59 Last Admin: 02/24/23 20:50 Dose: 150 mg Apixaban (Apixaban 5 Mg Tablet) 5 mg PO BID NANY Stop: 03/26/23 20:59 Last Admin: 02/25/23 07:58 Dose: 5 mg Aspirin (Aspirin 81 Mg Ectab) 81 mg PO HS NANY Stop: 03/26/23 20:59 Last Admin: 02/24/23 20:50 Dose: 81 mg Atenolol (Atenolol 25 Mg Tablet) 12.5 mg PO DAILY NANY Stop: 03/27/23 08:59 Last Admin: 02/25/23 07:58 Dose: 12.5 mg Dicyclomine HCl (Dicyclomine Hcl 20 Mg Tab) 20 mg PO TID PRN PRN Reason: IBS Stop: 03/26/23 16:18 Diltiazem HCl (Diltiazem Hcl 180 Mg Capcr) 360 mg PO QPM NANY Stop: 03/26/23 20:59 Last Admin: 02/24/23 20:50 Dose: 360 mg Famotidine (Famotidine 20 Mg Tab) 20 mg PO BID NANY Stop: 03/26/23 20:59 Last Admin: 02/25/23 07:57 Dose: 20 mg Levothyroxine Sodium (Levothyroxine Sodium 137 Mcg Tablet) 137 mcg PO DAILYBB NANY Stop: 03/27/23 06:29 Last Admin: 02/25/23 05:37 Dose: 137 mcg Pantoprazole Sodium (Pantoprazole 40 Mg Tab) 40 mg PO DAILY NANY Stop: 03/27/23 08:59 Last Admin: 02/25/23 07:58 Dose: 40 mg Rosuvastatin Calcium (Rosuvastatin Calcium 5 Mg Tab) 5 mg PO DAILY NNAY Stop: 03/27/23 08:59 Last Admin: 02/25/23 07:57 Dose: 5 mg Vitamin D (Cholecalciferol 1,000 Units 25 Mcg Tab) 2,000 units PO [facility] Stop: 03/27/23 08:59 Last Admin: 02/25/23 07:57 Dose: 2,000 units
[2023-02-25] MEDS ORDERED: STAT IV/IM STA (07:33)
[2023-02-25] MEDS ORDERED: CALCIUM GLUCONATE 10% 1,000 MG in SODIUM CHLOR 0.9% MINI-B 50 ML IV ONE (07:45)
[2023-02-25 07:50] LABS: Estimated Average Glucose 123 mg/dl; Hemoglobin A1C 5.9 % (4.5-5.6)
[2023-02-25] MEDS: FAMOTIDINE 20 MG TAB PO SCH ×2 (07:57→22:19)
[2023-02-25] MEDS: ROSUVASTATIN CALCIUM 5 MG TAB PO SCH (07:57)
[2023-02-25] MEDS: CHOLECALCIFEROL 1,000 UNITS 25 MCG TAB PO SCH (07:57)
[2023-02-25] MEDS: APIXABAN 5 MG TABLET PO SCH ×2 (07:58→22:20)
[2023-02-25] MEDS: ATENOLOL 25 MG TABLET PO SCH (07:58)
[2023-02-25] MEDS: PANTOprazole 40 MG TAB PO SCH (07:58)
[2023-02-25] MEDS: allopurinoL 300 MG TAB PO SCH ×2 (07:58→22:19)
[2023-02-25] MEDS ORDERED: NON-FORMULARY MEDICATION (Coenzyme Q10 [Coq-10] 100 mg Capsule) PO SCH (09:00)
--- NOTE | 2023-02-25 14:08 | Pulmonary Consultation ---
Date of Consultation February 25, 2023 Assessment & Plan (1) Acute dyspnea: (2) Hiatal hernia: (3) GERD (gastroesophageal reflux disease): Plan CT chest 02/24/2023 personally reviewed: Motion degraded study Minimal dependent atelectasis bilateral lower lobes Moderate hiatal hernia No clear lung infiltrate appreciated No mediastinal lymphadenopathy 2D echo 02/24/2023: EF 55-60%, grade 1 diastolic dysfunction, mild MR, mild TR, RV normal in size and function -- Shortness of breath on exertion Etiology is not clear CT does not show any clear infiltrate, no pulmonary emboli On physical exam patient has upper airway expiratory wheeze, lower lungs sound clear Respiratory bio fire negative for everything on 02/24/2023 BNP 42 TSH within normal Does have significant atopy and seasonal allergies -- Macrocytic anemia Patient's hemoglobin was around 15 back in October and December Currently it is 11.4, could be one of the reason for dyspnea as well Plan: I will treat the patient as if she has asthma with inhaled bronchodilators and see if she has any improvement in her symptoms Underlying anxiety might also be playing a role. Case was discussed with Dr Bravo Please note the above document was generated using voice recognition software. It may contain grammatical, syntax or spelling errors.Any formal questions or concerns about the content, text or information contained within the body of this dictation should be directly addressed to the provider for clarification. History of Present Illness Attending Physician: Enrique Bravo MD History of Present Illness 78-year-old female presented to the hospital because of shortness of breath Past medical history: PE with history of DVT, hiatal hernia, asthma, tachybradycardia syndrome, hypertension, dyslipidemia, CKD, GERD Pulmonary consulted for the same At the time of examination patient was in mild respiratory distress She was breathing in the low 20s. Saturation was 97-98% on 2 L nasal cannula. I went down to 1 L. 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 Denies any fever or chills at home. Denies any chest congestion Does complain of worsening shortness of breath which has been going on for approximately a week. Denies any increased stress or anxiety in life right now. Has been afebrile. No dysuria, no diarrhea, no headache, no nausea, no vomiting Social history: Lifetime non-smoker. Pets: Has dogs at home. No birds or poultry nearby Allergies: Does have significant seasonal allergies History of asthma in grandfather Allergies Allergy/AdvReac Type Severity Reaction Status Date / Time imipenem Allergy Severe ANAPHYLAXIS Verified 11/16/22 20:55 Sulfa (Sulfonamide Allergy Severe hives,sob, Verified 11/16/22 20:55 Antibiotics) can take Dyazide daptomycin AdvReac Severe Anaphylaxis Unverified 11/16/22 20:55 colchicine AdvReac Intermediate diarrhea Verified 11/16/22 20:55 metoprolol AdvReac Mild fatigue Verified 11/16/22 20:55 zoledronic acid AdvReac Mild NAUSEA AND Verified 11/16/22 20:55 VOMITING Home Medications Medication Instructions Recorded Confirmed Type cholecalciferol (vitamin D3) 50 2,000 unit PO QAM 04/28/18 02/24/23 History mcg (2,000 unit) tablet (Vitamin D3) fexofenadine 180 mg tablet 180 mg PO DAILY 04/28/18 02/24/23 History ([place] Allergy) nitroglycerin 0.4 mg sublingual 0.4 mg sublingual Q5M chest pain 05/01/18 02/24/23 Rx tablet (Nitrostat) #25 tabs aspirin 81 mg tablet,delayed 81 mg PO HS #0 tabs 05/16/18 02/24/23 Rx release fluticasone propionate 50 2 spray intranasal QAM PRN Nasal 06/03/18 02/24/23 History mcg/actuation nasal Congestion spray,suspension (Flonase Allergy Relief) dicyclomine 20 mg tablet 20 mg PO TID PRN IBS 02/12/19 02/24/23 History allopurinol 300 mg tablet 300 mg PO QAM 01/23/21 02/24/23 History coenzyme Q10 100 mg capsule 100 mg PO DAILY 01/23/21 02/24/23 History (CoQ-10) diltiazem HCl 360 mg 360 mg PO QPM 01/23/21 02/24/23 History tablet,extended release 24 hr levothyroxine 137 mcg tablet 137 mcg PO DAILYBB 01/23/21 02/24/23 History rosuvastatin 5 mg tablet 5 mg PO DAILY 01/23/21 02/24/23 History allopurinol 300 mg tablet 150 mg PO QPM 08/18/22 02/24/23 History atenolol 25 mg tablet 12.5 mg PO DAILY 08/18/22 02/24/23 History famotidine 20 mg tablet 20 mg PO BID 08/18/22 02/24/23 History loperamide 2 mg tablet 2 mg PO QID PRN Diarrhea 08/18/22 02/24/23 History apixaban 5 mg tablet (Eliquis) 5 mg PO BID #60 tabs 09/06/22 02/24/23 Rx Probiotic For Women 1 tab PO DAILY 11/16/22 02/24/23 History pantoprazole 40 mg tablet,delayed 40 mg PO DAILY 02/24/23 02/24/23 History release Patient History Medical History CAD (coronary artery disease) Dyslipidemia GERD (gastroesophageal reflux disease) History of DVT (deep vein thrombosis) History of non-ST elevation myocardial infarction (NSTEMI) History of pulmonary embolism Hypertension (Unknown) BP better today continue higher dose of metoprolol 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 Hypothyroidism Ischemic cardiomyopathy Non-ST elevated myocardial infarction (non-STEMI) Osteoporosis Retinal vein occlusion of right eye Rupture of left posterior tibialis tendon Vitamin B12 deficiency Surgical History History of cardiac cath S/P BSO (status post bilateral salpingo-oophorectomy) S/P IVC filter Status post biventricular pacemaker Status post hysterectomy Status post right knee replacement Family History Father Coronary heart disease Heart disease Mother Stroke Allergies Grandmother Asthma Grandfather Asthma Other Hypertension No family history of adverse response to anesthesia No family history of bleeding disorder Social History Smoking Status: Never smoker Second Hand Exposure: No; Do You Dip or Chew Tobacco: No; Hx Alcohol Use: No Hx Substance Use: No Preferred Language: [place] Communication Ability: Effective [employer] Medical Sergeant Required: No Beliefs That Will Affect Care: None marital status: Current Living Situation: Family Current Living Situation Comment: Lives with daughter current occupational status: employed How many Children do You have: 1 Feels Safe at Home: Yes Assistive Devices: Cane and Walker Review of Systems 2 Review of Systems: All systems reviewed & are unremarkable except as noted in HPI & below Physical Exam 2 Physical Exam: Constitutional: No acute distress HEENT: EOMI, PERRLA Respiratory system: Good air entry bilaterally, no rhonchi, no crackles, mild upper airway expiratory wheeze CVS: S1-S2 positive, no murmurs or gallops Abdomen: Soft, nontender, nondistended, positive bowel sounds x4 Extremities: +2 pulses bilaterally radialis/ dorsalis pedis, no cyanosis, no edema, obese Neuro: Awake alert oriented x3 Psych: Normal mood and affect G/U: No [place] Skin: no rashes, warm and dry Lymphatic: no cervical or axillary lymphadenopathy Results & Data Results & Data Vital Signs (Past 12 Hours) Vital Signs Temp Pulse Pulse Resp BP BP Pulse Ox 02/25/23 12:11 36.5 C 77 18 106/74 97 02/25/23 09:25 02/25/23 08:11 36.6 C 75 18 123/75 96 02/25/23 05:44 96 H 02/25/23 03:00 36.5 C 94 H 18 122/73 92 O2 Del Method O2 Flow Rate 02/25/23 12:11 Nasal Cannula 2 02/25/23 09:25 Nasal Cannula 2 02/25/23 08:11 Nasal Cannula 2 02/25/23 05:44 02/25/23 03:00 Nasal Cannula 2 Laboratory Results 02/25/23 05:50 02/25/23 05:50 PG Care Time/CCT Total # of Minutes Spent Total Time Spent with Patient: Total time spent is greater than 50% in coordination of care (as documented) at patient's floor/unit and/or counseling patient: Coding Level of Care Code 98992 INT INP/OBS CARE 3/75MIN Diagnoses Acute dyspnea R06.00 Hiatal hernia K44.9 GERD (gastroesophageal reflux disease) K21.9
[2023-02-25] MEDS: BUDESONIDE 0.25 MG/2 ML VIAL (PULMICORT) NEB SCH (20:26)
[2023-02-25] MEDS: FORMOTEROL 20 MCG/2 ML VIAL INH SCH (20:26)
[2023-02-25] MEDS: dilTIAZem HCL 180 MG CAPCR PO SCH (22:18)
[2023-02-25] MEDS: ASPIRIN 81 MG ECTAB PO SCH (22:20)
[2023-02-26] MEDS: LEVOTHYROXINE SODIUM 137 MCG TABLET PO SCH (05:39)
[2023-02-26 07:28] LABS: Hematocrit (blood only) 35.7 % (37.0-47.0); Hemoglobin 11.4 g/dl (12.0-16.0); Mean Corpuscular Hemoglobin 33.5 pg (25.0-34.0); Mean Corpuscular Hgb Conc 31.9 g/dL (32.0-36.0); Mean Platelet Volume 9.1 fL (9.4-12.4); Platelet Count 359 K/uL (130-400); RDW Coefficient of Variation 15.4 % (11.5-14.5); RDW Standard Deviation 59.5 fL (36.4-46.3); White Blood Count 8.21 K/ul (4.8-10.8)
[2023-02-26 07:48] LABS: BUN Creatinine Ratio 16.7 (10-20); Calcium 7.6 mg/dl (8.6-10.3); Creatinine Clr Calc Pharmacy 68.3 ml/min; Est GFR (African American) 98.1 ml/min; Est GFR (Non-African American) 84.6 ml/min; Magnesium 1.7 mg/dl (1.7-2.4); Phosphorus 2.7 mg/dl (2.5-4.9)
[2023-02-26] MEDS: BUDESONIDE 0.25 MG/2 ML VIAL (PULMICORT) NEB SCH ×2 (07:56→20:01)
[2023-02-26] MEDS: FORMOTEROL 20 MCG/2 ML VIAL INH SCH ×2 (07:57→20:01)
--- NOTE | 2023-02-26 08:10 | Pulmonology Progress Note ---
Date of Service February 26, 2023 Assessment & Plan (1) Acute dyspnea: (2) Hiatal hernia: (3) GERD (gastroesophageal reflux disease): Plan CT chest 02/24/2023 personally reviewed: Motion degraded study Minimal dependent atelectasis bilateral lower lobes Moderate hiatal hernia No clear lung infiltrate appreciated No mediastinal lymphadenopathy 2D echo 02/24/2023: EF 55-60%, grade 1 diastolic dysfunction, mild MR, mild TR, RV normal in size and function -- Shortness of breath on exertion Likely from asthma CT does not show any clear infiltrate, no pulmonary emboli On physical exam patient has upper airway expiratory wheeze, lower lungs sound clear Respiratory bio fire negative for everything on 02/24/2023 BNP 42 TSH within normal Does have significant atopy and seasonal allergies -- Macrocytic anemia Patient's hemoglobin was around 15 back in October and December Currently it is 11.4, could be one of the reason for dyspnea as well Plan: Significant improvement with inhaled bronchodilators Would recommend the patient to be discharged on either Symbicort 80-4.5 MCG 2 puffs twice a day or Advair 113-14 mcg, 2 puffs twice a day along with montelukast 10 mg on a daily basis She will benefit from outpatient pulmonary follow-up as well as PFT Case was discussed with Dr Bravo Please note the above document was generated using voice recognition software. It may contain grammatical, syntax or spelling errors.Any formal questions or concerns about the content, text or information contained within the body of this dictation should be directly addressed to the provider for clarification. Admission and Anticipated Discharge Date Admission Date: February 24, 2023 Subjective Patient seen and examined at bedside. No acute distress, no adverse events overnight. Denies any headache, no nausea, no vomiting Overall she says his breathing is much better The nebulizer treatment is helping her Denies any headache. No blurry vision Fair appetite Review of Systems 2 Review of Systems: All systems reviewed & are unremarkable except as noted in Subjective Physical Exam 2 Physical Exam: Constitutional: No acute distress HEENT: EOMI, PERRLA Respiratory system: Good air entry bilaterally, no rhonchi, no crackles, no wheeze CVS: S1-S2 positive, no murmurs or gallops Abdomen: Soft, nontender, nondistended, positive bowel sounds x4 Extremities: +2 pulses bilaterally radialis/ dorsalis pedis, no cyanosis, no edema, obese Neuro: Awake alert oriented x3 Psych: Normal mood and affect G/U: No [place] Skin: no rashes, warm and dry Lymphatic: no cervical or axillary lymphadenopathy Results & Data Results & Data Vital Signs (Past 12 Hours) Vital Signs Temp Pulse Pulse Resp BP Pulse Ox O2 Del Method 02/26/23 08:00 36.3 C L 88 16 114/78 97 Nasal Cannula 02/26/23 07:57 85 02/26/23 07:57 93 H 16 94 Nasal Cannula 02/26/23 07:40 Nasal Cannula 02/26/23 03:46 36.6 C 65 14 111/67 97 Nasal Cannula 02/26/23 00:00 90 02/25/23 23:21 36.7 C 83 16 138/76 95 Nasal Cannula 02/25/23 20:29 98 H 16 93 Nasal Cannula O2 Flow Rate 02/26/23 08:00 2 02/26/23 07:57 02/26/23 07:57 2 02/26/23 07:40 2 02/26/23 03:46 3 02/26/23 00:00 02/25/23 23:21 3 02/25/23 20:29 3 Laboratory Results 02/26/23 06:48 02/26/23 06:48 PG Care Time/CCT Total # of Minutes Spent Total Time Spent with Patient: Total time spent is greater than 50% in coordination of care (as documented) at patient's floor/unit and/or counseling patient: Coding Level of Care Code 55534 SUB INP/OBS CARE 2/35MIN Diagnoses Acute dyspnea R06.00 Hiatal hernia K44.9 GERD (gastroesophageal reflux disease) K21.9
[2023-02-26] MEDS: PANTOprazole 40 MG TAB PO SCH (09:39)
[2023-02-26] MEDS: APIXABAN 5 MG TABLET PO SCH ×2 (09:39→20:33)
[2023-02-26] MEDS: ROSUVASTATIN CALCIUM 5 MG TAB PO SCH (09:40)
[2023-02-26] MEDS: ATENOLOL 25 MG TABLET PO SCH (09:40)
[2023-02-26] MEDS: CHOLECALCIFEROL 1,000 UNITS 25 MCG TAB PO SCH (09:40)
[2023-02-26] MEDS: FAMOTIDINE 20 MG TAB PO SCH ×2 (09:40→20:34)
[2023-02-26] MEDS: allopurinoL 300 MG TAB PO SCH ×2 (09:40→20:32)
[2023-02-26] MEDS ORDERED: MAGNESIUM SULFATE / D5W 1 GM/100 ML BAG IV ONE (19:03)
--- NOTE | 2023-02-26 19:03 | Hospitalist Progress Note ---
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 Dyspnea on Exertion Per ED provider, witnessed pt's O2 sat drop to the 80s with ambulation to the bathroom Currently on 2L of oxygen, does not use oxygen at baseline Pt denies cough, congestion, chest pain Biofire negative Chest XRAY with atelectatic changes vs. aspiration/pneumonia CT chest obtained - no PE - + hiatal hernia, and atelectasis hs-troponin wnl, EKG with no acute changes BNP 41 Last echo in August 2022 noted an enlarged right ventricle with Harry's sign suggestive of PE at that time. Repeat echo obtained -LV systolic function is normal. EF 55 to 60%. RV is nor mal size. RV systolic function is qualitatively normal. Mild mitral regurg. Mild tricuspid regurg. Doppler findings do not suggest pulmonary hypertension. Continue oxygen supplementation as needed Incentive spirometer Pulmonary med. consulted for further recommendations - started bronchodilators for poss. asthma. Pt 's breathing seems to be improving. Generalized Weakness Fatigue Uncertain etiology, acute in onset Pt saw her PCP for this about 2 weeks ago- noted she had just been weaned off of prednisone that she was on daily for 4 months (pt reports hx of gout) Symptoms possibly related to her dyspnea on exertion process PT/OT ordered Hx of bilateral pulmonary emboli Noted during last admission in August 2022 Currently on Eliquis 5mg BID, states has been taking it as prescribed H/o VTE in the past so likely needs lifelong anticoagulation GERD/Hiatal hernia Continue pantoprazole, famotidine Tachy-chintan syndrome/Ischemic cardiomyopathy s/p dual chamber pacemaker. Continue diltiazem CAD in [place] artery Continue aspirin, statin Hypertension continue atenolol, diltiazem Hypothyroidism continue levothyroxine Gout continue home allopurinol HLD continue home statin Diet: HH DVT Ppx: Eliquis Code status: FULL Dispo:admitted to med/surg with tele Admission and Anticipated Discharge Date Admission Date: February 24, 2023 Subjective Pt seen in follow up of dyspnea on exertion Currently laying in bed in NAD no fever, chills, chest pain, abd. pain + acid reflux on and off Feels breathing is better Review of Systems Review of Systems: All systems reviewed & are unremarkable except as noted in Subjective Physical Exam Physical Exam: General: WD/wn in no acute distress HEENT: NC/AT Chest: Nontender to palpation. CV: RRR Resp: no increased effort of breathing, + rhonchi, on suppl. O2 via NC Abdomen: Soft, nontender, nondistended. + bowel sounds Extremities: 1+ LE edema b/l Skin: No noted rashes or bruises Results & Data Results & Data Vital Signs (Past 12 Hours) Vital Signs Temp Pulse Pulse Resp BP Pulse Ox O2 Del Method 02/26/23 15:47 36.4 C L 102 H 16 163/78 H 92 Room Air 02/26/23 15:00 89 02/26/23 11:21 36.6 C 87 16 130/80 91 Room Air 02/26/23 08:00 36.3 C L 88 16 114/78 97 Nasal Cannula 02/26/23 07:57 85 02/26/23 07:57 93 H 16 94 Nasal Cannula 02/26/23 07:40 Nasal Cannula O2 Flow Rate 02/26/23 15:47 02/26/23 15:00 02/26/23 11:21 02/26/23 08:00 2 02/26/23 07:57 02/26/23 07:57 2 02/26/23 07:40 2 Laboratory Results 02/26/23 Range/Units 06:48 WBC 8.21 (4.8-10.8) K/ul RBC 3.40 L (4.20-5.40) M/uL Hgb 11.4 L (12.0-16.0) g/dl Hct 35.7 L (37.0-47.0) % MCV 105.0 H (80.0-100.0) fL MCH 33.5 (25.0-34.0) pg MCHC 31.9 L (32.0-36.0) g/dL RDW Std Deviation 59.5 H (36.4-46.3) fL RDW Coeff of Agnes 15.4 H (11.5-14.5) % Plt Count 359 (130-400) K/uL MPV 9.1 L (9.4-12.4) fL Sodium 145 (136-145) mmol/L Potassium 4.0 (3.5-5.1) mmol/L Chloride 114 H (98-107) mmol/L Carbon Dioxide 28 (21-32) mmol/L Anion Gap 3 (3-11) BUN 11 (6-23) mg/dl Creatinine 0.66 (0.6-1.2) mg/dl Est Cr Clr Drug Dosing 68.3 ml/min Est GFR ( Amer) 98.1 ml/min Est GFR (Non-Af Amer) 84.6 ml/min BUN/Creatinine Ratio 16.7 (10-20) Glucose 92 (70-99(Fasting)) mg/dl Calcium 7.6 L (8.6-10.3) mg/dl Phosphorus 2.7 (2.5-4.9) mg/dl Magnesium 1.7 (1.7-2.4) mg/dl Medications Administered Current Inpatient Medications Allopurinol (Allopurinol 300 Mg Tab) 300 mg PO QAM NANY Stop: 03/27/23 08:59 Last Admin: 02/26/23 09:40 Dose: 300 mg Allopurinol (Allopurinol 300 Mg Tab) 150 mg PO QPM NANY Stop: 03/26/23 20:59 Last Admin: 02/25/23 22:19 Dose: 150 mg Apixaban (Apixaban 5 Mg Tablet) 5 mg PO BID NANY Stop: 03/26/23 20:59 Last Admin: 02/26/23 09:39 Dose: 5 mg Aspirin (Aspirin 81 Mg Ectab) 81 mg PO HS NANY Stop: 03/26/23 20:59 Last Admin: 02/25/23 22:20 Dose: 81 mg Atenolol (Atenolol 25 Mg Tablet) 12.5 mg PO DAILY NANY Stop: 03/27/23 08:59 Last Admin: 02/26/23 09:40 Dose: 12.5 mg Budesonide (Budesonide 0.25 Mg/2 Ml Vial (Pulmicort)) 0.25 mg NEB BIDR NANY Stop: 03/27/23 18:59 Last Admin: 02/26/23 07:56 Dose: 0.25 mg Cyanocobalamin (Cyanocobalamin (B-12) 500 Mcg Tablet) 1,000 mcg PO QAM NANY Stop: 03/28/23 16:24 Dicyclomine HCl (Dicyclomine Hcl 20 Mg Tab) 20 mg PO TID PRN PRN Reason: IBS Stop: 03/26/23 16:18 Diltiazem HCl (Diltiazem Hcl 180 Mg Capcr) 360 mg PO QPM NANY Stop: 03/26/23 20:59 Last Admin: 02/25/23 22:18 Dose: 360 mg Famotidine (Famotidine 20 Mg Tab) 20 mg PO BID NANY Stop: 03/26/23 20:59 Last Admin: 02/26/23 09:40 Dose: 20 mg Formoterol Fumarate (Formoterol 20 Mcg/2 Ml Vial) 20 mcg INH BIDR NANY Stop: 03/27/23 18:59 Last Admin: 02/26/23 07:57 Dose: 20 mcg Levothyroxine Sodium (Levothyroxine Sodium 137 Mcg Tablet) 137 mcg PO DAILYBB NANY Stop: 03/27/23 06:29 Last Admin: 02/26/23 05:39 Dose: 137 mcg Montelukast Sodium (Montelukast Sodium 10 Mg Tablet) 10 mg PO HS NANY Stop: 03/28/23 20:59 Pantoprazole Sodium (Pantoprazole 40 Mg Tab) 40 mg PO DAILY NANY Stop: 03/27/23 08:59 Last Admin: 02/26/23 09:39 Dose: 40 mg Rosuvastatin Calcium (Rosuvastatin Calcium 5 Mg Tab) 5 mg PO DAILY NANY Stop: 03/27/23 08:59 Last Admin: 02/26/23 09:40 Dose: 5 mg Vitamin D (Cholecalciferol 1,000 Units 25 Mcg Tab) 2,000 units PO QAM NANY Stop: 03/27/23 08:59 Last Admin: 02/26/23 09:40 Dose: 2,000 units
[2023-02-26] MEDS: CYANOCOBALAMIN (B-12) 500 MCG TABLET PO SCH (20:31)
[2023-02-26] MEDS: dilTIAZem HCL 180 MG CAPCR PO SCH (20:32)
[2023-02-26] MEDS: ASPIRIN 81 MG ECTAB PO SCH (20:33)
[2023-02-26] MEDS: MONTELUKAST SODIUM 10 MG TABLET PO SCH (20:34)
[2023-02-27] MEDS: LEVOTHYROXINE SODIUM 137 MCG TABLET PO SCH (06:12)
[2023-02-27] MEDS: FORMOTEROL 20 MCG/2 ML VIAL INH SCH (07:04)
[2023-02-27] MEDS: BUDESONIDE 0.25 MG/2 ML VIAL (PULMICORT) NEB SCH (07:04)
[2023-02-27 07:16] LABS: Hematocrit (blood only) 36.3 % (37.0-47.0); Hemoglobin 11.5 g/dl (12.0-16.0); Mean Corpuscular Hemoglobin 32.6 pg (25.0-34.0); Mean Corpuscular Hgb Conc 31.7 g/dL (32.0-36.0); Mean Corpuscular Volume 102.8 fL (80.0-100.0); Mean Platelet Volume 9.1 fL (9.4-12.4); Platelet Count 390 K/uL (130-400); RDW Coefficient of Variation 15.3 % (11.5-14.5); RDW Standard Deviation 57.7 fL (36.4-46.3); Red Blood Count 3.53 M/uL (4.20-5.40); White Blood Count 8.18 K/ul (4.8-10.8)
[2023-02-27 07:39] LABS: BUN Creatinine Ratio 14.9 (10-20); Creatinine Clr Calc Pharmacy 66.8 ml/min; Est GFR (African American) 97.6 ml/min; Est GFR (Non-African American) 84.2 ml/min; Magnesium 1.7 mg/dl (1.7-2.4); Phosphorus 3.2 mg/dl (2.5-4.9)
--- NOTE | 2023-02-27 07:42 | Pulmonology Progress Note ---
Date of Service February 27, 2023 Assessment & Plan (1) Acute dyspnea: (2) Hiatal hernia: (3) GERD (gastroesophageal reflux disease): Plan CT chest 02/24/2023 personally reviewed: Motion degraded study Minimal dependent atelectasis bilateral lower lobes Moderate hiatal hernia No clear lung infiltrate appreciated No mediastinal lymphadenopathy 2D echo 02/24/2023: EF 55-60%, grade 1 diastolic dysfunction, mild MR, mild TR, RV normal in size and function -- Shortness of breath on exertion Likely from asthma CT does not show any clear infiltrate, no pulmonary emboli On physical exam patient has upper airway expiratory wheeze, lower lungs sound clear Respiratory bio fire negative for everything on 02/24/2023 BNP 42 TSH within normal Does have significant atopy and seasonal allergies -- Macrocytic anemia Patient's hemoglobin was around 15 back in October and December Currently it is 11.4, could be one of the reason for dyspnea as well Plan: Would recommend the patient to be discharged on either Symbicort 80-4.5 MCG 2 puffs twice a day or Advair 113-14 mcg, 2 puffs twice a day along with montelukast 10 mg on a daily basis She will benefit from outpatient pulmonary follow-up as well as PFT Case discussed with hospitalist No further recommendation from pulmonary perspective, will sign off Please call directly with any questions Please note the above document was generated using voice recognition software. It may contain grammatical, syntax or spelling errors.Any formal questions or concerns about the content, text or information contained within the body of this dictation should be directly addressed to the provider for clarification. Admission and Anticipated Discharge Date Admission Date: February 24, 2023 Subjective Patient seen and examined at bedside. No acute distress, no adverse events overnight Overall when it comes to her breathing she is doing much better. Her shortness of breath has resolved. Today while she was walking she did feel dizzy and the nurse checked her blood pressure and she was positive for orthostasis Denies any nausea vomiting No headache, no blurry vision Denies any cough, no hemoptysis Review of Systems 2 Review of Systems: All systems reviewed & are unremarkable except as noted in Subjective Physical Exam 2 Physical Exam: Constitutional: No acute distress HEENT: EOMI, PERRLA Respiratory system: Good air entry bilaterally, no rhonchi, no crackles, no wheeze CVS: S1-S2 positive, no murmurs or gallops Abdomen: Soft, nontender, nondistended, positive bowel sounds x4 Extremities: +2 pulses bilaterally radialis/ dorsalis pedis, no cyanosis, no edema, obese Neuro: Awake alert oriented x3 Psych: Normal mood and affect G/U: No [place] Skin: no rashes, warm and dry Lymphatic: no cervical or axillary lymphadenopathy Results & Data Results & Data Vital Signs (Past 12 Hours) Vital Signs Temp Pulse Pulse Resp BP BP Pulse Ox 02/27/23 07:28 93 H 02/27/23 07:04 91 H 16 93 02/27/23 03:28 36.7 C 92 H 18 161/90 H 92 02/27/23 00:00 100 H 02/26/23 23:15 37.1 C 100 H 18 166/81 H 91 02/26/23 20:58 36.4 C L 91 H 92 H 126/80 92 02/26/23 20:01 88 16 90 02/26/23 20:00 O2 Del Method O2 Flow Rate 02/27/23 07:28 02/27/23 07:04 Nasal Cannula 1 02/27/23 03:28 Nasal Cannula 2 02/27/23 00:00 02/26/23 23:15 Nasal Cannula 2 02/26/23 20:58 Nasal Cannula 4 02/26/23 20:01 Room Air 02/26/23 20:00 Room Air Laboratory Results 02/27/23 06:46 02/27/23 06:46 PG Care Time/CCT Total # of Minutes Spent Total Time Spent with Patient: Total time spent is greater than 50% in coordination of care (as documented) at patient's floor/unit and/or counseling patient: Coding Level of Care Code 56379 SUB INP/OBS CARE 2/35MIN Diagnoses Acute dyspnea R06.00 Hiatal hernia K44.9 GERD (gastroesophageal reflux disease) K21.9
[2023-02-27] MEDS: ROSUVASTATIN CALCIUM 5 MG TAB PO SCH (08:37)
[2023-02-27] MEDS: allopurinoL 300 MG TAB PO SCH ×2 (08:38→19:31)
[2023-02-27] MEDS: CYANOCOBALAMIN (B-12) 500 MCG TABLET PO SCH (08:38)
[2023-02-27] MEDS: CHOLECALCIFEROL 1,000 UNITS 25 MCG TAB PO SCH (08:38)
[2023-02-27] MEDS: FAMOTIDINE 20 MG TAB PO SCH ×2 (08:38→19:30)
[2023-02-27] MEDS: APIXABAN 5 MG TABLET PO SCH ×2 (08:38→19:31)
[2023-02-27] MEDS: ATENOLOL 25 MG TABLET PO SCH (08:38)
[2023-02-27] MEDS: PANTOprazole 40 MG TAB PO SCH (08:38)
[2023-02-27] MEDS ORDERED: MAGNESIUM SULFATE / D5W 1 GM/100 ML BAG IV ONE (08:46)
--- NOTE | 2023-02-27 16:15 | Hospitalist Progress Note ---
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 Dyspnea on Exertion Per ED provider, witnessed pt's O2 sat drop to the 80s with ambulation to the bathroom On 2L of oxygen, does not use oxygen at baseline Pt denies cough, congestion, chest pain Biofire negative Chest XRAY with atelectatic changes vs. aspiration/pneumonia CT chest obtained - no PE - + hiatal hernia, and atelectasis hs-troponin wnl, EKG with no acute changes BNP 41 Last echo in August 2022 noted an enlarged right ventricle with Harry's sign suggestive of PE at that time. Repeat echo obtained -LV systolic function is normal. EF 55 to 60%. RV is normal size. RV systolic function is qualitatively normal. Mild mitral regurg. Mild tricuspid regurg. Doppler findings do not suggest pulmonary hypertension. Continue oxygen supplementation as needed Incentive spirometer Pulmonary med. consulted for further recommendations - started bronchodilators for poss. asthma. Pt 's breathing seems to be improving. Currently she is on RA. Generalized Weakness Fatigue Uncertain etiology, acute in onset Pt saw her PCP for this about 2 weeks ago- noted she had just been weaned off of prednisone that she was on daily for 4 months (pt reports hx of gout) Symptoms possibly related to her dyspnea on exertion process PT/OT ordered Hx of bilateral pulmonary emboli Noted during last admission in August 2022 Currently on Eliquis 5mg BID, states has been taking it as prescribed H/o VTE in the past so likely needs lifelong anticoagulation GERD/Hiatal hernia Continue pantoprazole, famotidine Tachy-chintan syndrome/Ischemic cardiomyopathy s/p dual chamber pacemaker. Continue diltiazem CAD in [place] artery Continue aspirin, statin Hypertension continue atenolol, diltiazem - pt feels often dizzy/lightheaded after she takes her AM meds, will hold atenolol and will cont. to monitor. Hypothyroidism continue levothyroxine Gout continue home allopurinol HLD continue home statin Diet: HH DVT Ppx: Eliquis Code status: FULL Dispo:admitted to med/surg with tele Admission and Anticipated Discharge Date Admission Date: February 24, 2023 Subjective Pt seen in follow up of dyspnea on exertion Currently sitting up in chair in NAD no fever, chills, chest pain, abd. pain + acid reflux on and off Feels breathing is better however feels dizzy/ lightheaded - found orthostatic, also says she feels like this for a while - after she takes morning pills. Will put atenolol on hold for now, will cont. to closely monitor. will provide gentle fluids. Review of Systems Review of Systems: All systems reviewed & are unremarkable except as noted in Subjective Physical Exam Physical Exam: General: WD/WN in no acute distress HEENT: NC/AT Chest: Nontender to palpation. CV: RRR Resp: no increased effort of breathing, + mild rhonchi, on RA Abdomen: Soft, nontender, nondistended. + bowel sounds Extremities: 1+ LE edema b/l Skin: No noted rashes or bruises Results & Data Results & Data Vital Signs (Past 12 Hours) Vital Signs Temp Pulse Pulse Resp BP Pulse Ox O2 Del Method 02/27/23 15:52 80 02/27/23 15:17 36.8 C 84 18 120/72 94 Room Air 02/27/23 12:25 Room Air 02/27/23 11:43 36.4 C L 84 18 104/62 92 Room Air 02/27/23 08:18 36.4 C L 103 H 18 144/85 H 93 Room Air 02/27/23 07:28 93 H 02/27/23 07:04 91 H 16 93 Nasal Cannula O2 Flow Rate 02/27/23 15:52 02/27/23 15:17 02/27/23 12:25 02/27/23 11:43 02/27/23 08:18 02/27/23 07:28 02/27/23 07:04 1 Laboratory Results 02/27/23 Range/Units 06:46 WBC 8.18 (4.8-10.8) K/ul RBC 3.53 L (4.20-5.40) M/uL Hgb 11.5 L (12.0-16.0) g/dl Hct 36.3 L (37.0-47.0) % MCV 102.8 H (80.0-100.0) fL MCH 32.6 (25.0-34.0) pg MCHC 31.7 L (32.0-36.0) g/dL RDW Std Deviation 57.7 H (36.4-46.3) fL RDW Coeff of Agnes 15.3 H (11.5-14.5) % Plt Count 390 (130-400) K/uL MPV 9.1 L (9.4-12.4) fL Sodium 145 (136-145) mmol/L Potassium 4.0 (3.5-5.1) mmol/L Chloride 111 H (98-107) mmol/L Carbon Dioxide 30 (21-32) mmol/L Anion Gap 4 (3-11) BUN 10 (6-23) mg/dl Creatinine 0.67 (0.6-1.2) mg/dl Est Cr Clr Drug Dosing 66.8 ml/min Est GFR ( Amer) 97.6 ml/min Est GFR (Non-Af Amer) 84.2 ml/min BUN/Creatinine Ratio 14.9 (10-20) Glucose 92 (70-99(Fasting)) mg/dl Calcium 8.0 L (8.6-10.3) mg/dl Phosphorus 3.2 (2.5-4.9) mg/dl Magnesium 1.7 (1.7-2.4) mg/dl Medications Administered Current Inpatient Medications Allopurinol (Allopurinol 300 Mg Tab) 300 mg PO QAM NANY Stop: 03/27/23 08:59 Last Admin: 02/27/23 08:38 Dose: 300 mg Allopurinol (Allopurinol 300 Mg Tab) 150 mg PO QPM NANY Stop: 03/26/23 20:59 Last Admin: 02/26/23 20:32 Dose: 150 mg Apixaban (Apixaban 5 Mg Tablet) 5 mg PO BID NANY Stop: 03/26/23 20:59 Last Admin: 02/27/23 08:38 Dose: 5 mg Aspirin (Aspirin 81 Mg Ectab) 81 mg PO HS NANY Stop: 03/26/23 20:59 Last Admin: 02/26/23 20:33 Dose: 81 mg Atenolol (Atenolol 25 Mg Tablet) 12.5 mg PO DAILY NANY Stop: 03/27/23 08:59 Last Admin: 02/27/23 08:38 Dose: 12.5 mg Cyanocobalamin (Cyanocobalamin (B-12) 500 Mcg Tablet) 1,000 mcg PO QAM NANY Stop: 03/28/23 16:24 Last Admin: 02/27/23 08:38 Dose: 1,000 mcg Dicyclomine HCl (Dicyclomine Hcl 20 Mg Tab) 20 mg PO TID PRN PRN Reason: IBS Stop: 03/26/23 16:18 Diltiazem HCl (Diltiazem Hcl 180 Mg Capcr) 360 mg PO QPM NANY Stop: 03/26/23 20:59 Last Admin: 02/26/23 20:32 Dose: 360 mg Famotidine (Famotidine 20 Mg Tab) 20 mg PO BID NANY Stop: 03/26/23 20:59 Last Admin: 02/27/23 08:38 Dose: 20 mg Fluticasone/Vilanterol (Fluticasone/Vilanterol 100/25mcg 14 Puffs/Inhaler) 1 puffs INH DAILY NANY Stop: 03/30/23 08:59 Levothyroxine Sodium (Levothyroxine Sodium 137 Mcg Tablet) 137 mcg PO DAILYBB NANY Stop: 03/27/23 06:29 Last Admin: 02/27/23 06:12 Dose: 137 mcg Montelukast Sodium (Montelukast Sodium 10 Mg Tablet) 10 mg PO HS NANY Stop: 03/28/23 20:59 Last Admin: 02/26/23 20:34 Dose: 10 mg Pantoprazole Sodium (Pantoprazole 40 Mg Tab) 40 mg PO DAILY NANY Stop: 03/27/23 08:59 Last Admin: 02/27/23 08:38 Dose: 40 mg Rosuvastatin Calcium (Rosuvastatin Calcium 5 Mg Tab) 5 mg PO DAILY NANY Stop: 03/27/23 08:59 Last Admin: 02/27/23 08:37 Dose: 5 mg Vitamin D (Cholecalciferol 1,000 Units 25 Mcg Tab) 2,000 units PO QAM NANY Stop: 03/27/23 08:59 Last Admin: 02/27/23 08:38 Dose: 2,000 units
[2023-02-27] MEDS: MONTELUKAST SODIUM 10 MG TABLET PO SCH (19:29)
[2023-02-27] MEDS: dilTIAZem HCL 180 MG CAPCR PO SCH (19:29)
[2023-02-27] MEDS: ASPIRIN 81 MG ECTAB PO SCH (19:30)
--- NOTE | 2023-02-27 20:05 | Communication Note ---
Date of Service: February 27, 2023 Requested by nurse construction supervisor/carpenter to enter COVID-19 test for patient after roommate tested positive for COVID-19. Patient currently asymptomatic.
[2023-02-28] MEDS: LEVOTHYROXINE SODIUM 137 MCG TABLET PO SCH (05:01)
[2023-02-28 05:04] LABS: Hematocrit (blood only) 38.9 % (37.0-47.0); Hemoglobin 12.5 g/dl (12.0-16.0); Mean Corpuscular Hemoglobin 32.6 pg (25.0-34.0); Mean Corpuscular Hgb Conc 32.1 g/dL (32.0-36.0); Mean Corpuscular Volume 101.3 fL (80.0-100.0); Mean Platelet Volume 9.1 fL (9.4-12.4); Nucleated RBC # (auto) 0.02 K/uL (0.00-0.12); Nucleated RBC % (auto) 0.2 %; Platelet Count 413 K/uL (130-400); RDW Coefficient of Variation 15.2 % (11.5-14.5); RDW Standard Deviation 56.2 fL (36.4-46.3); Red Blood Count 3.84 M/uL (4.20-5.40); White Blood Count 9.09 K/ul (4.8-10.8)
[2023-02-28 05:22] LABS: BUN Creatinine Ratio 17.8 (10-20); Calcium 7.9 mg/dl (8.6-10.3); Creatinine Clr Calc Pharmacy 61.3 ml/min; Est GFR (African American) 91.4 ml/min; Est GFR (Non-African American) 78.9 ml/min; Magnesium 1.6 mg/dl (1.7-2.4); Phosphorus 3.7 mg/dl (2.5-4.9); Potassium 3.6 mmol/L (3.5-5.1)
[2023-02-28] MEDS ORDERED: MAGNESIUM SULFATE / D5W 1 GM/100 ML BAG IV ONE (08:03)
--- NOTE | 2023-02-28 08:04 | Hospitalist Progress Note ---
Date of Service February 28, 2023 Assessment & Plan (1) Weakness: (2) History of pulmonary embolism: (3) Dyspnea on exertion: (4) CAD in [place] artery: (5) Ischemic cardiomyopathy: (6) Hypothyroidism: (7) Dyslipidemia: (8) GERD (gastroesophageal reflux disease): Plan This is a 77yo F with a PMHx significant for diverticulitis and gastroenteritis 2/2 astrovirus infection, Hx PE with associated heart strain and Hx of DVT, hiatal hernia, mild asthma, CAD, history of tachybradycardia syndrome, ischemic cardiomyopathy, HTN, HLD, CKD stage III, hypothyroidism, GERD, history of DVT/PE who presents with progressing generalized weakness and dyspnea on exertion. Dyspnea on Exertion Per ED provider, witnessed pt's O2 sat drop to the 80s with ambulation to the bathroom On 2L of oxygen, does not use oxygen at baseline Pt denies cough, congestion, chest pain Biofire negative Chest XRAY with atelectatic changes vs. aspiration/pneumonia CT chest obtained - no PE - + hiatal hernia, and atelectasis hs-troponin wnl, EKG with no acute changes BNP 41 Last echo in August 2022 noted an enlarged right ventricle with Harry's sign suggestive of PE at that time. Repeat echo obtained -LV systolic function is normal. EF 55 to 60%. RV is normal size. RV systolic function is qualitatively normal. Mild mitral regurg. Mild tricuspid regurg. Doppler findings do not suggest pulmonary hypertension. Continue oxygen supplementation as needed Incentive spirometer Pulmonary med. consulted for further recommendations - started bronchodilators for poss. asthma. Pt 's breathing seems to be improving. Currently she is on RA. Generalized Weakness Fatigue Uncertain etiology, acute in onset Pt saw her PCP for this about 2 weeks ago- noted she had just been weaned off of prednisone that she was on daily for 4 months (pt reports hx of gout) Symptoms possibly related to her dyspnea on exertion process PT/OT ordered Hx of bilateral pulmonary emboli Noted during last admission in August 2022 Currently on Eliquis 5mg BID, states has been taking it as prescribed H/o VTE in the past so likely needs lifelong anticoagulation GERD/Hiatal hernia Continue pantoprazole, famotidine Tachy-chintan syndrome/Ischemic cardiomyopathy s/p dual chamber pacemaker. Continue diltiazem CAD in redding artery Continue aspirin, statin Hypertension - at home on atenolol, diltiazem - pt feels often dizzy/lightheaded after she takes her AM meds, atenolol on hold now - she seems to feel improved -cont. to monitor. Hypothyroidism continue levothyroxine Gout continue home allopurinol HLD continue home statin Diet: HH DVT Ppx: Eliquis Code status: FULL Dispo:admitted to med/surg with tele Admission and Anticipated Discharge Date Admission Date: February 24, 2023 Subjective Pt seen in follow up of dyspnea on exertion Currently laying in bed in NAD no fever, chills, chest pain, abd. pain + acid reflux on and off Feels breathing is better however feels dizzy/ lightheaded - found orthostatic, also says she feels like this for a while - after she takes morning pills. Atenolol on hold for now, will cont. to closely monitor. gave gentle fluids. Pulmonary medicine consulted Review of Systems Review of Systems: All systems reviewed & are unremarkable except as noted in Subjective Physical Exam Physical Exam: General: WD/WN in no acute distress HEENT: NC/AT Chest: Nontender to palpation. CV: RRR Resp: no increased effort of breathing, + mild rhonchi, on RA Abdomen: Soft, nontender, nondistended. + bowel sounds Extremities: trace LE edema b/l Skin: No noted rashes or bruises Results & Data Results & Data Vital Signs (Past 12 Hours) Vital Signs Temp Pulse Pulse Resp BP BP Pulse Ox 02/28/23 08:01 36.8 C 93 H 16 134/79 90 02/28/23 07:31 82 02/28/23 03:35 36.8 C 89 18 129/71 90 02/27/23 23:32 99 H 02/27/23 22:33 36.9 C 96 H 18 129/77 91 02/27/23 20:47 O2 Del Method 02/28/23 08:01 Room Air 02/28/23 07:31 02/28/23 03:35 Room Air 02/27/23 23:32 02/27/23 22:33 Room Air 02/27/23 20:47 Room Air Laboratory Results 02/28/23 02/27/23 Range/Units 04:35 20:15 WBC 9.09 (4.8-10.8) K/ul RBC 3.84 L (4.20-5.40) M/uL Hgb 12.5 (12.0-16.0) g/dl Hct 38.9 (37.0-47.0) % MCV 101.3 H (80.0-100.0) fL MCH 32.6 (25.0-34.0) pg MCHC 32.1 (32.0-36.0) g/dL RDW Std Deviation 56.2 H (36.4-46.3) fL RDW Coeff of Agnes 15.2 H (11.5-14.5) % Plt Count 413 H (130-400) K/uL MPV 9.1 L (9.4-12.4) fL Absolute Nucleated RBC 0.02 (0.00-0.12) K/uL Nucleated RBC % (auto) 0.2 % Sodium 143 (136-145) mmol/L Potassium 3.6 (3.5-5.1) mmol/L Chloride 108 H (98-107) mmol/L Carbon Dioxide 28 (21-32) mmol/L Anion Gap 7 (3-11) BUN 13 (6-23) mg/dl Creatinine 0.73 (0.6-1.2) mg/dl Est Cr Clr Drug Dosing 61.3 ml/min Est GFR ( Amer) 91.4 ml/min Est GFR (Non-Af Amer) 78.9 ml/min BUN/Creatinine Ratio 17.8 (10-20) Glucose 93 (70-99(Fasting)) mg/dl Calcium 7.9 L (8.6-10.3) mg/dl Phosphorus 3.7 (2.5-4.9) mg/dl Magnesium 1.6 L (1.7-2.4) mg/dl SARS-CoV-2 (PCR) NEGATIVE (Negative) Medications Administered Current Inpatient Medications Allopurinol (Allopurinol 300 Mg Tab) 300 mg PO QAM NANY Stop: 03/27/23 08:59 Last Admin: 02/27/23 08:38 Dose: 300 mg Allopurinol (Allopurinol 300 Mg Tab) 150 mg PO QPM NANY Stop: 03/26/23 20:59 Last Admin: 02/27/23 19:31 Dose: 150 mg Apixaban (Apixaban 5 Mg Tablet) 5 mg PO BID NANY Stop: 03/26/23 20:59 Last Admin: 02/27/23 19:31 Dose: 5 mg Aspirin (Aspirin 81 Mg Ectab) 81 mg PO HS NANY Stop: 03/26/23 20:59 Last Admin: 02/27/23 19:30 Dose: 81 mg Atenolol (Atenolol 25 Mg Tablet) 12.5 mg PO DAILY NANY Stop: 03/27/23 08:59 Last Admin: 02/27/23 08:38 Dose: 12.5 mg Cyanocobalamin (Cyanocobalamin (B-12) 500 Mcg Tablet) 1,000 mcg PO QAM NANY Stop: 03/28/23 16:24 Last Admin: 02/27/23 08:38 Dose: 1,000 mcg Dicyclomine HCl (Dicyclomine Hcl 20 Mg Tab) 20 mg PO TID PRN PRN Reason: IBS Stop: 03/26/23 16:18 Diltiazem HCl (Diltiazem Hcl 180 Mg Capcr) 360 mg PO QPM NANY Stop: 03/26/23 20:59 Last Admin: 02/27/23 19:29 Dose: 360 mg Famotidine (Famotidine 20 Mg Tab) 20 mg PO BID NANY Stop: 03/26/23 20:59 Last Admin: 02/27/23 19:30 Dose: 20 mg Fluticasone/Vilanterol (Fluticasone/Vilanterol 100/25mcg 14 Puffs/Inhaler) 1 puffs INH DAILY NANY Stop: 03/30/23 08:59 Levothyroxine Sodium (Levothyroxine Sodium 137 Mcg Tablet) 137 mcg PO DAILYBB NANY Stop: 03/27/23 06:29 Last Admin: 02/28/23 05:01 Dose: 137 mcg Montelukast Sodium (Montelukast Sodium 10 Mg Tablet) 10 mg PO HS NANY Stop: 03/28/23 20:59 Last Admin: 02/27/23 19:29 Dose: 10 mg Pantoprazole Sodium (Pantoprazole 40 Mg Tab) 40 mg PO DAILY NANY Stop: 03/27/23 08:59 Last Admin: 02/27/23 08:38 Dose: 40 mg Rosuvastatin Calcium (Rosuvastatin Calcium 5 Mg Tab) 5 mg PO DAILY NANY Stop: 03/27/23 08:59 Last Admin: 02/27/23 08:37 Dose: 5 mg Vitamin D (Cholecalciferol 1,000 Units 25 Mcg Tab) 2,000 [facility] Stop: 03/27/23 08:59 Last Admin: 02/27/23 08:38 Dose: 2,000 units
[2023-02-28] MEDS: FLUTICASONE/VILANTEROL 100/25MCG 14 PUFFS/INHALER INH SCH (08:40)
[2023-02-28] MEDS: PANTOprazole 40 MG TAB PO SCH (08:41)
[2023-02-28] MEDS: APIXABAN 5 MG TABLET PO SCH ×2 (08:41→21:24)
[2023-02-28] MEDS: allopurinoL 300 MG TAB PO SCH ×2 (08:41→21:22)
[2023-02-28] MEDS: FAMOTIDINE 20 MG TAB PO SCH ×2 (08:41→21:23)
[2023-02-28] MEDS: CHOLECALCIFEROL 1,000 UNITS 25 MCG TAB PO SCH (08:41)
[2023-02-28] MEDS: CYANOCOBALAMIN (B-12) 500 MCG TABLET PO SCH (08:41)
[2023-02-28] MEDS: ROSUVASTATIN CALCIUM 5 MG TAB PO SCH (08:41)
[2023-02-28] MEDS: MAGNESIUM OXIDE 400 MG TAB PO SCH (09:32)
[2023-02-28] MEDS ORDERED: POTASSIUM CHLORIDE CRTAB 20 MEQ TABCR PO STA (11:30)
[2023-02-28] MEDS ORDERED: SODIUM CHLORIDE 0.65% NA SOLN 45 ML (OCEAN) PRN (16:40)
[2023-02-28] MEDS: MONTELUKAST SODIUM 10 MG TABLET PO SCH (21:23)
[2023-02-28] MEDS: ASPIRIN 81 MG ECTAB PO SCH (21:24)
[2023-02-28] MEDS: dilTIAZem HCL 180 MG CAPCR PO SCH (21:24)
[2023-03-01] MEDS: LEVOTHYROXINE SODIUM 137 MCG TABLET PO SCH (05:33)
[2023-03-01] MEDS: CHOLECALCIFEROL 1,000 UNITS 25 MCG TAB PO SCH (08:47)
[2023-03-01] MEDS: APIXABAN 5 MG TABLET PO SCH ×2 (08:47→20:46)
[2023-03-01] MEDS: FAMOTIDINE 20 MG TAB PO SCH ×2 (08:47→20:45)
[2023-03-01] MEDS: ROSUVASTATIN CALCIUM 5 MG TAB PO SCH (08:48)
[2023-03-01] MEDS: PANTOprazole 40 MG TAB PO SCH (08:48)
[2023-03-01] MEDS: CYANOCOBALAMIN (B-12) 500 MCG TABLET PO SCH (08:48)
[2023-03-01] MEDS: FLUTICASONE/VILANTEROL 100/25MCG 14 PUFFS/INHALER INH SCH (08:48)
[2023-03-01] MEDS: MAGNESIUM OXIDE 400 MG TAB PO SCH (08:48)
[2023-03-01] MEDS: allopurinoL 300 MG TAB PO SCH ×2 (08:48→20:47)
[2023-03-01] MEDS: SODIUM CHLORIDE 0.9% 1,000 ML IV SCH (11:35)
--- NOTE | 2023-03-01 16:39 | Hospitalist Progress Note ---
Date of Service March 01, 2023 Assessment & Plan (1) Weakness: (2) History of pulmonary embolism: (3) Dyspnea on exertion: (4) CAD in [place] artery: (5) Ischemic cardiomyopathy: (6) Hypothyroidism: (7) Dyslipidemia: (8) GERD (gastroesophageal reflux disease): Plan per Dr. 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 Dyspnea on Exertion Per ED provider, witnessed pt's O2 sat drop to the 80s with ambulation to the bathroom On 2L of oxygen, does not use oxygen at baseline Pt denies cough, congestion, chest pain Biofire negative Chest XRAY with atelectatic changes vs. aspiration/pneumonia CT chest obtained - no PE - + hiatal hernia, and atelectasis hs-troponin wnl, EKG with no acute changes BNP 41 Last echo in August 2022 noted an enlarged right ventricle with Harry's sign suggestive of PE at that time. Repeat echo obtained -LV systolic function is normal. EF 55 to 60%. RV is normal size. RV systolic function is qualitatively normal. Mild mitral regurg. Mild tricuspid regurg. Doppler findings do not suggest pulmonary hypertension. Continue oxygen supplementation as needed Incentive spirometer Pulmonary med. consulted for further recommendations - started bronchodilators for poss. asthma. Pt 's breathing seems to be improving. Currently she is on RA. 03/01 Stable Continue Breo Ellipta, Singulair Generalized Weakness Fatigue Uncertain etiology, acute in onset Pt saw her PCP for this about 2 weeks ago- noted she had just been weaned off of prednisone that she was on daily for 4 months (pt reports hx of gout) Symptoms possibly related to her dyspnea on exertion process PT/OT ordered Hx of bilateral pulmonary emboli Noted during last admission in August 2022 Currently on Eliquis 5mg BID, states has been taking it as prescribed H/o VTE in the past so likely needs lifelong anticoagulation GERD/Hiatal hernia Continue pantoprazole, famotidine Tachy-chintan syndrome/Ischemic cardiomyopathy s/p dual chamber pacemaker. Continue diltiazem CAD in [place] artery Continue aspirin, statin Hypertension - at home on atenolol, diltiazem - pt feels often dizzy/lightheaded after she takes her AM meds, atenolol on hold now - she seems to feel improved -cont. to monitor. 03/01 Still feeling lightheaded even with atenolol being on hold Positive orthostasis yesterday Started on IV fluids TSH normal We will check cortisol level in the morning Hypothyroidism continue levothyroxine Gout continue home allopurinol HLD continue home statin Diet: HH DVT Ppx: Eliquis Code status: FULL Dispo:admitted to med/surg with tele Admission and Anticipated Discharge Date Admission Date: February 24, 2023 Subjective Follow-up for shortness of breath, etc. Seen sitting up in bed, comfortable, not in distress States she feels a little bit lightheaded today Denies chest pain, shortness of breath, palpitations No cough, shortness of breath, fevers or chills No other new symptoms Review of Systems Review of Systems: all noted and negative except for above Physical Exam Physical Exam: General- oriented x 3, not in distress, speaks in sentences with no effort or accessory muscle use Eyes- anicteric Neck- no JVD Lungs- clear breath sounds bilaterally, no crackles/wheezing Heart- normal rate, regular rhythm; no murmurs Abdomen- normal bowel sounds, nondistended, soft, no tenderness Extremities- no pretibial edema, no calf tenderness Neuro- alert, oriented x 3; no gross focal neurologic deficits Skin- warm & dry Results & Data Results & Data Vital Signs (Past 12 Hours) Vital Signs Temp Pulse Pulse Resp BP Pulse Ox O2 Del Method 03/01/23 15:08 36.9 C 105 H 16 123/77 97 Room Air 03/01/23 12:33 36.7 C 103 H 16 122/74 90 Room Air 03/01/23 08:45 Room Air 03/01/23 08:10 36.7 C 100 H 16 126/74 91 Room Air 03/01/23 07:21 103 H all noted and reviewed including below
[2023-03-01] MEDS: MONTELUKAST SODIUM 10 MG TABLET PO SCH (20:45)
[2023-03-01] MEDS: ASPIRIN 81 MG ECTAB PO SCH (20:46)
[2023-03-01] MEDS: dilTIAZem HCL 180 MG CAPCR PO SCH (20:46)
[2023-03-02] MEDS: SODIUM CHLORIDE 0.9% 1,000 ML IV SCH ×2 (01:09→15:26)
[2023-03-02] MEDS ORDERED: Nursing to Pharmacy Communication SCH (01:15)
[2023-03-02] MEDS: LEVOTHYROXINE SODIUM 137 MCG TABLET PO SCH (06:25)
[2023-03-02 07:53] LABS: Basophils # (auto) 0.14 K/uL (0.00-0.20); Basophils % (auto) 1.4 %; Eosinophils # (auto) 0.33 K/uL (0.00-0.50); Eosinophils % (auto) 3.4 %; Hematocrit (blood only) 40.3 % (37.0-47.0); Hemoglobin 12.5 g/dl (12.0-16.0); Immature Granulocytes # (auto) 0.32 K/uL (0.01-0.20); Immature Granulocytes % (auto) 3.3 %; Lymphocytes # (auto) 2.44 K/uL (1.20-3.40); Lymphocytes % (auto) 25.1 %; Mean Corpuscular Volume 103.1 fL (80.0-100.0); Mean Platelet Volume 9.4 fL (9.4-12.4); Monocytes # (auto) 1.04 K/uL (0.11-0.59); Monocytes % (auto) 10.7 %; Neutrophils # (auto) 5.47 K/uL (1.40-6.50); Neutrophils % (auto) 56.1 %; Platelet Count 481 K/uL (130-400); RDW Coefficient of Variation 15.1 % (11.5-14.5); RDW Standard Deviation 57.4 fL (36.4-46.3); Red Blood Count 3.91 M/uL (4.20-5.40); White Blood Count 9.74 K/ul (4.8-10.8)
[2023-03-02] MEDS: APIXABAN 5 MG TABLET PO SCH ×2 (08:00→20:24)
[2023-03-02] MEDS: ROSUVASTATIN CALCIUM 5 MG TAB PO SCH (08:00)
[2023-03-02] MEDS: MAGNESIUM OXIDE 400 MG TAB PO SCH (08:00)
[2023-03-02] MEDS: FAMOTIDINE 20 MG TAB PO SCH ×2 (08:00→20:25)
[2023-03-02] MEDS: PANTOprazole 40 MG TAB PO SCH (08:00)
[2023-03-02] MEDS: allopurinoL 300 MG TAB PO SCH ×2 (08:01→20:23)
[2023-03-02] MEDS: FLUTICASONE/VILANTEROL 100/25MCG 14 PUFFS/INHALER INH SCH (08:01)
[2023-03-02] MEDS: CHOLECALCIFEROL 1,000 UNITS 25 MCG TAB PO SCH (08:01)
[2023-03-02] MEDS: CYANOCOBALAMIN (B-12) 500 MCG TABLET PO SCH (08:01)
[2023-03-02 08:04] LABS: Creatinine Clr Calc Pharmacy 56.3 ml/min; Est GFR (African American) 81.8 ml/min; Est GFR (Non-African American) 70.6 ml/min
--- NOTE | 2023-03-02 08:14 | Cardiology Consultation ---
Date of Consultation March 02, 2023 Assessment & Plan (1) Tachy-chintan syndrome: (2) Cardiac pacemaker in situ: (3) Palpitations: (4) Sinus tachycardia: (5) Orthostatic dizziness: Plan IMPRESSION: 78 year old female admitted for generalized fatigue, weakness, and shortness of breath. Echocardiogram with preserved LV systolic function no wall motion abnormalities or significant valvular disease. Symptomatic improvement in breathing with bronchodilators per the recommenda tions of pulmonary. Due to fatigue atenolol was held which has significantly improved her symptoms however now she has concerns regarding a racing heartbeat. PLAN: TBS/Palpitations: Patient with symptomatic palpitations/tachycardia. Patient with perm pacemaker. BP have been controlled Patient has been intolerant to metoprolol and now she believes she is intolerant to atenolol. -Continue diltiazem 360 mg daily -Patient is already on the max dose of diltiazem. She is unwilling to trial any other beta-blockers. -increase oral fluids Case discussed with Dr. Rivera further recommendations pending his assessment. Supervising Physician Co-Signing Physician Notes Patient was seen and examined, chart, medications, telemetry reviewed. Prior outpatient records also reviewed Patient with longstanding history of ventricular ectopy, coronary artery disease, tachybradycardia syndrome with predominant difficulties with elevated heart rate and poor tolerance of medical therapies. Admitted now with weakness fatigue and dyspnea. Longstanding difficulties with palpitations Heart rates elevated in hospital notes severe fatigue with prior beta-blockers of multiple choices No overt findings to suggest driving forces i.e. no pain, hypoxia, anemia Recommendations: Discontinue Singulair, Bentyl which may drive heart rate higher due to anticholinergic effects Discontinue diltiazem Begin verapamil SR 360 mg this evening. Good choice for heart rate as well as antianginal effect. May opt to continue low-dose atenolol but will hold for time being. Discussed alternate beta-blockers as well as Corlanor History of Present Illness Reason for Consultation: Palpitations/lightheadedness Requesting Physician: Jone hospitalist Attending Physician: Babak Curiel MD History of Present Illness 78-year-old female presented to [facility] emergency department due to generalized weakness, fatigue, and dyspnea with exertion. CT of the chest did not show any clear infiltrates or pulmonary emboli Bio fire was negative. BNP normal at 42. Thyroid normal. Echocardiogram (02/24/2023) showed a normal LVEF of 55 to 60% with grade 1 diastolic dysfunction, mild MR and TR. RV normal in size and function Pulmonary was consulted and treated with inhaled bronchodilators with significant improvement in symptoms. 03/01/2023 Patient with symptoms of lightheadedness after am meds and with position changes. Orthostatics were positive per chart review. Started IV fluids. Atenolol was held. Patient was continued on diltiazem. Cardiology consulted for lightheadedness and palpitations. 03/02/2023: Upon entrance into the room patient resting in the chair. Notes that her breathing is significantly improved with the use of bronchodilators. Atenolol has been on hold and she is also mentioned improvement in her overall energy level however now that she is not on a beta-johnna she feels a racing heartbeat which makes her slightly more short of breath when doing things. She denies chest pain. No lightheadedness. No orthopnea or PND. Lower extremity edema at baseline. Tele: SR/ST 90-100s, occasional ST into the 130s. AV paced over night. EKG: ST 104 Primary outpatient salad bar clerk: Dr. Ortega Past medical history: CAD, history of NSTEMI status post AMIE to LAD (culprit) and RCA, 04/28/2018 History of postmyocardial infarct pericarditis refractory to NSAIDs and intolerant to colchicine, resolved Nonischemic nuclear stress test 01/2021, done for atypical chest discomfort Tachybrady syndrome with evidence of sinus tachycardia and second-degree AV block, pacemaker implanted 08/19/2019 Frequent PVCs Hypothyroidism Dyslipidemia with elevated triglycerides History of pulmonary embolism/DVT associated with right heart strain, 08/2022--on Eliquis Allergies Allergy/AdvReac Type Severity Reaction Status Date / Time imipenem Allergy Severe ANAPHYLAXIS Verified 11/16/22 20:55 Sulfa (Sulfonamide Allergy Severe hives,sob, Verified 11/16/22 20:55 Antibiotics) can take Dyazide daptomycin AdvReac Severe Anaphylaxis Unverified 11/16/22 20:55 colchicine AdvReac Intermediate diarrhea Verified 11/16/22 20:55 metoprolol AdvReac Mild fatigue Verified 11/16/22 20:55 zoledronic acid AdvReac Mild NAUSEA AND Verified 11/16/22 20:55 VOMITING Home Medications Medication Instructions Recorded Confirmed Type cholecalciferol (vitamin D3) 50 2,000 unit PO QAM 04/28/18 02/24/23 History mcg (2,000 unit) tablet (Vitamin D3) fexofenadine 180 mg tablet 180 mg PO DAILY 04/28/18 02/24/23 History (Elke Allergy) nitroglycerin 0.4 mg sublingual 0.4 mg sublingual Q5M chest pain 05/01/18 02/24/23 Rx tablet (Nitrostat) #25 tabs aspirin 81 mg tablet,delayed 81 mg PO HS #0 tabs 05/16/18 02/24/23 Rx release fluticasone propionate 50 2 spray intranasal QAM PRN Nasal 06/03/18 02/24/23 History mcg/actuation nasal Congestion spray,suspension (Flonase Allergy Relief) dicyclomine 20 mg tablet 20 mg PO TID PRN IBS 02/12/19 02/24/23 History allopurinol 300 mg tablet 300 mg PO QAM 01/23/21 02/24/23 History coenzyme Q10 100 mg capsule 100 mg PO DAILY 01/23/21 02/24/23 History (CoQ-10) diltiazem HCl 360 mg 360 mg PO QPM 01/23/21 02/24/23 History tablet,extended release 24 hr levothyroxine 137 mcg tablet 137 mcg PO DAILYBB 01/23/21 02/24/23 History rosuvastatin 5 mg tablet 5 mg PO DAILY 01/23/21 02/24/23 History allopurinol 300 mg tablet 150 mg PO QPM 08/18/22 02/24/23 History atenolol 25 mg tablet 12.5 mg PO DAILY 08/18/22 02/24/23 History famotidine 20 mg tablet 20 mg PO BID 08/18/22 02/24/23 History loperamide 2 mg tablet 2 mg PO QID PRN Diarrhea 08/18/22 02/24/23 History apixaban 5 mg tablet (Eliquis) 5 mg PO BID #60 tabs 09/06/22 02/24/23 Rx Probiotic For Women 1 tab PO DAILY 11/16/22 02/24/23 History pantoprazole 40 mg tablet,delayed 40 mg PO DAILY 02/24/23 02/24/23 History release fluticasone propionate 115 2 puff inhalation BID #12 grams 02/28/23 Rx mcg-salmeterol 21 mcg/actuation HFA inhaler (Advair HFA) montelukast 10 mg tablet 10 mg PO HS #30 tabs 02/28/23 Rx Patient History Medical History (Updated 03/02/23 @ 10:18 by LEYDA Farrell) CAD (coronary artery disease) Osteoporosis 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 Retinal vein occlusion of right eye History of non-ST elevation myocardial infarction (NSTEMI) Vitamin B12 deficiency Ischemic cardiomyopathy Non-ST elevated myocardial infarction (non-STEMI) Rupture of left posterior tibialis tendon GERD (gastroesophageal reflux disease) History of pulmonary embolism History of DVT (deep vein thrombosis) Dyslipidemia Hypothyroidism Hypertension (Unknown) BP better today continue higher dose of metoprolol Surgical History Status post biventricular pacemaker History of cardiac cath S/P BSO (status post bilateral salpingo-oophorectomy) S/P IVC filter Status post right knee replacement Status post hysterectomy Family History Father Coronary heart disease Heart disease Mother Stroke Allergies Grandmother Asthma Grandfather Asthma Other Hypertension No family history of adverse response to anesthesia No family history of bleeding disorder Social History Smoking Status: Never smoker Second Hand Exposure: No; Do You Dip or Chew Tobacco: No; Hx Alcohol Use: No Hx Substance Use: No Preferred Language: [place] Communication Ability: Effective 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 [place] Sinking Required: No Beliefs That Will Affect Care: None marital status: Current Living Situation: Family Current Living Situation Comment: Lives with daughter current occupational status: employed How many Children do You have: 1 Feels Safe at Home: Yes Assistive Devices: Cane and Walker Review of Systems Review of Systems: All systems reviewed & are unremarkable except as noted in HPI & below Physical Exam Constitutional: no acute distress Neck: normal visual inspection and trachea midline Respiratory: normal respiratory effort, lungs clear to auscultation Cardiovascular: Rate/Rhythm: regular rate and regular rhythm Heart Sounds: normal S1 and normal S2; no murmur Vessels: no JVD Extremities: + edema (Trace bilateral nonpitting lower extremity edema) Chest (Breasts): Chest: + pacemaker Gastrointestinal (Abdomen): normal bowel sounds, soft, nontender, no hepatosplenomegaly Skin: no rashes, warm and dry Psychiatric: Orientation: alert and oriented x 3 Results & Data Vital Signs (Past 12 Hours) Vital Signs Temp Pulse Pulse Resp BP Pulse Ox O2 Del Method 03/02/23 07:33 36.4 C L 105 H 20 130/76 93 Room Air 03/02/23 07:29 97 H 03/02/23 03:21 36.6 C 110 H 16 129/75 91 Room Air 03/02/23 01:53 Room Air 03/01/23 22:58 106 H 03/01/23 22:34 36.6 C 109 H 18 113/73 90 Room Air Laboratory Results CBC 03/02/23 Range/Units 07:05 WBC 9.74 (4.8-10.8) K/ul RBC 3.91 L (4.20-5.40) M/uL Hgb 12.5 (12.0-16.0) g/dl Hct 40.3 (37.0-47.0) % Plt Count 481 H (130-400) K/uL Neut # (Auto) 5.47 (1.40-6.50) K/uL Lymph # (Auto) 2.44 (1.20-3.40) K/uL [place] # (Auto) 1.04 H (0.11-0.59) K/uL Eos # (Auto) 0.33 (0.00-0.50) K/uL Baso # (Auto) 0.14 (0.00-0.20) K/uL Comprehensive Metabolic Panel 03/02/23 Range/Units 07:04 Sodium 145 (136-145) mmol/L Potassium 4.0 (3.5-5.1) mmol/L Chloride 112 H (98-107) mmol/L Carbon Dioxide 27 (21-32) mmol/L BUN 16 (6-23) mg/dl Creatinine 0.80 (0.6-1.2) mg/dl Glucose 112 H (70-99(Fasting)) mg/dl Calcium 8.0 L (8.6-10.3) mg/dl Intake and Output 12/01/23 12/02/23 12/02/23 22:59 06:59 14:59 Intake Total 200 / 1320 1120 / 1320 Balance 200 / 1320 1120 / 1320 Intake: IV 1000 / 1000 Sodium Chloride 0.9% 1,000 ml @ 1000 / 1000 75 mls/hr IV .[id number] [facility] Rx#: [id number] Oral 200 / 320 120 / 320
[2023-03-02 08:26] LABS: Magnesium 1.7 mg/dl (1.7-2.4)
--- NOTE | 2023-03-02 12:04 | Electrocardiogram Report ---
Test Reason : Blood Pressure : / mmHG Vent. Rate : 104 BPM Atrial Rate : 104 BPM P-R Int : 168 ms QRS Dur : 086 ms QT Int : 362 ms P-R-T Axes : 043 015 041 degrees QTc Int : 476 ms Sinus tachycardia Possible Left atrial enlargement Nonspecific T wave abnormality Abnormal ECG When compared with ECG of 24-FEB-2023 09:29, Minimal criteria for Inferior infarct are no longer Present Confirmed by Ford Ruiz ([id number]) on 03/02/2023 12:03:24 PM Referred By: REFERRED SELF Confirmed By:Ford Ruiz
--- NOTE | 2023-03-02 18:56 | Hospitalist Progress Note ---
Date of Service March 02, 2023 delayed entry date of service noted above Assessment & Plan (1) Weakness: (2) History of pulmonary embolism: (3) Dyspnea on exertion: (4) CAD in [place] artery: (5) Ischemic cardiomyopathy: (6) Hypothyroidism: (7) Dyslipidemia: (8) GERD (gastroesophageal reflux disease): Plan per Dr. 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 Dyspnea on Exertion Per ED provider, witnessed pt's O2 sat drop to the 80s with ambulation to the bathroom On 2L of oxygen, does not use oxygen at baseline Pt denies cough, congestion, chest pain Biofire negative Chest XRAY with atelectatic changes vs. aspiration/pneumonia CT chest obtained - no PE - + hiatal hernia, and atelectasis hs-troponin wnl, EKG with no acute changes BNP 41 Last echo in August 2022 noted an enlarged right ventricle with Harry's sign suggestive of PE at that time. Repeat echo obtained -LV systolic function is normal. EF 55 to 60%. RV is normal size. RV systolic function is qualitatively normal. Mild mitral regurg. Mild tricuspid regurg. Doppler findings do not suggest pulmonary hypertension. Continue oxygen supplementation as needed Incentive spirometer Pulmonary med. consulted for further recommendations - started bronchodilators for poss. asthma. Pt 's breathing seems to be improving. Currently she is on RA. 03/02 Stable Continue Breo Ellipta, Singulair Generalized Weakness Fatigue Uncertain etiology, acute in onset Pt saw her PCP for this about 2 weeks ago- noted she had just been weaned off of prednisone that she was on daily for 4 months (pt reports hx of gout) Symptoms possibly related to her dyspnea on exertion process PT/OT ordered Hx of bilateral pulmonary emboli Noted during last admission in August 2022 Currently on Eliquis 5mg BID, states has been taking it as prescribed H/o VTE in the past so likely needs lifelong anticoagulation GERD/Hiatal hernia Continue pantoprazole, famotidine Tachy-chintan syndrome/Ischemic cardiomyopathy s/p dual chamber pacemaker. Continue diltiazem CAD in [place] artery Continue aspirin, statin Hypertension - at home on atenolol, diltiazem - pt feels often dizzy/lightheaded after she takes her AM meds, atenolol on hold now - she seems to feel improved -cont. to monitor. 03/01 Still feeling lightheaded even with atenolol being on hold Positive orthostasis yesterday Started on IV fluids TSH normal We will check cortisol level in the morning 03/02 will consult Cardiology Hypothyroidism continue levothyroxine Gout continue home allopurinol HLD continue home statin Diet: HH DVT Ppx: Eliquis Code status: FULL Dispo:admitted to med/surg with tele Admission and Anticipated Discharge Date Admission Date: February 24, 2023 Subjective ff up for covid 19 infection, etc seen resting in bed, comfortable no dizziness still having symptoms no other symptoms Review of Systems Review of Systems: all noted and negative except for above Physical Exam Physical Exam: General- oriented x 2, not in distress, speaks in sentences with no effort or accessory muscle use Eyes- anicteric Neck- no JVD Lungs- clear breath sounds bilaterally, no rales/wheezes Heart- normal rate, regular rhythm; no murmurs Abdomen- normal bowel sounds, nondistended, soft, nontender Extremities- no pretibial edema, no calf tenderness Neuro- alert, oriented x 2; no gross focal neurologic deficits Skin- warm & dry Results & Data Results & Data Vital Signs (Past 12 Hours) Vital Signs Temp Pulse Pulse Resp BP Pulse Ox O2 Del Method 03/02/23 17:08 116 H 03/02/23 15:12 36.5 C 108 H 18 124/74 95 Room Air 03/02/23 11:55 36.5 C 105 H 18 114/78 94 Room Air 03/02/23 07:33 36.4 C L 105 H 20 130/76 93 Room Air 03/02/23 07:29 97 H
[2023-03-02] MEDS: VERAPAMIL HCL 180 MG TABCR PO SCH (20:22)
[2023-03-02] MEDS: ASPIRIN 81 MG ECTAB PO SCH (20:24)
[2023-03-03] MEDS ORDERED: SODIUM CHLORIDE 0.45 % 1,000 ML IV ONE (05:21)
[2023-03-03] MEDS: LEVOTHYROXINE SODIUM 137 MCG TABLET PO SCH (06:13)
[2023-03-03] MEDS: SODIUM CHLORIDE 0.9% 1,000 ML IV SCH (06:16)
[2023-03-03] MEDS: FAMOTIDINE 20 MG TAB PO SCH ×2 (08:35→20:04)
[2023-03-03] MEDS: allopurinoL 300 MG TAB PO SCH ×2 (08:35→20:05)
[2023-03-03] MEDS: FLUTICASONE/VILANTEROL 100/25MCG 14 PUFFS/INHALER INH SCH (08:35)
[2023-03-03] MEDS: PANTOprazole 40 MG TAB PO SCH (08:36)
[2023-03-03] MEDS: CHOLECALCIFEROL 1,000 UNITS 25 MCG TAB PO SCH (08:36)
[2023-03-03] MEDS: MAGNESIUM OXIDE 400 MG TAB PO SCH (08:36)
[2023-03-03] MEDS: CYANOCOBALAMIN (B-12) 500 MCG TABLET PO SCH (08:36)
[2023-03-03] MEDS: APIXABAN 5 MG TABLET PO SCH ×2 (08:36→20:05)
[2023-03-03] MEDS: ROSUVASTATIN CALCIUM 5 MG TAB PO SCH (08:36)
--- NOTE | 2023-03-03 13:13 | Cardiology Progress Note ---
Date of Service March 03, 2023 Assessment & Plan (1) Tachy-chintan syndrome: (2) Cardiac pacemaker in situ: (3) Palpitations: (4) Sinus tachycardia: (5) Orthostatic dizziness: Plan IMPRESSION: 78 year old female admitted for generalized fatigue, weakness, and shortness of breath. Echocardiogram with preserved LV systolic function no wall motion abnormalities or significant valvular disease. Symptomatic improvement in breathing with bronchodilators per the recommendations of pulmonary. Due to fatigue atenolol was held which has significantly improved her symptoms however now she has concerns regarding a racing heartbeat. PLAN: TBS/Palpitations: Patient with symptomatic palpitations/tachycardia. Patient with perm pacemaker. BP have been controlled Patient has been intolerant to metoprolol and now she believes she is intolerant to atenolol. -Continue diltiazem 360 mg daily -Patient is already on the max dose of diltiazem. She is unwilling to trial any other beta-blockers. -increase oral fluids 03/03/2023 Patient responding appropriately to switch from diltiazem to verapamil. We will continue to hold atenolol Add spironolactone 12.5 mg today and possibly 1 to 3 days/week for additional edema and diastolic Overall clinically improved Admission and Anticipated Discharge Date Admission Date: February 24, 2023 Subjective Patient was seen and examined, chart, medications, telemetry reviewed Feels improved with heart rate trending towards better control No chest pains or discomfort Mild edema Physical Exam Constitutional: no acute distress Neck: normal visual inspection and trachea midline Respiratory: normal respiratory effort, lungs clear to auscultation Cardiovascular: Rate/Rhythm: regular rate and regular rhythm Heart Sounds: normal S1 and normal S2; no murmur Vessels: no JVD Extremities: + edema (Trace bilateral nonpitting lower extremity edema) Chest (Breasts): Chest: + pacemaker Gastrointestinal (Abdomen): normal bowel sounds, soft, nontender, no hepatosplenomegaly Skin: no rashes, warm and dry Psychiatric: Orientation: alert and oriented x 3 Results & Data Vital Signs (Past 12 Hours) Vital Signs Temp Pulse Pulse Resp BP Pulse Ox O2 Del Method 03/03/23 11:40 36.5 C 84 20 137/89 95 Room Air 03/03/23 07:49 36.7 C 90 20 128/75 91 Room Air 03/03/23 07:30 Room Air 03/03/23 07:24 82 03/03/23 03:28 36.6 C 98 H 16 132/79 90 Room Air 03/03/23 01:40 Room Air
[2023-03-03] MEDS ORDERED: SPIRONOLACTONE 12.5 MG TAB PO ONE (13:16)
--- NOTE | 2023-03-03 14:00 | Hospitalist Progress Note ---
Date of Service March 03, 2023 Assessment & Plan (1) Weakness: (2) History of pulmonary embolism: (3) Dyspnea on exertion: (4) CAD in [place] artery: (5) Ischemic cardiomyopathy: (6) Hypothyroidism: (7) Dyslipidemia: (8) GERD (gastroesophageal reflux disease): Plan per Dr. 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 Dyspnea on Exertion Per ED provider, witnessed pt's O2 sat drop to the 80s with ambulation to the bathroom On 2L of oxygen, does not use oxygen at baseline Pt denies cough, congestion, chest pain Biofire negative Chest XRAY with atelectatic changes vs. aspiration/pneumonia CT chest obtained - no PE - + hiatal hernia, and atelectasis hs-troponin wnl, EKG with no acute changes BNP 41 Last echo in August 2022 noted an enlarged right ventricle with Harry's sign suggestive of PE at that time. Repeat echo obtained -LV systolic function is normal. EF 55 to 60%. RV is normal size. RV systolic function is qualitatively normal. Mild mitral regurg. Mild tricuspid regurg. Doppler findings do not suggest pulmonary hypertension. Continue oxygen supplementation as needed Incentive spirometer Pulmonary med. consulted for further recommendations - started bronchodilators for poss. asthma. Pt 's breathing seems to be improving. Currently she is on RA. 03/03 Stable Continue Breo Ellipta, Singulair Generalized Weakness Fatigue Uncertain etiology, acute in onset Pt saw her PCP for this about 2 weeks ago- noted she had just been weaned off of prednisone that she was on daily for 4 months (pt reports hx of gout) Symptoms possibly related to her dyspnea on exertion process PT/OT ordered Hx of bilateral pulmonary emboli Noted during last admission in August 2022 Currently on Eliquis 5mg BID, states has been taking it as prescribed H/o VTE in the past so likely needs lifelong anticoagulation GERD/Hiatal hernia Continue pantoprazole, famotidine Tachy-chintan syndrome/Ischemic cardiomyopathy s/p dual chamber pacemaker. Continue diltiazem CAD in [place] artery Continue aspirin, statin Hypertension - at home on atenolol, diltiazem - pt feels often dizzy/lightheaded after she takes her AM meds, atenolol on hold now - she seems to feel improved -cont. to monitor. 03/01 Still feeling lightheaded even with atenolol being on hold Positive orthostasis yesterday Started on IV fluids TSH normal 03/03 Atenolol discontinued, transitioned to Verapamil no lightheadedness HR < 100 Aldactone added monitor Hypothyroidism continue levothyroxine Gout continue home allopurinol HLD continue home statin Diet: HH DVT Ppx: Eliquis Code status: FULL Dispo: pending PT/OT eval Admission and Anticipated Discharge Date Admission Date: February 24, 2023 Subjective ff up for dizziness, etc seen resting in chair, comfortable states she feels improved today no dizziness has mild sensation/awareness that her heart rate is faster than normal no other symptoms Review of Systems Review of Systems: all noted and negative except for above Physical Exam Physical Exam: General- oriented x 3, not in distress, speaks in sentences with no effort or accessory muscle use Eyes- anicteric Neck- no JVD Lungs- clear BS BL Heart- normal rate, regular rhythm; no murmurs Abdomen- normal bowel sounds, nondistended, soft, nontender Extremities- trace pretibial edema, no calf tenderness Neuro- alert, oriented x 3; no gross focal neurologic deficits Skin- warm & dry Results & Data Results & Data Vital Signs (Past 12 Hours) Vital Signs Temp Pulse Pulse Resp BP Pulse Ox O2 Del Method 03/03/23 11:40 36.5 C 84 20 137/89 95 Room Air 03/03/23 07:49 36.7 C 90 20 128/75 91 Room Air 03/03/23 07:30 Room Air 03/03/23 07:24 82 03/03/23 03:28 36.6 C 98 H 16 132/79 90 Room Air all noted and reviewed including below
[2023-03-03] MEDS: ASPIRIN 81 MG ECTAB PO SCH (20:04)
[2023-03-03] MEDS: VERAPAMIL HCL 180 MG TABCR PO SCH (20:05)
[2023-03-04] MEDS: LEVOTHYROXINE SODIUM 137 MCG TABLET PO SCH (06:32)
[2023-03-04] MEDS: allopurinoL 300 MG TAB PO SCH ×2 (09:30→19:34)
[2023-03-04] MEDS: MAGNESIUM OXIDE 400 MG TAB PO SCH (09:30)
[2023-03-04] MEDS: PANTOprazole 40 MG TAB PO SCH (09:30)
[2023-03-04] MEDS: CYANOCOBALAMIN (B-12) 500 MCG TABLET PO SCH (09:30)
[2023-03-04] MEDS: FAMOTIDINE 20 MG TAB PO SCH ×2 (09:30→19:34)
[2023-03-04] MEDS: APIXABAN 5 MG TABLET PO SCH ×2 (09:30→19:34)
[2023-03-04] MEDS: ROSUVASTATIN CALCIUM 5 MG TAB PO SCH (09:31)
[2023-03-04] MEDS: FLUTICASONE/VILANTEROL 100/25MCG 14 PUFFS/INHALER INH SCH (09:31)
[2023-03-04] MEDS: CHOLECALCIFEROL 1,000 UNITS 25 MCG TAB PO SCH (09:31)
--- NOTE | 2023-03-04 11:05 | Post Anesthesia Assessment ---
Date of Service March 04, 2023 Post Sedation Assessment Vital Signs Temp Pulse Pulse Resp BP BP Pulse Ox 03/04/23 07:53 36.6 C 100 H 16 143/81 H 92 03/04/23 07:45 108 H 03/04/23 03:25 36.7 C 97 H 16 124/74 91 03/03/23 23:17 03/03/23 22:20 36.8 C 118 H 18 126/78 92 03/03/23 22:02 116 H 03/03/23 19:07 36.7 C 109 H 18 123/71 93 03/03/23 15:38 36.9 C 105 H 20 129/77 93 03/03/23 15:04 100 H 03/03/23 11:40 36.5 C 84 20 137/89 95 O2 Del Method 03/04/23 07:53 Room Air 03/04/23 07:45 03/04/23 03:25 Room Air 03/03/23 23:17 Room Air 03/03/23 22:20 Room Air 03/03/23 22:02 03/03/23 19:07 Room Air 03/03/23 15:38 Room Air 03/03/23 15:04 03/03/23 11:40 Room Air Recovery Score Activity: Moves 4 extremities Respiration: Deep Breath/Cough Circulation: +/-20% PreAnes Value Consciousness: Fully Awake Discharge Sedation Level of Care: Phase I Post Sedation Plan On clinical assessment, the patient appears to have tolerated the sedation without complications. Patient is recovering as anticipated. Patient will continue to be monitored by nursing and may be discharged when sedation discharge criteria are met per below protocol. Upon Completions of procedure up to 15 minutes continue every 5 minute vital signs and the P.A.R. score; then discharge to a Phase I or Fast Track to Phase II per the following guidelines: * Discharge Patient to appropriate Phase II area if PAR is 8 or greater or return to pre- procedure baseline. The post - procedure orders will be as directed. * If PAR score is less than 8 or not return to pre-procedure baseline then patient will follow Phase I monitoring till PAR is reached for Phase II. The Phase I may be done in procedure room or may call to secure a Phase I area. * If naloxone or flumazenil are used for reversal, hold in Phase I for continued monitoring from when last reversal dose was given for a minimum of 60 minutes or longer pending the nurse and/or physician discretion of patient condition before discharge to Phase II. Please call the Sedation Physician to re-evaluate and complete post-note for discharge to Phase II area. Do NOT discharge from procedure sedation or Phase 1 until post- sedation evaluation note is complete by procedure /sedation MD Sedation Discharge Instructions to be given to the patient at discharge to home.
[2023-03-04] MEDS: VERAPAMIL HCL 240 MG TABCR PO SCH ×2 (11:56→19:35)
--- NOTE | 2023-03-04 12:26 | Cardiology Progress Note ---
Date of Service March 04, 2023 Assessment & Plan (1) Tachy-chintan syndrome: (2) Cardiac pacemaker in situ: (3) Palpitations: (4) Sinus tachycardia: (5) Orthostatic dizziness: Plan IMPRESSION: 78 year old female admitted for generalized fatigue, weakness, and shortness of breath. Echocardiogram with preserved LV systolic function no wall motion abnormalities or significant valvular disease. Symptomatic improvement in breathing with bronchodilators per the recommendations of pulmonary. Due to fatigue atenolol was held which has significantly improved her symptoms however now she has concerns regarding a racing heartbeat. PLAN: TBS/Palpitations: Patient with symptomatic palpitations/tachycardia. Patient with perm pacemaker. BP have been controlled Patient has been intolerant to metoprolol and now she believes she is intolerant to atenolol. -Continue diltiazem 360 mg daily -Patient is already on the max dose of diltiazem. She is unwilling to trial any other beta-blockers. -increase oral fluids 03/03/2023 Patient responding appropriately to switch from diltiazem to verapamil. We will continue to hold atenolol Add spironolactone 12.5 mg today and possibly 1 to 3 days/week for additional edema and diastolic Overall clinically improved 03/04/2023 Heart rate improving but still elevated at times. Will increase verapamil SR to 240 mg twice per day. Discontinue at 10 Will likely discharge on spironolactone 12.5 mg 3 days/week Will need BMP and uric acid with next lab draw given history of gout Admission and Anticipated Discharge Date Admission Date: February 24, 2023 Subjective Patient seen and examined, chart, medications, telemetry reviewed Notes including complaints of weakness but no other acute issues. Heart rate trending towards better control Does not wish to restart beta-johnna Did urinate more frequently last night with single dose of spironolactone Review of Systems Review of Systems: All systems reviewed & are unremarkable except as noted in Subjective Physical Exam Constitutional: WD/WN, vitals as above no acute distress ENMT: external ear and nose normal, oropharynx normal Neck: normal visual inspection and trachea midline Respiratory: normal respiratory effort, lungs clear to auscultation Cardiovascular: Rate/Rhythm: regular rate and regular rhythm Heart Sounds: normal S1 and normal S2; no murmur Vessels: no JVD Extremities: + edema (Trace bilateral nonpitting lower extremity edema) Chest (Breasts): Chest: + pacemaker Gastrointestinal (Abdomen): normal bowel sounds, soft, nontender, no hepatosplenomegaly Skin: no rashes, warm and dry Psychiatric: Orientation: alert and oriented x 3 Results & Data Vital Signs (Past 12 Hours) Vital Signs Temp Pulse Pulse Resp BP Pulse Ox O2 Del Method 03/04/23 11:47 36.8 C 104 H 20 130/83 94 Room Air 03/04/23 07:53 36.6 C 100 H 16 143/81 H 92 Room Air 03/04/23 07:45 108 H 03/04/23 03:25 36.7 C 97 H 16 124/74 91 Room Air Laboratory Results Laboratory Results - last 24 hr 03/04/23 Unknown SARS-CoV-2 (PCR) NEGATIVE
[2023-03-04] MEDS: ASPIRIN 81 MG ECTAB PO SCH (19:34)
--- NOTE | 2023-03-04 20:34 | Hospitalist Progress Note ---
Date of Service March 04, 2023 Assessment & Plan (1) Weakness: (2) History of pulmonary embolism: (3) Dyspnea on exertion: (4) CAD in [place] artery: (5) Ischemic cardiomyopathy: (6) Hypothyroidism: (7) Dyslipidemia: (8) GERD (gastroesophageal reflux disease): Plan per Dr. 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 Dyspnea on Exertion Per ED provider, witnessed pt's O2 sat drop to the 80s with ambulation to the bathroom On 2L of oxygen, does not use oxygen at baseline Pt denies cough, congestion, chest pain Biofire negative Chest XRAY with atelectatic changes vs. aspiration/pneumonia CT chest obtained - no PE - + hiatal hernia, and atelectasis hs-troponin wnl, EKG with no acute changes BNP 41 Last echo in August 2022 noted an enlarged right ventricle with Harry's sign suggestive of PE at that time. Repeat echo obtained -LV systolic function is normal. EF 55 to 60%. RV is normal size. RV systolic function is qualitatively normal. Mild mitral regurg. Mild tricuspid regurg. Doppler findings do not suggest pulmonary hypertension. Continue oxygen supplementation as needed Incentive spirometer Pulmonary med. consulted for further recommendations - started bronchodilators for poss. asthma. Pt 's breathing seems to be improving. Currently she is on RA. 03/04 Stable Continue Breo Ellipta, Singulair Generalized Weakness Fatigue Uncertain etiology, acute in onset Pt saw her PCP for this about 2 weeks ago- noted she had just been weaned off of prednisone that she was on daily for 4 months (pt reports hx of gout) Symptoms possibly related to her dyspnea on exertion process PT/OT ordered Hx of bilateral pulmonary emboli Noted during last admission in August 2022 Currently on Eliquis 5mg BID, states has been taking it as prescribed H/o VTE in the past so likely needs lifelong anticoagulation GERD/Hiatal hernia Continue pantoprazole, famotidine Tachy-chintan syndrome/Ischemic cardiomyopathy s/p dual chamber pacemaker. Continue diltiazem CAD in [place] artery Continue aspirin, statin Hypertension - at home on atenolol, diltiazem - pt feels often dizzy/lightheaded after she takes her AM meds, atenolol on hold now - she seems to feel improved -cont. to monitor. 03/01 Still feeling lightheaded even with atenolol being on hold Positive orthostasis yesterday Started on IV fluids TSH normal 03/03 Atenolol discontinued, transitioned to Verapamil no lightheadedness HR < 100 Aldactone added monitor 03/04 Heart rate still in the low 100s Verapamil increased to 240 mg p.o. twice daily Monitor Hypothyroidism continue levothyroxine Gout continue home allopurinol HLD continue home statin Diet: HH DVT Ppx: Eliquis Code status: FULL Dispo: pending PT/OT eval Admission and Anticipated Discharge Date Admission Date: February 24, 2023 Subjective Follow-up for dizziness, etc. Seen resting in bedside chair, comfortable, not distressed States she feels okay overall except for mild palpitations No shortness of breath, no chest pain No other new symptoms Review of Systems Review of Systems: all noted and negative except for above Physical Exam Physical Exam: General- oriented x 3, not in distress, speaks in sentences with no effort or accessory muscle use Eyes- anicteric Neck- no JVD Lungs- clear breath sounds bilaterally, no rales/wheezes Heart- normal rate, regular rhythm; no murmurs Abdomen- normal bowel sounds, nondistended, soft, nontender Extremities- mild pretibial edema, no calf tenderness Neuro- alert, oriented x 3; no gross focal neurologic deficits Skin- warm & dry Results & Data Results & Data Vital Signs (Past 12 Hours) Vital Signs Temp Pulse Pulse Resp BP BP Pulse Ox 03/04/23 19:00 36.8 C 97 H 18 121/69 92 03/04/23 16:30 37.0 C 89 16 119/71 91 03/04/23 15:14 81 03/04/23 11:47 36.8 C 104 H 20 130/83 94 O2 Del Method 03/04/23 19:00 Room Air 03/04/23 16:30 Room Air 03/04/23 15:14 03/04/23 11:47 Room Air all noted and reviewed including below
[2023-03-04] MEDS ORDERED: MAGNESIUM SULFATE / D5W 1 GM/100 ML BAG IV ONE ×2 (21:03→22:15)
[2023-03-04 21:55] LABS: BUN Creatinine Ratio 18.7 (10-20); Creatinine Clr Calc Pharmacy 49.5 ml/min; Est GFR (Non-African American) 60.4 ml/min; Magnesium 1.7 mg/dl (1.7-2.4); Potassium 3.6 mmol/L (3.5-5.1)
[2023-03-04] MEDS ORDERED: POTASSIUM CHLORIDE CRTAB 20 MEQ TABCR PO STA (21:57)
[2023-03-04] MEDS ORDERED: SODIUM CHLOR 0.45% + 20MEQ KCL 20 MEQ/1,000 ML BAG IV ONE (22:15)
[2023-03-05] MEDS: LEVOTHYROXINE SODIUM 137 MCG TABLET PO SCH (05:39)
[2023-03-05] MEDS: PANTOprazole 40 MG TAB PO SCH (09:11)
[2023-03-05] MEDS: allopurinoL 300 MG TAB PO SCH ×2 (09:11→20:29)
[2023-03-05] MEDS: CHOLECALCIFEROL 1,000 UNITS 25 MCG TAB PO SCH (09:11)
[2023-03-05] MEDS: MAGNESIUM OXIDE 400 MG TAB PO SCH (09:11)
[2023-03-05] MEDS: FAMOTIDINE 20 MG TAB PO SCH ×2 (09:11→20:30)
[2023-03-05] MEDS: APIXABAN 5 MG TABLET PO SCH ×2 (09:12→20:29)
[2023-03-05] MEDS: ROSUVASTATIN CALCIUM 5 MG TAB PO SCH (09:12)
[2023-03-05] MEDS: CYANOCOBALAMIN (B-12) 500 MCG TABLET PO SCH (09:12)
[2023-03-05] MEDS: FLUTICASONE/VILANTEROL 100/25MCG 14 PUFFS/INHALER INH SCH (09:13)
[2023-03-05] MEDS: VERAPAMIL HCL 240 MG TABCR PO SCH ×2 (10:01→20:30)
--- NOTE | 2023-03-05 13:46 | Cardiology Progress Note ---
Date of Service March 05, 2023 Assessment & Plan (1) Tachy-chintan syndrome: (2) Cardiac pacemaker in situ: (3) Palpitations: (4) Sinus tachycardia: (5) Orthostatic dizziness: Plan IMPRESSION: 78 year old female admitted for generalized fatigue, weakness, and shortness of breath. Echocardiogram with preserved LV systolic function no wall motion abnormalities or significant valvular disease. Symptomatic improvement in breathing with bronchodilators per the recommendations of pulmonary. Due to fatigue atenolol was held which has significantly improved her symptoms however now she has concerns regarding a racing heartbeat. PLAN: TBS/Palpitations: Patient with symptomatic palpitations/tachycardia. Patient with perm pacemaker. BP have been controlled Patient has been intolerant to metoprolol and now she believes she is intolerant to atenolol. -Continue diltiazem 360 mg daily -Patient is already on the max dose of diltiazem. She is unwilling to trial any other beta-blockers. -increase oral fluids 03/03/2023 Patient responding appropriately to switch from diltiazem to verapamil. We will continue to hold atenolol Add spironolactone 12.5 mg today and possibly 1 to 3 days/week for additional edema and diastolic Overall clinically improved 03/04/2023 Heart rate improving but still elevated at times. Will increase verapamil SR to 240 mg twice per day. Discontinue at 10 Will likely discharge on spironolactone 12.5 mg 3 days/week Will need BMP and uric acid with next lab draw given history of gout 03/05/2023 Patient tolerating current dosing of verapamil we will continue verapamil SR 240 mg twice per day. Discontinue atenolol Plan spironolactone 12.5 mg 3 days/week No further cardiac recommended Admission and Anticipated Discharge Date Admission Date: February 24, 2023 Subjective Patient was seen and personally examined, chart, telemetry reviewed Slowly improving heart rates trending towards much better control Transient ventricular pacing overnight Tolerating verapamil at current dose Physical Exam Constitutional: WD/WN, vitals as above no acute distress ENMT: external ear and nose normal, oropharynx normal Neck: normal visual inspection and trachea midline Respiratory: normal respiratory effort, lungs clear to auscultation Cardiovascular: Rate/Rhythm: regular rate and regular rhythm Heart Sounds: normal S1 and normal S2; no murmur Vessels: no JVD Extremities: + edema (Trace bilateral nonpitting lower extremity edema) Chest (Breasts): Chest: + pacemaker Gastrointestinal (Abdomen): normal bowel sounds, soft, nontender, no hepatosplenomegaly Skin: no rashes, warm and dry Psychiatric: Orientation: alert and oriented x 3 Results & Data Vital Signs (Past 12 Hours) Vital Signs Temp Pulse Pulse Resp BP Pulse Ox O2 Del Method 03/05/23 11:52 36.4 C L 91 H 16 111/76 95 Room Air 03/05/23 07:55 36.4 C L 99 H 16 119/73 94 Room Air 03/05/23 07:02 93 H 03/05/23 03:00 36.7 C 85 18 125/75 92 Room Air 03/05/23 01:50 Room Air
[2023-03-05] MEDS ORDERED: OXYMETAZOLINE 0.05% 30 ML BTL ONE (14:58)
--- NOTE | 2023-03-05 15:48 | Hospitalist Progress Note ---
Date of Service March 05, 2023 Assessment & Plan (1) Weakness: (2) History of pulmonary embolism: (3) Dyspnea on exertion: (4) CAD in [place] artery: (5) Ischemic cardiomyopathy: (6) Hypothyroidism: (7) Dyslipidemia: (8) GERD (gastroesophageal reflux disease): Plan per Dr. 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 Dyspnea on Exertion Possible underlying asthma Per ED provider, witnessed pt's O2 sat drop to the 80s with ambulation to the bathroom On 2L of oxygen, does not use oxygen at baseline Pt denies cough, congestion, chest pain Biofire negative Chest XRAY with atelectatic changes vs. aspiration/pneumonia CT chest obtained - no PE - + hiatal hernia, and atelectasis hs-troponin wnl, EKG with no acute changes BNP 41 Last echo in August 2022 noted an enlarged right ventricle with Harry's sign suggestive of PE at that time. Repeat echo obtained -LV systolic function is normal. EF 55 to 60%. RV is normal size. RV systolic function is qualitatively normal. Mild mitral regurg. Mild tricuspid regurg. Doppler findings do not suggest pulmonary hypertension. Continue oxygen supplementation as needed Incentive spirometer Pulmonary med. consulted for further recommendations - started bronchodilators for poss. asthma. Pt 's breathing seems to be improving. Currently she is on RA. 03/05 Stable Continue Breo Ellipta, Singulair Generalized Weakness Fatigue Uncertain etiology, acute in onset Pt saw her PCP for this about 2 weeks ago- noted she had just been weaned off of prednisone that she was on daily for 4 months (pt reports hx of gout) Symptoms possibly related to her dyspnea on exertion process Improved Tachy-chintan syndrome/Ischemic cardiomyopathy s/p dual chamber pacemaker. Continue diltiazem CAD in [place] artery Continue aspirin, statin Hypertension - at home on atenolol, diltiazem - pt feels often dizzy/lightheaded after she takes her AM meds, atenolol discontinued Dizziness resolved, but patient was having palpitations, heart rate in the 90s to early 100s Cardiology service consulted Transition to verapamil, uptitrated to 240 mg p.o. 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 Resting in bed, comfortable, not in distress States she feels better overall No dizziness, palpitations Breathing is also improved Had an episode of epistaxis overnight No other new symptoms Review of Systems Review of Systems: all noted and negative except for above Physical Exam Physical Exam: General- oriented x 3, not in distress, speaks in sentences with no effort or accessory muscle use Eyes- anicteric Nose-no masses, active bleeding Neck- no JVD Lungs- clear breath sounds bilaterally, no rales/wheezes Heart- normal rate, regular rhythm; no murmurs Abdomen- normal bowel sounds, nondistended, soft, nontender Extremities- no pretibial edema, no calf tenderness Neuro- alert, oriented x 3; no gross focal neurologic deficits Skin- warm & dry Results & Data Results & Data Vital Signs (Past 12 Hours) Vital Signs Temp Pulse Pulse Resp BP Pulse Ox O2 Del Method 03/05/23 11:52 36.4 C L 91 H 16 111/76 95 Room Air 03/05/23 07:55 36.4 C L 99 H 16 119/73 94 Room Air 03/05/23 07:02 93 H all noted and reviewed including below
[2023-03-05] MEDS: ASPIRIN 81 MG ECTAB PO SCH (20:30)
--- NOTE | 2023-03-06 05:56 | Communication Note ---
Date of Service: March 06, 2023 Patient with epistaxis from both nostrils as per RN. Episode started yesterday as per patient. No headache complaints. SBP 120s. AP Epistaxis Apply pressure to nostrils after Afrin administration Hold Eliquis and aspirin for now CBC now
[2023-03-06] MEDS: LEVOTHYROXINE SODIUM 137 MCG TABLET PO SCH (05:58)
[2023-03-06] MEDS ORDERED: OXYMETAZOLINE 0.05% 30 ML BTL NAE ONE (06:07)
[2023-03-06] MEDS ORDERED: hydrOXYzine HCl 10 MG TAB PO STA (06:07)
[2023-03-06] MEDS ORDERED: hydrOXYzine HCl 10 MG TAB PO PRN (06:13)
[2023-03-06 06:31] LABS: Basophils # (auto) 0.16 K/uL (0.00-0.20); Basophils % (auto) 1.6 %; Eosinophils # (auto) 0.25 K/uL (0.00-0.50); Eosinophils % (auto) 2.5 %; Hematocrit (blood only) 39.2 % (37.0-47.0); Hemoglobin 12.4 g/dl (12.0-16.0); Immature Granulocytes # (auto) 0.16 K/uL (0.01-0.20); Immature Granulocytes % (auto) 1.6 %; Lymphocytes # (auto) 2.22 K/uL (1.20-3.40); Lymphocytes % (auto) 21.8 %; Mean Corpuscular Hemoglobin 32.1 pg (25.0-34.0); Mean Corpuscular Hgb Conc 31.6 g/dL (32.0-36.0); Mean Corpuscular Volume 101.6 fL (80.0-100.0); Mean Platelet Volume 9.3 fL (9.4-12.4); Monocytes # (auto) 1.04 K/uL (0.11-0.59); Monocytes % (auto) 10.2 %; Neutrophils # (auto) 6.36 K/uL (1.40-6.50); Neutrophils % (auto) 62.3 %; Platelet Count 475 K/uL (130-400); RDW Coefficient of Variation 14.6 % (11.5-14.5); RDW Standard Deviation 54.7 fL (36.4-46.3); Red Blood Count 3.86 M/uL (4.20-5.40); White Blood Count 10.19 K/ul (4.8-10.8)
[2023-03-06 06:45] LABS: BUN Creatinine Ratio 20.2 (10-20); Calcium 8.3 mg/dl (8.6-10.3); Creatinine Clr Calc Pharmacy 54.2 ml/min; Est GFR (African American) 77.2 ml/min; Est GFR (Non-African American) 66.6 ml/min; Potassium 4.2 mmol/L (3.5-5.1)
[2023-03-06 06:59] LABS: Partial Thromboplastin Time 29 Seconds (21-31)
[2023-03-06] MEDS ORDERED: TXA 10% Non-IV Routes 100 MG/ML VIAL NEB ONE ×2 (08:39→15:07)
[2023-03-06] MEDS ORDERED: ACETAMINOPHEN 1,000 MG/100 ML VIAL IV STA (09:06)
[2023-03-06] MEDS ORDERED: ACETAMINOPHEN 325 MG TAB PO PRN (09:08)
--- NOTE | 2023-03-06 09:11 | Emergency Department Note ---
ED Visit Note Emergency department providers were consulted by hospitalist for epistaxis while admitted. They were unable to have ENT evaluate the patient in a timely manner and requested our services. Patient developed epistaxis at about 5:00 this morning which has been intermittent. Afrin was attempted with no relief. Patient is on blood thinners. Does endorse a history of intermittent epistaxis over the past few years, worse when she is on blood thinners. Examination of the patient reveals a persistent left-sided epistaxis which appears to be anterior. There is a clot in the posterior oropharynx though no active hemorrhage in the posterior oropharynx. Patient is somewhat anxious. Options of care were discussed with the patient, and verbal consent was obtained to place a Rhino Rocket. Epiastaxis control Rhino Rocket was soaked in sterile saline. 5.5 cm Inserted into the left nostril, 10 cc air into the balloon Hemostasis was achieved. No active hemorrhage in the posterior oropharynx. I did speak with the nurse to have some pain medication ordered for the patient as she was in some discomfort due to the amount of volume required to stop the bleed. .
[2023-03-06] MEDS: PROMETHAZINE HCL 6.25 MG in SODIUM CHLORIDE 0.9% 50 ML IV PRN (09:19)
[2023-03-06] MEDS: traMADol HCL 50 MG TABLET PO PRN ×3 (11:13→20:31)
[2023-03-06] MEDS: FAMOTIDINE 20 MG TAB PO SCH ×2 (11:46→20:31)
[2023-03-06] MEDS: allopurinoL 300 MG TAB PO SCH ×2 (11:46→20:30)
[2023-03-06] MEDS: CYANOCOBALAMIN (B-12) 500 MCG TABLET PO SCH (11:46)
[2023-03-06] MEDS: FLUTICASONE/VILANTEROL 100/25MCG 14 PUFFS/INHALER INH SCH (11:46)
[2023-03-06] MEDS: CHOLECALCIFEROL 1,000 UNITS 25 MCG TAB PO SCH (11:46)
[2023-03-06] MEDS: VERAPAMIL HCL 240 MG TABCR PO SCH ×2 (11:47→20:31)
[2023-03-06] MEDS: MAGNESIUM OXIDE 400 MG TAB PO SCH (11:47)
[2023-03-06] MEDS: PANTOprazole 40 MG TAB PO SCH (11:47)
[2023-03-06] MEDS: ROSUVASTATIN CALCIUM 5 MG TAB PO SCH (11:47)
--- NOTE | 2023-03-06 12:44 | Emergency Department Note ---
ED Visit Note I was notified by the patient's nurse that the patient was having a little bit of intermittent bleeding from the right nostril and as well as spitting out some blood intermittently. I reviewed this with ED attending Dr. Blunt. We contacted Dr. Woodall the patient's hospitalist with recommendations to contact ENT. He stated that he would be contacting ENT promptly. .
[2023-03-06] MEDS: cephALEXin 500 MG CAP PO SCH ×3 (15:29→20:31)
[2023-03-06] MEDS ORDERED: TXA 10% Non-IV Routes 100 MG/ML VIAL NEB PRN (15:38)
--- NOTE | 2023-03-06 15:42 | Hospitalist Progress Note ---
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 Left Nares epistaxis History of epistaxis in the past as well Intermittent epistaxis noted on March 05, 2023 On March 06atient started to have anterior specializes with profuse bleeding Patient seen and examined immediately at bedside. Diffuse bleeding noted from the anterior nurse. Multiple sprays of Afrin given; patient's neck placed in flexed position to avoid posterior drainage. Direct pressure applied in the anterior nose. Instructed RN to continue holding pressure for at least 15 minutes Discussed with ENT on-call; commended to use Afrin, hold pressure, nebulized TXA. If unsuccessful, recommended Rhino Rocket. Discussed with ED physician; Rhino Rocket was placed on the left naris. Patient continues to have intermittent bleeding. Discussed with ENT again; recommended TXA, Afrin and saline spray. Also recommended to place patient on antibiotic while the pack is in place. Tramadol ordered for pain control after discussion with the patient Hold aspirin and Eliquis Dyspnea on Exertion Possible asthma exacerbation Acute hypoxic respiratory failure Patient presented with shortness of breath and acute hypoxic respiratory failure Per ED provider, witnessed pt's O2 sat drop to the 80s with ambulation to the bathroom Chest XRAY with atelectatic changes vs. aspiration/pneumonia CT chest obtained - no PE - + hiatal hernia, and atelectasis hs-troponin wnl, EKG with no acute changes BNP 41 Last echo in August 2022 noted an enlarged right ventricle with Harry's sign suggestive of PE at that time. Repeat echo obtained -LV systolic function is normal. EF 55 to 60%. RV is normal size. RV systolic function is qualitatively normal. Mild mitral regurg. Mild tricuspid regurg. Doppler findings do not suggest pulmonary hypertension. Continue oxygen supplementation as needed Incentive spirometer Pulmonary med. consulted for further recommendations - started bronchodilators for poss. asthma. Pt 's breathing seems to be improving. Currently she is on RA. 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 GERD/Hiatal hernia Continue pantoprazole, famotidine Tachy-chintan syndrome/Ischemic cardiomyopathy s/p dual chamber pacemaker. Continue diltiazem CAD in [place] artery Continue statin. Aspirin currently on hold. Hypertension - at home on atenolol, diltiazem Cardiology consulted; recommended to continue verapamil to 40 mg twice per day. Discontinue atenolol. Plan for spironolactone 12.53 days/week Hypothyroidism continue levothyroxine Gout continue home allopurinol HLD continue home statin Diet: HH DVT Ppx: On hold due to bleeding Code status: FULL Dispo: Patient has recurrent epistaxis requiring Rhino Rocket to be placed on left Nares. Requires close monitoring. Discussed with at bedside. Total time spent evaluating patient, direct bedside care, chart review, placing orders, interpretation of diagnostic studies, discussion with consultants, patient, and family members, as well as other required patient management activities is 75 minutes Admission and Anticipated Discharge Date Admission Date: February 24, 2023 Subjective Patient was reported to have epistaxis. Patient seen and examined immediately at bedside. Diffuse bleeding noted from the anterior nurse. Multiple sprays of Afrin given; patient's neck placed in flexed position to avoid posterior drainage. Direct pressure applied in the anterior nose. Instructed RN to continue holding pressure for at least 15 minutes Discussed with ENT on-call; commended to use Afrin, hold pressure, nebulized TXA. If unsuccessful, recommended Rhino Rocket. Discussed with ED physician; Rhino Rocket was placed on the left naris. Patient continues to have intermittent bleeding. Discussed with ENT again; recommended TXA, Afrin and saline spray. Also recommended to place patient on antibiotic while the pack is in place. Tramadol ordered for pain control after discussion with the patient Review of Systems Review of Systems: All systems reviewed & are unremarkable except as noted in Subjective Physical Exam Physical Exam: General- oriented x 3, not in distress, speaks in sentences with no effort or accessory muscle use Eyes- anicteric Nose bleeding in anterior naris; Neck- no JVD Lungs- clear breath sounds bilaterally, no rales/wheezes Heart- normal rate, regular rhythm; no murmurs Abdomen- normal bowel sounds, nondistended, soft, nontender Extremities- no pretibial edema, no calf tenderness Neuro- alert, oriented x 3; no gross focal neurologic deficits Skin- warm & dry Results & Data Results & Data Vital Signs (Past 12 Hours) Vital Signs Temp Pulse Resp BP Pulse Ox O2 Del Method 03/06/23 15:23 36.6 C 95 H 14 163/92 H 92 Room Air 03/06/23 11:51 36.6 C 97 H 16 151/79 H 91 Room Air 03/06/23 11:28 100 H 18 95 Room Air 03/06/23 07:55 36.8 C 94 H 16 128/85 94 Room Air Laboratory Results Laboratory Results WBC 10.19 K/ul (4.8-10.8) 03/06/23 06:07 RBC 3.86 M/uL (4.20-5.40) L 03/06/23 06:07 Hgb 12.4 g/dl (12.0-16.0) 03/06/23 06:07 Hct 39.2 % (37.0-47.0) 03/06/23 06:07 MCV 101.6 fL (80.0-100.0) H 03/06/23 06:07 MCH 32.1 pg (25.0-34.0) 03/06/23 06:07 MCHC 31.6 g/dL (32.0-36.0) L 03/06/23 06:07 RDW Std Deviation 54.7 fL (36.4-46.3) H 03/06/23 06:07 RDW Coeff of Agnes 14.6 % (11.5-14.5) H 03/06/23 06:07 Plt Count 475 K/uL (130-400) H 03/06/23 06:07 MPV 9.3 fL (9.4-12.4) L 03/06/23 06:07 Immature Gran % (Auto) 1.6 % 03/06/23 06:07 Neut % (Auto) 62.3 % 03/06/23 06:07 Lymph % (Auto) 21.8 % 03/06/23 06:07 [place] % (Auto) 10.2 % 03/06/23 06:07 Eos % (Auto) 2.5 % 03/06/23 06:07 Baso % (Auto) 1.6 % 03/06/23 06:07 Neut # (Auto) 6.36 K/uL (1.40-6.50) 03/06/23 06:07 Lymph # (Auto) 2.22 K/uL (1.20-3.40) 03/06/23 06:07 [place] # (Auto) 1.04 K/uL (0.11-0.59) H 03/06/23 06:07 Eos # (Auto) 0.25 K/uL (0.00-0.50) 03/06/23 06:07 Baso # (Auto) 0.16 K/uL (0.00-0.20) 03/06/23 06:07 Immature Gran # (Auto) 0.16 K/uL (0.01-0.20) 03/06/23 06:07 Absolute Nucleated RBC 0.02 K/uL (0.00-0.12) 02/28/23 04:35 Nucleated RBC % (auto) 0.2 % 02/28/23 04:35 PT 11.4 Seconds (9.0-12.0) 02/24/23 09:47 INR 1.0 (0.9-1.1) 02/24/23 09:47 APTT 29 Seconds (21-31) 03/06/23 06:07 PTT Ratio 1.0 03/06/23 06:07 VBG pH 7.33 (7.36-7.41) L 02/24/23 13:00 VBG pCO2 49 mmHg (38-50) 02/24/23 13:00 VBG pO2 32 mmHg 02/24/23 13:00 VBG HCO3 26 mmol/L 02/24/23 13:00 VBG O2 Saturation < 60.0 % 02/24/23 13:00 VBG Base Excess -0.6 mEq/L 02/24/23 13:00 Sodium 141 mmol/L (136-145) 03/06/23 06:07 Potassium 4.2 mmol/L (3.5-5.1) 03/06/23 06:07 Chloride 109 mmol/L (98-107) H 03/06/23 06:07 Carbon Dioxide 27 mmol/L (21-32) 03/06/23 06:07 Anion Gap 5 (3-11) 03/06/23 06:07 BUN 17 mg/dl (6-23) 03/06/23 06:07 Creatinine 0.84 mg/dl (0.6-1.2) 03/06/23 06:07 Est Cr Clr Drug Dosing 54.2 ml/min 03/06/23 06:07 Est GFR ( Amer) 77.2 ml/min 03/06/23 06:07 Est GFR (Non-Af Amer) 66.6 ml/min 03/06/23 06:07 BUN/Creatinine Ratio 20.2 (10-20) H 03/06/23 06:07 Glucose 126 mg/dl (70-99(Fasting)) H 03/06/23 06:07 Estimat Average Glucose 123 mg/dl 02/25/23 05:50 Hemoglobin A1c 5.9 % (4.5-5.6) H 02/25/23 05:50 Calcium 8.3 mg/dl (8.6-10.3) L 03/06/23 06:07 Ionized Calcium 0.98 mmol/L (1.12-1.32) L 02/25/23 05:50 Phosphorus 3.7 mg/dl (2.5-4.9) 02/28/23 04:35 Magnesium 2.0 mg/dl (1.7-2.4) 03/06/23 06:07 Total Bilirubin 0.3 mg/dl (0.2-1.0) 02/25/23 05:50 AST 5 U/L (13-39) L 02/25/23 05:50 ALT 9 U/L (7-52) 02/25/23 05:50 Alkaline Phosphatase 82 U/L (34-104) 02/25/23 05:50 Troponin I High Sens 4.3 pg/ml (0-14) 02/24/23 09:47 B-Natriuretic Peptide 42 pg/ml (0-100) 02/24/23 13:00 Total Protein 4.7 gm/dl (6.0-8.3) L 02/25/23 05:50 Albumin 2.7 gm/dl (3.4-5.0) L 02/25/23 05:50 Globulin 2.0 gm/dl (2.5-4.0) L 02/25/23 05:50 Albumin/Globulin Ratio 1.4 (0.9-2) 02/25/23 05:50 Vitamin B12 621 pg/ml (180-914) 02/24/23 09:47 TSH 1.488 uIu/ml (0.300-4.500) 02/24/23 09:47 Cortisol AM Sample 17.52 mcg/dl (6.2-22.6) 03/02/23 07:04 Urine Color Yellow 02/24/23 12:05 Urine Appearance Slightly Cloudy (Clear) 02/24/23 12:05 Urine pH 6.0 (4.5-7.5) 02/24/23 12:05 Ur Specific [place] >= 1.030 (1.000-1.030) 02/24/23 12:05 Urine Protein 1+ (Negative) H 02/24/23 12:05 Urine Glucose (UA) Negative (Negative) 02/24/23 12:05 Urine Ketones Negative (Negative) 02/24/23 12:05 Urine Blood Negative (Negative) 02/24/23 12:05 Urine Nitrite Negative (Negative) 02/24/23 12:05 Urine Bilirubin Negative (Negative) 02/24/23 12:05 Urine Urobilinogen Negative (Negative) 02/24/23 12:05 Ur Leukocyte Esterase Negative (Negative) 02/24/23 12:05 Urine RBC 0-4 /hpf (0-4) 02/24/23 12:05 Urine WBC 0-5 /hpf (0-5) 02/24/23 12:05 Ur Epithelial Cells >30 /lpf (0-5) H 02/24/23 12:05 Urine Bacteria 1+ (Negative) H 02/24/23 12:05 Adenovirus (PCR) Not Detected (NotDetected) 02/24/23 10:49 B. pertussis DNA (PCR) Not Detected (NotDetected) 02/24/23 10:49 B.parapertussis DNA PCR Not Detected (NotDetected) 02/24/23 10:49 C. pneumoniae DNA (PCR) Not Detected (NotDetected) 02/24/23 10:49 Coronavirus OC43 (PCR) Not Detected (NotDetected) 02/24/23 10:49 Coronavirus HKU1 (PCR) Not Detected (NotDetected) 02/24/23 10:49 Coronavirus 229E (PCR) Not Detected (NotDetected) 02/24/23 10:49 SARS-CoV-2 (PCR) NEGATIVE (Negative) 03/04/23 Unknown Coronavirus NL63 (PCR) Not Detected (NotDetected) 02/24/23 10:49 Human Metapneumovir PCR Not Detected (NotDetected) 02/24/23 10:49 Influenza Type A (PCR) Not Detected (NotDetected) 02/24/23 10:49 Influenza Type B (PCR) Not Detected (NotDetected) 02/24/23 10:49 M. pneumoniae (PCR) Not Detected (NotDetected) 02/24/23 10:49 Parainfluenza 1 (PCR) Not Detected (NotDetected) 02/24/23 10:49 Parainfluenza 2 (PCR) Not Detected (NotDetected) 02/24/23 10:49 Parainfluenza 3 (PCR) Not Detected (NotDetected) 02/24/23 10:49 Parainfluenza 4 (PCR) Not Detected (NotDetected) 02/24/23 10:49 RSV (PCR) Not Detected (NotDetected) 02/24/23 10:49 Entero/Rhino (PCR) Not Detected (NotDetected) 02/24/23 10:49 SARS-CoV-2, RNA, NAAT NEGATIVE (NEGATIVE) 02/28/23 18:12 Blood Type O Positive 03/06/23 06:07 Antibody Screen NEGATIVE 03/06/23 06:07 Impressions Chest X-Ray 02/24/23 10:44 XR chest 1V portable CLINICAL HISTORY: weakness TECHNIQUE: Single frontal radiograph of the chest was obtained. Comparison: Comparison is made to chest radiograph 01/16/2023 FINDINGS: An implanted pacemaker is seen. Calcified aortic knob is seen. Bilateral lower lung linear opacities likely represent atelectasis. Blunting of left costophrenic angle is again seen likely due to extrapleural fat. IMPRESSION: There is bilateral airspace opacity which likely represent atelectasis with or without superimposed aspiration/pneumonia. ACT 112: Negative or not required by law. Electronically signed by: Rafael Solitario M.D. 02/24/2023 11:[address] 02/24/23 10:44 CT head/brain wo con CLINICAL HISTORY: weakness Technique: Contiguous axial CT images of the head were acquired from the base of the skull to the vertex without intravenous contrast administration. Images were viewed in brain, subdural and bone windows. Automated dose lowering techniques and/or adjustment according to patient size were utilized for this exam. Comparison: Comparison is made to CT head 01/03/2021 Findings: The ventricles, basal cisterns, and cerebral sulci are normal. There is no acute intracranial hemorrhage or evidence of acute territorial infarction. Neither mass effect, shift of the midline structures, nor abnormal extra-axial fluid collections are shown. Imaged portions of the paranasal sinuses and mastoid air cells are clear. The orbits appear normal. There are no acute fractures of the calvaria or scalp swelling. Impression: No acute intracranial hemorrhage, no evidence of acute territorial infarction or other acute intracranial disease process. ACT 112: Negative or not required by law. Electronically signed by: Rafael Solitario M.D. 02/24/2023 11:21 AM Chest CTA 02/24/23 13:07 CT angio chest PE protocol CLINICAL HISTORY: PE TECHNIQUE: Multidetector row helical CT of the chest was performed with angiographic protocol. Coronal and sagittal reformations were obtained. Coronal and sagittal MIPS were obtained from the axial data set and were submitted for review. Automated dose lowering techniques and/or adjustment according to patient size were utilized for this exam. CT DOSE: 572.82 mGy.cm Comparison: Comparison is made to CTA chest 09/02/2022 FINDINGS: Lungs and pleura: Atelectasis versus scarring is seen in the dependent portions of the lungs. Heart and pericardium: Cardiomegaly is seen with biatrial enlargement. Vessels: Evaluation for pulmonary embolism is limited due to patient motion. No evidence of central, lobar, or segmental embolus. Moderate atherosclerotic disease is seen. Mediastinum and milady: Unremarkable. Chest wall and lower neck: Unremarkable. Abdomen: Large hiatal hernia is seen. There is a left renal cyst measuring 18 mm in diameter. Bones: Degenerative changes in the thoracic spine. IMPRESSION: No acute abnormality and in particular no evidence of pulmonary embolus. Atelectasis is seen with a large hiatal hernia. Mild cardiomegaly is again seen. ACT 112: Negative or not required by law. Electronically signed by: Rafael Solitario M.D. 02/24/2023 2:35 PM
[2023-03-06] MEDS: SODIUM CHLORIDE 0.65% NA SOLN 45 ML (OCEAN) SCH ×3 (17:14→23:07)
[2023-03-07] MEDS: traMADol HCL 50 MG TABLET PO PRN ×3 (02:01→12:58)
[2023-03-07] MEDS: SODIUM CHLORIDE 0.65% NA SOLN 45 ML (OCEAN) SCH ×5 (03:20→18:30)
[2023-03-07 05:23] LABS: Basophils # (auto) 0.14 K/uL (0.00-0.20); Basophils % (auto) 1.1 %; Eosinophils # (auto) 0.15 K/uL (0.00-0.50); Eosinophils % (auto) 1.2 %; Hematocrit (blood only) 35.7 % (37.0-47.0); Hemoglobin 11.7 g/dl (12.0-16.0); Immature Granulocytes # (auto) 0.12 K/uL (0.01-0.20); Lymphocytes # (auto) 2.17 K/uL (1.20-3.40); Lymphocytes % (auto) 17.6 %; Mean Corpuscular Hemoglobin 32.2 pg (25.0-34.0); Mean Corpuscular Hgb Conc 32.8 g/dL (32.0-36.0); Mean Corpuscular Volume 98.3 fL (80.0-100.0); Mean Platelet Volume 9.7 fL (9.4-12.4); Monocytes # (auto) 1.23 K/uL (0.11-0.59); Neutrophils # (auto) 8.55 K/uL (1.40-6.50); Neutrophils % (auto) 69.1 %; Platelet Count 446 K/uL (130-400); RDW Coefficient of Variation 14.5 % (11.5-14.5); RDW Standard Deviation 52.1 fL (36.4-46.3); Red Blood Count 3.63 M/uL (4.20-5.40); White Blood Count 12.36 K/ul (4.8-10.8)
[2023-03-07] MEDS: LEVOTHYROXINE SODIUM 137 MCG TABLET PO SCH (06:35)
[2023-03-07] MEDS: cephALEXin 500 MG CAP PO SCH ×4 (08:26→20:43)
[2023-03-07] MEDS: FAMOTIDINE 20 MG TAB PO SCH ×2 (08:26→20:41)
[2023-03-07] MEDS: VERAPAMIL HCL 240 MG TABCR PO SCH ×2 (08:26→20:41)
[2023-03-07] MEDS: PANTOprazole 40 MG TAB PO SCH (08:26)
[2023-03-07] MEDS: ROSUVASTATIN CALCIUM 5 MG TAB PO SCH (08:28)
[2023-03-07] MEDS: allopurinoL 300 MG TAB PO SCH ×2 (08:28→20:42)
[2023-03-07] MEDS: FLUTICASONE/VILANTEROL 100/25MCG 14 PUFFS/INHALER INH SCH (08:28)
[2023-03-07] MEDS: CHOLECALCIFEROL 1,000 UNITS 25 MCG TAB PO SCH (08:29)
[2023-03-07] MEDS: MAGNESIUM OXIDE 400 MG TAB PO SCH (08:29)
[2023-03-07] MEDS: CYANOCOBALAMIN (B-12) 500 MCG TABLET PO SCH (08:29)
--- NOTE | 2023-03-07 09:52 | ENT Consultation ---
Date of Consultation March 07, 2023 Assessment & Plan (1) Left-sided epistaxis: Plan 78yF on ASA/PVX with L epistaxis requiring packing. Adequate hemostasis with pack in place. -Abx while pack in place (keflex) -Nasal saline spray QID -Afrin TID x3 days, then prn epistaxis -TXA nebs prn epistaxis -Will need to follow up 3-5 days for packing removal. As there will be no physician in our office in that timeframe, will need to have pack removed on the floor vs. return to the ED for removal. -May follow up as an outpatient for potential cauterization once pack removed History of Present Illness Attending Physician: Mark Woodall MD History of Present Illness 78yF with significant cardiac history on ASA/PVX admitted to the hospital and developed L epistaxis on the floor yesterday. Did not resolve with afrin/pressure, required pack by ED physician. Mild bloody drainage improved with TXA nebs. History of R epistaxis requiring in office cauterization 2019. Allergies Allergy/AdvReac Type Severity Reaction Status Date / Time imipenem Allergy Severe ANAPHYLAXIS Verified 11/16/22 20:55 Sulfa (Sulfonamide Allergy Severe hives,sob, Verified 11/16/22 20:55 Antibiotics) can take Dyazide daptomycin AdvReac Severe Anaphylaxis Unverified 11/16/22 20:55 colchicine AdvReac Intermediate diarrhea Verified 11/16/22 20:55 metoprolol AdvReac Mild fatigue Verified 11/16/22 20:55 zoledronic acid AdvReac Mild NAUSEA AND Verified 11/16/22 20:55 VOMITING Home Medications Medication Instructions Recorded Confirmed Type cholecalciferol (vitamin D3) 50 2,000 unit PO QAM 04/28/18 02/24/23 History mcg (2,000 unit) tablet (Vitamin D3) fexofenadine 180 mg tablet 180 mg PO DAILY 04/28/18 02/24/23 History ([place]ke Allergy) nitroglycerin 0.4 mg sublingual 0.4 mg sublingual Q5M chest pain 05/01/18 02/24/23 Rx tablet (Nitrostat) #25 tabs aspirin 81 mg tablet,delayed 81 mg PO HS #0 tabs 05/16/18 02/24/23 Rx release fluticasone propionate 50 2 spray intranasal QAM PRN Nasal 06/03/18 02/24/23 History mcg/actuation nasal Congestion spray,suspension (Flonase Allergy Relief) dicyclomine 20 mg tablet 20 mg PO TID PRN IBS 02/12/19 02/24/23 History allopurinol 300 mg tablet 300 mg PO QAM 01/23/21 02/24/23 History coenzyme Q10 100 mg capsule 100 mg PO DAILY 01/23/21 02/24/23 History (CoQ-10) diltiazem HCl 360 mg 360 mg PO QPM 01/23/21 02/24/23 History tablet,extended release 24 hr levothyroxine 137 mcg tablet 137 mcg PO DAILYBB 01/23/21 02/24/23 History rosuvastatin 5 mg tablet 5 mg PO DAILY 01/23/21 02/24/23 History allopurinol 300 mg tablet 150 mg PO QPM 08/18/22 02/24/23 History atenolol 25 mg tablet 12.5 mg PO DAILY 08/18/22 02/24/23 History famotidine 20 mg tablet 20 mg PO BID 08/18/22 02/24/23 History loperamide 2 mg tablet 2 mg PO QID PRN Diarrhea 08/18/22 02/24/23 History apixaban 5 mg tablet (Eliquis) 5 mg PO BID #60 tabs 09/06/22 02/24/23 Rx Probiotic For Women 1 tab PO DAILY 11/16/22 02/24/23 History pantoprazole 40 mg tablet,delayed 40 mg PO DAILY 02/24/23 02/24/23 History release fluticasone propionate 115 2 puff inhalation BID #12 grams 02/28/23 Rx mcg-salmeterol 21 mcg/actuation HFA inhaler (Advair HFA) montelukast 10 mg tablet 10 mg PO HS #30 tabs 02/28/23 Rx Patient History Medical History CAD (coronary artery disease) Osteoporosis 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 Retinal vein occlusion of right eye History of non-ST elevation myocardial infarction (NSTEMI) Vitamin B12 deficiency Ischemic cardiomyopathy Non-ST elevated myocardial infarction (non-STEMI) Rupture of left posterior tibialis tendon GERD (gastroesophageal reflux disease) History of pulmonary embolism History of DVT (deep vein thrombosis) Dyslipidemia Hypothyroidism Hypertension (Unknown) BP better today continue higher dose of metoprolol Surgical History Status post biventricular pacemaker History of cardiac cath S/P BSO (status post bilateral salpingo-oophorectomy) S/P IVC filter Status post right knee replacement Status post hysterectomy Family History Father Coronary heart disease Heart disease Mother Stroke Allergies Grandmother Asthma Grandfather Asthma Other Hypertension No family history of adverse response to anesthesia No family history of bleeding disorder Social History Smoking Status: Never smoker Second Hand Exposure: No; Do You Dip or Chew Tobacco: No; Hx Alcohol Use: No Hx Substance Use: No Preferred Language: Armenian Communication Ability: Effective Screening Representative Required: No Beliefs That Will Affect Care: None marital status: Current Living Situation: Family Current Living Situation Comment: Lives with daughter current occupational status: employed How many Children do You have: 1 Feels Safe at Home: Yes Assistive Devices: Cane and Walker Review of Systems Review of Systems: A 10-point ROS is negative except as noted above Physical Exam Physical Exam: General: No acute distress, nonlabored respirations Eyes: Extraocular motion is intact. Normal sclera and conjunctiva Ears: External ears normal Nose: rapid rhino in L naris without active epistaxis , R nasal cavity clear. Oropharynx: scant bloody secretions in posterior oropharynx Neck: soft, no masses or lymphadenopathy Results & Data Vital Signs (Past 12 Hours) Vital Signs Temp Pulse Pulse Resp BP BP Pulse Ox 03/07/23 07:26 36.5 C 110 H 18 123/78 95 03/07/23 07:13 88 03/07/23 05:33 106 H 18 94 03/07/23 02:56 36.6 C 100 H 18 148/78 H 90 03/07/23 01:42 98 H 03/06/23 22:53 36.7 C 100 H 16 124/79 92 O2 Del Method 03/07/23 07:26 Room Air 03/07/23 07:13 03/07/23 05:33 Room Air 12/07/23 02:56 Room Air 03/07/23 01:42 03/06/23 22:53 Room Air Laboratory Results Hb 12.4 --> 11.7 PG Care Time/CCT Total # of Minutes Spent Total Time Spent with Patient: Total time spent is greater than 50% in coordination of care (as documented) at patient's floor/unit and/or counseling patient: Coding Level of Care Code 42341 OFFICE CONSULT LVL M Diagnoses Left-sided epistaxis R04.0
--- NOTE | 2023-03-07 13:17 | Hospitalist Progress Note ---
Date of Service March 07, 2023 Assessment & Plan (1) Weakness: (2) History of pulmonary embolism: (3) Dyspnea on exertion: (4) CAD in [place] artery: (5) Ischemic cardiomyopathy: (6) Hypothyroidism: (7) Dyslipidemia: (8) GERD (gastroesophageal reflux disease): Plan This is a 77yo F with a PMHx significant for diverticulitis and gastroenteritis 2/2 astrovirus infection, Hx PE with associated heart strain and Hx of DVT, hiatal hernia, mild asthma, CAD, history of tachybradycardia syndrome, ischemic cardiomyopathy, HTN, HLD, CKD stage III, hypothyroidism, GERD, history of DVT/PE who presents with progressing generalized weakness and dyspnea on exertion. Left Nares epistaxis History of epistaxis in the past as well Intermittent epistaxis noted on March 05, 2023 On March 06atient started to have anterior specializes with profuse bleeding Status post Afrin and nasal packing Discussed with Dr. Burns from ENT; antibiotics while on pack in place, nasal pray qid, afrin tid x 3 days, txa nebs prn. Follow-up in 3 to 5 days for packing removal. Coordinated with rehabilitation case coordinator; patient will need to follow-up in the ED for the removal of Rhino Rocket Dyspnea on Exertion Possible asthma exacerbation Acute hypoxic respiratory failure Patient presented with shortness of breath and acute hypoxic respiratory failure Per ED provider, witnessed pt's O2 sat drop to the 80s with ambulation to the bathroom Chest XRAY with atelectatic changes vs. aspiration/pneumonia CT chest obtained - no PE - + hiatal hernia, and atelectasis hs-troponin wnl, EKG with no acute changes BNP 41 Last echo in August 2022 noted an enlarged right ventricle with Harry's sign suggestive of PE at that time. Repeat echo obtained -LV systolic function is normal. EF 55 to 60%. RV is normal size. RV systolic function is qualitatively normal. Mild mitral regurg. Mild tricuspid regurg. Doppler findings do not suggest pulmonary hypertension. Continue oxygen supplementation as needed Incentive spirometer Pulmonary med. consulted for further recommendations - started bronchodilators for poss. asthma. Pt 's breathing seems to be improving. Currently she is requiring 1 L of oxygen by nasal cannula. Generalized Weakness Fatigue Uncertain etiology, acute in onset Pt saw her PCP for this about 2 weeks ago- noted she had just been weaned off of prednisone that she was on daily for 4 months (pt reports hx of gout) Symptoms possibly related to her dyspnea on exertion process Hx of bilateral pulmonary emboli Noted during last admission in August 2022 Currently on Eliquis 5mg BID, states has been taking it as prescribed H/o VTE in the past so likely needs lifelong anticoagulation Given her recent episode of epistaxis; will need to follow-up with PCP to dis cuss further. GERD/Hiatal hernia Continue pantoprazole, famotidine Tachy-chintan syndrome/Ischemic cardiomyopathy s/p dual chamber pacemaker. Continue diltiazem CAD in [place] artery Continue statin. Aspirin currently on hold. Hypertension - at home on atenolol, diltiazem Cardiology consulted; recommended to continue verapamil to 40 mg twice per day. Discontinue atenolol. Plan for spironolactone 12.5 3 days/week Hypothyroidism continue levothyroxine Gout continue home allopurinol HLD continue home statin Diet: HH DVT Ppx: On hold due to bleeding Code status: FULL Dispo: Patient has recurrent epistaxis requiring Rhino Rocket to be placed on left Nares. Requires close monitoring for recurrence. Time spent evaluating patient, direct bedside care, chart review, placing orders, interpretation of diagnostic studies, discussion with consultants, patient, and family members, as well as other required patient management activities is 50 minutes Please note the above document was generated using voice recognition software. It may contain grammatical, syntax or spelling errors. Any formal questions or concerns about the content, text or information contained within the body of this dictation should be directly addressed to the provider for clarification Admission and Anticipated Discharge Date Admission Date: February 24, 2023 Subjective Patient seen and examined at bedside. She appears tired and lethargic. She is using tramadol frequently for pain. She had some intermittent bleeding overnight through the left nares Review of Systems Review of Systems: All systems reviewed & are unremarkable except as noted in Subjective Physical Exam Physical Exam: General- oriented x 3, appears tired Eyes- anicteric Nose-packing in place in left nostril Neck- no JVD Lungs- clear breath sounds bilaterally, no rales/wheezes Heart- normal rate, regular rhythm; no murmurs Abdomen- normal bowel sounds, nondistended, soft, nontender Extremities- no pretibial edema, no calf tenderness Neuro- alert, oriented x 3; no gross focal neurologic deficits Skin- warm & dry Results & Data Results & Data Vital Signs (Past 12 Hours) Vital Signs Temp Pulse Pulse Resp BP BP Pulse Ox 03/07/23 11:27 36.9 C 86 16 133/76 92 03/07/23 07:26 36.5 C 110 H 18 123/78 95 03/07/23 07:13 88 03/07/23 05:33 106 H 18 94 03/07/23 02:56 36.6 C 100 H 18 148/78 H 90 03/07/23 01:42 98 H O2 Del Method O2 Flow Rate 03/07/23 11:27 Nasal Cannula 1 03/07/23 07:26 Room Air 03/07/23 07:13 03/07/23 05:33 Room Air 03/07/23 02:56 Room Air 03/07/23 01:42 Laboratory Results Laboratory Results WBC 12.36 K/ul (4.8-10.8) H 03/07/23 04:01 RBC 3.63 M/uL (4.20-5.40) L 03/07/23 04:01 Hgb 11.7 g/dl (12.0-16.0) L 03/07/23 04:01 Hct 35.7 % (37.0-47.0) L 03/07/23 04:01 MCV 98.3 fL (80.0-100.0) 03/07/23 04:01 MCH 32.2 pg (25.0-34.0) 03/07/23 04:01 MCHC 32.8 g/dL (32.0-36.0) 03/07/23 04:01 RDW Std Deviation 52.1 fL (36.4-46.3) H 03/07/23 04:01 RDW Coeff of Agnes 14.5 % (11.5-14.5) 03/07/23 04:01 Plt Count 446 K/uL (130-400) H 03/07/23 04:01 MPV 9.7 fL (9.4-12.4) 03/07/23 04:01 Immature Gran % (Auto) 1.0 % 03/07/23 04:01 Neut % (Auto) 69.1 % 03/07/23 04:01 Lymph % (Auto) 17.6 % 03/07/23 04:01 [place] % (Auto) 10.0 % 03/07/23 04:01 Eos % (Auto) 1.2 % 03/07/23 04:01 Baso % (Auto) 1.1 % 03/07/23 04:01 Neut # (Auto) 8.55 K/uL (1.40-6.50) H 03/07/23 04:01 Lymph # (Auto) 2.17 K/uL (1.20-3.40) 03/07/23 04:01 [place] # (Auto) 1.23 K/uL (0.11-0.59) H 03/07/23 04:01 Eos # (Auto) 0.15 K/uL (0.00-0.50) 03/07/23 04:01 Baso # (Auto) 0.14 K/uL (0.00-0.20) 03/07/23 04:01 Immature Gran # (Auto) 0.12 K/uL (0.01-0.20) 03/07/23 04:01 Absolute Nucleated RBC 0.02 K/uL (0.00-0.12) 02/28/23 04:35 Nucleated RBC % (auto) 0.2 % 02/28/23 04:35 PT 11.4 Seconds (9.0-12.0) 02/24/23 09:47 INR 1.0 (0.9-1.1) 02/24/23 09:47 APTT 29 Seconds (21-31) 03/06/23 06:07 PTT Ratio 1.0 03/06/23 06:07 VBG pH 7.33 (7.36-7.41) L 02/24/23 13:00 VBG pCO2 49 mmHg (38-50) 02/24/23 13:00 VBG pO2 32 mmHg 02/24/23 13:00 VBG HCO3 26 mmol/L 02/24/23 13:00 VBG O2 Saturation < 60.0 % 02/24/23 13:00 VBG Base Excess -0.6 mEq/L 02/24/23 13:00 Sodium 141 mmol/L (136-145) 03/06/23 06:07 Potassium 4.2 mmol/L (3.5-5.1) 03/06/23 06:07 Chloride 109 mmol/L (98-107) H 03/06/23 06:07 Carbon Dioxide 27 mmol/L (21-32) 03/06/23 06:07 Anion Gap 5 (3-11) 03/06/23 06:07 BUN 17 mg/dl (6-23) 03/06/23 06:07 Creatinine 0.84 mg/dl (0.6-1.2) 03/06/23 06:07 Est Cr Clr Drug Dosing 54.2 ml/min 03/06/23 06:07 Est GFR ( Amer) 77.2 ml/min 03/06/23 06:07 Est GFR (Non-Af Amer) 66.6 ml/min 03/06/23 06:07 BUN/Creatinine Ratio 20.2 (10-20) H 03/06/23 06:07 Glucose 126 mg/dl (70-99(Fasting)) H 03/06/23 06:07 Estimat Average Glucose 123 mg/dl 02/25/23 05:50 Hemoglobin A1c 5.9 % (4.5-5.6) H 02/25/23 05:50 Calcium 8.3 mg/dl (8.6-10.3) L 03/06/23 06:07 Ionized Calcium 0.98 mmol/L (1.12-1.32) L 02/25/23 05:50 Phosphorus 3.7 mg/dl (2.5-4.9) 02/28/23 04:35 Magnesium 2.0 mg/dl (1.7-2.4) 03/06/23 06:07 Total Bilirubin 0.3 mg/dl (0.2-1.0) 02/25/23 05:50 AST 5 U/L (13-39) L 02/25/23 05:50 ALT 9 U/L (7-52) 02/25/23 05:50 Alkaline Phosphatase 82 U/L (34-104) 02/25/23 05:50 Troponin I High Sens 4.3 pg/ml (0-14) 02/24/23 09:47 B-Natriuretic Peptide 42 pg/ml (0-100) 02/24/23 13:00 Total Protein 4.7 gm/dl (6.0-8.3) L 02/25/23 05:50 Albumin 2.7 gm/dl (3.4-5.0) L 02/25/23 05:50 Globulin 2.0 gm/dl (2.5-4.0) L 02/25/23 05:50 Albumin/Globulin Ratio 1.4 (0.9-2) 02/25/23 05:50 Vitamin B12 621 pg/ml (180-914) 02/24/23 09:47 TSH 1.488 uIu/ml (0.300-4.500) 02/24/23 09:47 Cortisol AM Sample 17.52 mcg/dl (6.2-22.6) 03/02/23 07:04 Urine Color Yellow 02/24/23 12:05 Urine Appearance Slightly Cloudy (Clear) 02/24/23 12:05 Urine pH 6.0 (4.5-7.5) 02/24/23 12:05 Ur Specific [place] >= 1.030 (1.000-1.030) 02/24/23 12:05 Urine Protein 1+ (Negative) H 02/24/23 12:05 Urine Glucose (UA) Negative (Negative) 02/24/23 12:05 Urine Ketones Negative (Negative) 02/24/23 12:05 Urine Blood Negative (Negative) 02/24/23 12:05 Urine Nitrite Negative (Negative) 02/24/23 12:05 Urine Bilirubin Negative (Negative) 02/24/23 12:05 Urine Urobilinogen Negative (Negative) 02/24/23 12:05 Ur Leukocyte Esterase Negative (Negative) 02/24/23 12:05 Urine RBC 0-4 /hpf (0-4) 02/24/23 12:05 Urine WBC 0-5 /hpf (0-5) 02/24/23 12:05 Ur Epithelial Cells >30 /lpf (0-5) H 02/24/23 12:05 Urine Bacteria 1+ (Negative) H 02/24/23 12:05 Adenovirus (PCR) Not Detected (NotDetected) 02/24/23 10:49 B. pertussis DNA (PCR) Not Detected (NotDetected) 02/24/23 10:49 B.parapertussis DNA PCR Not Detected (NotDetected) 02/24/23 10:49 C. pneumoniae DNA (PCR) Not Detected (NotDetected) 02/24/23 10:49 Coronavirus OC43 (PCR) Not Detected (NotDetected) 02/24/23 10:49 Coronavirus HKU1 (PCR) Not Detected (NotDetected) 02/24/23 10:49 Coronavirus 229E (PCR) Not Detected (NotDetected) 02/24/23 10:49 SARS-CoV-2 (PCR) NEGATIVE (Negative) 03/04/23 Unknown Coronavirus NL63 (PCR) Not Detected (NotDetected) 02/24/23 10:49 Human Metapneumovir PCR Not Detected (NotDetected) 02/24/23 10:49 Influenza Type A (PCR) Not Detected (NotDetected) 02/24/23 10:49 Influenza Type B (PCR) Not Detected (NotDetected) 02/24/23 10:49 M. pneumoniae (PCR) Not Detected (NotDetected) 02/24/23 10:49 Parainfluenza 1 (PCR) Not Detected (NotDetected) 02/24/23 10:49 Parainfluenza 2 (PCR) Not Detected (NotDetected) 02/24/23 10:49 Parainfluenza 3 (PCR) Not Detected (NotDetected) 02/24/23 10:49 Parainfluenza 4 (PCR) Not Detected (NotDetected) 02/24/23 10:49 RSV (PCR) Not Detected (NotDetected) 02/24/23 10:49 Entero/Rhino (PCR) Not Detected (NotDetected) 02/24/23 10:49 SARS-CoV-2, RNA, NAAT NEGATIVE (NEGATIVE) 02/28/23 18:12 Blood Type O Positive 03/06/23 06:07 Antibody Screen NEGATIVE 03/06/23 06:07 Impressions Chest X-Ray 02/24/23 10:44 XR chest 1V portable CLINICAL HISTORY: weakness TECHNIQUE: Single frontal radiograph of the chest was obtained. Comparison: Comparison is made to chest radiograph 01/16/2023 FINDINGS: An implanted pacemaker is seen. Calcified aortic knob is seen. Bilateral lower lung linear opacities likely represent atelectasis. Blunting of left costophrenic angle is again seen likely due to extrapleural fat. IMPRESSION: There is bilateral airspace opacity which likely represent atelectasis with or without superimposed aspiration/pneumonia. ACT 112: Negative or not required by law. Electronically signed by: Rafael Solitario M.D. 02/24/2023 11:[address] 02/24/23 10:44 CT head/brain wo con CLINICAL HISTORY: weakness Technique: Contiguous axial CT images of the head were acquired from the base of the skull to the vertex without intravenous contrast administration. Images were viewed in brain, subdural and bone windows. Automated dose lowering techniques and/or adjustment according to patient size were utilized for this exam. Comparison: Comparison is made to CT head 01/03/2021 Findings: The ventricles, basal cisterns, and cerebral sulci are normal. There is no acute intracranial hemorrhage or evidence of acute territorial infarction. Neither mass effect, shift of the midline structures, nor abnormal extra-axial fluid collections are shown. Imaged portions of the paranasal sinuses and mastoid air cells are clear. The orbits appear normal. There are no acute fractures of the calvaria or scalp swelling. Impression: No acute intracranial hemorrhage, no evidence of acute territorial infarction or other acute intracranial disease process. ACT 112: Negative or not required by law. Electronically signed by: Rafael Solitario M.D. 02/24/2023 11:21 AM Chest CTA 02/24/23 13:07 CT angio chest PE protocol CLINICAL HISTORY: PE TECHNIQUE: Multidetector row helical CT of the chest was performed with angiographic protocol. Coronal and sagittal reformations were obtained. Coronal and sagittal MIPS were obtained from the axial data set and were submitted for review. Automated dose lowering techniques and/or adjustment according to patient size were utilized for this exam. CT DOSE: 572.82 mGy.cm Comparison: Comparison is made to CTA chest 09/02/2022 FINDINGS: Lungs and pleura: Atelectasis versus scarring is seen in the dependent portions of the lungs. Heart and pericardium: Cardiomegaly is seen with biatrial enlargement. Vessels: Evaluation for pulmonary embolism is limited due to patient motion. No evidence of central, lobar, or segmental embolus. Moderate atherosclerotic disease is seen. Mediastinum and milady: Unremarkable. Chest wall and lower neck: Unremarkable. Abdomen: Large hiatal hernia is seen. There is a left renal cyst measuring 18 mm in diameter. Bones: Degenerative changes in the thoracic spine. IMPRESSION: No acute abnormality and in particular no evidence of pulmonary embolus. Atelectasis is seen with a large hiatal hernia. Mild cardiomegaly is again seen. ACT 112: Negative or not required by law. Electronically signed by: Rafael Solitario M.D. 02/24/2023 2:35 PM
[2023-03-07] MEDS: OXYMETAZOLINE 0.05% 30 ML BTL SCH ×2 (14:11→20:43)
[2023-03-08] MEDS: SODIUM CHLORIDE 0.65% NA SOLN 45 ML (OCEAN) SCH ×4 (01:43→18:14)
[2023-03-08] MEDS: OXYMETAZOLINE 0.05% 30 ML BTL SCH ×3 (05:26→20:21)
[2023-03-08] MEDS: LEVOTHYROXINE SODIUM 137 MCG TABLET PO SCH (05:48)
[2023-03-08 06:32] LABS: Basophils # (auto) 0.12 K/uL (0.00-0.20); Basophils % (auto) 0.8 %; Eosinophils # (auto) 0.06 K/uL (0.00-0.50); Eosinophils % (auto) 0.4 %; Hematocrit (blood only) 37.7 % (37.0-47.0); Hemoglobin 12.2 g/dl (12.0-16.0); Immature Granulocytes # (auto) 0.14 K/uL (0.01-0.20); Immature Granulocytes % (auto) 0.9 %; Lymphocytes # (auto) 1.98 K/uL (1.20-3.40); Lymphocytes % (auto) 12.9 %; Mean Corpuscular Hemoglobin 32.4 pg (25.0-34.0); Mean Corpuscular Hgb Conc 32.4 g/dL (32.0-36.0); Mean Corpuscular Volume 100.3 fL (80.0-100.0); Mean Platelet Volume 9.8 fL (9.4-12.4); Monocytes # (auto) 1.79 K/uL (0.11-0.59); Monocytes % (auto) 11.7 %; Neutrophils # (auto) 11.24 K/uL (1.40-6.50); Neutrophils % (auto) 73.3 %; Platelet Count 446 K/uL (130-400); RDW Coefficient of Variation 14.6 % (11.5-14.5); RDW Standard Deviation 52.4 fL (36.4-46.3); Red Blood Count 3.76 M/uL (4.20-5.40); White Blood Count 15.33 K/ul (4.8-10.8)
[2023-03-08 06:54] LABS: BUN Creatinine Ratio 24.2 (10-20); Calcium 8.2 mg/dl (8.6-10.3); Creatinine Clr Calc Pharmacy 69.5 ml/min; Est GFR (African American) 98.1 ml/min; Est GFR (Non-African American) 84.6 ml/min; Potassium 3.5 mmol/L (3.5-5.1)
[2023-03-08] MEDS: FAMOTIDINE 20 MG TAB PO SCH ×2 (07:55→20:20)
[2023-03-08] MEDS: VERAPAMIL HCL 240 MG TABCR PO SCH ×2 (07:55→20:20)
[2023-03-08] MEDS: cephALEXin 500 MG CAP PO SCH (07:56)
[2023-03-08] MEDS: CHOLECALCIFEROL 1,000 UNITS 25 MCG TAB PO SCH (07:56)
[2023-03-08] MEDS: CYANOCOBALAMIN (B-12) 500 MCG TABLET PO SCH (07:57)
[2023-03-08] MEDS: MAGNESIUM OXIDE 400 MG TAB PO SCH (07:57)
[2023-03-08] MEDS: allopurinoL 300 MG TAB PO SCH ×2 (07:57→20:20)
[2023-03-08] MEDS: PANTOprazole 40 MG TAB PO SCH (07:58)
[2023-03-08] MEDS: FLUTICASONE/VILANTEROL 100/25MCG 14 PUFFS/INHALER INH SCH (07:58)
[2023-03-08] MEDS: SPIRONOLACTONE 12.5 MG TAB PO SCH (07:59)
[2023-03-08] MEDS: ROSUVASTATIN CALCIUM 5 MG TAB PO SCH (07:59)
--- NOTE | 2023-03-08 08:38 | XRay Report ---
XR chest 1V portable HISTORY: Shortness of breath. rule out pneumonia COMPARISON: Chest 02/24/2023. FINDINGS: There are low lung volumes. No pneumothorax. The heart remains enlarged. There is a left-si ded dual-chamber pacemaker again noted. There are poststernotomy changes. A few small right basilar l inear densities favor subsegmental atelectasis or scarring. Progressive density within the left later al lung base. IMPRESSION: 1. Progressive density within the left lateral lung base which could represent atelectasis or a devel oping pneumonia. 2. Low lung volumes. 3. Stable cardiomegaly. ACT 112: Negative or not required by law. Electronically signed by: Jerome Segura M.D. 03/08/2023 8:35 AM
[2023-03-08] MEDS ORDERED: SODIUM CHLOR 7% 4 ML NEB NEB SCH (09:15)
[2023-03-08] MEDS: cefTRIAXone SODIUM 2,000 MG in DEXTROSE 5 % MINI-B 50 ML IV SCH (10:30)
[2023-03-08] MEDS: DOXYCYCLINE HYCLATE 100 MG CAP PO SCH ×2 (10:30→20:21)
[2023-03-08] MEDS: ALBUT/IPRATROP 3MG/0.5MG NEB 3 ML VIAL NEB SCH ×2 (10:39→20:30)
--- NOTE | 2023-03-08 14:00 | Hospitalist Progress Note ---
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 Left Nares epistaxis History of epistaxis in the past as well Intermittent epistaxis noted on March 05, 2023 On March 06atient started to have anterior specializes with profuse bleeding Status post Afrin and nasal packing Discussed with Dr. Burns from ENT; antibiotics while on pack in place, nasal pray qid, afrin tid x 3 days, txa nebs prn. Follow-up in 3 to 5 days for packing removal. Coordinated with bilingual case manager; patient will need to follow-up in the ED for the removal of Rhino Rocket Left-sided pneumonia Dyspnea on Exertion Possible asthma exacerbation Acute hypoxic respiratory failure Patient presented with shortness of breath and acute hypoxic respiratory failure Per ED provider, witnessed pt's O2 sat drop to the 80s with ambulation to the bathroom CT chest obtained - no PE - + hiatal hernia, and atelectasis hs-troponin wnl, EKG with no acute changes BNP 41 Last echo in August 2022 noted an enlarged right ventricle with Harry's sign suggestive of PE at that time. Repeat echo obtained -LV systolic function is normal. EF 55 to 60%. RV is normal size. RV systolic function is qualitatively normal. Mild mitral regurg. Mild tricuspid regurg. Doppler findings do not suggest pulmonary hypertension. Pulmonary med. consulted for further recommendations - started bronchodilators for poss. asthma. Pt 's breathing seems to be improving. Currently she is requiring 1 L of oxygen by nasal cannula. X-ray from March 08, 2023 personally reviewed; developing pneumonia on left lower lung field Given the finding on the chest x-ray. The likely cause is aspiration from epistaxis. Started on ceftriaxone and doxycycline. DuoNebs every 12 hours Incentive spirometry and flutter valve for airway clearance. Generalized Weakness Fatigue Uncertain etiology, acute in onset Pt saw her PCP for this about 2 weeks ago- noted she had just been weaned off of prednisone that she was on daily for 4 months (pt reports hx of gout) Symptoms possibly related to her dyspnea on exertion process Hx of bilateral pulmonary emboli Noted during last admission in August 2022 Currently on Eliquis 5mg BID, states has been taking it as prescribed H/o VTE in the past so likely needs lifelong anticoagulation Given her recent episode of epistaxis; will need to follow-up with PCP to discuss further. GERD/Hiatal hernia Continue pantoprazole, famotidine Tachy-chintan syndrome/Ischemic cardiomyopathy s/p dual chamber pacemaker. Continue diltiazem CAD in [place] artery Continue statin. Aspirin currently on hold. Hypertension - at home on atenolol, diltiazem Cardiology consulted; recommended to continue verapamil to 240 mg twice per day. Discontinue atenolol. Plan for spironolactone 12.5 3 days/week Hypothyroidism continue levothyroxine Gout continue home allopurinol HLD continue home statin Diet: HH DVT Ppx: On hold due to bleeding Code status: FULL Dispo: Patient has recurrent epistaxis requiring Rhino Rocket to be placed on left Nares. Requires close monitoring for recurrence. Also found to have left- sided pneumonia; on IV antibiotic. Needs close monitoring for respiratory status. Time spent evaluating patient, direct bedside care, chart review, placing orders, interpretation of diagnostic studies, discussion with consultants, patient, and family members, as well as other required patient management activities is 50 minutes Please note the above document was generated using voice recognition software. It may contain grammatical, syntax or spelling errors. Any formal questions or concerns about the content, text or information contained within the body of this dictation should be directly addressed to the provider for clarification Admission and Anticipated Discharge Date Admission Date: February 24, 2023 Subjective Patient seen and examined at bedside. Still few drops of bleeding from the nose. Reports some shortness of breath. No other complaints. Review of Systems Review of Systems: All systems reviewed & are unremarkable except as noted in Subjective Physical Exam Physical Exam: General- oriented x 3, appears tired Eyes- anicteric Nose-packing in place in left nostril Neck- no JVD Lungs- clear breath sounds bilaterally, no rales/wheezes Heart- normal rate, regular rhythm; no murmurs Abdomen- normal bowel sounds, nondistended, soft, nontender Extremities- no pretibial edema, no calf tenderness Neuro- alert, oriented x 3; no gross focal neurologic deficits Skin- warm & dry Results & Data Results & Data Vital Signs (Past 12 Hours) Vital Signs Temp Pulse Pulse Resp BP BP Pulse Ox 03/08/23 11:36 36.9 C 91 H 20 101/68 92 03/08/23 10:39 98 H 16 93 03/08/23 08:31 110 H 03/08/23 07:55 36.4 C L 102 H 20 129/77 93 03/08/23 03:31 36.8 C 105 H 20 132/73 91 O2 Del Method 03/08/23 11:36 Room Air 03/08/23 10:39 Room Air 03/08/23 08:31 03/08/23 07:55 Room Air 03/08/23 03:31 Room Air Laboratory Results Laboratory Results WBC 15.33 K/ul (4.8-10.8) H 03/08/23 05:28 RBC 3.76 M/uL (4.20-5.40) L 03/08/23 05:28 Hgb 12.2 g/dl (12.0-16.0) 03/08/23 05:28 Hct 37.7 % (37.0-47.0) 03/08/23 05:28 MCV 100.3 fL (80.0-100.0) H 03/08/23 05:28 MCH 32.4 pg (25.0-34.0) 03/08/23 05:28 MCHC 32.4 g/dL (32.0-36.0) 03/08/23 05:28 RDW Std Deviation 52.4 fL (36.4-46.3) H 03/08/23 05:28 RDW Coeff of Agnes 14.6 % (11.5-14.5) H 03/08/23 05:28 Plt Count 446 K/uL (130-400) H 03/08/23 05:28 MPV 9.8 fL (9.4-12.4) 03/08/23 05:28 Immature Gran % (Auto) 0.9 % 03/08/23 05:28 Neut % (Auto) 73.3 % 03/08/23 05:28 Lymph % (Auto) 12.9 % 03/08/23 05:28 Wilcox % (Auto) 11.7 % 03/08/23 05:28 Eos % (Auto) 0.4 % 03/08/23 05:28 Baso % (Auto) 0.8 % 03/08/23 05:28 Neut # (Auto) 11.24 K/uL (1.40-6.50) H 03/08/23 05:28 Lymph # (Auto) 1.98 K/uL (1.20-3.40) 03/08/23 05:28 Wilcox # (Auto) 1.79 K/uL (0.11-0.59) H 03/08/23 05:28 Eos # (Auto) 0.06 K/uL (0.00-0.50) 03/08/23 05:28 Baso # (Auto) 0.12 K/uL (0.00-0.20) 03/08/23 05:28 Immature Gran # (Auto) 0.14 K/uL (0.01-0.20) 03/08/23 05:28 Absolute Nucleated RBC 0.02 K/uL (0.00-0.12) 02/28/23 04:35 Nucleated RBC % (auto) 0.2 % 02/28/23 04:35 PT 11.4 Seconds (9.0-12.0) 02/24/23 09:47 INR 1.0 (0.9-1.1) 02/24/23 09:47 APTT 29 Seconds (21-31) 03/06/23 06:07 PTT Ratio 1.0 03/06/23 06:07 VBG pH 7.33 (7.36-7.41) L 02/24/23 13:00 VBG pCO2 49 mmHg (38-50) 02/24/23 13:00 VBG pO2 32 mmHg 02/24/23 13:00 VBG HCO3 26 mmol/L 02/24/23 13:00 VBG O2 Saturation < 60.0 % 02/24/23 13:00 VBG Base Excess -0.6 mEq/L 02/24/23 13:00 Sodium 139 mmol/L (136-145) 03/08/23 05:28 Potassium 3.5 mmol/L (3.5-5.1) 03/08/23 05:28 Chloride 106 mmol/L (98-107) 03/08/23 05:28 Carbon Dioxide 24 mmol/L (21-32) 03/08/23 05:28 Anion Gap 9 (3-11) 03/08/23 05:28 BUN 16 mg/dl (6-23) 03/08/23 05:28 Creatinine 0.66 mg/dl (0.6-1.2) 03/08/23 05:28 Est Cr Clr Drug Dosing 69.5 ml/min 03/08/23 05:28 Est GFR ( Amer) 98.1 ml/min 03/08/23 05:28 Est GFR (Non-Af Amer) 84.6 ml/min 03/08/23 05:28 BUN/Creatinine Ratio 24.2 (10-20) H 03/08/23 05:28 Glucose 109 mg/dl (70-99(Fasting)) H 03/08/23 05:28 Estimat Average Glucose 123 mg/dl 02/25/23 05:50 Hemoglobin A1c 5.9 % (4.5-5.6) H 02/25/23 05:50 Calcium 8.2 mg/dl (8.6-10.3) L 03/08/23 05:28 Ionized Calcium 0.98 mmol/L (1.12-1.32) L 02/25/23 05:50 Phosphorus 3.7 mg/dl (2.5-4.9) 02/28/23 04:35 Magnesium 2.0 mg/dl (1.7-2.4) 03/06/23 06:07 Total Bilirubin 0.3 mg/dl (0.2-1.0) 02/25/23 05:50 AST 5 U/L (13-39) L 02/25/23 05:50 ALT 9 U/L (7-52) 02/25/23 05:50 Alkaline Phosphatase 82 U/L (34-104) 02/25/23 05:50 Troponin I High Sens 4.3 pg/ml (0-14) 02/24/23 09:47 B-Natriuretic Peptide 42 pg/ml (0-100) 02/24/23 13:00 Total Protein 4.7 gm/dl (6.0-8.3) L 02/25/23 05:50 Albumin 2.7 gm/dl (3.4-5.0) L 02/25/23 05:50 Globulin 2.0 gm/dl (2.5-4.0) L 02/25/23 05:50 Albumin/Globulin Ratio 1.4 (0.9-2) 02/25/23 05:50 Vitamin B12 621 pg/ml (180-914) 02/24/23 09:47 TSH 1.488 uIu/ml (0.300-4.500) 02/24/23 09:47 Cortisol AM Sample 17.52 mcg/dl (6.2-22.6) 03/02/23 07:04 Urine Color Yellow 02/24/23 12:05 Urine Appearance Slightly Cloudy (Clear) 02/24/23 12:05 Urine pH 6.0 (4.5-7.5) 02/24/23 12:05 Ur Specific [place] >= 1.030 (1.000-1.030) 02/24/23 12:05 Urine Protein 1+ (Negative) H 02/24/23 12:05 Urine Glucose (UA) Negative (Negative) 02/24/23 12:05 Urine Ketones Negative (Negative) 02/24/23 12:05 Urine Blood Negative (Negative) 02/24/23 12:05 Urine Nitrite Negative (Negative) 02/24/23 12:05 Urine Bilirubin Negative (Negative) 02/24/23 12:05 Urine Urobilinogen Negative (Negative) 02/24/23 12:05 Ur Leukocyte Esterase Negative (Negative) 02/24/23 12:05 Urine RBC 0-4 /hpf (0-4) 02/24/23 12:05 Urine WBC 0-5 /hpf (0-5) 02/24/23 12:05 Ur Epithelial Cells >30 /lpf (0-5) H 02/24/23 12:05 Urine Bacteria 1+ (Negative) H 02/24/23 12:05 Adenovirus (PCR) Not Detected (NotDetected) 02/24/23 10:49 B. pertussis DNA (PCR) Not Detected (NotDetected) 02/24/23 10:49 B.parapertussis DNA PCR Not Detected (NotDetected) 02/24/23 10:49 C. pneumoniae DNA (PCR) Not Detected (NotDetected) 02/24/23 10:49 Coronavirus OC43 (PCR) Not Detected (NotDetected) 02/24/23 10:49 Coronavirus HKU1 (PCR) Not Detected (NotDetected) 02/24/23 10:49 Coronavirus 229E (PCR) Not Detected (NotDetected) 02/24/23 10:49 SARS-CoV-2 (PCR) NEGATIVE (Negative) 03/04/23 Unknown Coronavirus NL63 (PCR) Not Detected (NotDetected) 02/24/23 10:49 Human Metapneumovir PCR Not Detected (NotDetected) 02/24/23 10:49 Influenza Type A (PCR) Not Detected (NotDetected) 02/24/23 10:49 Influenza Type B (PCR) Not Detected (NotDetected) 02/24/23 10:49 M. pneumoniae (PCR) Not Detected (NotDetected) 02/24/23 10:49 Parainfluenza 1 (PCR) Not Detected (NotDetected) 02/24/23 10:49 Parainfluenza 2 (PCR) Not Detected (NotDetected) 02/24/23 10:49 Parainfluenza 3 (PCR) Not Detected (NotDetected) 02/24/23 10:49 Parainfluenza 4 (PCR) Not Detected (NotDetected) 02/24/23 10:49 RSV (PCR) Not Detected (NotDetected) 02/24/23 10:49 Entero/Rhino (PCR) Not Detected (NotDetected) 02/24/23 10:49 SARS-CoV-2, RNA, NAAT NEGATIVE (NEGATIVE) 02/28/23 18:12 Blood Type O Positive 03/06/23 06:07 Antibody Screen NEGATIVE 03/06/23 06:[address] 02/24/23 10:44 CT head/brain wo con CLINICAL HISTORY: weakness Technique: Contiguous axial CT images of the head were acquired from the base of the skull to the vertex without intravenous contrast administration. Images were viewed in brain, subdural and bone windows. Automated dose lowering techniques and/or adjustment according to patient size were utilized for this exam. Comparison: Comparison is made to CT head 01/03/2021 Findings: The ventricles, basal cisterns, and cerebral sulci are normal. There is no acute intracranial hemorrhage or evidence of acute territorial infarction. Neither mass effect, shift of the midline structures, nor abnormal extra-axial fluid collections are shown. Imaged portions of the paranasal sinuses and mastoid air cells are clear. The orbits appear normal. There are no acute fractures of the calvaria or scalp swelling. Impression: No acute intracranial hemorrhage, no evidence of acute territorial infarction or other acute intracranial disease process. ACT 112: Negative or not required by law. Electronically signed by: Rafael Solitario M.D. 02/24/2023 11:21 AM Chest CTA 02/24/23 13:07 CT angio chest PE protocol CLINICAL HISTORY: PE TECHNIQUE: Multidetector row helical CT of the chest was performed with angiographic protocol. Coronal and sagittal reformations were obtained. Coronal and sagittal MIPS were obtained from the axial data set and were submitted for review. Automated dose lowering techniques and/or adjustment according to patient size were utilized for this exam. CT DOSE: 572.82 mGy.cm Comparison: Comparison is made to CTA chest 09/02/2022 FINDINGS: Lungs and pleura: Atelectasis versus scarring is seen in the dependent portions of the lungs. Heart and pericardium: Cardiomegaly is seen with biatrial enlargement. Vessels: Evaluation for pulmonary embolism is limited due to patient motion. No evidence of central, lobar, or segmental embolus. Moderate atherosclerotic disease is seen. Mediastinum and milady: Unremarkable. Chest wall and lower neck: Unremarkable. Abdomen: Large hiatal hernia is seen. There is a left renal cyst measuring 18 mm in diameter. Bones: Degenerative changes in the thoracic spine. IMPRESSION: No acute abnormality and in particular no evidence of pulmonary embolus. Atelectasis is seen with a large hiatal hernia. Mild cardiomegaly is again seen. ACT 112: Negative or not required by law. Electronically signed by: Rafael Solitario M.D. 02/24/2023 2:35 PM Chest X-Ray 03/08/23 08:07 XR chest 1V portable HISTORY: Shortness of breath. rule out pneumonia COMPARISON: Chest 02/24/2023. FINDINGS: There are low lung volumes. No pneumothorax. The heart remains enlarged. There is a left-sided dual-chamber pacemaker again noted. There are poststernotomy changes. A few small right basilar linear densities favor subsegmental atelectasis or scarring. Progressive density within the left lateral lung base. IMPRESSION: 1. Progressive density within the left lateral lung base which could represent atelectasis or a developing pneumonia. 2. Low lung volumes. 3. Stable cardiomegaly. ACT 112: Negative or not required by law. Electronically signed by: Jerome Segura M.D. 03/08/2023 8:35 AM
[2023-03-09] MEDS: SODIUM CHLORIDE 0.65% NA SOLN 45 ML (OCEAN) SCH ×4 (02:27→18:27)
[2023-03-09] MEDS: LEVOTHYROXINE SODIUM 137 MCG TABLET PO SCH (05:40)
[2023-03-09] MEDS: OXYMETAZOLINE 0.05% 30 ML BTL SCH ×3 (05:40→20:17)
[2023-03-09] MEDS: DOXYCYCLINE HYCLATE 100 MG CAP PO SCH ×2 (05:40→18:06)
[2023-03-09 06:28] LABS: Basophils # (auto) 0.11 K/uL (0.00-0.20); Basophils % (auto) 0.8 %; Eosinophils # (auto) 0.15 K/uL (0.00-0.50); Eosinophils % (auto) 1.1 %; Hematocrit (blood only) 37.6 % (37.0-47.0); Hemoglobin 11.8 g/dl (12.0-16.0); Immature Granulocytes % (auto) 0.8 %; Lymphocytes # (auto) 2.46 K/uL (1.20-3.40); Lymphocytes % (auto) 18.5 %; Mean Corpuscular Hemoglobin 31.6 pg (25.0-34.0); Mean Corpuscular Hgb Conc 31.4 g/dL (32.0-36.0); Mean Corpuscular Volume 100.5 fL (80.0-100.0); Mean Platelet Volume 9.4 fL (9.4-12.4); Neutrophils # (auto) 8.87 K/uL (1.40-6.50); Neutrophils % (auto) 66.8 %; Platelet Count 412 K/uL (130-400); RDW Coefficient of Variation 14.5 % (11.5-14.5); RDW Standard Deviation 53.4 fL (36.4-46.3); Red Blood Count 3.74 M/uL (4.20-5.40); White Blood Count 13.29 K/ul (4.8-10.8)
[2023-03-09 06:50] LABS: BUN Creatinine Ratio 20.7 (10-20); Calcium 8.4 mg/dl (8.6-10.3); Creatinine Clr Calc Pharmacy 55.8 ml/min; Est GFR (African American) 79.4 ml/min; Est GFR (Non-African American) 68.5 ml/min; Potassium 3.3 mmol/L (3.5-5.1)
[2023-03-09] MEDS: ALBUT/IPRATROP 3MG/0.5MG NEB 3 ML VIAL NEB SCH ×2 (07:43→19:00)
[2023-03-09] MEDS: PROMETHAZINE HCL 6.25 MG in SODIUM CHLORIDE 0.9% 50 ML IV PRN (07:56)
[2023-03-09] MEDS: VERAPAMIL HCL 240 MG TABCR PO SCH ×2 (08:18→20:17)
[2023-03-09] MEDS: MAGNESIUM OXIDE 400 MG TAB PO SCH (08:18)
[2023-03-09] MEDS: PANTOprazole 40 MG TAB PO SCH (08:18)
[2023-03-09] MEDS: FAMOTIDINE 20 MG TAB PO SCH ×2 (08:18→20:16)
[2023-03-09] MEDS: CYANOCOBALAMIN (B-12) 500 MCG TABLET PO SCH (08:19)
[2023-03-09] MEDS: allopurinoL 300 MG TAB PO SCH ×2 (08:19→20:16)
[2023-03-09] MEDS: ROSUVASTATIN CALCIUM 5 MG TAB PO SCH (08:19)
[2023-03-09] MEDS: CHOLECALCIFEROL 1,000 UNITS 25 MCG TAB PO SCH (08:20)
[2023-03-09] MEDS: FLUTICASONE/VILANTEROL 100/25MCG 14 PUFFS/INHALER INH SCH (08:20)
[2023-03-09] MEDS: cefTRIAXone SODIUM 2,000 MG in DEXTROSE 5 % MINI-B 50 ML IV SCH (09:45)
--- NOTE | 2023-03-09 12:41 | Hospitalist Progress Note ---
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 Left Nares epistaxis History of epistaxis in the past as well Intermittent epistaxis noted on March 05, 2023 On March 06atient started to have anterior specializes with profuse bleeding Status post Afrin and nasal packing Discussed with Dr. Burns from ENT; antibiotics while on pack in place, nasal pray qid, afrin tid x 3 days, txa nebs prn. Follow-up in 3 to 5 days for packing removal. Coordinated with protective services case worker; patient will need to follow-up in the ED for the removal of [place] Left-sided pneumonia Dyspnea on Exertion Possible asthma exacerbation Acute hypoxic respiratory failure Patient presented with shortness of breath and acute hypoxic respiratory failure Per ED provider, witnessed pt's O2 sat drop to the 80s with ambulation to the bathroom CT chest obtained - no PE - + hiatal hernia, and atelectasis hs-troponin wnl, EKG with no acute changes BNP 41 Last echo in August 2022 noted an enlarged right ventricle with Harry's sign suggestive of PE at that time. Repeat echo obtained -LV systolic function is normal. EF 55 to 60%. RV is normal size. RV systolic function is qualitatively normal. Mild mitral regurg. Mild tricuspid regurg. Doppler findings do not suggest pulmonary hypertension. Pulmonary med. consulted for further recommendations - started bronchodilators for poss. asthma. Pt 's breathing seems to be improving. Currently she is requiring 1 L of oxygen by nasal cannula. X-ray from March 08, 2023 personally reviewed; developing pneumonia on left lower lung field Given the finding on the chest x-ray. The likely cause is aspiration from epistaxis. Started on ceftriaxone and doxycycline. Continue for now. DuoNebs every 12 hours Incentive spirometry and flutter valve for airway clearance. Generalized Weakness Fatigue Uncertain etiology, acute in onset Pt saw her PCP for this about 2 weeks ago- noted she had just been weaned off of prednisone that she was on daily for 4 months (pt reports hx of gout) Symptoms possibly related to her dyspnea on exertion process Hx of bilateral pulmonary emboli Noted during last admission in August 2022 Currently on Eliquis 5mg BID, states has been taking it as prescribed H/o VTE in the past so likely needs lifelong anticoagulation Given her recent episode of epistaxis; will need to follow-up with PCP to discuss further. GERD/Hiatal hernia Continue pantoprazole, famotidine Tachy-chintan syndrome/Ischemic cardiomyopathy s/p dual chamber pacemaker. Continue diltiazem CAD in [place] artery Continue statin. Aspirin currently on hold. Hypertension - at home on atenolol, diltiazem Cardiology consulted; recommended to continue verapamil to 240 mg twice per day. Discontinue atenolol. Plan for spironolactone 12.5 3 days/week Hypothyroidism continue levothyroxine Gout continue home allopurinol HLD continue home statin Diet: HH DVT Ppx: On hold due to bleeding Code status: FULL Dispo: Patient is admitted for pneumonia requiring IV antibiotics. She also has epistaxis requiring closer monitoring for recurrence. Time spent evaluating patient, direct bedside care, chart review, placing ord ers, interpretation of diagnostic studies, discussion with consultants, patient, and family members, as well as other required patient management activities is 50 minutes Please note the above document was generated using voice recognition software. It may contain grammatical, syntax or spelling errors. Any formal questions or concerns about the content, text or information contained within the body of this dictation should be directly addressed to the provider for clarification Admission and Anticipated Discharge Date Admission Date: February 24, 2023 Subjective Patient seen and examined at bedside. No longer bleeding. Reports that shortness of breath has improved. Review of Systems Review of Systems: All systems reviewed & are unremarkable except as noted in Subjective Physical Exam Physical Exam: General- oriented x 3, appears tired Eyes- anicteric Nose-packing in place in left nostril Neck- no JVD Lungs- clear breath sounds bilaterally, no rales/wheezes Heart- normal rate, regular rhythm; no murmurs Abdomen- normal bowel sounds, nondistended, soft, nontender Extremities- no pretibial edema, no calf tenderness Neuro- alert, oriented x 3; no gross focal neurologic deficits Skin- warm & dry Results & Data Results & Data Vital Signs (Past 12 Hours) Vital Signs Temp Pulse Pulse Resp BP BP Pulse Ox 03/09/23 11:28 36.5 C 95 H 18 116/71 92 03/09/23 07:51 03/09/23 07:34 36.6 C 95 H 18 127/73 96 03/09/23 05:59 90 03/09/23 03:50 36.3 C L 97 H 16 126/73 95 O2 Del Method O2 Flow Rate 03/09/23 11:28 Room Air 03/09/23 07:51 Room Air 03/09/23 07:34 Nasal Cannula 2 03/09/23 05:59 03/09/23 03:50 Oxymask 2 Laboratory Results Laboratory Results WBC 13.29 K/ul (4.8-10.8) H 03/09/23 06:04 RBC 3.74 M/uL (4.20-5.40) L 03/09/23 06:04 Hgb 11.8 g/dl (12.0-16.0) L 03/09/23 06:04 Hct 37.6 % (37.0-47.0) 03/09/23 06:04 MCV 100.5 fL (80.0-100.0) H 03/09/23 06:04 MCH 31.6 pg (25.0-34.0) 03/09/23 06:04 MCHC 31.4 g/dL (32.0-36.0) L 03/09/23 06:04 RDW Std Deviation 53.4 fL (36.4-46.3) H 03/09/23 06:04 RDW Coeff of Agnes 14.5 % (11.5-14.5) 03/09/23 06:04 Plt Count 412 K/uL (130-400) H 03/09/23 06:04 MPV 9.4 fL (9.4-12.4) 03/09/23 06:04 Immature Gran % (Auto) 0.8 % 03/09/23 06:04 Neut % (Auto) 66.8 % 03/09/23 06:04 Lymph % (Auto) 18.5 % 03/09/23 06:04 [place] % (Auto) 12.0 % 03/09/23 06:04 Eos % (Auto) 1.1 % 03/09/23 06:04 Baso % (Auto) 0.8 % 03/09/23 06:04 Neut # (Auto) 8.87 K/uL (1.40-6.50) H 03/09/23 06:04 Lymph # (Auto) 2.46 K/uL (1.20-3.40) 03/09/23 06:04 [place] # (Auto) 1.60 K/uL (0.11-0.59) H 03/09/23 06:04 Eos # (Auto) 0.15 K/uL (0.00-0.50) 03/09/23 06:04 Baso # (Auto) 0.11 K/uL (0.00-0.20) 03/09/23 06:04 Immature Gran # (Auto) 0.10 K/uL (0.01-0.20) 03/09/23 06:04 Absolute Nucleated RBC 0.02 K/uL (0.00-0.12) 02/28/23 04:35 Nucleated RBC % (auto) 0.2 % 02/28/23 04:35 PT 11.4 Seconds (9.0-12.0) 02/24/23 09:47 INR 1.0 (0.9-1.1) 02/24/23 09:47 APTT 29 Seconds (21-31) 03/06/23 06:07 PTT Ratio 1.0 03/06/23 06:07 VBG pH 7.33 (7.36-7.41) L 02/24/23 13:00 VBG pCO2 49 mmHg (38-50) 02/24/23 13:00 VBG pO2 32 mmHg 02/24/23 13:00 VBG HCO3 26 mmol/L 02/24/23 13:00 VBG O2 Saturation < 60.0 % 02/24/23 13:00 VBG Base Excess -0.6 mEq/L 02/24/23 13:00 Sodium 141 mmol/L (136-145) 03/09/23 06:04 Potassium 3.3 mmol/L (3.5-5.1) L 03/09/23 06:04 Chloride 108 mmol/L (98-107) H 03/09/23 06:04 Carbon Dioxide 24 mmol/L (21-32) 03/09/23 06:04 Anion Gap 9 (3-11) 03/09/23 06:04 BUN 17 mg/dl (6-23) 03/09/23 06:04 Creatinine 0.82 mg/dl (0.6-1.2) 03/09/23 06:04 Est Cr Clr Drug Dosing 55.8 ml/min 03/09/23 06:04 Est GFR ( Amer) 79.4 ml/min 03/09/23 06:04 Est GFR (Non-Af Amer) 68.5 ml/min 03/09/23 06:04 BUN/Creatinine Ratio 20.7 (10-20) H 03/09/23 06:04 Glucose 104 mg/dl (70-99(Fasting)) H 03/09/23 06:04 Estimat Average Glucose 123 mg/dl 02/25/23 05:50 Hemoglobin A1c 5.9 % (4.5-5.6) H 02/25/23 05:50 Calcium 8.4 mg/dl (8.6-10.3) L 03/09/23 06:04 Ionized Calcium 0.98 mmol/L (1.12-1.32) L 02/25/23 05:50 Phosphorus 3.7 mg/dl (2.5-4.9) 02/28/23 04:35 Magnesium 2.0 mg/dl (1.7-2.4) 03/06/23 06:07 Total Bilirubin 0.3 mg/dl (0.2-1.0) 02/25/23 05:50 AST 5 U/L (13-39) L 02/25/23 05:50 ALT 9 U/L (7-52) 02/25/23 05:50 Alkaline Phosphatase 82 U/L (34-104) 02/25/23 05:50 Troponin I High Sens 4.3 pg/ml (0-14) 02/24/23 09:47 B-Natriuretic Peptide 42 pg/ml (0-100) 02/24/23 13:00 Total Protein 4.7 gm/dl (6.0-8.3) L 02/25/23 05:50 Albumin 2.7 gm/dl (3.4-5.0) L 02/25/23 05:50 Globulin 2.0 gm/dl (2.5-4.0) L 02/25/23 05:50 Albumin/Globulin Ratio 1.4 (0.9-2) 02/25/23 05:50 Vitamin B12 621 pg/ml (180-914) 02/24/23 09:47 TSH 1.488 uIu/ml (0.300-4.500) 02/24/23 09:47 Cortisol AM Sample 17.52 mcg/dl (6.2-22.6) 03/02/23 07:04 Urine Color Yellow 02/24/23 12:05 Urine Appearance Slightly Cloudy (Clear) 02/24/23 12:05 Urine pH 6.0 (4.5-7.5) 02/24/23 12:05 Ur Specific [place] >= 1.030 (1.000-1.030) 02/24/23 12:05 Urine Protein 1+ (Negative) H 02/24/23 12:05 Urine Glucose (UA) Negative (Negative) 02/24/23 12:05 Urine Ketones Negative (Negative) 02/24/23 12:05 Urine Blood Negative (Negative) 02/24/23 12:05 Urine Nitrite Negative (Negative) 02/24/23 12:05 Urine Bilirubin Negative (Negative) 02/24/23 12:05 Urine Urobilinogen Negative (Negative) 02/24/23 12:05 Ur Leukocyte Esterase Negative (Negative) 02/24/23 12:05 Urine RBC 0-4 /hpf (0-4) 02/24/23 12:05 Urine WBC 0-5 /hpf (0-5) 02/24/23 12:05 Ur Epithelial Cells >30 /lpf (0-5) H 02/24/23 12:05 Urine Bacteria 1+ (Negative) H 02/24/23 12:05 Adenovirus (PCR) Not Detected (NotDetected) 02/24/23 10:49 B. pertussis DNA (PCR) Not Detected (NotDetected) 02/24/23 10:49 B.parapertussis DNA PCR Not Detected (NotDetected) 02/24/23 10:49 C. pneumoniae DNA (PCR) Not Detected (NotDetected) 02/24/23 10:49 Coronavirus OC43 (PCR) Not Detected (NotDetected) 02/24/23 10:49 Coronavirus HKU1 (PCR) Not Detected (NotDetected) 02/24/23 10:49 Coronavirus 229E (PCR) Not Detected (NotDetected) 02/24/23 10:49 SARS-CoV-2 (PCR) NEGATIVE (Negative) 03/04/23 Unknown Coronavirus NL63 (PCR) Not Detected (NotDetected) 02/24/23 10:49 Human Metapneumovir PCR Not Detected (NotDetected) 02/24/23 10:49 Influenza Type A (PCR) Not Detected (NotDetected) 02/24/23 10:49 Influenza Type B (PCR) Not Detected (NotDetected) 02/24/23 10:49 M. pneumoniae (PCR) Not Detected (NotDetected) 02/24/23 10:49 Parainfluenza 1 (PCR) Not Detected (NotDetected) 02/24/23 10:49 Parainfluenza 2 (PCR) Not Detected (NotDetected) 02/24/23 10:49 Parainfluenza 3 (PCR) Not Detected (NotDetected) 02/24/23 10:49 Parainfluenza 4 (PCR) Not Detected (NotDetected) 02/24/23 10:49 RSV (PCR) Not Detected (NotDetected) 02/24/23 10:49 Entero/Rhino (PCR) Not Detected (NotDetected) 02/24/23 10:49 SARS-CoV-2, RNA, NAAT NEGATIVE (NEGATIVE) 02/28/23 18:12 Blood Type O Positive 03/06/23 06:07 Antibody Screen NEGATIVE 03/06/23 06:[address] 02/24/23 10:44 CT head/brain wo con CLINICAL HISTORY: weakness Technique: Contiguous axial CT images of the head were acquired from the base of the skull to the vertex without intravenous contrast administration. Images were viewed in brain, subdural and bone windows. Automated dose lowering techniques and/or adjustment according to patient size were utilized for this exam. Comparison: Comparison is made to CT head 01/03/2021 Findings: The ventricles, basal cisterns, and cerebral sulci are normal. There is no acute intracranial hemorrhage or evidence of acute territorial infarction. Neither mass effect, shift of the midline structures, nor abnormal extra-axial fluid collections are shown. Imaged portions of the paranasal sinuses and mastoid air cells are clear. The o rbits appear normal. There are no acute fractures of the calvaria or scalp swelling. Impression: No acute intracranial hemorrhage, no evidence of acute territorial infarction or other acute intracranial disease process. ACT 112: Negative or not required by law. Electronically signed by: Rafael Solitario M.D. 02/24/2023 11:21 AM Chest CTA 02/24/23 13:07 CT angio chest PE protocol CLINICAL HISTORY: PE TECHNIQUE: Multidetector row helical CT of the chest was performed with angiographic protocol. Coronal and sagittal reformations were obtained. Coronal and sagittal MIPS were obtained from the axial data set and were submitted for review. Automated dose lowering techniques and/or adjustment according to patient size were utilized for this exam. CT DOSE: 572.82 mGy.cm Comparison: Comparison is made to CTA chest 09/02/2022 FINDINGS: Lungs and pleura: Atelectasis versus scarring is seen in the dependent portions of the lungs. Heart and pericardium: Cardiomegaly is seen with biatrial enlargement. Vessels: Evaluation for pulmonary embolism is limited due to patient motion. No evidence of central, lobar, or segmental embolus. Moderate atherosclerotic disease is seen. Mediastinum and milady: Unremarkable. Chest wall and lower neck: Unremarkable. Abdomen: Large hiatal hernia is seen. There is a left renal cyst measuring 18 mm in diameter. Bones: Degenerative changes in the thoracic spine. IMPRESSION: No acute abnormality and in particular no evidence of pulmonary embolus. Atelectasis is seen with a large hiatal hernia. Mild cardiomegaly is again seen. ACT 112: Negative or not required by law. Electronically signed by: Rafael Solitario M.D. 02/24/2023 2:35 PM Chest X-Ray 03/08/23 08:07 XR chest 1V portable HISTORY: Shortness of breath. rule out pneumonia COMPARISON: Chest 02/24/2023. FINDINGS: There are low lung volumes. No pneumothorax. The heart remains enlarged. There is a left-sided dual-chamber pacemaker again noted. There are poststernotomy changes. A few small right basilar linear densities favor subsegmental atelectasis or scarring. Progressive density within the left lateral lung base. IMPRESSION: 1. Progressive density within the left lateral lung base which could represent atelectasis or a developing pneumonia. 2. Low lung volumes. 3. Stable cardiomegaly. ACT 112: Negative or not required by law. Electronically signed by: Jeorme Segura M.D. 03/08/2023 8:35 AM
[2023-03-10] MEDS: SODIUM CHLORIDE 0.65% NA SOLN 45 ML (OCEAN) SCH ×4 (02:03→18:15)
[2023-03-10] MEDS: OXYMETAZOLINE 0.05% 30 ML BTL SCH (06:06)
[2023-03-10] MEDS: DOXYCYCLINE HYCLATE 100 MG CAP PO SCH ×2 (06:06→18:13)
[2023-03-10] MEDS: LEVOTHYROXINE SODIUM 137 MCG TABLET PO SCH (06:07)
[2023-03-10] MEDS: PROMETHAZINE HCL 6.25 MG in SODIUM CHLORIDE 0.9% 50 ML IV PRN (07:05)
[2023-03-10 07:18] LABS: Basophils # (auto) 0.13 K/uL (0.00-0.20); Basophils % (auto) 1.2 %; Eosinophils # (auto) 0.22 K/uL (0.00-0.50); Hematocrit (blood only) 33.9 % (37.0-47.0); Hemoglobin 10.7 g/dl (12.0-16.0); Immature Granulocytes % (auto) 0.9 %; Lymphocytes # (auto) 1.96 K/uL (1.20-3.40); Lymphocytes % (auto) 17.5 %; Mean Corpuscular Hemoglobin 31.8 pg (25.0-34.0); Mean Corpuscular Hgb Conc 31.6 g/dL (32.0-36.0); Mean Corpuscular Volume 100.9 fL (80.0-100.0); Mean Platelet Volume 9.9 fL (9.4-12.4); Monocytes # (auto) 1.56 K/uL (0.11-0.59); Monocytes % (auto) 13.9 %; Neutrophils # (auto) 7.26 K/uL (1.40-6.50); Neutrophils % (auto) 64.5 %; Platelet Count 401 K/uL (130-400); RDW Coefficient of Variation 14.5 % (11.5-14.5); RDW Standard Deviation 53.9 fL (36.4-46.3); Red Blood Count 3.36 M/uL (4.20-5.40); White Blood Count 11.23 K/ul (4.8-10.8)
[2023-03-10] MEDS: ALBUT/IPRATROP 3MG/0.5MG NEB 3 ML VIAL NEB SCH ×2 (07:35→19:59)
[2023-03-10 07:45] LABS: BUN Creatinine Ratio 25.6 (10-20); Calcium 8.6 mg/dl (8.6-10.3); Creatinine Clr Calc Pharmacy 58.9 ml/min; Est GFR (African American) 84.4 ml/min; Est GFR (Non-African American) 72.8 ml/min; Potassium 3.3 mmol/L (3.5-5.1)
[2023-03-10] MEDS ORDERED: POTASSIUM CHLORIDE CRTAB 20 MEQ TABCR PO STA (07:46)
[2023-03-10] MEDS: MAGNESIUM OXIDE 400 MG TAB PO SCH (08:29)
[2023-03-10] MEDS: FAMOTIDINE 20 MG TAB PO SCH ×2 (08:29→20:38)
[2023-03-10] MEDS: allopurinoL 300 MG TAB PO SCH ×2 (08:29→20:37)
[2023-03-10] MEDS: VERAPAMIL HCL 240 MG TABCR PO SCH ×2 (08:29→20:38)
[2023-03-10] MEDS: FLUTICASONE/VILANTEROL 100/25MCG 14 PUFFS/INHALER INH SCH (08:29)
[2023-03-10] MEDS: ROSUVASTATIN CALCIUM 5 MG TAB PO SCH (08:30)
[2023-03-10] MEDS: CYANOCOBALAMIN (B-12) 500 MCG TABLET PO SCH (08:30)
[2023-03-10] MEDS: CHOLECALCIFEROL 1,000 UNITS 25 MCG TAB PO SCH (08:30)
[2023-03-10] MEDS: PANTOprazole 40 MG TAB PO SCH (08:30)
[2023-03-10] MEDS: cefTRIAXone SODIUM 2,000 MG in DEXTROSE 5 % MINI-B 50 ML IV SCH (09:37)
--- NOTE | 2023-03-10 10:00 | Hospitalist Progress Note ---
Date of Service March 10, 2023 Assessment & Plan (1) Weakness: (2) History of pulmonary embolism: (3) Dyspnea on exertion: (4) CAD in [place] artery: (5) Ischemic cardiomyopathy: (6) Hypothyroidism: (7) Dyslipidemia: (8) GERD (gastroesophageal reflux disease): Plan This is a 77yo F with a PMHx significant for diverticulitis and gastroenteritis 2/2 astrovirus infection, Hx PE with associated heart strain and Hx of DVT, hiatal hernia, mild asthma, CAD, history of tachybradycardia syndrome, ischemic cardiomyopathy, HTN, HLD, CKD stage III, hypothyroidism, GERD, history of DVT/PE who presents with progressing generalized weakness and dyspnea on exertion. Left Nares epistaxis History of epistaxis in the past as well Intermittent epistaxis noted on March 05, 2023 On March 06atient started to have anterior specializes with profuse bleeding Status post Afrin and nasal packing Discussed with Dr. Burns from ENT; antibiotics while on pack in place, nasal pray qid, afrin tid x 3 days, txa nebs prn. Follow-up in 3 to 5 days for packing removal. Likely to be removed tomorrow as it will be the fifth day of the Rhino Rocket placement. Left-sided pneumonia Dyspnea on Exertion Possible asthma exacerbation Acute hypoxic respiratory failure Patient presented with shortness of breath and acute hypoxic respiratory failure Per ED provider, witnessed pt's O2 sat drop to the 80s with ambulation to the bathroom CT chest obtained - no PE - + hiatal hernia, and atelectasis hs-troponin wnl, EKG with no acute changes BNP 41 Last echo in August 2022 noted an enlarged right ventricle with Harry's sign suggestive of PE at that time. Repeat echo obtained -LV systolic function is normal. EF 55 to 60%. RV is normal size. RV systolic function is qualitatively normal. Mild mitral regurg. Mild tricuspid regurg. Doppler findings do not suggest pulmonary hypertension. Pulmonary med. consulted for further recommendations - started bronchodilators for poss. asthma. Pt 's breathing seems to be improving. Currently she is requiring 1 L of oxygen by nasal cannula. X-ray from March 08, 2023 personally reviewed; developing pneumonia on left lower lung field Given the finding on the chest x-ray from March 08, the likely cause is aspiration from epistaxis. Started on ceftriaxone and doxycycline. Continue for now. DuoNebs every 12 hours Incentive spirometry and flutter valve for airway clearance. Generalized Weakness Fatigue Uncertain etiology, acute in onset Pt saw her PCP for this about 2 weeks ago- noted she had just been weaned off of prednisone that she was on daily for 4 months (pt reports hx of gout) Symptoms possibly related to her dyspnea on exertion process Hx of bilateral pulmonary emboli Noted during last admission in August 2022 Currently on Eliquis 5mg BID, states has been taking it as prescribed H/o VTE in the past so likely needs lifelong anticoagulation Given her recent episode of epistaxis; will need to follow-up with PCP to discuss further. GERD/Hiatal hernia Continue pantoprazole, famotidine Tachy-chintan syndrome/Ischemic cardiomyopathy s/p dual chamber pacemaker. Continue diltiazem CAD in [place] artery Continue statin. Aspirin currently on hold. Hypertension - at home on atenolol, diltiazem Cardiology consulted; recommended to continue verapamil to 240 mg twice per day. Discontinue atenolol. Plan for spironolactone 12.5 3 days/week Hypothyroidism continue levothyroxine Gout continue home allopurinol HLD continue home statin Diet: DVT Ppx: On hold due to bleeding Code status: FULL Dispo: Patient is admitted for pneumonia requiring IV antibiotics. She also has epistaxis requiring closer monitoring for recurrence. Possible discharge tomorrow a.m. if no bleeding occurs after removal of Rhino Rocket Please note the above document was generated using voice recognition software. It may contain grammatical, syntax or spelling errors. Any formal questions or concerns about the content, text or information contained within the body of this dictation should be directly addressed to the provider for clarification Admission and Anticipated Discharge Date Admission Date: February 24, 2023 Subjective Patient seen and examined at bedside. No bleeding noted overnight. She reports shortness of breath on exertion. Review of Systems Review of Systems: All systems reviewed & are unremarkable except as noted in Subjective Physical Exam Physical Exam: General- oriented x 3, appears tired Eyes- anicteric Nose-packing in place in left nostril Neck- no JVD Lungs-decreased breath sound on the left lower lung field. No rales/wheezes. Heart- normal rate, regular rhythm; no murmurs Abdomen- normal bowel sounds, nondistended, soft, nontender Extremities- no pretibial edema, no calf tenderness Neuro- alert, oriented x 3; no gross focal neurologic deficits Skin- warm & dry Results & Data Results & Data Vital Signs (Past 12 Hours) Vital Signs Temp Pulse Pulse Resp BP Pulse Ox O2 Del Method 03/10/23 07:35 98 H 20 90 Nasal Cannula 03/10/23 07:27 36.2 C L 97 H 18 124/68 90 Nasal Cannula 03/10/23 07:15 Room Air, Nasal Cannula 03/10/23 06:02 93 H 03/10/23 03:02 36.6 C 90 18 113/64 91 Nasal Cannula 03/09/23 23:37 36.3 C L 87 18 110/69 93 Nasal Cannula 03/09/23 22:08 94 H O2 Flow Rate 03/10/23 07:35 3 03/10/23 07:27 3 03/10/23 07:15 3 03/10/23 06:02 03/10/23 03:02 3 03/09/23 23:37 3 03/09/23 22:08 Laboratory Results Laboratory Results WBC 11.23 K/ul (4.8-10.8) H 03/10/23 05:42 RBC 3.36 M/uL (4.20-5.40) L 03/10/23 05:42 Hgb 10.7 g/dl (12.0-16.0) L 03/10/23 05:42 Hct 33.9 % (37.0-47.0) L 03/10/23 05:42 MCV 100.9 fL (80.0-100.0) H 03/10/23 05:42 MCH 31.8 pg (25.0-34.0) 03/10/23 05:42 MCHC 31.6 g/dL (32.0-36.0) L 03/10/23 05:42 RDW Std Deviation 53.9 fL (36.4-46.3) H 03/10/23 05:42 RDW Coeff of Agnes 14.5 % (11.5-14.5) 03/10/23 05:42 Plt Count 401 K/uL (130-400) H 03/10/23 05:42 MPV 9.9 fL (9.4-12.4) 03/10/23 05:42 Immature Gran % (Auto) 0.9 % 03/10/23 05:42 Neut % (Auto) 64.5 % 03/10/23 05:42 Lymph % (Auto) 17.5 % 03/10/23 05:42 [place] % (Auto) 13.9 % 03/10/23 05:42 Eos % (Auto) 2.0 % 03/10/23 05:42 Baso % (Auto) 1.2 % 03/10/23 05:42 Neut # (Auto) 7.26 K/uL (1.40-6.50) H 03/10/23 05:42 Lymph # (Auto) 1.96 K/uL (1.20-3.40) 03/10/23 05:42 [place] # (Auto) 1.56 K/uL (0.11-0.59) H 03/10/23 05:42 Eos # (Auto) 0.22 K/uL (0.00-0.50) 03/10/23 05:42 Baso # (Auto) 0.13 K/uL (0.00-0.20) 03/10/23 05:42 Immature Gran # (Auto) 0.10 K/uL (0.01-0.20) 03/10/23 05:42 Absolute Nucleated RBC 0.02 K/uL (0.00-0.12) 02/28/23 04:35 Nucleated RBC % (auto) 0.2 % 02/28/23 04:35 PT 11.4 Seconds (9.0-12.0) 02/24/23 09:47 INR 1.0 (0.9-1.1) 02/24/23 09:47 APTT 29 Seconds (21-31) 03/06/23 06:07 PTT Ratio 1.0 03/06/23 06:07 VBG pH 7.33 (7.36-7.41) L 02/24/23 13:00 VBG pCO2 49 mmHg (38-50) 02/24/23 13:00 VBG pO2 32 mmHg 02/24/23 13:00 VBG HCO3 26 mmol/L 02/24/23 13:00 VBG O2 Saturation < 60.0 % 02/24/23 13:00 VBG Base Excess -0.6 mEq/L 02/24/23 13:00 Sodium 142 mmol/L (136-145) 03/10/23 05:42 Potassium 3.3 mmol/L (3.5-5.1) L 03/10/23 05:42 Chloride 108 mmol/L (98-107) H 03/10/23 05:42 Carbon Dioxide 27 mmol/L (21-32) 03/10/23 05:42 Anion Gap 7 (3-11) 03/10/23 05:42 BUN 20 mg/dl (6-23) 03/10/23 05:42 Creatinine 0.78 mg/dl (0.6-1.2) 03/10/23 05:42 Est Cr Clr Drug Dosing 58.9 ml/min 03/10/23 05:42 Est GFR ( Amer) 84.4 ml/min 03/10/23 05:42 Est GFR (Non-Af Amer) 72.8 ml/min 03/10/23 05:42 BUN/Creatinine Ratio 25.6 (10-20) H 03/10/23 05:42 Glucose 96 mg/dl (70-99(Fasting)) 03/10/23 05:42 Estimat Average Glucose 123 mg/dl 02/25/23 05:50 Hemoglobin A1c 5.9 % (4.5-5.6) H 02/25/23 05:50 Calcium 8.6 mg/dl (8.6-10.3) 03/10/23 05:42 Ionized Calcium 0.98 mmol/L (1.12-1.32) L 02/25/23 05:50 Phosphorus 3.7 mg/dl (2.5-4.9) 02/28/23 04:35 Magnesium 2.0 mg/dl (1.7-2.4) 03/06/23 06:07 Total Bilirubin 0.3 mg/dl (0.2-1.0) 02/25/23 05:50 AST 5 U/L (13-39) L 02/25/23 05:50 ALT 9 U/L (7-52) 02/25/23 05:50 Alkaline Phosphatase 82 U/L (34-104) 02/25/23 05:50 Troponin I High Sens 4.3 pg/ml (0-14) 02/24/23 09:47 B-Natriuretic Peptide 42 pg/ml (0-100) 02/24/23 13:00 Total Protein 4.7 gm/dl (6.0-8.3) L 02/25/23 05:50 Albumin 2.7 gm/dl (3.4-5.0) L 02/25/23 05:50 Globulin 2.0 gm/dl (2.5-4.0) L 02/25/23 05:50 Albumin/Globulin Ratio 1.4 (0.9-2) 02/25/23 05:50 Vitamin B12 621 pg/ml (180-914) 02/24/23 09:47 TSH 1.488 uIu/ml (0.300-4.500) 02/24/23 09:47 Cortisol AM Sample 17.52 mcg/dl (6.2-22.6) 03/02/23 07:04 Urine Color Yellow 02/24/23 12:05 Urine Appearance Slightly Cloudy (Clear) 02/24/23 12:05 Urine pH 6.0 (4.5-7.5) 02/24/23 12:05 Ur Specific [place] >= 1.030 (1.000-1.030) 02/24/23 12:05 Urine Protein 1+ (Negative) H 02/24/23 12:05 Urine Glucose (UA) Negative (Negative) 02/24/23 12:05 Urine Ketones Negative (Negative) 02/24/23 12:05 Urine Blood Negative (Negative) 02/24/23 12:05 Urine Nitrite Negative (Negative) 02/24/23 12:05 Urine Bilirubin Negative (Negative) 02/24/23 12:05 Urine Urobilinogen Negative (Negative) 02/24/23 12:05 Ur Leukocyte Esterase Negative (Negative) 02/24/23 12:05 Urine RBC 0-4 /hpf (0-4) 02/24/23 12:05 Urine WBC 0-5 /hpf (0-5) 02/24/23 12:05 Ur Epithelial Cells >30 /lpf (0-5) H 02/24/23 12:05 Urine Bacteria 1+ (Negative) H 02/24/23 12:05 Adenovirus (PCR) Not Detected (NotDetected) 02/24/23 10:49 B. pertussis DNA (PCR) Not Detected (NotDetected) 02/24/23 10:49 B.parapertussis DNA PCR Not Detected (NotDetected) 02/24/23 10:49 C. pneumoniae DNA (PCR) Not Detected (NotDetected) 02/24/23 10:49 Coronavirus OC43 (PCR) Not Detected (NotDetected) 02/24/23 10:49 Coronavirus HKU1 (PCR) Not Detected (NotDetected) 02/24/23 10:49 Coronavirus 229E (PCR) Not Detected (NotDetected) 02/24/23 10:49 SARS-CoV-2 (PCR) NEGATIVE (Negative) 03/04/23 Unknown Coronavirus NL63 (PCR) Not Detected (NotDetected) 02/24/23 10:49 Human Metapneumovir PCR Not Detected (NotDetected) 02/24/23 10:49 Influenza Type A (PCR) Not Detected (NotDetected) 02/24/23 10:49 Influenza Type B (PCR) Not Detected (NotDetected) 02/24/23 10:49 M. pneumoniae (PCR) Not Detected (NotDetected) 02/24/23 10:49 Parainfluenza 1 (PCR) Not Detected (NotDetected) 02/24/23 10:49 Parainfluenza 2 (PCR) Not Detected (NotDetected) 02/24/23 10:49 Parainfluenza 3 (PCR) Not Detected (NotDetected) 02/24/23 10:49 Parainfluenza 4 (PCR) Not Detected (NotDetected) 02/24/23 10:49 RSV (PCR) Not Detected (NotDetected) 02/24/23 10:49 Entero/Rhino (PCR) Not Detected (NotDetected) 02/24/23 10:49 SARS-CoV-2, RNA, NAAT NEGATIVE (NEGATIVE) 02/28/23 18:12 Blood Type O Positive 03/06/23 06:07 Antibody Screen NEGATIVE 03/06/23 06:[address] 02/24/23 10:44 CT head/brain wo con CLINICAL HISTORY: weakness Technique: Contiguous axial CT images of the head were acquired from the base of the skull to the vertex without intravenous contrast administration. Images were viewed in brain, subdural and bone windows. Automated dose lowering techniques and/or adjustment according to patient size were utilized for this exam. Comparison: Comparison is made to CT head 01/03/2021 Findings: The ventricles, basal cisterns, and cerebral sulci are normal. There is no acute intracranial hemorrhage or evidence of acute territorial infarction. Neither mass effect, shift of the midline structures, nor abnormal extra-axial fluid collections are shown. Imaged portions of the paranasal sinuses and mastoid air cells are clear. The orbits appear normal. There are no acute fractures of the calvaria or scalp swelling. Impression: No acute intracranial hemorrhage, no evidence of acute territorial infarction or other acute intracranial disease process. ACT 112: Negative or not required by law. Electronically signed by: Rafael Solitario M.D. 02/24/2023 11:21 AM Chest CTA 02/24/23 13:07 CT angio chest PE protocol CLINICAL HISTORY: PE TECHNIQUE: Multidetector row helical CT of the chest was performed with angiographic protocol. Coronal and sagittal reformations were obtained. Coronal and sagittal MIPS were obtained from the axial data set and were submitted for review. Automated dose lowering techniques and/or adjustment according to patient size were utilized for this exam. CT DOSE: 572.82 mGy.cm Comparison: Comparison is made to CTA chest 09/02/2022 FINDINGS: Lungs and pleura: Atelectasis versus scarring is seen in the dependent portions of the lungs. Heart and pericardium: Cardiomegaly is seen with biatrial enlargement. Vessels: Evaluation for pulmonary embolism is limited due to patient motion. No evidence of central, lobar, or segmental embolus. Moderate atherosclerotic disease is seen. Mediastinum and milady: Unremarkable. Chest wall and lower neck: Unremarkable. Abdomen: Large hiatal hernia is seen. There is a left renal cyst measuring 18 mm in diameter. Bones: Degenerative changes in the thoracic spine. IMPRESSION: No acute abnormality and in particular no evidence of pulmonary embolus. Atelectasis is seen with a large hiatal hernia. Mild cardiomegaly is again seen. ACT 112: Negative or not required by law. Electronically signed by: Rafael Solitario M.D. 02/24/2023 2:35 PM Chest X-Ray 03/08/23 08:07 XR chest 1V portable HISTORY: Shortness of breath. rule out pneumonia COMPARISON: Chest 02/24/2023. FINDINGS: There are low lung volumes. No pneumothorax. The heart remains enlarged. There is a left-sided dual-chamber pacemaker again noted. There are poststernotomy changes. A few small right basilar linear densities favor subsegmental atelectasis or scarring. Progressive density within the left lateral lung base. IMPRESSION: 1. Progressive density within the left lateral lung base which could represent atelectasis or a developing pneumonia. 2. Low lung volumes. 3. Stable cardiomegaly. ACT 112: Negative or not required by law. Electronically signed by: Jerome Segura M.D. 03/08/2023 8:35 AM
[2023-03-11] MEDS: SODIUM CHLORIDE 0.65% NA SOLN 45 ML (OCEAN) SCH ×3 (00:28→13:11)
[2023-03-11] MEDS: LEVOTHYROXINE SODIUM 137 MCG TABLET PO SCH (06:06)
[2023-03-11 06:42] LABS: Basophils # (auto) 0.13 K/uL (0.00-0.20); Basophils % (auto) 1.3 %; Eosinophils # (auto) 0.33 K/uL (0.00-0.50); Eosinophils % (auto) 3.4 %; Hematocrit (blood only) 32.2 % (37.0-47.0); Hemoglobin 10.3 g/dl (12.0-16.0); Immature Granulocytes # (auto) 0.08 K/uL (0.01-0.20); Immature Granulocytes % (auto) 0.8 %; Lymphocytes # (auto) 1.81 K/uL (1.20-3.40); Lymphocytes % (auto) 18.5 %; Mean Corpuscular Hemoglobin 31.6 pg (25.0-34.0); Mean Corpuscular Volume 98.8 fL (80.0-100.0); Mean Platelet Volume 9.7 fL (9.4-12.4); Monocytes # (auto) 1.43 K/uL (0.11-0.59); Monocytes % (auto) 14.6 %; Neutrophils % (auto) 61.4 %; Platelet Count 376 K/uL (130-400); RDW Coefficient of Variation 14.6 % (11.5-14.5); Red Blood Count 3.26 M/uL (4.20-5.40); White Blood Count 9.78 K/ul (4.8-10.8)
[2023-03-11] MEDS: ALBUT/IPRATROP 3MG/0.5MG NEB 3 ML VIAL NEB SCH (07:06)
[2023-03-11 07:09] LABS: Calcium 8.7 mg/dl (8.6-10.3); Creatinine Clr Calc Pharmacy 59.5 ml/min; Est GFR (African American) 85.7 ml/min; Potassium 3.9 mmol/L (3.5-5.1)
[2023-03-11] MEDS: DOXYCYCLINE HYCLATE 100 MG CAP PO SCH (07:10)
[2023-03-11] MEDS: allopurinoL 300 MG TAB PO SCH (07:53)
[2023-03-11] MEDS: CHOLECALCIFEROL 1,000 UNITS 25 MCG TAB PO SCH (07:53)
[2023-03-11] MEDS: CYANOCOBALAMIN (B-12) 500 MCG TABLET PO SCH (07:53)
[2023-03-11] MEDS: FAMOTIDINE 20 MG TAB PO SCH (07:54)
[2023-03-11] MEDS: MAGNESIUM OXIDE 400 MG TAB PO SCH (07:54)
[2023-03-11] MEDS: VERAPAMIL HCL 240 MG TABCR PO SCH (07:54)
[2023-03-11] MEDS: ROSUVASTATIN CALCIUM 5 MG TAB PO SCH (07:54)
[2023-03-11] MEDS: SPIRONOLACTONE 12.5 MG TAB PO SCH (07:54)
[2023-03-11] MEDS: PANTOprazole 40 MG TAB PO SCH (07:54)
[2023-03-11] MEDS: FLUTICASONE/VILANTEROL 100/25MCG 14 PUFFS/INHALER INH SCH (07:54)
[2023-03-11] MEDS: cefTRIAXone SODIUM 2,000 MG in DEXTROSE 5 % MINI-B 50 ML IV SCH (10:05)
--- NOTE | 2023-03-11 13:33 | Discharge Summary ---
Date of Service March 11, 2023 Admission HPI Per Admitting Provider This is a 77yo F with a PMHx significant for diverticulitis and gastroenteritis 2/2 astrovirus infection, Hx PE with associated heart strain and Hx of DVT, hiatal hernia, mild asthma, CAD, history of tachybradycardia syndrome, ischemic cardiomyopathy, HTN, HLD, CKD stage III, hypothyroidism, GERD, history of DVT/PE who presents with progressing generalized weakness and dyspnea on exertion. Hx obtained from the pt, chart review and EPIC records. Pt states that her symptoms started about 8 days ago where she started feeling exhausted. States she has to stop and rest even with walking from her bed to the bathroom. States she saw her pcp for this and b12 deficiency was noted and supplemented. However she states that her symptoms have been worsening, especially on thanksgiving. States she did not eat much, had only gravy and stuffing. States she still works and does not use a cane or walker at baseline. Has not been able to stand at work since this started. Denies chest pain, SOB, cough. States she thought her symptoms were related to her thyroid but she was told by her pcp and ED provider today that her thyroid function is fine. Notes she had eye surgery 6 weeks ago. Lives at home with her daughter. Per ED provider pt had pulse ox on and desaturated to the 80s in the room with ambulation. Hx of PEs but states she has been taking her Eliquis as prescribed. Principal Diagnosis Left anterior is epistaxis Left-sided pneumonia Discharge Exam General- oriented x 3, appears tired Eyes- anicteric Nose no visible bleeding present Neck- no JVD Lungs-decreased breath sound on the left lower lung field. No rales/wheezes. Heart- normal rate, regular rhythm; no murmurs Abdomen- normal bowel sounds, nondistended, soft, nontender Extremities- no pretibial edema, no calf tenderness Neuro- alert, oriented x 3; no gross focal neurologic deficits Skin- warm & dry Discharge Data Allergies Allergy/AdvReac Type Severity Reaction Status Date / Time imipenem Allergy Severe ANAPHYLAXIS Verified 11/16/22 20:55 Sulfa (Sulfonamide Allergy Severe hives,sob, Verified 11/16/22 20:55 Antibiotics) can take Dyazide daptomycin AdvReac Severe Anaphylaxis Unverified 11/16/22 20:55 colchicine AdvReac Intermediate diarrhea Verified 11/16/22 20:55 metoprolol AdvReac Mild fatigue Verified 11/16/22 20:55 zoledronic acid AdvReac Mild NAUSEA AND Verified 11/16/22 20:55 VOMITING Consultations 02/24/23 12:42 ED Decision to Admit Stat 02/25/23 12:59 Consult Pulmonology Routine 03/02/23 07:57 Consult Cardiology Routine 03/06/23 08:13 Consult Otolaryngology (Head and Neck) Routine Ordered Studies 02/24/23 10:44 CT head/brain wo con Stat 02/24/23 13:07 CT angio chest PE protocol Urgent Hospital Course (1) Weakness: (2) History of pulmonary embolism: (3) Dyspnea on exertion: (4) CAD in [place] artery: (5) Ischemic cardiomyopathy: (6) Hypothyroidism: (7) Dyslipidemia: (8) GERD (gastroesophageal reflux disease): Plan This is a 77yo F with a PMHx significant for diverticulitis and gastroenteritis 2/2 astrovirus infection, Hx PE with associated heart strain and Hx of DVT, hiatal hernia, mild asthma, CAD, history of tachybradycardia syndrome, ischemic cardiomyopathy, HTN, HLD, CKD stage III, hypothyroidism, GERD, history of DVT/PE who presents with progressing generalized weakness and dyspnea on exertion. Left Nares epistaxis History of epistaxis in the past as well Intermittent epistaxis noted on March 05, 2023 On March 063patient started to have anterior specializes with profuse bleeding Status post Afrin and nasal packing Discussed with Dr. Burns from ENT; antibiotics while on pack in place, nasal pray qid, afrin tid x 3 days, txa nebs prn. Follow-up in 3 to 5 days for packing removal. Rhino Rocket removed at the day of the discharge. No bleeding noted. Patient needs to follow-up with PCP and obtain hematology referral to determine doses and duration of anticoagulation and ENT referral for possible cautery. Left-sided pneumonia Dyspnea on Exertion Possible asthma exacerbation Acute hypoxic respiratory failure Patient presented with shortness of breath and acute hypoxic respiratory failure Per ED provider, witnessed pt's O2 sat drop to the 80s with ambulation to the bathroom CT chest obtained - no PE - + hiatal hernia, and atelectasis hs-troponin wnl, EKG with no acute changes BNP 41 Repeat echo obtained -LV systolic function is normal. EF 55 to 60%. RV is normal size. RV systolic function is qualitatively normal. Mild mitral regurg. Mild tricuspid regurg. Doppler findings do not suggest pulmonary hypertension. Pulmonary med. consulted for further recommendations - started bronchodilators for poss. asthma. Pt 's breathing seems to be improving. Currently she is requiring 1 L of oxygen by nasal cannula. X-ray from March 08, 2023 personally reviewed; developing pneumonia on left lower lung field Given the finding on the chest x-ray from March 08, the likely cause is aspiration from epistaxis. Started on ceftriaxone and doxycycline. DuoNebs every 12 hours Incentive spirometry and flutter valve for airway clearance. At discharge, patient was in room air. She was prescribed oral antibiotics (cefdinir and doxycycline) to complete the course. Please note the above document was generated using voice recognition software. It may contain grammatical, syntax or spelling errors. Any formal questions or concerns about the content, text or information contained within the body of this dictation should be directly addressed to the provider for clarification Total Time Total Time Spent Total Time Spent (In Minutes): 40 Total Time Includes: Examination of the Patient, Discharge Planning, Medication Reconciliation, Communication With Other Providers and Other Discharge Plan Discharge Items Patient Disposition: Home - Home Health Services Reason For Visit: WEAKNESS Discharge Diagnosis: Left Nares epistaxis Left-sided pneumonia Activity: Resume your previous activity Non-emergency contact: Primary Care Provider Call non-emergency contact if: you have any medication questions and your symptoms worsen Follow-up/Referrals: Rafa Bergman MD [Primary Care Provider] - (Date & Time 03/15/2023 1:40 PM Provider Rafa Bergman MD Department Family Medicine [facility] ) Diet: Regular Addtl Attending Provider Instructions: For the left-sided pneumonia: You were prescribed cefdinir and doxycycline to be taken twice daily for 3 more days. You need to follow-up with your primary care doctor and obtain repeat chest x-ray in 4 weeks to ensure resolution of the pneumonia. You were also prescribed an inhaler to be taken twice daily as per the pulmonology doctor. For the nasal bleedin) Please do not blow your nose for the next 2 days. Use saline mist 2 sprays every 6 hours to keep it moist. 2) Please follow-up with your primary care doctor and obtain ENT referral for cauterization. 3) Your Allyquis has been on hold due to the nasal bleeding. You need to get h ematology referral to guide the anticoagulation dose and duration. The cardiology doctor also evaluated you during the hospitalization. Atenolol has been discontinued. You are started on spironolactone 12.5 mg to be taken 3 times a week (Saturday and Saturday) You are also prescribed verapamil as per cardiology to be taken twice daily. Pending Studies at Discharge: No Stand-Alone Forms: My [facility] [employer], Smoking Cessation Medications and DC Order Prescriptions: New fluticasone propion-salmeterol [Advair HFA] 115-21 mcg/actuation HFA aerosol inhaler 2 puff inhalation BID Qty: 12 0RF montelukast 10 mg Tablet 10 mg PO HS Qty: 30 0RF doxycycline hyclate 100 mg Capsule 100 mg PO BID@0700,1900 3 Days Qty: 6 0RF spironolactone 25 mg Tablet 12.5 mg PO 3XWK Qty: 30 0RF verapamil 240 mg Tablet Extended Release 240 mg PO BID Qty: 60 0RF Saline Mist 0.65 % Aerosol,[place] 2 spray NA Q6H Qty: 45 0RF cefdinir 300 mg capsule 300 mg PO BID 3 Days Qty: 6 0RF Continued fexofenadine [Elke Allergy] 180 mg Tablet 180 mg PO DAILY cholecalciferol (vitamin D3) [Vitamin D3] 2,000 unit Tablet 2,000 unit PO QAM nitroglycerin [Nitrostat] 0.4 mg tablet, sublingual 0.4 mg Sublingual Q5M Qty: 25 3RF Rx Instructions: 1 pill under tongue for chest pain. May repeat in 5 min. Call 911 if no relief. fluticasone propionate [Flonase Allergy Relief] 50 mcg/actuation [place],Suspension 2 spray INTRANASAL QAM PRN (Reason: Nasal Congestion) Rx Instructions: use following nasal saline aspirin 81 mg Tablet,Delayed Release (Dr/Ec) 81 mg PO HS Qty: 0 0RF dicyclomine 20 mg Tablet 20 mg PO TID PRN (Reason: IBS) levothyroxine 137 mcg tablet 137 mcg PO DAILYBB diltiazem HCl 360 mg tablet extended release 24 hr 360 mg PO QPM rosuvastatin 5 mg tablet 5 mg PO DAILY coenzyme Q10 [CoQ-10] 100 mg Capsule 100 mg PO DAILY allopurinol 300 mg tablet 300 mg PO QAM pantoprazole 40 mg tablet,delayed release (DR/EC) 40 mg PO DAILY Rx Instructions: take 40 mg daily allopurinol 300 mg Tablet 150 mg PO QPM loperamide 2 mg Tablet 2 mg PO QID PRN (Reason: Diarrhea) famotidine 20 mg Tablet 20 mg PO BID Probiotic For Women 1 tab PO DAILY Held Eliquis 5 mg tablet 5 mg PO BID Qty: 60 0RF Hold Instructions: Resume on 03/25/23. Hold it till you see ENT and Hematolgy Discontinued atenolol 25 mg tablet 12.5 mg PO DAILY Discharge Orders: Discharge Order (Routine); Ordered 03/11/23 Ordered By: Mark Woodall Admission Data Admit Date/Time: 02/24/23 15:33 Attending Provider: Mark Woodall Admit Provider: Susie Braun Primary Care Provider: Rafa Bergman Other Providers: Susie Braun; Iván Reid Andrea F.; Babak Curiel; Stacey Burns [facility] Other Interventions: Discharge Summary Assessment (RN) Last Done: 03/11/23 11:29
== END 2023-03-11 14:06 | disposition home health service (06) | DRG 193 ==
LOC: 2N 09:10 → ED 09:10 → 2N 15:30 → SUATTDRO 15:33 → OBSVTOIN 15:33 → 2W 02-27 18:14

== ENCOUNTER 2024-07-23 15:18 | Inpatient (IN) ==
--- NOTE | 2024-07-23 15:49 | Emergency Department Note ---
Impression & Plan Dyspnea on exertion, Sinus tachycardia, Leukocytosis, Acute UTI (urinary tract infection) ED Provider Note HISTORY OF PRESENT ILLNESS: Patient is a 79-year-old female presenting with shortness of breath. Patient reports that she started getting short of breath with exertion 11 days ago. She has been seen by [facility] and had her vital signs taken multiple times. She has been noted to be tachycardic during all of their visits. She states that her shortness of breath is not present when she is at rest. However, with eating, minimal amounts of steps or walking very short distances, the patient becomes significantly winded and has to stop for multiple breaks. She reports this is new for her, she normally is quite active and walks a lot during the day. She is on Eliquis for history of pulmonary embolism. She denies any missed doses. She denies any chest pain with her shortness of breath. She does report getting lightheaded and dizzy when her heart rate is very high. She reports that when she feels very breath it feels like her heart is racing and she has palpitations. Denies any significant lower extremity edema. She reports that she was started on 10 mg of Lasix yesterday. Denies any recent cough or fevers. Denies any abdominal pain, nausea or vomiting. ROS: as above PHYSICAL EXAM: Constitutional: Patient appears in no acute distress. HENT: Head: Normocephalic and atraumatic. Eyes: EOMI, PERRL Ears: TM intact without erythema or bulging. External canals without erythema or discharge. Mouth/Throat: Mucous membranes moist. Neck: Trachea midline. Neck supple. Cardiovascular: Tachycardic with regular rhythm. No murmurs, rubs or gallops. Intact distal pulses. Pulmonary/Chest: No respiratory distress. Breath sounds clear and equal bilaterally. No wheezes or rales. Abdominal: Abdomen soft, no tenderness, rebound or guarding. Musculoskeletal: No edema, tenderness or deformity noted. Skin: Warm and dry. No rash, erythema, pallor or cyanosis Psychiatric: Appropriate mood and affect for situation. Neurological: Alert and keenly responsive. CN II-XII grossly intact, moving all extremities equally and fully. MDM: - Vitals signs showed tachycardia. - History obtained via patient. History as above. - Chronic conditions affecting care: hx of PE (on Eliquis); hx of DVT; CAD; tachybrady syndrome; ischemic cardiomyopathy; HTN; HLD; CKD stage 3; hypothyroidism; GERD - Differential diagnoses include, but are not limited to: Congestive heart failure; acute coronary syndrome; COPD/asthma exacerbation; pulmonary edema; pulmonary embolism; pneumonia; pneumothorax; viral syndrome - Order placed for continuous cardiac monitoring. At this time, monitor showed rate of 107 bpm with normal sinus rhythm, per my interpretation. - External medical records reviewed. Showed Discharge summary dated 03/11/2023 was reviewed. Patient was admitted that time secondary to left-sided pneumonia and left anterior epistaxis. - EKG image interpreted by myself showed normal sinus rhythm. Rate tachycardic at 107 bpm. QT 334. No acute ischemic changes. - Laboratory workup interpreted by myself showed leukocytosis (WBC 12.48) with neutrophil predominance; stable electrolytes; normal troponin; normal BNP - CXR image reviewed by myself is negative for pneumonia, per my interpretation. - VBG grossly normal - CT PE negative - UA showed bacteria, but no WBCs. 2g IV rocephin ordered for antibiotic coverage. - Attempted to ambulate the patient for potential discharge home. However, on attempted ambulation to the bathroom, the patient became significantly winded. Her oxygen saturation dipped down to 91% on room air and she seemed significantly dyspneic on assessment. Her heart rate was up to 145 bpm. Patient was brought back to bed and her heart rate slowly trended down. Patient states that these are the symptoms she has been having over the last 11 days. - Discussion was had with piano case and bench assembler about patient's case and need for admission - Hospitalist consulted for admission - Patient admitted to [facility] service for further evaluation and management. 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 Acute endophthalmitis of right eye Gout flare Diverticulitis large intestine (Acute) Gout Status post biventricular pacemaker Chest pain (Acute) Right-sided epistaxis Asthma exacerbation, mild Hiatal hernia Elevated troponin (Acute) Dyspnea on exertion (Acute) Leukocytosis (Acute) CAD in tetlin artery (Chronic) Elevated LFTs (Acute) Osteoporosis (Chronic) 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 (Chronic) 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) History of non-ST elevation myocardial infarction (NSTEMI) (Chronic) Vitamin B12 deficiency (Chronic) History of cardiac cath (Chronic) CAD (coronary artery disease) DVT prophylaxis Ischemic cardiomyopathy (Chronic) GERD (gastroesophageal reflux disease) (Chronic) History of pulmonary embolism (Chronic) Dyslipidemia (Chronic) Hypothyroidism (Chronic) Medical History (Updated 07/23/24 @ 19:26 by Dominique Soto MD) Left-sided epistaxis History of DVT (deep vein thrombosis) Hypertension (Unknown) BP better today continue higher dose of metoprolol Surgical History (Updated 12/31/23 @ 13:50 by Mirian Tovar RN) History of heart artery stent Family History Father Coronary heart disease Heart disease Mother Stroke Allergies Grandmother Asthma Grandfather Asthma Other Hypertension No family history of adverse response to anesthesia No family history of bleeding disorder Social History Smoking Status: Never smoker Second Hand Exposure: No; Do You Dip or Chew Tobacco: No; Hx Alcohol Use: No Hx Substance Use: No Preferred Language: Brazilian Communication Ability: Effective Career Services Officer Required: No Beliefs That Will Affect Care: None marital status: Current Living Situation: Family Current Living Situation Comment: Lives with daughter current occupational status: employed current occupation: Retired How many Children do You have: 1 Feels Safe at Home: Yes Assistive Devices: Cane and Walker Allergies Allergies Allergy/AdvReac Type Severity Reaction Status Date / Time imipenem Allergy Severe ANAPHYLAXIS Verified 07/23/24 18:21 Sulfa (Sulfonamide Allergy Severe hives,sob, Verified 07/23/24 18:21 Antibiotics) can take Dyazide daptomycin AdvReac Severe Anaphylaxis Verified 07/23/24 18:21 colchicine AdvReac Intermediate diarrhea Verified 07/23/24 18:21 metoprolol AdvReac Mild fatigue Verified 07/23/24 18:21 zoledronic acid AdvReac Mild NAUSEA AND Verified 07/23/24 18:21 VOMITING Home Meds Home Medications Medication Instructions Recorded Confirmed cholecalciferol (vitamin D3) 50 2,000 unit PO QAM 04/28/18 07/23/24 mcg (2,000 unit) tablet (Vitamin D3) dicyclomine 20 mg tablet 20 mg PO QID PRN IBS 02/12/19 07/23/24 allopurinol 300 mg tablet 450 mg PO QAM 01/23/21 07/23/24 coenzyme Q10 100 mg capsule 100 mg PO DAILY 01/23/21 07/23/24 (CoQ-10) diltiazem HCl 360 mg 360 mg PO QPM 01/23/21 07/23/24 tablet,extended release 24 hr rosuvastatin 5 mg tablet 5 mg PO DAILY 01/23/21 07/23/24 famotidine 20 mg tablet 20 mg PO HS 08/18/22 07/23/24 loperamide 2 mg tablet 2 mg PO QID PRN Diarrhea 08/18/22 07/23/24 pantoprazole 40 mg tablet,delayed 40 mg PO BID 02/24/23 07/23/24 release L.acidophilus-L.plantarum-L.rhamnosus 1 cap PO DAILY 07/23/24 07/23/24 1 billion cell capsule,delay rel (Probiotic Pearls Women's) acetaminophen 500 mg tablet 1,000 mg PO Q6H PRN PAIN/FEVER 07/23/24 07/23/24 (Tylenol Extra Strength) apixaban 2.5 mg tablet (Eliquis) 2.5 mg PO BID 07/23/24 07/23/24 baclofen 10 mg tablet 10 mg PO HS PRN Pain 07/23/24 07/23/24 bisacodyl 5 mg tablet 5 mg PO DAILY PRN Constipation 07/23/24 07/23/24 cyanocobalamin (vitamin B-12) 1,000 mcg PO DAILY 07/23/24 07/23/24 1,000 mcg tablet (Vitamin B-12) furosemide 20 mg tablet (Lasix) 20 mg PO DAILY 07/23/24 07/23/24 gabapentin 100 mg capsule 100 mg PO BID 07/23/24 07/23/24 levothyroxine 125 mcg tablet 125 mcg PO DAILYBB 07/23/24 07/23/24 magnesium oxide 400 mg PO DAILY 07/23/24 07/23/24 ondansetron HCl 4 mg tablet 4 mg PO Q8H PRN NAUSEA/VOMITING 07/23/24 07/23/24 propranolol 10 mg tablet 5 mg PO HS 07/23/24 07/23/24 riboflavin (vitamin B2) 100 mg 400 mg PO DAILY 07/23/24 07/23/24 tablet (Vitamin B-2) Previous Rx's Medication Instructions Recorded nitroglycerin 0.4 mg sublingual 0.4 mg sublingual Q5M chest pain 05/01/18 tablet (Nitrostat) #25 tabs aspirin 81 mg tablet,delayed 81 mg PO HS #0 tabs 05/16/18 release Results & Data (ED) Vital Signs Vital Signs - 24 hr 07/23/24 15:19 07/23/24 15:42 07/23/24 15:42 Temperature 36.5 C Temperature Source Temporal Artery Scan Pulse Rate 122 H 105 H Pulse Rate [Exercises] Pulse Rate [Resting] Pulse Rate [Right Finger] 105 H Pulse Rhythm Regular Pulse Rhythm [Right Finger] Regular Pulse Strength [Right Finger] Normal Respiratory Rate 24 20 20 Respiratory Effort / Characteristics Non-Labored Spontaneous Non-Labored Respiratory Depth Normal Normal Respiratory Pattern Regular Blood Pressure 124/78 Blood Pressure [Right Arm] 139/102 H Blood Pressure Mean 93 Blood Pressure Mean [Right Arm] 114 Blood Pressure Position Sitting Blood Pressure Position [Right Arm] Lying Pulse Oximetry 95 94 94 Pulse Oximetry [Exercises] Pulse Oximetry [Resting] Oxygen Delivery Method Room Air Room Air Room Air Sepsis Recent Fever Within 48 Hours No Sepsis New/Unexplained Change in Mental Status No Sepsis Action Taken by Nursing Physician Notified 07/23/24 15:45 07/23/24 17:24 07/23/24 18:48 Temperature Temperature Source Pulse Rate 108 H Pulse Rate [Exercises] 145 H Pulse Rate [Resting] 106 H Pulse Rate [Right Finger] 75 Pulse Rhythm Pulse Rhythm [Right Finger] Regular Pulse Strength [Right Finger] Normal Respiratory Rate 20 Respiratory Effort / Characteristics Non-Labored Respiratory Depth Normal Respiratory Pattern Regular Blood Pressure Blood Pressure [Right Arm] 129/86 Blood Pressure Mean Blood Pressure Mean [Right Arm] 100 Blood Pressure Position Blood Pressure Position [Right Arm] Lying Pulse Oximetry 97 Pulse Oximetry [Exercises] 91 Pulse Oximetry [Resting] 95 Oxygen Delivery Method Room Air Room Air Sepsis Recent Fever Within 48 Hours Sepsis New/Unexplained Change in Mental Status Sepsis Action Taken by Nursing 07/23/24 19:04 Temperature Temperature Source Pulse Rate Pulse Rate [Exercises] Pulse Rate [Resting] Pulse Rate [Right Finger] 105 H Pulse Rhythm Pulse Rhythm [Right Finger] Regular Pulse Strength [Right Finger] Normal Respiratory Rate 18 Respiratory Effort / Characteristics Non-Labored Respiratory Depth Normal Respiratory Pattern Regular Blood Pressure Blood Pressure [Right Arm] 131/94 Blood Pressure Mean Blood Pressure Mean [Right Arm] 106 Blood Pressure Position Blood Pressure Position [Right Arm] Lying Pulse Oximetry 94 Pulse Oximetry [Exercises] Pulse Oximetry [Resting] Oxygen Delivery Method Room Air Sepsis Recent Fever Within 48 Hours Sepsis New/Unexplained Change in Mental Status Sepsis Action Taken by Nursing Laboratory Data 07/23/24 15:49 07/23/24 15:49 Lab Results 07/23/24 07/23/24 Range/Units 15:49 18:45 WBC 12.48 H (4.8-10.8) K/ul RBC 4.53 (4.20-5.40) M/uL Hgb 14.7 (12.0-16.0) g/dl Hct 44.7 (37.0-47.0) % MCV 98.7 (80.0-100.0) fL MCH 32.5 (25.0-34.0) pg MCHC 32.9 (32.0-36.0) g/dL RDW Std Deviation 54.4 H (36.4-46.3) fL RDW Coeff of Agnes 15.1 H (11.5-14.5) % Plt Count 277 (130-400) K/uL MPV 9.9 (9.4-12.4) fL Immature Gran % (Auto) 0.7 % Neut % (Auto) 60.6 % Lymph % (Auto) 22.1 % [place] % (Auto) 13.6 % Eos % (Auto) 2.1 % Baso % (Auto) 0.9 % Neut # (Auto) 7.56 H (1.40-6.50) K/uL Lymph # (Auto) 2.76 (1.20-3.40) K/uL [place] # (Auto) 1.70 H (0.11-0.59) K/uL Eos # (Auto) 0.26 (0.00-0.50) K/uL Baso # (Auto) 0.11 (0.00-0.20) K/uL Immature Gran # (Auto) 0.09 (0.01-0.20) K/uL VBG pH 7.43 H (7.36-7.41) VBG pCO2 44 (38-50) mmHg VBG pO2 22 mmHg VBG HCO3 29 mmol/L VBG O2 Saturation < 60.0 % VBG Base Excess 4.2 mEq/L Sodium 141 (136-145) mmol/L Potassium 4.3 (3.5-5.1) mmol/L Chloride 104 (98-107) mmol/L Carbon Dioxide 29 (21-32) mmol/L Anion Gap 8 (3-11) BUN 25 H (6-23) mg/dl Creatinine 1.12 (0.6-1.2) mg/dl Est Cr Clr Drug Dosing 39.9 ml/min eGFR 50.02 BUN/Creatinine Ratio 22.3 H (10-20) Glucose 112 H (70-99(Fasting)) mg/dl Calcium 10.3 (8.6-10.3) mg/dl Magnesium 2.0 (1.7-2.4) mg/dl Total Bilirubin 0.4 (0.2-1.0) mg/dl AST 9 L (13-39) U/L ALT 13 (7-52) U/L Alkaline Phosphatase 84 (34-104) U/L Troponin I High Sens 5.9 (0-14) pg/ml B-Natriuretic Peptide 39 (0-100) pg/ml Total Protein 6.8 (6.0-8.3) gm/dl Albumin 4.1 (3.4-5.0) gm/dl Globulin 2.7 (2.5-4.0) gm/dl Albumin/Globulin Ratio 1.5 (0.9-2) Urine Color Yellow Urine Appearance Clear (Clear) Urine pH 6.0 (4.5-7.5) Ur Specific [place] > 1.045 H (1.000-1.030) Urine Protein Negative (Negative) Urine Glucose (UA) Negative (Negative) Urine Ketones Negative (Negative) Urine Blood Trace H (Negative) Urine Nitrite Negative (Negative) Urine Bilirubin Negative (Negative) Urine Urobilinogen Negative (Negative) Ur Leukocyte Esterase Negative (Negative) Urine WBC (Auto) 0-5 (0-5) /hpf Urine RBC (Auto) 3-5 H (0-2) /hpf U Hyaline Cast (Auto) 0-2 (0-2) /lpf U Epithel Cells (Auto) 0-2 (0-2) /hpf Urine Bacteria (Auto) 2+ H (None Seen) Administered Medications Discontinued Medications Ioversol (Optiray 320 125ml) 119 ml IV ONCE ONE Stop: 07/23/24 16:42 Last Admin: 07/23/24 16:42 Dose: 119 ml Documented By: GABRIELLA Imaging Data Radiologist's Impression: Chest X-Ray 07/23/24 15:29 XR chest 1V portable CLINICAL HISTORY: Dyspnea COMPARISON STUDY: 03/08/2023. FINDINGS: pacemaker. Heart size and pulmonary vasculature are normal. No effusion, consolidation, or pneumothorax seen. Impression: No acute findings. ACT 112: Negative or not required by law. Electronically signed by: Celestino Petersen M.D. 07/23/2024 3:55 PM Chest CTA 07/23/24 15:47 EXAMINATION: CT angio chest PE protocol CLINICAL HISTORY: Rule out pulmonary embolism PRIORS: 02/24/2023 TECHNIQUE: Contiguous axial images were obtained through the chest with the use of intravenous contrast. Sagittal and coronal reformations are supplied. FINDINGS: A left implantable cardiac device is present, unchanged. Dental amalgam creates beam hardening artifact diminishing image quality The pulmonary arteries are well opacified with no central or peripheral pulmonary embolism. Chest is well-expanded. No dominant mass or airspace consolidation. Mild hypoventilatory changes at the lung bases. No pleural effusion. Cardiac size mildly enlarged. A large hiatal hernia is present, unchanged. A peripherally calcified left renal cyst is noted, not previously in the [id number]. No acute abnormality in the upper abdomen. No rib fracture or pneumothorax. Moderate osseous demineralization noted. IMPRESSION: 1. No CT evidence of an acute pulmonary embolism or cardiopulmonary process. Electronically signed by Debora Hill 07-23-2024 5:13 PM Discharge Plan Visit Data Chief Complaint: Shortness of Breath/Dyspnea Stated Complaint: HIGH HT RATE, SOB ED Provider: Dominique Soto Discharge Problem: Dyspnea on exertion, Sinus tachycardia, Leukocytosis, Acute UTI (urinary tract infection) Forms Stand Alone Forms: My [facility] Prescriptions Prescriptions: No Action cholecalciferol (vitamin D3) [Vitamin D3] 2,000 unit Tablet 2,000 unit PO QAM nitroglycerin [Nitrostat] 0.4 mg tablet, sublingual 0.4 mg Sublingual Q5M Qty: 25 3RF Rx Instructions: 1 pill under tongue for chest pain. May repeat in 5 min. Call 911 if no relief. aspirin 81 mg Tablet,Delayed Release (Dr/Ec) 81 mg PO HS Qty: 0 0RF dicyclomine 20 mg Tablet 20 mg PO QID PRN (Reason: IBS) diltiazem HCl 360 mg tablet extended release 24 hr 360 mg PO QPM rosuvastatin 5 mg tablet 5 mg PO DAILY coenzyme Q10 [CoQ-10] 100 mg Capsule 100 mg PO DAILY allopurinol 300 mg tablet 450 mg PO QAM pantoprazole 40 mg tablet,delayed release (DR/EC) 40 mg PO BID loperamide 2 mg Tablet 2 mg PO QID PRN (Reason: Diarrhea) famotidine 20 mg Tablet 20 mg PO HS riboflavin (vitamin B2) [Vitamin B-2] 100 mg Tablet 400 mg PO DAILY ondansetron HCl [Zofran] 4 mg Tablet 4 mg PO Q8H PRN (Reason: NAUSEA/VOMITING) cyanocobalamin (vitamin B-12) [Vitamin B-12] 1,000 mcg Tablet 1,000 mcg PO DAILY acetaminophen [Tylenol Extra Strength] 500 mg Tablet 1,000 mg PO Q6H PRN (Reason: PAIN/FEVER) propranolol 10 mg tablet 5 mg PO HS baclofen 10 mg tablet 10 mg PO HS PRN (Reason: Pain) levothyroxine 125 mcg tablet 125 mcg PO DAILYBB furosemide [Lasix] 20 mg Tablet 20 mg PO DAILY Rx Instructions: PER PT "JUST GOT YESTERDAY, NOT STARTED YET". gabapentin 100 mg capsule 100 mg PO BID Rx Instructions: ORDERED TID, PER PT "ONLY BID". bisacodyl 5 mg Tablet 5 mg PO DAILY PRN (Reason: Constipation) Eliquis 2.5 mg tablet 2.5 mg PO BID magnesium oxide 400 mg magnesium Tablet 400 mg PO DAILY Probiotic Pearls Women's 1 billion cell Capsule,Delayed Release(Dr/Ec) 1 cap PO DAILY Referrals Referrals: Rafa Bergman MD [Primary Care Provider] -
--- NOTE | 2024-07-23 15:56 | XRay Report ---
XR chest 1V portable CLINICAL HISTORY: Dyspnea COMPARISON STUDY: 03/08/2023. FINDINGS: pacemaker. Heart size and pulmonary vasculature are normal. No effusion, consolidation, or pneumothorax seen. Impression: No acute findings. ACT 112: Negative or not required by law. Electronically signed by: Celestino Petersen M.D. 07/23/2024 3:55 PM
[2024-07-23 15:59] LABS: Base Excess VBG 4.2 mEq/L; HCO3 VBG 29 mmol/L; Oxygen Saturation VBG < 60.0 %; PCO2 VBG 44 mmHg (38-50); PO2 VBG 22 mmHg; pH VBG 7.43 (7.36-7.41)
[2024-07-23 16:02] LABS: Basophils # (auto) 0.11 K/uL (0.00-0.20); Basophils % (auto) 0.9 %; Eosinophils # (auto) 0.26 K/uL (0.00-0.50); Eosinophils % (auto) 2.1 %; Hematocrit (blood only) 44.7 % (37.0-47.0); Hemoglobin 14.7 g/dl (12.0-16.0); Immature Granulocytes # (auto) 0.09 K/uL (0.01-0.20); Immature Granulocytes % (auto) 0.7 %; Lymphocytes # (auto) 2.76 K/uL (1.20-3.40); Lymphocytes % (auto) 22.1 %; Mean Corpuscular Hemoglobin 32.5 pg (25.0-34.0); Mean Corpuscular Hgb Conc 32.9 g/dL (32.0-36.0); Mean Corpuscular Volume 98.7 fL (80.0-100.0); Mean Platelet Volume 9.9 fL (9.4-12.4); Monocytes % (auto) 13.6 %; Neutrophils # (auto) 7.56 K/uL (1.40-6.50); Neutrophils % (auto) 60.6 %; Platelet Count 277 K/uL (130-400); RDW Coefficient of Variation 15.1 % (11.5-14.5); RDW Standard Deviation 54.4 fL (36.4-46.3); Red Blood Count 4.53 M/uL (4.20-5.40); White Blood Count 12.48 K/ul (4.8-10.8)
[2024-07-23 16:19] LABS: Albumin Globulin Ratio 1.5 (0.9-2); Albumin Level 4.1 gm/dl (3.4-5.0); BUN Creatinine Ratio 22.3 (10-20); Bilirubin,Total 0.4 mg/dl (0.2-1.0); Calcium 10.3 mg/dl (8.6-10.3); Creatinine Clr Calc Pharmacy 39.9 ml/min; Globulin 2.7 gm/dl (2.5-4.0); Potassium 4.3 mmol/L (3.5-5.1); Total Protein 6.8 gm/dl (6.0-8.3)
[2024-07-23 16:27] LABS: Troponin I High Sensitivity 5.9 pg/ml (0-14)
[2024-07-23] MEDS: OPTIRAY 320 125ml IV ONE (16:42)
--- NOTE | 2024-07-23 17:13 | CT Scan Report ---
EXAMINATION: CT angio chest PE protocol CLINICAL HISTORY: Rule out pulmonary embolism PRIORS: 02/24/2023 TECHNIQUE: Contiguous axial images were obtained through the chest with the use of intravenous contrast. Sagittal and coronal reformations are supplied. FINDINGS: A left implantable cardiac device is present, unchanged. Dental amalgam creates beam hardening artifact diminishing image quality The pulmonary arteries are well opacified with no central or peripheral pulmonary embolism. Chest is well-expanded. No dominant mass or airspace consolidation. Mild hypoventilatory changes at the lung bases. No pleural effusion. Cardiac size mildly enlarged. A large hiatal hernia is present, unchanged. A peripherally calcified left renal cyst is noted, not previously in the [id number]. No acute abnormality in the upper abdomen. No rib fracture or pneumothorax. Moderate osseous demineralization noted. IMPRESSION: 1. No CT evidence of an acute pulmonary embolism or cardiopulmonary process. Electronically signed by Debora Hill 07-23-2024 5:13 PM
[2024-07-23 18:58] LABS: Appearance Urine Clear (Clear); Bacteria Urine Automated 2+ (None Seen); Bilirubin Urine Negative (Negative); Blood Urine Trace (Negative); Cast Urine Automated 0-2 /lpf (0-2); Color Urine Yellow; Epithelial Cell Urine Auto 0-2 /hpf (0-2); Glucose Urine UA Negative (Negative); Ketones Urine Negative (Negative); Leukocyte Esterase Urine Negative (Negative); Nitrite Urine Negative (Negative); Protein Urine Negative (Negative); Specific Gravity Urine > 1.045 (1.000-1.030); Urobilinogen Urine Negative (Negative); WBC Urine Automated 0-5 /hpf (0-5)
[2024-07-23] MEDS: cefTRIAXone SODIUM 2,000 MG/50 ML BAG IV STA (19:32)
--- NOTE | 2024-07-23 21:30 | History & Physical Report ---
Date of Service July 23, 2024 Assessment & Plan (1) Dyspnea on exertion: Plan: 79-year-old female with past medical history significant for hypothyroidism, dyslipidemia, prediabetes, nonallergic rhinitis, hypertension, right eye retinal vein occlusion, history of CAD status post stent, tachybradycardia syndrome status post pacemaker, vitamin B12 deficiency, GERD, CKD stage III, osteoporosis, migraines, history of DVT, history of PE, who lives at home with h er daughter and ambulates without support comes because of shortness of breath and tachycardia. Patient states since last 10 to 11 days she is getting progressively short of breath. Any activity making her short of breath and palpitations. At rest she is okay. Patient states she is not able to lie down flat. Denies any chest pain. No fevers. No cough. Vision is okay. Has some runny nose from allergies. No sore throat. No nausea. Appetite is okay. No abdominal pain. Normal bladder movements. She had couple of bleeding episodes from her hemorrhoids in the last 1 week. Hemodynamics are okay. Patient says she also gets on and off bloating and swelling in the legs. Since last 1 week legs are getting more progressively swollen and her home health gave her Lasix which she took couple of doses so far.Patient also says she pulled her right shoulder couple of weeks ago when she carried her granddaughter and took prednisone for 1 week. Shoulder pain is better and baclofen was prescribed for spasms but has not started yet. Dyspnea on exertion And tachycardia No obvious wheezing CTA chest no PE and no acute findings VBG okay EKG and troponins okay Has lower extremity edema Will do a dose of IV Lasix 20mg and continue 20 mg daily Monitor the response Monitor on telemetry Will follow serial enzymes and repeat EKG and echo Consult cardiology in a.m. for further recommendations Possible UTI Empiric Rocephin Will follow the cultures Hypothyroidism On Synthyroid Will check TSH Hypertension on Cardizem, propranolol Will monitor History of DVT and PE On Eliquis History of CAD status post stent On aspirin, propranolol, and statin Tachybradycardia syndrome Status post pacemaker GERD On Protonix and Pepcid History of migraines Propranolol and riboflavin Prediabetes Will follow HbA1c levels Dyslipidemia On statin CKD stage III Presented with creatinine 1.1 Will follow labs DVT prophylaxis On Eliquis Disposition Telemetry Full code. History of Present Illness Chief Complaint: Shortness of breath Primary Care Provider: Rafa Bergman MD 79-year-old female with past medical history significant for hypothyroidism, dyslipidemia, prediabetes, nonallergic rhinitis, hypertension, right eye retinal vein occlusion, history of CAD status post stent, tachybradycardia syndrome status post pacemaker, vitamin B12 deficiency, GERD, CKD stage III, osteoporosis, migraines, history of DVT, history of PE, who lives at home with her daughter and ambulates without support comes because of shortness of breath and tachycardia. Patient states since last 10 to 11 days she is getting progressively short of breath. Any activity making her short of breath and palpitations. At rest she is okay. Patient states she is not able to lie down flat. Denies any chest pain. No fevers. No cough. Vision is okay. Has some runny nose from allergies. No sore throat. No nausea. Appetite is okay. No abdominal pain. Normal bladder movements. She had couple of bleeding episodes from her hemorrhoids in the last 1 week. Hemodynamics are okay. Patient says she also gets on and off bloating and swelling in the legs. Since last 1 week legs are getting more progressively swollen and her home health gave her Lasix which she took couple of doses so far.Patient also says she pulled her right shoulder couple of weeks ago when she carried her granddaughter and took prednisone for 1 week. Shoulder pain is better and baclofen was prescribed for spasms but has not started yet. Past medical history. As mentioned above Past surgical history. Bilateral knee arthroplasty. Cardiac cath. Colon oscopy. IVC filter placement tonsillectomy. Bilateral cataracts. Repair of bladder and vaginal cystocele. Total abdominal hysterectomy with removal of tubes. Social history. Lives with her daughter. No smoking. No alcohol use. No drug use. Family history. Son has asthma. Father had rheumatoid heart disease. Hypertension. OR. Mother had hypertension. Stroke. Thyroid disorder. Allergies Allergy/AdvReac Type Severity Reaction Status Date / Time imipenem Allergy Severe ANAPHYLAXIS Verified 07/23/24 18:21 Sulfa (Sulfonamide Allergy Severe hives,sob, Verified 07/23/24 18:21 Antibiotics) can take Dyazide daptomycin AdvReac Severe Anaphylaxis Verified 07/23/24 18:21 colchicine AdvReac Intermediate diarrhea Verified 07/23/24 18:21 metoprolol AdvReac Mild fatigue Verified 07/23/24 18:21 zoledronic acid AdvReac Mild NAUSEA AND Verified 07/23/24 18:21 VOMITING Home Medications Medication Instructions Recorded Confirmed Type cholecalciferol (vitamin D3) 50 2,000 unit PO QAM 04/28/18 07/23/24 History mcg (2,000 unit) tablet (Vitamin D3) nitroglycerin 0.4 mg sublingual 0.4 mg sublingual Q5M chest pain 05/01/18 07/23/24 Rx tablet (Nitrostat) #25 tabs aspirin 81 mg tablet,delayed 81 mg PO HS #0 tabs 05/16/18 07/23/24 Rx release dicyclomine 20 mg tablet 20 mg PO QID PRN IBS 02/12/19 07/23/24 History allopurinol 300 mg tablet 450 mg PO QAM 01/23/21 07/23/24 History coenzyme Q10 100 mg capsule 100 mg PO DAILY 01/23/21 07/23/24 History (CoQ-10) diltiazem HCl 360 mg 360 mg PO QPM 01/23/21 07/23/24 History tablet,extended release 24 hr rosuvastatin 5 mg tablet 5 mg PO DAILY 01/23/21 07/23/24 History famotidine 20 mg tablet 20 mg PO HS 08/18/22 07/23/24 History loperamide 2 mg tablet 2 mg PO QID PRN Diarrhea 08/18/22 07/23/24 History pantoprazole 40 mg tablet,delayed 40 mg PO BID 02/24/23 07/23/24 History release L.acidophilus-L.plantarum-L.rhamnosus 1 cap PO DAILY 07/23/24 07/23/24 History 1 billion cell capsule,delay rel (Probiotic Pearls Women's) acetaminophen 500 mg tablet 1,000 mg PO Q6H PRN PAIN/FEVER 07/23/24 07/23/24 History (Tylenol Extra Strength) apixaban 2.5 mg tablet (Eliquis) 2.5 mg PO BID 07/23/24 07/23/24 History baclofen 10 mg tablet 10 mg PO HS PRN Pain 07/23/24 07/23/24 History bisacodyl 5 mg tablet 5 mg PO DAILY PRN Constipation 07/23/24 07/23/24 History cyanocobalamin (vitamin B-12) 1,000 mcg PO DAILY 07/23/24 07/23/24 History 1,000 mcg tablet (Vitamin B-12) furosemide 20 mg tablet (Lasix) 20 mg PO DAILY 07/23/24 07/23/24 History gabapentin 100 mg capsule 100 mg PO BID 07/23/24 07/23/24 History levothyroxine 125 mcg tablet 125 mcg PO DAILYBB 07/23/24 07/23/24 History magnesium oxide 400 mg PO DAILY 07/23/24 07/23/24 History ondansetron HCl 4 mg tablet 4 mg PO Q8H PRN NAUSEA/VOMITING 07/23/24 07/23/24 History propranolol 10 mg tablet 5 mg PO HS 07/23/24 07/23/24 History riboflavin (vitamin B2) 100 mg 400 mg PO DAILY 07/23/24 07/23/24 History tablet (Vitamin B-2) Past Med/Surg History Problem List (Updated 07/23/24 @ 22:05 by Background Daemon) Acute UTI (urinary tract infection) (Acute) Leukocytosis (Acute) Sinus tachycardia (Acute) Dyspnea on exertion (Acute) Cardiac pacemaker in situ Orthostatic dizziness Sinus tachycardia Palpitations Acute dyspnea (Acute) Weakness Branch retinal vein occlusion, right eye 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 Acute endophthalmitis of right eye Gout flare Diverticulitis large intestine (Acute) Gout Status post biventricular pacemaker Chest pain (Acute) Right-sided epistaxis Asthma exacerbation, mild Hiatal hernia Elevated troponin (Acute) Dyspnea on exertion (Acute) Leukocytosis (Acute) CAD in [place] artery (Chronic) Elevated LFTs (Acute) Osteoporosis (Chronic) 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 (Chronic) 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) History of non-ST elevation myocardial infarction (NSTEMI) (Chronic) Vitamin B12 deficiency (Chronic) History of cardiac cath (Chronic) CAD (coronary artery disease) DVT prophylaxis Ischemic cardiomyopathy (Chronic) GERD (gastroesophageal reflux disease) (Chronic) History of pulmonary embolism (Chronic) Dyslipidemia (Chronic) Hypothyroidism (Chronic) Medical History (Updated 07/23/24 @ 22:05 by Background Daemon) Left-sided epistaxis History of DVT (deep vein thrombosis) Hypertension (Unknown) BP better today continue higher dose of metoprolol Surgical History (Updated 12/31/23 @ 13:50 by Mirian Tovar RN) History of heart artery stent Family History Father Coronary heart disease Heart disease Mother Stroke Allergies Grandmother Asthma Grandfather Asthma Other Hypertension No family history of adverse response to anesthesia No family history of bleeding disorder Social History Smoking Status: Unknown if ever smoked Second Hand Exposure: No; Do You Dip or Chew Tobacco: No; Hx Alcohol Use: No Hx Substance Use: No Preferred Language: Romanian Communication Ability: Effective [employer] Specialist Required: No Beliefs That Will Affect Care: None marital status: Current Living Situation: Family Current Living Situation Comment: lives with daughter current occupational status: employed current occupation: Retired How many Children do You have: 1 Other Information That Helps Us Care for You: No Feels Safe at Home: Yes Safety Concerns: Feels Safe At This Time Assistive Devices: None Review of Systems Review of Systems: All systems reviewed & are unremarkable except as noted in HPI & below Physical Exam Physical Exam: General- Not in distress Head- atraumatic Eyes- PERRL. ENT- oropharynx clear Neck- supple, no JVD. Lungs- clear to auscultation no wheezing or crackles. Heart- regular rate and rhythm; no murmur, no gallop. Abdomen- normal bowel sounds, soft, nontender, no distension Extremities- Lower extremity edema present, No erythema seen . Neuro- alert, oriented PERRL, no facial palsy; no dysarthria; moves extremities. Results & Data Results & Data Vital Signs (Past 12 Hours) Vital Signs Temp Pulse Pulse Pulse Pulse Resp BP 07/23/24 21:01 109 H 20 07/23/24 20:02 108 H 07/23/24 19:04 105 H 18 07/23/24 18:48 145 H 106 H 07/23/24 17:24 75 20 07/23/24 15:45 108 H 07/23/24 15:42 105 H 20 07/23/24 15:42 105 H 20 07/23/24 15:19 36.5 C 122 H 24 124/78 BP Pulse Ox Pulse Ox Pulse Ox O2 Del Method 07/23/24 21:01 159/102 H 96 Room Air 07/23/24 20:02 07/23/24 19:04 131/94 94 Room Air 07/23/24 18:48 91 95 Room Air 07/23/24 17:24 129/86 97 Room Air 07/23/24 15:45 07/23/24 15:42 94 Room Air 07/23/24 15:42 139/102 H 94 Room Air 07/23/24 15:19 95 Room Air Diagnostic Findings Laboratory Results WBC 12.48 K/ul (4.8-10.8) H 07/23/24 15:49 RBC 4.53 M/uL (4.20-5.40) 07/23/24 15:49 Hgb 14.7 g/dl (12.0-16.0) 07/23/24 15:49 Hct 44.7 % (37.0-47.0) 07/23/24 15:49 MCV 98.7 fL (80.0-100.0) 07/23/24 15:49 MCH 32.5 pg (25.0-34.0) 07/23/24 15:49 MCHC 32.9 g/dL (32.0-36.0) 07/23/24 15:49 RDW Std Deviation 54.4 fL (36.4-46.3) H 07/23/24 15:49 RDW Coeff of Agnes 15.1 % (11.5-14.5) H 07/23/24 15:49 Plt Count 277 K/uL (130-400) 07/23/24 15:49 MPV 9.9 fL (9.4-12.4) 07/23/24 15:49 Immature Gran % (Auto) 0.7 % 07/23/24 15:49 Neut % (Auto) 60.6 % 07/23/24 15:49 Lymph % (Auto) 22.1 % 07/23/24 15:49 [place] % (Auto) 13.6 % 07/23/24 15:49 Eos % (Auto) 2.1 % 07/23/24 15:49 Baso % (Auto) 0.9 % 07/23/24 15:49 Neut # (Auto) 7.56 K/uL (1.40-6.50) H 07/23/24 15:49 Lymph # (Auto) 2.76 K/uL (1.20-3.40) 07/23/24 15:49 [place] # (Auto) 1.70 K/uL (0.11-0.59) H 07/23/24 15:49 Eos # (Auto) 0.26 K/uL (0.00-0.50) 07/23/24 15:49 Baso # (Auto) 0.11 K/uL (0.00-0.20) 07/23/24 15:49 Immature Gran # (Auto) 0.09 K/uL (0.01-0.20) 07/23/24 15:49 VBG pH 7.43 (7.36-7.41) H 07/23/24 15:49 VBG pCO2 44 mmHg (38-50) 07/23/24 15:49 VBG pO2 22 mmHg 07/23/24 15:49 VBG HCO3 29 mmol/L 07/23/24 15:49 VBG O2 Saturation < 60.0 % 07/23/24 15:49 VBG Base Excess 4.2 mEq/L 07/23/24 15:49 Sodium 141 mmol/L (136-145) 07/23/24 15:49 Potassium 4.3 mmol/L (3.5-5.1) 07/23/24 15:49 Chloride 104 mmol/L (98-107) 07/23/24 15:49 Carbon Dioxide 29 mmol/L (21-32) 07/23/24 15:49 Anion Gap 8 (3-11) 07/23/24 15:49 BUN 25 mg/dl (6-23) H 07/23/24 15:49 Creatinine 1.12 mg/dl (0.6-1.2) 07/23/24 15:49 Est Cr Clr Drug Dosing 39.9 ml/min 07/23/24 15:49 eGFR 50.02 07/23/24 15:49 BUN/Creatinine Ratio 22.3 (10-20) H 07/23/24 15:49 Glucose 112 mg/dl (70-99(Fasting)) H 07/23/24 15:49 Calcium 10.3 mg/dl (8.6-10.3) 07/23/24 15:49 Magnesium 2.0 mg/dl (1.7-2.4) 07/23/24 15:49 Total Bilirubin 0.4 mg/dl (0.2-1.0) 07/23/24 15:49 AST 9 U/L (13-39) L 07/23/24 15:49 ALT 13 U/L (7-52) 07/23/24 15:49 Alkaline Phosphatase 84 U/L (34-104) 07/23/24 15:49 Troponin I High Sens 5.9 pg/ml (0-14) 07/23/24 15:49 B-Natriuretic Peptide 39 pg/ml (0-100) 07/23/24 15:49 Total Protein 6.8 gm/dl (6.0-8.3) 07/23/24 15:49 Albumin 4.1 gm/dl (3.4-5.0) 07/23/24 15:49 Globulin 2.7 gm/dl (2.5-4.0) 07/23/24 15:49 Albumin/Globulin Ratio 1.5 (0.9-2) 07/23/24 15:49 Urine Color Yellow 07/23/24 18:45 Urine Appearance Clear (Clear) 07/23/24 18:45 Urine pH 6.0 (4.5-7.5) 07/23/24 18:45 Ur Specific [place] > 1.045 (1.000-1.030) H 07/23/24 18:45 Urine Protein Negative (Negative) 07/23/24 18:45 Urine Glucose (UA) Negative (Negative) 07/23/24 18:45 Urine Ketones Negative (Negative) 07/23/24 18:45 Urine Blood Trace (Negative) H 07/23/24 18:45 Urine Nitrite Negative (Negative) 07/23/24 18:45 Urine Bilirubin Negative (Negative) 07/23/24 18:45 Urine Urobilinogen Negative (Negative) 07/23/24 18:45 Ur Leukocyte Esterase Negative (Negative) 07/23/24 18:45 Urine WBC (Auto) 0-5 /hpf (0-5) 07/23/24 18:45 Urine RBC (Auto) 3-5 /hpf (0-2) H 07/23/24 18:45 U Hyaline Cast (Auto) 0-2 /lpf (0-2) 07/23/24 18:45 U Epithel Cells (Auto) 0-2 /hpf (0-2) 07/23/24 18:45 Urine Bacteria (Auto) 2+ (None Seen) H 07/23/24 18:45 Impressions Chest X-Ray 07/23/24 15:29 XR chest 1V portable CLINICAL HISTORY: Dyspnea COMPARISON STUDY: 03/08/2023. FINDINGS: pacemaker. Heart size and pulmonary vasculature are normal. No effusion, consolidation, or pneumothorax seen. Impression: No acute findings. ACT 112: Negative or not required by law. Electronically signed by: Celestino Petersen M.D. 07/23/2024 3:55 PM Chest CTA 07/23/24 15:47 EXAMINATION: CT angio chest PE protocol CLINICAL HISTORY: Rule out pulmonary embolism PRIORS: 02/24/2023 TECHNIQUE: Contiguous axial images were obtained through the chest with the use of intravenous contrast. Sagittal and coronal reformations are supplied. FINDINGS: A left implantable cardiac device is present, unchanged. Dental amalgam creates beam hardening artifact diminishing image quality The pulmonary arteries are well opacified with no central or peripheral pulmonary embolism. Chest is well-expanded. No dominant mass or airspace consolidation. Mild hypoventilatory changes at the lung bases. No pleural effusion. Cardiac size mildly enlarged. A large hiatal hernia is present, unchanged. A peripherally calcified left renal cyst is noted, not previously in the [id number]. No acute abnormality in the upper abdomen. No rib fracture or pneumothorax. Moderate osseous demineralization noted. IMPRESSION: 1. No CT evidence of an acute pulmonary embolism or cardiopulmonary process. Electronically signed by Debora Hill 07-23-2024 5:13 PM ECG Additional Comments: ECG. Sinus tachycardia rate of 107. Possible left atrial enlargement. Nonspecific T wave abnormality. Code Status & VTE Plan VTE Prophylaxis Plan VTE Prophylaxis will be ordered: Yes
[2024-07-23] MEDS: APIXABAN 2.5 MG TAB PO STA (21:36)
[2024-07-23] MEDS: dilTIAZem HCL 180 MG CAPCR PO STA (21:36)
[2024-07-23] MEDS: PROPRANOLOL HCL 10 MG TAB PO STA (21:36)
[2024-07-23] MEDS: PANTOprazole 40 MG TAB PO STA (21:36)
[2024-07-23] MEDS: FAMOTIDINE 20 MG TAB PO ONE (21:36)
[2024-07-23] MEDS: ASPIRIN 81 MG ECTAB PO STA (21:36)
[2024-07-23] MEDS ORDERED: POLYETHYLENE (MIRALAX) 17 GM PACK PO PRN (22:06)
[2024-07-23] MEDS ORDERED: BACLOFEN 10 MG TAB PO PRN (22:06)
[2024-07-23] MEDS ORDERED: NITROGLYCERIN SL 0.4 MG/TAB TAB SL PRN (22:06)
[2024-07-23] MEDS ORDERED: DICYCLOMINE HCL 20 MG TAB PO PRN (22:06)
[2024-07-23] MEDS ORDERED: bisacodyL 5 MG TABEC PO PRN (23:06)
--- OUTSIDE RECORDS SUMMARY | 2024-07-23 23:56 | External Medical Summary | Summary of Care ---
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 Name Role Phone Rafa Bergman MD Primary Care Provide r Encounter Details Date Type Department Care Team (Late st Contact Info) Description 07/22/2024 1:30 PM EDT [facility] [address] [place] [address] Olinda Briggs, CHRISTINA [address] [place] [phone] Tachy-chintan syndrome (HCC)* Allergies Active Allergy Reactions Criticality Noted Date Comments Colchicine Diarrhea 06/16/2018 Daptomycin 01/05/2015 Shortness of breath Imipenem Edema airway High 01/05/2015 Metoprolol Low 01/23/2021 Other reaction(s): fatigue Zoledronic Acid 04/24/2012 Myalgias, fever, chills, vomiting x 2 days Sulfa Antibiotics 12/22/2002 Bactrim--itchy all over, eyes swollen documented as of this encounter (statuses as of 07/23/2024) Medications ASPIRIN 81 MG PO TABS Take by mouth at bedtime. Active Acetaminophen 500 MG Oral Tablet Take 2 Tablets by mouth every 6 hours as needed for Pain. Active CoQ10 100 MG Oral Capsule Take 1 Capsule by mouth in the morning. Active Loperamide HCl 2 MG Oral Capsule (Imodium)Indicat ions:Diarrhea, unspecified type take 1 capsule 4 times daily as needed for loose stool 30 Capsule 3 3 Active Dicyclomine HCl 10 MG Oral Capsule (Bentyl)Indicati ons:Diarrhea, unspecified type,Irritable bowel syndrome with both constipation and diarrhea take 1 capsule as needed in the morning, 1 capsules as needed at noon, 1 capsule as needed in the evening and 1 capsule as needed before bedtime for pain or gas. take for abdominal pain. 120 Capsule 3 Active Cholecalciferol 50 MCG (2000 UT) Oral Capsule Take 1 Capsule by mouth in the morning. Active Fortify Probiotic Womens Oral Capsule Delayed Release Take 1 Capsule by mouth in the morning. Active Bisacodyl 5 MG Oral Tablet Delayed Release (Dulcolax) Take 1 Tablet by mouth daily as needed for Constipation. 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 180 Tablet 3 06/19/2024 2:50 PM EDT 4 Active Rosuvastatin Calcium 5 MG Oral Tablet (Crestor)Indicat ions:Dyslipidemi a, goal LDL below 70,Coronary artery disease involving crow coronary artery of crow heart without angina pectoris TAKE ONE TABLET BY MOUTH IN THE MORNING 90 Tablet 3 05/25/2024 7:44 AM EST 4 Active Levothyroxine Sodium 125 MCG Oral Tablet (Levoxyl)Indicat ions:Hypothyroid ism (acquired) Take 1 Tablet by mouth daily first thing in the morning. (at least 30 min prior to breakfast or other meds) 90 Tablet 2 05/29/2024 11:01 AM EST 4 Active Ondansetron HCl 4 MG Oral TabletIndication s:Nausea Take 1 Tablet by mouth every 8 hours as needed for Nausea. 30 Tablet 4 Active Famotidine 20 MG Oral Tablet (Pepcid) Take 1 Tablet by mouth at bedtime. 90 Tablet 3 06/23/2024 9:29 AM EDT 4 Active dilTIAZem HCl ER 360 MG Oral Tablet Extended Release 24 HourIndications: HTN, goal below 140/90,Tachy-bra dy syndrome (HCC) Take 1 Tablet by mouth in the morning. 90 Tablet 2 05/06/2024 11:42 AM EST 4 Active Additional Information Patient taking differently:1 Tablet Oral Daily(AM),Takes in the evening, Reported on 07/06/2024 Riboflavin 400 MG Oral Tablet Take 1 Tablet by mouth in the morning. 90 Tablet 3 04/17/2024 1:21 PM EST 5 Active Magnesium Oxide -Mg Supplement 400 MG Oral Capsule (Magnesium Extra Strength) Take 1 capsule by mouth in the morning. 90 Capsule 3 04/17/2024 1:21 PM EST 5 Active Allopurinol 300 MG Oral Tablet (Zyloprim) TAKE 1 & 1/2 TABLETS BY MOUTH EVERY DAY 135 Tablet 05/14/2024 5:55 PM EST 5 Active Spironolactone 25 MG Oral Tablet (Aldactone) Take 0.5 Tablets by mouth in the morning. 5 Active Propranolol HCl 10 MG Oral Tablet (Inderal)Indicat ions:Sinus tachycardia,Tach y-chintan syndrome (HCC),Coronary artery disease involving crow coronary artery of crow heart without angina pectoris,Presenc e of cardiac pacemaker,Palpit ations,HTN, goal below 140/90 Take 0.5 Tablets by mouth at bedtime. 5 Active Nortriptyline HCl 10 MG Oral Capsule (Pamelor) One capsule at bedtime every other night for 2 weeks then one orally at bedtime every night 30 Capsule 5 5 Active Vitamin B-12 1000 MCG Oral Tablet (Cyanocobalamin) Take 1 Tablet by mouth in the morning. 100 Tablet 3 07/13/2024 6:43 AM EDT 5 Active predniSONE 10 MG Oral Tablet (Deltasone)Indic ations:Pain in joint of right shoulder Take 5 tabs for 2 days, 4 tabs for 2 days, 3 tabs for 2 days, 2 tabs for 2 days 1 tab for 2 days 30 Tablet 5 Active Gabapentin 100 MG Oral Capsule (Neurontin) Take 1 Capsule by mouth 3 times a day. 270 Capsule 07/13/2024 6:43 AM EDT 5 Active Pantoprazole Sodium 40 MG Oral Tablet Delayed Release (Protonix) Take 1 Tablet by mouth in the morning and 1 Tablet in the evening. 90 Tablet 3 07/22/2024 10:47 AM EDT 5 Active Furosemide 20 MG Oral Tablet (Lasix) Take 1 Tablet by mouth in the morning. 5 07/30/19 Active Hospital, Clinic, or Other Facility Administered Medication Ordered Dose Route Frequency Start Date End Date Status ROPivacaine (Naropin) inj 1.5 mgIndications: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 1.5 mg IJ PRN 11/07/2023 11/06/2024 Active Aflibercept (Eylea) intraviteal prefilled syringe 2 mgIndications: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 2 mg IZ PRN 11/07/2023 11/06/2024 Active Faricimab-svoa (Vabysmo) prefilled syringe inj 6 mgIndications: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 6 mg IZ PRN 03/18/2024 03/18/2025 Active documented as of this encounter (statuses as of 07/23/2024) Active Problems Problem Noted Date Diagnosed Date Migraine without aura and wi thout status migrainosus, not intractable 04/16/2024 Assessment & Plan (06/23/2024 3:37 PM EDT): Gabapentin bid with improvement of symptoms Assessment & Plan (04/16/2024 4:06 PM EST): Continue magnesium and riboflavin Reports gabapentin was offered by neurology, will reach out to neurology regarding starting 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 04/16/2024 Nevus of 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 History of WV (myocardial infarction) 11/27/2022 Assessment & Plan (04/16/2024 4:06 PM EST): history of NSTEMI status post AMIE to LAD (culprit) and RCA, 04/28/2018 Currently in cardiac rehab History of pulmonary embolism 11/27/2022 Assessment & Plan (11/21/2023 5:30 PM EDT): Continues on eliquis S/P placement of cardiac pacemaker 10/01/2022 Tachy-chintan syndrome 09/10/2022 Assessment & Plan (04/16/2024 4:06 PM EST): status post pacemaker implantation 08/19/2019 Gastro-esophageal reflux dis ease with esophagitis, without bleeding 12/15/2021 Assessment & Plan (11/21/2023 5:33 PM EDT): Increase protonix to bid Prediabetes 05/15/2021 Overview: Per Prediabetes protocol Chronic kidney disease, stage 3a 03/13/2021 Overview: Per CKD protocol History of basal cell carcinoma 07/06/2020 Hypertensive kidney disease with stage 3a chronic kidney disease 02/08/2020 Overview: Per CKD protocol - Per CKD protocol Assessment & Plan (06/23/2024 3:37 PM EDT): BP stable, monitoring with current health Continue diltiazem, propanolol Recently restarted spironolactone 12.5mg daily, monitor BMP Assessment & Plan (04/16/2024 4:06 PM EST): BP stable Continue propanolol and diltiazem Assessment & Plan (01/24/2024 4:39 PM EDT): Symptomatic hypotension at times Will hold spironolactone for now, encourage compression stockings for edema Continue propanolol and verapamil Assessment & Plan (11/21/2023 5:30 PM EDT): BP stable on verapamil, aldactone, propanolol S/P angioplasty with stent 11/27/2018 Atherosclerosis of crow co ronary artery of crow heart without angina pectoris 07/08/2018 Overview (11/21/2023): history of NSTEMI status post AMIE to LAD (culprit) and RCA, 04/28/2018 Assessment & Plan (06/23/2024 3:37 PM EDT): Follows with cardiology Continue statin Assessment & Plan (01/24/2024 4:40 PM EDT): Cardiac rehab at [facility] 2x week Assessment & Plan (11/21/2023 5:32 PM EDT): Continue cardiology f/u Continue statin Has prn ntg, but has not needed Arthritis of left ankle 11/06/2017 Deviated nasal septum 10/14/2017 Rhinitis, nonallergic 08/13/2017 History of DVT (deep vein thrombosis) 01/02/2017 Overview (01/02/2017): Not on anticoagulation due to internal bleeding. Both DVT were provoked. H/O nonmelanoma skin cancer 01/02/2017 Vitamin B12 deficiency 05/12/2014 Retinal vein occlusion of right eye 10/28/2013 Assessment & Plan (04/16/2024 4:06 PM EST): Follows with ophthalmology Hypothyroidism (acquired) 09/15/2013 Assessment & Plan (04/16/2024 4:06 PM EST): Continue current synthroid Repeat labs scheduled Dyslipidemia, goal LDL below 70 09/15/2013 Assessment & Plan (04/16/2024 4:06 PM EST): Ldl at goal, continue statin Assessment & Plan (01/24/2024 4:40 PM EDT): Continue statin Assessment & Plan (11/21/2023 5:31 PM EDT): LDL at goal, continue statin HTN, goal below 140/90 03/02/2013 Senile osteoporosis 05/14/2008 Assessment & Plan (04/16/2024 4:06 PM EST): Continue prolia documented as of this encounter (statuses as of 07/23/2024) Resolved Problems Problem Noted Date Diagnosed Date Resolved Date Purulent endophthalmitis of right eye 01/03/2023 11/08/2023 Other pulmonary embolism wit h acute cor pulmonale 10/01/2022 04/26/2023 Overview (04/26/2023): history Medical home patient encounter 09/13/2022 11/08/2023 Atherosclerosis of coronary artery of crow heart without angina pectoris 09/10/2022 10/31/2022 Hypothyroidism [...] (non-ST elevated myoc ardial infarction) 05/01/2018 06/09/2018 Recurrent sinus infections 08/13/2017 0 11/08/2023 Degenerative disc disease, cervical 05/18/2016 01/02/2017 Kidney [...] 09/15/2013 08/13/2017 ADVANCE DIRECTIVE INFORMATION 04/23/2012 01/02/2017 Overview (11/21/2004): No, Advance Directive brochure given to patient at prior appointment. Kidney disease, chronic, sta ge III (GFR 30-59 ml/min) 10/20/2009 09/15/2013 Overview (10/20/2009): Per CKD Protocol, #1 Intermittent asthma with rel iever use up to twice per week 10/18/2009 01/02/2017 Pulmonary embolism and infarction 08/30/2009 01/02/2017 Pap smear of vagina with ASC-US 07/20/2009 05/11/2014 Overview (01/02/2011): 05/10 - LGSIL 07/08 colpo - bx = fibroisis 11/07 - ASCUS + HPV 07/09 - ASCUS + HPV Colpo 08/08 - c/w HPV repeat 6 months Pap 06/27/10 - wnl Pap 12/10 - wnl Dyslipidemia, goal to be determined 03/08/2009 01/20/2010 Overview (03/08/2009): Per Lipid Taxonomy. 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 Sebaceous hyperplasia, Rt forehead 10/05/97 01/28/2002 09/15/2013 Irritated, inflamed seborrhe ic keratosis, Above rt angle of mandible 04/09/01 01/28/20022013 Major depressive disorder 01/12/2002 Overview (01/22/2017): ICD-10 update of inactive term Intradermal Nevus,right upper arm 11/12/2001 09/15/2013 new lesion- rt shoulder 11/03/200108/30 Prolapse of vaginal peterson 10/28/2000 Overview (07/05/2015): ICD-10 update of inactive term Viral warts 09/15/2013 Overview (12/31/2016): ICD-10 update of inactive term Hypothyroidism 09/15/2013 Asthma with severity to be determined 08/27/2008 Overview (07/11/2015): ICD-10 update of inactive term Mixed dyslipidemia 9 Overview (03/08/2009): Per Lipid Taxonomy. BENIGN PARXYSMAL VERTIGO DIVERTICULITIS OF COLON 08/30 Primary osteoarthritis of knee 01/02/2017 Derangement of meniscus 08/30 Presence of vena cava filter 02/28/2015 Atherosclerotic heart diseas e of crow coronary artery with angina pectoris 11/2018 CKD (chronic kidney disease) stage 2, GFR 60-89 ml/min 03/12/2019 documented as of this encounter (statuses as of 07/23/2024) Immunizations Name Administration Dates Next Due COVID-19 mRNA, LNP-s, No Pre serve, 2-Dose Series (Moderna) 02/05/2022,02/28/2021,05/28/2020,04/02 COVID-19, mRNA, LNP-s, PF, B ooster, 100mcg/0.5mg (Moderna) 08/02/2021,02/07/2021 Hepatitis B, 20+ yrs 03/18/2009,06/14/2008,05/1211/14/2008 Pneumococcal Conjugate Vacc, 13 Valent (Prevnar) 03/28/2015 Pneumococcal Polysaccharide PPV23 (Pneumovax) 03/20/2010 Season Influenza, Quad, PF, Adjuvanted, 65+ Yrs, IM (FLUAD) 01/30/2022 Seasonal Influenza Vac., MDV , IM, 0.5 mL (Fluzone) 02/21/2015,12/25/2013,12/31/2012,11/30,01/17/2011,01/20/2010,12/31/19,02/19/2008,02/06/2007,02/05/2006 Seasonal Influenza, High Dos e, Trivalent, PF, IM (Fluzone HD) 12/21/2016,04/05/2016 Seasonal Influenza, PF, 6 M & above, IM , (FluLaval or Fluzone) 12/31/2019,02/17/2019,12/31/2017 Seasonal Influenza, Quadriva lent Hd (Fluzone Hd) 04/19/2023,12/28/2020 TDAP (age 10 and older)(Boostrix) 10/01/2023 TDAP, Age 7 and older, IM (Adacel) 11/03/2007 Varicella Zoster Vaccine Ronan lt (Zostavax) 11/04/2012 Zoster Vaccine Recombinant (Shingrix) 06/12/2021 ,02/28/2021 [...] 07/17/2021 Hunger Vital Sign Answer Date Recorded Within the past 12 months, y ou worried that your food would run out before you got the money to buy more. Never true 02/06/20 24 Within the past 12 months, t he food you bought just didn't last and you didn't have money to get more. Never true 02/06/2024 Childcare Answer Date Recorded Do you feel overwhelmed with taking care of a child, family member or friend? No 02/06/2024 Does your family need help f inding childcare? (Household - for ages 0-17 years) Not on file 02/06/2024 Clothing Answer Date Recorded Have you been unable to get clothing when it was really needed? No 02/06/2024 Is your family able to get c lothes or diapers when needed? (Household - for ages 0-17 years) Not on file 02/06/2024 Personal Safety Answer Date Recorded Do you feel unsafe or have concerns for your saf ety? No 02/06/2024 Do you have concerns for you r family's safety? (Household - for ages 0-17 years) Not on file 02/06/2024 Utilities Answer Date Recorded Do you have trouble paying y our heating, water, or electric bill? No 02/06/2024 Is your family able to pay t he heat, water, or electric bill? (Household - for ages 0-17 years) Not on file 02/06/2024 Does your family have access to good internet? (Household - for ages 0-17 years) Not on file 02/06/2024 Employment Status Answer Date Recorded Are you unemployed or without regular income? No 02/06/2024 Does the household have a re lar source of income? (Household - for ages 0-17 years) Not on file 02/06/2024 Social Connections Answer Date Recorded How often do you feel lonely or isolated from th ose around you? Never 02/06/2024 Financial Resource Strain Answer Date R ecorded Do you have any trouble payi ng for your medications, or do you think you might in the future? No 02/06/2024 Does your family have troubl e paying for medicine? (Household - for ages 0-17 years) Not on file 02/06/2024 Transportation Needs Answer Date Record ed Do you have trouble getting a ride to medical visits or work? (Adult - for ages 18 years and over) Not on file 02/06/2024 Does your family have a hard time getting a ride to doctors visits? (Household - for ages 0-17 years) Not on file 02/06/2024 Has lack of transportation k ept you from medical appointments, meetings, work, or from getting things needed for daily living? Check all that apply. No 02/06/2024 Do you (or your family) have trouble finding or paying for a ride (transportation)? (Household - for ages 0-17 years) Not on file 02/06/2024 Housing Stability Answer Date Recorded Do you currently live in a s helter or have no steady place to sleep at night? No 02/06/2024 Do you think you are at risk of becoming homeless? (Adult - for ages 18 years and over) Not on file 02/06/2024 Does your family worry about paying for your home or becoming homeless? (Household - for ages 0-17 years) Not on file 1 04/07/2023 Are you homeless or worried that you might be in the future? No 02/06/2024 Are you (or your family) sulaiman eless or worried that you might be in the future? (Household - for ages 0-17 years) Not on file Food Insecurity Answer Date Recorded Do you need food for this week? No 02/06/2024 Are you able to get enough f ood for your family? (Household - for ages 0-17 years) Not on file 02/06/2024 Does your family need food t his week? (Household - for ages 0-17 years) Not on file 02/06/2024 Do you always have enough fo od for your family? (Household - for ages 0-17 years) Not on file 02/06/2024 Food Insecurity Answer Date Recorded Within the past 12 months, y ou worried that your food would run out before you got the money to buy more. Never true 02/06/20 24 Within the past 12 months, t he food you bought just didn't last and you didn't have money to get more. Never true 02/06/2024 Do you need food for this week? 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 on file Not on file 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 e [employer] BO[employer]ER Not on file Not on file Not on file documented as of this encounter Last Filed Vital Signs Vital Sign Reading Time Taken Comments Blood Pressure 120/80 07/22/2024 2:28 PM EDT Pulse 104 07/22/2024 2:28 PM EDT Temperature 36.5 °C (97.7 °F) 07/22/2024 2:28 PM ED T Respiratory Rate 18 07/22/2024 2:28 PM EDT Oxygen Saturation 93% 07/22/2024 2:28 PM EDT Inhaled Oxygen Concentration - - Weight - - Height - - Body Mass Index - - documented in this encounter Progress Notes * Olinda Briggs RN - 07/22/2024 2:25 PM EDT Images from the original note were not included. Current Concerns: Patient seen for follow up- hx of hypothyroidism, HLD, HTN, hx of WV, CAD s/p stent, GERD, CKD III,osteoporosis, hx of DVT/PE x2 (2009, 2022), Renal cyst, tachy-chintan syndrome s/p dual chamber pacemaker, prediabetes, macular degeneration, R retinal vein occlusion, B/L TKA, Gout Phone call 07/17 report increased sob with activity, Increased heart rate 120-130's. Recent history of left pleural effusion- chest xray negative for acute pathology. Nortriptyline discontinued by neurology 07/19(started 07/06 every other night for 2 weeks then every night-persistent headaches) Upon arrival today- greeted at door- sob with ambulation- approximately 3-4 minutes to return to baseline at rest. Abdominal bloating noted. Nonpitting edema to BLE Per cardiology- would like patient to have EKG. VS wnl Lungs clear bilaterally Voiding without difficulty Bowels wnl Appetite good Taking fluids Reinforced low na diet TT to Leon Live PA-C Start Lasix 20mg daily until next provider appointment next Saturday EKG ordered- appointment at [facility] tomorrow. Scheduled with Mykel Orellana PA-C 07/27 Patient aware of above. Voices understanding. Synopsis SmartLink Most Recent Value Past ~8 weeks 07/22/2024 14:46 06/24/2024 06/23/2024 Remote Monitoring Intermittent Vitals Systolic BP 135 mm/Hg CH:VITAL_READING_TYPE=SPOT CH:PERIPHERAL_BRAND=[facility] 06/24/2024 135 mm/Hg CH:VITAL_READING_TYPE=SPOT CH:PERIPHERAL_BRAND=[facility] 148 mm/Hg CH:VITAL_READING_TYPE=SPOT CH:PERIPHERAL_BRAND=[facility] Diastolic BP 78 mm/Hg CH:VITAL_READING_TYPE=SPOT CH:PERIPHERAL_BRAND=[facility] 06/24/2024 78 mm/Hg CH:VITAL_READING_TYPE=SPOT CH:PERIPHERAL_BRAND=[facility] 88 mm/Hg CH:VITAL_READING_TYPE=SPOT CH:PERIPHERAL_BRAND=[facility] Pulse 88 bpm CH:VITAL_READING_TYPE=SPOT CH:PERIPHERAL_BRAND=[facility] 06/24/2024 88 bpm CH:VITAL_READING_TYPE=SPOT CH:PERIPHERAL_BRAND=[facility] 97 bpm CH:VITAL_READING_TYPE=SPOT CH:PERIPHERAL_BRAND=[facility] Weight 78 kg (172 lb 0.8 oz) CH:VITAL_READING_TYPE=SPOT CH:PERIPHERAL_BRAND=WITHINGS 07/22/2024 78 kg (172 lb 0.8 oz) CH:VITAL_READING_TYPE=SPOT CH:PERIPHERAL_BRAND=WITHINGS 77 kg (169 lb 12.4 oz) CH:VITAL_READING_TYPE=SPOT CH:PERIPHERAL_BRAND=WITHINGS 77.5 kg (170 lb 13.2 oz) CH:VITAL_READING_TYPE=SPOT CH:PERIPHERAL_BRAND=WITHINGS Physical Exam: Physical Exam Constitutional: Appearance: Normal appearance. Cardiovascular: Rate and Rhythm: Normal rate and regular rhythm. Pulses: Normal pulses. Pulmonary: Effort: Pulmonary effort is normal. Breath sounds: Normal breath sounds. Abdominal: General: Bowel sounds are normal. There is distension. Palpations: Abdomen is soft. Musculoskeletal: Right lower leg: Edema present. Left lower leg: Edema present. Skin: General: Skin is warm and dry. Capillary Refill: Capillary refill takes 2 to 3 seconds. Neurological: General: No focal deficit present. Mental Status: She is alert and oriented to person, place, and time. Psychiatric: Mood and Affect: Mood normal. Behavior: Behavior normal. Review of Systems: Review of Systems Constitutional: Positive for fatigue. Respiratory: Positive for shortness of breath. Cardiovascular: Positive for leg swelling. Gastrointestinal: Positive for abdominal distention. Genitourinary: Negative. Musculoskeletal: Negative. Skin: Negative. Neurological: Negative. Hematological: Negative. Psychiatric/Behavioral: Negative. Care Plan Goal Progress: Orders Placed: Plan EKG Medications Given: Care Gaps: Care Gaps Care gaps closed this contact: Education;Lab/radiology testing coordinated;Medications (07/22/241726) Type of education: Clinical/disease (07/22/241726) Type of medication care gap: (lasix 20mg started daily until provider appointment) (07/22/241726) documented in this encounter Plan of Treatment Upcoming Encounters Date Type Department Care Team (Late st Contact Info) Description 07/23/2024 1:00 PM EDT [facility] [address] [id number] [facility], Nurse [facility] [address] [place] [address] 07/23/2024 2:00 PM EDT Nurse Only Ancillary [address] [place] [address] [place], Nurse [address] [place] [address] 07/27/2024 3:30 PM EDT Office Visit Cardiology, [facility] [address] [place] [phone] Mykel Orellana PA-C [address] [place] [address] 07/28/2024 10:00 AM EDT Home Visit [facility] [address] [place] [address] [address] Leon Live PA-C [address] [place] [address] 07/30/2024 1:30 PM EDT Imaging Radiology [facility] [address] [place] [phone] 08/11/2024 1:45 PM EDT [facility] [address] [place] [phone] Pedro Tinsley DO [address] [place], [place] [address] Nurse Roscoe Leyva [address] [place], [place] [address] Photographer Justen Leyva [address] [place], [place] [address] 08/18/2024 10:20 AM EDT Laboratory Laboratory [address] [place] [phone] [place], Lab [address] [place] [address] 08/25/2024 3:30 PM EDT Office Visit Hematology/Oncology [facility] [address] [place] [phone] Arianna Szymanski MD [address] [place] [address] 09/07/2024 3:30 PM EDT Office Visit Rheumatology [address] [place] [phone] José Miguel Cullen CRNP [address] [place] [phone] 09/11/2024 12:50 PM EDT Office Visit Dermatology, Jesu Wilson [address] [place] [phone] Dasha Nelson PA-C [address] [place] [address] 09/29/2024 3:10 PM EDT Office Visit Urogynecology [facility] [address] [facility] [place] [address] Quincy Garcia [facility] [place] [address] 10/05/2024 1:30 PM EDT Office Visit Cardiology, [facility] [address] [facility] [place] [phone] Charles Ortega DO [address] [facility] [address] 10/05/2024 2:15 PM EDT Telemedicine Neurology [facility] [address] [place] [phone] Alfonso Manning MD 200 [facility] [place] [address] 12/30/2024 12:40 PM EDT Office Visit Family Medicine [address] [place] [phone] Irene Bowens MD [address] [place] [address] [place] [phone] 08/17/2025 2:30 PM EDT Cardiac Studies Cardiology [address] [place] [address] [facility] [place] [address] Scheduled Orders Name Type Priority Associated Diagnoses Orde r Schedule EKG EKG Routine Tachy-chintan syndrome (HCC) Expected: 07/23/2024 (Approximate), Expires: 08/21/2025 Health Maintenance Due Date Last Done Comments Adult Wellness Visit 02/06/2018 02/06/2017 Depression Screening 07/17/2022 07/17/2021 COVID-19 Vaccine ( season) 2023 02/05/2022, 08/02/2021, 02/28/2021, Additional history exists Albumin/Creatinine Ratio 02/13/2024 023, 03/21/2022, 04/19/2021, Additional history exists HbA1c 04/26/2024 04/26/2023, 03/02, 04/19/2021, Additional history exists CKD PHOS USE SMARTSET 39904 06/26/202405/31, 04/19/2021, 11/27/2019, Additional history exists DXA Scan 07/18/2024 07/18/2022, 06/30, 12/22/2019, Additional history exists Influenza Vaccine (FLU shot) (Season Ended) 2024 04/19/2023, 01/30/2022, 12/28/2020, Additional history exists GFR 12/26/2024 06/25/2024, 03/0 11/2024, 02/17/2024, Additional history exists CKD HGB USE SMARTSET 26193 02/16/202502/16, 02/17/2024, 06/27/2023, Additional history exists TSH 06/25/2025 06/25/2024, 04/02, 04/08/2024, Additional history exists DTap/Tdap Vaccines (3 - Td or Tdap) 09/30/2033 10/01/2023, 11/03/2007 Hepatitis B Vaccine Completed 03/18/2009, 06/14/2008, 05/12/2008 Pneumococcal Vaccine: 50+ Years Completed 03/28/2015, 03/20/2010, 11/15/2004 RETIRED - COLONOSCOPY-EVERY 5 YRS AGES 18-100 Discontinued 02/27/2017, 02/27/2017, 10/17/2004 Zoster Vaccines Completed 06/12/2021, 02/01, 11/04/2012 VITAMIN D LEVEL ONCE IN A LIFETIME-USE SMARTSET# 34727 Completed 06/27/2023, 11/06/2021, 12/28/2019, Additional history exists HPV (Gardasil) Vaccine Aged Out No lo nger eligible based on patient's age to complete this topic MENINGOCOCCAL (MENACTRA/MENVEO) Aged Out No longer eligible based on patient's age to complete this topic Meningitis B Vaccine (Bexsero/Trumemba) Aged Out No longer eligible based on patient's age to complete this topic documented as of this encounter Medical Devices Implanted Type Area Interpreter Device Identifier Shelf Expiration Date Model / Serial / Lot Lens Intraoc 21.5 - [id number] - [id number] Implanted:Qty: 1 on 05/12/2019 by Yury Brady MD at OR [facility] Right: Eye BAUSCH 12/30/2023 [id number] / [id number] / [id number] Lens Intraoc 22.5 - [id number] - [id number] Implanted:Qty: 1 on 04/05/2020 by Yury Brady MD at OR [facility] Left: Eye BAUSCH 09/28/2024 [id number] / [id number] / [id number] documented as of this encounter Visit Diagnoses Diagnosis Hypertensive kidney disease with stage 3a chronic kidney disease- Primary Atherosclerosis of crow coronary artery of crow heart without angina pectoris Dyslipidemia, goal LDL below 70 Other and unspecified hyperlipidemia History of pulmonary embolism Personal history of pulmonary embolism Tachy-chintan syndrome (HCC) Sinoatrial node dysfunction S/P placement of cardiac pacemaker Cardiac pacemaker in situ Arthralgia of right hip Gastro-esophageal reflux disease with esophagitis, without bleeding Sinus tachycardia Other specified cardiac dysrhythmias Coronary artery disease involving crow coronary artery of crow heart without angina pectoris Presence of cardiac pacemaker Cardiac pacemaker in situ Palpitations HTN, goal below 140/90 Unspecified essential hypertension Hypertensive kidney disease with stage 3a chronic kidney disease- Primary Dyslipidemia, goal LDL below 70 Other and unspecified hyperlipidemia Gastro-esophageal reflux disease with esophagitis, without bleeding Atherosclerosis of crow coronary artery of crow heart without angina pectoris Advanced care planning/counseling discussion- Primary Other specified counseling Hypertensive kidney disease with stage 3a chronic kidney disease (HCC) History of [place] (myocardial infarction) Old myocardial infarction Tachy-chintan syndrome (HCC) Sinoatrial node dysfunction Dyslipidemia, goal LDL below 70 Other and unspecified hyperlipidemia Migraine without aura and without status migrainosus, not intractable Migraine without aura, without mention of intractable migraine without mention of status migrainosus Hypothyroidism (acquired) Unspecified hypothyroidism Senile osteoporosis 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 Hypertensive kidney disease with stage 3a chronic kidney disease- Primary Atherosclerosis of crow coronary artery of crow heart without angina pectoris Migraine without aura and without status migrainosus, not intractable Migraine without aura, without mention of intractable migraine without mention of status migrainosus Tachy-chintan syndrome (HCC)- Primary Sinoatrial node dysfunction documented in this encounter Advance Directives Documents on File Type Date Recorded 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 Question Answer Comments Discussion of Advance Directives occurred with: Patient Healthcare Agents on File Name Relationship Healthcare Agent Relationship Communication Krissy José Luis Adult Child Health Care Agen t (per Health Care Power of Vegetable Specker document) Guille Urban Adult Child Health Care Agen t (per Health Care Power of Vegetable Specker document) [email or web address] om Care Teams Fishing Rod Marker Relationship Specialty Start Date End Date Rafa Bergman MD [address] [place] [address] [place] [address] PCP - General Family Medicine 04/19/21 documented as of this encounter
--- OUTSIDE RECORDS SUMMARY | 2024-07-23 23:56 | External Medical Summary | Summary of Care ---
Author Name Unknown Organization [facility] Address [address] [facility] [place] [address] Phone [phone] Care Team Providers Care Sand Mill Operator Name Role Phone Rafa Bergman MD Primary Care Provide r Reason for Visit * Reason Onset Date Comments [facility]: Acute 07/18/2024 tomás SOSA HR--CXR results 07/17/24 Encounter Details Date Type Department Care Team (Late st Contact Info) Description 07/18/2024 11:15 AM EDT Scheduled Telephone [facility], [facility] 132 [facility] [place] [address] [facility], Nurse [facility] 132 [facility] [place] [address] Allergies Active Allergy Reactions Criticality Noted Date [...] needed for loose stool 30 Capsule 3 08/02/19 23 Active Dicyclomine HCl 10 MG Oral Capsule (Bentyl)Indicati ons:Diarrhea, unspecified type,Irritable bowel syndrome with both constipation and diarrhea take 1 capsule as needed in the morning, 1 capsules as needed at noon, 1 capsule as needed in the evening and 1 capsule as needed before bedtime for pain or gas. take for abdominal pain. 120 Capsule 01/09/20 23 Active Cholecalciferol 50 MCG (2000 UT) Oral Capsule Take 1 Capsule by mouth in the morning. Active Fortify Probiotic Womens Oral Capsule Delayed Release Take 1 Capsule by mouth in the morning. Active Bisacodyl 5 MG Oral Tablet Delayed Release (Dulcolax) Take 1 Tablet by mouth daily as needed for Constipation. 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 180 Tablet 3 06/19/2024 2:50 PM EDT 01/09/20 24 Active Rosuvastatin Calcium 5 MG Oral Tablet (Crestor)Indicat ions:Dyslipidemi a, goal LDL below 70,Coronary artery disease involving stillaguamish coronary artery of stillaguamish heart without angina pectoris TAKE ONE TABLET BY MOUTH IN THE MORNING 90 Tablet 3 05/25/2024 7:44 AM EST 01/10/20 24 Active Levothyroxine Sodium 125 MCG Oral Tablet (Levoxyl)Indicat ions:Hypothyroid ism (acquired) Take 1 Tablet by mouth daily first thing in the morning. (at least 30 min prior to breakfast or other meds) 90 Tablet 2 05/29/2024 11:01 AM EST 01/10/20 24 Active Ondansetron HCl 4 MG Oral TabletIndication s:Nausea Take 1 Tablet by mouth every 8 hours as needed for Nausea. 30 Tablet 01/17/20 24 Active Famotidine 20 MG Oral Tablet (Pepcid) Take 1 Tablet by mouth at bedtime. 90 Tablet 3 06/23/2024 9:29 AM EDT 01/24/20 24 Active dilTIAZem HCl ER 360 MG Oral Tablet Extended Release 24 HourIndications: HTN, goal below 140/90,Tachy-bra dy syndrome (HCC) Take 1 Tablet by mouth in the morning. 90 Tablet 2 05/06/2024 11:42 AM EST 03/27/20 24 Active Additional Information Patient taking differently:1 Tablet Oral Daily(AM),Takes in the evening, Reported on 07/06/2024 Riboflavin 400 MG Oral Tablet Take 1 Tablet by mouth in the morning. 90 Tablet 3 04/17/2024 1:21 PM EST 04/13/19 25 Active Magnesium Oxide -Mg Supplement 400 MG Oral Capsule (Magnesium Extra Strength) Take 1 capsule by mouth in the morning. 90 Capsule 3 04/17/2024 1:21 PM EST 04/13/19 25 Active Allopurinol 300 MG Oral Tablet (Zyloprim) TAKE 1 & 1/2 TABLETS BY MOUTH EVERY DAY 135 Tablet 05/14/2024 5:55 PM EST 05/11/19 25 Active Spironolactone 25 MG Oral Tablet (Aldactone) Take 0.5 Tablets by mouth in the morning. 06/24/19 25 Active Propranolol HCl 10 MG Oral Tablet (Inderal)Indicat ions:Sinus tachycardia,Tach y-chintan syndrome (HCC),Coronary artery disease involving stillaguamish coronary artery of stillaguamish heart without angina pectoris,Presenc e of cardiac pacemaker,Palpit ations,HTN, goal below 140/90 Take 0.5 Tablets by mouth at bedtime. 06/26/19 25 Active Nortriptyline HCl 10 MG Oral Capsule (Pamelor) One capsule at bedtime every other night for 2 weeks then one orally at bedtime every night 30 Capsule 5 07/07/19 25 Active Vitamin B-12 1000 MCG Oral Tablet (Cyanocobalamin) Take 1 Tablet by mouth in the morning. 100 Tablet 3 07/13/2024 6:43 AM EDT 07/09/19 25 Active predniSONE 10 MG Oral Tablet (Deltasone)Indic ations:Pain in joint of right shoulder Take 5 tabs for 2 days, 4 tabs for 2 days, 3 tabs for 2 days, 2 tabs for 2 days 1 tab for 2 days 30 Tablet 07/09/19 25 Active Gabapentin 100 MG Oral Capsule (Neurontin) Take 1 Capsule by mouth 3 times a day. 270 Capsule 07/13/2024 6:43 AM EDT 07/10/19 25 Active Pantoprazole Sodium 40 MG Oral Tablet Delayed Release (Protonix) Take 1 Tablet by mouth in the morning and 1 Tablet in the evening. 90 Tablet 3 04/23/2024 8:22 AM EST 01/09/20 24 025 Discontin ued(Refil l) Hospital, Clinic, or Other Facility Administered Medication [...] 01/03/2023 History of [place] (myocardial infarction) 11/27/2022 Assessment & Plan (04/16/2024 [...] S/P angioplasty with stent 11/27/2018 Atherosclerosis of stillaguamish co ronary artery of stillaguamish heart without angina pectoris 07/08/2018 Overview (11/21/2023): history of NSTEMI status post AMIE to LAD (culprit) and RCA, 04/28/2018 Assessment & Plan (06/23/2024 3:37 PM EDT): Follows with cardiology Continue statin Assessment & Plan (01/24/2024 4:40 PM EDT): Cardiac rehab at [facility] 2x week Assessment & Plan (11/21/2023 5:32 [...] 09/13/2022 11/08/2023 Atherosclerosis of coronary artery of stillaguamish heart without angina pectoris 09/10/2022 10/31/2022 Hypothyroidism [...] filter 02/28/2015 Atherosclerotic heart diseas e of stillaguamish coronary artery with angina pectoris 11/2018 CKD [...] (Prevnar) 03/28/2015 Pneumococcal Polysaccharide PPV23 (Pneumovax) 03/20/2010,11/15/2004 Season Influenza, Quad, PF, Adjuvanted, 65+ Yrs, IM (FLUAD) 01/30/2022 Seasonal Influenza Vac., MDV , IM, 0.5 mL (Fluzone) 02/21/2015,12/25/2013,12/31/2012,11/30,01/17/2011,01/20/2010,12/31/19 09,02/19/2008,02/06/2007,02/05/2006,1 04/14/2004,01/11/2004,01/19/2003,01/12 Seasonal Influenza, High Dos e, Trivalent, PF, [...] 02/06/2024 Does the household have a re gular source of income? 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 Please advise. Thank you. The appt is on: 07/27/2024 Status: Shyla Time: 3:30 PM Length: 30 Visit Type: RETURN CARDIOLOGY [51876] Reg Status: Verified Copay: $0.00 Provider: Mykel Orellana PA-C * Telephone Encounter - Akua Man LPN - 07/21/2024 2:38 PM EDT Spoke with pt by phone. Pt would like both EKG and cardio follow up Scheduling please assist. * Telephone Encounter - Charles Ortega DO - 07/21/2024 1:09 PM EDT Recommend ECG and cardiology follow-up. Will forward to my staff to schedule appointment for evaluation. * Telephone Encounter - Irene Lawrence LPN - 07/20/2024 11:39 AM EDT Pt is aware Will need to discontinue Amytriptline x 1 week then report back to our office * Telephone Encounter - Kasey Sanabria RN - 07/19/2024 3:41 PM EDT Message forwarded to neurology and cardiology for review. F/u call to pt for status check. SpO2 91% Bp -117/76 HR fine sitting down--86 Only sob with exertion--has been resting between activities-breathing returns to baseline with 3-4 minutes of resting. States it is taking her long to get her holiday meal prepared and is limiting her activity time. Pt mentions she started Nortriptylline shortly prior to onset of change in symptoms. States she still has a little of bit of a headache daily. Currently taking nortriptyline one every other day and tonight is to increase to one daily. Also questions if it could be her protonix causing symptoms? Protonix adjusted in the past 2 months and was told this could increase the heart. Pt questions if cardiology would recommend a heart monitor? * Telephone Encounter - Kasey Sanabria RN - 07/18/2024 10:39 AM EDT Pt notified no further changes at this time. Reinforced recommendations. Cc chart to care team, including cardiology. * Telephone Encounter - Justin Cronin MD - 07/18/2024 10:26 AM EDT Agree with recommendations as written in note. Nothing to add to thoughtful and appropriate reccs. E * Telephone Encounter - Kasey Sanabria RN - 07/18/2024 8:55 AM EDT Images from the original note were not included. SITUATION: 10 day onset of worsening SOSA and elevated HR---CXR ordered by [facility] 07/17/24--results below BACKGROUND: PMHx: HTN, CKD 3, Tachy-chintan syndrome s/p pacemaker, H/o [place], h/o pulmonary embolism on Eliquis H/o left pleural effusion-Chest xray last 06/04/24- moderate left pleural effusion. +RSV Started medrol dose pack, Levaquin every other day. IV lasix 80mg given 06/05/24, 06/06 and 06/0706/16/24-US chest for pleurocentesis--revealed no left effusion ASSESSMENT: BP 130/88, SpO2 93% HR walking to the BR this morning 122 103 after sitting down Pt states she is feeling about the same. No better, no worse. States ~ 10 day ago started with increased SOSA with minimal activity and elevated HR States she is not particularly worried about the elevated HR. Baseline HR 90 per pt. Denies SOB at rest Pacer check at clinic 07/14--states her HR was noted to be elevated in the 120's with ambulation. [facility] pacer clinic sent a message to her aquatic ecologist, but she has not heard back. Denies chest pain/tightness/pressure, palpitations, dizziness, increased edema or abdominal bloating, new cough/congestion, fever/chills, GI issues or changes Notes at times has brief episodes of lightheadedness with elevated HR Mentions she has a burning sensation across chest at times with exertion, resolves with rest. Pt is speaking in full sentences without pausing during phone conversation. States she injured her shoulder recently and just completed a course of prednisone. Recently started on Nortriptyline by neurology for persistent headaches Denies missing any doses of Eliquis recently. States she is very strict with medications and takes as directed. RECOMMENDATION: Message to [facility] for review/recommendations Limit exertion causing increased SOB/elevated HR/lightheadedness Continue to take medications as ordered Monitor vs--HR, BP, pulse ox--report SpO2 persistently less than 90%, SBP persistently >140, HR persistently >120 unrelieved with rest Continue with adequate oral hydration Safety with ambulation, fall prevention reinforced 911 with chest pain, respiratory distress or acute changes in condition F/u call in 1 day Kasey Sanabria RN [facility], [facility] 132 [facility] [address] * Telephone Encounter - Kasey Sanabria RN - 07/18/2024 8:44 AM EDT Attempted to contact pt for follow up. No answer, phone disconnects after multiple rings. documented in this encounter Plan of Treatment Upcoming Encounters Date Type Department Care Team (Late st Contact Info) Description 07/23/2024 1:00 PM EDT Scheduled Telephone [facility], [place] [address] [place] [address] [facility], Nurse [place] [address] [place] [address] 07/23/2024 2:00 PM EDT Nurse Only Ancillary [address] [place] [address] [facility] Nurse [address] [place] [address] 07/25/2024 9:45 AM EDT Scheduled Telephone [facility], [facility] 132 [place] [address] [facility], Nurse [place] [address] [address] [place] [address] 07/27/2024 3:30 PM EDT Office Visit Cardiology, [facility] 132 [place] [phone] Mykel Orellana PA-C [address] [place] [address] 07/28/2024 10:00 AM EDT Home Visit [facility], [facility] [address] [place] [address] Leon Live PA-C [address] [place] [address] 07/30/2024 1:30 PM EDT Imaging Radiology [facility] [address] [place] [phone] 08/11/2024 1:45 PM EDT Office Visit Ophthalmology, [facility] [address] [place] [phone] Pedro Tinsley DO [address] [place] [address] Nurse Roscoe Leyva [address] [place] [address] Cl Leyvaer Justen [address] [place] [address] 08/18/2024 10:20 AM EDT Laboratory Laboratory [address] [place] [phone] Anton, Lab [address] [place] [address] 08/25/2024 3:30 PM EDT Office Visit Hematology/Oncology [facility] [address] [place] [phone] Arianna Szymanski MD [address] [place] [address] 09/07/2024 3:30 PM EDT Office Visit Rheumatology [address] [place] [phone] José Miguel Cullen CRNP [address] [place] [phone] 09/11/2024 12:50 PM EDT Office Visit Dermatology, Jesu Wilson [address] [place] [id number] Dasha Nelson, PADelaneyC [address] [place] [address] 09/29/2024 3:10 PM EDT Office Visit Urogynecology [facility] [address] [place] [address] Quincy Garcia MD [address] [place] [address] 10/05/2024 1:30 PM EDT Office Visit Cardiology, [facility] [address] [place] [phone] Charles Ortega DO [address] [place] [address] 10/05/2024 2:15 PM EDT Telemedicine Neurology [facility] 200 [facility] [place] [phone] Alfonso Manning MD 200 [facility] [place] [address] 12/30/2024 12:40 PM EDT Office Visit Family Medicine [address] [place] [phone] Irene Bowens MD [address] [place] [address] [place] [phone] 08/17/2025 2:30 PM EDT Cardiac Studies Cardiology [address] [place] [address] [facility] [address] [place] [address] Health Maintenance Due Date Last Done Comments Adult Wellness Visit 02/06/2018 02/06/2017 Depression Screening 07/17/2022 07/17/2021 COVID-19 Vaccine ( season) 2023 02/05/2022, 08/02/2021, 02/28/2021, Additional history exists Albumin/Creatinine Ratio 02/13/2024 023, 03/21/2022, 04/19/2021, Additional history exists HbA1c 04/26/2024 04/26/2023, 03/02, 04/19/2021, Additional history exists CKD PHOS USE SMARTSET 37492 06/26/202405/31, 04/19/2021, 11/27/2019, Additional history exists DXA Scan 07/18/2024 07/18/2022, 06/30, 12/22/2019, Additional history exists Influenza Vaccine (FLU shot) (Season Ended) 2024 04/19/2023, 01/30/2022, 12/28/2020, Additional history exists GFR 12/26/2024 06/25/2024, 03/0 11/2024, 02/17/2024, Additional history exists CKD HGB USE SMARTSET 08624 02/16/202502/16, 02/17/2024, 06/27/2023, Additional history exists TSH [...] D LEVEL ONCE IN A LIFETIME-USE SMARTSET# 48645 Completed 06/27/2023, 11/06/2021, 12/28/2019, Additional history exists [...] this encounter Medical Devices Implanted Type Area Ice Cream Chef Device Identifier Shelf Expiration Date Model / Serial / Lot Lens Intraoc 21.5 - [id number] - [id number] Implanted:Qty: 1 on 05/12/2019 by Yury Brady MD at OR [facility] Right: Eye BAUSCH 12/30/2023 [id number] / [id number] / [id number] Lens Intraoc 22.5 - [id number] - [id number] Implanted:Qty: 1 on 04/05/2020 by Yury Brady MD at OR [facility] Left: Eye BAUSCH 09/28/2024 [id number] / [id number] / [id number] documented as of this encounter Advance Directives Documents on File Type Date Recorded Patient Straight Knife Machine 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
--- OUTSIDE RECORDS SUMMARY | 2024-07-23 23:56 | External Medical Summary | Summary of Care ---
Author Name Unknown Organization [facility] Address [address] [place] [address] Phone [phone] Care Team Providers Care Supervisor Kennel Name Role Phone Rafa Bergman MD Primary Care Provide r Reason for Visit * Reason Onset Date Comments [facility]: Maintenance 07/23/2024 Encounter Details Date Type Department Care Team (Late st Contact Info) Description 07/23/2024 1:00 PM EDT Scheduled Telephone [facility], [facility] [address] [facility] [place] [address] [facility], Nurse [facility] [address] [facility] [place] [address] Allergies Active Allergy Reactions Criticality Noted Date [...] goal LDL below 70,Coronary artery disease involving kaw coronary artery of kaw heart without angina pectoris TAKE ONE TABLET [...] tachycardia,Tach y-chintan syndrome (HCC),Coronary artery disease involving kaw coronary artery of kaw heart without angina pectoris,Presenc e of cardiac [...] eye 01/03/2023 History of MT (myocardial infarction) 11/27/2022 Assessment & Plan (04/16/2024 [...] S/P angioplasty with stent 11/27/2018 Atherosclerosis of kaw co ronary artery of kaw heart without angina pectoris 07/08/2018 Overview (11/21/2023): history of NSTEMI status post AMIE to LAD (culprit) and RCA, 04/28/2018 Assessment & Plan (06/23/2024 3:37 PM EDT): Follows with cardiology Continue statin Assessment & Plan (01/24/2024 4:40 PM EDT): Cardiac rehab at [facility] 2x week Assessment & Plan (11/21/2023 5:32 [...] 09/13/2022 11/08/2023 Atherosclerosis of coronary artery of kaw heart without angina pectoris 09/10/2022 10/31/2022 Hypothyroidism [...] filter 02/28/2015 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 11/2018 CKD [...] MDV , IM, 0.5 mL (Fluzone) 02/21/2015,12/25/2013,12/31/2012,11/30,01/17/2011,01/20/2010,12/31/19 09,02/19/2008,02/06/2007,02/05/2006 Seasonal Influenza, High Dos e, Trivalent, PF, [...] 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 Objective: 07/22/2024 2:28 PM 07/08/2024 11:09 AM 07/06/2024 8:41 AM 06/25/2024 8:55 AM 06/12/2024 3:05 PM VITALS ACROSS ENCOUNTERS BP 120/80 104/72 194/70 106/74 122/68 Pulse 104 79 89 88 Weight 79.3 kg 79.2 kg 78.7 kg BMI 30.96 kg/m2 30.93 kg/m2 30.72 kg/m2 Remote Patient Monitoring: NONE Oxygen Needs: NO supplemental oxygen needs identified DME Needs: NO DME needs identified Medications: New medication(s) added: Lasix 20 mg daily Subjective: Condition Status: Improvement in symptoms but not at baseline Current Concerns: Copied from 07/22 visit: Upon arrival today- greeted at door- sob [...] appointment next Saturday EKG ordered- appointment at [facility] tomorrow. Scheduled with Mykel Orellana PA-C 07/27 Patient aware of above. Voices understanding. 07/23: Spoke with pt, Feels her breathing is the same as yesterday, dyspneic on exertion and recovers with rest, but LE edema is improved some. HR 105, SpO2 95% on room air today. Pt confirmed she did start Lasix 20 mg daily to take until 07/28 [facility] provider HV. Is going for her EKG this afternoon. Sees cardiology Saturday, 07/27. F/u call scheduled for Saturday. Disposition: Provider Home Visit scheduled Future Visits Scheduled: Future Appointments-next 60 days Date/Time Provider Specialty Dept Phone 07/23/2024 1:00 PM Tariq, Nurse Malena [facility] [phone] 07/23/2024 2:00 PM Nurse Jude [facility] Ancillary [phone] 07/25/2024 9:45 AM [facility], Nurse Rogers Usman [facility] [phone] 07/27/2024 3:30 PM (Arrive by 3:15 PM) Mykel Orellana PA-C Cardiology [phone] 07/28/2024 10:00 AM Leon Live PA-C [facility] [phone] 07/30/2024 1:30 PM YIMIA JUSTEN STEVENS Radiology [phone] 08/11/2024 1:45 PM Photographer Justen Leyva; Nurse Roscoe Leyva; Pedro Tinsley DO Ophthalmology [phone] 08/18/2024 10:[address] [facility] Mo Laboratory [phone] 08/25/2024 3:30 PM (Arrive by 3:15 PM) Arianna Szymanski MD Hematology Oncology [phone] 09/07/2024 3:30 PM (Arrive by 3:15 PM) José Miguel Cullen CRNP Rheumatology [phone] 09/11/2024 12:50 PM (Arrive by 12:35 PM) Dasha Nelson PA-C Dermatology [phone] 09/29/2024 3:10 PM (Arrive by 2:55 PM) Quincy Garcia MD Gynecology Urology [phone] 10/05/2024 1:30 PM (Arrive by 1:15 PM) Charles Ortega DO Cardiology [phone] 10/05/2024 2:15 PM Alfonso Manning MD Neurology Arrive at: Patient's Home [phone] 12/30/2024 12:40 PM (Arrive by 12:25 PM) Irene Bowens MD Family Medicine [phone] 08/17/2025 2:30 PM (Arrive by 2:15 PM) Cadence Horne [facility] Cardiology [phone] Brunilda Higgins, RN documented in this encounter Plan of Treatment Upcoming Encounters Date Type Department Care Team (Late st Contact Info) Description 07/23/2024 2:00 PM EDT Nurse Only Ancillary [address] [place] [address] [place], Nurse [address] [place] [address] 07/25/2024 9:45 AM EDT Scheduled Telephone [facility], [facility] [address] [place] [address] [facility], Nurse [facility] [address] [place] [address] 07/27/2024 3:30 PM EDT Office Visit Cardiology, [facility] [address] [place] [phone] Mykel Orellana PA-C [address] [place] [address] 07/28/2024 10:00 AM EDT Home Visit [facility], [facility] [address] [place] [address] Leon Live PA-C 132 [place] [address] 07/30/2024 1:30 PM EDT Imaging Radiology [facility] [address] [place] [phone] 08/11/2024 1:45 PM EDT Office Visit Ophthalmology, [facility] [address] [place], [place] [phone] Pedro Tinsley DO [address] [place] [address] Nurse Roscoe Leyva [address] [place] [address] Photographer Justen Leyva [address] [place] [address] 08/18/2024 10:20 AM EDT Laboratory Laboratory [address] [place] [phone] [place] [address] 08/25/2024 3:30 PM EDT Office Visit Hematology/Oncology [facility] [address] [place] [phone] Arianna Szymanski MD [address] [place] [address] 09/07/2024 3:30 PM EDT Office Visit Rheumatology [address] [place] [phone] José Miguel Cullen CRNP [address] [place], [place] [phone] 09/11/2024 12:50 PM EDT Office Visit Dermatology, Jesu Wilson [address] [place] [address] Dasha Nelson PA-C [address] [place] [address] 09/29/2024 3:10 PM EDT Office Visit Urogynecology [facility] [address] [place] [address] Quincy Garcia MD [address] [place] [address] 10/05/2024 1:30 PM EDT Office Visit Cardiology, [facility] [address] [place] [phone] Charles Ortega DO [address] [place] [address] 10/05/2024 2:15 PM EDT Telemedicine Neurology [facility] 200 [facility] [place] [phone] Alfonso Manning MD [address] [facility] [place] [address] 12/30/2024 12:40 PM EDT Office Visit Family Medicine [address] [place] [phone] Irene Bowens MD [address] [place] [address] [place] [phone] 08/17/2025 2:30 PM EDT Cardiac Studies Cardiology [address] [place] [address] [place], [facility] [address] [place] [address] Health Maintenance Due Date Last Done Comments Adult Wellness Visit 02/06/2018 02/06/2017 Depression Screening 07/17/2022 07/17/2021 COVID-19 Vaccine ( season) 2023 02/05/2022, 08/02/2021, 02/28/2021, Additional history exists Albumin/Creatinine Ratio 02/13/2024 023, 03/21/2022, 04/19/2021, Additional history exists HbA1c 04/26/2024 04/26/2023, 03/02, 04/19/2021, Additional history exists CKD PHOS USE SMARTSET 21730 06/26/202405/31, 04/19/2021, 11/27/2019, Additional history exists DXA Scan 07/18/2024 07/18/2022, 06/30, 12/22/2019, Additional history exists Influenza Vaccine (FLU shot) (Season Ended) 2024 04/19/2023, 01/30/2022, 12/28/2020, Additional history exists GFR 12/26/2024 06/25/2024, 03/0 11/2024, 02/17/2024, Additional history exists CKD HGB USE SMARTSET 80562 02/16/202502/16, 02/17/2024, 06/27/2023, Additional history exists TSH [...] D LEVEL ONCE IN A LIFETIME-USE SMARTSET# 33317 Completed 06/27/2023, 11/06/2021, 12/28/2019, Additional history exists [...] this encounter Medical Devices Implanted Type Area Supervisor Hot Dip Plating Device Identifier Shelf Expiration Date Model / Serial / Lot Lens Intraoc 21.5 - [id number] - [id number] Implanted:Qty: 1 on 05/12/2019 by Yury Brady MD at OR [facility] Right: Eye BAUSCH 12/30/2023 [id number] / [id number] / [id number] Lens Intraoc 22.5 - [id number] - [id number] Implanted:Qty: 1 on 04/05/2020 by Yury Brady MD at OR [facility] Left: Eye BAUSCH 09/28/2024 [id number] / [id number] / [id number] documented as of this encounter Advance Directives Documents on File Type Date Recorded 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
--- OUTSIDE RECORDS SUMMARY | 2024-07-23 23:56 | External Medical Summary | Summary of Care ---
Author Name Unknown Organization [facility] Address [address] [facility] [place] [address] Phone [phone] Care Team Providers Care Custodial Foreman Name Role Phone Rafa Bergman MD Primary Care Provide r Reason for Visit * Reason Onset Date Comments [facility]: Acute 07/18/2024 tomás SOSA HR--CXR results 07/17/24 Encounter Details Date Type Department Care Team (Late st Contact Info) Description 07/18/2024 11:15 AM EDT Scheduled Telephone [facility], [facility] 132 [facility] [place] [address] [facility], Nurse [facility] [address] [facility] [place] [address] Allergies Active Allergy Reactions Criticality Noted Date [...] goal LDL below 70,Coronary artery disease involving poarch coronary artery of poarch heart without angina pectoris TAKE ONE TABLET [...] tachycardia,Tach y-chintan syndrome (HCC),Coronary artery disease involving poarch coronary artery of poarch heart without angina pectoris,Presenc e of cardiac [...] 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 History of HI (myocardial infarction) 11/27/2022 Assessment & Plan (04/16/2024 [...] S/P angioplasty with stent 11/27/2018 Atherosclerosis of poarch co ronary artery of poarch heart without angina pectoris 07/08/2018 Overview (11/21/2023): history of NSTEMI status post AMIE to LAD (culprit) and RCA, 04/28/2018 Assessment & Plan (06/23/2024 3:37 PM EDT): Follows with cardiology Continue statin Assessment & Plan (01/24/2024 4:40 PM EDT): Cardiac rehab at [facility] 2x week Assessment & Plan (11/21/2023 5:32 [...] 09/13/2022 11/08/2023 Atherosclerosis of coronary artery of poarch heart without angina pectoris 09/10/2022 10/31/2022 Hypothyroidism [...] filter 02/28/2015 Atherosclerotic heart diseas e of poarch coronary artery with angina pectoris 11/2018 CKD [...] 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 07/17/24--results below BACKGROUND: PMHx: HTN, CKD 3, Tachy-chintan syndrome s/p pacemaker, H/o HI, h/o pulmonary embolism on Eliquis H/o left [...] be elevated in the 120's with ambulation. [facility] sent a message to her jewel gauger, but she has not heard back. Denies [...] and takes as directed. RECOMMENDATION: Message to [facility] for review/recommendations Limit exertion causing increased SOB/elevated HR/lightheadedness Continue to take medications as ordered Monitor vs--HR, BP, pulse ox--report SpO2 persistently less than 90%, SBP persistently >140, HR persistently >120 unrelieved with rest Continue with adequate oral hydration Safety with ambulation, fall prevention reinforced 911 with chest pain, respiratory distress or acute changes in condition F/u call in 1 day Kasey Sanabria RN [facility] at Home, [facility] 132 [facility] [address] * Telephone Encounter - Kasey Sanabria RN - 07/18/2024 8:44 AM EDT Attempted to contact pt for follow up. No answer, phone disconnects after multiple rings. documented in this encounter Plan of Treatment Upcoming Encounters Date Type Department Care Team (Late st Contact Info) Description 07/23/2024 1:00 PM EDT Scheduled Telephone [facility], [place] [address] [place] [address] [facility], Nurse [place] [address] [place] [address] 07/23/2024 2:00 PM EDT Nurse Only Ancillary [address] [place] [address] [facility] Nurse [address] [place] [address] 07/25/2024 9:45 AM EDT Scheduled Telephone [facility], [facility] 132 [place] [address] [facility], Nurse [place] [address] [address] [place] [address] 07/27/2024 3:30 PM EDT Office Visit Cardiology, [facility] 132 [place] [phone] Mykel Orellana PA-C [address] [place] [address] 07/28/2024 10:00 AM EDT Home Visit [facility], [facility] 132 [place] [address] Leon Live PA-C [address] [place] [address] 07/30/2024 1:30 PM EDT Imaging Radiology [facility] [address] [place] [phone] 08/11/2024 1:45 PM EDT Office Visit Ophthalmology, [facility] [address] [place] [phone] Pedro Tinsley DO [address] [place] [address] Nurse Roscoe Leyva [address] [place] [address] Cl Leyvaer Justen [address] [place] [address] 08/18/2024 10:20 AM EDT Laboratory Laboratory [address] [place] [phone] [place], Lab [address] [place] [address] 08/25/2024 3:30 PM EDT Office Visit Hematology/Oncology [facility] [address] [place] [phone] Arianna Szymanski MD [address] [place] [address] 09/07/2024 3:30 PM EDT Office Visit Rheumatology [address] [place] [phone] José Miguel Cullen CRNP [address] [place] [phone] 09/11/2024 12:50 PM EDT Office Visit Dermatology, Jesu Wilson [address] [place] [phone] Dasha Nelson, PADelaneyC [address] [place] [address] 09/29/2024 3:10 PM EDT Office Visit Urogynecology [facility] [address] [place] [address] Quincy Garcia MD [address] [place] [address] 10/05/2024 1:30 PM EDT Office Visit Cardiology, [facility] [address] [place] [phone] Charles Ortega DO [address] [place] [address] 10/05/2024 2:15 PM EDT Telemedicine Neurology [facility] 200 [facility] [place] [phone] Alfonso Manning MD 200 [facility] [place] [address] 12/30/2024 12:40 PM EDT Office Visit Family Medicine [address] [place] [phone] Irene Bowens MD [address] [place] [address] [place] [phone] 08/17/2025 2:30 PM EDT Cardiac Studies Cardiology [address] [place] [address] [facility] [address] [place] [address] Health Maintenance Due Date Last Done Comments Adult Wellness Visit 02/06/2018 02/06/2017 Depression Screening 07/17/2022 07/17/2021 COVID-19 Vaccine ( season) 2023 02/05/2022, 08/02/2021, 02/28/2021, Additional history exists Albumin/Creatinine Ratio 02/13/2024 023, 03/21/2022, 04/19/2021, Additional history exists HbA1c 04/26/2024 04/26/2023, 03/02, 04/19/2021, Additional history exists CKD PHOS USE SMARTSET 57333 06/26/202405/31, 04/19/2021, 11/27/2019, Additional history exists DXA Scan 07/18/2024 07/18/2022, 06/30, 12/22/2019, Additional history exists Influenza Vaccine (FLU shot) (Season Ended) 2024 04/19/2023, 01/30/2022, 12/28/2020, Additional history exists GFR 12/26/2024 06/25/2024, 03/0 11/2024, 02/17/2024, Additional history exists CKD HGB USE SMARTSET 48663 02/16/202502/16, 02/17/2024, 06/27/2023, Additional history exists TSH [...] D LEVEL ONCE IN A LIFETIME-USE SMARTSET# 05048 Completed 06/27/2023, 11/06/2021, 12/28/2019, Additional history exists [...] this encounter Medical Devices Implanted Type Area Strawhat Sizer Device Identifier Shelf Expiration Date Model / Serial / Lot Lens Intraoc 21.5 - [id number] - [id number] Implanted:Qty: 1 on 05/12/2019 by Yury Brady MD at OR [facility] Right: Eye BAUSCH 12/30/2023 [id number] / [id number] / [id number] Lens Intraoc 22.5 - [id number] - [id number] Implanted:Qty: 1 on 04/05/2020 by Yury Brady MD at OR [facility] Left: Eye BAUSCH 09/28/2024 [id number] / [id number] / [id number] documented as of this encounter Advance Directives Documents on File Type Date Recorded Patient Erco Machine Operator Expl anation Advance Directives and [...] t (per Health Care Power of Medical Physics Researcher document) Guille Urban Adult Child Health Care Agen t (per Health Care Power of Medical Physics Researcher document) [email or web address] Care Teams Custodial Foreman Relationship Specialty Start Date End Date Rafa Bergman MD [address] [place] [address] [place] [phone] PCP - General Family Medicine 04/19/21 documented as of this encounter
--- OUTSIDE RECORDS SUMMARY | 2024-07-23 23:57 | External Medical Summary | Summary of Care ---
Author Name Unknown Organization [facility] Address [address] [place] [address] Phone [phone] Care Team Providers Care Music Supervisor Name Role Phone Rafa Bergman MD Primary Care Provide r Reason for Visit * Reason Onset Date Comments [facility]: Maintenance 07/19/2024 Encounter Details Date Type Department Care Team (Late st Contact Info) Description 07/19/2024 10:00 AM EDT Scheduled Telephone [facility], [facility] [address] [facility] [place] [address] [facility] [address] [facility] [place] [address] Allergies Active Allergy Reactions Criticality Noted Date Comments Colchicine Diarrhea 06/16/2018 Daptomycin 01/05/2015 Shortness of breath Imipenem Edema airway High 01/05/2015 Metoprolol Low 01/23/2021 Other reaction(s): fatigue Zoledronic Acid 04/24/2012 Myalgias, fever, chills, vomiting x 2 days Sulfa Antibiotics 12/22/2002 Bactrim--itchy all over, eyes swollen documented as of this encounter (statuses as of 07/19/2024) Medications ASPIRIN 81 MG PO TABS Take [...] 3 06/19/2024 2:50 PM EDT 4 Active Pantoprazole Sodium 40 MG Oral Tablet Delayed Release (Protonix) Take 1 Tablet by mouth in the morning and 1 Tablet in the evening. 90 Tablet 3 04/23/2024 8:22 AM EST 4 Active Rosuvastatin Calcium 5 MG Oral Tablet (Crestor)Indicat ions:Dyslipidemi a, goal LDL below 70,Coronary artery disease involving [place] coronary artery of [place] heart without angina pectoris TAKE ONE TABLET [...] tachycardia,Tach y-chintan syndrome (HCC),Coronary artery disease involving [place] coronary artery of [place] heart without angina pectoris,Presenc e of cardiac [...] 1 tab for 2 days 30 Tablet Active Gabapentin 100 MG Oral Capsule (Neurontin) Take 1 Capsule by mouth 3 times a day. 270 Capsule 07/13/2024 6:43 AM EDT Active Hospital, Clinic, or Other Facility Administered [...] as of this encounter (statuses as of 07/19/2024) Active Problems Problem Noted Date Diagnosed Date [...] 01/03/2023 History of [place] (myocardial infarction) 11/27/2022 Assessment & Plan (04/16/2024 [...] S/P angioplasty with stent 11/27/2018 Atherosclerosis of [place] co ronary artery of [place] heart without angina pectoris 07/08/2018 Overview (11/21/2023): history of NSTEMI status post AMIE to LAD (culprit) and RCA, 04/28/2018 Assessment & Plan (06/23/2024 3:37 PM EDT): Follows with cardiology Continue statin Assessment & Plan (01/24/2024 4:40 PM EDT): Cardiac rehab at [facility] 2x week Assessment & Plan (11/21/2023 [...] as of this encounter (statuses as of 07/19/2024) Resolved Problems Problem Noted Date Diagnosed Date Resolved Date Purulent endophthalmitis of right eye 01/03/2023 11/08/2023 Other pulmonary embolism wit h acute cor pulmonale 10/01/2022 04/26/2023 Overview (04/26/2023): history Medical home patient encounter 09/13/2022 11/08/2023 Atherosclerosis of coronary artery of [place] heart without angina pectoris 09/10/2022 10/31/2022 Hypothyroidism [...] filter 02/28/2015 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 States she is feeling about the same, no better and no worse. SpO2 91% earlier this morning Bp -117/76 HR fine sitting down--86 Only [...] of a headache daily. Currently taking nortriptyline every other day and tonight is to increase to every day . Also questions if it could be her protonix causing symptoms? Protonix adjusted in the past 2 months and was told this could increase the heart. Pt questions if cardiology would recommend a heart monitor? See RN telephone message 07/18--added update and sent to cardiology and added neurology. documented in this encounter Plan of Treatment Upcoming Encounters Date Type Department Care Team (Late st Contact Info) Description 07/22/2024 1:30 PM EDT Home Visit Jone at [facility] [address] [place] [address] Olinda Briggs RN [address] [place] [address] 07/28/2024 10:00 AM EDT Home Visit Patelisingdora at [facility] [address] [place] [address] [address] Leon Live PA-C [address] [place] [address] 07/30/2024 1:30 PM EDT Imaging Radiology [facility] [address] [place] [phone] 08/11/2024 1:45 PM EDT Office Visit Ophthalmology, [facility] [address] [place], [place] [phone] Pedro Tinsley DO [address] [place] [address] Gordon Nurse Roscoe Campuzano [address] [place] [address] Gordon Gas Controller Justen [address] [place] [address] 08/18/2024 10:20 AM EDT Laboratory Laboratory [address] [place] [phone] [facility] [address] [place] [address] 08/25/2024 3:30 PM EDT Office Visit Hematology/Oncology [facility] [address] [place] [phone] Arianna Szymanski MD [address] [place] [address] 09/07/2024 3:30 PM EDT Office Visit Rheumatology [address] [place] [phone] José Miguel Cullen CRNP [address] [place] [address] [place] [address] 09/11/2024 12:50 PM EDT Office Visit Dermatology, Jesu Wilson [address] [place] [address] Dasha Nelson PADelaneyC [address] [place] [address] 09/29/2024 3:10 PM EDT Office Visit Urogynecology [facility] [address] [place] [address] Quincy Garcia MD [address] [place] [address] 10/05/2024 1:30 PM EDT Office Visit Cardiology, [facility] [address] [place] [phone] Charles Ortega DO [address] [place] [address] 10/05/2024 2:15 PM EDT Telemedicine Neurology [facility] [address] [place] [phone] Alfonso Manning MD 200 [facility] [place] [address] 12/30/2024 12:40 PM EDT Office Visit Family Medicine [address] [place] [phone] Irene Bowens MD [address] [place] [address] [place] [phone] 08/17/2025 2:30 PM EDT Cardiac Studies Cardiology [address] [place] [address] [facility], Pacer Clinic [facility] [address] [place] [address] Health Maintenance Due Date Last Done Comments Adult Wellness Visit 02/06/2018 02/06/2017 Depression Screening 07/17/2022 07/17/2021 COVID-19 Vaccine ( season) 2023 02/05/2022, 08/02/2021, 02/28/2021, Additional history exists Albumin/Creatinine Ratio 02/13/2024 023, 03/21/2022, 04/19/2021, Additional history exists HbA1c 04/26/2024 04/26/2023, 03/02, 04/19/2021, Additional history exists CKD PHOS USE SMARTSET 15811 06/26/202405/31, 04/19/2021, 11/27/2019, Additional history exists DXA Scan 07/18/2024 07/18/2022, 06/30, 12/22/2019, Additional history exists Influenza Vaccine (FLU shot) (Season Ended) 2024 04/19/2023, 01/30/2022, 12/28/2020, Additional history exists GFR 12/26/2024 06/25/2024, 03/0 11/2024, 02/17/2024, Additional history exists CKD HGB USE SMARTSET 06212 02/16/202502/16, 02/17/2024, 06/27/2023, Additional history exists TSH [...] D LEVEL ONCE IN A LIFETIME-USE SMARTSET# 49373 Completed 06/27/2023, 11/06/2021, 12/28/2019, Additional history exists [...] this encounter Medical Devices Implanted Type Area Carbonizer Device Identifier Shelf Expiration Date Model / Serial / Lot Lens Intraoc 21.5 - [id number] - [id number] Implanted:Qty: 1 on 05/12/2019 by Yury Brady MD at OR [facility] Right: Eye BAUSCH 12/30/2023 [id number] / [id number] / [id number] Lens Intraoc 22.5 - [id number] - [id number] Implanted:Qty: 1 on 04/05/2020 by Yury Brady MD at OR [facility] Left: Eye BAUSCH 09/28/2024 [id number] / [id number] / [id number] documented as of this encounter Advance Directives [...] Agen t (per Health Care Power of Video Poker [place] document) Guille Urban Adult Child Health Care Agen t (per Health Care Power of Video Poker [place] document) [email or web address] om Care Teams Music Supervisor Relationship Specialty Start Date End Date Rafa Bergman MD [address] [place] [address] [place] [address] PCP - General Family Medicine 04/19/21 documented as of this encounter
--- OUTSIDE RECORDS SUMMARY | 2024-07-23 23:57 | External Medical Summary | Summary of Care ---
Author Name Unknown Organization [facility] Address [address] [facility] [place] [address] Phone [phone] Care Team Providers Care Game Moderator Name Role Phone Rafa Bergman MD Primary Care Provide r Reason for Visit * Reason Onset Date Comments [facility]: Acute 07/18/2024 tomás SOSA HR--CXR results 07/17/24 Encounter Details Date Type Department Care Team (Late st Contact Info) Description 07/18/2024 11:15 AM EDT Scheduled Telephone [facility], [facility] [address] [facility] [place] [address] [facility], Nurse [facility] [address] [facility] [place] [address] Allergies Active Allergy Reactions Criticality Noted Date [...] goal LDL below 70,Coronary artery disease involving [place] coronary artery of [place] heart without angina pectoris TAKE ONE TABLET [...] tachycardia,Tach y-chintan syndrome (HCC),Coronary artery disease involving [place] coronary artery of [place] heart without angina pectoris,Presenc e of cardiac [...] 100 Tablet 3 07/13/2024 6:43 AM EDT Active predniSONE 10 MG Oral Tablet (Deltasone)Indic [...] with stent 11/27/2018 Atherosclerosis of [place] co ronary artery of [place] heart without angina pectoris 07/08/2018 Overview (11/21/2023): history of NSTEMI status post AMIE to LAD (culprit) and RCA, 04/28/2018 Assessment & Plan (06/23/2024 3:37 PM EDT): Follows with cardiology Continue statin Assessment & Plan (01/24/2024 4:40 PM EDT): Cardiac rehab at [facility] 2x week Assessment & Plan (11/21/2023 [...] 09/13/2022 11/08/2023 Atherosclerosis of coronary artery of [place] heart without angina pectoris 09/10/2022 10/31/2022 Hypothyroidism [...] filter 02/28/2015 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 [facility] sent a message to her land title examiner, but she has not heard back. Denies [...] call in 1 day [facility] [address] [facility] [place] [address] * Telephone Encounter - Kasey Sanabria RN - 07/18/2024 8:44 AM EDT Attempted to contact pt for follow up. No answer, phone disconnects after multiple rings. documented in this encounter Plan of Treatment Upcoming Encounters Date Type Department Care Team (Late st Contact Info) Description 07/22/2024 1:30 PM EDT Home Visit [facility] at [place], [facility] [address] [place] [address] Olinda Briggs RN [address] [place] [address] 07/28/2024 10:00 AM EDT Home Visit [facility] at [place], [facility] [address] [place] [address] Leon Live PA-C [address] [place] [address] 07/30/2024 1:30 PM EDT Imaging Radiology [facility] [address] [place] [phone] 08/11/2024 1:45 PM EDT Office Visit Ophthalmology, [facility] [address] [place] [phone] Pedro Tinsley DO [address] [place] [address] Nurse Roscoe Leyvas [address] [place] [address] Photographer Justen Leyva [address] [place] [address] 08/18/2024 10:20 AM EDT Laboratory Laboratory [address] [place] [phone] [place], [address] [place] [address] 08/25/2024 3:30 PM EDT Office Visit Hematology/Oncology [facility] Raina [place] [address] [place] [phone] Arianna Szymanski MD [address] [place] [address] 09/07/2024 3:30 PM EDT Office Visit Rheumatology [address] [place] [phone] José Miguel Cullen CRNP [address] [place] [address] [place] [address] 09/11/2024 12:50 PM EDT Office Visit Dermatology, Marilyn Jesu Garces [address] [place] [address] Dasha Nelson, PADelaneyC [address] [place] [address] 09/29/2024 3:10 PM EDT Office Visit Urogynecology [facility] [address] [place] [address] Quincy Garcia MD [address] [place] [address] 10/05/2024 1:30 PM EDT Office Visit Cardiology, Stephany Leyvas [place] [address] [place] [phone] Charles Ortega DO [address] [place] [address] 10/05/2024 2:15 PM EDT Telemedicine Neurology [facility] [place] [address] [place] [phone] Alfonso Manning MD [address] [place] [address] 12/30/2024 12:40 PM EDT Office Visit Family Medicine [address] [place] [phone] Irene Bowens MD [address] [place] [address] [place] [phone] 08/17/2025 2:30 PM EDT Cardiac Studies Cardiology [address] [place] [address] [place], Pacer Clinic [facility] [address] [place] [address] Health Maintenance Due Date Last Done Comments Adult Wellness Visit 02/06/2018 02/06/2017 Depression Screening 07/17/2022 07/17/2021 COVID-19 Vaccine ( season) 2023 02/05/2022, 08/02/2021, 02/28/2021, Additional history exists Albumin/Creatinine Ratio 02/13/2024 023, 03/21/2022, 04/19/2021, Additional history exists HbA1c 04/26/2024 04/26/2023, 03/02, 04/19/2021, Additional history exists CKD PHOS USE SMARTSET 69793 06/26/202405/31, 04/19/2021, 11/27/2019, Additional history exists DXA Scan 07/18/2024 07/18/2022, 06/30, 12/22/2019, Additional history exists Influenza Vaccine (FLU shot) (Season Ended) 2024 04/19/2023, 01/30/2022, 12/28/2020, Additional history exists GFR 12/26/2024 06/25/2024, 11/2024, 02/17/2024, Additional history exists CKD HGB USE SMARTSET 44087 02/16/202502/16, 02/17/2024, 06/27/2023, Additional history exists TSH [...] D LEVEL ONCE IN A LIFETIME-USE SMARTSET# 43730 Completed 06/27/2023, 11/06/2021, 12/28/2019, Additional history exists [...] this encounter Medical Devices Implanted Type Area Electronic Gluer Device Identifier Shelf Expiration Date Model / Serial / Lot Lens Intraoc 21.5 - [id number] - [id number] Implanted:Qty: 1 on 05/12/2019 by Yury Brady MD at OR [facility] Right: Eye BAUSCH 12/30/2023 [id number] / [id number] / [id number] Lens Intraoc 22.5 - [id number] - [id number] Implanted:Qty: 1 on 04/05/2020 by Yury Brady MD at OR [facility] Left: Eye BAUSCH 09/28/2024 [id number] / [id number] / [id number] documented as of this encounter Advance Directives Documents on File Type Date Recorded Patient Delimber Operator Expl anation Advance Directives and Living Will 03/11/2018 Krissyva Urban ADVANCE DIR ECTIVE * Full Code [...] Agen t (per Health Care Power of Security Systems Technician document) Guille Urban Adult Child Health Care Agen t (per Health Care Power of Security Systems Technician document) [email or web address] Care Teams Game Moderator Relationship Specialty Start Date End Date Rafa Bergman MD [address] [place] [address] [place] [address] PCP - General Family Medicine 04/19/21 documented as of this encounter
--- OUTSIDE RECORDS SUMMARY | 2024-07-23 23:57 | External Medical Summary | Summary of Care ---
Author Name Unknown Organization [facility] Address [address] [facility] [place] [address] Phone [phone] Care Team Providers Care Acupuncturist Name Role Phone Rafa Bergman MD Primary Care Provide r Reason for Visit * Reason Onset Date Comments [facility]: Acute 07/18/2024 tomás SOSA HR--CXR results 07/17/24 Encounter Details Date Type Department Care Team (Late st Contact Info) Description 07/18/2024 11:15 AM EDT Scheduled Telephone [facility], [facility] [address] [facility] [place] [address] [facility], Nurse [facility] [address] [facility] [place] [address] Allergies Active Allergy Reactions Criticality Noted Date Comments Colchicine Diarrhea 06/16/2018 Daptomycin 01/05/2015 Shortness of breath Imipenem Edema airway High 01/05/2015 Metoprolol Low 01/23/2021 Other reaction(s): fatigue Zoledronic Acid 04/24/2012 Myalgias, fever, chills, vomiting x 2 days Sulfa Antibiotics 12/22/2002 Bactrim--itchy all over, eyes swollen documented as of this encounter (statuses as of 07/20/2024) Medications ASPIRIN 81 MG PO TABS Take [...] goal LDL below 70,Coronary artery disease involving burns paiute coronary artery of burns paiute heart without angina pectoris TAKE ONE TABLET [...] tachycardia,Tach y-chintan syndrome (HCC),Coronary artery disease involving burns paiute coronary artery of burns paiute heart without angina pectoris,Presenc e of cardiac [...] as of this encounter (statuses as of 07/20/2024) Active Problems Problem Noted Date Diagnosed Date [...] 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 History of [place] (myocardial infarction) 11/27/2022 Assessment & Plan (04/16/2024 [...] S/P angioplasty with stent 11/27/2018 Atherosclerosis of burns pa[place] co ronary artery of burns paiute heart without angina pectoris 07/08/2018 Overview (11/21/2023): history of NSTEMI status post AMIE to LAD (culprit) and RCA, 04/28/2018 Assessment & Plan (06/23/2024 3:37 PM EDT): Follows with cardiology Continue statin Assessment & Plan (01/24/2024 4:40 PM EDT): Cardiac rehab at [facility] 2x week Assessment & Plan (11/21/2023 5:32 [...] as of this encounter (statuses as of 07/20/2024) Resolved Problems Problem Noted Date Diagnosed Date Resolved Date Purulent endophthalmitis of right eye 01/03/2023 11/08/2023 Other pulmonary embolism wit h acute cor pulmonale 10/01/2022 04/26/2023 Overview (04/26/2023): history Medical home patient encounter 09/13/2022 11/08/2023 Atherosclerosis of coronary artery of burns pai[place] heart without angina pectoris 09/10/2022 10/31/2022 Hypothyroidism [...] lesion- rt shoulder 11/03/200108/30 Prolapse of vaginal peetrson 10/28/2000 Overview (07/05/2015): ICD-10 update of inactive [...] filter 02/28/2015 Atherosclerotic heart diseas e of burns paiute coronary artery with angina pectoris 11/2018 CKD (chronic kidney disease) stage 2, GFR 60-89 ml/min 03/12/2019 documented as of this encounter (statuses as of 07/20/2024) Immunizations Name Administration Dates Next Due COVID-19 [...] 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 Denies [...] and takes as directed. RECOMMENDATION: Message to [facility] for review/recommendations Limit exertion causing increased SOB/elevated HR/lightheadedness Continue to take medications as ordered Monitor vs--HR, BP, pulse ox--report SpO2 persistently less than 90%, SBP persistently >140, HR persistently >120 unrelieved with rest Continue with adequate oral hydration Safety with ambulation, fall prevention reinforced 911 with chest pain, respiratory distress or acute changes in condition F/u call in 1 day CHRISTINA [place] at [place], [facility] [address] [place] [address] * Telephone Encounter - Kasey Sanabria RN - 07/18/2024 8:44 AM EDT Attempted to contact pt for follow up. No answer, phone disconnects after multiple rings. documented in this encounter Plan of Treatment Upcoming Encounters Date Type Department Care Team (Late st Contact Info) Description 07/22/2024 1:30 PM EDT Home Visit Jone at [facility] [address] [place] [address] Olinda Briggs RN 132 [place] [address] 07/28/2024 10:00 AM EDT Home Visit Jone at [facility] [address] [place] [address] Leon Live PA-C [address] [place] [address] 07/30/2024 1:30 PM EDT Imaging Radiology [facility] 132 [place] [phone] 08/11/2024 1:45 PM EDT Office Visit Ophthalmology, [facility] [place] [phone] Pedro Tinsley DO [address] [place] [address] Nurse Roscoe Leyva [address] [place] [address] Photographer Justen Leyva [address] [place] [address] 08/18/2024 10:20 AM EDT Laboratory Laboratory [address] [place] [phone] [place] [address] 08/25/2024 3:30 PM EDT Office Visit Hematology/Oncology [facility] [address] [place] [phone] Arianna Szymanski MD [address] [place] [address] 09/07/2024 3:30 PM EDT Office Visit Rheumatology [address] [place] [phone] José Miguel Cullen CRNP [address] [place] [phone] 09/11/2024 12:50 PM EDT Office Visit Dermatology, Jesu Wilson [address] [place] [address] Dasha Nelson PA-C [address] [place] [address] 09/29/2024 3:10 PM EDT Office Visit Urogynecology Stephany Hoover [address] [place] [address] Quincy Garcia MD [address] [place] [address] 10/05/2024 1:30 PM EDT Office Visit Cardiology, [facility] [address] [place] [phone] Charles Ortega DO [address] [place] [address] 10/05/2024 2:15 PM EDT Telemedicine Neurology [facility] [address] [place] [phone] Alfonso Manning MD [address] [place] [address] 12/30/2024 12:40 PM EDT Office Visit Family Medicine [address] [place] [phone] Irene Bowens MD [address] [place] [address] [place] [phone] 08/17/2025 2:30 PM EDT Cardiac Studies Cardiology [address] [place] [address] [facility] [address] [place] [address] Health Maintenance Due Date Last Done Comments Adult Wellness Visit 02/06/2018 02/06/2017 Depression Screening 07/17/2022 07/17/2021 COVID-19 Vaccine ( season) 2023 02/05/2022, 08/02/2021, 02/28/2021, Additional history exists Albumin/Creatinine Ratio 02/13/2024 023, 03/21/2022, 04/19/2021, Additional history exists HbA1c 04/26/2024 04/26/2023, 03/02, 04/19/2021, Additional history exists CKD PHOS USE SMARTSET 55102 06/26/202405/31, 04/19/2021, 11/27/2019, Additional history exists DXA Scan 07/18/2024 07/18/2022, 06/30, 12/22/2019, Additional history exists Influenza Vaccine (FLU shot) (Season Ended) 2024 04/19/2023, 01/30/2022, 12/28/2020, Additional history exists GFR 12/26/2024 06/25/2024, 03/0 11/2024, 02/17/2024, Additional history exists CKD HGB USE SMARTSET 94560 02/16/202502/16, 02/17/2024, 06/27/2023, Additional history exists TSH [...] D LEVEL ONCE IN A LIFETIME-USE SMARTSET# 13150 Completed 06/27/2023, 11/06/2021, 12/28/2019, Additional history exists [...] this encounter Medical Devices Implanted Type Area Wrapper Rewinder Device Identifier Shelf Expiration Date Model / Serial / Lot Lens Intraoc 21.5 - [id number] - [id number] Implanted:Qty: 1 on 05/12/2019 by Yury Brady MD at OR [facility] Right: Eye BAUSCH 12/30/2023 [id number] / [id number] / [id number] Lens Intraoc 22.5 - [id number] - [id number] Implanted:Qty: 1 on 04/05/2020 by Yury Brady MD at OR [facility] Left: Eye BAUSCH 09/28/2024 [id number] / [id number] / [id number] documented as of this encounter Advance Directives Documents on File Type Date Recorded Patient Ball Truing Machine Operator Expl anation Advance Directives and [...] Agen t (per Health Care Power of Family Practice Md document) [facility]ille [facility] Adult Child Health Care Agen t (per Health Care Power of Family Practice Md document) [email or web address] om Care Teams Acupuncturist Relationship Specialty Start Date End Date Rafa Bergman MD [address] [place] [address] [place] [address] PCP - General Family Medicine 04/19/21 documented as of this encounter
--- OUTSIDE RECORDS SUMMARY | 2024-07-23 23:57 | External Medical Summary | Summary of Care ---
Author Name Unknown Organization [facility] Address [address] [facility] [place] [address] Phone [phone] Care Team Providers Care Traffic Rate Clerk Name Role Phone Rafa Bergman MD Primary Care Provide r Reason for Visit * Reason Onset Date Comments [facility]: Acute 07/18/2024 tomás SOSA HR--CXR results 07/17/24 Encounter Details Date Type Department Care Team (Late st Contact Info) Description 07/18/2024 11:15 AM EDT Scheduled Telephone [facility], [facility] [address] [facility] [place] [address] [facility], Nurse [facility] [address] [facility] [place] [address] Allergies Active Allergy Reactions Criticality Noted Date Comments Colchicine Diarrhea 06/16/2018 Daptomycin 01/05/2015 Shortness of breath Imipenem Edema airway High 01/05/2015 Metoprolol Low 01/23/2021 Other reaction(s): fatigue Zoledronic Acid 04/24/2012 Myalgias, fever, chills, vomiting x 2 days Sulfa Antibiotics 12/22/2002 Bactrim--itchy all over, eyes swollen documented as of this encounter (statuses as of 07/21/2024) Medications ASPIRIN 81 MG PO TABS Take [...] goal LDL below 70,Coronary artery disease involving qawalangin coronary artery of qaw[place]angin heart without angina pectoris TAKE ONE TABLET [...] tachycardia,Tach y-chintan syndrome (HCC),Coronary artery disease involving qawalangin coronary artery of qawalangin heart without angina pectoris,Presenc e of cardiac [...] as of this encounter (statuses as of 07/21/2024) Active Problems Problem Noted Date Diagnosed Date [...] 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 History of [place] (myocardial infarction) 11/27/2022 Assessment & Plan (04/16/2024 [...] S/P angioplasty with stent 11/27/2018 Atherosclerosis of qaw[place]angin co ronary artery of qawalangin heart without angina pectoris 07/08/2018 Overview (11/21/2023): history of NSTEMI status post AMIE to LAD (culprit) and RCA, 04/28/2018 Assessment & Plan (06/23/2024 3:37 PM EDT): Follows with cardiology Continue statin Assessment & Plan (01/24/2024 4:40 PM EDT): Cardiac rehab at [facility] 2x week Assessment & Plan (11/21/2023 [...] as of this encounter (statuses as of 07/21/2024) Resolved Problems Problem Noted Date Diagnosed Date Resolved Date Purulent endophthalmitis of right eye 01/03/2023 11/08/2023 Other pulmonary embolism wit h acute cor pulmonale 10/01/2022 04/26/2023 Overview (04/26/2023): history Medical home patient encounter 09/13/2022 11/08/2023 Atherosclerosis of coronary artery of qawalangin heart without angina pectoris 09/10/2022 10/31/2022 Hypothyroidism [...] filter 02/28/2015 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 * Telephone Encounter - Justin Cornin MD - 07/18/2024 10:26 AM EDT Agree with recommendations as written in note. Nothing to add to thoughtful and appropriate reccs. E * Telephone Encounter - Kasey Sanabria RN - 07/18/2024 8:55 AM EDT Images from the original note were not included. SITUATION: 10 day onset of worsening SOSA and elevated HR---CXR ordered by [facility] 07/17/24--results below BACKGROUND: PMHx: HTN, CKD 3, Tachy-chintan syndrome s/p pacemaker, H/o [place], h/o pulmonary embolism on Eliquis H/o left [...] be elevated in the 120's with ambulation. 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 Denies [...] and takes as directed. RECOMMENDATION: Message to [facility] for review/recommendations Limit [...] call in 1 day CHRISTINA [facility] at [facility] [address] [facility] [place] [address] * Telephone Encounter - Kasey Sanabria RN - 07/18/2024 8:44 AM EDT Attempted to contact pt for follow up. No answer, phone disconnects after multiple rings. documented in this encounter Plan of Treatment Upcoming Encounters Date Type Department Care Team (Late st Contact Info) Description 07/22/2024 1:30 PM EDT Home Visit Jone at [facility] [address] [place] [address] Olinda Briggs RN 132 [facility] [place] [address] 07/28/2024 10:00 AM EDT [facility] Visit [facility], [facility] [address] [place] [address] Leon Live PA-C [address] [place] [address] 07/30/2024 1:30 PM EDT Imaging Radiology [facility] [address] [place] [phone] 08/11/2024 1:45 PM EDT Office Visit Ophthalmology, [facility] [address] [place] [phone] Pedro Tinsley DO [address] [place] [address] Nurse Roscoe Leyva [address] [place] [address] Photographer Justen Leyva [address] [place] [address] 08/18/2024 10:20 AM EDT Laboratory Laboratory [address] [place] [phone] [place] [address] 08/25/2024 3:30 PM EDT Office Visit Hematology/Oncology [facility] [place] [address] [place] [phone] Arianna Szymanski MD [address] [place] [address] 09/07/2024 3:30 PM EDT Office Visit Rheumatology [address] [place] [phone] José Miguel Cullen CRNP [address] [place] [phone] 09/11/2024 12:50 PM EDT Office Visit Dermatology, Marilyn GarcesJesu [address] [place] [address] Dasha Nelson PA-C [address] [place] [address] 09/29/2024 3:10 PM EDT Office Visit Urogynecology [facility] [address] [facility] [place] [address] Quincy Garcia MD [address] [place] [address] 10/05/2024 1:30 PM EDT Office Visit Cardiology, [facility] [address] [place] [phone] Charles Ortega, [address] [place] [address] 10/05/2024 2:15 PM EDT Telemedicine Neurology [facility] [address] [place] [phone] Alfonso Manning MD [address] [place] [address] 12/30/2024 12:40 PM EDT Office Visit Family Medicine [address] [place] [phone] Irene Bowens MD [address] [place] [address] [place] [address] 08/17/2025 2:30 PM EDT Cardiac Studies Cardiology [address] [place] [address] [facility], Pacer [address] [place] [address] Health Maintenance Due Date Last Done Comments Adult Wellness Visit 02/06/2018 02/06/2017 Depression Screening 07/17/2022 07/17/2021 COVID-19 Vaccine ( season) 2023 02/05/2022, 08/02/2021, 02/28/2021, Additional history exists Albumin/Creatinine Ratio 02/13/2024 023, 03/21/2022, 04/19/2021, Additional history exists HbA1c 04/26/2024 04/26/2023, 03/02, 04/19/2021, Additional history exists CKD PHOS USE SMARTSET 99212 06/26/202405/31, 04/19/2021, 11/27/2019, Additional history exists DXA Scan 07/18/2024 07/18/2022, 06/30, 12/22/2019, Additional history exists Influenza Vaccine (FLU shot) (Season Ended) 2024 04/19/2023, 01/30/2022, 12/28/2020, Additional history exists GFR 12/26/2024 06/25/2024, 03/0 11/2024, 02/17/2024, Additional history exists CKD HGB USE SMARTSET 01925 02/16/202502/16, 02/17/2024, 06/27/2023, Additional history exists TSH [...] D LEVEL ONCE IN A LIFETIME-USE SMARTSET# [id number] Completed 06/27/2023, 11/06/2021, 12/28/2019, Additional history exists [...] this encounter Medical Devices Implanted Type Area Passenger Agent Device Identifier Shelf Expiration Date Model / Serial / Lot Lens Intraoc 21.5 - [id number] - [id number] Implanted:Qty: 1 on 05/12/2019 by Yury Brady MD at OR [facility] Right: Eye BAUSCH 12/30/2023 [id number] / [id number] / [id number] Lens Intraoc 22.5 - [id number] - [id number] Implanted:Qty: 1 on 04/05/2020 by Yury Brady MD at OR [facility] Left: Eye BAUSCH 09/28/2024 [id number] / [id number] / [id number] documented as of this encounter Advance Directives Documents on File Type Date Recorded Patient Ivf Embryologist Expl anation Advance Directives and Living Will [...] Agen t (per Health Care Power of Tea And Spice Supervisor document) [facility] Child [facility] Vika corey (per Health Care Power of Tea And Spice Supervisor document) [email or web address] om Care Teams Traffic Rate Clerk Relationship Specialty Start Date End Date Rafa Bergman MD [address] [place] [address] [place] [address] PCP - General Family Medicine 04/19/21 documented as of this encounter
--- OUTSIDE RECORDS SUMMARY | 2024-07-23 23:57 | External Medical Summary | Summary of Care ---
Author Name Unknown Organization [facility] Address [address] [facility] [place] [address] Phone [phone] Care Team Providers Care Watch Caser Name Role Phone Rafa Bergman MD Primary Care Provide r Reason for Visit * Reason Onset Date Comments [facility]: Acute 07/18/2024 tomás SOSA HR--CXR results 07/17/24 Encounter Details Date Type Department Care Team (Late st Contact Info) Description 07/18/2024 11:15 AM EDT Scheduled Telephone [facility], [facility] [address] [facility] [place] [address] [facility], Nurse [facility] [address] [facility] [place] [address] Allergies Active Allergy Reactions Criticality Noted Date Comments Colchicine Diarrhea 06/16/2018 Daptomycin 01/05/2015 Shortness of breath Imipenem Edema airway High 01/05/2015 Metoprolol Low 01/23/2021 Other reaction(s): fatigue Zoledronic Acid 04/24/2012 Myalgias, fever, chills, vomiting x 2 days Sulfa Antibiotics 12/22/2002 Bactrim--itchy all over, eyes swollen documented as of this encounter (statuses as of 07/18/2024) Medications ASPIRIN 81 MG PO TABS Take [...] goal LDL below 70,Coronary artery disease involving [place] coronary artery of [place] heart without angina pectoris TAKE ONE TABLET [...] tachycardia,Tach y-chintan syndrome (HCC),Coronary artery disease involving [place] coronary artery of [place] heart without angina pectoris,Presenc e of cardiac [...] as of this encounter (statuses as of 07/18/2024) Active Problems Problem Noted Date Diagnosed Date [...] eye 01/03/2023 History of OR (myocardial infarction) 11/27/2022 Assessment & Plan (04/16/2024 [...] with stent 11/27/2018 Atherosclerosis of [place] co ronary artery of [place] heart without angina pectoris 07/08/2018 Overview (11/21/2023): history of NSTEMI status post AMIE to LAD (culprit) and RCA, 04/28/2018 Assessment & Plan (06/23/2024 3:37 PM EDT): Follows with cardiology Continue statin Assessment & Plan (01/24/2024 4:40 PM EDT): Cardiac rehab at [facility] 2x week Assessment & Plan (11/21/2023 [...] as of this encounter (statuses as of 07/18/2024) Resolved Problems Problem Noted Date Diagnosed Date Resolved Date Purulent endophthalmitis of right eye 01/03/2023 11/08/2023 Other pulmonary embolism wit h acute cor pulmonale 10/01/2022 04/26/2023 Overview (04/26/2023): history Medical home patient encounter 09/13/2022 11/08/2023 Atherosclerosis of coronary artery of [place] heart without angina pectoris 09/10/2022 10/31/2022 Hypothyroidism [...] Atherosclerotic heart diseas e of [place] coronary artery with angina pectoris 11/2018 CKD (chronic kidney disease) stage 2, GFR 60-89 ml/min 03/12/2019 documented as of this encounter (statuses as of 07/18/2024) Immunizations Name Administration Dates Next Due COVID-19 [...] 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 Denies [...] and takes as directed. RECOMMENDATION: Message to [facility] for review/recommendations Limit exertion causing increased SOB/elevated HR/lightheadedness Continue to take medications as ordered Monitor vs--HR, BP, pulse ox--report SpO2 persistently less than 90%, SBP persistently >140, HR persistently >120 unrelieved with rest Continue with adequate oral hydration Safety with ambulation, fall prevention reinforced 911 with chest pain, respiratory distress or acute changes in condition F/u call in 1 day [facility] [address] [facility] [place] [phone] * Telephone Encounter - Kasey Sanabria RN - 07/18/2024 8:44 AM EDT Attempted to contact pt for follow up. No answer, phone disconnects after multiple rings. documented in this encounter Plan of Treatment Upcoming Encounters Date Type Department Care Team (Late st Contact Info) Description 07/19/2024 10:00 AM EDT Scheduled Telephone [facility], [facility] [address] [place] [address] [facility], Nurse [facility] 132 [place] [address] 07/22/2024 1:30 PM EDT Home Visit [facility] at [facility] [address] [place] [address] Olinda rBiggs RN [address] [place] [address] 07/28/2024 10:00 AM EDT Home Visit [facility], [facility] [address] [place] [address] Leon Live PA-C [address] [place] [address] 07/30/2024 1:30 PM EDT Imaging Radiology [facility] [address] [place] [phone] 08/11/2024 1:45 PM EDT Office Visit Ophthalmology, [facility] [address] [place] [phone] Pedro Tinsley, [address] [place] [address] Nurse Roscoe Leyva [address] [place] [address] Photographer Justen Leyva [address] [place] [address] 08/18/2024 10:20 AM EDT Laboratory Laboratory [address] [place] [phone] [place] [address] 08/25/2024 3:30 PM EDT Office Visit Hematology/Oncology [facility]ta[facility] [place] [address] [place] [address] Arianna Szymanski MD [address] [place] [address] 09/07/2024 3:30 PM EDT Office Visit Rheumatology [address] [place] [phone] José Miguel Cullen CRNP [address] [place] [address] [place] [address] 09/11/2024 12:50 PM EDT Office Visit Dermatology, Jesu Wilson [address] [place] [phone] Dasha Nelson PA-C [address] [place] [address] 09/29/2024 3:10 PM EDT Office Visit Urogynecology [facility] [address] [facility] [address] Quincy Garcia MD [address] [place] [address] 10/05/2024 1:30 PM EDT Office Visit Cardiology, [facility] [address] [place] [address] Charles Ortega, DO [address] [place] [address] 10/05/2024 2:15 PM EDT Telemedicine Neurology [facility] [address] [place] [address] Alfonso Manning MD [address] [place] [address] 12/30/2024 12:40 PM EDT Office Visit Family Medicine [address] [place] [phone] Irene Bowens MD [address] [place] [address] [place] [address] 08/17/2025 2:30 PM EDT Cardiac Studies Cardiology [address] [place] [address] [place] [address] [place] [address] Health Maintenance Due Date Last Done Comments Adult Wellness Visit 02/06/2018 02/06/2017 Depression Screening 07/17/2022 07/17/2021 COVID-19 Vaccine ( season) 2023 02/05/2022, 08/02/2021, 02/28/2021, Additional history exists Albumin/Creatinine Ratio 02/13/2024 023, 03/21/2022, 04/19/2021, Additional history exists HbA1c 04/26/2024 04/26/2023, 03/02, 04/19/2021, Additional history exists CKD PHOS USE SMARTSET 62980 06/26/202405/31, 04/19/2021, 11/27/2019, Additional history exists DXA Scan 07/18/2024 07/18/2022, 06/30, 12/22/2019, Additional history exists Influenza Vaccine (FLU shot) (Season Ended) 2024 04/19/2023, 01/30/2022, 12/28/2020, Additional history exists GFR 12/26/2024 06/25/2024, 03/0 11/2024, 02/17/2024, Additional history exists CKD HGB USE SMARTSET 44425 02/16/202502/16, 02/17/2024, 06/27/2023, Additional history exists TSH [...] D LEVEL ONCE IN A LIFETIME-USE SMARTSET# 02179 Completed 06/27/2023, 11/06/2021, 12/28/2019, Additional history exists [...] this encounter Medical Devices Implanted Type Area Brand Marketing Coordinator Device Identifier Shelf Expiration Date Model / Serial / Lot Lens Intraoc 21.5 - [id number] - [id number] Implanted:Qty: 1 on 05/12/2019 by Yury Brady MD at OR [facility] Right: Eye BAUSCH 12/30/2023 [id number] / [id number] / [id number] Lens Intraoc 22.5 - [id number] - [id number] Implanted:Qty: 1 on 04/05/2020 by Yury Brady MD at OR [facility] Left: Eye BAUSCH 09/28/2024 [id number] / [id number] / [id number] documented as of this encounter Advance Directives Documents on File Type Date Recorded Patient Slot Key Person Expl anation Advance Directives and Living Will [...] Agen t (per Health Care Power of Fishing Tool Supervisor document) Guille Urban Adult Child Health Care Agen t (per Health Care Power of Fishing Tool Supervisor document) [email or web address] om Care Teams Watch Caser Relationship Specialty Start Date End Date Rafa Bergman MD [address] [place] [address] [place] [address] PCP - General Family Medicine 04/19/21 documented as of this encounter
--- OUTSIDE RECORDS SUMMARY | 2024-07-23 23:57 | External Medical Summary | Summary of Care ---
Author Name Unknown Organization [facility] Address [address] [facility] [place] [address] Phone [phone] Care Team Providers Care Professor Of Sociology Name Role Phone Sandra Alonso MD Primary Care Provide r Reason for Visit * Reason Comments Medication Refill Encounter Details Date Type Department Care Team (Late st Contact Info) Description 07/19/2024 Refill [facility], [facility] [address] [facility] [place] [address] Viet Braden MD [address] [place] [address] [place] [address] Allergies Active Allergy Reactions Criticality Noted Date [...] goal LDL below 70,Coronary artery disease involving [place] coronary artery of [place] heart without angina pectoris TAKE ONE TABLET [...] tachycardia,Tach y-chintan syndrome (HCC),Coronary artery disease involving [place] coronary artery of [place] heart without angina pectoris,Presenc e of cardiac [...] Tablet in the evening. 90 Tablet 3 07/22/19 25 Active Pantoprazole Sodium 40 MG Oral [...] 01/03/2023 History of PR (myocardial infarction) 11/27/2022 Assessment & Plan (04/16/2024 [...] S/P angioplasty with stent 11/27/2018 Atherosclerosis of [place] co ronary artery of [place] heart without angina pectoris 07/08/2018 Overview (11/21/2023): history of NSTEMI status post AMIE to LAD (culprit) and RCA, 04/28/2018 Assessment & Plan (06/23/2024 3:37 PM EDT): Follows with cardiology Continue statin Assessment & Plan (01/24/2024 4:40 PM EDT): Cardiac rehab at [facility] 2x week Assessment & Plan (11/21/2023 5:32 [...] 09/13/2022 11/08/2023 Atherosclerosis of coronary artery of [place] heart without angina pectoris 09/10/2022 10/31/2022 Hypothyroidism [...] filter 02/28/2015 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 Authorizing Provider: SANDRA ALONSO * Telephone Encounter - Muriel Neil LPN - 07/20/2024 5:13 PM EDTPending Prescriptions: Disp Refills Pantoprazole Sodium 40 MG Oral Tablet Ruthann*90 Tab*3 Sig: Take 1 Tablet by mouth in the morning and 1 Tablet in the evening. * Telephone Encounter - Muriel Neil LPN - 07/20/2024 5:12 PM EDT Did you pend patient's preferred pharmacy and medication before forwarding?yes Pharmacy: [facility] Pending Prescriptions: Disp Refills Pantoprazole Sodium 40 MG Oral Tablet Del*90 Tab*3 Sig: Take 1 Tablet by mouth in the morning and 1 Tablet in the evening. Last Visit: Visit date not found (in office), Visit date not found (telemedicine) Next Visit: 07/22/2024 If no future appointments scheduled, and last appointment is greater than a year ago, please schedule patient for a follow-up appointment Last date the medication was ordered: 01/09/2024 Is this request for a controlled substance?No Urine Drug Screen:No results found. However, due to the size of the patient record, not all encounters were searched. Please check Results Review for a complete set of results. Patient Phone Numbers Labs: Lab Results Component Value Date/Time CREAT 1.0 06/25/2024 09:25 AM CREAT 1.0 02/12/2020 08:32 AM CREAT 0.7 07/15/1996 11:28 AM POTASSIUM 4.2 06/25/2024 09:25 AM POTASSIUM 4.2 02/12/2020 08:32 AM POTASSIUM 4.5 07/15/1996 11:28 AM TSH 2.50 06/25/2024 09:25 AM TSH 3.11 02/01/2020 10:03 AM TSH 11.33 (H) 07/15/1996 11:28 AM LDL 21 11/05/2023 01:58 PM LDL 22 11/27/2019 08:12 AM LDL NOT APPLICABLE 11/27/2019 08:12 AM LDL 103. 07/15/1996 11:28 AM ALT 16 02/17/2024 11:19 AM ALT 15 02/12/2020 08:32 AM ALT 24 07/15/1996 11:28 AM HGBA1C 5.5 04/26/2023 02:53 PM HGBA1C 5.7 08/27/2008 04:40 PM * Telephone Encounter - Nichole Jones RPh - 07/19/2024 11:53 AM EDT Pending Prescriptions: Disp Refills Pantoprazole Sodium 40 MG Oral Tablet Rtuhann*90 Tab*3 Sig: Take 1Tablet by mouth in the morning and 1 Tablet in the evening. documented in this encounter Plan of Treatment Upcoming Encounters Date Type Department Care Team (Late st Contact Info) Description 07/22/2024 1:30 PM EDT Home Visit [facility] [place], [facility] [address] [place] [address] Olinda Briggs, RN [address] [place] [address] 07/28/2024 10:00 AM EDT Home Visit [facility] [place], [facility] [address] [place] [address] Leon Live PA-C [address] [place] [address] 07/30/2024 1:30 PM EDT Imaging Radiology [facility] [address] [place] [phone] 08/11/2024 1:45 PM EDT Office Visit Ophthalmology, [facility] [address] [place] [phone] Pedro Tinsley DO [address] [place] [address] Nurse Roscoe Leyva [address] [place] [address] Photographer uJsten Leyva [address] [place] [address] 08/18/2024 10:20 AM EDT Laboratory Laboratory [address] [place] [phone] [address] [place] [address] 08/25/2024 3:30 PM EDT Office Visit Hematology/Oncology [facility] [address] [place], [place] [address] Arianna Szymanski MD [address] [place] [address] 09/07/2024 3:30 PM EDT Office Visit Rheumatology [address] [place] [phone] José Miguel Cullen CRNP [address] [place] [address] 09/11/2024 12:50 PM EDT Office Visit Dermatology, Jesu Wilson [address] [place] [address] Dasha Nelson PA-C [address] [place] [address] 09/29/2024 3:10 PM EDT Office Visit Urogynecology [facility] [address] [place] [address] Quincy Garcia MD [address] [place] [address] 10/05/2024 1:30 PM EDT Office Visit Cardiology, [facility] [address] [place] [phone] Charles Ortega, DO [address] [place] [address] 10/05/2024 2:15 PM EDT Telemedicine Neurology [facility] [address] [place], [place] [address] Alfonso Manning MD [address] [place] [address] 12/30/2024 12:40 PM EDT Office Visit Family Medicine [address] [place] [phone] Irene Bowens MD [address] [place] [address] [place] [phone] 08/17/2025 2:30 PM EDT Cardiac Studies Cardiology [address] [place] [address] [place], [facility] [address] [place] [address] Health Maintenance Due Date Last Done Comments Adult Wellness Visit 02/06/2018 02/06/2017 Depression Screening 07/17/2022 07/17/2021 COVID-19 Vaccine ( season) 2023 02/05/2022, 08/02/2021, 02/28/2021, Additional history exists Albumin/Creatinine Ratio 02/13/2024 023, 03/21/2022, 04/19/2021, Additional history exists HbA1c 04/26/2024 04/26/2023, 03/02, 04/19/2021, Additional history exists CKD PHOS USE SMARTSET 52252 06/26/202405/31, 04/19/2021, 11/27/2019, Additional history exists DXA Scan 07/18/2024 07/18/2022, 06/30, 12/22/2019, Additional history exists Influenza Vaccine (FLU shot) (Season Ended) 2024 04/19/2023, 01/30/2022, 12/28/2020, Additional history exists GFR 12/26/2024 06/25/2024, 03/0 11/2024, 02/17/2024, Additional history exists CKD HGB USE SMARTSET 46676 02/16/202502/16, 02/17/2024, 06/27/2023, Additional history exists TSH [...] D LEVEL ONCE IN A LIFETIME-USE SMARTSET# 38141 Completed 06/27/2023, 11/06/2021, 12/28/2019, Additional history exists [...] this encounter Medical Devices Implanted Type Area Saddle Cutter Device Identifier Shelf Expiration Date Model / Serial / Lot Lens Intraoc 21.5 - [id number] - [id number] Implanted:Qty: 1 on 05/12/2019 by Yury Brady MD at OR [facility] Right: Eye BAUSCH 12/30/2023 [id number] / [id number] / [id number] Lens Intraoc 22.5 - [id number] - [id number] Implanted:Qty: 1 on 04/05/2020 by Yury Brady MD at OR [facility] Left: Eye BAUSCH 09/28/2024 [id number] / [id number] / [id number] documented as of this encounter Advance Directives Documents on File Type Date Recorded Patient Masseur/Masseuse Expl anation Advance Directives and Living Will [...] Agen t (per Health Care Power of Service Center Technician document) Guille Isaacncer Adult Child Health Care Agen t (per Health Care Power of Service Center Technician document) [email or web address] om Care Teams Professor Of Sociology Relationship Specialty Start Date End Date Sandra Alonso MD [address] [place] [address] [place] [address] PCP - General Family Medicine 04/19/21 documented as of this encounter
--- OUTSIDE RECORDS SUMMARY | 2024-07-23 23:57 | External Medical Summary | Summary of Care ---
Author Name Unknown Organization [facility] Address [address] [facility] [place] [address] Phone [phone] Care Team Providers Care International Account Representative Name Role Phone Rafa Bergman MD Primary Care Provide r Reason for Visit * Reason Onset Date Comments [facility]: Acute 07/18/2024 tomás SOSA HR--CXR results 07/17/24 Encounter Details Date Type Department Care Team (Late st Contact Info) Description 07/18/2024 11:15 AM EDT Scheduled Telephone [facility], [facility] [address] [facility] [place] [address] [facility], Nurse [facility] [address] [facility] [place] [address] Allergies Active Allergy Reactions Criticality Noted Date [...] goal LDL below 70,Coronary artery disease involving [place] coronary artery of [place] heart without angina pectoris TAKE ONE TABLET [...] tachycardia,Tach y-chintan syndrome (HCC),Coronary artery disease involving [place] coronary artery of [place] heart without angina pectoris,Presenc e of cardiac [...] 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 History of LA (myocardial infarction) 11/27/2022 Assessment & Plan (04/16/2024 [...] S/P angioplasty with stent 11/27/2018 Atherosclerosis of [place] co ronary artery of [place] heart without angina pectoris 07/08/2018 Overview (11/21/2023): history of NSTEMI status post AMIE to LAD (culprit) and RCA, 04/28/2018 Assessment & Plan (06/23/2024 3:37 PM EDT): Follows with cardiology Continue statin Assessment & Plan (01/24/2024 4:40 PM EDT): Cardiac rehab at [facility] 2x week Assessment & Plan [...] 09/13/2022 11/08/2023 Atherosclerosis of coronary artery of [place] heart without angina pectoris 09/10/2022 10/31/2022 Hypothyroidism [...] filter 02/28/2015 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 Denies [...] and takes as directed. RECOMMENDATION: Message to [facility] for review/recommendations Limit exertion causing increased SOB/elevated HR/lightheadedness Continue to take medications as ordered Monitor vs--HR, BP, pulse ox--report SpO2 persistently less than 90%, SBP persistently >140, HR persistently >120 unrelieved with rest Continue with adequate oral hydration Safety with ambulation, fall prevention reinforced 911 with chest pain, respiratory distress or acute changes in condition F/u call in 1 day CHRISTINA [place] at [facility] [address] [facility] [place] [address] * Telephone Encounter - Kasey Sanabria RN - 07/18/2024 8:44 AM EDT Attempted to contact pt for follow up. No answer, phone disconnects after multiple rings. documented in this encounter Plan of Treatment Upcoming Encounters Date Type Department Care Team (Late st Contact Info) Description 07/22/2024 1:30 PM EDT Home Visit [facility] at [facility] [address] [place] [address] Olinda Briggs RN [address] [facility] [place] [address] 07/28/2024 10:00 AM EDT Home Visit [facility], [facility] [address] [place] [address] Leon Liev PA-C [address] [place] [address] 07/30/2024 1:30 PM EDT Imaging Radiology [facility] [address] [place] [phone] 08/11/2024 1:45 PM EDT Office Visit Ophthalmology, [facility] [address] [place] [phone] Pedro Tinsley DO [address] [place] [address] Nurse Roscoe Leyva [address] [place] [address] Photographer Justen Leyva [address] [place] [address] 08/18/2024 10:20 AM EDT Laboratory Laboratory [address] [place] [phone] [place] [address] 08/25/2024 3:30 PM EDT Office Visit Hematology/Oncology [facility] [place] [address] [place] [phone] Arianna Szymanski MD [address] [place] [address] 09/07/2024 3:30 PM EDT Office Visit Rheumatology [address] [place] [phone] José Miguel Cullen CRNP [address] [place] [phone] 09/11/2024 12:50 PM EDT Office Visit Dermatology, Marilyn GarcesJesu [address] [place] [address] Dasha Nelson PA-C [address] [place] [address] 09/29/2024 3:10 PM EDT Office Visit Urogynecology [facility] [address] [facility] [place] [address] Quincy Garcia MD [address] [place] [address] 10/05/2024 1:30 PM EDT Office Visit Cardiology, [facility] [address] [place] [phone] Charles Ortega, [address] [place] [address] 10/05/2024 2:15 PM EDT Telemedicine Neurology [facility] [address] [place] [address] Alfonso Manning MD [address] [place] [address] 12/30/2024 12:40 PM EDT Office Visit Family Medicine [address] [place] [phone] Irene Bowens MD [address] [place] [address] [place] [phone] 08/17/2025 2:30 PM EDT Cardiac Studies Cardiology [address] [place] [address] [facility], Pacer [address] [place] [address] Health Maintenance Due Date Last Done Comments Adult Wellness Visit 02/06/2018 02/06/2017 Depression Screening 07/17/2022 07/17/2021 COVID-19 Vaccine ( season) 2023 02/05/2022, 08/02/2021, 02/28/2021, Additional history exists Albumin/Creatinine Ratio 02/13/2024 023, 03/21/2022, 04/19/2021, Additional history exists HbA1c 04/26/2024 04/26/2023, 03/02, 04/19/2021, Additional history exists CKD PHOS USE SMARTSET 28620 06/26/202405/31, 04/19/2021, 11/27/2019, Additional history exists DXA Scan 07/18/2024 07/18/2022, 06/30, 12/22/2019, Additional history exists Influenza Vaccine (FLU shot) (Season Ended) 2024 04/19/2023, 01/30/2022, 12/28/2020, Additional history exists GFR 12/26/2024 06/25/2024, 03/0 11/2024, 02/17/2024, Additional history exists CKD HGB USE SMARTSET 78448 02/16/202502/16, 02/17/2024, 06/27/2023, Additional history exists TSH [...] D LEVEL ONCE IN A LIFETIME-USE SMARTSET# 68594 Completed 06/27/2023, 11/06/2021, 12/28/2019, Additional history exists [...] this encounter Medical Devices Implanted Type Area Director Business Device Identifier Shelf Expiration Date Model / Serial / Lot Lens Intraoc 21.5 - [id number] - [id number] Implanted:Qty: 1 on 05/12/2019 by Yury Brady MD at OR [facility] Right: Eye BAUSCH 12/30/2023 [id number] / [id number] / [id number] Lens Intraoc 22.5 - [id number] - [id number] Implanted:Qty: 1 on 04/05/2020 by Yury Brady MD at OR [facility] Left: Eye BAUSCH 09/28/2024 [id number] / [id number] / [id number] documented as of this encounter Advance Directives Documents on File Type Date Recorded Patient Corrections Officer Expl anation Advance Directives and Living [...] Agen t (per Health Care Power of Game Author document) [facility] Vika corey (per Health Care Power of Game Author document) [email or web address] om Care Teams International Account Representative Relationship Specialty Start Date End Date Rafa Bergman MD [address] [place] [address] [place] [address] PCP - General Family Medicine 04/19/21 documented as of this encounter
--- OUTSIDE RECORDS SUMMARY | 2024-07-23 23:58 | External Medical Summary | Summary of Care ---
Author Name Unknown Organization [facility] Address [address] [place] [address] Phone [phone] Care Team Providers Care Figure Clerk Name Role Phone Rafa Bergman MD Primary Care Provide r Reason for Visit * Reason Onset Date Comments [facility]: Maintenance 07/17/2024 Encounter Details Date Type Department Care Team (Late st Contact Info) Description 07/17/2024 Telephone [facility], [facility] [address] [place] [address] Alivia Santizo OSA [address] [place], [place] [phone] [facility]: Maintenance Allergies Active Allergy Reactions Criticality Noted Date Comments Colchicine Diarrhea 06/16/2018 Daptomycin 01/05/2015 Shortness of breath Imipenem Edema airway High 01/05/2015 Metoprolol Low 01/23/2021 Other reaction(s): fatigue Zoledronic Acid 04/24/2012 Myalgias, fever, chills, vomiting x 2 days Sulfa Antibiotics 12/22/2002 Bactrim--itchy all over, eyes swollen documented as of this encounter (statuses as of 07/17/2024) Medications ASPIRIN 81 MG PO TABS Take [...] goal LDL below 70,Coronary artery disease involving [place] coronary artery of [place] heart without angina pectoris TAKE ONE TABLET [...] tachycardia,Tach y-chintan syndrome (HCC),Coronary artery disease involving [place] coronary artery of [place] heart without angina pectoris,Presenc e of cardiac [...] as of this encounter (statuses as of 07/17/2024) Active Problems Problem Noted Date Diagnosed Date [...] S/P angioplasty with stent 11/27/2018 Atherosclerosis of [place] co ronary artery of te[place] heart without angina pectoris 07/08/2018 Overview (11/21/2023): history of NSTEMI status post AMIE to LAD (culprit) and RCA, 04/28/2018 Assessment & Plan (06/23/2024 3:37 PM EDT): Follows with cardiology Continue statin Assessment & Plan (01/24/2024 4:40 PM EDT): Cardiac rehab at [facility] 2x week Assessment & Plan (11/21/2023 5:32 [...] as of this encounter (statuses as of 07/17/2024) Resolved Problems Problem Noted Date Diagnosed Date Resolved Date Purulent endophthalmitis of right eye 01/03/2023 11/08/2023 Other pulmonary embolism wit h acute cor pulmonale 10/01/2022 04/26/2023 Overview (04/26/2023): history Medical home patient encounter 09/13/2022 11/08/2023 Atherosclerosis of coronary artery of te[place] heart without angina pectoris 09/10/2022 10/31/2022 Hypothyroidism [...] filter 02/28/2015 Atherosclerotic heart diseas e of te[place] coronary artery with angina pectoris 11/2018 CKD (chronic kidney disease) stage 2, GFR 60-89 ml/min 03/12/2019 documented as of this encounter (statuses as of 07/17/2024) Immunizations Name Administration Dates Next Due COVID-19 [...] No 02/06/2024 [address] the household have a [facility] source of income? 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 Faxed order to [facility]. Confirmed received. Follow up scheduled scheduled for 07/18. documented in this encounter Plan of Treatment Upcoming Encounters Date Type Department Care Team (Late st Contact Info) Description 07/18/2024 11:15 AM EDT Scheduled Telephone [facility], [facility] [address] [place] [address] [facility], Nurse [facility] [address] [place] [address] 07/19/2024 10:00 AM EDT Scheduled Telephone [facility], [facility] [address] [place] [address] [facility], Nurse [place] [address] [address] [place] [address] 07/22/2024 1:30 PM EDT Home Visit [facility], [facility] [address] [place] [address] Olinda Briggs, CHRISTINA [address] [place] [address] 07/28/2024 10:00 AM EDT Home Visit [facility], [facility] [address] [place] [address] Leon Live PA-C [address] [place] [address] 07/30/2024 1:30 PM EDT Imaging Radiology [facility] [address] [place] [address] 08/11/2024 1:45 PM EDT Office Visit Ophthalmology, [facility] [address] [place], [place] [phone] Pedro Tinsley DO [address] [place] [address] Nurse Roscoe Leyva [address] [place] [address] Photographer Justen Leyva [address] [place], [place] [address] 08/18/2024 10:20 AM EDT Laboratory Laboratory [address] [place] [phone] [place] [address] 08/25/2024 3:30 PM EDT Office Visit Hematology/Oncology [facility] [address] [place] [phone] Arianna Szymanski MD [address] [place] [address] 09/07/2024 3:30 PM EDT Office Visit Rheumatology [address] [place] [phone] José Miguel Cullen CRNP [address] [place] [address] [place] [address] 09/11/2024 12:50 PM EDT Office Visit Dermatology, Jesu Wilson [address] [place] [address] Dasha Nelson PA-C [address] [place] [phone] 09/29/2024 3:10 PM EDT Office Visit Urogynecology [facility] [address] [place] [address] Quincy Garcia MD [address] [place] [address] 10/05/2024 1:30 PM EDT Office Visit Cardiology, [facility] [address] [place] [phone] Charles Ortega DO [address] [place] [address] 10/05/2024 2:15 PM EDT Telemedicine Neurology [facility] [address] [facility] [place] [address] Alfonso Manning MD 200 [facility] [place] [address] 12/30/2024 12:40 PM EDT Office Visit Family Medicine [address] [place] [phone] Irene Bowens MD [address] [place] [address] [place] [phone] 08/17/2025 2:30 PM EDT Cardiac Studies Cardiology [address] [place] [address] [facility] [address] [place] [address] Health Maintenance Due Date Last Done Comments Adult Wellness Visit 02/06/2018 02/06/2017 Depression Screening 07/17/2022 07/17/2021 COVID-19 Vaccine ( season) 2023 02/05/2022, 08/02/2021, 02/28/2021, Additional history exists Albumin/Creatinine Ratio 02/13/2024 023, 03/21/2022, 04/19/2021, Additional history exists HbA1c 04/26/2024 04/26/2023, 03/02, 04/19/2021, Additional history exists CKD PHOS USE SMARTSET 17033 06/26/202405/31, 04/19/2021, 11/27/2019, Additional history exists DXA Scan 07/18/2024 07/18/2022, 06/30, 12/22/2019, Additional history exists Influenza Vaccine (FLU shot) (Season Ended) 2024 04/19/2023, 01/30/2022, 12/28/2020, Additional history exists GFR 12/26/2024 06/25/2024, 11/2024, 02/17/2024, Additional history exists CKD HGB USE SMARTSET 62107 02/16/202502/16, 02/17/2024, 06/27/2023, Additional history exists TSH [...] D LEVEL ONCE IN A LIFETIME-USE SMARTSET# 86741 Completed 06/27/2023, 11/06/2021, 12/28/2019, Additional history exists [...] this encounter Medical Devices Implanted Type Area Automation Controls Expert Device Identifier Shelf Expiration Date Model / Serial / Lot Lens Intraoc 21.5 - [id number] - [id number] Implanted:Qty: 1 on 05/12/2019 by Yury Brady MD at OR [facility] Right: Eye BAUSCH 12/30/2023 [id number] / [id number] / [id number] Lens Intraoc 22.5 - [id number] - [id number] Implanted:Qty: 1 on 04/05/2020 by Yury Brady MD at OR [facility] Left: Eye BAUSCH 09/28/2024 [id number] / [id number] / [id number] documented as of this encounter Advance Directives Documents on File Type Date Recorded Patient Gym Instructor Expl anation Advance Directives and Living Will [...] Communication Krissy Ordonez Adult Child Health Care Ageleandra t (per Health Care Power of Steam And Power Supervisor document) Guille Urban Adult Child Health Care Agen t (per Health Care Power of Steam And Power Supervisor document) [email or web address] Care Teams Figure Clerk Relationship Specialty Start Date End Date Rafa Bergman MD [address] [place] [address] [place] [address] PCP - General Family Medicine 04/19/21 documented as of this encounter
--- OUTSIDE RECORDS SUMMARY | 2024-07-23 23:58 | External Medical Summary | Summary of Care ---
Author Name Unknown Organization [facility] Address [address] [facility] [place] [address] Phone [phone] Care Team Providers Care Manager Architecture Name Role Phone Rafa Bergman MD Primary Care Provide r Reason for Visit * Reason Comments Medication Refill Encounter Details Date Type Department Care Team (Late st Contact Info) Description 07/07/2024 Refill Neurology [facility] [address] [place] [address] Shirley Robertson MD [address] [place] [address] Allergies Active Allergy Reactions Criticality Noted Date Comments Colchicine Diarrhea 06/16/2018 Daptomycin 01/05/2015 Shortness of breath Imipenem Edema airway High 01/05/2015 Metoprolol Low 01/23/2021 Other reaction(s): fatigue Zoledronic Acid 04/24/2012 Myalgias, fever, chills, vomiting x 2 days Sulfa Antibiotics 12/22/2002 Bactrim--itchy all over, eyes swollen documented as of this encounter (statuses as of 07/09/2024) Medications ASPIRIN 81 MG PO TABS Take [...] 06/19/2024 2:50 PM EDT 01/09/20 24 Active Pantoprazole Sodium 40 MG Oral Tablet Delayed Release (Protonix) Take 1 Tablet by mouth in the morning and 1 Tablet in the evening. 90 Tablet 3 04/23/2024 8:22 AM EST 01/09/20 24 Active Rosuvastatin Calcium 5 MG Oral Tablet (Crestor)Indicat ions:Dyslipidemi a, goal LDL below 70,Coronary artery disease involving [place] coronary artery of [place] heart without angina pectoris TAKE ONE TABLET BY MOUTH IN THE MORNING 90 Tablet 3 05/25/2024 7:44 AM EST 01/10/20 24 Active Levothyroxine Sodium 125 MCG Oral Tablet (Levoxyl)Indicat ions:Hypothyroid ism (acquired) Take 1 Tablet by mouth daily first thing in the morning. (at least 30 min prior to breakfast or other meds) 90 Tablet 2 05/29/2024 11:01 AM EST 10/11/20 24 Active Ondansetron HCl 4 MG Oral [...] tachycardia,Tach y-chintan syndrome (HCC),Coronary artery disease involving [place] coronary artery of [place] heart without angina pectoris,Presenc e of cardiac pacemaker,Palpit ations,HTN, goal below 140/90 Take 0.5 Tablets by mouth at bedtime. 06/26/19 25 Active Nortriptyline HCl 10 MG Oral Capsule (Pamelor) One capsule at bedtime every other night for 2 weeks then one orally at bedtime every night 30 Capsule 5 07/07/19 25 Active Gabapentin 100 MG Oral Capsule (Neurontin) Take 1 Capsule by mouth 3 times a day. 270 Capsule 07/10/19 25 Active Gabapentin 100 MG Oral Capsule (Neurontin) Take 1 Capsule by mouth 3 times a day. 90 Capsule 06/17/19 25 025 Discontin ued(Refil l) Hospital, Clinic, or [...] as of this encounter (statuses as of 07/09/2024) Active Problems Problem Noted Date Diagnosed Date [...] 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 History of [place] (myocardial infarction) 11/27/2022 Assessment & Plan (04/16/2024 [...] S/P angioplasty with stent 11/27/2018 Atherosclerosis of [place] co ronary artery of [place] heart without angina pectoris 07/08/2018 Overview (11/21/2023): history of NSTEMI status post AMIE to LAD (culprit) and RCA, 04/28/2018 Assessment & Plan (06/23/2024 3:37 PM EDT): Follows with cardiology Continue statin Assessment & Plan (01/24/2024 4:40 PM EDT): [facility] rehab at [facility] 2x week Assessment & Plan [...] as of this encounter (statuses as of 07/09/2024) Resolved Problems Problem Noted Date Diagnosed Date Resolved Date Purulent endophthalmitis of right eye 01/03/2023 11/08/2023 Other pulmonary embolism wit h acute cor pulmonale 10/01/2022 04/26/2023 Overview (04/26/2023): history Medical home patient encounter 09/13/2022 11/08/2023 Atherosclerosis of coronary artery of [place] heart without angina pectoris 09/10/2022 10/31/2022 Hypothyroidism [...] ICD-10 update of inactive term Mixed dyslipidemia 05/13/2003200 9 Overview (04/29/2008): Resolved per Duplicate Protocol [...] filter 02/28/2015 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 11/2018 CKD (chronic kidney disease) stage 2, GFR 60-89 ml/min 03/12/2019 documented as of this encounter (statuses as of 07/09/2024) Immunizations Name Administration Dates Next Due COVID-19 [...] Vac., MDV , IM, 0.5 mL (Fluzone) 02/21/2015,12/25/2013,12/31/2012,11/30,01/17/2011,01/20/2010,12/31/19,02/19/2008,02/06/2007,02/05/2006,1 04/14/2004,01/11/2004,01/19/2003,01/12 Seasonal Influenza, High Dos e, Trivalent, [...] 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 Not on file 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 e KAITARA TARAKA Not on file Not on file Not on file documented as of this encounter Miscellaneous Notes * Telephone Encounter - Shirley Robertson MD - 07/09/2024 12:18 PM EDTSigned Prescriptions: Disp Refills Gabapentin 100 MG Oral Capsule (Neurontin) 270 Ca*0 Sig: Take 1 Capsule by mouth 3 times a day.Authorizing Provider: SHIRLEY ROBERTSON * Addendum Note - Rehana Mccain PHARM Tech - 07/09/2024 10:47 AM EDTAddended by: REHANA MCCAIN on: 07/09/2024 10:47 AM Modules accepted: Orders * Telephone Encounter - Rehana Mccain PHARM Tech - 07/09/2024 10:46 AM EDT Pharmacy is requesting a 90-day supply, pre-edited RXs as such. Please review and approve if appropriate. Pending Prescriptions: Disp Refills Gabapentin 100 MG Oral Capsule (Neurontin)270 Ca*0 Sig: Take 1 Capsule by mouth 3 times a day. Last Visit: 07/06/2024 (in office), Visit date not found (telemedicine) 10/05/2024 If no future appointments scheduled, and last appointment is greater than a year ago, please schedule patient for an appointment Last date the medication was ordered: 06/16/2024 Patient Phone Numbers Labs: Lab Results Component [...] 08/27/2008 04:40 PM * Telephone Encounter - Rehana Mccain PHARM Tech - 07/09/2024 10:44 AM EDTNo prescriptions requested or ordered in this encounter * Telephone Encounter - Rehana Mccain aircraft lay out worker - 07/09/2024 10:44 AM EDTNo prescriptions requested or ordered in this encounter * Telephone Encounter - Anastasia Mason CPhT - 07/08/2024 10:20 AM EDT Pharmacy is requesting a 90-day supply, pre-edited RXs as such. Please review and approve if appropriate. Pending Prescriptions: Disp Refills Gabapentin 100 MG Oral Capsule (Neurontin)270 Ca*0 Sig: Take 1 Capsule by mouth 3 times a day. Last Visit: 07/06/2024 (in office), Visit date not found (telemedicine) 10/05/2024 If no future appointments scheduled, and last appointment is greater than a year ago, please schedule patient for an appointment Last date the medication was ordered: 06/16/24 Patient Phone Numbers Labs: Lab Results Component [...] 02:53 PM HGBA1C 5.7 08/27/2008 04:40 PM documented in this encounter Plan of Treatment Upcoming Encounters Date Type Department Care Team (Late st Contact Info) Description 07/14/2024 2:30 PM EDT Cardiac Studies Cardiology [address] [place] [address] [facility] [address] [place] [address] 07/28/2024 10:00 AM EDT [facility] [place] [address] [place] [address] Leon Live PA-C [address] [place] [address] 07/30/2024 1:30 PM EDT Imaging Radiology [facility] [address] [place] [phone] 08/11/2024 1:45 PM EDT Office Visit Ophthalmology, Stephany Hoover [place] [address] [place] [phone] Pedro Tinsley DO [address] [place] [address] Nurse Roscoe Leyva [address] [place] [address] Photographer Justen Leyva [address] [place] [address] 08/18/2024 10:20 AM EDT Laboratory Laboratory [address] [place] [phone] [place] [address] 08/25/2024 3:30 PM EDT Office Visit Hematology/Oncology [facility] [place] [address] [place] [phone] Arianna Szymanski MD [address] [place] [address] 09/07/2024 3:30 PM EDT Office Visit Rheumatology [address] [place] [phone] José Miguel Cullen CRNP [address] [facility] [place] [address] 09/11/2024 12:50 PM EDT Office Visit Dermatology, Jesu Wilson [address] [place] [address] Dasha Nelson, PADelaneyC [address] [place] [address] 09/29/2024 3:10 PM EDT Office Visit Urogynecology [facility] [address] [place] [address] Quincy Garcia MD [address] [place] [address] 10/05/2024 1:30 PM EDT Office Visit Cardiology, [facility] [address] [place] [phone] Charles Ortega, [address] [place] [address] 10/05/2024 2:15 PM EDT Telemedicine Neurology [facility] [address] [facility] [place] [address] Shirley Robertson MD [address] [facility] [place] [address] 12/30/2024 12:40 PM EDT Office Visit Family Medicine [address] [phone] Irene Bowens MD [address] [place] [address] [place] [phone] Health Maintenance Due Date Last Done Comments Adult Wellness Visit 02/06/2018 02/06/2017 Depression Screening 07/17/2022 07/17/2021 COVID-19 Vaccine ( season) 2023 02/05/2022, 08/02/2021, 02/28/2021, Additional history exists Albumin/Creatinine Ratio 02/13/2024 023, 03/21/2022, 04/19/2021, Additional history exists HbA1c 04/26/2024 04/26/2023, 03/02, 04/19/2021, Additional history exists CKD PHOS USE SMARTSET 34492 06/26/2024/10/2023, 04/19/2021, 11/27/2019, Additional history exists DXA Scan 07/18/2024 07/18/2022, 06/30, 12/22/2019, Additional history exists Influenza Vaccine (FLU shot) (Season Ended) 2024 04/19/2023, 01/30/2022, 12/28/2020, Additional history exists GFR 12/26/2024 06/25/2024, 03/0 11/2024, 02/17/2024, Additional history exists CKD HGB USE SMARTSET 28017 02/16/202502/16, 02/17/2024, 06/27/2023, Additional history exists TSH [...] D LEVEL ONCE IN A LIFETIME-USE SMARTSET# 41190 Completed 06/27/2023, 11/06/2021, 12/28/2019, Additional history exists [...] this encounter Medical Devices Implanted Type Area Piston Maker Device Identifier Shelf Expiration Date Model / Serial / Lot Lens Intraoc 21.5 - [id number] - [id number] Implanted:Qty: 1 on 05/12/2019 by Yury Brady MD at [facility] Right: Eye BAUSCH 12/30/2023 [id number] / [id number] / [id number] Lens Intraoc 22.5 - [id number] - [id number] Implanted:Qty: 1 on 04/05/2020 by Yury Brady MD at OR [facility] Left: Eye BAUSCH 09/28/2024 [id number] / [id number] / [id number] documented as of this encounter Advance Directives Documents on File Type Date 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 Question Answer Comments Discussion of Advance Directives occurred with: Patient Healthcare Agents on File Name Relationship Healthcare Agent Relationship Communication Krissy Wallaceklin Adult Child Health Care Agen t (per Health Care Power of Shield Operator document) Guille Wilmar Adult Child Health Care Agen t (per Health Care Power of Shield Operator document) [email or web address] Care Teams Manager Architecture Relationship Specialty Start Date End Date Rafa Bergman MD [address] [place] [address] [place] [phone] PCP - General Family Medicine 04/19/21 documented as of this encounter
--- OUTSIDE RECORDS SUMMARY | 2024-07-23 23:58 | External Medical Summary | Summary of Care ---
Author Name Unknown Organization [facility] Address [address] [place] [address] Phone [phone] Care Team Providers Care Whey Department Operator Name Role Phone Rafa Bergman MD Primary Care Provide r Reason for Visit * Reason Comments Medication Refill Encounter Details Date Type Department Care Team (Late st Contact Info) Description 07/07/2024 Refill Neurology [facility] [address] [place] [address] Shirley Robertson MD [address] [place] [address] Allergies Active Allergy Reactions Criticality Noted Date [...] goal LDL below 70,Coronary artery disease involving [place] coronary artery of [place] heart without angina pectoris TAKE ONE TABLET [...] tachycardia,Tach y-chintan syndrome (HCC),Coronary artery disease involving [place] coronary artery of [place] heart without angina pectoris,Presenc e of cardiac [...] 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 History of [place] (myocardial infarction) 11/27/2022 Assessment & Plan (04/16/2024 [...] S/P angioplasty with stent 11/27/2018 Atherosclerosis of [place] co ronary artery of [place] heart without angina pectoris 07/08/2018 Overview (11/21/2023): history of NSTEMI status post AMIE to LAD (culprit) and RCA, 04/28/2018 Assessment & Plan (06/23/2024 3:37 PM EDT): Follows with cardiology Continue statin Assessment & Plan (01/24/2024 4:40 PM EDT): Cardiac rehab at [facility] 2x week Assessment & [...] 09/13/2022 11/08/2023 Atherosclerosis of coronary artery of [place] heart without angina pectoris 09/10/2022 10/31/2022 Hypothyroidism [...] filter 02/28/2015 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 11/2018 CKD [...] 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 Not on file Not on file documented as of this encounter Miscellaneous Notes * Telephone Encounter - Shirley Robertson MD - 07/09/2024 12:18 PM EDTSigned Prescriptions: Disp Refills Gabapentin 100 MG Oral Capsule (Neurontin) 270 Ca*0 Sig: Take 1Capsule by mouth 3 times a day.Authorizing Provider: [...] encounter * Telephone Encounter - Rehana Mccain PHARM [...] 07/14/2024 2:30 PM EDT Cardiac Studies Cardiology [address] [place] [address] [facility] [place] [address] [place] [address] 07/28/2024 10:00 AM EDT [facility] [place] [address] [place] [address] Leon Live PA-C [address] [place] [address] 07/30/2024 1:30 PM EDT Imaging Radiology [facility] [address] [place] [address] 08/11/2024 1:45 PM EDT Office Visit Ophthalmology, Stephany Hoover [place] [address] [place] [phone] Pedro Tinsley, [address] [place] [address] Nurse Roscoe Leyva [address] [place] [address] Photographer Justen Leyva [address] [place] [address] 08/18/2024 10:20 AM EDT Laboratory Laboratory [address] [place] [phone] [place] [address] 08/25/2024 3:30 PM EDT Office Visit Hematology/Oncology [facility] [place] [address] [place] [phone] Arianna Szymanski MD [address] [place] [address] 09/07/2024 3:30 PM EDT Office Visit Rheumatology [address] [place] [phone] José Miguel Cullen CRNP [address] [place] [address] [place] [address] 09/11/2024 12:50 PM EDT Office Visit Dermatology, Jesu Wilson [address] [place] [address] Dasha Nelson, PADelaneyC [address] [place] [address] 09/29/2024 3:10 PM EDT Office Visit Urogy[facility]cology [facility] [address] [place] [address] Quincy Garcia MD [address] [place] [address] 10/05/2024 1:30 PM EDT Office Visit Cardiology, [facility] [address] [place] [phone] Charles Ortega, [address] [place] [address] 10/05/2024 2:15 PM EDT Telemedicine Neurology [facility] [address] [facility] [place] [address] Shirley Robertson MD [address] [facility] [place] [address] 12/30/2024 12:40 PM EDT Office Visit Family Medicine [address] [phone] Irene Bowens MD [address] [place] [address] [place] [phone] Health Maintenance Due Date Last Done Comments Adult Wellness Visit 02/06/2018 02/06/2017 Depression Screening 07/17/2022 07/17/2021 COVID-19 Vaccine ( season) 2023 02/05/2022, 08/02/2021, 02/28/2021, Additional history exists Albumin/Creatinine Ratio 02/13/2024 023, 03/21/2022, 04/19/2021, Additional history exists HbA1c 04/26/2024 04/26/2023, 1204/2021, 04/19/2021, Additional history exists CKD PHOS USE SMARTSET 25193 06/26/2024 03/2 10/2023, 04/19/2021, 11/27/2019, Additional history exists DXA Scan 07/18/2024 07/18/2022, 06/30, 12/22/2019, Additional history exists Influenza Vaccine (FLU shot) (Season Ended) 2024 04/19/2023, 01/30/2022, 12/28/2020, Additional history exists GFR 12/26/2024 06/25/2024, 03/0 11/2024, 02/17/2024, Additional history exists CKD HGB USE SMARTSET 24831 02/16/202502/16, 02/17/2024, 06/27/2023, Additional history exists TSH [...] D LEVEL ONCE IN A LIFETIME-USE SMARTSET# 34477 Completed 06/27/2023, 11/06/2021, 12/28/2019, Additional history exists [...] this encounter Medical Devices Implanted Type Area Crowning Inspector Device Identifier Shelf Expiration Date Model / Serial / Lot Lens Intraoc 21.5 - [id number] - [id number] Implanted:Qty: 1 on 05/12/2019 by Yury Brady MD at [facility] Right: Eye BAUSCH 12/30/2023 [id number] / [id number] / [id number] Lens Intraoc 22.5 - [id number] - [id number] Implanted:Qty: 1 on 04/05/2020 by Yury Brady MD at OR [facility] Left: Eye BAUSCH 09/28/2024 [id number] / [id number] / [id number] documented as of this encounter Advance Directives Documents on File Type Date 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
--- OUTSIDE RECORDS SUMMARY | 2024-07-23 23:58 | External Medical Summary | Summary of Care ---
Author Name Unknown Organization [facility] Address [address] [facility] [place] [address] Phone [phone] Care Team Providers Care Supervisor Screen Printing Name Role Phone Rafa Bergman MD Primary Care Provide r Reason for Visit * Reason Onset Date Comments [facility]: Acute 07/17/2024 Encounter Details Date Type Department Care Team (Late st Contact Info) Description 07/17/2024 Telephone [facility], [facility] [address] [facility] [place] [phone] Gemini Kennedy RN [address] [facility] [place] [phone] [facility]: Acute Allergies Active Allergy Reactions Criticality Noted Date [...] goal LDL below 70,Coronary artery disease involving [place] croix coronary artery of [place]ix heart without angina pectoris TAKE ONE TABLET [...] tachycardia,Tach y-chintan syndrome (HCC),Coronary artery disease involving [place] croix coronary artery of [place] croix heart without angina pectoris,Presenc e of cardiac [...] 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 History of MS (myocardial infarction) 11/27/2022 Assessment & Plan (04/16/2024 [...] S/P angioplasty with stent 11/27/[address] [place]ix co ronary artery of [place] croix heart without angina pectoris 07/08/2018 Overview (11/21/2023): history of NSTEMI status post AMIE to LAD (culprit) and RCA, 04/28/2018 Assessment & Plan (06/23/2024 3:37 PM EDT): Follows with cardiology Continue statin Assessment & Plan (01/24/2024 4:40 PM EDT): Cardiac rehab at [facility] 2x week Assessment & Plan (11/21/2023 [...] 09/13/2022 11/08/2023 Atherosclerosis of coronary artery of [place] croix heart without angina pectoris 09/10/2022 10/31/2022 Hypothyroidism [...] filter 02/28/2015 Atherosclerotic heart diseas e of st[place] 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 Called and made patient aware of CXR and possible HV on weekend depending on results [facility], anna Samuel Order # [id number] Faxed order and demographics, Transmission confirmed Gemini Kennedy, RN, BSN channel specialistCabinet Builder [phone] option #1 * Addendum Note - Kathy Kohli CRNP - 07/17/2024 3:01 PM EDTAddended by: KATHY KOHLI on: 07/17/2024 03:01 PM Modules accepted: Orders * Telephone Encounter - Kathy Kohli CRNP - 07/17/2024 2:58 PM EDT She has a history of left pleural effusion. Recommend CXR for further evaluation. Orders placed. Depending on results, she may need a home visit over the weekend for IV Lasix. She has tolerated Lasix80 mg IVP and a couple days of Lasix 40 mg PO in the past. Will await CXR results. [facility], [facility] [address] [facility] [place] [id number] * Telephone Encounter - Gemini Kennedy RN - 07/17/2024 2:27 PM EDT [facility] supervisor rides Acute Call Date: 07/17/2024 Time: 2:27 PM Name: Rehana Moran : 1945 Caller: Rehana, patient Relationship to Chief Complaint [facility]: Acute HPI: Rehana Moran is a 79 year old female who is calling [facility] to report since Saturday,she has been having increased SOB with activity. None noted during conversation and patient agrees,but does get it with activity. It bring her heart rate up to 120s-130s. She had an appt with [facility] [facility], had her walk around the clinic a little bit, and read HR, it was 124. She was very SOB so had her sit for 5 mins or so. HR came down to 103, then a little while longer it was in the 90's. They did not check her BP Stated the tech sent a message to Dr Ortega, cardiology, but she has not heard anything back fromhim Denies chest pain No edema, no abdominal bloating Taking all medications as ordered At home, even finding it difficult to go to the bathroom w/o getting very SOB. No O2 Checked her BP today, 138/80 which she states is a little high for her. Is taking Spironolactone, started on new med Nortriptyline, Also taking Prednisone for shoulder pain but off that for 2 days now. Patient concerned of why this started all of a sudden Wants to enjoy Holiday with her family and be able to cook , not sure if she will be able to PMH: MS and RSV/PNA about 1 month ago but has been feeling good until Saturday of this week. ROS: Patient Active Problem List Diagnosis Senile osteoporosis HTN, goal below 140/90 Hypothyroidism (acquired) Dyslipidemia, goal LDL below 70 Retinal vein occlusion of right eye Vitamin B12 deficiency History of DVT (deep vein thrombosis) H/O nonmelanoma skin cancer Rhinitis, nonallergic Deviated nasal septum Arthritis of left ankle Atherosclerosis of [place] croix coronary artery of [place] croix heart without angina pectoris S/P angioplasty with stent Hypertensive kidney disease with stage 3a chronic kidney disease History of basal cell carcinoma Chronic kidney disease, stage 3a (HCC) Prediabetes Gastro-esophageal reflux disease with esophagitis, without bleeding Tachy-chintan syndrome (HCC) S/P placement of cardiac pacemaker History of MS (myocardial infarction) History of pulmonary embolism Nevus of choroid of right eye Migraine without aura and without status migrainosus, not intractable 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 Nursing Assessment: Patient's chief complaint for this call: Shortness of breath Pain Denies pain Baseline Assessment Able to performing ADLs at baseline (walking, daily tasks, etc.): No Chief Complaint is related to a chronic condition: No Patient prescribed oxygen? No Patient has been ordered DME equipment (assistive devices, respiratory equipment, etc.): No, Has PACER Medication Reconciliation: Received flu shot this season: Yes Taking medication as ordered: Yes Medications ordered/taking to treat reason for call: No Heart failure symptoms: No COPD exacerbation symptoms: No Reinforcement Education: Limit activity that causes or increases SOB Take all medications as ordered Monitor heart rate and take BP daily Avoid bending over or reaching overhead if feels lightheaded or weak Stay hydrated Routed to [facility] Weekend call set Treatment/Plan: (need to report) Level of call: Acute Appointment scheduled for same day: No Gemini Kennedy RN, BSN channel specialistCabinet Builder [phone] option #1 Call back instructions provided to patient. documented in this encounter Plan of Treatment Upcoming Encounters Date Type Department Care Team (Late st Contact Info) Description 07/18/2024 11:15 AM EDT Scheduled Telephone [facility], [facility] [address] [address] [facility], Nurse [address] [place] [address] 07/19/2024 10:00 AM EDT Scheduled Telephone [facility], [facility] [address] [address] [facility], Nurse [address] [place] [address] 07/22/2024 1:30 PM EDT Home Visit [facility] [place], [facility] [address] [place] [address] Olinda Briggs, RN [address] [place], [place] [address] 07/28/2024 10:00 AM EDT Home Visit [facility], [facility] [address] [place], [place] [address] Leon Live PA-C [address] [place], [place] [address] 07/30/2024 1:30 PM EDT Imaging Radiology [facility] [address] [place] [phone] 08/11/2024 1:45 PM EDT Office Visit Ophthalmology, [facility] [address] [place] [phone] Pedro Tinsley, [address] [place] [address] Nurse Roscoe Leyva [address] [place], [place] [address] Photographer Justen Leyva [address] [place], [place] [address] 08/18/2024 10:20 AM EDT Laboratory Laboratory [address] [place] [phone] [place] [address] 08/25/2024 3:30 PM EDT Office Visit Hematology/Oncology State Ronni Huitron [address] [place] [phone] Arianna Szymanski MD [address] [place] [address] 09/07/2024 3:30 PM EDT Office Visit Rheumatology [address] [place] [phone] José Miguel Cullen CRNP [address] [facility] [place] [address] 09/11/2024 12:50 PM EDT Office Visit Dermatology, Jesu Wilson [address] [place] [address] Dasha Nelson PA-C [address] [place] [address] 09/29/2024 3:10 PM EDT Office Visit Urogynecology [facility] [address] [place] [address] Quincy Garcia MD [address] [place] [address] 10/05/2024 1:30 PM EDT Office Visit Cardiology, [facility] [address] [place] [facility] [place] [address] Charles Ortega, [address] [place] [address] 10/05/2024 2:15 PM EDT Telemedicine Neurology [facility] [address] [place] [phone] Alfonso Manning MD [address] [facility] [place] [address] 12/30/2024 12:40 PM EDT Office Visit Family Medicine [address] [place] [phone] Irene Bowens MD [address] [place] [address] [place] [phone] 08/17/2025 2:30 PM EDT Cardiac Studies Cardiology [address] [place] [address] [facility] [address] [place] [address] Scheduled Orders Name Type Priority Associated Diagnoses Orde r Schedule XR CHEST 2 VIEWS Medical Imaging Routine Shortness of breath Ordered: 07/17/2024 Health Maintenance Due Date Last Done Comments Adult Wellness Visit 02/06/2018 02/06/2017 Depression Screening 07/17/2022 07/17/2021 COVID-19 Vaccine ( season) 2023 02/05/2022, 08/02/2021, 02/28/2021, Additional history exists Albumin/Creatinine Ratio 02/13/2024 023, 03/21/2022, 04/19/2021, Additional history exists HbA1c 04/26/2024 04/26/2023, 03/02, 04/19/2021, Additional history exists CKD PHOS USE SMARTSET 56798 06/26/202405/31, 04/19/2021, 11/27/2019, Additional history exists DXA Scan 07/18/2024 07/18/2022, 06/30, 12/22/2019, Additional history exists Influenza Vaccine (FLU shot) (Season Ended) 2024 04/19/2023, 01/30/2022, 12/28/2020, Additional history exists GFR 12/26/2024 06/25/2024, 03/0 11/2024, 02/17/2024, Additional history exists CKD HGB USE SMARTSET 11073 02/16/202502/16, 02/17/2024, 06/27/2023, Additional history exists TSH [...] D LEVEL ONCE IN A LIFETIME-USE SMARTSET# [id number] Completed 06/27/2023, 11/06/2021, 12/28/2019, Additional history exists [...] this encounter Medical Devices Implanted Type Area Oil Field Equipment Mechanic Device Identifier Shelf Expiration Date Model / Serial / Lot Lens Intraoc 21.5 - [id number] - [id number] Implanted:Qty: 1 on 05/12/2019 by Yury Brady MD at OR [facility] Right: Eye BAUSCH 12/30/2023 [id number] / [id number] / [id number] Lens Intraoc 22.5 - [id number] - [id number] Implanted:Qty: 1 on 04/05/2020 by Yury Brady MD at OR [facility] Left: Eye BAUSCH 09/28/2024 [id number] / [id number] / [id number] documented as of this encounter Visit Diagnoses Diagnosis Hypertensive kidney disease with stage 3a chronic kidney disease- Primary Atherosclerosis of st. croix coronary artery of [place]. croix heart without angina pectoris Dyslipidemia, goal LDL below 70 Other and unspecified hyperlipidemia History of pulmonary embolism Personal history of pulmonary embolism Tachy-chintan syndrome (HCC) Sinoatrial node dysfunction S/P placement of cardiac pacemaker Cardiac pacemaker in situ Arthralgia of right hip Gastro-esophageal reflux disease with esophagitis, without bleeding Sinus tachycardia Other specified cardiac dysrhythmias Coronary artery disease involving st. croix coronary artery of [place]. croix heart without angina pectoris Presence of cardiac pacemaker Cardiac pacemaker in situ Palpitations HTN, goal below 140/90 Unspecified essential hypertension Hypertensive kidney disease with stage 3a chronic kidney disease- Primary Dyslipidemia, goal LDL below 70 Other and unspecified hyperlipidemia Gastro-esophageal reflux disease with esophagitis, without bleeding Atherosclerosis of st. croix coronary artery of [place]. croix heart without angina pectoris Advanced care planning/counseling discussion- Primary Other specified counseling Hypertensive kidney disease with stage 3a chronic kidney disease (HCC) History of MS (myocardial infarction) Old myocardial infarction Tachy-chintan syndrome [...] 3a chronic kidney disease- Primary Atherosclerosis of st. croix coronary artery of [place]. croix heart without angina pectoris Migraine without aura and without status migrainosus, not intractable Migraine without aura, without mention of intractable migraine without mention of status migrainosus Shortness of breath- Primary documented in this encounter Advance Directives Documents on File Type Date Recorded Patient Billing Department Supervisor Expl anation Advance Directives and Living [...] Agen t (per Health Care Power of Orthotic Fitter document) Guille [facility] Adult Child Health Care Agen t (per Health Care Power of Orthotic Fitter document) [email or web address] om Care Teams Supervisor Screen Printing Relationship Specialty Start Date End Date Rafa Bergman MD [address] [place] [address] [place] [id number] PCP - General Family Medicine 04/19/21 documented as of this encounter
--- OUTSIDE RECORDS SUMMARY | 2024-07-23 23:58 | External Medical Summary | Summary of Care ---
Author Name Unknown Organization [facility] Address [address] [place] [address] Phone [phone] Care Team Providers Care Home Theatre Technician Name Role Phone Rafa Bergman MD Primary Care Provide r Reason for Visit * Reason Onset Date Comments [facility]: Acute 07/17/2024 Encounter Details Date Type Department Care Team (Late st Contact Info) Description 07/17/2024 Telephone [facility], [facility] [address] [facility] [place] [phone] Gemini Kennedy RN [address] [facility] [place] [phone] [facility]: Acute Allergies Active Allergy [...] goal LDL below 70,Coronary artery disease involving tuolumne coronary artery of tuolumne heart without angina pectoris TAKE ONE TABLET [...] tachycardia,Tach y-chintan syndrome (HCC),Coronary artery disease involving tuolumne coronary artery of tuolumne heart without angina pectoris,Presenc e of cardiac [...] 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 History of MA (myocardial infarction) 11/27/2022 Assessment & Plan (04/16/2024 [...] S/P angioplasty with stent 11/27/2018 Atherosclerosis of tuolumne co ronary artery of tuolumne heart without angina pectoris 07/08/2018 Overview (11/21/2023): history of NSTEMI status post AMIE to LAD (culprit) and RCA, 04/28/2018 Assessment & Plan (06/23/2024 3:37 PM EDT): Follows with cardiology Continue statin Assessment & Plan (01/24/2024 4:40 PM EDT): Card[facility] rehab at [facility] 2x week Assessment & Plan [...] 09/13/2022 11/08/2023 Atherosclerosis of coronary artery of tuolumne heart without angina pectoris 09/10/2022 10/31/2022 Hypothyroidism [...] filter 02/28/2015 Atherosclerotic heart diseas e of tuolumne coronary artery with angina pectoris 11/2018 CKD [...] 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 Called and made patient aware of CXR and possible HV on weekend depending on results [facility], an[place] Samuel Order # [id number] Faxed order and demographics, Transmission confirmed Gemini Kennedy, RN, BSN operating room technicianDemo Event Specialist [phone] option #1 * Addendum Note - Kathy [...] await CXR results. [facility], [facility] [address] [facility] [place] [address] * Telephone Encounter - Gemini Kennedy RN - 07/17/2024 2:27 PM EDT [facility] blindmaker Acute Call Date: 07/17/2024 Time: 2:27 PM Name: Rehana Moran : 1945 Caller: Rehana, patient Relationship to Chief Complaint Patient presents with [facility]: Acute HPI: Rehana Moran is a 79 year old female who is calling [facility] Int[facility] to report since Saturday,she has been having increased SOB with activity. None noted during conversation and patient agrees,but does get it with activity. It bring her heart rate up to 120s-130s. She had an appt with [employer], had her walk around the clinic a [...] if she will be able to PMH: [place] and RSV/PNA about 1 month ago but [...] septum Arthritis of left ankle Atherosclerosis of tuolumne coronary artery of tuolumne heart without angina pectoris S/P angioplasty with stent Hypertensive kidney disease with stage 3a chronic kidney disease History of basal cell carcinoma Chronic kidney disease, stage 3a (HCC) Prediabetes Gastro-esophageal reflux disease with esophagitis, without bleeding Tachy-chintan syndrome (HCC) S/P placement of cardiac pacemaker History of MA (myocardial infarction) History of pulmonary embolism Nevus [...] lightheaded or weak Stay hydrated [facility] Weekend call set Treatment/Plan: (need to report) Level of call: Acute Appointment scheduled for same day: No Gemini Kennedy RN, BSN operating room technicianDemo Event Specialist [phone] option #1 Call back instructions provided to patient. documented in this encounter Plan of Treatment Upcoming Encounters Date Type Department Care Team (Late st Contact Info) Description 07/18/2024 11:15 AM EDT Scheduled Telephone [facility], [facility] [address] [address] [facility], Nurse [address] [place] [address] 07/19/2024 10:00 AM EDT Scheduled Telephone [facility], [facility] [address] [address] [facility], Nurse [address] [place] [address] 07/22/2024 1:30 PM EDT [facility] [place], [facility] [address] [place] [address] Olinda Briggs, RN [address] [place], [place] [address] 07/28/2024 10:00 AM EDT Home Visit [facility], [facility] [address] [place], [place] [address] Leon Live PA-C [address] [place], [place] [address] 07/30/2024 1:30 PM EDT Imaging Radiology [facility] [address] [place] [phone] 08/11/2024 1:45 PM EDT Office Visit Ophthalmology, [facility] [address] [place] [address] Pedro Tinsley, [address] [place] [address] Nurse Roscoe Leyva [address] [place], [place] [address] Photographer Justen Leyva [address] [place], [place] [address] 08/18/2024 10:20 AM EDT Laboratory Laboratory [address] [place] [phone] [place] [address] 08/25/2024 3:30 PM EDT Office Visit Hematology/Oncology State Ronni Huitron [address] [place] [phone] Arianna Szymanski MD [address] [place] [address] 09/07/2024 3:30 PM EDT Office Visit Rheumatology [address] [place] [address] José Miguel Cullen CRNP [address] [facility] [place] [address] 09/11/2024 12:50 PM EDT Office Visit Dermatology, Jesu Wilson [address] [place] [address] Dasha Nelson PA-C [address] [place] [address] 09/29/2024 3:10 PM EDT Office [facility] [address] [facility] [place] [address] Quincy Garcia MD [address] [facility] [place] [address] 10/05/2024 1:30 PM EDT Office Visit Cardiology, [facility] [address] [facility] [place] [address] Charles Ortega, [address] [place] [address] 10/05/2024 2:15 PM EDT Telemedicine Neurology [facility] [address] [place] [phone] Alfonso Manning MD [address] [facility] [place] [address] 12/30/2024 12:40 PM EDT Office Visit Family Medicine [address] [place] [address] Irene Bowens MD [address] [place] [address] [place] [address] 08/17/2025 2:30 PM EDT Cardiac Studies Cardiology [address] [place] [address] [facility] [address] [place] [address] Scheduled Orders Name Type Priority Associated Diagnoses [...] Additional history exists CKD PHOS USE SMARTSET 38225 06/26/202405/31, 04/19/2021, 11/27/2019, Additional history exists DXA Scan 07/18/2024 07/18/2022, 06/30, 12/22/2019, Additional history exists Influenza Vaccine (FLU shot) (Season Ended) 2024 04/19/2023, 01/30/2022, 12/28/2020, Additional history exists GFR 12/26/2024 06/25/2024, 03/0 11/2024, 02/17/2024, Additional history exists CKD HGB USE SMARTSET 54820 02/16/202502/16, 02/17/2024, 06/27/2023, Additional history exists TSH [...] D LEVEL ONCE IN A LIFETIME-USE SMARTSET# 81780 Completed 06/27/2023, 11/06/2021, 12/28/2019, Additional history exists [...] this encounter Medical Devices Implanted Type Area Assistant Shift Supervisor Device Identifier Shelf Expiration Date Model / Serial / Lot Lens Intraoc 21.5 - [id number] - [id number] Implanted:Qty: 1 on 05/12/2019 by Yury Brady MD at OR [facility] Right: Eye BAUSCH 12/30/2023 [id number] / [id number] / [id number] Lens Intraoc 22.5 - [id number] - [id number] Implanted:Qty: 1 on 04/05/2020 by Yury Brady MD at OR [facility] Left: Eye BAUSCH 09/28/2024 [id number] / [id number] / [id number] documented as of this encounter Visit Diagnoses Diagnosis Hypertensive kidney disease with stage 3a chronic kidney disease- Primary Atherosclerosis of tuolumne coronary artery of tuolumne heart without angina pectoris Dyslipidemia, goal LDL below 70 Other and unspecified hyperlipidemia History of pulmonary embolism Personal history of pulmonary embolism Tachy-chintan syndrome (HCC) Sinoatrial node dysfunction S/P placement of cardiac pacemaker Cardiac pacemaker in situ Arthralgia of right hip Gastro-esophageal reflux disease with esophagitis, without bleeding Sinus tachycardia Other specified cardiac dysrhythmias Coronary artery disease involving tuolumne coronary artery of tuolumne heart without angina pectoris Presence of cardiac pacemaker Cardiac pacemaker in situ Palpitations HTN, goal below 140/90 Unspecified essential hypertension Hypertensive kidney disease with stage 3a chronic kidney disease- Primary Dyslipidemia, goal LDL below 70 Other and unspecified hyperlipidemia Gastro-esophageal reflux disease with esophagitis, without bleeding Atherosclerosis of tuolumne coronary artery of tuolumne heart without angina pectoris Advanced care planning/counseling discussion- Primary Other specified counseling Hypertensive kidney disease with stage 3a chronic kidney disease (HCC) History of MA (myocardial infarction) Old myocardial infarction Tachy-chintan syndrome [...] 3a chronic kidney disease- Primary Atherosclerosis of tuolumne coronary artery of tuolumne heart without angina pectoris Migraine without aura and without status migrainosus, not intractable Migraine without aura, without mention of intractable migraine without mention of status migrainosus Shortness of breath- Primary documented in this encounter Advance Directives Documents on File Type Date Recorded Patient Fuel House Attendant Expl anation Advance Directives and Living [...] Agen t (per Health Care Power of Accounting Manager Assistant Controller document) Guille Urban Adult Child Health Care Agen t (per Health Care Power of Accounting Manager Assistant Controller document) [email or web address] om Care Teams Home Theatre Technician Relationship Specialty Start Date End Date Rafa Bergman MD [address] [place] [address] [place] [phone] PCP - General Family Medicine 04/19/21 documented as of this encounter
--- OUTSIDE RECORDS SUMMARY | 2024-07-23 23:58 | External Medical Summary | Summary of Care ---
Author Name Unknown Organization [facility] Address [address] [facility] [place] [address] Phone [phone] Care Team Providers Care Scientific Programmer Name Role Phone Rafa Bergman MD Primary Care Provide r Reason for Visit * Reason Onset Date Comments [facility]: Acute 07/17/2024 Encounter Details Date Type Department Care Team (Late st Contact Info) Description 07/17/2024 Telephone [facility], [facility] [address] [facility] [place] [phone] Gemini Kennedy RN [address] [facility] [place] [address] [facility]: Acute Allergies Active Allergy [...] goal LDL below 70,Coronary artery disease involving skagway coronary artery of skagway heart without angina pectoris TAKE ONE TABLET [...] tachycardia,Tach y-chintan syndrome (HCC),Coronary artery disease involving skagway coronary artery of skagway heart without angina pectoris,Presenc e of cardiac [...] 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 History of AL (myocardial infarction) 11/27/2022 Assessment & Plan (04/16/2024 [...] S/P angioplasty with stent 11/27/2018 Atherosclerosis of skagway co ronary artery of skagway heart without angina pectoris 07/08/2018 Overview (11/21/2023): history of NSTEMI status post AMIE to LAD (culprit) and RCA, 04/28/2018 Assessment & Plan (06/23/2024 3:37 PM EDT): Follows with cardiology Continue statin Assessment & Plan (01/24/2024 4:40 PM EDT): Cardiac rehab at [facility] 2x week Assessment & Plan (11/21/2023 [...] 09/13/2022 11/08/2023 Atherosclerosis of coronary artery of skagway heart without angina pectoris 09/10/2022 10/31/2022 Hypothyroidism [...] term BENIGN KERRIE SKIN TRUNK 11/21/20042013 MALIG KRERIE SKIN ARM 09/05/2004 7 Malignant neoplasm of [...] filter 02/28/2015 Atherosclerotic heart diseas e of skagway coronary artery with angina pectoris 11/2018 CKD [...] 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 Called and made patient aware of CXR and possible HV on weekend depending on results [facility], [place] Order # [id number] Faxed order and demographics, Transmission confirmed Gemini Kennedy, RN, BSN stone unloaderAir Vice Marshal [phone] option #1 * Addendum Note - Kathy [...] await CXR results. 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 None noted during conversation and patient agrees,but does get it with activity. It bring her heart rate up to 120s-130s. She had an appt with Hst[facility], had her walk around the clinic a [...] if she will be able to PMH: [place] and RSV/PNA about 1 month ago but [...] septum Arthritis of left ankle Atherosclerosis of skagway coronary artery of skagway heart without angina pectoris S/P angioplasty with stent Hypertensive kidney disease with stage 3a chronic kidney disease History of basal cell carcinoma Chronic kidney disease, stage 3a (HCC) Prediabetes Gastro-esophageal reflux disease with esophagitis, without bleeding Tachy-chintan syndrome (HCC) S/P placement of cardiac pacemaker History of AL (myocardial infarction) History of pulmonary embolism Nevus [...] or weak Stay hydrated [facility] Weekend call set Treatment/Plan: (need to report) Level of call: Acute Appointment scheduled for same day: No Gemini Kennedy RN, BSN stone unloaderAir Vice Marshal [phone] option #1 Call back instructions provided to patient. documented in this encounter Plan of Treatment Upcoming Encounters Date Type Department Care Team (Late st Contact Info) Description 07/18/2024 11:15 AM EDT Scheduled Telephone [facility], [facility] [address] [address] [facility], Nurse [address] [place] [address] 07/19/2024 10:00 AM EDT Scheduled Telephone [facility], [facility] [address] [address] [facility], Nurse [address] [place] [address] 07/22/2024 1:30 PM EDT [facility] Visit [facility] [place], [facility] [address] [place] [address] Olinda Briggs, RN [address] [place], [place] [address] 07/28/2024 10:00 AM EDT Home Visit [facility], [facility] [address] [place], [place] [address] Leon Live PA-C [address] [place], [place] [address] 07/30/2024 1:30 PM EDT Imaging Radiology [facility] [address] [place] [phone] 08/11/2024 1:45 PM EDT Office Visit Ophthalmology, [facility] [address] [place] [address] Pedro Tinsley, [address] [place] [address] Nurse Roscoe Leyva [address] [place], [place] [address] Photographer Justen Leyva [address] [place], [place] [address] 08/18/2024 10:20 AM EDT Laboratory Laboratory [address] [place] [address] [address] [place] [address] 08/25/2024 3:30 PM EDT Office Visit Hematology/Oncology State Ronni Huitron [address] [place] [phone] Arianna Szymanski MD [address] [place] [address] 09/07/2024 3:30 PM EDT Office Visit Rheumatology [address] [place] [address] José Miguel Cullen CRNP [address] [facility] [place] [address] 09/11/2024 12:50 PM EDT Office Visit Dermatology, Jesu Wilson [address] [place] [address] Dasha Nelson PA-C [address] [place] [address] 09/29/2024 3:10 PM EDT Office Visit Urogynecology [facility] 132 [place] [address] Quincy Garcia MD [address] [facility] [place] [address] 10/05/2024 1:30 PM EDT Office Visit Cardiology, [facility] [address] [facility] [place] [address] Charles Ortega, [address] [place] [address] 10/05/2024 2:15 PM EDT Telemedicine Neurology [facility] [address] [place] [phone] Alfonso Manning MD 200 [facility] [place] [address] 12/30/2024 12:40 PM EDT Office Visit Family Medicine [address] [place] [phone] Irene Bowens MD [address] [place] [address] [place] [address] 08/17/2025 2:30 PM EDT Cardiac Studies Cardiology [address] [place] [address] [facility] [address] [place] [address] Scheduled Orders Name Type Priority Associated Diagnoses [...] Additional history exists CKD PHOS USE SMARTSET 18339 06/26/202405/31, 04/19/2021, 11/27/2019, Additional history exists DXA Scan 07/18/2024 07/18/2022, 06/30, 12/22/2019, Additional history exists Influenza Vaccine (FLU shot) (Season Ended) 2024 04/19/2023, 01/30/2022, 12/28/2020, Additional history exists GFR 12/26/2024 06/25/2024, 03/0 11/2024, 02/17/2024, Additional history exists CKD HGB USE SMARTSET 11454 02/16/202502/16, 02/17/2024, 06/27/2023, Additional history exists TSH [...] D LEVEL ONCE IN A LIFETIME-USE SMARTSET# 58606 Completed 06/27/2023, 11/06/2021, 12/28/2019, Additional history exists [...] this encounter Medical Devices Implanted Type Area Heavy Equipment Service Manager Device Identifier Shelf Expiration Date Model / Serial / Lot Lens Intraoc 21.5 - [id number] - [id number] Implanted:Qty: 1 on 05/12/2019 by Yury Brady MD at OR [facility] Right: Eye BAUSCH 12/30/2023 [id number] / [id number] / [id number] Lens Intraoc 22.5 - [id number] - [id number] Implanted:Qty: 1 on 04/05/2020 by Yury Brady MD at OR [facility] Left: Eye BAUSCH 09/28/2024 [id number] / [id number] / [id number] documented as of this encounter Visit Diagnoses Diagnosis Hypertensive kidney disease with stage 3a chronic kidney disease- Primary Atherosclerosis of skagway coronary artery of skagway heart without angina pectoris Dyslipidemia, goal LDL below 70 Other and unspecified hyperlipidemia History of pulmonary embolism Personal history of pulmonary embolism Tachy-chintan syndrome (HCC) Sinoatrial node dysfunction S/P placement of cardiac pacemaker Cardiac pacemaker in situ Arthralgia of right hip Gastro-esophageal reflux disease with esophagitis, without bleeding Sinus tachycardia Other specified cardiac dysrhythmias Coronary artery disease involving skagway coronary artery of skagway heart without angina pectoris Presence of cardiac pacemaker Cardiac pacemaker in situ Palpitations HTN, goal below 140/90 Unspecified essential hypertension Hypertensive kidney disease with stage 3a chronic kidney disease- Primary Dyslipidemia, goal LDL below 70 Other and unspecified hyperlipidemia Gastro-esophageal reflux disease with esophagitis, without bleeding Atherosclerosis of skagway coronary artery of skagway heart without angina pectoris Advanced care planning/counseling discussion- Primary Other specified counseling Hypertensive kidney disease with stage 3a chronic kidney disease (HCC) History of AL (myocardial infarction) Old myocardial infarction Tachy-chintan syndrome [...] 3a chronic kidney disease- Primary Atherosclerosis of [place]agway coronary artery of skagway heart without angina pectoris Migraine without aura and without status migrainosus, not intractable Migraine without aura, without mention of intractable migraine without mention of status migrainosus Shortness of breath- Primary documented in this encounter Advance Directives Documents on File Type Date Recorded Patient Assistant Infant Teacher Expl anation Advance Directives and Living Will [...] Agen t (per Health Care Power of Manager Consumer document) Guille Urban Adult Child Health Care Agen t (per Health Care Power of Manager Consumer document) [email or web address] Care Teams Scientific Programmer Relationship Specialty Start Date End Date Rafa Bergman MD [address] [place] [address] [place] [phone] PCP - General Family Medicine 04/19/21 documented as of this encounter
--- OUTSIDE RECORDS SUMMARY | 2024-07-23 23:58 | External Medical Summary | Summary of Care ---
Author Name Unknown Organization [facility] Address [address] [place] [address] Phone [phone] Care Team Providers Care Sales Development Manager Name Role Phone Rafa Bergman MD Primary Care Provide r Encounter Details Date Type Department Care Team (Late st Contact Info) Description 07/10/2024 Documentation [facility], [facility] [address] [place] [address] Olinda Briggs RN [address] [place] [id number] Allergies Active Allergy Reactions Criticality Noted Date Comments Colchicine Diarrhea 06/16/2018 Daptomycin 01/05/2015 Shortness of breath Imipenem Edema airway High 01/05/2015 Metoprolol Low 01/23/2021 Other reaction(s): fatigue Zoledronic Acid 04/24/2012 Myalgias, fever, chills, vomiting x 2 days Sulfa Antibiotics 12/22/2002 Bactrim--itchy all over, eyes swollen documented as of this encounter (statuses as of 07/10/2024) Medications ASPIRIN 81 MG PO TABS Take [...] goal LDL below 70,Coronary artery disease involving [place] coronary artery of [place] heart without angina pectoris TAKE ONE TABLET [...] tachycardia,Tach y-chintan syndrome (HCC),Coronary artery disease involving [place] coronary artery of [place]ami heart without angina pectoris,Presenc e of cardiac [...] mouth in the morning. 100 Tablet 3 5 Active predniSONE 10 MG Oral Tablet (Deltasone)Indic ations:Pain in joint of right shoulder Take 5 tabs for 2 days, 4 tabs for 2 days, 3 tabs for 2 days, 2 tabs for 2 days 1 tab for 2 days 30 Tablet Active Gabapentin 100 MG Oral Capsule (Neurontin) Take 1 Capsule by mouth 3 times a day. 270 Capsule Active Hospital, Clinic, or Other Facility Administered [...] as of this encounter (statuses as of 07/10/2024) Active Problems Problem Noted Date Diagnosed Date [...] eye 01/03/2023 History of KS (myocardial infarction) 11/27/2022 Assessment & Plan (04/16/2024 [...] S/P angioplasty with stent 11/27/2018 Atherosclerosis of [place] co ronary artery of miami heart without angina pectoris 07/08/2018 Overview (11/21/2023): [...] as of this encounter (statuses as of 07/10/2024) Resolved Problems Problem Noted Date Diagnosed Date Resolved Date Purulent endophthalmitis of right eye 01/03/2023 11/08/2023 Other pulmonary embolism wit h acute cor pulmonale 10/01/2022 04/26/2023 Overview (04/26/2023): history Medical home patient encounter 09/13/2022 11/08/2023 Atherosclerosis of coronary artery of mi[place] heart without angina pectoris 09/10/2022 10/31/2022 Hypothyroidism [...] filter 02/28/2015 Atherosclerotic heart diseas e of mi[place] coronary artery with angina pectoris 11/2018 CKD (chronic kidney disease) stage 2, GFR 60-89 ml/min 03/12/2019 documented as of this encounter (statuses as of 07/10/2024) Immunizations Name Administration Dates Next Due COVID-19 [...] 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 Spoke with Leon Live PA-C. Noted changes- Currently on prednisone regimen for shoulder discomfort. Pamelor added by neurology every other day- then daily- persistent headaches. Recent RSV+- Pneumonia/pleural effusion-received IV lasix several days- No thoracentesis indicated.Lingering fatigue reported. Patient voices understanding. Reports it seems to be working. No changes to Care plan. documented in this encounter Plan of Treatment Upcoming Encounters Date Type Department Care Team (Late st Contact Info) Description 07/14/2024 2:30 PM EDT Cardiac Studies Cardiology [address] [place] [id number] [facility] [address] [place] [address] 07/22/2024 1:30 PM EDT Home Visit [facility] [place], [facility] [address] [place] [id number] Olinda Briggs RN [address] [place] [address] 07/28/2024 10:00 AM EDT Home Visit [facility] [place], [facility] [address] [place] [phone] Leon Live PA-C [address] [place] [address] 07/30/2024 1:30 PM EDT Imaging Radiology [facility] [address] [place] [phone] 08/11/2024 1:45 PM EDT Office Visit Ophthalmology, [facility] [address] [place] [phone] Pedro Tinsley DO [address] [place] [address] Nurse Roscoe Levya [address] [place] [address] Photographer Justen Leyva [address] [place] [id number] 08/18/2024 10:20 AM EDT Laboratory Laboratory [address] [place] [phone] [place] [address] 08/25/2024 3:30 PM EDT Office Visit Hematology/Oncology [facility] [place] [address] [place] [phone] Arianna Szymanski MD [address] [place] [address] 09/07/2024 3:30 PM EDT Office Visit Rheumatology [address] [place] [phone] José Miguel Cullen CRNP [address] [place] [address] [place] [address] 09/11/2024 12:50 PM EDT Office Visit Dermatology, Jesu Wilson [address] [place] [phone] Dasha Nelson PA-C [address] [place] [phone] 09/29/2024 3:10 PM EDT Office Visit Urogynecology Stephany Hoover [address] [place] [address] Quincy Garcia MD [address] [place] [address] 10/05/2024 1:30 PM EDT Office Visit Cardiology, [facility] [address] [place] [phone] Charles Ortega DO [address] [place] [address] 10/05/2024 2:15 PM EDT Telemedicine Neurology [facility] [address] [facility] [place] [phone] Alfonso Manning MD [address] [facility] [place] [address] 12/30/2024 12:40 PM EDT Office Visit Family Medicine [address] [phone] Irene Bowens MD [address] [place] [address] [place] [phone] Health Maintenance Due Date Last Done Comments Adult Wellness Visit 02/06/2018 02/06/2017 Depression Screening 07/17/2022 07/17/2021 COVID-19 Vaccine ( season) 2023 02/05/2022, 08/02/2021, 02/28/2021, Additional history exists Albumin/Creatinine Ratio 02/13/2024 023, 03/21/2022, 04/19/2021, Additional history exists HbA1c 04/26/2024 04/26/2023, 03/02, 04/19/2021, Additional history exists CKD PHOS USE SMARTSET 96896 06/26/202405/31, 04/19/2021, 11/27/2019, Additional history exists DXA Scan 07/18/2024 07/18/2022, 06/30, 12/22/2019, Additional history exists Influenza Vaccine (FLU shot) (Season Ended) 2024 04/19/2023, 01/30/2022, 12/28/2020, Additional history exists GFR 12/26/2024 06/25/2024, 03/0 11/2024, 02/17/2024, Additional history exists CKD HGB USE SMARTSET 52228 02/16/202502/16, 02/17/2024, 06/27/2023, Additional history exists TSH [...] D LEVEL ONCE IN A LIFETIME-USE SMARTSET# 81120 Completed 06/27/2023, 11/06/2021, 12/28/2019, Additional history exists [...] this encounter Medical Devices Implanted Type Area Cloth Shader Device Identifier Shelf Expiration Date Model / Serial / Lot Lens Intraoc 21.5 - [id number] - [id number] Implanted:Qty: 1 on 05/12/2019 by Yury Brady MD at OR [facility] Right: Eye BAUSCH 12/30/2023 [id number] / [id number] / [id number] Lens Intraoc 22.5 - [id number] - [id number] Implanted:Qty: 1 on 04/05/2020 by Yury Brady MD at OR [facility] Left: Eye BAUSCH 09/28/2024 [id number] / [id number] / [id number] documented as of this encounter Advance Directives Documents on File Type Date Recorded Patient Public Finance Specialist Expl anation Advance Directives and Living Will 03/11/2018 Krissy WallaceEsthersofie Urban ADVANCE DIR ECTIVE * Full Code [...] Agen t (per Health Care Power of Staple Processing Machine Operator document) Guille Urban Adult Child Health Care Agen t (per Health Care Power of Staple Processing Machine Operator document) [email or web address] om Care Teams Sales Development Manager Relationship Specialty Start Date End Date Rafa Bergman MD [address] [place] [address] [place] [address] PCP - General Family Medicine 04/19/21 documented as of this encounter
--- OUTSIDE RECORDS SUMMARY | 2024-07-23 23:59 | External Medical Summary | Summary of Care ---
Author Name Unknown Organization [facility] Address [address] [facility] [place] [place] [address] Phone [phone] Care Team Providers Care Slab Miller Operator Name Role Phone Rafa Bergman MD Primary Care Provide r Reason for Visit * Reason Comments Acute Encounter Details Date Type Department Care Team (Late st Contact Info) Description 07/08/2024 11:20 AM EDT Office Visit Family Medicine [address] [place] [phone] Rafa Bergman MD [address] [place] [address] [place] [address] Pain in joint of right shoulder*; Fatigue, unspecified type Allergies Active Allergy Reactions Criticality Noted Date Comments Colchicine Diarrhea 06/16/2018 Daptomycin 01/05/2015 Shortness of breath Imipenem Edema airway High 01/05/2015 Metoprolol Low 01/23/2021 Other reaction(s): fatigue Zoledronic Acid 04/24/2012 Myalgias, fever, chills, vomiting x 2 days Sulfa Antibiotics 12/22/2002 Bactrim--itchy all over, eyes swollen documented as of this encounter (statuses as of 07/08/2024) Medications ASPIRIN 81 MG PO TABS Take [...] goal LDL below 70,Coronary artery disease involving shinnecock coronary artery of shinnecock heart without angina pectoris TAKE ONE TABLET [...] tachycardia,Tach y-chintan syndrome (HCC),Coronary artery disease involving shinnecock coronary artery of shinnecock heart without angina pectoris,Presenc e of cardiac pacemaker,Palpit ations,HTN, goal below 140/90 Take 0.5 Tablets by mouth at bedtime. 5 Active Gabapentin 100 MG Oral Capsule (Neurontin) Take 1 Capsule by mouth 3 times a day. 90 Capsule 5 Active Additional Information Patient taking differently:100 mg Oral TID(Non-Specified),Takes twice daily in the morning and at bedtime, Reported on 07/08/2024 Nortriptyline HCl 10 MG Oral Capsule (Pamelor) One capsule at bedtime every other night for 2 weeks then one orally at bedtime every night 30 Capsule 5 Active Vitamin B-12 1000 MCG Oral Tablet (Cyanocobalamin) Take 1 Tablet by mouth in the morning. In the morning.. 100 Tablet 3 Active predniSONE 10 MG Oral Tablet (Deltasone)Indic ations:Pain in joint of right shoulder Take 5 tabs for 2 days, 4 tabs for 2 days, 3 tabs for 2 days, 2 tabs for 2 days 1 tab for 2 days 30 Tablet Active Hospital, Clinic, or Other Facility Administered [...] as of this encounter (statuses as of 07/08/2024) Active Problems Problem Noted Date Diagnosed Date [...] S/P angioplasty with stent 11/27/2018 Atherosclerosis of shinnecock co ronary artery of shinnecock heart without angina pectoris 07/08/2018 Overview (11/21/2023): history of NSTEMI status post AMIE to LAD (culprit) and RCA, 04/28/2018 Assessment & Plan (06/23/2024 3:37 PM EDT): Follows with cardiology Continue statin Assessment & Plan (01/24/2024 4:40 PM EDT): Cardiac rehab at [facility] 2x week Assessment & Plan (11/21/2023 5:32 [...] as of this encounter (statuses as of 07/08/2024) Resolved Problems Problem Noted Date Diagnosed Date Resolved Date Purulent endophthalmitis of right eye 01/03/2023 11/08/2023 Other pulmonary embolism wit h acute cor pulmonale 10/01/2022 04/26/2023 Overview (04/26/2023): history Medical home patient encounter 09/13/2022 11/08/2023 Atherosclerosis of coronary artery of shinnecock heart without angina pectoris 09/10/2022 10/31/2022 Hypothyroidism [...] filter 02/28/2015 Atherosclerotic heart diseas e of shinnecock coronary artery with angina pectoris 11/2018 CKD (chronic kidney disease) stage 2, GFR 60-89 ml/min 03/12/2019 documented as of this encounter (statuses as of 07/08/2024) Immunizations Name Administration Dates Next Due COVID-19 [...] No 02/06/2024 Does the household have a [facility] of income? 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 Not on file Not on file documented as of this encounter Last Filed Vital Signs Vital Sign Reading Time Taken Comments Blood Pressure 104/72 07/08/2024 11:09 AM EDT Pulse - - Temperature 35.7 °C (96.2 °F) 07/08/2024 1 1:09 AM EDT Respiratory Rate - - Oxygen Saturation 91% 07/08/2024 11: 09 AM EDT Inhaled Oxygen Concentration - - Weight 79.3 kg (174 lb 12.8 oz) 025 11:09 AM EDT Height - - Body Mass Index 30.96 02/24/2024 12:52 PM EST documented in this encounter Progress Notes * Rafa Bergman MD - 07/08/2024 11:16 AM EDT Subjective: HPI: Rehana Moran is a 79 year old female with hx of hypothyroidism, HLD, HTN, hx of OR, CAD s/p stent, GERD, CKD III, osteoporosis, hx of DVT/PE x2 (2009, 2022), Renal cyst, tachy-chintan syndrome s/p dual chamber pacemaker, prediabetes, macular degeneration, R retinal vein occlusion, B/L TKA, Gout, Migraine seen for Pt is still recovering from RSV pneumonia - fatigue - denied any SOB - denied any fever - cough only in the morning R shoulder pain: - for 2 weeks - started after she lifted her great grandson - not getting worsening - denied any fever - taking tylenol - no swelling Patient Active Problem List Diagnosis Senile osteoporosis HTN, goal below 140/90 Hypothyroidism (acquired) Dyslipidemia, goal LDL below 70 Retinal vein occlusion of right eye Vitamin B12 deficiency History of DVT (deep vein thrombosis) H/O nonmelanoma skin cancer Rhinitis, nonallergic Deviated nasal septum Arthritis of left ankle Atherosclerosis of shinnecock coronary artery of shinnecock heart without angina pectoris S/P angioplasty with stent Hypertensive kidney disease with stage 3a chronic kidney disease History of basal cell carcinoma Chronic kidney disease, stage 3a (HCC) Prediabetes Gastro-esophageal reflux disease with esophagitis, without bleeding Tachy-chintan syndrome (HCC) S/P placement of cardiac pacemaker History of OR (myocardial infarction) History of pulmonary embolism Nevus of choroid of right eye Migraine without aura and without status migrainosus, not intractable 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 Current Outpatient Medications Medication Sig Dispense Refill ASPIRIN 81 MG PO TABS Take by mouth at bedtime. Acetaminophen 500 MG Oral Tablet Take 2 Tablets by mouth every 6 hours as needed for Pain. CoQ10 100 MG Oral Capsule Take 1 Capsule by mouth in the morning. Loperamide HCl 2 MG Oral Capsule (Imodium) take 1 capsule 4 times daily as needed for loose stool 30 Capsule 3 Dicyclomine HCl 10 MG Oral Capsule (Bentyl) take 1 capsule as needed in the morning, 1 capsules as needed at noon, 1 capsule as needed in the evening and 1 capsule as needed before bedtime for pain or gas. take for abdominal pain. 120 Capsule 0 Cholecalciferol 50 MCG (2000 UT) Oral Capsule Take 1 Capsule by mouth in the morning. Fortify Probiotic Womens Oral Capsule Delayed Release Take 1 Capsule by mouth in the morning. Bisacodyl 5 MG Oral Tablet Delayed Release (Dulcolax) Take 1 Tablet by mouth daily as needed for Constipation. Nitroglycerin 0.4 MG Sublingual Tablet Sublingual (Nitrostat) DISSOLVE ONE TABLET UNDER TONGUE NEEDED FOR CHEST PAIN 25 Tablet 1 Apixaban 2.5 MG Oral Tablet (Eliquis) Take 1 Tablet by mouth in the morning and 1 Tablet before bedtime. 180 Tablet 3 Pantoprazole Sodium 40 MG Oral Tablet Delayed Release (Protonix) Take 1 Tablet by mouth in the morning and 1 Tablet in the evening. 90 Tablet 3 Rosuvastatin Calcium 5 MG Oral Tablet (Crestor) TAKE ONE TABLET BY MOUTH IN THE MORNING 90 Tablet 3 Levothyroxine Sodium 125 MCG Oral Tablet (Levoxyl) Take 1 Tablet by mouth daily first thing in the morning. (at least 30 min prior to breakfast or other meds) 90 Tablet 2 Ondansetron HCl 4 MG Oral Tablet Take 1 Tablet by mouth every 8 hours as needed for Nausea. 30 Tablet 0 Famotidine 20 MG Oral Tablet (Pepcid) Take 1 Tablet by mouth at bedtime. 90 Tablet 3 Riboflavin 400 MG Oral Tablet Take 1 Tablet by mouth in the morning. 90 Tablet 3 Magnesium Oxide -Mg Supplement 400 MG Oral Capsule (Magnesium Extra Strength) Take 1 capsule by mouth in the morning. 90 Capsule 3 Allopurinol 300 MG Oral Tablet (Zyloprim) TAKE 1 & 1/2 TABLETS BY MOUTH EVERY DAY 135 Tablet 0 Spironolactone 25 MG Oral Tablet (Aldactone) Take 0.5 Tablets by mouth in the morning. Propranolol HCl 10 MG Oral Tablet (Inderal) Take 0.5 Tablets by mouth at bedtime. Gabapentin 100 MG Oral Capsule (Neurontin) Take 1 Capsule by mouth 3 times a day. (Patient taking differently: Take 1 Capsule by mouth 3 times a day. Takes twice daily in the morning and at bedtime) 90 Capsule 0 Nortriptyline HCl 10 MG Oral Capsule (Pamelor) One capsule at bedtime every other night for 2 weeksthen one orally at bedtime every night 30 Capsule 5 Vitamin B-12 1000 MCG Oral Tablet (Cyanocobalamin) Take 1 Tablet by mouth in the morning. In the morning.. 100 Tablet 3 predniSONE 10 MG Oral Tablet (Deltasone) Take 5 tabs for 2 days, 4 tabs for 2 days, 3 tabs for 2 days, 2 tabs for 2 days 1 tab for 2 days 30 Tablet 0 dilTIAZem HCl ER 360 MG Oral Tablet Extended Release 24 Hour Take 1 Tablet by mouth in the morning.(Patient taking differently: Take 1 Tablet by mouth in the morning. Takes in the evening .) 90 Tablet 2 Current Facility-Administered Medications Medication Dose Route Frequency Provider Last Rate Last Admin ROPivacaine (Naropin) inj 1.5 mg 1.5 mg Injection PRN 1.5 mg at 06/26/24 1146 Aflibercept (Eylea) intraviteal prefilled syringe 2 mg 2 mg Intravitreal PRN 2 mg at 02/04/24 1138 Faricimab-svoa (Vabysmo) prefilled syringe inj 6 mg 6 mg Intravitreal PRN 6 mg at 06/26/24 1146 Past Medical History: Diagnosis Date Allergic rhinitis Atherosclerotic heart disease of shinnecock coronary artery with angina pectoris ([facility]) Benign neoplasm of skin Benign paroxysmal vertigo 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 10/28/2013 Chronic sinusitis 10/28/2013 CKD (chronic kidney disease) stage 2, GFR 60-89 ml/min Degenerative disc disease, cervical 05/18/2016 Derangement of meniscus right knee Diverticulitis of colon DVT (deep venous thrombosis) ([facility]) 02/28/2015 Dyslipidemia, goal LDL below 100 09/15/2013 GERD (gastroesophageal reflux disease) 09/15/2013 HTN, goal below 140/90 Hypothyroidism (acquired) 09/15/2013 INFORMATION 02/05/2000 pulmonary embolism Intermittent asthma, reliever use 0-2/wk 10/18/2009 Intradermal Nevus,right upper arm 11/12/2001 Kidney cyst, acquired KIDNEY DZ,CHRONIC (GFR 30-59) STAGE III 10/20/2009 Per CKD Protocol, #1 MALIG KERRIE SKIN ARM 09/05/2004 MALIG KERRIE SKIN TRUNK 09/05/2004 new lesion- rt shoulder NSTEMI (non-ST elevated myocardial infarction) ([facility]) 04/28/2018 [facility], cathed and LAD stented with AMIE, RCA [...] elevated TSH, small pericardial effusion [facility] Pericarditis as complication of acute myocardial infarction ([facility]) 05/15/2018 [facility] colchicine not tolerated well. Pericarditis as complication of acute myocardial infarction ([facility]) 06/05/2018 [facility] steroids Postmenopausal atrophic vaginitis 09/15/2013 Presence of vena cava filter PROLAPSE OF VAGINAL WALL 10/28/2000 Pulmonary embolism and infarction (HCC) 08/30/2009 Pulmonary embolus (HCC) 1999 Purulent endophthalmitis of right eye 01/03/2023 Recurrent sinus infections 08/13/2017 Retroperitoneal bleed 02/28/2015 Sebaceous hyperplasia, Rt forehead 10/05/97 01/28/2002 Senile osteoporosis 05/14/2008 Traumatic rupture of left posterior tibial tendon 12/07/2014 Urinary frequency 09/15/2013 Viral warts, unspecified Condylomata Vitamin B12 deficiency 05/12/2014 Vitamin D insufficiency 05/12/2014 Past Surgical History: Procedure Laterality Date ARTHROPLASTY KNEE TOTAL 08/18/2009 right knee ARTHROPLASTY KNEE TOTAL 11/11/2014 left knee- [facility]- Dr. Lopez CARDIAC CATH-CARDIOLOGY ONLY 04/28/2018 AMIE to LAD, PCI to RCA COLONOSCOPY 09/2004 diverticulosis COLONOSCOPY, DIAGNOSTIC (RECTUM) 02/27/2017 diverticulosis, repeat 5 yrs/COLONOSCOPY FLEXIBLE PROXIMAL DIAGNOSTIC performed by Ford Pantoja MD at ENDOSCOPY [facility] CTA CHEST NON-CORONARY W CONTRAST 11/13/2018 no [...] Right 11/13/2022 #42 Eylea OD; Dr Tinsley INJECTION OF EYE DRUG Right 02/13/2023 # 43 Eylea OD, Dr. Tinsley INJECTION OF EYE DRUG Right 04/16/2023 # 44 Eylea OD, Dr. Tinsley INJECTION OF EYE DRUG Right 06/14/2023 # 45 Eylea OD, Dr. Tinsley INJECTION OF EYE DRUG Right 08/01/2023 # 46 Eylea OD, Dr. Tinsley INJECTION OF EYE DRUG Right 09/11/2023 #47 Eylea OD, Dr. Tinsley INJECTION OF EYE DRUG Right 11/07/2023 #48 Eylea OD, Dr. Tinsley INJECTION OF EYE DRUG Right 12/16/2023 #49 Eylea OD, Dr. Tinsley INJECTION OF EYE DRUG Right 02/04/2024 # 50 Eylea OD, Dr. Tinsley INJECTION OF EYE DRUG Right 03/18/2024 #[address] Tinsley INJECTION OF EYE DRUG Right 05/07/2024 # 2 Vabysmo OD, Dr. Tinsley INJECTION OF EYE DRUG Right 06/26/2024 #3 Vabysmo OD, Dr. Tinsley IR FILTER PLACEMENT VENA CAVA 10/2014 [facility] MISCELLANEOUS ORDER ([facility] ONLY) 12/02/2013-12/02/2014 LUCENTIS 0.5MG CONSENT SIGNED OD; DR TINSLEY MISCELLANEOUS ORDER ([facility] ONLY) Right 01/12/2015-01/13/2016 LUCENTIS 0.5MG CONSENT OD SIGNED; DR TINSLEY MISCELLANEOUS ORDER ([facility] ONLY) Right 10/21/2015-10/20/2016 EYLEA OD [...] EYLEA OD CONSENT SIGNED, Dr. Tinsley (Exp 03-29-2021) OTHER (INFORMATION) Bilateral EYLEA OU CONSENT DR. TINSLEY/MAYNOR EXP. 04/18/23 OTHER (INFORMATION) Right EYLEA OD CONSENT DR. TINSLEY/MAYNOR EXP. 04/16/24 OTHER (INFORMATION) Vabysmo Consent EXP 03/18/2025 - Dr. Tinsley REMOVAL OF INNER EYE FLUID Right 01/30/2023 RIGHT VITRECTOMY MECHANICAL PARS PLANA APPROACH performed by Brian Gagnon DO at OR [facility] REMOVAL OF TONSILS, UNDER AGE 12 REMOVE CATARACT, INSERT LENS PROSTH Right 05/12/2019 right EXTRACAPSULAR CATARACT REMOVAL WITH INTRAOCULAR LENS performed by Yury Brady MD at OR [facility] REMOVE CATARACT, INSERT LENS PROSTH Left 04/05/2020 left EXTRACAPSULAR CATARACT REMOVAL WITH INTRAOCULAR LENS performed by Yury Brady MD at OR [facility] REPAIR BLADDER & VAGINA, CYSTOCELE 01/2001 Dr [...] Other reaction(s): fatigue Family History Problem Relation Name Age of Onset Hypertension Mother dementia Thyroid Disorder Mother Stroke Mother Mini strokes, multiple Hypertension Father Heart Disorder Father rheumatic heart ds, age 62 with mi Allergies Daughter significant allergic rhinitis Mental Disorder Son h/o depression, attempted suicide Asthma Son Cancer None Diabetes None Eye Problems None pt denies hx AMD, glaucoma, retinal detachments or blindness No Past Hx 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 NAD, well developed R shoulder: no TTP of the shoulder area but TTP of the R scapula area, Normal ROM of the shoulder with intact strength Lungs: CTA, no wheezing or crackles Psych:. AAOx3, normal affect ASSESSMENT/PLAN: Fatigue is likely due to still recovering from the pNA - recommended warm compress AM, Ice PM and topical pain reliever Pain in joint of right shoulder (Primary) - predniSONE 10 MG Oral Tablet (Deltasone); Take 5 tabs for 2 days, 4 tabs for 2 days, 3 tabs for 2days, 2 tabs for 2 days 1 tab for 2 days Fatigue, unspecified type Rafa Bergman MD Family medicine[address] [id number] documented in this encounter Nursing Notes * Lindsey Yi CMA - 07/08/2024 11:05 AM EDT She is here for shoulder pain. She just doesn't feel good overall. SOB since RSV. Chills every night. documented in this encounter Plan of Treatment Upcoming Encounters Date Type Department Care Team (Late st Contact Info) Description 07/14/2024 2:30 PM EDT Cardiac Studies Cardiology [address] [place] [id number] Cadence Horne [facility] Justen Hoover [address] [place] [address] 07/28/2024 10:00 AM EDT Home Visit luis at [place], [facility] [address] [place] [address] Leon Live PA-C [address] [place] [address] 07/30/2024 1:30 PM EDT Imaging Radiology [facility] [address] [place] [phone] 08/11/2024 1:45 PM EDT Office Visit Ophthalmology, [facility] [address] [place] [phone] Pedro Tinsley DO [address] [place] [address] Nurse Roscoe Leyva [address] [place] [address] Photographer Justen Leyva [address] [place] [address] 08/18/2024 10:20 AM EDT Laboratory Laboratory [address] [place] [phone] [place], Lab [address] [place] [address] 08/25/2024 3:30 PM EDT Office Visit Hematology/Oncology [facility] [address] [place] [phone] Arianna Szymanski MD [address] [place] [address] 09/07/2024 3:30 PM EDT Office Visit Rheumatology [address] [place] [phone] José Miguel Cullen CRNP [address] [facility] [place] [address] 09/11/2024 12:50 PM EDT Office Visit Dermatology, Jesu Wilson [address] [place] [address] Dasha Nelson PADelaneyC [address] [place] [address] 09/29/2024 3:10 PM EDT Office Visit Urogynecology [facility] [address] [place] [address] Quincy Garcia MD [address] [place] [address] 10/05/2024 1:30 PM EDT Office Visit Cardiology, [facility] [address] [place] [phone] Charles Ortega, [address] [place] [address] 10/05/2024 2:15 PM EDT Telemedicine Neurology [facility] [address] [place] [address] Alfonso Manning MD [address] [place] [address] 12/30/2024 12:40 PM EDT Office Visit Family Medicine [address] [place] [phone] Irene Bowens MD [address] [place] [address] [place] [phone] Health Maintenance Due Date Last Done Comments Adult Wellness Visit 02/06/2018 02/06/2017 Depression Screening 07/17/2022 07/17/2021 COVID-19 Vaccine ( season) 2023 02/05/2022, 08/02/2021, 02/28/2021, Additional history exists Albumin/Creatinine Ratio 02/13/2024 023, 03/21/2022, 04/19/2021, Additional history exists HbA1c 04/26/2024 04/26/2023, 03/02, 04/19/2021, Additional history exists CKD PHOS USE SMARTSET 91654 06/26/202405/31, 04/19/2021, 11/27/2019, Additional history exists DXA Scan 07/18/2024 07/18/2022, 06/30, 12/22/2019, Additional history exists Influenza Vaccine (FLU shot) (Season Ended) 2024 04/19/2023, 01/30/2022, 12/28/2020, Additional history exists GFR 12/26/2024 06/25/2024, 03/0 11/2024, 02/17/2024, Additional history exists CKD HGB USE SMARTSET 57008 02/16/202502/16, 02/17/2024, 06/27/2023, Additional history exists TSH [...] D LEVEL ONCE IN A LIFETIME-USE SMARTSET# 16978 Completed 06/27/2023, 11/06/2021, 12/28/2019, Additional history exists [...] this encounter Medical Devices Implanted Type Area Retail Greeting Card Merchandiser Device Identifier Shelf Expiration Date Model / Serial / Lot Lens Intraoc 21.5 - [id number] - [id number] Implanted:Qty: 1 on 05/12/2019 by Yury Brady MD at OR [facility] Right: Eye BAUSCH 12/30/2023 [id number] / [id number] / [id number] Lens Intraoc 22.5 - [id number] - [id number] Implanted:Qty: 1 on 04/05/2020 by Yury Brady MD at OR [facility] Left: Eye BAUSCH 09/28/2024 [id number] / [id number] / [id number] documented as of this encounter Visit Diagnoses Diagnosis Hypertensive kidney disease with stage 3a chronic kidney disease- Primary Atherosclerosis of shinnecock coronary artery of sh[place]necock heart without angina pectoris Dyslipidemia, goal LDL below 70 Other and unspecified hyperlipidemia History of pulmonary embolism Personal history of pulmonary embolism Tachy-chintan syndrome (HCC) Sinoatrial node dysfunction S/P placement of cardiac pacemaker Cardiac pacemaker in situ Arthralgia of right hip Gastro-esophageal reflux disease with esophagitis, without bleeding Sinus tachycardia Other specified cardiac dysrhythmias Coronary artery disease involving shinnecock coronary artery of shinnecock heart without angina pectoris Presence of cardiac pacemaker Cardiac pacemaker in situ Palpitations HTN, goal below 140/90 Unspecified essential hypertension Hypertensive kidney disease with stage 3a chronic kidney disease- Primary Dyslipidemia, goal LDL below 70 Other and unspecified hyperlipidemia Gastro-esophageal reflux disease with esophagitis, without bleeding Atherosclerosis of shinnecock coronary artery of shinnecock heart without angina pectoris Advanced care planning/counseling discussion- Primary Other specified counseling Hypertensive kidney disease with stage 3a chronic kidney disease (HCC) History of OR (myocardial infarction) Old myocardial infarction Tachy-chintan syndrome [...] 3a chronic kidney disease- Primary Atherosclerosis of shinnecock coronary artery of shinnecock heart without angina pectoris Migraine without aura and without status migrainosus, not intractable Migraine without aura, without mention of intractable migraine without mention of status migrainosus Pain in joint of right shoulder- Primary Pain in joint, shoulder region Fatigue, unspecified type documented in this encounter Advance Directives Documents on File Type Date Recorded Patient District Supervisor Expl anation Advance Directives and Living [...] Agen t (per Health Care Power of Poultry Farm Laborer document) Guille Urban Adult Child Health Care Agen t (per Health Care Power of Poultry Farm Laborer document) [email or web address] Care Teams Slab Miller Operator Relationship Specialty Start Date End Date Rafa Bergman MD [address] [place] [address] [place] [id number] PCP - General Family Medicine 04/19/21 documented as of this encounter"
--- OUTSIDE RECORDS SUMMARY | 2024-07-23 23:59 | External Medical Summary | Summary of Care ---
Author Name Unknown Organization [facility] Address [address] [facility] [address] Phone [phone] Care Team Providers Care Afternoon Nanny Name Role Phone Rafa Bergman MD Primary Care Provide r Reason for Visit * Reason Comments Follow Up * Precert (Within 10 days (routine)) - Authorized Specialty Diagnoses / Procedures Referred By Ethan nicole Referred To Contact Ophthalmology Diagnoses Tributary (branch) retinal vein occlusion, right eye, with macular edema Procedures NE INJECTION, FARICIMAB-SVOA, 0.1 MG NE INTRAVITREAL NJX PHARMACOLOGIC AGT SPX Pedro Tinsley DO [address] [place] [address] Phone: tel: fax: Ophthalmology, [facility] [address] [facility] [place] [address] Phone: tel: fax: Referral ID Status Reason Start Date Expiration Date V isits Requested Visits Authorized [id number] Authorized Precert 02/04/2024 03/31/2099 [id number] Encounter Details Date Type Department Care Team (Surya st Contact Info) Description 06/26/2024 11:30 AM EDT Office Visit Ophthalmology, [facility] [address] [place] [address] Pedro Tinsley DO [address] [place] [address] 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 Active Acetaminophen 500 MG Oral Tablet Take 2 Tablets by mouth every 6 hours as needed for Pain. Active CoQ10 100 MG Oral Capsule Take by mouth. Ac tive Loperamide HCl 2 MG Oral Capsule (Imodium)Indicat [...] goal LDL below 70,Coronary artery disease involving [place] coronary artery of [place] heart without angina pectoris TAKE ONE TABLET BY MOUTH IN THE MORNING 90 Tablet 3 05/25/2024 7:44 AM EST 01/10/20 24 Active Levothyroxine Sodium 125 MCG Oral Tablet (Levoxyl)Indicat ions:Hypothyroid ism (acquired) Take 1 Tablet by mouth daily first thing in the morning. (at least 30 min prior to breakfast or other meds) 90 Tablet 2 05/29/2024 11:01 AM EST 01/10/20 24 Active Vitamin B-12 1000 MCG Oral Tablet (Cyanocobalamin) Take 1 Tablet by mouth in the morning. In the morning.. 90 Tablet 1 04/14/2024 5:36 PM EST 01/10/20 24 Active Ondansetron HCl 4 [...] 05/06/2024 11:42 AM EST 03/27/20 24 Active Riboflavin 400 MG Oral Tablet Take 1 Tablet by mouth in the morning. 90 Tablet 3 04/17/2024 1:21 PM EST 04/13/19 25 Active Magnesium Oxide -Mg Supplement 400 MG Oral Capsule (Magnesium Extra Strength) Take 1 capsule by mouth in the morning. 90 Capsule 3 04/17/2024 1:21 PM EST 04/13/19 Active Allopurinol 300 MG Oral Tablet (Zyloprim) TAKE 1 & 1/2 TABLETS BY MOUTH EVERY DAY 135 Tablet 05/14/2024 5:55 PM EST 05/11/19 Active Gabapentin 100 MG Oral Capsule (Neurontin) Take one cap three times a day 90 Capsule 1 06/17/19 Active Additional Information Patient taking differently: 100 mg Oral BID (.AM/PM), Take one cap three times a day, Reported on 06/26/2024 Spironolactone 25 MG Oral Tablet (Aldactone) Take 0.5 Tablets by mouth in the morning. 06/24/19 Active Propranolol HCl 10 MG Oral Tablet (Inderal)Indicat ions:Sinus tachycardia,Tach y-chintan syndrome (HCC),Coronary artery disease involving [place] coronary artery of [place] heart without angina pectoris,Presenc e of cardiac pacemaker,Palpit ations,HTN, goal below 140/90 Take 0.5 Tablets by mouth at bedtime. 06/26/19 Active Gabapentin 100 MG Oral Capsule (Neurontin) TAKE ONE CAPSULE BY MOUTH THREE TIMES A DAY 90 Capsule 06/17/19 025 Discontin ued(Medic ation List Clean Up) Hospital, Clinic, or Other [...] as of this encounter (statuses as of 06/26/2024) Active Problems Problem Noted Date Diagnosed Date [...] [place] heart without angina pectoris 07/08/2018 Overview (11/21/2023): history of NSTEMI status post AMIE to LAD (culprit) and RCA, 04/28/2018 Assessment & Plan (06/23/2024 3:37 PM EDT): Follows with cardiology Continue statin Assessment & Plan (01/24/2024 4:40 PM EDT): Cardiac rehab at [facility] 2x week Assessment & Plan [...] as of this encounter (statuses as of 06/26/2024) Resolved Problems Problem Noted Date Diagnosed Date Resolved Date Purulent endophthalmitis of right eye 01/03/2023 11/08/2023 Other pulmonary embolism wit h acute cor pulmonale 10/01/2022 04/26/2023 Overview (04/26/2023): history Medical home patient encounter 09/13/2022 11/08/2023 Atherosclerosis of coronary artery of [place] [...] as of this encounter (statuses as of 06/26/2024) Immunizations Name Administration Dates Next Due COVID-19 [...] older, IM (Adacel) 11/03/2007 Varicella Zoster Vaccine (Adult) 11/04/2012 Zoster [...] 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 Base Eye Exam Visual Acuity (Snellen - Linear) Right Left Dist sc 20/80 -2 20/20 Dist ph sc NI Tonometry (Tonopen, 11:28 AM) Right Left Pressure 13 15 Pupils Pupils Dark Light Shape React APD Right PERRL 3.5 3 Round Sluggish None Left PERRL 3.5 3 Round Sluggish None Visual Toribio (Counting fingers) Right Left Full Full Extraocular Movement Right Left Full Full Neuro/Psych Oriented x3: Yes Mood/Affect: Normal Dilation Both eyes: 0.5% Proparacaine @ 11:28 AM Dilation #2 Right eye: 1.0% Mydriacyl, 2.5% Phenylephrine @ 11:29 AM Dilation Comments Patient cautioned that effects [...] wnl periphery: no RT/RD OCT Interpretation: OD: recurrent resolved irf - worse 425um prior improved 204um prior worse 279um, prior improved 388um prior worse 359um, prior improved 280um prior improved 68um prior improved 106um, prior worse 218um prior STABLE, prior STABLE, prior [...] 05/07/14, 03/30/14, 02/12/14, 01/08/14, 12/02/13) -s/p EYLEA (02/04/24, 12/16/23, 11/07/23, 09/11/23, 08/01/23, 06/14/23, 04/16/23, 02/13/23, 11/13/22#--endophthalmitis, 09/19/22, 07/31/22, 06/12/22, 04/18/22, 08/29/21, 07/13/21, 03/29/21, , --, 10-06-, 08-04-, 06/02/20, 03-22-20, 01-20-20, 10/29/19, 08-12-20, 05/27/19, 11-25-19, 08-21-19, 06-12-19, 04-03-, 01-30-, 11/28/17, 10-03-, 07-25-18, 05-17-2017, 03-21-, 01-25-17, 11-30-17, 10-05-, 07/27/16, --17, 03-16-2015, 12/06/15, 10/21/15) - worse at 9 and 10 and 12 weeks was good in past at 12-14 weeks - best at 6-8 weeks in past - good at 6 weeks; has gone 7 weeks - Vabysmo 05/07/24, 03/18/2024 -7 weeks 2. h/o Endophthalmitis OD -s/p Eylea 11/13/22 s/p ceftaz+vanco 11/17/22 -cx: coagulase negative staph -tapered off PF bid x 7 days then qd x 7 days, then stop -finished levaquin 500mg 7 day course -resolved -PPV 01/30/23--Dr. Gagnon 3. Small Choroidal Nevus OD -low risk -monitor F/u 6-8 weeks, OCT OD Pedro Tnisley, TIMEOUT PROCEDURE: correct patient identity-YES correct procedure and consent-YES verified side and site-YES correct patient position-YES all necessary equipment/prior studies present-YES reviewed special requirements of this patient-YES PROCEDURE: Intravitreal injection of Vabysmo (faricimab) 6mg OD INFORMED CONSENT: Risks, benefits and alternatives [...] solution. An eyelid speculum was placed and 6mg (0.05 ml) of Vabysmo was injected 3.75 mm posterior to the limbus into the midvitreous cavity with a 30 gauge short needle. The eye speculum was removed, Betadine was flushed from the eye and optic nerve perfusion was insured. The patient tolerated the procedure without difficulty and was given followup instructions and instructedto use ophthalmic ointment 3x/day as needed. Pedro Tinsley DO, performed the procedure in its entirety. documented in this encounter Nursing Notes * Pedro Jarrett TECH - 06/26/2024 11:43 AM EDT Rehana Moran to receive third Vabysmo 6mg Injection of the Right eye. Correct eye confirmed with patient and marked by Pedro Tinsley DO Vabysmo 6mg lot # [id number] Exp. Date: 06/2025 documented in this encounter Plan of Treatment Upcoming Encounters Date Type Department Care Team (Late st Contact Info) Description 07/06/2024 8:40 AM EDT Office Visit Neurology [facility] [address] [facility] [place] [address] Alfonso Manning MD [address] [place] [address] 07/06/2024 11:00 AM EDT [facility] [place] [address] Leon Live PA-C [address] [place] [address] 07/14/2024 2:30 PM EDT Cardiac Studies Cardiology [address] [place] [address] [facility] [address] [place] [address] 07/21/2024 10:00 AM EDT Imaging Radiology [facility] [address] [place] [phone] 07/28/2024 10:00 AM EDT Home Visit [facility], [facility] [address] [place] [address] Leon Live PA-C [address] [place] [address] 08/11/2024 1:45 PM EDT [facility] [address] [place] [phone] Pedro Tinsley, [address] [place] [address] Nurse Roscoe Leyva [address] [place] [address] Photographer Justen Leyva [address] [place] [address] 08/18/2024 10:20 AM EDT Laboratory Laboratory [address] [place] [phone] [place] [address] 08/21/2024 3:00 PM EDT Office Visit Rheumatology [address] [place] [phone] José Miguel Cullen CRNP [address] [place] [address] [place] [address] 08/25/2024 3:30 PM EDT Office Visit Hematology/Oncology [facility] [place] [address] [facility] [place] [phone] Arianna Szymanski MD [address] [place] [address] 09/11/2024 12:50 PM EDT Office Visit Dermatology, Marilyn Garces [place] [address] [place] [address] Dasha Nelson PA-C [address] [address] 09/29/2024 3:10 PM EDT Office Visit Urogynecology [facility] [address] [facility] [place] [phone] Quincy Garcia MD [address] [place] [address] 10/05/2024 1:30 PM EDT Office Visit Cardiology, [facility] [address] [place] [phone] Charles Ortega, [address] [place] [address] 12/30/2024 12:40 PM EDT Office Visit Family [address] [place] [phone] Irene Bowens MD [address] [place] [address] [place] [phone] Scheduled Orders Name Type Priority Associated Diagnoses Orde r Schedule RETINA SCAN DIAGNOSTIC IMAGE, POSTERIOR Procedures Routine 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 Ordered: 06/26/2024 Health Maintenance Due Date Last Done Comments Adult Wellness Visit 02/06/2018 02/06/2017 Depression Screening 07/17/2022 07/17/2021 COVID-19 Vaccine ( season) 2023 02/05/2022, 08/02/2021, 02/28/2021, Additional history exists Influenza Vaccine (FLU shot) (#1) 2023 04/19/2023, 01/30/2022, 12/28/2020, Additional history exists Albumin/Creatinine Ratio 02/13/2024 023, 03/21/2022, 04/19/2021, Additional history exists HbA1c 04/26/2024 04/26/2023, 03/02, 04/19/2021, Additional history exists CKD PHOS USE SMARTSET 27862 06/26/2024 03/10/2023, 04/19/2021, 11/27/2019, Additional history exists DXA Scan 07/18/2024 07/18/2022, 06/30, 12/22/2019, Additional history exists GFR 12/26/2024 06/25/2024, 03/0 11/2024, 02/17/2024, Additional history exists CKD HGB USE SMARTSET 30787 02/16/202502/16, 02/17/2024, 06/27/2023, Additional history exists TSH [...] D LEVEL ONCE IN A LIFETIME-USE SMARTSET# [id number] Completed 06/27/2023, 11/06/2021, 12/28/2019, Additional history exists [...] this encounter Medical Devices Implanted Type Area Cage Manager Device Identifier Shelf Expiration Date Model / Serial / Lot Lens Intraoc 21.5 - [id number] - [id number] Implanted:Qty: 1 on 05/12/2019 by Yury Brady MD at OR [facility] Right: Eye [employer] 12/30/2023 [id number] / [id number] / [id number] Lens Intraoc 22.5 - [id number] - [id number] Implanted:Qty: 1 on 04/05/2020 by Yury Brady MD at OR [facility] Left: Eye [employer] 09/28/2024 [id number] / [id number] / [id number] documented as of this encounter Visit Diagnoses Diagnosis Hypertensive kidney disease with stage 3a chronic kidney disease- Primary Atherosclerosis of [place] coronary artery of [place] heart without angina pectoris Dyslipidemia, goal LDL below 70 Other and unspecified hyperlipidemia History of pulmonary embolism Personal history of pulmonary embolism Tachy-chintan syndrome (HCC) Sinoatrial node dysfunction S/P placement of cardiac pacemaker Cardiac pacemaker in situ Arthralgia of right hip Gastro-esophageal reflux disease with esophagitis, without bleeding Sinus tachycardia Other specified cardiac dysrhythmias Coronary artery disease involving [place] coronary artery of [place] heart without angina pectoris Presence of cardiac pacemaker Cardiac pacemaker in situ Palpitations HTN, goal below 140/90 Unspecified essential hypertension Hypertensive kidney disease with stage 3a chronic kidney disease- Primary Dyslipidemia, goal LDL below 70 Other and unspecified hyperlipidemia Gastro-esophageal reflux disease with esophagitis, without bleeding Atherosclerosis of [place] coronary artery of [place] heart without angina pectoris Advanced care planning/counseling discussion- Primary Other specified counseling Hypertensive kidney disease with stage 3a chronic kidney disease (HCC) History of [place] (myocardial infarction) Old myocardial infarction Tachy-chintan syndrome [...] 3a chronic kidney disease- Primary Atherosclerosis of [place] coronary artery of [place] heart without angina pectoris Migraine without aura and without status migrainosus, not intractable Migraine without aura, without mention of intractable migraine without mention of status migrainosus 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- Primary documented in this encounter Administered Medications Active Administered Medications - up to 3 most recent administrations Medication Order MAR Action Action Date Dose Rate Site Faricimab-svoa (Vabysmo) prefilled syringe inj 6 mg 6 mg, Intravitreal, PRN Other, Starting on Sat03/18/24 at 1437, Until Karime 03/18/25 at 1436, For 365 days, Each syringe should only be used for the treatment of a single eye. Only use the provided injection filter needle for the administration. Syringe must be stored under refrigeration and away from light. Syringe must reach room temperature prior to administration. 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 Given 06/26/2024 11:46 AM EDT 1.5 mg Eye Right Given 05/07/2024 3:13 PM EST 1.5 mg Ey e Right Given 03/18/2024 2:28 PM EST 1.5 mg Ey e Right documented in this encounter Additional Health Concerns Infection Onset Date Last Indicated Resolved Time RSV 06/05/2024 06/05/2024 documented as of this encounter Advance Directives Documents on File Type Date Recorded 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
--- OUTSIDE RECORDS SUMMARY | 2024-07-23 23:59 | External Medical Summary | Summary of Care ---
Author Name Unknown Organization [facility] Address [address] [place] [place] [address] Phone [phone] Care Team Providers Care Electrical Construction Project Manager Name Role Phone Rafa Bergman MD Primary Care Provide r Reason for Visit * Reason Comments Return Neuro Migraine Headache Encounter Details Date Type Department Care Team (Late st Contact Info) Description 07/06/2024 8:40 AM EDT Office Visit Neurology [facility] [address] [facility] [place] [address] Alfonso Manning MD [address] [place] [address] Migraine without aura and without status migrainosus, not intractable* Allergies Active Allergy Reactions Criticality Noted Date Comments Colchicine Diarrhea 06/16/2018 Daptomycin 01/05/2015 Shortness of breath Imipenem Edema airway High 01/05/2015 Metoprolol Low 01/23/2021 Other reaction(s): fatigue Zoledronic Acid 04/24/2012 Myalgias, fever, chills, vomiting x 2 days Sulfa Antibiotics 12/22/2002 Bactrim--itchy all over, eyes swollen documented as of this encounter (statuses as of 07/06/2024) Medications ASPIRIN 81 MG PO TABS Take [...] goal LDL below 70,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 06/26/19 25 Active Gabapentin 100 MG Oral Capsule (Neurontin) Take 1 Capsule by mouth 3 times a day. 90 Capsule 06/17/19 25 Active Additional Information Patient taking differently:100 mg Oral TID(Non-Specified),Takes twice daily in the morning and at bedtime, Reported on 07/06/2024 Nortriptyline HCl 10 MG Oral Capsule (Pamelor) One capsule at bedtime every other night for 2 weeks then one orally at bedtime every night 30 Capsule 5 07/07/19 25 Active Gabapentin 100 MG Oral Capsule (Neurontin) Take one capsule by mouth three times a day 270 Capsule 1 07/02/19 25 025 Discontin ued(Medic ation List Clean Up) [...] as of this encounter (statuses as of 07/06/2024) Active Problems Problem Noted Date Diagnosed Date [...] 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 History of MD (myocardial infarction) 11/27/2022 Assessment & Plan (04/16/2024 [...] S/P angioplasty with stent 11/27/2018 Atherosclerosis of duckwater co ronary artery of duckwater heart without angina pectoris 07/08/2018 Overview (11/21/2023): [...] as of this encounter (statuses as of 07/06/2024) Resolved Problems Problem Noted Date Diagnosed Date Resolved Date Purulent endophthalmitis of right eye 01/03/2023 11/08/2023 Other pulmonary embolism wit h acute cor pulmonale 10/01/2022 04/26/2023 Overview (04/26/2023): history Medical home patient encounter 09/13/2022 11/08/2023 Atherosclerosis of coronary artery of duckwater heart without angina pectoris 09/10/2022 10/31/2022 Hypothyroidism [...] filter 02/28/2015 Atherosclerotic heart diseas e of duckwater coronary artery with angina pectoris 11/2018 CKD (chronic kidney disease) stage 2, GFR 60-89 ml/min 03/12/2019 documented as of this encounter (statuses as of 07/06/2024) Immunizations Name Administration Dates Next Due COVID-19 [...] No 02/06/2024 Does the household have a [facility] source of income? 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 Not on file Not on file documented as of this encounter Last Filed Vital Signs Vital Sign Reading Time Taken Comments Blood Pressure 194/70 07/06/2024 8:41 AM EDT Pulse 79 07/06/2024 8:41 AM EDT Temperature 36.8 °C (98.3 °F) 07/06/2024 8:41 AM ED T Respiratory Rate 20 07/06/2024 8:41 AM EDT Oxygen Saturation 91% 07/06/2024 8:41 AM EDT Inhaled Oxygen Concentration - - Weight 79.2 kg (174 lb 9.6 oz) 07/06/2024 8:41 A M EDT Height - - Body Mass Index 30.93 02/24/2024 12:52 PM EST documented in this encounter Progress Notes * Alfonso Manning MD - 07/06/2024 10:20 AM EDT CLINIC NOTES Neurology [facility] [place] [address] [place] [address] Rehana Moran [id number] NEUROLOGY OUTPATIENT NOTE 07/06/2024 HISTORY: Rehana is 79 years old and for the past 3 years has converted her relatively low frequency to tolerable frequency migraine headaches do an chronic daily headache pattern. For years the diagnosis of migraine was there remain all of her headaches were felt to be sinus related and she would respond to steroids and antibiotics to some degree but the response was never maintained and she then would go into a series of headaches again. She does have 2 children with migraines who have subsequently outgrown them but she now in later life has developed a chronic daily headaches syndrome Unfortunately this has coupled with a lot of drug intolerance issues. She is on incredibly low-doseInderal which is all she can tolerate and I attempted to get her on a reasonable dose of [id number] mg 3 times a day but she developed leg edema some lassitude and we cut the dose to 100 mg twicea day which helps some of her nocturnal restless leg issues but has not done much with the headaches We have had a series of e-mail exchanges and medication recommendations since I last saw her in February 23 of last year and I refer the reader to those exchanges Her health otherwise has been stable she is tolerating the medications right now but the dosage is very very low One of my goals was to try to get her onto 1 of the calcitonin gene receptor antagonists but her insurance will never cover these until we go through a few more drug manipulations I considered some low-dose tricyclic antidepressants last time in the form of Pamelor and I am going to reluctantly try these at night with a very slow buildup added to her Pamelor to see if this makes a difference If we do want and a calcitonin gene receptor antagonists I think I will go with the oral agent as her side effects to medications can be dramatic and with the injectable form we can not really do anything except wait for the effect to pass off in a month or so whereas oral agents would be more simple to manipulate Past Medical History: Diagnosis Date Allergic rhinitis 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 ([facility]) Benign neoplasm of skin Benign paroxysmal vertigo 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 10/28/2013 Chronic sinusitis 10/28/2013 CKD (chronic kidney disease) stage 2, GFR 60-89 ml/min Degenerative disc disease, cervical 05/18/2016 Derangement of meniscus right knee Diverticulitis of colon DVT (deep venous thrombosis) ([facility]) 02/28/2015 Dyslipidemia, goal LDL below [...] rt shoulder NSTEMI (non-ST elevated myocardial infarction) ([facility]) 04/28/2018 [facility], cathed and LAD stented with AMIE, [...] to hypertension, elevated TSH, small pericardial effusion [facility] Pericarditis as complication of acute myocardial infarction (HCC) 05/15/2018 [facility] colchicine not tolerated well. Pericarditis as complication of acute myocardial infarction (HCC) 06/05/2018 [facility] steroids Postmenopausal atrophic vaginitis 09/15/2013 Presence of vena cava filter PROLAPSE OF VAGINAL WALL 10/28/2000 Pulmonary embolism and infarction (HCC) 08/30/2009 Pulmonary embolus ([facility]) 1999 Purulent endophthalmitis of right eye 01/03/2023 [...] knee ARTHROPLASTY KNEE TOTAL 11/11/2014 left knee- [facility]- Dr. Lopez CARDIAC CATH-CARDIOLOGY ONLY 04/28/2018 AMIE to LAD, PCI to RCA COLONOSCOPY 09/2004 diverticulosis COLONOSCOPY, DIAGNOSTIC (RECTUM) 02/27/2017 diverticulosis, repeat 5 yrs/COLONOSCOPY FLEXIBLE PROXIMAL DIAGNOSTIC performed by Ford Pantoja MD at ENDOSCOPY [facility] CTA CHEST NON-CORONARY W CONTRAST 11/13/2018 no [...] Tinsley IR FILTER PLACEMENT VENA CAVA 10/2014 [facility] MISCELLANEOUS ORDER ([facility] ONLY) 12/02/2013-12/02/2014 LUCENTIS 0.5MG CONSENT SIGNED OD; DR LAUREANO MATHEWSCELLANEOUS ORDER ([facility] ONLY) Right 01/12/2015-01/13/2016 LUCENTIS 0.5MG [...] performed by Brian Gagnon DO at OR [facility] REMOVAL OF TONSILS, UNDER AGE 12 REMOVE CATARACT, INSERT LENS PROSTH Right 05/12/2019 right EXTRACAPSULAR CATARACT REMOVAL WITH INTRAOCULAR LENS performed by Yury Brady MD at OR [facility] REMOVE CATARACT, INSERT LENS PROSTH Left 04/05/2020 left EXTRACAPSULAR CATARACT REMOVAL WITH INTRAOCULAR LENS performed by Yury Brady MD at OR [facility] REPAIR BLADDER & VAGINA, CYSTOCELE 01/2001 Dr [...] level: Not on file Occupational History Occupation: [employer] 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 No known chemical/dust/absestos exposure. Social Needs Financial Resource Strain: Low Risk (02/06/2024) Financial Resource Strain Do you have any trouble paying for your medications, or do you think you might in the future? (Adult - for ages 18 years and over): No Does your family have trouble paying for medicine? (Household - for ages 0-17 years): Not on file Food Insecurity: No Food Insecurity (02/06/2024) Food Insecurity Worried About Running Out of Food in the Last Year: Never true Ran Out of Food in the Last Year: Never true Do you need food for this week? (Adult - for ages 18 years and over): No Transportation Needs: No Transportation Needs (02/06/2024) Transportation Needs Do you have trouble getting a ride to medical visits or work? (Adult - for ages 18 years and over):Not on file Does your family have a hard time getting a ride to doctors’ visits? (Household - for ages 0-17 years): Not on file Has lack of transportation kept you from medical appointments, meetings, work, or from getting things needed for daily living? Check all that apply. (Adult - for ages 18 years and over): No Do you (or your family) have trouble finding or paying for a ride (transportation)? (Household - for ages 0-17 years): Not on file Social Connections: Socially Integrated (02/06/2024) Social Connections How often do you feel lonely or isolated from those around you? (Adult - for ages 18 years and over): Never Housing Stability: Low Risk (02/06/2024) Housing Stability Do you currently live in a senior care or have no steady place to sleep at night? (Adult - for ages 18 years and over): No Do you think you are at risk of becoming homeless? (Adult - for ages 18 years and over): Not on file Does your family worry about paying for your home or becoming homeless? (Household - for ages 0-17 years): Not on file Are you homeless or worried that you might be in the future? (Adult - for ages 18 years and over): No Are you (or your family) homeless or worried that you might be in the future? (Household - for ages0-17 years): Not on file Family History Problem Relation Name Age of [...] detachments or blindness No Past Hx None breast/regulatory coordinator/colon Other (Other) None no hx of skin cancer for pt parents Current Outpatient Medications Medication Sig Dispense Refill [...] pain. 120 Capsule 0 Cholecalciferol 50 MCG (1999 [place]) Oral Capsule Take 1 Capsule by [...] breakfast or other meds) 90 Tablet 2 Vitamin B-12 1000 MCG Oral Tablet (Cyanocobalamin) Take 1 Tablet by mouth in the morning. In the morning.. 90 Tablet 1 Ondansetron HCl 4 MG Oral Tablet Take 1 Tablet by mouth every 8 hours as needed for Nausea. 30 Tablet 0 Famotidine 20 MG Oral Tablet (Pepcid) Take 1 Tablet by mouth at bedtime. 90 Tablet 3 dilTIAZem HCl ER 360 MG Oral Tablet Extended Release 24 Hour Take 1 Tablet by mouth in the morning.(Patient taking differently: Take 1 Tablet by mouth in the morning. Takes in the evening .) 90 Tablet 2 Riboflavin 400 MG Oral Tablet Take 1 [...] at bedtime every night 30 Capsule 5 Current Facility-Administered Medications Medication Dose Route Frequency Provider Last Rate Last Admin ROPivacaine (Naropin) inj 1.5 mg 1.5 mg Injection PRN 1.5 mg at 06/26/24 1146 Aflibercept (Eylea) intraviteal prefilled syringe 2 mg 2 mg Intravitreal PRN 2 mg at 02/04/24 1138 Faricimab-svoa (Vabysmo) prefilled syringe inj 6 mg 6 mg Intravitreal PRN 6 mg at 06/26/24 1146 Review of patient's allergies indicates: Allergen Reactions Imipenem Edema airway Colchicine Diarrhea Daptomycin Shortness of breath Reclast [Zoledronic Acid] Myalgias, fever, chills, vomiting x 2 days Sulfa Antibiotics Bactrim--itchy all over, eyes swollen Metoprolol Other reaction(s): fatigue REVIEW OF SYSTEMS: With the exception of historical items included in the history of present illness above, a 12-point systems review was normal. PHYSICAL EXAM: BP 194/70 | Pulse 79 | Temp 36.8 °C (98.3 °F) (Skin) | Resp 20 | Wt 79.2 kg (174 lb 9.6 oz) | SpO2 91% | BMI 30.93 kg/m² | BSA 1.88 m² Exam dated very superficial fashion was quite normal she was awake alert and oriented 3 spheres with normal speech normal gait station coordination allowing for some arthritic changes in her hips andknees without any spasticity or ataxia strength appeared to be good and sensation was grossly intact LABORATORY: No labs are needed IMAGING: Imaging studies of the brain have shown no evidence for other than some small vessel disease which would be typical for her age ASSESSMENT AND PLAN: Transformed longstanding migraine into chronic daily headaches syndrome in an elderly woman who unfortunately is not a candidate for triptans and who has not responded to standard but very low doses of traditional preventative medications to date. I am going to try her on a little bit of Pamelor starting at 10 mg every other night for 2 weeks and then every night we are goingto ask her to check in with me and I warned her about dry mouth the confusion the slowing of the urinary stream perhaps constipation issues and invited her to get back to me should these develop and we can discuss other options I wish we could get approval for oral agents such as Ubrelvy or Nurtec in least so how she would respond to 1 of these medications for a severe headache and consider an alternate day treatment program for prevention She will be seen by telephonic visit 3 months and will be talking by e-mail between now and then I am sure I spent 25 minutes reviewing her chart discussing options and coming up with the plan for management and follow-up as outlined above The above note was generated utilizing voice recognition technology may have spelling errors punctuation errors pronoun usage errors and syntax errors Alfonso Manning MD documented in this encounter Nursing Notes * Irene Lawrence LPN - 07/06/2024 8:40 AM EDT Chief Complaint Patient presents with Return Neuro Migraine Headache documented in this encounter Plan of Treatment Upcoming Encounters Date Type Department Care Team (Late st Contact Info) Description 07/14/2024 2:30 PM EDT Cardiac Studies Cardiology [address] [place] [address] [facility] [address] [place] [address] 07/21/2024 10:00 AM EDT Imaging Radiology [facility] [address] [place] [phone] 07/28/2024 10:00 AM EDT Home Visit [facility]one at [facility] [address] [place] [address] Leon Live PA-C [address] [place] [address] 08/11/2024 1:45 PM EDT Office Visit Ophthalmology, [facility] [address] [place] [phone] Pedro Tinsley DO [address] [place] [address] Nurse Roscoe Leyva [address] [place], [place] [address] Photographer Justen Leyva [address] [place] [address] 08/18/2024 10:20 AM EDT Laboratory Laboratory [address] [place] [phone] [place] [address] 08/21/2024 3:00 PM EDT Office Visit Rheumatology [address] [place] [phone] José Miguel Cullen CRNP [address] [place] [address] [place] [address] 08/25/2024 3:30 PM EDT Office Visit Hematology/Oncology [facility] [address] [place] [phone] Arianna Szymanski MD [address] [place] [address] 09/11/2024 12:50 PM EDT Office Visit Dermatology, Jesu Wilson [address] [facility] [address] [place] [address] Dasha Nelson PA-C [address] [place] [address] 09/29/2024 3:10 PM EDT Office Visit Urogynecology Stephany Kiko [address] [place] [address] Quincy Garcia MD [address] [place] [address] 10/05/2024 1:30 PM EDT Office Visit Cardiology, [facility] [address] [place] [phone] Charles Ortega, [address] [place] [address] 10/05/2024 2:15 PM EDT Telemedicine Neurology [facility] [address] [facility] [place] [address] Alfonso Manning MD [address] [facility] [place] [address] 12/30/2024 12:40 PM EDT Office Visit Family Medicine [address] [phone] Irene Bowens MD [address] [place] [address] [place] [phone] Health Maintenance Due Date Last Done Comments Adult Wellness Visit 02/06/2018 02/06/2017 Depression Screening 07/17/2022 07/17/2021 COVID-19 Vaccine ( season) 2023 02/05/2022, 08/02/2021, 02/28/2021, Additional history exists Albumin/Creatinine Ratio 02/13/2024 023, 03/21/2022, 04/19/2021, Additional history exists HbA1c 04/26/2024 04/26/2023, 03/02, 04/19/2021, Additional history exists CKD PHOS USE SMARTSET 94297 06/26/202405/31, 04/19/2021, 11/27/2019, Additional history exists DXA Scan 07/18/2024 07/18/2022, 06/30, 12/22/2019, Additional history exists Influenza Vaccine (FLU shot) (Season Ended) 2024 04/19/2023, 01/30/2022, 12/28/2020, Additional history exists GFR 12/26/2024 06/25/2024, 03/0 11/2024, 02/17/2024, Additional history exists CKD HGB USE SMARTSET 31623 02/16/202502/16, 02/17/2024, 06/27/2023, Additional history exists TSH [...] D LEVEL ONCE IN A LIFETIME-USE SMARTSET# [id number] Completed 06/27/2023, 11/06/2021, 12/28/2019, Additional history exists [...] this encounter Medical Devices Implanted Type Area Payroll Accounting Clerk Device Identifier Shelf Expiration Date Model / Serial / Lot Lens Intraoc 21.5 - [id number] - [id number] Implanted:Qty: 1 on 05/12/2019 by Yury Brady MD at OR [facility] Right: Eye [employer] 12/30/2023 [id number] / [id number] / [id number] Lens Intraoc 22.5 - [id number] - [id number] Implanted:Qty: 1 on 04/05/2020 by Yury Brady MD at OR [facility] Left: Eye [employer] 09/28/2024 [id number] / [id number] / [id number] documented as of this encounter Visit Diagnoses Diagnosis Hypertensive kidney disease with stage 3a chronic kidney disease- Primary Atherosclerosis of duckwater coronary artery of duckwater heart without angina pectoris Dyslipidemia, goal LDL below 70 Other and unspecified hyperlipidemia History of pulmonary embolism Personal history of pulmonary embolism Tachy-chintan syndrome (HCC) Sinoatrial node dysfunction S/P placement of cardiac pacemaker Cardiac pacemaker in situ Arthralgia of right hip Gastro-esophageal reflux disease with esophagitis, without bleeding Sinus tachycardia Other specified cardiac dysrhythmias Coronary artery disease involving duckwater coronary artery of duckwater heart without angina pectoris Presence of cardiac pacemaker Cardiac pacemaker in situ Palpitations HTN, goal below 140/90 Unspecified essential hypertension Hypertensive kidney disease with stage 3a chronic kidney disease- Primary Dyslipidemia, goal LDL below 70 Other and unspecified hyperlipidemia Gastro-esophageal reflux disease with esophagitis, without bleeding Atherosclerosis of duckwater coronary artery of duckwater heart without angina pectoris Advanced care planning/counseling discussion- Primary Other specified counseling Hypertensive kidney disease with stage 3a chronic kidney disease (HCC) History of MD (myocardial infarction) Old myocardial infarction Tachy-chintan syndrome [...] 3a chronic kidney disease- Primary Atherosclerosis of duckwater coronary artery of duckwater heart without angina pectoris Migraine without aura and without status migrainosus, not intractable Migraine without aura, without mention of intractable migraine without mention of status migrainosus Migraine without aura and without status migrainosus, not intractable- Primary Migraine without aura, without mention of intractable migraine without mention of status migrainosus documented in this encounter Advance Directives Documents on File Type Date Recorded Patient Community Health Navigator Expl anation Advance Directives and Living Will [...] Agen t (per Health Care Power of Color Separation Photographer document) Guille Urban Adult Child Health Care Agen t (per Health Care Power of Color Separation Photographer document) [email or web address] Care Teams Electrical Construction Project Manager Relationship Specialty Start Date End Date Rafa Bergman MD [address] [place] [address] [place] [address] PCP - General Family Medicine 04/19/21 documented as of this encounter"
--- OUTSIDE RECORDS SUMMARY | 2024-07-23 23:59 | External Medical Summary | Summary of Care ---
Author Name Unknown Organization [facility] Address [address] [facility] [place] [address] Phone [phone] Care Team Providers Care Field Cane Scale Clerk Name Role Phone Rafa Bergman MD Primary Care Provide r Reason for Visit * Reason Onset Date Comments Appointment 07/04/2024 Please reach out and reschedule pt's dexa Encounter Details Date Type Department Care Team (Late st Contact Info) Description 07/04/2024 Telephone Radiology [facility] 1st Floor, [place] [address] [place] [phone] Flower Hoover Appointment (Please reach out and reschedu... Allergies Active Allergy Reactions Criticality Noted Date [...] goal LDL below 70,Coronary artery disease involving nondalton coronary artery of nondalton heart without angina pectoris TAKE ONE TABLET [...] tachycardia,Tach y-chintan syndrome (HCC),Coronary artery disease involving nondalton coronary artery of nondalton heart without angina pectoris,Presenc e of cardiac pacemaker,Palpit ations,HTN, goal below 140/90 Take 0.5 Tablets by mouth at bedtime. 06/26/19 25 Active Gabapentin 100 MG Oral Capsule (Neurontin) Take 1 Capsule by mouth 3 times a day. 90 Capsule 06/17/19 25 Active Additional Information Patient taking differently:100 mg Oral TID(Non-Specified),Takes twice daily in the morning and at bedtime, Reported on 07/06/2024 Vitamin B-12 1000 MCG Oral Tablet (Cyanocobalamin) Take 1 Tablet by mouth in the morning. In the morning.. 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 She is rescheduled to beginning of July 2024 next opening wasn't until December 2024 * Telephone Encounter - Delfina Johnson, RT - 07/04/2024 3:09 PM EDT Please reach out to this pt that you scheduled for dexa scan. She has pacemaker and we cannot do her dexa scan until the machine is fixed. The fix is tentatively scheduled for end of June. Please schedule pt for sometime in July 2024. documented in this encounter Plan of Treatment Upcoming Encounters Date Type Department Care Team (Late st Contact Info) Description 07/14/2024 2:30 PM EDT Cardiac Studies Cardiology [address] [place] [address] [facility] Justen Hoover [address] [place] [address] 07/28/2024 10:00 AM EDT Home Visit ose[facility] at [facility] [address] [place] [address] Leon Live PA-C [address] [place] [address] 07/30/2024 1:30 PM EDT Imaging Radiology [facility] [address] [place] [phone] 08/11/2024 1:45 PM EDT Office Visit Ophthalmology, [facility] [address] [place] [phone] Pedro Tinsley DO [address] [place] [address] Nurse Roscoe Leyva [address] [place] [address] Photographer Justen Leyva [address] [place] [address] 08/18/2024 10:20 AM EDT Laboratory Laboratory [address] [place] [phone] [place] [address] 08/25/2024 3:30 PM EDT Office Visit Hematology/Oncology [facility] [address] [place] [phone] Arianna Szymanski MD [address] [place] [address] 09/07/2024 3:30 PM EDT Office Visit Rheumatology [address] [place] [phone] José Miguel Cullen CRNP [address] [place] [address] [place] [address] 09/11/2024 12:50 PM EDT Office Visit Dermatology, Jesu Wilson 27 [facility] [address] [place] [address] Dasha Nelson PADelaneyC [address] [place] [phone] 09/29/2024 3:10 PM EDT Office Visit Urogynecology [facility] [address] [place] [address] Quincy Garcia MD [address] [place] [address] 10/05/2024 1:30 PM EDT Office Visit Cardiology, [facility] [address] [place] [phone] Charles Ortega O, DO [address] [place] [address] 10/05/2024 2:15 PM EDT Telemedicine Neurology [facility] [place] [address] [facility] [place] [address] Alfonso Manning MD 200 [facility] [place] [address] 12/30/2024 12:40 PM EDT Office Visit Family [address] [place] [phone] Irene Bowens MD [address] [place] [address] [place] [phone] Health Maintenance Due Date Last Done Comments Adult Wellness Visit 02/06/2018 02/06/2017 Depression Screening 07/17/2022 07/17/2021 COVID-19 Vaccine ( season) 2023 02/05/2022, 08/02/2021, 02/28/2021, Additional history exists Albumin/Creatinine Ratio 02/13/2024 023, 03/21/2022, 04/19/2021, Additional history exists HbA1c 04/26/2024 04/26/2023, 03/02, 04/19/2021, Additional history exists CKD PHOS USE SMARTSET 45069 06/26/202405/31, 04/19/2021, 11/27/2019, Additional history exists DXA Scan 07/18/2024 07/18/2022, 06/30, 12/22/2019, Additional history exists Influenza Vaccine (FLU shot) (Season Ended) 2024 04/19/2023, 01/30/2022, 12/28/2020, Additional history exists GFR 12/26/2024 06/25/2024, 03/0 11/2024, 02/17/2024, Additional history exists CKD HGB USE SMARTSET 72703 02/16/202502/16, 02/17/2024, 06/27/2023, Additional history exists TSH [...] D LEVEL ONCE IN A LIFETIME-USE SMARTSET# 95827 Completed 06/27/2023, 11/06/2021, 12/28/2019, Additional history exists [...] this encounter Medical Devices Implanted Type Area Storm Door Maker Device Identifier Shelf Expiration Date Model / Serial / Lot Lens Intraoc 21.5 - [id number] - [id number] Implanted:Qty: 1 on 05/12/2019 by Yury Brady MD at OR [facility] Right: Eye BAUSCH 12/30/2023 [id number] / [id number] / [id number] Lens Intraoc 22.5 - [id number] - [id number] Implanted:Qty: 1 on 04/05/2020 by Yury Brady MD at OR [facility] Left: Eye BAUSCH 09/28/2024 [id number] / [id number] / [id number] documented as of this encounter Advance Directives Documents on File Type Date Recorded Patient Drug And Alcohol Counsellor Expl anation Advance Directives and Living Will [...] Agen t (per Health Care Power of Knurling Machine Operator document) Guille Isaacncer Adult Child Health Care Agen t (per Health Care Power of Knurling Machine Operator document) [email or web address] om Care Teams Field Cane Scale Clerk Relationship Specialty Start Date End Date Rafa Bergman MD [address] [place] [address] [place] [address] PCP - General Family Medicine 04/19/21 documented as of this encounter
--- OUTSIDE RECORDS SUMMARY | 2024-07-23 23:59 | External Medical Summary | Summary of Care ---
Author Name Unknown Organization [facility] Address [address] [place] [address] Phone [phone] Care Team Providers Care Impact Hammer Operator Name Role Phone Rafa Bergman MD Primary Care Provide r Encounter Details Date Type Department Care Team (Late st Contact Info) Description 07/01/2024 Refill Neurology [facility] Raina [place] [address] [place] [address] Shirley Robertson MD [address] [place] [address] Allergies Active Allergy Reactions Criticality Noted Date Comments Colchicine Diarrhea 06/16/2018 Daptomycin 01/05/2015 Shortness of breath Imipenem Edema airway High 01/05/2015 Metoprolol Low 01/23/2021 Other reaction(s): fatigue Zoledronic Acid 04/24/2012 Myalgias, fever, chills, vomiting x 2 days Sulfa Antibiotics 12/22/2002 Bactrim--itchy all over, eyes swollen documented as of this encounter (statuses as of 07/01/2024) Medications ASPIRIN 81 MG PO TABS Take by mouth at bedtime. Active Acetaminophen 500 MG Oral Tablet Take 2 Tablets by mouth every 6 hours as needed for Pain. Active CoQ10 100 MG Oral Capsule Take by mouth. Active Loperamide HCl 2 MG Oral Capsule [...] 1 Tablet before bedtime. 180 Tablet 3 5 2:50 PM EDT 01/09/20 24 Active Pantoprazole Sodium 40 MG Oral Tablet Delayed Release (Protonix) Take 1 Tablet by mouth in the morning and 1 Tablet in the evening. 90 Tablet 3 5 8:22 AM EST 01/09/20 24 Active Rosuvastatin Calcium 5 MG Oral Tablet (Crestor)Indicat ions:Dyslipidemi a, goal LDL below 70,Coronary artery disease involving susanville coronary artery of susanville heart without angina pectoris TAKE ONE TABLET BY MOUTH IN THE MORNING 90 Tablet 3 5 7:44 AM EST 01/10/20 24 Active Levothyroxine Sodium 125 MCG Oral Tablet (Levoxyl)Indicat ions:Hypothyroid ism (acquired) Take 1 Tablet by mouth daily first thing in the morning. (at least 30 min prior to breakfast or other meds) 90 Tablet 2 5 11:01 AM EST 01/10/20 24 Active Vitamin B-12 1000 MCG Oral Tablet (Cyanocobalamin) Take 1 Tablet by mouth in the morning. In the morning.. 90 Tablet 1 5 5:36 PM EST 01/10/20 24 Active Ondansetron HCl 4 MG Oral TabletIndication s:Nausea Take 1 Tablet by mouth every 8 hours as needed for Nausea. 30 Tablet 01/17/20 24 Active Famotidine 20 MG Oral Tablet (Pepcid) Take 1 Tablet by mouth at bedtime. 90 Tablet 3 5 9:29 AM EDT 01/24/20 24 Active dilTIAZem HCl ER 360 MG Oral Tablet Extended Release 24 HourIndications: HTN, goal below 140/90,Tachy-bra dy syndrome (HCC) Take 1 Tablet by mouth in the morning. 90 Tablet 2 5 11:42 AM EST 03/27/20 24 Active Riboflavin 400 MG Oral Tablet Take 1 Tablet by mouth in the morning. 90 Tablet 3 5 1:21 PM EST 04/13/19 25 Active Magnesium Oxide -Mg Supplement 400 MG Oral Capsule (Magnesium Extra Strength) Take 1 capsule by mouth in the morning. 90 Capsule 3 5 1:21 PM EST 04/13/19 25 Active Allopurinol 300 MG Oral Tablet (Zyloprim) TAKE 1 & 1/2 TABLETS BY MOUTH EVERY DAY 135 Tablet 5 5:55 PM EST 05/11/19 25 Active Spironolactone 25 MG Oral Tablet (Aldactone) Take 0.5 Tablets by mouth in the morning. 06/24/19 25 Active Propranolol HCl 10 MG Oral Tablet (Inderal)Indicat ions:Sinus tachycardia,Tach y-chintan syndrome (HCC),Coronary artery disease involving susanville coronary artery of sus[place] heart without angina pectoris,Presenc e of cardiac pacemaker,Palpit ations,HTN, goal below 140/90 Take 0.5 Tablets by mouth at bedtime. 06/26/19 25 Active Gabapentin 100 MG Oral Capsule (Neurontin) Take 1 Capsule by mouth 3 times a day. 90 Capsule 06/17/19 25 Active Gabapentin 100 MG Oral Capsule (Neurontin) Take one cap three times a day 270 Capsule 1 07/02/19 25 Active Gabapentin 100 MG Oral Capsule (Neurontin) Take one cap three times a day 90 Capsule 1 03/18 025 Discontinued Hospital, Clinic, or Other Facility Administered [...] as of this encounter (statuses as of 07/01/2024) Active Problems Problem Noted Date Diagnosed Date [...] S/P angioplasty with stent 11/27/2018 Atherosclerosis of sus[place]ville co ronary artery of sus[place] heart without angina pectoris 07/08/2018 Overview (11/21/2023): history of NSTEMI status post AMIE to LAD (culprit) and RCA, 04/28/2018 Assessment & Plan (06/23/2024 3:37 PM EDT): Follows with cardiology Continue statin Assessment & Plan (01/24/2024 4:40 PM EDT): [facility]iac rehab at [facility] 2x week Assessment & Plan (11/21/2023 [...] as of this encounter (statuses as of 07/01/2024) Resolved Problems Problem Noted Date Diagnosed Date Resolved Date Purulent endophthalmitis of right eye 01/03/2023 11/08/2023 Other pulmonary embolism wit h acute cor pulmonale 10/01/2022 04/26/2023 Overview (04/26/2023): history Medical home patient encounter 09/13/2022 11/08/2023 Atherosclerosis of coronary artery of [place] heart without angina pectoris 09/10/2022 10/31/2022 Hypothyroidism [...] filter 02/28/2015 Atherosclerotic heart diseas e of [place] coronary artery with angina pectoris 11/2018 CKD (chronic kidney disease) stage 2, GFR 60-89 ml/min 03/12/2019 documented as of this encounter (statuses as of 07/01/2024) Immunizations Name Administration Dates Next Due COVID-19 [...] 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 Please review and approve if appropriate. Pending Prescriptions: Disp Refills Gabapentin 100 MG Oral Capsule (Neurontin)270 Ca*1 Sig: Take one capsule by mouth three times a day Last Visit: 02/24/2024 (in office), Visit date not found (telemedicine) 07/06/2024 If no future appointments scheduled, and last [...] 02:53 PM HGBA1C 5.7 08/27/2008 04:40 PM Thank you, Erasmo Brewster [facility] Presentation Manager III [facility] 07/01/2024, 10:25 AM documented in this encounter Plan of Treatment Upcoming Encounters Date Type Department Care Team (Surya Contact Info) Description 07/06/2024 8:40 AM EDT Office Visit Neurology [facility] [address] [place] [address] Shirley Robertson MD [address] [place] [address] 07/06/2024 11:00 AM EDT [facility] Visit [facility], [facility] [address] [place] [address] Leon Live PA-C [address] [place] [address] 07/14/2024 2:30 PM EDT Cardiac Studies Cardiology [address] [place] [address] [facility] [address] [place] [address] 07/21/2024 10:00 AM EDT Imaging Radiology [facility] [address] [place] [phone] 07/28/2024 10:00 AM EDT [facility] Visit [facility] [place], [facility] [address] [place] [address] Leon Live PA-C [address] [place] [address] 08/11/2024 1:45 PM EDT Office Visit Ophthalmology, [facility] [address] [place] [phone] Pedro Tinsley DO [address] [place] [address] Nurse Roscoe Leyvas [address] [place] [address] Photographer Justen Leyva [address] [place] [address] 08/18/2024 10:20 AM EDT Laboratory Laboratory [address] [place] [phone] [place] [address] 08/21/2024 3:00 PM EDT Office Visit Rheumatology [address] [place] [phone] José Miguel Cullen CRNP [address] [place] [address] [place] [address] 08/25/2024 3:30 PM EDT Office Visit Hematology/Oncology [facility] 200 [facility] [place] [phone] Arianna Szymanski MD 200 [facility] [place] [address] 09/11/2024 12:50 PM EDT Office Visit Dermatology, Jesu Wilson [address] [place] [address] Dasha Nelson, PA-C [address] [place] [address] 09/29/2024 3:10 PM EDT Office Visit Urogynecology Stephany Hoover [address] [place] [address] Quincy Garcia MD [address] [place] [address] 10/05/2024 1:30 PM EDT Office Visit Cardiology, Stephany Leyvas [place] [address] [place] [phone] Charles Ortega, DO [address] [place] [address] 12/30/2024 12:40 PM EDT Office Visit Family Medicine [address] [place] [phone] Irene Bowens MD [address] [place] [address] [place] [phone] Health Maintenance Due Date Last Done Comments Adult Wellness Visit 02/06/2018 02/06/2017 Depression Screening 07/17/2022 07/17/2021 COVID-19 Vaccine ( season) 2023 02/05/2022, 08/02/2021, 02/28/2021, Additional history exists Albumin/Creatinine Ratio 02/13/2024 023, 03/21/2022, 04/19/2021, Additional history exists HbA1c 04/26/2024 04/26/2023, 03/02, 04/19/2021, Additional history exists CKD PHOS USE SMARTSET 15794 06/26/202405/31, 04/19/2021, 11/27/2019, Additional history exists DXA Scan 07/18/2024 07/18/2022, 06/30, 12/22/2019, Additional history exists Influenza Vaccine (FLU shot) (Season Ended) 2024 04/19/2023, 01/30/2022, 12/28/2020, Additional history exists GFR 12/26/2024 06/25/2024, 03/0 11/2024, 02/17/2024, Additional history exists CKD HGB USE SMARTSET 87606 02/16/202502/16, 02/17/2024, 06/27/2023, Additional history exists TSH [...] D LEVEL ONCE IN A LIFETIME-USE SMARTSET# 52128 Completed 06/27/2023, 11/06/2021, 12/28/2019, Additional history exists [...] this encounter Medical Devices Implanted Type Area Bread Wrapper Device Identifier Shelf Expiration Date Model / Serial / Lot Lens Intraoc 21.5 - [id number] - [id number] Implanted:Qty: 1 on 05/12/2019 by Yury Brady MD at OR [facility] Right: Eye [employer]CH & [employer]OM[employer] 12/30/2023 [id number] / [id number] / [id number] Lens Intraoc 22.5 - [id number] - [id number] Implanted:Qty: 1 on 04/05/2020 by Yury Brady MD at OR [facility] Left: Eye BAUSCH & LOMB 09/28/2024 [id number] / [id number] / [id number] documented as of this encounter Additional Health Concerns Infection Onset Date Last Indicated Resolved Time RSV 06/05/2024 06/05/2024 documented as of this encounter Advance Directives Documents on File Type Date Recorded Patient Geriatric Aide Expl anation Advance Directives and Living Will [...] Agen t (per Health Care Power of American Indian Policy Specialist document) Guille Urban Adult Child Health Care Agen t (per Health Care Power of American Indian Policy Specialist document) [email or web address] om Care Teams Impact Hammer Operator Relationship Specialty Start Date End Date Rafa Bergman MD [address] [place] [address] [place] [address] PCP - General Family Medicine 04/19/21 documented as of this encounter
--- OUTSIDE RECORDS SUMMARY | 2024-07-23 23:59 | External Medical Summary | Summary of Care ---
Author Name Unknown Organization [facility] Address [address] [place] [address] Phone [phone] Care Team Providers Care Milk Deliverer Name Role Phone Sandra Alonso MD Primary Care Provide r Reason for Visit * Reason Comments Medication Refill Encounter Details Date Type Department Care Team (Late st Contact Info) Description 07/08/2024 Refill Family Medicine [address] [place] [phone] Sandra Alonso MD [address] [place] [address] [place] [phone] Allergies Active Allergy Reactions Criticality Noted Date [...] goal LDL below 70,Coronary artery disease involving stockbridge coronary artery of stockbridge heart without angina pectoris TAKE ONE TABLET [...] tachycardia,Tach y-chintan syndrome (HCC),Coronary artery disease involving stockbridge coronary artery of stockbridge heart without angina pectoris,Presenc e of cardiac [...] morning. In the morning.. 100 Tablet 3 07/09/19 25 Active Vitamin B-12 1000 MCG Oral [...] 01/03/2023 History of AR (myocardial infarction) 11/27/2022 Assessment & Plan (04/16/2024 [...] S/P angioplasty with stent 11/27/2018 Atherosclerosis of stockbridge co ronary artery of stockbridge heart without angina pectoris 07/08/2018 Overview (11/21/2023): history of NSTEMI status post AMIE to LAD (culprit) and RCA, 04/28/2018 Assessment & Plan (06/23/2024 3:37 PM EDT): Follows with cardiology Continue statin Assessment & Plan (01/24/2024 4:40 PM EDT): Cardiac rehab at [facility] 2x week Assessment & Plan (11/21/2023 [...] 09/13/2022 11/08/2023 Atherosclerosis of coronary artery of stockbridge heart without angina pectoris 09/10/2022 10/31/2022 Hypothyroidism [...] filter 02/28/2015 Atherosclerotic heart diseas e of stockbridge coronary artery with angina pectoris 11/2018 CKD [...] No 02/06/2024 Does the household have a [facility] source of income? 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 In the morning.. Authorizing Provider: SANDRA ALONSO * Telephone Encounter - Carol Cadet RN - 07/08/2024 8:58 AM EDTPending Prescriptions: Disp Refills Vitamin B-12 1000 MCG Oral Tablet (Cyanoco*100 Ta*3 Sig: Take 1 Tablet by mouth in the morning. In the morning.. * Telephone Encounter - Carol Cadet RN - 07/08/2024 8:58 AM EDT Pending Prescriptions: Disp Refills Vitamin B-12 1000 MCG Oral Tablet (Cyanoc*90 Tab*1 Sig: Take 1 Tablet by mouth in the morning. In the morning.. Last Visit: 06/25/2024 (in office), Visit date not found (telemedicine) Next Visit: 07/08/2024 Last date the medication was ordered: 01/22 Patient Active Problem List Diagnosis Senile osteoporosis HTN, goal below 140/90 Hypothyroidism (acquired) Dyslipidemia, goal LDL below 70 Retinal vein occlusion of right eye Vitamin B12 deficiency History of DVT (deep vein thrombosis) H/O nonmelanoma skin cancer Rhinitis, nonallergic Deviated nasal septum Arthritis of left ankle Atherosclerosis of stockbridge coronary artery of stockbridge heart without angina pectoris S/P angioplasty with stent Hypertensive kidney disease with stage 3a chronic kidney disease History of basal cell carcinoma Chronic kidney disease, stage 3a (HCC) Prediabetes Gastro-esophageal reflux disease with esophagitis, without bleeding Tachy-chintan syndrome (HCC) S/P placement of cardiac pacemaker History of AR (myocardial infarction) History of pulmonary embolism Nevus of choroid of right eye Migraine without aura and without status migrainosus, not intractable 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 Labs: Lab Results Component Value Date/Time CREATININE - [facility] 1.0 06/25/2024 09:25 AM CREATININE - [facility] 1.0 02/12/2020 08:32 AM CREATININE - [facility] 0.7 07/15/1996 11:28 AM CREATININE, RANDOM URINE - [facility] 174 02/12/2023 08:31 AM CREATININE, RANDOM URINE - [facility] 131 08/28/2019 04:32 PM Lab Results Component Value Date/Time POTASSIUM - [facility] 4.2 06/25/2024 09:25 AM POTASSIUM - [facility] 4.2 02/12/2020 08:32 AM POTASSIUM - [facility] 4.5 07/15/1996 11:28 AM Lab Results Component Value Date/Time TSH - [facility] 2.50 06/25/2024 09:25 AM TSH - [facility] 3.11 02/01/2020 10:03 AM Lab Results Component Value Date/Time LDL (CALCULATED) 103. 07/15/1996 11:28 AM LDL CHOLESTEROL (CALCULATED) - [facility] 21 11/05/2023 01:58 PM LDL CHOLESTEROL (CALCULATED) - [facility] 55 03/21/2022 09:15 AM LDL CHOLESTEROL (CALCULATED) - [facility] 22 11/27/2019 08:12 AM LDL CHOLESTEROL (CALCULATED) - [facility] 58 12/19/2017 07:41 AM LDL CHOLESTEROL (DIRECT MEASURE) - [facility] NOT APPLICABLE 11/27/2019 08:12 AM LDL CHOLESTEROL (DIRECT MEASURE) - [facility] NOT APPLICABLE 12/19/2017 07:41 AM Lab Results Component Value Date/Time ALT 24 07/15/1996 11:28 AM ALT - [facility] 16 02/17/2024 11:19 AM ALT - [facility] 15 02/12/2020 08:32 AM ALT-OUTSIDE LAB 17 02/17/2015 12:00 AM Hemoglobin AIC Results: Lab Results Component Value Date/Time HEMOGLOBIN A1C - [facility] 5.5 04/26/2023 02:53 PM HEMOGLOBIN A1C - [facility] 5.7 (H) 03/21/2022 09:15 AM HEMOGLOBIN A1C - [facility] 6.2 (H) 04/19/2021 10:40 AM HEMOGLOBIN A1C - [facility] 5.7 08/27/2008 04:40 PM * Telephone Encounter - Gurmeet Chiu - 07/08/2024 5:49 AM EDTPending Prescriptions: Disp Refills Vitamin B-12 1000 MCG Oral Tablet (Cyanoco*90 Tab*1 Sig: Take 1Tablet by mouth in the morning. In the morning.. documented in this encounter Plan of Treatment Upcoming Encounters Date Type Department Care Team (Late st Contact Info) Description 07/14/2024 2:30 PM EDT Cardiac Studies Cardiology [address] [place] [phone] [facility] [address] [place] [address] 07/28/2024 10:00 AM EDT Home Visit [facility] [place], [facility] [address] [place] [address] Leon Live PA-C 132 [place] [address] 07/30/2024 1:30 PM EDT Imaging Radiology [facility] [address] [place] [phone] 08/11/2024 1:45 PM EDT Office Visit Ophthalmology, Stephany Hoover [place] [address] [place], [place] [phone] Pedro Tinsley DO [address] [place] [address] Nurse Roscoe Leyva [address] [place] [address] Photographer Justen Leyva [address] [place], [place] [address] 08/18/2024 10:20 AM EDT Laboratory Laboratory [address] [place] [phone] [place] [address] 08/25/2024 3:30 PM EDT Office Visit Hematology/Oncology [facility] [address] [place] [phone] Arianna Szymanski MD [address] [place], [place] [address] 09/07/2024 3:30 PM EDT Office Visit Rheumatology [address] [place] [phone] José Miguel Cullen CRNP [address] [place] [address] [place], [place] [address] 09/11/2024 12:50 PM EDT Office Visit Dermatology, Jesu Wilson [address] [place] [address] Dasha Nelson PA-C [address] [place] [address] 09/29/2024 3:10 PM EDT Office Visit Urogynecology [facility] [address] [place] [address] Quincy Garcia MD [address] [place] [address] 10/05/2024 1:30 PM EDT Office Visit Cardiology, [facility] [address] [place] [phone] Charles Ortega, [address] [place] [address] 10/05/2024 2:15 PM EDT Telemedicine Neurology [facility] [address] [place] [address] Alfonso Manning MD [address] [place] [address] 12/30/2024 12:40 PM EDT Office Visit Family Medicine [address] [phone] Irene Bowens MD [address] [place] [address] [place] [phone] Health Maintenance Due Date Last Done Comments Adult Wellness Visit 02/06/2018 02/06/2017 Depression Screening 07/17/2022 07/17/2021 COVID-19 Vaccine ( season) 2023 02/05/2022, 08/02/2021, 02/28/2021, Additional history exists Albumin/Creatinine Ratio 02/13/2024 023, 03/21/2022, 04/19/2021, Additional history exists HbA1c 04/26/2024 04/26/2023, 03/02, 04/19/2021, Additional history exists CKD PHOS USE SMARTSET 51482 06/26/202405/31, 04/19/2021, 11/27/2019, Additional history exists DXA Scan 07/18/2024 07/18/2022, 06/30, 12/22/2019, Additional history exists Influenza Vaccine (FLU shot) (Season Ended) 2024 04/19/2023, 01/30/2022, 12/28/2020, Additional history exists GFR 12/26/2024 06/25/2024, 11/2024, 02/17/2024, Additional history exists CKD HGB USE SMARTSET 75624 02/16/202502/16, 02/17/2024, 06/27/2023, Additional history exists TSH [...] D LEVEL ONCE IN A LIFETIME-USE SMARTSET# 52057 Completed 06/27/2023, 11/06/2021, 12/28/2019, Additional history exists [...] this encounter Medical Devices Implanted Type Area Contract Accountant Device Identifier Shelf Expiration Date Model / Serial / Lot Lens Intraoc 21.5 - [id number] - [id number] Implanted:Qty: 1 on 05/12/2019 by Yury Brady MD at OR [facility] Right: Eye BAUSCH 12/30/2023 [id number] / [id number] / [id number] Lens Intraoc 22.5 - [id number] - [id number] Implanted:Qty: 1 on 04/05/2020 by Yury Brady MD at OR [facility] Left: Eye BAUSCH 09/28/2024 [id number] / [id number] / [id number] documented as of this encounter Advance Directives Documents on File Type Date Recorded Patient Ic Design Manager Expl anation Advance Directives and Living [...] Agen t (per Health Care Power of Mattress Renovator document) Guille Urban Adult Child Health Care Agen t (per Health Care Power of Mattress Renovator document) [email or web address] om Care Teams Milk Deliverer Relationship Specialty Start Date End Date Sandra Alonso MD [address] [place] [address] [place] [address] PCP - General Family Medicine 04/19/21 documented as of this encounter
--- OUTSIDE RECORDS SUMMARY | 2024-07-23 23:59 | External Medical Summary | Summary of Care ---
Author Name Unknown Organization [facility] Address [address] [facility] [address] Phone [phone] Care Team Providers Care Lapel Baster Name Role Phone Rafa Bergman MD Primary Care Provide r Reason for Visit * Reason Comments Follow Up * Precert (Within 10 days (routine)) - Authorized Specialty Diagnoses / Procedures Referred By Ethan nicole Referred To Contact Ophthalmology Diagnoses Tributary (branch) retinal vein occlusion, right eye, with macular edema Procedures DE INJECTION, FARICIMAB-SVOA, 0.1 MG DE INTRAVITREAL NJX PHARMACOLOGIC AGT SPX Pedro Tinsley DO [address] [address] Phone: tel: fax: Ophthalmology, [facility] [address] [facility] [place] [address] Phone: tel: fax: Referral ID Status Reason Start Date Expiration Date V isits Requested Visits Authorized [id number] Authorized Precert 02/04/2024 03/31/2099 [id number] Encounter Details Date Type Department Care Team (Surya st Contact Info) Description 06/26/2024 11:30 AM EDT Office Visit Ophthalmology, [facility] [address] [place] [address] Pedro Tinsley DO [address] [place] [address] 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 [...] goal LDL below 70,Coronary artery disease involving citizen potawatomi coronary artery of citizen potawatomi heart without angina pectoris TAKE ONE TABLET [...] tachycardia,Tach y-chintan syndrome (HCC),Coronary artery disease involving citizen potawatomi coronary artery of citizen potawatomi heart without angina pectoris,Presenc e of cardiac [...] 01/03/2023 History of UT (myocardial infarction) 11/27/2022 Assessment & Plan (04/16/2024 [...] citizen potawatomi heart without angina pectoris 07/08/2018 Overview (11/21/2023): history of NSTEMI status post AMIE to LAD (culprit) and RCA, 04/28/2018 Assessment & Plan (06/23/2024 3:37 PM EDT): Follows with cardiology Continue statin Assessment & Plan (01/24/2024 4:40 PM EDT): Cardiac rehab at [facility] 2x week Assessment & [...] 09/13/2022 11/08/2023 Atherosclerosis of coronary artery of citizen potawatomi [...] filter 02/28/2015 Atherosclerotic heart diseas e of citizen potawatomi coronary artery with angina pectoris 11/2018 CKD [...] Not on file 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 Date: 06/2025 documented in this encounter Plan of Treatment Upcoming Encounters Date Type Department Care Team (Late st Contact Info) Description 07/06/2024 8:40 AM EDT Office Visit Neurology [facility] 200 [facility] [place] [address] Alfonso Manning MD [address] [place] [address] 07/06/2024 11:00 AM EDT [facility] [place] [address] Leon Live PA-C [address] [place] [address] 07/14/2024 2:30 PM EDT Cardiac Studies Cardiology [address] [place] [address] [facility] [address] [place] [address] 07/21/2024 10:00 AM EDT Imaging Radiology [facility] [address] [place] [phone] 07/28/2024 10:00 AM EDT [facility] [address] [place] [address] Leon Live PA-C [address] [place] [address] 08/11/2024 1:45 PM EDT [facility] [address] [place] [phone] Pedro Tinsley, [address] [place] [address] Nurse Roscoe Leyva [address] [place] [address] Photographer Justen Leyva [address] [place] [address] 08/18/2024 10:20 AM EDT Laboratory Laboratory [address] [place] [phone] [place] [address] 08/21/2024 3:00 PM EDT Office Visit Rheumatology [address] [place] [phone] José Miguel Cullen CRNP [address] [place] [address] [place] [address] 08/25/2024 3:30 PM EDT Office Visit Hematology/Oncology [facility] [place] [address] [facility] [place] [phone] Arianna Szymanski MD [address] [place] [address] 09/11/2024 12:50 PM EDT Office Visit Dermatology, Marilyn Garces [place] [address] [place] [address] Dasha Nelson PA-C [address] [place] [address] 09/29/2024 3:10 PM EDT Office Visit Urogynecology [facility] [address] [facility] [place] [phone] Quincy Garcia MD [address] [place] [address] 10/05/2024 1:30 PM EDT Office Visit Cardiology, [facility] [address] [place] [phone] Charles Ortega, [address] [place] [address] 12/30/2024 12:40 PM EDT Office Visit Family [address] [place] [phone] Irene Bowens MD [address] [place] [address] [place] [phone] Scheduled Orders Name Type Priority Associated Diagnoses [...] Additional history exists CKD PHOS USE SMARTSET 23401 06/26/2024 03/10/2023, 04/19/2021, 11/27/2019, Additional history exists DXA Scan 07/18/2024 07/18/2022, 06/30, 12/22/2019, Additional history exists GFR 12/26/2024 06/25/2024, 03/0 11/2024, 02/17/2024, Additional history exists CKD HGB USE SMARTSET 56410 02/16/202502/16, 02/17/2024, 06/27/2023, Additional history exists TSH [...] D LEVEL ONCE IN A LIFETIME-USE SMARTSET# 73062 Completed 06/27/2023, 11/06/2021, 12/28/2019, Additional history exists [...] this encounter Medical Devices Implanted Type Area Restaurant Recruiter Device Identifier Shelf Expiration Date Model / Serial / Lot Lens Intraoc 21.5 - [id number] - [id number] Implanted:Qty: 1 on 05/12/2019 by Yury Brady MD at OR [facility] Right: Eye BAUSCH & LOMB 12/30/2023 [id number] / [id number] / [id number] Lens Intraoc 22.5 - [id number] - [id number] Implanted:Qty: 1 on 04/05/2020 by Yury Brady MD at OR [facility] Left: Eye BAUSCH & LOMB 09/28/2024 [id number] / [id number] / [id number] documented as of this encounter Visit Diagnoses Diagnosis Hypertensive kidney disease with stage 3a chronic kidney disease- Primary Atherosclerosis of citizen potawatomi coronary artery of citizen potawatom[place] heart without angina pectoris Dyslipidemia, goal LDL below 70 Other and unspecified hyperlipidemia History of pulmonary embolism Personal history of pulmonary embolism Tachy-chintan syndrome (HCC) Sinoatrial node dysfunction S/P placement of cardiac pacemaker Cardiac pacemaker in situ Arthralgia of right hip Gastro-esophageal reflux disease with esophagitis, without bleeding Sinus tachycardia Other specified cardiac dysrhythmias Coronary artery disease involving citizen [place] coronary artery of citizen potawatomi heart without angina pectoris Presence of cardiac pacemaker Cardiac pacemaker in situ Palpitations HTN, goal below 140/90 Unspecified essential hypertension Hypertensive kidney disease with stage 3a chronic kidney disease- Primary Dyslipidemia, goal LDL below 70 Other and unspecified hyperlipidemia Gastro-esophageal reflux disease with esophagitis, without bleeding Atherosclerosis of citizen potawatomi coronary artery of citizen potawatomi heart without angina pectoris Advanced care planning/counseling discussion- Primary Other specified counseling Hypertensive kidney disease with stage 3a chronic kidney disease (HCC) History of UT (myocardial infarction) Old myocardial infarction Tachy-chintan syndrome [...] 3a chronic kidney disease- Primary Atherosclerosis of citizen potawatom[place] coronary artery of citizen potawatomi heart without angina pectoris Migraine without aura [...] Documents on File Type Date Recorded 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
--- OUTSIDE RECORDS SUMMARY | 2024-07-24 | External Medical Summary | Summary of Care ---
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 Automatic Name Role Phone Rafa Bergman MD Primary Care Provide r Reason for Visit * Reason Comments eRx-Medication Refill Encounter Details Date Type Department Care Team (Late st Contact Info) Description 06/15/2024 Refill Neurology [facility] [address] [place] [address] Shirley Robertson MD [address] [place] [address] Allergies Active Allergy Reactions Criticality Noted Date Comments Colchicine Diarrhea 06/16/2018 Daptomycin 01/05/2015 Shortness of breath Imipenem Edema airway High 01/05/2015 Metoprolol Low 01/23/2021 Other reaction(s): fatigue Zoledronic Acid 04/24/2012 Myalgias, fever, chills, vomiting x 2 days Sulfa Antibiotics 12/22/2002 Bactrim--itchy all over, eyes swollen documented as of this encounter (statuses as of 06/25/2024) Medications ASPIRIN 81 MG PO TABS Take by mouth at bedtime. Active Acetaminophen 500 MG Oral Tablet Take 2 Tablets by mouth every 6 hours as needed for Pain. Active CoQ10 100 MG Oral Capsule Take by mouth. Ac tive Loperamide HCl 2 MG Oral Capsule (Imodium)Indica tions:Diarrhea, unspecified type take 1 capsule 4 times daily as needed for loose stool 30 Capsule 3 023 Active Dicyclomine HCl 10 MG Oral Capsule (Bentyl)Indicat ions:Diarrhea, unspecified type,Irritable bowel syndrome with both constipation and diarrhea take 1 capsule as needed in the morning, 1 capsules as needed at noon, 1 capsule as needed in the evening and 1 capsule as needed before bedtime for pain or gas. take for abdominal pain. 120 Capsule 023 Active Cholecalciferol 50 MCG (2000 UT) Oral Capsule Take 1 Capsule by mouth in the morning. Active Fortify Probiotic Womens Oral Capsule Delayed Release Take 1 Capsule by mouth in the morning. Active Bisacodyl 5 MG Oral Tablet Delayed Release (Dulcolax) Take 1 Tablet by mouth daily as needed for Constipation. 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 180 Tablet 3 5 2:50 PM EDT 024 Active Pantoprazole Sodium 40 MG Oral Tablet Delayed Release (Protonix) Take 1 Tablet by mouth in the morning and 1 Tablet in the evening. 90 Tablet 3 5 8:22 AM EST 024 Active Rosuvastatin Calcium 5 MG Oral Tablet (Crestor)Indica tions:Dyslipide teri, goal LDL below 70,Coronary artery disease involving [place] coronary artery of [place] heart without angina pectoris TAKE ONE TABLET BY MOUTH IN THE MORNING 90 Tablet 3 5 7:44 AM EST 024 Active Levothyroxine Sodium 125 MCG Oral Tablet (Levoxyl)Indica tions:Hypothyro idism (acquired) Take 1 Tablet by mouth daily first thing in the morning. (at least 30 min prior to breakfast or other meds) 90 Tablet 2 5 11:01 AM EST Active Vitamin B-12 1000 MCG Oral Tablet (Cyanocobalamin ) Take 1 Tablet by mouth in the morning. In the morning.. 90 Tablet 1 5 5:36 PM EST Active Ondansetron HCl 4 MG Oral TabletIndicatio ns:Nausea Take 1 Tablet by mouth every 8 hours as needed for Nausea. 30 Tablet Active Famotidine 20 MG Oral Tablet (Pepcid) Take 1 Tablet by mouth at bedtime. 90 Tablet 3 5 9:29 AM EDT Active dilTIAZem HCl ER 360 MG Oral Tablet Extended Release 24 HourIndications :HTN, goal below 140/90,Tachy-br gege syndrome (HCC) Take 1 Tablet by mouth in the morning. 90 Tablet 2 5 11:42 AM EST 024 Active Riboflavin 400 MG Oral Tablet Take 1 Tablet by mouth in the morning. 90 Tablet 3 5 1:21 PM EST Active Magnesium Oxide -Mg Supplement 400 MG Oral Capsule (Magnesium Extra Strength) Take 1 capsule by mouth in the morning. 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 90 Tablet 3 5 7:17 PM EST 024 2024 Discontinued(R efill) Gabapentin 100 MG Oral Capsule (Neurontin) Take one cap at bedtime for a week then one cap in the morning and at bedtime for a week and one cap three times a day 90 Capsule 025 2024 Discontinued methylPREDNISol one 4 MG Oral Tablet Therapy Pack (Medrol Dosepack) Take as per instructions on package. 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 History of NM (myocardial infarction) 11/27/2022 Assessment & Plan (04/16/2024 [...] S/P angioplasty with stent 11/27/2018 Atherosclerosis of [place] co ronary artery of [place] heart without angina pectoris 07/08/2018 Overview (11/21/2023): [...] as of this encounter (statuses as of 06/25/2024) Resolved Problems Problem Noted Date Diagnosed Date Resolved Date Purulent endophthalmitis of right eye 01/03/2023 11/08/2023 Other pulmonary embolism wit h acute cor pulmonale 10/01/2022 04/26/2023 Overview (04/26/2023): history Medical home patient encounter 09/13/2022 11/08/2023 Atherosclerosis of coronary artery of [place] heart without angina pectoris 09/10/2022 10/31/2022 Hypothyroidism [...] filter 02/28/2015 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 Caller can be reached at [phone]. Thank you, Margarita Vidal CphT [employer] [facility]) 06/25/24 * Telephone Encounter - Shirley Robertson MD - 06/16/2024 10:03 AM EDTSigned Prescriptions: Disp Refills Gabapentin 100 MG Oral Capsule (Neurontin) 90 Cap*1 Sig: Take one cap three times a day Authorizing Provider: SHIRLEY ROBERTSON * Telephone Encounter - Irene Lawrence LPN - 06/16/2024 9:29 AM EDTPending Prescriptions: Disp Refills Gabapentin 100 MG Oral Capsule (Neurontin) 90 Cap*1 Sig: Take one cap three times a day * Telephone Encounter - Irene Lawrence LPN - 06/16/2024 9:27 AM EDT Last seen 02/24/24 * Telephone Encounter - Gurmeet Chiu - 06/15/2024 4:10 PM EDTPending Prescriptions: Disp Refills Gabapentin 100 MG Oral Capsule [Pharmacy M*90 Cap*0 Sig: Take one cap at bedtime for a week then one cap in the morning and at bedtime for a week and one cap three times a day * Telephone Encounter - Gurmeet Chiu - 06/15/2024 4:08 PM EDT Did you pend patient's preferred pharmacy and medication before forwarding?yes [facility]acy: [id number] [address] [facility] Pending Prescriptions: Disp Refills Gabapentin 100 MG Oral Capsule (Neurontin*90 Cap*0 Sig: Take one cap at bedtime for a week then one cap in the morning and at bedtime for a week and one cap three times a day Last Visit: 02/24/2024 (in office), Visit date not found (telemedicine) Next Visit: 07/06/2024 If no future appointments scheduled, and last appointment is greater than a year ago, please schedule patient for a follow-up appointment Last date the medication was ordered: 04/20/2024 Is this request for a controlled substance?No Urine Drug Screen:No results found. However, due to the size of the patient record, not all encounters were searched. Please check Results Review for a complete set of results. Patient Phone Numbers Labs: Lab Results Component Value Date/Time CREAT 1.0 06/07/2024 02:30 PM CREAT 1.0 02/12/2020 08:32 AM CREAT 0.7 07/15/1996 11:28 AM POTASSIUM 4.3 06/07/2024 02:30 PM POTASSIUM 4.2 02/12/2020 08:32 AM POTASSIUM 4.5 07/15/1996 11:28 AM TSH 2.16 04/24/2024 08:43 AM TSH 3.11 02/01/2020 10:03 AM TSH [...] Care Team (Late st Contact Info) Description 06/26/2024 11:30 AM EDT Office Visit Ophthalmology, [facility] [address] [place] [address] Pedro Tinsley DO [address] [place] [address] 07/06/2024 8:40 AM EDT Office Visit Neurology [facility] [address] [facility] [place] [address] Shirley Robertson MD [address] [place] [address] 07/06/2024 11:00 AM EDT Home Visit [place] at [place], [facility] [address] [place] [address] Leon Live PA-C [address] [place] [address] 07/14/2024 2:30 PM EDT Cardiac Studies Cardiology [address] [place] [address] [facility] [address] [place] [address] 07/21/2024 10:00 AM EDT Imaging Radiology [facility] [address] [place] [phone] 07/28/2024 10:00 AM EDT Home Visit [facility], [facility] [address] [place] [address] Leon Live PA-C [address] [place] [address] 08/18/2024 10:20 AM EDT Laboratory Laboratory [address] [place] [phone] [place] [address] 08/21/2024 3:00 PM EDT Office Visit Rheumatology [address] [place] [phone] José Miguel Cullen CRNP [address] [place] [address] [place] [address] 08/25/2024 3:30 PM EDT Office Visit Hematology/Oncology [facility] [place] [address] [place] [phone] Arianna Szymanski MD [address] [facility] [place] [address] 09/11/2024 12:50 PM EDT Office Visit Dermatology, [facility] [address] [place] [address] Dasha Nelson PA-C [address] [place] [address] 09/29/2024 3:10 PM EDT Office Visit Urogynecology [facility] [address] [place] [address] Quincy Garcia MD [address] [place] [address] 10/05/2024 1:30 PM EDT Office Visit Cardiology, [facility] [address] [place] [phone] Charles Ortega DO [address] [place] [address] 12/30/2024 12:40 PM EDT Office Visit Family Medicine [address] [place] [phone] Irene Bowens MD [address] [place] [address] [place] [phone] Health Maintenance Due Date Last Done Comments Adult Wellness Visit 02/06/2018 02/06/2017 Depression Screening 07/17/2022 07/17/2021 COVID-19 Vaccine ( season) 2023 02/05/2022, 08/02/2021, 02/28/2021, Additional history exists Influenza Vaccine (FLU shot) (#1) 2023 04/19/2023, 01/30/2022, 12/28/2020, Additional history exists Albumin/Creatinine Ratio 02/13/2024 023, 03/21/2022, 04/19/2021, Additional history exists HbA1c 04/26/2024 04/26/2023, 03/02, 04/19/2021, Additional history exists CKD PHOS USE SMARTSET 76650 06/26/202405/31, 04/19/2021, 11/27/2019, Additional history exists DXA Scan 07/18/2024 07/18/2022, 06/30, 12/22/2019, Additional history exists GFR 12/08/2024 06/07/2024, 01/30, 11/05/2023, Additional history exists CKD HGB USE SMARTSET 64983 02/16/202502/16, 02/17/2024, 06/27/2023, Additional history exists TSH 04/24/2025 04/24/2024, 10/2024, 11/15/2023, Additional history exists DTap/Tdap Vaccines (3 - Td or Tdap) 09/30/2033 10/01/2023, 11/03/2007 Hepatitis B Vaccine Completed 03/18/2009, 06/14/2008, 05/12/2008 Pneumococcal Vaccine: 50+ Years Completed 03/28/2015, 03/20/2010, 11/15/2004 RETIRED - COLONOSCOPY-EVERY 5 YRS AGES 18-100 Discontinued 02/27/2017, 02/27/2017, 10/17/2004 Zoster Vaccines Completed 06/12/2021, 02/01, 11/04/2012 VITAMIN D LEVEL ONCE IN A LIFETIME-USE SMARTSET# [id number] Completed 06/27/2023, 11/06/2021, 12/28/2019, Additional history exists [...] this encounter Medical Devices Implanted Type Area Baggage Security Checker Device Identifier Shelf Expiration Date Model / Serial / Lot Lens Intraoc 21.5 - [id number] - [id number] Implanted:Qty: 1 on 05/12/2019 by Yury Brady MD at [facility] Right: Eye [employer] 12/30/2023 [id number] / [id number] / [id number] Lens Intraoc 22.5 - [id number] - [id number] Implanted:Qty: 1 on 04/05/2020 by Yury Brady MD at OR [facility] Left: Eye [employer] 09/28/2024 [id number] / [id number] / [id number] documented as of this encounter Additional Health Concerns Infection Onset Date Last Indicated Resolved Time RSV 06/05/2024 06/05/2024 documented as of this encounter Advance Directives Documents on File Type Date Recorded 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
--- OUTSIDE RECORDS SUMMARY | 2024-07-24 | External Medical Summary | Summary of Care ---
Author Name Unknown Organization [facility] Address [address] [facility] [place] [address] Phone [phone] Care Team Providers Care Amf Mechanic Name Role Phone Rafa Bergman MD Primary Care Provide r Reason for Visit * Reason Comments Re-Check Encounter Details Date Type Department Care Team (Latest Contact Info) Description 06/25/2024 9:00 AM EDT Office Visit Family Medicine [address] [place] [phone] Rafa Bergman MD [address] [place] [address] [place] [id number] Hypothyroidism (acquired)*; Sinus tachycardia; Tachy-chintan syndrome (HCC); Coronary artery disease involving point hope ira coronary artery of point hope ira heart without angina pectoris; Presence of cardiac pacemaker; Palpitations; HTN, goal below 140/90; Leg swelling Allergies Active Allergy Reactions Criticality Noted Date [...] goal LDL below 70,Coronary artery disease involving point hope ira coronary artery of point hope ira heart without angina pectoris TAKE ONE TABLET BY MOUTH IN THE MORNING 90 Tablet 3 5 7:44 AM EST 024 Active Levothyroxine Sodium 125 MCG Oral Tablet (Levoxyl)Indica tions:Hypothyro idism (acquired) Take 1 Tablet by mouth daily first thing in the morning. (at least 30 min prior to breakfast or other meds) 90 Tablet 2 5 11:01 AM EST 024 Active Vitamin B-12 1000 MCG Oral Tablet (Cyanocobalamin ) Take 1 Tablet by mouth in the morning. In the morning.. 90 Tablet 1 5 5:36 PM EST 024 Active Ondansetron HCl 4 MG Oral TabletIndicatio ns:Nausea Take 1 Tablet by mouth every 8 hours as needed for Nausea. 30 Tablet 024 Active Famotidine 20 MG Oral Tablet (Pepcid) Take 1 Tablet by mouth at bedtime. 90 Tablet 3 5 9:29 AM EDT 024 Active dilTIAZem HCl ER 360 MG Oral Tablet Extended Release 24 HourIndications :HTN, goal below 140/90,Tachy-br gege syndrome (HCC) Take 1 Tablet by mouth in the morning. 90 Tablet 2 5 11:42 AM EST 024 Active Riboflavin 400 MG Oral Tablet Take 1 Tablet by mouth in the morning. 90 Tablet 3 5 1:21 PM EST 025 Active Magnesium Oxide -Mg Supplement 400 MG Oral Capsule (Magnesium Extra Strength) Take 1 capsule by mouth in the morning. 90 Capsule 3 5 1:21 PM EST 025 Active Allopurinol 300 MG Oral Tablet (Zyloprim) TAKE 1 & 1/2 TABLETS BY MOUTH EVERY DAY 135 Tablet 5 5:55 PM EST 025 Active Gabapentin 100 MG Oral Capsule (Neurontin) Take one cap three times a day 90 Capsule 1 025 Active Additional Information Patient taking differently: 300 mg Oral BID (.AM/PM), Take one cap three times a day, Reported on 06/25/2024 Spironolactone 25 MG Oral Tablet (Aldactone) Take 0.5 Tablets by mouth in the morning. 025 Active Propranolol HCl 10 MG Oral Tablet (Inderal)Indica tions:Sinus tachycardia,Tac hy-chintan syndrome (HCC),Coronary artery disease involving point hope ira coronary artery of point hope ira heart without angina pectoris,Presen ce of cardiac pacemaker,Palpi tations,HTN, goal below 140/90 Take 0.5 Tablets by mouth at bedtime. 025 Active Propranolol HCl 10 MG Oral Tablet (Inderal)Indica tions:Sinus tachycardia,Tac hy-chintan syndrome (HCC),Coronary artery disease involving point hope ira coronary artery of point hope ira heart without angina pectoris,Presen ce of cardiac pacemaker,Palpi tations,HTN, goal below 140/90 Take one-half Tablet by mouth in the morning and before bedtime. 90 Tablet 3 5 7:17 PM EST 024 2024 Discontinued(R efill) methylPREDNISol one 4 MG Oral Tablet Therapy [...] hope ira heart without angina pectoris 07/08/2018 Overview (11/21/2023): history of NSTEMI status post AMIE to LAD (culprit) and RCA, 04/28/2018 Assessment & Plan (06/23/2024 3:37 PM EDT): Follows with cardiology Continue statin Assessment & Plan (01/24/2024 4:40 PM EDT): Cardiac rehab at [facility] 2x week Assessment & Plan (11/21/2023 5:32 [...] 09/13/2022 11/08/2023 Atherosclerosis of coronary artery of point hope [...] filter 02/28/2015 Atherosclerotic heart diseas e of point hope ira coronary artery with angina pectoris 11/2018 CKD [...] 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 Not on file Not on file 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 Not on file Not on file Not on file documented as of this encounter Last Filed Vital Signs Vital Sign Reading Time Taken Comments Blood Pressure 106/74 06/25/2024 8:55 AM EDT Pulse 89 06/25/2024 8:55 AM EDT Temperature 36.1 °C (96.9 °F) 06/25/2024 8:55 AM ED T Respiratory Rate - - Oxygen Saturation 96% 06/25/2024 8:55 AM EDT Inhaled Oxygen Concentration - - Weight 78.7 kg (173 lb 6.4 oz) 06/25/2024 8:55 A M EDT Height - - Body Mass Index 30.72 02/24/2024 12:52 PM EST documented in this encounter Progress Notes * Rafa Bergman MD - 06/25/2024 8:59 AM EDT Subjective: HPI: Rehana Moran is a 79 year old female with hx of hypothyroidism, HLD, HTN, hx of MT, CAD s/p stent, GERD, CKD III, osteoporosis, hx of DVT/PE x2 (2009, 2022), Renal cyst, tachy-chintan syndrome s/p dual chamber pacemaker, prediabetes, macular degeneration, R retinal vein occlusion, B/L TKA, Gout, Migraine seen for Hypothyroidism: - on levothyroxine 125 mcg daily Recovering well on PNA - denied any cough or fever HTN and CAD s/p stent: - on Diltiazem ER 360mg daily - pt is taking aldactone 12.5mg daily for leg swelling ---- doing well Afib & tachy-chintan syndrome s/p dual chamber pacemaker - on eliquis 2.5mg BID Migraine: - MAN is better with Gabapentin 100mg BID - doing much better Patient Active Problem List Diagnosis Senile osteoporosis HTN, goal below 140/90 Hypothyroidism (acquired) Dyslipidemia, goal LDL below 70 Retinal vein occlusion of right eye Vitamin B12 deficiency History of DVT (deep vein thrombosis) H/O nonmelanoma skin cancer Rhinitis, nonallergic Deviated nasal septum Arthritis of left ankle Atherosclerosis of point hope ira coronary artery of point hope ira heart without angina pectoris S/P angioplasty with stent Hypertensive kidney disease with stage 3a chronic kidney disease History of basal cell carcinoma Chronic kidney disease, stage 3a (HCC) Prediabetes Gastro-esophageal reflux disease with esophagitis, without bleeding Tachy-chintan syndrome (HCC) S/P placement of cardiac pacemaker History of MT (myocardial infarction) History of pulmonary embolism Nevus [...] 100 MG Oral Capsule Take by mouth. Loperamide HCl 2 MG Oral Capsule (Imodium) [...] Take 1 Tablet by mouth in the morning.90 Tablet 2 Riboflavin 400 MG Oral Tablet Take 1 Tablet by mouth in the morning. 90 Tablet 3 Magnesium Oxide -Mg Supplement 400 MG Oral Capsule (Magnesium Extra Strength) Take 1 capsule by mouth in the morning. 90 Capsule 3 Allopurinol 300 MG Oral Tablet (Zyloprim) TAKE 1 & 1/2 TABLETS BY MOUTH EVERY DAY 135 Tablet 0 Gabapentin 100 MG Oral Capsule (Neurontin) Take one cap three times a day (Patient taking differently: Take 3 Capsules by mouth in the morning and 3 Capsules before bedtime. Take one cap three times a day.) 90 Capsule 1 Spironolactone 25 MG Oral Tablet (Aldactone) Take 0.5 Tablets by mouth in the morning. Propranolol HCl 10 MG Oral Tablet (Inderal) Take 0.5 Tablets by mouth at bedtime. Current Facility-Administered Medications Medication Dose Route Frequency Provider Last Rate Last Admin ROPivacaine (Naropin) inj 1.5 mg 1.5 mg Injection PRN 1.5 mg at 05/07/24 1513 Aflibercept (Eylea) intraviteal prefilled syringe 2 mg 2 mg Intravitreal PRN 2 mg at 02/04/24 1138 Faricimab-svoa (Vabysmo) prefilled syringe inj 6 mg 6 mg Intravitreal PRN 6 mg at 05/07/24 1513 Past Medical History: Diagnosis Date Allergic rhinitis Atherosclerotic heart disease of point hope ira coronary artery with angina pectoris ([facility]) Benign neoplasm of skin Benign paroxysmal vertigo 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 10/28/2013 Chronic sinusitis 10/28/2013 CKD (chronic kidney disease) stage 2, GFR 60-89 ml/min Degenerative disc disease, cervical 05/18/2016 Derangement of meniscus right knee Diverticulitis of colon DVT (deep venous thrombosis) ([facility]) 02/28/2015 Dyslipidemia, goal LDL below 100 09/15/2013 GERD (gastroesophageal reflux disease) 09/15/2013 HTN, goal below 140/90 Hypothyroidism (acquired) 09/15/2013 INFORMATION 02/05/2000 pulmonary embolism Intermittent asthma, reliever use 0-2/wk 10/18/2009 Intradermal Nevus,right upper arm 8//02 11/12/2001 Kidney cyst, acquired KIDNEY DZ,CHRONIC (GFR 30-59) STAGE III 10/20/2009 Per CKD Protocol, #1 MALIG KERRIE SKIN ARM 09/05/2004 MALIG KERRIE SKIN TRUNK 09/05/2004 new lesion- rt shoulder NSTEMI (non-ST elevated myocardial infarction) ([facility]) 04/28/2018 [facility], cathed and LAD stented with AMIE, RCA [...] to hypertension, elevated TSH, small pericardial effusion [facility] Pericarditis as complication of acute myocardial infarction ([facility]) 05/15/2018 [facility] colchicine not tolerated well. Pericarditis as complication of acute myocardial infarction ([facility]) 06/05/2018 [facility] steroids Postmenopausal atrophic vaginitis 09/15/2013 Presence of [...] knee ARTHROPLASTY KNEE TOTAL 11/11/2014 left knee- [facility]- Dr. Lopez CARDIAC CATH-CARDIOLOGY ONLY 04/28/2018 AMIE to LAD, PCI to RCA COLONOSCOPY 09/2004 diverticulosis COLONOSCOPY, DIAGNOSTIC (RECTUM) 02/27/2017 diverticulosis, repeat 5 yrs/COLONOSCOPY FLEXIBLE PROXIMAL DIAGNOSTIC performed by Ford Pantoja MD at ENDOSCOPY [facility] CTA CHEST NON-CORONARY W CONTRAST 11/13/2018 no [...] Right 01/20/2016 # 3 Eylea OD, Dr. Tinsely INJECTION OF EYE DRUG Right 03/16/2016 # [...] Right 01/30/2021 # 30 Eylea OD, Dr. Tinslye INJECTION OF EYE DRUG Right 03/29/2021 # [...] 05/07/2024 # 2 Vabysmo OD, Dr. Tinsley IR FILTER PLACEMENT VENA CAVA 10/2014 [facility] MISCELLANEOUS ORDER ([facility] ONLY) 12/02/2013-12/02/2014 LUCENTIS 0.5MG CONSENT SIGNED OD; DR LAUREANO ADAN ORDER ([facility] ONLY) Right 01/12/2015-01/13/2016 LUCENTIS 0.5MG CONSENT OD SIGNED; DR LAUREANO ADAN ORDER ([facility] ONLY) Right 10/21/2015-10/20/2016 EYLEA OD CONSENT SIGNED, Dr. Cessna MISCELLANEOUS ORDER ([facility] ONLY) Right 11/30/2016-11/30/2017 Eylea OD [...] performed by Brian Gagnon DO at OR [facility] REMOVAL OF TONSILS, UNDER AGE 12 REMOVE CATARACT, INSERT LENS PROSTH Right 05/12/2019 right EXTRACAPSULAR CATARACT REMOVAL WITH INTRAOCULAR LENS performed by Yury Brady MD at OR [facility] REMOVE CATARACT, INSERT LENS PROSTH Left 04/05/2020 left EXTRACAPSULAR CATARACT REMOVAL WITH INTRAOCULAR LENS performed by Yury Brady MD at OR [facility] REPAIR BLADDER & VAGINA, CYSTOCELE 01/2001 Dr [...] detachments or blindness No Past Hx None breast/solderer/colon Other (Other) None no hx of skin cancer for pt parents Social History Tobacco Use Smoking status: Never Smokeless tobacco: Never Tobacco comments: second hand smoke exposure - 10 years Substance Use Topics Alcohol use: No Vaping/E-Cigarette Use Vaping/E-Cigarette Use Never User Vaping/E-Cigarette Substances Vaping/E-Cigarette Devices ROS: -Per HPI OBJECTIVE: BP 106/74 | Pulse 89 | Temp 96.9 °F (36.1 °C) | Wt 173 lb 6.4 oz (78.7 kg) | SpO2 96% | BMI 30.72kg/m² | BSA 1.87 m² PHYSICAL EXAM: Vitals are reviewed General:. NAD, well developed HEENT:. Normal Conjunctiva, EOMI Cardiac:. Normal S1, S2, no murmur Lungs:. CTA, no wheezing or crackles MSK:. No LE edema Psych:. AAOx3, normal affect ASSESSMENT/PLAN: Pt's leg swelling is better with aldactone - BP is better as well Will continue current dose of gabapentin BID and inderal qhs VSS Labs today Hypothyroidism (acquired) (Primary) - TSH Sinus tachycardia Tachy-chintan syndrome (HCC) Coronary artery disease involving point hope ira coronary artery of point hope ira heart without angina pectoris Presence of cardiac pacemaker Palpitations HTN, goal below 140/90 - BASIC METABOLIC PANEL Leg swelling - BASIC METABOLIC PANEL Follow Up: Return in about 6 months (around 12/26/2024). Rafa Bergman MD Family medicine, [address] [address] documented in this encounter Nursing Notes * Lindsey Yi, JOSEPH - 06/25/2024 8:52 AM EDT She is here for a 6 mo routine visit. She has been sick for 3 weeks. She had RSV. JG took care of her. She said she had fluid on her lungs but she is doing better. documented in this encounter Plan of Treatment Upcoming Encounters Date Type Department Care Team (Late st Contact Info) Description 06/26/2024 11:30 AM EDT Office Visit Ophthalmology, [facility] [address] [place] [phone] Pedro Tinsley DO [address] [place] [address] 07/06/2024 8:40 AM EDT Office Visit Neurology [facility] [address] [place] [address] Alfonso Manning MD [address] [place] [address] 07/06/2024 11:00 AM EDT [facility] Visit [facility] [place], [facility] [address] [place] [address] Leon Live PA-C [address] [place] [address] 07/14/2024 2:30 PM EDT Cardiac Studies Cardiology [address] [place] [phone] [facility] [address] [place] [address] 07/21/2024 10:00 AM EDT Imaging Radiology [facility] [address] [place] [phone] 07/28/2024 10:00 AM EDT Home Visit [facility] [place], [facility] [address] [place] [address] Leon Live PA-C [address] [place] [address] 08/18/2024 10:20 AM EDT Laboratory Laboratory [address] [place] [phone] [place], [address] [place] [address] 08/21/2024 3:00 PM EDT Office Visit Rheumatology [address] [place] [phone] José Miguel Cullen CRNP [address] [place] [address] [place] [address] 08/25/2024 3:30 PM EDT Office Visit Hematology/Oncology [facility] [place] [address] [facility] [place] [phone] Arianna Szymanski MD [address] [facility] [place] [address] 09/11/2024 12:50 PM EDT Office Visit Dermatology, Jesu Wilson [address] [facility] [address] [place] [address] Dasha Nelson PA-C [address] [place] [address] 09/29/2024 3:10 PM EDT Office Visit Urogynecology [facility] [address] [place] [address] Quincy Garcia MD [address] [place] [id number] 10/05/2024 1:30 PM EDT Office Visit Cardiology, [facility] [address] [place] [phone] Charles Ortega O, DO [address] [place] [address] 12/30/2024 12:40 PM EDT Office Visit Family [address] [place] [phone] Irene Bowens MD [address] [place] [address] [place] [phone] Pending Results Name Type Priority Associated Diagnoses Date /Time BASIC METABOLIC PANEL Lab Routine HTN, goal below 140/90 Leg swelling 06/25/2024 9:25 AM EDT TSH Lab Routine Hypothyroidism (acquired) 06/25/2024 9:25 AM EDT Health Maintenance Due Date Last Done Comments Adult Wellness Visit 02/06/2018 02/06/2017 Depression Screening 07/17/2022 07/17/2021 COVID-19 Vaccine ( season) 2023 02/05/2022, 08/02/2021, 02/28/2021, Additional history exists Influenza Vaccine (FLU shot) (#1) 2023 04/19/2023, 01/30/2022, 12/28/2020, Additional history exists Albumin/Creatinine Ratio 02/13/2024 023, 03/21/2022, 04/19/2021, Additional history exists HbA1c 04/26/2024 04/26/2023, 03/02, 04/19/2021, Additional history exists CKD PHOS USE SMARTSET 82698 06/26/202405/31, 04/19/2021, 11/27/2019, Additional history exists DXA Scan 07/18/2024 07/18/2022, 06/30, 12/22/2019, Additional history exists GFR 12/08/2024 06/07/2024, 01/30, 11/05/2023, Additional history exists CKD HGB USE SMARTSET 15160 02/16/202502/16, 02/17/2024, 06/27/2023, Additional history exists TSH [...] D LEVEL ONCE IN A LIFETIME-USE SMARTSET# [id number] Completed 06/27/2023, 11/06/2021, 12/28/2019, Additional history exists [...] this encounter Medical Devices Implanted Type Area Innersole Maker Device Identifier Shelf Expiration Date Model / Serial / Lot Lens Intraoc 21.5 - [id number] - [id number] Implanted:Qty: 1 on 05/12/2019 by Yury Brady MD at OR [facility] Right: Eye [employer] 12/30/2023 [id number] / [id number] / [id number] Lens Intraoc 22.5 - [id number] - [id number] Implanted:Qty: 1 on 04/05/2020 by Yury Brady MD at OR [facility] Left: Eye [employer] 09/28/2024 [id number] / [id number] / [id number] documented as of this encounter Visit Diagnoses Diagnosis Hypertensive kidney disease with stage 3a chronic kidney disease- Primary Atherosclerosis of point hope ira coronary artery of point hope ira heart without angina pectoris Dyslipidemia, goal LDL below 70 Other and unspecified hyperlipidemia History of pulmonary embolism Personal history of pulmonary embolism Tachy-chintan syndrome (HCC) Sinoatrial node dysfunction S/P placement of cardiac pacemaker Cardiac pacemaker in situ Arthralgia of right hip Gastro-esophageal reflux disease with esophagitis, without bleeding Sinus tachycardia Other specified cardiac dysrhythmias Coronary artery disease involving point hope ira coronary artery of point hope ira heart without angina pectoris Presence of cardiac pacemaker Cardiac pacemaker in situ Palpitations HTN, goal below 140/90 Unspecified essential hypertension Hypertensive kidney disease with stage 3a chronic kidney disease- Primary Dyslipidemia, goal LDL below 70 Other and unspecified hyperlipidemia Gastro-esophageal reflux disease with esophagitis, without bleeding Atherosclerosis of point hope ira coronary artery of point hope ira heart without angina pectoris Advanced care planning/counseling discussion- Primary Other specified counseling Hypertensive kidney disease with stage 3a chronic kidney disease (HCC) History of MT (myocardial infarction) Old myocardial infarction Tachy-chintan syndrome [...] 3a chronic kidney disease- Primary Atherosclerosis of point hope ira coronary artery of point hope ira heart without angina pectoris Migraine without aura and without status migrainosus, not intractable Migraine without aura, without mention of intractable migraine without mention of status migrainosus Hypothyroidism (acquired)- Primary Unspecified hypothyroidism Sinus tachycardia Other specified cardiac dysrhythmias Tachy-chintan syndrome (HCC) Sinoatrial node dysfunction Coronary artery disease involving point hope ira coronary artery of point hope ira heart without angina pectoris Presence of cardiac pacemaker Cardiac pacemaker in situ Palpitations HTN, goal below 140/90 Unspecified essential hypertension Leg swelling Swelling of limb documented in this encounter Additional Health Concerns Infection Onset Date Last Indicated Resolved Time RSV 06/05/2024 06/05/2024 documented as of this encounter Advance Directives Documents on File Type Date Recorded Patient Marketing Assistant Retail Division Expl anation Advance Directives and Living Will [...] Agen t (per Health Care Power of Denture Processor document) [facility] Child [facility] Agen t (per Health Care Power of Denture Processor document) [email or web address] om Care Teams Amf Mechanic Relationship Specialty Start Date End Date Rafa Bergman MD [address] [place] [address] [place] [phone] PCP - General Family Medicine 04/19/21 documented as of this encounter"
--- OUTSIDE RECORDS SUMMARY | 2024-07-24 | External Medical Summary ---
Author Name Unknown Address Unknown Organization [id number]:LABORATORY [facility] - [address] [place] [address] Laboratory Report Ordering Provider Test Date Status [id number] 06/25/2024 09:25:51 Marion l Observation Date Value Abnormality Reference (Units ) Status TSH 06/25/2024 09:25:51 2.50 0.27-4.20 (uIU/mL) Final Performing Location LABORATORY [facility] - [address] [place] [address]
--- OUTSIDE RECORDS SUMMARY | 2024-07-24 | External Medical Summary ---
Author Name Unknown Address Unknown Organization [id number]:[facility] [place] [address] [place] [address] Laboratory Report Ordering Provider Test Date Status GAVIN FLORES 06/25/2024 09:25:51 Marion l Observation Date Value Abnormality Reference (Units ) Status BUN 06/25/2024 09:25:51 25 Above high normal 6-20 (mg/dL) Final Creatinine 06/25/2024 09:25:51 1.0 0.5-1.0 (mg/dL) Final Glomerular filtration rate/1.73 sq M.predicted [Volume Rate/Area] in Serum, Plasma or Blood by Creatinine-based formula (CKD-EPI) 06/25/2024 09:25:51 61 >=60 (mL/min) Final eGFR is calculated based on the CKD-EPI 2020 equation. Sodium 06/25/2024 09:25:51 146 135-146 (m mol/L) Final Potassium 06/25/2024 09:25:51 4.2 3.5-5.1 (m mol/L) Final Cl 06/25/2024 09:25:51 106 98-107 (mm ol/L) Final CO2 06/25/2024 09:25:51 28 22-32 (mmo l/L) Final Anion gap 06/25/2024 09:25:51 12 7-15 (mmol /L) Final Glucose 06/25/2024 09:25:51 71 70-120 (mg /dL) Final Calcium 06/25/2024 09:25:51 9.5 8.4-10.2 ( mg/dL) Final Performing Location [facility] [place] [address] [place] [address]
--- OUTSIDE RECORDS SUMMARY | 2024-07-24 | External Medical Summary | Summary of Care ---
Author Name Unknown Organization [facility] Address [address] [place] [facility] [place] [address] Phone [phone] Care Team Providers Care Programmer Analyst Consultant Name Role Phone Rafa Bergman MD Primary Care Provide r Reason for Visit * Reason Comments Outpatient Testing Encounter Details Date Type Department Care Team (Late st Contact Info) Description 06/25/2024 9:40 AM EDT Laboratory Laboratory [address] [place] [phone] [place] [address] Arrived Allergies Active Allergy Reactions Criticality Noted Date [...] goal LDL below 70,Coronary artery disease involving pe[place] coronary artery of pe[place] heart without angina pectoris TAKE ONE TABLET BY MOUTH IN THE MORNING 90 Tablet 3 05/25/2024 7:44 AM EST 4 Active Levothyroxine Sodium 125 MCG Oral Tablet (Levoxyl)Indicat ions:Hypothyroid ism (acquired) Take 1 Tablet by mouth daily first thing in the morning. (at least 30 min prior to breakfast or other meds) 90 Tablet 2 05/29/2024 11:01 AM EST 4 Active Vitamin B-12 1000 MCG Oral Tablet (Cyanocobalamin) Take 1 Tablet by mouth in the morning. In the morning.. 90 Tablet 1 04/14/2024 5:36 PM EST 4 Active Ondansetron HCl 4 MG [...] 2 05/06/2024 11:42 AM EST 4 Active Riboflavin 400 MG Oral Tablet Take [...] Tablet 05/14/2024 5:55 PM EST 5 Active Gabapentin 100 MG Oral Capsule (Neurontin) Take one cap three times a day 90 Capsule 1 5 Active Additional Information Patient taking differently: 300 mg Oral BID (.AM/PM), Take one cap three times a day, Reported on 06/25/2024 Spironolactone 25 MG Oral Tablet (Aldactone) Take 0.5 Tablets by mouth in the morning. 5 Active Propranolol HCl 10 MG Oral Tablet (Inderal)Indicat ions:Sinus tachycardia,Tach y-chintan syndrome (HCC),Coronary artery disease involving pe[place] coronary artery of pe[place] heart without angina pectoris,Presenc e of cardiac pacemaker,Palpit ations,HTN, goal below 140/90 Take 0.5 Tablets by mouth at bedtime. 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 source of income? 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 Not on file Not on file documented as of this encounter Plan of Treatment Upcoming Encounters Date Type Department Care Team (Late st Contact Info) Description 06/26/2024 11:30 AM EDT Office Visit Ophthalmology, [facility] [address] [place] [address] Pedro Tinsley, DO [address] [place] [address] 07/06/2024 8:40 AM EDT Office Visit Neurology [place] [address] [place] [address] Alfonso Manning MD [address] [place] [address] 07/06/2024 11:00 AM EDT [facility] [address] [place] [address] Leon Live PA-C [address] [place] [address] 07/14/2024 2:30 PM EDT Cardiac Studies Cardiology [address] [place] [address] [facility] [address] [place] [address] 07/21/2024 10:00 AM EDT Imaging Radiology [facility] [address] [place] [phone] 07/28/2024 10:00 AM EDT [facility], [facility] [address] [place] [address] Leon Live PA-C [address] [place] [address] 08/18/2024 10:20 AM EDT Laboratory Laboratory [address] [place] [phone] [address] [place] [address] 08/21/2024 3:00 PM EDT Office Visit Rheumatology [address] [place] [phone] José Miguel Cullen CRNP [address] [place] [address] [place] [address] 08/25/2024 3:30 PM EDT Office Visit Hematology/Oncology [facility] [place] [address] [facility] [place] [address] Arianna Szymanski MD [address] [facility] [place] [address] 09/11/2024 12:50 PM EDT Office Visit Dermatology, [facility] [place] [address] [place] [address] Dasha Nelson PA-C [address] [place] [address] 09/29/2024 3:10 PM EDT Office Visit Urogynecology [facility] [address] [place] [address] Quincy Garcia MD [address] [place] [address] 10/05/2024 1:30 PM EDT Office Visit Cardiology, [facility] [address] [place] [phone] Charles Ortega, [address] [place] [address] 12/30/2024 12:40 PM EDT Office Visit Family Medicine [address] [place] [phone] Irene Bowens MD [address] [place] [address] [place] [phone] Health Maintenance Due Date Last Done Comments Adult Wellness Visit 02/06/2018 02/06/2017 Depression Screening 07/17/2022 07/17/2021 COVID-19 Vaccine ( season) 2023 02/05/2022, 08/02/2021, 02/28/2021, Additional history exists Influenza Vaccine (FLU shot) (#1) 2023 04/19/2023, 01/30/2022, 12/28/2020, Additional history exists Albumin/Creatinine Ratio 02/13/2024 023, 03/21/2022, 04/19/2021, Additional history exists HbA1c 04/26/2024 04/26/2023, 03/02, 04/19/2021, Additional history exists CKD PHOS USE SMARTSET 21139 06/26/202405/31, 04/19/2021, 11/27/2019, Additional history exists DXA Scan 07/18/2024 07/18/2022, 06/30, 12/22/2019, Additional history exists GFR 12/08/2024 06/07/2024, 01/30, 11/05/2023, Additional history exists CKD HGB USE SMARTSET 61940 02/16/202502/16, 02/17/2024, 06/27/2023, Additional history exists TSH [...] D LEVEL ONCE IN A LIFETIME-USE SMARTSET# 15231 Completed 06/27/2023, 11/06/2021, 12/28/2019, Additional history exists [...] this encounter Medical Devices Implanted Type Area Weaver Needle Loom Device Identifier Shelf Expiration Date Model / Serial / Lot Lens Intraoc 21.5 - [id number] - [id number] Implanted:Qty: 1 on 05/12/2019 by Yury Brady MD at OR [facility] Right: Eye [employer] 12/30/2023 [id number] / [id number] / [id number] Lens Intraoc 22.5 - [id number] - [id number] Implanted:Qty: 1 on 04/05/2020 by Yury Brady MD at OR [facility] Left: Eye [employer]OM[employer] 09/28/2024 [id number] / [id number] / [id number] documented as of this encounter Additional Health Concerns Infection Onset Date Last Indicated Resolved Time RSV 06/05/2024 06/05/2024 documented as of this encounter Advance Directives Documents on File Type Date Recorded Patient Director Investor Relations Expl anation Advance Directives and Living Will [...] Agen t (per Health Care Power of Scalper Operator document) Guille Urban Adult Child Health Care Agen t (per Health Care Power of Scalper Operator document) [email or web address] Care Teams Programmer Analyst Consultant Relationship Specialty Start Date End Date Rafa Bergman MD [address] [place] [address] [place] [phone] PCP - General Family Medicine 04/19/21 documented as of this encounter
--- OUTSIDE RECORDS SUMMARY | 2024-07-24 | External Medical Summary | Summary of Care ---
Author Name Unknown Organization [facility] [address] [facility] [address] Phone [phone] Care Team Providers Care Sales Representative Printing Supplies Name Role Phone Rafa Bergman MD Primary Care Provide r Reason for Visit * Reason Comments Follow Up * Precert (Within 10 days (routine)) - Authorized Specialty Diagnoses / Procedures Referred By Ethan nicole Referred To Contact Ophthalmology Diagnoses Tributary (branch) retinal vein occlusion, right eye, with macular edema Procedures OH INJECTION, FARICIMAB-SVOA, 0.1 MG OH INTRAVITREAL NJX PHARMACOLOGIC AGT SPX Pedro Tinsley DO [address] [address] Phone: tel: fax: Ophthalmology, [facility] [address] [facility] [place] [address] Phone: tel: fax: Referral ID Status Reason Start Date Expiration Date V isits Requested Visits Authorized [id number] Authorized Precert 02/04/2024 03/31/2099 [id number] Encounter Details Date Type Department Care Team (Surya st Contact Info) Description 06/26/2024 11:30 AM EDT Office Visit Ophthalmology, [facility] [address] [place] [address] Pedro Tinsley DO [address] [place] [address] 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 [...] goal LDL below 70,Coronary artery disease involving [place] coronary artery of [place] heart without angina pectoris TAKE ONE TABLET [...] tachycardia,Tach y-chintan syndrome (HCC),Coronary artery disease involving [place] coronary artery of [place] heart without angina pectoris,Presenc e of cardiac [...] 01/03/2023 History of [place] (myocardial infarction) 11/27/2022 Assessment & Plan (04/16/2024 [...] of [place] heart without angina pectoris 07/08/2018 Overview (11/21/2023): [...] 09/13/2022 11/08/2023 Atherosclerosis of coronary artery of [place] heart without angina pectoris 09/10/2022 10/31/2022 Hypothyroidism [...] filter 02/28/2015 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 Date: 06/2025 documented in this encounter Plan of Treatment Upcoming Encounters Date Type Department Care Team (Late st Contact Info) Description 07/06/2024 8:40 AM EDT Office Visit Neurology [facility] [address] [facility] [place] [address] Alfonso Manning MD [address] [place] [address] 07/06/2024 11:00 AM EDT [facility] [place] [address] Leon Live PA-C [address] [place] [address] 07/14/2024 2:30 PM EDT Cardiac Studies Cardiology [address] [place] [address] [facility] [address] [place] [address] 07/21/2024 10:00 AM EDT Imaging Radiology [facility] [address] [place] [phone] 07/28/2024 10:00 AM EDT [facility], [facility] [address] [place] [address] Leon Live PA-C [address] [place] [address] 08/11/2024 1:45 PM EDT [facility] [address] [place] [phone] Pedro Tinsley, [address] [place] [address] Nurse Roscoe Leyva [address] [place] [address] Photographer Justen Leyva [address] [place] [address] 08/18/2024 10:20 AM EDT Laboratory Laboratory [address] [place] [phone] [place] [address] 08/21/2024 3:00 PM EDT Office Visit Rheumatology [address] [place] [phone] José Miguel Cullen CRNP [address] [place] [address] [place] [address] 08/25/2024 3:30 PM EDT Office Visit Hematology/Oncology [facility] [place] [address] [facility] [place] [phone] Arianna Szymanski MD [address] [place] [address] 09/11/2024 12:50 PM EDT Office Visit Dermatology, [address] [place] [address] [place] [address] Dasha Nelson PA-C [address] [place] [address] 09/29/2024 3:10 PM EDT Office Visit Urogynecology [facility] [address] [facility] [place] [phone] Quincy Garcia MD [address] [place] [address] 10/05/2024 1:30 PM EDT Office Visit Cardiology, [facility] [address] [place] [phone] Charles Ortega, [address] [place] [address] 12/30/2024 12:40 PM EDT Office Visit Family [address] [place] [phone] Irene Bowens MD [address] [place] [address] [place] [phone] Scheduled Orders Name Type Priority Associated Diagnoses [...] Additional history exists CKD PHOS USE SMARTSET 45647 06/26/2024 03/10/2023, 04/19/2021, 11/27/2019, Additional history exists DXA Scan 07/18/2024 07/18/2022, 06/30, 12/22/2019, Additional history exists GFR 12/26/2024 06/25/2024, 03/0 11/2024, 02/17/2024, Additional history exists CKD HGB USE SMARTSET 77492 02/16/202502/16, 02/17/2024, 06/27/2023, Additional history exists TSH [...] D LEVEL ONCE IN A LIFETIME-USE SMARTSET# 68747 Completed 06/27/2023, 11/06/2021, 12/28/2019, Additional history exists [...] this encounter Medical Devices Implanted Type Area Sfdc Architect Device Identifier Shelf Expiration Date Model / Serial / Lot Lens Intraoc 21.5 - [id number] - [id number] Implanted:Qty: 1 on 05/12/2019 by Yury Brady MD at OR [facility] Right: Eye [employer] 12/30/2023 [id number] / [id number] / [id number] Lens Intraoc 22.5 - [id number] - [id number] Implanted:Qty: 1 on 04/05/2020 by Yury Brady MD at OR [facility] Left: Eye BAUSCH [employer] LOMB 09/28/2024 [id number] / [id number] / [id number] documented as of this encounter Visit Diagnoses Diagnosis Hypertensive kidney disease with stage 3a chronic kidney disease- Primary Atherosclerosis of [place] coronary artery of [place] heart without angina pectoris Dyslipidemia, goal LDL below 70 Other and unspecified hyperlipidemia History of pulmonary embolism Personal history of pulmonary embolism Tachy-chintan syndrome (HCC) Sinoatrial node dysfunction S/P placement of cardiac pacemaker Cardiac pacemaker in situ Arthralgia of right hip Gastro-esophageal reflux disease with esophagitis, without bleeding Sinus tachycardia Other specified cardiac dysrhythmias Coronary artery disease involving [place] coronary artery of [place] heart without angina pectoris Presence of cardiac pacemaker Cardiac pacemaker in situ Palpitations HTN, goal below 140/90 Unspecified essential hypertension Hypertensive kidney disease with stage 3a chronic kidney disease- Primary Dyslipidemia, goal LDL below 70 Other and unspecified hyperlipidemia Gastro-esophageal reflux disease with esophagitis, without bleeding Atherosclerosis of [place] coronary artery of [place] heart without angina pectoris Advanced care planning/counseling discussion- Primary Other specified counseling Hypertensive kidney disease with stage 3a chronic kidney disease (HCC) History of [place] (myocardial infarction) Old myocardial infarction Tachy-chintan syndrome [...] 3a chronic kidney disease- Primary Atherosclerosis of [place] coronary artery of [place] heart without angina pectoris Migraine without aura [...] Documents on File Type Date Recorded Patient Aerial Photograph Interpreter Expl anation Advance Directives and Living Will [...] Agen t (per Health Care Power of Pot Feeder document) Guille Urban Adult Child Health Care Agen t (per Health Care Power of Pot Feeder document) [email or web address] Care Teams Sales Representative Printing Supplies Relationship Specialty Start Date End Date Rafa Bergman MD [address] [place] [address] [place] [address] PCP - General Family Medicine 04/19/21 documented as of this encounter
--- OUTSIDE RECORDS SUMMARY | 2024-07-24 00:01 | External Medical Summary | Summary of Care ---
Author Name Unknown Organization [facility] Address [address] [place] [address] Phone [phone] Care Team Providers Care Regional Truck Driver Name Role Phone Rafa Bergman MD Primary Care Provide r Reason for Visit * Precert (Within 10 days (routine)) - Authorized Specialty Diagnoses / Procedures Referred By Ethan nicole Referred To Contact Radiology Diagnoses Pleural effusion on left Procedures US CHEST OR PLEURAL EFFUSION IR CHEST THORACENTESIS Angela Kohli CRNP [address] [place] [address] Phone: tel: fax: Referral ID Status Reason Start Date Expiration Date V isits Requested Visits Authorized [id number] Authorized 06/08/2024 [id number] Encounter Details Date Type Department Care Team (Latest Contact Info) Description 06/16/2024 1:53 PM EDT - 06/16/2024 11:59 PM EDT Hospital Encounter Radiology, [address] [phone] Arrived Discharge Disposition: Home - Self Care Allergies Active Allergy Reactions Criticality Noted Date Comments Colchicine Diarrhea 06/16/2018 Daptomycin 01/05/2015 Shortness of breath Imipenem Edema airway High 01/05/2015 Metoprolol Low 01/23/2021 Other reaction(s): fatigue Zoledronic Acid 04/24/2012 Myalgias, fever, chills, vomiting x 2 days Sulfa Antibiotics 12/22/2002 Bactrim--itchy all over, eyes swollen documented as of this encounter (statuses as of 06/17/2024) Medications ASPIRIN 81 MG PO TABS Take [...] 1 Tablet before bedtime. 180 Tablet 3 03/26/2024 3:19 PM EST 4 Active Pantoprazole Sodium 40 MG Oral Tablet Delayed Release (Protonix) Take 1 Tablet by mouth in the morning and 1 Tablet in the evening. 90 Tablet 3 04/23/2024 8:22 AM EST 4 Active Rosuvastatin Calcium 5 MG Oral Tablet (Crestor)Indicat ions:Dyslipidemi a, goal LDL below 70,Coronary artery disease involving northwestern shoshone coronary artery of northwestern shoshone heart without angina pectoris TAKE ONE TABLET BY MOUTH IN THE MORNING 90 Tablet 3 05/25/2024 7:44 AM EST 4 Active Propranolol HCl 10 MG Oral Tablet (Inderal)Indicat ions:Sinus tachycardia,Tach y-chintan syndrome (HCC),Coronary artery disease involving northwestern shoshone coronary artery of northwestern shoshone heart without angina pectoris,Presenc e of cardiac pacemaker,Palpit ations,HTN, goal below 140/90 Take one-half Tablet by mouth in the morning and before bedtime. 90 Tablet 3 04/09/2024 7:17 PM EST 4 Active Additional Information Patient taking differently:5 mg OralHS, Reported on 03/13/2024 Levothyroxine Sodium 125 MCG Oral Tablet (Levoxyl)Indicat [...] by mouth at bedtime. 90 Tablet 3 03/28/2024 12:49 PM EST 4 Active dilTIAZem HCl ER 360 MG [...] DAY 135 Tablet 05/14/2024 5:55 PM EST Active methylPREDNISolo ne 4 MG Oral Tablet Therapy Pack (Medrol Dosepack) Take as per instructions on package. 21 Each Active Gabapentin 100 MG Oral Capsule (Neurontin) Take one cap three times a day 90 Capsule 1 Active Hospital, Clinic, or Other Facility Administered [...] as of this encounter (statuses as of 06/17/2024) Active Problems Problem Noted Date Diagnosed Date Migraine without aura and wi thout status migrainosus, not intractable 04/16/2024 Assessment & Plan (04/16/2024 4:06 PM EST): [...] - Per CKD protocol Assessment & Plan (04/16/2024 4:06 PM EST): BP stable Continue propanolol and diltiazem Assessment & Plan (01/24/2024 4:39 PM EDT): Symptomatic hypotension at times Will hold spironolactone for now, encourage compression stockings for edema Continue propanolol and verapamil Assessment & Plan (11/21/2023 5:30 PM EDT): BP stable on verapamil, aldactone, propanolol S/P angioplasty with stent 11/27/2018 Atherosclerosis of northwestern shoshone co ronary artery of northwestern shoshone heart without angina pectoris 07/08/2018 Overview (11/21/2023): history of NSTEMI status post AMIE to LAD (culprit) and RCA, 04/28/2018 Assessment & Plan (01/24/2024 4:40 PM EDT): Cardiac rehab at [facility] 2x week Assessment & Plan (11/21/2023 [...] as of this encounter (statuses as of 06/17/2024) Resolved Problems Problem Noted Date Diagnosed Date Resolved Date Purulent endophthalmitis of right eye 01/03/2023 11/08/2023 Other pulmonary embolism wit h acute cor pulmonale 10/01/2022 04/26/2023 Overview (04/26/2023): history Medical home patient encounter 09/13/2022 11/08/2023 Atherosclerosis of coronary artery of northwestern shoshone heart without angina pectoris 09/10/2022 10/31/2022 Hypothyroidism [...] filter 02/28/2015 Atherosclerotic heart diseas e of northwestern shoshone coronary artery with angina pectoris 11/2018 CKD (chronic kidney disease) stage 2, GFR 60-89 ml/min 03/12/2019 documented as of this encounter (statuses as of 06/17/2024) Immunizations Name Administration Dates Next Due COVID-19 [...] 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 Sanchez ordered by LEYDA Saavedra. Pre-procedure US showed no pleural fluid. Thoracentesis canceled at this time by Dr. Sanchez. Pt aware and verbalizes understanding. Pt escorted out of dept in stable condition. documented in this encounter Plan of Treatment Upcoming Encounters Date Type Department Care Team (Late st Contact Info) Description 06/22/2024 11:00 AM EDT Home Visit [facility], [address] [place] [address] Leon Live PA-C [address] [place] [address] 06/25/2024 9:00 AM EDT Office Visit Family Medicine [address] [place] [phone] Rafa Bergman MD [address] [place] [address] [place] [address] 06/26/2024 11:30 AM EDT Office Visit Ophthalmology, [facility] [address] [place] [address] Pedro Tinsley DO [address] [place] [address] 07/06/2024 8:40 AM EDT Office Visit Neurology [facility] [address] [place] [address] Alfonso Manning MD [address] [place] [address] 07/06/2024 11:00 AM EDT Home Visit [facility] [address] [place] [address] Leon Live PA-C [address] [place] [address] 07/14/2024 2:30 PM EDT Cardiac Studies Cardiology [address] [place] [address] [facility] [address] [place] [address] 07/21/2024 10:00 AM EDT Imaging Radiology [facility] [address] [place] [phone] 08/18/2024 10:20 AM EDT Laboratory Laboratory [address] [place] [phone] [place] [address] 08/21/2024 3:00 PM EDT Office Visit Rheumatology [address] [place] [phone] José Miguel Cullen CRNP [address] [place] [address] [place] [address] 08/25/2024 3:30 PM EDT Office Visit Hematology/Oncology [facility] Raina [place] [address] [place] [phone] Arianna Szymanski MD [address] [place] [address] 09/11/2024 12:50 PM EDT Office Visit Dermatology, Jesu Wilson [address] [place] [address] Dasha Nelson, PADelaneyC [address] [place] [address] 09/29/2024 3:10 PM EDT Office Visit Urogynecology [facility] [address] [place] [address] Quincy Garcia MD [address] [place] [address] 10/05/2024 1:30 PM EDT Office Visit Cardiology, [facility] [address] [place] [phone] Charles Ortega O, DO [address] [place] [address] Health Maintenance Due Date Last Done Comments Adult Wellness Visit 02/06/2018 02/06/2017 Depression Screening 07/17/2022 07/17/2021 COVID-19 Vaccine ( season) 2023 02/05/2022, 08/02/2021, 02/28/2021, Additional history exists Influenza Vaccine (FLU shot) (#1) 2023 04/19/2023, 01/30/2022, 12/28/2020, Additional history exists Albumin/Creatinine Ratio 02/13/2024 023, 03/21/2022, 04/19/2021, Additional history exists HbA1c 04/26/2024 04/26/2023, 03/02, 04/19/2021, Additional history exists CKD PHOS USE SMARTSET 10726 06/26/202405/31, 04/19/2021, 11/27/2019, Additional history exists DXA Scan 07/18/2024 07/18/2022, 06/30, 12/22/2019, Additional history exists GFR 12/08/2024 06/07/2024, 01/30, 11/05/2023, Additional history exists CKD HGB USE SMARTSET 24954 02/16/202502/16, 02/17/2024, 06/27/2023, Additional history exists TSH [...] D LEVEL ONCE IN A LIFETIME-USE SMARTSET# [id number] Completed 06/27/2023, 11/06/2021, 12/28/2019, Additional history exists [...] this encounter Medical Devices Implanted Type Area Unit Control Clerk Device Identifier Shelf Expiration Date Model / Serial / Lot Lens Intraoc 21.5 - [id number] - [id number] Implanted:Qty: 1 on 05/12/2019 by Yury Brady MD at OR [facility] Right: Eye [employer] 12/30/2023 [id number] / [id number] / [id number] Lens Intraoc 22.5 - [id number] - [id number] Implanted:Qty: 1 on 04/05/2020 by Yury Brady MD at OR [facility] Left: Eye [employer]OM[employer] 09/28/2024 [id number] / [id number] / [id number] documented as of this encounter Procedures Procedure Name Priority Date/Time Associated Diagnosis Comments US CHEST OR PLEURAL EFFUSION Routine 06/16/2024 3:04 PM EDT Pleural effusion on left documented in this encounter Results * US CHEST OR PLEURAL EFFUSION (06/16/2024 3:04 PM EDT) Anatomical Region Laterality Modality Chest, Body Ultrasound 06/16/2024 3:38 PM EDT Narrative 06/16/2024 3:35 PM EDT EXAM: US CHEST OR PLEURAL EFFUSION HISTORY: left pleural effusion on imaging 06/05/24 COMPARISON: None. FINDINGS: No pleural effusion on either side to allow thoracentesis IMPRESSION: No left effusion. Canceled pleurocentesis Procedure Note Roland Sanchez MD - 06/16/2024 EXAM: US CHEST OR PLEURAL EFFUSION HISTORY: left pleural effusion on imaging 06/05/24 COMPARISON: None. FINDINGS: No pleural effusion on either side to allow thoracentesis IMPRESSION: No left effusion. Canceled pleurocentesis Angela Marcelle [facility] ULTRAS[facility] Final Resu lt documented in this encounter Visit Diagnoses Diagnosis Hypertensive kidney disease with stage 3a chronic kidney disease- Primary Atherosclerosis of northwestern shoshone coronary artery of northwestern shoshone heart without angina pectoris Dyslipidemia, goal LDL below 70 Other and unspecified hyperlipidemia History of pulmonary embolism Personal history of pulmonary embolism Tachy-chintan syndrome (HCC) Sinoatrial node dysfunction S/P placement of cardiac pacemaker Cardiac pacemaker in situ Arthralgia of right hip Gastro-esophageal reflux disease with esophagitis, without bleeding Sinus tachycardia Other specified cardiac dysrhythmias Coronary artery disease involving northwestern shoshone coronary artery of northwestern shoshone heart without angina pectoris Presence of cardiac pacemaker Cardiac pacemaker in situ Palpitations HTN, goal below 140/90 Unspecified essential hypertension Hypertensive kidney disease with stage 3a chronic kidney disease- Primary Dyslipidemia, goal LDL below 70 Other and unspecified hyperlipidemia Gastro-esophageal reflux disease with esophagitis, without bleeding Atherosclerosis of northwestern shoshone coronary artery of northwestern shoshone heart without angina pectoris Advanced care planning/counseling [...] 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 Pleural effusion on left Unspecified pleural effusion documented in this encounter Additional Health Concerns Infection Onset Date Last Indicated Resolved Time RSV 06/05/2024 06/05/2024 documented as of this encounter Advance Directives Documents on File Type Date Recorded Patient Benefits Technician Expl anation Advance Directives and Living [...] Agen t (per Health Care Power of Burglar Alarm Inspector document) Guille Urban Adult Child Health Care Agen t (per Health Care Power of Burglar Alarm Inspector document) [email or web address] om Care Teams Regional Truck Driver Relationship Specialty Start Date End Date Rafa Bergman MD [address] [place] [address] [place] [address] PCP - General Family Medicine 04/19/21 documented as of this encounter
--- OUTSIDE RECORDS SUMMARY | 2024-07-24 00:01 | External Medical Summary | Summary of Care ---
Author Name Unknown Organization [facility] Address [address] [place] [facility] [place] [address] Phone [phone] Care Team Providers Care Top Taper Machine Name Role Phone Rafa Bergman MD Primary Care Provide r Reason for Visit * Reason Onset Date Comments [facility]: Maintenance 06/17/2024 Encounter Details Date Type Department Care Team (Late st Contact Info) Description 06/17/2024 Telephone [facility], [facility] [address] [facility] [place] [address] Azeb Ortiz RN [address] [facility] [place] [address] [facility]: Maintenance Allergies Active Allergy [...] goal LDL below 70,Coronary artery disease involving nikolski coronary artery of nikolski heart without angina pectoris TAKE ONE TABLET BY MOUTH IN THE MORNING 90 Tablet 3 05/25/2024 7:44 AM EST 4 Active Propranolol HCl 10 MG Oral Tablet (Inderal)Indicat ions:Sinus tachycardia,Tach y-chintan syndrome (HCC),Coronary artery disease involving nikolski coronary artery of nikolski heart without angina pectoris,Presenc e of cardiac [...] Tablet 05/14/2024 5:55 PM EST 5 Active methylPREDNISolo ne 4 MG Oral Tablet Therapy Pack (Medrol Dosepack) Take as per instructions on package. 21 Each 5 Active Gabapentin 100 MG Oral Capsule [...] 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 History of NV (myocardial infarction) 11/27/2022 Assessment & Plan (04/16/2024 [...] S/P angioplasty with stent 11/27/2018 Atherosclerosis of nikolski co ronary artery of nikolski heart without angina pectoris 07/08/2018 Overview (11/21/2023): history of NSTEMI status post AMIE to LAD (culprit) and RCA, 04/28/2018 Assessment & Plan (01/24/2024 4:40 PM EDT): Cardiac rehab at [facility] 2x week Assessment & Plan (11/21/2023 5:32 [...] 09/13/2022 11/08/2023 Atherosclerosis of coronary artery of nikolski heart without angina pectoris 09/10/2022 10/31/2022 Hypothyroidism [...] filter 02/28/2015 Atherosclerotic heart diseas e of nikolski coronary artery with angina pectoris 11/2018 CKD [...] 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 Effusion may have been secondary to RSV infection. Her last BNP looked ok. Last echo looked ok, but was a little more than a year ago and probably wouldn't hurt to have PCP update due to recent effusion. I would recommend to monitor weight for now and notify us if she would notice weight gain, increased edema, or increased SOB again. Outgoing call to the pt and read the message to her. She does not have a scale. She is willing to have CHM. She verbalized understanding of same. Current Health Enrollment Screening Contacted patient regarding the following: As part of your enrollment, your Care Team would like toprovide you with tools for us to monitor important vital signs like your oxygen levels, your heart rate, respiration rate, your skin temperature, your blood pressure, your weight, and how much you'removing. These tools will help to manage early changes in both acute and chronic conditions. Outcome of Enrollment Screening: Agreeable to Enroll: Device(s): Continuous Monitoring Device and Scale Enrollment Diagnosis: Hypertension Method of Delivery: Vendor Supplied Azeb BELTRAN RN [facility] Intake Nurse Navigator Triage * Telephone Encounter - Azeb Ortiz RN - 06/17/2024 9:32 AM EDT Images from the original note were not included. Received call from the pt who states that she had been told that she had fluid on her lung so she was sent to have an IR procedure yesterday to remove the fluid. Rehana states that however, she had the pre procedure US and there was no fluid so the procedure wascanceled. She had been receiving IV Lasix at home from [facility] and then she was taking Lasix 20 mg 2 tabs. Rehana states that she is "breathing good. The cough is almost gone. I am 80% better". She states that she is 'just tired'. Rehana is calling to inquire if she should continue to take the Lasix? And if so, what dose and how often? Advised will send to Provider to inquire. Azeb BELTRAN, CHRISTINA [facility] Intake Nurse Navigator Triage documented in this encounter Plan of Treatment Upcoming Encounters Date Type Department Care Team (Late st Contact Info) Description 06/22/2024 11:00 AM EDT Home Visit [facility], [facility] [address] [place] [address] Leon Live PA-C [address] [place] [address] 06/25/2024 9:00 AM EDT Office Visit Family Medicine [address] [place] [phone] Rafa Bergman MD [address] [place] [address] [place] [address] 06/26/2024 11:30 AM EDT Office Visit Ophthalmology, [facility] [address] [place] [address] Pedro Tinsley DO [address] [place] [address] 07/06/2024 8:40 AM EDT Office Visit Neurology [facility] [address] [place] [address] Alfonso Manning MD [address] [facility] [place] [address] 07/06/2024 11:00 AM EDT [facility] Visit [facility], [facility] [address] [place] [address] Leon Live PA-C [address] [place] [address] 07/14/2024 2:30 PM EDT Cardiac Studies Cardiology [address] [place] [address] [facility] [address] [place] [address] 07/21/2024 10:00 AM EDT Imaging Radiology [facility] [address] [place] [phone] 08/18/2024 10:20 AM EDT Laboratory Laboratory [address] [place] [phone] [place] [address] 08/21/2024 3:00 PM EDT Office Visit Rheumatology [address] [place] [phone] José Miguel Cullen CRNP [address] [place] [address] [place] [address] 08/25/2024 3:30 PM EDT Office Visit Hematology/Oncology [facility] Raina [place] [address] [place] [phone] Arianna Szymanski MD [address] [place] [address] 09/11/2024 12:50 PM EDT Office Visit Dermatology, Jesu Wilson [address] [facility] [address] [place] [address] Dasha Nelson PA-C [address] [place] [address] 09/29/2024 3:10 PM EDT Office Visit Urogynecology [facility] [address] [place] [address] Quincy Garcia MD [address] [place] [address] 10/05/2024 1:30 PM EDT Office Visit Cardiology, [facility] [address] [place] [phone] Charles Ortega O, DO [address] [place] [phone] Health Maintenance Due Date Last Done Comments Adult Wellness Visit 02/06/2018 02/06/2017 Depression Screening 07/17/2022 07/17/2021 COVID-19 Vaccine ( season) 2023 02/05/2022, 08/02/2021, 02/28/2021, Additional history exists Influenza Vaccine (FLU shot) (#1) 2023 04/19/2023, 01/30/2022, 12/28/2020, Additional history exists Albumin/Creatinine Ratio 02/13/2024 023, 03/21/2022, 04/19/2021, Additional history exists HbA1c 04/26/2024 04/26/2023, 03/02, 04/19/2021, Additional history exists CKD PHOS USE SMARTSET 24391 06/26/202405/31, 04/19/2021, 11/27/2019, Additional history exists DXA Scan 07/18/2024 07/18/2022, 06/30, 12/22/2019, Additional history exists GFR 12/08/2024 06/07/2024, 01/30, 11/05/2023, Additional history exists CKD HGB USE SMARTSET 86839 02/16/202502/16, 02/17/2024, 06/27/2023, Additional history exists TSH [...] D LEVEL ONCE IN A LIFETIME-USE SMARTSET# [id number] Completed 06/27/2023, 11/06/2021, 12/28/2019, Additional history exists [...] this encounter Medical Devices Implanted Type Area Software Applications Developer Device Identifier Shelf Expiration Date Model / Serial / Lot Lens Intraoc 21.5 - [id number] - [id number] Implanted:Qty: 1 on 05/12/2019 by Yury Brady MD at OR [facility] Right: Eye [employer] 12/30/2023 [id number] / [id number] / [id number] Lens Intraoc 22.5 - [id number] - [id number] Implanted:Qty: 1 on 04/05/2020 by Yury Brady MD at OR [facility] Left: Eye [employer]OMB 09/28/2024 [id number] / [id number] / [id number] documented as of this encounter Visit Diagnoses Diagnosis Hypertensive kidney disease with stage 3a chronic kidney disease- Primary Atherosclerosis of nikolski coronary artery of nikolski heart without angina pectoris Dyslipidemia, goal LDL below 70 Other and unspecified hyperlipidemia History of pulmonary embolism Personal history of pulmonary embolism Tachy-chintan syndrome (HCC) Sinoatrial node dysfunction S/P placement of cardiac pacemaker Cardiac pacemaker in situ Arthralgia of right hip Gastro-esophageal reflux disease with esophagitis, without bleeding Sinus tachycardia Other specified cardiac dysrhythmias Coronary artery disease involving nikolski coronary artery of nikolski heart without angina pectoris Presence of cardiac pacemaker Cardiac pacemaker in situ Palpitations HTN, goal below 140/90 Unspecified essential hypertension Hypertensive kidney disease with stage 3a chronic kidney disease- Primary Dyslipidemia, goal LDL below 70 Other and unspecified hyperlipidemia Gastro-esophageal reflux disease with esophagitis, without bleeding Atherosclerosis of nikolski coronary artery of nikolski heart without angina pectoris Advanced care planning/counseling discussion- Primary Other specified counseling Hypertensive kidney disease with stage 3a chronic kidney disease (HCC) History of NV (myocardial infarction) Old myocardial infarction Tachy-chintan syndrome (HCC) Sinoatrial node dysfunction Dyslipidemia, goal LDL below 70 Other and unspecified hyperlipidemia Migraine without aura and without status migrainosus, not intractable Migraine without aura, without mention of intractable migraine without mention of status migrainosus Hypothyroidism (acquired) Unspecified hypothyroidism Senile osteoporosis 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 Pleural effusion on left- Primary Unspecified pleural effusion documented in this encounter Additional Health Concerns Infection Onset Date Last Indicated Resolved Time RSV 06/05/2024 06/05/2024 documented as of this encounter Advance Directives Documents on File Type Date Recorded Patient 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
--- OUTSIDE RECORDS SUMMARY | 2024-07-24 00:01 | External Medical Summary | Summary of Care ---
Author Name Unknown Organization [facility] Address [address] [place] [place] [address] Phone [phone] Care Team Providers Care Gaming Worker Name Role Phone Rafa Bergman MD Primary Care Provide r Encounter Details Date Type Department Care Team (Late st Contact Info) Description 06/23/2024 10:00 AM EDT [facility] [address] [place] [address] Leon Live PA-C [address] [place] [address] Hypertensive kidney disease with stage 3a chronic kidney disease*; Atherosclerosis of napaimute coronary artery of napaimute heart without angina pectoris; Migraine without aura and without status migrainosus, not intractable Allergies Active Allergy Reactions Criticality Noted Date Comments Colchicine Diarrhea 06/16/2018 Daptomycin 01/05/2015 Shortness of breath Imipenem Edema airway High 01/05/2015 Metoprolol Low 01/23/2021 Other reaction(s): fatigue Zoledronic Acid 04/24/2012 Myalgias, fever, chills, vomiting x 2 days Sulfa Antibiotics 12/22/2002 Bactrim--itchy all over, eyes swollen documented as of this encounter (statuses as of 06/24/2024) Medications ASPIRIN 81 MG PO TABS Take [...] goal LDL below 70,Coronary artery disease involving napaimute coronary artery of napaimute heart without angina pectoris TAKE ONE TABLET BY MOUTH IN THE MORNING 90 Tablet 3 05/25/2024 7:44 AM EST 4 Active Propranolol HCl 10 MG Oral Tablet (Inderal)Indicat ions:Sinus tachycardia,Tach y-chintan syndrome (HCC),Coronary artery disease involving napaimute coronary artery of napaimute heart without angina pectoris,Presenc e of cardiac [...] times a day 90 Capsule 1 Active Spironolactone 25 MG Oral Tablet (Aldactone) Take 0.5 Tablets by mouth in the morning. Active Hospital, Clinic, or Other Facility Administered [...] as of this encounter (statuses as of 06/24/2024) Active Problems Problem Noted Date Diagnosed Date [...] 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 History of [place] (myocardial infarction) 11/27/2022 Assessment & Plan (04/16/2024 [...] S/P angioplasty with stent 11/27/2018 Atherosclerosis of napaimute co ronary artery of napaimute heart without angina pectoris 07/08/2018 Overview (11/21/2023): history of NSTEMI status post AMIE to LAD (culprit) and RCA, 04/28/2018 Assessment & Plan (06/23/2024 3:37 PM EDT): Follows with cardiology Continue statin Assessment & Plan (01/24/2024 4:40 PM EDT): Cardiac rehab at [facility] 2x week Assessment & Plan (11/21/2023 5:32 [...] as of this encounter (statuses as of 06/24/2024) Resolved Problems Problem Noted Date Diagnosed Date Resolved Date Purulent endophthalmitis of right eye 01/03/2023 11/08/2023 Other pulmonary embolism wit h acute cor pulmonale 10/01/2022 04/26/2023 Overview (04/26/2023): history Medical home patient encounter 09/13/2022 11/08/2023 Atherosclerosis of coronary artery of napaimute heart without angina pectoris 09/10/2022 10/31/2022 Hypothyroidism [...] of inactive term Intradermal Nevus,right upper arm /11/12/2001 09/15/2013 new lesion- rt shoulder 11/03/200108/30 Prolapse [...] filter 02/28/2015 Atherosclerotic heart diseas e of napaimute coronary artery with angina pectoris 11/2018 CKD (chronic kidney disease) stage 2, GFR 60-89 ml/min 03/12/2019 documented as of this encounter (statuses as of 06/24/2024) Immunizations Name Administration Dates Next Due COVID-19 [...] 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 [facility] Provider Visit Assessment and Plan Assessment & Plan Hypertensive kidney disease with stage 3a chronic kidney disease BP stable, monitoring with current health Continue diltiazem, propanolol Recently restarted spironolactone 12.5mg daily, monitor BMP Atherosclerosis of napaimute coronary artery of napaimute heart without angina pectoris Follows with cardiology Continue statin Migraine without aura and without status migrainosus, not intractable Gabapentin bid with improvement of symptoms Additional Medical Decision Making: Patient has in-law suit in home of daughter and ERIN Independent with ADLs Ambulates independently Manages own medications Appears recovered overall form recent RSV infection with pleural effusion Continue to monitor closely with use of RPM Scheduled appointments in the next 60 days: Future Appointments-next 60 days Date/Time Provider Specialty Dept Phone 04/16/2024 11:00 AM Leon Live PA-C [facility] [phone] 05/05/2024 2:30 PM Olinda Briggs RN [facility] [phone] 05/07/2024 3:00 PM Pedro Tinsley DO Ophthalmology [phone] 05/12/2024 1:00 PM (Arrive by 12:45 PM) Pricila Puga CRNP Cardiology [phone] 05/18/2024 11:20 AM (Arrive by 11:05 AM) Alfonso Manning MD Neurology [phone] 06/25/2024 9:00 AM (Arrive by 8:45 AM) Rafa Bergman MD Family Medicine [phone] 07/21/2024 10:00 AM [facility] Radiology [phone] 08/18/2024 10:20 AM [facility] [phone] 08/21/2024 3:00 PM (Arrive by 2:45 PM) José Miguel Cullen CRNP Rheumatology [phone] 08/25/2024 3:30 PM (Arrive by 3:15 PM) Arianna Szymanski MD Hematology Oncology [phone] 09/11/2024 12:50 PM (Arrive by 12:35 PM) Dasha Nelson PA-C Dermatology [phone] 10/05/2024 1:30 PM (Arrive by 1:15 PM) Charles Ortega DO Cardiology [phone] A total of 30 minutes was spent face to face (via video-based telemedicine if designated as a telemedicine visit) Subjective Subjective Is this a Telemedicine Visit? No, this is an Home Visit. Reason For [facility] Visit: Follow-Up Current Concerns: Rehana Moran is a 79 year old female seen today for a [facility] provider visit. 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 Today's concerns are: Recent RSV infection followed by pleural effusion Treated with IV lasix followed by oral lasix Was scheduled for thoracentesis, but at time of procedure effusion had resolved Today she reports her breathing is 99% back to baseline Occasional cough, but significantly improved from last week Denies any SOB at rest Denies fever/chills Denies chest pain/palpitations Set up with current health monitoring scale, bp cuff, pulse ox and monitors regularly Has been working with neurology on gabapentin for headaches Currently taking twice daily with relief of symptoms At tid, noticed increased leg edema Additional Current Outpatient Medications Medication Sig Dispense Refill [...] MOUTH IN THE MORNING 90 Tablet 3 Propranolol HCl 10 MG Oral Tablet (Inderal) Take one-half Tablet by mouth in the morning and beforebedtime. (Patient taking differently: Take 0.5 Tablets by mouth at bedtime.) 90 Tablet 3 Levothyroxine Sodium 125 MCG [...] BY MOUTH EVERY DAY 135 Tablet 0 methylPREDNISolone 4 MG Oral Tablet Therapy Pack (Medrol Dosepack) Take as per instructions on package. 21 Each 0 Gabapentin 100 MG Oral Capsule (Neurontin) Take one cap three times a day 90 Capsule 1 Current Facility-Administered Medications Medication Dose Route Frequency Provider Last Rate Last Admin ROPivacaine (Naropin) inj 1.5 mg 1.5 mg Injection PRN 1.5 mg at 05/07/24 1513 Aflibercept (Eylea) intraviteal prefilled syringe 2 mg 2 mg Intravitreal PRN 2 mg at 02/04/24 1138 Faricimab-svoa (Vabysmo) prefilled syringe inj 6 mg 6 mg Intravitreal PRN 6 mg at 05/07/24 1513 I have reviewed the following results: TSH Lab Results Component Value Date/Time LEFT VENTRICULAR EJECTION FRACTION 55 01/24/2022 11:37 AM Objective Objective There were no vitals filed for this visit. Last Weights: Wt Readings from Last 3 Encounters: 03/13/24 74.8 kg (164 lb 12.8 oz) 02/25/24 74.2 kg (163 lb 9.6 oz) 02/24/24 74.7 kg (164 lb 9.6 oz) Last BPs: BP Readings from Last 4 Encounters: 06/12/24 122/68 06/08/24 138/80 06/07/24 118/62 06/06/24 118/68 General: alert and no distress Neuro: alert & oriented x 3 with fluent speech Heart: regular rate & rhythm and no murmur Lungs: lungs clear to auscultation, no wheezing, no rales Abdomen: non-tender and normal bowel sounds Ext: trace pedal edema documented in this encounter Miscellaneous Notes * Assessment & Plan Note - Leon Live PA-C - 06/23/2024 3:37 PM EDT Associated Problem(s): Hypertensive kidney disease with stage 3a chronic kidney disease BP stable, monitoring with current health Continue diltiazem, propanolol Recently restarted spironolactone 12.5mg daily, monitor BMP * Assessment & Plan Note - Leon Live PA-C - 06/23/2024 3:37 PM EDT Associated Problem(s): Atherosclerosis of napaimute coronary artery of napaimute heart without angina pectoris Follows with cardiology Continue statin * Assessment & Plan Note - Leon Live PA-C - 06/23/2024 3:37 PM EDT Associated Problem(s): Migraine without aura and without status migrainosus, not intractable Gabapentin bid with improvement of symptoms documented in this encounter Plan of Treatment Upcoming Encounters Date Type Department Care Team (Late st Contact Info) Description 06/25/2024 9:00 AM EDT Office Visit Family Medicine [address] [place] [phone] Rafa Bergman MD [address] [place] [address] [place] [address] 06/26/2024 11:30 AM EDT Office Visit Ophthalmology, [facility] [address] [place] [address] Pedro Tinsley, [address] [place] [address] 07/06/2024 8:40 AM EDT Office Visit Neurology [facility] [address] [place] [address] Alfonso Manning MD [address] [place] [address] 07/06/2024 11:00 AM EDT [facility] [address] [place] [address] Leon Liev PA-C [address] [place] [address] 07/14/2024 2:30 PM EDT Cardiac Studies Cardiology [address] [place] [address] [facility] [address] [place] [address] 07/21/2024 10:00 AM EDT Imaging Radiology [facility] [address] [place] [phone] 07/28/2024 10:00 AM EDT Home Visit [facility] [place] [facility] [address] [place] [address] Leon Live PA-C [address] [place] [address] 08/18/2024 10:20 AM EDT Laboratory Laboratory [address] [place] [phone] [place] [address] 08/21/2024 3:00 PM EDT Office Visit Rheumatology [address] [place] [phone] José Miguel Cullen CRNP [address] [place] [address] [place] [address] 08/25/2024 3:30 PM EDT Office Visit Hematology/Oncology [facility] [address] [facility] [place] [phone] Arianna Szymanski MD [address] [facility] [place] [address] 09/11/2024 12:50 PM EDT Office Visit Dermatology, [facility] Wilson [address] [facility] [address] [place] [address] Dasha Nelson PA-C [address] [place] [address] 09/29/2024 3:10 PM EDT Office Visit Urogynecology [facility] [address] [place] [address] Quincy Garcia MD [address] [place] [address] 10/05/2024 1:30 PM EDT Office Visit Cardiology, [facility] [address] [place] [phone] Charles Ortega DO [address] [place] [address] Health Maintenance Due Date Last Done Comments Adult Wellness Visit 02/06/2018 02/06/2017 Depression Screening 07/17/2022 07/17/2021 COVID-19 Vaccine ( season) 2023 02/05/2022, 08/02/2021, 02/28/2021, Additional history exists Influenza Vaccine (FLU shot) (#1) 2023 04/19/2023, 01/30/2022, 12/28/2020, Additional history exists Albumin/Creatinine Ratio 02/13/2024 023, 03/21/2022, 04/19/2021, Additional history exists HbA1c 04/26/2024 04/26/2023, 03/02, 04/19/2021, Additional history exists CKD PHOS USE SMARTSET 33697 06/26/202405/31, 04/19/2021, 11/27/2019, Additional history exists DXA Scan 07/18/2024 07/18/2022, 06/30, 12/22/2019, Additional history exists GFR 12/08/2024 06/07/2024, 01/30, 11/05/2023, Additional history exists CKD HGB USE SMARTSET 88586 02/16/202502/16, 02/17/2024, 06/27/2023, Additional history exists TSH [...] D LEVEL ONCE IN A LIFETIME-USE SMARTSET# 16082 Completed 06/27/2023, 11/06/2021, 12/28/2019, Additional history exists [...] this encounter Medical Devices Implanted Type Area Document Imaging Manager Device Identifier Shelf Expiration Date Model / Serial / Lot Lens Intraoc 21.5 - [id number] - [id number] Implanted:Qty: 1 on 05/12/2019 by Yury Brady MD at OR [facility] Right: Eye [employer] 12/30/2023 [id number] / [id number] / [id number] Lens Intraoc 22.5 - [id number] - [id number] Implanted:Qty: 1 on 04/05/2020 by Yury Brady MD at OR [facility] Left: Eye [employer] 09/28/2024 [id number] / [id number] / [id number] documented as of this encounter Visit Diagnoses Diagnosis Hypertensive kidney disease with stage 3a chronic kidney disease- Primary Atherosclerosis of napaimute coronary artery of napaimute heart without angina pectoris Dyslipidemia, goal LDL below 70 Other and unspecified hyperlipidemia History of pulmonary embolism Personal history of pulmonary embolism Tachy-chintan syndrome (HCC) Sinoatrial node dysfunction S/P placement of cardiac pacemaker Cardiac pacemaker in situ Arthralgia of right hip Gastro-esophageal reflux disease with esophagitis, without bleeding Sinus tachycardia Other specified cardiac dysrhythmias Coronary artery disease involving napaimute coronary artery of napaimute heart without angina pectoris Presence of cardiac pacemaker Cardiac pacemaker in situ Palpitations HTN, goal below 140/90 Unspecified essential hypertension Hypertensive kidney disease with stage 3a chronic kidney disease- Primary Dyslipidemia, goal LDL below 70 Other and unspecified hyperlipidemia Gastro-esophageal reflux disease with esophagitis, without bleeding Atherosclerosis of napaimute coronary artery of napaimute heart without angina pectoris Advanced care planning/counseling discussion- Primary Other specified counseling Hypertensive kidney disease with stage 3a chronic kidney disease (HCC) History of NC (myocardial infarction) Old myocardial infarction Tachy-chintan syndrome [...] 3a chronic kidney disease- Primary Atherosclerosis of napaimute coronary artery of napaimute heart without angina pectoris Migraine without aura and without status migrainosus, not intractable Migraine without aura, without mention of intractable migraine without mention of status migrainosus documented in this encounter Additional Health Concerns Infection Onset Date Last Indicated Resolved Time RSV 06/05/2024 06/05/2024 documented as of this encounter Advance Directives Documents on File Type Date Recorded 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
--- OUTSIDE RECORDS SUMMARY | 2024-07-24 00:01 | External Medical Summary | Summary of Care ---
Author Name Unknown Organization [facility] Address [address] [place] [place] [address] Phone [phone] Care Team Providers Care Pearl Cutter Name Role Phone Rafa Bergman MD Primary Care Provide r Reason for Visit * Reason Onset Date Comments [facility]: Maintenance 06/17/2024 Encounter Details Date Type Department Care Team (Late st Contact Info) Description 06/17/2024 Telephone [facility] [address] [facility] [place] [address] Azeb Em RN [address] [facility] [place] [address] [facility]: Maintenance Allergies Active Allergy [...] goal LDL below 70,Coronary artery disease involving chilkat coronary artery of chilkat heart without angina pectoris TAKE ONE TABLET BY MOUTH IN THE MORNING 90 Tablet 3 05/25/2024 7:44 AM EST 4 Active Propranolol HCl 10 MG Oral Tablet (Inderal)Indicat ions:Sinus tachycardia,Tach y-chintan syndrome (HCC),Coronary artery disease involving chilkat coronary artery of chilkat heart without angina pectoris,Presenc e of cardiac [...] 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 History of [place] (myocardial infarction) 11/27/2022 Assessment & Plan (04/16/2024 [...] S/P angioplasty with stent 11/27/2018 Atherosclerosis of chilkat co ronary artery of chilkat heart without angina pectoris 07/08/2018 Overview (11/21/2023): history of NSTEMI status post AMIE to LAD (culprit) and RCA, 04/28/2018 Assessment & Plan (01/24/2024 4:40 PM EDT): Cardiac rehab at [facility] 2x week Assessment & [...] 09/13/2022 11/08/2023 Atherosclerosis of coronary artery of chilkat heart without angina pectoris 09/10/2022 10/31/2022 Hypothyroidism [...] filter 02/28/2015 Atherosclerotic heart diseas e of chilkat coronary artery with angina pectoris 11/2018 CKD [...] Not on file 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 Reahna states that she is "breathing good. The cough is almost gone. I am 80% better". She states that she is 'just tired'. Rehana is calling to inquire if she should continue to take the Lasix? And if so, what dose and how often? Advised will send to Provider to inquire. Azeb BELTRAN, RN [facility] Intake Nurse Navigator Triage documented in this encounter Plan of Treatment Upcoming Encounters Date Type Department Care Team (Late st Contact Info) Description 06/22/2024 11:00 AM EDT Home Visit [facility] [address] [place] [address] Leon Live PA-C [address] [place] [address] 06/25/2024 9:00 AM EDT Office Visit Family Medicine [address] [place] [phone] Rafa Bergman MD [address] [place] [address] [place] [address] 06/26/2024 11:30 AM EDT Office Visit Ophthalmology, [facility] [address] [place] [address] Pedro Tinsley DO [address] [place] [address] 07/06/2024 8:40 AM EDT Office Visit Neurology [facility] [address] [facility] [place] [address] Alfonso Manning MD [address] [place] [address] 07/06/2024 11:00 AM EDT Home Visit [facility] [address] [place] [address] Leon Live PA-C [address] [place] [address] 07/14/2024 2:30 PM EDT Cardiac Studies Cardiology [address] [place] [address] [facility] [address] [place] [address] 07/21/2024 10:00 AM EDT Imaging Radiology [facility] [address] [phone] 08/18/2024 10:20 AM EDT Laboratory Laboratory [address] [place] [phone] [place] [address] [place] [address] 08/21/2024 3:00 PM EDT Office Visit Rheumatology [address] [place] [phone] José Miguel Cullen CRNP [address] [place] [address] [place] [address] 08/25/2024 3:30 PM EDT Office Visit Hematology/Oncology [facility] [address] [place] [phone] Arianna Szymanski MD [address] [place] [address] 09/11/2024 12:50 PM EDT Office Visit Dermatology, Jesu Wilson [address] [place] [address] Dasha Nelson, PADelaneyC [address] [place] [address] 09/29/2024 3:10 PM EDT Office Visit Urogynecology [facility] [address] [place] [address] Quincy Garcia MD [address] [place] [address] 10/05/2024 1:30 PM EDT Office Visit Cardiology, [facility] [address] [place] [address] Charles Ortega O, DO [address] [place] [address] Health Maintenance Due Date Last Done Comments Adult Wellness Visit 02/06/2018 02/06/2017 Depression Screening 07/17/2022 07/17/2021 COVID-19 Vaccine ( season) 2023 02/05/2022, 08/02/2021, 02/28/2021, Additional history exists Influenza Vaccine (FLU shot) (#1) 2023 04/19/2023, 01/30/2022, 12/28/2020, Additional history exists Albumin/Creatinine Ratio 02/13/2024 023, 03/21/2022, 04/19/2021, Additional history exists HbA1c 04/26/2024 04/26/2023, 03/02, 04/19/2021, Additional history exists CKD PHOS USE SMARTSET 85879 06/26/202405/31, 04/19/2021, 11/27/2019, Additional history exists DXA Scan 07/18/2024 07/18/2022, 06/30, 12/22/2019, Additional history exists GFR 12/08/2024 06/07/2024, 01/30, 11/05/2023, Additional history exists CKD HGB USE SMARTSET 15893 02/16/202502/16, 02/17/2024, 06/27/2023, Additional history exists TSH 04/24/2025 04/24/2024, 01/0 10/2024, 11/15/2023, Additional history exists DTap/Tdap Vaccines (3 - Td or Tdap) 09/30/2033 10/01/2023, 11/03/2007 Hepatitis B Vaccine Completed 03/18/2009, 06/14/2008, 05/12/2008 Pneumococcal Vaccine: 50+ Years Completed 03/28/2015, 03/20/2010, 11/15/2004 RETIRED - COLONOSCOPY-EVERY 5 YRS AGES 18-100 Discontinued 02/27/2017, 02/27/2017, 10/17/2004 Zoster Vaccines Completed 06/12/2021, 02/01, 11/04/2012 VITAMIN D LEVEL ONCE IN A LIFETIME-USE SMARTSET# [id number] Completed 06/27/2023, 11/06/2021, 12/28/2019, Additional history exists [...] encounter Medical Devices Implanted Type Area Clinical Massage Therapist Device Identifier Shelf Expiration Date Model / Serial / Lot Lens Intraoc 21.5 - [id number] - [id number] Implanted:Qty: 1 on 05/12/2019 by Yury Brady MD at OR [facility] Right: Eye [employer] 12/30/2023 [id number] / [id number] / [id number] Lens Intraoc 22.5 - [id number] - [id number] Implanted:Qty: 1 on 04/05/2020 by Yury Brady MD at OR [facility] Left: Eye [employer] 09/28/2024 [id number] / [id number] / [id number] documented as of this encounter Additional Health Concerns Infection Onset Date Last Indicated Resolved Time RSV 06/05/2024 06/05/2024 documented as of this encounter Advance Directives Documents on File Type Date Recorded 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
--- OUTSIDE RECORDS SUMMARY | 2024-07-24 00:02 | External Medical Summary | Summary of Care ---
Author Name Unknown Organization [facility] Address [address] [place] [address] Phone [phone] Care Team Providers Care Apprentice Plumber Name Role Phone Rafa Bergman MD Primary Care Provide r Reason for Visit * Reason Onset Date Comments Scheduling 06/09/2024 Encounter Details Date Type Department Care Team (Late st Contact Info) Description 06/09/2024 Telephone [facility] [address] [place] [address] Angela Kohli CRNP [address] [place] [address] Scheduling Allergies Active Allergy Reactions Criticality Noted Date Comments Colchicine Diarrhea 06/16/2018 Daptomycin 01/05/2015 Shortness of breath Imipenem Edema airway High 01/05/2015 Metoprolol Low 01/23/2021 Other reaction(s): fatigue Zoledronic Acid 04/24/2012 Myalgias, fever, chills, vomiting x 2 days Sulfa Antibiotics 12/22/2002 Bactrim--itchy all over, eyes swollen documented as of this encounter (statuses as of 06/15/2024) Medications ASPIRIN 81 MG PO TABS Take [...] 180 Tablet 3 03/26/2024 3:19 PM EST 01/09/20 24 Active Pantoprazole Sodium 40 MG Oral Tablet Delayed Release (Protonix) Take 1 Tablet by mouth in the morning and 1 Tablet in the evening. 90 Tablet 3 04/23/2024 8:22 AM EST 01/09/20 24 Active Rosuvastatin Calcium 5 MG Oral Tablet (Crestor)Indicat ions:Dyslipidemi a, goal LDL below 70,Coronary artery disease involving rincon coronary artery of rincon heart without angina pectoris TAKE ONE TABLET BY MOUTH IN THE MORNING 90 Tablet 3 05/25/2024 7:44 AM EST 01/10/20 24 Active Propranolol HCl 10 MG Oral Tablet (Inderal)Indicat ions:Sinus tachycardia,Tach y-chintan syndrome (HCC),Coronary artery disease involving rincon coronary artery of rincon heart without angina pectoris,Presenc e of cardiac pacemaker,Palpit ations,HTN, goal below 140/90 Take one-half Tablet by mouth in the morning and before bedtime. 90 Tablet 3 04/09/2024 7:17 PM EST 01/10/20 24 Active Additional Information Patient taking differently:5 mg [...] 90 Tablet 3 03/28/2024 12:49 PM EST 01/24/20 24 Active dilTIAZem HCl ER 360 [...] 04/17/2024 1:21 PM EST 04/13/19 25 Active Gabapentin 100 MG Oral Capsule (Neurontin) Take one cap at bedtime for a week then one cap in the morning and at bedtime for a week and one cap three times a day 90 Capsule 04/20/19 25 Active Allopurinol 300 MG Oral Tablet (Zyloprim) TAKE 1 & 1/2 TABLETS BY MOUTH EVERY DAY 135 Tablet 05/14/2024 5:55 PM EST 05/11/19 25 Active methylPREDNISolo ne 4 MG Oral Tablet Therapy Pack (Medrol Dosepack) Take as per instructions on package. 21 Each 06/05/19 25 Active levoFLOXacin 750 MG Oral Tablet Take 1 Tablet by mouth every other day for 10 days. until gone. 5 Tablet 06/05/19 25 025 Hospital, Clinic, or Other Facility Administered Medication [...] as of this encounter (statuses as of 06/15/2024) Active Problems Problem Noted Date Diagnosed Date [...] S/P angioplasty with stent 11/27/2018 Atherosclerosis of rincon co ronary artery of rincon heart without angina pectoris 07/08/2018 Overview (11/21/2023): history of NSTEMI status post AMIE to LAD (culprit) and RCA, 04/28/2018 Assessment & Plan (01/24/2024 4:40 PM EDT): Cardiac rehab at [facility] 2x week Assessment & Plan [...] as of this encounter (statuses as of 06/15/2024) Resolved Problems Problem Noted Date Diagnosed Date Resolved Date Purulent endophthalmitis of right eye 01/03/2023 11/08/2023 Other pulmonary embolism wit h acute cor pulmonale 10/01/2022 04/26/2023 Overview (04/26/2023): history Medical home patient encounter 09/13/2022 11/08/2023 Atherosclerosis of coronary artery of rincon heart without angina pectoris 09/10/2022 10/31/2022 Hypothyroidism [...] filter 02/28/2015 Atherosclerotic heart diseas e of rincon coronary artery with angina pectoris 11/2018 CKD (chronic kidney disease) stage 2, GFR 60-89 ml/min 03/12/2019 documented as of this encounter (statuses as of 06/15/2024) Immunizations Name Administration Dates Next Due COVID-19 [...] 9:23 AM EST Sexual Orientation Straight 02/20/2024 9 :23 AM EST 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 * Telephone Encounter - Shania López OSA - 06/09/2024 10:40 AM EDT Spoke to patient to schedule the [place] Guided Left Chest Thoracentesis at [facility] but patient states she feels better no coughing and shortness of breath and feels she doesn't need the thoracentesis . documented in this encounter Plan of Treatment Upcoming Encounters Date Type Department Care Team (Late st Contact Info) Description 06/16/2024 2:30 PM EDT Appointment Radiology, [address] [place] [address] 06/22/2024 11:00 AM EDT Home Visit [facility] [address] [place] [address] Leon Live PA-C [address] [place] [address] 06/22/2024 2:30 PM EDT Office Visit Urogynecology [facility] [address] [place] [address] Quincy Garcia MD [address] [place] [address] 06/25/2024 9:00 AM EDT Office Visit Family Medicine [address] [place] [phone] Rafa Bergman MD [address] [place] [address] [place] [address] 06/26/2024 11:30 AM EDT Office Visit Ophthalmology, [facility] [address] [place] [address] Pedro Tinsley DO [address] [place] [address] 07/06/2024 8:40 AM EDT Office Visit Neurology [facility] [place] [address] [facility] [place] [address] Alfonso Manning MD [address] [place] [address] 07/06/2024 11:00 AM EDT [facility] Visit [facility] [address] [place] [address] Leon Live PA-C [address] [place] [address] 07/14/2024 2:30 PM EDT Cardiac Studies Cardiology [address] [place] [address] [facility] [address] [place] [address] 07/21/2024 10:00 AM EDT Imaging Radiology [facility] [place] [phone] 08/18/2024 10:20 AM EDT Laboratory Laboratory [address] [place] [phone] [address] [place] [address] 08/21/2024 3:00 PM EDT Office Visit Rheumatology [address] [place] [phone] José Miguel Cullen CRNP [address] [place] [address] [place] [address] 08/25/2024 3:30 PM EDT Office Visit Hematology/Oncology [facility] [place] [address] [place] [phone] Arianna Szymanski MD [address] [place] [address] 09/11/2024 12:50 PM EDT Office Visit Dermatology, [facility] [place] [address] [place] [address] Dasha Nelson PA-C [address] [place] [address] 10/05/2024 1:30 PM EDT Office Visit Cardiology, [facility] [address] [place] [address] Charles Ortega DO [address] [place] [address] Health Maintenance Due Date Last Done Comments Adult Wellness Visit 02/06/2018 02/06/2017 Depression Screening 07/17/2022 07/17/2021 COVID-19 Vaccine ( season) 2023 02/05/2022, 08/02/2021, 02/28/2021, Additional history exists Influenza Vaccine (FLU shot) (#1) 2023 04/19/2023, 01/30/2022, 12/28/2020, Additional history exists Albumin/Creatinine Ratio 02/13/2024 023, 03/21/2022, 04/19/2021, Additional history exists HbA1c 04/26/2024 04/26/2023, 03/02, 04/19/2021, Additional history exists CKD PHOS USE SMARTSET 73205 06/26/202405/31, 04/19/2021, 11/27/2019, Additional history exists DXA Scan 07/18/2024 07/18/2022, 06/30, 12/22/2019, Additional history exists GFR 12/08/2024 06/07/2024, 01/30, 11/05/2023, Additional history exists CKD HGB USE SMARTSET 65374 02/16/202502/16, 02/17/2024, 06/27/2023, Additional history exists TSH [...] D LEVEL ONCE IN A LIFETIME-USE SMARTSET# 93847 Completed 06/27/2023, 11/06/2021, 12/28/2019, Additional history exists [...] this encounter Medical Devices Implanted Type Area Diesel Roller Operator Device Identifier Shelf Expiration Date Model / Serial / Lot Lens Intraoc 21.5 - [id number] - [id number] Implanted:Qty: 1 on 05/12/2019 by Yury Brady MD at OR [facility] Right: Eye [employer] LOMB 12/30/2023 [id number] / [id number] / [id number] Lens Intraoc 22.5 - [id number] - [id number] Implanted:Qty: 1 on 04/05/2020 by Yury Brady MD at OR [facility] Left: Eye BAUSCH & LOMB 09/28/2024 [id number] / [id number] / [id number] documented as of this encounter Additional Health Concerns Infection Onset Date Last Indicated Resolved Time RSV 06/05/2024 06/05/2024 documented as of this encounter Advance Directives Documents on File Type Date 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
--- OUTSIDE RECORDS SUMMARY | 2024-07-24 00:02 | External Medical Summary | Summary of Care ---
Author Name Unknown Organization [facility] Address [address] [place] [address] Phone [phone] Care Team Providers Care Telephone Interviewer Name Role Phone Rafa Bergman MD Primary Care Provide r Reason for Visit * Reason Comments eRx-Medication Refill Encounter Details Date Type Department Care Team (Late st Contact Info) Description 06/15/2024 Refill Neurology [facility] [address] [place] [address] Shirley Robertson MD [address] [place] [address] Allergies Active Allergy Reactions Criticality Noted Date Comments Colchicine Diarrhea 06/16/2018 Daptomycin 01/05/2015 Shortness of breath Imipenem Edema airway High 01/05/2015 Metoprolol Low 01/23/2021 Other reaction(s): fatigue Zoledronic Acid 04/24/2012 Myalgias, fever, chills, vomiting x 2 days Sulfa Antibiotics 12/22/2002 Bactrim--itchy all over, eyes swollen documented as of this encounter (statuses as of 06/16/2024) Medications ASPIRIN 81 MG PO TABS Take [...] 24 Active Apixaban 2.5 MG Oral Tablet (Eliquis)Indica tions: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 180 Tablet 3 4 3:19 PM EST 01/09/20 24 Active Pantoprazole Sodium 40 MG Oral Tablet Delayed Release (Protonix) Take 1 Tablet by mouth in the morning and 1 Tablet in the evening. 90 Tablet 3 5 8:22 AM EST 01/09/20 24 Active Rosuvastatin Calcium 5 MG Oral Tablet (Crestor)Indica tions:Dyslipide teri, goal LDL below 70,Coronary artery disease involving [place] coronary artery of [place] heart without angina pectoris TAKE ONE TABLET BY MOUTH IN THE MORNING 90 Tablet 3 5 7:44 AM EST 01/10/20 24 Active Propranolol HCl 10 MG Oral Tablet (Inderal)Indica tions:Sinus tachycardia,Tac hy-chintan syndrome (HCC),Coronary artery disease involving [place] coronary artery of [place] heart without angina pectoris,Presen ce of cardiac pacemaker,Palpi tations,HTN, goal below 140/90 Take one-half Tablet by mouth in the morning and before bedtime. 90 Tablet 3 5 7:17 PM EST 01/10/20 24 Active Additional Information Patient taking differently:5 mg OralHS, Reported on 03/13/2024 Levothyroxine Sodium 125 MCG Oral Tablet (Levoxyl)Indica [...] 24 Active Ondansetron HCl 4 MG Oral TabletIndicatio ns:Nausea Take 1 Tablet by mouth every 8 hours as needed for Nausea. 30 Tablet 01/17/20 24 Active Famotidine 20 MG Oral Tablet (Pepcid) Take 1 Tablet by mouth at bedtime. 90 Tablet 3 4 12:49 PM EST 01/24/20 24 Active dilTIAZem [...] 5 5:55 PM EST 05/11/19 25 Active methylPREDNISol one 4 MG Oral Tablet Therapy Pack (Medrol Dosepack) Take as per instructions on package. 21 Each 06/05/19 25 Active Gabapentin 100 MG Oral Capsule (Neurontin) Take one cap three times a day 90 Capsule 1 06/17/19 25 Active Gabapentin 100 MG Oral Capsule (Neurontin) Take one cap at bedtime for a week then one cap in the morning and at bedtime for a week and one cap three times a day 90 Capsule 04/20/19 25 2024 Discontinued Hospital, Clinic, or Other Facility [...] as of this encounter (statuses as of 06/16/2024) Active Problems Problem Noted Date Diagnosed Date Migraine without aura and wi thout status migrainosus, not intractable 04/16/2024 Assessment & Plan (04/16/2024 4:06 PM EST): Continue magnesium and riboflavin Reports gabapentin was offered by neurology, will reach out to neurology regarding starting 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 04/16/2024 Nevus of 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 History of DC (myocardial infarction) 11/27/2022 Assessment & Plan (04/16/2024 [...] S/P angioplasty with stent 11/27/2018 Atherosclerosis of [place] co ronary artery of [place] heart without angina pectoris 07/08/2018 Overview (11/21/2023): history of NSTEMI status post AMIE to LAD (culprit) and RCA, 04/28/2018 Assessment & Plan (01/24/2024 4:40 PM EDT): Cardiac rehab at [facility] 2x week Assessment & Plan (11/21/2023 [...] as of this encounter (statuses as of 06/16/2024) Resolved Problems Problem Noted Date Diagnosed Date Resolved Date Purulent endophthalmitis of right eye 01/03/2023 11/08/2023 Other pulmonary embolism wit h acute cor pulmonale 10/01/2022 04/26/2023 Overview (04/26/2023): history Medical home patient encounter 09/13/2022 11/08/2023 Atherosclerosis of coronary artery of [place] heart without angina pectoris 09/10/2022 10/31/2022 Hypothyroidism [...] filter 02/28/2015 Atherosclerotic heart diseas e of [place] coronary artery with angina pectoris 11/2018 CKD (chronic kidney disease) stage 2, GFR 60-89 ml/min 03/12/2019 documented as of this encounter (statuses as of 06/16/2024) Immunizations Name Administration Dates Next Due COVID-19 [...] Not on file 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 Not on file Not [...] [id number] [address] [facility] Pending Prescriptions: Disp Refills Gabapentin 100 MG [...] Contact Info) Description 06/16/2024 2:30 PM EDT Hospital Encounter Radiology, [facility] [address] [facility] [place] [address] 06/22/2024 11:00 AM EDT Home Visit [facility] [address] [place] [address] Leon Live PA-C [address] [place] [address] 06/25/2024 9:00 AM EDT Office Visit [address] [place] [phone] Rafa Bergman MD [address] [place] [address] [place] [address] 06/26/2024 11:30 AM EDT Office Visit Ophthalmology, [facility] [address] [place] [address] Pedro Tinsley DO [address] [place] [address] 07/06/2024 8:40 AM EDT Office Visit Neurology [facility] [address] [place] [address] Shirley Robertson MD [address] [place] [address] 07/06/2024 11:00 AM EDT Home Visit [facility] [address] [place] [address] Leon Live PA-C [address] [place] [address] 07/14/2024 2:30 PM EDT Cardiac Studies Cardiology [address] [place] [address] Ozzie Pacer [facility] [address] [place] [address] 07/21/2024 10:00 AM EDT Imaging Radiology [facility] [address] [place] [phone] 08/18/2024 10:20 AM EDT Laboratory Laboratory [address] [place] [phone] [place] [address] [place] [address] 08/21/2024 3:00 PM EDT Office Visit Rheumatology [address] [place] [phone] José Miguel Cullen CRNP [address] [facility] [place] [address] 08/25/2024 3:30 PM EDT Office Visit Hematology/Oncology [facility] [place] [address] [facility] [place] [address] Arianna Szymanski MD [address] [facility] [place] [address] 09/11/2024 12:50 PM EDT Office Visit Dermatology, Jesu Wilson [address] [place] [address] Dasha Nelson PA-C [address] [place] [address] 09/29/2024 3:10 PM EDT Office Visit Urogynecology [facility] [address] [place] [address] Quincy Garcia MD [address] [place] [address] 10/05/2024 1:30 PM EDT Office Visit Cardiology, [facility] [address] [place] [address] Charles Ortega DO [address] [place] [address] Health Maintenance Due Date Last Done Comments Adult Wellness Visit 02/06/2018 02/06/2017 Depression Screening 07/17/2022 07/17/2021 COVID-19 Vaccine ( season) 2023 02/05/2022, 08/02/2021, 02/28/2021, Additional history exists Influenza Vaccine (FLU shot) (#1) 2023 04/19/2023, 01/30/2022, 12/28/2020, Additional history exists Albumin/Creatinine Ratio 02/13/2024 023, 03/21/2022, 04/19/2021, Additional history exists HbA1c 04/26/2024 04/26/2023, 03/02, 04/19/2021, Additional history exists CKD PHOS USE SMARTSET 87421 06/26/202405/31, 04/19/2021, 11/27/2019, Additional history exists DXA Scan 07/18/2024 07/18/2022, 06/30, 12/22/2019, Additional history exists GFR 12/08/2024 06/07/2024, 01/30, 11/05/2023, Additional history exists CKD HGB USE SMARTSET 47318 02/16/202502/16, 02/17/2024, 06/27/2023, Additional history exists TSH [...] D LEVEL ONCE IN A LIFETIME-USE SMARTSET# 03402 Completed 06/27/2023, 11/06/2021, 12/28/2019, Additional history exists [...] this encounter Medical Devices Implanted Type Area Truck Loader Device Identifier Shelf Expiration Date Model / Serial / Lot Lens Intraoc 21.5 - [id number] - [id number] Implanted:Qty: 1 on 05/12/2019 by Yury Brady MD at OR [facility] Right: Eye [employer] LOMB 12/30/2023 [id number] / [id number] / [id number] Lens Intraoc 22.5 - [id number] - [id number] Implanted:Qty: 1 on 04/05/2020 by Yury Brady MD at OR [facility] Left: Eye BAUSCH & LOMB 09/28/2024 [id number] / [id number] / [id number] documented as of this encounter Additional Health Concerns Infection Onset Date Last Indicated Resolved Time RSV 06/05/2024 06/05/2024 documented as of this encounter Advance Directives Documents on File Type Date Recorded 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
--- OUTSIDE RECORDS SUMMARY | 2024-07-24 00:02 | External Medical Summary | Summary of Care ---
Author Name Unknown Organization [facility] Address [address] [place] [facility] [place] [place] [address] Phone [phone] Care Team Providers Care Cnc Mill Operator Name Role Phone Rafa Bergman MD Primary Care Provide r Reason for Visit * Reason Onset Date Comments [facility]: Maintenance 06/15/2024 Encounter Details Date Type Department Care Team (Late st Contact Info) Description 06/15/2024 Telephone [facility], [facility] [address] [facility] [place] [phone] Yamilka Wells RN [address] [facility] [address] [facility]: Maintenance Allergies Active Allergy [...] goal LDL below 70,Coronary artery disease involving [place] coronary artery of [place] heart without angina pectoris TAKE ONE TABLET BY MOUTH IN THE MORNING 90 Tablet 3 05/25/2024 7:44 AM EST 4 Active Propranolol HCl 10 MG Oral Tablet (Inderal)Indicat ions:Sinus tachycardia,Tach y-chintan syndrome (HCC),Coronary artery disease involving [place] coronary artery of [place] heart without angina pectoris,Presenc e of cardiac [...] 3 04/17/2024 1:21 PM EST 5 Active Gabapentin 100 MG Oral Capsule (Neurontin) Take one cap at bedtime for a week then one cap in the morning and at bedtime for a week and one cap three times a day 90 Capsule 5 Active Allopurinol 300 MG Oral Tablet (Zyloprim) TAKE 1 & 1/2 TABLETS BY MOUTH EVERY DAY 135 Tablet 05/14/2024 5:55 PM EST 5 Active methylPREDNISolo ne 4 MG Oral Tablet Therapy Pack (Medrol Dosepack) Take as per instructions on package. 21 Each 5 Active Hospital, Clinic, or Other Facility [...] with stent 11/27/2018 Atherosclerosis of [place] co ronary artery of [place] heart without angina pectoris 07/08/2018 Overview (11/21/2023): history of NSTEMI status post AMIE to LAD (culprit) and RCA, 04/28/2018 Assessment & Plan (01/24/2024 4:40 PM EDT): Cardiac rehab at [facility] 2x week Assessment & Plan (11/21/2023 [...] 09/13/2022 11/08/2023 Atherosclerosis of coronary artery of [place] heart without angina pectoris 09/10/2022 [...] filter 02/28/2015 Atherosclerotic heart diseas e of [place] coronary artery with angina pectoris [...] 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 Spoke with Regina made her aware, she verbalized understanding. RUBY Morales Registered Nurse Navigator Triage [facility] * Telephone Encounter - Yamilka Wells RN - 06/15/2024 12:23 PM EDT Phone call from patient wanting to know if she should take any Lasix today, was only instructed to take Saturday and Saturday and was supposed to have an appt at IR today but the appointment is tomorrow. Reports feeling the same as she has been feeling, no SOB, no CP, ongoing cough. Is having increased urination. KUNAL MoralesN Registered Nurse Navigator Triage [facility] documented in this encounter Plan of Treatment Upcoming Encounters Date Type Department Care Team (Late st Contact Info) Description 06/16/2024 2:30 PM EDT Appointment Radiology, [address] [place] [address] 06/22/2024 11:00 AM EDT [facility] [address] [address] Leon Live PA-C [address] [place] [address] 06/25/2024 9:00 AM EDT Office Visit Family Medicine [address] [place] [address] Rafa Bergman MD [address] [place] [address] [place] [address] 06/26/2024 11:30 AM EDT Office Visit Ophthalmology, [facility] [address] [place] [address] Pedro Tinsley, [address] [place] [address] 07/06/2024 8:40 AM EDT Office Visit Neurology [facility] [address] [facility] [place] [address] Alfonso Manning MD [address] [place] [address] 07/06/2024 11:00 AM EDT Home Visit [facility] at [facility] [address] [place] [address] Leon Live PA-C [address] [place] [address] 07/14/2024 2:30 PM EDT Cardiac Studies Cardiology [address] [place] [address] [employer] [facility] [address] [place] [address] 07/21/2024 10:00 AM EDT Imaging Radiology [facility] [address] [place] [phone] 08/18/2024 10:20 AM EDT Laboratory Laboratory [address] [place] [phone] [facility] Lab [address] [place] [address] 08/21/2024 3:00 PM EDT Office Visit Rheumatology [address] [place] [phone] José Miguel Cullen CRNP [address] [place] [address] [place] [address] 08/25/2024 3:30 PM EDT Office Visit Hematology/Oncology [facility] [address] [place] [phone] Arianna Szymanski MD [address] [place] [address] 09/11/2024 12:50 PM EDT Office Visit Dermatology, Jesu Wilson [address] [place] [address] Dasha Nelson PA-C 27 [place] [address] 09/29/2024 3:10 PM EDT Office Visit Urogynecology [facility] [address] [place] [address] Quincy Garcia MD [address] [place] [address] 10/05/2024 1:30 PM EDT Office Visit Cardiology, [facility] [address] [place] [address] Charles Ortega, [address] [place] [address] Health Maintenance Due Date Last Done Comments Adult Wellness Visit 02/06/2018 02/06/2017 Depression Screening 07/17/2022 07/17/2021 COVID-19 Vaccine ( season) 2023 02/05/2022, 08/02/2021, 02/28/2021, Additional history exists Influenza Vaccine (FLU shot) (#1) 2023 04/19/2023, 01/30/2022, 12/28/2020, Additional history exists Albumin/Creatinine Ratio 02/13/2024 023, 03/21/2022, 04/19/2021, Additional history exists HbA1c 04/26/2024 04/26/2023, 03/02, 04/19/2021, Additional history exists CKD PHOS USE SMARTSET 26407 06/26/202405/31, 04/19/2021, 11/27/2019, Additional history exists DXA Scan 07/18/2024 07/18/2022, 06/30, 12/22/2019, Additional history exists GFR 12/08/2024 06/07/2024, 01/30, 11/05/2023, Additional history exists CKD HGB USE SMARTSET 44571 02/16/202502/16, 02/17/2024, 06/27/2023, Additional history exists TSH 04/24/2025 04/24/2024, 0 10/2024, 11/15/2023, Additional history exists DTap/Tdap Vaccines (3 - Td or Tdap) 09/30/2033 10/01/2023, 11/03/2007 Hepatitis B Vaccine Completed 03/18/2009, 06/14/2008, 05/12/2008 Pneumococcal Vaccine: 50+ Years Completed 03/28/2015, 03/20/2010, 11/15/2004 RETIRED - COLONOSCOPY-EVERY 5 YRS AGES 18-100 Discontinued 02/27/2017, 02/27/2017, 10/17/2004 Zoster Vaccines Completed 06/12/2021, 02/01, 11/04/2012 VITAMIN D LEVEL ONCE IN A LIFETIME-USE SMARTSET# [id number] Completed 06/27/2023, 11/06/2021, 12/28/2019, Additional history exists [...] this encounter Medical Devices Implanted Type Area Justice Court Deputy Clerk Device Identifier Shelf Expiration Date Model / Serial / Lot Lens Intraoc 21.5 - [id number] - [id number] Implanted:Qty: 1 on 05/12/2019 by Yury Brady MD at OR [facility] Right: Eye [employer]OM[employer] 12/30/2023 [id number] / [id number] / [id number] Lens Intraoc 22.5 - [id number] - [id number] Implanted:Qty: 1 on 04/05/2020 by Yury Brady MD at OR [facility] Left: Eye [employer]CH [employer] LOMB 09/28/2024 [id number] / [id number] / [id number] documented as of this encounter Additional Health Concerns Infection Onset Date Last Indicated Resolved Time RSV 06/05/2024 06/05/2024 documented as of this encounter Advance Directives Documents on File Type Date Recorded 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
--- OUTSIDE RECORDS SUMMARY | 2024-07-24 00:02 | External Medical Summary | Summary of Care ---
Author Name Unknown Organization [facility] Address [address] [place] [facility] [place] [address] Phone [phone] Care Team Providers Care Sales Attendant Name Role Phone Rafa Bergman MD Primary Care Provide r Encounter Details Date Type Department Care Team (Late st Contact Info) Description 06/12/2024 3:00 PM EDT [facility] [place] [address] Olinda Briggs, CHRISTINA [address] [place] [address] Pleural effusion on left* Allergies Active Allergy Reactions Criticality Noted Date [...] below 70,Coronary artery disease involving [place] coronary artery of [place] heart without angina pectoris TAKE ONE TABLET BY MOUTH IN THE MORNING 90 Tablet 3 5 7:44 AM EST 01/10/20 24 Active Propranolol HCl 10 MG Oral Tablet (Inderal)Indica tions:Sinus tachycardia,Tac hy-chintan syndrome (HCC),Coronary artery disease involving [place] coronary artery of [place] heart without angina pectoris,Presen ce of cardiac [...] cap three times a day 90 Capsule 04/20/192024 Discontinued levoFLOXacin 750 MG Oral Tablet Take 1 Tablet by mouth every other day for 10 days. until gone. 5 Tablet 06/05/192024 Hospital, Clinic, or Other Facility Administered Medication [...] 6 mg IZ PRN 03/18/2024 03/18/2025 Active Furosemide (Lasix) inj 80 mgIndications:Pleural effusion on left 80 mg IV PUSH ONCE 06/12/2024 06/12/2024 Ended documented as of this encounter (statuses [...] with stent 11/27/2018 Atherosclerosis of [place] co ronary artery of [place] heart without angina pectoris 07/08/2018 Overview (11/21/2023): history of NSTEMI status post AMIE to LAD (culprit) and RCA, 04/28/2018 Assessment & Plan (01/24/2024 4:40 PM EDT): Cardiac rehab at [facility] 2x week Assessment & Plan [...] Atherosclerosis of coronary artery of [place] heart without angina pectoris 09/10/2022 10/31/2022 Hypothyroidism [...] 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 11/2018 CKD [...] 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 Not on file Not on file documented as of this encounter Last Filed Vital Signs Vital Sign Reading Time Taken Comments Blood Pressure 122/68 06/12/2024 3:05 PM EDT Pulse 88 06/12/2024 3:05 PM EDT Temperature 36.6 °C (97.9 °F) 06/12/2024 3:05 PM ED T Respiratory Rate 18 06/12/2024 3:05 PM EDT Oxygen Saturation 96% 06/12/2024 3:05 PM EDT Inhaled Oxygen Concentration - - Weight - - Height - - Body Mass Index - - documented in this encounter Progress Notes * Olinda Briggs RN - 06/12/2024 4:32 PM EDT Current Concerns: Patient being seen for acute visit- +RSV 06/05 Chest xray showed moderate left pleural effusion. IV lasix 06/05, 06/06, 06/07, 06/08. Order for thoracentesis placed. Patient reported feeling much better. Declined thoracentesis at that time. Presents today with overall not feeling well- persistent cough. Afebrile +weakness Lungs diminished in bases but clear Sob with exertion Nonproductive cough Nonpitting BLE edema Voiding without difficulty Bowels wnl Taking fluids TT to [facility] Angela CRABTREE- IV lasix 80mg today- Lasix 40mg PO daily Saturday and Saturday Potassium 10meq x 3 days starting today. Provided from [employer]. Awaiting appointment at [facility] for thoracentesis- Will be followed up on Saturday. Patient aware- if procedure is not scheduled on Saturday- may need to do PO lasix again. Voices understanding. IV placed left antecubital- medication infused- flushed with saline. Dc'd- pressure dressing applied. Tolerated well. Physical Exam: Physical Exam Constitutional: Appearance: Normal appearance. Cardiovascular: Rate and Rhythm: Normal rate and regular rhythm. Pulses: Normal pulses. Pulmonary: Effort: Pulmonary effort is normal. Breath sounds: Normal breath sounds. Abdominal: General: Bowel sounds are normal. Palpations: Abdomen is soft. Musculoskeletal: General: Normal range of motion. Skin: General: Skin is warm and dry. Capillary Refill: Capillary refill takes 2 to 3 seconds. Coloration: Skin is pale. Neurological: General: No focal deficit present. Mental Status: She is alert and oriented to person, place, and time. Psychiatric: Mood and Affect: Mood normal. Behavior: Behavior normal. Review of Systems: Review of Systems Constitutional: Positive for activity change and fatigue. Respiratory: Positive for cough and shortness of breath. Cardiovascular: Positive for leg swelling. Gastrointestinal: Negative. Genitourinary: Negative. Musculoskeletal: Negative. Skin: Negative. Neurological: Positive for weakness. Hematological: Bruises/bleeds easily. Psychiatric/Behavioral: Negative. Care Plan Goal Progress: Orders Placed: Plan Furosemide (Lasix) inj 80 mg Medications Given: Administrations This Visit Furosemide (Lasix) inj 80 mg Admin Date 06/12/2024 Action Given Dose 80 mg Route IV Push Documented By Olinda Briggs, CHRISTINA Care Gaps: Care Gaps Care gaps closed this contact: Education;Home based procedures (06/12/24 1639) Type of education: Clinical/disease (06/12/24 1639) Procedure performed: IV medication (06/12/24 163) * Angela Kohli CRNP - 06/12/2024 2:54 PM EDT Patient with recurrent dyspnea from know pleural effusions, left greater than right. Had declined thoracentesis last week, but now agreeable with ongoing/recurring symptoms. In process of being rescheduled. Plan -Lasix 80 mg IVP today, then PO Lasix 40 mg daily on Saturday and Saturday -Potassium 10 meq x3 days LEYDA Gudino [facility] 132 [facility] [place] [address] documented in this encounter Plan of Treatment Upcoming Encounters Date Type Department Care Team (Late st Contact Info) Description 06/22/2024 11:00 AM EDT Home Visit [facility] at [facility] 132 [facility] [place] [address] Leon Live PA-C 132 [facility] [place] [address] 06/25/2024 9:00 AM EDT Office Visit Family Medicine [address] [place] [phone] Rafa Bergman MD [address] [place] [address] [place] [address] 06/26/2024 11:30 AM EDT Office Visit Ophthalmology, [facility] [address] [place] [address] Pedro Tinsley DO [address] [place] [address] 07/06/2024 8:40 AM EDT Office Visit Neurology [facility] [address] [place] [address] Alfonso Manning MD [address] [place] [address] 07/06/2024 11:00 AM EDT [facility] Visit [facility] [place] [address] [place] [address] Leon Live PA-C [address] [place] [address] 07/14/2024 2:30 PM EDT Cardiac Studies Cardiology [address] [place] [address] [facility] [address] [place] [address] 07/21/2024 10:00 AM EDT Imaging Radiology [facility] [address] [place] [phone] 08/18/2024 10:20 AM EDT Laboratory Laboratory [address] [place] [phone] [address] [place] [address] 08/21/2024 3:00 PM EDT Office Visit Rheumatology [address] [place] [phone] José Miguel Cullen CRNP [address] [place] [address] [place] [address] 08/25/2024 3:30 PM EDT Office Visit Hematology/Oncology [facility] [address] [facility] [place], [place] [address] Arianna Szymanski MD [address] [facility] [place], [place] [address] 09/11/2024 12:50 PM EDT Office Visit Dermatology, Jesu Wilson [address] [place] [address] Dasha Nelson PA-C 27 [place] [address] 09/29/2024 3:10 PM EDT Office Visit Urogynecology [facility] [address] [facility] [place] [place] [address] Quincy Garcia MD [address] [place] [address] 10/05/2024 1:30 PM EDT Office Visit Cardiology, [facility] 132 [facility] [place] [address] Charles Ortega DO [address] [place] [address] Health Maintenance Due Date Last Done Comments Adult Wellness Visit 02/06/2018 02/06/2017 Depression Screening 07/17/2022 07/17/2021 COVID-19 Vaccine ( season) 2023 02/05/2022, 08/02/2021, 02/28/2021, Additional history exists Influenza Vaccine (FLU shot) (#1) 2023 04/19/2023, 01/30/2022, 12/28/2020, Additional history exists Albumin/Creatinine Ratio 02/13/202402/12/2 023, 03/21/2022, 04/19/2021, Additional history exists HbA1c 04/26/2024 04/26/2023, 1204/2021, 04/19/2021, Additional history exists CKD PHOS USE SMARTSET 56649 06/26/202405/31, 04/19/2021, 11/27/2019, Additional history exists DXA Scan 07/18/2024 07/18/2022, 06/30, 12/22/2019, Additional history exists GFR 12/08/2024 06/07/2024, 01/30, 11/05/2023, Additional history exists CKD HGB USE SMARTSET 34101 02/16/202502/16, 02/17/2024, 06/27/2023, Additional history exists TSH [...] D LEVEL ONCE IN A LIFETIME-USE SMARTSET# [id number] Completed 06/27/2023, 11/06/2021, 12/28/2019, Additional history exists [...] this encounter Medical Devices Implanted Type Area Staff Auditor Device Identifier Shelf Expiration Date Model / Serial / Lot Lens Intraoc 21.5 - [id number] - [id number] Implanted:Qty: 1 on 05/12/2019 by Yury Brady MD at OR [facility] Right: Eye [employer]OM[employer] 12/30/2023 [id number] / [id number] / [id number] Lens Intraoc 22.5 - [id number] - [id number] Implanted:Qty: 1 on 04/05/2020 by Yury Brady MD at OR [facility] Left: Eye [employer]CH [employer] LOMB 09/28/2024 [id number] / [id number] / [id number] documented as of this encounter Visit Diagnoses Diagnosis Hypertensive kidney disease with stage 3a chronic kidney disease- Primary Atherosclerosis of [place] coronary artery of [place] heart without angina pectoris Dyslipidemia, goal LDL below 70 Other and unspecified hyperlipidemia History of pulmonary embolism Personal history of pulmonary embolism Tachy-chintan syndrome (HCC) Sinoatrial node dysfunction S/P placement of cardiac pacemaker Cardiac pacemaker in situ Arthralgia of right hip Gastro-esophageal reflux disease with esophagitis, without bleeding Sinus tachycardia Other specified cardiac dysrhythmias Coronary artery disease involving [place] coronary artery of [place] heart without angina pectoris Presence of cardiac pacemaker Cardiac pacemaker in situ Palpitations HTN, goal below 140/90 Unspecified essential hypertension Hypertensive kidney disease with stage 3a chronic kidney disease- Primary Dyslipidemia, goal LDL below 70 Other and unspecified hyperlipidemia Gastro-esophageal reflux disease with esophagitis, without bleeding Atherosclerosis of [place] coronary artery of [place] heart without angina pectoris Advanced care planning/counseling discussion- Primary Other specified counseling Hypertensive kidney disease with stage 3a chronic kidney disease (HCC) History of PR (myocardial infarction) Old myocardial infarction Tachy-chintan syndrome [...] Unspecified pleural effusion documented in this encounter Administered Medications Inactive Administered Medications - up to 3 most recent administrations Medication Order MAR Action Action Date Dose Rate Site Furosemide (Lasix) inj 80 mg 80 mg, IV Push, ONCE, On Sat06/12/24 at 1530, For 1 doseIndications:Pleural effusion on left Given 06/12/2024 4:40 PM EDT 80 mg Antecubital Left documented in this encounter Additional Health Concerns Infection Onset Date Last Indicated Resolved Time RSV 06/05/2024 06/05/2024 documented as of this encounter Advance Directives Documents on File Type Date Recorded Patient General Ophthalmologist Expl anation Advance Directives and Living Will 03/11/2018 Krissy Butch Wilmar ADVANCE DIR ECTIVE * Full Code (Latest [...] Agen t (per Health Care Power of Industrial Gas Production Operator document) Guille Wilmar Adult Child Health Care Agen t (per Health Care Power of Industrial Gas Production Operator document) [email or web address] Care Teams Sales Attendant Relationship Specialty Start Date End Date Rafa Bergman MD [address] [place] [address] [place] [address] PCP - General Family Medicine 04/19/21 documented as of this encounter
--- OUTSIDE RECORDS SUMMARY | 2024-07-24 00:02 | External Medical Summary | Summary of Care ---
Author Name Unknown Organization [facility] Address [address] [facility] [place] [address] Phone [phone] Care Team Providers Care Application Systems Architect Name Role Phone Rafa Bergman MD Primary Care Provide r Reason for Visit * Reason Onset Date Comments [facility]: Maintenance 06/15/2024 Encounter Details Date Type Department Care Team (Late st Contact Info) Description 06/15/2024 Telephone [facility], [facility] [address] [facility] [place] [phone] Yamilka Wells RN [address] [facility] [address] [facility]: Maintenance Allergies [...] goal LDL below 70,Coronary artery disease involving [place] coronary artery of [place] heart without angina pectoris TAKE ONE TABLET BY MOUTH IN THE MORNING 90 Tablet 3 05/25/2024 7:44 AM EST 4 Active Propranolol HCl 10 MG Oral Tablet (Inderal)Indicat ions:Sinus tachycardia,Tach y-chintan syndrome (HCC),Coronary artery disease involving [place] coronary artery of [place] heart without angina pectoris,Presenc e of cardiac [...] S/P angioplasty with stent 11/27/2018 Atherosclerosis of [place] co ronary artery of [place] heart without angina pectoris 07/08/2018 Overview (11/21/2023): history of NSTEMI status post AMIE to LAD (culprit) and RCA, 04/28/2018 Assessment & Plan (01/24/2024 4:40 PM EDT): Cardiac rehab at [facility] 2x week Assessment & Plan (11/21/2023 [...] 09/13/2022 11/08/2023 Atherosclerosis of coronary artery of [place] heart without angina pectoris 09/10/2022 10/31/2022 Hypothyroidism [...] filter 02/28/2015 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 11/2018 CKD [...] 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 file 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 Not on file Not on file Not on file documented as of this encounter Miscellaneous Notes * Telephone Encounter - Yamilka eWlls RN - 06/15/2024 1:17 PM EDT TT to [facility] Care team, per Leon Live, she [...] Description 06/16/2024 2:30 PM EDT Appointment Radiology, [address] [place] [address] 06/22/2024 11:00 AM EDT [facility] [address] [address] Leon Live PA-C [address] [place] [address] 06/25/2024 9:00 AM EDT Office Visit Family Medicine [address] [place] [phone] Rafa Bergman MD [address] [place] [address] [place] [address] 06/26/2024 11:30 AM EDT Office Visit Ophthalmology, [facility] [address] [place] [address] Pedro Tinsley, [address] [place] [address] 07/06/2024 8:40 AM EDT Office Visit Neurology [facility] [address] [facility] [place] [address] Alfonso Manning MD [address] [facility] [place] [address] 07/06/2024 11:00 AM EDT Home Visit [facility] at [facility] [address] [place] [address] Leon Live PA-C [address] [place] [address] 07/14/2024 2:30 PM EDT Cardiac Studies Cardiology [address] [place] [address] [employer] [facility] [address] [place] [address] 07/21/2024 10:00 AM EDT Imaging Radiology [facility] [address] [place] [phone] 08/18/2024 10:20 AM EDT Laboratory Laboratory [address] [place] [phone] [facility] [address] [place] [address] 08/21/2024 3:00 PM EDT Office Visit Rheumatology [address] [place] [phone] José Miguel Cullen CRNP [address] [place] [address] [place] [address] 08/25/2024 3:30 PM EDT Office Visit Hematology/Oncology [facility] [address] [place] [phone] Arianna Szymanski MD [address] [place] [address] 09/11/2024 12:50 PM EDT Office Visit Dermatology, Jesu Wilson [address] [place] [address] Dasha Nelson PA-C [address] [place] [address] 09/29/2024 3:10 PM EDT Office Visit Urogynecology [facility] [address] [place] [address] Quincy Garcia MD [address] [place] [address] 10/05/2024 1:30 PM EDT Office Visit Cardiology, [facility] [address] [place] [address] Charles Ortega, [address] [place] [address] Health Maintenance Due Date Last Done Comments Adult Wellness Visit 02/06/2018 02/06/2017 Depression Screening 07/17/2022 07/17/2021 COVID-19 Vaccine ( season) 2023 02/05/2022, 08/02/2021, 02/28/2021, Additional history exists Influenza Vaccine (FLU shot) (#1) 2023 04/19/2023, 01/30/2022, 12/28/2020, Additional history exists Albumin/Creatinine Ratio 02/13/2024 023, 03/21/2022, 04/19/2021, Additional history exists HbA1c 04/26/2024 04/26/2023, 03/02, 04/19/2021, Additional history exists CKD PHOS USE SMARTSET 20346 06/26/202405/31, 04/19/2021, 11/27/2019, Additional history exists DXA Scan 07/18/2024 07/18/2022, 06/30, 12/22/2019, Additional history exists GFR 12/08/2024 06/07/2024, 01/30, 11/05/2023, Additional history exists CKD HGB USE SMARTSET 03673 02/16/202502/16, 02/17/2024, 06/27/2023, Additional history exists TSH [...] D LEVEL ONCE IN A LIFETIME-USE SMARTSET# 75424 Completed 06/27/2023, 11/06/2021, 12/28/2019, Additional history exists [...] this encounter Medical Devices Implanted Type Area Appraisal Manager Device Identifier Shelf Expiration Date Model / Serial / Lot Lens Intraoc 21.5 - [id number] - [id number] Implanted:Qty: 1 on 05/12/2019 by Yury Brady MD at OR [facility] Right: Eye [employer] 12/30/2023 [id number] / [id number] / [id number] Lens Intraoc 22.5 - [id number] - [id number] Implanted:Qty: 1 on 04/05/2020 by Yury Brady MD at OR [facility] Left: Eye [employer] 09/28/2024 [id number] / [id number] / [id number] documented as of this encounter Additional Health Concerns Infection Onset Date Last Indicated Resolved Time RSV 06/05/2024 06/05/2024 documented as of this encounter Advance Directives Documents on File Type Date Recorded Patient Extrusion Die Template Maker Expl anation Advance Directives and Living Will [...] Agen t (per Health Care Power of Access Consultant document) Guille Urban Adult Child Health Care Agen t (per Health Care Power of Access Consultant document) .c om Care Teams Application Systems Architect Relationship Specialty Start Date End Date Rafa Bergman MD [address] [place] [address] [place] [phone] PCP - General Family Medicine 04/19/21 documented as of this encounter
--- OUTSIDE RECORDS SUMMARY | 2024-07-24 00:03 | External Medical Summary | Summary of Care ---
Author Name Unknown Organization [facility] Address [address] [place] [facility] [place] [address] Phone [phone] Care Team Providers Care Furnace Setter Name Role Phone Rafa Bergman MD Primary Care Provide r Reason for Visit * Reason Onset Date Comments [facility]: Maintenance 06/13/2024 Encounter Details Date Type Department Care Team (Late st Contact Info) Description 06/13/2024 12:00 PM EDT Scheduled Telephone [facility], [facility] [address] [facility] [place] [address] [facility], Nurse [facility] [address] [facility] [place] [address] Allergies Active Allergy Reactions Criticality Noted Date Comments Colchicine Diarrhea 06/16/2018 Daptomycin 01/05/2015 Shortness of breath Imipenem Edema airway High 01/05/2015 Metoprolol Low 01/23/2021 Other reaction(s): fatigue Zoledronic Acid 04/24/2012 Myalgias, fever, chills, vomiting x 2 days Sulfa Antibiotics 12/22/2002 Bactrim--itchy all over, eyes swollen documented as of this encounter (statuses as of 06/13/2024) Medications ASPIRIN 81 MG PO TABS Take [...] goal LDL below 70,Coronary artery disease involving [place] coronary artery of [place] heart without angina pectoris TAKE ONE TABLET BY MOUTH IN THE MORNING 90 Tablet 3 05/25/2024 7:44 AM EST 4 Active Propranolol HCl 10 MG Oral Tablet (Inderal)Indicat ions:Sinus tachycardia,Tach y-chintan syndrome (HCC),Coronary artery disease involving [place] coronary artery of [place] heart without angina pectoris,Presenc e of cardiac [...] Tablet 05/14/2024 5:55 PM EST 5 Active levoFLOXacin 750 MG Oral Tablet Take 1 Tablet by mouth every other day for 10 days. until gone. 5 Tablet 5 025 Active methylPREDNISolo ne 4 MG Oral Tablet Therapy Pack (Medrol Dosepack) Take as per instructions on package. 21 Each Active Hospital, Clinic, or Other Facility Administered [...] as of this encounter (statuses as of 06/13/2024) Active Problems Problem Noted Date Diagnosed Date [...] S/P angioplasty with stent 11/27/2018 Atherosclerosis of [place] co ronary artery of [place] heart without angina pectoris 07/08/2018 Overview (11/21/2023): history of NSTEMI status post AMIE to LAD (culprit) and RCA, 04/28/2018 Assessment & Plan (01/24/2024 4:40 PM EDT): Cardiac rehab at [facility] 2x week Assessment & Plan (11/21/2023 5:32 [...] as of this encounter (statuses as of 06/13/2024) Resolved Problems Problem Noted Date Diagnosed Date Resolved Date Purulent endophthalmitis of right eye 01/03/2023 11/08/2023 Other pulmonary embolism wit h acute cor pulmonale 10/01/2022 04/26/2023 Overview (04/26/2023): history Medical home patient encounter 09/13/2022 11/08/2023 Atherosclerosis of coronary artery of [place] heart without angina pectoris 09/10/2022 10/31/2022 Hypothyroidism [...] filter 02/28/2015 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 11/2018 CKD (chronic kidney disease) stage 2, GFR 60-89 ml/min 03/12/2019 documented as of this encounter (statuses as of 06/13/2024) Immunizations Name Administration Dates Next Due COVID-19 [...] 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 IV lasix 06/12. In process of setting up thoracentesis again at [facility]- no appointment to present. RSV + 06/05 modest left pleural effusion- received IV lasix 06/05, 06/06, 06/07,06/08- patient reported feeling better- declined thoracentesis at that time. Objective: 06/12/2024 3:05 PM 06/08/2024 1:55 PM 06/07/2024 12:54 PM 06/06/2024 12:21 PM 06/06/2024 12:05 PM VITALS ACROSS ENCOUNTERS BP 122/68 138/80 118/62 118/68 124/72 Pulse 88 70 Remote Patient Monitoring: NONE Oxygen Needs: NO supplemental oxygen needs identified DME Needs: NO DME needs identified Medications: Dose adjustment(s) made: Lasix 40mg Saturday and Saturday Subjective: Condition Status: No change in symptoms Current Concerns: Spoke with Rehana, reports feeling the same as yesterday, complaining of being very tired and weak. Denies SOB, has persistent cough with yellow phlegm, no fever/chills, no sore throat, no N/V/D. Has headache, taking tylenol, BLE edema is improved since yesterday, is eating/drinking, bowels/bladder wnls'. Has follow up call tomorrow, encouraged to call [facility] with any needs. Disposition: Routed to [facility] and/or [facility] Care Team for further advice and Follow up call scheduled for tomorrow with [facility] Brick Baker Future Visits Scheduled: Future Appointments-next 60 days Date/Time Provider Specialty Dept Phone 06/13/2024 12:[address] [facility], Nurse Malena Becerril at Home [phone] 06/14/2024 11:[address] [facility], Nurse Malena Becerril at Home [phone] 06/22/2024 11:00 AM Leon Live PA-C [facility] [phone] 06/22/2024 2:30 PM (Arrive by 2:15 PM) Quincy Garcia MD Gynecology Urology [phone] 06/25/2024 9:00 AM (Arrive by 8:45 AM) Rafa Bergman MD Family Medicine [phone] 06/26/2024 11:30 AM Pedro Tinsley, DO Ophthalmology [phone] 07/06/2024 8:40 AM (Arrive by 8:25 AM) Alfonso Manning MD Neurology [phone] 07/06/2024 11:00 AM Leon Live PA-C [facility] [phone] 07/14/2024 2:30 PM (Arrive by 2:15 PM) [facility] Cardiology [phone] 07/21/2024 10:00 AM [facility] Radiology [phone] 08/18/2024 10:20 AM Cielo Marvin Ar Laboratory [phone] 08/21/2024 3:00 PM (Arrive by 2:45 PM) José Miguel Cullen CRNP Rheumatology [phone] 08/25/2024 3:30 PM (Arrive by 3:15 PM) Arianna Szymanski MD Hematology Oncology [phone] 09/11/2024 12:50 PM (Arrive by 12:35 PM) Dasha Nelson PA-C Dermatology [phone] 10/05/2024 1:30 PM (Arrive by 1:15 PM) Charles Ortega, Cardiology [phone] Yamilka Wells RN documented in this encounter Plan of Treatment Upcoming Encounters Date Type Department Care Team (Late st Contact Info) Description 06/14/2024 11:00 AM EDT Scheduled Telephone [facility] [place], [facility] [address] [phone] [facility], Nurse [facility] [address] [place] [address] 06/22/2024 11:00 AM EDT Home Visit [facility] [place], [facility] [address] [place] [address] Leon Live PA-C [address] [place] [address] 06/22/2024 2:30 PM EDT Office Visit Urogynecology [facility] [address] [place] [address] Quincy Garcia MD [address] [place] [address] 06/25/2024 9:00 AM EDT Office Visit Family Medicine [address] [place] [phone] Rafa Bergman MD [address] [place] [address] [place] [address] 06/26/2024 11:30 AM EDT Office Visit Ophthalmology, [facility] [address] [place] [address] Pedro Tinsley, [address] [place] [address] 07/06/2024 8:40 AM EDT Office Visit Neurology [facility] [address] [place] [address] Alfonso Manning MD [address] [place] [address] 07/06/2024 11:00 AM EDT Home Visit [facility] [place], [facility] [address] [place] [address] Leon Live PA-C [address] [place] [address] 07/14/2024 2:30 PM EDT Cardiac Studies Cardiology [address] [place] [address] [facility] [address] [place] [address] 07/21/2024 10:00 AM EDT Imaging Radiology [facility] [address] [place] [phone] 08/18/2024 10:20 AM EDT Laboratory Laboratory [address] [place] [phone] [place] [address] 08/21/2024 3:00 PM EDT Office Visit Rheumatology [address] [place] [phone] José Miguel Cullen CRNP [address] [place] [address] [place] [address] 08/25/2024 3:30 PM EDT Office Visit Hematology/Oncology [facility] [place] [address] [place] [phone] Arianna Szymanski MD [address] [place] [address] 09/11/2024 12:50 PM EDT Office Visit Dermatology, Jesu Wilson [address] [place] [address] Dasha Nelson PA-C [address] [place] [address] 10/05/2024 1:30 PM EDT Office Visit Cardiology, [facility] [address] [place] [address] Charles Ortega, 132 [place] [address] Health Maintenance Due Date Last Done Comments Adult Wellness Visit 02/06/2018 02/06/2017 Depression Screening 07/17/2022 07/17/2021 COVID-19 Vaccine ( season) 2023 02/05/2022, 08/02/2021, 02/28/2021, Additional history exists Influenza Vaccine (FLU shot) (#1) 2023 04/19/2023, 01/30/2022, 12/28/2020, Additional history exists Albumin/Creatinine Ratio 02/13/2024 023, 03/21/2022, 04/19/2021, Additional history exists HbA1c 04/26/2024 04/26/2023, 03/02, 04/19/2021, Additional history exists CKD PHOS USE SMARTSET 52651 06/26/202405/31, 04/19/2021, 11/27/2019, Additional history exists DXA Scan 07/18/2024 07/18/2022, 06/30, 12/22/2019, Additional history exists GFR 12/08/2024 06/07/2024, 01/30, 11/05/2023, Additional history exists CKD HGB USE SMARTSET 88460 02/16/202502/16, 02/17/2024, 06/27/2023, Additional history exists TSH [...] D LEVEL ONCE IN A LIFETIME-USE SMARTSET# 67990 Completed 06/27/2023, 11/06/2021, 12/28/2019, Additional history exists [...] encounter Medical Devices Implanted Type Area Microsoft Architect Device Identifier Shelf Expiration Date Model / Serial / Lot Lens Intraoc 21.5 - [id number] - [id number] Implanted:Qty: 1 on 05/12/2019 by Yury Brady MD at OR [facility] Right: Eye [employer] 12/30/2023 [id number] / [id number] / [id number] Lens Intraoc 22.5 - [id number] - [id number] Implanted:Qty: 1 on 04/05/2020 by Yury Brady MD at OR [facility] Left: Eye [employer]OM[employer] 09/28/2024 [id number] / [id number] / [id number] documented as of this encounter Additional Health Concerns Infection Onset Date Last Indicated Resolved Time RSV 06/05/2024 06/05/2024 documented as of this encounter Advance Directives Documents on File Type Date Recorded Patient Associate Curator Expl anation Advance Directives and Living Will [...] Agen t (per Health Care Power of It Business Process Architect document) Guille Urban Adult Child Health Care Agen t (per Health Care Power of It Business Process Architect document) [email or web address] om Care Teams Furnace Setter Relationship Specialty Start Date End Date Rafa Bermgan MD [address] [place] [address] [place] [address] PCP - General Family Medicine 04/19/21 documented as of this encounter
--- OUTSIDE RECORDS SUMMARY | 2024-07-24 00:03 | External Medical Summary | Summary of Care ---
Author Name Unknown Organization [facility] Address [address] [place] [facility] [facility] [place] [address] Phone [phone] Care Team Providers Care Chlorinator Operator Name Role Phone Rafa Bergman MD Primary Care Provide r Reason for Visit * Reason Onset Date Comments [facility]: Maintenance 06/10/2024 Encounter Details Date Type Department Care Team (Late st Contact Info) Description 06/10/2024 11:00 AM EDT Scheduled Telephone [facility], [facility] [address] [facility] [place] [address] [facility], Nurse [facility] [address] [facility] [place] [address] Allergies Active Allergy Reactions Criticality Noted Date Comments Colchicine Diarrhea 06/16/2018 Daptomycin 01/05/2015 Shortness of breath Imipenem Edema airway High 01/05/2015 Metoprolol Low 01/23/2021 Other reaction(s): fatigue Zoledronic Acid 04/24/2012 Myalgias, fever, chills, vomiting x 2 days Sulfa Antibiotics 12/22/2002 Bactrim--itchy all over, eyes swollen documented as of this encounter (statuses as of 06/10/2024) Medications ASPIRIN 81 MG PO TABS Take [...] goal LDL below 70,Coronary artery disease involving [place] coronary artery of [place] heart without angina pectoris TAKE ONE TABLET BY MOUTH IN THE MORNING 90 Tablet 3 05/25/2024 7:44 AM EST 4 Active Propranolol HCl 10 MG Oral Tablet (Inderal)Indicat ions:Sinus tachycardia,Tach y-chintan syndrome (HCC),Coronary artery disease involving [place] coronary artery of [place] heart without angina pectoris,Presenc e of cardiac [...] as of this encounter (statuses as of 06/10/2024) Active Problems Problem Noted Date Diagnosed Date Migraine without aura and wi thout status migrainosus, not intractable 04/16/2024 Assessment & Plan (04/16/2024 4:06 PM EST): Continue magnesium and riboflavin Reports gabapentin was offered by neurology, will reach out to neurology regarding starting 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 04/16/2024 Nevus of 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 History of IA (myocardial infarction) 11/27/2022 Assessment & Plan (04/16/2024 [...] of [place] heart without angina pectoris 07/08/2018 Overview (11/21/2023): [...] as of this encounter (statuses as of 06/10/2024) Resolved Problems Problem Noted Date Diagnosed Date Resolved Date Purulent endophthalmitis of right eye 01/03/2023 11/08/2023 Other pulmonary embolism wit h acute cor pulmonale 10/01/2022 04/26/2023 Overview (04/26/2023): history Medical home patient encounter 09/13/2022 11/08/2023 Atherosclerosis of coronary artery of [place] heart [...] filter 02/28/2015 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 11/2018 CKD (chronic kidney disease) stage 2, GFR 60-89 ml/min 03/12/2019 documented as of this encounter (statuses as of 06/10/2024) Immunizations Name Administration Dates Next Due COVID-19 [...] 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 file 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 Not on file Not on file documented as of this encounter Miscellaneous Notes * Telephone Encounter - Mary Huang RN - 06/10/2024 10:42 AM EDT [facility] Teleph[facility] Follow-Up Call [facility] Subprogram: Focused Care Management (3-9 months) Follow Up Call Type: Routine follow up call / Status Check Acute issue requiring follow-up call: Other: follow up on sob, +RSV, bilateral pleural effusions Objective: 06/08/2024 1:55 PM 06/07/2024 12:54 PM 06/06/2024 12:21 PM 06/06/2024 12:05 PM 06/06/2024 11:05 AM VITALS ACROSS ENCOUNTERS BP 138/80 118/62 118/68 124/72 120/70 Pulse 70 95 Remote Patient Monitoring: NONE Oxygen Needs: NO supplemental oxygen needs identified DME Needs: NO DME needs identified Medications: New medication(s) added: medrol dose pack-finished Subjective: Condition Status: Improvement in symptoms but not at baseline Current Concerns: Pt reports that she continues to improve. Pt states her breathing is back to baseline. Denies fever/chills. States that her only symptom thatremains is fatigue, but understands this may linger. She is eating and drinking well. Reinforced to monitor for and report increased sob, cough, fever/chills, decline in activity tolerance and report to [facility]. Pt verbalizes understanding and able to repeat back instruction correctly. Disposition: Issue resolved. All appropriate follow up scheduled. Future Visits Scheduled: Future Appointments-next 60 days Date/Time Provider Specialty Dept Phone 06/10/2024 11:00 AM Region, Nurse Malena Mary [facility] [phone] 06/12/2024 3:00 PM Olinda Briggs RN [facility] [phone] 06/22/2024 11:00 AM Leon Live PA-C [facility] [phone] 06/22/2024 2:30 PM (Arrive by 2:15 PM) Quincy Garcia MD Gynecology Urology [phone] 06/25/2024 9:00 AM (Arrive by 8:45 AM) Rafa Bergman MD Family Medicine [phone] 06/26/2024 11:30 AM Pedro Tinsley DO Ophthalmology [phone] 07/06/2024 8:40 AM (Arrive by 8:25 AM) Alfonso Manning MD Neurology [phone] 07/06/2024 11:00 AM Leon Live PA-C [facility] [phone] 07/14/2024 2:30 PM (Arrive by 2:15 PM) [facility] Cardiology [phone] 07/21/2024 10:00 AM D[facility] Radiology [phone] 08/18/2024 10:20 AM Cielo Marvin [facility] Laboratory [phone] 08/21/2024 3:00 PM (Arrive by 2:45 PM) José Miguel Cullen CRNP Rheumatology [phone] 08/25/2024 3:30 PM (Arrive by 3:15 PM) Arianna Szymanski MD Hematology Oncology [phone] 09/11/2024 12:50 PM (Arrive by 12:35 PM) Dasha Nelson PA-C Dermatology [phone] 10/05/2024 1:30 PM (Arrive by 1:15 PM) Charles Ortega, DO Cardiology [phone] Mary Huang, RN documented in this encounter Plan of Treatment Upcoming Encounters Date Type Department Care Team (Late st Contact Info) Description 06/12/2024 3:00 PM EDT [facility] Visit [facility] [place] [address] [address] Olinda Briggs RN [address] [place] [address] 06/22/2024 11:00 AM EDT Home Visit [facility] [place] [address] [place] [address] Leon Live PA-C [address] [place] [address] 06/22/2024 2:30 PM EDT Office Visit Urogynecology [facility] [address] [place] [address] Quincy Garcia MD [address] [place] [address] 06/25/2024 9:00 AM EDT Office Visit Family Medicine [address] [place] [phone] Rafa Bergman MD [address] [place] [address] [place] [address] 06/26/2024 11:30 AM EDT Office Visit Ophthalmology, [facility] [address] [facility] [place] [address] Pedro Tinsley DO [address] [place] [address] 07/06/2024 8:40 AM EDT Office Visit Neurology [facility] [address] [place] [address] Alfonso Manning MD [address] [place] [address] 07/06/2024 11:00 AM EDT [facility] [place] [place] [address] Leon Live PA-C [facility] [place] [address] 07/14/2024 2:30 PM EDT Cardiac Studies Cardiology [address] [place] [address] Cadence Horne [facility] [place] [address] 07/21/2024 10:00 AM EDT Imaging Radiology [facility] [address] [facility] [place] [phone] 08/18/2024 10:20 AM EDT Laboratory Laboratory [address] [place] [phone] [place] [address] 08/21/2024 3:00 PM EDT Office Visit Rheumatology [address] [place] [phone] José Miguel Cullen CRNP [address] [facility] [place], [place] [address] 08/25/2024 3:30 PM EDT Office Visit Hematology/Oncology [facility] [address] [place] [phone] Arianna Szymanski MD [address] [facility] [place] [address] 09/11/2024 12:50 PM EDT Office Visit Dermatology, Jesu Wilson [address] [place] [address] Dasha Nelson PA-C [address] [place] [address] 10/05/2024 1:30 PM EDT Office Visit Cardiology, [facility] [address] [place] [address] Charles Ortega DO [address] [place] [address] Health Maintenance Due Date Last Done Comments Adult Wellness Visit 02/06/2018 02/06/2017 Depression Screening 07/17/2022 07/17/2021 COVID-19 Vaccine ( season) 2023 02/05/2022, 08/02/2021, 02/28/2021, Additional history exists Influenza Vaccine (FLU shot) (#1) 2023 04/19/2023, 01/30/2022, 12/28/2020, Additional history exists Albumin/Creatinine Ratio 02/13/2024 023, 03/21/2022, 04/19/2021, Additional history exists HbA1c 04/26/2024 04/26/2023, 03/02, 04/19/2021, Additional history exists CKD PHOS USE SMARTSET 75462 06/26/202405/31, 04/19/2021, 11/27/2019, Additional history exists DXA Scan 07/18/2024 07/18/2022, 06/30, 12/22/2019, Additional history exists GFR 12/08/2024 06/07/2024, 01/30, 11/05/2023, Additional history exists CKD HGB USE SMARTSET 22679 02/16/202502/16, 02/17/2024, 06/27/2023, Additional history exists TSH [...] D LEVEL ONCE IN A LIFETIME-USE SMARTSET# 30897 Completed 06/27/2023, 11/06/2021, 12/28/2019, Additional history exists [...] this encounter Medical Devices Implanted Type Area Receipt And Report Clerk Device Identifier Shelf Expiration Date Model / Serial / Lot Lens Intraoc 21.5 - [id number] - [id number] Implanted:Qty: 1 on 05/12/2019 by Yury Brady MD at OR [facility] Right: Eye [employer] 12/30/2023 [id number] / [id number] / [id number] Lens Intraoc .5 - [id number] - [id number] Implanted:Qty: 1 on 04/05/2020 by Yury Brady MD at OR [facility] Left: Eye [employer] 09/28/2024 [id number] / [id number] / [id number] documented as of this encounter Additional Health Concerns Infection Onset Date Last Indicated Resolved Time RSV 06/05/2024 06/05/2024 documented as of this encounter Advance Directives Documents on File Type Date Recorded Patient Director Marketing Analytics Expl anation Advance Directives and Living Will [...] Agen t (per Health Care Power of Mail Order Sorter document) Guille Urban Adult Child Health Care Agen t (per Health Care Power of Mail Order Sorter document) [email or web address] om Care Teams Chlorinator Operator Relationship Specialty Start Date End Date Rafa Bergman MD [address] [place] [address] [place] [phone] PCP - General Family Medicine 04/19/21 documented as of this encounter
--- OUTSIDE RECORDS SUMMARY | 2024-07-24 00:03 | External Medical Summary | Summary of Care ---
Author Name Unknown Organization [facility] Address [address] [place] [address] Phone [phone] Care Team Providers Care Apiarist Name Role Phone Rafa Bergman MD Primary Care Provide r Reason for Visit * Reason Onset Date Comments Appointment 06/12/2024 Encounter Details Date Type Department Care Team (Late st Contact Info) Description 06/12/2024 Telephone [facility], [facility] [address] [place] [address] Deb Nelson, ASHLEY [address] [place] [address] Appointment Allergies Active Allergy Reactions Criticality Noted Date Comments Colchicine Diarrhea 06/16/2018 Daptomycin 01/05/2015 Shortness of breath Imipenem Edema airway High 01/05/2015 Metoprolol Low 01/23/2021 Other reaction(s): fatigue Zoledronic Acid 04/24/2012 Myalgias, fever, chills, vomiting x 2 days Sulfa Antibiotics 12/22/2002 Bactrim--itchy all over, eyes swollen documented as of this encounter (statuses as of 06/12/2024) Medications ASPIRIN 81 MG PO TABS Take [...] goal LDL below 70,Coronary artery disease involving [place] coronary artery of [place] heart without angina pectoris TAKE ONE TABLET BY MOUTH IN THE MORNING 90 Tablet 3 05/25/2024 7:44 AM EST 4 Active Propranolol HCl 10 MG Oral Tablet (Inderal)Indicat ions:Sinus tachycardia,Tach y-chintan syndrome (HCC),Coronary artery disease involving sit[place] coronary artery of sitka heart without angina pectoris,Presenc e of cardiac [...] as of this encounter (statuses as of 06/12/2024) Active Problems Problem Noted Date Diagnosed Date [...] S/P angioplasty with stent 11/27/2018 Atherosclerosis of sitka co ronary artery of sitka heart without angina pectoris 07/08/2018 Overview (11/21/2023): history of NSTEMI status post AMIE to LAD (culprit) and RCA, 04/28/2018 Assessment & Plan (01/24/2024 4:40 PM EDT): Cardiac rehab at [facility] 2x week Assessment & Plan (11/21/2023 [...] as of this encounter (statuses as of 06/12/2024) Resolved Problems Problem Noted Date Diagnosed Date Resolved Date Purulent endophthalmitis of right eye 01/03/2023 11/08/2023 Other pulmonary embolism wit h acute cor pulmonale 10/01/2022 04/26/2023 Overview (04/26/2023): history Medical home patient encounter 09/13/2022 11/08/2023 Atherosclerosis of coronary artery of sit[place] heart without angina pectoris 09/10/2022 10/31/2022 Hypothyroidism [...] ICD-10 update of inactive term Mixed dyslipidemia 05/13/200304/29/200 9 Overview (04/29/2008): Resolved per Duplicate Protocol [...] filter 02/28/2015 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 Also Called AMENDIA s/w Deb she advised we would need to call [phone] called lmom to schedule appt. documented in this encounter Plan of Treatment Upcoming Encounters Date Type Department Care Team (Late st Contact Info) Description 06/13/2024 12:00 PM EDT Scheduled Telephone [facility] at [address] [place] [address] [facility], Nurse [facility] [place] [address] [place] [address] 06/14/2024 11:00 AM EDT Scheduled Telephone [facility], [facility] [address] [place] [address] [facility] Nurse [facility] [address] [place] [address] 06/22/2024 11:00 AM EDT Home Visit [facility], [facility] [address] [place] [address] Leon Live PA-C [address] [place] [address] 06/22/2024 2:30 PM EDT Office Visit Urogynecology [facility] [address] [place] [address] Quincy Garcia MD [address] [place] [address] 06/25/2024 9:00 AM EDT Office Visit Family Medicine [address] [place] [phone] Rafa Bergman MD [address] [place] [address] [place] [address] 06/26/2024 11:30 AM EDT Office Visit Ophthalmology, [facility] [address] [place] [address] Pedro Tinsley DO [address] [place] [address] 07/06/2024 8:40 AM EDT Office Visit Neurology [facility] [address] [place] [address] Alfonso Manning MD [address] [place] [address] 07/06/2024 11:00 AM EDT [facility] Visit [facility] [place], [facility] [address] [place] [address] Leon Live PA-C [address] [place] [address] 07/14/2024 2:30 PM EDT Cardiac Studies Cardiology [address] [place] [address] Cadence Horne [facility] [address] [place] [address] 07/21/2024 10:00 AM EDT Imaging Radiology [facility] [address] [place] [phone] 08/18/2024 10:20 AM EDT Laboratory Laboratory [address] [place] [phone] [place] [address] 08/21/2024 3:00 PM EDT Office Visit Rheumatology [address] [place] [phone] José Miguel Cullen CRNP [address] [place] [address] [place] [address] 08/25/2024 3:30 PM EDT Office Visit Hematology/Oncology [employer] [address] [place] [place] [phone] Arianna Szymanski MD [address] [place] [address] 09/11/2024 12:50 PM EDT Office Visit Dermatology, [address] [place] [address] Dasha Nelson PA-C [address] [place] [address] 10/05/2024 1:30 PM EDT Office Visit Cardiology, [facility] [address] [place] [address] Charles Ortega DO [address] [place] [address] Health Maintenance Due Date Last Done Comments Adult Wellness Visit 02/06/2018 02/06/2017 Depression Screening 07/17/2022 07/17/2021 COVID-19 Vaccine ( season) 2023 02/05/2022, 08/02/2021, 02/28/2021, Additional history exists Influenza Vaccine (FLU shot) (#1) 2023 04/19/2023, 01/30/2022, 12/28/2020, Additional history exists Albumin/Creatinine Ratio 02/13/2024 023, 03/21/2022, 04/19/2021, Additional history exists HbA1c 04/26/2024 04/26/2023, 03/02, 04/19/2021, Additional history exists CKD PHOS USE SMARTSET 15567 06/26/202405/31, 04/19/2021, 11/27/2019, Additional history exists DXA Scan 07/18/2024 07/18/2022, 06/30, 12/22/2019, Additional history exists GFR 12/08/2024 06/07/2024, 01/30, 11/05/2023, Additional history exists CKD HGB USE SMARTSET 45666 02/16/202502/16, 02/17/2024, 06/27/2023, Additional history exists TSH [...] D LEVEL ONCE IN A LIFETIME-USE SMARTSET# [id number] Completed 06/27/2023, 11/06/2021, 12/28/2019, Additional history exists [...] this encounter Medical Devices Implanted Type Area Medical Housekeeper Device Identifier Shelf Expiration Date Model / Serial / Lot Lens Intraoc 21.5 - [id number] - [id number] Implanted:Qty: 1 on 05/12/2019 by Yury Brady MD at OR [facility] Right: Eye [employer] 12/30/2023 [id number] / [id number] / [id number] Lens Intraoc 22.5 - [id number] - [id number] Implanted:Qty: 1 on 04/05/2020 by Yury Brady MD at OR [facility] Left: Eye [employer]OM[employer] 09/28/2024 [id number] / [id number] / [id number] documented as of this encounter Additional Health Concerns Infection Onset Date Last Indicated Resolved Time RSV 06/05/2024 06/05/2024 documented as of this encounter Advance Directives Documents on File Type Date Recorded Patient Trimmer Machine Expl anation Advance Directives and Living Will [...] Agen t (per Health Care Power of Telesales Representative document) Guille Urban Adult Child Health Care Agen t (per Health Care Power of Telesales Representative document) [email or web address] Care Teams Apiarist Relationship Specialty Start Date End Date Rafa Bergman MD [address] [place] [address] [place] [address] PCP - General Family Medicine 04/19/21 documented as of this encounter
--- OUTSIDE RECORDS SUMMARY | 2024-07-24 00:03 | External Medical Summary | Summary of Care ---
Author Name Unknown Organization [facility] Address [address] [place] [place] [address] Phone [phone] Care Team Providers Care Poker Manager Name Role Phone Rafa Bergman MD Primary Care Provide r Reason for Visit * Reason Onset Date Comments Acute Problem Follow Up 06/14/2024 Encounter Details Date Type Department Care Team (Late st Contact Info) Description 06/14/2024 11:00 AM EDT Scheduled Telephone [facility], [facility] [address] [facility] [place] [address] [facility], Nurse [facility] [address] [facility] [place] [address] Allergies Active Allergy Reactions Criticality Noted Date Comments Colchicine Diarrhea 06/16/2018 Daptomycin 01/05/2015 Shortness of breath Imipenem Edema airway High 01/05/2015 Metoprolol Low 01/23/2021 Other reaction(s): fatigue Zoledronic Acid 04/24/2012 Myalgias, fever, chills, vomiting x 2 days Sulfa Antibiotics 12/22/2002 Bactrim--itchy all over, eyes swollen documented as of this encounter (statuses as of 06/14/2024) Medications ASPIRIN 81 MG PO TABS Take [...] goal LDL below 70,Coronary artery disease involving [place] coronary artery of [place] heart without angina pectoris TAKE ONE TABLET BY MOUTH IN THE MORNING 90 Tablet 3 05/25/2024 7:44 AM EST 4 Active Propranolol HCl 10 MG Oral Tablet (Inderal)Indicat ions:Sinus tachycardia,Tach y-chintan syndrome (HCC),Coronary artery disease involving [place] coronary artery of [place] heart without angina pectoris,Presenc e of cardiac [...] as of this encounter (statuses as of 06/14/2024) Active Problems Problem Noted Date Diagnosed Date [...] of [place] heart without angina pectoris 07/08/2018 Overview (11/21/2023): [...] as of this encounter (statuses as of 06/14/2024) Resolved Problems Problem Noted Date Diagnosed Date Resolved Date Purulent endophthalmitis of right eye 01/03/2023 11/08/2023 Other pulmonary embolism wit h acute cor pulmonale 10/01/2022 04/26/2023 Overview (04/26/2023): history Medical home patient encounter 09/13/2022 11/08/2023 Atherosclerosis of coronary artery of [place] heart [...] vagina with ASC-US 07/20/2009 05/11/2014 Overview (01/02/2011): 2/09 - LGSIL 07/08 colpo - bx = [...] filter 02/28/2015 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 Pt awaiting thoracentesis to be scheduled at [facility] for management of pleural effusion. Was given 80mg IV lasix 06/12 and directed to take 40mg PO 06/13 and 06/14. Spoke with patient who states "I may feel just a speck better then I did yesterday" She notes she I fatigued and has minimal tolerance for activity. Denies chest pain or SOB. Ongoing cough. Bilat LE edema improved over past 2 days. Has not taken Lasix yet today, states she will take it at 2pm. No acute needs at time of call. Will call [facility] with any change in condition. documented in this encounter Plan of Treatment Upcoming Encounters Date Type Department Care Team (Late st Contact Info) Description 06/22/2024 11:00 AM EDT Home Visit [facility], [facility] [address] [place] [address] Leon Live PA-C [address] [place] [address] 06/22/2024 2:30 PM EDT Office Visit Urogynecology [facility] [address] [place] [address] Quincy Garcia MD [address] [place] [address] 06/25/2024 9:00 AM EDT Office Visit Family Medicine [address] [place] [phone] Rafa Bergman MD [address] [place] [address] [place] [address] 06/26/2024 11:30 AM EDT Office Visit Ophthalmology, [facility] [address] [place] [address] Pedro Tinsley DO [address] [place] [address] 07/06/2024 8:40 AM EDT Office Visit Neurology [facility] [address] [facility] [place] [address] Alfonso Manning MD [address] [facility] [place] [address] 07/06/2024 11:00 AM EDT Home Visit [facility], [facility] [address] [place] [address] Leon Live PA-C [address] [place] [address] 07/14/2024 2:30 PM EDT Cardiac Studies Cardiology [address] [place] [address] [facility] [address] [place] [address] 07/21/2024 10:00 AM EDT Imaging Radiology [facility] 132 [facility] [place] [phone] 08/18/2024 10:20 AM EDT Laboratory Laboratory [address] [place] [phone] [place] [address] 08/21/2024 3:00 PM EDT Office Visit Rheumatology [address] [place] [phone] José Miguel Cullen CRNP [facility] [place] [address] 08/25/2024 3:30 PM EDT Office Visit Hematology/Oncology [facility] [place] [address] [facility] [place] [phone] Arianna Szymanski MD [address] [facility] [place] [address] 09/11/2024 12:50 PM EDT Office Visit Dermatology, Jesu Wilson [address] [place] [address] Dasha Nelson PA-C [address] [place] [address] 10/05/2024 1:30 PM EDT Office Visit Cardiology, [facility] [address] [place] [address] Charles Ortega O, [address] [place] [address] Health Maintenance Due Date Last Done Comments Adult Wellness Visit 02/06/2018 02/06/2017 Depression Screening 07/17/2022 07/17/2021 COVID-19 Vaccine ( season) 2023 02/05/2022, 08/02/2021, 02/28/2021, Additional history exists Influenza Vaccine (FLU shot) (#1) 2023 04/19/2023, 01/30/2022, 12/28/2020, Additional history exists Albumin/Creatinine Ratio 02/13/2024 023, 03/21/2022, 04/19/2021, Additional history exists HbA1c 04/26/2024 04/26/2023, 03/02, 04/19/2021, Additional history exists CKD PHOS USE SMARTSET 83729 06/26/202405/31, 04/19/2021, 11/27/2019, Additional history exists DXA Scan 07/18/2024 07/18/2022, 06/30, 12/22/2019, Additional history exists GFR 12/08/2024 06/07/2024, 01/30, 11/05/2023, Additional history exists CKD HGB USE SMARTSET 62547 02/16/202502/16, 02/17/2024, 06/27/2023, Additional history exists TSH [...] D LEVEL ONCE IN A LIFETIME-USE SMARTSET# 57936 Completed 06/27/2023, 11/06/2021, 12/28/2019, Additional history exists [...] this encounter Medical Devices Implanted Type Area [place] Device Identifier Shelf Expiration Date Model / Serial / Lot Lens Intraoc 21.5 - [id number] - [id number] Implanted:Qty: 1 on 05/12/2019 by Yury Brady MD at OR [facility] Right: Eye [employer] 12/30/2023 [id number] / [id number] / [id number] Lens Intraoc 22.5 - [id number] - [id number] Implanted:Qty: 1 on 04/05/2020 by Yury Brady MD at OR [facility] Left: Eye [employer] 09/28/2024 [id number] / [id number] / [id number] documented as of this encounter Additional Health Concerns Infection Onset Date Last Indicated Resolved Time RSV 06/05/2024 06/05/2024 documented as of this encounter Advance Directives Documents on File Type Date Recorded 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
--- OUTSIDE RECORDS SUMMARY | 2024-07-24 00:03 | External Medical Summary | Summary of Care ---
Author Name Unknown Organization [facility] Address [address] [facility] [place] [address] Phone [phone] Care Team Providers Care Jetting Machine Operator Name Role Phone Rafa Bergman MD Primary Care Provide r Encounter Details Date Type Department Care Team (Late st Contact Info) Description 06/12/2024 3:00 PM EDT [facility] [place] [address] Olinda Briggs, CHRISTINA [address] [place] [address] Pleural effusion on left* Allergies Active Allergy [...] goal LDL below 70,Coronary artery disease involving [place] coronary artery of [place] heart without angina pectoris TAKE ONE TABLET BY MOUTH IN THE MORNING 90 Tablet 3 05/25/2024 7:44 AM EST 4 Active Propranolol HCl 10 MG Oral Tablet (Inderal)Indicat ions:Sinus tachycardia,Tach y-chintan syndrome (HCC),Coronary artery disease involving [place] coronary artery of [place] heart without angina pectoris,Presenc e of cardiac [...] 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 History of [place] (myocardial infarction) 11/27/2022 Assessment & Plan (04/16/2024 [...] S/P angioplasty with stent 11/27/2018 Atherosclerosis of [place] co ronary artery of [place] heart without angina pectoris 07/08/2018 Overview (11/21/2023): [...] 09/13/2022 11/08/2023 Atherosclerosis of coronary artery of [place] heart without angina pectoris 09/10/2022 10/31/2022 Hypothyroidism [...] filter 02/28/2015 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 Provided from [email or web address]. Awaiting appointment at [facility] for thoracentesis- Will be followed up on [...] Route IV Push Documented By Olinda Briggs, RN Care Gaps: Care Gaps Care gaps closed this contact: Education;Home based procedures (06/12/24 0150) Type of education: Clinical/disease (06/12/24 1639) Procedure performed: IV medication (06/12/24 1639) * Angela Kohli CRNP - 06/12/2024 2:54 PM EDT Patient with recurrent dyspnea from know pleural effusions, left greater than right. Had declined thoracentesis last week, but now agreeable with ongoing/recurring symptoms. In process of being rescheduled. Plan -Lasix 80 mg IVP today, then PO Lasix 40 mg daily on Saturday and Saturday -Potassium 10 meq x3 days LEYDA Gudino [facility], [address] [place] [address] documented in this encounter Plan of Treatment Upcoming Encounters Date Type Department Care Team (Late st Contact Info) Description 06/13/2024 12:00 PM EDT Scheduled Telephone [facility], [facility] [address] [place] [address] [facility], Nurse [place] [address] [address] [place] [address] 06/14/2024 11:00 AM EDT Scheduled Telephone [facility], [facility] [address] [place] [address] [facility], Nurse [facility] [address] [place] [address] 06/22/2024 11:00 AM EDT Home Visit [facility], [facility] [address] [place] [address] Leon Live PA-C [address] [place] [address] 06/22/2024 2:30 PM EDT Office Visit Urogynecology [facility] [address] [place] [address] Quincy Gracia MD [address] [place] [address] 06/25/2024 9:00 AM EDT Office Visit Family Medicine [address] [place] [phone] Rafa Bergman MD [address] [place] [address] [place] [address] 06/26/2024 11:30 AM EDT Office Visit Ophthalmology, [facility] [address] [place] [address] Pedro Tinsley DO [address] [place] [address] 07/06/2024 8:40 AM EDT Office Visit Neurology [facility] [address] [facility] [place] [address] Alfonso Manning MD [address] [facility] [place] [address] 07/06/2024 11:00 AM EDT Home Visit [facility] at [facility] [address] [place] [address] Leon Live PA-C [address] [place] [address] 07/14/2024 2:30 PM EDT Cardiac Studies Cardiology [address] [place] [address] [facility] [address] [place] [address] 07/21/2024 10:00 AM EDT Imaging Radiology [facility] [address] [place] [phone] 08/18/2024 10:20 AM EDT Laboratory Laboratory [address] [place] [phone] [place], Lab [address] [place] [address] 08/21/2024 3:00 PM EDT Office Visit Rheumatology [address] [place] [phone] José Miguel Cullen CRNP [address] [place] [address] [place] [address] 08/25/2024 3:30 PM EDT Office Visit Hematology/Oncology [facility] [address] [place] [phone] Arianna Szymanski MD [address] [place] [address] 09/11/2024 12:50 PM EDT Office Visit Dermatology, Jesu Wilson [address] [facility] [address] [place] [address] Dasha Nelson, PADelaneyC [address] [place] [address] 10/05/2024 1:30 PM EDT Office Visit Cardiology, [facility] [address] [place] [address] Charles Ortega DO [address] [place] [address] Health Maintenance Due Date Last Done Comments Adult Wellness Visit 02/06/2018 02/06/2017 Depression Screening 07/17/2022 07/17/2021 COVID-19 Vaccine ( season) 2023 02/05/2022, 08/02/2021, 02/28/2021, Additional history exists Influenza Vaccine (FLU shot) (#1) 2023 04/19/2023, 01/30/2022, 12/28/2020, Additional history exists Albumin/Creatinine Ratio 02/13/2024 023, 03/21/2022, 04/19/2021, Additional history exists HbA1c 04/26/2024 04/26/2023, 03/02, 04/19/2021, Additional history exists CKD PHOS USE SMARTSET 86989 06/26/202405/31, 04/19/2021, 11/27/2019, Additional history exists DXA Scan 07/18/2024 07/18/2022, 06/30, 12/22/2019, Additional history exists GFR 12/08/2024 06/07/2024, 01/30, 11/05/2023, Additional history exists CKD HGB USE SMARTSET 05039 02/16/202502/16, 02/17/2024, 06/27/2023, Additional history exists TSH [...] D LEVEL ONCE IN A LIFETIME-USE SMARTSET# 93538 Completed 06/27/2023, 11/06/2021, 12/28/2019, Additional history exists [...] this encounter Medical Devices Implanted Type Area Planning Intern Device Identifier Shelf Expiration Date Model / Serial / Lot Lens Intraoc 21.5 - [id number] - [id number] Implanted:Qty: 1 on 05/12/2019 by Yury Brady MD at OR [facility] Right: Eye [employer] 12/30/2023 [id number] / [id number] / [id number] Lens Intraoc 22.5 - [id number] - [id number] Implanted:Qty: 1 on 04/05/2020 by Yury Brady MD at OR [facility] Left: Eye [employer]OM[employer] 09/28/2024 [id number] / [id number] / [id number] documented as of this encounter Visit Diagnoses Diagnosis Hypertensive kidney disease with stage 3a chronic kidney disease- Primary Atherosclerosis of [place] coronary artery of [place] heart without angina pectoris Dyslipidemia, goal LDL below 70 Other and unspecified hyperlipidemia History of pulmonary embolism Personal history of pulmonary embolism Tachy-chintan syndrome (HCC) Sinoatrial node dysfunction S/P placement of cardiac pacemaker Cardiac pacemaker in situ Arthralgia of right hip Gastro-esophageal reflux disease with esophagitis, without bleeding Sinus tachycardia Other specified cardiac dysrhythmias Coronary artery disease involving [place] coronary artery of [place] heart without angina pectoris Presence of cardiac pacemaker Cardiac pacemaker in situ Palpitations HTN, goal below 140/90 Unspecified essential hypertension Hypertensive kidney disease with stage 3a chronic kidney disease- Primary Dyslipidemia, goal LDL below 70 Other and unspecified hyperlipidemia Gastro-esophageal reflux disease with esophagitis, without bleeding Atherosclerosis of [place] coronary artery of [place] heart without angina pectoris Advanced care planning/counseling discussion- Primary Other specified counseling Hypertensive kidney disease with stage 3a chronic kidney disease (HCC) History of [place] (myocardial infarction) Old myocardial infarction Tachy-chintan syndrome [...] Documents on File Type Date Recorded 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
--- OUTSIDE RECORDS SUMMARY | 2024-07-24 00:04 | External Medical Summary | Summary of Care ---
Author Name Unknown Organization [facility] Address [address] [facility] [place] [address] Phone [phone] Care Team Providers Care Ground Water Technician Name Role Phone Rafa Bergman MD Primary Care Provide r Reason for Visit * Reason Onset Date Comments [facility]: Maintenance 06/08/2024 Encounter Details Date Type Department Care Team (Latest Contact Info) Description 06/08/2024 10:00 AM EDT Scheduled Telephone [facility], [facility] [address] [facility] [place] [address] [facility], Nurse [facility] [address] [facility] [place] [address] Pleural effusion on left* Allergies Active Allergy Reactions Criticality Noted Date Comments Colchicine Diarrhea 06/16/2018 Daptomycin 01/05/2015 Shortness of breath Imipenem Edema airway High 01/05/2015 Metoprolol Low 01/23/2021 Other reaction(s): fatigue Zoledronic Acid 04/24/2012 Myalgias, fever, chills, vomiting x 2 days Sulfa Antibiotics 12/22/2002 Bactrim--itchy all over, eyes swollen documented as of this encounter (statuses as of 06/08/2024) Medications ASPIRIN 81 MG PO TABS Take [...] tachycardia,Tach y-chintan syndrome (HCC),Coronary artery disease involving [place] coronary artery of [place] heart without angina pectoris,Presenc e of cardiac [...] 135 Tablet 05/14/2024 5:55 PM EST Active levoFLOXacin 750 MG Oral Tablet Take [...] on left 80 mg IV PUSH ONCE 06/08/2024 06/08/2024 Ended documented as of this encounter (statuses as of 06/08/2024) Active Problems Problem Noted Date Diagnosed Date [...] 4:40 PM EDT): Cardiac rehab at [facility] 2x week Assessment & Plan (11/21/2023 [...] as of this encounter (statuses as of 06/08/2024) Resolved Problems Problem Noted Date Diagnosed Date [...] as of this encounter (statuses as of 06/08/2024) Immunizations Name Administration Dates Next Due COVID-19 [...] 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 Added follow up calls. * Addendum Note - Kate Maya DO - 06/08/2024 10:30 AM EDTAddended by: KATE MAYA on: 06/08/2024 10:30 AM Modules accepted: Orders * Telephone Encounter - Kate Maya DO - 06/08/2024 10:25 AM EDT [facility] Remote Medical Command Note Recommendations: Reviewed patient's chart in detail. Overall this is a relatively complex case that I think is appropriately being managed at home. In regards to her need for antibiotics, since there is no definitive infiltrate on chest x-ray and her swab was positive for a virus I would recommend discontinuing the levofloxacin. I would continuethe Medrol Dosepak. In regards to the pleural effusions which are bilateral in nature. Unfortunately due to the imagingcompany that does this in the home I am not able to actually view the images myself. The patient did have an echocardiogram late in 2022 which did not demonstrate any significant abnormalities that would explain any sort of increased volume. The patient is demonstrating improvement in her clinical symptoms but what is unclear is if that is due to IV Lasix or due to the Medrol Dosepak. One thing Iwould like the patient to be asked is whether or not her urinary output has increased. Given the fact that she has improved with IV Lasix I think doing 1 single dose of furosemide 80 mg which does stray from our current protocols however the patient is furosemide naive, would be appropriate. What may be happening is the pleural effusions could be present due to RSV and what I would recommend is that the primary care doctor consider an outpatient echocardiogram once her infection has cleared Orders: Plan BNP, NT-PRO Furosemide (Lasix) inj 80 mg To Do: Please see below for follow up items to be completed and correspondence: SUNNY to Rehana's Care Team environmental conservation officer Pool please work on the following: contact the caller with advice and orders as above Kate Maya DO Remote Medical Command - [facility] 06/08/2024 Scheduled appointments in the next 60 days: Future Appointments-next 60 days Date/Time Provider Specialty Dept Phone 06/12/2024 3:00 PM Olinda Briggs RN [facility] [phone] 06/22/2024 11:00 AM Leon Live PA-C [facility] [phone] 06/22/2024 2:30 PM (Arrive by 2:15 PM) Quincy Garcia MD Gynecology Urology [phone] 06/25/2024 9:00 AM (Arrive by 8:45 AM) Rafa Bergman MD Family Medicine [phone] 06/26/2024 11:30 AM Pedro Tinsley DO Ophthalmology [phone] 07/06/2024 8:40 AM (Arrive by 8:25 AM) Alfonso Manning MD Neurology [phone] 07/06/2024 11:00 AM Leon iLve PA-C [facility] [phone] 07/14/2024 2:30 PM (Arrive by 2:15 PM) [facility] Cardiology [phone] 07/21/2024 10:00 AM [facility] Radiology [phone] 08/18/2024 10:20 AM [facility] Mo Laboratory [phone] 08/21/2024 3:00 PM (Arrive by 2:45 PM) José Miguel Cullen CRNP Rheumatology [phone] 08/25/2024 3:30 PM (Arrive by 3:15 PM) Arianna Szymanski MD Hematology Oncology [phone] 09/11/2024 12:50 PM (Arrive by 12:35 PM) Dasha Nelson PA-C Dermatology [phone] 10/05/2024 1:30 PM (Arrive by 1:15 PM) Charles Ortega DO Cardiology [phone] The above documentation was completed using the voice recognition dictation program Fluency Direct.As such, there may be misspellings, word substitutions, or other variations that should not change the essence of the clinical content of this encounter note. If there are questions, concerns or needfor further clarification, please contact me. Thank you. * Telephone Encounter - Mary Huang Dane, RN - 06/08/2024 9:39 AM EDT Images from the original note were not included. [facility] Telephonic Nurse Follow-Up Call [facility] Subprogram: Focused Care Management (3-9 months) Follow Up Call Type: 24 hour follow up Acute issue requiring follow-up call: IV lasix 06/06;06/07. Moderate L/pleural effusion 06/05 cxr, +RSV Objective: 06/07/2024 12:54 PM 06/06/2024 12:21 PM 06/06/2024 12:05 PM 06/06/2024 11:05 AM 06/05/2024 6:37 PM VITALS ACROSS ENCOUNTERS BP 118/62 118/68 124/72 120/70 138/60 Pulse 70 95 92 Remote Patient Monitoring: NONE Oxygen Needs: NO supplemental oxygen needs identified DME Needs: NO DME needs identified Medications: New medication(s) added: Levaquin 750mg 1 tab po every other day x 10 days 06/04- 06/14/24, Medrol dosepack started 06/04/24 IV lasix 80mg 06/05, 06/06, 06/07/24 Subjective: Condition Status: Improvement in symptoms but not at baseline Current Concerns: Patient is on for follow up call today s/p receiving IV lasix for sob related to moderate left pleural effusion, +RSV. Pt became ill with flu like symptoms of cough/congestion, chills around 05/27/24. Patient's symptomsdid not improve with conservative management and was started on Levaquin and medrol dose pack per above. Chest xray was also ordered and completed on 06/05/24 showing modest left pleural effusion, pcr also +RSV. Patient was seen 06/05,06/06,06/07/24 and given IV lasix 80mg each day. Orders placed by provider for left thoracentesis by IR at [facility] if symptoms do not improve. Pt had a repeat chest xray completed yesterday: Today, pt notes significant improvement in her SOB. Does not have a pulse ox in her home. Denies fever/chills. Has not Tylenol since yesterday. Able to tolerate more activity than she did prior to IVlasix, but not at baseline. Productive cough continues, but now sputum very pale yellow and sometimes clear. Taking coricidan HBP per package instructions for cough. Bp this am, 118/68, HR 83. Continues to have increased urine output from baseline. Does not do daily wts. Pt states her preference would be to avoid the thoracentesis if at all possible. Asking if additional IV lasix would help. Sending to care team / [facility] for additional recommendations. Disposition: Routed to [facility] and/or [facility] Care Team for further advice and Follow up call scheduled for tomorrow with LAST MARKER Data Warehouse Developer Future Visits Scheduled: Future Appointments-next 60 days Date/Time Provider Specialty Dept Phone 06/08/2024 10:00 AM Tariq, Nurse Malena Mary [facility] [phone] 06/12/2024 3:00 PM Olinda Briggs RN [facility] [phone] 06/22/2024 11:00 AM Leon Live PA-C [facility] [phone] 06/22/2024 2:30 PM (Arrive by 2:15 PM) Quincy Garcia MD Gynecology Urology [phone] 06/25/2024 9:00 AM (Arrive by 8:45 AM) Rafa Bergman MD Family Medicine [phone] 06/26/2024 11:30 AM Pedro Tinsley, Ophthalmology [phone] 07/06/2024 8:40 AM (Arrive by 8:25 AM) Alfonso Manning MD Neurology [phone] 07/06/2024 11:00 AM Leon Live PA-C [facility] [phone] 07/14/2024 2:30 PM (Arrive by 2:15 PM) [facility] Cardiology [phone] 07/21/2024 10:00 AM [facility] Radiology [phone] 08/18/2024 10:20 AM Cielo Marvin Mo Laboratory [phone] 08/21/2024 3:00 PM (Arrive by 2:45 PM) José Miguel Cullen CRNP Rheumatology [phone] 08/25/2024 3:30 PM (Arrive by 3:15 PM) Arianna Szymanski MD Hematology Oncology [phone] 09/11/2024 12:50 PM (Arrive by 12:35 PM) Dasha Nelson PA-C Dermatology [phone] 10/05/2024 1:30 PM (Arrive by 1:15 PM) Charles Ortega, DO Cardiology [phone] Mary Huang, RN documented in this encounter Plan of Treatment Upcoming Encounters Date Type Department Care Team (Late st Contact Info) Description 06/09/2024 10:15 AM EDT Scheduled Telephone [facility], [facility] [address] [place] [address] [facility], Nurse [address] [place] [address] 06/10/2024 11:00 AM EDT Scheduled Telephone [facility], [facility] [address] [place] [address] [facility], Nurse [facility] [address] [facility] [place] [address] 06/12/2024 3:00 PM EDT Home Visit [facility], [facility] [address] [place] [address] Olinda Briggs, CHRISTINA [address] [place] [address] 06/22/2024 11:00 AM EDT Home Visit [facility], [facility] [address] [place] [address] Leon Live PA-C [address] [place] [address] 06/22/2024 2:30 PM EDT Office Visit Urogynecology [facility] [address] [place] [address] Quincy Garcia MD [address] [place] [address] 06/25/2024 9:00 AM EDT Office Visit Family Medicine [address] [place] [phone] Rafa Bergman MD [address] [place] [address] [place] [address] 06/26/2024 11:30 AM EDT Office Visit Ophthalmology, [facility] [address] [place] [address] Pedro Tinsley DO [address] [place] [address] 07/06/2024 8:40 AM EDT Office Visit Neurology [facility] [address] [facility] [place] [address] Alfonso Manning MD [address] [place] [address] 07/06/2024 11:00 AM EDT [facility] Visit [facility] [address] [place] [address] Leon Live PA-C [address] [place] [address] 07/14/2024 2:30 PM EDT Cardiac Studies Cardiology [address] [place] [address] [facility] [address] [place] [address] 07/21/2024 10:00 AM EDT Imaging Radiology [facility] [address] [place] [phone] 08/18/2024 10:20 AM EDT Laboratory Laboratory [address] [place] [phone] [place] [address] 08/21/2024 3:00 PM EDT Office Visit Rheumatology [address] [place] [phone] José Miguel Cullen CRNP [address] [place] [address] [place] [address] 08/25/2024 3:30 PM EDT Office Visit Hematology/Oncology [facility] [address] [place] [phone] Arianna Szymanski MD [address] [place] [address] 09/11/2024 12:50 PM EDT Office Visit Dermatology, Jesu Wilson [address] [place] [address] Dasha Nelson, PADelaneyC [address] [place] [address] 10/05/2024 1:30 PM EDT Office Visit Cardiology, [facility] [address] [place] [address] Charles Ortega DO [address] [place] [address] Health Maintenance Due Date Last Done Comments Adult Wellness Visit 02/06/2018 02/06/2017 Depression Screening 07/17/2022 07/17/2021 COVID-19 Vaccine ( season) 2023 02/05/2022, 08/02/2021, 02/28/2021, Additional history exists Influenza Vaccine (FLU shot) (#1) 2023 04/19/2023, 01/30/2022, 12/28/2020, Additional history exists Albumin/Creatinine Ratio 02/13/2024 023, 03/21/2022, 04/19/2021, Additional history exists HbA1c 04/26/2024 04/26/2023, 03/02, 04/19/2021, Additional history exists CKD PHOS USE SMARTSET 93994 06/26/202405/31, 04/19/2021, 11/27/2019, Additional history exists DXA Scan 07/18/2024 07/18/2022, 06/30, 12/22/2019, Additional history exists GFR 12/08/2024 06/07/2024, 01/30, 11/05/2023, Additional history exists CKD HGB USE SMARTSET 69176 02/16/202502/16, 02/17/2024, 06/27/2023, Additional history exists TSH [...] D LEVEL ONCE IN A LIFETIME-USE SMARTSET# 81788 Completed 06/27/2023, 11/06/2021, 12/28/2019, Additional history exists [...] this encounter Medical Devices Implanted Type Area School Speech Therapist Device Identifier Shelf Expiration Date Model / Serial / Lot Lens Intraoc 21.5 - [id number] - [id number] Implanted:Qty: 1 on 05/12/2019 by Yury Brady MD at OR [facility] Right: Eye [employer] 12/30/2023 [id number] / [id number] / [id number] Lens Intraoc 22.5 - [id number] - [id number] Implanted:Qty: 1 on 04/05/2020 by Yury Brady MD at OR [facility] Left: Eye [employer] 09/28/2024 [id number] / [id number] / [id number] documented as of this encounter Results * BNP, NT-PRO (06/07/2024 2:30 PM EDT) BNP, NT-Pro 169 <300 pg/mL 06/08/2024 11:01 AM EDT [facility] Blood Venous blood specimen / Unknown Venipuncture / Unknown 06/07/2024 2:30 PM EDT 06/07/2024 3:31 PM EDT Narrative [facility] - 06/08/2024 11:01 AM EDT Exclude Heart Failure: <300 pg/mL Diagnose Heart Failure: Age <50 yr: >450 pg/mL 50-75 yr: >900 pg/mL >75 yr: >1800 pg/mL GFR is 30-59 mL/min: >1200 pg/mL or Age-adjusted values GFR <30 mL/min: do not use, not reliable Prognostic threshold: 1000 pg/mL us Kate Maya DO LAB BLOOD ORDERABLES Final Re sult [facility] [address] [place] [address] documented in this encounter Visit Diagnoses Diagnosis Hypertensive kidney disease with stage 3a chronic kidney disease- Primary Atherosclerosis of lower [place] coronary artery of [place] heart without angina pectoris Dyslipidemia, goal LDL below 70 Other and unspecified hyperlipidemia History of pulmonary embolism Personal history of pulmonary embolism Tachy-chintan syndrome (HCC) Sinoatrial node dysfunction S/P placement of cardiac pacemaker Cardiac pacemaker in situ Arthralgia of right hip Gastro-esophageal reflux disease with esophagitis, without bleeding Sinus tachycardia Other specified cardiac dysrhythmias Coronary artery disease involving lower [place] coronary artery of [place] heart without angina pectoris Presence of cardiac pacemaker Cardiac pacemaker in situ Palpitations HTN, goal below 140/90 Unspecified essential hypertension Hypertensive kidney disease with stage 3a chronic kidney disease- Primary Dyslipidemia, goal LDL below 70 Other and unspecified hyperlipidemia Gastro-esophageal reflux disease with esophagitis, without bleeding Atherosclerosis of lower [place] coronary artery of [place] heart without angina pectoris Advanced care planning/counseling [...] Documents on File Type Date Recorded Patient Nursing Project Coordinator Expl anation Advance Directives and Living Will [...] Agen t (per Health Care Power of Individual Pension Consultant document) Guille [facility] Adult Child Health Care Vika corey (per Health Care Power of Individual Pension Consultant document) [email or web address] om Care Teams Ground Water Technician Relationship Specialty Start Date End Date Rafa Bergman MD [address] [place] [address] [place] [address] PCP - General Family Medicine 04/19/21 documented as of this encounter
--- OUTSIDE RECORDS SUMMARY | 2024-07-24 00:04 | External Medical Summary | Summary of Care ---
Author Name Unknown Organization [facility] Address [address] [place] [facility] [place] [address] Phone [phone] Care Team Providers Care Pump Tester Name Role Phone Rafa Bergman MD Primary Care Provide r Reason for Visit * Reason Onset Date Comments [facility]: Maintenance 06/09/2024 Encounter Details Date Type Department Care Team (Late st Contact Info) Description 06/09/2024 10:15 AM EDT Scheduled Telephone [facility], [facility] [address] [facility] [place] [address] [facility], Nurse [facility] [address] [facility] [place] [address] Allergies Active Allergy Reactions Criticality Noted Date Comments Colchicine Diarrhea 06/16/2018 Daptomycin 01/05/2015 Shortness of breath Imipenem Edema airway High 01/05/2015 Metoprolol Low 01/23/2021 Other reaction(s): fatigue Zoledronic Acid 04/24/2012 Myalgias, fever, chills, vomiting x 2 days Sulfa Antibiotics 12/22/2002 Bactrim--itchy all over, eyes swollen documented as of this encounter (statuses as of 06/09/2024) Medications ASPIRIN 81 MG PO TABS Take [...] goal LDL below 70,Coronary artery disease involving [place] coronary artery of [place] heart without angina pectoris TAKE ONE TABLET BY MOUTH IN THE MORNING 90 Tablet 3 05/25/2024 7:44 AM EST 4 Active Propranolol HCl 10 MG Oral Tablet (Inderal)Indicat ions:Sinus tachycardia,Tach y-chintan syndrome (HCC),Coronary artery disease involving [place] coronary artery of [place] heart without angina pectoris,Presenc e of cardiac [...] as of this encounter (statuses as of 06/09/2024) Active Problems Problem Noted Date Diagnosed Date [...] 01/03/2023 History of ME (myocardial infarction) 11/27/2022 Assessment & Plan (04/16/2024 [...] with stent 11/27/2018 Atherosclerosis of [place] co ronary artery of [place] heart without angina pectoris 07/08/2018 Overview (11/21/2023): [...] as of this encounter (statuses as of 06/09/2024) Resolved Problems Problem Noted Date Diagnosed Date Resolved Date Purulent endophthalmitis of right eye 01/03/2023 11/08/2023 Other pulmonary embolism wit h acute cor pulmonale 10/01/2022 04/26/2023 Overview (04/26/2023): history Medical home patient encounter 09/13/2022 11/08/2023 Atherosclerosis of coronary artery of [place] heart without angina pectoris 09/10/2022 10/31/2022 [...] filter 02/28/2015 Atherosclerotic heart diseas e of [place] coronary artery with angina pectoris 11/2018 CKD (chronic kidney disease) stage 2, GFR 60-89 ml/min 03/12/2019 documented as of this encounter (statuses as of 06/09/2024) Immunizations Name Administration Dates Next Due COVID-19 [...] 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 So thankful [facility] program No cough, No SOB, No O2 Afebrile The 3 doses of IV Lasix made a big difference. She received a call this morning from the hospital for her procedure to drain fluid from her lungs,she told them she did not need it, feels great. They instructed her to call [facility] Thanked her for the call Advised her to call [facility] as soon as any of her symptoms return, do not hesitate to call. Pt agreed Routed to care team Gemini Kennedy RN, BSN pbx wire chiefSupervisor Inspection Room [phone] option #1 documented in this encounter Plan of Treatment Upcoming Encounters Date Type Department Care Team (Late st Contact Info) Description 06/10/2024 11:00 AM EDT Scheduled Telephone [facility], [facility] [address] [place] [address] [facility], Nurse [facility] [address] [place] [address] 06/12/2024 3:00 PM EDT [facility] Visit [facility], [facility] [address] [place] [address] Olinda Briggs RN [address] [place] [address] 06/22/2024 11:00 AM EDT [facility] Visit [facility], [facility] [address] [place] [address] Leon Live PA-C [address] [place] [address] 06/22/2024 2:30 PM EDT Office Visit Urogynecology [facility] [address] [place] [address] Quincy Garcia MD [address] [place] [address] 06/25/2024 9:00 AM EDT Office Visit Family Medicine [address] [place] [phone] Rafa Bergman MD [address] [place] [address] [place] [address] 06/26/2024 11:30 AM EDT Office Visit Ophthalmology, [facility] 132 [place] [address] Pedro Tinsley DO [address] [place] [address] 07/06/2024 8:40 AM EDT Office Visit Neurology [facility] Raina [place] [address] [place] [address] Alfonso Manning MD [address] [place] [address] 07/06/2024 11:00 AM EDT [facility] Visit [facility], [facility] [address] [place] [address] Leon Live PA-C [address] [place] [address] 07/14/2024 2:30 PM EDT Cardiac Studies Cardiology [address] [place] [address] [facility] [address] [place] [address] 07/21/2024 10:00 AM EDT Imaging Radiology [facility] [address] [place] [phone] 08/18/2024 10:20 AM EDT Laboratory Laboratory [address] [place] [phone] [facility] [address] [place] [address] 08/21/2024 3:00 PM EDT Office Visit Rheumatology [address] [place] [phone] José Miguel Cullen CRNP [address] [place] [address] [place] [address] 08/25/2024 3:30 PM EDT Office Visit Hematology/Oncology [facility] [address] [facility] [place], [place] [address] Arianna Szymanski MD [address] [facility] [place], [place] [address] 09/11/2024 12:50 PM EDT Office Visit Dermatology, Jesu Wilson [address] [place] [address] Dasha Nelson PA-C [address] [place] [address] 10/05/2024 1:30 PM EDT Office Visit Cardiology, [facility] 132 [place] [address] Charles Ortega DO [address] [place] [address] Health Maintenance Due Date Last Done Comments Adult Wellness Visit 02/06/2018 02/06/2017 Depression Screening 07/17/2022 07/17/2021 COVID-19 Vaccine ( season) 2023 02/05/2022, 08/02/2021, 02/28/2021, Additional history exists Influenza Vaccine (FLU shot) (#1) 2023 04/19/2023, 01/30/2022, 12/28/2020, Additional history exists Albumin/Creatinine Ratio 02/13/2024 023, 03/21/2022, 04/19/2021, Additional history exists HbA1c 04/26/2024 04/26/2023, 03/02, 04/19/2021, Additional history exists CKD PHOS USE SMARTSET 18527 06/26/2024 0310/2023, 04/19/2021, 11/27/2019, Additional history exists DXA Scan 07/18/2024 07/18/2022, 06/30, 12/22/2019, Additional history exists GFR 12/08/2024 06/07/2024, 01/30, 11/05/2023, Additional history exists CKD HGB USE SMARTSET 06673 02/16/202502/16, 02/17/2024, 06/27/2023, Additional history exists TSH [...] D LEVEL ONCE IN A LIFETIME-USE SMARTSET# 47489 Completed 06/27/2023, 11/06/2021, 12/28/2019, Additional history exists [...] this encounter Medical Devices Implanted Type Area Fiscal Services Manager Device Identifier Shelf Expiration Date Model / Serial / Lot Lens Intraoc 21.5 - [id number] - [id number] Implanted:Qty: 1 on 05/12/2019 by Yury Brady MD at OR [facility] Right: Eye [employer] LOM[employer] 12/30/2023 [id number] / [id number] / [id number] Lens Intraoc 22.5 - [id number] - [id number] Implanted:Qty: 1 on 04/05/2020 by Yury Brady MD at OR [facility] Left: Eye [employer]CH [employer] LOMB 09/28/2024 [id number] / [id number] / [id number] documented as of this encounter Additional Health Concerns Infection Onset Date Last Indicated Resolved Time RSV 06/05/2024 06/05/2024 documented as of this encounter Advance Directives Documents on File Type Date Recorded Patient Seamless Tube Roller Expl anation Advance Directives and Living Will 03/11/2018 Krissy Ashcarrie Isaacncer ADVANCE DIR ECTIVE * Full Code (Latest [...] Agen t (per Health Care Power of Depalletizer Operator document) Guille Urban Adult Child Health Care Agen t (per Health Care Power of Depalletizer Operator document) [email or web address] Care Teams Pump Tester Relationship Specialty Start Date End Date Rafa Bergman MD [address] [place] [address] [place] [phone] PCP - General Family Medicine 04/19/21 documented as of this encounter
--- OUTSIDE RECORDS SUMMARY | 2024-07-24 00:04 | External Medical Summary | Summary of Care ---
Author Name Unknown Organization [facility] Address [address] [facility] [place] [address] Phone [phone] Care Team Providers Care Smutter Name Role Phone Rafa Bergman MD Primary Care Provide r Encounter Details Date Type Department Care Team (Late st Contact Info) Description 06/08/2024 1:30 PM EDT [facility] [place] [address] Olinda Briggs, CHRISTINA [address] [place] [address] Allergies Active Allergy Reactions Criticality Noted Date [...] (01/24/2024 4:40 PM EDT): Cardiac rehab at [facility] 2x week Assessment & Plan (11/21/2023 [...] 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 Not on file Not on file documented as of this encounter Last Filed Vital Signs Vital Sign Reading Time Taken Comments Blood Pressure 138/80 06/08/2024 1:55 PM EDT Pulse - - Temperature 36.8 °C (98.2 °F) 06/08/2024 1:55 PM ED T Respiratory Rate 18 06/08/2024 1:55 PM EDT Oxygen Saturation 95% 06/08/2024 1:55 PM EDT Inhaled Oxygen Concentration - - Weight - - Height - - Body Mass Index - - documented in this encounter Progress Notes * Olinda Briggs RN - 06/08/2024 1:45 PM EDT Current Concerns: Patient seen for acute visit- received IV lasix 06/05, 06/06, 06/07- patient reports improved with medication. Continues with medrol. Per [facility]- stop Levaquin. Order for IV lasix 80mg today- IV placed left antecubital- tolerated well. Discontinued- pressure dressing applied. BNP added to lab drawn yesterday. VS wnl Lungs clear but diminished LLL Sob with exertion No LE edema noted Voiding without difficulty Bowels wnl Appetite good Taking fluids well Denies pain Scheduled for follow up phone calls x 2 days. Physical Exam: Physical Exam Constitutional: Appearance: Normal [...] Review of Systems: Review of Systems Constitutional: Negative. Respiratory: Positive for cough. Cardiovascular: Negative. Gastrointestinal: Negative. Genitourinary: Negative. Musculoskeletal: Negative. Skin: Negative. Neurological: Positive for weakness (residual). Hematological: Negative. Psychiatric/Behavioral: Negative. Care Plan Goal Progress: Orders Placed: No orders of the defined types were placed in this encounter. Medications Given: Care Gaps: documented in this encounter Plan of Treatment Upcoming Encounters Date Type Department Care Team (Late st Contact Info) Description 06/10/2024 11:00 AM EDT [facility]uled Telephone [facility] [address] [place] [address] [facility], Nurse [address] [place] [address] 06/12/2024 3:00 PM EDT [facility] [place], [facility] [address] [place] [address] Olinda Briggs RN 132 [facility] [place] [address] 06/22/2024 11:00 AM EDT [facility] Visit [facility] [place], [place] [address] [place] [address] Leon Live PA-C [address] [place] [address] 06/22/2024 2:30 PM EDT Office Visit Urogynecology [facility] [address] [place] [address] Quincy Garcia MD [address] [place] [address] 06/25/2024 9:00 AM EDT Office Visit Family Medicine [address] [place] [address] Rafa Bergman MD [address] [place] [address] [place] [address] 06/26/2024 11:30 AM EDT Office Visit Ophthalmology, [facility] [address] [place] [address] Pedro Tinsley, [address] [place] [address] 07/06/2024 8:40 AM EDT Office Visit Neurology [facility] [address] [facility] [place] [address] Alfonso Manning MD [address] [facility] [place] [address] 07/06/2024 11:00 AM EDT [facility] Visit [facility], [facility] [address] [place] [address] Leon Live PA-C [address] [place] [address] 07/14/2024 2:30 PM EDT Cardiac Studies Cardiology [address] [place] [address] [facility] [address] [place] [address] 07/21/2024 10:00 AM EDT Imaging Radiology [facility] [address] [place] [phone] 08/18/2024 10:20 AM EDT Laboratory Laboratory [address] [place] [phone] [address] [place] [address] 08/21/2024 3:00 PM EDT Office Visit Rheumatology [address] [place] [phone] José Miguel Cullen CRNP [address] [place] [address] [place] [address] 08/25/2024 3:30 PM EDT Office Visit Hematology/Oncology [facility] [address] [place] [address] Arianna Szymanski MD [address] [place] [address] 09/11/2024 12:50 PM EDT Office Visit Dermatology, Jesu Wilson [address] [place] [address] Dasha Nelson PA-C 27 [place] [address] 10/05/2024 1:30 PM EDT Office Visit Cardiology, [facility] [address] [place] [address] Charles Ortega O, DO [address] [place] [address] Health Maintenance Due Date Last Done Comments Adult Wellness Visit 02/06/2018 02/06/2017 Depression Screening 07/17/2022 07/17/2021 COVID-19 Vaccine ( season) 2023 02/05/2022, 08/02/2021, 02/28/2021, Additional history exists Influenza Vaccine (FLU shot) (#1) 2023 04/19/2023, 01/30/2022, 12/28/2020, Additional history exists Albumin/Creatinine Ratio 02/13/2024 023, 03/21/2022, 04/19/2021, Additional history exists HbA1c 04/26/2024 04/26/2023, 03/02, 04/19/2021, Additional history exists CKD PHOS USE SMARTSET 12031 06/26/202405/31, 04/19/2021, 11/27/2019, Additional history exists DXA Scan 07/18/2024 07/18/2022, 06/30, 12/22/2019, Additional history exists GFR 12/08/2024 06/07/2024, 01/30, 11/05/2023, Additional history exists CKD HGB USE SMARTSET 52720 02/16/202502/16, 02/17/2024, 06/27/2023, Additional history exists TSH [...] D LEVEL ONCE IN A LIFETIME-USE SMARTSET# 25038 Completed 06/27/2023, 11/06/2021, 12/28/2019, Additional history exists [...] this encounter Medical Devices Implanted Type Area Area Representative Device Identifier Shelf Expiration Date Model / Serial / Lot Lens Intraoc 21.5 - [id number] - [id number] Implanted:Qty: 1 on 05/12/2019 by Yury Brady MD at OR [facility] Right: Eye [employer] LOM[employer] 12/30/2023 [id number] / [id number] / [id number] Lens Intraoc 22.5 - [id number] - [id number] Implanted:Qty: 1 on 04/05/2020 by Yury Brady MD at OR [facility] Left: Eye BAUSCH [employer] LOMB 09/28/2024 [id number] / [id number] / [id number] documented as of this encounter Administered Medications Inactive Administered Medications - up to 3 most recent administrations Medication Order MAR Action Action Date Dose Rate Site Furosemide (Lasix) inj 80 mg 80 mg, IV Push, ONCE, On Sat06/08/24 at 1100, For 1 doseIndications:Pleural effusion on left Given 06/08/2024 2:18 PM EDT 80 mg Antecubital Left documented in this encounter Additional Health Concerns Infection Onset Date Last Indicated Resolved Time RSV 06/05/2024 06/05/2024 documented as of this encounter Advance Directives Documents on File Type Date Recorded 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
--- OUTSIDE RECORDS SUMMARY | 2024-07-24 00:04 | External Medical Summary | Summary of Care ---
Author Name Unknown Organization [facility] Address [address] [place] [address] Phone [phone] Care Team Providers Care Maintenance Mechanic Technician Name Role Phone Rafa Bergman MD Primary Care Provide r Reason for Visit * Reason Onset Date Comments Scheduling 06/09/2024 Encounter Details Date Type Department Care Team (Late st Contact Info) Description 06/09/2024 Telephone [facility] [place] [address] [place] [address] Angela Kohli CRNP [address] [place] [address] Scheduling Allergies Active Allergy Reactions Criticality Noted [...] goal LDL below 70,Coronary artery disease involving [place] coronary artery of [place] heart without angina pectoris TAKE ONE TABLET BY MOUTH IN THE MORNING 90 Tablet 3 05/25/2024 7:44 AM EST 4 Active Propranolol HCl 10 MG Oral Tablet (Inderal)Indicat ions:Sinus tachycardia,Tach y-chintan syndrome (HCC),Coronary artery disease involving [place] coronary artery of [place] heart without angina pectoris,Presenc e of cardiac [...] 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 but patient states she feels better no coughing and shortness of breath and feels she doesn't need the thoracentesis . documented in this encounter Plan of Treatment Upcoming Encounters Date Type Department Care Team (Late st Contact Info) Description 06/10/2024 11:00 AM EDT Scheduled Telephone [facility], [facility] [address] [place] [address] [facility], Nurse [address] [place] [address] 06/12/2024 3:00 PM EDT [facility] Visit [facility], [facility] [address] [address] Olinda Briggs RN [address] [place] [address] 06/22/2024 11:00 AM EDT [facility] Visit [facility], [facility] [address] [place] [address] Leon Live PA-C [address] [place] [address] 06/22/2024 2:30 PM EDT Office Visit Urogynecology [facility] [address] [place] [address] Quincy Garcia MD [address] [place] [address] 06/25/2024 9:00 AM EDT Office Visit Family Medicine [address] [phone] Rafa Bergman MD [address] [place] [address] [place] [address] 06/26/2024 11:30 AM EDT Office Visit Ophthalmology, [facility] [address] [place] [address] Pedro Tinsley DO [address] [place] [address] 07/06/2024 8:40 AM EDT Office Visit Neurology [facility] [address] [place] [address] Alfonso Manning MD [address] [place] [address] 07/06/2024 11:00 AM EDT [facility], [place] [address] [place] [address] Leon Live PA-C [address] [place] [address] 07/14/2024 2:30 PM EDT Cardiac Studies Cardiology [address] [place] [address] [place], Pacer [facility] [address] [place] [address] 07/21/2024 10:00 AM EDT Imaging Radiology [facility] [address] [place] [phone] 08/18/2024 10:20 AM EDT Laboratory Laboratory [address] [place] [phone] [address] [place] [address] 08/21/2024 3:00 PM EDT Office Visit Rheumatology [address] [place] [phone] José Miguel Cullen CRNP [facility] [place] [address] 08/25/2024 3:30 PM EDT Office Visit Hematology/Oncology [facility] [place] [address] [place] [phone] Arianna Szymanski MD [address] [place] [address] 09/11/2024 12:50 PM EDT Office Visit Dermatology, Jesu Wilson [address] [place] [address] Dasha Nelson PA-C [address] [place] [address] 10/05/2024 1:30 PM EDT Office Visit Cardiology, [facility] [address] [place] [address] Charles Ortega, [address] [place] [address] Health Maintenance Due Date Last Done Comments Adult Wellness Visit 02/06/2018 02/06/2017 Depression Screening 07/17/2022 07/17/2021 COVID-19 Vaccine ( season) 2023 02/05/2022, 08/02/2021, 02/28/2021, Additional history exists Influenza Vaccine (FLU shot) (#1) 2023 04/19/2023, 01/30/2022, 12/28/2020, Additional history exists Albumin/Creatinine Ratio 02/13/2024 023, 03/21/2022, 04/19/2021, Additional history exists HbA1c 04/26/2024 04/26/2023, 03/02, 04/19/2021, Additional history exists CKD PHOS USE SMARTSET 13367 06/26/202405/31, 04/19/2021, 11/27/2019, Additional history exists DXA Scan 07/18/2024 07/18/2022, 06/30, 12/22/2019, Additional history exists GFR 12/08/2024 06/07/2024, 01/30, 11/05/2023, Additional history exists CKD HGB USE SMARTSET 39482 02/16/202502/16, 02/17/2024, 06/27/2023, Additional history exists TSH [...] D LEVEL ONCE IN A LIFETIME-USE SMARTSET# 49974 Completed 06/27/2023, 11/06/2021, 12/28/2019, Additional history exists [...] this encounter Medical Devices Implanted Type Area Pellet Machine Operator Device Identifier Shelf Expiration Date Model / Serial / Lot Lens Intraoc 21.5 - [id number] - [id number] Implanted:Qty: 1 on 05/12/2019 by Yury Brady MD at OR [facility] Right: Eye [employer] LOM[employer] 12/30/2023 [id number] / [id number] / [id number] Lens Intraoc 22.5 - [id number] - [id number] Implanted:Qty: 1 on 04/05/2020 by Yury Brady MD at OR [facility] Left: Eye BAUSCH [employer] LOMB 09/28/2024 [id number] / [id number] / [id number] documented as of this encounter Additional Health Concerns Infection Onset Date Last Indicated Resolved Time RSV 06/05/2024 06/05/2024 documented as of this encounter Advance Directives Documents on File Type Date Recorded Patient Sign Erector Expl anation Advance Directives and Living Will [...] Agen t (per Health Care Power of Digital Retoucher document) Guille Isaacncer Adult Child Health Care Agen t (per Health Care Power of Digital Retoucher document) [email or web address] Care Teams Maintenance Mechanic Technician Relationship Specialty Start Date End Date Rafa Bergman MD [address] [place] [address] [place] [phone] PCP - General Family Medicine 04/19/21 documented as of this encounter
--- OUTSIDE RECORDS SUMMARY | 2024-07-24 00:04 | External Medical Summary | Summary of Care ---
Author Name Unknown Organization [facility] Address [address] [place] [facility] [place] [address] Phone [phone] Care Team Providers Care Corporate Fitness Program Coordinator Name Role Phone Rafa Bergman MD Primary Care Provide r Reason for Visit * Reason Onset Date Comments [facility]: Maintenance 06/08/2024 Encounter Details Date Type Department Care Team (Latest Contact Info) Description 06/08/2024 10:00 AM EDT Scheduled Telephone [facility], [facility] [address] [place] [address] [facility], Nurse [facility] [address] [place] [address] Pleural effusion on left* Allergies Active Allergy [...] goal LDL below 70,Coronary artery disease involving venetie ira coronary artery of venetie ira heart without angina pectoris TAKE ONE TABLET BY MOUTH IN THE MORNING 90 Tablet 3 05/25/2024 7:44 AM EST 4 Active Propranolol HCl 10 MG Oral Tablet (Inderal)Indicat ions:Sinus tachycardia,Tach y-chintan syndrome (HCC),Coronary artery disease involving venetie ira coronary artery of venetie ira heart without angina pectoris,Presenc e of cardiac [...] S/P angioplasty with stent 11/27/2018 Atherosclerosis of venetie ira co ronary artery of venetie ira heart without angina pectoris 07/08/2018 Overview (11/21/2023): history of NSTEMI status post AMIE to LAD (culprit) and RCA, 04/28/2018 Assessment & Plan (01/24/2024 4:40 PM EDT): Cardiac rehab at [facility] 2x week Assessment & Plan (11/21/2023 5:32 [...] 09/13/2022 11/08/2023 Atherosclerosis of coronary artery of venetie ira heart without angina pectoris 09/10/2022 10/31/2022 [...] filter 02/28/2015 Atherosclerotic heart diseas e of venetie ira coronary artery with angina pectoris 11/2018 [...] 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 Not on [...] and correspondence: SUNNY to Rehana's Care Team supplier specialist Pool please work on the following: contact the caller with advice and orders as above Kate Maya DO [facility] 06/08/2024 Scheduled appointments in the next 60 days: Future Appointments-next 60 days Date/Time Provider Specialty Dept Phone 06/12/2024 3:00 PM Olinda Briggs RN [facility] [phone] 06/22/2024 11:00 AM Leon Live PA-C [facility] [phone] 06/22/2024 2:30 PM (Arrive by 2:15 PM) Quincy Garcia MD Gynecology Urology [phone] 06/25/2024 9:00 AM (Arrive by 8:45 AM) Rafa Bergman MD Family Medicine [phone] 06/26/2024 11:30 AM Pedro Tinsley DO Ophthalmology [phone] 07/06/2024 8:40 AM (Arrive by 8:25 AM) Alfonso Manning MD Neurology [phone] 07/06/2024 11:00 AM Leon Live PA-C [facility] [phone] 07/14/2024 2:30 PM (Arrive by 2:15 PM) [facility] Cardiology [phone] 07/21/2024 10:00 AM [facility] Radiology [phone] 08/18/2024 10:20 AM [place] [facility] Laboratory [phone] 08/21/2024 3:00 PM (Arrive by 2:45 PM) José Miguel Cullen CRNP Rheumatology [phone] 08/25/2024 3:30 PM (Arrive by 3:15 PM) Arianna Szymanski MD Hematology Oncology [phone] 09/11/2024 12:50 PM (Arrive by 12:35 PM) Dasha Nelson PA-C Dermatology [phone] 10/05/2024 1:30 PM (Arrive by 1:15 PM) Charles Ortega DO Cardiology [phone] The above documentation was completed using the [...] [facility] Telephonic Nurse Follow-Up Call [place] [...] provider for left thoracentesis by IR at [facility] if symptoms do not improve. Pt had [...] would help. Sending to care team / [facility] for additional recommendations. 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 Mechanic Future Visits Scheduled: Future Appointments-next 60 days Date/Time Provider Specialty Dept Phone 06/08/2024 10:00 AM Tariq, Nurse Malena Mary [facility] [phone] 06/12/2024 3:00 PM Olinda Briggs RN [facility] [phone] 06/22/2024 11:00 AM Leon Live PA-C [facility] [phone] 06/22/2024 2:30 PM (Arrive by 2:15 PM) Quincy Garcia MD Gynecology Urology [phone] 06/25/2024 9:00 AM (Arrive by 8:45 AM) Rafa Bergman MD Family Medicine [phone] 06/26/2024 11:30 AM Pedro Tinsley, Ophthalmology [phone] 07/06/2024 8:40 AM (Arrive by 8:25 AM) Alfonso Manning MD Neurology [phone] 07/06/2024 11:00 AM Leon Live PA-C [facility] [phone] 07/14/2024 2:30 PM (Arrive by 2:15 PM) [facility] Cardiology [phone] 07/21/2024 10:00 AM [facility] Radiology [phone] 08/18/2024 10:20 AM [facility] Mo Laboratory [phone] 08/21/2024 3:00 PM (Arrive by 2:45 PM) José Miguel Cullen CRNP Rheumatology [phone] 08/25/2024 3:30 PM (Arrive by 3:15 PM) Arianna Szymanski MD Hematology Oncology [phone] 09/11/2024 12:50 PM (Arrive by 12:35 PM) Dasha Nelson PA-C Dermatology [phone] 10/05/2024 1:30 PM (Arrive by 1:15 PM) Charles Ortega, DO Cardiology [phone] Mary Huang, RN documented in this encounter Plan of Treatment Upcoming Encounters Date Type Department Care Team (Late st Contact Info) Description 06/09/2024 10:15 AM EDT Scheduled Telephone [facility], [facility] [address] [place] [address] [facility], Nurse [address] [place] [address] 06/10/2024 11:00 AM EDT Scheduled Telephone [facility], [facility] [address] [place] [address] [facility], Nurse [facility] [address] [place] [address] 06/12/2024 3:00 PM EDT Home Visit [facility], [facility] [address] [place] [address] Olinda Briggs, CHRISTINA [address] [place] [address] 06/22/2024 11:00 AM EDT Home Visit [facility], [facility] [address] [place] [address] Leon Live PA-C [address] [place] [address] 06/22/2024 2:30 PM EDT Office Visit Urogynecology [facility] [address] [place] [address] Quincy Garcia MD [address] [place] [address] 06/25/2024 9:00 AM EDT Office Visit Family Medicine [address] [place] [phone] Rafa Bergman MD [address] [place] [address] [place] [address] 06/26/2024 11:30 AM EDT Office Visit Ophthalmology, [facility] [address] [place] [address] Pedro Tinsley DO [address] [place] [address] 07/06/2024 8:40 AM EDT Office Visit Neurology [facility] [address] [facility] [place] [address] Alfonso Manning MD [address] [place] [address] 07/06/2024 11:00 AM EDT [facility] Visit [facility] [address] [place] [address] Leon Live PA-C [address] [place] [address] 07/14/2024 2:30 PM EDT Cardiac Studies Cardiology [address] [place] [address] [facility] [address] [place] [address] 07/21/2024 10:00 AM EDT Imaging Radiology [facility] [address] [place] [phone] 08/18/2024 10:20 AM EDT Laboratory Laboratory [address] [place] [phone] [place] [address] 08/21/2024 3:00 PM EDT Office Visit Rheumatology [address] [place] [phone] José Miguel Cullen CRNP [address] [place] [address] [place] [address] 08/25/2024 3:30 PM EDT Office Visit Hematology/Oncology [facility] [address] [place] [phone] Arianna Szymanski MD [address] [place] [address] 09/11/2024 12:50 PM EDT Office Visit Dermatology, Jesu Wilson [address] [place] [address] Dasha Nelson, PADelaneyC [address] [place] [address] 10/05/2024 1:30 PM EDT Office Visit Cardiology, [facility] [address] [place] [address] Charles Ortega DO [address] [place] [address] Health Maintenance Due Date Last Done Comments Adult Wellness Visit 02/06/2018 02/06/2017 Depression Screening 07/17/2022 07/17/2021 COVID-19 Vaccine ( season) 2023 02/05/2022, 08/02/2021, 02/28/2021, Additional history exists Influenza Vaccine (FLU shot) (#1) 2023 04/19/2023, 01/30/2022, 12/28/2020, Additional history exists Albumin/Creatinine Ratio 02/13/2024 023, 03/21/2022, 04/19/2021, Additional history exists HbA1c 04/26/2024 04/26/2023, 03/02, 04/19/2021, Additional history exists CKD PHOS USE SMARTSET 77502 06/26/202405/31, 04/19/2021, 11/27/2019, Additional history exists DXA Scan 07/18/2024 07/18/2022, 06/30, 12/22/2019, Additional history exists GFR 12/08/2024 06/07/2024, 01/30, 11/05/2023, Additional history exists CKD HGB USE SMARTSET 92213 02/16/202502/16, 02/17/2024, 06/27/2023, Additional history exists TSH [...] D LEVEL ONCE IN A LIFETIME-USE SMARTSET# 11391 Completed 06/27/2023, 11/06/2021, 12/28/2019, Additional history exists [...] this encounter Medical Devices Implanted Type Area Heel Lining Paster Device Identifier Shelf Expiration Date Model / Serial / Lot Lens Intraoc 21.5 - [id number] - [id number] Implanted:Qty: 1 on 05/12/2019 by Yury Brady MD at OR [facility] Right: Eye [employer] 12/30/2023 [id number] / [id number] / [id number] Lens Intraoc 22.5 - [id number] - [id number] Implanted:Qty: 1 on 04/05/2020 by Yury Brady MD at OR [facility] Left: Eye [employer]OMB 09/28/2024 [id number] / [id number] / [id number] documented as of this encounter Results * BNP, NT-PRO (06/07/2024 2:30 PM EDT) BNP, NT-Pro 169 <300 pg/mL 06/08/2024 11:01 AM EDT [facility] Blood Venous blood specimen / Unknown Venipuncture / Unknown 06/07/2024 2:30 PM EDT 06/07/2024 3:31 PM EDT Narrative [facility] - 06/08/2024 11:01 AM EDT Exclude Heart Failure: <300 pg/mL Diagnose Heart Failure: Age <50 yr: >450 pg/mL 50-75 yr: >900 pg/mL >75 yr: >1800 pg/mL GFR is 30-59 mL/min: >1200 pg/mL or Age-adjusted values GFR <30 mL/min: do not use, not reliable Prognostic threshold: 1000 pg/mL us Kate Maya DO LAB BLOOD ORDERABLES Final Re sult [facility] [address] [place] [address] documented in this encounter Visit Diagnoses Diagnosis Hypertensive kidney disease with stage 3a chronic kidney disease- Primary Atherosclerosis of venetie ira coronary artery of venetie ira heart without angina pectoris Dyslipidemia, goal LDL below 70 Other and unspecified hyperlipidemia History of pulmonary embolism Personal history of pulmonary embolism Tachy-chintan syndrome (HCC) Sinoatrial node dysfunction S/P placement of cardiac pacemaker Cardiac pacemaker in situ Arthralgia of right hip Gastro-esophageal reflux disease with esophagitis, without bleeding Sinus tachycardia Other specified cardiac dysrhythmias Coronary artery disease involving venetie ira coronary artery of venetie ira heart without angina pectoris Presence of cardiac pacemaker Cardiac pacemaker in situ Palpitations HTN, goal below 140/90 Unspecified essential hypertension Hypertensive kidney disease with stage 3a chronic kidney disease- Primary Dyslipidemia, goal LDL below 70 Other and unspecified hyperlipidemia Gastro-esophageal reflux disease with esophagitis, without bleeding Atherosclerosis of venetie ira coronary artery of venetie ira heart without angina pectoris Advanced care planning/counseling discussion- Primary Other specified counseling Hypertensive kidney disease with stage 3a chronic kidney disease (HCC) History of DC (myocardial infarction) Old myocardial infarction Tachy-chintan syndrome [...] Documents on File Type Date Recorded 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
--- OUTSIDE RECORDS SUMMARY | 2024-07-24 00:05 | External Medical Summary | Summary of Care ---
Author Name Unknown Organization [facility] Address [address] [place] [address] Phone [phone] Care Team Providers Care Marine Electronics Technician Name Role Phone Rafa Bergman MD Primary Care Provide r Reason for Referral * Precert (Within 10 days (routine)) - Authorized Specialty Diagnoses / Procedures Referred By Ethan nicole Referred To Contact Radiology Diagnoses Pleural effusion on left Procedures IR CHEST THORACENTESIS Kathy Kohli CRNP [address] [place] [address] Phone: tel: fax: Referral ID Status Reason Start Date Expiration Date V isits Requested Visits Authorized [id number] Authorized 06/08/2024 999 999 Reason for Visit * Reason Onset Date Comments [facility]: Maintenance 06/05/2024 Encounter Details Date Type Department Care Team (Late st Contact Info) Description 06/05/2024 Telephone [facility], [facility] [address] [place] [address] Paulina Romeo, RN [address] [facility] [place] [address] [facility]: Maintenance Allergies Active Allergy [...] goal LDL below 70,Coronary artery disease involving north fork coronary artery of north fork heart without angina pectoris TAKE ONE TABLET BY MOUTH IN THE MORNING 90 Tablet 3 05/25/2024 7:44 AM EST 4 Active Propranolol HCl 10 MG Oral Tablet (Inderal)Indicat ions:Sinus tachycardia,Tach y-chintan syndrome (HCC),Coronary artery disease involving north fork coronary artery of north fork heart without angina pectoris,Presenc e of cardiac [...] 90 Tablet 3 04/17/2024 1:21 PM EST Active Magnesium Oxide -Mg Supplement 400 MG Oral Capsule (Magnesium Extra Strength) Take 1 capsule by mouth in the morning. 90 Capsule 3 04/17/2024 1:21 PM EST Active Gabapentin 100 MG Oral Capsule (Neurontin) Take one cap at bedtime for a week then one cap in the morning and at bedtime for a week and one cap three times a day 90 Capsule Active Allopurinol 300 MG Oral Tablet (Zyloprim) [...] on left 80 mg IV PUSH ONCE 06/05/2024 06/05/2024 Ended potassium chloride ER tab 10 mEqIndications:Pleural effusion on left 10 mEq OR ONCE 06/05/2024 06/05/2024 Ended documented as of this encounter (statuses [...] S/P angioplasty with stent 11/27/2018 Atherosclerosis of north fork co ronary artery of north fork heart without angina pectoris 07/08/2018 Overview (11/21/2023): history of NSTEMI status post AMIE to LAD (culprit) and RCA, 04/28/2018 Assessment & Plan (01/24/2024 4:40 PM EDT): Cardiac rehab at [facility] 2x week Assessment & Plan (11/21/2023 5:32 [...] 09/13/2022 11/08/2023 Atherosclerosis of coronary artery of north fork heart without angina pectoris 09/10/2022 10/31/2022 Hypothyroidism [...] filter 02/28/2015 Atherosclerotic heart diseas e of north fork coronary artery with angina pectoris 11/2018 CKD [...] 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 IR thoracentesis order placed with [facility] selected as the preferred facility. They will reach out to patient directly to schedule once reviewed. * Telephone Encounter - Mary Huang RN - 06/05/2024 4:49 PM EST Attempted to call IR at [facility]. [facility] department hours end at 4:30 pm. Updated [facility]. Will work on first thing Saturday. * Telephone Encounter - Kathy Kohli CRNP - 06/05/2024 3:52 PM EST Discussed with RNSHAGUFTA. Patient is agreeable to thoracentesis of the left lung for a modest left pleural effusion. The closest hospital would be [place]. Can you help with coordinating and let me knowwhat orders I need to place? This can be done early next week. Thank you, LEYDA Gudino [facility], [facility] [address] [facility] [place] [address] * Telephone Encounter - Paulina Romeo RN - 06/05/2024 10:47 AM EST Call received from [employer]. Calling to make [facility] aware of + CXR results. Chart reviewed. Noted CXR received via fax and provider reviewed and ordered abx. FC call scheduled for tomorrow. documented in this encounter Plan of Treatment Upcoming Encounters Date Type Department Care Team (Late st Contact Info) Description 06/08/2024 10:00 AM EDT Scheduled Telephone [facility], [facility] [address] [place] [address] [facility], Nurse [facility] [address] [place] [address] 06/12/2024 3:00 PM EDT Home Visit [facility], [facility] [address] [place] [address] Olinda Briggs RN [address] [place] [address] 06/22/2024 11:00 AM EDT Home Visit [facility], [facility] [address] [place] [address] Leon Live PA-C [address] [place] [address] 06/22/2024 2:30 PM EDT Office Visit Urogynecology [facility] [address] [place] [address] Quincy Garcia MD [address] [place] [address] 06/25/2024 9:00 AM EDT Office Visit Family Medicine [address] [place] [phone] Rafa Bergman MD [address] [place] [address] [place] [address] 06/26/2024 11:30 AM EDT Office Visit Ophthalmology, [facility] [address] [place] [address] Pedro Tinsley DO [address] [place] [address] 07/06/2024 8:40 AM EDT Office Visit Neurology [facility] [address] [facility] [place] [address] Alfonso Manning [facility] [address] [facility] [address] 07/06/2024 11:00 AM EDT [facility] [address] [place] [address] Leon Live PA-C [address] [place] [address] 07/14/2024 2:30 PM EDT Cardiac Studies Cardiology [address] [place] [address] [facility] [address] [place] [address] 07/21/2024 10:00 AM EDT Imaging Radiology [facility] [address] [place] [phone] 08/18/2024 10:20 AM EDT Laboratory Laboratory [address] [place] [phone] [place] [address] 08/21/2024 3:00 PM EDT Office Visit Rheumatology [address] [place] [phone] José Miguel Cullen CRNP [address] [place] [address] [place] [address] 08/25/2024 3:30 PM EDT Office Visit Hematology/Oncology [facility] [address] [place] [phone] Arianna Szymanski MD [address] [place] [address] 09/11/2024 12:50 PM EDT Office Visit Dermatology, Jesu Wilson [address] [facility] [address] [place] [address] Dasha Nelson, PADelaneyC [address] [place] [address] 10/05/2024 1:30 PM EDT Office Visit Cardiology, [facility] [address] [place] [address] Charles Ortega, 132 [place] [address] Scheduled Orders Name Type Priority Associated Diagnoses Orde r Schedule IR CHEST THORACENTESIS Medical Imaging Routine Pleural effusion on left Expected: 06/08/2024, Expires: 07/09/2025 Health Maintenance Due Date Last Done Comments Adult Wellness Visit 02/06/2018 02/06/2017 Depression Screening 07/17/2022 07/17/2021 COVID-19 Vaccine ( season) 2023 02/05/2022, 08/02/2021, 02/28/2021, Additional history exists Influenza Vaccine (FLU shot) (#1) 2023 04/19/2023, 01/30/2022, 12/28/2020, Additional history exists Albumin/Creatinine Ratio 02/13/2024 023, 03/21/2022, 04/19/2021, Additional history exists HbA1c 04/26/2024 04/26/2023, 03/02, 04/19/2021, Additional history exists CKD PHOS USE SMARTSET 05015 06/26/202405/31, 04/19/2021, 11/27/2019, Additional history exists DXA Scan 07/18/2024 07/18/2022, 06/30, 12/22/2019, Additional history exists GFR 12/08/2024 06/07/2024, 01/30, 11/05/2023, Additional history exists CKD HGB USE SMARTSET 97672 02/16/202502/16, 02/17/2024, 06/27/2023, Additional history exists TSH [...] D LEVEL ONCE IN A LIFETIME-USE SMARTSET# 78487 Completed 06/27/2023, 11/06/2021, 12/28/2019, Additional history exists [...] this encounter Medical Devices Implanted Type Area Nurse Paralegal Device Identifier Shelf Expiration Date Model / Serial / Lot Lens Intraoc 21.5 - [id number] - [id number] Implanted:Qty: 1 on 05/12/2019 by Yury Brady MD at OR [facility] Right: Eye [employer]OM[employer] 12/30/2023 [id number] / [id number] / [id number] Lens Intraoc 22.5 - [id number] - [id number] Implanted:Qty: 1 on 04/05/2020 by Yury Brady MD at OR [facility] Left: Eye [employer]CH [employer] LOMB 09/28/2024 [id number] / [id number] / [id number] documented as of this encounter Visit Diagnoses Diagnosis Hypertensive kidney disease with stage 3a chronic kidney disease- Primary Atherosclerosis of north fork coronary artery of north fork heart without angina pectoris Dyslipidemia, goal LDL below 70 Other and unspecified hyperlipidemia History of pulmonary embolism Personal history of pulmonary embolism Tachy-chintan syndrome (HCC) Sinoatrial node dysfunction S/P placement of cardiac pacemaker Cardiac pacemaker in situ Arthralgia of right hip Gastro-esophageal reflux disease with esophagitis, without bleeding Sinus tachycardia Other specified cardiac dysrhythmias Coronary artery disease involving north fork coronary artery of north fork heart without angina pectoris Presence of cardiac pacemaker Cardiac pacemaker in situ Palpitations HTN, goal below 140/90 Unspecified essential hypertension Hypertensive kidney disease with stage 3a chronic kidney disease- Primary Dyslipidemia, goal LDL below 70 Other and unspecified hyperlipidemia Gastro-esophageal reflux disease with esophagitis, without bleeding Atherosclerosis of north fork coronary artery of north fork heart without angina pectoris Advanced care planning/counseling discussion- Primary Other specified counseling Hypertensive kidney disease with stage 3a chronic kidney disease (HCC) History of NM (myocardial infarction) Old myocardial infarction Tachy-chintan syndrome [...] Infection Onset Date Last Indicated Resolved Time Respiratory Rule-Out 06/05/2024 06/05/2024 025 11:09 PM EST RSV 06/05/2024 06/05/2024 documented as of this encounter Advance Directives Documents on File Type Date Recorded 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
--- OUTSIDE RECORDS SUMMARY | 2024-07-24 00:05 | External Medical Summary | Summary of Care ---
Author Name Unknown Organization [facility] Address [address] [place] [place] [place] [address] Phone [phone] Care Team Providers Care Case Repairer Name Role Phone Rafa Bergman MD Primary Care Provide r Reason for Visit * Reason Onset Date Comments [facility]: Maintenance 06/08/2024 Encounter Details Date Type Department Care Team (Latest Contact Info) Description 06/08/2024 10:00 AM EDT Scheduled Telephone [facility], [facility] [address] [facility] [place] [address] [facility], Nurse [facility] [address] [place] [address] Pleural effusion on left* Allergies Active Allergy [...] goal LDL below 70,Coronary artery disease involving hoonah coronary artery of hoonah heart without angina pectoris TAKE ONE TABLET BY MOUTH IN THE MORNING 90 Tablet 3 05/25/2024 7:44 AM EST 4 Active Propranolol HCl 10 MG Oral Tablet (Inderal)Indicat ions:Sinus tachycardia,Tach y-chintan syndrome (HCC),Coronary artery disease involving hoonah coronary artery of hoonah heart without angina pectoris,Presenc e of cardiac [...] for 10 days. until gone. 5 Tablet 025 Active methylPREDNISolo ne 4 MG Oral [...] 80 mg IV PUSH ONCE 06/08/2024 06/08/2024 Active documented as of this encounter (statuses [...] 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 History of SD (myocardial infarction) 11/27/2022 Assessment & Plan (04/16/2024 [...] S/P angioplasty with stent 11/27/2018 Atherosclerosis of hoonah co ronary artery of hoonah heart without angina pectoris 07/08/2018 Overview (11/21/2023): history of NSTEMI status post AMIE to LAD (culprit) and RCA, 04/28/2018 Assessment & Plan (01/24/2024 4:40 PM EDT): Cardiac rehab at [facility] 2x week Assessment & [...] 09/13/2022 11/08/2023 Atherosclerosis of coronary artery of hoonah heart without angina pectoris 09/10/2022 10/31/2022 Hypothyroidism [...] filter 02/28/2015 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 11/2018 CKD [...] 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 Not on file 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 Not on file Not on file Not [...] and correspondence: SUNNY to Rehana's Care Team email operations manager Pool please work on the following: contact the caller with advice and orders as above Kate Maya DO [facility] 06/08/2024 Scheduled appointments in the next 60 days: Future Appointments-next 60 days Date/Time Provider Specialty Dept Phone 06/12/2024 3:00 PM Olinda Briggs RN [facility] [phone] 06/22/2024 11:00 AM Leon Live PA-C [facility] [phone] 06/22/2024 2:30 PM (Arrive by 2:15 PM) Quincy Garcia MD Gynecology Urology [phone] 06/25/2024 9:00 AM (Arrive by 8:45 AM) Rafa Bergman MD Family Medicine [phone] 06/26/2024 11:30 AM Pedro Tinsley DO Ophthalmology [phone] 07/06/2024 8:40 AM (Arrive by 8:25 AM) Alfonso Manning MD Neurology [phone] 07/06/2024 11:00 AM Leon Live PA-C [facility] [phone] 07/14/2024 2:30 PM (Arrive by 2:15 PM) [facility] Cardiology [phone] 07/21/2024 10:00 AM [facility] Radiology [phone] 08/18/2024 10:20 AM [facility] Mo Laboratory [phone] 08/21/2024 3:00 PM (Arrive by 2:45 PM) José Miguel Cullen CRNP Rheumatology [phone] 08/25/2024 3:30 PM (Arrive by 3:15 PM) Arianna Szymanski MD Hematology Oncology [phone] 09/11/2024 12:50 PM (Arrive by 12:35 PM) Dasha Nelson PA-C Dermatology [phone] 10/05/2024 1:30 PM (Arrive by 1:15 PM) Charles Ortega DO Cardiology [phone] The above documentation was completed using the [...] [facility] Telephonic Nurse Follow-Up Call [facility] Subprogram: Focused Care Management (3-9 [...] provider for left thoracentesis by IR at [facility] if symptoms do not improve. Pt [...] would help. Sending to care team / [facility] for additional recommendations. Disposition: Routed to [facility] and/or [facility] Care Team for further advice and Follow up call scheduled for tomorrow with SERVICE SECRETARY Insurance Marketing Rep Future Visits Scheduled: Future Appointments-next 60 days Date/Time Provider Specialty Dept Phone 06/08/2024 10:00 AM Tariq, Nurse Malena Mary [facility] [phone] 06/12/2024 3:00 PM Olinda Briggs RN [facility] [phone] 06/22/2024 11:00 AM Leon Live PA-C [facility] [phone] 06/22/2024 2:30 PM (Arrive by 2:15 PM) Quincy Garcia MD Gynecology Urology [phone] 06/25/2024 9:00 AM (Arrive by 8:45 AM) Rafa Bergman MD Family Medicine [phone] 06/26/2024 11:30 AM Pedro Tinsley, Ophthalmology [phone] 07/06/2024 8:40 AM (Arrive by 8:25 AM) Alfonso Manning MD Neurology [phone] 07/06/2024 11:00 AM Leon Live PA-C [facility] [phone] 07/14/2024 2:30 PM (Arrive by 2:15 PM) [facility] Cardiology [phone] 07/21/2024 10:00 AM [facility] Radiology [phone] 08/18/2024 10:20 AM Cielo Marvin Mo Laboratory [phone] 08/21/2024 3:00 PM (Arrive by 2:45 PM) José Miguel Cullen CRNP Rheumatology [phone] 08/25/2024 3:30 PM (Arrive by 3:15 PM) Arianna Szymanski MD Hematology Oncology [phone] 09/11/2024 12:50 PM (Arrive by 12:35 PM) Dasha Nelson PA-C Dermatology [phone] 10/05/2024 1:30 PM (Arrive by 1:15 PM) Charles Ortega, DO Cardiology [phone] Mary Huang, RN documented in this encounter Plan of Treatment Upcoming Encounters Date Type Department Care Team (Late st Contact Info) Description 06/09/2024 10:15 AM EDT Scheduled Telephone [facility], [facility] [address] [place] [address] [facility], Nurse [address] [place] [address] 06/10/2024 11:00 AM EDT Scheduled Telephone [facility], [facility] [address] [place] [address] [facility], Nurse [facility] [address] [place] [address] 06/12/2024 3:00 PM EDT Home Visit [facility], [facility] [address] [place] [address] Olinda Briggs, CHRISTINA [address] [place] [address] 06/22/2024 11:00 AM EDT Home Visit [facility], [facility] [address] [place] [address] Leon Live PA-C [address] [place] [address] 06/22/2024 2:30 PM EDT Office Visit Urogynecology [facility] [address] [place] [address] Quincy Garcia MD [address] [place] [address] 06/25/2024 9:00 AM EDT Office Visit Family Medicine [address] [place] [phone] Rafa Bergman MD [address] [place] [address] [place] [address] 06/26/2024 11:30 AM EDT Office Visit Ophthalmology, [facility] [address] [place] [address] Pedro Tinsley DO [address] [place] [address] 07/06/2024 8:40 AM EDT Office Visit Neurology [facility] [address] [facility] [place] [address] Alfonso Manning MD [address] [place] [address] 07/06/2024 11:00 AM EDT [facility] Visit [facility] [address] [place] [address] Leon Live PA-C [address] [place] [address] 07/14/2024 2:30 PM EDT Cardiac Studies Cardiology [address] [place] [address] [facility] [address] [place] [address] 07/21/2024 10:00 AM EDT Imaging Radiology [facility] [address] [place] [phone] 08/18/2024 10:20 AM EDT Laboratory Laboratory [address] [place] [phone] [place] [address] 08/21/2024 3:00 PM EDT Office Visit Rheumatology [address] [place] [phone] José Miguel Cullen CRNP [address] [place] [address] [place] [address] 08/25/2024 3:30 PM EDT Office Visit Hematology/Oncology [facility] [address] [place] [phone] Arianna Szymanski MD [address] [place] [address] 09/11/2024 12:50 PM EDT Office Visit Dermatology, [facility] [address] [place] [address] Dasha Nelson, PADelaneyC [address] [place] [address] 10/05/2024 1:30 PM EDT Office Visit Cardiology, [facility] [address] [place] [address] Charles Ortega DO [address] [place] [address] Health Maintenance Due Date Last Done Comments Adult Wellness Visit 02/06/2018 02/06/2017 Depression Screening 07/17/2022 07/17/2021 COVID-19 Vaccine ( season) 2023 02/05/2022, 08/02/2021, 02/28/2021, Additional history exists Influenza Vaccine (FLU shot) (#1) 2023 04/19/2023, 01/30/2022, 12/28/2020, Additional history exists Albumin/Creatinine Ratio 02/13/2024 023, 03/21/2022, 04/19/2021, Additional history exists HbA1c 04/26/2024 04/26/2023, 03/02, 04/19/2021, Additional history exists CKD PHOS USE SMARTSET 18391 06/26/202405/31, 04/19/2021, 11/27/2019, Additional history exists DXA Scan 07/18/2024 07/18/2022, 06/30, 12/22/2019, Additional history exists GFR 12/08/2024 06/07/2024, 01/30, 11/05/2023, Additional history exists CKD HGB USE SMARTSET 36971 02/16/202502/16, 02/17/2024, 06/27/2023, Additional history exists TSH [...] D LEVEL ONCE IN A LIFETIME-USE SMARTSET# 99219 Completed 06/27/2023, 11/06/2021, 12/28/2019, Additional history exists [...] this encounter Medical Devices Implanted Type Area Skein Winding Operator Device Identifier Shelf Expiration Date Model / Serial / Lot Lens Intraoc 21.5 - [id number] - [id number] Implanted:Qty: 1 on 05/12/2019 by Yury Brady MD at OR [facility] Right: Eye [employer] 12/30/2023 [id number] / [id number] / [id number] Lens Intraoc 22.5 - [id number] - [id number] Implanted:Qty: 1 on 04/05/2020 by Yury Brady MD at OR [facility] Left: Eye [employer]OM[employer] 09/28/2024 [id number] / [id number] / [id number] documented as of this encounter Results * BNP, NT-PRO (06/07/2024 2:30 PM EDT) BNP, NT-Pro 169 <300 pg/mL 06/08/2024 11:01 AM EDT [facility] Blood Venous blood specimen / Unknown Venipuncture / Unknown 06/07/2024 2:30 PM EDT 06/07/2024 3:31 PM EDT Narrative [facility] - 06/08/2024 11:01 AM EDT Exclude Heart Failure: <300 pg/mL Diagnose Heart Failure: Age <50 yr: >450 pg/mL 50-75 yr: >900 pg/mL >75 yr: >1800 pg/mL GFR is 30-59 mL/min: >1200 pg/mL or Age-adjusted values GFR <30 mL/min: do not use, not reliable Prognostic threshold: 1000 pg/mL us Kate Maya DO LAB BLOOD ORDERABLES Final Re sult [facility] [address] [place] [address] documented in this encounter Visit Diagnoses Diagnosis Hypertensive kidney disease with stage 3a chronic kidney disease- Primary Atherosclerosis of hoonah coronary artery of hoonah heart without angina pectoris Dyslipidemia, goal LDL below 70 Other and unspecified hyperlipidemia History of pulmonary embolism Personal history of pulmonary embolism Tachy-chintan syndrome (HCC) Sinoatrial node dysfunction S/P placement of cardiac pacemaker Cardiac pacemaker in situ Arthralgia of right hip Gastro-esophageal reflux disease with esophagitis, without bleeding Sinus tachycardia Other specified cardiac dysrhythmias Coronary artery disease involving hoonah coronary artery of hoonah heart without angina pectoris Presence of cardiac pacemaker Cardiac pacemaker in situ Palpitations HTN, goal below 140/90 Unspecified essential hypertension Hypertensive kidney disease with stage 3a chronic kidney disease- Primary Dyslipidemia, goal LDL below 70 Other and unspecified hyperlipidemia Gastro-esophageal reflux disease with esophagitis, without bleeding Atherosclerosis of hoonah coronary artery of hoonah heart without angina pectoris Advanced care planning/counseling discussion- Primary Other specified counseling Hypertensive kidney disease with stage 3a chronic kidney disease (HCC) History of SD (myocardial infarction) Old myocardial infarction Tachy-chintan syndrome [...] Documents on File Type Date Recorded 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
--- OUTSIDE RECORDS SUMMARY | 2024-07-24 00:05 | External Medical Summary | Summary of Care ---
Author Name Unknown Organization [facility] Address [address] [place] [address] Phone [phone] Care Team Providers Care Chaser Apprentice Name Role Phone Rafa Bergman MD Primary Care Provide r Reason for Visit * Reason Onset Date Comments Abnormal Test Results 06/08/2024 Encounter Details Date Type Department Care Team (Late st Contact Info) Description 06/08/2024 Telephone Family Practice [address] [place] [address] [address] [place] [address] [facility] [address] [place] [address] Abnormal Test Results Allergies Active Allergy Reactions Criticality [...] goal LDL below 70,Coronary artery disease involving selawik coronary artery of selaw[place] heart without angina pectoris TAKE ONE TABLET BY MOUTH IN THE MORNING 90 Tablet 3 05/25/2024 7:44 AM EST 4 Active Propranolol HCl 10 MG Oral Tablet (Inderal)Indicat ions:Sinus tachycardia,Tach y-chintan syndrome (HCC),Coronary artery disease involving selawik coronary artery of selaw[place] heart without angina pectoris,Presenc e of cardiac [...] 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 History of [place] (myocardial infarction) 11/27/2022 Assessment & Plan (04/16/2024 [...] S/P angioplasty with stent 11/27/2018 Atherosclerosis of selawik co ronary artery of selawik heart without angina pectoris 07/08/2018 Overview (11/21/2023): history of NSTEMI status post AMIE to LAD (culprit) and RCA, 04/28/2018 Assessment & Plan (01/24/2024 4:40 PM EDT): Cardiac rehab at [facility] 2x week Assessment & Plan (11/21/2023 [...] 09/13/2022 11/08/2023 Atherosclerosis of coronary artery of selawik heart without angina pectoris 09/10/2022 10/31/2022 Hypothyroidism [...] filter 02/28/2015 Atherosclerotic heart diseas e of selaw[place] coronary artery with angina pectoris 11/2018 CKD [...] 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 GAH already on board and continue GAH plan of care documented in this encounter Plan of Treatment Upcoming Encounters Date Type Department Care Team (Late st Contact Info) Description 06/08/2024 1:30 PM EDT Home Visit [facility] at [facility] [address] [place] [address] Olinda Briggs, CHRISTINA [address] [place] [address] 06/12/2024 3:00 PM EDT Home Visit J[facility] at [facility] [address] [place] [address] Olinda Briggs, CHRISTINA [address] [place] [address] 06/22/2024 11:00 AM EDT [facility] [place] [address] [place] [address] Leon Live PA-C [address] [place] [address] 06/22/2024 2:30 PM EDT Office Visit Urogynecology [facility] [address] [place] [address] Quincy Garcia MD [address] [place] [address] 06/25/2024 9:00 AM EDT Office Visit Family Medicine [address] [place] [phone] Rafa Bergman MD [address] [place] [address] [place] [address] 06/26/2024 11:30 AM EDT Office Visit Ophthalmology, [facility] [address] [place] [address] Pedro Tinsley DO [address] [place] [address] 07/06/2024 8:40 AM EDT Office Visit Neurology [facility] [place] [address] Alfonso Manning MD [address] [facility] [place] [address] 07/06/2024 11:00 AM EDT [facility] Visit [facility] [address] [place] [address] Leon Live PA-C [address] [place] [address] 07/14/2024 2:30 PM EDT Cardiac Studies Cardiology [address] [place] [address] [place], Pacer [facility] [address] [place] [address] 07/21/2024 10:00 AM EDT Imaging Radiology [facility] [address] [place] [phone] 08/18/2024 10:20 AM EDT Laboratory Laboratory [address] [place] [phone] [facility] Lab [address] [place] [address] 08/21/2024 3:00 PM EDT Office Visit Rheumatology [address] [place] [phone] José Miguel Cullen CRNP [address] [place] [address] [place] [address] 08/25/2024 3:30 PM EDT Office Visit Hematology/Oncology [facility] [place] [address] [place] [phone] Arianna Szymanski MD [address] [place] [address] 09/11/2024 12:50 PM EDT Office Visit Dermatology, Jesu Wilson [address] [place] [address] Dasha Nelson PA-C [address] [place] [address] [phone] 10/05/2024 1:30 PM EDT Office Visit Cardiology, [facility] [address] [place] [address] Charles Ortega DO [address] [place] [address] Health Maintenance Due Date Last Done Comments Adult Wellness Visit 02/06/2018 02/06/2017 Depression Screening 07/17/2022 07/17/2021 COVID-19 Vaccine ( season) 2023 02/05/2022, 08/02/2021, 02/28/2021, Additional history exists Influenza Vaccine (FLU shot) (#1) 2023 04/19/2023, 01/30/2022, 12/28/2020, Additional history exists Albumin/Creatinine Ratio 02/13/2024 023, 03/21/2022, 04/19/2021, Additional history exists HbA1c 04/26/2024 04/26/2023, 03/02, 04/19/2021, Additional history exists CKD PHOS USE SMARTSET 75610 06/26/202405/31, 04/19/2021, 11/27/2019, Additional history exists DXA Scan 07/18/2024 07/18/2022, 06/30, 12/22/2019, Additional history exists GFR 12/08/2024 06/07/2024, 01/30, 11/05/2023, Additional history exists CKD HGB USE SMARTSET 94328 02/16/202502/16, 02/17/2024, 06/27/2023, Additional history exists TSH [...] D LEVEL ONCE IN A LIFETIME-USE SMARTSET# 45848 Completed 06/27/2023, 11/06/2021, 12/28/2019, Additional history exists [...] this encounter Medical Devices Implanted Type Area Clip Coater Device Identifier Shelf Expiration Date Model / Serial / Lot Lens Intraoc 21.5 - [id number] - [id number] Implanted:Qty: 1 on 05/12/2019 by Yury Brady MD at OR [facility] Right: Eye [employer] 12/30/2023 [id number] / [id number] / [id number] Lens Intraoc 22.5 - [id number] - [id number] Implanted:Qty: 1 on 04/05/2020 by Yury Brady MD at OR [facility] Left: Eye [employer]OM[employer] 09/28/2024 [id number] / [id number] / [id number] documented as of this encounter Additional Health Concerns Infection Onset Date Last Indicated Resolved Time RSV 06/05/2024 06/05/2024 documented as of this encounter Advance Directives Documents on File Type Date Recorded 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
--- OUTSIDE RECORDS SUMMARY | 2024-07-24 00:05 | External Medical Summary | Summary of Care ---
Author Name Unknown Organization [facility] Address [address] [facility] [place] [address] Phone [phone] Care Team Providers Care County Manager Name Role Phone Rafa Bergman MD Primary Care Provide r Reason for Visit * Reason Onset Date Comments [facility]: Maintenance 06/08/2024 Encounter Details Date Type Department Care Team (Latest Contact Info) Description 06/08/2024 10:00 AM EDT Scheduled Telephone [facility], [facility] [address] [facility] [place] [address] [facility], Nurse [facility] [address] [facility] [place] [address] Pleural effusion on left* Allergies Active Allergy [...] goal LDL below 70,Coronary artery disease involving [place] coronary artery of [place] heart without angina pectoris TAKE ONE TABLET BY MOUTH IN THE MORNING 90 Tablet 3 05/25/2024 7:44 AM EST 4 Active Propranolol HCl 10 MG Oral Tablet (Inderal)Indicat ions:Sinus tachycardia,Tach y-chintan syndrome (HCC),Coronary artery disease involving [place] coronary artery of [place] heart without angina pectoris,Presenc e of cardiac [...] S/P angioplasty with stent 11/27/2018 Atherosclerosis of [place] co ronary artery of [place] heart without angina pectoris 07/08/2018 Overview (11/21/2023): [...] 09/13/2022 11/08/2023 Atherosclerosis of coronary artery of [place] heart without angina pectoris 09/10/2022 10/31/2022 Hypothyroidism [...] filter 02/28/2015 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 11/2018 CKD [...] Job 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 file 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 Not on file Not on file Not [...] and correspondence: SUNNY to Re[facility] Care Team crop specialist Pool please work on the following: contact the caller with advice and orders as above Kate Maya DO [facility] 06/08/2024 Scheduled appointments in the next 60 days: Future Appointments-next 60 days Date/Time Provider Specialty Dept Phone 06/12/2024 3:00 PM Olinda Briggs RN [facility] [phone] 06/22/2024 11:00 AM Leon Live PA-C [facility] [phone] 06/22/2024 2:30 PM (Arrive by 2:15 PM) Quincy Garcia MD Gynecology Urology [phone] 06/25/2024 9:00 AM (Arrive by 8:45 AM) Rafa Bergman MD Family Medicine [phone] 06/26/2024 11:30 AM Pedro Tinsley DO Ophthalmology [phone] 07/06/2024 8:40 AM (Arrive by 8:25 AM) Alfonso Manning MD Neurology [phone] 07/06/2024 11:00 AM Leon Live PA-C [facility] [phone] 07/14/2024 2:30 PM (Arrive by 2:15 PM) [facility] Cardiology [phone] 07/21/2024 10:00 AM [facility] Radiology [phone] 08/18/2024 10:20 AM [facility] Mo Laboratory [phone] 08/21/2024 3:00 PM (Arrive by 2:45 PM) José Miguel Cullen CRNP Rheumatology [phone] 08/25/2024 3:30 PM (Arrive by 3:15 PM) Arianna Szymanski MD Hematology Oncology [phone] 09/11/2024 12:50 PM (Arrive by 12:35 PM) Dasha Nelson PA-C Dermatology [phone] 10/05/2024 1:30 PM (Arrive by 1:15 PM) Charles Ortega DO Cardiology [phone] The above documentation was completed using the [...] [facility] Telephonic Nurse Follow-Up Call [facility] Subprogram: Focused Care Management (3-9 months) Follow [...] provider for left thoracentesis by IR at [facility] if symptoms do not improve. Pt [...] would help. Sending to care team / [facility] for additional recommendations. Disposition: Routed to [facility] and/or [facility] Care Team for further advice and Follow up call scheduled for tomorrow with CLEAN UP HELPER BANQUET Slat Basket Maker Future Visits Scheduled: Future Appointments-next 60 days Date/Time Provider Specialty Dept Phone 06/08/2024 10:00 AM Tariq, Nurse Malena Mary [facility] [phone] 06/12/2024 3:00 PM Olinda Briggs RN [facility] [phone] 06/22/2024 11:00 AM Leon Live PA-C [facility] [phone] 06/22/2024 2:30 PM (Arrive by 2:15 PM) Quincy Garcia MD Gynecology Urology [phone] 06/25/2024 9:00 AM (Arrive by 8:45 AM) Rafa Bergman MD Family Medicine [phone] 06/26/2024 11:30 AM Pedro Tinsley, Ophthalmology [phone] 07/06/2024 8:40 AM (Arrive by 8:25 AM) Alfonso Manning MD Neurology [phone] 07/06/2024 11:00 AM Leon Live PA-C [facility] [phone] 07/14/2024 2:30 PM (Arrive by 2:15 PM) [facility] Cardiology [phone] 07/21/2024 10:00 AM [facility] Radiology [phone] 08/18/2024 10:20 AM Cielo Marvin Mo Laboratory [phone] 08/21/2024 3:00 PM (Arrive by 2:45 PM) José Miguel Cullen CRNP Rheumatology [phone] 08/25/2024 3:30 PM (Arrive by 3:15 PM) Arianna Szymanski MD Hematology Oncology [phone] 09/11/2024 12:50 PM (Arrive by 12:35 PM) Dasha Nelson PA-C Dermatology [phone] 10/05/2024 1:30 PM (Arrive by 1:15 PM) Charles Ortega, DO Cardiology [phone] Mary Huang, RN documented in this encounter Plan of Treatment Upcoming Encounters Date Type Department Care Team (Late st Contact Info) Description 06/09/2024 10:15 AM EDT Scheduled Telephone [facility], [facility] [address] [place] [address] [facility], Nurse [address] [place] [address] 06/10/2024 11:00 AM EDT Scheduled Telephone [facility], [facility] [address] [place] [address] [facility], Nurse [facility] [address] [facility] [place] [address] 06/12/2024 3:00 PM EDT Home Visit [facility], [facility] [address] [place] [address] Olinda Briggs, CHRISTINA [address] [place] [address] 06/22/2024 11:00 AM EDT Home Visit [facility], [facility] [address] [place] [address] Leon Live PA-C [address] [place] [address] 06/22/2024 2:30 PM EDT Office Visit Urogynecology [facility] [address] [place] [address] Quincy Garcia MD [address] [place] [address] 06/25/2024 9:00 AM EDT Office Visit Family Medicine [address] [place] [phone] Rafa Bergman MD [address] [place] [address] [place] [address] 06/26/2024 11:30 AM EDT Office Visit Ophthalmology, [facility] [address] [place] [address] Pedro Tinsley DO [address] [place] [address] 07/06/2024 8:40 AM EDT Office Visit Neurology [facility] [address] [facility] [place] [address] Alfonso Manning MD [address] [place] [address] 07/06/2024 11:00 AM EDT [facility] Visit [facility] [address] [place] [address] Leon Live PA-C [address] [place] [address] 07/14/2024 2:30 PM EDT Cardiac Studies Cardiology [address] [place] [address] [facility] [address] [place] [address] 07/21/2024 10:00 AM EDT Imaging Radiology [facility] [address] [place] [phone] 08/18/2024 10:20 AM EDT Laboratory Laboratory [address] [place] [phone] [place] [address] 08/21/2024 3:00 PM EDT Office Visit Rheumatology [address] [place] [phone] José Miguel Cullen CRNP [address] [place] [address] [place] [address] 08/25/2024 3:30 PM EDT Office Visit Hematology/Oncology [facility] [address] [place] [phone] Arianna Szymanski MD [address] [place] [address] 09/11/2024 12:50 PM EDT Office Visit Dermatology, [facility] Wilson [address] [place] [address] Dasha Nelson, PADelaneyC [address] [place] [address] 10/05/2024 1:30 PM EDT Office Visit Cardiology, [facility] [address] [place] [address] Charles Ortega DO [address] [place] [address] Health Maintenance Due Date Last Done Comments Adult Wellness Visit 02/06/2018 02/06/2017 Depression Screening 07/17/2022 07/17/2021 COVID-19 Vaccine ( season) 2023 02/05/2022, 08/02/2021, 02/28/2021, Additional history exists Influenza Vaccine (FLU shot) (#1) 2023 04/19/2023, 01/30/2022, 12/28/2020, Additional history exists Albumin/Creatinine Ratio 02/13/2024 023, 03/21/2022, 04/19/2021, Additional history exists HbA1c 04/26/2024 04/26/2023, 03/02, 04/19/2021, Additional history exists CKD PHOS USE SMARTSET 71453 06/26/202405/31, 04/19/2021, 11/27/2019, Additional history exists DXA Scan 07/18/2024 07/18/2022, 06/30, 12/22/2019, Additional history exists GFR 12/08/2024 06/07/2024, 01/30, 11/05/2023, Additional history exists CKD HGB USE SMARTSET 92556 02/16/202502/16, 02/17/2024, 06/27/2023, Additional history exists TSH [...] D LEVEL ONCE IN A LIFETIME-USE SMARTSET# 37074 Completed 06/27/2023, 11/06/2021, 12/28/2019, Additional history exists [...] this encounter Medical Devices Implanted Type Area Revenue Cycle Consultant Device Identifier Shelf Expiration Date Model / Serial / Lot Lens Intraoc 21.5 - [id number] - [id number] Implanted:Qty: 1 on 05/12/2019 by Yury Brady MD at [facility] Right: Eye [employer] 12/30/2023 [id number] / [id number] / [id number] Lens Intraoc 22.5 - [id number] - [id number] Implanted:Qty: 1 on 04/05/2020 by Yury Brady MD at OR [facility] Left: Eye [employer] 09/28/2024 [id number] / [id number] / [id number] documented as of this encounter Results * BNP, NT-PRO (06/07/2024 2:30 PM EDT) BNP, NT-Pro 169 <300 pg/mL 06/08/2024 11:01 AM EDT [facility] Blood Venous blood specimen / Unknown Venipuncture / Unknown 06/07/2024 2:30 PM EDT 06/07/2024 3:31 PM EDT Narrative [facility] - 06/08/2024 11:01 AM EDT Exclude Heart Failure: <300 pg/mL Diagnose Heart Failure: Age <50 yr: >450 pg/mL 50-75 yr: >900 pg/mL >75 yr: >1800 pg/mL GFR is 30-59 mL/min: >1200 pg/mL or Age-adjusted values GFR <30 mL/min: do not use, not reliable Prognostic threshold: 1000 pg/mL us Kate Maya DO LAB BLOOD ORDERABLES Final Re sult [facility] [address] [place] [address] documented in this encounter Visit Diagnoses Diagnosis Hypertensive kidney disease with stage 3a chronic kidney disease- Primary Atherosclerosis of [place] coronary artery of [place] heart without angina pectoris Dyslipidemia, goal LDL below 70 Other and unspecified hyperlipidemia History of pulmonary embolism Personal history of pulmonary embolism Tachy-chintan syndrome (HCC) Sinoatrial node dysfunction S/P placement of cardiac pacemaker Cardiac pacemaker in situ Arthralgia of right hip Gastro-esophageal reflux disease with esophagitis, without bleeding Sinus tachycardia Other specified cardiac dysrhythmias Coronary artery disease involving [place] coronary artery of [place] heart without angina pectoris Presence of cardiac pacemaker Cardiac pacemaker in situ Palpitations HTN, goal below 140/90 Unspecified essential hypertension Hypertensive kidney disease with stage 3a chronic kidney disease- Primary Dyslipidemia, goal LDL below 70 Other and unspecified hyperlipidemia Gastro-esophageal reflux disease with esophagitis, without bleeding Atherosclerosis of [place] coronary artery of [place] heart without angina pectoris Advanced care planning/counseling [...] Documents on File Type Date Recorded 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
--- OUTSIDE RECORDS SUMMARY | 2024-07-24 00:06 | External Medical Summary | Summary of Care ---
Author Name Unknown Organization [facility] Address [address] [place] [address] Phone [phone] Care Team Providers Care Application Developer Name Role Phone Rafa Bergman MD Primary Care Provide r Encounter Details Date Type Department Care Team (Late st Contact Info) Description 06/07/2024 10:45 AM EDT [facility] [address] [facility] [place] [id number] [facility], Nurse [facility] [address] [facility] [place] [address] Pleural effusion on left Allergies Active Allergy Reactions Criticality Noted Date Comments Colchicine Diarrhea 06/16/2018 Daptomycin 01/05/2015 Shortness of breath Imipenem Edema airway High 01/05/2015 Metoprolol Low 01/23/2021 Other reaction(s): fatigue Zoledronic Acid 04/24/2012 Myalgias, fever, chills, vomiting x 2 days Sulfa Antibiotics 12/22/2002 Bactrim--itchy all over, eyes swollen documented as of this encounter (statuses as of 06/07/2024) Medications ASPIRIN 81 MG PO TABS Take [...] goal LDL below 70,Coronary artery disease involving [place] coronary artery of [place] heart without angina pectoris TAKE ONE TABLET BY MOUTH IN THE MORNING 90 Tablet 3 05/25/2024 7:44 AM EST 4 Active Propranolol HCl 10 MG Oral Tablet (Inderal)Indicat ions:Sinus tachycardia,Tach y-chintan syndrome (HCC),Coronary artery disease involving [place] coronary artery of [place] heart without angina pectoris,Presenc e of cardiac [...] as of this encounter (statuses as of 06/07/2024) Active Problems Problem Noted Date Diagnosed Date [...] eye 01/03/2023 History of [place] (myocardial infarction) 11/27/2022 Assessment & Plan (04/16/2024 [...] S/P angioplasty with stent 11/27/2018 Atherosclerosis of [place] co ronary artery of [place] heart without angina pectoris 07/08/2018 Overview (11/21/2023): history of NSTEMI status post AMIE to LAD (culprit) and RCA, 04/28/2018 Assessment & Plan (01/24/2024 4:40 PM EDT): Cardiac rehab at [facility] 2x week Assessment & Plan (11/21/2023 [...] as of this encounter (statuses as of 06/07/2024) Resolved Problems Problem Noted Date Diagnosed Date Resolved Date Purulent endophthalmitis of right eye 01/03/2023 11/08/2023 Other pulmonary embolism wit h acute cor pulmonale 10/01/2022 04/26/2023 Overview (04/26/2023): history Medical home patient encounter 09/13/2022 11/08/2023 Atherosclerosis of coronary artery of [place] heart without angina pectoris 09/10/2022 10/31/2022 Hypothyroidism [...] filter 02/28/2015 Atherosclerotic heart diseas e of [place] coronary artery with angina pectoris 11/2018 CKD (chronic kidney disease) stage 2, GFR 60-89 ml/min 03/12/2019 documented as of this encounter (statuses as of 06/07/2024) Immunizations Name Administration Dates Next Due COVID-19 [...] 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 file 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 e [employer] Not on file Not on file Not on file documented as of this encounter Last Filed Vital Signs Vital Sign Reading Time Taken Comments Blood Pressure 118/62 06/07/2024 12:54 PM EDT Pulse 70 06/07/2024 12:54 PM EDT Temperature 36.8 °C (98.2 °F) 06/07/2024 12:54 PM E DT Respiratory Rate - - Oxygen Saturation 95% 06/07/2024 12:54 PM EDT Inhaled Oxygen Concentration - - Weight - - Height - - Body Mass Index - - documented in this encounter Progress Notes * Kasey Sanabria, CHRISTINA - 06/07/2024 4:21 PM EDT Received TT from Kidney functions are at baseline. PC to pt, notified of lab results. Pt states mobile x-ray came and completed CXR. Pt will await f/u call tomorrow. Denies further questions or concerns today. * Kasey Sanabria RN - 06/07/2024 12:54 PM EDT Current Concerns: Acute visit--f/u IV lasix 06/06;06/07. Moderate L/pleural effusion 06/05 cxr, +RSV Starting to feel much better, noting more improvement in the past 24 hours. Not feeling as winded with activities. Notes increased urinary output yesterday after IV Lasix Coughing out more sputum--cough is looser--sputum today is thick pale yellow. Has 2 more days of steroids and 2 more doses of Levaquin BP 118/62 | Pulse 70 | Temp 36.8 °C (98.2 °F) (Infrared ) | SpO2 95% LLL diminished compared to RLL, more air movement in LLL today compared with yesterday. / Remains afebrile, last dose of Tylenol around 0700 today Appetite remains "good" Denies nausea, vomiting, diarrhea Mobile cxr ordered 06/06/24--did not make contact with pt or show up---Yamilka Wells in contact with company and hoping to have cxr completed today. Reviewed with Orders for IV lasix 80 mg, BMP-stat 1:15 PIV started LAC x 1 attempt Collected labs Administered 80 mg IV lasix Pt tolerated well. IV site removed, IV catheter intact, no bleeding Applied gauze and coban wrap. Pt placed on nurse phone f/u tomorrow-will review with primary nurse Advised pt to call cheryl if she has any worsening changes, new concerning symptoms prior to [facility] f/u call. Pt verbalized understanding and agreed with plan. Physical Exam: Physical Exam Constitutional: General: She is not in acute distress. HENT: Nose: Rhinorrhea present. Mouth/Throat: Mouth: Mucous membranes are moist. Cardiovascular: Rate and Rhythm: Normal rate and regular rhythm. Pulses: Normal pulses. Heart sounds: Normal heart sounds. Pulmonary: Effort: Pulmonary effort is normal. No respiratory distress. Breath sounds: Decreased air movement (LLL) present. Examination of the left- lower field reveals decreased breath sounds. Decreased breath sounds present. No wheezing, rhonchi or rales. Abdominal: General: Bowel sounds are normal. There is no distension. Tenderness: There is no abdominal tenderness. Musculoskeletal: Right lower leg: Edema present. Left lower leg: Edema present. Skin: General: Skin is warm and dry. Neurological: Mental Status: She is alert and oriented to person, place, and time. Review of Systems: Review of Systems HENT: Negative for congestion, rhinorrhea and sore throat. Respiratory: Positive for cough and shortness of breath. Negative for chest tightness and wheezing. Cardiovascular: Positive for leg swelling. Negative for chest pain and palpitations. Gastrointestinal: Negative. Genitourinary: Negative. Musculoskeletal: Positive for gait problem. Skin: Negative. Neurological: Negative for dizziness, weakness, light-headedness and headaches. Hematological: Bruises/bleeds easily. Care Plan Goal Progress: Orders Placed: No orders of the defined types were placed in this encounter. Medications Given: Administrations This Visit Furosemide (Lasix) inj 80 mg Admin Date 06/07/2024 Action Given Dose 80 mg Route IV Push Documented By Kasey Sanabria RN Care Gaps: Care Gaps Care gaps closed this contact: Lab/radiology testing coordinated;Home based procedures;Education;Medications;Plan of Care (POC) (06/07/24 154) Type of education: Clinical/disease (06/07/241545) Procedure performed: IV medication (06/07/241545) Type of medication care gap: Medication adherence (06/07/241545) Type of plan of care (POC) care gap: Education and review of exacerbation plan (06/07/24 154) documented in this encounter Plan of Treatment Upcoming Encounters Date Type Department Care Team (Late st Contact Info) Description 06/08/2024 10:00 AM EDT Scheduled Telephone [facility] [address] [address] Coordinator, [facility] [address] [place] [address] 06/12/2024 3:00 PM EDT Home Visit [facility] [address] [place] [address] Olinda Briggs RN [address] [place] [address] 06/22/2024 11:00 AM EDT Home Visit [facility] [address] [place] [address] Leon Live PA-C [address] [place] [address] 06/22/2024 2:30 PM EDT Office Visit Urogynecology [facility] [address] [place] [address] Quincy Garcia MD [address] [place] [address] 06/25/2024 9:00 AM EDT Office Visit Family Medicine [address] [place] [phone] Rafa Bergman MD [address] [place] [address] [place] [address] 06/26/2024 11:30 AM EDT Office Visit Ophthalmology, [facility] [address] [place] [address] Pedro Tinsley DO [address] [place] [address] 07/06/2024 8:40 AM EDT Office Visit Neurology [facility] [address] [facility] [place] [address] Alfonso Manning MD [address] [facility] [place] [address] 07/06/2024 11:00 AM EDT Home Visit [facility] [address] [place] [address] Leon Live PA-C [address] [place] [address] 07/14/2024 2:30 PM EDT Cardiac Studies Cardiology [address] [place] [address] Cadence Horne [facility] [address] [place] [address] 07/21/2024 10:00 AM EDT Imaging Radiology [facility] [address] [place] [id number] 08/18/2024 10:20 AM EDT Laboratory Laboratory [address] [place] [phone] [facility] [address] [place] [address] 08/21/2024 3:00 PM EDT Office Visit Rheumatology [address] [place] [phone] José Miguel Cullen, NITROGLYCERIN NEUTRALIZER [facility] [place] [address] 08/25/2024 3:30 PM EDT Office Visit Hematology/Oncology [facility] [place] [address] [place] [phone] Arianna Szymanski MD [address] [place] [address] 09/11/2024 12:50 PM EDT Office Visit Dermatology, Jesu Wilson [address] [place] [address] Dasha Nelson PA-C [address] [place] [address] 10/05/2024 1:30 PM EDT Office Visit Cardiology, [facility] [address] [place] [address] Charles Ortega DO [address] [place] [address] Health Maintenance Due Date Last Done Comments Adult Wellness Visit 02/06/2018 02/06/2017 Depression Screening 07/17/2022 07/17/2021 COVID-19 Vaccine ( season) 2023 02/05/2022, 08/02/2021, 02/28/2021, Additional history exists Influenza Vaccine (FLU shot) (#1) 2023 04/19/2023, 01/30/2022, 12/28/2020, Additional history exists Albumin/Creatinine Ratio 02/13/2024 023, 03/21/2022, 04/19/2021, Additional history exists HbA1c 04/26/2024 04/26/2023, 03/02, 04/19/2021, Additional history exists CKD PHOS USE SMARTSET 99337 06/26/202405/31, 04/19/2021, 11/27/2019, Additional history exists DXA Scan 07/18/2024 07/18/2022, 06/30, 12/22/2019, Additional history exists GFR 12/08/2024 06/07/2024, 01/30, 11/05/2023, Additional history exists CKD HGB USE SMARTSET 73650 02/16/202502/16, 02/17/2024, 06/27/2023, Additional history exists TSH [...] D LEVEL ONCE IN A LIFETIME-USE SMARTSET# 20137 Completed 06/27/2023, 11/06/2021, 12/28/2019, Additional history exists [...] this encounter Medical Devices Implanted Type Area Needle Straightener Device Identifier Shelf Expiration Date Model / Serial / Lot Lens Intraoc 21.5 - [id number] - [id number] Implanted:Qty: 1 on 05/12/2019 by Yury Brady MD at OR [facility] Right: Eye [employer] 12/30/2023 [id number] / [id number] / [id number] Lens Intraoc 22.5 - [id number] - [id number] Implanted:Qty: 1 on 04/05/2020 by Yury Brady MD at OR [facility] Left: Eye [employer] 09/28/2024 [id number] / [id number] / [id number] documented as of this encounter Procedures Procedure Name Priority Date/Time Associated Diagnosis Comments BASIC METABOLIC PANEL STAT 06/07/2024 2:30 PM EDT Pleural effusion on left documented in this encounter Results * (ABNORMAL) BASIC METABOLIC PANEL (06/07/2024 2:30 PM EDT) BUN 36(H) 6 - 20 mg/dL 06/07/2024 3:51 PM EDT [facility] CREATININE 1.0 0.5 - 1.0 mg/dL 06/07/2024 3:51 PM EDT [facility] EGFR 55(L) >=60 mL/min 06/07/2024 3:51 PM EDT [facility] Comment:eGFR is calculated b ased on the CKD-EPI 2020 equation. SODIUM 145 135 - 146 mmol/L 06/07/2024 3:51 PM EDT [facility] POTASSIUM 4.3 3.5 - 5.1 mmol/L 06/07/2024 3:51 PM EDT [facility] CHLORIDE 103 98 - 107 mmol/L 06/07/2024 3:51 PM EDT [facility] CO2 30 22 - 32 mmol/L 06/07/2024 3:51 PM EDT [facility] ANION GAP 12 7 - 15 mmol/L 06/07/2024 3:51 PM EDT [facility] GLUCOSE 142(H) 70 - 120 mg/dL 06/07/2024 3:51 PM EDT [facility] CALCIUM 10.1 8.4 - 10.2 mg/dL 06/07/2024 3:51 PM EDT [facility] Blood Venous blood specimen / Unknown Venipuncture / Unknown 06/07/2024 2:30 PM EDT 06/07/2024 3:31 PM EDT us Garrett Perez MD LAB BLOOD ORDERABLES Final Res ult LABORATORY [address] [address] documented in this encounter Visit Diagnoses Diagnosis Hypertensive kidney disease with stage 3a chronic kidney disease- Primary Atherosclerosis of [place] coronary artery of [place] heart without angina pectoris Dyslipidemia, goal LDL below 70 Other and unspecified hyperlipidemia History of pulmonary embolism Personal history of pulmonary embolism Tachy-chintan syndrome (HCC) Sinoatrial node dysfunction S/P placement of cardiac pacemaker Cardiac pacemaker in situ Arthralgia of right hip Gastro-esophageal reflux disease with esophagitis, without bleeding Sinus tachycardia Other specified cardiac dysrhythmias Coronary artery disease involving [place] coronary artery of [place] heart without angina pectoris Presence of cardiac pacemaker Cardiac pacemaker in situ Palpitations HTN, goal below 140/90 Unspecified essential hypertension Hypertensive kidney disease with stage 3a chronic kidney disease- Primary Dyslipidemia, goal LDL below 70 Other and unspecified hyperlipidemia Gastro-esophageal reflux disease with esophagitis, without bleeding Atherosclerosis of [place] coronary artery of [place] heart without angina pectoris Advanced care planning/counseling discussion- Primary Other specified counseling Hypertensive kidney disease with stage 3a chronic kidney disease (HCC) History of VA (myocardial infarction) Old myocardial infarction Tachy-chintan syndrome [...] mg 80 mg, IV Push, ONCE, On 06/07/24 at 1630, For 1 doseIndications:Pleural effusion on left Given 06/07/2024 1:15 PM EDT 80 mg Antecubital Left documented in this encounter Additional Health Concerns Infection Onset Date Last Indicated Resolved Time RSV 06/05/2024 06/05/2024 documented as of this encounter Advance Directives Documents on File Type Date Recorded 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
--- OUTSIDE RECORDS SUMMARY | 2024-07-24 00:06 | External Medical Summary | Summary of Care ---
Author Name Unknown Organization [facility] Address [address] [place] [address] Phone [phone] Care Team Providers Care Art History Instructor Name Role Phone Rafa Bergman MD Primary Care Provide r Reason for Referral * Precert (Within 10 days (routine)) - Authorized Specialty Diagnoses / Procedures Referred By Ethan nicole Referred To Contact Radiology Diagnoses Pleural effusion on left Procedures IR CHEST THORACENTESIS Kathy Kohli CRNP [address] [place] [address] Phone: tel: fax: Referral ID Status Reason Start Date Expiration Date V isits Requested Visits Authorized [id number] Authorized 06/08/2024 999 999 Reason for Visit * Reason Onset Date Comments [facility]: Maintenance 06/05/2024 Encounter Details Date Type Department Care Team (Late st Contact Info) Description 06/05/2024 Telephone [facility], [facility] [address] [place] [address] Paulina Romeo, RN [address] [facility] [place] [address] [facility]: Maintenance Allergies Active Allergy [...] goal LDL below 70,Coronary artery disease involving green[place] coronary artery of [place] heart without angina pectoris TAKE ONE TABLET BY MOUTH IN THE MORNING 90 Tablet 3 05/25/2024 7:44 AM EST 4 Active Propranolol HCl 10 MG Oral Tablet (Inderal)Indicat ions:Sinus tachycardia,Tach y-chintan syndrome (HCC),Coronary artery disease involving green[place] coronary artery of green[place] heart without angina pectoris,Presenc e of cardiac [...] 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 History of [place] (myocardial infarction) 11/27/2022 Assessment & Plan (04/16/2024 [...] S/P angioplasty with stent 11/27/2018 Atherosclerosis of green[place] co ronary artery of greenville heart without angina pectoris 07/08/2018 Overview (11/21/2023): [...] 09/13/2022 11/08/2023 Atherosclerosis of coronary artery of [place] heart without angina pectoris 09/10/2022 10/31/2022 Hypothyroidism [...] filter 02/28/2015 Atherosclerotic heart diseas e of [place] coronary artery with angina pectoris 11/2018 CKD [...] 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 IR thoracentesis order placed with [facility] selected as the preferred facility. They will reach out to patient directly to schedule once reviewed. * Telephone Encounter - Mary Huang RN - 06/05/2024 4:49 PM EST Attempted to call IR at [facility]. [facility] department hours end at 4:30 pm. Updated [facility] Will work on first thing Saturday. * Telephone Encounter - Kathy Kohli CRNP - 06/05/2024 3:52 PM EST Discussed with [facility]. Patient is agreeable to thoracentesis of the left lung for a modest left pleural effusion. The closest hospital would be [facility]. Can you help with coordinating and let me knowwhat orders I need to place? This can be done early next week. Thank you, LEYDA Gudino [facility], [facility] [address] [facility] [place] [id number] * Telephone Encounter - Paulina Romeo RN - 06/05/2024 10:47 AM EST Call received from [employer]. Calling to make [facility] aware of + CXR results. Chart reviewed. Noted CXR received via fax and provider reviewed and ordered abx. FC call scheduled for tomorrow. documented in this encounter Plan of Treatment Upcoming Encounters Date Type Department Care Team (Late st Contact Info) Description 06/08/2024 10:00 AM EDT Scheduled Telephone [facility], [facility] [address] [place] [address] [facility], Nurse [facility] [address] [place] [address] [address] 06/12/2024 3:00 PM EDT Home Visit [facility], [facility] [address] [place] [address] [address] Olinda Briggs RN [address] [place] [address] 06/22/2024 11:00 AM EDT Home Visit [facility], [facility] [address] [place] [address] [address] Leon Live PA-C [address] [place] [address] 06/22/2024 2:30 PM EDT Office Visit Urogynecology [facility] [address] [place] [address] Quincy Garcia MD [address] [place] [address] 06/25/2024 9:00 AM EDT Office Visit Family Medicine [address] [place] [phone] Rafa Bergman MD [address] [place] [address] [place] [address] 06/26/2024 11:30 AM EDT Office Visit Ophthalmology, [facility] [address] [place] [address] Pedro Tinsley DO [address] [place] [address] 07/06/2024 8:40 AM EDT Office Visit Neurology [facility] [address] [facility] [place] [address] Alfonso Manning [facility] [address] 07/06/2024 11:00 AM EDT [facility] [address] [place] [address] Leon Live PA-C [address] [place] [address] 07/14/2024 2:30 PM EDT Cardiac Studies Cardiology [address] [place] [address] [facility] [address] [place] [address] 07/21/2024 10:00 AM EDT Imaging Radiology [facility] [address] [place] [phone] 08/18/2024 10:20 AM EDT Laboratory Laboratory [address] [place] [phone] [place] [address] 08/21/2024 3:00 PM EDT Office Visit Rheumatology [address] [place] [phone] José Miguel Cullen CRNP [address] [place] [address] [place] [address] 08/25/2024 3:30 PM EDT Office Visit Hematology/Oncology [facility] [address] [place] [address] Arianna Szymanski MD [address] [place] [address] 09/11/2024 12:50 PM EDT Office Visit Dermatology, Jesu Wilson [address] [facility] [address] [place] [address] Dasha Nelson, PADelaneyC [address] [place] [address] 10/05/2024 1:30 PM EDT Office Visit Cardiology, [facility] [address] [place] [address] Charles Ortega, [address] [place] [address] Scheduled Orders Name Type Priority Associated Diagnoses [...] Additional history exists CKD PHOS USE SMARTSET 23824 06/26/202405/31, 04/19/2021, 11/27/2019, Additional history exists DXA Scan 07/18/2024 07/18/2022, 06/30, 12/22/2019, Additional history exists GFR 12/08/2024 06/07/2024, 01/30, 11/05/2023, Additional history exists CKD HGB USE SMARTSET 18616 02/16/202502/16, 02/17/2024, 06/27/2023, Additional history exists TSH [...] D LEVEL ONCE IN A LIFETIME-USE SMARTSET# 48249 Completed 06/27/2023, 11/06/2021, 12/28/2019, Additional history exists [...] this encounter Medical Devices Implanted Type Area Fisher Pot Device Identifier Shelf Expiration Date Model / Serial / Lot Lens Intraoc 21.5 - [id number] - [id number] Implanted:Qty: 1 on 05/12/2019 by Yury Brady MD at OR [facility] Right: Eye [employer] 12/30/2023 [id number] / [id number] / [id number] Lens Intraoc 22.5 - [id number] - [id number] Implanted:Qty: 1 on 04/05/2020 by Yury Brady MD at OR [facility] Left: Eye [employer] 09/28/2024 [id number] / [id number] / [id number] documented as of this encounter Visit Diagnoses Diagnosis Hypertensive kidney disease with stage 3a chronic kidney disease- Primary Atherosclerosis of green[place] coronary artery of green[place] heart without angina pectoris Dyslipidemia, goal LDL below 70 Other and unspecified hyperlipidemia History of pulmonary embolism Personal history of pulmonary embolism Tachy-chintan syndrome (HCC) Sinoatrial node dysfunction S/P placement of cardiac pacemaker Cardiac pacemaker in situ Arthralgia of right hip Gastro-esophageal reflux disease with esophagitis, without bleeding Sinus tachycardia Other specified cardiac dysrhythmias Coronary artery disease involving green[place] coronary artery of green[place] heart without angina pectoris Presence of cardiac pacemaker Cardiac pacemaker in situ Palpitations HTN, goal below 140/90 Unspecified essential hypertension Hypertensive kidney disease with stage 3a chronic kidney disease- Primary Dyslipidemia, goal LDL below 70 Other and unspecified hyperlipidemia Gastro-esophageal reflux disease with esophagitis, without bleeding Atherosclerosis of green[place] coronary artery of green[place] heart without angina pectoris Advanced care planning/counseling discussion- Primary Other specified counseling Hypertensive kidney disease with stage 3a chronic kidney disease (HCC) History of [place] (myocardial infarction) Old myocardial infarction Tachy-chintan syndrome [...] Documents on File Type Date Recorded 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
--- OUTSIDE RECORDS SUMMARY | 2024-07-24 00:07 | External Medical Summary | Summary of Care ---
Author Name Unknown Organization [facility] Address [address] [place] [place] [address] Phone [phone] Care Team Providers Care Print Production Manager Name Role Phone Rafa Bergman MD Primary Care Provide r Encounter Details Date Type Department Care Team (Late st Contact Info) Description 06/07/2024 10:45 AM EDT [facility] [address] [facility] [place] [address] [facility], Nurse [facility] 132 [facility] [place] [address] Pleural effusion on left Allergies Active Allergy [...] goal LDL below 70,Coronary artery disease involving [place] coronary artery of [place] heart without angina pectoris TAKE ONE TABLET BY MOUTH IN THE MORNING 90 Tablet 3 05/25/2024 7:44 AM EST 4 Active Propranolol HCl 10 MG Oral Tablet (Inderal)Indicat ions:Sinus tachycardia,Tach y-chintan syndrome (HCC),Coronary artery disease involving [place] coronary artery of [place] heart without angina pectoris,Presenc e [...] S/P angioplasty with stent 11/27/2018 Atherosclerosis of [place] co ronary artery of [place] heart without angina pectoris 07/08/2018 Overview (11/21/2023): history of NSTEMI status post AMIE to LAD (culprit) and RCA, 04/28/2018 Assessment & Plan (01/24/2024 4:40 PM EDT): Cardiac rehab at [facility] 2x week Assessment & [...] 09/13/2022 11/08/2023 Atherosclerosis of coronary artery of [place] heart without angina pectoris 09/10/2022 [...] filter 02/28/2015 Atherosclerotic heart diseas e of [place] coronary artery with angina pectoris [...] 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 Pt verbalized understanding and agreed [...] testing coordinated;Home based procedures;Education;Medications;Plan of Care (POC) (06/07/241545) Type of education: Clinical/disease (06/07/241545) Procedure performed: IV medication (06/07/241545) Type of medication care gap: Medication adherence (06/07/241545) Type of plan of care (POC) care gap: Education and review of exacerbation plan (06/07/241545) documented in this encounter Plan of Treatment Upcoming Encounters Date Type Department Care Team (Late st Contact Info) Description 06/08/2024 10:00 AM EDT Scheduled Telephone [facility], [facility] [address] [place] [address] [address] Coordinator, [facility] [address] [place] [address] 06/12/2024 3:00 PM EDT Home Visit [facility], [facility] [address] [place] [address] [address] Olinda Briggs RN [address] [place] [address] 06/22/2024 11:00 AM EDT Home Visit [facility], [facility] [address] [place] [address] [address] Leon Live PA-C [address] [place] [address] 06/22/2024 2:30 PM EDT Office Visit Urogynecology [facility] [address] [place] [address] Quincy Garcia MD [address] [place] [address] 06/25/2024 9:00 AM EDT Office Visit Family Medicine [address] [place] [phone] Rafa Bergman MD [address] [place] [address] [place] [address] 06/26/2024 11:30 AM EDT Office Visit Ophthalmology, [facility] [address] [place] [address] Pedro Tinsley DO [address] [place] [address] 07/06/2024 8:40 AM EDT Office Visit Neurology [facility] [address] [place] [address] Alfonso Manning MD 200 [facility] [place] [address] 07/06/2024 11:00 AM EDT Home Visit [facility] at [facility] [address] [place] [address] Leon Live PA-C [address] [place] [address] 07/14/2024 2:30 PM EDT Cardiac Studies Cardiology [address] [place] [address] [facility] [address] [place] [address] 07/21/2024 10:00 AM EDT Imaging Radiology [facility] [address] [place] [phone] 08/18/2024 10:20 AM EDT Laboratory Laboratory [address] [place] [phone] [facility] [address] [place] [address] 08/21/2024 3:00 PM EDT Office Visit Rheumatology [address] [place] [phone] José Miguel Cullen CRNP [address] [place] [address] [place] [address] 08/25/2024 3:30 PM EDT Office Visit Hematology/Oncology [facility] [address] [place] [address] Arianna Szymanski MD [address] [place] [address] 09/11/2024 12:50 PM EDT Office Visit Dermatology, Jesu Wilson [address] [place] [address] Dasha Nelson PADelaneyC [address] [place] [address] 10/05/2024 1:30 PM EDT Office Visit Cardiology, [facility] [address] [place] [address] Charles Ortega DO [address] [place] [address] Health Maintenance Due Date Last Done Comments Adult Wellness Visit 02/06/2018 02/06/2017 Depression Screening 07/17/2022 07/17/2021 COVID-19 Vaccine ( season) 2023 02/05/2022, 08/02/2021, 02/28/2021, Additional history exists Influenza Vaccine (FLU shot) (#1) 2023 04/19/2023, 01/30/2022, 12/28/2020, Additional history exists Albumin/Creatinine Ratio 02/13/2024 023, 03/21/2022, 04/19/2021, Additional history exists HbA1c 04/26/2024 04/26/2023, 03/02, 04/19/2021, Additional history exists CKD PHOS USE SMARTSET 66816 06/26/202405/31, 04/19/2021, 11/27/2019, Additional history exists DXA Scan 07/18/2024 07/18/2022, 06/30, 12/22/2019, Additional history exists GFR 12/08/2024 06/07/2024, 01/30, 11/05/2023, Additional history exists CKD HGB USE SMARTSET 82927 02/16/202502/16, 02/17/2024, 06/27/2023, Additional history exists TSH [...] D LEVEL ONCE IN A LIFETIME-USE SMARTSET# 64932 Completed 06/27/2023, 11/06/2021, 12/28/2019, Additional history exists [...] this encounter Medical Devices Implanted Type Area Maintenance Engineer Device Identifier Shelf Expiration Date Model / Serial / Lot Lens Intraoc 21.5 - [id number] - [id number] Implanted:Qty: 1 on 05/12/2019 by Yury Brady MD at OR [facility] Right: Eye [employer] 12/30/2023 [id number] / [id number] / [id number] Lens Intraoc 22.5 - [id number] - [id number] Implanted:Qty: 1 on 04/05/2020 by Yury Brady MD at OR [facility] Left: Eye [employer] 09/28/2024 [id number] / [id number] / [id number] documented as of this encounter Procedures Procedure [...] LAB BLOOD ORDERABLES Final Res ult [facility] [address] [place] [address] documented in this encounter Visit Diagnoses Diagnosis Hypertensive kidney disease with stage 3a chronic kidney disease- Primary Atherosclerosis of [place] coronary artery of [place] heart without angina pectoris Dyslipidemia, goal LDL below 70 Other and unspecified hyperlipidemia History of pulmonary embolism Personal history of pulmonary embolism Tachy-chintan syndrome (HCC) Sinoatrial node dysfunction S/P placement of cardiac pacemaker Cardiac pacemaker in situ Arthralgia of right hip Gastro-esophageal reflux disease with esophagitis, without bleeding Sinus tachycardia Other specified cardiac dysrhythmias Coronary artery disease involving [place] coronary artery of [place] heart without angina pectoris Presence of cardiac pacemaker Cardiac pacemaker in situ Palpitations HTN, goal below 140/90 Unspecified essential hypertension Hypertensive kidney disease with stage 3a chronic kidney disease- Primary Dyslipidemia, goal LDL below 70 Other and unspecified hyperlipidemia Gastro-esophageal reflux disease with esophagitis, without bleeding Atherosclerosis of [place] coronary artery of [place] heart without angina pectoris Advanced care planning/counseling discussion- Primary Other specified counseling Hypertensive kidney disease with stage 3a chronic kidney disease (HCC) History of [place] (myocardial infarction) Old myocardial infarction Tachy-chintan syndrome [...] Documents on File Type Date Recorded Patient Seasoning Sprayer Expl anation Advance Directives and Living Will [...] Agen t (per Health Care Power of Pin Drafter Operator document) Guille Urban Adult Child Health Care Agen t (per Health Care Power of Pin Drafter Operator document) [email or web address] Care Teams Print Production Manager Relationship Specialty Start Date End Date Rafa Bergman MD [address] [place] [address] [place] [phone] PCP - General Family Medicine 04/19/21 documented as of this encounter
--- OUTSIDE RECORDS SUMMARY | 2024-07-24 00:07 | External Medical Summary | Summary of Care ---
Author Name Unknown Organization [facility] Address [address] [place] [address] Phone [phone] Care Team Providers Care Heater Mechanic Name Role Phone Rafa Bergman MD Primary Care Provide r Encounter Details Date Type Department Care Team (Late st Contact Info) Description 06/07/2024 Telephone Family Practice [address] [place] [address] [address] [place] [address] Garrett Perez MD [address] [place] [address] Allergies Active Allergy Reactions Criticality Noted Date [...] goal LDL below 70,Coronary artery disease involving wampanoag coronary artery of wamp[place] heart without angina pectoris TAKE ONE TABLET BY MOUTH IN THE MORNING 90 Tablet 3 05/25/2024 7:44 AM EST 4 Active Propranolol HCl 10 MG Oral Tablet (Inderal)Indicat ions:Sinus tachycardia,Tach y-chintan syndrome (HCC),Coronary artery disease involving wampanoag coronary artery of wampanoag heart without angina pectoris,Presenc e of cardiac [...] on left 80 mg IV PUSH ONCE 06/07/2024 06/07/2024 Ended documented as of this encounter (statuses [...] 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 History of VT (myocardial infarction) 11/27/2022 Assessment & Plan (04/16/2024 [...] S/P angioplasty with stent 11/27/2018 Atherosclerosis of wampanoag co ronary artery of wampanoag heart without angina pectoris 07/08/2018 Overview (11/21/2023): history of NSTEMI status post AMIE to LAD (culprit) and RCA, 04/28/2018 Assessment & Plan (01/24/2024 4:40 PM EDT): Cardiac rehab at [facility] 2x week Assessment & Plan (11/21/2023 5:32 [...] 09/13/2022 11/08/2023 Atherosclerosis of coronary artery of wampanoag heart without angina pectoris 09/10/2022 10/31/2022 Hypothyroidism [...] filter 02/28/2015 Atherosclerotic heart diseas e of wampanoag coronary artery with angina pectoris 11/2018 CKD [...] 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 Not on file Not on file documented as of this encounter Plan of Treatment Upcoming Encounters Date Type Department Care Team (Late st Contact Info) Description 06/08/2024 10:00 AM EDT Scheduled Telephone [facility] [place], [facility] [address] [address] Coordinator, [facility] [address] [address] 06/12/2024 3:00 PM EDT Home Visit [facility] [place], [facility] [address] [address] Olinda Briggs, CHRISTINA [address] [place] [address] 06/22/2024 11:00 AM EDT [facility], [facility] [address] [place] [address] Leon Live PA-C [address] [place] [address] 06/22/2024 2:30 PM EDT Office Visit Urogynecology [facility] [address] [place] [address] Quincy Garcia MD [address] [place] [address] 06/25/2024 9:00 AM EDT Office Visit Family Medicine [address] [place] [phone] Rafa Bergman MD [address] [place] [address] [place] [address] 06/26/2024 11:30 AM EDT Office Visit Ophthalmology, [facility] [address] [place] [address] Pedro Tinsley, [address] [place] [address] 07/06/2024 8:40 AM EDT Office Visit Neurology [facility] [address] [place] [address] Alfonso Manning MD [address] [place] [address] 07/06/2024 11:00 AM EDT [facility] [address] [place] [address] Leon Live PA-C [address] [place] [address] 07/14/2024 2:30 PM EDT Cardiac Studies Cardiology [address] [place] [address] [place], Pacer [facility] [address] [place] [address] 07/21/2024 10:00 AM EDT Imaging Radiology [facility] [address] [place] [phone] 08/18/2024 10:20 AM EDT Laboratory Laboratory [address] [place] [phone] [address] [place] [address] 08/21/2024 3:00 PM EDT Office Visit Rheumatology [address] [place] [phone] José Miguel Cullen CRNP [address] [place] [address] [place] [address] 08/25/2024 3:30 PM EDT Office Visit Hematology/Oncology [facility] [address] [place] [phone] Arianna Szymanski MD [address] [place] [address] 09/11/2024 12:50 PM EDT Office Visit Dermatology, Jesu Wilson [address] [place] [address] Dasha Nelson PA-C [address] [phone] 10/05/2024 1:30 PM EDT Office Visit Cardiology, [facility] [address] [place] [address] Charles Ortega O, DO [address] [place] [address] Health Maintenance Due Date Last Done Comments Adult Wellness Visit 02/06/2018 02/06/2017 Depression Screening 07/17/2022 07/17/2021 COVID-19 Vaccine ( season) 2023 02/05/2022, 08/02/2021, 02/28/2021, Additional history exists Influenza Vaccine (FLU shot) (#1) 2023 04/19/2023, 01/30/2022, 12/28/2020, Additional history exists Albumin/Creatinine Ratio 02/13/2024 023, 03/21/2022, 04/19/2021, Additional history exists HbA1c 04/26/2024 04/26/2023, 03/02, 04/19/2021, Additional history exists CKD PHOS USE SMARTSET 15310 06/26/202405/31, 04/19/2021, 11/27/2019, Additional history exists DXA Scan 07/18/2024 07/18/2022, 06/30, 12/22/2019, Additional history exists GFR 12/08/2024 06/07/2024, 01/30, 11/05/2023, Additional history exists CKD HGB USE SMARTSET 07579 02/16/202502/16, 02/17/2024, 06/27/2023, Additional history exists TSH 04/24/2025 04/24/2024, /10/2024, 11/15/2023, Additional history exists DTap/Tdap Vaccines (3 - Td or Tdap) 09/30/2033 10/01/2023, 11/03/2007 Hepatitis B Vaccine Completed 03/18/2009, 06/14/2008, 05/12/2008 Pneumococcal Vaccine: 50+ Years Completed 03/28/2015, 03/20/2010, 11/15/2004 RETIRED - COLONOSCOPY-EVERY 5 YRS AGES 18-100 Discontinued 02/27/2017, 02/27/2017, 10/17/2004 Zoster Vaccines Completed 06/12/2021, 02/01, 11/04/2012 VITAMIN D LEVEL ONCE IN A LIFETIME-USE SMARTSET# [id number] Completed 06/27/2023, 11/06/2021, 12/28/2019, Additional history exists [...] this encounter Medical Devices Implanted Type Area Solution Strategist Device Identifier Shelf Expiration Date Model / Serial / Lot Lens Intraoc 21.5 - [id number] - [id number] Implanted:Qty: 1 on 05/12/2019 by Yury Brady MD at OR [facility] Right: Eye [employer] 12/30/2023 [id number] / [id number] / [id number] Lens Intraoc 22.5 - [id number] - [id number] Implanted:Qty: 1 on 04/05/2020 by Yury Brady MD at OR [facility] Left: Eye [employer] 09/28/2024 [id number] / [id number] / [id number] documented as of this encounter Visit Diagnoses Diagnosis Hypertensive kidney disease with stage 3a chronic kidney disease- Primary Atherosclerosis of wampanoag coronary artery of wampanoag heart without angina pectoris Dyslipidemia, goal LDL below 70 Other and unspecified hyperlipidemia History of pulmonary embolism Personal history of pulmonary embolism Tachy-chintan syndrome (HCC) Sinoatrial node dysfunction S/P placement of cardiac pacemaker Cardiac pacemaker in situ Arthralgia of right hip Gastro-esophageal reflux disease with esophagitis, without bleeding Sinus tachycardia Other specified cardiac dysrhythmias Coronary artery disease involving wampanoag coronary artery of wampanoag heart without angina pectoris Presence of cardiac pacemaker Cardiac pacemaker in situ Palpitations HTN, goal below 140/90 Unspecified essential hypertension Hypertensive kidney disease with stage 3a chronic kidney disease- Primary Dyslipidemia, goal LDL below 70 Other and unspecified hyperlipidemia Gastro-esophageal reflux disease with esophagitis, without bleeding Atherosclerosis of wampanoag coronary artery of wampanoag heart without angina pectoris Advanced care planning/counseling discussion- Primary Other specified counseling Hypertensive kidney disease with stage 3a chronic kidney disease (HCC) History of VT (myocardial infarction) Old myocardial infarction Tachy-chintan syndrome [...] on File Type Date Recorded Patient Director Network Development Expl anation Advance Directives and Living Will [...] Agen t (per Health Care Power of Sports Media document) Guille Urban Adult Child Health Care Agen t (per Health Care Power of Sports Media document) [email or web address] om Care Teams Heater Mechanic Relationship Specialty Start Date End Date Rafa Bergman MD [address] [place] [address] [place] [phone] PCP - General Family Medicine 04/19/21 documented as of this encounter
--- OUTSIDE RECORDS SUMMARY | 2024-07-24 00:07 | External Medical Summary | Summary of Care ---
Author Name Unknown Organization [facility] Address [address] [place] [facility] [place] [address] Phone [phone] Care Team Providers Care Ornithology Teacher Name Role Phone Rafa Bergman MD Primary Care Provide r Reason for Visit * Reason Onset Date Comments [facility]: Maintenance 06/07/2024 Encounter Details Date Type Department Care Team (Late st Contact Info) Description 06/07/2024 Telephone [facility], [facility] [address] [facility] [place] [phone] Yamilka Wells RN [address] [facility] [place] [address] [facility]: Maintenance [...] goal LDL below 70,Coronary artery disease involving kaibab coronary artery of kaibab heart without angina pectoris TAKE ONE TABLET BY MOUTH IN THE MORNING 90 Tablet 3 05/25/2024 7:44 AM EST 4 Active Propranolol HCl 10 MG Oral Tablet (Inderal)Indicat ions:Sinus tachycardia,Tach y-chintan syndrome (HCC),Coronary artery disease involving kaibab coronary artery of kaibab heart without angina pectoris,Presenc e of cardiac [...] S/P angioplasty with stent 11/27/2018 Atherosclerosis of kaibab co ronary artery of kaibab heart without angina pectoris 07/08/2018 Overview (11/21/2023): [...] 09/13/2022 11/08/2023 Atherosclerosis of coronary artery of kaibab heart without angina pectoris 09/10/2022 10/31/2022 Hypothyroidism [...] filter 02/28/2015 Atherosclerotic heart diseas e of kaibab coronary artery with angina pectoris 11/2018 CKD [...] Not on file 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 Call to [facility], spoke with Prachi, she then transferred me to dispatch who said they never receivedthe CXR order so they did not go out. Dispatch transferred me to the fax department and the call was disconnected. Call back to Prachi at [facility], faxed the CXR 3 more times, hoping they receive the fax as Prachi is unable to see if transmission was complete. KUNAL MoralesN Registered Nurse Navigator Triage [facility] documented in this encounter Plan of Treatment Upcoming Encounters Date Type Department Care Team (Late st Contact Info) Description 06/12/2024 3:00 PM EDT Home Visit [facility] [place], [facility] [address] [place] [address] Olinda Briggs RN [address] [place] [address] 06/22/2024 11:00 AM EDT [facility] [address] [place] [address] Leon Live PA-C [address] [place] [address] 06/22/2024 2:30 PM EDT Office Visit Urogynecology [facility] [address] [address] Quincy Garcia MD [address] [place] [address] 06/25/2024 9:00 AM EDT Office Visit Family Medicine [address] [place] [phone] Rafa Bergman MD [address] [place] [address] [place] [address] 06/26/2024 11:30 AM EDT Office Visit Ophthalmology, [facility] [address] [place] [address] Pedro Tinsley DO [address] [place] [address] 07/06/2024 8:40 AM EDT Office Visit Neurology [facility] [place] [address] [place] [address] Alfonso Manning MD [address] [place] [address] 07/06/2024 11:00 AM EDT Home Visit [facility] [place], [facility] [address] [place] [address] Leon Live PA-C [address] [place] [address] 07/14/2024 2:30 PM EDT Cardiac Studies Cardiology [address] [place] [address] [facility] [address] [place] [address] 07/21/2024 10:00 AM EDT Imaging Radiology [facility] [address] [place] [phone] 08/18/2024 10:20 AM EDT Laboratory Laboratory [address] [place] [phone] [facility] [address] [place] [address] 08/21/2024 3:00 PM EDT Office Visit Rheumatology [address] [place] [phone] José Miguel Cullen CRNP [address] [place] [address] [place] [address] 08/25/2024 3:30 PM EDT Office Visit Hematology/Oncology [facility] [address] [facility] [place], [place] [address] Arianna Szymanski MD [address] [facility] [place] [address] 09/11/2024 12:50 PM EDT Office Visit Dermatology, Jesu Wilson [address] [place] [phone] Dasha Nelson PA-C [address] [place] [address] [address] 10/05/2024 1:30 PM EDT Office Visit Cardiology, [facility] [address] [place] [address] Charles Ortega DO [address] [facility] [place] [address] Scheduled Orders Name Type Priority Associated Diagnoses Orde r Schedule BASIC METABOLIC PANEL Lab STAT Pleural effusion on left Expected: 06/07/2024 (Approximate), Expires: 06/07/2025 Health Maintenance Due Date Last Done Comments Adult Wellness Visit 02/06/2018 02/06/2017 Depression Screening 07/17/2022 07/17/2021 COVID-19 Vaccine ( season) 2023 02/05/2022, 08/02/2021, 02/28/2021, Additional history exists Influenza Vaccine (FLU shot) (#1) 2023 04/19/2023, 01/30/2022, 12/28/2020, Additional history exists Albumin/Creatinine Ratio 02/13/2024 023, 03/21/2022, 04/19/2021, Additional history exists HbA1c 04/26/2024 04/26/2023, 03/02, 04/19/2021, Additional history exists CKD PHOS USE SMARTSET 41837 06/26/202405/31, 04/19/2021, 11/27/2019, Additional history exists DXA Scan 07/18/2024 07/18/2022, 06/30, 12/22/2019, Additional history exists GFR 08/16/2024 02/17/2024, 08/0 08/2023, 06/27/2023, Additional history exists CKD HGB USE SMARTSET 26694 02/16/202502/16, 02/17/2024, 06/27/2023, Additional history exists TSH [...] D LEVEL ONCE IN A LIFETIME-USE SMARTSET# [id number] Completed 06/27/2023, 11/06/2021, 12/28/2019, Additional history exists [...] this encounter Medical Devices Implanted Type Area Pumping Station Engineer Device Identifier Shelf Expiration Date Model / Serial / Lot Lens Intraoc 21.5 - [id number] - [id number] Implanted:Qty: 1 on 05/12/2019 by Yury Brady MD at OR [facility] Right: Eye [employer] 12/30/2023 [id number] / [id number] / [id number] Lens Intraoc 22.5 - [id number] - [id number] Implanted:Qty: 1 on 04/05/2020 by Yury Brady MD at OR [facility] Left: Eye [employer] 09/28/2024 [id number] / [id number] / [id number] documented as of this encounter Visit Diagnoses Diagnosis Hypertensive kidney disease with stage 3a chronic kidney disease- Primary Atherosclerosis of kaibab coronary artery of kaibab heart without angina pectoris Dyslipidemia, goal LDL below 70 Other and unspecified hyperlipidemia History of pulmonary embolism Personal history of pulmonary embolism Tachy-chintan syndrome (HCC) Sinoatrial node dysfunction S/P placement of cardiac pacemaker Cardiac pacemaker in situ Arthralgia of right hip Gastro-esophageal reflux disease with esophagitis, without bleeding Sinus tachycardia Other specified cardiac dysrhythmias Coronary artery disease involving kaibab coronary artery of kaibab heart without angina pectoris Presence of cardiac pacemaker Cardiac pacemaker in situ Palpitations HTN, goal below 140/90 Unspecified essential hypertension Hypertensive kidney disease with stage 3a chronic kidney disease- Primary Dyslipidemia, goal LDL below 70 Other and unspecified hyperlipidemia Gastro-esophageal reflux disease with esophagitis, without bleeding Atherosclerosis of kaibab coronary artery of kaibab heart without angina pectoris Advanced care planning/counseling discussion- Primary Other specified counseling Hypertensive kidney disease with stage 3a chronic kidney disease (HCC) History of [place] (myocardial infarction) Old myocardial infarction Tachy-chintan syndrome [...] Documents on File Type Date Recorded Patient Awnings Mechanic Expl anation Advance Directives and Living [...] Agen t (per Health Care Power of Plate Glass Installer Helper document) Guille Urban Adult Child Health Care Agen t (per Health Care Power of Plate Glass Installer Helper document) [email or web address] om Care Teams Ornithology Teacher Relationship Specialty Start Date End Date Rafa Bergman MD [address] [place] [address] [place] [phone] PCP - General Family Medicine 04/19/21 documented as of this encounter
--- OUTSIDE RECORDS SUMMARY | 2024-07-24 00:08 | External Medical Summary | Summary of Care ---
Author Name Unknown Organization [facility] Address [address] [facility] [place] [address] Phone [phone] Care Team Providers Care Teacher Of The Hearing Impaired Name Role Phone Rafa Bergman MD Primary Care Provide r Reason for Visit * Reason Onset Date Comments [facility]: Maintenance 06/07/2024 Encounter Details Date Type Department Care Team (Late st Contact Info) Description 06/07/2024 Telephone [facility], [facility] [address] [facility] [place] [phone] Yamilka Wells RN [address] [facility] [address] [facility]: Maintenance [...] goal LDL below 70,Coronary artery disease involving cocop[place] coronary artery of cocop[place] heart without angina pectoris TAKE ONE TABLET BY MOUTH IN THE MORNING 90 Tablet 3 05/25/2024 7:44 AM EST 4 Active Propranolol HCl 10 MG Oral Tablet (Inderal)Indicat ions:Sinus tachycardia,Tach y-chintan syndrome (HCC),Coronary artery disease involving cocopah coronary artery of cocop[place] heart without angina pectoris,Presenc e of cardiac [...] 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 History of ID (myocardial infarction) 11/27/2022 Assessment & Plan (04/16/2024 [...] S/P angioplasty with stent 11/27/2018 Atherosclerosis of cocopah co ronary artery of cocop[place] heart without angina pectoris 07/08/2018 Overview (11/21/2023): history of NSTEMI status post AMIE to LAD (culprit) and RCA, 04/28/2018 Assessment & Plan (01/24/2024 4:40 PM EDT): Cardiac rehab at [facility] 2x week Assessment & Plan [...] 09/13/2022 11/08/2023 Atherosclerosis of coronary artery of cocop[place] heart without angina pectoris 09/10/2022 10/31/2022 Hypothyroidism [...] filter 02/28/2015 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 Call to [facility], spoke with Prachi, she then transferred me to dispatch who said they never receivedthe CXR order so they did not go out. Dispatch transferred me to the fax department and the call was disconnected. Call back to Prachi at [facility], faxed the CXR 3 more times, hoping they receive the fax as Prachi is unable to see if transmission was complete. KUNAL MoralesN Registered Nurse Navigator Triage [facility] documented in this encounter Plan of Treatment Upcoming Encounters Date Type Department Care Team (Late st Contact Info) Description 06/12/2024 3:00 PM EDT [facility] Visit [facility] [place] [address] [place] [address] Olinda Briggs RN [address] [place] [address] 06/22/2024 11:00 AM EDT [facility] [address] [place] [address] Leon Live PA-C [address] [place] [address] 06/22/2024 2:30 PM EDT Office Visit Urogynecology [facility] [address] [place] [address] Quincy Garcia MD [address] [place] [address] 06/25/2024 9:00 AM EDT Office Visit Family Medicine [address] [place] [phone] Rafa Bergman MD [address] [place] [address] [place] [address] 06/26/2024 11:30 AM EDT Office Visit Ophthalmology, [facility] [address] [place] [address] Pedro Tinsley DO [address] [place] [address] 07/06/2024 8:40 AM EDT Office Visit Neurology [facility] [address] [place] [address] Alfonso Manning MD [address] [place] [address] 07/06/2024 11:00 AM EDT Home Visit [facility] [place], [facility] [address] [place] [address] Leon Live PA-C [address] [place] [address] 07/14/2024 2:30 PM EDT Cardiac Studies Cardiology [address] [place] [address] [facility] [address] [place] [address] 07/21/2024 10:00 AM EDT Imaging Radiology [facility] [address] [place] [phone] 08/18/2024 10:20 AM EDT Laboratory Laboratory [address] [place] [phone] [facility] [address] [place] [address] 08/21/2024 3:00 PM EDT Office Visit Rheumatology [address] [place] [phone] José Miguel Cullen CRNP [address] [place] [address] [place] [address] 08/25/2024 3:30 PM EDT Office Visit Hematology/Oncology [facility] [address] [facility], [place] [phone] Arianna Szymanski MD [address] [place] [address] 09/11/2024 12:50 PM EDT Office Visit Dermatology, [facility] Wilson [address] [place] [phone] Dasha Nelson PA-C [address] [place] [address] 10/05/2024 1:30 PM EDT Office Visit Cardiology, [facility] [address] [place] [address] Charles Ortega DO [address] [facility] [place] [address] Scheduled Orders Name Type Priority Associated Diagnoses [...] Additional history exists CKD PHOS USE SMARTSET 44311 06/26/202405/31, 04/19/2021, 11/27/2019, Additional history exists DXA Scan 07/18/2024 07/18/2022, 06/30, 12/22/2019, Additional history exists GFR 08/16/2024 02/17/2024, 08/0 08/2023, 06/27/2023, Additional history exists CKD HGB USE SMARTSET 47456 02/16/202502/16, 02/17/2024, 06/27/2023, Additional history exists TSH [...] D LEVEL ONCE IN A LIFETIME-USE SMARTSET# 62105 Completed 06/27/2023, 11/06/2021, 12/28/2019, Additional history exists [...] this encounter Medical Devices Implanted Type Area Automatic Folder Seamer Device Identifier Shelf Expiration Date Model / Serial / Lot Lens Intraoc 21.5 - [id number] - [id number] Implanted:Qty: 1 on 05/12/2019 by Yury Brady MD at [facility] Right: Eye [employer] 12/30/2023 [id number] / [id number] / [id number] Lens Intraoc 22.5 - [id number] - [id number] Implanted:Qty: 1 on 04/05/2020 by Yury Brady MD at [facility] Left: Eye [employer]OMB 09/28/2024 [id number] / [id number] / [id number] documented as of this encounter Visit Diagnoses Diagnosis Hypertensive kidney disease with stage 3a chronic kidney disease- Primary Atherosclerosis of cocopah coronary artery of cocopah heart without angina pectoris Dyslipidemia, goal LDL below 70 Other and unspecified hyperlipidemia History of pulmonary embolism Personal history of pulmonary embolism Tachy-chintan syndrome (HCC) Sinoatrial node dysfunction S/P placement of cardiac pacemaker Cardiac pacemaker in situ Arthralgia of right hip Gastro-esophageal reflux disease with esophagitis, without bleeding Sinus tachycardia Other specified cardiac dysrhythmias Coronary artery disease involving cocopah coronary artery of cocopah heart without angina pectoris Presence of cardiac pacemaker Cardiac pacemaker in situ Palpitations HTN, goal below 140/90 Unspecified essential hypertension Hypertensive kidney disease with stage 3a chronic kidney disease- Primary Dyslipidemia, goal LDL below 70 Other and unspecified hyperlipidemia Gastro-esophageal reflux disease with esophagitis, without bleeding Atherosclerosis of cocopah coronary artery of cocopah heart without angina pectoris Advanced care planning/counseling discussion- Primary Other specified counseling Hypertensive kidney disease with stage 3a chronic kidney disease (HCC) History of ID (myocardial infarction) Old myocardial infarction Tachy-chintan syndrome [...] Documents on File Type Date 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
--- OUTSIDE RECORDS SUMMARY | 2024-07-24 00:08 | External Medical Summary | Summary of Care ---
Author Name Unknown Organization [facility] Address [address] [place] [facility] [place] [address] Phone [phone] Care Team Providers Care Television Specialist Name Role Phone Rafa Bergman MD Primary Care Provide r Encounter Details Date Type Department Care Team (Late st Contact Info) Description 06/06/2024 1:15 PM EST [facility] [address] [facility] [place] [address] [facility], Nurse [facility] [address] [facility] [place] [address] Allergies Active Allergy Reactions Criticality Noted Date Comments Colchicine Diarrhea 06/16/2018 Daptomycin 01/05/2015 Shortness of breath Imipenem Edema airway High 01/05/2015 Metoprolol Low 01/23/2021 Other reaction(s): fatigue Zoledronic Acid 04/24/2012 Myalgias, fever, chills, vomiting x 2 days Sulfa Antibiotics 12/22/2002 Bactrim--itchy all over, eyes swollen documented as of this encounter (statuses as of 06/06/2024) Medications ASPIRIN 81 MG PO TABS Take [...] goal LDL below 70,Coronary artery disease involving [place]apai coronary artery of [place] heart without angina pectoris TAKE ONE TABLET BY MOUTH IN THE MORNING 90 Tablet 3 05/25/2024 7:44 AM EST 4 Active Propranolol HCl 10 MG Oral Tablet (Inderal)Indicat ions:Sinus tachycardia,Tach y-chintan syndrome (HCC),Coronary artery disease involving h[place]apai coronary artery of [place] heart without angina pectoris,Presenc e of cardiac [...] as of this encounter (statuses as of 06/06/2024) Active Problems Problem Noted Date Diagnosed Date [...] S/P angioplasty with stent 11/27/2018 Atherosclerosis of [place]ualapai co ronary artery of [place]ap[place] heart without angina pectoris 07/08/2018 Overview (11/21/2023): [...] as of this encounter (statuses as of 06/06/2024) Resolved Problems Problem Noted Date Diagnosed Date Resolved Date Purulent endophthalmitis of right eye 01/03/2023 11/08/2023 Other pulmonary embolism wit h acute cor pulmonale 10/01/2022 04/26/2023 Overview (04/26/2023): history Medical home patient encounter 09/13/2022 11/08/2023 Atherosclerosis of coronary artery of [place]ap[place] heart without angina pectoris 09/10/2022 10/31/2022 Hypothyroidism [...] filter 02/28/2015 Atherosclerotic heart diseas e of hualap[place] coronary artery with angina pectoris 11/2018 CKD (chronic kidney disease) stage 2, GFR 60-89 ml/min 03/12/2019 documented as of this encounter (statuses as of 06/06/2024) Immunizations Name Administration Dates Next Due COVID-19 [...] Not on file 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 Not on file Not on file documented as of this encounter Last Filed Vital Signs Vital Sign Reading Time Taken Comments Blood Pressure 118/68 06/06/2024 12:21 PM EST Pulse 95 06/06/2024 11:05 AM EST Temperature 36.8 °C (98.2 °F) 06/06/2024 11:[address] Respiratory Rate 20 06/06/2024 11:05 AM EST Oxygen Saturation 96% 06/06/2024 11:05 AM EST Inhaled Oxygen Concentration - - Weight - - Height - - Body Mass Index - - documented in this encounter Progress Notes * Kasey Sanabria RN - 06/06/2024 1:15 PM EST Current Concerns: Acute visit--f/u acute visit Chest xray last 06/04/24- moderate left pleural effusion. Started medrol dose pack, Levaquin every other day. IV lasix 80mg given 3/7/25 PCR swab +RSV 06/05/24 Today notes improvement in the past 24. Large urinary output yesterday after IV lasix. A lot less coughing-sputum now clear , not as fatigued No fever since Last night able to lay down and sleep -breathing felt better Winded with exertion-improved in the past 24 hours BP 120/70 | Pulse 95 | Temp 36.8 °C (98.2 °F) (Infrared ) | Resp 20 | SpO2 96% Lungs diminished L/base, clear otherwise trace LE edema Reviewed with Orders for IV Lasix 80 mg and CXR stat Yamilka was able to confirm Trident will complete cxr today. 1145-PIV started LAC x 1 attempt 80 mg IV lasix administered Pt tolerated well. Potassium 10 meq 1 tablet administered per provider orders 06/05/24 Physical Exam: Physical Exam Constitutional: General: She is not in acute distress. HENT: Head: Normocephalic. Nose: Nose normal. Mouth/Throat: Mouth: Mucous membranes are moist. Cardiovascular: Rate and Rhythm: Normal rate and regular rhythm. Pulmonary: Effort: Pulmonary effort is normal. No respiratory distress. Breath sounds: No wheezing, rhonchi or rales. Musculoskeletal: Right lower leg: Edema present. Left lower leg: Edema present. Skin: General: Skin is warm and dry. Neurological: Mental Status: She is alert and oriented to person, place, and time. Review of Systems: Review of Systems Constitutional: Negative. HENT: Negative for congestion. Respiratory: Positive for cough and shortness of breath. Negative for chest tightness and wheezing. Cardiovascular: Positive for leg swelling. Negative for chest pain and palpitations. Gastrointestinal: Negative. Skin: Negative. Neurological: Negative. Care Plan Goal Progress: Orders Placed: No orders of the defined types were placed in this encounter. Medications Given: Administrations This Visit Furosemide (Lasix) inj 80 mg Admin Date 06/06/2024 Action Given Dose 80 mg Route IV Push Documented By Kasey Sanabria RN Care Gaps: Care Gaps Care gaps closed this contact: Lab/radiology testing coordinated (06/06/24 1209) Type of education: Clinical/disease (06/06/24 1127) Procedure performed: IV medication (06/06/24 112) documented in this encounter Plan of Treatment Upcoming Encounters Date Type Department Care Team (Late st Contact Info) Description 06/07/2024 10:45 AM EDT [facility] [place] [address] [facility], Nurse [facility] [address] [place] [address] 06/12/2024 3:00 PM EDT [facility] Visit [facility] [place], [facility] [address] [place] [address] Olinda Brigsg RN [address] [place] [address] 06/22/2024 11:00 AM EDT [facility] Visit [facility], [facility] [address] [place] [address] Leon Live PA-C [address] [place] [address] 06/22/2024 2:30 PM EDT Office Visit Urogynecology [facility] [address] [place] [address] Quincy Garcia MD [address] [place] [address] 06/25/2024 9:00 AM EDT Office Visit Family Medicine [address] [place] [phone] Rafa Bergman MD [address] [place] [address] [place] [address] 06/26/2024 11:30 AM EDT Office Visit Ophthalmology, [facility] [address] [place] [address] Pedro Tinsley DO [address] [place] [address] 07/06/2024 8:40 AM EDT Office Visit Neurology [facility] [address] [place] [address] Alfonso Manning MD [address] [place] [address] 07/06/2024 11:00 AM EDT [facility] Visit [facility] [address] [place] [address] Leon Live PA-C [address] [place] [address] 07/14/2024 2:30 PM EDT Cardiac Studies Cardiology [address] [place] [address] MovCadence diana [facility] [address] [place] [address] 07/21/2024 10:00 AM EDT Imaging Radiology [facility] [address] [place] [phone] 08/18/2024 10:20 AM EDT Laboratory Laboratory [address] [place] [phone] [address] [place] [address] 08/21/2024 3:00 PM EDT Office Visit Rheumatology [address] [place] [phone] José Miguel Cullen CRNP [address] [place] [address] [place] [address] 08/25/2024 3:30 PM EDT Office Visit Hematology/Oncology [facility] Raina [place] [address] [facility] [place] [phone] Arianna Szymanski MD 200 [facility] [place] [address] 09/11/2024 12:50 PM EDT Office Visit Dermatology, Jesu Wilson [address] [place] [address] Dasha Nelson PA-C [address] [place] [address] [address] 10/05/2024 1:30 PM EDT Office Visit Cardiology, [facility] [address] [place] [address] Charles Ortega DO [address] [place] [address] Health Maintenance Due Date Last Done Comments Adult Wellness Visit 02/06/2018 02/06/2017 Depression Screening 07/17/2022 07/17/2021 COVID-19 Vaccine ( season) 2023 02/05/2022, 08/02/2021, 02/28/2021, Additional history exists Influenza Vaccine (FLU shot) (#1) 2023 04/19/2023, 01/30/2022, 12/28/2020, Additional history exists Albumin/Creatinine Ratio 02/13/2024 023, 03/21/2022, 04/19/2021, Additional history exists HbA1c 04/26/2024 04/26/2023, 03/02, 04/19/2021, Additional history exists CKD PHOS USE SMARTSET 64979 06/26/202405/31, 04/19/2021, 11/27/2019, Additional history exists DXA Scan 07/18/2024 07/18/2022, 06/30, 12/22/2019, Additional history exists GFR 08/16/2024 02/17/2024, 08/2023, 06/27/2023, Additional history exists CKD HGB USE SMARTSET 03460 02/16/202502/16, 02/17/2024, 06/27/2023, Additional history exists TSH [...] D LEVEL ONCE IN A LIFETIME-USE SMARTSET# 41209 Completed 06/27/2023, 11/06/2021, 12/28/2019, Additional history exists [...] this encounter Medical Devices Implanted Type Area Electrical Estimator Device Identifier Shelf Expiration Date Model / Serial / Lot Lens Intraoc 21.5 - [id number] - [id number] Implanted:Qty: 1 on 05/12/2019 by Yury Brady MD at [facility] Right: Eye [employer] 12/30/2023 [id number] / [id number] / [id number] Lens Intraoc 22.5 - [id number] - [id number] Implanted:Qty: 1 on 04/05/2020 by Yury Brady MD at [facility] Left: Eye [employer]OMB 09/28/2024 [id number] / [id number] / [id number] documented as of this encounter Administered Medications Inactive Administered Medications - up to 3 most recent administrations Medication Order MAR Action Action Date Dose Rate Site Furosemide (Lasix) inj 80 mg 80 mg, IV Push, ONCE, On 06/06/24 at 1200, For 1 doseIndications:Pleural effusion on left Given 06/06/2024 11:45 AM EST 80 mg Antecubital Left documented in this encounter Additional Health Concerns Infection Onset Date Last Indicated Resolved Time RSV 06/05/2024 06/05/2024 documented as of this encounter Advance Directives Documents on File Type Date 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
--- OUTSIDE RECORDS SUMMARY | 2024-07-24 00:08 | External Medical Summary ---
Author Name Unknown Address Unknown Organization K1F[facility] [address] [place] [address] Laboratory Report Ordering Provider Test Date Status ANTONINO NEVILLE 06/07/2024 14:30:02 Final Observation Date Value Abnormality Reference (Units ) Status BUN 06/07/2024 14:30:02 36 Above high normal 6-20 (mg/dL) Final Creatinine 06/07/2024 14:30:02 1.0 0.5-1.0 (mg/dL) Final Glomerular filtration rate/1.73 sq M.predicted [Volume Rate/Area] in Serum, Plasma or Blood by Creatinine-based formula (CKD-EPI) 06/07/2024 14:30:02 55 Below low normal >=60 (mL/min) Final eGFR is calculated based on the CKD-EPI 2020 equation. Sodium 06/07/2024 14:30:02 145 135-146 (m mol/L) Final Potassium 06/07/2024 14:30:02 4.3 3.5-5.1 (m mol/L) Final Cl 06/07/2024 14:30:02 103 98-107 (mm ol/L) Final CO2 06/07/2024 14:30:02 30 22-32 (mmo l/L) Final Anion gap 06/07/2024 14:30:02 12 7-15 (mmol /L) Final Glucose 06/07/2024 14:30:02 142 Above high normal 70 -120 (mg/dL) Final Calcium 06/07/2024 14:30:02 10.1 8.4-10.2 ( mg/dL) Final Performing Location [facility] [address] [facility] [place] [address]
--- OUTSIDE RECORDS SUMMARY | 2024-07-24 00:08 | External Medical Summary | Summary of Care ---
Author Name Unknown Organization [facility] Address [address] [place] [facility] [place] [address] Phone [phone] Care Team Providers Care Meat Lugger Name Role Phone Rafa Bergman MD Primary Care Provide r Reason for Visit * Reason Onset Date Comments [facility]: Maintenance 06/06/2024 Encounter Details Date Type Department Care Team (Late st Contact Info) Description 06/06/2024 Telephone [facility], [place] [address] [facility] [place] [address] Yamilka Wells RN [address] [place] [address] [place] [phone] [facility]: Maintenance Allergies Active [...] goal LDL below 70,Coronary artery disease involving salt river coronary artery of salt river heart without angina pectoris TAKE ONE TABLET BY MOUTH IN THE MORNING 90 Tablet 3 05/25/2024 7:44 AM EST 4 Active Propranolol HCl 10 MG Oral Tablet (Inderal)Indicat ions:Sinus tachycardia,Tach y-chintan syndrome (HCC),Coronary artery disease involving salt river coronary artery of salt river heart without angina pectoris,Presenc e of cardiac [...] 01/03/2023 History of WI (myocardial infarction) 11/27/2022 Assessment & Plan (04/16/2024 [...] S/P angioplasty with stent 11/27/2018 Atherosclerosis of salt river co ronary artery of salt river heart without angina pectoris 07/08/2018 Overview (11/21/2023): [...] 09/13/2022 11/08/2023 Atherosclerosis of coronary artery of salt river heart without angina pectoris 09/10/2022 10/31/2022 [...] filter 02/28/2015 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 RNCM to fax [employer] to have stat CXR completed today at patient's home. Spoke with [employer] stat CXR order and demographics faxed to [phone], claim number [id number] [facility] confirmed they will perform CXR today. RUBY Morales Registered Nurse Navigator Triage [facility] documented in this encounter Plan of Treatment Upcoming Encounters Date Type Department Care Team (Late st Contact Info) Description 06/06/2024 1:15 PM EST Home Visit [facility], [address] [place] [address] [facility], Nurse [facility] [address] [place] [address] 06/12/2024 3:00 PM EDT Home Visit [facility], [facility] [address] [place] [address] Olinda Briggs RN [address] [place] [address] 06/22/2024 11:00 AM EDT Home Visit [facility], [facility] [address] [place] [address] Leon Live PA-C [address] [place] [address] 06/22/2024 2:30 PM EDT Office Visit Urogynecology [facility] [address] [place] [address] Quincy Garcia MD [address] [place] [address] 06/25/2024 9:00 AM EDT Office Visit Family Medicine [address] [place] [address] Rafa Bergman MD [address] [place] [address] [place] [address] 06/26/2024 11:30 AM EDT Office Visit Ophthalmology, [facility] [address] [place] [address] Pedro Tinsley DO [address] [place] [address] 07/06/2024 8:40 AM EDT Office Visit Neurology [facility] [address] [facility] [address] Alfonso Manning MD [address] [place] [address] 07/06/2024 11:00 AM EDT Home Visit [facility], [facility] [address] [place] [address] Leon Live PA-C [address] [place] [address] 07/14/2024 2:30 PM EDT Cardiac Studies Cardiology [address] [place] [address] [facility] [address] [place] [address] 07/21/2024 10:00 AM EDT Imaging Radiology [facility] [place] [phone] 08/18/2024 10:20 AM EDT Laboratory Laboratory [address] [place] [phone] [address] [place] [address] 08/21/2024 3:00 PM EDT Office Visit Rheumatology [address] [place] [address] José Miguel Cullen CRNP [address] [place] [address] [place], [place] [address] 08/25/2024 3:30 PM EDT Office Visit Hematology/Oncology [facility] [place] [address] [place] [phone] Arianna Szymanski MD [address] [place] [address] 09/11/2024 12:50 PM EDT Office Visit Dermatology, [place]n GarcesJesu [address] [place] [address] Dasha Nelson PA-C [address] [place] [address] 10/05/2024 1:30 PM EDT Office Visit Cardiology, [facility] 132 [place] [address] Charles Ortega DO 132 [place] [address] Health Maintenance Due Date Last Done Comments Adult Wellness Visit 02/06/2018 02/06/2017 Depression Screening 07/17/2022 07/17/2021 COVID-19 Vaccine ( season) 2023 02/05/2022, 08/02/2021, 02/28/2021, Additional history exists Influenza Vaccine (FLU shot) (#1) 2023 04/19/2023, 01/30/2022, 12/28/2020, Additional history exists Albumin/Creatinine Ratio 02/13/2024 023, 03/21/2022, 04/19/2021, Additional history exists HbA1c 04/26/2024 04/26/2023, 03/02, 04/19/2021, Additional history exists CKD PHOS USE SMARTSET 99781 06/26/202405/31, 04/19/2021, 11/27/2019, Additional history exists DXA Scan 07/18/2024 07/18/2022, 06/30, 12/22/2019, Additional history exists GFR 08/16/2024 02/17/2024, 08/0 08/2023, 06/27/2023, Additional history exists CKD HGB USE SMARTSET 46674 02/16/202502/16, 02/17/2024, 06/27/2023, Additional history exists TSH [...] D LEVEL ONCE IN A LIFETIME-USE SMARTSET# 40713 Completed 06/27/2023, 11/06/2021, 12/28/2019, Additional history exists [...] this encounter Medical Devices Implanted Type Area Ring Stamper Device Identifier Shelf Expiration Date Model / Serial / Lot Lens Intraoc 21.5 - [id number] - [id number] Implanted:Qty: 1 on 05/12/2019 by Yury Brady MD at [facility] Right: Eye [employer] 12/30/2023 [id number] / [id number] / [id number] Lens Intraoc 22.5 - [id number] - [id number] Implanted:Qty: 1 on 04/05/2020 by Yury Brady MD at OR [facility] Left: Eye [employer]OMB 09/28/2024 [id number] / [id number] / [id number] documented as of this encounter Additional Health Concerns Infection Onset Date Last Indicated Resolved Time RSV 06/05/2024 06/05/2024 documented as of this encounter Advance Directives Documents on File Type Date Recorded Patient Paper Twister Expl anation Advance Directives and Living Will 03/11/2018 Krissy Butch Suarezer ADVANCE DIR ECTIVE * Full Code (Latest [...] Agen t (per Health Care Power of Sweet Dough Mixer document) Guille Urban Adult Child Health Care Agen t (per Health Care Power of Sweet Dough Mixer document) [email or web address] om Care Teams Meat Lugger Relationship Specialty Start Date End Date Rafa Bergman MD [address] [place] [address] [place] [phone] PCP - General Family Medicine 04/19/21 documented as of this encounter
--- OUTSIDE RECORDS SUMMARY | 2024-07-24 00:08 | External Medical Summary | Summary of Care ---
Author Name Unknown Organization [facility] Address [address] [facility] [place] [address] Phone [phone] Care Team Providers Care Levers Lace Machine Operator Name Role Phone Rafa Bergman MD Primary Care Provide r Encounter Details Date Type Department Care Team (Late st Contact Info) Description 06/06/2024 1:15 PM EST [facility] [place] [address] [facility], Nurse [facility] 132 [place] [address] Allergies Active Allergy Reactions Criticality Noted Date [...] goal LDL below 70,Coronary artery disease involving sycuan coronary artery of sycuan heart without angina pectoris TAKE ONE TABLET BY MOUTH IN THE MORNING 90 Tablet 3 05/25/2024 7:44 AM EST 4 Active Propranolol HCl 10 MG Oral Tablet (Inderal)Indicat ions:Sinus tachycardia,Tach y-chintan syndrome (HCC),Coronary artery disease involving sycuan coronary artery of sycuan heart without angina pectoris,Presenc e of cardiac [...] of sycuan heart without angina pectoris 07/08/2018 Overview (11/21/2023): history of NSTEMI status post AMIE to LAD (culprit) and RCA, 04/28/2018 Assessment & Plan (01/24/2024 4:40 PM EDT): Cardiac rehab at [facility] 2x week Assessment & Plan (11/21/2023 5:32 [...] 09/13/2022 11/08/2023 Atherosclerosis of coronary artery of sycuan heart without angina pectoris 09/10/2022 10/31/2022 Hypothyroidism [...] filter 02/28/2015 Atherosclerotic heart diseas e of sycuan coronary artery with angina pectoris 11/2018 CKD [...] 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 Started medrol dose pack, Levaquin every other day. IV lasix 80mg given 06/05/24 PCR swab +RSV 06/05/24 Today notes improvement in the past 24 A lot less coughing-sputum , not as fatigue No fever since Thursday Last night able to lay down and sleep -breathing felt better Winded with exertion-improved in the past 24 hours BP 120/70 | Pulse 95 | Temp 36.8 °C (98.2 °F) (Infrared ) | Resp 20 | SpO2 96% Lungs diminished L/base, clear otherwise Reviewed with Orders for IV Lasix 80 [...] closed this contact: Lab/radiology testing coordinated (06/06/24 1203) Type of education: Clinical/disease (06/06/24 112) Procedure performed: IV medication (06/06/24 112) documented in this encounter Plan of Treatment Upcoming Encounters Date Type Department Care Team (Late st Contact Info) Description 06/07/2024 10:45 AM EDT [facility] [address] [facility], Nurse [facility] [address] [place] [address] 06/12/2024 3:00 PM EDT [facility], [facility] [address] [place] [address] Olinda Briggs RN [address] [place] [address] 06/22/2024 11:00 AM EDT Home Visit [facility], [facility] [address] [place] [address] Leon Live PA-C [address] [place] [address] 06/22/2024 2:30 PM EDT Office Visit Urogynecology [facility] [address] [place] [address] Quincy Garcia MD [address] [place] [address] 06/25/2024 9:00 AM EDT Office Visit Family Medicine [address] [place] [address] Rafa Bergman MD [address] [place] [address] [place] [address] 06/26/2024 11:30 AM EDT Office Visit Ophthalmology, [facility] [address] [place] [address] Pedro Tinsley DO [address] [place] [address] 07/06/2024 8:40 AM EDT Office Visit Neurology [facility] [address] [place] [address] Alfonso Manning MD [address] [place] [address] 07/06/2024 11:00 AM EDT [facility], [facility] [address] [facility] [place] [address] Leon Live PA-C [address] [place] [address] 07/14/2024 2:30 PM EDT Cardiac Studies Cardiology [address] [place] [address] [facility] [address] [facility] [place] [address] 07/21/2024 10:00 AM EDT Imaging Radiology [facility] [place] [phone] 08/18/2024 10:20 AM EDT Laboratory Laboratory [address] [place] [phone] [address] [place] [address] 08/21/2024 3:00 PM EDT Office Visit Rheumatology [address] [place] [address] José Miguel Cullen CRNP [address] [facility] [place] [address] 08/25/2024 3:30 PM EDT Office Visit Hematology/Oncology [facility] [address] [place] [address] Arianna Szymanski MD [address] [place] [address] 09/11/2024 12:50 PM EDT Office Visit Dermatology, [place] GarcesJesu [address] [place] [address] Dasha Nelson PA-C [address] [place] [address] 10/05/2024 1:30 PM EDT Office Visit Cardiology, [facility] [address] [place] [address] Charles Ortega DO 132 [place] [address] Health Maintenance Due Date Last Done Comments Adult Wellness Visit 02/06/2018 02/06/2017 Depression Screening 07/17/2022 07/17/2021 COVID-19 Vaccine ( season) 2023 02/05/2022, 08/02/2021, 02/28/2021, Additional history exists Influenza Vaccine (FLU shot) (#1) 2023 04/19/2023, 01/30/2022, 12/28/2020, Additional history exists Albumin/Creatinine Ratio 02/13/2024 023, 03/21/2022, 04/19/2021, Additional history exists HbA1c 04/26/2024 04/26/2023, 03/02, 04/19/2021, Additional history exists CKD PHOS USE SMARTSET 48031 06/26/2024 0310/2023, 04/19/2021, 11/27/2019, Additional history exists DXA Scan 07/18/2024 07/18/2022, 06/30, 12/22/2019, Additional history exists GFR 08/16/2024 02/17/2024, 08/0 08/2023, 06/27/2023, Additional history exists CKD HGB USE SMARTSET 60450 02/16/202502/16, 02/17/2024, 06/27/2023, Additional history exists TSH [...] D LEVEL ONCE IN A LIFETIME-USE SMARTSET# 08610 Completed 06/27/2023, 11/06/2021, 12/28/2019, Additional history exists [...] encounter Medical Devices Implanted Type Area Supervisor Dials Device Identifier Shelf Expiration Date Model / Serial / Lot Lens Intraoc 21.5 - [id number] - [id number] Implanted:Qty: 1 on 05/12/2019 by Yury Brady MD at OR [facility] Right: Eye [employer] 12/30/2023 [id number] / [id number] / [id number] Lens Intraoc 22.5 - [id number] - [id number] Implanted:Qty: 1 on 04/05/2020 by Yury Brady MD at OR [facility] Left: Eye [employer]OMB 09/28/2024 [id number] / [id number] / [id number] documented as of this encounter Administered Medications [...] Documents on File Type Date Recorded 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
--- OUTSIDE RECORDS SUMMARY | 2024-07-24 00:08 | External Medical Summary ---
Author Name Unknown Address Unknown Organization K1F:LABORATORY [facility] - [address] [address] Laboratory Report Ordering Provider Test Date Status NIKKO LOVE 06/07/2024 14:30:02 Final Exclude Heart Failure: <300 pg/mL
Diagnose Heart Failure:
Age <50 yr: >450 pg/mL
50-75 yr: >900 pg/mL
>75 yr: >1800 pg/mL
GFR is 30-59 mL/min: >1200 pg/mL or Age- adjusted values
GFR <30 mL/min: do not use, not reliable

Prognostic threshold: 1000 pg/mL Observation Date Value Abnormality Reference (Units ) Status BNP, Pro-hormone 06/07/2024 14:30:02 169 <30 0 (pg/mL) Final Performing Location [facility] - [address] [address]
--- OUTSIDE RECORDS SUMMARY | 2024-07-24 00:09 | External Medical Summary | Summary of Care ---
Author Name Unknown Organization [facility] Address [address] [place] [address] Phone [phone] Care Team Providers Care Decal Transferrer Name Role Phone Rafa Bergman MD Primary Care Provide r Encounter Details Date Type Department Care Team (Late st Contact Info) Description 06/06/2024 Telephone Family Practice [address] [place] [address] [address] [place] [address] Garrett Perez MD [address] [place] [address] Allergies Active Allergy Reactions Criticality Noted Date [...] goal LDL below 70,Coronary artery disease involving muckleshoot coronary artery of muckleshoot heart without angina pectoris TAKE ONE TABLET BY MOUTH IN THE MORNING 90 Tablet 3 05/25/2024 7:44 AM EST 4 Active Propranolol HCl 10 MG Oral Tablet (Inderal)Indicat ions:Sinus tachycardia,Tach y-chintan syndrome (HCC),Coronary artery disease involving muckleshoot coronary artery of muckleshoot heart without angina pectoris,Presenc e of cardiac [...] on left 80 mg IV PUSH ONCE 06/06/2024 06/06/2024 Active documented as of this encounter (statuses [...] S/P angioplasty with stent 11/27/2018 Atherosclerosis of muckleshoot co ronary artery of muckleshoot heart without angina pectoris 07/08/2018 Overview (11/21/2023): history of NSTEMI status post AMIE to LAD (culprit) and RCA, 04/28/2018 Assessment & Plan (01/24/2024 4:40 PM EDT): Cardiac rehab at [facility] 2x week Assessment & Plan [...] 09/13/2022 11/08/2023 Atherosclerosis of coronary artery of muckleshoot heart without angina pectoris 09/10/2022 10/31/2022 Hypothyroidism [...] filter 02/28/2015 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 F/up CXR tomorrow documented in this encounter Plan of Treatment Upcoming Encounters Date Type Department Care Team (Late st Contact Info) Description 06/06/2024 1:15 PM EST Home Visit [facility] at [address] [place] [address] [facility], Nurse [address] [place] [address] 06/12/2024 3:00 PM EDT [facility] Visit [facility] at [address] [place] [address] Olinda Briggs RN [address] [place] [address] 06/22/2024 11:00 AM EDT [facility] Visit [facility] [place], [facility] [address] [place] [address] Leon Live PA-C [address] [place] [address] 06/22/2024 2:30 PM EDT Office Visit Urogynecology [facility] [address] [place] [address] Quincy Garcia MD [address] [place] [address] 06/25/2024 9:00 AM EDT Office Visit Family Medicine [address] [place] [phone] Rafa Bergman MD [address] [place] [address] [place] [address] 06/26/2024 11:30 AM EDT Office Visit Ophthalmology, [facility] [address] [place] [address] Pedro Tinsley DO [address] [place] [address] 07/06/2024 8:40 AM EDT Office Visit Neurology [facility] [place] [address] Alfonso Manning MD [address] [facility] [place] [address] 07/06/2024 11:00 AM EDT [facility] Visit [facility], [facility] [address] [place] [address] Leon Live PA-C [address] [place] [address] 07/14/2024 2:30 PM EDT Cardiac Studies Cardiology [address] [place] [address] [employer] [facility] [address] [place] [address] 07/21/2024 10:00 AM EDT Imaging Radiology [facility] [address] [place] [phone] 08/18/2024 10:20 AM EDT Laboratory Laboratory [address] [place] [phone] [address] [place] [address] 08/21/2024 3:00 PM EDT Office Visit Rheumatology [address] [place] [phone] José Miguel Cullen CRNP [address] [place] [address] [place] [address] 08/25/2024 3:30 PM EDT Office Visit Hematology/Oncology [facility] [address] [place] [phone] Arianna Szymanski MD [address] [place] [address] 09/11/2024 12:50 PM EDT Office Visit Dermatology, [facility] [address] [place] [phone] Dasha Nelson PA-C [address] [place] [address] 10/05/2024 1:30 PM EDT Office Visit Cardiology, [facility] [address] [place] [address] Charles Ortega DO [address] [place] [address] Scheduled Orders Name Type Priority Associated Diagnoses Orde r Schedule XR CHEST 2 VIEWS Medical Imaging STAT Pleural effusion on left Ordered: 06/06/2024 Health Maintenance Due Date Last Done Comments Adult Wellness Visit 02/06/2018 02/06/2017 Depression Screening 07/17/2022 07/17/2021 COVID-19 Vaccine ( season) 2023 02/05/2022, 08/02/2021, 02/28/2021, Additional history exists Influenza Vaccine (FLU shot) (#1) 2023 04/19/2023, 01/30/2022, 12/28/2020, Additional history exists Albumin/Creatinine Ratio 02/13/2024 023, 03/21/2022, 04/19/2021, Additional history exists HbA1c 04/26/2024 04/26/2023, 03/02, 04/19/2021, Additional history exists CKD PHOS USE SMARTSET 71642 06/26/202405/31, 04/19/2021, 11/27/2019, Additional history exists DXA Scan 07/18/2024 07/18/2022, 06/30, 12/22/2019, Additional history exists GFR 08/16/2024 02/17/2024, 08/08/2023, 06/27/2023, Additional history exists CKD HGB USE SMARTSET 86031 02/16/202502/16, 02/17/2024, 06/27/2023, Additional history exists TSH [...] D LEVEL ONCE IN A LIFETIME-USE SMARTSET# 67612 Completed 06/27/2023, 11/06/2021, 12/28/2019, Additional history exists [...] this encounter Medical Devices Implanted Type Area Hotel Administrative Assistant Device Identifier Shelf Expiration Date Model / Serial / Lot Lens Intraoc 21.5 - [id number] - [id number] Implanted:Qty: 1 on 05/12/2019 by Yury Brady MD at OR [facility] Right: Eye [employer] 12/30/2023 [id number] / [id number] / [id number] Lens Intraoc 22.5 - [id number] - [id number] Implanted:Qty: 1 on 04/05/2020 by Yury Brady MD at OR [facility] Left: Eye [employer]OM[employer] 09/28/2024 [id number] / [id number] / [id number] documented as of this encounter Visit Diagnoses Diagnosis Hypertensive kidney disease with stage 3a chronic kidney disease- Primary Atherosclerosis of muckleshoot coronary artery of muckleshoot heart without angina pectoris Dyslipidemia, goal LDL below 70 Other and unspecified hyperlipidemia History of pulmonary embolism Personal history of pulmonary embolism Tachy-chintan syndrome (HCC) Sinoatrial node dysfunction S/P placement of cardiac pacemaker Cardiac pacemaker in situ Arthralgia of right hip Gastro-esophageal reflux disease with esophagitis, without bleeding Sinus tachycardia Other specified cardiac dysrhythmias Coronary artery disease involving muckleshoot coronary artery of muckleshoot heart without angina pectoris Presence of cardiac pacemaker Cardiac pacemaker in situ Palpitations HTN, goal below 140/90 Unspecified essential hypertension Hypertensive kidney disease with stage 3a chronic kidney disease- Primary Dyslipidemia, goal LDL below 70 Other and unspecified hyperlipidemia Gastro-esophageal reflux disease with esophagitis, without bleeding Atherosclerosis of muckleshoot coronary artery of muckleshoot heart without angina pectoris Advanced care planning/counseling discussion- Primary Other specified counseling Hypertensive kidney disease with stage 3a chronic kidney disease (HCC) History of [place] (myocardial infarction) Old myocardial infarction Tachy-chintan syndrome [...] Documents on File Type Date Recorded 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
--- OUTSIDE RECORDS SUMMARY | 2024-07-24 00:09 | External Medical Summary | Summary of Care ---
Author Name Unknown Organization [facility] Address [address] [facility] [place] [address] Phone [phone] Care Team Providers Care Endodontics Dentist Name Role Phone Rafa Bergman MD Primary Care Provide r Encounter Details Date Type Department Care Team (Late st Contact Info) Description 06/05/2024 8:00 AM EST [facility] [place] [address] Olinda Briggs, CHRISTINA [address] [place] [address] SOSA (dyspnea on exertion) Allergies Active Allergy Reactions Criticality Noted Date [...] 6 mg IZ PRN 03/18/2024 03/18/2025 Active potassium chloride ER tab 10 mEqIndications:Pleural effusion [...] 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 History of [place] (myocardial infarction) 11/27/2022 Assessment & Plan (04/16/2024 [...] 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 file 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 Not on file Not on file documented as of this encounter Last Filed Vital Signs Vital Sign Reading Time Taken Comments Blood Pressure 138/60 06/05/2024 6:37 PM EST Pulse 92 06/05/2024 6:37 PM EST Temperature 36.8 °C (98.2 °F) 06/05/2024 6:37 PM ES T Respiratory Rate 18 06/05/2024 6:37 PM EST Oxygen Saturation 94% 06/05/2024 6:37 PM EST Inhaled Oxygen Concentration - - Weight - - Height - - Body Mass Index - - documented in this encounter Progress Notes * Olinda Briggs RN - 06/05/2024 8:41 AM EST Current Concerns: Patient seen for acute visit- Chest xray last evening- moderate left pleural effusion. Started medrol dose pack, Levaquin every other day. PCR obtained Orders received [facility]- IV lasix 80mg given IV left antecubital- tolerated well- pressure dressing applied. Overall feeling poorly VS wnl Lungs diminished bases Persistent cough Sob with exertion Nonpitting edema BLE Voiding without difficulty Appetite fair Taking fluids well. Follow up CHRISTINA EAGLE tomorrow to reassess. To be scheduled for thoracentesis next week at [place]. Physical Exam: Physical Exam Constitutional: Appearance: Normal appearance. Cardiovascular: Rate and Rhythm: Normal rate and regular rhythm. Pulses: Normal pulses. Pulmonary: Effort: Pulmonary effort is normal. Abdominal: General: Bowel sounds are normal. Palpations: Abdomen is soft. Musculoskeletal: General: Normal range of motion. Right lower leg: Edema present. Left lower [...] of Systems Constitutional: Negative. Respiratory: Positive for cough and shortness of breath. Cardiovascular: Positive for leg swelling. Gastrointestinal: Negative. Genitourinary: Negative. Musculoskeletal: Negative. Skin: Negative. Neurological: Positive for weakness. Psychiatric/Behavioral: Negative. Care Plan Goal Progress: Orders Placed: No orders of the defined types were placed in this encounter. Medications Given: Administrations This Visit Furosemide (Lasix) inj 80 mg Admin Date 06/05/2024 Action Given Dose 80 mg Route IV Push Documented By Olinda Briggs RN Care Gaps: Care Gaps Care gaps closed this contact: Education;Lab/radiology testing coordinated;Home based procedures (06/05/241814) Type of education: Clinical/disease (06/05/241814) Procedure performed: IV medication (06/05/241814) documented in this encounter Plan of Treatment Upcoming Encounters Date Type Department Care Team (Late st Contact Info) Description 06/06/2024 1:15 PM EST Home Visit Jone at [address] [place] [address] [facility], Nurse [place] [address] [place] [address] 06/12/2024 3:00 PM EDT [facility] Visit [facility], [facility] [address] [place] [address] Olinda Briggs RN [address] [place] [address] 06/22/2024 11:00 AM EDT [facility] Visit [facility], [facility] [address] [place] [address] Leon Live PA-C [address] [place] [address] 06/22/2024 2:30 PM EDT Office Visit Urogynecology [facility] [address] [place] [address] Quincy Garcia MD [address] [place] [address] 06/25/2024 9:00 AM EDT Office Visit Family Medicine [address] [place] [phone] Rafa Bergman MD [address] [place] [address] [place] [address] 06/26/2024 11:30 AM EDT Office Visit Ophthalmology, [facility] [address] [place] [address] Pedro Tinsley DO [address] [place] [address] 07/06/2024 8:40 AM EDT Office Visit Neurology [facility] [address] [place] [place] [address] Alfonso Manning MD [address] [place], [place] [address] 07/06/2024 11:00 AM EDT [facility] Visit [facility], [facility] [address] [place] [address] Leon Live PA-C [address] [place] [address] 07/14/2024 2:30 PM EDT Cardiac Studies Cardiology [address] [place] [address] [facility] [address] [place] [address] 07/21/2024 10:00 AM EDT Imaging Radiology [facility] [address] [place] [phone] 08/18/2024 10:20 AM EDT Laboratory Laboratory [address] [place] [phone] [address] [place] [address] 08/21/2024 3:00 PM EDT Office Visit Rheumatology [address] [place] [phone] José Miguel Cullen CRNP [address] [place] [address] [place] [address] 08/25/2024 3:30 PM EDT Office Visit Hematology/Oncology [facility] [place] [address] [place] [phone] Arianna Szymanski MD [address] [place] [address] 09/11/2024 12:50 PM EDT Office Visit Dermatology, [address] [place] [address] Dasha Nelson PA-C [address] [place] [address] 10/05/2024 1:30 PM EDT Office Visit Cardiology, [facility] [address] [place] [address] Charles Ortega DO [address] [place] [address] Health Maintenance Due Date Last Done Comments Adult Wellness Visit 02/06/2018 02/06/2017 Depression Screening 07/17/2022 07/17/2021 COVID-19 Vaccine ( season) 2023 02/05/2022, 08/02/2021, 02/28/2021, Additional history exists Influenza Vaccine (FLU shot) (#1) 2023 04/19/2023, 01/30/2022, 12/28/2020, Additional history exists Albumin/Creatinine Ratio 02/13/2024 023, 03/21/2022, 04/19/2021, Additional history exists HbA1c 04/26/2024 04/26/2023, 03/02, 04/19/2021, Additional history exists CKD PHOS USE SMARTSET 21509 06/26/202405/31, 04/19/2021, 11/27/2019, Additional history exists DXA Scan 07/18/2024 07/18/2022, 06/30, 12/22/2019, Additional history exists GFR 08/16/2024 02/17/2024, 08/0 08/2023, 06/27/2023, Additional history exists CKD HGB USE SMARTSET 63410 02/16/202502/16, 02/17/2024, 06/27/2023, Additional history exists TSH [...] D LEVEL ONCE IN A LIFETIME-USE SMARTSET# 16261 Completed 06/27/2023, 11/06/2021, 12/28/2019, Additional history exists [...] encounter Medical Devices Implanted Type Area Director [employer] Device Identifier Shelf Expiration Date Model / Serial / Lot Lens Intraoc 21.5 - [id number] - [id number] Implanted:Qty: 1 on 05/12/2019 by Yury Brady MD at OR [facility] Right: Eye [employer] 12/30/2023 [id number] / [id number] / [id number] Lens Intraoc 22.5 - [id number] - [id number] Implanted:Qty: 1 on 04/05/2020 by Yury Brady MD at OR [facility] Left: Eye [employer] 09/28/2024 [id number] / [id number] / [id number] documented as of this encounter Procedures Procedure Name Priority Date/Time Associated Diagnosis Comments RESPIRATORY PATHOGEN PANEL, PCR Routine 06/05/2024 9:38 AM EST SOSA (dyspnea on exertion) documented in this encounter Results * (ABNORMAL) RESPIRATORY PATHOGEN PANEL, PCR (06/05/2024 9:38 AM EST) [facility] Adenovirus by PCR Negative Negative 025 11:[address] [facility] Coronavirus 229E by PCR Negative Negative 06/05/2024 11:[address] [facility] Coronavirus HKU1 by PCR Negative Negative 06/05/2024 11:[address] [facility] Coronavirus NL63 by PCR Negative Negative 06/05/2024 11:[address] [facility] Coronavirus OC43 by PCR Negative Negative 06/05/2024 11:[address] [facility] Coronavirus SARS-CoV-2 by PCR Negative Negative 06/05/2024 11:[address] [facility] Human Metapneumovirus by PCR Negative Negative 06/05/2024 11:[address] [facility] Rhinovirus/Enterov irus by PCR Negative Negative 06/05/2024 11:[address] [facility] Influenza A Virus by PCR Negative Negative 06/05/2024 11:[address] [facility] Influenza B Virus by PCR Negative Negative 06/05/2024 11:[address] [facility] Parainfluenza Virus 1 by PCR Negative Negative 06/05/2024 11:[address] [facility] Parainfluenza Virus 2 by PCR Negative Negative 06/05/2024 11:[address] [facility] Parainfluenza Virus 3 by PCR Negative Negative 06/05/2024 11:[address] [facility] Parainfluenza Virus 4 by PCR Negative Negative 06/05/2024 11:[address] [facility] Respiratory Syncytial Virus by PCR Positive(A) Negative 06/05/2024 11:[address] [facility] Comment:Respiratory Syncytia l virus detected by PCR (amplified probe). Test results reported to [facility]. Bordetella pertussis by PCR Negative Negative 06/05/2024 11:[address] [facility] Chlamydia pneumoniae by PCR Negative Negative 06/05/2024 11:[address] [facility] Mycoplasma pneumoniae by PCR Negative Negative 06/05/2024 11:[address] [facility] Bordetella parapertussis by PCR Negative Negative 06/05/2024 11:[address] [facility] Comment: The primers that detect Rhinovirus may cross react with some Enterorviruses. The validation of bronchial specimens, tracheal aspirates, and throats for this assay was developed and performance characteristics determined by [email or web address]. The validation of alternate specimen types has not been cleared or approved by the U.S. Food and Drug Administration (FDA). It has been determined that such clearance or approval is not necessary. Upper Respiratory Mid-turbinate nasal swab / Unknown Non-blood Collection / Unknown 06/05/2024 9:38 AM EST 06/05/2024 9:42 AM EST Justin Cronin MD LAB MICRO - GENERAL ORDERABLES F inal Result LABORATORY [facility] [address] [place] [address] documented in this encounter Visit Diagnoses Diagnosis [...] 3a chronic kidney disease (HCC) History of [place] (myocardial infarction) Old myocardial infarction Tachy-chintan syndrome (HCC) Sinoatrial node dysfunction Dyslipidemia, goal LDL below 70 Other and unspecified hyperlipidemia Migraine without aura and without status migrainosus, not intractable Migraine without aura, without mention of intractable migraine without mention of status migrainosus Hypothyroidism (acquired) Unspecified hypothyroidism Senile osteoporosis 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 SSOA (dyspnea on exertion) Other dyspnea and respiratory abnormality documented in this encounter Administered Medications Inactive Administered Medications - up to 3 most recent administrations Medication Order MAR Action Action Date Dose Rate Site Furosemide (Lasix) inj 80 mg 80 mg, IV Push, ONCE, On Sat06/05/24 at 1000, For 1 doseIndications:Pleural effusion on left Given 06/05/2024 6:22 PM EST 80 mg Antecubital Left documented in this encounter Advance Directives Documents on File Type Date Recorded Patient Medical Lab Technologist Expl anation Advance Directives and Living [...] t (per Health Care Power of Manager Stylist document) Guille Urban Adult Child Health Care Agen t (per Health Care Power of Manager Stylist document) [email or web address] om Care Teams Endodontics Dentist Relationship Specialty Start Date End Date Rafa Bergman MD [address] [place] [address] [place] [phone] PCP - General Family Medicine 04/19/21 documented as of this encounter
--- OUTSIDE RECORDS SUMMARY | 2024-07-24 00:09 | External Medical Summary | Summary of Care ---
Author Name Unknown Organization [facility] Address [address] [facility] [place] [address] Phone [phone] Care Team Providers Care Compo Caster Name Role Phone Rafa Bergman MD Primary Care Provide r Reason for Visit * Reason Onset Date Comments [facility]: Maintenance 06/05/2024 Encounter Details Date Type Department Care Team (Late st Contact Info) Description 06/05/2024 Telephone [facility], [facility] [address] [facility] [place] [phone] Paulina Romeo RN [address] [facility] [place] [phone] [facility]: Maintenance Allergies Active Allergy Reactions Criticality Noted Date Comments Colchicine Diarrhea 06/16/2018 Daptomycin 01/05/2015 Shortness of breath Imipenem Edema airway High 01/05/2015 Metoprolol Low 01/23/2021 Other reaction(s): fatigue Zoledronic Acid 04/24/2012 Myalgias, fever, chills, vomiting x 2 days Sulfa Antibiotics 12/22/2002 Bactrim--itchy all over, eyes swollen documented as of this encounter (statuses as of 06/05/2024) Medications ASPIRIN 81 MG PO TABS Take [...] goal LDL below 70,Coronary artery disease involving levelock coronary artery of levelock heart without angina pectoris TAKE ONE TABLET BY MOUTH IN THE MORNING 90 Tablet 3 05/25/2024 7:44 AM EST 4 Active Propranolol HCl 10 MG Oral Tablet (Inderal)Indicat ions:Sinus tachycardia,Tach y-chintan syndrome (HCC),Coronary artery disease involving levelock coronary artery of levelock heart without angina pectoris,Presenc e of cardiac [...] as of this encounter (statuses as of 06/05/2024) Active Problems Problem Noted Date Diagnosed Date [...] S/P angioplasty with stent 11/27/2018 Atherosclerosis of levelock co ronary artery of levelock heart without angina pectoris 07/08/2018 Overview (11/21/2023): history of NSTEMI status post AMIE to LAD (culprit) and RCA, 04/28/2018 Assessment & Plan (01/24/2024 4:40 PM EDT): Cardiac rehab at [facility] 2x week Assessment & Plan [...] as of this encounter (statuses as of 06/05/2024) Resolved Problems Problem Noted Date Diagnosed Date Resolved Date Purulent endophthalmitis of right eye 01/03/2023 11/08/2023 Other pulmonary embolism wit h acute cor pulmonale 10/01/2022 04/26/2023 Overview (04/26/2023): history Medical home patient encounter 09/13/2022 11/08/2023 Atherosclerosis of coronary artery of levelock heart without angina pectoris 09/10/2022 10/31/2022 Hypothyroidism [...] filter 02/28/2015 Atherosclerotic heart diseas e of levelock coronary artery with angina pectoris 11/2018 CKD (chronic kidney disease) stage 2, GFR 60-89 ml/min 03/12/2019 documented as of this encounter (statuses as of 06/05/2024) Immunizations Name Administration Dates Next Due COVID-19 [...] No 02/06/2024 Does the household have a [facility] source of income? 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 [facility] department hours end at 4:30 pm. Updated [facility]. Will work on first thing Saturday am. * Telephone Encounter - Angela Kohli CRNP - 06/05/2024 3:52 PM EST Discussed with RNCM. Patient is agreeable to thoracentesis of the left lung for a modest left pleural effusion. The closest hospital would be [place]. Can you help with coordinating and let me knowwhat orders I need to place? This can be done early next week. Thank you, LEYDA Gudino [facility], [facility] [address] [facility] [place] [phone] * Telephone Encounter - Paulina Romeo RN - 06/05/2024 10:47 AM EST Call received from [employer]. Calling to make [facility] aware of + CXR results. Chart reviewed. Noted CXR received via fax and provider reviewed and ordered abx. FC call scheduled for tomorrow. documented in this encounter Plan of Treatment Upcoming Encounters Date Type Department Care Team (Late st Contact Info) Description 06/06/2024 1:15 PM EST [facility] [address] [place] [address] [facility], Nurse [address] [place] [address] 06/12/2024 3:00 PM EDT Home Visit [facility] at [facility] [address] [place] [address] Olinda Briggs, CHRISTINA [address] [place] [address] 06/22/2024 11:00 AM EDT [facility] Visit [facility], [facility] [address] [place] [address] Leon Live PA-C [address] [place] [address] 06/22/2024 2:30 PM EDT Office Visit Urogynecology [facility] [address] [place] [address] Quincy Garcia MD [address] [place] [address] 06/25/2024 9:00 AM EDT Office Visit Family Medicine [address] [phone] Rafa Bergman MD [address] [place] [address] [place] [address] 06/26/2024 11:30 AM EDT Office Visit Ophthalmology, [facility] [address] [place] [address] Pedro Tinsley DO [address] [place] [address] 07/06/2024 8:40 AM EDT Office Visit Neurology [facility] [address] [place] [address] Alfonso Manning MD [address] [place] [address] 07/06/2024 11:00 AM EDT [facility] Visit [facility], [facility] [address] [place] [address] Leon Live PA-C [address] [place] [address] 07/14/2024 2:30 PM EDT Cardiac Studies Cardiology [address] [place] [address] Cadence Horne [facility] [address] [place] [address] 07/21/2024 10:00 AM EDT Imaging Radiology [facility] [address] [place] [phone] 08/18/2024 10:20 AM EDT Laboratory Laboratory [address] [place] [phone] [place] [address] 08/21/2024 3:00 PM EDT Office Visit Rheumatology [address] [place] [phone] José Miguel Cullen CRNP [address] [place] [address] [place] [address] 08/25/2024 3:30 PM EDT Office Visit Hematology/Oncology [facility] [address] [place] [phone] Arianna Szymanski MD [address] [place] [address] 09/11/2024 12:50 PM EDT Office Visit Dermatology, Jesu Wilson [address] [place] [address] Dasha Nelson PADelaneyC 27 [place] [phone] 10/05/2024 1:30 PM EDT Office Visit Cardiology, [facility] [address] [place] [address] Charles Ortega O, DO [address] [place] [address] Health Maintenance Due Date Last Done Comments Adult Wellness Visit 02/06/2018 02/06/2017 Depression Screening 07/17/2022 07/17/2021 COVID-19 Vaccine ( season) 2023 02/05/2022, 08/02/2021, 02/28/2021, Additional history exists Influenza Vaccine (FLU shot) (#1) 2023 04/19/2023, 01/30/2022, 12/28/2020, Additional history exists Albumin/Creatinine Ratio 02/13/2024 023, 03/21/2022, 04/19/2021, Additional history exists HbA1c 04/26/2024 04/26/2023, 03/02, 04/19/2021, Additional history exists CKD PHOS USE SMARTSET 39882 06/26/202405/31, 04/19/2021, 11/27/2019, Additional history exists DXA Scan 07/18/2024 07/18/2022, 06/30, 12/22/2019, Additional history exists GFR 08/16/2024 02/17/2024, 080 08/2023, 06/27/2023, Additional history exists CKD HGB USE SMARTSET 71151 02/16/202502/16, 02/17/2024, 06/27/2023, Additional history exists TSH 04/24/2025 04/24/2024, 010 10/2024, 11/15/2023, Additional history exists DTap/Tdap Vaccines (3 - Td or Tdap) 09/30/2033 10/01/2023, 11/03/2007 Hepatitis B Vaccine Completed 03/18/2009, 06/14/2008, 05/12/2008 Pneumococcal Vaccine: 50+ Years Completed 03/28/2015, 03/20/2010, 11/15/2004 RETIRED - COLONOSCOPY-EVERY 5 YRS AGES 18-100 Discontinued 02/27/2017, 02/27/2017, 10/17/2004 Zoster Vaccines Completed 06/12/2021, 02/01, 11/04/2012 VITAMIN D LEVEL ONCE IN A LIFETIME-USE SMARTSET# [id number] Completed 06/27/2023, 11/06/2021, 12/28/2019, Additional history exists [...] this encounter Medical Devices Implanted Type Area Resort Manager Device Identifier Shelf Expiration Date Model / Serial / Lot Lens Intraoc 21.5 - [id number] - [id number] Implanted:Qty: 1 on 05/12/2019 by Yury Brady MD at OR [facility] Right: Eye [employer] 12/30/2023 [id number] / [id number] / [id number] Lens Intraoc 22.5 - [id number] - [id number] Implanted:Qty: 1 on 04/05/2020 by Yury Brady MD at OR [facility] Left: Eye [employer]OM[employer] 09/28/2024 [id number] / [id number] / [id number] documented as of this encounter Visit Diagnoses Diagnosis Hypertensive kidney disease with stage 3a chronic kidney disease- Primary Atherosclerosis of levelock coronary artery of levelock heart without angina pectoris Dyslipidemia, goal LDL below 70 Other and unspecified hyperlipidemia History of pulmonary embolism Personal history of pulmonary embolism Tachy-chintan syndrome (HCC) Sinoatrial node dysfunction S/P placement of cardiac pacemaker Cardiac pacemaker in situ Arthralgia of right hip Gastro-esophageal reflux disease with esophagitis, without bleeding Sinus tachycardia Other specified cardiac dysrhythmias Coronary artery disease involving levelock coronary artery of levelock heart without angina pectoris Presence of cardiac pacemaker Cardiac pacemaker in situ Palpitations HTN, goal below 140/90 Unspecified essential hypertension Hypertensive kidney disease with stage 3a chronic kidney disease- Primary Dyslipidemia, goal LDL below 70 Other and unspecified hyperlipidemia Gastro-esophageal reflux disease with esophagitis, without bleeding Atherosclerosis of levelock coronary artery of levelock heart without angina pectoris Advanced care planning/counseling discussion- Primary Other specified counseling Hypertensive kidney disease with stage 3a chronic kidney disease (HCC) History of AR (myocardial infarction) Old myocardial infarction Tachy-chintan syndrome [...] Indicated Resolved Time Respiratory Rule-Out 06/05/2024 06/05/2024 documented as of this encounter Advance Directives Documents on File Type Date Recorded Patient Materials Inspector Expl anation Advance Directives and Living Will [...] Agen t (per Health Care Power of Net Mvc Developer document) Guille Urban Adult Child Health Care Agen t (per Health Care Power of Net Mvc Developer document) [email or web address] om Care Teams Compo Caster Relationship Specialty Start Date End Date Rafa Bergman MD [address] [place] [address] [place] [address] PCP - General Family Medicine 04/19/21 documented as of this encounter
--- OUTSIDE RECORDS SUMMARY | 2024-07-24 00:09 | External Medical Summary | Summary of Care ---
Author Name Unknown Organization [facility] Address [address] [place] [address] Phone [phone] Care Team Providers Care Mill Set Up Name Role Phone Rafa Bergman MD Primary Care Provide r Reason for Visit * Reason Onset Date Comments [facility]: Maintenance 06/05/2024 Encounter Details Date Type Department Care Team (Late st Contact Info) Description 06/05/2024 Telephone [facility], [facility] [address] [facility] [place] [phone] Paulina Romeo RN [address] [facility] [place] [phone] [facility]: Maintenance Allergies Active Allergy [...] goal LDL below 70,Coronary artery disease involving la posta coronary artery of la posta heart without angina pectoris TAKE ONE TABLET BY MOUTH IN THE MORNING 90 Tablet 3 05/25/2024 7:44 AM EST 4 Active Propranolol HCl 10 MG Oral Tablet (Inderal)Indicat ions:Sinus tachycardia,Tach y-chintan syndrome (HCC),Coronary artery disease involving la posta coronary artery of la posta heart without angina pectoris,Presenc e of cardiac [...] S/P angioplasty with stent 11/27/2018 Atherosclerosis of la posta co ronary artery of la posta heart without angina pectoris 07/08/2018 Overview (11/21/2023): history of NSTEMI status post AMIE to LAD (culprit) and RCA, 04/28/2018 Assessment & Plan (01/24/2024 4:40 PM EDT): Cardiac rehab at [facility] 2x week Assessment & Plan (11/21/2023 5:32 [...] 09/13/2022 11/08/2023 Atherosclerosis of coronary artery of la posta heart without angina pectoris 09/10/2022 10/31/2022 Hypothyroidism [...] filter 02/28/2015 Atherosclerotic heart diseas e of la posta coronary artery with angina pectoris 11/2018 CKD [...] 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 [facility] department hours end at 4:30 pm. Updated [facility]. Will work on first thing Saturday am. * Telephone Encounter - Angela Kohli CRNP - 06/05/2024 3:52 PM EST Discussed with RNCM. Patient is agreeable to thoracentesis of the left lung for a modest left pleural effusion. The closest hospital would be [place]. Can you help with coordinating and let me knowwhat orders I need to place? This can be done early next week. Thank you, LEYDA Gudino [facility], [facility] [address] [facility] [place] [phone] * Telephone Encounter - Paulina Romeo RN - 06/05/2024 10:47 AM EST Call received from [employer]. Calling to make [facility] aware of + CXR results. Chart reviewed. Noted CXR received via fax and provider reviewed and ordered abx. FC call scheduled for tomorrow. documented in this encounter Plan of Treatment Upcoming Encounters Date Type Department Care Team (Late st Contact Info) Description 06/06/2024 1:15 PM EST [facility] [address] [facility] [place] [address] [facility], Nurse [address] [place] [address] 06/12/2024 3:00 PM EDT Home Visit [facility] at [facility] [address] [place] [address] Olinda Briggs, CHRISTINA [address] [place] [address] 06/22/2024 11:00 AM EDT [facility], [facility] [address] [place] [address] Leon Live PA-C [address] [place] [address] 06/22/2024 2:30 PM EDT Office Visit Urogynecology [facility] [address] [place] [address] Quincy Garcia MD [address] [place] [address] 06/25/2024 9:00 AM EDT Office Visit Family Medicine [address] [phone] Rafa Bergman MD [address] [place] [address] [place] [address] 06/26/2024 11:30 AM EDT Office Visit Ophthalmology, [facility] [address] [place] [address] Pedro Tinsley DO [address] [place] [address] 07/06/2024 8:40 AM EDT Office Visit Neurology [facility] [address] [place] [address] Alfonso Manning MD [address] [place] [address] 07/06/2024 11:00 AM EDT [facility] Visit [facility], [facility] [address] [place] [address] Leon Live PA-C [address] [place] [address] 07/14/2024 2:30 PM EDT Cardiac Studies Cardiology [address] [place] [address] Cadence Horne [facility] [address] [place] [address] 07/21/2024 10:00 AM EDT Imaging Radiology [facility] [address] [place] [phone] 08/18/2024 10:20 AM EDT Laboratory Laboratory [address] [place] [phone] [place] [address] 08/21/2024 3:00 PM EDT Office Visit Rheumatology [address] [place] [phone] José Miguel Cullen CRNP [address] [place] [address] [place] [address] 08/25/2024 3:30 PM EDT Office Visit Hematology/Oncology [facility] [address] [place] [phone] Arianna Szymanski MD [address] [place] [address] 09/11/2024 12:50 PM EDT Office Visit Dermatology, Jesu Wilson [address] [place] [address] Dasha Nelson PADelaneyC 27 [place] [phone] 10/05/2024 1:30 PM EDT Office Visit Cardiology, [facility] [address] [place] [address] Charles Ortega O, DO [address] [place] [address] Health Maintenance Due Date Last Done Comments Adult Wellness Visit 02/06/2018 02/06/2017 Depression Screening 07/17/2022 07/17/2021 COVID-19 Vaccine ( season) 2023 02/05/2022, 08/02/2021, 02/28/2021, Additional history exists Influenza Vaccine (FLU shot) (#1) 2023 04/19/2023, 01/30/2022, 12/28/2020, Additional history exists Albumin/Creatinine Ratio 02/13/2024 023, 03/21/2022, 04/19/2021, Additional history exists HbA1c 04/26/2024 04/26/2023, 03/02, 04/19/2021, Additional history exists CKD PHOS USE SMARTSET 63275 06/26/202405/31, 04/19/2021, 11/27/2019, Additional history exists DXA Scan 07/18/2024 07/18/2022, 06/30, 12/22/2019, Additional history exists GFR 08/16/2024 02/17/2024, 080 08/2023, 06/27/2023, Additional history exists CKD HGB USE SMARTSET 74682 02/16/202502/16, 02/17/2024, 06/27/2023, Additional history exists TSH [...] D LEVEL ONCE IN A LIFETIME-USE SMARTSET# [id number] Completed 06/27/2023, 11/06/2021, 12/28/2019, Additional history exists [...] this encounter Medical Devices Implanted Type Area Conductor/Engineer Device Identifier Shelf Expiration Date Model / Serial / Lot Lens Intraoc 21.5 - [id number] - [id number] Implanted:Qty: 1 on 05/12/2019 by Yury Brady MD at OR [facility] Right: Eye [employer] 12/30/2023 [id number] / [id number] / [id number] Lens Intraoc 22.5 - [id number] - [id number] Implanted:Qty: 1 on 04/05/2020 by Yury Brady MD at OR [facility] Left: Eye [employer]OMB 09/28/2024 [id number] / [id number] / [id number] documented as of this encounter Visit Diagnoses Diagnosis Hypertensive kidney disease with stage 3a chronic kidney disease- Primary Atherosclerosis of la posta coronary artery of la posta heart without angina pectoris Dyslipidemia, goal LDL below 70 Other and unspecified hyperlipidemia History of pulmonary embolism Personal history of pulmonary embolism Tachy-chintan syndrome (HCC) Sinoatrial node dysfunction S/P placement of cardiac pacemaker Cardiac pacemaker in situ Arthralgia of right hip Gastro-esophageal reflux disease with esophagitis, without bleeding Sinus tachycardia Other specified cardiac dysrhythmias Coronary artery disease involving la posta coronary artery of la posta heart without angina pectoris Presence of cardiac pacemaker Cardiac pacemaker in situ Palpitations HTN, goal below 140/90 Unspecified essential hypertension Hypertensive kidney disease with stage 3a chronic kidney disease- Primary Dyslipidemia, goal LDL below 70 Other and unspecified hyperlipidemia Gastro-esophageal reflux disease with esophagitis, without bleeding Atherosclerosis of la posta coronary artery of la posta heart without angina pectoris Advanced care planning/counseling [...] Documents on File Type Date Recorded 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
--- OUTSIDE RECORDS SUMMARY | 2024-07-24 00:09 | External Medical Summary | Summary of Care ---
Author Name Unknown Organization [facility] Address [address] [place] [place] [address] Phone [phone] Care Team Providers Care Tap Builder Name Role Phone Rafa Bergman MD Primary Care Provide r Reason for Visit * Reason Onset Date Comments [facility]: Maintenance 06/05/2024 Encounter Details Date Type Department Care Team (Late st Contact Info) Description 06/05/2024 Telephone [facility], [facility] [address] [facility] [place] [phone] Paulina Romeo RN [address] [facility] [place] [phone] [facility]: Maintenance Allergies Active Allergy [...] goal LDL below 70,Coronary artery disease involving tulalip coronary artery of tulalip heart without angina pectoris TAKE ONE TABLET BY MOUTH IN THE MORNING 90 Tablet 3 05/25/2024 7:44 AM EST 4 Active Propranolol HCl 10 MG Oral Tablet (Inderal)Indicat ions:Sinus tachycardia,Tach y-chintan syndrome (HCC),Coronary artery disease involving tulalip coronary artery of tulalip heart without angina pectoris,Presenc e of cardiac [...] S/P angioplasty with stent 11/27/2018 Atherosclerosis of tulalip co ronary artery of tulalip heart without angina pectoris 07/08/2018 Overview (11/21/2023): history of NSTEMI status post AMIE to LAD (culprit) and RCA, 04/28/2018 Assessment & Plan (01/24/2024 4:40 PM EDT): Cardiac rehab at [facility] 2x week Assessment & Plan [...] 09/13/2022 11/08/2023 Atherosclerosis of coronary artery of tulalip heart without angina pectoris 09/10/2022 10/31/2022 Hypothyroidism [...] filter 02/28/2015 Atherosclerotic heart diseas e of tulalip coronary artery with angina pectoris 11/2018 CKD [...] No 02/06/2024 Does the household have a [facility] source of income? 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 [facility] department hours end at 4:30 pm. Updated [facility]. Will work on first thing Saturday am. * Telephone Encounter - Angela Kohli CRNP - 06/05/2024 3:52 PM EST Discussed with RNCM. Patient is agreeable to thoracentesis of the left lung for a modest left pleural effusion. The closest hospital would be [place]. Can you help with coordinating and let me knowwhat orders I need to place? This can be done early next week. Thank you, LEYDA Gudino [facility], [facility] [address] [facility] [place] [address] * Telephone Encounter - Paulina Romeo RN - 06/05/2024 10:47 AM EST Call received from [employer]. Calling to make [facility] aware of + CXR results. Chart reviewed. Noted CXR received via fax and provider reviewed and ordered abx. FC call scheduled for tomorrow. documented in this encounter Plan of Treatment Upcoming Encounters Date Type Department Care Team (Late st Contact Info) Description 06/06/2024 1:15 PM EST [facility] [address] [facility] [place] [address] [facility], Nurse [address] [place] [address] 06/12/2024 3:00 PM EDT Home Visit [facility] at [facility] [address] [place] [address] Olinda Briggs, CHRISTINA [address] [place] [address] 06/22/2024 11:00 AM EDT Home Visit [facility], [facility] [address] [place] [address] Leon Live PA-C [address] [place] [address] 06/22/2024 2:30 PM EDT Office Visit Urogynecology [facility] [address] [place] [address] Quincy Garcia MD [address] [place] [address] 06/25/2024 9:00 AM EDT Office Visit Family Medicine [address] [phone] Rafa Bergman MD [address] [place] [address] [place] [address] 06/26/2024 11:30 AM EDT Office Visit Ophthalmology, [facility] [address] [place] [address] Pedro Tinsley DO [address] [place] [address] 07/06/2024 8:40 AM EDT Office Visit Neurology [facility] [address] [place] [address] Alfonso Manning MD [address] [place] [address] 07/06/2024 11:00 AM EDT [facility] Visit [facility], [facility] [address] [place] [address] Leon Live PA-C [address] [place] [address] 07/14/2024 2:30 PM EDT Cardiac Studies Cardiology [address] [place] [address] Cad[facility] [address] [place] [address] 07/21/2024 10:00 AM EDT Imaging Radiology [facility] [address] [place] [phone] 08/18/2024 10:20 AM EDT Laboratory Laboratory [address] [place] [phone] [place] [address] 08/21/2024 3:00 PM EDT Office Visit Rheumatology [address] [place] [phone] José Miguel Cullen CRNP [address] [place] [address] [place] [address] 08/25/2024 3:30 PM EDT Office Visit Hematology/Oncology [facility] [address] [place] [phone] Arianna Szymanski MD [address] [place] [address] 09/11/2024 12:50 PM EDT Office Visit Dermatology, Jesu Wilson [address] [place] [address] Dasha Nelson PADelaneyC 27 [place] [phone] 10/05/2024 1:30 PM EDT Office Visit Cardiology, [facility] [address] [place] [address] Charles Ortega O, DO [address] [place] [address] Health Maintenance Due Date Last Done Comments Adult Wellness Visit 02/06/2018 02/06/2017 Depression Screening 07/17/2022 07/17/2021 COVID-19 Vaccine ( season) 2023 02/05/2022, 08/02/2021, 02/28/2021, Additional history exists Influenza Vaccine (FLU shot) (#1) 2023 04/19/2023, 01/30/2022, 12/28/2020, Additional history exists Albumin/Creatinine Ratio 02/13/2024 023, 03/21/2022, 04/19/2021, Additional history exists HbA1c 04/26/2024 04/26/2023, 03/02, 04/19/2021, Additional history exists CKD PHOS USE SMARTSET 34219 06/26/202405/31, 04/19/2021, 11/27/2019, Additional history exists DXA Scan 07/18/2024 07/18/2022, 06/30, 12/22/2019, Additional history exists GFR 08/16/2024 02/17/2024, 080 08/2023, 06/27/2023, Additional history exists CKD HGB USE SMARTSET 75909 02/16/202502/16, 02/17/2024, 06/27/2023, Additional history exists TSH [...] D LEVEL ONCE IN A LIFETIME-USE SMARTSET# 63893 Completed 06/27/2023, 11/06/2021, 12/28/2019, Additional history exists [...] encounter Medical Devices Implanted Type Area Cloth Tearer Device Identifier Shelf Expiration Date Model / Serial / Lot Lens Intraoc 21.5 - [id number] - [id number] Implanted:Qty: 1 on 05/12/2019 by Yury Brady MD at OR [facility] Right: Eye [employer] 12/30/2023 [id number] / [id number] / [id number] Lens Intraoc 22.5 - [id number] - [id number] Implanted:Qty: 1 on 04/05/2020 by Yury Brady MD at OR [facility] Left: Eye [employer] LOMB 09/28/2024 [id number] / [id number] / [id number] documented as of this encounter Visit Diagnoses Diagnosis Hypertensive kidney disease with stage 3a chronic kidney disease- Primary Atherosclerosis of tulalip coronary artery of tulalip heart without angina pectoris Dyslipidemia, goal LDL below 70 Other and unspecified hyperlipidemia History of pulmonary embolism Personal history of pulmonary embolism Tachy-chintan syndrome (HCC) Sinoatrial node dysfunction S/P placement of cardiac pacemaker Cardiac pacemaker in situ Arthralgia of right hip Gastro-esophageal reflux disease with esophagitis, without bleeding Sinus tachycardia Other specified cardiac dysrhythmias Coronary artery disease involving tulalip coronary artery of tulalip heart without angina pectoris Presence of cardiac pacemaker Cardiac pacemaker in situ Palpitations HTN, goal below 140/90 Unspecified essential hypertension Hypertensive kidney disease with stage 3a chronic kidney disease- Primary Dyslipidemia, goal LDL below 70 Other and unspecified hyperlipidemia Gastro-esophageal reflux disease with esophagitis, without bleeding Atherosclerosis of tulalip coronary artery of tulalip heart without angina pectoris Advanced care planning/counseling [...] Rule-Out 06/05/2024 06/05/2024 025 11:09 PM EST documented as of this encounter Advance Directives Documents on File Type 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
--- OUTSIDE RECORDS SUMMARY | 2024-07-24 00:10 | External Medical Summary ---
Author Name Unknown Address Unknown Organization K01:[facility] - [address] [facility] [place] [address] Laboratory Report Ordering Provider Test Date Status MICAELA WELLINGTON 06/05/2024 09:38:32 Final Observation Date Value Abnormality Reference (Units ) Status Adenovirus DNA [Presence] in Nasopharynx by VÍCTOR with non-probe detection 06/05/2024 09:38:32 Negative Negative Final Human coronavirus 229E RNA [Presence] in Nasopharynx by VÍCTOR with non-probe detection 06/05/2024 09:38:32 Negative Negative Final Human coronavirus HKU1 RNA [Presence] in Nasopharynx by VÍCTOR with non-probe detection 06/05/2024 09:38:32 Negative Negative Final Human coronavirus NL63 RNA [Presence] in Nasopharynx by VÍCTOR with non-probe detection 06/05/2024 09:38:32 Negative Negative Final Human coronavirus OC43 RNA [Presence] in Nasopharynx by VÍCTOR with non-probe detection 06/05/2024 09:38:32 Negative Negative Final SARS-CoV-2 (COVID-19) RNA [Presence] in Nasopharynx by VÍCTOR with non-probe detection 06/05/2024 09:38:32 Negative Negative Final Human metapneumovirus RNA [Presence] in Nasopharynx by VÍCTOR with non-probe detection 06/05/2024 09:38:32 Negative Negative Final Rhinovirus+Enterovirus RNA [Presence] in Nasopharynx by VÍCTOR with non-probe detection 06/05/2024 09:38:32 Negative Negative Final Influenza virus A RNA [Presence] in Nasopharynx by VÍCTOR with non-probe detection 06/05/2024 09:38:32 Negative Negative Final Influenza virus B RNA [Presence] in Nasopharynx by VÍCTOR with non-probe detection 06/05/2024 09:38:32 Negative Negative Final Parainfluenza virus 1 RNA [Presence] in Nasopharynx by VÍCTOR with non-probe detection 06/05/2024 09:38:32 Negative Negative Final Parainfluenza virus 2 RNA [Presence] in Nasopharynx by VÍCTOR with non-probe detection 06/05/2024 09:38:32 Negative Negative Final Parainfluenza virus 3 RNA [Presence] in Nasopharynx by VÍCTOR with non-probe detection 06/05/2024 09:38:32 Negative Negative Final Parainfluenza virus 4 RNA [Presence] in Nasopharynx by VÍCTOR with non-probe detection 06/05/2024 09:38:32 Negative Negative Final Respiratory syncytial virus RNA [Presence] in Nasopharynx by VÍCTOR with non-probe detection 06/05/2024 09:38:32 Positive Abnormal Negative Final Respiratory Syncytial virus detected by PCR (amplified probe). Test results reported to [facility]. Bordetella pertussis.pertuss is toxin promoter region [Presence] in Nasopharynx by VÍCTOR with non-probe detection 06/05/2024 09:38:32 Negative Negative Final Chlamydophila pneumoniae DNA [Presence] in Nasopharynx by VÍCTOR with non-probe detection 06/05/2024 09:38:32 Negative Negative Final Mycoplasma pneumoniae DNA [P resence] in Nasopharynx by VÍCTOR with non-probe detection 06/05/2024 09:38:32 Negative Negative Final Bordetella parapertussis IS1 001 DNA [Presence] in Nasopharynx by VÍCTOR with non-probe detection 06/05/2024 09:38:32 Negative Negative F inal The primers that detect Rhin ovirus may cross react with some Enterorviruses. The validation of bronchial specimens, tracheal aspirates, and throats for this assay was developed and performance characteristics determined by [employer]. �The validation of alternate specimen types has not been cleared or approved by the U.S. Food and Drug Administration (FDA). �It has been determined that such clearance or approval is not necessary. Performing Location [facility] - [facility] [address] [facility] [place]. [facility] [address]
--- OUTSIDE RECORDS SUMMARY | 2024-07-24 00:10 | External Medical Summary | Summary of Care ---
Author Name Unknown Organization [facility] Address [address] [place] [facility] [place] [address] Phone [phone] Care Team Providers Care Tie Tape Machine Operator Name Role Phone Rafa Bergman MD Primary Care Provide r Reason for Visit * Reason Onset Date Comments [facility]: Maintenance 06/05/2024 Encounter Details Date Type Department Care Team (Late st Contact Info) Description 06/05/2024 Telephone [facility], [facility] [address] [facility] [place] [phone] Paulina Romeo RN [address] [facility] [place] [phone] [facility]: Maintenance Allergies Active Allergy [...] goal LDL below 70,Coronary artery disease involving table mountain coronary artery of table [place] heart without angina pectoris TAKE ONE TABLET BY MOUTH IN THE MORNING 90 Tablet 3 05/25/2024 7:44 AM EST 4 Active Propranolol HCl 10 MG Oral Tablet (Inderal)Indicat ions:Sinus tachycardia,Tach y-chintan syndrome (HCC),Coronary artery disease involving table mountain coronary artery of table mountain heart without angina pectoris,Presenc e of [...] 80 mg IV PUSH ONCE 06/05/2024 06/05/2024 Active potassium chloride ER tab 10 mEqIndications:Pleural effusion on left 10 mEq OR ONCE 06/05/2024 06/05/2024 Active documented as of this encounter (statuses [...] S/P angioplasty with stent 11/27/2018 Atherosclerosis of table mountain co ronary artery of table mountain heart without angina pectoris 07/08/2018 Overview (11/21/2023): history of NSTEMI status post AMIE to LAD (culprit) and RCA, 04/28/2018 Assessment & Plan (01/24/2024 4:40 PM EDT): Cardiac rehab at 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 Calling to make [facility] aware of + CXR results. Chart reviewed. Noted CXR received via fax and provider reviewed and ordered abx. FC call scheduled for tomorrow. documented in this encounter Plan of Treatment Upcoming Encounters Date Type Department Care Team (Late st Contact Info) Description 06/12/2024 3:00 PM EDT [facility] Visit [facility], [facility] [address] [address] Olinda Briggs RN [address] [place] [address] 06/22/2024 11:00 AM EDT [facility] Visit [facility] [place], [facility] [address] [place] [address] Leon Live PA-C [address] [place] [address] 06/22/2024 2:30 PM EDT Office Visit Urogynecology [facility] [address] [place] [address] Quincy Garcia MD [address] [place] [address] 06/25/2024 9:00 AM EDT Office Visit Family Medicine [address] [place] [phone] Rafa Bergman MD [address] [place] [address] [place] [address] 06/26/2024 11:30 AM EDT Office Visit Ophthalmology, [facility] [address] [place] [address] Pedro Tinsley DO [address] [place] [address] 07/06/2024 8:40 AM EDT Office Visit [facility] [address] [facility] [place] [address] Alfonso Manning MD [address] [place] [address] 07/06/2024 11:00 AM EDT [facility] Visit [facility], [place] [address] [place] [address] Leon Liev PA-C [address] [place] [address] 07/14/2024 2:30 PM EDT Cardiac Studies Cardiology [address] [place] [address] Cadence [facility] [address] [place] [address] 07/21/2024 10:00 AM EDT Imaging Radiology [facility] [address] [place] [phone] 08/18/2024 10:20 AM EDT Laboratory Laboratory [address] [place] [phone] [facility] [address] [place] [address] 08/21/2024 3:00 PM EDT Office Visit Rheumatology [address] [place] [phone] José Miguel Cullen CRNP [facility] [place] [address] 08/25/2024 3:30 PM EDT Office Visit Hematology/Oncology [facility] [place] [address] [place] [phone] Arianna Szymanski MD [address] [place] [address] 09/11/2024 12:50 PM EDT Office Visit Dermatology, Jesu Wilson [address] [place] [phone] Dasha Nelson PA-C [address] [place] [address] 10/05/2024 1:30 PM EDT Office Visit Cardiology, [facility] [address] [place] [address] Charles Ortega DO [address] [place] [address] Health Maintenance Due Date Last Done Comments Adult Wellness Visit 02/06/2018 02/06/2017 Depression Screening 07/17/2022 07/17/2021 COVID-19 Vaccine ( season) 2023 02/05/2022, 08/02/2021, 02/28/2021, Additional history exists Influenza Vaccine (FLU shot) (#1) 2023 04/19/2023, 01/30/2022, 12/28/2020, Additional history exists Albumin/Creatinine Ratio 02/13/2024 023, 03/21/2022, 04/19/2021, Additional history exists HbA1c 04/26/2024 04/26/2023, 03/02, 04/19/2021, Additional history exists CKD PHOS USE SMARTSET 60960 06/26/202405/31, 04/19/2021, 11/27/2019, Additional history exists DXA Scan 07/18/2024 07/18/2022, 06/30, 12/22/2019, Additional history exists GFR 08/16/2024 02/17/2024, 08/2023, 06/27/2023, Additional history exists CKD HGB USE SMARTSET 32306 02/16/202502/16, 02/17/2024, 06/27/2023, Additional history exists TSH [...] D LEVEL ONCE IN A LIFETIME-USE SMARTSET# 86050 Completed 06/27/2023, 11/06/2021, 12/28/2019, Additional history exists [...] this encounter Medical Devices Implanted Type Area Streetcar Starter Device Identifier Shelf Expiration Date Model / Serial / Lot Lens Intraoc 21.5 - [id number] - [id number] Implanted:Qty: 1 on 05/12/2019 by Yury Brady MD at OR [facility] Right: Eye [employer] 12/30/2023 [id number] / [id number] / [id number] Lens Intraoc 22.5 - [id number] - [id number] Implanted:Qty: 1 on 04/05/2020 by Yury Brady MD at OR [facility] Left: Eye [employer] LOMB 09/28/2024 [id number] / [id number] / [id number] documented as of this encounter Additional Health Concerns Infection Onset Date Last Indicated Resolved Time Respiratory Rule-Out 06/05/2024 06/05/2024 documented as of this encounter Advance Directives Documents on File Type Date Recorded Patient Operations Controller Expl anation Advance Directives and Living Will [...] Agen t (per Health Care Power of Calibrator Barometers document) Guille Urban Adult Child Health Care Agen t (per Health Care Power of Calibrator Barometers document) [email or web address] om Care Teams Tie Tape Machine Operator Relationship Specialty Start Date End Date Rafa Bergman MD [address] [place] [address] [place] [address] PCP - General Family Medicine 04/19/21 documented as of this encounter
--- OUTSIDE RECORDS SUMMARY | 2024-07-24 00:10 | External Medical Summary | Summary of Care ---
Author Name Unknown Organization [facility] Address [address] [place] [address] Phone [phone] Care Team Providers Care Internal Grinder Tender Name Role Phone Rafa Bergman MD Primary Care Provide r Encounter Details Date Type Department Care Team (Late st Contact Info) Description 06/05/2024 Orders Only [facility] [place] [address] [place] [address] Angela Kohli CRNP [address] [place] [address] Pleural effusion on left* Allergies Active Allergy [...] goal LDL below 70,Coronary artery disease involving [place] coronary artery of [place] heart without angina pectoris TAKE ONE TABLET BY MOUTH IN THE MORNING 90 Tablet 3 05/25/2024 7:44 AM EST 4 Active Propranolol HCl 10 MG Oral Tablet (Inderal)Indicat ions:Sinus tachycardia,Tach y-chintan syndrome (HCC),Coronary artery disease involving [place] coronary artery of [place] heart without angina pectoris,Presenc e of cardiac [...] S/P angioplasty with stent 11/27/2018 Atherosclerosis of [place] co ronary artery of [place] heart without angina pectoris 07/08/2018 Overview (11/21/2023): [...] 09/13/2022 11/08/2023 Atherosclerosis of coronary artery of [place] heart without angina pectoris 09/10/2022 10/31/2022 Hypothyroidism [...] filter 02/28/2015 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 CXR reviewed Modest left pleural effusion. Start with IV diuretics. Lasix 80mg IVP and potassium 10 meq x1 dose today. Needs visit again tomorrow. If symptoms do not improve with IV diuretics, will need set up for thoracentesis early next week. LEYDA Gudino [facility], [address] [address] documented in this encounter Plan of Treatment Upcoming Encounters Date Type Department Care Team (Late st Contact Info) Description 06/12/2024 3:00 PM EDT Home Visit [facility], [facility] [address] [place] [address] Olinda Briggs RN [address] [place] [address] 06/22/2024 11:00 AM EDT Home Visit [facility], [facility] [address] [place] [address] Leon Live PA-C [address] [place] [address] 06/22/2024 2:30 PM EDT Office Visit Urogynecology [facility] [address] [place] [address] Quincy Garcia MD [address] [place] [address] 06/25/2024 9:00 AM EDT Office Visit Family Medicine [address] [place] [phone] Rafa Bergman MD [address] [place] [address] [place] [address] 06/26/2024 11:30 AM EDT Office Visit Ophthalmology, [facility] [address] [place] [address] Pedro Tinsley DO [address] [place] [address] 07/06/2024 8:40 AM EDT Office Visit Neurology [facility] [address] [place] [address] Alfonso Manning MD [address] [place] [address] 07/06/2024 11:00 AM EDT Home Visit [facility], [facility] [address] [place] [address] Leon Live PA-C [address] [place] [place] [address] 07/14/2024 2:30 PM EDT Cardiac Studies Cardiology [address] [place] [address] Cadence Horne [facility] [place] [address] 07/21/2024 10:00 AM EDT Imaging Radiology [facility] [address] [place] [phone] 08/18/2024 10:20 AM EDT Laboratory Laboratory [address] [place] [phone] [place] [address] 08/21/2024 3:00 PM EDT Office Visit Rheumatology [address] [place] [phone] José Miguel Cullen CRNP [address] [place] [address] [place] [address] 08/25/2024 3:30 PM EDT Office Visit Hematology/Oncology [employer] [address] [place] [phone] Arianna Szymanski MD [address] [place] [address] 09/11/2024 12:50 PM EDT Office Visit Dermatology, [facility] [address] [place] [address] Dasha Nelson, PADelaneyC [address] [place] [address] 10/05/2024 1:30 PM EDT Office Visit Cardiology, [facility] [address] [place] [address] Charles Ortega DO [address] [place] [address] Health Maintenance Due Date Last Done Comments Adult Wellness Visit 02/06/2018 02/06/2017 Depression Screening 07/17/2022 07/17/2021 COVID-19 Vaccine ( season) 2023 02/05/2022, 08/02/2021, 02/28/2021, Additional history exists Influenza Vaccine (FLU shot) (#1) 2023 04/19/2023, 01/30/2022, 12/28/2020, Additional history exists Albumin/Creatinine Ratio 02/13/2024 023, 03/21/2022, 04/19/2021, Additional history exists HbA1c 04/26/2024 04/26/2023, 03/02, 04/19/2021, Additional history exists CKD PHOS USE SMARTSET 86640 06/26/202405/31, 04/19/2021, 11/27/2019, Additional history exists DXA Scan 07/18/2024 07/18/2022, 06/30, 12/22/2019, Additional history exists GFR 08/16/2024 02/17/2024, 08/2023, 06/27/2023, Additional history exists CKD HGB USE SMARTSET 53401 02/16/202502/16, 02/17/2024, 06/27/2023, Additional history exists TSH [...] D LEVEL ONCE IN A LIFETIME-USE SMARTSET# 93915 Completed 06/27/2023, 11/06/2021, 12/28/2019, Additional history exists [...] this encounter Medical Devices Implanted Type Area Computer Clerk Device Identifier Shelf Expiration Date Model / Serial / Lot Lens Intraoc 21.5 - [id number] - [id number] Implanted:Qty: 1 on 05/12/2019 by Yury Brady MD at OR [facility] Right: Eye [employer] 12/30/2023 [id number] / [id number] / [id number] Lens Intraoc 22.5 - [id number] - [id number] Implanted:Qty: 1 on 04/05/2020 by Yury Brady MD at OR [facility] Left: Eye [employer] 09/28/2024 [id number] / [id number] / [id number] documented as of this encounter Visit Diagnoses Diagnosis Hypertensive kidney disease with stage 3a chronic kidney disease- Primary Atherosclerosis of [place] coronary artery of [place] heart without angina pectoris Dyslipidemia, goal LDL below 70 Other and unspecified hyperlipidemia History of pulmonary embolism Personal history of pulmonary embolism Tachy-chintan syndrome (HCC) Sinoatrial node dysfunction S/P placement of cardiac pacemaker Cardiac pacemaker in situ Arthralgia of right hip Gastro-esophageal reflux disease with esophagitis, without bleeding Sinus tachycardia Other specified cardiac dysrhythmias Coronary artery disease involving [place] coronary artery of [place] heart without angina pectoris Presence of cardiac pacemaker Cardiac pacemaker in situ Palpitations HTN, goal below 140/90 Unspecified essential hypertension Hypertensive kidney disease with stage 3a chronic kidney disease- Primary Dyslipidemia, goal LDL below 70 Other and unspecified hyperlipidemia Gastro-esophageal reflux disease with esophagitis, without bleeding Atherosclerosis of [place] coronary artery of [place] heart without angina pectoris Advanced care planning/counseling [...] Unspecified pleural effusion documented in this encounter Advance Directives Documents on File Type Date Recorded Patient Pharmacy Coordinator Expl anation Advance Directives and Living Will 03/11/2018 Krissy Urabn ADVANCE DIR ECTIVE * Full Code (Latest [...] t (per Health Care Power of Supplier Diversity Director document) Guille Suarezer Adult Child Health Care Agen t (per Health Care Power of Supplier Diversity Director document) [email or web address] om Care Teams Internal Grinder Tender Relationship Specialty Start Date End Date Rafa Bergman MD [address] [place] [address] [place] [phone] PCP - General Family Medicine 04/19/21 documented as of this encounter
--- OUTSIDE RECORDS SUMMARY | 2024-07-24 00:10 | External Medical Summary | Summary of Care ---
Author Name Unknown Organization [facility] Address [address] [place] [address] Phone [phone] Care Team Providers Care Inventory Checker Name Role Phone Rafa Bergman MD Primary Care Provide r Reason for Visit * Reason Onset Date Comments [facility]: Maintenance 06/04/2024 Encounter Details Date Type Department Care Team (Latest Contact Info) Description 06/04/2024 9:15 AM EST Scheduled Telephone [facility], [facility] [address] [facility] [place] [address] [facility], Nurse [facility] [address] [facility] [place] [address] SOB (shortness of breath)* Allergies Active Allergy Reactions Criticality Noted Date Comments Colchicine Diarrhea 06/16/2018 Daptomycin 01/05/2015 Shortness of breath Imipenem Edema airway High 01/05/2015 Metoprolol Low 01/23/2021 Other reaction(s): fatigue Zoledronic Acid 04/24/2012 Myalgias, fever, chills, vomiting x 2 days Sulfa Antibiotics 12/22/2002 Bactrim--itchy all over, eyes swollen documented as of this encounter (statuses as of 06/04/2024) Medications ASPIRIN 81 MG PO TABS Take [...] goal LDL below 70,Coronary artery disease involving white earth coronary artery of white earth heart without angina pectoris TAKE ONE TABLET BY MOUTH IN THE MORNING 90 Tablet 3 05/25/2024 7:44 AM EST 4 Active Propranolol HCl 10 MG Oral Tablet (Inderal)Indicat ions:Sinus tachycardia,Tach y-chintan syndrome (HCC),Coronary artery disease involving white earth coronary artery of white earth heart without angina pectoris,Presenc e of cardiac [...] as of this encounter (statuses as of 06/04/2024) Active Problems Problem Noted Date Diagnosed Date [...] 01/03/2023 History of AK (myocardial infarction) 11/27/2022 Assessment & Plan (04/16/2024 [...] angioplasty with stent 11/27/2018 Atherosclerosis of white earth co ronary artery of white earth heart without angina pectoris 07/08/2018 Overview (11/21/2023): [...] as of this encounter (statuses as of 06/04/2024) Resolved Problems Problem Noted Date Diagnosed Date Resolved Date Purulent endophthalmitis of right eye 01/03/2023 11/08/2023 Other pulmonary embolism wit h acute cor pulmonale 10/01/2022 04/26/2023 Overview (04/26/2023): history Medical home patient encounter 09/13/2022 11/08/2023 Atherosclerosis of coronary artery of white earth heart without angina pectoris 09/10/2022 10/31/2022 Hypothyroidism [...] filter 02/28/2015 Atherosclerotic heart diseas e of white earth coronary artery with angina pectoris 11/2018 CKD (chronic kidney disease) stage 2, GFR 60-89 ml/min 03/12/2019 documented as of this encounter (statuses as of 06/04/2024) Immunizations Name Administration Dates Next Due COVID-19 [...] 02/06/2024 Does the household have a [facility] hospit[facility] source of income? 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 Outgoing call to [facility] and spoke with Deangelo- verbal order given for cxr. Requested to havecxr done today if able. Claim # [id number] Faxed cxr order and demographics to [phone]. Outgoing call to the pt and notified her that RAMON Prakash will see her tomorrow morning around 8:30- 9 am for hte resp swab. Notified her of cxr order and prescriptions. She states that she will have her son sweet pickled fruit maker the medications from the pharmacy today. Advised to have her son also buy her Mucinex or Robitussin, she verbalized understanding of this and of all the above. Azeb BELTRAN, RN [facility] Intake Nurse Navigator Triage * Telephone Encounter - Azeb Em RN - 06/04/2024 10:13 AM EST Communication Note Name: Rehana Moran Situation: 79 yo female in [place] Background: HTN, CKD Assessment: Spoke with Rehana who states that she feels worse this morning. She had a fever last night 99- 100F orally. She states that her cough is 'really deep' today harsh moist coarse cough noted and she is concerned about having pneumonia as she has had in the past. The cough did keep her up last night. Her voice is hoarse. Productive cough for 'really yellow' sputum. She is having coughing fits. Blows nose for yellow secretions. +post nasal drip. +sore throat. +body aches. +headache. +pressure across forehead and above and below right eye. She c/o feeling weak and tired, fatigued. She isSOB after coughing a lot. She is not SOB otherwise. Denies feeling lightheaded or dizzy. Denies NVD. No loose stools. Last BM was last evening. She is taking Coricidin which helps temporarily. She is not taking Mucinex as she did not have anyone available to go to the pharmacy yesterday. She rates that headache pain 7/10. Body aches 8/10- is taking Tylenol with little relief. Recommendation: acute HV today- per Dr Hinojosa: Recommendations: Given no improvement in symptoms with conservative management will air on the side of caution and start oral antibiotics for presumed bronchitis versus pneumonia order chest x-ray to rule in or out pneumonia. Nasal swab for viral URI rule in versus out and short course Solu-Medrol dose pack for concern for sinusitis given pressured headaches. Of note, patient with some intolerance to Augmentin and thus will write levofloxacin 750 mg but given her renal impairment it is to be taken every other day. Plan XR Chest 2 Views levoFLOXacin 750 MG Oral Tablet methylPREDNISolone 4 MG Oral Tablet Therapy Pack (Medrol Dosepack) Care team availability: TT xenia Briggs RNCM * Addendum Note - Amish Hinojosa MD - 06/04/2024 9:24 AM ESTAddended by: AMISH HINOJOSA on: 06/04/2024 09:24 AM Modules accepted: Orders * Telephone Encounter - Amish Hinojosa MD - 06/04/2024 9:02 AM EST Recommendations: Given no improvement in symptoms with conservative management will air on the side of caution and start oral antibiotics for presumed bronchitis versus pneumonia order chest x-ray to rule in or out pneumonia. Nasal swab for viral URI rule in versus out and short course Solu-Medrol dose pack for concern for sinusitis given pressured headaches. Of note, patient with some intolerance to Augmentin and thus will write levofloxacin 750 mg but given her renal impairment it is to be taken every other day. Plan XR Chest 2 Views levoFLOXacin 750 MG Oral Tablet methylPREDNISolone 4 MG Oral Tablet Therapy Pack (Medrol Dosepack) E * Telephone Encounter - Azeb Em RN - 06/04/2024 8:27 AM EST [facility] Telephonic Nurse Follow-Up Call [facility] Subprogram: Focused Care Management (3-9 months) Follow Up Call Type: 24 hour follow up Acute issue requiring follow-up call: Other: 24/48 hr f/u- productive cough, sinus symptoms, chills, fatigue, body aches Objective: 03/13/2024 12:03 PM 02/25/2024 2:26 PM 02/24/2024 12:52 PM 02/21/2024 10:42 AM 02/14/2024 2:31 PM VIT[facility] ACROSS ENCOUNTERS BP 126/80 114/73 146/87 138/88 106/62 Pulse 92 111 109 79 Weight 74.8 kg 74.2 kg 74.7 kg BMI 29.16 BMI 29.19 kg/m2 28.98 kg/m2 29.16 kg/m2 Remote Patient Monitoring: NONE Oxygen Needs: NO supplemental oxygen needs identified DME Needs: NO DME needs identified Medications: No medication or dose adjustments made during acute episode Subjective: Condition Status: Worsening of symptoms Current Concerns: Spoke with Rehana who states that she feels worse this morning. She had a fever last night 99- 100F orally. She states that her cough is 'really deep' today harsh moist coarse cough noted and she is concerned about having pneumonia as she has had in the past. The cough did keep her up last night. Her voice is hoarse. Productive cough for 'really yellow' sputum. She is having coughing fits. Blows nose for yellow secretions. +post nasal drip. +sore throat. +body aches. +headache. +pressure across forehead and above and below right eye. She c/o feeling weak and tired, fatigued. She is SOB after coughing a lot. She is not SOB otherwise. Denies feeling lightheaded or dizzy. Denies NVD. No loose st ools. Last BM was last evening. She is taking Coricidin which helps temporarily. She is not taking Mucinex as she did not have anyone available to go to the pharmacy yesterday. She rates that headache pain 7/10. Body aches 8/10- is taking Tylenol with little relief. Will send to [facility] and [facility] care team for recommendations Disposition: Routed to [facility] and/or [facility] Care Team for further advice and Follow up call scheduled for tomorrow with JULIEN Cabinetmaker Supervisor Future Visits Scheduled: Future Appointments-next 60 days Date/Time Provider Specialty Dept Phone 06/04/2024 9:15 AM [facility], Nurse [facility] [phone] 06/05/2024 9:45 AM [facility], Nurse [facility] [phone] 06/12/2024 3:00 PM Olinda Briggs RN [facility] [phone] 06/22/2024 11:00 AM Leon Live PA-C [facility] [phone] 06/22/2024 2:30 PM (Arrive by 2:15 PM) Quincy Garcia MD Gynecology Urology [phone] 06/25/2024 9:00 AM (Arrive by 8:45 AM) Rafa Bergman MD Family Medicine [phone] 06/26/2024 11:30 AM Pedro Tinsley DO Ophthalmology [phone] 07/06/2024 8:40 AM (Arrive by 8:25 AM) Alfonso Manning MD Neurology [phone] 07/06/2024 11:00 AM Leon Live PA-C [facility] [phone] 07/14/2024 2:30 PM (Arrive by 2:15 PM) Cadence Horne [facility] Cardiology [phone] 07/21/2024 10:00 AM [facility] Radiology [phone] 08/18/2024 10:20 AM Cielo Marvin Mo Laboratory [phone] 08/21/2024 3:00 PM (Arrive by 2:45 PM) José Miguel Cullen CRNP Rheumatology [phone] 08/25/2024 3:30 PM (Arrive by 3:15 PM) Arianna Szymanski MD Hematology Oncology [phone] 09/11/2024 12:50 PM (Arrive by 12:35 PM) Dasha Nelson PA-C Dermatology [phone] 10/05/2024 1:30 PM (Arrive by 1:15 PM) Charles Ortega DO Cardiology [phone] Azeb Em RN documented in this encounter Plan of Treatment Upcoming Encounters Date Type Department Care Team (Late st Contact Info) Description 06/05/2024 8:00 AM EST Home Visit [facility], [facility] [address] [facility] [place] [address] Olinda Briggs RN [address] [facility] [place] [address] 06/05/2024 9:45 AM EST Scheduled Telephone [facility], [facility] [address] [place] [address] [facility] [address] [place] [address] 06/12/2024 3:00 PM EDT Home Visit [facility], [facility] [address] [place] [address] Olinda Briggs RN [address] [place] [address] 06/22/2024 11:00 AM EDT Home Visit [facility], [facility] [address] [place] [address] Leon Live PA-C [address] [place] [address] 06/22/2024 2:30 PM EDT Office Visit Urogynecology [facility] [address] [place] [address] Quincy Garcia MD [address] [place] [address] 06/25/2024 9:00 AM EDT Office Visit Family Medicine [address] [place] [phone] Rafa Bergman MD [address] [place] [address] [place] [address] 06/26/2024 11:30 AM EDT Office Visit Ophthalmology, [facility] [address] [place] [address] Pedro Tinsley DO [address] [place] [address] 07/06/2024 8:40 AM EDT Office Visit Neurology [facility] [place] [address] [place] [address] Alfonso Manning MD [address] [place] [address] 07/06/2024 11:00 AM EDT [facility] Visit [facility] [address] [place] [address] Leon Live PA-C [address] [place] [address] 07/14/2024 2:30 PM EDT Cardiac Studies Cardiology [address] [place] [address] [facility] [address] [place] [address] 07/21/2024 10:00 AM EDT Imaging Radiology [facility] [address] [place] [phone] 08/18/2024 10:20 AM EDT Laboratory Laboratory [address] [place] [phone] [facility] [address] [place] [address] 08/21/2024 3:00 PM EDT Office Visit Rheumatology [address] [place] [phone] José Miguel Cullen CRNP [address] [place] [address] [place] [address] 08/25/2024 3:30 PM EDT Office Visit Hematology/Oncology [facility] [address] [facility] [place], [place] [phone] Arianna Szymanski MD [address] [facility] [place], [place] [address] 09/11/2024 12:50 PM EDT Office Visit Dermatology, [facility]u [facility] [address] [place] [address] Dasha Nelson PA-C [address] [place] [address] 10/05/2024 1:30 PM EDT Office Visit Cardiology, [facility] [address] [place] [address] Charles Ortega DO [address] [place] [address] Scheduled Orders Name Type Priority Associated Diagnoses Orde r Schedule XR CHEST 2 VIEWS Medical Imaging Routine SOB (shortness of breath) Ordered: 06/04/2024 Health Maintenance Due Date Last Done Comments Adult Wellness Visit 02/06/2018 02/06/2017 Depression Screening 07/17/2022 07/17/2021 COVID-19 Vaccine ( season) 2023 02/05/2022, 08/02/2021, 02/28/2021, Additional history exists Influenza Vaccine (FLU shot) (#1) 2023 04/19/2023, 01/30/2022, 12/28/2020, Additional history exists Albumin/Creatinine Ratio 02/13/2024 023, 03/21/2022, 04/19/2021, Additional history exists HbA1c 04/26/2024 04/26/2023, 03/02, 04/19/2021, Additional history exists CKD PHOS USE SMARTSET 77022 06/26/202405/31, 04/19/2021, 11/27/2019, Additional history exists DXA Scan 07/18/2024 07/18/2022, 06/30, 12/22/2019, Additional history exists GFR 08/16/2024 02/17/2024, 08/2023, 06/27/2023, Additional history exists CKD HGB USE SMARTSET 19274 02/16/202502/16, 02/17/2024, 06/27/2023, Additional history exists TSH [...] D LEVEL ONCE IN A LIFETIME-USE SMARTSET# 69022 Completed 06/27/2023, 11/06/2021, 12/28/2019, Additional history exists [...] this encounter Medical Devices Implanted Type Area Operations Manager Device Identifier Shelf Expiration Date Model / Serial / Lot Lens Intraoc 21.5 - [id number] - [id number] Implanted:Qty: 1 on 05/12/2019 by Yury Brady MD at OR [facility] Right: Eye [employer] 12/30/2023 [id number] / [id number] / [id number] Lens Intraoc 22.5 - [id number] - [id number] Implanted:Qty: 1 on 04/05/2020 by Yury Brady MD at OR [facility] Left: Eye [employer] 09/28/2024 [id number] / [id number] / [id number] documented as of this encounter Visit Diagnoses Diagnosis Hypertensive kidney disease with stage 3a chronic kidney disease- Primary Atherosclerosis of white earth coronary artery of white earth heart without angina pectoris Dyslipidemia, goal LDL below 70 Other and unspecified hyperlipidemia History of pulmonary embolism Personal history of pulmonary embolism Tachy-chintan syndrome (HCC) Sinoatrial node dysfunction S/P placement of cardiac pacemaker Cardiac pacemaker in situ Arthralgia of right hip Gastro-esophageal reflux disease with esophagitis, without bleeding Sinus tachycardia Other specified cardiac dysrhythmias Coronary artery disease involving white earth coronary artery of white earth heart without angina pectoris Presence of cardiac pacemaker Cardiac pacemaker in situ Palpitations HTN, goal below 140/90 Unspecified essential hypertension Hypertensive kidney disease with stage 3a chronic kidney disease- Primary Dyslipidemia, goal LDL below 70 Other and unspecified hyperlipidemia Gastro-esophageal reflux disease with esophagitis, without bleeding Atherosclerosis of white earth coronary artery of white earth heart without angina pectoris Advanced care planning/counseling discussion- Primary Other specified counseling Hypertensive kidney disease with stage 3a chronic kidney disease (HCC) History of AK (myocardial infarction) Old myocardial infarction Tachy-chintan syndrome (HCC) Sinoatrial node dysfunction Dyslipidemia, goal LDL below 70 Other and unspecified hyperlipidemia Migraine without aura and without status migrainosus, not intractable Migraine without aura, without mention of intractable migraine without mention of status migrainosus Hypothyroidism (acquired) Unspecified hypothyroidism Senile osteoporosis 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 SOB (shortness of breath)- Primary Shortness of breath documented in this encounter Advance Directives Documents on File Type Date Recorded Patient Tactical Debriefer Expl anation Advance Directives and Living Will [...] Agen t (per Health Care Power of Effervescent Salts Compounder document) Guille Urban Adult Child Health Care Agen corey (per Health Care Power of Effervescent Salts Compounder document) [email or web address] om Care Teams Inventory Checker Relationship Specialty Start Date End Date Rafa Bergman MD [address] [place] [address] [place] [address] PCP - General Family Medicine 04/19/21 documented as of this encounter
--- OUTSIDE RECORDS SUMMARY | 2024-07-24 00:10 | External Medical Summary | Summary of Care ---
Author Name Unknown Organization [facility] Address [address] [facility] [place] [address] Phone [phone] Care Team Providers Care Sprinkler Irrigation Equipment Mechanic Name Role Phone Rafa Bergman MD Primary Care Provide r Reason for Visit * Reason Onset Date Comments [facility]: Maintenance 06/05/2024 Encounter Details Date Type Department Care Team (Late st Contact Info) Description 06/05/2024 9:45 AM EST Scheduled Telephone [facility], [facility] [address] [facility] [place] [address] [facility], Nurse [facility] [address] [facility] [place] [address] Allergies Active Allergy Reactions Criticality Noted Date [...] goal LDL below 70,Coronary artery disease involving kalispel coronary artery of kalispel heart without angina pectoris TAKE ONE TABLET BY MOUTH IN THE MORNING 90 Tablet 3 05/25/2024 7:44 AM EST 4 Active Propranolol HCl 10 MG Oral Tablet (Inderal)Indicat ions:Sinus tachycardia,Tach y-chintan syndrome (HCC),Coronary artery disease involving kalispel coronary artery of kalispel heart without angina pectoris,Presenc e of cardiac [...] S/P angioplasty with stent 11/27/2018 Atherosclerosis of kalispel co ronary artery of kalispel heart without angina pectoris 07/08/2018 Overview (11/21/2023): [...] 09/13/2022 11/08/2023 Atherosclerosis of coronary artery of kalispel heart without angina pectoris 09/10/2022 10/31/2022 Hypothyroidism [...] filter 02/28/2015 Atherosclerotic heart diseas e of kalispel coronary artery with angina pectoris 11/2018 CKD [...] 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 Jennifer Starks RN [facility] Registered Nurse Navigator Triage documented in this encounter Plan of Treatment Upcoming Encounters Date Type Department Care Team (Late st Contact Info) Description 06/12/2024 3:00 PM EDT Home Visit [facility], [address] [place] [address] Olinda Briggs, CHRISTINA [address] [place] [address] 06/22/2024 11:00 AM EDT [facility] Visit [facility], [facility] [address] [place] [address] Leon Live PA-C [address] [place] [address] 06/22/2024 2:30 PM EDT Office Visit Urogynecology [facility] [address] [place] [address] Quincy Garcia MD [address] [place] [address] 06/25/2024 9:00 AM EDT Office Visit Family Medicine [address] [address] Rafa Bergman MD [address] [place] [address] [place] [address] 06/26/2024 11:30 AM EDT Office Visit Ophthalmology, [facility] [address] [place] [address] Pedro Tinsley DO [address] [place] [address] 07/06/2024 8:40 AM EDT Office Visit Neurology [facility] [address] [place] [address] Alfonso Manning MD 200 [facility] [place] [address] 07/06/2024 11:00 AM EDT Home Visit [facility], [facility] [address] [place] [address] Leon Live PA-C [address] [place] [address] 07/14/2024 2:30 PM EDT Cardiac Studies Cardiology [address] [place] [address] [place], Pacer [facility] [address] [place] [address] 07/21/2024 10:00 AM EDT Imaging Radiology [facility] [address] [place] [phone] 08/18/2024 10:20 AM EDT Laboratory Laboratory [address] [place] [phone] [place] [address] 08/21/2024 3:00 PM EDT Office Visit Rheumatology [address] [place] [phone] José Miguel Cullen CRNP [address] [place] [address] [place] [address] 08/25/2024 3:30 PM EDT Office Visit Hematology/Oncology [facility] [place] [address] [place] [phone] Arianna Szymanski MD [address] [place] [address] 09/11/2024 12:50 PM EDT Office Visit Dermatology, Jesu Wilson [address] [place] [address] Dasha Nelson PA-C [address] [place] [phone] 10/05/2024 1:30 PM EDT Office Visit Cardiology, [facility] [address] [place] [address] Charles Ortega DO [address] [place] [address] Health Maintenance Due Date Last Done Comments Adult Wellness Visit 02/06/2018 02/06/2017 Depression Screening 07/17/2022 07/17/2021 COVID-19 Vaccine ( season) 2023 02/05/2022, 08/02/2021, 02/28/2021, Additional history exists Influenza Vaccine (FLU shot) (#1) 2023 04/19/2023, 01/30/2022, 12/28/2020, Additional history exists Albumin/Creatinine Ratio 02/13/2024 023, 03/21/2022, 04/19/2021, Additional history exists HbA1c 04/26/2024 04/26/2023, 03/02, 04/19/2021, Additional history exists CKD PHOS USE SMARTSET 70339 06/26/202405/31, 04/19/2021, 11/27/2019, Additional history exists DXA Scan 07/18/2024 07/18/2022, 06/30, 12/22/2019, Additional history exists GFR 08/16/2024 02/17/2024, 0808/2023, 06/27/2023, Additional history exists CKD HGB USE SMARTSET 79216 02/16/202502/16, 02/17/2024, 06/27/2023, Additional history exists TSH [...] D LEVEL ONCE IN A LIFETIME-USE SMARTSET# 96454 Completed 06/27/2023, 11/06/2021, 12/28/2019, Additional history exists [...] this encounter Medical Devices Implanted Type Area Food Management Aide Device Identifier Shelf Expiration Date Model / Serial / Lot Lens Intraoc 21.5 - [id number] - [id number] Implanted:Qty: 1 on 05/12/2019 by Yury Brady MD at OR [facility] Right: Eye [employer] 12/30/2023 [id number] / [id number] / [id number] Lens Intraoc 22.5 - [id number] - [id number] Implanted:Qty: 1 on 04/05/2020 by Yury Brady MD at OR [facility] Left: Eye [employer] LOMB 09/28/2024 [id number] / [id number] / [id number] documented as of this encounter Additional Health Concerns Infection Onset Date Last Indicated Resolved Time Respiratory Rule-Out 06/05/2024 06/05/2024 documented as of this encounter Advance Directives Documents on File Type Date Recorded Patient Gold Beater Expl anation Advance Directives and Living Will 03/11/2018 Krissy Isaacncer ADVANCE DIR ECTIVE * Full Code [...] t (per Health Care Power of Manager Practice document) Guille Urban Adult Child Health Care Agen t (per Health Care Power of Manager Practice document) [email or web address] om Care Teams Sprinkler Irrigation Equipment Mechanic Relationship Specialty Start Date End Date Rafa Bergman MD [address] [place] [address] [place] [phone] PCP - General Family Medicine 04/19/21 documented as of this encounter
--- OUTSIDE RECORDS SUMMARY | 2024-07-24 00:11 | External Medical Summary | Summary of Care ---
Author Name Unknown Organization [facility] Address [address] [place] [address] Phone [phone] Care Team Providers Care Component Overhaul Operator Name Role Phone Rafa Bergman MD Primary Care Provide r Encounter Details Date Type Department Care Team (Late st Contact Info) Description 06/04/2024 Orders Only [facility], 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 Not on file Not on file Not on file documented as of this encounter Plan of Treatment Upcoming Encounters Date Type Department Care Team (Late st Contact Info) Description 06/05/2024 8:00 AM EST [facility] Visit [facility] [address] [place] [address] Olinda Briggs RN 132 [place] [address] 06/05/2024 9:45 AM EST Scheduled Telephone [facility], [facility] [address] [place] [address] [facility], Nurse [facility] 132 [place] [address] 06/12/2024 3:00 PM EDT [facility] [address] [place] [address] Olinda Briggs RN [address] [place] [address] 06/22/2024 11:00 AM EDT Home Visit [facility], [facility] [address] [place] [address] Leon Live PA-C [address] [place] [address] 06/22/2024 2:30 PM EDT Office Visit Urogynecology [facility] [address] [place] [address] Quincy Garcia MD [address] [place] [address] 06/25/2024 9:00 AM EDT Office Visit Family Medicine [address] [phone] Rafa Bergman MD [address] [place] [address] [place] [address] 06/26/2024 11:30 AM EDT Office Visit Ophthalmology, [facility] [address] [place] [address] Pedro Tinsley, [address] [place] [address] 07/06/2024 8:40 AM EDT Office Visit Neurology [facility] [address] [facility] [place] [address] Alfonso Manning MD [address] [place] [address] 07/06/2024 11:00 AM EDT Home Visit [facility], [facility] [address] [place] [address] Leon Live PA-C [address] [place] [address] 07/14/2024 2:30 PM EDT Cardiac Studies Cardiology [address] [place] [address] [place], [facility] [address] [place] [address] 07/21/2024 10:00 AM EDT Imaging Radiology [facility] [address] [place] [phone] 08/18/2024 10:20 AM EDT Laboratory Laboratory [address] [place] [phone] [place] [address] 08/21/2024 3:00 PM EDT Office Visit Rheumatology [address] [place] [phone] José Miguel Cullen CRNP [address] [place] [address] [place] [address] 08/25/2024 3:30 PM EDT Office Visit Hematology/Oncology [facility] [place] [address] [place] [address] Arianna Szymanski MD [address] [place] [address] 09/11/2024 12:50 PM EDT Office Visit Dermatology, Jesu Wilson [address] [place] [address] Dasha Nelson PA-C [address] [place] [phone] 10/05/2024 1:30 PM EDT Office Visit Cardiology, [facility] [address] [place] [address] Charles Ortega DO [address] [place] [address] Scheduled Orders Name Type Priority Associated Diagnoses Orde r Schedule RESPIRATORY PATHOGEN PANEL, PCR Lab Routine SOSA (dyspnea on exertion) Expected: 06/04/2024 (Approximate), Expires: 06/04/2025 Health Maintenance Due Date Last Done Comments Adult Wellness Visit 02/06/2018 02/06/2017 Depression Screening 07/17/2022 07/17/2021 COVID-19 Vaccine ( season) 2023 02/05/2022, 08/02/2021, 02/28/2021, Additional history exists Influenza Vaccine (FLU shot) (#1) 2023 04/19/2023, 01/30/2022, 12/28/2020, Additional history exists Albumin/Creatinine Ratio 02/13/2024 023, 03/21/2022, 04/19/2021, Additional history exists HbA1c 04/26/2024 04/26/2023, 03/02, 04/19/2021, Additional history exists CKD PHOS USE SMARTSET 67219 06/26/202405/31, 04/19/2021, 11/27/2019, Additional history exists DXA Scan 07/18/2024 07/18/2022, 06/30, 12/22/2019, Additional history exists GFR 08/16/2024 02/17/2024, 08/0 08/2023, 06/27/2023, Additional history exists CKD HGB USE SMARTSET 82981 02/16/202502/16, 02/17/2024, 06/27/2023, Additional history exists TSH [...] D LEVEL ONCE IN A LIFETIME-USE SMARTSET# 43934 Completed 06/27/2023, 11/06/2021, 12/28/2019, Additional history exists [...] this encounter Medical Devices Implanted Type Area Field Assistant Device Identifier Shelf Expiration Date Model / Serial / Lot Lens Intraoc 21.5 - [id number] - [id number] Implanted:Qty: 1 on 05/12/2019 by Yury Brady MD at OR [facility] Right: Eye [employer] LOMB 12/30/2023 [id number] / [id number] / [id number] Lens Intraoc 22.5 - [id number] - [id number] Implanted:Qty: 1 on 04/05/2020 by Yury Brady MD at OR [facility] Left: Eye BAUSCH [employer] LOMB 09/28/2024 [id number] / [id number] / [id number] documented as of this encounter Visit Diagnoses [...] 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 SOSA (dyspnea on exertion)- Primary Other dyspnea and respiratory abnormality documented in this encounter Advance Directives Documents on File Type Date Recorded Patient Licensed Club Manager Expl anation Advance Directives and Living [...] Agen t (per Health Care Power of Business And Financial Counsel document) Guille Urban Adult Child Health Care Agen t (per Health Care Power of Business And Financial Counsel document) [email or web address] om Care Teams Component Overhaul Operator Relationship Specialty Start Date End Date Rafa Bergman MD [address] [place] [address] [place] [address] PCP - General Family Medicine 04/19/21 documented as of this encounter
--- OUTSIDE RECORDS SUMMARY | 2024-07-24 00:11 | External Medical Summary | Summary of Care ---
Author Name Unknown Organization [facility] Address [address] [place] [facility] [place] [address] Phone [phone] Care Team Providers Care Mix Crusher Operator Name Role Phone Rafa Bergman MD Primary Care Provide r Reason for Visit * Reason Onset Date Comments [facility]: Maintenance 06/04/2024 Encounter Details Date Type Department Care Team (Latest Contact Info) Description 06/04/2024 9:15 AM EST Scheduled Telephone [facility], [facility] 132 [facility] [place] [address] [facility], Nurse 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 History of PA (myocardial infarction) 11/27/2022 Assessment & Plan (04/16/2024 [...] S/P angioplasty with stent 11/27/2018 Atherosclerosis of mcgrath co ronary artery of mcgrath heart without angina pectoris 07/08/2018 Overview (11/21/2023): history of NSTEMI status post AMIE to LAD (culprit) and RCA, 04/28/2018 Assessment & Plan (01/24/2024 4:40 PM EDT): [facility] at [facility] 2x week Assessment & Plan (11/21/2023 [...] 09/13/2022 11/08/2023 Atherosclerosis of coronary artery of mcgrath heart without angina pectoris 09/10/2022 10/31/2022 Hypothyroidism [...] filter 02/28/2015 Atherosclerotic heart diseas e of mcgrath coronary artery with angina pectoris 11/2018 CKD [...] No 02/06/2024 Does the household have a [facility] health center[facility] source of income? 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 She rates that headache pain 10/08. Body aches 11/08- is taking Tylenol with little relief. Will send to [facility] and [facility] care team for recommendations Disposition: Routed to [facility] and/or [facility] Care Team for further advice and Follow up call scheduled for tomorrow with [facility] Property Management Supervisor Future Visits Scheduled: Future Appointments-next 60 days Date/Time Provider Specialty Dept Phone 06/04/2024 9:15 AM [facility], Nurse [facility] [phone] 06/05/2024 9:45 AM [facility] Nurse [facility] [phone] 06/12/2024 3:00 PM Olinda Briggs RN [facility] [phone] 06/22/2024 11:00 AM Leon Live PA-C [facility] [phone] 06/22/2024 2:30 PM (Arrive by 2:15 PM) Quincy Garcia MD Gynecology Urology [phone] 06/25/2024 9:00 AM (Arrive by 8:45 AM) Rafa Bergman MD Family Medicine [phone] 06/26/2024 11:30 AM Pedro Tinsley DO Ophthalmology [phone] 07/06/2024 8:40 AM (Arrive by 8:25 AM) Alfonso Manning MD Neurology [phone] 07/06/2024 11:00 AM Leon Live PA-C [facility] [phone] 07/14/2024 2:30 PM (Arrive by 2:15 PM) Cadence Horne [facility] Cardiology [phone] 07/21/2024 10:00 AM [facility] Radiology [phone] 08/18/2024 10:20 AM [facility] [phone] 08/21/2024 3:00 PM (Arrive by 2:45 PM) José Miguel Cullen CRNP Rheumatology [phone] 08/25/2024 3:30 PM (Arrive by 3:15 PM) Arianna Szymanski MD Hematology Oncology [phone] 09/11/2024 12:50 PM (Arrive by 12:35 PM) Dasha Nelson PA-C Dermatology [phone] 10/05/2024 1:30 PM (Arrive by 1:15 PM) Charles Ortega, Cardiology [phone] Azeb Em, RN documented in this encounter Plan of Treatment Upcoming Encounters Date Type Department Care Team (Late st Contact Info) Description 06/05/2024 9:45 AM EST Scheduled Telephone [facility], [facility] [address] [place] [address] [facility], Nurse [facility] [address] [place] [address] 06/12/2024 3:00 PM EDT [facility] Visit [facility], [facility] [address] [place] [address] Olinda Briggs, RN [address] [place] [address] 06/22/2024 11:00 AM EDT Home Visit [facility], [facility] [address] [place] [address] Leon Live PA-C 132 [place] [address] 06/22/2024 2:30 PM EDT Office Visit Urogynecology [facility] [address] [place] [address] Quincy Garcia MD [address] [place] [address] 06/25/2024 9:00 AM EDT Office Visit Family Medicine [address] [place] [phone] Rafa Bergman MD [address] [place] [address] [place] [address] 06/26/2024 11:30 AM EDT Office Visit Ophthalmology, [facility] [address] [place] [address] Pedro Tinsley DO [address] [place] [address] 07/06/2024 8:40 AM EDT Office Visit Neurology [facility] 200 [facility] [place] [address] Alfonso Manning MD 200 [facility] [place] [address] 07/06/2024 11:00 AM EDT [facility] Visit [facility] [address] [place] [address] Leon Live PA-C [address] [place] [address] 07/14/2024 2:30 PM EDT Cardiac Studies Cardiology [address] [place] [address] [facility] [address] [place] [address] 07/21/2024 10:00 AM EDT Imaging Radiology [facility] [address] [place] [phone] 08/18/2024 10:20 AM EDT Laboratory Laboratory [address] [place] [phone] [place] [address] 08/21/2024 3:00 PM EDT Office Visit Rheumatology [address] [place] [phone] José Miguel Cullen CRNP [address] [place] [address] [place] [address] 08/25/2024 3:30 PM EDT Office Visit Hematology/Oncology [facility] [address] [place] [address] Arianna Szymanski MD [address] [place] [address] 09/11/2024 12:50 PM EDT Office Visit Dermatology, Jesu Wilson [address] [facility] [address] [place] [address] Dasha Nelson PADelaneyC [address] [place] [phone] 10/05/2024 1:30 PM EDT Office Visit Cardiology, [facility] [address] [place] [address] Charles Ortega, 132 [place] [address] Scheduled Orders Name Type Priority Associated Diagnoses [...] Additional history exists CKD PHOS USE SMARTSET 65676 06/26/202405/31, 04/19/2021, 11/27/2019, Additional history exists DXA Scan 07/18/2024 07/18/2022, 06/30, 12/22/2019, Additional history exists GFR 08/16/2024 02/17/2024, 08/0 08/2023, 06/27/2023, Additional history exists CKD HGB USE SMARTSET 24603 02/16/202502/16, 02/17/2024, 06/27/2023, Additional history exists TSH [...] D LEVEL ONCE IN A LIFETIME-USE SMARTSET# 57798 Completed 06/27/2023, 11/06/2021, 12/28/2019, Additional history exists [...] this encounter Medical Devices Implanted Type Area Heat Reader Device Identifier Shelf Expiration Date Model / Serial / Lot Lens Intraoc 21.5 - [id number] - [id number] Implanted:Qty: 1 on 05/12/2019 by Yury Brady MD at OR [facility] Right: Eye [employer]OM[employer] 12/30/2023 [id number] / [id number] / [id number] Lens Intraoc 22.5 - [id number] - [id number] Implanted:Qty: 1 on 04/05/2020 by Yury Brady MD at OR [facility] Left: Eye BAUSCH [employer] LOMB 09/28/2024 [id number] / [id number] / [id number] documented as of this encounter Visit Diagnoses Diagnosis Hypertensive kidney disease with stage 3a chronic kidney disease- Primary Atherosclerosis of mcgrath coronary artery of mcgrath heart without angina pectoris Dyslipidemia, goal LDL below 70 Other and unspecified hyperlipidemia History of pulmonary embolism Personal history of pulmonary embolism Tachy-chintan syndrome (HCC) Sinoatrial node dysfunction S/P placement of cardiac pacemaker Cardiac pacemaker in situ Arthralgia of right hip Gastro-esophageal reflux disease with esophagitis, without bleeding Sinus tachycardia Other specified cardiac dysrhythmias Coronary artery disease involving mcgrath coronary artery of mcgrath heart without angina pectoris Presence of cardiac pacemaker Cardiac pacemaker in situ Palpitations HTN, goal below 140/90 Unspecified essential hypertension Hypertensive kidney disease with stage 3a chronic kidney disease- Primary Dyslipidemia, goal LDL below 70 Other and unspecified hyperlipidemia Gastro-esophageal reflux disease with esophagitis, without bleeding Atherosclerosis of mcgrath coronary artery of mcgrath heart without angina pectoris Advanced care planning/counseling discussion- Primary Other specified counseling Hypertensive kidney disease with stage 3a chronic kidney disease (HCC) History of PA (myocardial infarction) Old myocardial infarction Tachy-chintan syndrome [...] Documents on File Type Date Recorded Patient Glue Size Machine Operator Expl anation Advance Directives and [...] t (per Health Care Power of Director [facility] document) Guille Urban Adult Child Health Care Agen t (per Health Care Power of Director [facility] document) [email or web address] om Care Teams Mix Crusher Operator Relationship Specialty Start Date End Date Rafa Bergman MD [address] [place] [address] [place] [phone] PCP - General Family Medicine 04/19/21 documented as of this encounter
--- OUTSIDE RECORDS SUMMARY | 2024-07-24 00:11 | External Medical Summary | Summary of Care ---
Author Name Unknown Organization [facility] Address [address] [facility] [address] Phone [phone] Care Team Providers Care Provider Network Manager Name Role Phone Rafa Bergman MD Primary Care Provide r Reason for Visit * Reason Onset Date Comments [facility]: Maintenance 06/04/2024 Encounter Details Date Type Department Care Team (Latest Contact Info) Description 06/04/2024 9:15 AM EST Scheduled Telephone [facility], [facility] 132 [facility] [place] [address] [facility], Nurse [facility] 132 [facility] [place] [address] SOB (shortness of breath)* Allergies Active Allergy [...] tachycardia,Tach y-chintan syndrome (HCC),Coronary artery disease involving [place] ir[place] coronary artery of [place] heart without angina pectoris,Presenc e of [...] EDT): Cardiac rehab at [facility] 2x week Assessment & Plan [...] No 02/06/2024 Does the household have a [facility] source of income? 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 Recommendation: [...] Em RN - 06/04/2024 8:27 AM EST [facility] Telephonic Nurse Follow-Up Call [facility] Subprogram: Focused Care Management (3-9 [...] Tylenol with little relief. Will send to [facility] and [facility] care team for recommendations Disposition: Routed to [facility] and/or [facility] [place] Care Team for further advice and Follow up call scheduled for tomorrow with [facility] Real Estate Legal Secretary Future Visits Scheduled: Future Appointments-next 60 days Date/Time Provider Specialty Dept Phone 06/04/2024 9:15 AM [facility] [phone] 06/05/2024 9:45 AM [facility] Nurse [facility] [phone] 06/12/2024 3:00 PM Olinda Briggs RN [facility] [phone] 06/22/2024 11:00 AM Leon Live PA-C [facility] [phone] 06/22/2024 2:30 PM (Arrive by 2:15 PM) Quincy Garcia MD Gynecology Urology [phone] 06/25/2024 9:00 AM (Arrive by 8:45 AM) Rafa Bergman MD Family Medicine [phone] 06/26/2024 11:30 AM Pedro Tinsley, Ophthalmology [phone] 07/06/2024 8:40 AM (Arrive by 8:25 AM) Alfonso Manning MD Neurology [phone] 07/06/2024 11:00 AM Leon Live PA-C [facility] [phone] 07/14/2024 2:30 PM (Arrive by 2:15 PM) [facility] Cardiology [phone] 07/21/2024 10:00 AM [facility] Radiology [phone] 08/18/2024 10:20 AM Cielo Marvin [facility] [phone] 08/21/2024 3:00 PM (Arrive by 2:45 PM) José Miguel Cullen CRNP Rheumatology [phone] 08/25/2024 3:30 PM (Arrive by 3:15 PM) Arianna Szymanski MD Hematology Oncology [phone] 09/11/2024 12:50 PM (Arrive by 12:35 PM) Dasha Nelson PA-C Dermatology [phone] 10/05/2024 1:30 PM (Arrive by 1:15 PM) Charles Ortega, DO Cardiology [phone] Azeb Em, CHRISTINA documented in this encounter Plan of Treatment Upcoming Encounters Date Type Department Care Team (Late st Contact Info) Description 06/05/2024 9:45 AM EST Scheduled Telephone [facility], [facility] [address] [place] [address] [facility], Nurse [facility] [address] [place] [address] 06/12/2024 3:00 PM EDT Home Visit [facility] [place], [facility] [address] [place] [address] Olinda Briggs, RN [address] [place] [address] 06/22/2024 11:00 AM EDT Home Visit [facility], [facility] [address] [place] [address] Leon Live PA-C [address] [place] [address] 06/22/2024 2:30 PM EDT Office Visit Urogynecology [facility] [address] [place] [address] Quincy Garcia MD [address] [place] [address] 06/25/2024 9:00 AM EDT Office Visit Family Medicine [address] [place] [phone] Rafa Bergman MD [address] [place] [address] [place] [address] 06/26/2024 11:30 AM EDT Office Visit Ophthalmology, [facility] [address] [place] [address] Pedro Tinsley DO [address] [place] [address] 07/06/2024 8:40 AM EDT Office Visit Neurology [facility] [address] [place] [address] Alfonso Manning MD [address] [place] [address] 07/06/2024 11:00 AM EDT [facility] Visit [facility] [address] [place] [address] Leon Live PA-C [address] [place] [address] 07/14/2024 2:30 PM EDT Cardiac Studies Cardiology [address] [place] [address] [facility] [address] [place] [address] 07/21/2024 10:00 AM EDT Imaging Radiology [facility] [address] [place] [address] 08/18/2024 10:20 AM EDT Laboratory Laboratory [address] [place] [phone] [place] [address] 08/21/2024 3:00 PM EDT Office Visit Rheumatology [address] [place] [phone] José Miguel Cullen CRNP [facility] [place] [address] 08/25/2024 3:30 PM EDT Office Visit Hematology/Oncology [facility] [address] [place] [phone] Arianna Szymanski MD [address] [place] [address] 09/11/2024 12:50 PM EDT Office Visit Dermatology, [facility] Wilson [address] [facility] 140 [place] [address] Dasha Nelson, PADelaneyC 27 [place] [address] 10/05/2024 1:30 PM EDT Office Visit Cardiology, [facility] 132 [place] [address] Charles Ortega DO 132 [place] [address] Scheduled Orders Name Type Priority Associated Diagnoses [...] Additional history exists CKD PHOS USE SMARTSET 24904 06/26/202405/31, 04/19/2021, 11/27/2019, Additional history exists DXA Scan 07/18/2024 07/18/2022, 06/30, 12/22/2019, Additional history exists GFR 08/16/2024 02/17/2024, 08/0 08/2023, 06/27/2023, Additional history exists CKD HGB USE SMARTSET 32547 02/16/202502/16, 02/17/2024, 06/27/2023, Additional history exists TSH [...] D LEVEL ONCE IN A LIFETIME-USE SMARTSET# 15681 Completed 06/27/2023, 11/06/2021, 12/28/2019, Additional history exists [...] this encounter Medical Devices Implanted Type Area Workflow Developer Device Identifier Shelf Expiration Date Model / Serial / Lot Lens Intraoc 21.5 - [id number] - [id number] Implanted:Qty: 1 on 05/12/2019 by Yury Brady MD at OR [facility] Right: Eye [employer]OM[employer] 12/30/2023 [id number] / [id number] / [id number] Lens Intraoc 22.5 - [id number] - [id number] Implanted:Qty: 1 on 04/05/2020 by Yury Brady MD at OR [facility] Left: Eye BA[employer]CH [employer] LOMB 09/28/2024 [id number] / [id number] / [id number] documented as of this encounter Visit Diagnoses [...] Documents on File Type Date Recorded Patient Eyeglass Lens Generator Expl anation Advance Directives and Living Will [...] Agen t (per Health Care Power of Film Splicer document) Guille Isaacncer Adult Child Health Care Agen t (per Health Care Power of Film Splicer document) [email or web address] Care Teams Provider Network Manager Relationship Specialty Start Date End Date Rafa Bergman MD [address] [place] [address] [place] [phone] PCP - General Family Medicine 04/19/21 documented as of this encounter
--- OUTSIDE RECORDS SUMMARY | 2024-07-24 00:11 | External Medical Summary | Summary of Care ---
Author Name Unknown Organization [facility] Address [address] [place] [facility] [place] [address] Phone [phone] Care Team Providers Care Meter Maker Name Role Phone Rafa Bergman MD Primary Care Provide r Reason for Visit * Reason Onset Date Comments [facility]: Maintenance 06/04/2024 Encounter Details Date Type Department Care Team (Latest Contact Info) Description 06/04/2024 9:15 AM EST Scheduled Telephone [facility], [facility] 132 [facility] [place] [address] [facility], Nurse [facility] 132 [facility] [place] [address] SOB (shortness of breath)* Allergies Active Allergy [...] goal LDL below 70,Coronary artery disease involving emmonak coronary artery of emmonak heart without angina pectoris TAKE ONE TABLET BY MOUTH IN THE MORNING 90 Tablet 3 05/25/2024 7:44 AM EST 4 Active Propranolol HCl 10 MG Oral Tablet (Inderal)Indicat ions:Sinus tachycardia,Tach y-chintan syndrome (HCC),Coronary artery disease involving emmonak coronary artery of emmonak heart without angina pectoris,Presenc e of cardiac [...] S/P angioplasty with stent 11/27/2018 Atherosclerosis of emmonak co ronary artery of emmonak heart without angina pectoris 07/08/2018 Overview (11/21/2023): [...] 09/13/2022 11/08/2023 Atherosclerosis of coronary artery of emmonak heart without angina pectoris 09/10/2022 10/31/2022 Hypothyroidism [...] filter 02/28/2015 Atherosclerotic heart diseas e of emmonak coronary artery with angina pectoris 11/2018 CKD [...] No 02/06/2024 Does the household have a [facility] source of income? 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 Subprogram: Focused Care Management (3-9 [...] Tylenol with little relief. Will send to [facility] and [facility] care team for recommendations Disposition: Routed to [facility] and/or [facility] [place] Care Team for further advice and Follow up call scheduled for tomorrow with [facility] Registered Veterinary Technician Future Visits Scheduled: Future Appointments-next 60 days Date/Time Provider Specialty Dept Phone 06/04/2024 9:[address] [facility], Nurse [facility] [phone] 06/05/2024 9:45 AM [facility] Nurse [facility] [phone] 06/12/2024 3:00 PM Olinda Briggs RN [facility] [phone] 06/22/2024 11:00 AM Leon Live PA-C [facility] [phone] 06/22/2024 2:30 PM (Arrive by 2:15 PM) Quincy Garcia MD Gynecology Urology [phone] 06/25/2024 9:00 AM (Arrive by 8:45 AM) Rafa Bergman MD Family Medicine [phone] 06/26/2024 11:30 AM Pedro Tinsley DO Ophthalmology [phone] 07/06/2024 8:40 AM (Arrive by 8:25 AM) Alfonso Manning MD Neurology [phone] 07/06/2024 11:00 AM Leon Live PA-C [facility] [phone] 07/14/2024 2:30 PM (Arrive by 2:15 PM) [facility] Cardiology [phone] 07/21/2024 10:00 AM [facility] Radiology [phone] 08/18/2024 10:20 AM [facility] [phone] 08/21/2024 3:00 PM (Arrive by 2:45 PM) José Miguel Cullen CRNP Rheumatology [phone] 08/25/2024 3:30 PM (Arrive by 3:15 PM) Arianna Szymanski MD Hematology Oncology [phone] 09/11/2024 12:50 PM (Arrive by 12:35 PM) Dasha Nelson PA-C Dermatology [phone] 10/05/2024 1:30 PM (Arrive by 1:15 PM) Charles Ortega, Cardiology [phone] Azeb Em, RN documented in this encounter Plan of Treatment Upcoming Encounters Date Type Department Care Team (Late st Contact Info) Description 06/05/2024 9:45 AM EST Scheduled Telephone [facility], [facility] [address] [address] [facility], Nurse [facility] [address] [place] [address] 06/12/2024 3:00 PM EDT Home Visit [facility], [facility] [address] [place] [address] Olinda Briggs, RN [address] [place] [address] 06/22/2024 11:00 AM EDT Home Visit [facility], [facility] [address] [place] [address] Leon Live PA-C 132 [place] [address] 06/22/2024 2:30 PM EDT Office Visit Urogynecology [facility] [address] [place] [address] Quincy Garcia MD [address] [place] [address] 06/25/2024 9:00 AM EDT Office Visit Family Medicine [address] [place] [phone] Rafa Bergman MD [address] [place] [address] [place] [address] 06/26/2024 11:30 AM EDT Office Visit Ophthalmology, [facility] [address] [place] [address] Pedro Tinsley DO [address] [place] [address] 07/06/2024 8:40 AM EDT Office Visit Neurology [facility] [address] [facility] [place] [address] Alfonso Manning MD 200 [facility] [place] [address] 07/06/2024 11:00 AM EDT Home Visit [facility] at [facility] [address] [place] [address] Leon Live PA-C [address] [place] [address] 07/14/2024 2:30 PM EDT Cardiac Studies Cardiology [address] [place] [address] [facility] [address] [place] [address] 07/21/2024 10:00 AM EDT Imaging Radiology [facility] [address] [place] [phone] 08/18/2024 10:20 AM EDT Laboratory Laboratory [address] [place] [phone] [place] [address] 08/21/2024 3:00 PM EDT Office Visit Rheumatology [address] [place] [phone] José Miguel Cullen CRNP [address] [place] [address] [place] [address] 08/25/2024 3:30 PM EDT Office Visit Hematology/Oncology [facility] [address] [place] [phone] Arianna Szymanski MD [address] [place] [address] 09/11/2024 12:50 PM EDT Office Visit Dermatology, [facility] Wilson [address] [facility] 140 [place] [address] Dasha Nelson PADelaneyC 27 [place] [phone] 10/05/2024 1:30 PM EDT Office Visit Cardiology, [facility] 132 [place] [address] Charles Ortega, 132 [place] [address] Scheduled Orders Name Type Priority Associated Diagnoses [...] Additional history exists CKD PHOS USE SMARTSET 77163 06/26/202405/31, 04/19/2021, 11/27/2019, Additional history exists DXA Scan 07/18/2024 07/18/2022, 06/30, 12/22/2019, Additional history exists GFR 08/16/2024 02/17/2024, 08/0 08/2023, 06/27/2023, Additional history exists CKD HGB USE SMARTSET 39755 02/16/202502/16, 02/17/2024, 06/27/2023, Additional history exists TSH [...] D LEVEL ONCE IN A LIFETIME-USE SMARTSET# 29448 Completed 06/27/2023, 11/06/2021, 12/28/2019, Additional history exists [...] this encounter Medical Devices Implanted Type Area Manufacturing Team Leader Device Identifier Shelf Expiration Date Model / Serial / Lot Lens Intraoc 21.5 - [id number] - [id number] Implanted:Qty: 1 on 05/12/2019 by Yury Brady MD at OR [facility] Right: Eye [employer]OM[employer] 12/30/2023 [id number] / [id number] / [id number] Lens Intraoc 22.5 - [id number] - [id number] Implanted:Qty: 1 on 04/05/2020 by Yury Brady MD at OR [facility] Left: Eye [employer] LOMB 09/28/2024 [id number] / [id number] / [id number] documented as of this encounter Visit Diagnoses Diagnosis Hypertensive kidney disease with stage 3a chronic kidney disease- Primary Atherosclerosis of emmonak coronary artery of emmonak heart without angina pectoris Dyslipidemia, goal LDL below 70 Other and unspecified hyperlipidemia History of pulmonary embolism Personal history of pulmonary embolism Tachy-chintan syndrome (HCC) Sinoatrial node dysfunction S/P placement of cardiac pacemaker Cardiac pacemaker in situ Arthralgia of right hip Gastro-esophageal reflux disease with esophagitis, without bleeding Sinus tachycardia Other specified cardiac dysrhythmias Coronary artery disease involving emmonak coronary artery of emmonak heart without angina pectoris Presence of cardiac pacemaker Cardiac pacemaker in situ Palpitations HTN, goal below 140/90 Unspecified essential hypertension Hypertensive kidney disease with stage 3a chronic kidney disease- Primary Dyslipidemia, goal LDL below 70 Other and unspecified hyperlipidemia Gastro-esophageal reflux disease with esophagitis, without bleeding Atherosclerosis of emmonak coronary artery of emmonak heart without angina pectoris Advanced care planning/counseling discussion- Primary Other specified counseling Hypertensive kidney disease with stage 3a chronic kidney disease (HCC) History of [place] (myocardial infarction) Old myocardial infarction Tachy-chintan syndrome [...] Documents on File Type Date Recorded Patient Ammonia Nitrate Operator Expl anation Advance Directives and Living [...] Agen t (per Health Care Power of Meter Repairer document) Guille Urban Adult Child Health Care Agen t (per Health Care Power of Meter Repairer document) .c om Care Teams Meter Maker Relationship Specialty Start Date End Date Rafa Bergman MD [address] [place] [address] [place] [phone] PCP - General Family Medicine 04/19/21 documented as of this encounter
--- OUTSIDE RECORDS SUMMARY | 2024-07-24 00:11 | External Medical Summary | Summary of Care ---
Author Name Unknown Organization [facility] Address [address] [place] [address] Phone [phone] Care Team Providers Care Patient Educator Name Role Phone Rafa Bergman MD Primary Care Provide r Reason for Visit * Reason Onset Date Comments Appointment 03/04/2024 Encounter Details Date Type Department Care Team (Late st Contact Info) Description 03/04/2024 Telephone Family Medicine [address] [place] [phone] Rafa Bergman MD [address] [place] [address] [place] [address] Appointment Allergies Active Allergy Reactions Criticality Noted [...] 3 03/28/2024 12:49 PM EST 4 Active Hospital, Clinic, or Other Facility Administered Medication Ordered Dose Route Frequency Start Date End Date Status ROPivacaine (Naropin) inj 1.5 mgIndications: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 1.5 mg IJ PRN 11/07/2023 11/06/2024 Active Aflibercept (Eylea) intraviteal prefilled syringe 2 mgIndications: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 2 mg IZ PRN 11/07/2023 11/06/2024 Active documented as of this encounter (statuses [...] (01/24/2024 4:40 PM EDT): Cardiac rehab at [facility] 2x week Assessment & Plan [...] 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 Not on file Not on file documented as of this encounter Miscellaneous Notes * Telephone Encounter - Rolando Elizabeth, ASHLEY - 03/04/2024 8:48 AM EST Pt calling neds to see Dr Reyna in one month 04-03-2024 no appt till September with dr rosales would like to be squeezes in call pt at [phone] documented in this encounter Plan of Treatment Upcoming Encounters Date Type Department Care Team (Late st Contact Info) Description 06/04/2024 9:15 AM EST Scheduled Telephone [facility], [facility] [address] [place] [address] [facility], Nurse [place] [address] [facility] [place] [address] 06/05/2024 9:45 AM EST Scheduled Telephone [facility], [facility] [address] [place] [address] [facility], Nurse [place] [address] [address] [place] [address] 06/12/2024 3:00 PM EDT [facility] Visit [facility], [facility] [address] [place] [address] Olinda Briggs RN [address] [place] [address] 06/22/2024 11:00 AM EDT Home Visit [facility], [facility] [address] [place] [address] Leon Live PA-C [address] [place] [address] 06/22/2024 2:30 PM EDT Office Visit Urogynecology [facility] [address] [place] [address] Quincy Garcia MD [address] [place] [address] 06/25/2024 9:00 AM EDT Office Visit Family Medicine [address] [place] [phone] Rafa Bergman MD [address] [place] [address] [place] [address] 06/26/2024 11:30 AM EDT Office Visit Ophthalmology, [facility] [address] [place] [address] Pedro Tinsley, [address] [place] [address] 07/06/2024 8:40 AM EDT Office Visit Neurology [facility] [address] [place] [address] Alfonso Mannnig MD [address] [place] [address] 07/06/2024 11:00 AM EDT [facility] Visit [facility], [facility] [address] [place] [address] Loen Live PA-C [address] [place] [address] 07/14/2024 2:30 PM EDT Cardiac Studies Cardiology [address] [place] [address] [facility] [address] [place] [address] 07/21/2024 10:00 AM EDT Imaging Radiology [facility] [address] [place] [phone] 08/18/2024 10:20 AM EDT Laboratory Laboratory [address] [place] [phone] [place], [address] [place] [address] 08/21/2024 3:00 PM EDT Office Visit Rheumatology [address] [place] [phone] José Miguel Cullen CRNP [address] [facility] [place] [address] 08/25/2024 3:30 PM EDT Office Visit Hematology/Oncology [facility] 200 [facility] [place] [address] Arianna Szymanski MD 200 [facility] [place] [address] 09/11/2024 12:50 PM EDT Office Visit Dermatology, [facility] Wilson [address] [place] [address] Dasha Nelson PADelaneyC 27 [place] [address] 10/05/2024 1:30 PM EDT Office Visit Cardiology, [facility] [address] [place] [address] Charles Ortega, 132 [place] [address] Health Maintenance Due Date Last Done Comments Adult Wellness Visit 02/06/2018 02/06/2017 Depression Screening 07/17/2022 07/17/2021 COVID-19 Vaccine ( season) 2023 02/05/2022, 08/02/2021, 02/28/2021, Additional history exists Influenza Vaccine (FLU shot) (#1) 2023 04/19/2023, 01/30/2022, 12/28/2020, Additional history exists Albumin/Creatinine Ratio 02/13/202402/12/2 023, 03/21/2022, 04/19/2021, Additional history exists HbA1c 04/26/2024 04/26/2023, 1204/2021, 04/19/2021, Additional history exists CKD PHOS USE SMARTSET 09098 06/26/202405/31, 04/19/2021, 11/27/2019, Additional history exists DXA Scan 07/18/2024 07/18/2022, 06/30, 12/22/2019, Additional history exists GFR 08/16/2024 02/17/2024, 08/2023, 06/27/2023, Additional history exists CKD HGB USE SMARTSET 12805 02/16/202502/16, 02/17/2024, 06/27/2023, Additional history exists TSH [...] D LEVEL ONCE IN A LIFETIME-USE SMARTSET# 56413 Completed 06/27/2023, 11/06/2021, 12/28/2019, Additional history exists [...] encounter Medical Devices Implanted Type Area Director Of Scientific Research Device Identifier Shelf Expiration Date Model / Serial / Lot Lens Intraoc 21.5 - [id number] - [id number] Implanted:Qty: 1 on 05/12/2019 by Yury Brady MD at OR [facility] Right: Eye [employer] 12/30/2023 [id number] / [id number] / [id number] Lens Intraoc 22.5 - [id number] - [id number] Implanted:Qty: 1 on 04/05/2020 by Yury Brady MD at OR [facility] Left: Eye [employer] LOMB 09/28/2024 [id number] / [id number] / [id number] documented as of this encounter Advance Directives Documents on File Type Date Recorded 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
--- OUTSIDE RECORDS SUMMARY | 2024-07-24 00:12 | External Medical Summary | Summary of Care ---
Author Name Unknown Organization [facility] Address [address] [place] [place] [address] Phone [phone] Care Team Providers Care Time Study Statistician Name Role Phone Rafa Bergman MD Primary Care Provide r Reason for Visit * Reason Onset Date Comments [facility]: Maintenance 05/29/2024 Encounter Details Date Type Department Care Team (Late st Contact Info) Description 05/29/2024 Telephone [facility], [facility] [address] [facility] [place] [phone] Yamilka Wells RN [address] [facility] [phone] [facility]: Maintenance Allergies Active Allergy Reactions Criticality Noted Date Comments Colchicine Diarrhea 06/16/2018 Daptomycin 01/05/2015 Shortness of breath Imipenem Edema airway High 01/05/2015 Metoprolol Low 01/23/2021 Other reaction(s): fatigue Zoledronic Acid 04/24/2012 Myalgias, fever, chills, vomiting x 2 days Sulfa Antibiotics 12/22/2002 Bactrim--itchy all over, eyes swollen documented as of this encounter (statuses as of 05/29/2024) Medications ASPIRIN 81 MG PO TABS Take [...] goal LDL below 70,Coronary artery disease involving cachil dehe coronary artery of cachil dehe heart without angina pectoris TAKE ONE TABLET BY MOUTH IN THE MORNING 90 Tablet 3 05/25/2024 7:44 AM EST 4 Active Propranolol HCl 10 MG Oral Tablet (Inderal)Indicat ions:Sinus tachycardia,Tach y-chintan syndrome (HCC),Coronary artery disease involving cachil dehe coronary artery of cachil dehe heart without angina pectoris,Presenc e of cardiac [...] 135 Tablet 05/14/2024 5:55 PM EST Active Hospital, Clinic, or Other Facility Administered [...] as of this encounter (statuses as of 05/29/2024) Active Problems Problem Noted Date Diagnosed Date [...] S/P angioplasty with stent 11/27/2018 Atherosclerosis of cachil dehe co ronary artery of cachil dehe heart without angina pectoris 07/08/2018 Overview (11/21/2023): [...] as of this encounter (statuses as of 05/29/2024) Resolved Problems Problem Noted Date Diagnosed Date Resolved Date Purulent endophthalmitis of right eye 01/03/2023 11/08/2023 Other pulmonary embolism wit h acute cor pulmonale 10/01/2022 04/26/2023 Overview (04/26/2023): history Medical home patient encounter 09/13/2022 11/08/2023 Atherosclerosis of coronary artery of cachil dehe heart without angina pectoris 09/10/2022 10/31/2022 Hypothyroidism [...] filter 02/28/2015 Atherosclerotic heart diseas e of cachil dehe coronary artery with angina pectoris 11/2018 CKD (chronic kidney disease) stage 2, GFR 60-89 ml/min 03/12/2019 documented as of this encounter (statuses as of 05/29/2024) Immunizations Name Administration Dates Next Due COVID-19 [...] 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 States she called the number on the letter and was transferred to [facility]. Patient made aware to call the number back and to transfer to the correct number as [facility] does not perform these health assessments. RUBY Morales Registered Nurse Navigator Triage [facility] documented in this encounter Plan of Treatment Upcoming Encounters Date Type Department Care Team (Late st Contact Info) Description 06/12/2024 3:00 PM EDT Home Visit [facility], [facility] [address] [place] [address] Olinda Briggs, RN [address] [place] [address] 06/22/2024 11:00 AM EDT Home Visit [facility], [facility] [address] [place] [address] Leon Live PA-C [address] [place] [address] 06/22/2024 2:30 PM EDT Office Visit Urogynecology [facility] [address] [place] [address] Quincy Garcia MD [address] [place] [address] 06/25/2024 9:00 AM EDT Office Visit Family Medicine [address] [place] [phone] Rafa Bergman MD [address] [place] [address] [place] [address] 06/26/2024 11:30 AM EDT Office Visit Ophthalmology, [facility] [address] [place] [address] Pedro Tinsley DO [address] [place] [address] 07/06/2024 8:40 AM EDT Office Visit Neurology [facility] [address] [place] [address] Alfonso Manning MD [address] [place] [address] 07/06/2024 11:00 AM EDT [facility] Visit [facility] [address] [place] [address] Leon Live PA-C [address] [place] [address] 07/14/2024 2:30 PM EDT Cardiac Studies Cardiology [address] [place] [address] [place], Pacer [facility] [address] [place] [address] 07/21/2024 10:00 AM EDT Imaging Radiology [facility] [address] [place] [phone] 08/18/2024 10:20 AM EDT Laboratory Laboratory [address] [place] [phone] [address] [place] [address] 08/21/2024 3:00 PM EDT Office Visit Rheumatology [address] [place] [phone] José Miguel Cullen CRNP [address] [place] [address] [place] [address] 08/25/2024 3:30 PM EDT Office Visit Hematology/Oncology [facility] [address] [place] [address] Arianna Szymanski MD [address] [place] [address] 09/11/2024 12:50 PM EDT Office Visit Dermatology, Jesu Wilson [address] [place] [address] Dasha Nelson PA-C [address] [place] [address] 10/05/2024 1:30 PM EDT Office Visit Cardiology, [facility] [address] [place] [address] Charles Ortega O, DO [address] [place] [address] Health Maintenance Due Date Last Done Comments Adult Wellness Visit 02/06/2018 02/06/2017 Depression Screening 07/17/2022 07/17/2021 COVID-19 Vaccine ( season) 2023 02/05/2022, 08/02/2021, 02/28/2021, Additional history exists Influenza Vaccine (FLU shot) (#1) 2023 04/19/2023, 01/30/2022, 12/28/2020, Additional history exists Albumin/Creatinine Ratio 02/13/2024 023, 03/21/2022, 04/19/2021, Additional history exists HbA1c 04/26/2024 04/26/2023, 03/02, 04/19/2021, Additional history exists CKD PHOS USE SMARTSET 39324 06/26/202405/31, 04/19/2021, 11/27/2019, Additional history exists DXA Scan 07/18/2024 07/18/2022, 06/30, 12/22/2019, Additional history exists GFR 08/16/2024 02/17/2024, 08/0 08/2023, 06/27/2023, Additional history exists CKD HGB USE SMARTSET 42131 02/16/202502/16, 02/17/2024, 06/27/2023, Additional history exists TSH [...] D LEVEL ONCE IN A LIFETIME-USE SMARTSET# 34762 Completed 06/27/2023, 11/06/2021, 12/28/2019, Additional history exists [...] this encounter Medical Devices Implanted Type Area Media Librarian Device Identifier Shelf Expiration Date Model / Serial / Lot Lens Intraoc 21.5 - [id number] - [id number] Implanted:Qty: 1 on 05/12/2019 by Yury Brady MD at OR [facility] Right: Eye [employer]OM[employer] 12/30/2023 [id number] / [id number] / [id number] Lens Intraoc 22.5 - [id number] - [id number] Implanted:Qty: 1 on 04/05/2020 by Yury Brady MD at OR [facility] Left: Eye [employer]CH [employer] LOMB 09/28/2024 [id number] / [id number] / [id number] documented as of this encounter Advance Directives Documents on File Type Date Recorded 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
--- OUTSIDE RECORDS SUMMARY | 2024-07-24 00:12 | External Medical Summary | Summary of Care ---
Author Name Unknown Organization [facility] Address [address] [facility] [place] [address] Phone [phone] Care Team Providers Care Director Mortgage Name Role Phone Rafa Bergman MD Primary Care Provide r Reason for Visit * Reason Onset Date Comments [facility]: Acute 06/03/2024 Encounter Details Date Type Department Care Team (Late st Contact Info) Description 06/03/2024 Telephone [facility], [facility] [address] [facility] [place] [phone] Azeb Em RN [address] [facility] [place] [address] [facility]: Acute Allergies Active Allergy Reactions Criticality Noted Date Comments Colchicine Diarrhea 06/16/2018 Daptomycin 01/05/2015 Shortness of breath Imipenem Edema airway High 01/05/2015 Metoprolol Low 01/23/2021 Other reaction(s): fatigue Zoledronic Acid 04/24/2012 Myalgias, fever, chills, vomiting x 2 days Sulfa Antibiotics 12/22/2002 Bactrim--itchy all over, eyes swollen documented as of this encounter (statuses as of 06/03/2024) Medications ASPIRIN 81 MG PO TABS Take [...] as of this encounter (statuses as of 06/03/2024) Active Problems Problem Noted Date Diagnosed Date [...] (01/24/2024 4:40 PM EDT): Cardiac rehab at [facility] 2x week Assessment & Plan (11/21/2023 5:32 [...] as of this encounter (statuses as of 06/03/2024) Resolved Problems Problem Noted Date Diagnosed Date [...] as of this encounter (statuses as of 06/03/2024) Immunizations Name Administration Dates Next Due COVID-19 [...] 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 Also instructed to try warm salt water gargles for the sore throat and she states that she will do so. 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 Nursing Assessment: Patient's chief complaint for this call: Weakness/dizziness Rehana states that she went to [place] last week and states that she has been sick for a about 7- 8 days. She is concerned she may have the Flu and is inquiring if there is anythingelse she can take? She is not getting any worse, but she is not feeling any better. She has been taking Coricidin for chest congestion and it does temporarily help with the cough. She does not have athermometer. She has +chills. She has been taking ES Tylenol 2 tabs TID. Moist productive cough for"very thick orange- yellow" sputum. She expectorates and does blow her nose for the same orange to yellow secretions. She reports having coughing fits. The cough does not keep her up at night. She c/o "I ache all over". She does c/o runny nose and nasal congestion. She does c/o headache with pressure above and below her right eye, post nasal drip and a tender/ sore throat. One of her red flag symptoms includes signs of sinus infection symptoms. She is fatigued with exertion and wants to sleep most of the day, feels weak. She denies SOB. She may be a little lightheaded at times, denies dizziness. She is able to eat and drink. Denies nausea or vomiting. She reports having loose stools for thepast 2 days. Denies diarrhea. The pt did not do a home COVID/Flu test. Advised pt that if she had done a home test and did result as positive for either covid or flu thenif she had notified a Provider within the time range she may have been able to take an antiviral medication. Advised the pt that it is too late now, too many days have gone by since the onset of her symptoms. Pain Has pain Pain level: not quantified Location: above and below right eye Quality of Pain: pressure Does the pain radiate: Unknown Baseline Assessment Able to performing ADLs at baseline (walking, daily tasks, etc.): No Chief Complaint is related to a chronic condition: No Patient prescribed oxygen? No Patient has been ordered DME equipment (assistive devices, respiratory equipment, etc.): Unknown Medication Reconciliation: (See medication list) Received flu shot this season: Yes Taking medication as ordered: Yes Medications ordered/taking to treat reason for call: Yes, PRN medication(s) ES Tylenol, Coricidin Heart failure symptoms: No COPD exacerbation symptoms: No Reinforcement Education: Continue to take all medications as prescribed Conserve energy, rest, do not over do Maintain adequate hydration Continue to use humidifier Try OTC saline nasal spray Try OTC product with active ingredient Guaifenesin- Mucinex or Robitussin and follow package directions Have your son buy you a thermometer and check your temperature at least BID Call [facility] for new or worsening symptoms Monitor for worsening symptoms to report: fever, chills, NVD, SOB, change in sputum, worsening cough, increased fatigue or weakness, lightheaded or dizziness, lethargy Treatment/Plan: (need to report) Level of call: Acute Appointment scheduled for same day: No Provider Name: - Treatment plan until appointment: as above Will send to [facility] and [facility] care team Scheduled 24/48 hr f/u calls Call back instructions provided to patient. Azeb BELTRAN, RN [facility] Intake Nurse Navigator Triage documented in this encounter Plan of Treatment Upcoming Encounters Date Type Department Care Team (Late st Contact Info) Description 06/04/2024 9:15 AM EST Scheduled Telephone [facility] [place], [address] [place] [address] [facility], Nurse [place] [address] [address] [place] [address] 06/05/2024 9:45 AM EST Scheduled Telephone [facility] [place], [address] [place] [address] [facility] Nurse [place] [address] [place] [address] 06/12/2024 3:00 PM EDT [facility], [facility] [address] [place] [address] Olinda Briggs RN [address] [place] [address] 06/22/2024 11:00 AM EDT [facility] Visit [facility], [facility] [address] [place] [address] Leon Live PA-C [address] [place] [address] 06/22/2024 2:30 PM EDT Office Visit Urogynecology [facility] [address] [place] [address] Quincy Garcia MD [address] [place] [address] 06/25/2024 9:00 AM EDT Office Visit Family Medicine [address] [place] [phone] Rafa Bergman MD [address] [place] [address] [place] [address] 06/26/2024 11:30 AM EDT Office Visit Ophthalmology, [facility] [address] [place] [address] Pedro Tinsley DO [address] [place] [address] 07/06/2024 8:40 AM EDT Office Visit Neurology [facility] [address] [place] [facility] [place] [address] Alfonso Manning MD [address] [place], [place] [address] 07/06/2024 11:00 AM EDT [facility] [address] [place] [address] Leon Live PA-C [address] [place] [address] 07/14/2024 2:30 PM EDT Cardiac Studies Cardiology [address] [place] [address] [facility] [address] [place] [address] 07/21/2024 10:00 AM EDT Imaging Radiology [facility] [address] [place] [phone] 08/18/2024 10:20 AM EDT Laboratory Laboratory [address] [place] [phone] [address] [place] [address] 08/21/2024 3:00 PM EDT Office Visit Rheumatology [address] [place] [phone] José Miguel Cullen CRNP [address] [place] [address] [place] [address] 08/25/2024 3:30 PM EDT Office Visit [facility]ematology[facility] [place] [address] [place] [phone] Arianna Szymanski MD [address] [place] [address] 09/11/2024 12:50 PM EDT Office Visit Dermatology, [place] [address] [place] [address] Dasha Nelson PA-C [address] [place] [address] 10/05/2024 1:30 PM EDT Office Visit Cardiology, [facility] [address] [place] [address] Charles Ortega DO [address] [place] [address] Health Maintenance Due Date Last Done Comments Adult Wellness Visit 02/06/2018 02/06/2017 Depression Screening 07/17/2022 07/17/2021 COVID-19 Vaccine ( season) 2023 02/05/2022, 08/02/2021, 02/28/2021, Additional history exists Influenza Vaccine (FLU shot) (#1) 2023 04/19/2023, 01/30/2022, 12/28/2020, Additional history exists Albumin/Creatinine Ratio 02/13/2024 023, 03/21/2022, 04/19/2021, Additional history exists HbA1c 04/26/2024 04/26/2023, 03/02, 04/19/2021, Additional history exists CKD PHOS USE SMARTSET 56741 06/26/202405/31, 04/19/2021, 11/27/2019, Additional history exists DXA Scan 07/18/2024 07/18/2022, 06/30, 12/22/2019, Additional history exists GFR 08/16/2024 02/17/2024, 08/0 08/2023, 06/27/2023, Additional history exists CKD HGB USE SMARTSET 74664 02/16/202502/16, 02/17/2024, 06/27/2023, Additional history exists TSH [...] D LEVEL ONCE IN A LIFETIME-USE SMARTSET# 71379 Completed 06/27/2023, 11/06/2021, 12/28/2019, Additional history exists [...] this encounter Medical Devices Implanted Type Area Pot Runner Device Identifier Shelf Expiration Date Model / Serial / Lot Lens Intraoc 21.5 - [id number] - [id number] Implanted:Qty: 1 on 05/12/2019 by Yury Brady MD at OR [facility] Right: Eye [employer]OM[employer] 12/30/2023 [id number] / [id number] / [id number] Lens Intraoc 22.5 - [id number] - [id number] Implanted:Qty: 1 on 04/05/2020 by Yury Brady MD at OR [facility] Left: Eye [employer]CH [employer] LOMB 09/28/2024 [id number] / [id number] / [id number] documented as of this encounter Advance Directives Documents on File Type Date Recorded 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
--- OUTSIDE RECORDS SUMMARY | 2024-07-24 00:12 | External Medical Summary | Summary of Care ---
Author Name Unknown Organization [facility] Address [address] [place] [address] Phone [phone] Care Team Providers Care Steel Rule Inspector Name Role Phone Rafa Bergman MD Primary Care Provide r Reason for Visit * Reason Onset Date Comments Appointment 05/12/2024 Encounter Details Date Type Department Care Team (Late st Contact Info) Description 05/12/2024 Telephone [facility] [address] [place] [address] Daly Travis, ASHLEY [address] [place] [address] Appointment (//) Allergies Active Allergy Reactions Criticality Noted Date Comments Colchicine Diarrhea 06/16/2018 Daptomycin 01/05/2015 Shortness of breath Imipenem Edema airway High 01/05/2015 Metoprolol Low 01/23/2021 Other reaction(s): fatigue Zoledronic Acid 04/24/2012 Myalgias, fever, chills, vomiting x 2 days Sulfa Antibiotics 12/22/2002 Bactrim--itchy all over, eyes swollen documented as of this encounter (statuses as of 05/12/2024) Medications ASPIRIN 81 MG PO TABS Take [...] goal LDL below 70,Coronary artery disease involving [place] coronary artery of [place] heart without angina pectoris TAKE ONE TABLET BY MOUTH IN THE MORNING 90 Tablet 3 02/29/2024 11:02 AM EST 4 Active Propranolol HCl 10 MG Oral Tablet (Inderal)Indicat ions:Sinus tachycardia,Tach y-chintan syndrome (HCC),Coronary artery disease involving [place] coronary artery of [place] heart without angina pectoris,Presenc e of cardiac [...] breakfast or other meds) 90 Tablet 2 03/06/2024 5:37 PM EST 4 Active Vitamin B-12 1000 MCG [...] BY MOUTH EVERY DAY 135 Tablet 5 Active Hospital, Clinic, or Other Facility [...] as of this encounter (statuses as of 05/12/2024) Active Problems Problem Noted Date Diagnosed Date Migraine without aura and wi thout status migrainosus, not intractable 04/16/2024 Assessment & Plan (04/16/2024 4:06 PM EST): Continue magnesium and riboflavin Reports gabapentin was offered by neurology, will reach out to neurology regarding starting 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 04/16/2024 Nevus of 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 History of CA (myocardial infarction) 11/27/2022 Assessment & Plan (04/16/2024 [...] S/P angioplasty with stent 11/27/2018 Atherosclerosis of [place] co ronary artery of [place] heart without angina pectoris 07/08/2018 Overview (11/21/2023): [...] as of this encounter (statuses as of 05/12/2024) Resolved Problems Problem Noted Date Diagnosed Date Resolved Date Purulent endophthalmitis of right eye 01/03/2023 11/08/2023 Other pulmonary embolism wit h acute cor pulmonale 10/01/2022 04/26/2023 Overview (04/26/2023): history Medical home patient encounter 09/13/2022 11/08/2023 Atherosclerosis of coronary artery of [place] heart without angina pectoris 09/10/2022 10/31/2022 Hypothyroidism [...] filter 02/28/2015 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 Never True 02/06/2024 Does your family have a hard [...] place to sleep at night? No 02/06/2024 READ ONLY Do you think you a re at risk of becoming homeless? 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 Not on file Not on file documented as of this encounter Miscellaneous Notes * Telephone Encounter - Daly Travis OSA - 05/12/2024 9:03 AM EST Received voicemail asking about next appt with Leon Easley cb to let know there was appt scheduled for and to cb if there were any conflicts with this date and time documented in this encounter Plan of Treatment Upcoming Encounters Date Type Department Care Team (Late st Contact Info) Description 05/13/2024 4:00 PM EST Home Visit [facility] at [address] [place] [address] Olinda Briggs RN 132 [facility] [place] [address] 05/18/2024 10:00 AM EST Office Visit Neurology [facility] [place] [address] [place] [address] Alfonso Manning MD [address] [place] [address] 06/22/2024 11:00 AM EDT Home Visit [facility] at [facility] 132 [facility] [place] [address] Leon Live PA-C [address] [place] [address] 06/25/2024 9:00 AM EDT Office Visit Family Medicine [address] [place] [phone] Rafa Bergman MD [address] [place] [address] [place] [address] 06/26/2024 11:30 AM EDT Office Visit Ophthalmology, Health system [address] [place] [address] Pedro Tinsley DO [address] [place] [address] 07/06/2024 11:00 AM EDT [facility] [address] [place] [address] Leon Live PA-C [address] [place] [address] 07/21/2024 10:00 AM EDT Imaging Radiology Health system [address] [place] [phone] 08/18/2024 10:20 AM EDT Laboratory Laboratory [address] [place] [address] [place], Lab [address] [place] [address] 08/21/2024 3:00 PM EDT Office Visit Rheumatology [address] [place] [address] José Miguel Cullen CRNP [address] [place] [address] [place] [address] 08/25/2024 3:30 PM EDT Office Visit Hematology/Oncology [facility] 200 [facility] [place], [place] [address] Arianna Szymanski MD 200 [facility] [place] [address] 09/11/2024 12:50 PM EDT Office Visit Dermatology, Jesu Wilson [address] [place] [address] Dasha Nelson PA-C 27 [place] [address] 10/05/2024 1:30 PM EDT Office Visit Cardiology, Health system [address] [place] [address] Charles Ortega, [address] [place] [address] Health Maintenance Due Date Last Done Comments Adult Wellness Visit 02/06/2018 02/06/2017 Depression Screening 07/17/2022 07/17/2021 COVID-19 Vaccine ( season) 2023 02/05/2022, 08/02/2021, 02/28/2021, Additional history exists Influenza Vaccine (FLU shot) (#1) 2023 04/19/2023, 01/30/2022, 12/28/2020, Additional history exists Albumin/Creatinine Ratio 02/13/2024 023, 03/21/2022, 04/19/2021, Additional history exists HbA1c 04/26/2024 04/26/2023, 03/02, 04/19/2021, Additional history exists CKD PHOS USE SMARTSET 25091 06/26/202405/31, 04/19/2021, 11/27/2019, Additional history exists DXA Scan 07/18/2024 07/18/2022, 06/30, 12/22/2019, Additional history exists GFR 08/16/2024 02/17/2024, 08/2023, 06/27/2023, Additional history exists CKD HGB USE SMARTSET 25841 02/16/202502/16, 02/17/2024, 06/27/2023, Additional history exists TSH [...] D LEVEL ONCE IN A LIFETIME-USE SMARTSET# 74083 Completed 06/27/2023, 11/06/2021, 12/28/2019, Additional history exists HPV (Gardasil) Vaccine Aged Out No lo nger eligible based on patient's age to complete this topic MENINGOCOCCAL (MENACTRA/MENVEO) Aged Out No longer eligible based on patient's age to complete this topic documented as of this encounter Medical Devices Implanted Type Area Tool Crib Clerk Device Identifier Shelf Expiration Date Model / Serial / Lot Lens Intraoc 21.5 - [id number] - [id number] Implanted:Qty: 1 on 05/12/2019 by Yury Brady MD at OR [facility] Right: Eye [employer] 12/30/2023 [id number] / [id number] / [id number] Lens Intraoc 22.5 - [id number] - [id number] Implanted:Qty: 1 on 04/05/2020 by Yury Brady MD at OR [facility] Left: Eye [employer]OM[employer] 09/28/2024 [id number] / [id number] / [id number] documented as of this encounter Advance Directives Documents on File Type Date Recorded Patient Material Man Expl anation Advance Directives and Living Will 03/11/2018 Krissy WallaceLovecarrie Isaacncer ADVANCE DIR ECTIVE * Full Code [...] t (per Health Care Power of Supervisor Firearms document) Guille Wilmar Adult Child Health Care Agen t (per Health Care Power of Supervisor Firearms document) [email or web address] om Care Teams Steel Rule Inspector Relationship Specialty Start Date End Date Rafa Bergman MD [address] [place] [address] [place] [address] PCP - General Family Medicine 04/19/21 documented as of this encounter
--- OUTSIDE RECORDS SUMMARY | 2024-07-24 00:12 | External Medical Summary | Summary of Care ---
Author Name Unknown Organization [facility] Address [address] [place] [facility] [place] [address] Phone [phone] Care Team Providers Care Metal Caster Name Role Phone Rafa Bergman MD Primary Care Provide r Encounter Details Date Type Department Care Team (Late st Contact Info) Description 05/12/2024 Population Health External Data Unspecified Department Allergies Active Allergy Reactions Criticality Noted Date Comments Colchicine Diarrhea 06/16/2018 Daptomycin 01/05/2015 Shortness of breath Imipenem Edema airway High 01/05/2015 Metoprolol Low 01/23/2021 Other reaction(s): fatigue Zoledronic Acid 04/24/2012 Myalgias, fever, chills, vomiting x 2 days Sulfa Antibiotics 12/22/2002 Bactrim--itchy all over, eyes swollen documented as of this encounter (statuses as of 05/13/2024) Medications ASPIRIN 81 MG PO TABS Take [...] goal LDL below 70,Coronary artery disease involving [place] coronary artery of [place] heart without angina pectoris TAKE ONE TABLET BY MOUTH IN THE MORNING 90 Tablet 3 02/29/2024 11:02 AM EST 4 Active Propranolol HCl 10 MG Oral Tablet (Inderal)Indicat ions:Sinus tachycardia,Tach y-chintan syndrome (HCC),Coronary artery disease involving [place] coronary artery of [place] heart without angina pectoris,Presenc e of cardiac [...] as of this encounter (statuses as of 05/13/2024) Active Problems Problem Noted Date Diagnosed Date [...] S/P angioplasty with stent 11/27/2018 Atherosclerosis of [place] co ronary artery of [place]ul[place] heart without angina pectoris 07/08/2018 Overview (11/21/2023): [...] as of this encounter (statuses as of 05/13/2024) Resolved Problems Problem Noted Date Diagnosed Date Resolved Date Purulent endophthalmitis of right eye 01/03/2023 11/08/2023 Other pulmonary embolism wit h acute cor pulmonale 10/01/2022 04/26/2023 Overview (04/26/2023): history Medical home patient encounter 09/13/2022 11/08/2023 Atherosclerosis of coronary artery of nul[place] heart without angina pectoris 09/10/2022 10/31/2022 Hypothyroidism [...] (01/22/2017): ICD-10 update of inactive term BENIGN KRERIE SKIN TRUNK 11/21/20042013 MALIG KERRIE SKIN ARM [...] filter 02/28/2015 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 11/2018 CKD (chronic kidney disease) stage 2, GFR 60-89 ml/min 03/12/2019 documented as of this encounter (statuses as of 05/13/2024) Immunizations Name Administration Dates Next Due COVID-19 [...] 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 [address] [place] [address] Olinda Briggs RN [address] [place] [address] 06/22/2024 11:00 AM EDT [facility] Visit [facility] [place], [facility] [address] [place] [address] Leon Live PA-C [address] [place] [address] 06/25/2024 9:00 AM EDT Office Visit Family Medicine [address] [place] [phone] Rafa Bergman MD [address] [place] [address] [place] [address] 06/26/2024 11:30 AM EDT Office Visit Ophthalmology, [facility] [address] [place] [address] Pedro Tinsley, [address] [place] [address] 07/06/2024 11:00 AM EDT [facility] [address] [place] [address] Leon Live PA-C [address] [place] [address] 07/21/2024 10:00 AM EDT Imaging Radiology [facility] [address] [place] [phone] 08/18/2024 10:20 AM EDT Laboratory Laboratory [address] [place] [phone] [place] [address] 08/21/2024 3:00 PM EDT Office Visit Rheumatology [address] [place] [phone] José Miguel Cullen CRNP [address] [place] [address] [place] [address] 08/25/2024 3:30 PM EDT Office Visit Hematology/Oncology [facility] [place] [address] [place] [address] Arianna Szymanski MD [address] [place] [address] 09/11/2024 12:50 PM EDT Office Visit Dermatology, Jesu Wilson [address] [place] [address] Dasha Nelson PA-C [address] [place] [address] 10/05/2024 1:30 PM EDT Office Visit Cardiology, [facility] [address] [place] [address] Charles Ortega DO [address] [place] [address] Health Maintenance Due Date Last Done Comments Adult Wellness Visit 02/06/2018 02/06/2017 Depression Screening 07/17/2022 07/17/2021 COVID-19 Vaccine ( season) 2023 02/05/2022, 08/02/2021, 02/28/2021, Additional history exists Influenza Vaccine (FLU shot) (#1) 2023 04/19/2023, 01/30/2022, 12/28/2020, Additional history exists Albumin/Creatinine Ratio 02/13/2024 023, 03/21/2022, 04/19/2021, Additional history exists HbA1c 04/26/2024 04/26/2023, 03/02, 04/19/2021, Additional history exists CKD PHOS USE SMARTSET 89308 06/26/202405/31, 04/19/2021, 11/27/2019, Additional history exists DXA Scan 07/18/2024 07/18/2022, 06/30, 12/22/2019, Additional history exists GFR 08/16/2024 02/17/2024, 08/0 08/2023, 06/27/2023, Additional history exists CKD HGB USE SMARTSET 69463 02/16/202502/16, 02/17/2024, 06/27/2023, Additional history exists TSH [...] D LEVEL ONCE IN A LIFETIME-USE SMARTSET# 80807 Completed 06/27/2023, 11/06/2021, 12/28/2019, Additional history exists HPV (Gardasil) Vaccine Aged Out No lo nger eligible based on patient's age to complete this topic MENINGOCOCCAL (MENACTRA/MENVEO) Aged Out No longer eligible based on patient's age to complete this topic documented as of this encounter Medical Devices Implanted Type Area Manager Behavior Device Identifier Shelf Expiration Date Model / Serial / Lot Lens Intraoc 21.5 - [id number] - [id number] Implanted:Qty: 1 on 05/12/2019 by Yury Brady MD at OR [facility] Right: Eye [employer]OM[employer] 12/30/2023 [id number] / [id number] / [id number] Lens Intraoc 22.5 - [id number] - [id number] Implanted:Qty: 1 on 04/05/2020 by Yury Brady MD at [facility] Left: Eye [employer]USCH [employer] LOMB 09/28/2024 [id number] / [id number] / [id number] documented as of this encounter Advance Directives Documents on File Type Date Recorded 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
--- OUTSIDE RECORDS SUMMARY | 2024-07-24 00:12 | External Medical Summary | Summary of Care ---
Author Name Unknown Organization [facility] Address [address] [place] [facility] [place] [place] [address] Phone [phone] Care Team Providers Care Licensed Pharmacist Name Role Phone Rafa Bergman MD Primary Care Provide r Reason for Visit * Reason Onset Date Comments [facility]: Acute 06/03/2024 Encounter Details Date Type Department Care Team (Late st Contact Info) Description 06/03/2024 Telephone [facility], [facility] [address] [place] [address] Azeb Em RN [address] [place] [address] [facility]: Acute Allergies Active Allergy [...] goal LDL below 70,Coronary artery disease involving [place] coronary artery of [place] heart without angina pectoris TAKE ONE TABLET BY MOUTH IN THE MORNING 90 Tablet 3 05/25/2024 7:44 AM EST 4 Active Propranolol HCl 10 MG Oral Tablet (Inderal)Indicat ions:Sinus tachycardia,Tach y-chintan syndrome (HCC),Coronary artery disease involving [place] coronary artery of [place] heart without angina pectoris,Presenc e of cardiac [...] 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 History of [place] (myocardial infarction) 11/27/2022 Assessment & Plan (04/16/2024 [...] S/P angioplasty with stent 11/27/2018 Atherosclerosis of [place] co ronary artery of [place] heart without angina pectoris 07/08/2018 Overview (11/21/2023): history of NSTEMI status post AMIE to LAD (culprit) and RCA, 04/28/2018 Assessment & Plan (01/24/2024 4:40 PM EDT): Cardiac rehab at [facility] 2x week Assessment & Plan (11/21/2023 5:32 [...] 09/13/2022 11/08/2023 Atherosclerosis of coronary artery of [place] heart without angina pectoris 09/10/2022 10/31/2022 Hypothyroidism [...] filter 02/28/2015 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 Acute Call Date: 06/03/2024 Time: 9:48 AM [...] Weakness/dizziness Rehana states that she went to [place] last week and states that she has [...] check your temperature at least BID Call [facility] for new or worsening symptoms Monitor for worsening symptoms to report: fever, chills, NVD, SOB, change in sputum, worsening cough, increased fatigue or weakness, lightheaded or dizziness, lethargy Treatment/Plan: (need to report) Level of call: Acute Appointment scheduled for same day: No Provider Name: - Treatment plan until appointment: as above Will send to [facility] and [facility] care team Scheduled 24/48 hr f/u calls Call back instructions provided to patient. Azeb BELTRAN, RN [facility] Intake Nurse Navigator Triage documented in this encounter Plan of Treatment Upcoming Encounters Date Type Department Care Team (Late st Contact Info) Description 06/04/2024 9:15 AM EST Scheduled Telephone [facility] [place], [address] [place] [address] [facility], Nurse [place] [address] [address] [place] [address] 06/05/2024 9:45 AM EST Scheduled Telephone [facility] [place], [address] [place] [address] [facility] Nurse [place] [address] [place] [address] 06/12/2024 3:00 PM EDT [facility] Visit [facility], [facility] [address] [place] [address] Olinda Briggs RN [address] [place] [address] 06/22/2024 11:00 AM EDT Home Visit [facility], [facility] [address] [place] [address] Leon Live PA-C [address] [place] [address] 06/22/2024 2:30 PM EDT Office Visit Urogynecology [facility] [address] [place] [address] Quincy Garcia MD [address] [place] [address] 06/25/2024 9:00 AM EDT Office Visit Family Medicine [address] [place] [phone] Rafa Bergman MD [address] [place] [address] [place] [address] 06/26/2024 11:30 AM EDT Office Visit Ophthalmology, [facility] [address] [place] [address] Pedro Tinsley DO [address] [place] [address] 07/06/2024 8:40 AM EDT Office Visit Neurology [facility] [address] [place] [facility] [place] [address] Alfonso Manning MD [address] [place], [place] [address] 07/06/2024 11:00 AM EDT [facility] Visit [facility], [facility] [address] [place] [address] Leon Live PA-C [address] [place] [address] 07/14/2024 2:30 PM EDT Cardiac Studies Cardiology [address] [place] [address] [facility] [address] [place] [address] 07/21/2024 10:00 AM EDT Imaging Radiology [facility] [address] [place] [phone] 08/18/2024 10:20 AM EDT Laboratory Laboratory [address] [place] [phone] [address] [place] [address] 08/21/2024 3:00 PM EDT Office Visit Rheumatology [address] [place] [phone] José Miguel Cullen CRNP [address] [place] [address] [place] [address] 08/25/2024 3:30 PM EDT Office Visit [facility]ematology[facility] [place] [address] [place] [phone] Arianna Szymanski MD [address] [place] [address] 09/11/2024 12:50 PM EDT Office Visit Dermatology, Marily[address] [place]ces[place] [address] [place] [address] Dasha Nelson PA-C [address] [place] [address] 10/05/2024 1:30 PM EDT Office Visit Cardiology, [facility] [address] [place] [address] Charles Ortega DO 132 [place] [address] Health Maintenance Due Date Last Done Comments Adult Wellness Visit 02/06/2018 02/06/2017 Depression Screening 07/17/2022 07/17/2021 COVID-19 Vaccine ( season) 2023 02/05/2022, 08/02/2021, 02/28/2021, Additional history exists Influenza Vaccine (FLU shot) (#1) 2023 04/19/2023, 01/30/2022, 12/28/2020, Additional history exists Albumin/Creatinine Ratio 02/13/2024 023, 03/21/2022, 04/19/2021, Additional history exists HbA1c 04/26/2024 04/26/2023, 03/02, 04/19/2021, Additional history exists CKD PHOS USE SMARTSET 34788 06/26/202405/31, 04/19/2021, 11/27/2019, Additional history exists DXA Scan 07/18/2024 07/18/2022, 06/30, 12/22/2019, Additional history exists GFR 08/16/2024 02/17/2024, 08/0 08/2023, 06/27/2023, Additional history exists CKD HGB USE SMARTSET 48787 02/16/202502/16, 02/17/2024, 06/27/2023, Additional history exists TSH [...] D LEVEL ONCE IN A LIFETIME-USE SMARTSET# 82349 Completed 06/27/2023, 11/06/2021, 12/28/2019, Additional history exists [...] this encounter Medical Devices Implanted Type Area Compliance Attorney Device Identifier Shelf Expiration Date Model / Serial / Lot Lens Intraoc 21.5 - [id number] - [id number] Implanted:Qty: 1 on 05/12/2019 by Yury Brady MD at OR [facility] Right: Eye [employer] 12/30/2023 [id number] / [id number] / [id number] Lens Intraoc 22.5 - [id number] - [id number] Implanted:Qty: 1 on 04/05/2020 by Yury Brady MD at OR [facility] Left: Eye [employer]OMB 09/28/2024 [id number] / [id number] / [id number] documented as of this encounter Advance Directives Documents on File Type Date Recorded Patient Stockroom Attendant Expl anation Advance Directives and Living [...] Agen t (per Health Care Power of Clinical Operations Consultant document) Guille Urban Adult Child Health Care Agen t (per Health Care Power of Clinical Operations Consultant document) [email or web address] Care Teams Licensed Pharmacist Relationship Specialty Start Date End Date Rafa Bergman MD [address] [place] [address] [place] [id number] PCP - General Family Medicine 04/19/21 documented as of this encounter
--- OUTSIDE RECORDS SUMMARY | 2024-07-24 00:12 | External Medical Summary | Summary of Care ---
Author Name Unknown Organization [facility] Address [address] [place] [address] Phone [phone] Care Team Providers Care Repair Service Clerk Name Role Phone Rafa Bergman MD Primary Care Provide r Reason for Visit * Reason Onset Date Comments [facility]: Acute 06/03/2024 Encounter Details Date Type Department Care Team (Late st Contact Info) Description 06/03/2024 Telephone [facility], [facility] [address] [facility] [place] [phone] Azeb Em RN [address] [facility] [place] [address] [facility]: Acute Allergies Active Allergy [...] goal LDL below 70,Coronary artery disease involving [place] coronary artery of [place] heart without angina pectoris TAKE ONE TABLET BY MOUTH IN THE MORNING 90 Tablet 3 05/25/2024 7:44 AM EST 4 Active Propranolol HCl 10 MG Oral Tablet (Inderal)Indicat ions:Sinus tachycardia,Tach y-chintan syndrome (HCC),Coronary artery disease involving [place] coronary artery of [place] heart without angina pectoris,Presenc e of cardiac [...] [place] heart without angina pectoris 07/08/2018 Overview (11/21/2023): history of NSTEMI status post AMIE to LAD (culprit) and RCA, 04/28/2018 Assessment & Plan (01/24/2024 4:40 PM EDT): Cardiac rehab at [facility] 2x week Assessment & Plan (11/21/2023 5:32 [...] 09/13/2022 11/08/2023 Atherosclerosis of coronary artery of [place] [...] filter 02/28/2015 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 Acute Call Date: 06/03/2024 Time: 9:48 AM [...] Weakness/dizziness Rehana states that she went to [place] last week and states that she has [...] check your temperature at least BID Call [facility] for new or worsening symptoms Monitor for worsening symptoms to report: fever, chills, NVD, SOB, change in sputum, worsening cough, increased fatigue or weakness, lightheaded or dizziness, lethargy Treatment/Plan: (need to report) Level of call: Acute Appointment scheduled for same day: No Provider Name: - Treatment plan until appointment: as above Will send to [facility] and [facility] care team Scheduled 24/48 hr f/u calls Call back instructions provided to patient. Azeb BELTRAN, RN [facility] Intake Nurse Navigator Triage documented in this encounter Plan of Treatment Upcoming Encounters Date Type Department Care Team (Late st Contact Info) Description 06/04/2024 9:15 AM EST Scheduled Telephone [facility] [place], [address] [place] [address] [facility], Nurse [place] [address] [address] [place] [address] 06/05/2024 9:45 AM EST Scheduled Telephone [facility] [place], [address] [place] [address] [facility] Nurse [place] [address] [place] [address] 06/12/2024 3:00 PM EDT Home Visit [facility], [facility] [address] [place] [address] Olinda Briggs RN [address] [place] [address] 06/22/2024 11:00 AM EDT Home Visit [facility], [facility] [address] [place] [address] Leon Live PA-C [address] [place] [address] 06/22/2024 2:30 PM EDT Office Visit Urogynecology [facility] [address] [place] [address] Quincy Garcia MD [address] [place] [address] 06/25/2024 9:00 AM EDT Office Visit Family Medicine [address] [place] [phone] Rafa Bergman MD [address] [place] [address] [place] [address] 06/26/2024 11:30 AM EDT Office Visit Ophthalmology, [facility] [address] [place] [address] Pedro Tinsley DO [address] [place] [address] 07/06/2024 8:40 AM EDT Office Visit Neurology [facility] [address] [place] [address] Alfonso Manning MD [address] [place], [place] [address] 07/06/2024 11:00 AM EDT [facility], [facility] [address] [place] [address] Leon Live PA-C [address] [place] [address] 07/14/2024 2:30 PM EDT Cardiac Studies Cardiology [address] [place] [address] [facility] [address] [place] [address] 07/21/2024 10:00 AM EDT Imaging Radiology [facility] [address] [place] [phone] 08/18/2024 10:20 AM EDT Laboratory Laboratory [address] [place] [phone] [address] [place] [address] 08/21/2024 3:00 PM EDT Office Visit Rheumatology [address] [place] [phone] José Miguel Cullen CRNP [address] [place] [address] [place] [address] 08/25/2024 3:30 PM EDT Office Visit Hematology/Oncology [facility] [place] [address] [place] [phone] Arianna Szymanski MD [address] [place] [address] 09/11/2024 12:50 PM EDT Office Visit Dermatology, Marilyn Garces[address]u [address] [place] [address] Dasha Nelson PA-C [address] [place] [address] 10/05/2024 1:30 PM EDT Office Visit Cardiology, [facility] [address] [place] [address] Charles Ortega DO [address] [place] [address] Health Maintenance Due Date Last Done Comments Adult Wellness Visit 02/06/2018 02/06/2017 Depression Screening 07/17/2022 07/17/2021 COVID-19 Vaccine ( season) 2023 02/05/2022, 08/02/2021, 02/28/2021, Additional history exists Influenza Vaccine (FLU shot) (#1) 2023 04/19/2023, 01/30/2022, 12/28/2020, Additional history exists Albumin/Creatinine Ratio 02/13/2024 023, 03/21/2022, 04/19/2021, Additional history exists HbA1c 04/26/2024 04/26/2023, 03/02, 04/19/2021, Additional history exists CKD PHOS USE SMARTSET 64817 06/26/202405/31, 04/19/2021, 11/27/2019, Additional history exists DXA Scan 07/18/2024 07/18/2022, 06/30, 12/22/2019, Additional history exists GFR 08/16/2024 02/17/2024, 08/0 08/2023, 06/27/2023, Additional history exists CKD HGB USE SMARTSET 06509 02/16/202502/16, 02/17/2024, 06/27/2023, Additional history exists TSH [...] D LEVEL ONCE IN A LIFETIME-USE SMARTSET# 66527 Completed 06/27/2023, 11/06/2021, 12/28/2019, Additional history exists [...] this encounter Medical Devices Implanted Type Area Ginner Helper Device Identifier Shelf Expiration Date Model / Serial / Lot Lens Intraoc 21.5 - [id number] - [id number] Implanted:Qty: 1 on 05/12/2019 by Yury Brady MD at OR [facility] Right: Eye [employer] LOMB 12/30/2023 [id number] / [id number] / [id number] Lens Intraoc 22.5 - [id number] - [id number] Implanted:Qty: 1 on 04/05/2020 by Yury Brady MD at OR [facility] Left: Eye BAUSCH [employer] LOMB 09/28/2024 [id number] / [id number] / [id number] documented as of this encounter Advance Directives Documents on File Type Date Recorded Patient Nutrition Assistant Expl anation Advance Directives and Living [...] Agen t (per Health Care Power of Stile Ripsaw Operator document) Guille Urban Adult Child Health Care Agen t (per Health Care Power of Stile Ripsaw Operator document) [email or web address] om Care Teams Repair Service Clerk Relationship Specialty Start Date End Date Rafa Bergman MD [address] [place] [address] [place] [phone] PCP - General Family Medicine 04/19/21 documented as of this encounter
--- OUTSIDE RECORDS SUMMARY | 2024-07-24 00:13 | External Medical Summary | Summary of Care ---
Author Name Unknown Organization [facility] Address [address] [place] [address] Phone [phone] Care Team Providers Care Land Conservation Specialist Name Role Phone Rafa Bergman MD Primary Care Provide r Reason for Visit * Reason Onset Date Comments [facility]: Engagement 05/05/2024 Encounter Details Date Type Department Care Team (Late st Contact Info) Description 05/05/2024 Telephone [facility], [place] [address] [place] [address] Emily Grant, ASHLEY [address] [place] [address] [facility]: Engagement Allergies Active Allergy Reactions Criticality Noted Date Comments Colchicine Diarrhea 06/16/2018 Daptomycin 01/05/2015 Shortness of breath Imipenem Edema airway High 01/05/2015 Metoprolol Low 01/23/2021 Other reaction(s): fatigue Zoledronic Acid 04/24/2012 Myalgias, fever, chills, vomiting x 2 days Sulfa Antibiotics 12/22/2002 Bactrim--itchy all over, eyes swollen documented as of this encounter (statuses as of 05/05/2024) Medications ASPIRIN 81 MG PO TABS Take [...] CHEST PAIN 25 Tablet 1 4 Active Allopurinol 300 MG Oral Tablet (Zyloprim) TAKE 1 & 1/2 TABLETS BY MOUTH EVERY DAY 135 Tablet 02/19/2024 2:12 PM EST 4 Active Apixaban 2.5 MG Oral Tablet [...] goal LDL below 70,Coronary artery disease involving [place] coronary artery of [place] heart without angina pectoris TAKE ONE TABLET BY MOUTH IN THE MORNING 90 Tablet 3 02/29/2024 11:02 AM EST 4 Active Propranolol HCl 10 MG Oral Tablet (Inderal)Indicat ions:Sinus tachycardia,Tach y-chintan syndrome (HCC),Coronary artery disease involving [place] coronary artery of [place] heart without angina pectoris,Presenc e of cardiac [...] mouth in the morning. 90 Tablet 2 4 Active Riboflavin 400 MG Oral Tablet [...] times a day 90 Capsule 5 Active Hospital, Clinic, or Other Facility [...] as of this encounter (statuses as of 05/05/2024) Active Problems Problem Noted Date Diagnosed Date [...] S/P angioplasty with stent 11/27/2018 Atherosclerosis of [place] co ronary artery of [place] heart without angina pectoris 07/08/2018 Overview (11/21/2023): history of NSTEMI status post AMIE to LAD (culprit) and RCA, 04/28/2018 Assessment & Plan (01/24/2024 4:40 PM EDT): Cardiac rehab at [facility] 2x week Assessment & Plan (11/21/2023 [...] as of this encounter (statuses as of 05/05/2024) Resolved Problems Problem Noted Date Diagnosed Date Resolved Date Purulent endophthalmitis of right eye 01/03/2023 11/08/2023 Other pulmonary embolism wit h acute cor pulmonale 10/01/2022 04/26/2023 Overview (04/26/2023): history Medical home patient encounter 09/13/2022 11/08/2023 Atherosclerosis of coronary artery of [place] heart without angina pectoris 09/10/2022 10/31/2022 Hypothyroidism [...] filter 02/28/2015 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 11/2018 CKD (chronic kidney disease) stage 2, GFR 60-89 ml/min 03/12/2019 documented as of this encounter (statuses as of 05/05/2024) Immunizations Name Administration Dates Next Due COVID-19 [...] ages 0-17 years) Not on file 02/06/2024 Comments No Sex and Gender Information Value Date Recorded Sex Assigned at Female 02/20/2024 9:23 AM EST Legal Sex Female 5:27 AM EST Gender Identity Female 02/20/2024 9:23 AM EST Sexual Orientation Straight 02/20/2024 9: 23 AM EST 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 request ret appt in June, appt set for 07/06 documented in this encounter Plan of Treatment Upcoming Encounters Date Type Department Care Team (Late st Contact Info) Description 05/07/2024 3:00 PM EST Office Visit Ophthalmology, [facility] [address] [facility] [place] [address] Pedro Tinsley DO [address] [place] [address] 05/12/2024 1:00 PM EST Office Visit Cardiology, [facility] [address] [place] [address] Pricila Puga CRNP [address] [place] [address] [place] [address] 05/13/2024 4:00 PM EST [facility] Visit [facility], [facility] [address] [place] [address] Olinda Briggs, CHRISTINA [address] [facility] [place] [address] 05/18/2024 10:00 AM EST Office Visit [facility] [address] [facility] [address] Alfonso Manning MD [address] [facility] [place], [place] [address] 06/22/2024 11:00 AM EDT Home Visit [facility], [facility] [address] [place] [address] Leon Live PA-C [address] [place] [address] 06/25/2024 9:00 AM EDT Office Visit Family Medicine [address] [place] [phone] Rafa Bergman MD [address] [place] [address] [place] [address] 07/06/2024 11:00 AM EDT Home Visit [facility] [place], [facility] [address] [place] [address] Leon Live PA-C [address] [place] [address] 07/21/2024 10:00 AM EDT Imaging Radiology [facility] [address] [place] [phone] 08/18/2024 10:20 AM EDT Laboratory Laboratory [address] [place] [address] [place] [address] 08/21/2024 3:00 PM EDT Office Visit Rheumatology [address] [place] [address] José Miguel Cullen CRNP [address] [place] [address] [place] [address] 08/25/2024 3:30 PM EDT Office [facility] [place] [facility] [place] [address] Arianna Szymanski MD 200 [facility] [place], [place] [address] 09/11/2024 12:50 PM EDT Office Visit Dermatology, Jesu Wilson [address] [place] [address] Dasha Nelson PA-C 27 [place] [address] 10/05/2024 1:30 PM EDT Office Visit Cardiology, [facility] [address] [place] [address] Charles Ortega, [address] [place] [address] Health Maintenance Due Date Last Done Comments Adult Wellness Visit 02/06/2018 02/06/2017 Depression Screening 07/17/2022 07/17/2021 COVID-19 Vaccine ( season) 2023 02/05/2022, 08/02/2021, 02/28/2021, Additional history exists Influenza Vaccine (FLU shot) (#1) 2023 04/19/2023, 01/30/2022, 12/28/2020, Additional history exists Albumin/Creatinine Ratio 02/13/2024 023, 03/21/2022, 04/19/2021, Additional history exists HbA1c 04/26/2024 04/26/2023, 03/02, 04/19/2021, Additional history exists CKD PHOS USE SMARTSET 41343 06/26/202405/31, 04/19/2021, 11/27/2019, Additional history exists DXA Scan 07/18/2024 07/18/2022, 06/30, 12/22/2019, Additional history exists GFR 08/16/2024 02/17/2024, 0 08/2023, 06/27/2023, Additional history exists CKD HGB USE SMARTSET 81273 02/16/202502/16, 02/17/2024, 06/27/2023, Additional history exists TSH [...] D LEVEL ONCE IN A LIFETIME-USE SMARTSET# 89305 Completed 06/27/2023, 11/06/2021, 12/28/2019, Additional history exists HPV (Gardasil) Vaccine Aged Out No lo nger eligible based on patient's age to complete this topic MENINGOCOCCAL (MENACTRA/MENVEO) Aged Out No longer eligible based on patient's age to complete this topic documented as of this encounter Medical Devices Implanted Type Area Hairspring Adjuster Device Identifier Shelf Expiration Date Model / Serial / Lot Lens Intraoc 21.5 - [id number] - [id number] Implanted:Qty: 1 on 05/12/2019 by Yury Brady MD at OR [facility] Right: Eye [employer]OM[employer] 12/30/2023 [id number] / [id number] / [id number] Lens Intraoc 22.5 - [id number] - [id number] Implanted:Qty: 1 on 04/05/2020 by Yury Brady MD at OR [facility] Left: Eye BAUSCH & LOMB 09/28/2024 [id number] / [id number] / [id number] documented as of this encounter Advance Directives Documents on File Type Date Recorded Patient Temperature Control Inspector Expl anation Advance Directives and Living Will 03/11/2018 Krissy CarrionRainesofie Isaacncer ADVANCE DIR ECTIVE * Full Code [...] Agen t (per Health Care Power of Primer Supervisor document) Guille Wilmar Adult Child Health Care Agen t (per Health Care Power of Primer Supervisor document) [email or web address] om Care Teams Land Conservation Specialist Relationship Specialty Start Date End Date Rafa Bergman MD [address] [place] [address] [place] [phone] PCP - General Family Medicine 04/19/21 documented as of this encounter
--- OUTSIDE RECORDS SUMMARY | 2024-07-24 00:13 | External Medical Summary | Summary of Care ---
Author Name Unknown Organization [facility] Address [address] [facility] [place] [address] Phone [phone] Care Team Providers Care Battery Wrecker Operator Name Role Phone Rafa Bergman MD Primary Care Provide r Encounter Details Date Type Department Care Team (Late st Contact Info) Description 05/07/2024 Result Scan Unspecified Department Charles Ortega, DO [address] [place] [address] <No scans attached> Allergies Active Allergy Reactions Criticality Noted Date Comments Colchicine Diarrhea 06/16/2018 Daptomycin 01/05/2015 Shortness of breath Imipenem Edema airway High 01/05/2015 Metoprolol Low 01/23/2021 Other reaction(s): fatigue Zoledronic Acid 04/24/2012 Myalgias, fever, chills, vomiting x 2 days Sulfa Antibiotics 12/22/2002 Bactrim--itchy all over, eyes swollen documented as of this encounter (statuses as of 05/07/2024) Medications ASPIRIN 81 MG PO TABS Take [...] goal LDL below 70,Coronary artery disease involving [place] coronary artery of [place] heart without angina pectoris TAKE ONE TABLET BY MOUTH IN THE MORNING 90 Tablet 3 02/29/2024 11:02 AM EST 4 Active Propranolol HCl 10 MG Oral Tablet (Inderal)Indicat ions:Sinus tachycardia,Tach y-chintan syndrome (HCC),Coronary artery disease involving [place] coronary artery of [place] heart without angina pectoris,Presenc e of cardiac [...] as of this encounter (statuses as of 05/07/2024) Active Problems Problem Noted Date Diagnosed Date [...] S/P angioplasty with stent 11/27/2018 Atherosclerosis of [place] co ronary artery of [place] heart without angina pectoris 07/08/2018 Overview (11/21/2023): history of NSTEMI status post AMIE to LAD (culprit) and RCA, 04/28/2018 Assessment & Plan (01/24/2024 4:40 PM EDT): Cardiac rehab at [facility] 2x week Assessment & Plan (11/21/2023 [...] as of this encounter (statuses as of 05/07/2024) Resolved Problems Problem Noted Date Diagnosed Date Resolved Date Purulent endophthalmitis of right eye 01/03/2023 11/08/2023 Other pulmonary embolism wit h acute cor pulmonale 10/01/2022 04/26/2023 Overview (04/26/2023): history Medical home patient encounter 09/13/2022 11/08/2023 Atherosclerosis of coronary artery of [place] heart without angina pectoris 09/10/2022 10/31/2022 Hypothyroidism [...] filter 02/28/2015 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 11/2018 CKD (chronic kidney disease) stage 2, GFR 60-89 ml/min 03/12/2019 documented as of this encounter (statuses as of 05/07/2024) Immunizations Name Administration Dates Next Due COVID-19 [...] 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 [address] [facility] [place] [address] Alfonso Manning MD [address] [facility] [place] [address] 06/22/2024 11:00 AM EDT Home Visit [facility] [address] [place] [address] [address] Leon Live PA-C [address] [place] [address] 06/25/2024 9:00 AM EDT Office Visit Family Medicine [address] [place] [phone] Rafa Bergman MD [address] [place] [address] [place] [address] 06/26/2024 11:30 AM EDT Office Visit Ophthalmology, [facility] [address] [place] [address] Pedro Tinsley, DO [address] [place] [address] 07/06/2024 11:00 AM EDT [facility] [address] [place] [address] Leon Live PA-C [address] [place] [address] 07/21/2024 10:00 AM EDT Imaging Radiology [facility] [address] [place] [phone] 08/18/2024 10:20 AM EDT Laboratory Laboratory [address] [place] [phone] [facility] [address] [place] [address] 08/21/2024 3:00 PM EDT Office Visit Rheumatology [address] [place] [phone] José Miguel Cullen CRNP [address] [place] [address] [place] [address] 08/25/2024 3:30 PM EDT Office Visit Hematology/Oncology [facility] [address] [facility] [place] [phone] Arianna Szymanski MD [address] [facility] [place] [address] 09/11/2024 12:50 PM EDT Office Visit Dermatology, [facility] [address] [place] [address] Dasha Nelson PA-C [address] [place] [address] 10/05/2024 1:30 PM EDT Office Visit Cardiology, [facility] [address] [place] [address] Charles Ortega DO [address] [place] [address] Health Maintenance Due Date Last Done Comments Adult Wellness Visit 02/06/2018 02/06/2017 Depression Screening 07/17/2022 07/17/2021 COVID-19 Vaccine ( season) 2023 02/05/2022, 08/02/2021, 02/28/2021, Additional history exists Influenza Vaccine (FLU shot) (#1) 2023 04/19/2023, 01/30/2022, 12/28/2020, Additional history exists Albumin/Creatinine Ratio 02/13/2024 023, 03/21/2022, 04/19/2021, Additional history exists HbA1c 04/26/2024 04/26/2023, 03/02, 04/19/2021, Additional history exists CKD PHOS USE SMARTSET 74139 06/26/202405/31, 04/19/2021, 11/27/2019, Additional history exists DXA Scan 07/18/2024 07/18/2022, 06/30, 12/22/2019, Additional history exists GFR 08/16/2024 02/17/2024, 08/08/2023, 06/27/2023, Additional history exists CKD HGB USE SMARTSET 90450 02/16/202502/16, 02/17/2024, 06/27/2023, Additional history exists TSH [...] D LEVEL ONCE IN A LIFETIME-USE SMARTSET# 93176 Completed 06/27/2023, 11/06/2021, 12/28/2019, Additional history exists HPV (Gardasil) Vaccine Aged Out No lo nger eligible based on patient's age to complete this topic MENINGOCOCCAL (MENACTRA/MENVEO) Aged Out No longer eligible based on patient's age to complete this topic documented as of this encounter Medical Devices Implanted Type Area Lightning Rod Erector Device Identifier Shelf Expiration Date Model / Serial / Lot Lens Intraoc 21.5 - [id number] - [id number] Implanted:Qty: 1 on 05/12/2019 by Yury Brady MD at OR [facility] Right: Eye [employer]OM[employer] 12/30/2023 [id number] / [id number] / [id number] Lens Intraoc 22.5 - [id number] - [id number] Implanted:Qty: 1 on 04/05/2020 by Yury Brady MD at OR [facility] Left: Eye [employer]USCH [employer] LOMB 09/28/2024 [id number] / [id number] / [id number] documented as of this encounter Procedures Procedure Name Priority Date/Time Associated Diagnosis Comments CARDIOLOGY SCANNED RESULT 05/07/2024 documented in this encounter Results * CARDIOLOGY SCANNED RESULT (05/07/2024) 05/07/2024 us Charles Ortega DO OTHER Final Resul t documented in this encounter Advance Directives Documents on File Type Date Recorded Patient Gas Line Servicer Expl anation Advance Directives and Living Will [...] Agen t (per Health Care Power of Blog Writer document) Guille Urban Adult Child Health Care Agen t (per Health Care Power of Blog Writer document) [email or web address] om Care Teams Battery Wrecker Operator Relationship Specialty Start Date End Date Rafa Bergman MD [address] [place] [address] [place] [phone] PCP - General Family Medicine 04/19/21 documented as of this encounter
--- OUTSIDE RECORDS SUMMARY | 2024-07-24 00:13 | External Medical Summary | Summary of Care ---
Author Name Unknown Organization [facility] Address [address] [place] [address] Phone [phone] Care Team Providers Care Boiler Operator Name Role Phone Rafa Bergman MD Primary Care Provide r Reason for Visit * Reason Onset Date Comments [facility]: Maintenance 05/05/2024 Encounter Details Date Type Department Care Team (Late st Contact Info) Description 05/05/2024 Telephone [facility] [place] [address] [place] [address] Alivia Santizo OSA [address] [place], [place] [id number] [facility]: Maintenance Allergies Active Allergy [...] below 70,Coronary artery disease involving [place] coronary artery of [place] heart without angina pectoris TAKE ONE TABLET BY MOUTH IN THE MORNING 90 Tablet 3 02/29/2024 11:02 AM EST 4 Active Propranolol HCl 10 MG Oral Tablet (Inderal)Indicat ions:Sinus tachycardia,Tach y-chintan syndrome (HCC),Coronary artery disease involving [place] coronary artery of [place] heart without angina pectoris,Presenc e of cardiac [...] with stent 11/27/2018 Atherosclerosis of [place] co ronary artery of [place] heart without angina pectoris 07/08/2018 Overview (11/21/2023): history of NSTEMI status post AMIE to LAD (culprit) and RCA, 04/28/2018 Assessment & Plan (01/24/2024 4:40 PM EDT): Cardiac rehab at [facility] 2x week Assessment & Plan (11/21/2023 5:32 [...] Atherosclerosis of coronary artery of [place] heart without angina pectoris 09/10/2022 10/31/2022 Hypothyroidism [...] 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 Scheduled ret HV on 11 am. documented in this encounter Plan of Treatment Upcoming Encounters Date Type Department Care Team (Late st Contact Info) Description 05/07/2024 3:00 PM EST Office Visit Ophthalmology, [facility] [address] [place] [address] Pedro Tinsley DO [address] [place] [address] 05/12/2024 1:00 PM EST Office Visit Cardiology, [facility] [address] [place] [address] Pricila Puga CRNP [address] [place] [address] [place] [address] 05/13/2024 4:00 PM EST [facility] [address] [place] [address] Olinda Briggs, CHRISTINA [address] [place] [address] 05/18/2024 10:00 AM EST Office Visit Neurology [facility] [address] [place] [address] Alfonso Manning MD [address] [place] [address] 06/22/2024 11:00 AM EDT [facility] Visit [facility] [address] [place] [address] Leon Live PA-C [address] [place] [address] 06/25/2024 9:00 AM EDT Office Visit Family Medicine [address] [place] [phone] Rafa Bergman MD [address] [place] [address] [place] [address] 07/06/2024 11:00 AM EDT [facility] Visit [facility], [facility] [address] [place] [address] Leon Live PA-C [address] [place] [address] 07/21/2024 10:00 AM EDT Imaging Radiology [facility] [address] [place] [phone] 08/18/2024 10:20 AM EDT Laboratory Laboratory [address] [place] [phone] [facility] [address] [place] [address] 08/21/2024 3:00 PM EDT Office Visit Rheumatology [address] [place] [phone] José Miguel Cullen CRNP [address] [place] [address] [place] [address] 08/25/2024 3:30 PM EDT Office Visit Hematology/Oncology [facility] [address] [facility] [place], [place] [phone] Arianna Szymanski MD [address] [facility] [place] [address] 09/11/2024 12:50 PM EDT Office Visit Dermatology, [place] [address] [place] [address] Dasha Nelson PA-C [address] [place] [address] 10/05/2024 1:30 PM EDT Office Visit Cardiology, [facility] [address] [place] [address] Charles Ortega DO [address] [place] [address] Health Maintenance Due Date Last Done Comments Adult Wellness Visit 02/06/2018 02/06/2017 Depression Screening 07/17/2022 07/17/2021 COVID-19 Vaccine ( season) 2023 02/05/2022, 08/02/2021, 02/28/2021, Additional history exists Influenza Vaccine (FLU shot) (#1) 2023 04/19/2023, 01/30/2022, 12/28/2020, Additional history exists Albumin/Creatinine Ratio 02/13/2024 023, 03/21/2022, 04/19/2021, Additional history exists HbA1c 04/26/2024 04/26/2023, 03/02, 04/19/2021, Additional history exists CKD PHOS USE SMARTSET 39718 06/26/202405/31, 04/19/2021, 11/27/2019, Additional history exists DXA Scan 07/18/2024 07/18/2022, 06/30, 12/22/2019, Additional history exists GFR 08/16/2024 02/17/2024, 08/2023, 06/27/2023, Additional history exists CKD HGB USE SMARTSET 06244 02/16/202502/16, 02/17/2024, 06/27/2023, Additional history exists TSH [...] D LEVEL ONCE IN A LIFETIME-USE SMARTSET# 46351 Completed 06/27/2023, 11/06/2021, 12/28/2019, Additional history exists HPV (Gardasil) Vaccine Aged Out No lo nger eligible based on patient's age to complete this topic MENINGOCOCCAL (MENACTRA/MENVEO) Aged Out No longer eligible based on patient's age to complete this topic documented as of this encounter Medical Devices Implanted Type Area Residential Treatment Specialist Device Identifier Shelf Expiration Date Model / Serial / Lot Lens Intraoc 21.5 - [id number] - [id number] Implanted:Qty: 1 on 05/12/2019 by Yury Brady MD at OR [facility] Right: Eye [employer] LOM[employer] 12/30/2023 [id number] / [id number] / [id number] Lens Intraoc 22.5 - [id number] - [id number] Implanted:Qty: 1 on 04/05/2020 by Yury Brady MD at OR [facility] Left: Eye BAUSCH [employer] LOMB 09/28/2024 [id number] / [id number] / [id number] documented as of this encounter Advance Directives Documents on File Type Date Recorded Patient Powder Expert Expl anation Advance Directives and Living Will [...] t (per Health Care Power of Manager Of Change document) Guille Wilmar Adult Child Health Care Agen t (per Health Care Power of Manager Of Change document) [email or web address] om Care Teams Boiler Operator Relationship Specialty Start Date End Date Rafa Bergman MD [address] [place] [address] [place] [address] PCP - General Family Medicine 04/19/21 documented as of this encounter
--- OUTSIDE RECORDS SUMMARY | 2024-07-24 00:13 | External Medical Summary | Summary of Care ---
Author Name Unknown Organization [facility] Address [address] [place] [facility] [place] [address] Phone [phone] Care Team Providers Care Court Clerk Name Role Phone Rafa Bergman MD Primary Care Provide r Reason for Visit * Reason Comments Follow Up * Precert (Within 10 days (routine)) - Authorized Specialty Diagnoses / Procedures Referred By Ethan nicole Referred To Contact Ophthalmology Diagnoses Tributary (branch) retinal vein occlusion, right eye, with macular edema Procedures TX INJECTION, FARICIMAB-SVOA, 0.1 MG TX INTRAVITREAL NJX PHARMACOLOGIC AGT SPX Pedro Tinsley DO [address] [place] [address] Phone: tel: fax: Ophthalmology, [facility] [address] [facility] [place] [address] Phone: tel: fax: Referral ID Status Reason Start Date Expiration Date V isits Requested Visits Authorized [id number] Authorized Precert 02/04/2024 03/31/2099 [id number] Encounter Details Date Type Department Care Team (Surya st Contact Info) Description 05/07/2024 3:00 PM EST Office Visit Ophthalmology, [facility] [address] [place] [address] Pedro Tinsley DO [address] [place] [address] 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 [...] DAY 135 Tablet 02/19/2024 2:12 PM EST 10/11/202 4 Active Apixaban 2.5 MG Oral Tablet [...] goal LDL below 70,Coronary artery disease involving petersburg coronary artery of petersburg heart without angina pectoris TAKE ONE TABLET BY MOUTH IN THE MORNING 90 Tablet 3 02/29/2024 11:02 AM EST 4 Active Propranolol HCl 10 MG Oral Tablet (Inderal)Indicat ions:Sinus tachycardia,Tach y-chintan syndrome (HCC),Coronary artery disease involving petersburg coronary artery of [place] heart without angina pectoris,Presenc e of cardiac [...] three times a day 90 Capsule Active Hospital, Clinic, or Other Facility [...] S/P angioplasty with stent 11/27/2018 Atherosclerosis of petersburg co ronary artery of petersburg heart without angina pectoris 07/08/2018 Overview (11/21/2023): [...] 09/13/2022 11/08/2023 Atherosclerosis of coronary artery of peters[place] heart without angina pectoris 09/10/2022 10/31/2022 Hypothyroidism [...] filter 02/28/2015 Atherosclerotic heart diseas e of petersburg coronary artery with angina pectoris 11/2018 CKD [...] 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 Last Office Visit: 03/18/2024 (in office), Visit date not found (telemedicine) Patient currently states no change in vision. Are you diabetic? No Do you drive? yes OCT image(s) of right eye\ acquired and filed/scanned into chart. Base Eye Exam Visual Acuity (Snellen - Linear) Right Left Dist sc 20/150 -1 20/30 -1 Dist ph sc NI Tonometry (Tonopen, 2:56 PM) Right Left Pressure 10 12 Pupils Shape React APD Right Round Sluggish None Left Round Sluggish None Visual Toribio (Counting fingers) Right Left Full Full Extraocular Movement Right Left Full, Ortho Full, Ortho Neuro/Psych Oriented x3: Yes Mood/Affect: Normal Dilation Both eyes: 0.5% Proparacaine @ 2:54 PM Dilation #2 Right eye: 1.0% Mydriacyl, 2.5% Phenylephrine @ 2:56 PM EXTERNAL: The ocular adnexae are unremarkable. [...] 06/12/22, 04/18/22, 08/29/21, 07/13/21, 03/29/21, , --, 10-06-20, 08-04-20, 06/02/20, 03-22-20, 01-21-20, 10/29/19, 08-13-19, 05/27/19, 11-25-18, 08-21-18, 06-12-18, 04-03-18, 01-30-18, 11/28/17, 10-03-17, 07-25-17, 05-17-2017, 03-21-17, 01-25-17, 11-30-16, 10-05-16, 07/27/16, 17, 03-16-2016, 12/06/15, 10/21/15) - worse at 9 and 10 and 12 weeks was good in past at 12-14 weeks - best at 6-8 weeks in past - good at 6 weeks; has gone 7 weeks - Vabysmo 03/18/2024 -7 weeks (worse at 7weeks) 2. h/o Endophthalmitis OD -s/p Eylea 11/13/22 [...] Nursing Notes * Zeinab Quintero RN - 05/07/2024 3:12 PM EST Rehana Moran to receive second Vabysmo 6mg Injection of the Right eye. Correct eye confirmed with patient and marked by Pedro Tinsley DO Vabysmo 6mg lot # [id number] Exp. Date: 06/2025 * Dasha Clark TECH - 05/07/2024 2:51 PM EST Rehana Moran is a 79 year old year old female who presents for BRVO OD. Last Office Visit: 03/18/2024 (in office), Visit date not found (telemedicine) Patient currently states no change in vision. Are you diabetic? No Do you drive? yes OCT image(s) of right eye\ acquired and filed/scanned into chart. documented in this encounter Plan of Treatment Upcoming Encounters Date Type Department Care Team (Late st Contact Info) Description 05/12/2024 1:00 PM EST Office Visit Cardiology, [facility] [address] [facility] [place] [address] P[facility]ila Puga [facility] [address] 05/13/2024 4:00 PM EST [facility] [address] [facility] [place] [address] Olinda Briggs RN 132 [facility] [place] [address] 05/18/2024 10:00 AM EST [facility] [address] [facility] [place] [address] Alfonso Manning MD [address] [facility] [place] [address] 06/22/2024 11:00 AM EDT [facility] Visit [facility] [address] [facility] [place] [address] Leon Live PA-C [address] [place] [address] 06/25/2024 9:00 AM EDT Office Visit Family Medicine [address] [place] [phone] Rafa Bergman MD [address] [place] [address] [place] [address] 06/26/2024 11:30 AM EDT Office Visit Ophthalmology, [facility] [address] [place] [address] Pedro Tinsley DO [address] [place] [address] 07/06/2024 11:00 AM EDT [facility] Visit [facility] [place] [address] [place] [address] Leon Live PA-C [address] [place] [address] 07/21/2024 10:00 AM EDT Imaging Radiology [facility] [address] [place] [phone] 08/18/2024 10:20 AM EDT Laboratory Laboratory [address] [place] [address] [place] [address] 08/21/2024 3:00 PM EDT Office Visit Rheumatology [address] [place] [address] José Miguel Cullen CRNP [address] [place] [address] [place] [address] 08/25/2024 3:30 PM EDT Office Visit Hematology/[facility] [place] [address] [facility] [place], [place] [address] Arianna Szymanski MD [address] [facility] [place], [place] [address] 09/11/2024 12:50 PM EDT Office Visit Dermatology, Jesu Wilson [address] [place] [address] Dasha Nelson PA-C [address] [place] [address] 10/05/2024 1:30 PM EDT Office Visit Cardiology, [facility] [address] [facility] [place] [address] Charles Ortega DO 132 [facility] [place] [address] Scheduled Orders Name Type Priority Associated Diagnoses Orde r Schedule RETINA SCAN DIAGNOSTIC IMAGE, POSTERIOR Procedures Routine 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 Ordered: 05/07/2024 Health Maintenance Due Date Last Done Comments Adult Wellness Visit 02/06/2018 02/06/2017 Depression Screening 07/17/2022 07/17/2021 COVID-19 Vaccine ( season) 2023 02/05/2022, 08/02/2021, 02/28/2021, Additional history exists Influenza Vaccine (FLU shot) (#1) 2023 04/19/2023, 01/30/2022, 12/28/2020, Additional history exists Albumin/Creatinine Ratio 02/13/2024 023, 03/21/2022, 04/19/2021, Additional history exists HbA1c 04/26/2024 04/26/2023, 03/02, 04/19/2021, Additional history exists CKD PHOS USE SMARTSET 89119 06/26/202405/31, 04/19/2021, 11/27/2019, Additional history exists DXA Scan 07/18/2024 07/18/2022, 06/30, 12/22/2019, Additional history exists GFR 08/16/2024 02/17/2024, 080 08/2023, 06/27/2023, Additional history exists CKD HGB USE SMARTSET 42274 02/16/202502/16, 02/17/2024, 06/27/2023, Additional history exists TSH [...] D LEVEL ONCE IN A LIFETIME-USE SMARTSET# 14453 Completed 06/27/2023, 11/06/2021, 12/28/2019, Additional history exists HPV (Gardasil) Vaccine Aged Out No lo nger eligible based on patient's age to complete this topic MENINGOCOCCAL (MENACTRA/MENVEO) Aged Out No longer eligible based on patient's age to complete this topic documented as of this encounter Medical Devices Implanted Type Area Interior Decorator Painting Device Identifier Shelf Expiration Date Model / Serial / Lot Lens Intraoc 21.5 - [id number] - [id number] Implanted:Qty: 1 on 05/12/2019 by Yury Brady MD at OR [facility] Right: Eye [employer] 12/30/2023 [id number] / [id number] / [id number] Lens Intraoc 22.5 - [id number] - [id number] Implanted:Qty: 1 on 04/05/2020 by CaitlynYury giang MD at OR [facility] Left: Eye [employer] 09/28/2024 [id number] / [id number] / [id number] documented as of this encounter Visit Diagnoses Diagnosis Hypertensive kidney disease with stage 3a chronic kidney disease- Primary Atherosclerosis of petersburg coronary artery of [place] heart without angina pectoris Dyslipidemia, goal LDL below 70 Other and unspecified hyperlipidemia History of pulmonary embolism Personal history of pulmonary embolism Tachy-chintan syndrome (HCC) Sinoatrial node dysfunction S/P placement of cardiac pacemaker Cardiac pacemaker in situ Arthralgia of right hip Gastro-esophageal reflux disease with esophagitis, without bleeding Sinus tachycardia Other specified cardiac dysrhythmias Coronary artery disease involving petersburg coronary artery of peters[place] heart without angina pectoris Presence of cardiac pacemaker Cardiac pacemaker in situ Palpitations HTN, goal below 140/90 Unspecified essential hypertension Hypertensive kidney disease with stage 3a chronic kidney disease- Primary Dyslipidemia, goal LDL below 70 Other and unspecified hyperlipidemia Gastro-esophageal reflux disease with esophagitis, without bleeding Atherosclerosis of petersburg coronary artery of p[place] heart without angina pectoris Advanced care planning/counseling discussion- Primary Other specified counseling Hypertensive kidney disease with stage 3a chronic kidney disease (HCC) History of OH (myocardial infarction) Old myocardial infarction Tachy-chintan syndrome (HCC) Sinoatrial node dysfunction Dyslipidemia, goal LDL below 70 Other and unspecified hyperlipidemia Migraine without aura and without status migrainosus, not intractable Migraine without aura, without mention of intractable migraine without mention of status migrainosus Hypothyroidism (acquired) Unspecified hypothyroidism Senile osteoporosis 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 [...] of right eye with macular edema Given 05/07/2024 3:13 PM EST 6 mg Eye Right Given 03/18/2024 2:42 PM EST 6 mg Ey e Right ROPivacaine (Naropin) inj 1.5 mg 1.5 mg, Injection, PRN Other, Starting on Karime 11/07/23 at 1428, Until 11/06/24 at 1427, For 365 daysIndications: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 Given 05/07/2024 3:13 PM EST 1.5 mg Eye R ight Given 03/18/2024 2:28 PM EST 1.5 mg Ey e Right Given 02/04/2024 11:38 AM EST 1.5 mg E ye Right documented in this encounter Advance Directives Documents on File Type Date Recorded Patient Telepathist Expl anation Advance Directives and Living Will [...] t (per Health Care Power of Manager Banking document) [facility]ille [facility] Adult Child Health Care Agen t (per Health Care Power of Manager Banking document) [email or web address] Care Teams Court Clerk Relationship Specialty Start Date End Date Rafa Bergman MD [address] [place] [address] [place] [address] PCP - General Family Medicine 04/19/21 documented as of this encounter
--- OUTSIDE RECORDS SUMMARY | 2024-07-24 00:13 | External Medical Summary | Summary of Care ---
Author Name Unknown Organization [facility] Address [address] [place] [facility] [place] [address] Phone [phone] Care Team Providers Care Reinforcing [employer] Workers Name Role Phone Rafa Bergman MD Primary Care Provide r Reason for Visit * Reason Comments Medication Refill Encounter Details Date Type Department Care Team (Late st Contact Info) Description 05/11/2024 Refill Rheumatology [address] [place] [phone] Peter Le MD [address] [facility] [place] [address] Allergies Active Allergy Reactions Criticality Noted Date [...] goal LDL below 70,Coronary artery disease involving ramona coronary artery of ramona heart without angina pectoris TAKE ONE TABLET BY MOUTH IN THE MORNING 90 Tablet 3 02/29/2024 11:02 AM EST 01/10/20 24 Active Propranolol HCl 10 MG Oral Tablet (Inderal)Indicat ions:Sinus tachycardia,Tach y-chintan syndrome (HCC),Coronary artery disease involving ramona coronary artery of ramona heart without angina pectoris,Presenc e of cardiac [...] 90 Tablet 2 03/06/2024 5:37 PM EST 01/10/20 24 Active Vitamin B-12 1000 [...] TABLETS BY MOUTH EVERY DAY 135 Tablet 05/11/19 25 Active Allopurinol 300 MG Oral Tablet (Zyloprim) TAKE 1 & 1/2 TABLETS BY MOUTH EVERY DAY 135 Tablet 02/19/2024 2:12 PM EST 01/10/20 24 025 Discontin ued(Refil [...] S/P angioplasty with stent 11/27/2018 Atherosclerosis of ramona co ronary artery of ramona heart without angina pectoris 07/08/2018 Overview (11/21/2023): history of NSTEMI status post AMIE to LAD (culprit) and RCA, 04/28/2018 Assessment & Plan (01/24/2024 4:40 PM EDT): Cardiac rehab at [facility] 2x week Assessment & Plan (11/21/2023 5:32 [...] 09/13/2022 11/08/2023 Atherosclerosis of coronary artery of ramona heart without angina pectoris 09/10/2022 10/31/2022 Hypothyroidism [...] filter 02/28/2015 Atherosclerotic heart diseas e of ramona coronary artery with angina pectoris 11/2018 CKD [...] 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 Not on file Not on file documented as of this encounter Miscellaneous Notes * Telephone Encounter - Kate Bhatt RPh - 05/11/2024 4:54 PM EST Signed Prescriptions: Disp Refills Allopurinol 300 MG Oral Tablet (Zyloprim) 135 Ta*0 Sig: TAKE 1 & 1/2 TABLETS BY MOUTH EVERY DAY Authorizing Provider: PETER LE Ordering User: KATE BHATT * Telephone Encounter - Kate Bhatt RPh - 05/11/2024 4:49 PM EST Rheumatology: Refill Request(s) Per review of the refill parameters, Medication was given as a 3-month supply d/t Appt overdue- Upcoming appt 08/21/24 Kate Bhatt RPh [facility] Clinical Pharmacist Rheumatology Department 05/11/2024,4:50 PM documented in this encounter Plan of Treatment Upcoming Encounters Date Type Department Care Team (Late st Contact Info) Description 05/12/2024 1:00 PM EST Office Visit Cardiology, [facility] [address] [facility] [place] [address] Pricila Puga CRNP [address] [place], [place] [address] [address] 05/13/2024 4:00 PM EST [facility] Visit [facility] [place] [address] [facility] [place] [address] Olinda Briggs RN [address] [facility] [place] [address] 05/18/2024 10:00 AM EST Office Visit Neurology [facility] [address] [place] [address] Alfonso Manning MD 200 [facility] [place] [address] 06/22/2024 11:00 AM EDT Home Visit [facility] [place], [facility] [address] [facility] [place] [address] Leon Live PA-C [address] [facility] [place] [address] 06/25/2024 9:00 AM EDT Office Visit Family Medicine [address] [place] [phone] Raaf Bergman MD [address] [place] [address] [place] [address] 06/26/2024 11:30 AM EDT Office Visit Ophthalmology, [facility] [address] [facility] [place] [address] Pedro Tinsley DO [address] [place] [address] 07/06/2024 11:00 AM EDT [facility], [facility] [address] [place] [address] Leon Live PA-C [address] [place] [address] 07/21/2024 10:00 AM EDT Imaging Radiology [facility] [address] [place] [phone] 08/18/2024 10:20 AM EDT Laboratory Laboratory [address] [place] [phone] [address] [place] [address] 08/21/2024 3:00 PM EDT Office Visit Rheumatology [address] [place] [phone] José Miguel Cullen CRNP [address] [place] [address] [place] [address] 08/25/2024 3:30 PM EDT Office Visit Hematology/Oncology [facility] [place] [address] [place] [phone] Arianna Szymanski MD [address] [place] [address] 09/11/2024 12:50 PM EDT Office Visit Dermatology, Jesu Wilson [address] [place] [phone] Dasha Nelson PA-C [address] [place] [address] 10/05/2024 1:30 PM EDT Office Visit Cardiology, [facility] [address] [place] [address] Charles Ortega DO [address] [place] [address] Health Maintenance Due Date Last Done Comments Adult Wellness Visit 02/06/2018 02/06/2017 Depression Screening 07/17/2022 07/17/2021 COVID-19 Vaccine ( season) 2023 02/05/2022, 08/02/2021, 02/28/2021, Additional history exists Influenza Vaccine (FLU shot) (#1) 2023 04/19/2023, 01/30/2022, 12/28/2020, Additional history exists Albumin/Creatinine Ratio 02/13/2024 023, 03/21/2022, 04/19/2021, Additional history exists HbA1c 04/26/2024 04/26/2023, 03/02, 04/19/2021, Additional history exists CKD PHOS USE SMARTSET 03594 06/26/202405/31, 04/19/2021, 11/27/2019, Additional history exists DXA Scan 07/18/2024 07/18/2022, 06/30, 12/22/2019, Additional history exists GFR 08/16/2024 02/17/2024, 0808/2023, 06/27/2023, Additional history exists CKD HGB USE SMARTSET 95724 02/16/202502/16, 02/17/2024, 06/27/2023, Additional history exists TSH [...] D LEVEL ONCE IN A LIFETIME-USE SMARTSET# 86137 Completed 06/27/2023, 11/06/2021, 12/28/2019, Additional history exists HPV (Gardasil) Vaccine Aged Out No lo nger eligible based on patient's age to complete this topic MENINGOCOCCAL (MENACTRA/MENVEO) Aged Out No longer eligible based on patient's age to complete this topic documented as of this encounter Medical Devices Implanted Type Area Tool And Machine Maintainer Device Identifier Shelf Expiration Date Model / Serial / Lot Lens Intraoc 21.5 - [id number] - [id number] Implanted:Qty: 1 on 05/12/2019 by Yury Brady MD at OR [facility] Right: Eye [employer] 12/30/2023 [id number] / [id number] / [id number] Lens Intraoc 22.5 - [id number] - [id number] Implanted:Qty: 1 on 04/05/2020 by Yury Brady MD at OR [facility] Left: Eye [employer]OM[employer] 09/28/2024 [id number] / [id number] / [id number] documented as of this encounter Advance Directives Documents on File Type Date Recorded Patient Skin Care Specialist Expl anation Advance Directives and Living [...] Agen t (per Health Care Power of Radio Communication Coordinator document) Guille [facility] Adult Child [facility] Vika nicole (per Health Care Power of Radio Communication Coordinator document) [email or web address] Care Teams Reinforcing [employer] Re[employer] Workers Relationship Specialty Start Date End Date Rafa Bergman MD [address] [place] [address] [place] [address] PCP - General Family Medicine 04/19/21 documented as of this encounter
--- OUTSIDE RECORDS SUMMARY | 2024-07-24 00:13 | External Medical Summary | Summary of Care ---
Author Name Unknown Organization [facility] Address [address] [place] [address] Phone [phone] Care Team Providers Care Senior Mainframe Programmer Analyst Name Role Phone Rafa Bergman MD Primary Care Provide r Reason for Visit * Reason Onset Date Comments Appointment 04/29/2024 Encounter Details Date Type Department Care Team (Late st Contact Info) Description 04/29/2024 Telephone [facility] [address] [place] [address] Joy Marie, ASHLEY [address] [place] [address] Appointment Allergies Active Allergy Reactions Criticality Noted Date Comments Colchicine Diarrhea 06/16/2018 Daptomycin 01/05/2015 Shortness of breath Imipenem Edema airway High 01/05/2015 Metoprolol Low 01/23/2021 Other reaction(s): fatigue Zoledronic Acid 04/24/2012 Myalgias, fever, chills, vomiting x 2 days Sulfa Antibiotics 12/22/2002 Bactrim--itchy all over, eyes swollen documented as of this encounter (statuses as of 05/02/2024) Medications ASPIRIN 81 MG PO TABS Take [...] goal LDL below 70,Coronary artery disease involving [place] coronary artery of [place] heart without angina pectoris TAKE ONE TABLET BY MOUTH IN THE MORNING 90 Tablet 3 02/29/2024 11:02 AM EST 4 Active Propranolol HCl 10 MG Oral Tablet (Inderal)Indicat ions:Sinus tachycardia,Tach y-chintan syndrome (HCC),Coronary artery disease involving [place] coronary artery of [place] heart without angina pectoris,Presenc e of cardiac [...] as of this encounter (statuses as of 05/02/2024) Active Problems Problem Noted Date Diagnosed Date [...] S/P angioplasty with stent 11/27/2018 Atherosclerosis of [place] co ronary artery of [place] heart without angina pectoris 07/08/2018 Overview (11/21/2023): [...] as of this encounter (statuses as of 05/02/2024) Resolved Problems Problem Noted Date Diagnosed Date Resolved Date Purulent endophthalmitis of right eye 01/03/2023 11/08/2023 Other pulmonary embolism wit h acute cor pulmonale 10/01/2022 04/26/2023 Overview (04/26/2023): history Medical home patient encounter 09/13/2022 11/08/2023 Atherosclerosis of coronary artery of [place] heart without angina pectoris 09/10/2022 10/31/2022 Hypothyroidism [...] filter 02/28/2015 Atherosclerotic heart diseas e 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 She was informed by Leon that someone would give her a call with appt. No appts listed. No CLERK ANALYST task created to schedule another appt. I do not see any mention of a follow up appt in Leon's note from 04/16/2024 Routing to Leon to clarify when he would like to see pt again. Will call pt once response received. documented in this encounter Plan of Treatment Upcoming Encounters Date Type Department Care Team (Late st Contact Info) Description 05/07/2024 3:00 PM EST Office Visit Ophthalmology, [facility] [address] [facility] [place] [address] Pedro Tinsley DO [address] [facility] [place] [address] 05/12/2024 1:00 PM EST Office Visit Cardiology, [facility] [address] [facility] [place] [address] Pricila Puga CRNP [address] [place] [address] [place] [address] 05/13/2024 4:00 PM EST [facility] [address] [place] [address] Olinda Briggs, CHRISTINA [address] [place] [address] 05/18/2024 10:00 AM EST Office Visit Neurology [facility] [address] [place] [address] Alfonso Manning MD [address] [place] [address] 06/25/2024 9:00 AM EDT Office Visit Family Medicine [address] [place] [phone] Rafa Bergman MD [address] [place] [address] [place] [address] 07/21/2024 10:00 AM EDT Imaging Radiology [facility] [address] [place] [phone] 08/18/2024 10:20 AM EDT Laboratory Laboratory [address] [place] [phone] [place] [address] 08/21/2024 3:00 PM EDT Office Visit Rheumatology [address] [place] [phone] José Miguel Cullen CRNP [facility] [place] [address] 08/25/2024 3:30 PM EDT Office Visit Hematology/Oncology [facility] [address] [place] [phone] Arianna Szymanski MD [address] [place] [address] 09/11/2024 12:50 PM EDT Office Visit Dermatology, [facility]n Gar[facility] [address] [place] [address] Dasha Nelson PA-C [address] [place] [address] 10/05/2024 1:30 PM EDT Office Visit Cardiology, [facility] [address] [place] [address] Charles Ortega DO [address] [place] [address] Health Maintenance Due Date Last Done Comments Adult Wellness Visit 02/06/2018 02/06/2017 Depression Screening 07/17/2022 07/17/2021 COVID-19 Vaccine ( season) 2023 02/05/2022, 08/02/2021, 02/28/2021, Additional history exists Influenza Vaccine (FLU shot) (#1) 2023 04/19/2023, 01/30/2022, 12/28/2020, Additional history exists Albumin/Creatinine Ratio 02/13/2024 023, 03/21/2022, 04/19/2021, Additional history exists HbA1c 04/26/2024 04/26/2023, 03/02, 04/19/2021, Additional history exists CKD PHOS USE SMARTSET 34365 06/26/202405/31, 04/19/2021, 11/27/2019, Additional history exists DXA Scan 07/18/2024 07/18/2022, 06/30, 12/22/2019, Additional history exists GFR 08/16/2024 02/17/2024, 08/0 08/2023, 06/27/2023, Additional history exists CKD HGB USE SMARTSET 35834 02/16/202502/16, 02/17/2024, 06/27/2023, Additional history exists TSH [...] D LEVEL ONCE IN A LIFETIME-USE SMARTSET# [id number] Completed 06/27/2023, 11/06/2021, 12/28/2019, Additional history exists HPV (Gardasil) Vaccine Aged Out No lo nger eligible based on patient's age to complete this topic MENINGOCOCCAL (MENACTRA/MENVEO) Aged Out No longer eligible based on patient's age to complete this topic documented as of this encounter Medical Devices Implanted Type Area Wind Field Manager Device Identifier Shelf Expiration Date Model / Serial / Lot Lens Intraoc 21.5 - [id number] - [id number] Implanted:Qty: 1 on 05/12/2019 by Yury Brady MD at OR [facility] Right: Eye [employer] 12/30/2023 [id number] / [id number] / [id number] Lens Intraoc 22.5 - [id number] - [id number] Implanted:Qty: 1 on 04/05/2020 by Yury Brady MD at OR [facility] Left: Eye [employer]OM[employer] 09/28/2024 [id number] / [id number] / [id number] documented as of this encounter Advance Directives Documents on File Type Date Recorded Patient Senior Application Security Consultant Expl anation Advance Directives and Living [...] Agen t (per Health Care Power of Manuscripts Archivist document) Guille Urban Adult Child Health Care Agen t (per Health Care Power of Manuscripts Archivist document) .c om Care Teams Senior Mainframe Programmer Analyst Relationship Specialty Start Date End Date Rafa Bergman MD [address] [place] [address] [place] [phone] PCP - General Family Medicine 04/19/21 documented as of this encounter
--- OUTSIDE RECORDS SUMMARY | 2024-07-24 00:14 | External Medical Summary | Summary of Care ---
Author Name Unknown Organization [facility] Address [address] [place] [facility] [place] [address] Phone [phone] Care Team Providers Care Laborer Syrup Machine Name Role Phone Rafa Bergman MD Primary Care Provide r Reason for Visit * Reason Comments Outpatient Testing Encounter Details Date Type Department Care Team (Late st Contact Info) Description 04/24/2024 8:50 AM EST Laboratory Laboratory [address] [place] [phone] [place] [address] Hypothyroidism (acquired) Allergies Active Allergy Reactions Criticality Noted Date Comments Colchicine Diarrhea 06/16/2018 Daptomycin 01/05/2015 Shortness of breath Imipenem Edema airway High 01/05/2015 Metoprolol Low 01/23/2021 Other reaction(s): fatigue Zoledronic Acid 04/24/2012 Myalgias, fever, chills, vomiting x 2 days Sulfa Antibiotics 12/22/2002 Bactrim--itchy all over, eyes swollen documented as of this encounter (statuses as of 04/24/2024) Medications ASPIRIN 81 MG PO TABS Take [...] as of this encounter (statuses as of 04/24/2024) Active Problems Problem Noted Date Diagnosed Date [...] (01/24/2024 4:40 PM EDT): Cardiac rehab at [facility] 2x week Assessment & Plan [...] as of this encounter (statuses as of 04/24/2024) Resolved Problems Problem Noted Date Diagnosed Date [...] as of this encounter (statuses as of 04/24/2024) Immunizations Name Administration Dates Next Due COVID-19 [...] 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 [place] [address] Olinda Briggs, CHRISTINA [facility] [place] [address] 05/07/2024 3:00 PM EST Office Visit Ophthalmology, [facility] [address] [facility] [place] [address] Pedro Tinsley DO 132 [facility] [place] [address] 05/12/2024 1:00 PM EST Office Visit Cardiology, [facility] [address] [facility] [place] [address] Pricila Puga, ACCOUNT SUPPORT ASSOCIATE [address] [facility] [place] [address] 05/18/2024 10:00 AM EST Office Visit Neurology [facility] [address] [facility] [place] [address] Alfonso Manning MD [address] [place] [address] 06/25/2024 9:00 AM EDT Office Visit Family Medicine [address] [place] [phone] Rafa Bergman MD [address] [place] [address] [place] [address] 07/21/2024 10:00 AM EDT Imaging Radiology [facility] [address] [place] [phone] 08/18/2024 10:20 AM EDT Laboratory Laboratory [address] [place] [phone] [place] [address] 08/21/2024 3:00 PM EDT Office Visit Rheumatology [address] [place] [phone] José Miguel Cullen CRNP [address] [place] [address] [place] [address] 08/25/2024 3:30 PM EDT Office Visit Hematology/Oncology [facility] [address] [place] [phone] Arianna Szymanski MD [address] [place] [address] 09/11/2024 12:50 PM EDT Office Visit Dermatology, Jesu Wilson [address] [place] [address] Dasha Nelson, PADelaneyC 27 [place] [phone] 10/05/2024 1:30 PM EDT Office Visit Cardiology, [facility] [address] [place] [address] Charles Ortega DO [address] [place] [address] Pending Results Name Type Priority Associated Diagnoses Date /Time TSH Lab Routine Hypothyroidism (acquired) 04/24/2024 8:43 AM EST Health Maintenance Due Date Last Done Comments Adult Wellness Visit 02/06/2018 02/06/2017 Depression Screening 07/17/2022 07/17/2021 COVID-19 Vaccine ( season) 2023 02/05/2022, 08/02/2021, 02/28/2021, Additional history exists Influenza Vaccine (FLU shot) (#1) 2023 04/19/2023, 01/30/2022, 12/28/2020, Additional history exists Albumin/Creatinine Ratio 02/13/2024 023, 03/21/2022, 04/19/2021, Additional history exists HbA1c 04/26/2024 04/26/2023, 03/02, 04/19/2021, Additional history exists CKD PHOS USE SMARTSET 75027 06/26/202405/31, 04/19/2021, 11/27/2019, Additional history exists DXA Scan 07/18/2024 07/18/2022, 06/30, 12/22/2019, Additional history exists GFR 08/16/2024 02/17/2024, 08/0 08/2023, 06/27/2023, Additional history exists CKD HGB USE SMARTSET 52019 02/16/202502/16, 02/17/2024, 06/27/2023, Additional history exists TSH 04/08/2025 04/08/2024, 10/30, 10/01/2023, Additional history exists DTap/Tdap Vaccines (3 - Td or Tdap) 09/30/2033 10/01/2023, 11/03/2007 Hepatitis B Vaccine Completed 03/18/2009, 06/14/2008, 05/12/2008 Pneumococcal Vaccine: 50+ Years Completed 03/28/2015, 03/20/2010, 11/15/2004 RETIRED - COLONOSCOPY-EVERY 5 YRS AGES 18-100 Discontinued 02/27/2017, 02/27/2017, 10/17/2004 Zoster Vaccines Completed 06/12/2021, 02/01, 11/04/2012 VITAMIN D LEVEL ONCE IN A LIFETIME-USE SMARTSET# [id number] Completed 06/27/2023, 11/06/2021, 12/28/2019, Additional history exists HPV (Gardasil) Vaccine Aged Out No lo nger eligible based on patient's age to complete this topic MENINGOCOCCAL (MENACTRA/MENVEO) Aged Out No longer eligible based on patient's age to complete this topic documented as of this encounter Medical Devices Implanted Type Area Gas Station Service Attendant Device Identifier Shelf Expiration Date Model / Serial / Lot Lens Intraoc 21.5 - [id number] - [id number] Implanted:Qty: 1 on 05/12/2019 by Yury Brady MD at OR [facility] Right: Eye [employer]OM[employer] 12/30/2023 [id number] / [id number] / [id number] Lens Intraoc 22.5 - [id number] - [id number] Implanted:Qty: 1 on 04/05/2020 by Yury Brady MD at OR [facility] Left: Eye [employer]CH [employer] LOMB 09/28/2024 [id number] / [id number] / [id number] documented as of this encounter Visit Diagnoses Diagnosis Hypertensive kidney disease with stage 3a chronic kidney disease- Primary Atherosclerosis of [place] coronary artery of [place] heart without angina pectoris Dyslipidemia, goal LDL below 70 Other and unspecified hyperlipidemia History of pulmonary embolism Personal history of pulmonary embolism Tachy-chintan syndrome (HCC) Sinoatrial node dysfunction S/P placement of cardiac pacemaker Cardiac pacemaker in situ Arthralgia of right hip Gastro-esophageal reflux disease with esophagitis, without bleeding Sinus tachycardia Other specified cardiac dysrhythmias Coronary artery disease involving [place] coronary artery of [place] heart without angina pectoris Presence of cardiac pacemaker Cardiac pacemaker in situ Palpitations HTN, goal below 140/90 Unspecified essential hypertension Hypertensive kidney disease with stage 3a chronic kidney disease- Primary Dyslipidemia, goal LDL below 70 Other and unspecified hyperlipidemia Gastro-esophageal reflux disease with esophagitis, without bleeding Atherosclerosis of [place] coronary artery of [place] heart without angina pectoris Advanced care planning/counseling [...] 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 Hypothyroidism (acquired) Unspecified hypothyroidism documented in this encounter Advance Directives Documents on File Type Date Recorded Patient Tie Up Worker Expl anation Advance Directives and Living Will 03/11/2018 Krissy WallaceEsthersofie Wilmar ADVANCE DIR ECTIVE * Full Code [...] Agen t (per Health Care Power of Rn Digestive document) Guille Urban Adult Child Health Care Agen t (per Health Care Power of Rn Digestive document) [email or web address] Care Teams Laborer Syrup Machine Relationship Specialty Start Date End Date Rafa Bergman MD [address] [place] [address] [place] [phone] PCP - General Family Medicine 04/19/21 documented as of this encounter
--- OUTSIDE RECORDS SUMMARY | 2024-07-24 00:14 | External Medical Summary | Summary of Care ---
Author Name Unknown Organization [facility] Address [address] [facility] [place] [address] Phone [phone] Care Team Providers Care Keyboard Operator Name Role Phone Rafa Bergman MD Primary Care Provide r Reason for Visit * Reason Comments Outpatient Testing Encounter Details Date Type Department Care Team (Late st Contact Info) Description 04/08/2024 10:50 AM EST Laboratory Laboratory [address] [place] [phone] [place] [address] Malaise and fatigue Allergies Active Allergy Reactions Criticality Noted Date Comments Colchicine Diarrhea 06/16/2018 Daptomycin 01/05/2015 Shortness of breath Imipenem Edema airway High 01/05/2015 Metoprolol Low 01/23/2021 Other reaction(s): fatigue Zoledronic Acid 04/24/2012 Myalgias, fever, chills, vomiting x 2 days Sulfa Antibiotics 12/22/2002 Bactrim--itchy all over, eyes swollen documented as of this encounter (statuses as of 04/08/2024) Medications ASPIRIN 81 MG PO TABS Take [...] Tablet in the evening. 90 Tablet 3 01/29/2024 6:52 AM EDT 4 Active Rosuvastatin Calcium 5 MG Oral Tablet (Crestor)Indicat ions:Dyslipidemi a, goal LDL below 70,Coronary artery disease involving [place] coronary artery of [place] heart without angina pectoris TAKE ONE TABLET BY MOUTH IN THE MORNING 90 Tablet 3 02/29/2024 11:02 AM EST 4 Active Propranolol HCl 10 MG Oral Tablet (Inderal)Indicat ions:Sinus tachycardia,Tach y-chintan syndrome (HCC),Coronary artery disease involving [place] coronary artery of [place] heart without angina pectoris,Presenc e of cardiac pacemaker,Palpit ations,HTN, goal below 140/90 Take one-half Tablet by mouth in the morning and before bedtime. 90 Tablet 3 01/11/2024 8:04 AM EDT 4 Active Additional Information Patient taking differently:5 [...] morning. In the morning.. 90 Tablet 1 01/18/2024 2:38 PM EDT 4 Active Ondansetron HCl 4 MG Oral TabletIndication s:Nausea Take 1 Tablet by mouth every 8 hours as needed for Nausea. 30 Tablet 4 Active Famotidine 20 MG Oral Tablet (Pepcid) Take 1 Tablet by mouth at bedtime. 90 Tablet 3 03/28/2024 12:49 PM EST 4 Active Magnesium Oxide 400 MG Oral Capsule Take 1 Capsule by mouth in the morning. 30 Capsule 11 4 Active Riboflavin 400 MG Oral Tablet Take 1 Tablet by mouth in the morning. 30 Tablet 11 4 Active dilTIAZem HCl ER 360 MG Oral Tablet Extended Release 24 HourIndications: HTN, goal below 140/90,Tachy-bra dy syndrome (HCC) Take 1 Tablet by mouth in the morning. 90 Tablet 2 4 Active Hospital, Clinic, or Other Facility [...] as of this encounter (statuses as of 04/08/2024) Active Problems Problem Noted Date Diagnosed Date Nevus of 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 History of FL (myocardial infarction) 11/27/2022 History of pulmonary embolism 11/27/2022 Assessment & Plan (11/21/2023 5:30 PM EDT): Continues on eliquis S/P placement of cardiac pacemaker 10/01/2022 Tachy-chintan syndrome 09/10/2022 Gastro-esophageal reflux dis ease [...] - Per CKD protocol Assessment & Plan (01/24/2024 4:39 PM EDT): Symptomatic hypotension at times Will hold spironolactone for now, encourage compression stockings for edema Continue propanolol and verapamil Assessment & Plan (11/21/2023 5:30 PM EDT): BP stable on verapamil, aldactone, propanolol S/P angioplasty with stent 11/27/2018 Atherosclerosis of [place] co ronary artery of [place] heart without angina pectoris 07/08/2018 Overview (11/21/2023): [...] 09/15/2013 Dyslipidemia, goal LDL below 70 09/15/2013 Assessment & Plan (01/24/2024 4:40 PM EDT): Continue statin Assessment & Plan (11/21/2023 5:31 PM EDT): LDL at goal, continue statin HTN, goal below 140/90 03/02/2013 Senile osteoporosis 05/14/2008 documented as of this encounter (statuses as of 04/08/2024) Resolved Problems Problem Noted Date Diagnosed Date Resolved Date Purulent endophthalmitis of right eye 01/03/2023 11/08/2023 Other pulmonary embolism wit h acute cor pulmonale 10/01/2022 04/26/2023 Overview (04/26/2023): history Medical home patient encounter 09/13/2022 11/08/2023 Atherosclerosis of coronary artery of [place] [...] as of this encounter (statuses as of 04/08/2024) Immunizations Name Administration Dates Next Due COVID-19 [...] 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 Not on file Not on file documented as of this encounter Plan of Treatment Upcoming Encounters Date Type Department Care Team (Late st Contact Info) Description 04/20/2024 8:30 AM EST [facility] [address] [place] [address] Olinda Briggs RN [address] [place] [address] 04/30/2024 11:00 AM EST [facility] Visit [facility] [address] [place] [address] Leon Live PA-C [address] [place] [address] 05/07/2024 3:00 PM EST Office Visit Ophthalmology, [facility] [address] [place] [address] Pedro Tinsley DO [address] [place] [address] 05/12/2024 1:00 PM EST Office Visit Cardiology, [facility] [address] [place] [address] Pricila Puga CRNP [address] [place], [place] [address] [phone] 05/18/2024 11:20 AM EST Office Visit Neurology [facility] [address] [place] [address] Alfonso Manning MD [address] [place] [address] 06/25/2024 9:00 AM EDT Office Visit Family Medicine [address] [place] [phone] Rafa Bergman MD [address] [place] [address] [place] [address] 07/21/2024 10:00 AM EDT Imaging Radiology [facility] [address] [place] [phone] 08/18/2024 10:20 AM EDT Laboratory Laboratory [address] [place] [phone] [address] [place] [address] 08/21/2024 3:00 PM EDT Office Visit Rheumatology [address] [place] [phone] José Miguel Cullen CRNP [address] [place] [address] [place] [address] 08/25/2024 3:30 PM EDT Office Visit Hematology/Oncology [facility] [address] [place] [phone] Arianna Szymanski MD [address] [place] [address] 09/11/2024 12:50 PM EDT Office Visit Dermatology, Jesu Wilson [address] [facility] [address] [place] [address] Dasha Nelson PA-C [address] [place] [address] 10/05/2024 1:30 PM EDT Office Visit Cardiology, [facility] [address] [place] [address] Charles Ortega, [address] [place] [address] Pending Results Name Type Priority Associated Diagnoses Date /Time TSH WITH FREE T4 IF INDICATED Lab Routine Malaise and fatigue 04/08/2024 11:07 AM EST Health Maintenance Due Date Last Done Comments Adult Wellness Visit 02/06/2018 02/06/2017 Depression Screening 07/17/2022 07/17/2021 COVID-19 Vaccine ( season) 2023 02/05/2022, 08/02/2021, 02/28/2021, Additional history exists Influenza Vaccine (FLU shot) (#1) 2023 04/19/2023, 01/30/2022, 12/28/2020, Additional history exists Albumin/Creatinine Ratio 02/13/2024 023, 03/21/2022, 04/19/2021, Additional history exists HbA1c 04/26/2024 04/26/2023, 03/02, 04/19/2021, Additional history exists CKD PHOS USE SMARTSET 88912 06/26/202405/31, 04/19/2021, 11/27/2019, Additional history exists DXA Scan 07/18/2024 07/18/2022, 06/30, 12/22/2019, Additional history exists GFR 08/16/2024 02/17/2024, 08/0 08/2023, 06/27/2023, Additional history exists TSH 11/14/2024 11/15/2023, 07/0 05/2023, 08/21/2023, Additional history exists CKD HGB USE SMARTSET 08310 02/16/202502/16, 02/17/2024, 06/27/2023, Additional history exists DTap/Tdap Vaccines (3 - Td or Tdap) 09/30/2033 10/01/2023, 11/03/2007 Hepatitis B Vaccine Completed 03/18/2009, 06/14/2008, 05/12/2008 Pneumococcal Vaccine: 50+ Years Completed 03/28/2015, 03/20/2010, 11/15/2004 RETIRED - COLONOSCOPY-EVERY 5 YRS AGES 18-100 Discontinued 02/27/2017, 02/27/2017, 10/17/2004 Zoster Vaccines Completed 06/12/2021, 02/01, 11/04/2012 VITAMIN D LEVEL ONCE IN A LIFETIME-USE SMARTSET# [id number] Completed 06/27/2023, 11/06/2021, 12/28/2019, Additional history exists HPV (Gardasil) Vaccine Aged Out No lo nger eligible based on patient's age to complete this topic MENINGOCOCCAL (MENACTRA/MENVEO) Aged Out No longer eligible based on patient's age to complete this topic documented as of this encounter Medical Devices Implanted Type Area Residential Glazier Device Identifier Shelf Expiration Date Model / Serial / Lot Lens Intraoc 21.5 - [id number] - [id number] Implanted:Qty: 1 on 05/12/2019 by Yury Brady MD at [facility] Right: Eye [employer] 12/30/2023 [id number] / [id number] / [id number] Lens Intraoc 22.5 - [id number] - [id number] Implanted:Qty: 1 on 04/05/2020 by Yury Brady MD at OR [facility] Left: Eye [employer] LOMB 09/28/2024 [id number] / [id number] / [id number] documented as of this encounter Visit Diagnoses Diagnosis Hypertensive kidney disease with stage 3a chronic kidney disease- Primary Atherosclerosis of [place] coronary artery of [place] heart without angina pectoris Dyslipidemia, goal LDL below 70 Other and unspecified hyperlipidemia History of pulmonary embolism Personal history of pulmonary embolism Tachy-chintan syndrome (HCC) Sinoatrial node dysfunction S/P placement of cardiac pacemaker Cardiac pacemaker in situ Arthralgia of right hip Gastro-esophageal reflux disease with esophagitis, without bleeding Sinus tachycardia Other specified cardiac dysrhythmias Coronary artery disease involving [place] coronary artery of [place] heart without angina pectoris Presence of cardiac pacemaker Cardiac pacemaker in situ Palpitations HTN, goal below 140/90 Unspecified essential hypertension Hypertensive kidney disease with stage 3a chronic kidney disease- Primary Dyslipidemia, goal LDL below 70 Other and unspecified hyperlipidemia Gastro-esophageal reflux disease with esophagitis, without bleeding Atherosclerosis of [place] coronary artery of [place] heart without angina pectoris Malaise and fatigue Other malaise and fatigue documented in this encounter Advance Directives Documents on File Type Date Recorded 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
--- OUTSIDE RECORDS SUMMARY | 2024-07-24 00:14 | External Medical Summary | Summary of Care ---
Author Name Unknown Organization [facility] Address [address] [place] [address] Phone [phone] Care Team Providers Care Trucksmith Name Role Phone Rafa Bergman MD Primary Care Provide r Encounter Details Date Type Department Care Team (Late st Contact Info) Description 04/20/2024 Population Health External Data Unspecified Department Allergies Active Allergy Reactions Criticality Noted Date Comments Colchicine Diarrhea 06/16/2018 Daptomycin 01/05/2015 Shortness of breath Imipenem Edema airway High 01/05/2015 Metoprolol Low 01/23/2021 Other reaction(s): fatigue Zoledronic Acid 04/24/2012 Myalgias, fever, chills, vomiting x 2 days Sulfa Antibiotics 12/22/2002 Bactrim--itchy all over, eyes swollen documented as of this encounter (statuses as of 04/20/2024) Medications ASPIRIN 81 MG PO TABS Take [...] goal LDL below 70,Coronary artery disease involving [place] coronary artery of [place] heart without angina pectoris TAKE ONE TABLET BY MOUTH IN THE MORNING 90 Tablet 3 02/29/2024 11:02 AM EST 4 Active Propranolol HCl 10 MG Oral Tablet (Inderal)Indicat ions:Sinus tachycardia,Tach y-chintan syndrome (HCC),Coronary artery disease involving [place] coronary artery of [place] heart without angina pectoris,Presenc e of cardiac [...] as of this encounter (statuses as of 04/20/2024) Active Problems Problem Noted Date Diagnosed Date [...] S/P angioplasty with stent 11/27/2018 Atherosclerosis of [place] co ronary artery of [place] heart without angina pectoris 07/08/2018 Overview (11/21/2023): history of NSTEMI status post AMIE to LAD (culprit) and RCA, 04/28/2018 Assessment & Plan (01/24/2024 4:40 PM EDT): Cardiac rehab at [facility] 2x week Assessment & [...] as of this encounter (statuses as of 04/20/2024) Resolved Problems Problem Noted Date Diagnosed Date Resolved Date Purulent endophthalmitis of right eye 01/03/2023 11/08/2023 Other pulmonary embolism wit h acute cor pulmonale 10/01/2022 04/26/2023 Overview (04/26/2023): history Medical home patient encounter 09/13/2022 11/08/2023 Atherosclerosis of coronary artery of [place] heart without angina pectoris 09/10/2022 10/31/2022 Hypothyroidism [...] filter 02/28/2015 Atherosclerotic heart diseas e of [place] coronary artery with angina pectoris 11/2018 CKD (chronic kidney disease) stage 2, GFR 60-89 ml/min 03/12/2019 documented as of this encounter (statuses as of 04/20/2024) Immunizations Name Administration Dates Next Due COVID-19 [...] 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 [place] [address] Pedro Tinsley DO [address] [place] [address] 05/12/2024 1:00 PM EST Office Visit Cardiology, [facility] 132 [facility] [place] [address] Pricila Puga CRNP [address] [place] [address] 05/18/2024 10:00 AM EST Office Visit Neurology [facility] [address] [facility] [place] [address] Alfonso Manning MD 200 [facility] [place] [address] 06/25/2024 9:00 AM EDT Office Visit Family Medicine [address] [place] [phone] Rafa Bergman MD [address] [place] [address] [place] [address] 07/21/2024 10:00 AM EDT Imaging Radiology [facility] 132 [facility] [place] [phone] 08/18/2024 10:20 AM EDT Laboratory Laboratory [address] [place] [phone] [place] [address] 08/21/2024 3:00 PM EDT Office Visit Rheumatology [address] [place] [phone] José Miguel Cullen CRNP [address] [place] [address] [place] [address] 08/25/2024 3:30 PM EDT Office Visit Hematology/Oncology [facility] [address] [facility] [place] [phone] Arianna Szymanski MD 200 [facility] [place] [address] 09/11/2024 12:50 PM EDT Office Visit Dermatology, Jesu Wilson [address] [place] [address] Dasha Nelson, PADelaneyC [address] [place] [address] 10/05/2024 1:30 PM EDT Office Visit Cardiology, [facility] [address] [place] [address] Charles Ortega DO [address] [place] [address] Health Maintenance Due Date Last Done Comments Adult Wellness Visit 02/06/2018 02/06/2017 Depression Screening 07/17/2022 07/17/2021 COVID-19 Vaccine ( season) 2023 02/05/2022, 08/02/2021, 02/28/2021, Additional history exists Influenza Vaccine (FLU shot) (#1) 2023 04/19/2023, 01/30/2022, 12/28/2020, Additional history exists Albumin/Creatinine Ratio 02/13/2024 023, 03/21/2022, 04/19/2021, Additional history exists HbA1c 04/26/2024 04/26/2023, 03/02, 04/19/2021, Additional history exists CKD PHOS USE SMARTSET 12325 06/26/202405/31, 04/19/2021, 11/27/2019, Additional history exists DXA Scan 07/18/2024 07/18/2022, 06/30, 12/22/2019, Additional history exists GFR 08/16/2024 02/17/2024, 08/2023, 06/27/2023, Additional history exists CKD HGB USE SMARTSET 79350 02/16/202502/16, 02/17/2024, 06/27/2023, Additional history exists TSH [...] D LEVEL ONCE IN A LIFETIME-USE SMARTSET# 06397 Completed 06/27/2023, 11/06/2021, 12/28/2019, Additional history exists HPV (Gardasil) Vaccine Aged Out No lo nger eligible based on patient's age to complete this topic MENINGOCOCCAL (MENACTRA/MENVEO) Aged Out No longer eligible based on patient's age to complete this topic documented as of this encounter Medical Devices Implanted Type Area Karate Teacher Device Identifier Shelf Expiration Date Model / Serial / Lot Lens Intraoc 21.5 - [id number] - [id number] Implanted:Qty: 1 on 05/12/2019 by Yury Brady MD at OR [facility] Right: Eye [employer] 12/30/2023 [id number] / [id number] / [id number] Lens Intraoc 22.5 - [id number] - [id number] Implanted:Qty: 1 on 04/05/2020 by Yury Brady MD at OR [facility] Left: Eye [employer]OM[employer] 09/28/2024 [id number] / [id number] / [id number] documented as of this encounter Advance Directives Documents on File Type Date Recorded 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
--- OUTSIDE RECORDS SUMMARY | 2024-07-24 00:14 | External Medical Summary ---
Author Name Unknown Address Unknown Organization K01:[facility]ORY [facility] - [address] [place] [address] Laboratory Report Ordering Provider Test Date Status PADMAGEECHELLY BARBEREUGENIE 04/24/2024 08:43:46 Marion l Observation Date Value Abnormality Reference (Units ) Status TSH 04/24/2024 08:43:46 2.16 0.27-4.20 (uIU/mL) Final Performing Location LABORATORY [facility] - [address] [place] [address]
--- OUTSIDE RECORDS SUMMARY | 2024-07-24 00:14 | External Medical Summary | Summary of Care ---
Author Name Unknown Organization [facility] Address [address] [facility] [place] [address] Phone [phone] Care Team Providers Care Border Guard Name Role Phone Rafa Bergman MD Primary Care Provide r Encounter Details Date Type Department Care Team (Late st Contact Info) Description 04/16/2024 11:00 AM EST [facility] [address] [place] [address] Leon Live PA-C [address] [place] [address] Advanced care planning/counseling discussion*; Hypertensive kidney disease with stage 3a chronic kidney disease (HCC); History of [place] (myocardial infarction); Tachy-chintan syndrome (HCC); Dyslipidemia, goal LDL below 70; Migraine without aura and without status migrainosus, not intractable; Hypothyroidism (acquired); Senile osteoporosis; 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 Allergies Active Allergy Reactions Criticality Noted Date Comments Colchicine Diarrhea 06/16/2018 Daptomycin 01/05/2015 Shortness of breath Imipenem Edema airway High 01/05/2015 Metoprolol Low 01/23/2021 Other reaction(s): fatigue Zoledronic Acid 04/24/2012 Myalgias, fever, chills, vomiting x 2 days Sulfa Antibiotics 12/22/2002 Bactrim--itchy all over, eyes swollen documented as of this encounter (statuses as of 04/16/2024) Medications ASPIRIN 81 MG PO TABS Take [...] goal LDL below 70,Coronary artery disease involving tazlina coronary artery of tazlina heart without angina pectoris TAKE ONE TABLET BY MOUTH IN THE MORNING 90 Tablet 3 02/29/2024 11:02 AM EST 4 Active Propranolol HCl 10 MG Oral Tablet (Inderal)Indicat ions:Sinus tachycardia,Tach y-chintan syndrome (HCC),Coronary artery disease involving tazlina coronary artery of tazlina heart without angina pectoris,Presenc e of cardiac [...] in the morning. 90 Tablet 3 5 Active Magnesium Oxide -Mg Supplement 400 MG Oral Capsule (Magnesium Extra Strength) Take 1 capsule by mouth in the morning. 90 Capsule 3 5 Active Hospital, Clinic, or Other Facility [...] as of this encounter (statuses as of 04/16/2024) Active Problems Problem Noted Date Diagnosed Date [...] S/P angioplasty with stent 11/27/2018 Atherosclerosis of tazlina co ronary artery of tazlina heart without angina pectoris 07/08/2018 Overview (11/21/2023): [...] as of this encounter (statuses as of 04/16/2024) Resolved Problems Problem Noted Date Diagnosed Date Resolved Date Purulent endophthalmitis of right eye 01/03/2023 11/08/2023 Other pulmonary embolism wit h acute cor pulmonale 10/01/2022 04/26/2023 Overview (04/26/2023): history Medical home patient encounter 09/13/2022 11/08/2023 Atherosclerosis of coronary artery of tazlina heart without angina pectoris 09/10/2022 10/31/2022 Hypothyroidism [...] filter 02/28/2015 Atherosclerotic heart diseas e of tazlina coronary artery with angina pectoris 11/2018 CKD (chronic kidney disease) stage 2, GFR 60-89 ml/min 03/12/2019 documented as of this encounter (statuses as of 04/16/2024) Immunizations Name Administration Dates Next Due COVID-19 [...] 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 [facility] Provider Visit Assessment and Plan Assessment & Plan Hypertensive kidney disease with stage 3a chronic kidney disease (HCC) BP stable Continue propanolol and diltiazem History of [place] (myocardial infarction) history of NSTEMI status post AMIE to LAD (culprit) and RCA, 04/28/2018 Currently in cardiac rehab Tachy-chintan syndrome (HCC) status post pacemaker implantation 08/19/2019 Dyslipidemia, goal LDL below 70 Ldl at goal, continue statin Migraine without aura and without status migrainosus, not intractable Continue magnesium and riboflavin Reports gabapentin was offered by neurology, will reach out to neurology regarding starting Hypothyroidism (acquired) Continue current synthroid Repeat labs scheduled Senile osteoporosis Continue prolia 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 Follows with ophthalmology Additional Medical Decision Making: Patient has in-law suit in home of daughter and ERIN Independent with ADLs Ambulates independently Manages own medications Willing to try gabapentin for ongoing headaches, patient to reach out to neurology Scheduled appointments in the next 60 days: Future Appointments-next 60 days Date/Time Provider Specialty Dept Phone 04/16/2024 11:00 AM Leon Live PA-C [facility] [phone] 05/05/2024 2:30 PM Olinda Briggs RN [facility] [phone] 05/07/2024 3:00 PM Pedro Tinsley DO Ophthalmology [phone] 05/12/2024 1:00 PM (Arrive by 12:45 PM) Pricila Puga CRNP Cardiology [phone] 05/18/2024 11:20 AM (Arrive by 11:05 AM) Alfonso Manning MD Neurology [phone] 06/25/2024 9:00 AM (Arrive by 8:45 AM) Rafa Bergman MD Family Medicine [phone] 07/21/2024 10:00 AM [facility] Radiology [phone] 08/18/2024 10:20 AM Cielo Marvin [facility] [phone] 08/21/2024 3:00 PM (Arrive by 2:45 PM) José Miguel Cullen CRNP Rheumatology [phone] 08/25/2024 3:30 PM (Arrive by 3:15 PM) Arianna Szymanski MD Hematology Oncology [phone] 09/11/2024 12:50 PM (Arrive by 12:35 PM) Dasha Nelson PA-C Dermatology [phone] 10/05/2024 1:30 PM (Arrive by 1:15 PM) Charles Ortega DO Cardiology [phone] A total of 30 minutes was spent face to face (via video-based telemedicine if designated as a telemedicine visit) Subjective Subjective Is this a Telemedicine Visit? No, this is an Home Visit. Reason For [facility] Visit: Follow-Up Current Concerns: Rehana Moran is a 79 year old female seen today for a [facility] provider visit. 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 Today's concerns are: Continues to have intermittent headaches Following with neurology recently Added magnesium and riboflavin, has not noticed much change yet Also recently switched from verapamil to diltiazem due to concerns for side effects Recently offered to start gabapentin, but hesitant due to side effects Continues to participate in cardiac rehab at [facility] Overall feeling improved since starting Denies increased SOB Denies chest pain, palpitations Endurance has improved Questions ongoing need for ensure Reports appetite has been good Denies abd pain, n/v Bowels mostly regular, occasional constipation Additional Current Outpatient Medications Medication Sig Dispense [...] NEEDED FOR CHEST PAIN 25 Tablet 1 Allopurinol 300 MG Oral Tablet (Zyloprim) TAKE 1 & 1/2 TABLETS BY MOUTH EVERY DAY 135 Tablet 0 Apixaban 2.5 MG Oral Tablet (Eliquis) Take [...] mouth in the morning. 90 Capsule 3 Current Facility-Administered Medications Medication Dose Route Frequency Provider Last Rate Last Admin ROPivacaine (Naropin) inj 1.5 mg 1.5 mg Injection PRN 1.5 mg at 03/18/24 1428 Aflibercept (Eylea) intraviteal prefilled syringe 2 mg 2 mg Intravitreal PRN 2 mg at 02/04/24 1138 Faricimab-svoa (Vabysmo) prefilled syringe inj 6 mg 6 mg Intravitreal PRN 6 mg at 03/18/24 1442 I have reviewed the following results: TSH Lab Results Component Value Date/Time PRO BNP 56 02/12/2020 08:32 AM LEFT VENTRICULAR EJECTION FRACTION 55 01/24/2022 11:37 AM Objective Objective There were no vitals filed for this visit. Last Weights: Wt Readings from Last 3 Encounters: 03/13/24 74.8 kg (164 lb 12.8 oz) 02/25/24 74.2 kg (163 lb 9.6 oz) 02/24/24 74.7 kg (164 lb 9.6 oz) Last BPs: BP Readings from Last 4 Encounters: 03/13/24 126/80 02/25/24 114/73 02/24/24 146/87 02/21/24 138/88 General: alert and no distress Neuro: alert & oriented x 3 with fluent speech Heart: regular rate & rhythm and no murmur Lungs: lungs clear to auscultation, but diminished, denies wheezing Abdomen: non-tender and normal bowel sounds Ext: Normal extremities without edema documented in this encounter Miscellaneous Notes * ACP (Advance Care Planning) - Leon Live PA-C - 04/16/2024 4:10 PM EST Patient-centered Communication 04/16/2024 The patient/surrogate voluntarily agreed to participate in advance care planning discussion. Location: Home Individual(s) present for conversation: Patient Decisions (Aligning Care with What Matters Most): Most Recent Choice Selection Comments CPR Intubation Non-Invasive Ventilation Antibiotics Artificial Nutrition IV Hydration Chemotherapy Radiation Therapy Surgical Procedure Blood Transfusions Lab Draws Hospice Going to Hospital / ER Dying at Home Dialysis Source: Content from [employer] Discussion and Background (Discerning What Matters Most): The Patient's Current Experience and Understanding of their Illness: "I just dont have the energy like I used to" (04/16/24 [id number]) Their Past Experience with Healthcare or Illness: Their Understanding of Prognosis and their Anticipated Course: Their Fears and Worries about the Future: Their Hopes for the Future: Important Spiritual or Cultural Elements for them: Source: Content from [employer] Materials Shared with Patient and Family: 5 minutes spent in direct [id number] discussion Leon helms PA-C * Assessment & Plan Note - Leon Live PA-C - 04/16/2024 4:06 PM EST Associated Problem(s): Hypertensive kidney disease with stage 3a chronic kidney disease BP stable Continue propanolol and diltiazem * Assessment & Plan Note - Leon Live PA-C - 04/16/2024 4:06 PM EST Associated Problem(s): History of IL (myocardial infarction) history of NSTEMI status post AMIE to LAD (culprit) and RCA, 04/28/2018 Currently in cardiac rehab * Assessment & Plan Note - Leon Live PA-C - 04/16/2024 4:06 PM EST Associated Problem(s): Tachy-chintan syndrome (HCC) status post pacemaker implantation 08/19/2019 * Assessment & Plan Note - Leon Live PA-C - 04/16/2024 4:06 PM EST Associated Problem(s): Dyslipidemia, goal LDL below 70 Ldl at goal, continue statin * Assessment & Plan Note - Leon Live PA-C - 04/16/2024 4:06 PM EST Associated Problem(s): Migraine without aura and without status migrainosus, not intractable Continue magnesium and riboflavin Reports gabapentin was offered by neurology, will reach out to neurology regarding starting * Assessment & Plan Note - Leon Live PA-C - 04/16/2024 4:06 PM EST Associated Problem(s): Hypothyroidism (acquired) Continue current synthroid Repeat labs scheduled * Assessment & Plan Note - Leon Live PA-C - 04/16/2024 4:06 PM EST Associated Problem(s): Senile osteoporosis Continue prolia * Assessment & Plan Note - Leon Live PA-C - 04/16/2024 4:06 PM EST Associated Problem(s): Retinal vein occlusion of right eye Follows with ophthalmology documented in this encounter Plan of Treatment Upcoming Encounters Date Type Department Care Team (Late st Contact Info) Description 05/05/2024 2:30 PM EST Home Visit [facility], [facility] [address] [facility] [place] [address] Olinda Briggs, CHRISTINA 132 [facility] [place] [address] 05/07/2024 3:00 PM EST Office Visit Ophthalmology, [facility] 132 [facility] [place] [address] Pedro Tinsley DO 132 [facility] [place] [address] 05/12/2024 1:00 PM EST Office Visit Cardiology, [facility] [address] [facility] [place] [address] Pricila Puga, LEYDA [address] [place] [address] 05/18/2024 10:00 AM EST Office Visit Neurology [facility] [address] [place] [address] Alfonso Manning MD [address] [place] [address] 06/25/2024 9:00 AM EDT Office Visit Family Medicine [address] [place] [phone] Rafa Bergman MD [address] [place] [address] [place] [address] 07/21/2024 10:00 AM EDT Imaging Radiology [facility] [phone] 08/18/2024 10:20 AM EDT Laboratory Laboratory [address] [place] [phone] [address] [place] [address] 08/21/2024 3:00 PM EDT Office Visit Rheumatology [address] [place] [phone] José Miguel Cullen CRNP [address] [facility] [place], [place] [address] 08/25/2024 3:30 PM EDT Office Visit Hematology/Oncology [facility] [place] 200 [facility] [place] [phone] Arianna Szymanski MD [address] [facility] [place] [address] 09/11/2024 12:50 PM EDT Office Visit Dermatology, Jesu Wilson [address] [place] [address] Dasha Nelson PA-C [address] [place] [address] 10/05/2024 1:30 PM EDT Office Visit Cardiology, [facility] [address] [place] [address] Charles Ortega DO 132 [place] [address] Health Maintenance Due Date Last Done Comments Adult Wellness Visit 02/06/2018 02/06/2017 Depression Screening 07/17/2022 07/17/2021 COVID-19 Vaccine ( season) 2023 02/05/2022, 08/02/2021, 02/28/2021, Additional history exists Influenza Vaccine (FLU shot) (#1) 2023 04/19/2023, 01/30/2022, 12/28/2020, Additional history exists Albumin/Creatinine Ratio 02/13/2024 023, 03/21/2022, 04/19/2021, Additional history exists HbA1c 04/26/2024 04/26/2023, 03/02, 04/19/2021, Additional history exists CKD PHOS USE SMARTSET 67810 06/26/202405/31, 04/19/2021, 11/27/2019, Additional history exists DXA Scan 07/18/2024 07/18/2022, 06/30, 12/22/2019, Additional history exists GFR 08/16/2024 02/17/2024, 08/0 08/2023, 06/27/2023, Additional history exists CKD HGB USE SMARTSET 99907 02/16/202502/16, 02/17/2024, 06/27/2023, Additional history exists TSH [...] D LEVEL ONCE IN A LIFETIME-USE SMARTSET# [id number] Completed 06/27/2023, 11/06/2021, 12/28/2019, Additional history exists HPV (Gardasil) Vaccine Aged Out No lo nger eligible based on patient's age to complete this topic MENINGOCOCCAL (MENACTRA/MENVEO) Aged Out No longer eligible based on patient's age to complete this topic documented as of this encounter Medical Devices Implanted Type Area Stratigraphy Teacher Device Identifier Shelf Expiration Date Model / Serial / Lot Lens Intraoc 21.5 - [id number] - [id number] Implanted:Qty: 1 on 05/12/2019 by Yury Brady MD at OR [facility] Right: Eye [employer] 12/30/2023 [id number] / [id number] / [id number] Lens Intraoc 22.5 - [id number] - [id number] Implanted:Qty: 1 on 04/05/2020 by Yury Brady MD at OR [facility] Left: Eye [employer] 09/28/2024 [id number] / [id number] / [id number] documented as of this encounter Visit Diagnoses Diagnosis Hypertensive kidney disease with stage 3a chronic kidney disease- Primary Atherosclerosis of tazlina coronary artery of tazlina heart without angina pectoris Dyslipidemia, goal LDL below 70 Other and unspecified hyperlipidemia History of pulmonary embolism Personal history of pulmonary embolism Tachy-chintan syndrome (HCC) Sinoatrial node dysfunction S/P placement of cardiac pacemaker Cardiac pacemaker in situ Arthralgia of right hip Gastro-esophageal reflux disease with esophagitis, without bleeding Sinus tachycardia Other specified cardiac dysrhythmias Coronary artery disease involving tazlina coronary artery of tazlina heart without angina pectoris Presence of cardiac pacemaker Cardiac pacemaker in situ Palpitations HTN, goal below 140/90 Unspecified essential hypertension Hypertensive kidney disease with stage 3a chronic kidney disease- Primary Dyslipidemia, goal LDL below 70 Other and unspecified hyperlipidemia Gastro-esophageal reflux disease with esophagitis, without bleeding Atherosclerosis of tazlina coronary artery of tazlina heart without angina pectoris Advanced care planning/counseling discussion- Primary Other specified counseling Hypertensive kidney disease with stage 3a chronic kidney disease (HCC) History of IL (myocardial infarction) Old myocardial infarction Tachy-chintan syndrome (HCC) Sinoatrial node dysfunction Dyslipidemia, goal LDL below 70 Other and unspecified hyperlipidemia Migraine without aura and without status migrainosus, not intractable Migraine without aura, without mention of intractable migraine without mention of status migrainosus Hypothyroidism (acquired) Unspecified hypothyroidism Senile osteoporosis 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 documented in this encounter Advance Directives Documents on File Type Date Recorded Patient Journal Box Inspector Expl anation Advance Directives and Living [...] Agen t (per Health Care Power of Wheel Truing Machine Tender document) Guille Urban Adult Child Health Care Agen corey (per Health Care Power of Wheel Truing Machine Tender document) [email or web address] om Care Teams Border Guard Relationship Specialty Start Date End Date Rafa Bergman MD [address] [place] [address] [place] [phone] PCP - General Family Medicine 04/19/21 documented as of this encounter
--- OUTSIDE RECORDS SUMMARY | 2024-07-24 00:14 | External Medical Summary | Summary of Care ---
Author Name Unknown Organization [facility] Address [address] [place] [place] [address] Phone [phone] Care Team Providers Care Communications Professor Name Role Phone Rafa Bergman MD Primary Care Provide r Encounter Details Date Type Department Care Team (Late st Contact Info) Description 04/14/2024 Population Health External Data Unspecified Department Allergies Active Allergy Reactions Criticality Noted Date Comments Colchicine Diarrhea 06/16/2018 Daptomycin 01/05/2015 Shortness of breath Imipenem Edema airway High 01/05/2015 Metoprolol Low 01/23/2021 Other reaction(s): fatigue Zoledronic Acid 04/24/2012 Myalgias, fever, chills, vomiting x 2 days Sulfa Antibiotics 12/22/2002 Bactrim--itchy all over, eyes swollen documented as of this encounter (statuses as of 04/15/2024) Medications ASPIRIN 81 MG PO TABS Take [...] 90 Tablet 3 5 Active Magnesium Oxide 400 MG Oral Capsule Take 1 Capsule by mouth in the morning. 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 Not on file Not on file documented as of this encounter Plan of Treatment Upcoming Encounters Date Type Department Care Team (Late st Contact Info) Description 04/16/2024 11:00 AM EST [facility] Visit [facility] 132 [facility] [place] [address] Leon Live PA-C [address] [place] [address] 05/05/2024 2:30 PM EST [facility] Visit [facility] [address] [place] [address] Olinda Briggs RN 132 [facility] [place] [address] 05/07/2024 3:00 PM EST Office Visit Ophthalmology, [facility] [address] [place] [address] Pedro Tinsley DO [address] [place] [address] 05/12/2024 1:00 PM EST Office Visit Cardiology, [facility] 132 [facility] [place] [address] Pricila Puga CRNP [address] [place] [address] [place] [address] 05/18/2024 11:20 AM EST Office Visit Neurology [facility] [address] [place] [address] Alfonso Manning MD [address] [place] [address] 06/25/2024 9:00 AM EDT Office Visit Family Medicine [address] [place] [phone] Rafa Bergman MD [address] [place] [address] [place] [address] 07/21/2024 10:00 AM EDT Imaging Radiology [facility] 132 [facility] [place] [phone] 08/18/2024 10:20 AM EDT Laboratory Laboratory [address] [place] [phone] [place] [address] 08/21/2024 3:00 PM EDT Office Visit Rheumatology [address] [place] [phone] José Miguel Cullen CRNP [address] [place] [address] [place] [address] 08/25/2024 3:30 PM EDT Office Visit Hematology/Oncology [facility] [address] [place] [phone] Arianna Szymanski MD [address] [place] [address] 09/11/2024 12:50 PM EDT Office Visit Dermatology, [facility] [address] [place] [address] Dasha Nelson PA-C [address] [place] [address] 10/05/2024 1:30 PM EDT Office Visit Cardiology, [facility] [address] [place] [address] Charles Ortega O, DO 132 [place] [address] Health Maintenance Due Date Last Done Comments Adult Wellness Visit 02/06/2018 02/06/2017 Depression Screening 07/17/2022 07/17/2021 COVID-19 Vaccine ( season) 2023 02/05/2022, 08/02/2021, 02/28/2021, Additional history exists Influenza Vaccine (FLU shot) (#1) 2023 04/19/2023, 01/30/2022, 12/28/2020, Additional history exists Albumin/Creatinine Ratio 02/13/2024 023, 03/21/2022, 04/19/2021, Additional history exists HbA1c 04/26/2024 04/26/2023, 03/02, 04/19/2021, Additional history exists CKD PHOS USE SMARTSET 60670 06/26/202405/31, 04/19/2021, 11/27/2019, Additional history exists DXA Scan 07/18/2024 07/18/2022, 06/30, 12/22/2019, Additional history exists GFR 08/16/2024 02/17/2024, 08/0 08/2023, 06/27/2023, Additional history exists CKD HGB USE SMARTSET 14052 02/16/202502/16, 02/17/2024, 06/27/2023, Additional history exists TSH 04/08/2025 04/08/2024, 0808/2023, 10/01/2023, Additional history exists DTap/Tdap Vaccines (3 - Td or Tdap) 09/30/2033 10/01/2023, 11/03/2007 Hepatitis B Vaccine Completed 03/18/2009, 06/14/2008, 05/12/2008 Pneumococcal Vaccine: 50+ Years Completed 03/28/2015, 03/20/2010, 11/15/2004 RETIRED - COLONOSCOPY-EVERY 5 YRS AGES 18-100 Discontinued 02/27/2017, 02/27/2017, 10/17/2004 Zoster Vaccines Completed 06/12/2021, 02/01, 11/04/2012 VITAMIN D LEVEL ONCE IN A LIFETIME-USE SMARTSET# 38149 Completed 06/27/2023, 11/06/2021, 12/28/2019, Additional history exists HPV (Gardasil) Vaccine Aged Out No lo nger eligible based on patient's age to complete this topic MENINGOCOCCAL (MENACTRA/MENVEO) Aged Out No longer eligible based on patient's age to complete this topic documented as of this encounter Medical Devices Implanted Type Area Hospice Clinical Supervisor Device Identifier Shelf Expiration Date Model / Serial / Lot Lens Intraoc 21.5 - [id number] - [id number] Implanted:Qty: 1 on 05/12/2019 by Yury Brady MD at OR [facility] Right: Eye [employer] 12/30/2023 [id number] / [id number] / [id number] Lens Intraoc 22.5 - [id number] - [id number] Implanted:Qty: 1 on 04/05/2020 by Yury Brady MD at OR [facility] Left: Eye [employer] 09/28/2024 [id number] / [id number] / [id number] documented as of this encounter Advance Directives Documents on File Type Date Recorded Patient Plan Examiner Expl anation Advance Directives and Living Will [...] Ageleandra t (per Health Care Power of Cmm Operator document) Guille Urban Adult Child Health Care Agen t (per Health Care Power of Cmm Operator document) [email or web address] Care Teams Communications Professor Relationship Specialty Start Date End Date Rafa Bergman MD [address] [place] [address] [place] [address] PCP - General Family Medicine 04/19/21 documented as of this encounter
--- OUTSIDE RECORDS SUMMARY | 2024-07-24 00:14 | External Medical Summary ---
Author Name Unknown Address Unknown Organization K01:[facility] - [address] [place] [address] Laboratory Report Ordering Provider Test Date Status CHELLY FLORESEUGENIE 04/08/2024 11:07:05 Marion l Observation Date Value Abnormality Reference (Units ) Status TSH 04/08/2024 11:07:05 4.58 Above high normal 0. 27-4.20 (uIU/mL) Final Performing Location [facility] - [address] [place] [address]
--- OUTSIDE RECORDS SUMMARY | 2024-07-24 00:15 | External Medical Summary | Summary of Care ---
Author Name Unknown Organization [facility] Address [address] [place] [address] Phone [phone] Care Team Providers Care Tower Hand Name Role Phone Rafa Bergman MD Primary Care Provide r Reason for Visit * Reason Onset Date Comments Appointment 03/27/2024 Encounter Details Date Type Department Care Team (Late st Contact Info) Description 03/27/2024 Telephone [facility] [address] [place] [address] Daly Travis, ASHLEY [address] [place] [address] Appointment (/) Allergies Active Allergy Reactions Criticality Noted Date Comments Colchicine Diarrhea 06/16/2018 Daptomycin 01/05/2015 Shortness of breath Imipenem Edema airway High 01/05/2015 Metoprolol Low 01/23/2021 Other reaction(s): fatigue Zoledronic Acid 04/24/2012 Myalgias, fever, chills, vomiting x 2 days Sulfa Antibiotics 12/22/2002 Bactrim--itchy all over, eyes swollen documented as of this encounter (statuses as of 03/27/2024) Medications ASPIRIN 81 MG PO TABS Take [...] mouth at bedtime. 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 [address] [place] [address] Olinda Briggs RN [address] [place] [address] 04/30/2024 11:00 AM EST [facility] Visit [facility] [address] [place] [address] [address] Leon Live PA-C [address] [place] [address] 05/07/2024 3:00 PM EST Office Visit Ophthalmology, [facility] [address] [place] [address] [address] Pedro Tinsley, [address] [place] [address] 05/12/2024 1:00 PM EST Office Visit Cardiology, [facility] [address] [place] [address] Pricila Puga CRNP [address] [facility] [place] [address] 05/18/2024 11:20 AM EST Office Visit Neurology [facility] [address] [facility] [place] [address] Alfonso Manning MD [address] [facility] [place] [address] 06/25/2024 9:00 AM EDT Office Visit Family Medicine [address] [place] [phone] Rafa Bergman MD [address] [place] [address] [place] [address] 07/21/2024 10:00 AM EDT Imaging Radiology [facility] [address] [place] [phone] 08/18/2024 10:20 AM EDT Laboratory Laboratory [address] [place] [phone] [address] [place] [address] 08/21/2024 3:00 PM EDT Office Visit Rheumatology [address] [place] [phone] José Miguel Cullen CRNP [address] [facility] [place] [address] 08/25/2024 3:30 PM EDT Office Visit Hematology/Oncology [facility] [address] [facility] [place] [phone] Arianna Szymanski MD [address] [facility] [place] [address] 09/11/2024 12:50 PM EDT Office Visit Dermatology, Jesu Wilson [address] [place] [address] Dasha Nelson PA-C [address] [place] [address] 10/05/2024 1:30 PM EDT Office Visit Cardiology, [facility] [address] [place] [address] [address] Charles Ortega DO [address] [place] [address] Health Maintenance Due Date Last Done Comments Adult Wellness Visit 02/06/2018 02/06/2017 Depression Screening 07/17/2022 07/17/2021 COVID-19 Vaccine ( season) 2023 02/05/2022, 08/02/2021, 02/28/2021, Additional history exists Influenza Vaccine (FLU shot) (#1) 2023 04/19/2023, 01/30/2022, 12/28/2020, Additional history exists Albumin/Creatinine Ratio 02/13/2024 023, 03/21/2022, 04/19/2021, Additional history exists HbA1c 04/26/2024 04/26/2023, 03/02, 04/19/2021, Additional history exists CKD PHOS USE SMARTSET 24365 06/26/202405/31, 04/19/2021, 11/27/2019, Additional history exists DXA Scan 07/18/2024 07/18/2022, 06/30, 12/22/2019, Additional history exists GFR 08/16/2024 02/17/2024, 08/0 08/2023, 06/27/2023, Additional history exists TSH 11/14/2024 11/15/2023, 070 05/2023, 08/21/2023, Additional history exists CKD HGB USE SMARTSET 42647 02/16/202502/16, 02/17/2024, 06/27/2023, Additional history exists DTap/Tdap Vaccines (3 - Td or Tdap) 09/30/2033 10/01/2023, 11/03/2007 Hepatitis B Vaccine Completed 03/18/2009, 06/14/2008, 05/12/2008 Pneumococcal Vaccine: 50+ Years Completed 03/28/2015, 03/20/2010, 11/15/2004 RETIRED - COLONOSCOPY-EVERY 5 YRS AGES 18-100 Discontinued 02/27/2017, 02/27/2017, 10/17/2004 Zoster Vaccines Completed 06/12/2021, 02/01, 11/04/2012 VITAMIN D LEVEL ONCE IN A LIFETIME-USE SMARTSET# [id number] Completed 06/27/2023, 11/06/2021, 12/28/2019, Additional history exists HPV (Gardasil) Vaccine Aged Out No lo nger eligible based on patient's age to complete this topic MENINGOCOCCAL (MENACTRA/MENVEO) Aged Out No longer eligible based on patient's age to complete this topic documented as of this encounter Medical Devices Implanted Type Area Metal Can Inspector Device Identifier Shelf Expiration Date Model / Serial / Lot Lens Intraoc 21.5 - [id number] - [id number] Implanted:Qty: 1 on 05/12/2019 by Yury Brady MD at OR [facility] Right: Eye [employer] 12/30/2023 [id number] / [id number] / [id number] Lens Intraoc 22.5 - [id number] - [id number] Implanted:Qty: 1 on 04/05/2020 by Yury Brady MD at OR [facility] Left: Eye [employer] 09/28/2024 [id number] / [id number] / [id number] documented as of this encounter Advance Directives Documents on File Type Date Recorded Patient Lab Technician Expl anation Advance Directives and Living [...] t (per Health Care Power of Supervisor Acoustical [employer] document) Guille Urban Adult Child Health Care Agen t (per Health Care Power of Supervisor [employer] document) .c om Care Teams Tower Hand Relationship Specialty Start Date End Date Rafa Bergman MD [address] [place] [address] [place] [phone] PCP - General Family Medicine 04/19/21 documented as of this encounter
--- OUTSIDE RECORDS SUMMARY | 2024-07-24 00:15 | External Medical Summary | Summary of Care ---
Author Name Unknown Organization [facility] Address [address] [facility] [place] [address] Phone [phone] Care Team Providers Care Trench Digger Helper Name Role Phone Rafa Bergman MD Primary Care Provide r Reason for Visit * Reason Comments Follow Up 4-6 week follow up * Precert (Routine) - Authorized Specialty Diagnoses / Procedures Referred By Ethan nicole Referred To Contact Ophthalmology Diagnoses 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 Procedures INJECTION OF EYE DRUG AFLIBERCEPT IO SOLN, PER 1MG, INJ Pedro Tinsley DO Phone: tel: fax: Referral ID Status Reason Start Date Expiration Date V isits Requested Visits Authorized [id number] Authorized Precert 11/25/2018 03/31/2099 99 99 Encounter Details Date Type Department Care Team (Late st Contact Info) Description 03/18/2024 2:15 PM EST Office Visit Ophthalmology, [facility] [address] [place] [address] Pedro Tinsley DO [address] [place] [address] 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* Allergies Active Allergy Reactions Criticality Noted Date Comments Colchicine Diarrhea 06/16/2018 Daptomycin 01/05/2015 Shortness of breath Imipenem Edema airway High 01/05/2015 Metoprolol Low 01/23/2021 Other reaction(s): fatigue Zoledronic Acid 04/24/2012 Myalgias, fever, chills, vomiting x 2 days Sulfa Antibiotics 12/22/2002 Bactrim--itchy all over, eyes swollen documented as of this encounter (statuses as of 03/18/2024) Medications ASPIRIN 81 MG PO TABS Take [...] Tablet before bedtime. 180 Tablet 3 4 Active Pantoprazole Sodium 40 MG Oral Tablet Delayed Release (Protonix) Take 1 Tablet by mouth in the morning and 1 Tablet in the evening. 90 Tablet 3 01/29/2024 6:52 AM EDT 4 Active Rosuvastatin Calcium 5 MG Oral Tablet (Crestor)Indicat ions:Dyslipidemi a, goal LDL below 70,Coronary artery disease involving inaja coronary artery of inaja heart without angina pectoris TAKE ONE TABLET BY MOUTH IN THE MORNING 90 Tablet 3 02/29/2024 11:02 AM EST 4 Active Propranolol HCl 10 MG Oral Tablet (Inderal)Indicat ions:Sinus tachycardia,Tach y-chintan syndrome (HCC),Coronary artery disease involving inaja coronary artery of inaja heart without angina pectoris,Presenc e of cardiac [...] by mouth in the morning. 30 Tablet 1 Active Hospital, Clinic, or Other Facility [...] as of this encounter (statuses as of 03/18/2024) Active Problems Problem Noted Date Diagnosed Date [...] S/P angioplasty with stent 11/27/2018 Atherosclerosis of inaja co ronary artery of inaja heart without angina pectoris 07/08/2018 Overview (11/21/2023): [...] as of this encounter (statuses as of 03/18/2024) Resolved Problems Problem Noted Date Diagnosed Date Resolved Date Purulent endophthalmitis of right eye 01/03/2023 11/08/2023 Other pulmonary embolism wit h acute cor pulmonale 10/01/2022 04/26/2023 Overview (04/26/2023): history Medical home patient encounter 09/13/2022 11/08/2023 Atherosclerosis of coronary artery of inaja heart without angina pectoris 09/10/2022 10/31/2022 Hypothyroidism [...] filter 02/28/2015 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 11/2018 CKD (chronic kidney disease) stage 2, GFR 60-89 ml/min 03/12/2019 documented as of this encounter (statuses as of 03/18/2024) Immunizations Name Administration Dates Next Due COVID-19 [...] 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 Last Office Visit: 02/04/2024 (in office), Visit date not found (telemedicine) Patient currently c/o having more discomfort, not pain, in right eye Are you diabetic? No Do you drive? yes OCT image(s) of right eye acquired and filed/scanned into chart. Base Eye Exam Visual Acuity (Snellen - Linear) Right Left Dist sc 20/100 20/40 -1 Dist ph sc NI NI Tonometry (Tonopen, 2:07 PM) Right Left Pressure 13 15 Pupils Pupils APD Right PERRL None Left PERRL None Visual Toribio (Counting fingers) Right Left Full Full Extraocular Movement Right Left Full, Ortho Full, Ortho Neuro/Psych Oriented x3: Yes Dilation Both eyes: 0.5% Proparacaine @ 2:06 PM Dilation #2 Right eye: 1.0% Mydriacyl, 2.5% Phenylephrine @ 2:07 PM Dilation Comments Patient cautioned that effects [...] OCT Interpretation: OD: recurrent resolved irf - improved 204um prior worse 279um, prior improved [...] 06/12/22, 04/18/22, 08/29/21, 07/13/21, 03/29/21, , -2-, 7-11-19, 08-04-20, 06/02/20, 03-22-20, 01-21-20, 10/29/19, 08-13-19, 05/27/19, 11-25-18, 08-21-18, 06-12-18, 04-03-18, 01-30-18, 11/28/17, 10-03-17, 07-25-17, 05-17-2017, 03-21-17, 01-25-17, 11-30-16, 10-05-16, 07/27/16, 06-01-16, 03-16-2016, 12/06/15, 10/21/15) - worse at 9 and 10 and 12 weeks was good in past at 12-14 weeks - best at 6-8 weeks in past - 6 weeks; has gone 7 weeks - Vabysmo 03/18/2024 2. h/o Endophthalmitis OD -s/p Eylea 11/13/22 [...] documented in this encounter Nursing Notes * Paulina Lai LPN - 03/18/2024 2:25 PM EST Rehana Moran to receive first Vabysmo 6mg Injection of the Right eye. Correct eye confirmed with patient and marked by Pedro Tinsley DO Vabysmo 6mg lot # [id number] Exp. Date: 11/2024 * Paulina Lai LPN - 03/18/2024 1:57 PM EST Rehana Moran is a 79 year old year old female who presents for BRVO OD. Last Office Visit: 02/04/2024 (in office), Visit date not found (telemedicine) Patient currently c/o having more discomfort, not pain, in right eye Are you diabetic? No Do you drive? yes OCT image(s) of right eye acquired and filed/scanned into chart. documented in this encounter Plan of Treatment Upcoming Encounters Date Type Department Care Team (Late st Contact Info) Description 03/26/2024 1:00 PM EST Nurse Only Ancillary [address] [place] [address] [place], Nurse [address] [place] [address] 03/31/2024 4:00 PM EST [facility] [address] [place] [address] Olinda Briggs RN [address] [place] [address] 04/30/2024 11:00 AM EST [facility] Visit [facility] [place] [address] [place] [address] Leon Live PA-C [address] [place] [address] 05/07/2024 3:00 PM EST Office Visit Ophthalmology, [facility] [address] [place] [address] Pedro Tinsley DO [address] [place] [address] 05/12/2024 1:00 PM EST Office Visit Cardiology, [facility] [address] [place] [address] Pricila Puga CRNP [address] [place] [address] [place] [address] 05/18/2024 11:20 AM EST Office Visit Neurology [facility] [address] [place] [address] Alfonso Manning MD [address] [place] [address] 05/22/2024 3:45 PM EST Office Visit Dermatology [facility] [address] [place] [address] Guy Trivedi MD [address] [place] [address] 06/25/2024 9:00 AM EDT Office Visit Family Medicine [address] [place] [phone] Rafa Bergman MD [address] [place] [address] [place] [address] 07/21/2024 10:00 AM EDT Imaging Radiology [facility] [address] [place] [phone] 08/18/2024 10:20 AM EDT Laboratory Laboratory [address] [place] [phone] [place] [address] 08/25/2024 3:30 PM EDT Office Visit Hematology/Oncology [facility] [address] [place] [phone] Arianna Szymanski MD [address] [place] [address] 09/04/2024 1:00 PM EDT Office Visit Rheumatology [address] [place] [phone] Deangelo Holley MD [address] [facility] [place] [address] 10/05/2024 1:30 PM EDT Office Visit Cardiology, [facility] [address] [place] [address] Charles Ortega, [address] [place] [address] Scheduled Orders Name Type Priority Associated Diagnoses Orde r Schedule RETINA SCAN DIAGNOSTIC IMAGE, POSTERIOR Procedures Routine 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 Ordered: 03/18/2024 Health Maintenance Due Date Last Done Comments Adult Wellness Visit 02/06/2018 02/06/2017 Depression Screening 07/17/2022 07/17/2021 COVID-19 Vaccine ( season) 2023 02/05/2022, 08/02/2021, 02/28/2021, Additional history exists Influenza Vaccine (FLU shot) (#1) 2023 04/19/2023, 01/30/2022, 12/28/2020, Additional history exists Albumin/Creatinine Ratio 02/13/2024 023, 03/21/2022, 04/19/2021, Additional history exists HbA1c 04/26/2024 04/26/2023, 03/02, 04/19/2021, Additional history exists CKD PHOS USE SMARTSET 18680 06/26/202405/31, 04/19/2021, 11/27/2019, Additional history exists DXA Scan 07/18/2024 07/18/2022, 06/30, 12/22/2019, Additional history exists GFR 08/16/2024 02/17/2024, 08/0 08/2023, 06/27/2023, Additional history exists TSH 11/14/2024 11/15/2023, 07/0 05/2023, 08/21/2023, Additional history exists CKD HGB USE SMARTSET 30435 02/16/202502/16, 02/17/2024, 06/27/2023, Additional history exists DTap/Tdap Vaccines (3 - Td or Tdap) 09/30/2033 10/01/2023, 11/03/2007 Hepatitis B Vaccine Completed 03/18/2009, 06/14/2008, 05/12/2008 Pneumococcal Vaccine: 65+ Years Completed 03/28/2015, 03/20/2010, 11/15/2004 RETIRED - COLONOSCOPY-EVERY 5 YRS AGES 18-100 Discontinued 02/27/2017, 02/27/2017, 10/17/2004 Zoster Vaccines Completed 06/12/2021, 02/01, 11/04/2012 VITAMIN D LEVEL ONCE IN A LIFETIME-USE SMARTSET# [id number] Completed 06/27/2023, 11/06/2021, 12/28/2019, Additional history exists HPV (Gardasil) Vaccine Aged Out No lo nger eligible based on patient's age to complete this topic MENINGOCOCCAL (MENACTRA/MENVEO) Aged Out No longer eligible based on patient's age to complete this topic documented as of this encounter Medical Devices Implanted Type Area Nursing Home Administrator Device Identifier Shelf Expiration Date Model / Serial / Lot Lens Intraoc 21.5 - [id number] - [id number] Implanted:Qty: 1 on 05/12/2019 by Yury Brady MD at OR [facility] Right: Eye [employer] 12/30/2023 [id number] / [id number] / [id number] Lens Intraoc 22.5 - [id number] - [id number] Implanted:Qty: 1 on 04/05/2020 by Yury Brady MD at OR [facility] Left: Eye [employer] 09/28/2024 [id number] / [id number] / [id number] documented as of this encounter Visit Diagnoses Diagnosis Hypertensive kidney disease with stage 3a chronic kidney disease- Primary Atherosclerosis of inaja coronary artery of inaja heart without angina pectoris Dyslipidemia, goal LDL below 70 Other and unspecified hyperlipidemia History of pulmonary embolism Personal history of pulmonary embolism Tachy-chintan syndrome (HCC) Sinoatrial node dysfunction S/P placement of cardiac pacemaker Cardiac pacemaker in situ Arthralgia of right hip Gastro-esophageal reflux disease with esophagitis, without bleeding Sinus tachycardia Other specified cardiac dysrhythmias Coronary artery disease involving inaja coronary artery of inaja heart without angina pectoris Presence of cardiac pacemaker Cardiac pacemaker in situ Palpitations HTN, goal below 140/90 Unspecified essential hypertension Hypertensive kidney disease with stage 3a chronic kidney disease- Primary Dyslipidemia, goal LDL below 70 Other and unspecified hyperlipidemia Gastro-esophageal reflux disease with esophagitis, without bleeding Atherosclerosis of inaja coronary artery of inaja heart without angina pectoris 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 [...] of right eye with macular edema Given 03/18/2024 2:42 PM EST 6 mg Eye Right ROPivacaine (Naropin) inj 1.5 mg 1.5 mg, Injection, PRN Other, Starting on Karime 11/07/23 at 1428, Until Sat11/06/24 at 1427, For 365 daysIndications: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 Given 03/18/2024 2:28 PM EST 1.5 mg Eye Right Given 02/04/2024 11:38 AM EST 1.5 mg E ye Right Given 12/16/2023 1:15 PM EDT 1.5 mg Ey e Right documented in this encounter Advance Directives Documents on File Type Date Recorded Patient Global Professional Expl anation Advance Directives and Living Will [...] Agen t (per Health Care Power of Brine Plant Operator document) Guille Urban Adult Child Health Care Agen t (per Health Care Power of Brine Plant Operator document) Care Teams Trench Digger Helper Relationship Specialty Start Date End Date Rafa Bergman MD [address] [place] [address] [place] [address] PCP - General Family Medicine 04/19/21 documented as of this encounter
--- OUTSIDE RECORDS SUMMARY | 2024-07-24 00:15 | External Medical Summary | Summary of Care ---
Author Name Unknown Organization [facility] Address [address] [address] Phone [phone] Care Team Providers Care Life Insurance Actuary Name Role Phone Rafa Bergman MD Primary [...] Expiration Date V isits Requested Visits Authorized [id number] Authorized Precert 11/25/2018 03/31/2099 99 99 Encounter Details Date Type Department Care Team (Late st Contact Info) Description 03/18/2024 2:15 PM EST Office Visit Ophthalmology, [facility] [address] [place] [address] Pedro Tinsley DO [address] [place] [address] 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 [...] 4:40 PM EDT): Cardiac rehab at [facility] 2x week Assessment & Plan (11/21/2023 5:32 [...] 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 Date: 11/2024 * Paulina Lai LPN [...] 03/26/2024 1:00 PM EST Nurse Only Ancillary [address] [place] [address] [place], Nurse [address] [place] [address] 03/31/2024 4:00 PM EST [facility] [address] [place] [address] Olinda Briggs RN [address] [place] [address] 04/30/2024 11:00 AM EST [facility] Visit [facility] [place] [address] [place] [address] Leon Live PA-C [address] [place] [address] 05/07/2024 3:00 PM EST Office Visit Ophthalmology, [facility] [address] [place] [address] Pedro Tinsley DO [address] [place] [address] 05/12/2024 1:00 PM EST Office Visit Cardiology, [facility] [address] [place] [address] Pricila Puga CRNP [address] [place] [address] [place] [address] 05/18/2024 11:20 AM EST Office Visit Neurology [facility] [address] [place] [address] Alfonso Manning MD [address] [place] [address] 05/22/2024 3:45 PM EST Office Visit Dermatology [facility] [place] [address] [place] [address] Guy Trivedi MD [address] [place] [address] 06/25/2024 9:00 AM EDT Office Visit Family Medicine [address] [place] [phone] Rafa Bregman MD [address] [place] [address] [place] [address] 07/21/2024 10:00 AM EDT Imaging Radiology [facility] [address] [place] [phone] 08/18/2024 10:20 AM EDT Laboratory Laboratory [address] [place] [phone] [place] [address] 08/25/2024 3:30 PM EDT Office Visit Hematology/Oncology [facility] [address] [place] [phone] Arianna Szymanski MD [address] [place] [address] 09/04/2024 1:00 PM EDT Office Visit Rheumatology [address] [place] [phone] Deangelo Holley MD [address] [facility] [place] [address] 10/05/2024 1:30 PM EDT Office Visit Cardiology, [facility] [address] [place] [address] Charles Ortega, [address] [place] [address] Scheduled Orders Name Type Priority Associated Diagnoses [...] Additional history exists CKD PHOS USE SMARTSET 53809 06/26/202405/31, 04/19/2021, 11/27/2019, Additional history exists DXA Scan 07/18/2024 07/18/2022, 06/30, 12/22/2019, Additional history exists GFR 08/16/2024 02/17/2024, 08/0 08/2023, 06/27/2023, Additional history exists TSH 11/14/2024 11/15/2023, 07/0 05/2023, 08/21/2023, Additional history exists CKD HGB USE SMARTSET 52613 02/16/202502/16, 02/17/2024, 06/27/2023, Additional history exists DTap/Tdap Vaccines (3 - Td or Tdap) 09/30/2033 10/01/2023, 11/03/2007 Hepatitis B Vaccine Completed 03/18/2009, 06/14/2008, 05/12/2008 Pneumococcal Vaccine: 65+ Years Completed 03/28/2015, 03/20/2010, 11/15/2004 RETIRED - COLONOSCOPY-EVERY 5 YRS AGES 18-100 Discontinued 02/27/2017, 02/27/2017, 10/17/2004 Zoster Vaccines Completed 06/12/2021, 02/01, 11/04/2012 VITAMIN D LEVEL ONCE IN A LIFETIME-USE SMARTSET# [id number] Completed 06/27/2023, 11/06/2021, 12/28/2019, Additional history exists HPV (Gardasil) Vaccine Aged Out No lo nger eligible based on patient's age to complete this topic MENINGOCOCCAL (MENACTRA/MENVEO) Aged Out No longer eligible based on patient's age to complete this topic documented as of this encounter Medical Devices Implanted Type Area Social Work Supervisor Device Identifier Shelf Expiration Date Model / Serial / Lot Lens Intraoc 21.5 - [id number] - [id number] Implanted:Qty: 1 on 05/12/2019 by Yury Brady MD at OR [facility] Right: Eye [employer] 12/30/2023 [id number] / [id number] / [id number] Lens Intraoc 22.5 - [id number] - [id number] Implanted:Qty: 1 on 04/05/2020 by Yury Brady MD at OR [facility] Left: Eye [employer] 09/28/2024 [id number] / [id number] / [id number] documented as of this encounter Visit Diagnoses [...] artery of [place] heart without angina pectoris Branch retinal vein [...] Documents on File Type Date Recorded Patient Chargemaster Analyst Expl anation Advance Directives and Living [...] Agen t (per Health Care Power of Drill Press Tender document) Guille Urban Adult Child Health Care Agen t (per Health Care Power of Drill Press Tender document) Care Teams Life Insurance Actuary Relationship Specialty Start Date End Date Rafa Bergman MD [address] [place] [address] [place] [address] PCP - General Family Medicine 04/19/21 documented as of this encounter
--- OUTSIDE RECORDS SUMMARY | 2024-07-24 00:15 | External Medical Summary | Summary of Care ---
Author Name Unknown Organization [facility] Address [address] [place] [facility] [place] [address] Phone [phone] Care Team Providers Care Moisture Meter Reader Name Role Phone Rafa Bergman MD Primary Care Provide r Encounter Details Date Type Department Care Team (Late st Contact Info) Description 04/02/2024 Population Health External Data Unspecified Department Allergies Active Allergy Reactions Criticality Noted Date Comments Colchicine Diarrhea 06/16/2018 Daptomycin 01/05/2015 Shortness of breath Imipenem Edema airway High 01/05/2015 Metoprolol Low 01/23/2021 Other reaction(s): fatigue Zoledronic Acid 04/24/2012 Myalgias, fever, chills, vomiting x 2 days Sulfa Antibiotics 12/22/2002 Bactrim--itchy all over, eyes swollen documented as of this encounter (statuses as of 04/07/2024) Medications ASPIRIN 81 MG PO TABS Take [...] goal LDL below 70,Coronary artery disease involving cheesh-na coronary artery of cheesh-na heart without angina pectoris TAKE ONE TABLET BY MOUTH IN THE MORNING 90 Tablet 3 02/29/2024 11:02 AM EST 4 Active Propranolol HCl 10 MG Oral Tablet (Inderal)Indicat ions:Sinus tachycardia,Tach y-chintan syndrome (HCC),Coronary artery disease involving cheesh-na coronary artery of cheesh-na heart without angina pectoris,Presenc e of cardiac [...] as of this encounter (statuses as of 04/07/2024) Active Problems Problem Noted Date Diagnosed Date Nevus of 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 History of VT (myocardial infarction) 11/27/2022 History of pulmonary embolism [...] S/P angioplasty with stent 11/27/2018 Atherosclerosis of cheesh-na co ronary artery of cheesh-na heart without angina pectoris 07/08/2018 Overview (11/21/2023): history of NSTEMI status post AMIE to LAD (culprit) and RCA, 04/28/2018 Assessment & Plan (01/24/2024 4:40 PM EDT): Cardiac rehab at [facility] 2x week Assessment & Plan [...] as of this encounter (statuses as of 04/07/2024) Resolved Problems Problem Noted Date Diagnosed Date Resolved Date Purulent endophthalmitis of right eye 01/03/2023 11/08/2023 Other pulmonary embolism wit h acute cor pulmonale 10/01/2022 04/26/2023 Overview (04/26/2023): history Medical home patient encounter 09/13/2022 11/08/2023 Atherosclerosis of coronary artery of cheesh-na heart without angina pectoris 09/10/2022 10/31/2022 Hypothyroidism [...] filter 02/28/2015 Atherosclerotic heart diseas e of cheesh-na coronary artery with angina pectoris 11/2018 CKD (chronic kidney disease) stage 2, GFR 60-89 ml/min 03/12/2019 documented as of this encounter (statuses as of 04/07/2024) Immunizations Name Administration Dates Next Due COVID-19 [...] 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 Not on file Not on file documented as of this encounter Plan of Treatment Upcoming Encounters Date Type Department Care Team (Late st Contact Info) Description 04/20/2024 8:30 AM EST [facility] [address] [place] [address] Olinda Briggs RN [address] [place] [address] 04/30/2024 11:00 AM EST Home Visit [facility] [address] [place] [address] Leon Live PA-C [address] [place] [address] 05/07/2024 3:00 PM EST Office Visit Ophthalmology, [facility] [address] [place] [address] Pedro Tinsley DO [address] [place] [address] 05/12/2024 1:00 PM EST Office Visit Cardiology, [facility] [place] [address] Pricila Puga CRNP [address] [place] [address] [place] [address] 05/18/2024 11:20 AM EST Office Visit Neurology [facility] [address] [place] [address] Alfonso Manning MD [address] [place] [address] 06/25/2024 9:00 AM EDT Office Visit Family Medicine [address] [place] [phone] Rafa Bergman MD [address] [place] [address] [place] [address] 07/21/2024 10:00 AM EDT Imaging Radiology [facility] 132 [facility] [place] [phone] 08/18/2024 10:20 AM EDT Laboratory Laboratory [address] [place] [phone] [place] [address] 08/21/2024 3:00 PM EDT Office Visit Rheumatology [address] [place] [phone] José Miguel Cullen CRNP [facility] [place] [address] 08/25/2024 3:30 PM EDT Office Visit Hematology/Oncology [facility] [address] [facility] [place] [phone] Arianna Szymanski MD [address] [facility] [place] [address] 09/11/2024 12:50 PM EDT Office Visit Dermatology, [facility] Marilyn Elias [address] [place] [address] Dasha Nelson PA-C [address] [place] [address] 10/05/2024 1:30 PM EDT Office Visit Cardiology, [facility] [address] [place] [address] Charles Ortega O, [address] [place] [address] Health Maintenance Due Date Last Done Comments Adult Wellness Visit 02/06/2018 02/06/2017 Depression Screening 07/17/2022 07/17/2021 COVID-19 Vaccine ( season) 2023 02/05/2022, 08/02/2021, 02/28/2021, Additional history exists Influenza Vaccine (FLU shot) (#1) 2023 04/19/2023, 01/30/2022, 12/28/2020, Additional history exists Albumin/Creatinine Ratio 02/13/2024 023, 03/21/2022, 04/19/2021, Additional history exists HbA1c 04/26/2024 04/26/2023, 03/02, 04/19/2021, Additional history exists CKD PHOS USE SMARTSET 20825 06/26/202405/31, 04/19/2021, 11/27/2019, Additional history exists DXA Scan 07/18/2024 07/18/2022, 06/30, 12/22/2019, Additional history exists GFR 08/16/2024 02/17/2024, 08/0 08/2023, 06/27/2023, Additional history exists TSH 11/14/2024 11/15/2023, 07/0 05/2023, 08/21/2023, Additional history exists CKD HGB USE SMARTSET 66538 02/16/202502/16, 02/17/2024, 06/27/2023, Additional history exists DTap/Tdap Vaccines (3 - Td or Tdap) 09/30/2033 10/01/2023, 11/03/2007 Hepatitis B Vaccine Completed 03/18/2009, 06/14/2008, 05/12/2008 Pneumococcal Vaccine: 50+ Years Completed 03/28/2015, 03/20/2010, 11/15/2004 RETIRED - COLONOSCOPY-EVERY 5 YRS AGES 18-100 Discontinued 02/27/2017, 02/27/2017, 10/17/2004 Zoster Vaccines Completed 06/12/2021, 02/01, 11/04/2012 VITAMIN D LEVEL ONCE IN A LIFETIME-USE SMARTSET# 13007 Completed 06/27/2023, 11/06/2021, 12/28/2019, Additional history exists HPV (Gardasil) Vaccine Aged Out No lo nger eligible based on patient's age to complete this topic MENINGOCOCCAL (MENACTRA/MENVEO) Aged Out No longer eligible based on patient's age to complete this topic documented as of this encounter Medical Devices Implanted Type Area Texturing Machine Fixer Device Identifier Shelf Expiration Date Model / Serial / Lot Lens Intraoc 21.5 - [id number] - [id number] Implanted:Qty: 1 on 05/12/2019 by Yury Brady MD at OR [facility] Right: Eye [employer] 12/30/2023 [id number] / [id number] / [id number] Lens Intraoc 22.5 - [id number] - [id number] Implanted:Qty: 1 on 04/05/2020 by Yury Brady MD at OR [facility] Left: Eye [employer] 09/28/2024 [id number] / [id number] / [id number] documented as of this encounter Advance Directives Documents on File Type Date Recorded Patient Urgent Care Expl anation Advance Directives and Living Will [...] Communication Krissy Ordonez Adult Child Health Care Vika t (per Health Care Power of Deicer Repairer Electric document) Guille Urban Adult Child Health Care Ageleandra t (per Health Care Power of Deicer Repairer Electric document) [email or web address] om Care Teams Moisture Meter Reader Relationship Specialty Start Date End Date Rafa Bergman MD [address] [place] [address] [place] [address] PCP - General Family Medicine 04/19/21 documented as of this encounter
--- OUTSIDE RECORDS SUMMARY | 2024-07-24 00:15 | External Medical Summary | Summary of Care ---
Author Name Unknown Organization [facility] Address [address] [place] [address] Phone [phone] Care Team Providers Care Spinner Hydraulic Name Role Phone Rafa Bergman MD Primary Care Provide r Reason for Visit * Reason Onset Date Comments Advice 03/16/2024 Follow Up 03/16/2024 Encounter Details Date Type Department Care Team (Late st Contact Info) Description 03/16/2024 Telephone Family Medicine [address] [place] [phone] Rafa Bergman MD [address] [place] [address] [place] [phone] Advice; Follow Up Allergies Active Allergy Reactions Criticality Noted Date Comments Colchicine Diarrhea 06/16/2018 Daptomycin 01/05/2015 Shortness of breath Imipenem Edema airway High 01/05/2015 Metoprolol Low 01/23/2021 Other reaction(s): fatigue Zoledronic Acid 04/24/2012 Myalgias, fever, chills, vomiting x 2 days Sulfa Antibiotics 12/22/2002 Bactrim--itchy all over, eyes swollen documented as of this encounter (statuses as of 03/17/2024) Medications ASPIRIN 81 MG PO TABS Take [...] PAIN 25 Tablet 1 12/30/19 24 Active Allopurinol 300 MG Oral Tablet (Zyloprim) TAKE 1 & 1/2 TABLETS BY MOUTH EVERY DAY 135 Tablet 02/19/2024 2:12 PM EST 01/10/20 24 Active Apixaban 2.5 MG Oral Tablet (Eliquis)Indicat ions: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 180 Tablet 3 01/09/20 24 Active Pantoprazole Sodium 40 MG Oral Tablet Delayed Release (Protonix) Take 1 Tablet by mouth in the morning and 1 Tablet in the evening. 90 Tablet 3 01/29/2024 6:52 AM EDT 01/09/20 24 Active Rosuvastatin Calcium 5 MG Oral Tablet (Crestor)Indicat ions:Dyslipidemi a, goal LDL below 70,Coronary artery disease involving [place] coronary artery of [place] heart without angina pectoris TAKE ONE TABLET BY MOUTH IN THE MORNING 90 Tablet 3 02/29/2024 11:02 AM EST 01/10/20 24 Active Propranolol HCl 10 MG Oral Tablet (Inderal)Indicat ions:Sinus tachycardia,Tach y-chintan syndrome (HCC),Coronary artery disease involving [place] coronary artery of [place] heart without angina pectoris,Presenc e of cardiac pacemaker,Palpit ations,HTN, goal below 140/90 Take one-half Tablet by mouth in the morning and before bedtime. 90 Tablet 3 01/11/2024 8:04 AM EDT 01/10/20 24 Active Additional Information Patient taking [...] 90 Tablet 1 01/18/2024 2:38 PM EDT 01/10/20 24 Active Ondansetron HCl 4 MG Oral TabletIndication s:Nausea Take 1 Tablet by mouth every 8 hours as needed for Nausea. 30 Tablet 01/17/20 24 Active Famotidine 20 MG Oral Tablet (Pepcid) Take 1 Tablet by mouth at bedtime. 90 Tablet 3 01/24/20 24 Active Magnesium Oxide 400 MG Oral Capsule Take 1 Capsule by mouth in the morning. 30 Capsule 11 02/24/20 24 Active Riboflavin 400 MG Oral Tablet Take 1 Tablet by mouth in the morning. 30 Tablet 11 02/24/20 24 Active dilTIAZem HCl ER 360 MG Oral Tablet Extended Release 24 HourIndications: HTN, goal below 140/90,Tachy-bra dy syndrome (HCC) Take 1 Tablet by mouth in the morning. 30 Tablet 1 03/16/20 24 Active Verapamil HCl ER 240 MG Oral Tablet Extended Release (Isoptin SR) Take 1 Tablet by mouth in the morning and 1 Tablet before bedtime. 180 Tablet 2 02/20/2024 4:05 PM EST 01/10/20 24 024 Discontin ued(Medic ation List Clean Up) Hospital, [...] as of this encounter (statuses as of 03/17/2024) Active Problems Problem Noted Date Diagnosed Date Nevus of 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 History of [place] (myocardial infarction) 11/27/2022 History of pulmonary embolism [...] angioplasty with stent 11/27/2018 Atherosclerosis of [place] co ronary artery of [place] heart without angina pectoris 07/08/2018 Overview (11/21/2023): history of NSTEMI status post AMIE to LAD (culprit) and RCA, 04/28/2018 Assessment & Plan (01/24/2024 4:40 PM EDT): Cardiac rehab at [facility] 2x week Assessment & Plan (11/21/2023 [...] as of this encounter (statuses as of 03/17/2024) Resolved Problems Problem Noted Date Diagnosed Date Resolved Date Purulent endophthalmitis of right eye 01/03/2023 11/08/2023 Other pulmonary embolism wit h acute cor pulmonale 10/01/2022 04/26/2023 Overview (04/26/2023): history Medical home patient encounter 09/13/2022 11/08/2023 Atherosclerosis of coronary artery of [place] heart without angina pectoris 09/10/2022 10/31/2022 Hypothyroidism [...] 02/28/2015 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 * Telephone Encounter - Rafa Bergman MD - 03/16/2024 9:27 AM EST Spoke to the pt - discussed the change in medication with cardiology --- per them it is reasonable to try the change considering the SE pt is experiencing - pt was on Diltiazem ER 360mg daily Plan: - stop the verapamil med after the 2nd dose - start the dilt next morning - daily HR and BP check - Nurse visit on 03/26 for Bp and HR check documented in this encounter Plan of Treatment Upcoming Encounters Date Type Department Care Team (Late st Contact Info) Description 03/18/2024 2:15 PM EST Office Visit Ophthalmology, [facility] [address] [facility] [place] [address] Pedro Tinsley, DO [address] [place] [address] 03/26/2024 1:00 PM EST Nurse Only Ancillary [address] [place] [address] [place], Nurse [address] [place] [address] 03/31/2024 4:00 PM EST [facility] [address] [facility] [place] [address] Olinda Briggs RN [facility] [place], [place] [address] 04/30/2024 11:00 AM EST Home Visit [facility] [address] [facility] [place] [address] Leon Live PA-C [facility] [place] [address] 05/12/2024 1:00 PM EST Office Visit Cardiology, [facility] [address] [facility] [place] [address] Pricila Puga CRNP [address] [place] [address] 05/18/2024 11:20 AM EST Office Visit Neurology [facility] [address] [facility] [place] [address] Alfonso Manning MD [address] [place] [address] 05/22/2024 3:45 PM EST Office Visit Dermatology [facility] [address] [place] [address] Guy Trivedi MD [address] [place] [address] 06/25/2024 9:00 AM EDT Office Visit Family Medicine [address] [place] [phone] Rafa Bergman MD [address] [place] [address] [place] [address] 07/21/2024 10:00 AM EDT Imaging Radiology [facility] [address] [place] [phone] 08/18/2024 10:20 AM EDT Laboratory Laboratory [address] [place] [phone] [place] [address] 08/25/2024 3:30 PM EDT Office Visit Hematology/Oncology [facility] [address] [place] [phone] Arianna Szymanski MD [address] [place] [address] 09/04/2024 1:00 PM EDT Office Visit Rheumatology [address] [place] [phone] Deangelo Holley MD [address] [place] [address] [place] [address] 10/05/2024 1:30 PM EDT Office Visit Cardiology, [facility] [address] [place] [address] Charles Ortega, [address] [place] [address] Health Maintenance Due Date Last Done Comments Adult Wellness Visit 02/06/2018 02/06/2017 Depression Screening 07/17/2022 07/17/2021 COVID-19 Vaccine ( season) 2023 02/05/2022, 08/02/2021, 02/28/2021, Additional history exists Influenza Vaccine (FLU shot) (#1) 2023 04/19/2023, 01/30/2022, 12/28/2020, Additional history exists Albumin/Creatinine Ratio 02/13/2024 023, 03/21/2022, 04/19/2021, Additional history exists HbA1c 04/26/2024 04/26/2023, 03/02, 04/19/2021, Additional history exists CKD PHOS USE SMARTSET 80253 06/26/202405/31, 04/19/2021, 11/27/2019, Additional history exists DXA Scan 07/18/2024 07/18/2022, 06/30, 12/22/2019, Additional history exists GFR 08/16/2024 02/17/2024, 08/0 08/2023, 06/27/2023, Additional history exists TSH 11/14/2024 11/15/2023, 07/0 05/2023, 08/21/2023, Additional history exists CKD HGB USE SMARTSET 18321 02/16/202502/16, 02/17/2024, 06/27/2023, Additional history exists DTap/Tdap Vaccines (3 - Td or Tdap) 09/30/2033 10/01/2023, 11/03/2007 Hepatitis B Vaccine Completed 03/18/2009, 06/14/2008, 05/12/2008 Pneumococcal Vaccine: 65+ Years Completed 03/28/2015, 03/20/2010, 11/15/2004 RETIRED - COLONOSCOPY-EVERY 5 YRS AGES 18-100 Discontinued 02/27/2017, 02/27/2017, 10/17/2004 Zoster Vaccines Completed 06/12/2021, 02/01, 11/04/2012 VITAMIN D LEVEL ONCE IN A LIFETIME-USE SMARTSET# [id number] Completed 06/27/2023, 11/06/2021, 12/28/2019, Additional history exists HPV (Gardasil) Vaccine Aged Out No lo nger eligible based on patient's age to complete this topic MENINGOCOCCAL (MENACTRA/MENVEO) Aged Out No longer eligible based on patient's age to complete this topic documented as of this encounter Medical Devices Implanted Type Area Clean In Places Operator Device Identifier Shelf Expiration Date Model / Serial / Lot Lens Intraoc 21.5 - [id number] - [id number] Implanted:Qty: 1 on 05/12/2019 by Yury Brady MD at OR [facility] Right: Eye [employer] 12/30/2023 [id number] / [id number] / [id number] Lens Intraoc 22.5 - [id number] - [id number] Implanted:Qty: 1 on 04/05/2020 by Yury Brady MD at OR [facility] Left: Eye [employer] 09/28/2024 [id number] / [id number] / [id number] documented as of this encounter Visit Diagnoses Diagnosis Hypertensive kidney disease with stage 3a chronic kidney disease- Primary Atherosclerosis of [place] coronary artery of [place] heart without angina pectoris Dyslipidemia, goal LDL below 70 Other and unspecified hyperlipidemia History of pulmonary embolism Personal history of pulmonary embolism Tachy-chintan syndrome (HCC) Sinoatrial node dysfunction S/P placement of cardiac pacemaker Cardiac pacemaker in situ Arthralgia of right hip Gastro-esophageal reflux disease with esophagitis, without bleeding Sinus tachycardia Other specified cardiac dysrhythmias Coronary artery disease involving [place] coronary artery of [place] heart without angina pectoris Presence of cardiac pacemaker Cardiac pacemaker in situ Palpitations HTN, goal below 140/90 Unspecified essential hypertension Hypertensive kidney disease with stage 3a chronic kidney disease- Primary Dyslipidemia, goal LDL below 70 Other and unspecified hyperlipidemia Gastro-esophageal reflux disease with esophagitis, without bleeding Atherosclerosis of [place] coronary artery of [place] heart without angina pectoris HTN, goal below 140/90- Primary Unspecified essential hypertension Tachy-chintan syndrome (HCC) Sinoatrial node dysfunction documented in this encounter Advance Directives Documents on File Type Date Recorded Patient Sales Enablement Consultant Expl anation Advance Directives and Living [...] Agen t (per Health Care Power of Farm Contractor Buyer document) Guille Urban Adult Child Health Care Agen t (per Health Care Power of Farm Contractor Buyer document) Care Teams Spinner Hydraulic Relationship Specialty Start Date End Date Rafa Bergman MD [address] [place] [address] [place] [phone] PCP - General Family Medicine 04/19/21 documented as of this encounter
--- OUTSIDE RECORDS SUMMARY | 2024-07-24 00:15 | External Medical Summary ---
Author Name Unknown Address Unknown Organization K01:[facility] - [address] [place] [address] Laboratory Report Ordering Provider Test Date Status GAVIN FLORES 04/08/2024 11:07:05 Marion l Observation Date Value Abnormality Reference (Units ) Status T4, Free 04/08/2024 11:07:05 1.4 0.9-1.7 (n g/dL) Final Performing Location [facility] - [address] [place] [id number]
--- OUTSIDE RECORDS SUMMARY | 2024-07-24 00:16 | External Medical Summary | Summary of Care ---
Author Name Unknown Organization [facility] Address [address] [place] [address] Phone [phone] Care Team Providers Care Group Therapy Counselor Name Role Phone Rafa Bergman MD Primary Care Provide r Reason for Visit * Reason Onset Date Comments Health Maintenance 02/26/2024 Encounter Details Date Type Department Care Team (Late st Contact Info) Description 02/26/[address] [place] [phone] Rafa Bergman MD [address] [place] [address] [place] [address] Health Maintenance Allergies Active Allergy Reactions Criticality Noted Date Comments Colchicine Diarrhea 06/16/2018 Daptomycin 01/05/2015 Shortness of breath Imipenem Edema airway High 01/05/2015 Metoprolol Low 01/23/2021 Other reaction(s): fatigue Zoledronic Acid 04/24/2012 Myalgias, fever, chills, vomiting x 2 days Sulfa Antibiotics 12/22/2002 Bactrim--itchy all over, eyes swollen documented as of this encounter (statuses as of 02/26/2024) Medications ASPIRIN 81 MG PO TABS Take [...] daily as needed for Constipation. 3 Active Nystatin 573013 UNIT/GM External Powder (Nystop)Indicati ons:Rash and nonspecific skin eruption Apply topically to affected area 2 times a day. Apply to the affected area 60 g 4 Active Additional Information Patient not taking.Reported on 02/24/2024 Nitroglycerin 0.4 MG Sublingual Tablet Sublingual (Nitrostat) [...] below 70,Coronary artery disease involving [place] coronary artery of [place] heart without angina pectoris TAKE ONE TABLET BY MOUTH IN THE MORNING 90 Tablet 3 4 Active Propranolol HCl 10 MG Oral Tablet (Inderal)Indicat ions:Sinus tachycardia,Tach y-chintan syndrome (HCC),Coronary artery disease involving [place] coronary artery of [place] heart without angina pectoris,Presenc e of cardiac pacemaker,Palpit ations,HTN, goal below 140/90 Take one-half Tablet by mouth in the morning and before bedtime. 90 Tablet 3 01/11/2024 8:04 AM EDT 4 Active Levothyroxine Sodium 125 MCG Oral Tablet (Levoxyl)Indicat ions:Hypothyroid ism (acquired) Take 1 Tablet by mouth daily first thing in the morning. (at least 30 min prior to breakfast or other meds) 90 Tablet 2 4 Active Verapamil HCl ER 240 MG Oral Tablet Extended Release (Isoptin SR) Take 1 Tablet by mouth in the morning and 1 Tablet before bedtime. 180 Tablet 2 02/20/2024 4:05 PM EST 4 Active Vitamin B-12 1000 [...] at bedtime. 90 Tablet 3 4 Active predniSONE 10 MG Oral Tablet (Deltasone)Indic ations:Arthralgi a, unspecified joint Take 5 tabs for 2 days, 4 tabs for 2 days, 3 tabs for 2 days, 2 tabs for 2 days 1 tab for 2 days 30 Tablet 4 Active Magnesium Oxide 400 MG Oral Capsule Take 1 Capsule by mouth in the morning. 30 Capsule 11 4 Active Riboflavin 400 MG Oral Tablet Take 1 Tablet by mouth in the morning. 30 Tablet 11 4 Active Hospital, Clinic, or Other Facility [...] as of this encounter (statuses as of 02/26/2024) Active Problems Problem Noted Date Diagnosed Date Nevus of 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 History of [place] (myocardial infarction) 11/27/2022 History of pulmonary embolism [...] with stent 11/27/2018 Atherosclerosis of [place] co ronary artery of [place] heart without angina pectoris 07/08/2018 Overview (11/21/2023): history of NSTEMI status post AMIE to LAD (culprit) and RCA, 04/28/2018 Assessment & Plan (01/24/2024 4:40 PM EDT): Cardiac rehab at [facility] 2x week Assessment & Plan (11/21/2023 [...] as of this encounter (statuses as of 02/26/2024) Resolved Problems Problem Noted Date Diagnosed Date Resolved Date Purulent endophthalmitis of right eye 01/03/2023 11/08/2023 Other pulmonary embolism wit h acute cor pulmonale 10/01/2022 04/26/2023 Overview (04/26/2023): history Medical home patient encounter 09/13/2022 11/08/2023 Atherosclerosis of coronary artery of [place] heart without angina pectoris 09/10/2022 10/31/2022 Hypothyroidism [...] Atherosclerotic heart diseas e of [place] coronary artery with angina pectoris 11/2018 CKD (chronic kidney disease) stage 2, GFR 60-89 ml/min 03/12/2019 documented as of this encounter (statuses as of 02/26/2024) Immunizations Name Administration Dates Next Due COVID-19 [...] 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 Not on file 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 file Not on file Not on file documented as of this encounter Miscellaneous Notes * Telephone Encounter - Margarita Hinojosa LPN - 02/26/2024 8:29 AM EST Care Gaps Comprehensive Care Outreach Last Office/Telemedicine Visit: 02/14/2024 (in office), Visit date not found (telemedicine) Next Office Visit: 06/25/2024 Hemoglobin AIC Results: Lab Results Component Value Date/Time HEMOGLOBIN A1C - [facility] 5.5 04/26/2023 02:53 PM HEMOGLOBIN A1C - [facility] 5.7 (H) 03/21/2022 09:15 AM HEMOGLOBIN A1C - [facility] 6.2 (H) 04/19/2021 10:40 AM HEMOGLOBIN A1C - [facility] 5.7 08/27/2008 04:40 PM BP Readings from Last 1 Encounters: 02/25/24 114/73 Reviewed Health Maintenance below: Health Maintenance Topic Date Due Adult Wellness Visit 02/06/2018 Depression Screening 07/17/2022 Influenza Vaccine (FLU shot) (1) 12/01/2023 COVID-19 Vaccine ( season) 2023 Albumin/Creatinine Ratio 02/13/2024 HbA1c 04/26/2024 CKD PHOS USE SMARTSET 11645 06/26/2024 Awv labs Care Gap Outreach Action Taken: Left message documented in this encounter Plan of Treatment Upcoming Encounters Date Type Department Care Team (Late st Contact Info) Description 03/18/2024 2:15 PM EST Office Visit Ophthalmology, [facility] [address] [facility] [place] [address] Pedro Tinsley DO [address] [place] [address] 03/19/2024 4:00 PM EST [facility] Visit [facility] [address] [facility] [place] [address] Olinda Briggs RN [address] [place] [address] 04/30/2024 11:00 AM EST Home Visit [facility], [facility] [address] [facility] [place] [address] Leon Live PA-C [address] [place] [address] 05/18/2024 11:20 AM EST Office Visit Neurology [facility] [address] [facility] [place] [address] Alfonso Manning MD [address] [facility] [place] [address] 05/22/2024 3:45 PM EST Office Visit Dermatology [facility] [address] [facility] [place] [address] Guy Trivedi MD [address] [facility] [place] [address] 06/16/2024 10:00 AM EDT Office Visit Neurology [address] [place] [phone] Glory Keith MD [address] [facility] [place] [address] 06/25/2024 9:00 AM EDT Office Visit Family Medicine [address] [place] [phone] Rafa Bergman MD [address] [place] [address] [place] [address] 07/21/2024 10:00 AM EDT Imaging Radiology, [address] [place] [address] 08/18/2024 10:20 AM EDT Laboratory Laboratory [address] [place] [phone] [facility] [address] [place] [address] 08/25/2024 3:30 PM EDT Office Visit Hematology/Oncology [facility] [address] [place] [phone] Arianna Szymanski MD [address] [place] [address] 09/04/2024 1:00 PM EDT Office Visit Rheumatology [address] [place] [phone] Deangelo Holley MD [address] [place] [address] [place] [address] Health Maintenance Due Date Last Done Comments Adult Wellness Visit 02/06/2018 02/06/2017 Depression Screening 07/17/2022 07/17/2021 COVID-19 Vaccine ( season) 2023 02/05/2022, 08/02/2021, 02/28/2021, Additional history exists Influenza Vaccine (FLU shot) (#1) 2023 04/19/2023, 01/30/2022, 12/28/2020, Additional history exists Albumin/Creatinine Ratio 02/13/202402/12/ 023, 03/21/2022, 04/19/2021, Additional history exists HbA1c 04/26/2024 04/26/2023, 03/02, 04/19/2021, Additional history exists CKD PHOS USE SMARTSET 75146 06/26/202405/31, 04/19/2021, 11/27/2019, Additional history exists DXA Scan 07/18/2024 07/18/2022, 06/30, 12/22/2019, Additional history exists GFR 08/16/2024 02/17/2024, 08/0 08/2023, 06/27/2023, Additional history exists TSH 11/14/2024 11/15/2023, 07/0 05/2023, 08/21/2023, Additional history exists CKD HGB USE SMARTSET 74622 02/16/202502/16, 02/17/2024, 06/27/2023, Additional history exists DTap/Tdap Vaccines (3 - Td or Tdap) 09/30/2033 10/01/2023, 11/03/2007 Hepatitis B Vaccine Completed 03/18/2009, 06/14/2008, 05/12/2008 Pneumococcal Vaccine: 65+ Years Completed 03/28/2015, 03/20/2010, 11/15/2004 RETIRED - COLONOSCOPY-EVERY 5 YRS AGES 18-100 Discontinued 02/27/2017, 02/27/2017, 10/17/2004 Zoster Vaccines Completed 06/12/2021, 02/01, 11/04/2012 VITAMIN D LEVEL ONCE IN A LIFETIME-USE SMARTSET# [id number] Completed 06/27/2023, 11/06/2021, 12/28/2019, Additional history exists HPV (Gardasil) Vaccine Aged Out No lo nger eligible based on patient's age to complete this topic MENINGOCOCCAL (MENACTRA/MENVEO) Aged Out No longer eligible based on patient's age to complete this topic documented as of this encounter Medical Devices Implanted Type Area Roll Operator Device Identifier Shelf Expiration Date Model / Serial / Lot Lens Intraoc 21.5 - [id number] - [id number] Implanted:Qty: 1 on 05/12/2019 by Yury Brady MD at OR [facility] Right: Eye [employer] 12/30/2023 [id number] / [id number] / [id number] Lens Intraoc 22.5 - [id number] - [id number] Implanted:Qty: 1 on 04/05/2020 by Yury Brady MD at OR [facility] Left: Eye [employer] 09/28/2024 [id number] / [id number] / [id number] documented as of this encounter Advance Directives Documents on File Type Date Recorded Patient Converting Technician Expl anation Advance Directives and Living [...] Agen t (per Health Care Power of Wad Lubricator document) Guille Urban Adult Child Health Care Agen t (per Health Care Power of Wad Lubricator document) Care Teams Group Therapy Counselor Relationship Specialty Start Date End Date Rafa Bergman MD [address] [place] [address] [place] [address] PCP - General Family Medicine 04/19/21 documented as of this encounter
--- OUTSIDE RECORDS SUMMARY | 2024-07-24 00:16 | External Medical Summary | Summary of Care ---
Author Name Unknown Organization [facility] Address [address] [place] [address] Phone [phone] Care Team Providers Care Video Conference Specialist Name Role Phone Rafa Bergman MD Primary Care Provide r Reason for Visit * Reason Onset Date Comments [facility]: Engagement 03/02/2024 Encounter Details Date Type Department Care Team (Late st Contact Info) Description 03/02/2024 Telephone [facility] [place] [address] [place] [address] Emily Grant, ASHLEY [address], [place] [id number] [facility]: Engagement Allergies Active Allergy Reactions Criticality Noted Date Comments Colchicine Diarrhea 06/16/2018 Daptomycin 01/05/2015 Shortness of breath Imipenem Edema airway High 01/05/2015 Metoprolol Low 01/23/2021 Other reaction(s): fatigue Zoledronic Acid 04/24/2012 Myalgias, fever, chills, vomiting x 2 days Sulfa Antibiotics 12/22/2002 Bactrim--itchy all over, eyes swollen documented as of this encounter (statuses as of 03/02/2024) Medications ASPIRIN 81 MG PO TABS Take [...] as needed for Constipation. 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 documented in this encounter Plan of Treatment Upcoming Encounters Date Type Department Care Team (Late st Contact Info) Description 03/18/2024 2:15 PM EST Office Visit Ophthalmology, [facility] [address] [address] Pedro Tinsley DO [address] [address] 03/31/2024 4:00 PM EST [facility] Visit [facility] [place], [facility] [address] [address] Olinda Briggs RN [address] [address] 04/30/2024 11:00 AM EST Home Visit [facility] [place], [facility] [address] [address] Leon Live PA-C [address] [place] [address] 05/18/2024 11:20 AM EST Office Visit Neurology [facility] [place] [address] [place] [phone] Alfonso Manning MD [address] [place] [address] 05/22/2024 3:45 PM EST Office Visit Dermatology [facility] [address] [place] [address] Guy Trivedi MD [address] [place] [address] 06/16/2024 10:00 AM EDT Office Visit Neurology [address] [place] [phone] Glory Keith MD [address] [facility] [place] [phone] 06/25/2024 9:00 AM EDT Office Visit Family Medicine [address] [place] [phone] Rafa Bergman MD [address] [place] [address] [place] [address] 07/21/2024 10:00 AM EDT Imaging Radiology, [address] [place] [address] 08/18/2024 10:20 AM EDT Laboratory Laboratory [address] [place] [phone] [place] [address] 08/25/2024 3:30 PM EDT Office Visit Hematology/Oncology [facility] [address] [place] [phone] Arianna Szymanski MD [address] [place] [address] 09/04/2024 1:00 PM EDT Office Visit Rheumatology [address] [place] [phone] Deangelo Holley MD [address] [facility] [place] [address] Health Maintenance Due Date Last Done Comments Adult Wellness Visit 02/06/2018 02/06/2017 Depression Screening 07/17/2022 07/17/2021 COVID-19 Vaccine ( season) 2023 02/05/2022, 08/02/2021, 02/28/2021, Additional history exists Influenza Vaccine (FLU shot) (#1) 2023 04/19/2023, 01/30/2022, 12/28/2020, Additional history exists Albumin/Creatinine Ratio 02/13/2024 023, 03/21/2022, 04/19/2021, Additional history exists HbA1c 04/26/2024 04/26/2023, 03/02, 04/19/2021, Additional history exists CKD PHOS USE SMARTSET 69733 06/26/202405/31, 04/19/2021, 11/27/2019, Additional history exists DXA Scan 07/18/2024 07/18/2022, 06/30, 12/22/2019, Additional history exists GFR 08/16/2024 02/17/2024, 08/0 08/2023, 06/27/2023, Additional history exists TSH 11/14/2024 11/15/2023, 07/0 05/2023, 08/21/2023, Additional history exists CKD HGB USE SMARTSET 90672 02/16/202502/16, 02/17/2024, 06/27/2023, Additional history exists DTap/Tdap Vaccines (3 - Td or Tdap) 09/30/2033 10/01/2023, 11/03/2007 Hepatitis B Vaccine Completed 03/18/2009, 06/14/2008, 05/12/2008 Pneumococcal Vaccine: 65+ Years Completed 03/28/2015, 03/20/2010, 11/15/2004 RETIRED - COLONOSCOPY-EVERY 5 YRS AGES 18-100 Discontinued 02/27/2017, 02/27/2017, 10/17/2004 Zoster Vaccines Completed 06/12/2021, 02/01, 11/04/2012 VITAMIN D LEVEL ONCE IN A LIFETIME-USE SMARTSET# [id number] Completed 06/27/2023, 11/06/2021, 12/28/2019, Additional history exists HPV (Gardasil) Vaccine Aged Out No lo nger eligible based on patient's age to complete this topic MENINGOCOCCAL (MENACTRA/MENVEO) Aged Out No longer eligible based on patient's age to complete this topic documented as of this encounter Medical Devices Implanted Type Area Loader Technician Device Identifier Shelf Expiration Date Model / Serial / Lot Lens Intraoc 21.5 - [id number] - [id number] Implanted:Qty: 1 on 05/12/2019 by Yury Brady MD at OR [facility] Right: Eye [employer] 12/30/2023 [id number] / [id number] / [id number] Lens Intraoc 22.5 - [id number] - [id number] Implanted:Qty: 1 on 04/05/2020 by Yury Brady MD at OR [facility] Left: Eye [employer] 09/28/2024 [id number] / [id number] / [id number] documented as of this encounter Advance Directives Documents on File Type Date Recorded Patient Analysis Lead Expl anation Advance Directives and Living [...] Agen t (per Health Care Power of Legal Editor document) Guille Urban Adult Child Health Care Agen t (per Health Care Power of Legal Editor document) Care Teams Video Conference Specialist Relationship Specialty Start Date End Date Rafa Bergman MD [address] [place] [address] [place] [phone] PCP - General Family Medicine 04/19/21 documented as of this encounter
--- OUTSIDE RECORDS SUMMARY | 2024-07-24 00:16 | External Medical Summary | Summary of Care ---
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 Name Role Phone Rafa Bergman MD Primary Care Provide r Reason for Visit * Reason Comments NEW PATIENT headaches * Evaluate & Treat - Unlimited Visits (Within 30 days (routine)) - Authorized Specialty Diagnoses / Procedures Referred By Ethan nicole Referred To Contact Neurology Diagnoses Migraine variant Rafa Bergman MD [address] [place] [address] [place] [address] Phone: tel: fax: Referral ID Status Reason Start Date Expiration Date Visits Requested Visits Authorized [id number] Authorized Specialty Services Required [id number] [phone] Encounter Details Date Type Department Care Team (Late st Contact Info) Description 02/24/2024 1:00 PM EST Office Visit Neurology [facility] [address] [facility] [place] [address] Alfonso Manning MD [address] [facility] [place] [address] Migraine without aura and without status migrainosus, not intractable* Allergies Active Allergy Reactions Criticality Noted Date Comments Colchicine Diarrhea 06/16/2018 Daptomycin 01/05/2015 Shortness of breath Imipenem Edema airway High 01/05/2015 Metoprolol Low 01/23/2021 Other reaction(s): fatigue Zoledronic Acid 04/24/2012 Myalgias, fever, chills, vomiting x 2 days Sulfa Antibiotics 12/22/2002 Bactrim--itchy all over, eyes swollen documented as of this encounter (statuses as of 02/24/2024) Medications ASPIRIN 81 MG PO TABS Take [...] as needed for Constipation. 03/26/20 23 Active Nystatin 834672 UNIT/GM External Powder (Nystop)Indicati ons:Rash and nonspecific skin eruption Apply topically to affected area 2 times a day. Apply to the affected area 60 g 06/05/19 24 Active Additional Information Patient not taking.Reported on [...] goal LDL below 70,Coronary artery disease involving [place]or[place] coronary artery of [place] heart without angina pectoris TAKE ONE TABLET BY MOUTH IN THE MORNING 90 Tablet 3 01/10/20 24 Active Propranolol HCl 10 MG Oral Tablet (Inderal)Indicat ions:Sinus tachycardia,Tach y-chintan syndrome (HCC),Coronary artery disease involving [place] coronary artery of [place] heart without angina pectoris,Presenc e of cardiac pacemaker,Palpit ations,HTN, goal below 140/90 Take one-half Tablet by mouth in the morning and before bedtime. 90 Tablet 3 01/11/2024 8:04 AM EDT 01/10/20 24 Active Levothyroxine Sodium 125 MCG Oral Tablet (Levoxyl)Indicat ions:Hypothyroid ism (acquired) Take 1 Tablet by mouth daily first thing in the morning. (at least 30 min prior to breakfast or other meds) 90 Tablet 2 01/10/20 24 Active Verapamil HCl ER 240 MG Oral Tablet Extended Release (Isoptin SR) Take 1 Tablet by mouth in the morning and 1 Tablet before bedtime. 180 Tablet 2 02/20/2024 4:05 PM EST 01/10/20 24 Active Vitamin B-12 [...] bedtime. 90 Tablet 3 01/24/20 24 Active predniSONE 10 MG Oral Tablet (Deltasone)Indic ations:Arthralgi a, unspecified joint Take 5 tabs for 2 days, 4 tabs for 2 days, 3 tabs for 2 days, 2 tabs for 2 days 1 tab for 2 days 30 Tablet 02/17/20 Active Magnesium Oxide 400 MG Oral Capsule Take 1 Capsule by mouth in the morning. 30 Capsule 02/24/20 Active Riboflavin 400 MG Oral Tablet Take 1 Tablet by mouth in the morning. 30 Tablet 11 02/24/20 24 Active Spironolactone 25 MG Oral Tablet (Aldactone)Indic ations:Dyslipide teri, goal LDL below 70 Take 0.5 Tablets by mouth daily as needed (swelling). 90 Tablet 1 02/14/2024 4:11 PM EST 01/24/20 024 Discontin ued(Medic ation List Clean Up) Topiramate 25 MG Oral Tablet (Topamax)Indicat ions:Migraine variant Take 1 Tablet by mouth every night at bedtime. 30 Tablet 1 02/14/20 24 024 Discontin ued(Medic ation List Clean [...] as of this encounter (statuses as of 02/24/2024) Active Problems Problem Noted Date Diagnosed Date [...] S/P angioplasty with stent 11/27/2018 Atherosclerosis of [place] co ronary artery of [place] heart without angina pectoris 07/08/2018 Overview (11/21/2023): [...] as of this encounter (statuses as of 02/24/2024) Resolved Problems Problem Noted Date Diagnosed Date Resolved Date Purulent endophthalmitis of right eye 01/03/2023 11/08/2023 Other pulmonary embolism wit h acute cor pulmonale 10/01/2022 04/26/2023 Overview (04/26/2023): history Medical home patient encounter 09/13/2022 11/08/2023 Atherosclerosis of coronary artery of [place] heart without angina pectoris 09/10/2022 10/31/2022 Hypothyroidism [...] filter 02/28/2015 Atherosclerotic heart diseas e of [place] coronary artery with angina pectoris 11/2018 CKD (chronic kidney disease) stage 2, GFR 60-89 ml/min 03/12/2019 documented as of this encounter (statuses as of 02/24/2024) Immunizations Name Administration Dates Next Due COVID-19 [...] 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 Not on 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 Not on file 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 Not on file Not on file Not on file documented as of this encounter Last Filed Vital Signs Vital Sign Reading Time Taken Comments Blood Pressure 146/87 02/24/2024 12:52 PM EST Pulse 109 02/24/2024 12:52 PM EST Temperature 36.9 °C (98.4 °F) 02/24/2024 12:[address] Respiratory Rate - - Oxygen Saturation - - Inhaled Oxygen Concentration - - Weight 74.7 kg (164 lb 9.6 oz) 02/24/2024 12:52 PM EST Height 160 cm (5' 3") 02/24/2024 12:52 PM EST Body Mass Index 29.16 02/24/2024 12:52 PM EST documented in this encounter Progress Notes * Alfonso Manning MD - 02/24/2024 1:36 PM EST CLINIC NOTES Neurology [facility] [place] [address] [facility] [place] [address] Rehana Moran [id number] NEUROLOGY OUTPATIENT NOTE 02/24/2024 HISTORY: Rehana is 79 years old is retired 4 year and is referred today by for evaluation of 30 years of periodic headaches which have been always attributed to sinus disease sometimes respond to antibiotics but often do not and occur once a month but can last up to several weeks time. Initially they were of relatively low-frequency but over the past several years they become more frequent and prolonged to the point that she now estimates she has 10 headache days per month and while she is able to function the pain is quite bothersome and she has been trying to use Excedrin cautiously for the. She is already on Eliquis for DVT has a little concerned about combining Excedrin with this although the dosage she describes is still relatively low and probably in the safe range twice a day She was started on Topamax about a month ago the dose was buildup but she could not tolerate. She is already on verapamil in low-dose Inderal for headaches and the verapamil may be associated with some hypotension in his doses being reduced and she really can not tolerate the Inderal fatigue factorso she has not responded to 3 standard migraine drugs or has had intolerance to 3 She has never been I magnesium oxide riboflavin a tricyclic antidepressant gabapentin etcetera and certainly has never been on triptan nor should she be at her age and has not been on a calcitonin gene receptor protein antagonist Her other health issues are well outlined and are pretty stable but she does have coronary disease with angina and certainly would not be a triptan candidate on this basis She has not been hospitalized recently nor has she had any recent surgical procedures but has had bilateral knee replacements since still has a lot of arthritic issues or least knee pain She is has 2 children both of whom suffer from periodic migraines Despite the long duration of her history in the family history the diagnosis of migraine is only recently been considered as a cause of her headaches Imaging is never really shown any inflammatory changes in his paranasal sinuses in the history suggests that she often has had several weeks of headache before antibiotics are started at which point the headache resolves but probably was going to anyway Past Medical History: Diagnosis Date Allergic rhinitis Atherosclerotic heart disease of [place] coronary artery with angina pectoris ([facility]) Benign neoplasm of skin Benign paroxysmal vertigo 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 10/28/2013 Chronic sinusitis 10/28/2013 CKD (chronic kidney disease) stage 2, GFR 60-89 ml/min Degenerative disc disease, cervical 05/18/2016 Derangement of meniscus right knee Diverticulitis of colon DVT (deep venous thrombosis) ([facility]) 02/28/2015 Dyslipidemia, goal LDL below 100 [...] rt shoulder NSTEMI (non-ST elevated myocardial infarction) ([facility]) 04/28/2018 [facility], cathed and LAD stented with [...] to hypertension, elevated TSH, small pericardial effusion [facility] Pericarditis as complication of acute myocardial infarction ([facility]) 05/15/2018 [facility] colchicine not tolerated well. Pericarditis as complication of acute myocardial infarction ([facility]) 06/05/2018 [facility] steroids Postmenopausal atrophic vaginitis 09/15/2013 Presence of vena cava filter PROLAPSE OF VAGINAL WALL 10/28/2000 Pulmonary embolism and infarction (HCC) 08/30/2009 Pulmonary embolus (HCC) 2000 Purulent endophthalmitis of right eye 01/03/2023 Recurrent sinus infections 08/13/2017 Retroperitoneal bleed 02/28/2015 Sebaceous hyperplasia, Rt forehead 10/05/97 01/28/2002 Senile osteoporosis 05/14/2008 Traumatic rupture of left posterior tibial tendon 12/07/2014 Urinary frequency 09/15/2013 Viral warts, unspecified Condylomata Vitamin B12 deficiency 05/12/2014 Vitamin D insufficiency 05/12/2014 Past Surgical History: Procedure Laterality Date ARTHROPLASTY KNEE TOTAL 08/18/2009 right knee ARTHROPLASTY KNEE TOTAL 11/11/2014 left knee- [facility]- Dr. Lopez CARDIAC CATH-CARDIOLOGY ONLY 04/28/2018 AMIE to LAD, PCI to RCA COLONOSCOPY 09/2004 diverticulosis COLONOSCOPY, DIAGNOSTIC (RECTUM) 02/27/2017 diverticulosis, repeat 5 yrs/COLONOSCOPY FLEXIBLE PROXIMAL DIAGNOSTIC performed by Ford Pantoja MD at ENDOSCOPY [facility] CTA CHEST NON-CORONARY W CONTRAST [...] 02/04/2024 # 50 Eylea OD, Dr. Tinsley IR FILTER PLACEMENT VENA CAVA 10/2014 [facility] MISCELLANEOUS ORDER ([facility] ONLY) 12/02/2013-12/02/2014 [...] ONLY) Right 02/17/2019-02/18/2020 Eylea OD Consent signed, MISCELLANEOUS ORDER ([facility] ONLY) Right EYLEA OD CONSENT SIGNED DR. TINSLEY 03/22/20-03/22/21 MRI KNEE WO CONTRAST 02/23/2009 medial menisus tear, OA, right knee, 611 MRI OTHER (INFORMATION) Right EYLEA OD CONSENT SIGNED, Dr. Tinsley (Exp 03-29-2022) OTHER (INFORMATION) Bilateral EYLEA OU CONSENT DR. TINSLEY/MAYNOR EXP. 04/18/23 OTHER (INFORMATION) Right EYLEA OD CONSENT DR. TINSLEY/MAYNOR EXP. 04/16/24 REMOVAL OF INNER EYE FLUID Right 01/30/2023 RIGHT VITRECTOMY MECHANICAL PARS PLANA APPROACH performed by Brian Gagnon DO at OR [facility] REMOVAL OF TONSILS, UNDER AGE 12 REMOVE CATARACT, INSERT LENS PROSTH Right 05/12/2019 right EXTRACAPSULAR CATARACT REMOVAL WITH INTRAOCULAR LENS performed by Yury Brady MD at OR [facility] REMOVE CATARACT, INSERT LENS PROSTH Left 04/05/2020 left EXTRACAPSULAR CATARACT REMOVAL WITH INTRAOCULAR LENS performed by Yury Brady MD at OR 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 (Adult - for ages 18 years and over): No Are you able to get enough food for your family? (Household - for ages 0-17 years): Not on file Does your family need food this week? (Household - for ages 0-17 years): Not on file Do you always have enough food for your family? (Household - for ages 0-17 years): Not on file Transportation Needs: No Transportation Needs (02/06/2024) Transportation Needs Do you have trouble getting a ride to medical visits or work? (Adult - for ages 18 years and over):Never True Does your family have a hard time [...] Stability Do you currently live in a alf or have no steady place to sleep at night? (Adult - for ages 18 years and over): No Do you think you are at risk of becoming homeless? 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 Acetaminophen 500 MG Oral Tablet Take 2 Tablets by mouth every 6 hours as needed for Pain. CoQ10 100 MG Oral Capsule Take by mouth. Fortify Probiotic Womens Oral Capsule Delayed Release Take 1 Capsule by mouth in the morning. Bisacodyl 5 MG Oral Tablet Delayed Release (Dulcolax) Take 1 Tablet by mouth daily as needed for Constipation. Allopurinol 300 MG Oral Tablet (Zyloprim) TAKE [...] by mouth in the morning and beforebedtime. 90 Tablet 3 Levothyroxine Sodium 125 MCG Oral Tablet (Levoxyl) Take 1 Tablet by mouth daily first thing in the morning. (at least 30 min prior to breakfast or other meds) 90 Tablet 2 Verapamil HCl ER 240 MG Oral Tablet Extended Release (Isoptin SR) Take 1 Tablet by mouth in the morning and 1 Tablet before bedtime. 180 Tablet 2 Vitamin B-12 1000 MCG Oral Tablet (Cyanocobalamin) Take 1 Tablet by mouth in the morning. In the morning.. 90 Tablet 1 Famotidine 20 MG Oral Tablet (Pepcid) Take 1 Tablet by mouth at bedtime. 90 Tablet 3 predniSONE 10 MG Oral Tablet (Deltasone) Take 5 tabs for 2 days, 4 tabs for 2 days, 3 tabs for 2 days, 2 tabs for 2 days 1 tab for 2 days 30 Tablet 0 Magnesium Oxide 400 MG Oral Capsule Take 1 Capsule by mouth in the morning. 30 Capsule 11 Riboflavin 400 MG Oral Tablet Take 1 Tablet by mouth in the morning. 30 Tablet 11 Loperamide HCl 2 MG [...] 1 Capsule by mouth in the morning. (Patient not taking: Reported on 02/24/2024) Nystatin [id number] UNIT/GM External Powder (Nystop) Apply topically to affected area 2 times a day. Apply to the affected area (Patient not taking: Reported on 02/24/2024) 60 g 0 Nitroglycerin 0.4 MG Sublingual Tablet Sublingual (Nitrostat) DISSOLVE ONE TABLET UNDER TONGUE NEEDED FOR CHEST PAIN 25 Tablet 1 Ondansetron HCl 4 MG Oral Tablet Take 1 Tablet by mouth every 8 hours as needed for Nausea. 30 Tablet 0 Spironolactone 25 MG Oral Tablet (Aldactone) Take 0.5 Tablets by mouth daily as needed (swelling). (Patient not taking: Reported on 02/24/2024) 90 Tablet 1 Topiramate 25 MG Oral Tablet (Topamax) Take 1 Tablet by mouth every night at bedtime. (Patient not taking: Reported on 02/24/2024) 30 Tablet 1 Current Facility-Administered Medications Medication Dose Route Frequency Provider Last Rate Last Admin ROPivacaine (Naropin) inj 1.5 mg 1.5 mg Injection PRN 1.5 mg at 02/04/24 1138 Aflibercept (Eylea) intraviteal prefilled syringe 2 mg 2 mg Intravitreal PRN 2 mg at 02/04/24 8289 Review of patient's allergies indicates: Allergen Reactions Imipenem Edema airway Colchicine Diarrhea Daptomycin Shortness of breath Reclast [Zoledronic Acid] Myalgias, fever, chills, vomiting x 2 days Sulfa Antibiotics Bactrim--itchy all over, eyes swollen Metoprolol Other reaction(s): fatigue REVIEW OF SYSTEMS: With the exception of historical items included in the history of present illness above, a 12-point systems review was normal. PHYSICAL EXAM: BP 146/87 (BP Site: Right Arm, BP Position: Sitting, BP Cuff Size: Regular) | Pulse 109 | Temp 36.9 °C (98.4 °F) (Tympanic) | Ht 1.6 m (5' 3") | Wt 74.7 kg (164 lb 9.6 oz) | BMI 29.16 kg/m² | BSA 1.82 m² She is awake alert oriented in 3 spheres quite pleasant jovial with normal eye movements facial motility strength facial sensation clear speech and with a gait that is unremarkable save for the effects of her knee disease and shows no spasticity ataxia in his no loss of associated movements tremor tics or choreiform activity or any evidence for parkinsonism or another basal ganglia disorder. Reflexes are all present but hypoactive toes are down no Cody signs are seen strength testing is normal and with the exception of some age appropriate vibratory loss below the knees sensation is intact to proprioception light touch temperature and pinprick LABORATORY: No labs are needed IMAGING: Imaging of the brain several years ago showed age-appropriate volume loss and some scattered high T2 intensity signals consistent with small-vessel disease and in retrospect perhaps the effects of longstanding migraine headaches ASSESSMENT AND PLAN: Migraine headaches without aura chronic now increasing in severity and duration with 10 10 headache days per month. I am going to start her on some magnesium oxide and riboflavin hopes that this would begin do medially rate some of the severity of the headaches and reduce her frequency but if it does not there areseveral choices. I hate to consider tricyclic antidepressants and a woman of her age but I might try some very low- dose Pamelor. Alternatively could try some gabapentin. My preference would be to try1 of the calcitonin gene receptor antagonists preferably age Ajovy or Emgality and to avoid Aimovigwhich is notorious for exacerbating hypertension or 1 of the oral agents such as Ubrelvy but this would require insurance approval and then may have to go through yet another trial of standard medications before trying to obtain this She is going to get in touch with me periodically by e-mail after about 6 weeks of the riboflavin and magnesium and I am going to see her back in 3 months. I think a lot of this is going to be handled by e-mail I spent 35 minutes reviewing her chart examining her reviewing her history and formulating a plan for follow-up and medical management The above note was generated utilizing voice recognition technology may have spelling errors punctuation errors pronoun usage errors and syntax errors Alfonso Manning MD documented in this encounter Nursing Notes * Julissa Chen OSA - 02/24/2024 12:59 PM EST Patient verified identity by spelling of last name and date. Pt is here for a new patient appointment documented in this encounter Plan of Treatment Upcoming Encounters Date Type Department Care Team (Late st Contact Info) Description 02/25/2024 2:30 PM EST Office Visit Hematology/Oncology [facility] [address] [facility] [place] [phone] Arianna Szymanski MD [address] [facility] [place] [address] 03/18/2024 2:15 PM EST Office Visit Ophthalmology, [facility] [address] [place] [address] Pedro Tinsley DO [address] [place] [address] 03/19/2024 4:00 PM EST Home Visit [facility] [address] [place] [address] Olinda Briggs RN [address] [place] [address] 04/30/2024 11:00 AM EST Home Visit [facility], [facility] [address] [place] [address] Leon Live PA-C [address] [place] [address] 05/18/2024 11:20 AM EST Office Visit Neurology [facility] [address] [place] [address] Alfonso Manning MD [address] [place] [address] 05/22/2024 3:45 PM EST Office Visit Dermatology [facility] [address] [place] [address] Guy Trivedi MD [address] [place] [address] 06/16/2024 10:00 AM EDT Office Visit Neurology [address] [place] [phone] Glory Keith MD [address] [place], [place] [id number] 06/25/2024 9:00 AM EDT Office Visit Family Medicine [address] [place] [phone] Rafa Bergman MD [address] [place] [address] [place] [address] 07/21/2024 10:00 AM EDT Imaging Radiology, [address] [place] [address] 09/04/2024 1:00 PM EDT Office Visit Rheumatology [address] [place] [phone] Deangelo Holley MD [address] [facility] [place], [place] [address] Health Maintenance Due Date Last Done Comments Adult Wellness Visit 02/06/2018 02/06/2017 Depression Screening 07/17/2022 07/17/2021 COVID-19 Vaccine ( season) 2023 02/05/2022, 08/02/2021, 02/28/2021, Additional history exists Influenza Vaccine (FLU shot) (#1) 2023 04/19/2023, 01/30/2022, 12/28/2020, Additional history exists Albumin/Creatinine Ratio 02/13/2024 023, 03/21/2022, 04/19/2021, Additional history exists HbA1c 04/26/2024 04/26/2023, 03/02, 04/19/2021, Additional history exists CKD PHOS USE SMARTSET [id number] 06/26/202405/31, 04/19/2021, 11/27/2019, Additional history exists DXA Scan 07/18/2024 07/18/2022, 06/30, 12/22/2019, Additional history exists GFR 08/16/2024 02/17/2024, 08/0 08/2023, 06/27/2023, Additional history exists TSH 11/14/2024 11/15/2023, 07/0 05/2023, 08/21/2023, Additional history exists CKD HGB USE SMARTSET [id number] 02/16/202502/16, 02/17/2024, 06/27/2023, Additional history exists DTap/Tdap Vaccines (3 - Td or Tdap) 09/30/2033 10/01/2023, 11/03/2007 Hepatitis B Vaccine Completed 03/18/2009, 06/14/2008, 05/12/2008 Pneumococcal Vaccine: 65+ Years Completed 03/28/2015, 03/20/2010, 11/15/2004 RETIRED - COLONOSCOPY-EVERY 5 YRS AGES 18-100 Discontinued 02/27/2017, 02/27/2017, 10/17/2004 Zoster Vaccines Completed 06/12/2021, 02/01, 11/04/2012 VITAMIN D LEVEL ONCE IN A LIFETIME-USE SMARTSET# [id number] Completed 06/27/2023, 11/06/2021, 12/28/2019, Additional history exists HPV (Gardasil) Vaccine Aged Out No lo nger eligible based on patient's age to complete this topic MENINGOCOCCAL (MENACTRA/MENVEO) Aged Out No longer eligible based on patient's age to complete this topic documented as of this encounter Medical Devices Implanted Type 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 Right: Eye [employer] 12/30/2023 [id number] / [id number] / [id number] Lens Intraoc 22.5 - [id number] - [id number] Implanted:Qty: 1 on 04/05/2020 by Yury Brady MD at OR [facility] Left: Eye [employer] 09/28/2024 [id number] / [id number] / [id number] documented as of this encounter Visit Diagnoses Diagnosis Hypertensive kidney disease with stage 3a chronic kidney disease- Primary Atherosclerosis of [place] coronary artery of [place] heart without angina pectoris Dyslipidemia, goal LDL below 70 Other and unspecified hyperlipidemia History of pulmonary embolism Personal history of pulmonary embolism Tachy-chintan syndrome (HCC) Sinoatrial node dysfunction S/P placement of cardiac pacemaker Cardiac pacemaker in situ Arthralgia of right hip Gastro-esophageal reflux disease with esophagitis, without bleeding Sinus tachycardia Other specified cardiac dysrhythmias Coronary artery disease involving [place] coronary artery of [place] heart without angina pectoris Presence of cardiac pacemaker Cardiac pacemaker in situ Palpitations HTN, goal below 140/90 Unspecified essential hypertension Hypertensive kidney disease with stage 3a chronic kidney disease- Primary Dyslipidemia, goal LDL below 70 Other and unspecified hyperlipidemia Gastro-esophageal reflux disease with esophagitis, without bleeding Atherosclerosis of [place] coronary artery of [place] heart without angina pectoris Migraine without aura and without status migrainosus, not intractable- Primary Migraine without aura, without mention of intractable migraine without mention of status migrainosus documented in this encounter Advance Directives Documents on File Type Date Recorded 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
--- OUTSIDE RECORDS SUMMARY | 2024-07-24 00:16 | External Medical Summary | Summary of Care ---
Author Name Unknown Organization [facility] Address [address] [place] [facility] [place] [address] Phone [phone] Care Team Providers Care Screen Roller Name Role Phone Rafa Bergman MD Primary Care Provide r Reason for Visit * Reason Comments Follow Up 6 month follow up Encounter Details Date Type Department Care Team (Late st Contact Info) Description 02/25/2024 2:30 PM EST Office Visit Hematology/Oncology [facility] [place] [address] [facility] [place] [address] Arianna Szymanski MD [address] [place] [address] History of DVT (deep vein thrombosis)* Allergies Active Allergy Reactions Criticality Noted Date Comments Colchicine Diarrhea 06/16/2018 Daptomycin 01/05/2015 Shortness of breath Imipenem Edema airway High 01/05/2015 Metoprolol Low 01/23/2021 Other reaction(s): fatigue Zoledronic Acid 04/24/2012 Myalgias, fever, chills, vomiting x 2 days Sulfa Antibiotics 12/22/2002 Bactrim--itchy all over, eyes swollen documented as of this encounter (statuses as of 02/25/2024) Medications ASPIRIN 81 MG PO TABS Take [...] as needed for Constipation. 3 Active Nystatin 501855 UNIT/GM External Powder (Nystop)Indicati ons:Rash and nonspecific [...] goal LDL below 70,Coronary artery disease involving [place] coronary artery of [place] heart without angina pectoris TAKE ONE TABLET BY MOUTH IN THE MORNING 90 Tablet 3 4 Active Propranolol HCl 10 MG Oral Tablet (Inderal)Indicat ions:Sinus tachycardia,Tach y-chintan syndrome (HCC),Coronary artery disease involving [place] coronary artery of [place] heart without angina pectoris,Presenc e of cardiac [...] as of this encounter (statuses as of 02/25/2024) Active Problems Problem Noted Date Diagnosed Date Nevus of 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 History of DC (myocardial infarction) 11/27/2022 History of pulmonary embolism [...] of [place] heart without angina pectoris 07/08/2018 Overview (11/21/2023): history of NSTEMI status post AMIE to LAD (culprit) and RCA, 04/28/2018 Assessment & Plan (01/24/2024 4:40 PM EDT): Cardiac rehab at [facility] 2x week Assessment & Plan (11/21/2023 5:32 [...] as of this encounter (statuses as of 02/25/2024) Resolved Problems Problem Noted Date Diagnosed Date Resolved Date Purulent endophthalmitis of right eye 01/03/2023 11/08/2023 Other pulmonary embolism wit h acute cor pulmonale 10/01/2022 04/26/2023 Overview (04/26/2023): history Medical home patient encounter 09/13/2022 11/08/2023 Atherosclerosis of coronary artery of [place] heart [...] as of this encounter (statuses as of 02/25/2024) Immunizations Name Administration Dates Next Due COVID-19 [...] 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 Not on file 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 Not on file Not on file Not on file documented as of this encounter Last Filed Vital Signs Vital Sign Reading Time Taken Comments Blood Pressure 114/73 02/25/2024 2:26 PM EST Pulse 111 02/25/2024 2:26 PM EST Temperature 36.9 °C (98.4 °F) 02/25/2024 2:26 PM ES T Respiratory Rate - - Oxygen Saturation 95% 02/25/2024 2:26 PM EST Inhaled Oxygen Concentration - - Weight 74.2 kg (163 lb 9.6 oz) 02/25/2024 2:26 P M EST Height - - Body Mass Index 28.98 02/24/2024 12:52 PM EST documented in this encounter Progress Notes * Arianna Szymanski MD - 02/25/2024 2:19 PM EST Outpatient Consult Note Data Source: Patient, [facility] record. Data Source: Patient, [facility] record. 02/25/2024 2:19 PM Rehana Moran [id number] 79 year old Patient Encounter: HEMATOLOGY/ONCOLOGY [facility] Diagnosis: Recurrent pulmonary embolism and DVT Current Treatment: Eliquis 2.5 mg twice a day Previous Treatment: Eliquis History : 79-year-old female with a complicated past medical history including hypertension, scan cardiomyopathy, diverticulitis, hyperlipidemia, CKD stage 3, hypothyroidism, GERD and history of DVT and pulmonary embolism was referred for further follow-up. Her 1st episode of pulmonary embolism was about 20 years ago when she was taking hormone pills. Shewas treated with Coumadin for few years. She had knee replacement surgeries done in 2009 and in 2014 and both were complicated with a pulmonary embolism. She was treated with Plavix for few years. In08/2022 she was admitted to the hospital with generalized weakness and increasing shortness of breath. She also had episode of diverticulitis and was in the hospital and treated with antibiotics. During the hospitalization she had shortness of breath and had CT angiogram done which revealed extensive pulmonary embolism with the associated right heart strain. Doppler ultrasound of the lower extremity were negative. She was started Eliquis with improvement in symptoms. She continued Eliquis until01/2023 when she presented with nosebleed. She also had aspiration pneumonia because of the nosebleed. Because of the bleeding Eliquis was discontinued. Last CT angiogram was done on 02/24/2023 and it was negative for pulmonary embolism. She continues to complain generalized weakness and fatigue and currently on the wheelchair. Physically she has not very active. She denies any headache, dizziness, blurred vision, chest pain, shortness breath palpitation abdominal pain or distention, nausea, vomiting, fever, night sweats, hematuria, hematochezia, nosebleed. She denies smoking or drinking alcohol. Family history is negative for any hematologic oncology problem or pulmonary embolism or DVT. Interval History: Patient denies any headache, dizziness, blurred vision, chest pain, shortness breath palpitation abdominal pain or distention, bleeding, bruising, nausea, vomiting, fever, night sweats, weight loss, hematuria, hematochezia. Overall clinically she is feeling better. She was recently diagnosed of migraine headache and following Neurology. LABS/IMAGING: Results for orders placed or performed in visit on 02/17/24 COMPREHENSIVE METABOLIC PANEL Result Value Ref Range BUN 27 (H) 6 - 20 mg/dL CREATININE 1.2 (H) 0.5 - 1.0 mg/dL EGFR 47 (L) >=60 mL/min SODIUM 144 135 - 146 mmol/L POTASSIUM 4.4 3.5 - 5.1 mmol/L CHLORIDE 104 98 - 107 mmol/L CO2 28 22 - 32 mmol/L ANION GAP 12 7 - 15 mmol/L GLUCOSE 95 70 - 120 mg/dL Albumin 4.0 3.8 - 5.0 g/dL AST <10 (L) 10 - 35 U/L Alkaline Phosphatase 90 35 - 130 U/L Bilirubin, Total 0.4 <=1.2 mg/dL CALCIUM 10.1 8.4 - 10.2 mg/dL Protein 5.9 (L) 6.0 - 8.3 g/dL ALT 16 10 - 35 U/L CBC Result Value Ref Range WBC 10.44 4.00 - 10.80 K/uL RBC 4.79 3.85 - 5.15 M/uL HGB 15.8 (H) 12.0 - 15.3 g/dL HCT 49.5 (H) 36.0 - 45.2 % MCV 103.3 81.5 - 97.5 fL MCH 33.0 27.0 - 34.0 pg MCHC 31.9 32.0 - 36.0 g/dL RDW 14.9 11.5 - 15.5 % PLT 335 140 - 400 K/uL MPV 10.5 6.6 - 11.1 fL nRBCs 0 <=0 /100 WBCs DIFFERENTIAL, AUTOMATED Result Value Ref Range WBC 10.44 4.00 - 10.80 K/uL Neutrophils % 59.4 40.0 - 75.0 % Lymphocytes % 23.7 18.0 - 42.0 % Monocytes % 12.8 (H) 1.0 - 11.0 % Eosinophils % 2.4 0.0 - 6.0 % Basophils % 1.1 0.0 - 2.0 % Immature Granulocytes % 0.6 0.0 - 2.0 % Absolute Neutrophils 6.21 1.80 - 7.70 K/uL Absolute Lymphocytes 2.47 1.00 - 4.80 K/ul Absolute Monocytes 1.34 (H) 0.00 - 1.10 K/uL Absolute Eosinophils 0.25 0.00 - 0.70 K/uL Absolute Basophils 0.11 0.00 - 0.20 K/uL Absolute Immature Granulocytes 0.06 0.00 - 0.20 K/uL URINALYSIS, REFLEX TO CULTURE (CUP ONLY) Result Value Ref Range Urinalysis, Reflex to Culture Specimen Specimen collected and received URINALYSIS, REFLEX TO CULTURE Result Value Ref Range Color, Urine Yellow Colorless, Light Yellow, Yellow, Dark Yellow Clarity, Urine Slightly Cloudy (A) Clear Glucose, Urine Negative Negative mg/dL Bilirubin, Urine Negative Negative Ketone, Urine Negative Negative mg/dL Specific [place], Urine 1.028 1.003 - 1.030 Blood, Urine Negative Negative pH, Urine 6.0 5.0 - 7.5 Units Protein, Urine Trace (A) Negative mg/dL Urobilinogen, Urine Normal Normal mg/dL Nitrite, Urine Negative Negative Esterase, Urine Negative Negative RBC, Urine 0-2 0 - 2 /HPF WBC, Urine 3-5 (A) 0 - 2 /HPF Bacteria, Urine 26-50 (A) 0 - 25 /HPF CULTURE, URINE, QUANTITATIVE Specimen: Urine, Clean Catch Result Value Ref Range Culture Growth No significant growth *Note: Due to a large number of results and/or encounters for the requested time period, some results have not been displayed. A complete set of results can be found in Results Review. REVIEW OF SYSTEMS: General: No Fever, chills, night sweats, or weight loss. HEENT: No change in visual acuity, blurred or double vision. No epistaxis, facial pain, nasal discharge or change in hearing. Denies dysphagia, no muscosal ulceration, or sores noted. Cardiovascular: No chest pain, SOSA, or palpitations Respiratory: No shortness of breath, cough, hemoptysis, or pleuritic chest pain Gastrointestinal: No abdominal pain, nausea, vomiting, diarrhea, rectal pain or bleeding Genitourinary: Denies Hematuria or dysuria Musculoskeletal: No bone pain Psychiatric: No vegetative signs of depression Endocrine: No symptoms of hypothyroidism or hyperglycemia Hematologic: No bleeding or lymph nodes noted As mentioned above, all of the systems were reviewed in full and are unremarkable. 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 Pericarditis as complication of acute myocardial infarction ([facility]) 06/05/2018 [facility] steroids Postmenopausal atrophic vaginitis 09/15/2013 Presence of vena cava filter PROLAPSE OF VAGINAL WALL 10/28/2000 Pulmonary embolism and infarction ([facility]) 08/30/2009 Pulmonary embolus ([facility]) 1999 Purulent endophthalmitis of right eye 01/03/2023 Recurrent sinus infections 08/13/2017 Retroperitoneal bleed 02/28/2015 Sebaceous hyperplasia, Rt forehead 10/05/97 01/28/2002 Senile osteoporosis 05/14/2008 Traumatic rupture of left posterior tibial tendon 12/07/2014 Urinary frequency 09/15/2013 Viral warts, unspecified Condylomata Vitamin B12 deficiency 05/12/2014 Vitamin D insufficiency 05/12/2014 Current Outpatient Medications Medication Sig Dispense Refill [...] morning. (Patient not taking: Reported on 02/24/2024) Fortify Probiotic Womens Oral Capsule Delayed Release Take 1 Capsule by mouth in the morning. Bisacodyl 5 MG Oral Tablet Delayed Release (Dulcolax) Take 1 Tablet by mouth daily as needed for Constipation. Nystatin 249588 UNIT/GM External Powder (Nystop) Apply topically to [...] mouth in the morning. 30 Tablet 11 Current Facility-Administered Medications Medication Dose Route Frequency Provider Last Rate Last Admin ROPivacaine (Naropin) inj 1.5 mg 1.5 mg Injection PRN 1.5 mg at 02/04/24 1138 Aflibercept (Eylea) intraviteal prefilled syringe 2 mg 2 mg Intravitreal PRN 2 mg at 02/04/24 1138 Social History Tobacco Use Smoking status: Never Smokeless tobacco: Never Tobacco comments: second hand smoke exposure - 10 years Vaping Use Vaping status: Never Used Substance Use Topics Alcohol use: No Drug use: No Review of patient's allergies indicates: Allergen Reactions Imipenem Edema airway Colchicine Diarrhea Daptomycin Shortness of breath Reclast [Zoledronic Acid] Myalgias, fever, chills, vomiting x 2 days Sulfa Antibiotics Bactrim--itchy all over, eyes swollen Metoprolol Other reaction(s): fatigue PHYSICAL EXAMINATION: General Appearance: Healthy appearing patient in no acute distress There were no vitals taken for this visit. Vitals reviewed. HEENT: No oral or pharyngeal masses, ulceration or thrush noted, no sinus tenderness. Neck is supple with no thyromegaly or JVD noted. Lymph Nodes: No lymphadenopathy noted in the occipital, pre and post auricular, cervical, supra andinfraclavicular, axillary, epitrochlear, inguinal, and popliteal region. Lungs/Thorax: Clear to auscultation, no accessory muscles of respiration being used. Heart: Regular rate and rhythm, normal S1, S2 Abdomen: Soft, nontender, bowel sounds present, no appreciable hepatosplenomegaly, no palpable masses Extremeties: Good pulses bilaterally, no peripheral edema. ASSESSMENT: 79-year-old female with a complicated past medical history including hypertension, scan cardiomyopathy, diverticulitis, hyperlipidemia, CKD stage 3, hypothyroidism, GERD and history of DVT and pulmonary embolism was referred for further management and decision about her treatment. She has a history of multiple pulmonary embolism and DVT. All the episodes of thromboembolism were provoked. Her last episode was in 08/2022 because of the diverticulitis and lack of activity. She was treated with the Eliquis for 5 months and then it was discontinued because of the nosebleed and aspiration pneumonia. Currently she is taking low-dose 2.5 mg Eliquis with good tolerance and without any significant side effects toxicity. Because of the persistent headache she was recently seen by Neurology and was diagnosed of migraine. Clinically she is doing well in excellent performance status and physical examination is unremarkable. The result of all recent blood tests are in stable in acceptable range. Discussed with the patient about diagnosis and reviewed all the available blood test with her. PLAN: She will return to clinic for follow-up in 6 months with CBC and CMP. She will continue taking Eliquis. The patient voiced understanding of all of the above. All questions and concerns were addressed in an apparently satisfactory manner. Arianna Szymanski MD (This note was completed using the dictation program Fluency Direct. As such, there may be misspellings, word substitutions, or other variations that should not change the essence of the clinical content of this encounter note. If there is need for further clarification, please direct questions to me.) documented in this encounter Nursing Notes * Mary Rausch CMA - 02/25/2024 2:27 PM EST Patient identifed by name and birthdate Do you have any concerns about pain management for today's visit? No Living Will or Advance Directive for Health Care as noted on the problem list. [facility] is a way you can talk to your provider on line through e-mail. Would you like to sign up? I can activate it for you? ALREADY ACTIVE Filed Vitals: 02/25/24 1426 BP: 114/73 Pulse: 111 Temp: 36.9 °C (98.4 °F) TempSrc: Tympanic SpO2: 95% Weight: 74.2 kg (163 lb 9.6 oz) Patient was instructed to not get up on the exam table/exam chair until directed and assisted by their provider; patient is to remain seated in the chair/ wheelchair/ exam table/ exam chair for fall prevention and safety reasons. Patient is aware to have assistance to step down off exam table/exam chair with personnel. Patient voiced full comprehension of instructions. documented in this encounter Plan of Treatment Upcoming Encounters Date Type Department Care Team (Late st Contact Info) Description 03/18/2024 2:15 PM EST Office Visit Ophthalmology, [facility] [address] [facility] [place] [address] Pedro Tinsley DO [address] [place] [address] 03/19/2024 4:00 PM EST [facility] Visit [facility] [address] [facility] [place] [address] Olinda Briggs RN [address] [place] [address] 04/30/2024 11:00 AM EST Home Visit [facility] [place], [facility] [address] [facility] [place] [address] Leon Live PA-C [address] [place] [address] 05/18/2024 11:20 AM EST Office Visit Neurology [facility] [address] [facility] [place] [address] Alfonso Manning MD [address] [facility] [place] [address] 05/22/2024 3:45 PM EST Office Visit Dermatology [facility] [address] [facility] [place] [address] Guy Trivedi MD [address] [facility] [place] [address] 06/16/2024 10:00 AM EDT Office Visit Neurology [address] [place] [address] Glory Keith MD [address] [place] [address] 06/25/2024 9:00 AM EDT Office Visit Family Medicine [address] [place] [phone] Rafa Bergman MD [address] [place] [address] [place] [address] 07/21/2024 10:00 AM EDT Imaging Radiology, [address] [place] [address] 08/18/2024 10:20 AM EDT Laboratory Laboratory [address] [place] [phone] [address] [place] [address] 08/25/2024 3:30 PM EDT Office Visit Hematology/Oncology [facility] [address] [place] [phone] Arianna Szymanski MD [address] [place] [address] 09/04/2024 1:00 PM EDT Office Visit Rheumatology [address] [place] [phone] Deangelo Holley MD [address] [place] [address] [place] [address] Scheduled Orders Name Type Priority Associated Diagnoses Orde r Schedule CBC WITH WBC DIFFERENTIAL Lab Routine History of DVT (deep vein thrombosis) Expected: 08/25/2024, Expires: 03/26/2025 COMPREHENSIVE METABOLIC PANEL Lab Routine History of DVT (deep vein thrombosis) Expected: 08/25/2024, Expires: 03/26/2025 Health Maintenance Due Date Last Done Comments Adult Wellness Visit 02/06/2018 02/06/2017 Depression Screening 07/17/2022 07/17/2021 COVID-19 Vaccine ( season) 2023 02/05/2022, 08/02/2021, 02/28/2021, Additional history exists Influenza Vaccine (FLU shot) (#1) 2023 04/19/2023, 01/30/2022, 12/28/2020, Additional history exists Albumin/Creatinine Ratio 02/13/2024 023, 03/21/2022, 04/19/2021, Additional history exists HbA1c 04/26/2024 04/26/2023, 03/02, 04/19/2021, Additional history exists CKD PHOS USE SMARTSET 45620 06/26/202405/31, 04/19/2021, 11/27/2019, Additional history exists DXA Scan 07/18/2024 07/18/2022, 06/30, 12/22/2019, Additional history exists GFR 08/16/2024 02/17/2024, 08/0 08/2023, 06/27/2023, Additional history exists TSH 11/14/2024 11/15/2023, 07/0 05/2023, 08/21/2023, Additional history exists CKD HGB USE SMARTSET 51565 02/16/202502/16, 02/17/2024, 06/27/2023, Additional history exists DTap/Tdap Vaccines (3 - Td or Tdap) 09/30/2033 10/01/2023, 11/03/2007 Hepatitis B Vaccine Completed 03/18/2009, 06/14/2008, 05/12/2008 Pneumococcal Vaccine: 65+ Years Completed 03/28/2015, 03/20/2010, 11/15/2004 RETIRED - COLONOSCOPY-EVERY 5 YRS AGES 18-100 Discontinued 02/27/2017, 02/27/2017, 10/17/2004 Zoster Vaccines Completed 06/12/2021, 02/01, 11/04/2012 VITAMIN D LEVEL ONCE IN A LIFETIME-USE SMARTSET# [id number] Completed 06/27/2023, 11/06/2021, 12/28/2019, Additional history exists HPV (Gardasil) Vaccine Aged Out No lo nger eligible based on patient's age to complete this topic MENINGOCOCCAL (MENACTRA/MENVEO) Aged Out No longer eligible based on patient's age to complete this topic documented as of this encounter Medical Devices Implanted Type Area Cook Room Supervisor Device Identifier Shelf Expiration Date Model / Serial / Lot Lens Intraoc 21.5 - [id number] - [id number] Implanted:Qty: 1 on 05/12/2019 by Yury Brady MD at OR [facility] Right: Eye [employer] 12/30/2023 [id number] / [id number] / [id number] Lens Intraoc 22.5 - [id number] - [id number] Implanted:Qty: 1 on 04/05/2020 by Yury Brady MD at OR [facility] Left: Eye [employer] 09/28/2024 [id number] / [id number] / [id number] documented as of this encounter Visit Diagnoses Diagnosis Hypertensive kidney disease with stage 3a chronic kidney disease- Primary Atherosclerosis of [place] coronary artery of [place] heart without angina pectoris Dyslipidemia, goal LDL below 70 Other and unspecified hyperlipidemia History of pulmonary embolism Personal history of pulmonary embolism Tachy-chintan syndrome (HCC) Sinoatrial node dysfunction S/P placement of cardiac pacemaker Cardiac pacemaker in situ Arthralgia of right hip Gastro-esophageal reflux disease with esophagitis, without bleeding Sinus tachycardia Other specified cardiac dysrhythmias Coronary artery disease involving [place] coronary artery of [place] heart without angina pectoris Presence of cardiac pacemaker Cardiac pacemaker in situ Palpitations HTN, goal below 140/90 Unspecified essential hypertension Hypertensive kidney disease with stage 3a chronic kidney disease- Primary Dyslipidemia, goal LDL below 70 Other and unspecified hyperlipidemia Gastro-esophageal reflux disease with esophagitis, without bleeding Atherosclerosis of [place] coronary artery of [place] heart without angina pectoris History of DVT (deep vein thrombosis)- Primary Personal history of venous thrombosis and embolism documented in this encounter Advance Directives Documents on File Type Date Recorded 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
--- OUTSIDE RECORDS SUMMARY | 2024-07-24 00:16 | External Medical Summary | Summary of Care ---
Author Name Unknown Organization [facility] Address [address] [place] [address] Phone [phone] Care Team Providers Care Compensation Analyst Name Role Phone Rafa Bergman MD Primary Care Provide r Reason for Visit * Reason Onset Date Comments Advice 03/16/2024 Encounter Details Date Type Department Care Team (Late st Contact Info) Description 03/16/[address] [place] [phone] Rafa Bergman MD [address] [place] [address] [place] [address] Advice Allergies Active Allergy Reactions Criticality Noted Date Comments Colchicine Diarrhea 06/16/2018 Daptomycin 01/05/2015 Shortness of breath Imipenem Edema airway High 01/05/2015 Metoprolol Low 01/23/2021 Other reaction(s): fatigue Zoledronic Acid 04/24/2012 Myalgias, fever, chills, vomiting x 2 days Sulfa Antibiotics 12/22/2002 Bactrim--itchy all over, eyes swollen documented as of this encounter (statuses as of 03/16/2024) Medications ASPIRIN 81 MG PO TABS Take [...] goal LDL below 70,Coronary artery disease involving [place] coronary artery of [place] heart without angina pectoris TAKE ONE TABLET BY MOUTH IN THE MORNING 90 Tablet 3 02/29/2024 11:02 AM EST 01/10/20 24 Active Propranolol HCl 10 MG Oral Tablet (Inderal)Indicat ions:Sinus tachycardia,Tach y-chintan syndrome (HCC),Coronary artery disease involving [place] coronary artery of [place] heart without angina pectoris,Presenc e of [...] as of this encounter (statuses as of 03/16/2024) Active Problems Problem Noted Date Diagnosed Date Nevus of 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 History of SD (myocardial infarction) 11/27/2022 History of pulmonary embolism [...] S/P angioplasty with stent 11/27/2018 Atherosclerosis of [place] co ronary artery of [place] heart without angina pectoris 07/08/2018 Overview [...] as of this encounter (statuses as of 03/16/2024) Resolved Problems Problem Noted Date Diagnosed Date Resolved Date Purulent endophthalmitis of right eye 01/03/2023 11/08/2023 Other pulmonary embolism wit h acute cor pulmonale 10/01/2022 04/26/2023 Overview (04/26/2023): history Medical home patient encounter 09/13/2022 11/08/2023 Atherosclerosis of coronary artery of [place] heart without angina pectoris 09/10/2022 10/31/2022 [...] filter 02/28/2015 Atherosclerotic heart diseas e of [place] coronary artery with angina pectoris 11/2018 CKD (chronic kidney disease) stage 2, GFR 60-89 ml/min 03/12/2019 documented as of this encounter (statuses as of 03/16/2024) Immunizations Name Administration Dates Next Due COVID-19 [...] 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 Not on file 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 Not on file Not [...] 03/18/2024 2:15 PM EST Office Visit Ophthalmology, [facility] [address] [address] Pedro Tinsley DO [address] [place] [place] [address] 03/31/2024 4:00 PM EST Home Visit [facility] [address] [address] Olinda Briggs, CHRISTINA [address] [place] [address] 04/30/2024 11:00 AM EST [facility] Visit [facility] [place] [address] Leon Live PA-C [address] [place] [address] 05/12/2024 1:00 PM EST Office Visit Cardiology, [facility] [address] [facility] [place] [address] Pricila Puga, LEYDA [address] [facility] [place] [address] 05/18/2024 11:20 AM EST Office Visit Neurology [facility] [address] [place] [address] Alfonso Manning MD [address] [place] [address] 05/22/2024 3:45 PM EST Office Visit Dermatology [facility] [address] [place] [address] Guy Trivedi MD [address] [place] [address] 06/25/2024 9:00 AM EDT Office Visit Family Medicine [address] [place] [phone] Rafa Bergman MD [address] [place] [address] [place] [address] 07/21/2024 10:00 AM EDT Imaging Radiology [facility] [address] [place] [phone] 08/18/2024 10:20 AM EDT Laboratory Laboratory [address] [place] [phone] [place] [address] 08/25/2024 3:30 PM EDT Office Visit Hematology/Oncology [facility] [address] [facility] [place] [address] Arianna Szymanski MD [address] [facility] [place], [place] [address] 09/04/2024 1:00 PM EDT Office Visit Rheumatology [address] [place] [phone] Deangelo Holley MD [address] [facility] [place] [address] 10/05/2024 1:30 PM EDT Office Visit Cardiology, [facility] [address] [place] [address] Charles Ortega, [address] [place] [address] Health Maintenance Due Date Last Done Comments Adult Wellness Visit 02/06/2018 02/06/2017 Depression Screening 07/17/2022 07/17/2021 COVID-19 Vaccine ( season) 2023 02/05/2022, 08/02/2021, 02/28/2021, Additional history exists Influenza Vaccine (FLU shot) (#1) 2023 04/19/2023, 01/30/2022, 12/28/2020, Additional history exists Albumin/Creatinine Ratio 02/13/2024 023, 03/21/2022, 04/19/2021, Additional history exists HbA1c 04/26/2024 04/26/2023, 03/02, 04/19/2021, Additional history exists CKD PHOS USE SMARTSET 23313 06/26/202405/31, 04/19/2021, 11/27/2019, Additional history exists DXA Scan 07/18/2024 07/18/2022, 06/30, 12/22/2019, Additional history exists GFR 08/16/2024 02/17/2024, 08/0 08/2023, 06/27/2023, Additional history exists TSH 11/14/2024 11/15/2023, 07/0 05/2023, 08/21/2023, Additional history exists CKD HGB USE SMARTSET 80313 02/16/202502/16, 02/17/2024, 06/27/2023, Additional history exists DTap/Tdap Vaccines (3 - Td or Tdap) 09/30/2033 10/01/2023, 11/03/2007 Hepatitis B Vaccine Completed 03/18/2009, 06/14/2008, 05/12/2008 Pneumococcal Vaccine: 65+ Years Completed 03/28/2015, 03/20/2010, 11/15/2004 RETIRED - COLONOSCOPY-EVERY 5 YRS AGES 18-100 Discontinued 02/27/2017, 02/27/2017, 10/17/2004 Zoster Vaccines Completed 06/12/2021, 02/01, 11/04/2012 VITAMIN D LEVEL ONCE IN A LIFETIME-USE SMARTSET# [id number] Completed 06/27/2023, 11/06/2021, 12/28/2019, Additional history exists HPV (Gardasil) Vaccine Aged Out No lo nger eligible based on patient's age to complete this topic MENINGOCOCCAL (MENACTRA/MENVEO) Aged Out No longer eligible based on patient's age to complete this topic documented as of this encounter Medical Devices Implanted Type Area Public Records Officer Device Identifier Shelf Expiration Date Model / Serial / Lot Lens Intraoc 21.5 - [id number] - [id number] Implanted:Qty: 1 on 05/12/2019 by Yury Brady MD at OR [facility] Right: Eye [employer] 12/30/2023 [id number] / [id number] / [id number] Lens Intraoc 22.5 - [id number] - [id number] Implanted:Qty: 1 on 04/05/2020 by Yury Brady MD at OR [facility] Left: Eye [employer] 09/28/2024 [id number] / [id number] / [id number] documented as of this encounter Visit Diagnoses Diagnosis Hypertensive kidney disease with stage 3a chronic kidney disease- Primary Atherosclerosis of [place] coronary artery of [place] heart without angina pectoris Dyslipidemia, goal LDL below 70 Other and unspecified hyperlipidemia History of pulmonary embolism Personal history of pulmonary embolism Tachy-chintan syndrome (HCC) Sinoatrial node dysfunction S/P placement of cardiac pacemaker Cardiac pacemaker in situ Arthralgia of right hip Gastro-esophageal reflux disease with esophagitis, without bleeding Sinus tachycardia Other specified cardiac dysrhythmias Coronary artery disease involving [place] coronary artery of [place] heart without angina pectoris Presence of cardiac pacemaker Cardiac pacemaker in situ Palpitations HTN, goal below 140/90 Unspecified essential hypertension Hypertensive kidney disease with stage 3a chronic kidney disease- Primary Dyslipidemia, goal LDL below 70 Other and unspecified hyperlipidemia Gastro-esophageal reflux disease with esophagitis, without bleeding Atherosclerosis of [place] coronary artery of [place] heart without angina pectoris HTN, goal below 140/90- Primary Unspecified essential hypertension Tachy-chintan syndrome (HCC) Sinoatrial node dysfunction documented in this encounter Advance Directives Documents on File Type Date Recorded Patient Forensic Dna Analyst Expl anation Advance Directives and Living [...] Agen t (per Health Care Power of Apartment Leasing Specialist document) Guille Urban Adult Child Health Care Agen t (per Health Care Power of Apartment Leasing Specialist document) Care Teams Compensation Analyst Relationship Specialty Start Date End Date Rafa Bergman MD [address] [place] [address] [place] [id number] PCP - General Family Medicine 04/19/21 documented as of this encounter
--- OUTSIDE RECORDS SUMMARY | 2024-07-24 00:16 | External Medical Summary | Summary of Care ---
Author Name Unknown Organization [facility] Address [address] [facility] [address] Phone [phone] Care Team Providers Care Licensing Engineer Name Role Phone Rafa Bergman MD Primary Care Provide r Reason for Visit * Reason Comments Acute Encounter Details Date Type Department Care Team (Late st Contact Info) Description 03/13/2024 12:20 PM EST Office Visit Family Medicine [address] [place] [phone] Rafa Bergman MD [address] [place] [address] [place] [id number] HTN, goal below 140/90*; Tachy-chintan syndrome (HCC) Allergies Active Allergy Reactions Criticality Noted Date Comments Colchicine Diarrhea 06/16/2018 Daptomycin 01/05/2015 Shortness of breath Imipenem Edema airway High 01/05/2015 Metoprolol Low 01/23/2021 Other reaction(s): fatigue Zoledronic Acid 04/24/2012 Myalgias, fever, chills, vomiting x 2 days Sulfa Antibiotics 12/22/2002 Bactrim--itchy all over, eyes swollen documented as of this encounter (statuses as of 03/13/2024) Medications ASPIRIN 81 MG PO TABS Take [...] goal LDL below 70,Coronary artery disease involving [place] coronary artery of [place] heart without angina pectoris TAKE ONE TABLET BY MOUTH IN THE MORNING 90 Tablet 3 02/29/2024 11:02 AM EST 01/10/20 24 Active Propranolol HCl 10 MG Oral Tablet (Inderal)Indicat ions:Sinus tachycardia,Tach y-chintan syndrome (HCC),Coronary artery disease involving [place] coronary artery of [place] heart without angina pectoris,Presenc e of cardiac [...] 03/06/2024 5:37 PM EST 01/10/20 24 Active Verapamil HCl ER 240 [...] morning. 30 Tablet 11 02/24/20 24 Active Nystatin [id number] UNIT/GM External Powder (Nystop)Indicati ons:Rash and nonspecific skin eruption Apply topically to affected area 2 times a day. Apply to the affected area 60 g 06/05/19 24 024 Discontin ued(Medic ation List Clean Up) predniSONE 10 MG Oral Tablet (Deltasone)Indic ations:Arthralgi a, unspecified joint Take 5 tabs for 2 days, 4 tabs for 2 days, 3 tabs for 2 days, 2 tabs for 2 days 1 tab for 2 days 30 Tablet 02/17/20 24 024 Discontin ued(Medic ation List Clean [...] as of this encounter (statuses as of 03/13/2024) Active Problems Problem Noted Date Diagnosed Date Nevus of 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 History of SC (myocardial infarction) 11/27/2022 History of pulmonary embolism [...] S/P angioplasty with stent 11/27/2018 Atherosclerosis of [place] co ronary artery of [place] heart without angina pectoris 07/08/2018 Overview (11/21/2023): [...] as of this encounter (statuses as of 03/13/2024) Resolved Problems Problem Noted Date Diagnosed Date Resolved Date Purulent endophthalmitis of right eye 01/03/2023 11/08/2023 Other pulmonary embolism wit h acute cor pulmonale 10/01/2022 04/26/2023 Overview (04/26/2023): history Medical home patient encounter 09/13/2022 11/08/2023 Atherosclerosis of coronary artery of [place] heart without angina pectoris 09/10/2022 10/31/2022 Hypothyroidism [...] filter 02/28/2015 Atherosclerotic heart diseas e of [place] coronary artery with angina pectoris 11/2018 CKD (chronic kidney disease) stage 2, GFR 60-89 ml/min 03/12/2019 documented as of this encounter (statuses as of 03/13/2024) Immunizations Name Administration Dates Next Due COVID-19 [...] 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 Not on file 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 e [employer] Not on file Not on file Not on file documented as of this encounter Last Filed Vital Signs Vital Sign Reading Time Taken Comments Blood Pressure 126/80 03/13/2024 12:03 PM EST Pulse 92 03/13/2024 12:03 PM EST Temperature 35.8 °C (96.5 °F) 03/13/2024 1 2:03 PM EST Respiratory Rate - - Oxygen Saturation 93% 03/13/2024 12: 03 PM EST Inhaled Oxygen Concentration - - Weight 74.8 kg (164 lb 12.8 oz) 024 12:03 PM EST Height - - Body Mass Index 29.19 02/24/2024 12:52 PM EST documented in this encounter Progress Notes * Rafa Bergman MD - 03/13/2024 12:22 PM EST Subjective: HPI: Rehana Moran is a 79 year old female with hx of hypothyroidism, HLD, HTN, hx of SC, CAD s/p stent, GERD, CKD III, osteoporosis, hx of DVT/PE x2 (2009, 2022), Renal cyst, tachy-chintan syndrome s/p dual chamber pacemaker, prediabetes, macular degeneration, R retinal vein occlusion, B/L TKA, Gout seen for Pt is here to discuss her verapamil and its SE - pt has been having headache daily - the headache did improve with lowering the AM verapamil dose - per pt she started having MAN after her med was changed to verpamil from Diltiazem - currently on Inderal 5mg qhs, Verapamil ER 120mg am and 240mg pm - per pt her MAN starts 2 hr after taking verapamil Hx of R retinal vein occlusion - vision is slightly better - follows up with morning news producer Patient Active Problem List Diagnosis Senile osteoporosis HTN, goal below 140/90 Hypothyroidism (acquired) Dyslipidemia, goal LDL below 70 Retinal vein occlusion of right eye Vitamin B12 deficiency History of DVT (deep vein thrombosis) H/O nonmelanoma skin cancer Rhinitis, nonallergic Deviated nasal septum Arthritis of left ankle Atherosclerosis of [place] coronary artery of [place] heart without angina pectoris S/P angioplasty with stent Hypertensive kidney disease with stage 3a chronic kidney disease History of basal cell carcinoma Chronic kidney disease, stage 3a (HCC) Prediabetes Gastro-esophageal reflux disease with esophagitis, without bleeding Tachy-chintan syndrome (HCC) S/P placement of cardiac pacemaker History of SC (myocardial infarction) History of pulmonary embolism Nevus of choroid of right eye Current Outpatient Medications Medication Sig Dispense Refill [...] by mouth at bedtime. 90 Tablet 3 Magnesium Oxide 400 MG Oral Capsule Take 1 Capsule by mouth in the morning. 30 Capsule 11 Riboflavin 400 MG Oral Tablet Take 1 Tablet by mouth in the morning. 30 Tablet 11 Current Facility-Administered Medications Medication Dose Route Frequency Provider Last Rate Last Admin ROPivacaine (Naropin) inj 1.5 mg 1.5 mg Injection PRN 1.5 mg at 11/05/24 1138 Aflibercept (Eylea) intraviteal prefilled syringe 2 mg 2 mg Intravitreal PRN 2 mg at 02/04/24 1138 Past Medical History: Diagnosis Date Allergic rhinitis Atherosclerotic heart disease of [place] coronary artery with angina pectoris ([facility]) Benign neoplasm of skin Benign paroxysmal vertigo 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 10/28/2013 Chronic sinusitis 10/28/2013 CKD (chronic kidney disease) stage 2, GFR 60-89 ml/min Degenerative disc disease, cervical 05/18/2016 Derangement of meniscus right knee Diverticulitis of colon DVT (deep venous thrombosis) ([facility]) 02/28/2015 Dyslipidemia, goal LDL below 100 [...] NSTEMI (non-ST elevated myocardial infarction) ([facility]) 04/28/2018 [facility], cathed and LAD stented with AMIE, [...] to hypertension, elevated TSH, small pericardial effusion [facility] Pericarditis as complication of acute myocardial infarction (HCC) 05/15/2018 [facility] colchicine not tolerated well. Pericarditis as complication of acute myocardial infarction (HCC) 06/05/2018 [facility] steroids Postmenopausal atrophic vaginitis 09/15/2013 Presence of vena cava filter PROLAPSE OF VAGINAL WALL 10/28/2000 Pulmonary embolism and infarction (HCC) 08/30/2009 Pulmonary embolus ([facility]) 1999 Purulent endophthalmitis of right eye 01/03/2023 [...] knee ARTHROPLASTY KNEE TOTAL 11/11/2014 left knee- [facility]- Dr. Lopez CARDIAC CATH-CARDIOLOGY ONLY 04/28/2018 [...] Tinsley IR FILTER PLACEMENT VENA CAVA 10/2014 [facility] MISCELLANEOUS ORDER ([facility] ONLY) 12/02/2013-12/02/2014 LUCENTIS [...] ORDER ([facility] ONLY) ACT 112 signed, 06/12/2018 MISCELLYAMIL [...] performed by Brian Gagnon DO at OR [facility] REMOVAL OF TONSILS, UNDER AGE 12 REMOVE [...] detachments or blindness No Past Hx None breast/imager/colon Other (Other) None no hx of skin cancer for pt parents Social History Tobacco Use Smoking status: Never Smokeless tobacco: Never Tobacco comments: second hand smoke exposure - 10 years Substance Use Topics Alcohol use: No Vaping/E-Cigarette Use Vaping/E-Cigarette Use Never User Vaping/E-Cigarette Substances Vaping/E-Cigarette Devices ROS: -Per HPI OBJECTIVE: BP 126/80 | Pulse 92 | Temp 96.5 °F (35.8 °C) | Wt 164 lb 12.8 oz (74.8 kg) | SpO2 93% | BMI 29.19 kg/m² | BSA 1.82 m² PHYSICAL EXAM: Vitals are reviewed General:. NAD, well developed HEENT:. Normal Conjunctiva, EOMI MSK:. Normal gait Psych:. AAOx3, normal affect ASSESSMENT/PLAN: BP and HR are normal Will reachout to cardiology regarding switching the medication If med switched then will set up a nurse visit for BP and HR check HTN, goal below 140/90 (Primary) Tachy-chintan syndrome (HCC) I spent a total of 30-39 minutes (exact time 33 mins) on the date of service in preparation, delivery, and documentation of the care provided to Rehana Moran excluding any time spent in the performance of separately billed services or time spent by another provider/QHP. Rafa Bergman MD Family medicine, [address] [id number] documented in this encounter Nursing Notes * Lindsey Yi CMA - 03/13/2024 11:59 AM EST She is here to have her blood pressure checked. She has been having headaches and is concerned it may be her BP meds. Takes 1/2 a verapamil in the AM, whole tab in the PM. documented in this encounter Plan of Treatment Upcoming Encounters Date Type Department Care Team (Late st Contact Info) Description 03/18/2024 2:15 PM EST Office Visit Ophthalmology, [facility] [address] [facility] [place] [address] Pedro Tinsley DO [address] [facility] [place] [address] 03/31/2024 4:00 PM EST Home Visit [facility], [facility] [address] [facility] [place] [address] Olinda Briggs RN [address] [facility] [place] [address] 04/30/2024 11:00 AM EST Home Visit [facility], [facility] [address] [facility] [place] [address] Leon Live PA-C [facility] [address] 05/12/2024 1:00 PM EST Office Visit Cardiology, [facility] [address] [facility] [place] [address] Pricila Puga CRNP [address] [place] [address] 05/18/2024 11:20 AM EST Office Visit Neurology [facility] [address] [place] [address] Alfonso Manning MD [address] [place] [address] 05/22/2024 3:45 PM EST Office Visit Dermatology [facility] [address] [place] [address] Guy Trivedi MD [address] [place] [address] 06/25/2024 9:00 AM EDT Office Visit Family Medicine [address] [place] [phone] Rafa Bergman MD [address] [place] [address] [place] [address] 07/21/2024 10:00 AM EDT Imaging Radiology [facility] [address] [place] [phone] 08/18/2024 10:20 AM EDT Laboratory Laboratory [address] [place] [phone] [place] [address] 08/25/2024 3:30 PM EDT Office Visit Hematology/Oncology [facility] [address] [place] [phone] Arianna Szymanski MD [address] [place] [address] 09/04/2024 1:00 PM EDT Office Visit Rheumatology [address] [place] [phone] Deangelo Holley MD [address] [place] [address] [place], [place] [address] 10/05/2024 1:30 PM EDT Office Visit Cardiology, [facility] [address] [place] [address] Charles Ortega DO [address] [place] [address] Health Maintenance Due Date Last Done Comments Adult Wellness Visit 02/06/2018 02/06/2017 Depression Screening 07/17/2022 07/17/2021 COVID-19 Vaccine ( season) 2023 02/05/2022, 08/02/2021, 02/28/2021, Additional history exists Influenza Vaccine (FLU shot) (#1) 2023 04/19/2023, 01/30/2022, 12/28/2020, Additional history exists Albumin/Creatinine Ratio 02/13/2024 023, 03/21/2022, 04/19/2021, Additional history exists HbA1c 04/26/2024 04/26/2023, 03/02, 04/19/2021, Additional history exists CKD PHOS USE SMARTSET 06006 06/26/202405/31, 04/19/2021, 11/27/2019, Additional history exists DXA Scan 07/18/2024 07/18/2022, 06/30, 12/22/2019, Additional history exists GFR 08/16/2024 02/17/2024, 08/0 08/2023, 06/27/2023, Additional history exists TSH 11/14/2024 11/15/2023, 07/0 05/2023, 08/21/2023, Additional history exists CKD HGB USE SMARTSET 64566 02/16/202502/16, 02/17/2024, 06/27/2023, Additional history exists DTap/Tdap Vaccines (3 - Td or Tdap) 09/30/2033 10/01/2023, 11/03/2007 Hepatitis B Vaccine Completed 03/18/2009, 06/14/2008, 05/12/2008 Pneumococcal Vaccine: 65+ Years Completed 03/28/2015, 03/20/2010, 11/15/2004 RETIRED - COLONOSCOPY-EVERY 5 YRS AGES 18-100 Discontinued 02/27/2017, 02/27/2017, 10/17/2004 Zoster Vaccines Completed 06/12/2021, 02/01, 11/04/2012 VITAMIN D LEVEL ONCE IN A LIFETIME-USE SMARTSET# [id number] Completed 06/27/2023, 11/06/2021, 12/28/2019, Additional history exists HPV (Gardasil) Vaccine Aged Out No lo nger eligible based on patient's age to complete this topic MENINGOCOCCAL (MENACTRA/MENVEO) Aged Out No longer eligible based on patient's age to complete this topic documented as of this encounter Medical Devices Implanted Type Area Metal Bed Assembler Device Identifier Shelf Expiration Date Model / Serial / Lot Lens Intraoc 21.5 - [id number] - [id number] Implanted:Qty: 1 on 05/12/2019 by Yury Brady MD at OR [facility] Right: Eye [employer] 12/30/2023 [id number] / [id number] / [id number] Lens Intraoc 22.5 - [id number] - [id number] Implanted:Qty: 1 on 04/05/2020 by Yury Brady MD at OR [facility] Left: Eye [employer] 09/28/2024 [id number] / [id number] / [id number] documented as of this encounter Visit Diagnoses Diagnosis Hypertensive kidney disease with stage 3a chronic kidney disease- Primary Atherosclerosis of [place] coronary artery of [place] heart without angina pectoris Dyslipidemia, goal LDL below 70 Other and unspecified hyperlipidemia History of pulmonary embolism Personal history of pulmonary embolism Tachy-chintan syndrome (HCC) Sinoatrial node dysfunction S/P placement of cardiac pacemaker Cardiac pacemaker in situ Arthralgia of right hip Gastro-esophageal reflux disease with esophagitis, without bleeding Sinus tachycardia Other specified cardiac dysrhythmias Coronary artery disease involving [place] coronary artery of [place] heart without angina pectoris Presence of cardiac pacemaker Cardiac pacemaker in situ Palpitations HTN, goal below 140/90 Unspecified essential hypertension Hypertensive kidney disease with stage 3a chronic kidney disease- Primary Dyslipidemia, goal LDL below 70 Other and unspecified hyperlipidemia Gastro-esophageal reflux disease with esophagitis, without bleeding Atherosclerosis of [place] coronary artery of [place] heart without angina pectoris HTN, goal below 140/90- Primary Unspecified essential hypertension Tachy-chintan syndrome (HCC) Sinoatrial node dysfunction documented in this encounter Advance Directives Documents on File Type Date Recorded Patient Refuse Laborer Expl anation Advance Directives and Living Will [...] Agen t (per Health Care Power of Neon Sign Servicer document) Guille Urban Adult Child Health Care Agen t (per Health Care Power of Neon Sign Servicer document) Care Teams Licensing Engineer Relationship Specialty Start Date End Date Rafa Bergman MD [address] [place] [address] [place] [phone] PCP - General Family Medicine 04/19/21 documented as of this encounter"
--- OUTSIDE RECORDS SUMMARY | 2024-07-24 00:17 | External Medical Summary | Summary of Care ---
Author Name Unknown Organization [facility] Address [address] [facility] [place] [address] Phone [phone] Care Team Providers Care Fine Jewelry Sales Associate Name Role Phone Rafa Bergman MD Primary Care Provide r Reason for Visit * Reason Onset Date Comments [facility]: Maintenance 02/18/2024 Encounter Details Date Type Department Care Team (Late st Contact Info) Description 02/18/2024 10:30 AM EST Scheduled Telephone [facility], [facility] [address] [facility] [place] [address] [facility], Nurse [facility] 132 [facility] [place] [address] Allergies Active Allergy Reactions Criticality Noted Date Comments Colchicine Diarrhea 06/16/2018 Daptomycin 01/05/2015 Shortness of breath Imipenem Edema airway High 01/05/2015 Metoprolol Low 01/23/2021 Other reaction(s): fatigue Zoledronic Acid 04/24/2012 Myalgias, fever, chills, vomiting x 2 days Sulfa Antibiotics 12/22/2002 Bactrim--itchy all over, eyes swollen documented as of this encounter (statuses as of 02/18/2024) Medications ASPIRIN 81 MG PO TABS Take by mouth at bedtime. Active Acetaminophen 500 MG Oral Tablet Take 2 Tablets by mouth every 6 hours as needed for Pain. Active CoQ10 100 MG Oral Capsule Take by mouth. Activ e Loperamide HCl 2 MG Oral Capsule (Imodium)Indicati [...] as needed for Constipation. 3 Active Nystatin 751951 UNIT/GM External Powder (Nystop)Indicatio ns:Rash and nonspecific skin eruption Apply topically to affected area 2 times a day. 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 [...] Oral Tablet (Crestor)Indicati ons:Dyslipidemia, goal LDL below 70,Coronary artery disease involving [place] coronary artery of [place] heart without angina pectoris TAKE ONE TABLET BY MOUTH IN THE MORNING 90 Tablet 3 4 Active Propranolol HCl 10 MG Oral Tablet (Inderal)Indicati ons:Sinus tachycardia,Tachy -chintan syndrome (HCC),Coronary artery disease involving [place] coronary artery of [place] heart without angina pectoris,Presence of cardiac pacemaker,Palpita tions,HTN, goal below 140/90 Take one-half Tablet by mouth in the morning and before bedtime. 90 Tablet 3 01/11/2024 8:04 AM EDT 4 Active Levothyroxine Sodium 125 MCG Oral Tablet (Levoxyl)Indicati ons:Hypothyroidis m (acquired) Take 1 Tablet by mouth daily first thing in the morning. (at least 30 min prior to breakfast or other meds) 90 Tablet 2 4 Active Verapamil HCl ER 240 MG Oral Tablet Extended Release (Isoptin SR) Take 1 Tablet by mouth in the morning and 1 Tablet before bedtime. 180 Tablet 2 4 Active Vitamin B-12 1000 MCG Oral Tablet (Cyanocobalamin) Take 1 Tablet by mouth in the morning. In the morning.. 90 Tablet 1 01/18/2024 2:38 PM EDT 4 Active Ondansetron HCl 4 MG Oral TabletIndications :Nausea Take 1 Tablet by mouth every 8 hours as needed for Nausea. 30 Tablet 4 Active Spironolactone 25 MG Oral Tablet (Aldactone)Indica tions:Dyslipidemi a, goal LDL below 70 Take 0.5 Tablets by mouth daily as needed (swelling). 90 Tablet 1 02/14/2024 4:11 PM EST 4 Active Famotidine 20 MG Oral Tablet (Pepcid) Take 1 Tablet by mouth at bedtime. 90 Tablet 3 4 Active Topiramate 25 MG Oral Tablet (Topamax)Indicati ons:Migraine variant Take 1 Tablet by mouth every night at bedtime. 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 2 mg IZ PRN 11/07/2023 11/06/2024 Active Denosumab (Prolia) subcut inj 60 mgIndications:Senile osteoporosis 60 mg SC [id number] 02/13/2024 08/11/2024 Active documented as of this encounter (statuses as of 02/18/2024) Active Problems Problem Noted Date Diagnosed Date Nevus of 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 History of RI (myocardial infarction) 11/27/2022 History of pulmonary embolism [...] [place] heart without angina pectoris 07/08/2018 Overview (11/21/2023): history of NSTEMI status post AMIE to LAD (culprit) and RCA, 04/28/2018 Assessment & Plan (01/24/2024 4:40 PM EDT): Cardiac rehab at [facility] 2x week Assessment & Plan [...] as of this encounter (statuses as of 02/18/2024) Resolved Problems Problem Noted Date Diagnosed Date Resolved Date Purulent endophthalmitis of right eye 01/03/2023 11/08/2023 Other pulmonary embolism wit h acute cor pulmonale 10/01/2022 04/26/2023 Overview (04/26/2023): history Medical home patient encounter 09/13/2022 11/08/2023 Atherosclerosis of coronary artery of [place] heart without angina pectoris 09/10/2022 10/31/2022 Hypothyroidism [...] filter 02/28/2015 Atherosclerotic heart diseas e of [place] coronary artery with angina pectoris 11/2018 CKD (chronic kidney disease) stage 2, GFR 60-89 ml/min 03/12/2019 documented as of this encounter (statuses as of 02/18/2024) Immunizations Name Administration Dates Next Due COVID-19 [...] Recorded Sex Assigned at Not on file Legal Sex Female 5:27 AM EST Gender Identity Not on file Sexual Orientation Not on file 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 [facility] Telephonic Nurse Follow-Up Call [facility] Subprogram: Focused Care Management (3-9 months) Follow Up Call Type: Routine follow up call / Status Check Acute issue requiring follow-up call: Other: Lab Results Urine culture/sensitivity pending Objective: 02/14/2024 2:31 PM 02/06/2024 5:08 PM 01/20/2024 12:19 PM 01/20/2024 12:18 PM 12/04/2023 12:30 PM VITALS ACROSS ENCOUNTERS BP 106/62 118/72 100/70 116/78 100/56 Pulse 79 80 78 68 Remote Patient Monitoring: NONE Oxygen Needs: NO supplemental oxygen needs identified DME Needs: NO DME needs identified Medications: New medication(s) added: Prednisone taper started 02/16 by PCP , Topamax started 02/13 for Migraine Subjective: Condition Status: No change in symptoms Current Concerns: No change in symptoms, headaches, sinus pain/pressure, Tired. Disposition: Routed to [facility] and/or [facility] Care Team for further advice Future Visits Scheduled: Future Appointments-next 60 days Date/Time Provider Specialty Dept Phone 02/18/2024 10:30 AM [facility], Nurse [facility] [phone] 02/19/2024 10:30 AM [facility] Nurse [facility] [phone] 02/21/2024 10:30 AM (Arrive by 10:15 AM) Nurse Tyler Marvin Ia Rheumatology [phone] 02/25/2024 2:30 PM (Arrive by 2:15 PM) Arianna Szymanksi MD Hematology Oncology [phone] 03/18/2024 2:15 PM Pedro Tinsley DO Ophthalmology [phone] 03/19/2024 4:00 PM Olinda Briggs, CHRISTINA [facility] [phone] 03/30/2024 11:00 AM Leon Live PA-C [facility] [phone] 05/22/2024 3:45 PM (Arrive by 3:30 PM) Guy Trivedi MD Dermatology [phone] 06/16/2024 10:00 AM (Arrive by 9:30 AM) Glory Keith MD Neurology [phone] 06/25/2024 9:00 AM (Arrive by 8:45 AM) Rafa Bergman MD Family Medicine [phone] 07/21/2024 10:00 AM [facility] Radiology [phone] 09/04/2024 1:00 PM (Arrive by 12:45 PM) Deangelo Holley MD Rheumatology [phone] Gemini Kennedy, RN documented in this encounter Plan of Treatment Upcoming Encounters Date Type Department Care Team (Late st Contact Info) Description 02/19/2024 10:30 AM EST Scheduled Telephone [facility], [facility] [address] [facility] [place] [address] [facility] [address] [facility] [place] [address] 02/21/2024 10:30 AM EST Nurse Only Rheumatology [place] [address] [place] [phone] [place], Nurse [address] [place] [phone] 02/25/2024 2:30 PM EST Office Visit Hematology/Oncology [facility] [address] [place] [phone] Arianna Szymanski MD 200 [facility] [place] [address] 03/18/2024 2:15 PM EST Office Visit Ophthalmology, [facility] [address] [place] [address] Pedro Tinsley DO [address] [place] [address] 03/19/2024 4:00 PM EST Home Visit [facility], [facility] [address] [place] [address] Olinda Briggs, CHRISTINA [address] [place] [address] 03/30/2024 11:00 AM EST Home Visit [facility], [facility] [address] [place] [address] Leon Live PA-C [address] [place] [address] 05/22/2024 3:45 PM EST Office Visit Dermatology [facility] [address] [place] [address] Guy Trivedi MD [address] [place] [address] 06/16/2024 10:00 AM EDT Office Visit Neurology [address] [place] [phone] Glory Keith MD [address] [place] [phone] 06/25/2024 9:00 AM EDT Office Visit Family Medicine [address] [place] [phone] Rfaa Bergman MD [address] [place] [address] [place] [address] 07/21/2024 10:00 AM EDT Imaging Radiology, [address] [place] [address] 09/04/2024 1:00 PM EDT Office Visit Rheumatology [address] [place] [phone] Deangelo Holley MD [facility] [employer] [place] [address] Health Maintenance Due Date Last Done Comments Adult Wellness Visit 02/06/2018 02/06/2017 Depression Screening 07/17/2022 07/17/2021 COVID-19 Vaccine ( season) 2023 02/05/2022, 08/02/2021, 02/28/2021, Additional history exists Influenza Vaccine (FLU shot) (#1) 2023 04/19/2023, 01/30/2022, 12/28/2020, Additional history exists Albumin/Creatinine Ratio 02/13/2024 023, 03/21/2022, 04/19/2021, Additional history exists HbA1c 04/26/2024 04/26/2023, 03/02, 04/19/2021, Additional history exists CKD PHOS USE SMARTSET 16086 06/26/202405/31, 04/19/2021, 11/27/2019, Additional history exists DXA Scan 07/18/2024 07/18/2022, 06/30, 12/22/2019, Additional history exists GFR 08/16/2024 02/17/2024, 08/0 08/2023, 06/27/2023, Additional history exists TSH 11/14/2024 11/15/2023, 07/0 05/2023, 08/21/2023, Additional history exists CKD HGB USE SMARTSET 61577 02/16/202502/16, 02/17/2024, 06/27/2023, Additional history exists DTap/Tdap Vaccines (3 - Td or Tdap) 09/30/2033 10/01/2023, 11/03/2007 Hepatitis B Vaccine Completed 03/18/2009, 06/14/2008, 05/12/2008 Pneumococcal Vaccine: 65+ Years Completed 03/28/2015, 03/20/2010, 11/15/2004 RETIRED - COLONOSCOPY-EVERY 5 YRS AGES 18-100 Discontinued 02/27/2017, 02/27/2017, 10/17/2004 Zoster Vaccines Completed 06/12/2021, 02/01, 11/04/2012 VITAMIN D LEVEL ONCE IN A LIFETIME-USE SMARTSET# [id number] Completed 06/27/2023, 11/06/2021, 12/28/2019, Additional history exists HPV (Gardasil) Vaccine Aged Out No lo nger eligible based on patient's age to complete this topic MENINGOCOCCAL (MENACTRA/MENVEO) Aged Out No longer eligible based on patient's age to complete this topic documented as of this encounter Medical Devices Implanted Type Area Fruit Harvest Worker Device Identifier Shelf Expiration Date Model / Serial / Lot Lens Intraoc 21.5 - [id number] - [id number] Implanted:Qty: 1 on 05/12/2019 by Yury Brady MD at OR [facility] Right: Eye [employer] LOM[employer] 12/30/2023 [id number] / [id number] / [id number] Lens Intraoc 22.5 - [id number] - [id number] Implanted:Qty: 1 on 04/05/2020 by Yury Brady MD at OR [facility] Left: Eye [employer]OM[employer] 09/28/2024 [id number] / [id number] / [id number] documented as of this encounter Advance Directives Documents on File Type Date Recorded 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
--- OUTSIDE RECORDS SUMMARY | 2024-07-24 00:17 | External Medical Summary | Summary of Care ---
Author Name Unknown Organization [facility] Address [address] [facility] [place] [address] Phone [phone] Care Team Providers Care Insurance Assistant Name Role Phone Rafa Bergman MD Primary Care Provide r Reason for Visit * Reason Onset Date Comments [facility]: Maintenance 02/19/2024 Encounter Details Date Type Department Care Team (Late st Contact Info) Description 02/19/2024 10:30 AM EST Scheduled Telephone [facility], [facility] 132 [facility] [place] [address] [facility], Nurse [facility] 132 [facility] [place] [address] Allergies Active Allergy Reactions Criticality Noted Date Comments Colchicine Diarrhea 06/16/2018 Daptomycin 01/05/2015 Shortness of breath Imipenem Edema airway High 01/05/2015 Metoprolol Low 01/23/2021 Other reaction(s): fatigue Zoledronic Acid 04/24/2012 Myalgias, fever, chills, vomiting x 2 days Sulfa Antibiotics 12/22/2002 Bactrim--itchy all over, eyes swollen documented as of this encounter (statuses as of 02/19/2024) Medications ASPIRIN 81 MG PO TABS Take [...] as needed for Constipation. 3 Active Nystatin 890474 UNIT/GM External Powder (Nystop)Indicatio ns:Rash and nonspecific [...] goal LDL below 70,Coronary artery disease involving [place] coronary artery of [place] heart without angina pectoris TAKE ONE TABLET BY MOUTH IN THE MORNING 90 Tablet 3 4 Active Propranolol HCl 10 MG Oral Tablet (Inderal)Indicati ons:Sinus tachycardia,Tachy -chintan syndrome (HCC),Coronary artery disease involving [place] coronary artery of [place] heart without angina pectoris,Presence of cardiac pacemaker,Palpita [...] inj 60 mgIndications:Senile osteoporosis 60 mg SC [id number] 02/13/2024 08/11/2024 Active documented as of this encounter (statuses as of 02/19/2024) Active Problems Problem Noted Date Diagnosed Date Nevus of 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 History of ND (myocardial infarction) 11/27/2022 History of pulmonary embolism [...] S/P angioplasty with stent 11/27/2018 Atherosclerosis of [place] co ronary artery of [place] heart without angina pectoris 07/08/2018 Overview (11/21/2023): [...] as of this encounter (statuses as of 02/19/2024) Resolved Problems Problem Noted Date Diagnosed Date Resolved Date Purulent endophthalmitis of right eye 01/03/2023 11/08/2023 Other pulmonary embolism wit h acute cor pulmonale 10/01/2022 04/26/2023 Overview (04/26/2023): history Medical home patient encounter 09/13/2022 11/08/2023 Atherosclerosis of coronary artery of [place] heart without angina pectoris 09/10/2022 10/31/2022 Hypothyroidism [...] filter 02/28/2015 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 [facility] Telephonic Nurse Follow-Up Call [facility] Subprogram: Focused Care Management (3-9 months) Follow Up Call Type: Routine follow up call / Status Check Acute issue requiring follow-up call: Other: UTI symptoms, specimen to lab by patient on 02/16 Objective: 02/14/2024 2:31 PM 02/06/2024 5:08 PM 01/20/2024 12:19 PM 01/20/2024 12:18 PM 12/04/2023 12:30 PM VITALS ACROSS ENCOUNTERS BP 106/62 118/72 100/70 116/78 100/56 Pulse 79 80 78 68 Remote Patient Monitoring: NONE Oxygen Needs: NO supplemental oxygen needs identified DME Needs: NO DME needs identified Medications: No medication or dose adjustments made during acute episode Subjective: Condition Status: No change in symptoms Current Concerns: Spoke with Rehana who is calling to inquire about the urine testing results. Advised that the urine culture results: No significant growth Advised no UTI. She states that it rand her a little bit with urination and she has an urgency to urinate. Symptoms onset 3 days prior to her original call on Thursday 02/15. Denies fever or chills. Denies bloody urine or vaginal discharge. She does have some urinary incontinence and does wear pads in her underwear. She admits to recentlychanging to a less expensive brand. She confirms that the timing does correlate with her using the new product. Advised that sometimes a person can be sensitive to what products are composed of and perhaps she can go back to using her original incontinence product and see if these symptoms dissipate. She verbalized understanding of same and states that she plans to do so. She also states she may try the OTC Azo product in the meantime. Disposition: Issue resolved. All appropriate follow up scheduled. Future Visits Scheduled: Future Appointments-next 60 days Date/Time Provider Specialty Dept Phone 02/19/2024 10:30 AM Tari[place], Nurse Malena Mary [facility] [phone] 02/21/2024 10:30 AM (Arrive by 10:15 AM) Nurse Tyler Marvin Dc Rheumatology [phone] 02/24/2024 1:00 PM (Arrive by 12:45 PM) Alfonso Manning MD Neurology [phone] 02/25/2024 2:30 PM (Arrive by 2:15 PM) Arianna Szymanski MD Hematology Oncology [phone] 03/18/2024 2:15 PM Pedro Tinsley DO Ophthalmology [phone] 03/19/2024 4:00 PM Olinda Briggs RN [facility] [phone] 04/30/2024 11:00 AM Leon Live PA-C [facility] [phone] 05/22/2024 3:45 PM (Arrive by 3:30 PM) Guy Trivedi MD Dermatology [phone] 06/16/2024 10:00 AM (Arrive by 9:30 AM) Glory Keith MD Neurology [phone] 06/25/2024 9:00 AM (Arrive by 8:45 AM) Rafa Bergman MD Family Medicine [phone] 07/21/2024 10:00 AM [facility] Radiology [phone] 09/04/2024 1:00 PM (Arrive by 12:45 PM) Deangelo Holley MD Rheumatology [phone] Azeb Em, RN documented in this encounter Plan of Treatment Upcoming Encounters Date Type Department Care Team (Late st Contact Info) Description 02/21/2024 10:30 AM EST Nurse Only Rheumatology [address] [place] [phone] [place], Nurse Rheum [address] [place] [phone] 02/24/2024 1:00 PM EST Office Visit Neurology [facility] [address] [place] [address] Alfonso Manning MD [address] [place] [address] 02/25/2024 2:30 PM EST Office Visit Hematology/Oncology [facility] [address] [place] [phone] Arianna Szymanski MD [address] [place] [address] 03/18/2024 2:15 PM EST Office Visit Ophthalmology, [facility] [address] [place] [address] Pedro Tinsley, [address] [place] [address] 03/19/2024 4:00 PM EST [facility] Visit [facility], [facility] [address] [place] [address] Olinda Briggs, CHRISTINA [address] [place] [address] 04/30/2024 11:00 AM EST Home Visit [facility], [facility] [address] [place] [address] Leon Live PA-C [address] [place] [address] 05/22/2024 3:45 PM EST Office Visit Dermatology [facility] [place] 200 [facility] [place] [address] Guy Trivedi MD 200 [facility] [place] [address] 06/16/2024 10:00 AM EDT Office Visit Neurology [place] [facility] [place] [address] [place] [phone] Glory Keith MD [address] [place] [address] 06/25/2024 9:00 AM EDT Office Visit Family Medicine [address] [phone] Rafa Bergman MD [address] [place] [address] [place] [address] 07/21/2024 10:00 AM EDT Imaging Radiology, [address] [place] [address] 09/04/2024 1:00 PM EDT Office Visit Rheumatology [address] [place] [phone] Deangelo Holley MD [address] [place] [address] [place] [address] Health Maintenance Due Date Last Done Comments Adult Wellness Visit 02/06/2018 02/06/2017 Depression Screening 07/17/2022 07/17/2021 COVID-19 Vaccine ( season) 2023 02/05/2022, 08/02/2021, 02/28/2021, Additional history exists Influenza Vaccine (FLU shot) (#1) 2023 04/19/2023, 01/30/2022, 12/28/2020, Additional history exists Albumin/Creatinine Ratio 02/13/2024 023, 03/21/2022, 04/19/2021, Additional history exists HbA1c 04/26/2024 04/26/2023, 03/02, 04/19/2021, Additional history exists CKD PHOS USE SMARTSET 18134 06/26/202405/31, 04/19/2021, 11/27/2019, Additional history exists DXA Scan 07/18/2024 07/18/2022, 06/30, 12/22/2019, Additional history exists GFR 08/16/2024 02/17/2024, 08/0 08/2023, 06/27/2023, Additional history exists TSH 11/14/2024 11/15/2023, 07/0 05/2023, 08/21/2023, Additional history exists CKD HGB USE SMARTSET 03480 02/16/202502/16, 02/17/2024, 06/27/2023, Additional history exists DTap/Tdap Vaccines (3 - Td or Tdap) 09/30/2033 10/01/2023, 11/03/2007 Hepatitis B Vaccine Completed 03/18/2009, 06/14/2008, 05/12/2008 Pneumococcal Vaccine: 65+ Years Completed 03/28/2015, 03/20/2010, 11/15/2004 RETIRED - COLONOSCOPY-EVERY 5 YRS AGES 18-100 Discontinued 02/27/2017, 02/27/2017, 10/17/2004 Zoster Vaccines Completed 06/12/2021, 02/01, 11/04/2012 VITAMIN D LEVEL ONCE IN A LIFETIME-USE SMARTSET# [id number] Completed 06/27/2023, 11/06/2021, 12/28/2019, Additional history exists HPV (Gardasil) Vaccine Aged Out No lo nger eligible based on patient's age to complete this topic MENINGOCOCCAL (MENACTRA/MENVEO) Aged Out No longer eligible based on patient's age to complete this topic documented as of this encounter Medical Devices Implanted Type Area Crusher Device Identifier Shelf Expiration Date Model / Serial / Lot Lens Intraoc 21.5 - [id number] - [id number] Implanted:Qty: 1 on 05/12/2019 by Yury Brady MD at OR [facility] Right: Eye [employer] 12/30/2023 [id number] / [id number] / [id number] Lens Intraoc 22.5 - [id number] - [id number] Implanted:Qty: 1 on 04/05/2020 by Yury Brady MD at OR [facility] Left: Eye [employer]OM[employer] 09/28/2024 [id number] / [id number] / [id number] documented as of this encounter Advance Directives Documents on File Type Date Recorded 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
--- OUTSIDE RECORDS SUMMARY | 2024-07-24 00:17 | External Medical Summary | Summary of Care ---
Author Name Unknown Organization [facility] Address [address] [facility] [place] [address] Phone [phone] Care Team Providers Care Sap Business Intelligence Consultant Name Role Phone Rafa Bergman MD Primary Care Provide r Reason for Visit * Reason Onset Date Comments Medication Pre-auth 12/12/2023 Prolia Encounter Details Date Type Department Care Team (Late st Contact Info) Description 12/12/2023 Telephone Rheumatology [place] [id number] [employer] [place] [address] Peter Le MD [facility] [email or web address] [place] [address] Medication Pre-auth (Prolia ) Allergies Active Allergy Reactions Criticality Noted Date [...] Active Loperamide HCl 2 MG Oral Capsule (Imodium)Indica [...] Tablet by mouth daily as needed for Constipation . 03/26/20 23 Active Nystatin 774155 UNIT/GM External Powder (Nystop)Indicat ions:Rash and nonspecific skin eruption Apply topically to affected area 2 times a day. Apply to the affected area 60 g 06/05/19 24 Active Nitroglycerin 0.4 MG Sublingual Tablet Sublingual (Nitrostat) Place under the tongue 1 Tablet as needed for Pain, Chest. 25 Tablet 1 01/09/20 22 024 Discontinued Famotidine 20 MG Oral Tablet (Pepcid)Indicat ions:Abdominal pain, epigastric,Naus ea Take 1 Tablet by mouth at bedtime. 90 Tablet 3 03/20/20 23 024 Discontinued(Shiraz menard preference/disc ontinuation) Ondansetron HCl 4 MG Oral TabletIndicatio ns:Nausea Take 1 Tablet by mouth every 8 hours as needed for Nausea. 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 180 Tablet 3 04/22/19 24 024 Discontinued(Re fill) Rosuvastatin Calcium 5 MG Oral Tablet (Crestor)Indica tions:Dyslipide teri, goal LDL below 70 TAKE ONE TABLET BY MOUTH IN THE MORNING 90 Tablet 3 06/06/19 24 024 Discontinued(Re fill) Verapamil HCl ER 240 MG Oral Tablet Extended Release (Isoptin SR) TAKE ONE TABLET BY MOUTH TWICE DAILY 180 Tablet 1 09/18/19 24 024 Discontinued(Pa tient preference/disc ontinuation) Levothyroxine Sodium 125 MCG Oral Tablet (Levoxyl)Indica tions:Hypothyro idism (acquired) Take 1 Tablet by mouth daily first thing in the morning. (at least 30 min prior to breakfast or other meds) 90 Tablet 10/02/19 24 024 Discontinued Montelukast Sodium 10 MG Oral Tablet (Singulair)Belle cations:Seasona l allergies Take 1 Tablet by mouth in the morning. 90 Tablet 1 10/15/19 24 024 Discontinued Propranolol HCl 10 MG Oral Tablet (Inderal)Indica tions:Sinus tachycardia,Tac hy-chintan syndrome (HCC),Coronary artery disease involving washoe coronary artery of washoe heart without angina pectoris,Dyslip idemia, goal LDL below 70,Presence of cardiac pacemaker,Palpi tations,HTN, goal below 140/90 Take 0.5 Tablets by mouth in the morning and 0.5 Tablets before bedtime. 90 Tablet 3 10/28/19 24 024 Discontinued(Re fill) Vitamin B-12 1000 MCG Oral Tablet (Cyanocobalamin ) TAKE ONE TABLET BY MOUTH IN THE MORNING 90 Tablet 1 10/30/19 24 024 Discontinued(Pa tient preference/disc ontinuation) Pantoprazole Sodium 40 MG Oral Tablet Delayed Release (Protonix) Take 1 Tablet by mouth in the morning and 1 Tablet in the evening. In the morning.. 90 Tablet 3 11/21/19 24 024 Discontinued(Re fill) Spironolactone 25 MG Oral Tablet (Aldactone)Belle cations:Dyslipi demia, goal LDL below 70,Tachy-chintan syndrome (HCC),Sinus tachycardia,Cor onary artery disease involving washoe coronary artery of washoe heart without angina pectoris,Presen ce of cardiac pacemaker,Palpi tations,HTN, goal below 140/90 Take 0.5 Tablets by mouth in the morning. 90 Tablet 1 11/21/19 24 024 Discontinued(Re fill) Allopurinol 300 MG Oral Tablet (Zyloprim) TAKE 1 & 1/2 TABLETS BY MOUTH EVERY DAY 135 Tablet 12/03/19 24 024 Discontinued(Re fill) Hospital, Clinic, or Other Facility Administered Medication [...] inj 60 mgIndications:Senile osteoporosis 60 mg SC [id number] 02/13/2024 08/11/2024 Active documented as of this encounter (statuses as of 02/19/2024) Active Problems Problem Noted Date Diagnosed Date Nevus of 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 History of [place] (myocardial infarction) 11/27/2022 History of pulmonary embolism [...] S/P angioplasty with stent 11/27/2018 Atherosclerosis of washoe co ronary artery of washoe heart without angina pectoris 07/08/2018 Overview (11/21/2023): [...] 09/13/2022 11/08/2023 Atherosclerosis of coronary artery of washoe heart without angina pectoris 09/10/2022 10/31/2022 Hypothyroidism [...] of inactive term Intradermal Nevus,right upper arm 8/l311/12/2001 09/15/2013 new lesion- rt shoulder 11/03/200108/30 Prolapse [...] filter 02/28/2015 Atherosclerotic heart diseas e of washoe coronary artery with angina pectoris 11/2018 CKD [...] 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 Not on file Not on file 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 e [employer] Not on file Not on file Not on file documented as of this encounter Miscellaneous Notes * Addendum Note - Peter Le MD - 02/13/2024 2:57 PM ESTAddended by: PETER LE on: 02/13/2024 02:57 PM Modules accepted: Orders * Telephone Encounter - Peter Le MD - 02/13/2024 2:57 PM EST signed * Addendum Note - Yessenia Hernandez LPN - 02/13/2024 2:42 PM ESTAddended by: YESSENIA HERNANDEZ on: 02/13/2024 02:42 PM Modules accepted: Orders * Telephone Encounter - Yessenia Hernandez LPN - 02/13/2024 2:38 PM EST Chart reviewed and labs noted to be within normal limits. Patient has been seen within the last 12 months by a Rheumatology provider. Prolia authorization approved and updated in referral. Last injection has been > 6 months and 1 day. CAM orders pended for signature. Thank you! * Telephone Encounter - Severiano Cantu OSA - 02/05/2024 8:46 AM EST Someone has pt scheduled . * Telephone Encounter - Naya Brown LPN - 01/29/2024 8:52 AM EDT She will need a nurse visit appt in and then the June appt will need changed to 6months and 1 day from the nurse visit appt. Thank You! * Telephone Encounter - Severiano Cantu OSA - 01/29/2024 8:44 AM EDT I see an appt that I scheduled already for pt for 07/27/2024 with Kishan for her Prolia. Does that need changed and she needs seen sooner w/ nurse only? Please advise. * Telephone Encounter - Naya Brown LPN - 01/28/2024 2:53 PM EDT Got message from Rico Avalos stating her financial application was approved on 01/21/2024. Please call and schedule this patient for an appointment with the Rheum Nurse clinic in for Prolia, per referral message no auth needed and we were advised pt would have no oop. Thank you! * Telephone Encounter - Yessenia Hernandez LPN - 01/23/2024 3:00 PM EDT Spoke with pt ",will jarred till FA is approved before getting Prolia." Once approved will call and schedule pt. * Telephone Encounter - Yessenia Hernandez LPN - 01/22/2024 2:10 PM EDT Rico can look into this , pt has apt this Saturday. * Telephone Encounter - Yessenia Hernandez LPN - 01/21/2024 8:13 AM EDT Libby Florentino, ASHLEY to Me [facility] Pool/Class AN 01/20/24 8:01 AM No, this is still pending. We were advised to tell you to reach out to Rico Avalos when waiting on FA to try to get an updatedor have it pushed through quicker. We as PFCS unable to do anything further at this point. * Telephone Encounter - Yessenia Hernandez LPN - 01/20/2024 7:52 AM EDT Pt has an apt. This week for Prolia , any info. On FA * Telephone Encounter - Yessenia Hernandez LPN - 01/14/2024 10:13 AM EDT Have you heard anything on pts FA? * Telephone Encounter - Yessenia Hernandez LPN - 01/07/2024 3:13 PM EDT Did pt fill out paperwork for FA * Telephone Encounter - Yessenia Hernandez LPN - 01/07/2024 7:50 AM EDT Libby Florentino, ASHLEY to Naya Brown LPN [facility]/Class AN 12/23/23 10:20 AM Called patient, she's stating she never received the paperwork. Sending another woody to patient. * Telephone Encounter - Naya Brown LPN - 12/23/2023 9:24 AM EDT Pt is asking for an update on FA for prolia. Thank you! * Telephone Encounter - Yelena Brown LPN - 12/13/2023 3:46 PM EDT FA application already sent to pt * Telephone Encounter - Yelena Brown LPN - 12/13/2023 11:53 AM EDT Pt needs assistance with her oop, states last time she had a bill for $400. Please advise of her oop, thx * Telephone Encounter - Angela Rodriguez [facility] - 12/13/2023 10:18 AM EDT Auth okay * Telephone Encounter - Kimberley Prescott OSA - 12/13/2023 7:40 AM EDT See referral message * Telephone Encounter - Yessenia Hernandez LPN - 12/12/2023 11:31 AM EDT Pt has upcoming apt.Please reauth Prolia. documented in this encounter Plan of Treatment Upcoming Encounters Date Type Department Care Team (Late st Contact Info) Description 02/19/2024 10:30 AM EST Scheduled Telephone [facility], [facility] [address] [facility] [place] [address] [facility], Nurse [facility] [address] [facility] [place] [address] 02/21/2024 10:30 AM EST Nurse Only Rheumatology [address] [place] [phone] [place], Nurse [address] [place] [phone] 02/24/2024 1:00 PM EST Office Visit Neurology [facility] [address] [facility] [place] [address] Alfonso Manning MD [address] [facility] [place] [address] 02/25/2024 2:30 PM EST Office Visit [facility]ematology[facility] [employer] [address] [facility] [place] [phone] Arianna Szymanski MD [address] [place] [address] 03/18/2024 2:15 PM EST Office Visit Ophthalmology, [facility] [address] [facility] [place] [address] Pedro Tinsley DO [address] [place] [address] 03/19/2024 4:00 PM EST Home Visit [facility], [facility] [address] [place] [address] Olinda Briggs, CHRISTINA [address] [place] [address] 04/30/2024 11:00 AM EST Home Visit [facility] [address] [facility] [place] [address] Leon Live PA-C [address] [place] [address] 05/22/2024 3:45 PM EST Office Visit Dermatology [facility] 200 [facility] [place] [address] Guy Trivedi MD [address] [facility] [place] [address] 06/16/2024 10:00 AM EDT Office Visit Neurology [address] [place] [phone] Glory Keith MD [address] [facility] [place] [address] 06/25/2024 9:00 AM EDT Office Visit Family Medicine [address] [phone] Rafa Bergman MD [address] [place] [address] [place] [address] 07/21/2024 10:00 AM EDT Imaging Radiology, [place] [address] [employer] [place] [address] 09/04/2024 1:00 PM EDT Office Visit Rheumatology [address] [place] [phone] Peter Le MD [address] [email or web address] [place] [address] Health Maintenance Due Date Last Done Comments Adult Wellness Visit 02/06/2018 02/06/2017 Depression Screening 07/17/2022 07/17/2021 COVID-19 Vaccine ( season) 2023 02/05/2022, 08/02/2021, 02/28/2021, Additional history exists Influenza Vaccine (FLU shot) (#1) 2023 04/19/2023, 01/30/2022, 12/28/2020, Additional history exists Albumin/Creatinine Ratio 02/13/2024 023, 03/21/2022, 04/19/2021, Additional history exists HbA1c 04/26/2024 04/26/2023, 03/02, 04/19/2021, Additional history exists CKD PHOS USE SMARTSET 43068 06/26/202405/31, 04/19/2021, 11/27/2019, Additional history exists DXA Scan 07/18/2024 07/18/2022, 06/30, 12/22/2019, Additional history exists GFR 08/16/2024 02/17/2024, 08/0 08/2023, 06/27/2023, Additional history exists TSH 11/14/2024 11/15/2023, 07/0 05/2023, 08/21/2023, Additional history exists CKD HGB USE SMARTSET 19743 02/16/202502/16, 02/17/2024, 06/27/2023, Additional history exists DTap/Tdap Vaccines (3 - Td or Tdap) 09/30/2033 10/01/2023, 11/03/2007 Hepatitis B Vaccine Completed 03/18/2009, 06/14/2008, 05/12/2008 Pneumococcal Vaccine: 65+ Years Completed 03/28/2015, 03/20/2010, 11/15/2004 RETIRED - COLONOSCOPY-EVERY 5 YRS AGES 18-100 Discontinued 02/27/2017, 02/27/2017, 10/17/2004 Zoster Vaccines Completed 06/12/2021, 02/01, 11/04/2012 VITAMIN D LEVEL ONCE IN A LIFETIME-USE SMARTSET# [id number] Completed 06/27/2023, 11/06/2021, 12/28/2019, Additional history exists HPV (Gardasil) Vaccine Aged Out No lo nger eligible based on patient's age to complete this topic MENINGOCOCCAL (MENACTRA/MENVEO) Aged Out No longer eligible based on patient's age to complete this topic documented as of this encounter Medical Devices Implanted Type Area Ring Facer Device Identifier Shelf Expiration Date Model / Serial / Lot Lens Intraoc 21.5 - [id number] - [id number] Implanted:Qty: 1 on 05/12/2019 by Yury Brady MD at OR [facility] Right: Eye [employer] 12/30/2023 [id number] / [id number] / [id number] Lens Intraoc 22.5 - [id number] - [id number] Implanted:Qty: 1 on 04/05/2020 by Yury Brady MD at OR [facility] Left: Eye [employer] 09/28/2024 [id number] / [id number] / [id number] documented as of this encounter Visit Diagnoses Diagnosis Hypertensive kidney disease with stage 3a chronic kidney disease- Primary Atherosclerosis of washoe coronary artery of washoe heart without angina pectoris Dyslipidemia, goal LDL below 70 Other and unspecified hyperlipidemia History of pulmonary embolism Personal history of pulmonary embolism Tachy-chintan syndrome (HCC) Sinoatrial node dysfunction S/P placement of cardiac pacemaker Cardiac pacemaker in situ Arthralgia of right hip Gastro-esophageal reflux disease with esophagitis, without bleeding Sinus tachycardia Other specified cardiac dysrhythmias Coronary artery disease involving washoe coronary artery of washoe heart without angina pectoris Presence of cardiac pacemaker Cardiac pacemaker in situ Palpitations HTN, goal below 140/90 Unspecified essential hypertension Senile osteoporosis- Primary Hypertensive kidney disease with stage 3a chronic kidney disease- Primary Dyslipidemia, goal LDL below 70 Other and unspecified hyperlipidemia Gastro-esophageal reflux disease with esophagitis, without bleeding 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
--- OUTSIDE RECORDS SUMMARY | 2024-07-24 00:17 | External Medical Summary | Summary of Care ---
Author Name Unknown Organization [facility] Address [address] [place] [address] Phone [phone] Care Team Providers Care Manager Business Development Hospice Name Role Phone Rafa Bergman MD Primary Care Provide r Reason for Visit * Reason Onset Date Comments Appointment 02/18/2024 Encounter Details Date Type Department Care Team (Late st Contact Info) Description 02/18/2024 Telephone [facility] [place] [address] [place] [address] Lex, Izzy, ASHLEY [address] [place] [address] Appointment Allergies Active Allergy Reactions Criticality Noted [...] as needed for Constipation. 3 Active Nystatin 375918 UNIT/GM External Powder (Nystop)Indicatio ns:Rash and nonspecific [...] goal LDL below 70,Coronary artery disease involving lac vieux coronary artery of lac vie[place] heart without angina pectoris TAKE ONE TABLET BY MOUTH IN THE MORNING 90 Tablet 3 4 Active Propranolol HCl 10 MG Oral Tablet (Inderal)Indicati ons:Sinus tachycardia,Tachy -chintan syndrome (HCC),Coronary artery disease involving lac vieux coronary artery of lac vie[place] heart without angina pectoris,Presence of cardiac pacemaker,Palpita [...] inj 60 mgIndications:Senile osteoporosis 60 mg SC [id number] 02/13/2024 08/11/2024 Active documented as of this encounter (statuses as of 02/18/2024) Active Problems Problem Noted Date Diagnosed Date Nevus of 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 History of [place] (myocardial infarction) 11/27/2022 History of pulmonary embolism [...] angioplasty with stent 11/27/2018 Atherosclerosis of [place] co ronary artery of lac vieux heart without angina pectoris 07/08/2018 Overview (11/21/2023): history of NSTEMI status post AMIE to LAD (culprit) and RCA, 04/28/2018 Assessment & Plan (01/24/2024 4:40 PM EDT): Cardiac rehab at [facility] 2x week Assessment & Plan (11/21/2023 [...] 09/13/2022 11/08/2023 Atherosclerosis of coronary artery of lac vie[place] heart without angina pectoris 09/10/2022 10/31/2022 Hypothyroidism [...] filter 02/28/2015 Atherosclerotic heart diseas e of lac vie[place] coronary artery with angina pectoris 11/2018 CKD [...] Not on file 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 Spoke with patient and confirmed. documented in this encounter Plan of Treatment Upcoming Encounters Date Type Department Care Team (Late st Contact Info) Description 02/19/2024 10:30 AM EST Scheduled Telephone [facility], [facility] 132 [facility] [place] [address] [facility], Nurse [address] [place] [address] 02/21/2024 10:30 AM EST Nurse Only Rheumatology [address] [place] [phone] [place], Nurse [address] [place] [phone] 02/24/2024 1:00 PM EST Office Visit [facility] [address] [place] [address] Alfonso Manning MD [address] [place] [address] 02/25/2024 2:30 PM EST Office Visit Hematology/Oncology [facility] [address] [place], [place] [address] Arianna Szymanski MD 200 [facility] [place], [place] [address] 03/18/2024 2:15 PM EST Office Visit Ophthalmology, [facility] [address] [place] [address] Pedro Tinsley, [address] [place] [address] 03/19/2024 4:00 PM EST Home Visit [facility], [facility] 132 [facility] [place] [address] Olinda Briggs RN [address] [place] [address] 04/30/2024 11:00 AM EST Home Visit [facility], [facility] 132 [place] [address] Leon Live PA-C [address] [place] [address] 05/22/2024 3:45 PM EST Office Visit Dermatology [facility] [address] [place], [place] [address] Guy Trivedi MD [address] [place] [address] 06/16/2024 10:00 AM EDT Office Visit Neurology [address] [place] [phone] Glory Keith MD [address] [facility] [place] [address] 06/25/2024 9:00 AM EDT Office Visit Family Medicine [address] [place] [phone] Rafa Bergman MD [address] [place] [address] [place] [address] 07/21/2024 10:00 AM EDT Imaging Radiology, [address] [place] [address] 09/04/2024 1:00 PM EDT Office Visit Rheumatology [address] [place] [phone] Deangelo Holley MD [facility] [employer] [place] [address] Health Maintenance Due Date Last Done Comments Adult Wellness Visit 02/06/2018 02/06/2017 Depression Screening 07/17/2022 07/17/2021 COVID-19 Vaccine ( season) 2023 02/05/2022, 08/02/2021, 02/28/2021, Additional history exists Influenza Vaccine (FLU shot) (#1) 2023 04/19/2023, 01/30/2022, 12/28/2020, Additional history exists Albumin/Creatinine Ratio 02/13/2024 023, 03/21/2022, 04/19/2021, Additional history exists HbA1c 04/26/2024 04/26/2023, 03/02, 04/19/2021, Additional history exists CKD PHOS USE SMARTSET 05764 06/26/202405/31, 04/19/2021, 11/27/2019, Additional history exists DXA Scan 07/18/2024 07/18/2022, 06/30, 12/22/2019, Additional history exists GFR 08/16/2024 02/17/2024, 08/0 08/2023, 06/27/2023, Additional history exists TSH 11/14/2024 11/15/2023, 07/0 05/2023, 08/21/2023, Additional history exists CKD HGB USE SMARTSET 18270 02/16/202502/16, 02/17/2024, 06/27/2023, Additional history exists DTap/Tdap Vaccines (3 - Td or Tdap) 09/30/2033 10/01/2023, 11/03/2007 Hepatitis B Vaccine Completed 03/18/2009, 06/14/2008, 05/12/2008 Pneumococcal Vaccine: 65+ Years Completed 03/28/2015, 03/20/2010, 11/15/2004 RETIRED - COLONOSCOPY-EVERY 5 YRS AGES 18-100 Discontinued 02/27/2017, 02/27/2017, 10/17/2004 Zoster Vaccines Completed 06/12/2021, 02/01, 11/04/2012 VITAMIN D LEVEL ONCE IN A LIFETIME-USE SMARTSET# 59555 Completed 06/27/2023, 11/06/2021, 12/28/2019, Additional history exists HPV (Gardasil) Vaccine Aged Out No lo nger eligible based on patient's age to complete this topic MENINGOCOCCAL (MENACTRA/MENVEO) Aged Out No longer eligible based on patient's age to complete this topic documented as of this encounter Medical Devices Implanted Type Area Rubber Roller Grinder Device Identifier Shelf Expiration Date Model / Serial / Lot Lens Intraoc 21.5 - [id number] - [id number] Implanted:Qty: 1 on 05/12/2019 by Yury Brady MD at OR [facility] Right: Eye [employer] 12/30/2023 [id number] / [id number] / [id number] Lens Intraoc 22.5 - [id number] - [id number] Implanted:Qty: 1 on 04/05/2020 by Yury Brady MD at OR [facility] Left: Eye [employer] 09/28/2024 [id number] / [id number] / [id number] documented as of this encounter Advance Directives Documents on File Type Date Recorded 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
--- OUTSIDE RECORDS SUMMARY | 2024-07-24 00:17 | External Medical Summary | Summary of Care ---
Author Name Unknown Organization [facility] Address [address] [facility] [place] [address] Phone [phone] Care Team Providers Care Obstetrics Teacher Name Role Phone Rafa Bergman MD Primary Care Provide r Reason for Visit * Reason Comments Outpatient Testing Encounter Details Date Type Department Care Team (Late st Contact Info) Description 02/17/2024 11:10 AM EST Laboratory Laboratory [address] [place] [phone] [place] [address] History of DVT (deep vein thrombosis); History of pulmonary embolism; Flank pain; Dysuria; Urinary incontinence, nocturnal enuresis Allergies Active Allergy Reactions Criticality Noted Date Comments Colchicine Diarrhea 06/16/2018 Daptomycin 01/05/2015 Shortness of breath Imipenem Edema airway High 01/05/2015 Metoprolol Low 01/23/2021 Other reaction(s): fatigue Zoledronic Acid 04/24/2012 Myalgias, fever, chills, vomiting x 2 days Sulfa Antibiotics 12/22/2002 Bactrim--itchy all over, eyes swollen documented as of this encounter (statuses as of 02/17/2024) Medications ASPIRIN 81 MG PO TABS Take [...] as needed for Constipation. 3 Active Nystatin 629387 UNIT/GM External Powder (Nystop)Indicatio ns:Rash and nonspecific [...] goal LDL below 70,Coronary artery disease involving sokaogon coronary artery of sokaogon heart without angina pectoris TAKE ONE TABLET BY MOUTH IN THE MORNING 90 Tablet 3 4 Active Propranolol HCl 10 MG Oral Tablet (Inderal)Indicati ons:Sinus tachycardia,Tachy -chintan syndrome (HCC),Coronary artery disease involving sokaogon coronary artery of sokaogon heart without angina pectoris,Presence of cardiac pacemaker,Palpita [...] inj 60 mgIndications:Senile osteoporosis 60 mg SC [id number] 02/13/2024 08/11/2024 Active documented as of this encounter (statuses as of 02/17/2024) Active Problems Problem Noted Date Diagnosed Date [...] of sokaogon heart without angina pectoris 07/08/2018 Overview (11/21/2023): [...] as of this encounter (statuses as of 02/17/2024) Resolved Problems Problem Noted Date Diagnosed Date Resolved Date Purulent endophthalmitis of right eye 01/03/2023 11/08/2023 Other pulmonary embolism wit h acute cor pulmonale 10/01/2022 04/26/2023 Overview (04/26/2023): history Medical home patient encounter 09/13/2022 11/08/2023 Atherosclerosis of coronary artery of sokaogon heart without angina pectoris 09/10/2022 10/31/2022 Hypothyroidism [...] lesion- rt shoulder 11/03/200108/30 Prolapse of vaginal pteerson 10/28/2000 Overview (07/05/2015): ICD-10 update of inactive [...] filter 02/28/2015 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 11/2018 CKD (chronic kidney disease) stage 2, GFR 60-89 ml/min 03/12/2019 documented as of this encounter (statuses as of 02/17/2024) Immunizations Name Administration Dates Next Due COVID-19 [...] No 02/06/2024 Does the household have a [facility] source of income? 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 Not on file Not on file documented as of this encounter Miscellaneous Notes * Addendum Note - Maria E Ardon PBT - 02/17/2024 10:08 PM ESTAddended by: MARIA E ARDON on: 02/17/2024 10:08 PM Modules accepted: Orders documented in this encounter Plan of Treatment Upcoming Encounters Date Type Department Care Team (Late st Contact Info) Description 02/18/2024 10:30 AM EST Scheduled Telephone [facility] at [address] [place] [address] [facility] Nurse [address] [place] [address] 02/19/2024 10:30 AM EST Scheduled Telephone [facility], [facility] [address] [place] [address] [facility] Nurse [address] [place] [address] 02/21/2024 10:30 AM EST Nurse Only Rheumatology [address] [place] [phone] [place], Nurse [address] [place] [phone] 02/25/2024 2:30 PM EST Office Visit Hematology/Oncology [facility] [address] [place] [phone] Arianna Szymanski MD [address] [place] [address] 03/18/2024 2:15 PM EST Office Visit Ophthalmology, [facility] [address] [place] [address] Pedro Tinsley DO [address] [place] [address] 03/19/2024 4:00 PM EST [facility] Visit [facility], [facility] [address] [place] [address] Olinda Briggs, CHRISTINA [address] [place] [address] 03/30/2024 11:00 AM EST [facility] Visit [facility] [place], [facility] [address] [place] [address] Leon Live PA-C [address] [place] [address] 05/22/2024 3:45 PM EST Office Visit Dermatology [facility] [address] [place] [address] Guy Trivedi MD [address] [place] [address] 06/16/2024 10:00 AM EDT Office Visit Neurology [address] [place] [phone] Glory Keith MD [address] [place] [address] 06/25/2024 9:00 AM EDT Office Visit Family Medicine [address] [place] [phone] Rafa Bergman MD [address] [place] [address] [place] [address] 07/21/2024 10:00 AM EDT Imaging Radiology, [address] [place] [address] 09/04/2024 1:00 PM EDT Office Visit Rheumatology [address] [place] [phone] Deangelo Holley MD [facility] [place] [address] Pending Results Name Type Priority Associated Diagnoses Date /Time CBC WITH WBC DIFFERENTIAL Lab Routine History of DVT (deep vein thrombosis) History of pulmonary embolism 02/17/2024 11:19 AM EST COMPREHENSIVE METABOLIC PANEL Lab Routine History of DVT (deep vein thrombosis) History of pulmonary embolism 02/17/2024 11:19 AM EST URINALYSIS, REFLEX TO CULTURE (NOT FOR NEUTROPENIC PATIENTS) Lab Routine Flank pain Dysuria Urinary incontinence, nocturnal enuresis 02/17/2024 11:19 AM EST CBC Lab Routine History of DVT (deep vein thrombosis) History of pulmonary embolism 02/17/2024 11:19 AM EST DIFFERENTIAL, AUTOMATED Lab Routine History of DVT (deep vein thrombosis) History of pulmonary embolism 02/17/2024 11:19 AM EST URINALYSIS, REFLEX TO CULTURE Lab Routine Flank pain Dysuria Urinary incontinence, nocturnal enuresis 02/17/2024 11:19 AM EST CULTURE, URINE, QUANTITATIVE Lab Routine Dysuria 02/17/2024 11:19 AM EST Health Maintenance Due Date Last Done Comments Adult Wellness Visit 02/06/2018 02/06/2017 Depression Screening 07/17/2022 07/17/2021 COVID-19 Vaccine ( season) 2023 02/05/2022, 08/02/2021, 02/28/2021, Additional history exists Influenza Vaccine (FLU shot) (#1) 2023 04/19/2023, 01/30/2022, 12/28/2020, Additional history exists Albumin/Creatinine Ratio 02/13/2024 023, 03/21/2022, 04/19/2021, Additional history exists HbA1c 04/26/2024 04/26/2023, 03/02, 04/19/2021, Additional history exists GFR 05/07/2024 11/05/2023, 05/31, 06/14/2023, Additional history exists CKD HGB USE SMARTSET 47222 06/26/202406/26, 06/27/2023, 04/26/2023, Additional history exists CKD PHOS USE SMARTSET 06998 06/26/202405/31, 04/19/2021, 11/27/2019, Additional history exists DXA Scan 07/18/2024 07/18/2022, 06/30, 12/22/2019, Additional history exists TSH 11/14/2024 11/15/2023, 07/0 05/2023, 08/21/2023, Additional history exists DTap/Tdap Vaccines (3 - Td or Tdap) 09/30/2033 10/01/2023, 11/03/2007 Hepatitis B Vaccine Completed 03/18/2009, 06/14/2008, 05/12/2008 Pneumococcal Vaccine: 65+ Years Completed 03/28/2015, 03/20/2010, 11/15/2004 RETIRED - COLONOSCOPY-EVERY 5 YRS AGES 18-100 Discontinued 02/27/2017, 02/27/2017, 10/17/2004 Zoster Vaccines Completed 06/12/2021, 02/01, 11/04/2012 VITAMIN D LEVEL ONCE IN A LIFETIME-USE SMARTSET# [id number] Completed 06/27/2023, 11/06/2021, 12/28/2019, Additional history exists HPV (Gardasil) Vaccine Aged Out No lo nger eligible based on patient's age to complete this topic MENINGOCOCCAL (MENACTRA/MENVEO) Aged Out No longer eligible based on patient's age to complete this topic documented as of this encounter Medical Devices Implanted Type Area Technical Associate Device Identifier Shelf Expiration Date Model / Serial / Lot Lens Intraoc 21.5 - [id number] - [id number] Implanted:Qty: 1 on 05/12/2019 by Yury Brady MD at OR [facility] Right: Eye [employer] 12/30/2023 [id number] / [id number] / [id number] Lens Intraoc 22.5 - [id number] - [id number] Implanted:Qty: 1 on 04/05/2020 by Yury Brady MD at OR [facility] Left: Eye [employer] 09/28/2024 [id number] / [id number] / [id number] documented as of this encounter Procedures Procedure Name Priority Date/Time Associated Diagnosis Comments URINALYSIS, REFLEX TO CULTURE (CUP ONLY) Routine 02/17/2024 11:19 AM EST Flank pain Dysuria Urinary incontinence, nocturnal enuresis documented in this encounter Results * URINALYSIS, REFLEX TO CULTURE (CUP ONLY) (02/17/2024 11:19 AM EST) Urinalysis, Reflex to Culture Specimen Specimen collected and received 02/17/2024 1:02 PM EST [facility] [place] Urine specimen obtained by clean catch procedure / Unknown Non-blood Collection / Unknown 02/17/2024 11:19 AM EST 02/17/2024 11:19 AM EST us Leon Live PA-C LAB URINE ORDERABLES Final R esult [facility] [address] [place] [address] documented in this encounter Visit Diagnoses Diagnosis Hypertensive kidney disease with stage 3a chronic kidney disease- Primary Atherosclerosis of sokaogon coronary artery of sokaogon heart without angina pectoris Dyslipidemia, goal LDL below 70 Other and unspecified hyperlipidemia History of pulmonary embolism Personal history of pulmonary embolism Tachy-chintan syndrome (HCC) Sinoatrial node dysfunction S/P placement of cardiac pacemaker Cardiac pacemaker in situ Arthralgia of right hip Gastro-esophageal reflux disease with esophagitis, without bleeding Sinus tachycardia Other specified cardiac dysrhythmias Coronary artery disease involving sokaogon coronary artery of sokaogon heart without angina pectoris Presence of cardiac pacemaker Cardiac pacemaker in situ Palpitations HTN, goal below 140/90 Unspecified essential hypertension Hypertensive kidney disease with stage 3a chronic kidney disease- Primary Dyslipidemia, goal LDL below 70 Other and unspecified hyperlipidemia Gastro-esophageal reflux disease with esophagitis, without bleeding Atherosclerosis of sokaogon coronary artery of sokaogon heart without angina pectoris History of DVT (deep vein thrombosis) Personal history of venous thrombosis and embolism History of pulmonary embolism Personal history of pulmonary embolism Flank pain Abdominal pain, unspecified site Dysuria Urinary incontinence, nocturnal enuresis Nocturnal enuresis documented in this encounter Advance Directives Documents on File Type Date Recorded Patient Special Education Inclusion Teacher Expl anation Advance Directives and Living [...] t (per Health Care Power of Rn Managed Care document) Guille Urban Adult Child Health Care Agen t (per Health Care Power of Rn Managed Care document) Care Teams Obstetrics Teacher Relationship Specialty Start Date End Date Rafa Bergman MD [address] [place] [address] [place] [phone] PCP - General Family Medicine 04/19/21 documented as of this encounter
--- OUTSIDE RECORDS SUMMARY | 2024-07-24 00:17 | External Medical Summary | Summary of Care ---
Author Name Unknown Organization [facility] Address [address] [facility] [place] [address] Phone [phone] Care Team Providers Care Distribution Center Manager Name Role Phone Rafa Bergman MD Primary Care Provide r Reason for Visit * Reason Comments Medication Administration prolia Encounter Details Date Type Department Care Team (Late st Contact Info) Description 02/21/2024 10:30 AM EST Nurse Only Rheumatology [address] [place] [phone] [place], Nurse Rheum [address] [place] [phone] Medication Administration (prolia) Allergies Active Allergy Reactions Criticality Noted Date Comments Colchicine Diarrhea 06/16/2018 Daptomycin 01/05/2015 Shortness of breath Imipenem Edema airway High 01/05/2015 Metoprolol Low 01/23/2021 Other reaction(s): fatigue Zoledronic Acid 04/24/2012 Myalgias, fever, chills, vomiting x 2 days Sulfa Antibiotics 12/22/2002 Bactrim--itchy all over, eyes swollen documented as of this encounter (statuses as of 02/21/2024) Medications ASPIRIN 81 MG PO TABS Take [...] as needed for Constipation. 3 Active Nystatin 953116 UNIT/GM External Powder (Nystop)Indicatio ns:Rash and nonspecific [...] goal LDL below 70,Coronary artery disease involving blackfeet coronary artery of blackfeet heart without angina pectoris TAKE ONE TABLET BY MOUTH IN THE MORNING 90 Tablet 3 4 Active Propranolol HCl 10 MG Oral Tablet (Inderal)Indicati ons:Sinus tachycardia,Tachy -chintan syndrome (HCC),Coronary artery disease involving blackfeet coronary artery of blackfeet heart without angina pectoris,Presence of cardiac pacemaker,Palpita [...] inj 60 mgIndications:Senile osteoporosis 60 mg SC [id number] 02/13/2024 02/21/2024 Ended documented as of this encounter (statuses as of 02/21/2024) Active Problems Problem Noted Date Diagnosed Date Nevus of 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 History of TN (myocardial infarction) 11/27/2022 History of pulmonary embolism [...] S/P angioplasty with stent 11/27/2018 Atherosclerosis of blackfeet co ronary artery of blackfeet heart without angina pectoris 07/08/2018 Overview (11/21/2023): history of NSTEMI status post AMIE to LAD (culprit) and RCA, 04/28/2018 Assessment & Plan (01/24/2024 4:40 PM EDT): Cardiac rehab at [facility] 2x week Assessment & [...] as of this encounter (statuses as of 02/21/2024) Resolved Problems Problem Noted Date Diagnosed Date Resolved Date Purulent endophthalmitis of right eye 01/03/2023 11/08/2023 Other pulmonary embolism wit h acute cor pulmonale 10/01/2022 04/26/2023 Overview (04/26/2023): history Medical home patient encounter 09/13/2022 11/08/2023 Atherosclerosis of coronary artery of blackfeet heart without angina pectoris 09/10/2022 10/31/2022 Hypothyroidism [...] filter 02/28/2015 Atherosclerotic heart diseas e of blackfeet coronary artery with angina pectoris 11/2018 CKD (chronic kidney disease) stage 2, GFR 60-89 ml/min 03/12/2019 documented as of this encounter (statuses as of 02/21/2024) Immunizations Name Administration Dates Next Due COVID-19 [...] 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 Not on file Not on file documented as of this encounter Last Filed Vital Signs Vital Sign Reading Time Taken Comments Blood Pressure 138/88 02/21/2024 10:42 AM EST Pulse - - Temperature 35.7 °C (96.2 °F) 02/21/2024 10:[address] Respiratory Rate - - Oxygen Saturation - - Inhaled Oxygen Concentration - - Weight - - Height - - Body Mass Index - - documented in this encounter Nursing Notes * Naya Brown LPN - 02/21/2024 10:42 AM EST Chief Complaint Patient presents with Medication Administration prolia Patient denies being on any antibiotics, no current infections, no upcoming surgeries or dental procedures, no open wounds or sores, no current fractures. documented in this encounter Plan of Treatment Upcoming Encounters Date Type Department Care Team (Late st Contact Info) Description 02/24/2024 1:00 PM EST Office Visit [facility]rology [facility] [address] [place] [address] Alfonso Manning MD [address] [place] [address] 02/25/2024 2:30 PM EST Office Visit Hematology/Oncology [facility] [address] [place], [place] [phone] Arianna Szymanski MD [address] [facility] [place], [place] [address] 03/18/2024 2:15 PM EST Office Visit Ophthalmology, [facility] [address] [facility] [address] Pedro Tinsley DO [address] [place] [address] 03/19/2024 4:00 PM EST [facility], [facility] [address] [place] [address] Olinda Briggs RN [address] [place] [address] 04/30/2024 11:00 AM EST [facility] Visit [facility], [facility] [address] [place] [address] Leon Live PA-C [address] [place] [address] 05/22/2024 3:45 PM EST Office Visit Dermatology [facility] [address] [facility] [place], [place] [address] Guy Trivedi MD [address] [place] [address] 06/16/2024 10:00 AM EDT Office Visit Neurology [address] [place] [phone] Glory Keith MD [address] [facility] [place] [address] 06/25/2024 9:00 AM EDT Office Visit Family Medicine [address] [place] [phone] Rafa Bergman MD [address] [place] [address] [place] [address] 07/21/2024 10:00 AM EDT Imaging Radiology, [address] [place] [address] 09/04/2024 1:00 PM EDT Office Visit Rheumatology [address] [place] [phone] Deangelo Holley MD [address] [place] [address] [place] [address] Health Maintenance Due Date Last Done Comments Adult Wellness Visit 02/06/2018 02/06/2017 Depression Screening 07/17/2022 07/17/2021 COVID-19 Vaccine ( season) 2023 02/05/2022, 08/02/2021, 02/28/2021, Additional history exists Influenza Vaccine (FLU shot) (#1) 2023 04/19/2023, 01/30/2022, 12/28/2020, Additional history exists Albumin/Creatinine Ratio 02/13/2024 023, 03/21/2022, 04/19/2021, Additional history exists HbA1c 04/26/2024 04/26/2023, 03/02, 04/19/2021, Additional history exists CKD PHOS USE SMARTSET 41019 06/26/202405/31, 04/19/2021, 11/27/2019, Additional history exists DXA Scan 07/18/2024 07/18/2022, 06/30, 12/22/2019, Additional history exists GFR 08/16/2024 02/17/2024, 08/0 08/2023, 06/27/2023, Additional history exists TSH 11/14/2024 11/15/2023, 05/2023, 08/21/2023, Additional history exists CKD HGB USE SMARTSET 64025 02/16/202502/16, 02/17/2024, 06/27/2023, Additional history exists DTap/Tdap Vaccines (3 - Td or Tdap) 09/30/2033 10/01/2023, 11/03/2007 Hepatitis B Vaccine Completed 03/18/2009, 06/14/2008, 05/12/2008 Pneumococcal Vaccine: 65+ Years Completed 03/28/2015, 03/20/2010, 11/15/2004 RETIRED - COLONOSCOPY-EVERY 5 YRS AGES 18-100 Discontinued 02/27/2017, 02/27/2017, 10/17/2004 Zoster Vaccines Completed 06/12/2021, 02/01, 11/04/2012 VITAMIN D LEVEL ONCE IN A LIFETIME-USE SMARTSET# [id number] Completed 06/27/2023, 11/06/2021, 12/28/2019, Additional history exists HPV (Gardasil) Vaccine Aged Out No lo nger eligible based on patient's age to complete this topic MENINGOCOCCAL (MENACTRA/MENVEO) Aged Out No longer eligible based on patient's age to complete this topic documented as of this encounter Medical Devices Implanted Type Area Rn Bone Marrow Transplant Device Identifier Shelf Expiration Date Model / Serial / Lot Lens Intraoc 21.5 - [id number] - [id number] Implanted:Qty: 1 on 05/12/2019 by Yury Brady MD at OR [facility] Right: Eye [employer] 12/30/2023 [id number] / [id number] / [id number] Lens Intraoc 22.5 - [id number] - [id number] Implanted:Qty: 1 on 04/05/2020 by Yury Brady MD at OR [facility] Left: Eye [employer]OM[employer] 09/28/2024 [id number] / [id number] / [id number] documented as of this encounter Visit Diagnoses Diagnosis Hypertensive kidney disease with stage 3a chronic kidney disease- Primary Atherosclerosis of blackfeet coronary artery of blackfeet heart without angina pectoris Dyslipidemia, goal LDL below 70 Other and unspecified hyperlipidemia History of pulmonary embolism Personal history of pulmonary embolism Tachy-chintan syndrome (HCC) Sinoatrial node dysfunction S/P placement of cardiac pacemaker Cardiac pacemaker in situ Arthralgia of right hip Gastro-esophageal reflux disease with esophagitis, without bleeding Sinus tachycardia Other specified cardiac dysrhythmias Coronary artery disease involving blackfeet coronary artery of blackfeet heart without angina pectoris Presence of cardiac pacemaker Cardiac pacemaker in situ Palpitations HTN, goal below 140/90 Unspecified essential hypertension Hypertensive kidney disease with stage 3a chronic kidney disease- Primary Dyslipidemia, goal LDL below 70 Other and unspecified hyperlipidemia Gastro-esophageal reflux disease with esophagitis, without bleeding Atherosclerosis of blackfeet coronary artery of blackfeet heart without angina pectoris Senile osteoporosis- Primary documented in this encounter Administered Medications Inactive Administered Medications - up to 3 most recent administrations Medication Order MAR Action Action Date Dose Rate Site Denosumab (Prolia) subcut inj 60 mg 60 mg, Subcutaneous, [id number], First dose on Karime 02/13/24 at 1530, Last dose on Karime 02/13/24 at 1530, For 1 doseIndications:Senile osteoporosis Given 02/21/2024 10:48 AM EST 60 mg Arm Left Upper documented in this encounter Advance Directives Documents on File Type Date Recorded Patient Zinc Chloride Operator Expl anation Advance Directives and Living [...] Agen t (per Health Care Power of Barrel Roller document) Guille Urban Adult Child Health Care Agen t (per Health Care Power of Barrel Roller document) Care Teams Distribution Center Manager Relationship Specialty Start Date End Date Rafa Bergman MD [address] [place] [address] [place] [phone] PCP - General Family Medicine 04/19/21 documented as of this encounter
--- OUTSIDE RECORDS SUMMARY | 2024-07-24 00:18 | External Medical Summary ---
Author Name Unknown Address Unknown Organization [id number]:[facility] - [address] [place] [address] Laboratory Report Ordering Provider Test Date Status NEL YE 02/17/2024 11:19:06 Final Observation Date Value Abnormality Reference (Units ) Status SYNC LEUKOCYTES IN BLOOD BY AUTOMATED COUNT 02/17/2024 11:19:06 10.44 4.00-10.80 (K/uL) Final Segs 02/17/2024 11:19:06 59.4 40.0-75.0 (%) Final Lymphs % 02/17/2024 11:19:06 23.7 18.0-42.0 (%) Final Monos 02/17/2024 11:19:06 12.8 Above high normal 1.0-11.0 (%) Final Eosinophils 02/17/2024 11:19:06 2.4 0.0-6.0 (%) Final Basos 02/17/2024 11:19:06 1.1 0.0-2.0 (%) Final Immature Granulocyte, Percent 02/17/2024 11:19:06 0.6 0.0-2.0 (%) Final Absolute Segs 02/17/2024 11:19:06 6.21 1.80-7.70 (K/uL) Final Lymphs, absolute 02/17/2024 11:19:06 2.47 1.00-4.80 (K/ul) Final Monos, Abs 02/17/2024 11:19:06 1.34 Above high normal 0.00-1.10 (K/uL) Final Eos, Abs 02/17/2024 11:19:06 0.25 0.00-0.70 (K/uL) Final Basos, Abs 02/17/2024 11:19:06 0.11 0.00-0.20 (K/uL) Final Immature Granulocytes, Number 02/17/2024 11:19:06 0.06 0.00-0.20 (K/uL) Final Performing Location [facility] - [address] [facility] [address]
--- OUTSIDE RECORDS SUMMARY | 2024-07-24 00:18 | External Medical Summary ---
Author Name Unknown Address Unknown Organization [id number]:[facility] [place] [address] [facility] [address] Laboratory Report Ordering Provider Test Date Status DEEPTHI LAROSE 02/17/2024 11:19:06 Final Observation Date Value Abnormality Reference (Units ) Status Color of Urine by Auto 02/17/2024 11:19:06 Yellow Colorless, Light Yellow, Yellow, Dark Yellow Final Clarity, Urine 02/17/2024 11:19:06 Slightly Cloudy Abnormal Clear Final Glucose [Mass/volume] in Urine by Automated test strip 02/17/2024 11:19:06 Negative Negative (mg/dL) Final Bilirubin.total [Presence] in Urine by Automated test strip 02/17/2024 11:19:06 Negative Negative Final Ketones [Mass/volume] in Urine by Automated test strip 02/17/2024 11:19:06 Negative Negative (mg/dL) Final Specific gravity, Urine 02/17/2024 11:19:06 1.028 1.003-1.030 Final Hemoglobin [Presence] in Urine by Automated test strip 02/17/2024 11:19:06 Negative Negative Final pH, Urine 02/17/2024 11:19:06 6.0 5.0-7.5 (Units) Final Protein [Mass/volume] in Urine by Automated test strip 02/17/2024 11:19:06 Trace Abnormal Negative (mg/dL) Final Urobilinogen [Mass/volume] in Urine by Automated test strip 02/17/2024 11:19:06 Normal Normal (mg/dL) Final Nitrite [Presence] in Urine by Automated test strip 02/17/2024 11:19:06 Negative Negative Final Leukocyte esterase [Presence] in Urine by Automated test strip 02/17/2024 11:19:06 Negative Negative Final RBC, Urine 02/17/2024 11:19:06 0-2 0-2 (/HPF) Final WBC, Urine 02/17/2024 11:19:06 3-5 Abnormal 0-2 (/HPF) Final Bacteria [#/area] in Urine sediment by Microscopy high power field 02/17/2024 11:19:06 26-50 Abnormal 0-25 (/HPF) Final Performing Location [facility] [place] [facility] [address]. [facility] [id number]
--- OUTSIDE RECORDS SUMMARY | 2024-07-24 00:18 | External Medical Summary | Summary of Care ---
Author Name Unknown Organization [facility] Address [address] [place] [address] Phone [phone] Care Team Providers Care Sports Activities Foul Judge Name Role Phone Rafa Bergman MD Primary Care Provide r Reason for Visit * Reason Comments Acute Encounter Details Date Type Department Care Team (Late st Contact Info) Description 02/14/2024 2:40 PM EST Office Visit Family Medicine [address] [place] [phone] Nicol Ferguson MD [address] [place] [address] [place] [phone] Migraine variant*; Hypertensive kidney disease with stage 3a chronic kidney disease; History of DVT (deep vein thrombosis); S/P placement of cardiac pacemaker; Tachy-chintan syndrome (HCC) Allergies Active Allergy Reactions Criticality Noted Date Comments Colchicine Diarrhea 06/16/2018 Daptomycin 01/05/2015 Shortness of breath Imipenem Edema airway High 01/05/2015 Metoprolol Low 01/23/2021 Other reaction(s): fatigue Zoledronic Acid 04/24/2012 Myalgias, fever, chills, vomiting x 2 days Sulfa Antibiotics 12/22/2002 Bactrim--itchy all over, eyes swollen documented as of this encounter (statuses as of 02/14/2024) Medications ASPIRIN 81 MG PO TABS Take [...] as needed for Constipation. 3 Active Nystatin 272030 UNIT/GM External Powder (Nystop)Indicatio ns:Rash and nonspecific [...] goal LDL below 70,Coronary artery disease involving mi'kmaq coronary artery of mi'kmaq heart without angina pectoris TAKE ONE TABLET BY MOUTH IN THE MORNING 90 Tablet 3 4 Active Propranolol HCl 10 MG Oral Tablet (Inderal)Indicati ons:Sinus tachycardia,Tachy -chintan syndrome (HCC),Coronary artery disease involving mi'kmaq coronary artery of mi'kmaq heart without angina pectoris,Presence of cardiac pacemaker,Palpita [...] at bedtime. 30 Tablet 1 4 Active Hospital, Clinic, or Other Facility [...] inj 60 mgIndications:Senile osteoporosis 60 mg SC [id number] 02/13/2024 08/11/2024 Active documented as of this encounter (statuses as of 02/14/2024) Active Problems Problem Noted Date Diagnosed Date Nevus of 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 History of NE (myocardial infarction) 11/27/2022 History of pulmonary embolism [...] S/P angioplasty with stent 11/27/2018 Atherosclerosis of mi'kmaq co ronary artery of mi'kmaq heart without angina pectoris 07/08/2018 Overview (11/21/2023): history of NSTEMI status post AMIE to LAD (culprit) and RCA, 04/28/2018 Assessment & Plan (01/24/2024 4:40 PM EDT): Cardiac rehab at [facility] 2x week Assessment & Plan (11/21/2023 5:32 [...] as of this encounter (statuses as of 02/14/2024) Resolved Problems Problem Noted Date Diagnosed Date Resolved Date Purulent endophthalmitis of right eye 01/03/2023 11/08/2023 Other pulmonary embolism wit h acute cor pulmonale 10/01/2022 04/26/2023 Overview (04/26/2023): history Medical home patient encounter 09/13/2022 11/08/2023 Atherosclerosis of coronary artery of mi'kmaq heart without angina pectoris 09/10/2022 10/31/2022 Hypothyroidism [...] filter 02/28/2015 Atherosclerotic heart diseas e of mi'kmaq coronary artery with angina pectoris 11/2018 CKD (chronic kidney disease) stage 2, GFR 60-89 ml/min 03/12/2019 documented as of this encounter (statuses as of 02/14/2024) Immunizations Name Administration Dates Next Due COVID-19 [...] 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 Chief Complaint Patient presents with Acute HPI: Brief Clinical History Ms. Moran is a 79 year old female last seen in [facility] on 02/06/2024 by Olinda Fuller She has a h/o the following chronic conditions indicated on the problem list: Chronic Conditions None Patient of Dr. Bergman here for an acute visit for longstanding headaches. Has been having headaches for many years. States she gets them every month or so and has always been treated with antibiotics for a sinus infection and they usually go away. States every time she comes to the doctor for a headache, she gets diagnosed with a sinus infection. Had one recently and wasstarted on an antibiotic by [facility] at Home (Clindamycin) and it didn't work so she got changed to another antibiotic (Levaquin) and she got better. Went out of town while she was being treated andthen had another severe headache when she got back. Tried some sinus medications and did not help. She then tried Excedrin because she did not want to get another antibiotic and it took the headache a way. These headaches are usually triggered by allergies or weather changes. The headaches are like a band across her forehead and around around her eyes. Has a lot of pressure behind the eyes and forehead and in her sinuses. She also gets drainage down the back of her throat. She states she has hadheadaches for so many years and was also diagnosed with sinus infections. In September, she had a CT of her sinuses done and it was normal without sinusitis. The Excedrin has been helping but worried thatit might interfere with her Eliquis or heart medications. Since she started it, has been needing itabout twice a week and it works very well for the headaches. She is now wondering if these headaches could be migraines. She has some mild photophobia and phonophobia with the headaches. Sometimes gets nauseated but does not vomit. Both of her children have severe migraines and one is on a shot forthem. She is wondering if there is anything safe she can take with her medications to prevent them and what she can take for a headache. She does not have a headache right now because it resolved with the Excedrin. Is on Eliquis. Is on low dose propranolol but does not like taking it and cannot tolerate higher doses. CBC Results: Results for orders placed or performed in visit on 06/27/23 CBC Result Value Ref Range WBC 7.51 4.00 - 10.80 K/uL RBC 4.40 3.85 - 5.15 M/uL HGB 13.5 12.0 - 15.3 g/dL HCT 43.3 36.0 - 45.2 % MCV 98.4 81.5 - 97.5 fL MCH 30.7 27.0 - 34.0 pg MCHC 31.2 32.0 - 36.0 g/dL RDW 18.7 11.5 - 15.5 % PLT 304 140 - 400 K/uL MPV 12.1 6.6 - 11.1 fL nRBCs 0 <=0 /100 WBCs Basic Panel Results: Results for orders placed or performed in visit on 11/05/23 BASIC METABOLIC PANEL Result Value Ref Range BUN 30 (H) 6 - 20 mg/dL CREATININE 1.1 (H) 0.5 - 1.0 mg/dL EGFR 53 (L) >=60 mL/min SODIUM 144 135 - 146 mmol/L POTASSIUM 4.4 3.5 - 5.1 mmol/L CHLORIDE 106 98 - 107 mmol/L CO2 25 22 - 32 mmol/L ANION GAP 13 7 - 15 mmol/L GLUCOSE 105 70 - 120 mg/dL CALCIUM 9.5 8.4 - 10.2 mg/dL Results for orders placed or performed in visit on 12/11/23 URIC ACID Result Value Ref Range Uric Acid 3.1 2.4 - 5.7 mg/dL *Note: Due to a large number of results and/or encounters for the requested time period, some results have not been displayed. A complete set of results can be found in Results Review. PHM: Patient Active Problem List Diagnosis Senile osteoporosis HTN, goal below 140/90 Hypothyroidism (acquired) Dyslipidemia, goal LDL below 70 Retinal vein occlusion of right eye Vitamin B12 deficiency History of DVT (deep vein thrombosis) H/O nonmelanoma skin cancer Rhinitis, nonallergic Deviated nasal septum Arthritis of left ankle Atherosclerosis of mi'kmaq coronary artery of mi'kmaq heart without angina pectoris S/P angioplasty with stent Hypertensive kidney disease with stage 3a chronic kidney disease History of basal cell carcinoma Chronic kidney disease, stage 3a (HCC) Prediabetes Gastro-esophageal reflux disease with esophagitis, without bleeding Tachy-chintan syndrome (HCC) S/P placement of cardiac pacemaker History of NE (myocardial infarction) History of pulmonary embolism Nevus [...] mouth daily as needed for Constipation. Nystatin 996640 UNIT/GM External Powder (Nystop) Apply topically to affected area 2 times a day. Apply to the affected area 60 g 0 Nitroglycerin 0.4 MG Sublingual [...] daily as needed (swelling). 90 Tablet 1 Famotidine 20 MG Oral Tablet (Pepcid) Take 1 Tablet by mouth at bedtime. 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) Benign neoplasm of skin Benign paroxysmal vertigo 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 10/28/2013 Chronic sinusitis 10/28/2013 CKD (chronic kidney disease) stage 2, GFR 60-89 ml/min Degenerative disc disease, cervical 05/18/2016 Derangement of meniscus right knee Diverticulitis of colon DVT (deep venous thrombosis) ([facility]) 02/28/2015 Dyslipidemia, goal LDL below 100 09/15/2013 [...] rt shoulder NSTEMI (non-ST elevated myocardial infarction) ([facility]) 04/28/2018 [facility], cathed and LAD stented with AMIE, RCA [...] small pericardial effusion [facility] Pericarditis as complication of acute myocardial infarction ([facility]) 05/15/2018 [facility] colchicine not tolerated well. Pericarditis as complication of acute myocardial infarction ([facility]) 06/05/2018 [facility] steroids Postmenopausal atrophic vaginitis 09/15/2013 Presence of vena cava filter PROLAPSE OF VAGINAL WALL 10/28/2000 Pulmonary embolism and infarction ([facility]) 08/30/2009 Pulmonary embolus ([facility]) 1999 Purulent endophthalmitis of right eye 01/03/2023 [...] TOTAL 11/11/2014 left knee- [facility]- Dr. Lopez CARDIAC CATH-CARDIOLOGY ONLY 04/28/2018 AMIE [...] VENA CAVA 10/2014 [facility] MISCELLANEOUS ORDER ([facility] ONLY) 12/02/2013-12/02/2014 LUCENTIS 0.5MG CONSENT SIGNED OD; DR TINSLEY MISCELLANEOUS ORDER ([facility] ONLY) Right 01/12/2015-01/13/2016 LUCENTIS 0.5MG CONSENT OD SIGNED; DR LAUREANO ADAN ORDER ([facility] ONLY) Right 10/21/2015-10/20/2016 EYLEA OD CONSENT SIGNED, Dr. Laureano MATHEWSCELLANEOUS ORDER ([facility] ONLY) Right 11/30/2016-11/30/2017 Eylea OD consnet signed, Dr.Cessna ADAN ORDER ([facility] ONLY) Right 01/30/18-01/30/19 EYLEA OD CONSENT SIGNED, Dr. 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: [employer] Tobacco Use Smoking status: Never Smokeless tobacco: Never Tobacco comments: second hand smoke exposure - 10 years Vaping Use Vaping status: Never Used Substance and Sexual Activity Alcohol use: No Drug use: No Sexual activity: Not Currently Partners: Male control/protection: Surgical Comment: hysterectomy Other Topics Concern Service No Blood Transfusions Yes Comment: 10/2014 at [facility] Caffeine Concern No Occupational Exposure No Hobby [...] Stability Do you currently live in a care home or have no steady place to sleep [...] - for ages0-17 years): Not on file Review of patient's allergies indicates: Allergen Reactions Imipenem Edema airway Colchicine Diarrhea Daptomycin Shortness of breath Reclast [Zoledronic Acid] Myalgias, fever, chills, vomiting x 2 days Sulfa Antibiotics Bactrim--itchy all over, eyes swollen Metoprolol Other reaction(s): fatigue Objective: BP 106/62 | Pulse 79 | Temp 36.4 °C (97.5 °F) (Tympanic) Physical Exam: General: alert, healthy, no distress, well nourished, and well developed Head: Normocephalic, No masses, lesions, tenderness or abnormalities Eye Exam: PERRLA, extraocular movements intact, conjunctiva are pink and non- injected, sclera clear Ears: External ears normal, Canals clear, TM's Normal Nose: no mucosal erythema, no mucosal edema, no purulent discharge, no sinus tenderness Oropharynx: no exudate, no erythema, lips, buccal mucosa, and tongue normal, and mucous membranes are moist Neck: supple, no adenopathy, no bruits Heart: regular rate & rhythm, no gallops, and soft murmur Lungs: chest symmetric with normal AP diameter, no chest deformities noted, no chest wall tenderness, lungs clear to auscultation Extremities: no clubbing, no cyanosis, +nonpitting ankle edema bilaterally Neuro Exam: alert & oriented x 3 with fluent speech, no focal motor/sensory deficits, gait normal Extensive ROS Constitutional (f/c/wt/vision/hearing): see above hpi Resp (cough/sob/robledo): Negative CV (cp/palp/fluttering/diaphoresis/robledo/pnd):see above hpi GI (n/v/d/hrtburn): stable Endo (hair/cold or heat intol/ 3 p's): Negative Neuro (shaking/weak/fatigu/parasthesi/): see above hpi Skin (rash/easy bruis/xerosis): Negative Psy (si/hi/halluc/): Negative (nocturia/hesit/drib/sexual review): Negative Lymph (swollen glands/b sx's/: Negative ASSESSMENT: Migraine variant (Primary) - Topiramate 25 MG Oral Tablet (Topamax); Take 1 Tablet by mouth every night at bedtime. Hypertensive kidney disease with stage 3a chronic kidney disease History of DVT (deep vein thrombosis) S/P placement of cardiac pacemaker Tachy-chintan syndrome (HCC) PLAN: Continue present medication(s): Begin medication(s): Topamax 25 at bedtime and can titrate by 25 mg a week to 100 mg if needed. Sent 30 days to [facility] and then can send to mail order if she tolerates it and is helpful. Patient education: Discussed migraines and Topamax with patient. Long history of severe headaches that have usually been treated as sinus infections. Her most recent headache recurred right after treatment and resolved completely with Excedrin Both children have migraines. CT of sinuses in September 2023 negative for sinusitis. Suspect she could have a variant of migrain. Start Topamax and titrate to 100 mg if needed. Feel occasional use of Excedrin likely safe with medications and would be safer than triptan. Discussed neurology referral but declines at this time. Did not order MRI at this time since these headaches have been going on for 20 years or more. Follow-up with PCP as scheduled or sooner if needed. Consider neurology if needed. Follow up: As scheduled with PCP. Nicol Ferguson MD documented in this encounter Nursing Notes * Jessi Fonseca LPN - 02/14/2024 2:31 PM EST Horrible headaches Treated for sinus infection previously Has [facility] at home- they think she has migraines Started taking generic Excedrin that seems to help Should she be taking this with her other medications? She needs to know what to do about the headaches Or if it still coming from her sinus infection States she has had them for years & always treated with antibiotic documented in this encounter Plan of Treatment Upcoming Encounters Date Type Department Care Team (Late st Contact Info) Description 02/17/2024 11:10 AM EST Laboratory Laboratory [address] [place] [phone] [place] [address] 02/21/2024 10:30 AM EST Nurse Only Rheumatology [address] [place] [phone] [place], Nurse Rheum [address] [place] [phone] 02/25/2024 2:30 PM EST Office Visit Hematology/Oncology [facility] [address] [place] [phone] Arianna Szymanski MD [address] [place] [address] 03/18/2024 2:15 PM EST Office Visit Ophthalmology, [facility] [address] [place] [address] Pedro Tinsley DO [address] [place] [address] 03/19/2024 4:00 PM EST Home Visit [facility], [facility] [address] [place] [address] Olinda Briggs RN [address] [place] [address] 03/30/2024 11:00 AM EST Home Visit [facility], [facility] [address] [place] [address] Leon Live PA-C [address] [place] [address] 05/22/2024 3:45 PM EST Office Visit Dermatology [facility] [address] [place] [address] Guy Trivedi MD [address] [place] [address] 06/25/2024 9:00 AM EDT Office Visit Family Medicine [address] [place] [phone] Rafa Bergman MD [address] [place] [address] [place] [address] 07/21/2024 10:00 AM EDT Imaging Radiology, [place] [id number] [place] [address] 09/04/2024 1:00 PM EDT Office Visit Rheumatology [address] [place] [phone] Deangelo Holley MD [facility] [place] [employer] [place] [address] Health Maintenance Due Date Last Done Comments Adult Wellness Visit 02/06/2018 02/06/2017 Depression Screening 07/17/2022 07/17/2021 COVID-19 Vaccine ( season) 2023 02/05/2022, 08/02/2021, 02/28/2021, Additional history exists Influenza Vaccine (FLU shot) (#1) 2023 04/19/2023, 01/30/2022, 12/28/2020, Additional history exists *BISPHONATE OR OTHER ACCEPTABLE MEDICATION NEEDED FOR OSTEOPOROSIS (REFER TO SMARTSET #1146) 01/05/2024 Albumin/Creatinine Ratio 02/13/2024 023, 03/21/2022, 04/19/2021, Additional history exists HbA1c 04/26/2024 04/26/2023, 03/02, 04/19/2021, Additional history exists GFR 05/07/2024 11/05/2023, 05/31, 06/14/2023, Additional history exists CKD HGB USE SMARTSET 66147 06/26/202406/26, 06/27/2023, 04/26/2023, Additional history exists CKD PHOS USE SMARTSET 55449 06/26/2024/10/2023, 04/19/2021, 11/27/2019, Additional history exists DXA Scan 07/18/2024 07/18/2022, 06/30, 12/22/2019, Additional history exists TSH 11/14/2024 11/15/2023, 0705/2023, 08/21/2023, Additional history exists DTap/Tdap Vaccines (3 - Td or Tdap) 09/30/2033 10/01/2023, 11/03/2007 Hepatitis B Vaccine Completed 03/18/2009, 06/14/2008, 05/12/2008 Pneumococcal Vaccine: 65+ Years Completed 03/28/2015, 03/20/2010, 11/15/2004 RETIRED - COLONOSCOPY-EVERY 5 YRS AGES 18-100 Discontinued 02/27/2017, 02/27/2017, 10/17/2004 Zoster Vaccines Completed 06/12/2021, 02/01, 11/04/2012 VITAMIN D LEVEL ONCE IN A LIFETIME-USE SMARTSET# [id number] Completed 06/27/2023, 11/06/2021, 12/28/2019, Additional history exists HPV (Gardasil) Vaccine Aged Out No lo nger eligible based on patient's age to complete this topic MENINGOCOCCAL (MENACTRA/MENVEO) Aged Out No longer eligible based on patient's age to complete this topic documented as of this encounter Medical Devices Implanted Type Area Environmental Health Manager Device Identifier Shelf Expiration Date Model / Serial / Lot Lens Intraoc 21.5 - [id number] - [id number] Implanted:Qty: 1 on 05/12/2019 by Yury Brady MD at OR [facility] Right: Eye [employer] 12/30/2023 [id number] / [id number] / [id number] Lens Intraoc 22.5 - [id number] - [id number] Implanted:Qty: 1 on 04/05/2020 by Yury Brady MD at OR [facility] Left: Eye [employer] 09/28/2024 [id number] / [id number] / [id number] documented as of this encounter Visit Diagnoses Diagnosis Hypertensive kidney disease with stage 3a chronic kidney disease- Primary Atherosclerosis of mi'kmaq coronary artery of mi'kmaq heart without angina pectoris Dyslipidemia, goal LDL below 70 Other and unspecified hyperlipidemia History of pulmonary embolism Personal history of pulmonary embolism Tachy-chintan syndrome (HCC) Sinoatrial node dysfunction S/P placement of cardiac pacemaker Cardiac pacemaker in situ Arthralgia of right hip Gastro-esophageal reflux disease with esophagitis, without bleeding Sinus tachycardia Other specified cardiac dysrhythmias Coronary artery disease involving mi'kmaq coronary artery of mi'kmaq heart without angina pectoris Presence of cardiac pacemaker Cardiac pacemaker in situ Palpitations HTN, goal below 140/90 Unspecified essential hypertension Hypertensive kidney disease with stage 3a chronic kidney disease- Primary Dyslipidemia, goal LDL below 70 Other and unspecified hyperlipidemia Gastro-esophageal reflux disease with esophagitis, without bleeding Atherosclerosis of mi'kmaq coronary artery of mi'kmaq heart without angina pectoris Migraine variant- Primary Variants of migraine, not elsewhere classified, without mention of intractable migraine without mention of status migrainosus Hypertensive kidney disease with stage 3a chronic kidney disease History of DVT (deep vein thrombosis) Personal history of venous thrombosis and embolism S/P placement of cardiac pacemaker Cardiac pacemaker in situ Tachy-chintan syndrome (HCC) Sinoatrial node dysfunction documented in this encounter Advance Directives Documents on File Type Date Recorded Patient 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
--- OUTSIDE RECORDS SUMMARY | 2024-07-24 00:18 | External Medical Summary | Summary of Care ---
Author Name Unknown Organization [facility] Address [address] [facility] [place] [address] Phone [phone] Care Team Providers Care Client Executive Name Role Phone Rafa Bergman MD Primary Care Provide r Encounter Details Date Type Department Care Team (Late st Contact Info) Description 02/06/2024 Population Health External Data Unspecified Department Allergies Active Allergy Reactions Criticality Noted Date Comments Colchicine Diarrhea 06/16/2018 Daptomycin 01/05/2015 Shortness of breath Imipenem Edema airway High 01/05/2015 Metoprolol Low 01/23/2021 Other reaction(s): fatigue Zoledronic Acid 04/24/2012 Myalgias, fever, chills, vomiting x 2 days Sulfa Antibiotics 12/22/2002 Bactrim--itchy all over, eyes swollen documented as of this encounter (statuses as of 02/13/2024) Medications ASPIRIN 81 MG PO TABS Take [...] as needed for Constipation. 3 Active Nystatin 876236 UNIT/GM External Powder (Nystop)Indicatio ns:Rash and nonspecific [...] goal LDL below 70,Coronary artery disease involving mechoopda coronary artery of mechoopda heart without angina pectoris TAKE ONE TABLET BY MOUTH IN THE MORNING 90 Tablet 3 4 Active Propranolol HCl 10 MG Oral Tablet (Inderal)Indicati ons:Sinus tachycardia,Tachy -chintan syndrome (HCC),Coronary artery disease involving mechoopda coronary artery of mechoopda heart without angina pectoris,Presence of cardiac pacemaker,Palpita [...] daily as needed (swelling). 90 Tablet 1 4 Active Famotidine 20 MG Oral Tablet (Pepcid) Take 1 Tablet by mouth at bedtime. 90 Tablet 3 4 Active Hospital, Clinic, or Other Facility [...] as of this encounter (statuses as of 02/13/2024) Active Problems Problem Noted Date Diagnosed Date Nevus of 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 History of MO (myocardial infarction) 11/27/2022 History of pulmonary embolism [...] S/P angioplasty with stent 11/27/2018 Atherosclerosis of mechoopda co ronary artery of mechoopda heart without angina pectoris 07/08/2018 Overview (11/21/2023): [...] as of this encounter (statuses as of 02/13/2024) Resolved Problems Problem Noted Date Diagnosed Date Resolved Date Purulent endophthalmitis of right eye 01/03/2023 11/08/2023 Other pulmonary embolism wit h acute cor pulmonale 10/01/2022 04/26/2023 Overview (04/26/2023): history Medical home patient encounter 09/13/2022 11/08/2023 Atherosclerosis of coronary artery of mechoopda heart without angina pectoris 09/10/2022 10/31/2022 Hypothyroidism [...] filter 02/28/2015 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 11/2018 CKD (chronic kidney disease) stage 2, GFR 60-89 ml/min 03/12/2019 documented as of this encounter (statuses as of 02/13/2024) Immunizations Name Administration Dates Next Due COVID-19 [...] 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 Not on file 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 Not on file Not on file documented as of this encounter Plan of Treatment Upcoming Encounters Date Type Department Care Team (Late st Contact Info) Description 02/14/2024 3:00 PM EST Office Visit Family Medicine [address] [phone] Nicol Ferguson MD [address] [place] [address] [place] [address] 02/17/2024 11:10 AM EST Laboratory Laboratory [address] [place] [phone] [place], Lab [address] [place] [address] 02/21/2024 10:30 AM EST Nurse Only Rheumatology [address] [place] [phone] [place], Nurse Rheum [address] [place] [phone] 02/25/2024 2:30 PM EST Office Visit Hematology/Oncology [facility] [address] [place] [phone] Arianna Szymanski MD [address] [place] [address] 03/18/2024 2:15 PM EST Office Visit Ophthalmology, [facility] [address] [place] [address] Pedro Tinsley DO [address] [place] [address] 03/19/2024 4:00 PM EST [facility] Visit [facility] [address] [place] [address] Olinda Briggs, CHRISTINA [address] [place] [address] 03/30/2024 11:00 AM EST [facility] Visit [facility], [facility] [address] [place] [address] Leon Live PA-C [address] [place] [address] 05/22/2024 3:45 PM EST Office Visit Dermatology [facility] [address] [facility] [place] [address] Guy Trivedi MD [address] [facility] [place] [address] 06/25/2024 9:00 AM EDT Office Visit Family Medicine [address] [place] [phone] Rafa Bergman MD [address] [place] [address] [place] [address] 07/21/2024 10:00 AM EDT Imaging Radiology, [place] [address] [employer] [place] [address] 09/04/2024 1:00 PM EDT Office Visit Rheumatology [address] [place] [phone] Deangelo Holley MD [facility] [place] [address] Health Maintenance Due Date Last Done Comments [...] Additional history exists CKD HGB USE SMARTSET 16425 06/26/202406/26, 06/27/2023, 04/26/2023, Additional history exists CKD PHOS USE SMARTSET 96532 06/26/202405/31, 04/19/2021, 11/27/2019, Additional history exists DXA Scan 07/18/2024 07/18/2022, 06/30, 12/22/2019, Additional history exists TSH 11/14/2024 11/15/2023, 05/2023, 08/21/2023, Additional history exists DTap/Tdap Vaccines (3 - Td or Tdap) 09/30/2033 10/01/2023, 11/03/2007 Hepatitis B Vaccine Completed 03/18/2009, 06/14/2008, 05/12/2008 Pneumococcal Vaccine: 65+ Years Completed 03/28/2015, 03/20/2010, 11/15/2004 RETIRED - COLONOSCOPY-EVERY 5 YRS AGES 18-100 Discontinued 02/27/2017, 02/27/2017, 10/17/2004 Zoster Vaccines Completed 06/12/2021, 02/01, 11/04/2012 VITAMIN D LEVEL ONCE IN A LIFETIME-USE SMARTSET# [id number] Completed 06/27/2023, 11/06/2021, 12/28/2019, Additional history exists HPV (Gardasil) Vaccine Aged Out No lo nger eligible based on patient's age to complete this topic MENINGOCOCCAL (MENACTRA/MENVEO) Aged Out No longer eligible based on patient's age to complete this topic documented as of this encounter Medical Devices Implanted Type Area Licensed Physical Therapist Assistant Device Identifier Shelf Expiration Date Model / Serial / Lot Lens Intraoc 21.5 - [id number] - [id number] Implanted:Qty: 1 on 05/12/2019 by Yury Brady MD at OR [facility] Right: Eye [employer] 12/30/2023 [id number] / [id number] / [id number] Lens Intraoc 22.5 - [id number] - [id number] Implanted:Qty: 1 on 04/05/2020 by Yury Brady MD at OR [facility] Left: Eye [employer] 09/28/2024 [id number] / [id number] / [id number] documented as of this encounter Advance Directives Documents on File Type Date Recorded Patient Customer Pricing Manager Expl anation Advance Directives and Living [...] Agen t (per Health Care Power of Approver document) Guille Urban Adult Child Health Care Agen t (per Health Care Power of Approver document) Care Teams Client Executive Relationship Specialty Start Date End Date Rafa Bergman MD [address] [place] [address] [place] [phone] PCP - General Family Medicine 04/19/21 documented as of this encounter
--- OUTSIDE RECORDS SUMMARY | 2024-07-24 00:18 | External Medical Summary | Summary of Care ---
Author Name Unknown Organization [facility] Address [address] [facility] [place] [address] Phone [phone] Care Team Providers Care Tube Backer Name Role Phone Rafa Bergman MD Primary Care Provide r Reason for Visit * Reason Comments Outpatient Testing Encounter Details Date Type Department Care Team (Late st Contact Info) Description 02/17/2024 11:10 AM EST Laboratory Laboratory [address] [place] [phone] [place] [address] History of DVT (deep vein thrombosis); History [...] as needed for Constipation. 3 Active Nystatin 877856 UNIT/GM External Powder (Nystop)Indicatio ns:Rash and nonspecific [...] tachycardia,Tachy -chintan syndrome (HCC),Coronary artery disease involving nulato coronary artery of nulato heart without angina pectoris,Presence of cardiac pacemaker,Palpita [...] inj 60 mgIndications:Senile osteoporosis 60 mg SC [id number] 02/13/2024 08/11/2024 Active documented as of this encounter (statuses as of 02/17/2024) Active Problems Problem Noted Date Diagnosed Date Nevus of 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 History of MD (myocardial infarction) 11/27/2022 History of pulmonary embolism [...] (01/24/2024 4:40 PM EDT): Cardiac rehab at [facility] 2x week Assessment & Plan [...] 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 Not on file Not on file documented as of this encounter Plan of Treatment Upcoming Encounters Date Type Department Care Team (Late st Contact Info) Description 02/18/2024 10:30 AM EST Scheduled Telephone [facility], [address] [place] [address] [facility], Nurse [address] [place] [address] 02/19/2024 10:30 AM EST Scheduled Telephone [facility], [address] [place] [address] [facility] Nurse [address] [place] [address] 02/21/2024 10:30 AM EST Nurse Only Rheumatology [address] [place] [phone] [place], Nurse [address] [place] [phone] 02/25/2024 2:30 PM EST Office Visit Hematology/Oncology [facility] [address] [place] [address] Arianna Szymanski MD [address] [place] [address] 03/18/2024 2:15 PM EST Office Visit Ophthalmology, [facility] [address] [place] [address] Pedro Tinsley DO [address] [place] [address] 03/19/2024 4:00 PM EST Home Visit [facility], [facility] [address] [place] [address] Olinda Briggs RN [address] [place] [address] 03/30/2024 11:00 AM EST [facility] Visit [facility], [facility] [place] [address] Leon Live PA-C [address] [place] [address] 05/22/2024 3:45 PM EST Office Visit Dermatology [facility] [address] [place] [address] Guy Trivedi MD [address] [place] [address] 06/25/2024 9:00 AM EDT Office Visit Family Medicine [address] [phone] Rafa Bergman MD [address] [place] [address] [place] [address] 07/21/2024 10:00 AM EDT Imaging Radiology, [address] [place] [address] 09/04/2024 1:00 PM EDT Office Visit Rheumatology [address] [place] [phone] Deangelo Holley MD [facility] [place] [address] Pending Results Name Type Priority Associated Diagnoses [...] 11:19 AM EST URINALYSIS, REFLEX TO CULTURE (CUP ONLY) Lab Routine Flank pain Dysuria Urinary incontinence, nocturnal enuresis 02/17/2024 11:19 AM EST URINALYSIS, REFLEX TO CULTURE Lab Routine Flank pain Dysuria Urinary incontinence, nocturnal enuresis 02/17/2024 11:19 AM EST Health Maintenance Due [...] Additional history exists CKD HGB USE SMARTSET 91152 06/26/202406/26, 06/27/2023, 04/26/2023, Additional history exists CKD PHOS USE SMARTSET 07871 06/26/202405/31, 04/19/2021, 11/27/2019, Additional history exists DXA Scan 07/18/2024 07/18/2022, 06/30, 12/22/2019, Additional history exists TSH 11/14/2024 11/15/2023, 070 05/2023, 08/21/2023, Additional history exists DTap/Tdap Vaccines (3 - Td or Tdap) 09/30/2033 10/01/2023, 11/03/2007 Hepatitis B Vaccine Completed 03/18/2009, 06/14/2008, 05/12/2008 Pneumococcal Vaccine: 65+ Years Completed 03/28/2015, 03/20/2010, 11/15/2004 RETIRED - COLONOSCOPY-EVERY 5 YRS AGES 18-100 Discontinued 02/27/2017, 02/27/2017, 10/17/2004 Zoster Vaccines Completed 06/12/2021, 02/01, 11/04/2012 VITAMIN D LEVEL ONCE IN A LIFETIME-USE SMARTSET# 13890 Completed 06/27/2023, 11/06/2021, 12/28/2019, Additional history exists HPV (Gardasil) Vaccine Aged Out No lo nger eligible based on patient's age to complete this topic MENINGOCOCCAL (MENACTRA/MENVEO) Aged Out No longer eligible based on patient's age to complete this topic documented as of this encounter Medical Devices Implanted Type Area Mine Exploration Engineer Device Identifier Shelf Expiration Date Model / Serial / Lot Lens Intraoc 21.5 - [id number] - [id number] Implanted:Qty: 1 on 05/12/2019 by Yury Brady MD at OR [facility] Right: Eye [employer] 12/30/2023 [id number] / [id number] / [id number] Lens Intraoc 22.5 - [id number] - [id number] Implanted:Qty: 1 on 04/05/2020 by Yury Brady MD at OR [facility] Left: Eye [employer]OM[employer] 09/28/2024 [id number] / [id number] / [id number] documented as of this encounter Visit Diagnoses Diagnosis Hypertensive kidney disease with stage 3a chronic kidney disease- Primary Atherosclerosis of nulato coronary artery of nulato heart without angina pectoris Dyslipidemia, goal LDL below 70 Other and unspecified hyperlipidemia History of pulmonary embolism Personal history of pulmonary embolism Tachy-chintan syndrome (HCC) Sinoatrial node dysfunction S/P placement of cardiac pacemaker Cardiac pacemaker in situ Arthralgia of right hip Gastro-esophageal reflux disease with esophagitis, without bleeding Sinus tachycardia Other specified cardiac dysrhythmias Coronary artery disease involving nulato coronary artery of nulato heart without angina pectoris Presence of cardiac pacemaker Cardiac pacemaker in situ Palpitations HTN, goal below 140/90 Unspecified essential hypertension Hypertensive kidney disease with stage 3a chronic kidney disease- Primary Dyslipidemia, goal LDL below 70 Other and unspecified hyperlipidemia Gastro-esophageal reflux disease with esophagitis, without bleeding Atherosclerosis of nulato coronary artery of nulato heart without angina pectoris History of DVT (deep vein thrombosis) Personal history of venous thrombosis and embolism History of pulmonary embolism Personal history of pulmonary embolism Flank pain Abdominal pain, unspecified site Dysuria Urinary incontinence, nocturnal enuresis Nocturnal enuresis documented in this encounter Advance Directives Documents on File Type Date Recorded Patient Assistant Child Care Teacher Expl anation Advance Directives and Living [...] Agen t (per Health Care Power of Financial Manager document) Guille Urban Adult Child Health Care Agen t (per Health Care Power of Financial Manager document) Care Teams Tube Backer Relationship Specialty Start Date End Date Rafa Bergman MD [address] [place] [address] [place] [phone] PCP - General Family Medicine 04/19/21 documented as of this encounter
--- OUTSIDE RECORDS SUMMARY | 2024-07-24 00:18 | External Medical Summary ---
Author Name Unknown Address Unknown Organization [id number]:[facility] [place] [address] [place] [address] Laboratory Report Ordering Provider Test Date Status NEL YE 02/17/2024 11:19:06 Final Observation Date Value Abnormality Reference (Units ) Status BUN 02/17/2024 11:19:06 27 Above high normal 6-20 (mg/dL) Final Creatinine 02/17/2024 11:19:06 1.2 Above high normal 0.5-1.0 (mg/dL) Final Glomerular filtration rate/1.73 sq M.predicted [Volume Rate/Area] in Serum, Plasma or Blood by Creatinine-based formula (CKD-EPI) 02/17/2024 11:19:06 47 Below low normal >=60 (mL/min) Final eGFR is calculated based on the CKD-EPI 2020 equation. Sodium 02/17/2024 11:19:06 144 135-146 (m mol/L) Final Potassium 02/17/2024 11:19:06 4.4 3.5-5.1 (m mol/L) Final Cl 02/17/2024 11:19:06 104 98-107 (mm ol/L) Final CO2 02/17/2024 11:19:06 28 22-32 (mmo l/L) Final Anion gap 02/17/2024 11:19:06 12 7-15 (mmol /L) Final Glucose 02/17/2024 11:19:06 95 70-120 (mg /dL) Final Albumin 02/17/2024 11:19:06 4.0 3.8-5.0 (g /dL) Final AST (Aspartate aminotransferase) 02/17/2024 11:19:06 <10 Below low normal 10-35 (U/L) Final Alk Phos 02/17/2024 11:19:06 90 35-130 (U/ L) Final Bilirubin, Total 02/17/2024 11:19:06 0.4 <=1 .2 (mg/dL) Final Calcium 02/17/2024 11:19:06 10.1 8.4-10.2 ( mg/dL) Final Protein 02/17/2024 11:19:06 5.9 Below low normal 6.0 -8.3 (g/dL) Final ALT (Alanine aminotransferase) 02/17/2024 11:19:06 16 10-35 (U/L) John castrejon Performing Location [facility] [place] [address] [facility] [address]
--- OUTSIDE RECORDS SUMMARY | 2024-07-24 00:18 | External Medical Summary ---
Author Name Unknown Address Unknown Organization [id number]:[facility] [place] - [address] [place] [address] Laboratory Report Ordering Provider Test Date Status DEEPTHI LAROSE 02/17/2024 11:19:06 Final Observation Date Value Abnormality Reference (Units) Status Bacteria identified in Specimen by Culture 02/17/2024 11:19:06 No significant growth Final Test: Culture, Urine, Quant itative
Specimen Source: Urine, Clean Catch
Specimen Type: Urine
Specimen Date: 02/17/2024 1119
Result Date: 02/18/2024 1900
Result Status: Final result
Resulting Lab: [facility] [place]
[address]
[place] [address]

CULTURE

No significant growth

null Performing Location [facility] [place] - [address] [facility] [address]
--- OUTSIDE RECORDS SUMMARY | 2024-07-24 00:18 | External Medical Summary ---
Author Name Unknown Address Unknown Organization [id number][place] [place] [facility] [address] [facility] [address] Laboratory Report Ordering Provider Test Date Status NEL YE 02/17/2024 11:19:06 Final Observation Date Value Abnormality Reference (Units ) Status WBC, Total 02/17/2024 11:19:06 10.44 4.00-10.80 (K/uL) Final RBC 02/17/2024 11:19:06 4.79 3.85-5.15 (M/uL) Final Hemoglobin 02/17/2024 11:19:06 15.8 Above high normal 12.0-15.3 (g/dL) Final HCT 02/17/2024 11:19:06 49.5 Above high normal 36.0-45.2 (%) Final MCV 02/17/2024 11:19:06 103.3 81.5-97.5 (fL) Final MCH 02/17/2024 11:19:06 33.0 27.0-34.0 (pg) Final MCHC 02/17/2024 11:19:06 31.9 32.0-36.0 (g/dL) Final RDW 02/17/2024 11:19:06 14.9 11.5-15.5 (%) Final Platelets 02/17/2024 11:19:06 335 140-400 (K/uL) Final MPV 02/17/2024 11:19:06 10.5 6.6-11.1 (fL) Final Nucleated erythrocytes/100 leukocytes [Ratio] in Blood by Automated count 02/17/2024 11:19:06 0 <=0 (/100 WBCs) Final Performing Location [facility] [place] [facility] [place] [address]
--- OUTSIDE RECORDS SUMMARY | 2024-07-24 00:18 | External Medical Summary | Summary of Care ---
Author Name Unknown Organization [facility] Address [address] [facility] [place] [address] Phone [phone] Care Team Providers Care Collector Of Aquarium Specimens Name Role Phone Rafa Bergman MD Primary Care Provide r Reason for Visit * Reason Onset Date Comments Medication Pre-auth 12/12/2023 Prolia Encounter Details Date Type Department Care Team (Late st Contact Info) Description 12/12/2023 Telephone Rheumatology [place] [id number] [place] [address] Deangelo [place]ley MD [facility]0 [address] [place] [address] Medication Pre-auth (Prolia ) Allergies Active [...] for Constipation . 03/26/20 23 Active Nystatin 820644 UNIT/GM External Powder (Nystop)Indicat ions:Rash and nonspecific [...] tachycardia,Tac hy-chintan syndrome (HCC),Coronary artery disease involving jackson coronary artery of jackson heart without angina pectoris,Dyslip idemia, goal LDL [...] syndrome (HCC),Sinus tachycardia,Cor onary artery disease involving jackson coronary artery of jackson heart without angina pectoris,Presen ce of cardiac [...] of jackson heart without angina pectoris 07/08/2018 Overview (11/21/2023): history of NSTEMI status post AMIE to LAD (culprit) and RCA, 04/28/2018 Assessment & Plan (01/24/2024 4:40 PM EDT): Cardiac rehab at [facility] 2x week Assessment & Plan (11/21/2023 5:32 [...] 09/13/2022 11/08/2023 Atherosclerosis of coronary artery of jackson heart [...] filter 02/28/2015 Atherosclerotic heart diseas e of jackson coronary artery with angina pectoris 11/2018 CKD [...] No 02/06/2024 Does the household have a [facility]? 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 Not on file Not on file documented as of this encounter Miscellaneous Notes * Addendum Note - Yessenia Hernanedz LPN - 02/13/2024 2:42 PM ESTAddended by: [...] this patient for an appointment with the [facility] Nurse clinic in for Prolia, per referral [...] LPN - 01/21/2024 8:13 AM EDT Libby Florentino ASHLEY to [facility] Pfc Pool/Class AN 01/20/24 8:01 AM [...] LPN - 01/07/2024 7:50 AM EDT Libby Florentino OSA to Naya Brown LPN [facility] Pfc Pool/Class AN 12/23/23 10:20 AM Called patient, she's [...] thx * Telephone Encounter - Angela Rodriguez RPh - 12/13/2023 10:18 AM EDT Auth okay [...] 3:00 PM EST Office Visit Family Medicine [address] [place] [phone] Nicol Ferguson MD [address] [place] [address] [place] [address] 02/17/2024 11:10 AM EST Laboratory Laboratory [address] [place] [phone] [place], Lab [address] [place] [address] 02/21/2024 10:30 AM EST Nurse Only Rheumatology [address] [place] [phone] [place], Nurse Rheum [address] [place] [phone] 02/25/2024 2:30 PM EST Office Visit Hematology/Oncology [facility] [address] [place] [phone] Arianna Szymanski MD [address] [place] [address] 03/18/2024 2:15 PM EST Office Visit Ophthalmology, [facility] [address] [place] [address] Pedro Tinsley, [address] [place] [address] 03/19/2024 4:00 PM EST [facility] Visit [facility], [facility] [address] [place] [address] Olinda Briggs, CHRISTINA [address] [place] [address] 03/30/2024 11:00 AM EST [facility], [facility] [address] [place] [address] Leon Live PA-C [address] [place] [address] 05/22/2024 3:45 PM EST Office Visit Dermatology [facility] [address] [place] [address] Guy Trivedi MD [address] [place] [address] 06/25/2024 9:00 AM EDT Office Visit Family Medicine [address] [place] [phone] Rafa Bergman MD [address] [place] [address] [place] [address] 07/21/2024 10:00 AM EDT Imaging Radiology, [address] [place] [address] 09/04/2024 1:00 PM EDT Office Visit Rheumatology [address] [place] [phone] Deangelo [place] MD [facility] [place] [address] Health Maintenance Due Date Last Done Comments [...] Additional history exists CKD HGB USE SMARTSET 58857 06/26/202406/26, 06/27/2023, 04/26/2023, Additional history exists CKD PHOS USE SMARTSET 84010 06/26/202405/31, 04/19/2021, 11/27/2019, Additional history exists DXA [...] D LEVEL ONCE IN A LIFETIME-USE SMARTSET# 96186 Completed 06/27/2023, 11/06/2021, 12/28/2019, Additional history exists HPV (Gardasil) Vaccine Aged Out No lo nger eligible based on patient's age to complete this topic MENINGOCOCCAL (MENACTRA/MENVEO) Aged Out No longer eligible based on patient's age to complete this topic documented as of this encounter Medical Devices Implanted Type Area Talent Buyer Device Identifier Shelf Expiration Date Model / Serial / Lot Lens Intraoc 21.5 - [id number] - [id number] Implanted:Qty: 1 on 05/12/2019 by Yury Brady MD at OR [facility] Right: Eye [employer] 12/30/2023 [id number] / [id number] / [id number] Lens Intraoc 22.5 - [id number] - [id number] Implanted:Qty: 1 on 04/05/2020 by Yury Brady MD at OR [facility] Left: Eye [employer] 09/28/2024 [id number] / [id number] / [id number] documented as of this encounter Advance Directives Documents on File Type Date Recorded Patient Grooming Salon Manager Expl anation Advance Directives and Living [...] Agen t (per Health Care Power of Case Worker document) Guille Urban Adult Child Health Care Agen t (per Health Care Power of Case Worker document) Care Teams Collector Of Aquarium Specimens Relationship Specialty Start Date End Date Rafa Bergman MD [address] [place] [address] [place] [address] PCP - General Family Medicine 04/19/21 documented as of this encounter
--- OUTSIDE RECORDS SUMMARY | 2024-07-24 00:18 | External Medical Summary | Summary of Care ---
Author Name Unknown Organization [facility] Address [address] [facility] [place] [address] Phone [phone] Care Team Providers Care Legal Officer Name Role Phone Rafa Bergman MD Primary Care Provide r Reason for Visit * Reason Onset Date Comments Medication Pre-auth 12/12/2023 Prolia Encounter Details Date Type Department Care Team (Late st Contact Info) Description 12/12/2023 Telephone Rheumatology [place] [phone] [employer] [place] [address] Peter Le MD [facility] [address] [place] [address] Medication Pre-auth (Prolia ) Allergies Active [...] for Constipation . 03/26/20 23 Active Nystatin 517338 UNIT/GM External Powder (Nystop)Indicat ions:Rash and nonspecific [...] tachycardia,Tac hy-chintan syndrome (HCC),Coronary artery disease involving yuhaaviatam coronary artery of yuhaaviatam heart without angina pectoris,Dyslip idemia, goal LDL [...] syndrome (HCC),Sinus tachycardia,Cor onary artery disease involving yuhaaviatam coronary artery of yuhaaviatam heart without angina pectoris,Presen ce of cardiac [...] inj 60 mgIndications:Senile osteoporosis 60 mg SC [id number] 02/13/2024 08/11/2024 Active documented as of this encounter (statuses as of 02/13/2024) Active Problems Problem Noted Date Diagnosed Date Nevus of 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 History of AL (myocardial infarction) 11/27/2022 History of pulmonary embolism [...] S/P angioplasty with stent 11/27/2018 Atherosclerosis of yuhaaviatam co ronary artery of yuhaaviatam heart without angina pectoris 07/08/2018 Overview (11/21/2023): [...] 09/13/2022 11/08/2023 Atherosclerosis of coronary artery of yuhaaviatam heart without angina pectoris 09/10/2022 10/31/2022 Hypothyroidism [...] filter 02/28/2015 Atherosclerotic heart diseas e of yuhaaviatam coronary artery with angina pectoris 11/2018 CKD [...] Job 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 Not on file 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 e [employer] 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 Not on file Not on file Not [...] LPN - 01/21/2024 8:13 AM EDT Libby Floerntino, ASHLEY to [facility] Pfc Pool/Class AN 01/20/24 8:01 AM No, [...] Libby Florentino, ASHLEY to Naya Brown LPN [facility]/Class AN 12/23/23 10:20 AM Called patient, she's [...] thx * Telephone Encounter - Angela Rodriguez [facility] - 12/13/2023 10:18 AM EDT Auth okay [...] 3:00 PM EST Office Visit Family Medicine [address] [place] [phone] Nicol Ferguson MD [address] [place] [address] [place] [address] 02/17/2024 11:10 AM EST Laboratory Laboratory [address] [place] [phone] [place], Lab [address] [place] [address] 02/21/2024 10:30 AM EST Nurse Only Rheumatology [address] [phone] [place], Nurse Rheum [address] [place] [phone] 02/25/2024 2:30 PM EST Office Visit Hematology/Oncology [facility] [address] [place] [phone] Arianna Szymanski MD [address] [place] [address] 03/18/2024 2:15 PM EST Office Visit Ophthalmology, [facility] [address] [place] [address] Pedro Tinsley DO [address] [place] [address] 03/19/2024 4:00 PM EST [facility] Visit [facility], [facility] [address] [place] [address] Olinda Briggs, CHRISTINA [address] [place] [address] 03/30/2024 11:00 AM EST Home Visit [facility], [facility] [address] [place] [address] Leon Live PA-C [address] [place] [address] 05/22/2024 3:45 PM EST Office Visit Dermatology [facility] [address] [place] [address] Guy Trivedi MD [address] [place] [address] 06/25/2024 9:00 AM EDT Office Visit Family Medicine [address] [place] [phone] Rafa Bergman MD [address] [place] [address] [place] [address] 07/21/2024 10:00 AM EDT Imaging Radiology, [address] [place] [address] 09/04/2024 1:00 PM EDT Office Visit Rheumatology [address] [place] [phone] Peter Le MD [address] [place] [address] Health Maintenance Due Date Last Done Comments [...] Additional history exists CKD HGB USE SMARTSET 59021 06/26/202406/26, 06/27/2023, 04/26/2023, Additional history exists CKD PHOS USE SMARTSET 53140 06/26/202405/31, 04/19/2021, 11/27/2019, Additional history exists DXA [...] D LEVEL ONCE IN A LIFETIME-USE SMARTSET# 76770 Completed 06/27/2023, 11/06/2021, 12/28/2019, Additional history exists HPV (Gardasil) Vaccine Aged Out No lo nger eligible based on patient's age to complete this topic MENINGOCOCCAL (MENACTRA/MENVEO) Aged Out No longer eligible based on patient's age to complete this topic documented as of this encounter Medical Devices Implanted Type Area Plant Chief Device Identifier Shelf Expiration Date Model / Serial / Lot Lens Intraoc 21.5 - [id number] - [id number] Implanted:Qty: 1 on 05/12/2019 by Yury Brady MD at OR [facility] Right: Eye [employer] 12/30/2023 [id number] / [id number] / [id number] Lens Intraoc 22.5 - [id number] - [id number] Implanted:Qty: 1 on 04/05/2020 by Yury Brady MD at OR [facility] Left: Eye [employer]OM[employer] 09/28/2024 [id number] / [id number] / [id number] documented as of this encounter Visit Diagnoses Diagnosis Hypertensive kidney disease with stage 3a chronic kidney disease- Primary Atherosclerosis of yuhaaviatam coronary artery of yuhaaviatam heart without angina pectoris Dyslipidemia, goal LDL below 70 Other and unspecified hyperlipidemia History of pulmonary embolism Personal history of pulmonary embolism Tachy-chintan syndrome (HCC) Sinoatrial node dysfunction S/P placement of cardiac pacemaker Cardiac pacemaker in situ Arthralgia of right hip Gastro-esophageal reflux disease with esophagitis, without bleeding Sinus tachycardia Other specified cardiac dysrhythmias Coronary artery disease involving yuhaaviatam coronary artery of yuhaaviatam heart without angina pectoris Presence of cardiac pacemaker Cardiac pacemaker in situ Palpitations HTN, goal below 140/90 Unspecified essential hypertension Senile osteoporosis- Primary Hypertensive kidney disease with stage 3a chronic kidney disease- Primary Dyslipidemia, goal LDL below 70 Other and unspecified hyperlipidemia Gastro-esophageal reflux disease with esophagitis, without bleeding Atherosclerosis of yuhaaviatam coronary artery of yuhaaviatam heart without angina pectoris documented in this encounter Advance Directives Documents on File Type Date Recorded Patient 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
--- OUTSIDE RECORDS SUMMARY | 2024-07-24 00:19 | External Medical Summary | Summary of Care ---
Author Name Unknown Organization [facility] Address [address] [facility] [place] [address] Phone [phone] Care Team Providers Care Film Developing Machine Operator Name Role Phone Rafa Bergman MD Primary Care Provide r Reason for Visit * Reason Onset Date Comments Medication Pre-auth 02/04/2024 Precert Pending 02/04/2024 05 MARSHALL SADLER Encounter Details Date Type Department Care Team (Late st Contact Info) Description 02/04/2024 Telephone Ophthalmology, [facility] [address] [place] [address] Pedro Tinsley DO [address] [place] [address] Medication Pre-auth; Precert Pending (05 K... Allergies Active Allergy Reactions Criticality Noted Date Comments Colchicine Diarrhea 06/16/2018 Daptomycin 01/05/2015 Shortness of breath Imipenem Edema airway High 01/05/2015 Metoprolol Low 01/23/2021 Other reaction(s): fatigue Zoledronic Acid 04/24/2012 Myalgias, fever, chills, vomiting x 2 days Sulfa Antibiotics 12/22/2002 Bactrim--itchy all over, eyes swollen documented as of this encounter (statuses as of 02/04/2024) Medications Medication Sig Dispensed Refills Start Date End Date Status ASPIRIN 81 MG PO TABS Take by [...] loose stool 30 Capsule 3 08/01/2022 Active Dicyclomine HCl 10 MG Oral Capsule (Bentyl)Indications :Diarrhea, unspecified type,Irritable bowel syndrome with both constipation and diarrhea take 1 capsule as needed in the morning, 1 capsules as needed at noon, 1 capsule as needed in the evening and 1 capsule as needed before bedtime for pain or gas. take for abdominal pain. 120 Capsule 01/08/2023 Active Cholecalciferol 50 MCG (2000 UT) Oral Capsule Take 1 Capsule by mouth in the morning. Active Fortify Probiotic Womens Oral Capsule Delayed Release Take 1 Capsule by mouth in the morning. Active Bisacodyl 5 MG Oral Tablet Delayed Release (Dulcolax) Take 1 Tablet by mouth daily as needed for Constipation. 03/26/2023 Active Nystatin 887183 UNIT/GM External Powder (Nystop)Indications :Rash and nonspecific skin eruption Apply topically to affected area 2 times a day. 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 180 Tablet 3 01/09/2024 Active Pantoprazole Sodium 40 MG Oral Tablet Delayed Release (Protonix) Take 1 Tablet by mouth in the morning and 1 Tablet in the evening. 90 Tablet 3 01/09/2024 Active Rosuvastatin Calcium 5 MG Oral Tablet (Crestor)Indication s:Dyslipidemia, goal LDL below 70,Coronary artery disease involving [place] coronary artery of [place] heart without angina pectoris TAKE ONE TABLET BY MOUTH IN THE MORNING 90 Tablet 3 01/10/2024 Active Propranolol HCl 10 MG Oral Tablet (Inderal)Indication s:Sinus tachycardia,Tachy-b rady syndrome (HCC),Coronary artery disease involving [place] coronary artery of [place] heart without angina pectoris,Presence of cardiac pacemaker,Palpitati ons,HTN, goal below 140/90 Take one-half Tablet by mouth in the morning and before bedtime. 90 Tablet 3 01/10/2024 Active Levothyroxine Sodium 125 MCG Oral Tablet (Levoxyl)Indication s:Hypothyroidism (acquired) Take 1 Tablet by mouth daily first thing in the morning. (at least 30 min prior to breakfast or other meds) 90 Tablet 2 01/10/2024 Active Verapamil HCl ER 240 MG Oral Tablet Extended Release (Isoptin SR) Take 1 Tablet by mouth in the morning and 1 Tablet before bedtime. 180 Tablet 2 01/10/2024 Active Vitamin B-12 1000 MCG Oral Tablet (Cyanocobalamin) Take 1 Tablet by mouth in the morning. In the morning.. 90 Tablet 1 01/10/2024 Active Ondansetron HCl 4 MG Oral TabletIndications:N ausea Take 1 Tablet by mouth every 8 hours as needed for Nausea. 30 Tablet 01/17/2024 Active Spironolactone 25 MG Oral Tablet (Aldactone)Indicati ons:Dyslipidemia, goal LDL below 70 Take 0.5 Tablets by mouth daily as needed (swelling). 90 Tablet 1 01/24/2024 Active Famotidine 20 MG Oral Tablet (Pepcid) Take 1 Tablet by mouth at bedtime. 90 Tablet 3 01/24/2024 Active levoFLOXacin 500 MG Oral Tablet (Levaquin) Take 1 Tablet by mouth in the morning for 7 days. until gone.. 7 Tablet 02/02/2024 02/09/2024 Active Hospital, Clinic, or Other Facility Administered [...] as of this encounter (statuses as of 02/04/2024) Active Problems Problem Noted Date Diagnosed Date Nevus of 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 History of VT (myocardial infarction) 11/27/2022 History of pulmonary embolism 11/27/2022 Last Assessment & Plan: Continues on eliquis S/P placement of cardiac pacemaker 10/01/2022 Tachy-chintan syndrome 09/10/2022 Gastro-esophageal reflux dis ease with esophagitis, without bleeding 12/15/2021 Last Assessment & Plan: Increase protonix to bid Prediabetes 05/15/2021 Overview: Per Prediabetes protocol Chronic kidney disease, stage 3a 03/13/2021 Overview: Per CKD protocol History of basal cell carcinoma 07/06/2020 Hypertensive kidney disease with stage 3a chronic kidney disease 02/08/2020 Overview: Per CKD protocol - Per CKD protocol Last Assessment & Plan: Symptomatic hypotension at times Will hold spironolactone for now, encourage compression stockings for edema Continue propanolol and verapamil S/P angioplasty with stent 11/27/2018 Atherosclerosis of [place] tribe co ronary artery of [place] heart without angina pectoris 07/08/2018 Overview: history of NSTEMI status post AMIE to LAD (culprit) and RCA, 04/28/2018 Last Assessment & Plan: Cardiac rehab at [facility] 2x week Arthritis of left ankle 11/06/2017 Deviated nasal septum 10/14/2017 Rhinitis, nonallergic 08/13/2017 History of DVT (deep vein thrombosis) 01/02/2017 Overview: Not on anticoagulation due to internal bleeding. Both DVT were provoked. H/O nonmelanoma skin cancer 01/02/2017 Vitamin B12 deficiency 05/12/2014 Retinal vein occlusion of right eye 10/28/2013 Hypothyroidism (acquired) 09/15/2013 Dyslipidemia, goal LDL below 70 09/15/2013 Last Assessment & Plan: Continue statin HTN, goal below 140/90 03/02/2013 Senile osteoporosis 05/14/2008 documented as of this encounter (statuses as of 02/04/2024) Resolved Problems Problem Noted Date Diagnosed Date Resolved Date Purulent endophthalmitis of right eye 01/03/2023 11/08/2023 Other pulmonary embolism wit h acute cor pulmonale 10/01/2022 04/26/2023 Overview: history Medical home patient encounter 09/13/2022 11/08/2023 Atherosclerosis of coronary artery of [place] heart without angina pectoris 09/10/2022 10/31/2022 [...] of inactive term Mixed dyslipidemia 05/13/2003200 9 Overview: Resolved per Duplicate Protocol #2. Sebaceous hyperplasia, Rt forehead 10/05/97 01/28/2002 09/15/2013 Irritated, inflamed seborrhe ic keratosis, Above rt angle of mandible 04/09/01 01/28/20022013 Major depressive disorder 01/12/2002 Overview: ICD-10 update of inactive term Intradermal Nevus,right upper arm //11/12/2001 09/15/2013 new lesion- rt shoulder 11/03/200108/30 Prolapse [...] filter 02/28/2015 Atherosclerotic heart diseas e of [place] coronary artery with angina pectoris 11/2018 CKD (chronic kidney disease) stage 2, GFR 60-89 ml/min 03/12/2019 documented as of this encounter (statuses as of 02/04/2024) Immunizations Name Administration Dates Next Due COVID-19 [...] the money to buy more. Never true 05/24/19 24 Within the past 12 months, t he food you bought just didn't last and you didn't have money to get more. Never true 05/24/2023 Childcare Answer Date Recorded Do you feel overwhelmed with taking care of a child, family member or friend? No 05/24/2023 Does your family need help f inding childcare? (Household - for ages 0-17 years) Not on file 05/24/2023 Clothing Answer Date Recorded Have you been unable to get clothing when it was really needed? No 05/24/2023 Is your family able to get c lothes or diapers when needed? (Household - for ages 0-17 years) Not on file 05/24/2023 Personal Safety Answer Date Recorded Do you feel unsafe or have concerns for your saf ety? No 05/24/2023 Do you have concerns for you r family's safety? (Household - for ages 0-17 years) Not on file 05/24/2023 Utilities Answer Date Recorded Do you have trouble paying y our heating, water, or electric bill? No 05/24/2023 Is your family able to pay t he heat, water, or electric bill? (Household - for ages 0-17 years) Not on file 05/24/2023 Does your family have access to good internet? (Household - for ages 0-17 years) Not on file 05/24/2023 Employment Status Answer Date Recorded Are you unemployed or without regular income? No 05/24/2023 Does the household have a re gular source of income? (Household - for ages 0-17 years) Not on file 05/24/2023 Social Connections Answer Date Recorded How often do you feel lonely or isolated from th ose around you? Never 05/24/2023 Financial Resource Strain Answer Date R ecorded Do you have any trouble payi ng for your medications, or do you think you might in the future? No 05/24/2023 Does your family have troubl e paying for medicine? (Household - for ages 0-17 years) Not on file 05/24/2023 Transportation Needs Answer Date Record ed READ ONLY Do you have troubl e getting a ride to medical visits or work? Never True 05/24/2023 Does your family have a hard time getting a ride to doctors visits? (Household - for ages 0-17 years) Not on file 05/24/2023 Has lack of transportation k ept you from medical appointments, meetings, work, or from getting things needed for daily living? Check all that apply. (Adult - for ages 18 years and over) Not on file 05/24/2023 Do you (or your family) have trouble finding or paying for a ride (transportation)? (Household - for ages 0-17 years) Not on file 05/24/2023 Housing Stability Answer Date Recorded Do you currently live in a s helter or have no steady place to sleep at night? No 05/24/2023 READ ONLY Do you think you a re at risk of becoming homeless? No 05/24/2023 Does your family worry about paying for your home or becoming homeless? (Household - for ages 0-17 years) Not on file 0 05/24/2023 Are you homeless or worried that you might be in the future? (Adult - for ages 18 years and over) Not on file Are you (or your family) sulaiman eless or worried that you might be in the future? (Household - for ages 0-17 years) Not on file Food Insecurity Answer Date Recorded Do you need food for this week? No 05/24/2023 Are you able to get enough f ood for your family? (Household - for ages 0-17 years) Not on file 05/24/2023 Does your family need food t his week? (Household - for ages 0-17 years) Not on file 05/24/2023 Do you always have enough fo od for your family? 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 (H34.8310) Medication: Vabysmo Eye Treated: OD Date of office visit: 02/04/24 documented in this encounter Plan of Treatment Upcoming Encounters Date Type Department Care Team (Late st Contact Info) Description 02/06/2024 5:30 PM EST Home Visit [facility] [address] [place] [address] Olinda Briggs RN [address] [place] [address] 02/17/2024 11:10 AM EST Laboratory Laboratory [address] [place] [phone] [place], Lab [address] [place] [address] 02/21/2024 10:30 AM EST Nurse Only Rheumatology [address] [place] [phone] [place], Nurse Rheum [address] [place] [phone] 02/25/2024 2:30 PM EST Office Visit Hematology/Oncology [facility] [place] [address] [place] [phone] Arianna Szymanski MD [address] [place] [address] 03/18/2024 2:15 PM EST Office Visit Ophthalmology, [facility] [address] [place] [address] Pedro Tinsley, DO [address] [place] [address] 03/30/2024 11:00 AM EST Home Visit [facility] [place] [address] [place] [address] Leon Live PA-C [address] [place] [address] 05/22/2024 3:45 PM EST Office Visit Dermatology [facility] [place] [address] [place] [address] Guy Trivedi MD [address] [place] [address] 06/25/2024 9:00 AM EDT Office Visit Family Medicine [address] [place] [phone] Rafa Bergman MD [address] [place] [address] [place] [address] 07/21/2024 10:00 AM EDT Imaging Radiology, [address] [place] [address] 07/27/2024 10:00 AM EDT Office Visit Rheumatology [address] [place] [phone] Deangelo Holley MD [address] [place] [address] [place] [address] Health Maintenance Due Date Last Done Comments [...] Additional history exists CKD HGB USE SMARTSET 73364 06/26/202406/26, 06/27/2023, 04/26/2023, Additional history exists CKD PHOS USE SMARTSET 48152 06/26/202405/31, 04/19/2021, 11/27/2019, Additional history exists DXA [...] D LEVEL ONCE IN A LIFETIME-USE SMARTSET# 01000 Completed 06/27/2023, 11/06/2021, 12/28/2019, Additional history exists HPV (Gardasil) Vaccine Aged Out No lo nger eligible based on patient's age to complete this topic MENINGOCOCCAL (MENACTRA/MENVEO) Aged Out No longer eligible based on patient's age to complete this topic documented as of this encounter Medical Devices Implanted Type Area Project Management Instructor Device Identifier Shelf Expiration Date Model / Serial / Lot Lens Intraoc 21.5 - [id number] - [id number] Implanted:Qty: 1 on 05/12/2019 by Yury Brady MD at OR [facility] Right: Eye [employer]OM[employer] 12/30/2023 [id number] / [id number] / [id number] Lens Intraoc 22.5 - [id number] - [id number] Implanted:Qty: 1 on 04/05/2020 by Yury Brady MD at OR [facility] Left: Eye [employer]CH [employer] LOMB 09/28/2024 [id number] / [id number] / [id number] documented as of this encounter Advance Directives Documents on File Type Date Recorded 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
--- OUTSIDE RECORDS SUMMARY | 2024-07-24 00:19 | External Medical Summary | Summary of Care ---
Author Name Unknown Organization [facility] Address [address] [facility] [place] [address] Phone [phone] Care Team Providers Care Underwear Cutter Name Role Phone Rafa Bergman MD Primary Care Provide r Encounter Details Date Type Department Care Team (Late st Contact Info) Description 02/07/2024 Result Scan Unspecified Department Charles Ortega O, DO [address] [place] [address] <No scans attached> Allergies Active Allergy Reactions Criticality Noted Date Comments Colchicine Diarrhea 06/16/2018 Daptomycin 01/05/2015 Shortness of breath Imipenem Edema airway High 01/05/2015 Metoprolol Low 01/23/2021 Other reaction(s): fatigue Zoledronic Acid 04/24/2012 Myalgias, fever, chills, vomiting x 2 days Sulfa Antibiotics 12/22/2002 Bactrim--itchy all over, eyes swollen documented as of this encounter (statuses as of 02/07/2024) Medications ASPIRIN 81 MG PO TABS Take [...] as needed for Constipation. 3 Active Nystatin 388303 UNIT/GM External Powder (Nystop)Indicatio ns:Rash and nonspecific [...] goal LDL below 70,Coronary artery disease involving [place] coronary artery of [place] heart without angina pectoris TAKE ONE TABLET BY MOUTH IN THE MORNING 90 Tablet 3 4 Active Propranolol HCl 10 MG Oral Tablet (Inderal)Indicati ons:Sinus tachycardia,Tachy -chintan syndrome (HCC),Coronary artery disease involving [place] coronary artery of [place] heart without angina pectoris,Presence of cardiac pacemaker,Palpita [...] at bedtime. 90 Tablet 3 4 Active levoFLOXacin 500 MG Oral Tablet (Levaquin) Take 1 Tablet by mouth in the morning for 7 days. until gone.. 7 Tablet 4 02/09/20 24 Active Hospital, Clinic, or Other Facility Administered [...] as of this encounter (statuses as of 02/07/2024) Active Problems Problem Noted Date Diagnosed Date [...] S/P angioplasty with stent 11/27/2018 Atherosclerosis of [place] co ronary artery of [place] heart without angina pectoris 07/08/2018 Overview (11/21/2023): [...] as of this encounter (statuses as of 02/07/2024) Resolved Problems Problem Noted Date Diagnosed Date Resolved Date Purulent endophthalmitis of right eye 01/03/2023 11/08/2023 Other pulmonary embolism wit h acute cor pulmonale 10/01/2022 04/26/2023 Overview (04/26/2023): history Medical home patient encounter 09/13/2022 11/08/2023 Atherosclerosis of coronary artery of [place] heart without angina pectoris 09/10/2022 10/31/2022 Hypothyroidism [...] filter 02/28/2015 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 11/2018 CKD (chronic kidney disease) stage 2, GFR 60-89 ml/min 03/12/2019 documented as of this encounter (statuses as of 02/07/2024) Immunizations Name Administration Dates Next Due COVID-19 [...] 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 Not on file 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 Not on file Not on file documented as of this encounter Plan of Treatment Upcoming Encounters Date Type Department Care Team (Late st Contact Info) Description 02/17/2024 11:10 AM EST Laboratory Laboratory [address] [place] [phone] [place], Lab [address] [place] [address] 02/21/2024 10:30 AM EST Nurse Only Rheumatology [address] [place] [phone] [place], Nurse [address] [place] [phone] 02/25/2024 2:30 PM EST Office Visit Hematology/Oncology [facility] [address] [place] [phone] Arianna Szymanski MD [address] [place] [address] 03/18/2024 2:15 PM EST Office Visit Ophthalmology, [facility] [address] [place] [address] Pedro Tinsley DO [address] [place] [address] 03/19/2024 4:00 PM EST [facility] Visit [facility] [address] [place] [address] Olinda Briggs, RN [address] [place] [address] 03/30/2024 11:00 AM EST Home Visit [facility] [place], [facility] [address] [place] [address] Leon Live PA-C [address] [place] [address] 05/22/2024 3:45 PM EST Office Visit Dermatology [facility] [address] [facility] [place] [address] Guy Trivedi MD [address] [facility] [place] [address] 06/25/2024 9:00 AM EDT Office Visit Family Medicine [address] [place] [phone] Rafa Bergman MD [address] [place] [address] [place] [address] 07/21/2024 10:00 AM EDT Imaging Radiology, [address] [place] [address] 09/04/2024 1:00 PM EDT Office Visit Rheumatology [address] [place] [phone] Deangelo Holley MD [facility] [place] [address] Health Maintenance Due Date Last Done Comments Adult Wellness Visit 02/06/2018 02/06/2017 Depression Screening 07/17/2022 07/17/2021 COVID-19 Vaccine ( season) 2023 02/05/2022, 08/02/2021, 02/28/2021, Additional history exists Influenza Vaccine (FLU shot) (#1) 2023 04/19/2023, 01/30/2022, 12/28/2020, Additional history exists *BISPHONATE OR OTHER ACCEPTABLE MEDICATION NEEDED FOR OSTEOPOROSIS (REFER TO SMARTSET #1146) 01/05/2024 Albumin/Creatinine Ratio 02/13/202402/12/2 023, 03/21/2022, 04/19/2021, Additional history exists HbA1c 04/26/2024 04/26/2023, 03/02, 04/19/2021, Additional history exists GFR 05/07/2024 11/05/2023, 05/31, 06/14/2023, Additional history exists CKD HGB USE SMARTSET 64926 06/26/202406/26, 06/27/2023, 04/26/2023, Additional history exists CKD PHOS USE SMARTSET 41273 06/26/202405/31, 04/19/2021, 11/27/2019, Additional history exists DXA [...] D LEVEL ONCE IN A LIFETIME-USE SMARTSET# 29791 Completed 06/27/2023, 11/06/2021, 12/28/2019, Additional history exists HPV (Gardasil) Vaccine Aged Out No lo nger eligible based on patient's age to complete this topic MENINGOCOCCAL (MENACTRA/MENVEO) Aged Out No longer eligible based on patient's age to complete this topic documented as of this encounter Medical Devices Implanted Type Area Organ Pipe Finisher Device Identifier Shelf Expiration Date Model / Serial / Lot Lens Intraoc 21.5 - [id number] - [id number] Implanted:Qty: 1 on 05/12/2019 by Yury Brady MD at OR [facility] Right: Eye [employer]CH [employer] LOMB 12/30/2023 [id number] / [id number] / [id number] Lens Intraoc 22.5 - [id number] - [id number] Implanted:Qty: 1 on 04/05/2020 by Yury Brady MD at OR [facility] Left: Eye BAUSCH & LOMB 09/28/2024 [id number] / [id number] / [id number] documented as of this encounter Procedures Procedure Name Priority Date/Time Associated Diagnosis Comments CARDIOLOGY SCANNED RESULT 02/07/2024 documented in this encounter Results * CARDIOLOGY SCANNED RESULT (02/07/2024) 02/07/2024 us Charles Ortega DO OTHER Final Resul t documented in this encounter Advance Directives Documents on File Type Date Recorded Patient Green Building Design Specialist Expl anation Advance Directives and Living [...] Agen t (per Health Care Power of Slime Plant Operator Helper document) Guille Urban Adult Child Health Care Agen t (per Health Care Power of Slime Plant Operator Helper document) Care Teams Underwear Cutter Relationship Specialty Start Date End Date Rafa Bergman MD [address] [place] [address] [place] [address] PCP - General Family Medicine 04/19/21 documented as of this encounter
--- OUTSIDE RECORDS SUMMARY | 2024-07-24 00:19 | External Medical Summary | Summary of Care ---
Author Name Unknown Organization [facility] Address [address] [facility] [place] [address] Phone [phone] Care Team Providers Care Assistant Attorney General Name Role Phone Rafa Bergman MD Primary Care Provide r Reason for Visit * Reason Onset Date Comments Precert Pending 02/04/2024 MARSHALL SADLER Encounter Details Date Type Department Care Team (Late st Contact Info) Description 02/04/2024 Telephone Ophthalmology, [facility] [address] [place] [address] Pedro Tinsley DO [address] [place] [address] Precert Pending ( MARSHALL SADLER) Allergies Active Allergy Reactions Criticality Noted Date [...] as needed for Constipation. 03/26/2023 Active Nystatin 802870 UNIT/GM External Powder (Nystop)Indications :Rash and nonspecific [...] goal LDL below 70,Coronary artery disease involving shishmaref ira coronary artery of sh[place] ira heart without angina pectoris TAKE ONE TABLET BY MOUTH IN THE MORNING 90 Tablet 3 01/10/2024 Active Propranolol HCl 10 MG Oral Tablet (Inderal)Indication s:Sinus tachycardia,Tachy-b rady syndrome (HCC),Coronary artery disease involving sh[place]f ira coronary artery of sh[place] ira heart without angina pectoris,Presence of cardiac pacemaker,Palpitati [...] S/P angioplasty with stent 11/27/2018 Atherosclerosis of sh[place] ira co ronary artery of shishmare[place] ira heart without angina pectoris 07/08/2018 Overview: history of NSTEMI status post AMIE to LAD (culprit) and RCA, 04/28/2018 Last Assessment & Plan: Cardiac rehab at [facility] 2x week Arthritis of left ankle 11/06/2017 [...] 09/13/2022 11/08/2023 Atherosclerosis of coronary artery of shish[place] ira heart without angina pectoris 09/10/2022 10/31/2022 [...] of inactive term Intradermal Nevus,right upper arm 8//02 11/12/2001 09/15/2013 new lesion- rt shoulder 11/03/200108/30 [...] filter 02/28/2015 Atherosclerotic heart diseas e of shish[place] ira coronary artery with angina pectoris 11/2018 [...] Description 02/06/2024 5:30 PM EST Home Visit [facility] [address] [place] [address] Olinda Briggs, CHRISTINA [address] [place] [address] 02/17/2024 11:10 AM EST Laboratory Laboratory [address] [place] [address] [place], Lab [address] [place] [address] 02/21/2024 10:30 AM EST Nurse Only Rheumatology [address] [place] [address] [place], Nurse Rheum [address] [place] [address] 02/25/2024 2:30 PM EST Office Visit Hematology/Oncology [facility] [address] [facility] [place] [phone] Arianna Szymanski MD [address] [facility] [place] [address] 03/18/2024 2:15 PM EST Office Visit Ophthalmology, [facility] [address] [place] [address] Pedro Tinsley, DO [address] [place] [address] 03/30/2024 11:00 AM EST Home Visit [facility]inger at [facility] [address] [place] [address] Leon Live PA-C [address] [place] [address] 05/22/2024 3:45 PM EST Office Visit Dermatology [facility] [address] [facility] [place] [address] Guy Trivedi MD [address] [facility] [place] [address] 06/25/2024 9:00 AM EDT Office Visit Family Medicine [address] [place] [phone] Rafa Bergman MD [address] [place] [address] [place] [address] 07/21/2024 10:00 AM EDT [facility] [place] [address] 07/27/2024 10:00 AM EDT Office Visit Rheumatology [address] [place] [phone] Deangelo Holley MD [address] [place] [address] [facility] [place] [address] Health Maintenance Due Date Last Done Comments [...] Additional history exists CKD HGB USE SMARTSET 10287 06/26/202406/26, 06/27/2023, 04/26/2023, Additional history exists CKD PHOS USE SMARTSET 45541 06/26/202405/31, 04/19/2021, 11/27/2019, Additional history exists DXA [...] D LEVEL ONCE IN A LIFETIME-USE SMARTSET# 84132 Completed 06/27/2023, 11/06/2021, 12/28/2019, Additional history exists HPV (Gardasil) Vaccine Aged Out No lo nger eligible based on patient's age to complete this topic MENINGOCOCCAL (MENACTRA/MENVEO) Aged Out No longer eligible based on patient's age to complete this topic documented as of this encounter Medical Devices Implanted Type Area Photographic Press Screwmaker Device Identifier Shelf Expiration Date Model / Serial / Lot Lens Intraoc 21.5 - [id number] - [id number] Implanted:Qty: 1 on 05/12/2019 by Yury Brady MD at OR [facility] Right: Eye [employer] LOMB 12/30/2023 [id number] / [id number] / [id number] Lens Intraoc 22.5 - [id number] - [id number] Implanted:Qty: 1 on 04/05/2020 by Yury Brady MD at OR [facility] Left: Eye BAUSCH [employer] LOMB 09/28/2024 [id number] / [id number] / [id number] documented as of this encounter Advance Directives Documents on File Type Date Recorded 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
--- OUTSIDE RECORDS SUMMARY | 2024-07-24 00:19 | External Medical Summary | Summary of Care ---
Author Name Unknown Organization [facility] [address] [address] Phone [phone] Care Team Providers Care Ironing Pleater Name Role Phone Rafa Bergman MD Primary Care Provide r Reason for Visit * Reason Onset Date Comments Medication Pre-auth 12/12/2023 Prolia Encounter Details Date Type Department Care Team (Late st Contact Info) Description 12/12/2023 Telephone Rheumatology [facility] [address] [place] [address] Deangelo Holley MD [facility] [employer] [place] [address] Medication Pre-auth (Prolia ) Allergies Active Allergy Reactions Criticality Noted Date Comments Colchicine Diarrhea 06/16/2018 Daptomycin 01/05/2015 Shortness of breath Imipenem Edema airway High 01/05/2015 Metoprolol Low 01/23/2021 Other reaction(s): fatigue Zoledronic Acid 04/24/2012 Myalgias, fever, chills, vomiting x 2 days Sulfa Antibiotics 12/22/2002 Bactrim--itchy all over, eyes swollen documented as of this encounter (statuses as of 02/05/2024) Medications Medication Sig Dispensed Refills Start Date [...] as needed for Constipation. 3 Active Nystatin 887555 UNIT/GM External Powder (Nystop)Indicatio ns:Rash and nonspecific skin eruption Apply topically to affected area 2 times a day. Apply to the affected area 60 g 4 Active Nitroglycerin 0.4 MG Sublingual Tablet Sublingual (Nitrostat) Place under the tongue 1 Tablet as needed for Pain, Chest. 25 Tablet 1 2 12/30/19 24 Discontinued Famotidine 20 MG Oral Tablet (Pepcid)Indicatio ns:Abdominal pain, epigastric,Nausea Take 1 Tablet by mouth at bedtime. 90 Tablet 3 3 01/10/20 24 Discontinued(Pat ient preference/disco ntinuation) Ondansetron HCl 4 MG Oral TabletIndications :Nausea Take 1 Tablet by mouth every 8 hours as needed for Nausea. 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 180 Tablet 3 4 01/09/20 24 Discontinued(Ref ill) Rosuvastatin Calcium 5 MG Oral Tablet (Crestor)Indicati ons:Dyslipidemia, goal LDL below 70 TAKE ONE TABLET BY MOUTH IN THE MORNING 90 Tablet 3 4 01/09/20 24 Discontinued(Ref ill) Verapamil HCl ER 240 MG Oral Tablet Extended Release (Isoptin SR) TAKE ONE TABLET BY MOUTH TWICE DAILY 180 Tablet 1 4 01/10/20 24 Discontinued(Pat ient preference/disco ntinuation) Levothyroxine Sodium 125 MCG Oral Tablet (Levoxyl)Indicati ons:Hypothyroidis m (acquired) Take 1 Tablet by mouth daily first thing in the morning. (at least 30 min prior to breakfast or other meds) 90 Tablet 4 12/14/19 24 Discontinued Montelukast Sodium 10 MG Oral Tablet (Singulair)Indica tions:Seasonal allergies Take 1 Tablet by mouth in the morning. 90 Tablet 1 4 01/24/20 24 Discontinued Propranolol HCl 10 MG Oral Tablet (Inderal)Indicati ons:Sinus tachycardia,Tachy -chintan syndrome (HCC),Coronary artery disease involving absentee-shawnee coronary artery of absentee-shawnee heart without angina pectoris,Dyslipid emia, goal LDL below 70,Presence of cardiac pacemaker,Palpita tions,HTN, goal below 140/90 Take 0.5 Tablets by mouth in the morning and 0.5 Tablets before bedtime. 90 Tablet 3 4 01/09/20 24 Discontinued(Ref ill) Vitamin B-12 1000 MCG Oral Tablet (Cyanocobalamin) TAKE ONE TABLET BY MOUTH IN THE MORNING 90 Tablet 1 4 01/10/20 24 Discontinued(Pat ient preference/disco ntinuation) Pantoprazole Sodium 40 MG Oral Tablet Delayed Release (Protonix) Take 1 Tablet by mouth in the morning and 1 Tablet in the evening. In the morning.. 90 Tablet 3 4 01/09/20 24 Discontinued(Ref ill) Spironolactone 25 MG Oral Tablet (Aldactone)Indica tions:Dyslipidemi a, goal LDL below 70,Tachy-chintan syndrome (HCC),Sinus tachycardia,Coron hermelindo artery disease involving absentee-shawnee coronary artery of absentee-shawnee heart without angina pectoris,Presence of cardiac pacemaker,Palpita tions,HTN, goal below 140/90 Take 0.5 Tablets by mouth in the morning. 90 Tablet 1 4 01/09/20 24 Discontinued(Ref ill) Allopurinol 300 MG Oral Tablet (Zyloprim) TAKE 1 & 1/2 TABLETS BY MOUTH EVERY DAY 135 Tablet 4 01/09/20 24 Discontinued(Ref ill) Hospital, Clinic, or Other Facility Administered Medication [...] as of this encounter (statuses as of 02/05/2024) Active Problems Problem Noted Date Diagnosed Date Nevus of 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 History of KS (myocardial infarction) 11/27/2022 History of pulmonary embolism [...] S/P angioplasty with stent 11/27/2018 Atherosclerosis of absentee-shawnee co ronary artery of absentee-shawnee heart without angina pectoris 07/08/2018 Overview: history of NSTEMI status post AMIE to LAD (culprit) and RCA, 04/28/2018 Last Assessment & Plan: Cardiac rehab at [facility] 2x week Arthritis of left ankle [...] as of this encounter (statuses as of 02/05/2024) Resolved Problems Problem Noted Date Diagnosed Date Resolved Date Purulent endophthalmitis of right eye 01/03/2023 11/08/2023 Other pulmonary embolism wit h acute cor pulmonale 10/01/2022 04/26/2023 Overview: history Medical home patient encounter 09/13/2022 11/08/2023 Atherosclerosis of coronary artery of absentee-shawnee heart without angina pectoris 09/10/2022 10/31/2022 Hypothyroidism [...] filter 02/28/2015 Atherosclerotic heart diseas e of absentee-shawnee coronary artery with angina pectoris 11/2018 CKD (chronic kidney disease) stage 2, GFR 60-89 ml/min 03/12/2019 documented as of this encounter (statuses as of 02/05/2024) Immunizations Name Administration Dates Next Due COVID-19 [...] this patient for an appointment with the [facility] Nurse clinic in for Prolia, per referral message no auth needed and we were advised pt would have no oop. Thank you! * Telephone Encounter - Germaine Baer LPN - 01/23/2024 3:00 PM EDT Spoke with pt ",will jarred till FA is approved before getting Prolia." Once approved will call and schedule pt. * Telephone Encounter - Germaine Baer LPN - 01/22/2024 2:10 PM EDT Rico can look into this , pt has apt this Saturday. * Telephone Encounter - Germaine Baer LPN - 01/21/2024 8:13 AM EDT Libby Florentino ASHLEY to Me [facility] Pfc Pool/Class AN 01/20/24 8:01 AM No, this is still pending. We were advised to tell you to reach out to Rico Avalos when waiting on FA to try to get an updatedor have it pushed through quicker. We as PFCS unable to do anything further at this point. * Telephone Encounter - Germaine Baer LPN - 01/20/2024 7:52 AM EDT Pt has an apt. This week for Prolia , any info. On FA * Telephone Encounter - Germaine Baer LPN - 01/14/2024 10:13 AM EDT Have you heard anything on pts FA? * Telephone Encounter - Germaine Baer LPN - 01/07/2024 3:13 PM EDT Did pt fill out paperwork for FA * Telephone Encounter - Germaine Baer LPN - 01/07/2024 7:50 AM EDT Libby Florentino ASHLEY to Naya Brown LPN [facility] Pfc Pool/Class AN 12/23/23 10:20 AM Called [...] See referral message * Telephone Encounter - Germaine Baer LPN - 12/12/2023 11:31 AM EDT Pt has upcoming apt.Please reauth Prolia. documented in this encounter Plan of Treatment Upcoming Encounters Date Type Department Care Team (Late st Contact Info) Description 02/06/2024 5:30 PM EST [facility] [place] [address] Olinda Briggs, CHRISTINA [address] [facility] [place] [address] 02/17/2024 11:10 AM EST Laboratory Laboratory [address] [place] [phone] [place], Lab [address] [place] [address] 02/21/2024 10:30 AM EST Nurse Only Rheumatology [address] [place] [address] [place], Nurse Rheum [address] [place] [phone] 02/25/2024 2:30 PM EST Office Visit Hematology/Oncology [facility] [address] [place] [phone] Arianna Szymanski MD [address] [place] [address] 03/18/2024 2:15 PM EST Office Visit Ophthalmology, [facility] [address] [place] [address] Pedro Tinsley, DO [address] [place] [address] 03/30/2024 11:00 AM EST [facility] Visit [facility] [place], [facility] [address] [place] [address] Leon Live PA-C [address] [place] [address] 05/22/2024 3:45 PM EST Office Visit Dermatology [facility] [address] [place] [address] Guy Trivedi MD [address] [place] [address] 06/25/2024 9:00 AM EDT Office Visit Family Medicine [address] [place] [phone] Rafa Bergman MD [address] [place] [address] [place] [address] 07/21/2024 10:00 AM EDT Imaging Radiology, [address] [place] [address] 09/04/2024 1:00 PM EDT Office Visit Rheumatology [address] [place] [phone] Deangelo Holley MD [address] [place] [address] [place] [address] Health Maintenance Due Date Last Done Comments [...] Additional history exists CKD HGB USE SMARTSET 85987 06/26/202406/26, 06/27/2023, 04/26/2023, Additional history exists CKD PHOS USE SMARTSET 41436 06/26/202405/31, 04/19/2021, 11/27/2019, Additional history exists DXA [...] D LEVEL ONCE IN A LIFETIME-USE SMARTSET# 95804 Completed 06/27/2023, 11/06/2021, 12/28/2019, Additional history exists HPV (Gardasil) Vaccine Aged Out No lo nger eligible based on patient's age to complete this topic MENINGOCOCCAL (MENACTRA/MENVEO) Aged Out No longer eligible based on patient's age to complete this topic documented as of this encounter Medical Devices Implanted Type Area Steel Unloader Device Identifier Shelf Expiration Date Model / Serial / Lot Lens Intraoc 21.5 - [id number] - [id number] Implanted:Qty: 1 on 05/12/2019 by Yury Brady MD at OR [facility] Right: Eye [employer]OM[employer] 12/30/2023 [id number] / [id number] / [id number] Lens Intraoc 22.5 - [id number] - [id number] Implanted:Qty: 1 on 04/05/2020 by Yury Brady MD at OR [facility] Left: Eye [employer]CH [employer] LOMB 09/28/2024 [id number] / [id number] / [id number] documented as of this encounter Advance Directives Documents on File Type Date Recorded Patient Circular Sawyer Helper Expl anation Advance Directives and Living [...] Agen t (per Health Care Power of Hse Manager document) Guille Urban Adult Child Health Care Agen t (per Health Care Power of Hse Manager document) Care Teams Ironing Pleater Relationship Specialty Start Date End Date Rafa Bergman MD [address] [place] [address] [place] [address] PCP - General Family Medicine 04/19/21 documented as of this encounter
--- OUTSIDE RECORDS SUMMARY | 2024-07-24 00:19 | External Medical Summary | Summary of Care ---
Author Name Unknown Organization [facility] [address] [facility] [address] Phone [phone] Care Team Providers Care Talent Solutions Manager Name Role Phone Rafa Bergman MD Primary Care Provide r Encounter Details Date Type Department Care Team (Late st Contact Info) Description 02/06/2024 5:30 PM EST [facility] [address] [place] [address] Olinda Briggs, CHRISTINA [address] [place] [address] Allergies Active Allergy Reactions Criticality Noted Date Comments Colchicine Diarrhea 06/16/2018 Daptomycin 01/05/2015 Shortness of breath Imipenem Edema airway High 01/05/2015 Metoprolol Low 01/23/2021 Other reaction(s): fatigue Zoledronic Acid 04/24/2012 Myalgias, fever, chills, vomiting x 2 days Sulfa Antibiotics 12/22/2002 Bactrim--itchy all over, eyes swollen documented as of this encounter (statuses as of 02/10/2024) Medications ASPIRIN 81 MG PO TABS Take [...] as needed for Constipation. 3 Active Nystatin 198488 UNIT/GM External Powder (Nystop)Indicatio ns:Rash and nonspecific [...] goal LDL below 70,Coronary artery disease involving [place] coronary artery of [place] heart without angina pectoris TAKE ONE TABLET BY MOUTH IN THE MORNING 90 Tablet 3 4 Active Propranolol HCl 10 MG Oral Tablet (Inderal)Indicati ons:Sinus tachycardia,Tachy -chintan syndrome (HCC),Coronary artery disease involving [place] coronary artery of [place] heart without angina pectoris,Presence of cardiac pacemaker,Palpita [...] until gone.. 7 Tablet 4 02/09/20 24 Hospital, Clinic, or Other Facility Administered Medication [...] as of this encounter (statuses as of 02/10/2024) Active Problems Problem Noted Date Diagnosed Date Nevus of 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 History of NC (myocardial infarction) 11/27/2022 History of pulmonary embolism [...] S/P angioplasty with stent 11/27/2018 Atherosclerosis of [place] co ronary artery of [place] heart without angina pectoris 07/08/2018 Overview [...] as of this encounter (statuses as of 02/10/2024) Resolved Problems Problem Noted Date Diagnosed Date Resolved Date Purulent endophthalmitis of right eye 01/03/2023 11/08/2023 Other pulmonary embolism wit h acute cor pulmonale 10/01/2022 04/26/2023 Overview (04/26/2023): history Medical home patient encounter 09/13/2022 11/08/2023 Atherosclerosis of coronary artery of [place] heart without angina pectoris 09/10/2022 10/31/2022 [...] filter 02/28/2015 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 11/2018 CKD (chronic kidney disease) stage 2, GFR 60-89 ml/min 03/12/2019 documented as of this encounter (statuses as of 02/10/2024) Immunizations Name Administration Dates Next Due COVID-19 [...] 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 Not on file 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 e [employer] 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 Not on file Not on file documented as of this encounter Last Filed Vital Signs Vital Sign Reading Time Taken Comments Blood Pressure 118/72 02/06/2024 5:08 PM EST Pulse 80 02/06/2024 5:08 PM EST Temperature 37 °C (98.6 °F) 02/06/2024 5:08 PM EST Respiratory Rate 18 02/06/2024 5:08 PM EST Oxygen Saturation 93% 02/06/2024 5:08 PM EST Inhaled Oxygen Concentration - - Weight - - Height - - Body Mass Index - - documented in this encounter Progress Notes * Olinda Briggs RN - 02/06/2024 4:45 PM EST Current Concerns: Patient seen for follow up Recently called [facility]- for persistent headache x 2 weeks/ sinus pain/pressure, chills. Prescribed Clindamycin- unable to tolerate GI symptoms- nausea/ diarrhea Taking Levaquin x 7 days- has 2 more days Symptoms have subsided. Discussion with patient- she is concerned that maybe she is suffering with migraines. TT to Leon Live PA-C- patient to discuss with PCP with above concerns. VS wnl Lungs clear bilaterally Sob with exertion No LE edema noted Voiding without difficulty Bowels wnl- per report Appetite good Taking fluids Denies discomfort. Physical Exam: Physical Exam Constitutional: Appearance: Normal appearance. Cardiovascular: Rate and Rhythm: Normal rate. Rhythm irregular. Pulses: Normal pulses. Pulmonary: Effort: Pulmonary effort [...] focal deficit present. Mental Status: She is oriented to person, place, and time. Psychiatric: Mood and Affect: Mood normal. Behavior: Behavior normal. Review of Systems: Review of Systems Constitutional: Negative. HENT: Negative. Respiratory: Negative. Cardiovascular: Negative. Gastrointestinal: Negative. Genitourinary: Negative. Musculoskeletal: Negative. Skin: Negative. Neurological: Negative. Hematological: Negative. Psychiatric/Behavioral: Negative. Care Plan Goal Progress: Patient will demonstrate optimal balance of rest/activity. (Progressing) Start: 02/10/24 Expected End: 06/09/24 Patient will maintain management & treatment regimen (Progressing) Start: 02/10/24 Expected End: 06/09/24 Orders Placed: No orders of the defined types were placed in this encounter. Medications Given: Care Gaps: Care Gaps Care gaps closed this contact:: Education (02/10/241649) Type of education: Clinical/disease (02/10/241649) documented in this encounter Plan of Treatment Upcoming Encounters Date Type Department Care Team (Late st Contact Info) Description 02/17/2024 11:10 AM EST Laboratory Laboratory [address] [place] [phone] [place], Lab [address] [place] [address] 02/21/2024 10:30 AM EST Nurse Only Rheumatology [address] [place] [phone] [place], Nurse [address] [place] [address] 02/25/2024 2:30 PM EST Office Visit Hematology/Oncology [facility] [place] [address] [place] [phone] Arianna Szymanski MD [address] [place] [address] 03/18/2024 2:15 PM EST Office Visit Ophthalmology, [facility] [address] [place] [address] Pedro Tinsley, [address] [place] [address] 03/19/2024 4:00 PM EST [facility] [address] [place] [address] Olinda Briggs, RN [address] [place] [address] 03/30/2024 11:00 AM EST [facility] [address] [place] [address] Leon Live PA-C [facility] [place] [address] 05/22/2024 3:45 PM EST Office Visit Dermatology [facility] [address] [facility] [place] [address] Guy Trivedi MD [address] [facility] [place] [address] 06/25/2024 9:00 AM EDT Office Visit Family Medicine [address] [place] [phone] Rafa Bergman MD [address] [place] [address] [place] [address] 07/21/2024 10:00 AM EDT Imaging Radiology, [address] [place] [address] 09/04/2024 1:00 PM EDT Office Visit Rheumatology [address] [place] [phone] Deangelo Holley MD [address] [place] [address] [place] [address] Health Maintenance Due Date Last Done Comments [...] Additional history exists CKD HGB USE SMARTSET 31639 06/26/202406/26, 06/27/2023, 04/26/2023, Additional history exists CKD PHOS USE SMARTSET 25778 06/26/202405/31, 04/19/2021, 11/27/2019, Additional history exists DXA [...] D LEVEL ONCE IN A LIFETIME-USE SMARTSET# 71842 Completed 06/27/2023, 11/06/2021, 12/28/2019, Additional history exists HPV (Gardasil) Vaccine Aged Out No lo nger eligible based on patient's age to complete this topic MENINGOCOCCAL (MENACTRA/MENVEO) Aged Out No longer eligible based on patient's age to complete this topic documented as of this encounter Medical Devices Implanted Type Area Convention Services Director Device Identifier Shelf Expiration Date Model / Serial / Lot Lens Intraoc 21.5 - [id number] - [id number] Implanted:Qty: 1 on 05/12/2019 by Yury Brady MD at OR [facility] Right: Eye [employer] 12/30/2023 [id number] / [id number] / [id number] Lens Intraoc 22.5 - [id number] - [id number] Implanted:Qty: 1 on 04/05/2020 by Yury Brady MD at OR [facility] Left: Eye [employer] 09/28/2024 [id number] / [id number] / [id number] documented as of this encounter Advance Directives Documents on File Type Date Recorded Patient Director Sales Support Expl anation Advance Directives and Living Will [...] Agen t (per Health Care Power of Circuit Manager document) Guille Urban Adult Child Health Care Agen t (per Health Care Power of Circuit Manager document) Care Teams Talent Solutions Manager Relationship Specialty Start Date End Date Rafa Bergman MD [address] [place] [address] [place] [phone] PCP - General Family Medicine 04/19/21 documented as of this encounter
--- OUTSIDE RECORDS SUMMARY | 2024-07-24 00:19 | External Medical Summary | Summary of Care ---
Author Name Unknown Organization [facility] Address [address] [facility] [place] [address] Phone [phone] Care Team Providers Care Jaw Skinner Name Role Phone Rafa Bergman MD Primary Care Provide r Reason for Visit * Reason Onset Date Comments Medication Pre-auth 02/04/2024 Encounter Details Date Type Department Care Team (Late st Contact Info) Description 02/04/2024 Telephone Ophthalmology, [facility] [address] [place] [address] Pedro Tinsley DO [address] [place] [address] Medication Pre-auth Allergies Active Allergy Reactions Criticality Noted Date [...] as needed for Constipation. 03/26/2023 Active Nystatin 027119 UNIT/GM External Powder (Nystop)Indications :Rash and nonspecific [...] goal LDL below 70,Coronary artery disease involving [place] coronary artery of [place] heart without angina pectoris TAKE ONE TABLET BY MOUTH IN THE MORNING 90 Tablet 3 01/10/2024 Active Propranolol HCl 10 MG Oral Tablet (Inderal)Indication s:Sinus tachycardia,Tachy-b rady syndrome (HCC),Coronary artery disease involving [place] coronary artery of [place] heart without angina pectoris,Presence of cardiac pacemaker,Palpitati [...] S/P angioplasty with stent 11/27/2018 Atherosclerosis of [place] co ronary artery of [place] heart without angina pectoris 07/08/2018 Overview: history of NSTEMI status post AMIE to LAD (culprit) and RCA, 04/28/2018 Last Assessment & Plan: Cardiac rehab at [facility] 2x week Arthritis of left ankle [...] 09/13/2022 11/08/2023 Atherosclerosis of coronary artery of [place] heart without angina pectoris 09/10/2022 10/31/2022 Hypothyroidism [...] filter 02/28/2015 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 11/2018 CKD [...] Description 02/06/2024 5:30 PM EST Home Visit [facility] [address] [place] [address] Olnida Briggs, CHRISTINA [address] [place] [address] 02/17/2024 11:10 AM EST Laboratory Laboratory [address] [place] [phone] [address] [place] [address] 02/21/2024 10:30 AM EST Nurse Only Rheumatology [address] [place] [phone] [place], Nurse Rheum [address] [place] [phone] 02/25/2024 2:30 PM EST Office Visit Hematology/Oncology [facility] [address] [facility] [place] [phone] Arianna Szymanski MD [address] [facility] [place] [address] 03/18/2024 2:15 PM EST Office Visit Ophthalmology, [facility] [address] [place] [address] Pedro Tinsley, [address] [place] [address] 03/30/2024 11:00 AM EST [facility] [address] [place] [address] Leon Live PA-C [address] [place] [address] 05/22/2024 3:45 PM EST Office Visit Dermatology [facility] [address] [place] [address] Guy Trivedi MD [address] [place] [address] 06/25/2024 9:00 AM EDT Office Visit Family Medicine [address] [place] [phone] Rafa Bergman MD [address] [place] [address] [place] [address] 07/21/2024 10:00 AM EDT Imaging Radiology, [facility] [address] [place] [address] 07/27/2024 10:00 AM EDT Office Visit Rheumatology [address] [place] [phone] Deangelo Holley MD [address] [place] [address] Health Maintenance Due Date Last Done Comments [...] Additional history exists CKD HGB USE SMARTSET 66938 06/26/202406/26, 06/27/2023, 04/26/2023, Additional history exists CKD PHOS USE SMARTSET 21290 06/26/202405/31, 04/19/2021, 11/27/2019, Additional history exists DXA [...] D LEVEL ONCE IN A LIFETIME-USE SMARTSET# 84028 Completed 06/27/2023, 11/06/2021, 12/28/2019, Additional history exists HPV (Gardasil) Vaccine Aged Out No lo nger eligible based on patient's age to complete this topic MENINGOCOCCAL (MENACTRA/MENVEO) Aged Out No longer eligible based on patient's age to complete this topic documented as of this encounter Medical Devices Implanted Type Area Iron Launder Operator Device Identifier Shelf Expiration Date Model / Serial / Lot Lens Intraoc 21.5 - [id number] - [id number] Implanted:Qty: 1 on 05/12/2019 by Yury Brady MD at [facility] Right: Eye [employer] 12/30/2023 [id number] / [id number] / [id number] Lens Intraoc 22.5 - [id number] - [id number] Implanted:Qty: 1 on 04/05/2020 by Yury Brady MD at OR [facility] Left: Eye [employer] 09/28/2024 [id number] / [id number] / [id number] documented as of this encounter Advance Directives Documents on File Type Date Recorded Patient Manager Business Process Expl anation Advance Directives and Living Will [...] Agen t (per Health Care Power of Fiberline Supervisor document) Guille Urban Adult Child Health Care Agen t (per Health Care Power of Fiberline Supervisor document) Care Teams Jaw Skinner Relationship Specialty Start Date End Date Rafa Bergman MD [address] [place] [address] [place] [address] PCP - General Family Medicine 04/19/21 documented as of this encounter
--- OUTSIDE RECORDS SUMMARY | 2024-07-24 00:20 | External Medical Summary | Summary of Care ---
Author Name Unknown Organization [facility] Address [address] [facility] [place] [address] Phone [phone] Care Team Providers Care Delivery Crew Member Name Role Phone Rafa Bergman MD Primary Care Provide r Reason for Visit * Reason Comments Follow Up 4-6 week f/u; pt rep orts OD blurry since SCOTT * Precert (Routine) - Authorized Specialty Diagnoses / Procedures Referred By Ethan nicloe Referred To Contact Ophthalmology Diagnoses 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 Procedures INJECTION OF EYE DRUG AFLIBERCEPT IO SOLN, PER 1MG, INJ Pedro Tinsley DO [address] [place] [address] Referral ID Status Reason Start Date Expiration Date V isits Requested Visits Authorized [id number] Authorized Precert 11/25/2018 03/31/2099 99 99 Encounter Details Date Type Department Care Team (Late st Contact Info) Description 02/04/2024 11:15 AM EST Office Visit Ophthalmology, [facility] [address] [place] [address] Pedro Tinsley DO [address] [place] [address] 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 03/26/2023 Active Nystatin 547422 UNIT/GM External Powder (Nystop)Indications :Rash and nonspecific [...] goal LDL below 70,Coronary artery disease involving [place] coronary artery of [place] heart without angina pectoris TAKE ONE TABLET BY MOUTH IN THE MORNING 90 Tablet 3 01/10/2024 Active Propranolol HCl 10 MG Oral Tablet (Inderal)Indication s:Sinus tachycardia,Tachy-b rady syndrome (HCC),Coronary artery disease involving [place] coronary artery of [place] heart without angina pectoris,Presence of cardiac [...] S/P angioplasty with stent 11/27/2018 Atherosclerosis of [place] co ronary artery of [place] heart without angina pectoris 07/08/2018 Overview: history of NSTEMI status post AMIE to LAD (culprit) and RCA, 04/28/2018 Last Assessment & Plan: Cardiac rehab at [facility] 2x week Arthritis of left ankle 11/06/2017 [...] 09/13/2022 11/08/2023 Atherosclerosis of coronary artery of [place] heart without angina pectoris 09/10/2022 10/31/2022 [...] filter 02/28/2015 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 Last Office Visit: 12/16/2023 (in office), Visit date not found (telemedicine) Patient currently states 4-6 week f/u; pt reports OD blurry since SCOTT. Pt reports vision been blurry for last month pt Doctor thinks might be some of her BP meds Are you diabetic? No Do you drive? yes OCT image(s) of right eye acquired and filed/scanned into chart. Base Eye Exam Visual Acuity (Snellen - Linear) Right Left Dist sc 20/150 -1 20/40 -1 Dist ph sc NI NI Tonometry (Tonopen, 11:12 AM) Right Left Pressure 13 15 Pupils Dark Shape React APD Right 4 Round Sluggish None Left 4 Round Sluggish None Visual Toribio (Counting fingers) Right Left Full Full Extraocular Movement Right Left Full, Ortho Full, Ortho Neuro/Psych Oriented x3: Yes Mood/Affect: Normal Dilation Both eyes: 0.5% Proparacaine @ 11:10 AM Dilation #2 Right eye: 1.0% Mydriacyl, 2.5% Phenylephrine @ 11:11 AM Dilation #3 Right eye: 1.0% Mydriacyl, 2.5% Phenylephrine @ 11:13 AM Dilation Comments Patient cautioned that effects [...] Interpretation: OD: recurrent resolved irf - worse 279um, prior improved 388um prior worse [...] 05/07/14, 03/30/14, 02/12/14, 01/08/14, 12/02/13) -s/p EYLEA (12/16/23, 11/07/23, 09/11/23, 08/01/23, 06/14/23, 04/16/23, 02/13/23, 11/13/22#--endophthalmitis, 09/19/22, 07/31/22, 06/12/22, 04/18/22, 08/29/21, 07/13/21, 03/29/21, , --, 10-06-, 08-04-, 06/02/20, 03-22-20, 01-20-, 10/29/19, 08-12-20, 05/27/19, 11-25-19, 08-21-19, 06-12-19, 04-03-18, 18, 11/28/17, 18, 18, 05-17-2017, 03-21-17, 01-25-17, 17, 17, 07/27/16, 06-01-17, 03-16-2016, 12/06/15, 10/21/15) - worse at 9 and 10 and 12 weeks was good in past at 12-14 weeks - best at 6-8 weeks in past - 7 weeks; has gone 7 weeks -recurrent fluid -get approval for Vabysmo 2. h/o Endophthalmitis OD -s/p Eylea 11/13/22 s/p ceftaz+vanco 11/17/22 -cx: coagulase negative staph -tapered off PF bid x 7 days then qd x 7 days, then stop -finished levaquin 500mg 7 day course -resolved -PPV 01/30/23--Dr. Gagnon 3. Small Choroidal Nevus OD -low risk -monitor F/u 4-6 weeks, OCT OD Pedro Tinsley, TIMEOUT PROCEDURE: [...] documented in this encounter Nursing Notes * Sookne, Zeinab M, RN - 02/04/2024 11:37 AM EST Rehana Moran to receive 50 Eylea 2mg Injection of the Right eye. Correct eye confirmed with patient and marked by Pedro Tinsley DO Eylea 2mg lot # [id number] Exp. Date: 10/2024 * Mariposa Mathur MED ASSIST - 02/04/2024 11:06 AM EST Rehana Moran is a 79 year old year old female who presents for BRVO OD. Last Office Visit: 12/16/2023 (in office), Visit date not found (telemedicine) Patient currently states 4-6 week f/u; pt reports OD blurry since SCOTT. Pt reports vision been blurry for last month pt Doctor thinks might be some of her BP meds Are you diabetic? No Do you drive? yes OCT image(s) of right eye acquired and filed/scanned into chart. documented in this encounter Plan of Treatment Upcoming Encounters Date Type Department Care Team (Late st Contact Info) Description 02/06/2024 5:30 PM EST Home Visit [facility] [address] [facility] [place] [address] Olinda Briggs RN [address] [facility] [place] [address] 02/17/2024 11:10 AM EST Laboratory Laboratory [address] [place] [phone] [place] [id number] 02/21/2024 10:30 AM EST Nurse Only Rheumatology [address] [place] [phone] [place], Nurse [address] [place] [phone] 02/25/2024 2:30 PM EST Office Visit Hematology/Oncology [facility] [address] [place] [phone] Arianna Szymanski MD [address] [place] [address] 03/30/2024 11:00 AM EST Home Visit isinger at [facility] [address] [place] [address] Leon Live PA-C [address] [place] [address] 05/22/2024 3:45 PM EST Office Visit Dermatology [facility] [address] [place] [address] Guy Trivedi MD [address] [place] [address] 06/25/2024 9:00 AM EDT Office Visit Family Medicine [address] [place] [phone] Rafa Bergman MD [address] [place] [address] [place] [address] 07/21/2024 10:00 AM EDT Imaging Radiology, [address] [place] [address] 07/27/2024 10:00 AM EDT Office Visit Rheumatology [address] [place] [phone] Deangelo Holely MD [address] [facility] [place] [address] Scheduled Orders Name Type Priority Associated Diagnoses Orde r Schedule RETINA SCAN DIAGNOSTIC IMAGE, POSTERIOR Procedures Routine 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 Ordered: 02/04/2024 Health Maintenance Due Date Last Done Comments [...] Additional history exists CKD HGB USE SMARTSET 95841 06/26/202406/26, 06/27/2023, 04/26/2023, Additional history exists CKD PHOS USE SMARTSET 60626 06/26/202405/31, 04/19/2021, 11/27/2019, Additional history exists DXA [...] D LEVEL ONCE IN A LIFETIME-USE SMARTSET# 82565 Completed 06/27/2023, 11/06/2021, 12/28/2019, Additional history exists HPV (Gardasil) Vaccine Aged Out No lo nger eligible based on patient's age to complete this topic MENINGOCOCCAL (MENACTRA/MENVEO) Aged Out No longer eligible based on patient's age to complete this topic documented as of this encounter Medical Devices Implanted Type Area Ornamenter Device Identifier Shelf Expiration Date Model / Serial / Lot Lens Intraoc 21.5 - [id number] - [id number] Implanted:Qty: 1 on 05/12/2019 by Yury Brady MD at OR [facility] Right: Eye [employer] 12/30/2023 [id number] / [id number] / [id number] Lens Intraoc 22.5 - [id number] - [id number] Implanted:Qty: 1 on 04/05/2020 by Yury Brady MD at OR [facility] Left: Eye [employer]OMB 09/28/2024 [id number] / [id number] / [id number] documented as of this encounter Visit Diagnoses Diagnosis 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- Primary 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 documented in this encounter Administered Medications Active Administered Medications - up to 3 most recent administrations Medication Order MAR Action Action Date Dose Rate Site Aflibercept (Eylea) intraviteal prefilled syringe 2 mg 2 mg, Intravitreal, PRN Other, Starting on Sat11/07/23 at 1428, Until Sat11/06/24 at 1427, For 365 days Given 02/04/2024 11:38 AM EST 2 mg Eye Right Given 12/16/2023 1:16 PM EDT 2 mg Ey e Right Given 11/07/2023 2:41 PM EDT 2 mg Ey e Right ROPivacaine (Naropin) inj 1.5 mg 1.5 mg, Injection, PRN Other, Starting on Karime 11/07/23 at 1428, Until 11/06/24 at 1427, For 365 days Given 02/04/2024 11:38 AM EST 1.5 mg Eye Right Given 12/16/2023 1:15 PM EDT 1.5 mg Ey e Right Given 11/07/2023 2:40 PM EDT 1.5 mg Ey e Right documented in this encounter Advance Directives Documents on File Type Date Recorded Patient Gear Milling Machine Set Up Operator Expl anation Advance Directives and Living [...] t (per Health Care Power of Sports Equipment Racker document) Guille Urban Adult Child Health Care Agen t (per Health Care Power of Sports Equipment Racker document) Care Teams Delivery Crew Member Relationship Specialty Start Date End Date Rafa Bergman MD [address] [place] [address] [place] [phone] PCP - General Family Medicine 04/19/21 documented as of this encounter
--- OUTSIDE RECORDS SUMMARY | 2024-07-24 00:20 | External Medical Summary | Summary of Care ---
Author Name Unknown Organization [facility] [address] [facility] [address] Phone [phone] Care Team Providers Care Office Agent Name Role Phone Rafa Bergman MD Primary Care Provide r Reason for Visit * Reason Onset Date Comments [facility]: Maintenance 01/30/2024 Encounter Details Date Type Department Care Team (Late st Contact Info) Description 01/30/2024 10:45 AM EDT Scheduled Telephone [facility] [place] [address] [place] [address] Coordinator, [facility] [place] [address] [place] [address] Allergies Active Allergy Reactions Criticality Noted Date Comments Colchicine Diarrhea 06/16/2018 Daptomycin 01/05/2015 Shortness of breath Imipenem Edema airway High 01/05/2015 Metoprolol Low 01/23/2021 Other reaction(s): fatigue Zoledronic Acid 04/24/2012 Myalgias, fever, chills, vomiting x 2 days Sulfa Antibiotics 12/22/2002 Bactrim--itchy all over, eyes swollen documented as of this encounter (statuses as of 01/30/2024) Medications Medication Sig Dispensed Refills Start Date [...] as needed for Constipation. 03/26/2023 Active Nystatin 675204 UNIT/GM External Powder (Nystop)Indications :Rash and nonspecific [...] goal LDL below 70,Coronary artery disease involving [place] coronary artery of [place] heart without angina pectoris TAKE ONE TABLET BY MOUTH IN THE MORNING 90 Tablet 3 01/10/2024 Active Propranolol HCl 10 MG Oral Tablet (Inderal)Indication s:Sinus tachycardia,Tachy-b rady syndrome (HCC),Coronary artery disease involving [place] coronary artery of [place] heart without angina pectoris,Presence of cardiac pacemaker,Palpitati [...] at bedtime. 90 Tablet 3 01/24/2024 Active Clindamycin HCl 300 MG Oral Capsule Take 1 Capsule by mouth in the morning and 1 Capsule at noon and 1 Capsule in the evening and 1 Capsule before bedtime. Do all this for 10 days. 40 Capsule 01/28/2024 02/07/2024 Active Hospital, Clinic, or Other Facility Administered [...] as of this encounter (statuses as of 01/30/2024) Active Problems Problem Noted Date Diagnosed Date Nevus of 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 History of VA (myocardial infarction) 11/27/2022 History of pulmonary embolism [...] S/P angioplasty with stent 11/27/2018 Atherosclerosis of [place] co ronary artery of [place] heart without angina pectoris 07/08/2018 Overview: history of NSTEMI status post MAIE to LAD (culprit) and RCA, 04/28/2018 Last Assessment & Plan: Cardiac rehab at [facility] 2x week Arthritis of left ankle [...] as of this encounter (statuses as of 01/30/2024) Resolved Problems Problem Noted Date Diagnosed Date Resolved Date Purulent endophthalmitis of right eye 01/03/2023 11/08/2023 Other pulmonary embolism wit h acute cor pulmonale 10/01/2022 04/26/2023 Overview: history Medical home patient encounter 09/13/2022 11/08/2023 Atherosclerosis of coronary artery of [place] heart without angina pectoris 09/10/2022 10/31/2022 Hypothyroidism [...] filter 02/28/2015 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 11/2018 CKD (chronic kidney disease) stage 2, GFR 60-89 ml/min 03/12/2019 documented as of this encounter (statuses as of 01/30/2024) Immunizations Name Administration Dates Next Due COVID-19 [...] Telephone Encounter - Brunilda Higgins RN - 01/30/2024 8:54 AM EDT [facility] Telephonic Nurse Follow-Up Call [facility] Subprogram: Focused Care Management (3-9 months) Follow Up Call Type: 48 hour follow up Acute issue requiring follow-up call: Other: sinus infection Objective: 01/20/2024 12:19 PM 01/20/2024 12:18 PM 12/04/2023 12:30 PM 12/03/2023 9:24 AM 10/28/2023 1:57 PM VITALS ACROSS ENCOUNTERS BP 100/70 116/78 100/56 102/70 120/78 Pulse 78 68 88 68 Weight 73.1 kg 72.6 kg BMI 28.56 kg/m2 28.34 kg/m2 Remote Patient Monitoring: NONE Oxygen Needs: NO supplemental oxygen needs identified DME Needs: NO DME needs identified Medications: New medication(s) added: Clindmycin 300 mg QID x 10 days, beginning 01/27 Subjective: Condition Status: Improvement in symptoms but not at baseline Current Concerns: Pt with 2 week intermittent sinus infection symptoms: MAN, chills, facial pressure, sore throat, yellow nasal discharge. Pt started clindamycin 01/27. As of yesterday 01/28, pt reported no change in symptoms. Spoke with pt, reports she rec'd her abx yesterday so today would be day 2, not day 3. She is already noting a slight improvement in symptoms, feels some of her sinus congestion is beginning to loosen. Pt states if she feels better enough by tomorrow she will be going out of town with her son. Encouraged pt to ensure completion of abx as prescribed, tylenol OTC for any fever/pain, nasal saline/neti pot, and staying well hydrated. Pt verbalized understanding. Disposition: Issue resolved. All appropriate follow up scheduled. Future Visits Scheduled: Future Appointments-next 60 days Date/Time Provider Specialty Dept Phone 01/29/2024 4:00 PM Coordinator, [facility] [phone] 01/30/2024 10:45 AM Coordinator, [facility] [phone] 02/04/2024 11:15 AM Pedro Tinsley, DO Ophthalmology [phone] 02/06/2024 8:00 AM (Arrive by 7:45 AM) Rafa Bergman MD Family Medicine [phone] 02/06/2024 5:30 PM Olinda Briggs RN [facility] [phone] 02/17/2024 11:10 AM Cielo Marvin Md Laboratory [phone] 02/25/2024 2:30 PM (Arrive by 2:15 PM) Arianna Szymanski MD Hematology Oncology [phone] 03/30/2024 11:00 AM Leon Live PA-C [facility] [phone] 05/22/2024 3:45 PM (Arrive by 3:30 PM) Guy Trivedi MD Dermatology [phone] 06/25/2024 9:00 AM (Arrive by 8:45 AM) Rafa Bergman MD Family Medicine [phone] 07/21/2024 10:00 AM [facility] Radiology [phone] 07/27/2024 10:00 AM (Arrive by 9:45 AM) Deangelo Holley MD Rheumatology [phone] Brunilda Higgins, CHRISTINA documented in this encounter Plan of Treatment Upcoming Encounters Date Type Department Care Team (Late st Contact Info) Description 02/04/2024 11:15 AM EST Office Visit Ophthalmology, [facility] [address] [place] [address] Pedro Tinsley DO [address] [place] [address] 02/06/2024 8:00 AM EST Office Visit Family Medicine [address] [place] [phone] Rafa Bergman MD [address] [place] [address] [place] [address] 02/06/2024 5:30 PM EST Home Visit [facility] [address] [place] [address] Olinda Briggs RN [address] [place] [address] 02/17/2024 11:10 AM EST Laboratory Laboratory [address] [place] [phone] [address] [place] [address] 02/25/2024 2:30 PM EST Office Visit Hematology/Oncology [facility] [place] [address] [facility] [place] [phone] Arianna Szymanski MD [address] [place] [address] 03/30/2024 11:00 AM EST Home Visit [facility], [facility] [address] [place] [address] Leon Live PA-C [address] [place] [address] 05/22/2024 3:45 PM EST Office Visit Dermatology [facility] [address] [place] [address] Guy Trivedi MD [address] [place] [address] 06/25/2024 9:00 AM EDT Office Visit Family Medicine [address] [place] [phone] Rafa Bergman MD [address] [place] [address] [place] [address] 07/21/2024 10:00 AM EDT Imaging Radiology, [address] [place] [address] 07/27/2024 10:00 AM EDT Office Visit Rheumatology [address] [place] [phone] Deangelo Holley MD [address] [place] [address] [place] [address] Health Maintenance Due Date Last Done Comments [...] Additional history exists CKD HGB USE SMARTSET 24369 06/26/202406/26, 06/27/2023, 04/26/2023, Additional history exists CKD PHOS USE SMARTSET 18216 06/26/202405/31, 04/19/2021, 11/27/2019, Additional history exists DXA [...] D LEVEL ONCE IN A LIFETIME-USE SMARTSET# 21617 Completed 06/27/2023, 11/06/2021, 12/28/2019, Additional history exists HPV (Gardasil) Vaccine Aged Out No lo nger eligible based on patient's age to complete this topic MENINGOCOCCAL (MENACTRA/MENVEO) Aged Out No longer eligible based on patient's age to complete this topic documented as of this encounter Medical Devices Implanted Type Area Oncology Rep Specialist Device Identifier Shelf Expiration Date Model / Serial / Lot Lens Intraoc 21.5 - [id number] - [id number] Implanted:Qty: 1 on 05/12/2019 by Yury Brady MD at OR [facility] Right: Eye [employer] 12/30/2023 [id number] / [id number] / [id number] Lens Intraoc 22.5 - [id number] - [id number] Implanted:Qty: 1 on 04/05/2020 by Yury Brady MD at OR [facility] Left: Eye [employer]OMB 09/28/2024 [id number] / [id number] / [id number] documented as of this encounter Advance Directives Documents on File Type Date Recorded Patient Blood Bank Supervisor Expl anation Advance Directives and Living [...] Agen t (per Health Care Power of Rippler document) Guille Urban Adult Child Health Care Agen t (per Health Care Power of Rippler document) Care Teams Office Agent Relationship Specialty Start Date End Date Rafa Bergman MD [address] [place] [address] [place] [phone] PCP - General Family Medicine 04/19/21 documented as of this encounter
--- OUTSIDE RECORDS SUMMARY | 2024-07-24 00:20 | External Medical Summary | Summary of Care ---
Author Name Unknown Organization [facility] Address [address] [place] [address] Phone [phone] Care Team Providers Care Gas Engine Performance Engineer Name Role Phone Rafa Bergman MD Primary Care Provide r Reason for Visit * Reason Onset Date Comments Sinusitis 02/02/2024 Encounter Details Date Type Department Care Team (Late st Contact Info) Description 02/02/2024 Telephone Family Practice [address] [place] [address] [address] [place] [address] Jef Archer, [address] [place] [address] Sinusitis Allergies Active Allergy Reactions Criticality Noted Date Comments Colchicine Diarrhea 06/16/2018 Daptomycin 01/05/2015 Shortness of breath Imipenem Edema airway High 01/05/2015 Metoprolol Low 01/23/2021 Other reaction(s): fatigue Zoledronic Acid 04/24/2012 Myalgias, fever, chills, vomiting x 2 days Sulfa Antibiotics 12/22/2002 Bactrim--itchy all over, eyes swollen documented as of this encounter (statuses as of 02/02/2024) Medications Medication Sig Dispensed Refills Start Date [...] as needed for Constipation. 03/26/2023 Active Nystatin 254634 UNIT/GM External Powder (Nystop)Indications :Rash and nonspecific [...] goal LDL below 70,Coronary artery disease involving [place] coronary artery of [place] heart without angina pectoris TAKE ONE TABLET BY MOUTH IN THE MORNING 90 Tablet 3 01/10/2024 Active Propranolol HCl 10 MG Oral Tablet (Inderal)Indication s:Sinus tachycardia,Tachy-b rady syndrome (HCC),Coronary artery disease involving [place] coronary artery of [place] heart without angina pectoris,Presence of cardiac pacemaker,Palpitati [...] 10 days. 40 Capsule 01/28/2024 02/07/2024 Active levoFLOXacin 500 MG Oral Tablet (Levaquin) [...] as of this encounter (statuses as of 02/02/2024) Active Problems Problem Noted Date Diagnosed Date [...] of [place] heart without angina pectoris 07/08/2018 Overview: history of NSTEMI status post AMIE to LAD (culprit) and RCA, 04/28/2018 Last Assessment & Plan: Cardiac rehab at [facility] 2x week Arthritis of left ankle [...] as of this encounter (statuses as of 02/02/2024) Resolved Problems Problem Noted Date Diagnosed Date Resolved Date Purulent endophthalmitis of right eye 01/03/2023 11/08/2023 Other pulmonary embolism wit h acute cor pulmonale 10/01/2022 04/26/2023 Overview: history Medical home patient encounter 09/13/2022 11/08/2023 Atherosclerosis of coronary artery of [place] heart without angina pectoris 09/10/2022 10/31/2022 Hypothyroidism [...] filter 02/28/2015 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 (Household - for [...] encounter Miscellaneous Notes * Telephone Encounter - Jef Archer DO - 02/02/2024 11:13 AM EST Diarrhea w clinda for sinusitis Similar w Augmentin + allergy hx noted Will rx levaquin If diarrhea persist / worsens will need c. Diff ck * Telephone Encounter - Jef Archer DO - 02/02/2024 11:09 AM EST Diarrhea w Augnentin in pasyt Reoirts diarreha w clinadmycins Will rx levaqiun given allergy provide'if diarrreha persists / increaaes seh will need c diff ck documented in this encounter Plan of Treatment Upcoming Encounters Date Type Department Care Team (Late st Contact Info) Description 02/04/2024 9:30 AM EST Nurse Only Rheumatology [facility] [address] [place] [address] [place] [address] Pf, Nurse Rheum [address] [facility] [place] [address] 02/04/2024 11:15 AM EST Office Visit Ophthalmology, [facility] [address] [place] [address] Pedro Tinsley, DO [address] [place] [address] 02/06/2024 8:00 AM EST Office Visit Family Medicine [address] [place] [phone] Rafa Bergman MD [address] [place] [address] [place] [address] 02/06/2024 5:30 PM EST [facility] Visit [facility] [address] [place] [address] Olinda Briggs RN [address] [place] [address] 02/17/2024 11:10 AM EST Laboratory Laboratory [address] [place] [phone] [place], Lab [address] [place] [address] 02/25/2024 2:30 PM EST Office Visit Hematology/Oncology [facility] [address] [place] [phone] Arianna Szymanski MD [address] [place] [address] 03/30/2024 11:00 AM EST [facility] Visit [facility], [facility] [address] [place] [address] Leon Live PA-C [address] [place] [address] 05/22/2024 3:45 PM EST Office Visit Dermatology [facility] [address] [place] [address] Guy Trivedi MD 200 [facility] [place] [address] 06/25/2024 9:00 AM EDT Office Visit Family Medicine [address] [place] [phone] Rafa Bergman MD [address] [place] [address] [place] [address] 07/21/2024 10:00 AM EDT Imaging Radiology, [address] [place] [address] 07/27/2024 10:00 AM EDT Office Visit Rheumatology [address] [place] [phone] Deangelo Holley MD [address] [place] [address] [place] [address] Health Maintenance Due Date Last Done Comments [...] Additional history exists CKD HGB USE SMARTSET 24895 06/26/202406/26, 06/27/2023, 04/26/2023, Additional history exists CKD PHOS USE SMARTSET 98885 06/26/202405/31, 04/19/2021, 11/27/2019, Additional history exists DXA [...] D LEVEL ONCE IN A LIFETIME-USE SMARTSET# 53306 Completed 06/27/2023, 11/06/2021, 12/28/2019, Additional history exists HPV (Gardasil) Vaccine Aged Out No lo nger eligible based on patient's age to complete this topic MENINGOCOCCAL (MENACTRA/MENVEO) Aged Out No longer eligible based on patient's age to complete this topic documented as of this encounter Medical Devices Implanted Type Area Slat Basket Maker Machine Device Identifier Shelf Expiration Date Model / Serial / Lot Lens Intraoc 21.5 - [id number] - [id number] Implanted:Qty: 1 on 05/12/2019 by Yury Brady MD at OR [facility] Right: Eye [employer] LOMB 12/30/2023 [id number] / [id number] / [id number] Lens Intraoc 22.5 - [id number] - [id number] Implanted:Qty: 1 on 04/05/2020 by Yury Brady MD at OR [facility] Left: Eye BAUSCH & LOMB 09/28/2024 [id number] / [id number] / [id number] documented as of this encounter Advance Directives Documents on File Type Date Recorded Patient Blister Packing Machine Tender Expl anation Advance Directives and Living Will 03/11/2018 Krissy Ashcarrie Wilmar ADVANCE DIR ECTIVE * Full Code [...] Agen t (per Health Care Power of Nuclear Reactor Technician document) Guille Isaacncer Adult Child Health Care Agen t (per Health Care Power of Nuclear Reactor Technician document) Care Teams Gas Engine Performance Engineer Relationship Specialty Start Date End Date Rafa Bergman MD [address] [place] [address] [place] [phone] PCP - General Family Medicine 04/19/21 documented as of this encounter
--- OUTSIDE RECORDS SUMMARY | 2024-07-24 00:20 | External Medical Summary | Summary of Care ---
Author Name Unknown Organization [facility] Address [address] [facility] [place] [address] Phone [phone] Care Team Providers Care Account Leader Name Role Phone Rafa Bergman MD Primary Care Provide r Reason for Visit * Reason Onset Date Comments Medication Pre-auth 02/04/2024 Encounter Details Date Type Department Care Team (Late st Contact Info) Description 02/04/2024 Telephone Ophthalmology, [facility] [address] [place] [address] Pedro Tinsley DO [address] [place] [address] Medication Pre-auth Allergies Active Allergy Reactions Criticality [...] as needed for Constipation. 03/26/2023 Active Nystatin 509733 UNIT/GM External Powder (Nystop)Indications :Rash and nonspecific [...] LDL below 70,Coronary artery disease involving [place] coronary artery of [place] heart without angina pectoris TAKE ONE TABLET BY MOUTH IN THE MORNING 90 Tablet 3 01/10/2024 Active Propranolol HCl 10 MG Oral Tablet (Inderal)Indication s:Sinus tachycardia,Tachy-b rady syndrome (HCC),Coronary artery disease involving [place] coronary artery of [place] heart without angina pectoris,Presence of cardiac [...] 01/03/2023 History of CA (myocardial infarction) 11/27/2022 History of pulmonary embolism [...] angioplasty with stent 11/27/2018 Atherosclerosis of [place] co ronary artery of [place] heart without angina pectoris 07/08/2018 Overview: history of NSTEMI status post AMIE to LAD (culprit) and RCA, 04/28/2018 Last Assessment & Plan: Cardiac rehab at [facility] 2x week Arthritis of left ankle 11/06/2017 [...] 11/08/2023 Atherosclerosis of coronary artery of [place] heart without angina pectoris 09/10/2022 10/31/2022 [...] 02/28/2015 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 11/2018 [...] Description 02/06/2024 5:30 PM EST Home Visit [facility] [address] [place] [address] Olinda Briggs, CHRISTINA [address] [place] [address] 02/17/2024 11:10 AM EST Laboratory Laboratory [address] [place] [phone] [place] [address] 02/21/2024 10:30 AM EST Nurse Only Rheumatology [address] [place] [phone] [place], Nurse Rheum [address] [place] [address] 02/25/2024 2:30 PM EST Office Visit Hematology/Oncology [facility] 200 [facility] [place] [phone] Arianna Szymanski MD 200 [facility] [place] [address] 03/18/2024 2:15 PM EST Office Visit Ophthalmology, [facility] [address] [place] [address] Pedro Tinsley, [address] [place] [address] 03/30/2024 11:00 AM EST [facility] [address] [place] [address] Leon Live PA-C [address] [place] [address] 05/22/2024 3:45 PM EST Office Visit Dermatology [facility] 200 [facility] [place] [address] Guy Trivedi MD [address] [facility] [place] [address] 06/25/2024 9:00 AM EDT Office Visit Family Medicine [address] [place] [phone] Rafa Bergman MD [address] [place] [address] [place] [address] 07/21/2024 10:00 AM EDT Imaging Radiology, [facility] [address] [facility] [employer] [place] [address] 07/27/2024 10:00 AM EDT Office Visit Rheumatology [address] [place] [phone] Deangelo Holley MD [address] [place] [address] Health Maintenance Due Date Last Done Comments [...] Additional history exists CKD HGB USE SMARTSET 44368 06/26/202406/26, 06/27/2023, 04/26/2023, Additional history exists CKD PHOS USE SMARTSET 60357 06/26/202405/31, 04/19/2021, 11/27/2019, Additional history exists DXA [...] D LEVEL ONCE IN A LIFETIME-USE SMARTSET# 27933 Completed 06/27/2023, 11/06/2021, 12/28/2019, Additional history exists HPV (Gardasil) Vaccine Aged Out No lo nger eligible based on patient's age to complete this topic MENINGOCOCCAL (MENACTRA/MENVEO) Aged Out No longer eligible based on patient's age to complete this topic documented as of this encounter Medical Devices Implanted Type Area Emergency Services Director Device Identifier Shelf Expiration Date Model / Serial / Lot Lens Intraoc 21.5 - [id number] - [id number] Implanted:Qty: 1 on 05/12/2019 by Yury Brady MD at OR [facility] Right: Eye [employer] LOMB 12/30/2023 [id number] / [id number] / [id number] Lens Intraoc 22.5 - [id number] - [id number] Implanted:Qty: 1 on 04/05/2020 by Yury Brady MD at OR [facility] Left: Eye BAUSCH & LOMB 09/28/2024 [id number] / [id number] / [id number] documented as of this encounter Advance Directives Documents on File Type Date Recorded Patient Research Electrician Expl anation Advance Directives and Living [...] Agen t (per Health Care Power of Binder Fixer document) Guille Urban Adult Child Health Care Agen t (per Health Care Power of Binder Fixer document) Care Teams Account Leader Relationship Specialty Start Date End Date Rafa Bergman MD [address] [place] [address] [place] [address] PCP - General Family Medicine 04/19/21 documented as of this encounter
--- OUTSIDE RECORDS SUMMARY | 2024-07-24 00:20 | External Medical Summary | Summary of Care ---
Author Name Unknown Organization [facility] Address [address] [facility] [place] [address] Phone [phone] Care Team Providers Care Traveling Phlebotomist Name Role Phone Rafa Bergman MD Primary [...] Pedro Tinsley DO [address] [place] [address] Referral ID Status Reason Start Date Expiration Date V isits Requested Visits Authorized [id number] Authorized Precert 11/25/2018 03/31/2099 99 99 Encounter Details Date Type Department Care Team (Late st Contact Info) Description 02/04/2024 11:15 AM EST Office Visit Ophthalmology, [facility] [address] [place] [address] Pedro Tinsley DO [address] [place] [address] 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 03/26/2023 Active Nystatin 526271 UNIT/GM External Powder (Nystop)Indications :Rash and nonspecific [...] goal LDL below 70,Coronary artery disease involving [place] coronary artery of [place] heart without angina pectoris TAKE ONE TABLET BY MOUTH IN THE MORNING 90 Tablet 3 01/10/2024 Active Propranolol HCl 10 MG Oral Tablet (Inderal)Indication s:Sinus tachycardia,Tachy-b rady syndrome (HCC),Coronary artery disease involving [place] coronary artery of [place] heart without angina pectoris,Presence of cardiac pacemaker,Palpitati [...] S/P angioplasty with stent 11/27/2018 Atherosclerosis of [place] co ronary artery of [place] heart without angina pectoris 07/08/2018 Overview: history [...] 09/13/2022 11/08/2023 Atherosclerosis of coronary artery of [place] heart without angina pectoris 09/10/2022 10/31/2022 Hypothyroidism [...] filter 02/28/2015 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 Date: 10/2024 * Mariposa Mathur MED [...] Description 02/06/2024 5:30 PM EST Home Visit [facility] 132 [facility] [place] [address] Olinda Briggs RN 132 [facility] [place] [address] 02/17/2024 11:10 AM EST Laboratory Laboratory [address] [place] [phone] [place] [address] 02/21/2024 10:30 AM EST Nurse Only Rheumatology [address] [place] [phone] [place], Nurse [address] [place] [phone] 02/25/2024 2:30 PM EST Office Visit Hematology/Oncology [facility] [address] [place] [phone] Arianna Szymanski MD [address] [place] [address] 03/30/2024 11:00 AM EST Home Visit [facility] at [facility] [address] [place] [address] Leon Live PA-C [address] [place] [address] 05/22/2024 3:45 PM EST Office Visit Dermatology [facility] [address] [place] [address] Guy Trivedi MD [address] [place] [address] 06/25/2024 9:00 AM EDT Office Visit Family Medicine [address] [place] [phone] Rafa Bergman MD [address] [place] [address] [place] [address] 07/21/2024 10:00 AM EDT Imaging Radiology, [address] [place] [address] 07/27/2024 10:00 AM EDT Office Visit Rheumatology [address] [place] [phone] Deangelo Holley MD [address] [facility] [place] [address] Scheduled Orders Name Type Priority Associated Diagnoses [...] Additional history exists CKD HGB USE SMARTSET 30324 06/26/202406/26, 06/27/2023, 04/26/2023, Additional history exists CKD PHOS USE SMARTSET 29601 06/26/202405/31, 04/19/2021, 11/27/2019, Additional history exists DXA [...] D LEVEL ONCE IN A LIFETIME-USE SMARTSET# 51092 Completed 06/27/2023, 11/06/2021, 12/28/2019, Additional history exists HPV (Gardasil) Vaccine Aged Out No lo nger eligible based on patient's age to complete this topic MENINGOCOCCAL (MENACTRA/MENVEO) Aged Out No longer eligible based on patient's age to complete this topic documented as of this encounter Medical Devices Implanted Type Area Heat Treat Furnace Operator Device Identifier Shelf Expiration Date Model / Serial / Lot Lens Intraoc 21.5 - [id number] - [id number] Implanted:Qty: 1 on 05/12/2019 by Yury Brady MD at OR [facility] Right: Eye [employer]CH [employer] LOMB 12/30/2023 [id number] / [id number] / [id number] Lens Intraoc 22.5 - [id number] - [id number] Implanted:Qty: 1 on 04/05/2020 by Yury Brady MD at OR [facility] Left: Eye BAUSCH & LOMB 09/28/2024 [id number] / [id number] / [id number] documented as of this encounter Visit Diagnoses [...] Documents on File Type Date Recorded Patient Car Tester Expl anation Advance Directives and Living Will [...] Agen t (per Health Care Power of Cnc Specialist document) Guille Urban Adult Child Health Care Agen t (per Health Care Power of Cnc Specialist document) Care Teams Traveling Phlebotomist Relationship Specialty Start Date End Date Rafa Bergman MD [address] [place] [address] [place] [phone] PCP - General Family Medicine 04/19/21 documented as of this encounter
--- OUTSIDE RECORDS SUMMARY | 2024-07-24 00:20 | External Medical Summary | Summary of Care ---
Author Name Unknown Organization [facility] Address [address] [facility] [place] [address] Phone [phone] Care Team Providers Care Optical Laboratory Mechanic Name Role Phone Rafa Bergman MD [...] Pedro Tinsley DO [address] [place] [address] Referral ID Status Reason Start Date Expiration Date V isits Requested Visits Authorized [id number] Authorized Precert 11/25/2018 03/31/2099 99 99 Encounter Details Date Type Department Care Team (Late st Contact Info) Description 02/04/2024 11:15 AM EST Office Visit Ophthalmology, [facility] [address] [place] [address] Pedro Tinsley DO [address] [place] [address] 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 03/26/2023 Active Nystatin 526639 UNIT/GM External Powder (Nystop)Indications :Rash and nonspecific [...] tachycardia,Tachy-b rady syndrome (HCC),Coronary artery disease involving [place] coronary artery of [place] heart without angina pectoris,Presence of cardiac pacemaker,Palpitati [...] of [place] heart without angina pectoris 07/08/2018 Overview: history of NSTEMI status post AMIE to LAD (culprit) and RCA, 04/28/2018 Last Assessment & Plan: Cardiac rehab at [facility] 2x week Arthritis of left ankle [...] Pedro Tinsley DO Eylea 2mg lot # [id number] Exp. Date: 10/2024 * Mariposa Mathur MED [...] Description 02/06/2024 5:30 PM EST Home Visit [facility] 132 [facility] [place] [address] Olinda Briggs RN 132 [facility] [place] [address] 02/17/2024 11:10 AM EST Laboratory Laboratory [address] [place] [phone] [place] [address] 02/21/2024 10:30 AM EST Nurse Only Rheumatology [address] [place] [phone] [place], Nurse [address] [place] [phone] 02/25/2024 2:30 PM EST Office Visit Hematology/Oncology [facility] [address] [place] [phone] Arianna Szymanski MD [address] [place] [address] 03/30/2024 11:00 AM EST Home Visit [facility]inger at [facility] [address] [place] [address] Leon Live PA-C [address] [place] [address] 05/22/2024 3:45 PM EST Office Visit Dermatology [facility] [address] [place] [address] Guy Trivedi MD [address] [place] [address] 06/25/2024 9:00 AM EDT Office Visit Family Medicine [address] [place] [phone] Rafa Bergman MD [address] [place] [address] [place] [address] 07/21/2024 10:00 AM EDT Imaging Radiology, [address] [place] [address] 07/27/2024 10:00 AM EDT Office Visit Rheumatology [address] [place] [phone] Deangelo Holley MD [address] [facility] [place] [address] Scheduled Orders Name Type Priority Associated Diagnoses [...] Additional history exists CKD HGB USE SMARTSET 46638 06/26/202406/26, 06/27/2023, 04/26/2023, Additional history exists CKD PHOS USE SMARTSET 90996 06/26/202405/31, 04/19/2021, 11/27/2019, Additional history exists DXA [...] D LEVEL ONCE IN A LIFETIME-USE SMARTSET# 72529 Completed 06/27/2023, 11/06/2021, 12/28/2019, Additional history exists HPV (Gardasil) Vaccine Aged Out No lo nger eligible based on patient's age to complete this topic MENINGOCOCCAL (MENACTRA/MENVEO) Aged Out No longer eligible based on patient's age to complete this topic documented as of this encounter Medical Devices Implanted Type Area Drop Shipment Clerk Device Identifier Shelf Expiration Date Model / Serial / Lot Lens Intraoc 21.5 - [id number] - [id number] Implanted:Qty: 1 on 05/12/2019 by Yury Brady MD at OR [facility] Right: Eye [employer]CH [employer] LOMB 12/30/2023 [id number] / [id number] / [id number] Lens Intraoc 22.5 - [id number] - [id number] Implanted:Qty: 1 on 04/05/2020 by Yury Brady MD at OR [facility] Left: Eye BAUSCH [employer] LOMB 09/28/2024 [id number] / [id number] / [id number] documented as of this encounter Visit Diagnoses [...] on File Type Date Recorded Patient Glass Cutting Machine Operator Expl anation Advance Directives and [...] Agen t (per Health Care Power of Deputy Juvenile Officer document) Guille Urban Adult Child Health Care Agen t (per Health Care Power of Deputy Juvenile Officer document) Care Teams Optical Laboratory Mechanic Relationship Specialty Start Date End Date Rafa Bergman MD [address] [place] [address] [place] [phone] PCP - General Family Medicine 04/19/21 documented as of this encounter
--- OUTSIDE RECORDS SUMMARY | 2024-07-24 00:20 | External Medical Summary | Summary of Care ---
Author Name Unknown Organization [facility] Address [address] [facility] [place] [address] Phone [phone] Care Team Providers Care Pack Mule Worker Name Role Phone Rafa Bergman MD Primary Care Provide r Reason for Visit * Reason Onset Date Comments Medication Pre-auth 02/04/2024 Encounter Details Date Type Department Care Team (Late st Contact Info) Description 02/04/2024 Telephone Ophthalmology, [facility] [address] [place] [address] Pedro Tinsley DO [address] [place] [address] Medication Pre-auth Allergies Active Allergy Reactions Criticality [...] as needed for Constipation. 03/26/2023 Active Nystatin 298861 UNIT/GM External Powder (Nystop)Indications :Rash and nonspecific [...] goal LDL below 70,Coronary artery disease involving [place] coronary artery of [place] heart without angina pectoris TAKE ONE TABLET BY MOUTH IN THE MORNING 90 Tablet 3 01/10/2024 Active Propranolol HCl 10 MG Oral Tablet (Inderal)Indication s:Sinus tachycardia,Tachy-b rady syndrome (HCC),Coronary artery disease involving [place] coronary artery of [place] heart without angina pectoris,Presence of cardiac pacemaker,Palpitati [...] 01/03/2023 History of MS (myocardial infarction) 11/27/2022 History of pulmonary embolism [...] S/P angioplasty with stent 11/27/2018 Atherosclerosis of [place] co ronary artery of [place] heart without angina pectoris 07/08/2018 Overview: history [...] 09/13/2022 11/08/2023 Atherosclerosis of coronary artery of [place] heart without angina pectoris 09/10/2022 10/31/2022 Hypothyroidism [...] filter 02/28/2015 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 11/2018 CKD [...] Description 02/06/2024 5:30 PM EST Home Visit [facility] [address] [place] [address] Olinda Briggs, CHRISTINA [address] [place] [address] 02/17/2024 11:10 AM EST Laboratory Laboratory [address] [place] [phone] [address] [place] [address] 02/21/2024 10:30 AM EST Nurse Only Rheumatology [address] [place] [phone] Roggen, Nurse Rheum [address] [place] [address] 02/25/2024 2:30 PM EST Office Visit Hematology/Oncology [facility] [address] [facility] [place] [phone] Arianna Szymanski MD [address] [facility] [place] [address] 03/18/2024 2:15 PM EST Office Visit Ophthalmology, [facility] [address] [place] [address] Pedro Tinsley, [address] [place] [address] 03/30/2024 11:00 AM EST Home Visit [facility] [address] [place] [address] Leon Live PA-C [address] [place] [address] 05/22/2024 3:45 PM EST Office Visit Dermatology [facility] [address] [facility] [place] [address] Guy Trivedi MD [address] [facility] [place] [address] 06/25/2024 9:00 AM EDT Office Visit Family Medicine [address] [place] [phone] Rafa Bergman MD [address] [place] [address] [place] [address] 07/21/2024 10:00 AM EDT Imaging Radiology, [facility] [address] [place] [address] 07/27/2024 10:00 AM EDT Office Visit Rheumatology [address] [place] [phone] Deangelo Holley MD [address] [place] [address] Health Maintenance Due Date Last Done Comments [...] Additional history exists CKD HGB USE SMARTSET 22515 06/26/202406/26, 06/27/2023, 04/26/2023, Additional history exists CKD PHOS USE SMARTSET 08902 06/26/202405/31, 04/19/2021, 11/27/2019, Additional history exists DXA [...] D LEVEL ONCE IN A LIFETIME-USE SMARTSET# 39600 Completed 06/27/2023, 11/06/2021, 12/28/2019, Additional history exists HPV (Gardasil) Vaccine Aged Out No lo nger eligible based on patient's age to complete this topic MENINGOCOCCAL (MENACTRA/MENVEO) Aged Out No longer eligible based on patient's age to complete this topic documented as of this encounter Medical Devices Implanted Type Area Exhibit Artist Device Identifier Shelf Expiration Date Model / Serial / Lot Lens Intraoc 21.5 - [id number] - [id number] Implanted:Qty: 1 on 05/12/2019 by Yury Brady MD at OR [facility] Right: Eye [employer] 12/30/2023 [id number] / [id number] / [id number] Lens Intraoc 22.5 - [id number] - [id number] Implanted:Qty: 1 on 04/05/2020 by Yury Brady MD at OR [facility] Left: Eye [employer]OM[employer] 09/28/2024 [id number] / [id number] / [id number] documented as of this encounter Advance Directives Documents on File Type Date Recorded Patient Hand Buffing Wheel Former Expl anation Advance Directives and Living Will [...] Agen t (per Health Care Power of Outreach Representative document) Guille Urban Adult Child Health Care Agen t (per Health Care Power of Outreach Representative document) Care Teams Pack Mule Worker Relationship Specialty Start Date End Date Rafa Bergman MD [address] [place] [address] [place] [address] PCP - General Family Medicine 04/19/21 documented as of this encounter
--- OUTSIDE RECORDS SUMMARY | 2024-07-24 00:21 | External Medical Summary | Summary of Care ---
Author Name Unknown Organization [facility] Address [address] [facility] [address] Phone [phone] Care Team Providers Care Cleaner And Trimmer Name Role Phone Raaf Bergman MD Primary Care Provide r Reason for Visit * Reason Onset Date Comments [facility]: Maintenance 01/30/2024 Encounter Details Date Type Department Care Team (Late st Contact Info) Description 01/30/2024 10:45 AM EDT Scheduled Telephone [facility], [place] [address] [place] [address] Coordinator, [facility] [place] [address] [place] [address] Allergies Active Allergy Reactions Criticality Noted Date [...] as needed for Constipation. 03/26/2023 Active Nystatin 848547 UNIT/GM External Powder (Nystop)Indications :Rash and nonspecific [...] goal LDL below 70,Coronary artery disease involving [place] coronary artery of [place] heart without angina pectoris TAKE ONE TABLET BY MOUTH IN THE MORNING 90 Tablet 3 01/10/2024 Active Propranolol HCl 10 MG Oral Tablet (Inderal)Indication s:Sinus tachycardia,Tachy-b rady syndrome (HCC),Coronary artery disease involving [place] coronary artery of [place] heart without angina pectoris,Presence of cardiac pacemaker,Palpitati [...] S/P angioplasty with stent 11/27/2018 Atherosclerosis of [place] co ronary artery of [place] heart without angina pectoris 07/08/2018 Overview: history [...] 09/13/2022 11/08/2023 Atherosclerosis of coronary artery of [place] heart without angina pectoris 09/10/2022 10/31/2022 [...] filter 02/28/2015 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 Pt with 2 week intermittent sinus infection symptoms: MAN, chills, facial pressure, sore throat, yellow nasal discharge. Pt started clindamycin 01/27. As of yesterday 01/28, pt reported no change in symptoms. Disposition: Issue resolved. All appropriate follow up scheduled. Future Visits Scheduled: Future Appointments-next 60 days Date/Time Provider Specialty Dept Phone 01/29/2024 4:00 PM Coordinator, [facility] [phone] 01/30/2024 10:45 AM Coordinator, [facility] [phone] 02/04/2024 11:15 AM Pedro Tinsley DO Ophthalmology [phone] 02/06/2024 8:00 AM (Arrive by 7:45 AM) Rafa Bergman MD Family Medicine [phone] 02/06/2024 5:30 PM Olinda Briggs RN [facility] [phone] 02/17/2024 11:10 AM [facility] [phone] 02/25/2024 2:30 PM (Arrive by 2:15 PM) Arianna Szymanski MD Hematology Oncology [phone] 03/30/2024 11:00 AM Leon Live PA-C [facility] [phone] 05/22/2024 3:45 PM (Arrive by 3:30 PM) Guy Trivedi MD Dermatology [phone] 06/25/2024 9:00 AM (Arrive by 8:45 AM) Rafa Bergman MD Family Medicine [phone] 07/21/2024 10:00 AM [facility] Radiology [phone] 07/27/2024 10:00 AM (Arrive by 9:45 AM) Deangelo Holley MD Rheumatology [phone] Brunilda Higgins, CHRISTINA documented in this encounter Plan of Treatment Upcoming Encounters Date Type Department Care Team (Late st Contact Info) Description 02/04/2024 11:15 AM EST Office Visit Ophthalmology, [facility] [address] [place] [address] Pedro Tinsley DO [address] [place] [address] 02/06/2024 8:00 AM EST Office Visit Family Medicine [address] [place] [phone] Rafa Bergman MD [address] [place] [address] [place] [address] 02/06/2024 5:30 PM EST [facility] [address] [place] [address] Olinda Briggs RN [address] [place] [address] 02/17/2024 11:10 AM EST Laboratory Laboratory [address] [place] [phone] [address] [place] [address] 02/25/2024 2:30 PM EST Office Visit Hematology/Oncology [facility] [address] [place] [phone] Arianna Szymanski MD [address] [place] [address] 03/30/2024 11:00 AM EST [facility] Visit [facility] [address] [place] [address] Leon Live PA-C [address] [place] [address] 05/22/2024 3:45 PM EST Office Visit Dermatology [facility] [address] [facility] [place] [address] Guy Trivedi MD [address] [facility] [place] [address] 06/25/2024 9:00 AM EDT Office Visit Family Medicine [address] [place] [phone] Rafa Bergman MD [address] [place] [address] [place] [address] 07/21/2024 10:00 AM EDT Imaging Radiology, [place] [address] [place] [place] [address] 07/27/2024 10:00 AM EDT Office Visit Rheumatology [address] [place] [phone] Deangelo Holley MD [facility] [place] [address] Health Maintenance Due Date Last Done Comments [...] Additional history exists CKD HGB USE SMARTSET 46628 06/26/202406/26, 06/27/2023, 04/26/2023, Additional history exists CKD PHOS USE SMARTSET 78028 06/26/2024/10/2023, 04/19/2021, 11/27/2019, Additional history exists DXA [...] D LEVEL ONCE IN A LIFETIME-USE SMARTSET# 52243 Completed 06/27/2023, 11/06/2021, 12/28/2019, Additional history exists HPV (Gardasil) Vaccine Aged Out No lo nger eligible based on patient's age to complete this topic MENINGOCOCCAL (MENACTRA/MENVEO) Aged Out No longer eligible based on patient's age to complete this topic documented as of this encounter Medical Devices Implanted Type Area Jersey Knitter Device Identifier Shelf Expiration Date Model / Serial / Lot Lens Intraoc 21.5 - [id number] - [id number] Implanted:Qty: 1 on 05/12/2019 by Yury Brady MD at OR [facility] Right: Eye [employer] 12/30/2023 [id number] / [id number] / [id number] Lens Intraoc 22.5 - [id number] - [id number] Implanted:Qty: 1 on 04/05/2020 by Yury Brady MD at OR [facility] Left: Eye [employer]OM[employer] 09/28/2024 [id number] / [id number] / [id number] documented as of this encounter Advance Directives Documents on File Type Date Recorded Patient [employer] Advance Directives and Living Will [...] Agen t (per Health Care Power of Scientific Informatics Leader document) Guille Isaacncer Adult Child Health Care Agen t (per Health Care Power of Scientific Informatics Leader document) Care Teams Cleaner And Trimmer Relationship Specialty Start Date End Date Rafa Bergman MD [address] [place] [address] [place] [address] PCP - General Family Medicine 04/19/21 documented as of this encounter
--- OUTSIDE RECORDS SUMMARY | 2024-07-24 00:21 | External Medical Summary | Summary of Care ---
Author Name Unknown Organization [facility] Address [address] [facility] [address] Phone [phone] Care Team Providers Care Mental Health Advanced Practice Nurse Name Role Phone Rafa Bergman MD Primary Care Provide r Reason for Visit * Reason Onset Date Comments [facility]: Maintenance 01/29/2024 Encounter Details Date Type Department Care Team (Late st Contact Info) Description 01/29/2024 4:00 PM EDT Scheduled Telephone [facility] [place] [address] [place] [address] Coordinator, [facility] [address] [place] [address] Allergies Active Allergy Reactions Criticality Noted Date Comments Colchicine Diarrhea 06/16/2018 Daptomycin 01/05/2015 Shortness of breath Imipenem Edema airway High 01/05/2015 Metoprolol Low 01/23/2021 Other reaction(s): fatigue Zoledronic Acid 04/24/2012 Myalgias, fever, chills, vomiting x 2 days Sulfa Antibiotics 12/22/2002 Bactrim--itchy all over, eyes swollen documented as of this encounter (statuses as of 01/29/2024) Medications Medication Sig Dispensed Refills Start Date [...] as needed for Constipation. 03/26/2023 Active Nystatin 471865 UNIT/GM External Powder (Nystop)Indications :Rash and nonspecific [...] tachycardia,Tachy-b rady syndrome (HCC),Coronary artery disease involving [place] coronary artery of [place] heart without angina pectoris,Presence of cardiac pacemaker,Palpitati [...] as of this encounter (statuses as of 01/29/2024) Active Problems Problem Noted Date Diagnosed Date [...] of [place] heart without angina pectoris 07/08/2018 Overview: history of NSTEMI status post AMIE to LAD (culprit) and RCA, 04/28/2018 Last Assessment & Plan: Cardiac rehab at [facility] 2x week Arthritis of [...] as of this encounter (statuses as of 01/29/2024) Resolved Problems Problem Noted Date Diagnosed Date [...] as of this encounter (statuses as of 01/29/2024) Immunizations Name Administration Dates Next Due COVID-19 [...] Telephone Encounter - Paulina Romeo RN - 01/29/2024 10:08 AM EDT [facility] Telephonic Nurse Follow-Up Call [facility] Subprogram: Focused Care Management (3-9 months) [...] Medications: New medication(s) added: Clindmycin 300 mg Subjective: Condition Status: No change in symptoms Current Concerns: Spoke to the pt. Reports no change in sinus infection symptoms. Still have pain and pressure behindeyes, headache, and some blurry vision. Yellow drainage from nose and post nasal drip to the back of the throat. Denies cough. Afebrile. Has had 3 doses of abx with no improvement so far. Disposition: Follow up call scheduled for tomorrow with [facility] Future Visits Scheduled: Future Appointments-next 60 days Date/Time Provider Specialty Dept Phone 01/29/2024 4:00 PM Coordinator, [facility] [phone] 01/30/2024 10:45 AM Coordinator, [facility] [phone] 02/04/2024 11:15 AM Pedro Tinsley DO Ophthalmology [phone] 02/06/2024 8:00 AM (Arrive by 7:45 AM) Rafa Bergman MD Family Medicine [phone] 02/06/2024 5:30 PM Olinda Briggs RN [facility] [phone] 02/17/2024 11:10 AM [facility] [phone] 02/25/2024 2:30 PM (Arrive by 2:15 PM) Arianna Szymanski MD Hematology Oncology [phone] 03/30/2024 11:00 AM Leon Live PA-C [facility] [phone] 05/22/2024 3:45 PM (Arrive by 3:30 PM) Guy Trivedi MD Dermatology [phone] 06/25/2024 9:00 AM (Arrive by 8:45 AM) Rafa Bergman MD Family Medicine [phone] 07/21/2024 10:00 AM [facility] Radiology [phone] 07/27/2024 10:00 AM (Arrive by 9:45 AM) Deangelo Holley MD Rheumatology [phone] Paulina Romeo, RN documented in this encounter Plan of Treatment Upcoming Encounters Date Type Department Care Team (Late st Contact Info) Description 01/30/2024 10:45 AM EDT Scheduled Telephone [facility], [facility] [address] [place] [address] Coordinator, [facility] [address] [place] [address] 02/04/2024 11:15 AM EST Office Visit Ophthalmology, [facility] [address] [place] [address] Pedro Tinsley DO [address] [place] [address] 02/06/2024 8:00 AM EST Office Visit Family Medicine [address] [place] [phone] Rafa Bergman MD [address] [place] [address] [place] [address] 02/06/2024 5:30 PM EST [facility] Visit [facility] [address] [place] [address] Olinda Briggs RN [address] [place] [address] 02/17/2024 11:10 AM EST Laboratory Laboratory [address] [place] [phone] [place], Lab [address] [place] [address] 02/25/2024 2:30 PM EST Office Visit Hematology/Oncology [facility] [place] [address] [place] [phone] Arianna Szymanski MD [address] [place] [address] 03/30/2024 11:00 AM EST [facility] Visit [facility], [facility] [address] [place] [address] Leon Live PA-C [address] [place] [address] 05/22/2024 3:45 PM EST Office Visit Dermatology [facility] [address] [facility] [place] [address] Guy Trivedi MD [address] [facility] [place] [address] 06/25/2024 9:00 AM EDT Office Visit Family Medicine [address] [place] [phone] Rafa Bergman MD [address] [place] [address] [place] [address] 07/21/2024 10:00 AM EDT Imaging Radiology, [address] [facility] [place] [address] 07/27/2024 10:00 AM EDT Office Visit Rheumatology [address] [place] [phone] Deangelo Holley MD [address] [place] [address] [place] [address] Health Maintenance Due Date Last Done Comments [...] Additional history exists CKD HGB USE SMARTSET 86383 06/26/202406/26, 06/27/2023, 04/26/2023, Additional history exists CKD PHOS USE SMARTSET 60847 06/26/202405/31, 04/19/2021, 11/27/2019, Additional history exists DXA [...] D LEVEL ONCE IN A LIFETIME-USE SMARTSET# 58632 Completed 06/27/2023, 11/06/2021, 12/28/2019, Additional history exists HPV (Gardasil) Vaccine Aged Out No lo nger eligible based on patient's age to complete this topic MENINGOCOCCAL (MENACTRA/MENVEO) Aged Out No longer eligible based on patient's age to complete this topic documented as of this encounter Medical Devices Implanted Type Area Brick And Blocker Aid Labor Device Identifier Shelf Expiration Date Model / Serial / Lot Lens Intraoc 21.5 - [id number] - [id number] Implanted:Qty: 1 on 05/12/2019 by Yury Brady MD at OR [facility] Right: Eye [employer] 12/30/2023 [id number] / [id number] / [id number] Lens Intraoc 22.5 - [id number] - [id number] Implanted:Qty: 1 on 04/05/2020 by Yury Brady MD at OR [facility] Left: Eye [employer]OMB 09/28/2024 [id number] / [id number] / [id number] documented as of this encounter Advance Directives Documents on File Type Date Recorded Patient Cardiology Coordinator Expl anation Advance Directives and Living Will 03/11/2018 Krissyav Urban ADVANCE DIR ECTIVE * Full Code [...] t (per Health Care Power of Process Tank Tender document) Guille Urban Adult Child Health Care Agen t (per Health Care Power of Process Tank Tender document) Care Teams Mental Health Advanced Practice Nurse Relationship Specialty Start Date End Date Rafa Bergman MD [address] [place] [address] [place] [phone] PCP - General Family Medicine 04/19/21 documented as of this encounter
--- OUTSIDE RECORDS SUMMARY | 2024-07-24 00:21 | External Medical Summary | Summary of Care ---
Author Name Unknown Organization [facility] Address [address] [facility] [place] [address] Phone [phone] Care Team Providers Care Equity Research Analyst Name Role Phone Rafa Bergman MD Primary Care Provide r Reason for Visit * Reason Onset Date Comments [facility]: Acute 01/28/2024 Encounter Details Date Type Department Care Team (Late st Contact Info) Description 01/28/2024 Telephone [facility], [facility] [address] [place] [facility] [place] [address] Nan Calix RN [address] [facility] [place] [address] [facility]: Acute Allergies Active Allergy Reactions Criticality Noted Date Comments Colchicine Diarrhea 06/16/2018 Daptomycin 01/05/2015 Shortness of breath Imipenem Edema airway High 01/05/2015 Metoprolol Low 01/23/2021 Other reaction(s): fatigue Zoledronic Acid 04/24/2012 Myalgias, fever, chills, vomiting x 2 days Sulfa Antibiotics 12/22/2002 Bactrim--itchy all over, eyes swollen documented as of this encounter (statuses as of 01/28/2024) Medications Medication Sig Dispensed Refills Start Date [...] as needed for Constipation. 03/26/2023 Active Nystatin 783981 UNIT/GM External Powder (Nystop)Indications :Rash and nonspecific [...] goal LDL below 70,Coronary artery disease involving cantwell coronary artery of cantwell heart without angina pectoris TAKE ONE TABLET BY MOUTH IN THE MORNING 90 Tablet 3 01/10/2024 Active Propranolol HCl 10 MG Oral Tablet (Inderal)Indication s:Sinus tachycardia,Tachy-b rady syndrome (HCC),Coronary artery disease involving cantwell coronary artery of cantwell heart without angina pectoris,Presence of cardiac pacemaker,Palpitati [...] as of this encounter (statuses as of 01/28/2024) Active Problems Problem Noted Date Diagnosed Date [...] S/P angioplasty with stent 11/27/2018 Atherosclerosis of cantwell co ronary artery of cantwell heart without angina pectoris 07/08/2018 Overview: history of NSTEMI status post AMIE to LAD (culprit) and RCA, 04/28/2018 Last Assessment & Plan: Cardiac rehab at [facility] 2x week Arthritis of left ankle 11/06/2017 [...] as of this encounter (statuses as of 01/28/2024) Resolved Problems Problem Noted Date Diagnosed Date Resolved Date Purulent endophthalmitis of right eye 01/03/2023 11/08/2023 Other pulmonary embolism wit h acute cor pulmonale 10/01/2022 04/26/2023 Overview: history Medical home patient encounter 09/13/2022 11/08/2023 Atherosclerosis of coronary artery of cantwell heart without angina pectoris 09/10/2022 10/31/2022 Hypothyroidism [...] filter 02/28/2015 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 She is appreciative . Nan Calix RN [facility] Intake [phone] * Addendum Note - Kate Maya DO - 01/28/2024 12:29 PM EDTAddended by: KATE MAYA on: 01/28/2024 12:29 PM Modules accepted: Orders * Telephone Encounter - Kate Maya DO - 01/28/2024 12:29 PM EDT [facility] QuickNote Recommendations: Antibiotics given as initially requested Orders: Plan Clindamycin HCl 300 MG Oral Capsule To Do: Please see below for follow up items to be completed and correspondence: network systems consultant Pool please work on the following: contact the caller with advice and orders as above Kate Maya DO [facility] - [facility] 01/28/2024 Scheduled appointments in the next 60 days: Future Appointments-next 60 days Date/Time Provider Specialty Dept Phone 01/29/2024 4:00 PM Coordinator, [facility] [phone] 01/30/2024 10:45 AM Coordinator, [facility] [phone] 02/04/2024 11:15 AM Pedro Tinsley DO Ophthalmology [phone] 02/06/2024 8:00 AM (Arrive by 7:45 AM) Rafa Bergman MD Family Medicine [phone] 02/06/2024 5:30 PM Olinda Briggs RN [facility] [phone] 02/17/2024 11:10 AM [facility] Laboratory [phone] 02/25/2024 2:30 PM (Arrive by 2:15 PM) Arianna Szymanski MD Hematology Oncology [phone] 03/30/2024 11:00 AM Leon Live PA-C [facility] [phone] 05/22/2024 3:45 PM (Arrive by 3:30 PM) Guy Trivedi MD Dermatology [phone] 06/25/2024 9:00 AM (Arrive by 8:45 AM) Rafa Bergman MD Family Medicine [phone] 07/21/2024 10:00 AM [facility] Radiology [phone] 07/27/2024 10:00 AM (Arrive by 9:45 AM) Deangelo Holley MD Rheumatology [phone] * Telephone Encounter - Nan Calix RN - 01/28/2024 12:10 PM EDT PC placed to pt with [facility] recommendations. She is now reporting that she felt the onset off symptoms when she went out of town-18 days ago. She self treated with OTC and had some relief of sxs but the sxs never left her since Jan 09. She is again requesting ABX. My intitial note reports 3-4 days of increased sxs since stopping OTC meds. My note was not clear on this. Nan Calix RN [facility] Intake [phone] * Telephone Encounter - Kate Maya DO - 01/28/2024 12:05 PM EDT [facility] Subprogram: Focused Care Management (3-9 months) Recommendations: With only 3 or 4 days of symptoms at this point it is still more likely to be viral in nature. I would recommend a home COVID test and continuing to monitor symptoms. Recommend nasal saline spray as well as humidifying the air. Once we hit the 7 day shlomo then we are becoming more likely to be bacterial in nature and would hold off until then. At this time antibiotics are not indicated Orders: No orders of the defined types were placed in this encounter. To Do: Please see below for follow up items to be completed and correspondence: SUNNY Kimball's Care Team network systems consultant Pool please work on the following: contact the caller with advice and orders as above Kate Maya DO [facility] - [facility] 01/28/2024 Scheduled appointments in the next 60 days: Future Appointments-next 60 days Date/Time Provider Specialty Dept Phone 02/04/2024 11:15 AM Pedro Tinsley DO Ophthalmology [phone] 02/06/2024 8:00 AM (Arrive by 7:45 AM) Rafa Bergman MD Family Medicine [phone] 02/06/2024 5:30 PM Olinda Briggs RN [facility] [phone] 02/17/2024 11:10 AM [facility] [phone] 02/25/2024 2:30 PM (Arrive by 2:15 PM) Arianna Szymanski MD Hematology Oncology [phone] 03/30/2024 11:00 AM Leon Live PA-C [facility] [phone] 05/22/2024 3:45 PM (Arrive by 3:30 PM) Guy Trivedi MD Dermatology [phone] 06/25/2024 9:00 AM (Arrive by 8:45 AM) Rafa Bergman MD Family Medicine [phone] 07/21/2024 10:00 AM [facility] Radiology [phone] 07/27/2024 10:00 AM (Arrive by 9:45 AM) Deangelo Holley MD Rheumatology [phone] * Telephone Encounter - Nan Calix RN - 01/28/2024 11:50 AM EDT [facility] network systems consultant Acute Call Date: 01/28/2024 Time: 11:50 AM Name: Rehana Moran : 1945 Caller: Patient HPI: Rehana Moran is a 78 year old female that is calling [facility] Intake to report: 3-4 day hx of sinus infection. Pt has frontal headache, chills, pressure in her face, sore throat; She has yelllow discharge when she blows her noese. She reports she has tried all OTC remedies but she feels she needs ABX.. + nausea from excess mucus in her throat. Dripping from sinus' Pt denies allergies to ABX but states Augmentin "does not agree with her." - Causes GI issues. Nursing Assessment: Patient's chief complaint for this call: Other, describe Sinus infection Pain Denies pain + sinus pain and pressure Baseline Assessment Able to performing ADLs at baseline (walking, daily tasks, etc.): Yes Chief Complaint is related to a chronic condition: No Patient prescribed oxygen? No Patient has been ordered DME equipment (assistive devices, respiratory equipment, etc.): No Medication Reconciliation: (See medication list) Received flu shot this season: No Taking medication as ordered: Yes Medications ordered/taking to treat reason for call: Yes, PRN medication(s) Tried OTC meds. Now just using cough gtts. Heart failure symptoms: No COPD exacerbation symptoms: No Reinforcement Education: Increase fluids NSS nasal spray as directed Cough gtts ok Hot showers to clear sinuses. Humidifier if air in home is dry. Will send for ABX recommendations and call you back. Call [facility] for SOB, worsening sxs. Treatment/Plan: (need to report) Level of call: Non-Acute Recommended treatment plan: Clinical advice given over the phone Routing to [facility] and Care Team for further recommendations. [facility]'s scheduled. Nan Calix RN [facility] Intake [phone] Call back instructions provided to patient. documented in this encounter Plan of Treatment Upcoming Encounters Date Type Department Care Team (Late st Contact Info) Description 01/29/2024 4:00 PM EDT Scheduled Telephone [facility], [facility] [address] [place] [address] Coordinator, [facility] [address] [place] [address] 01/30/2024 10:45 AM EDT Scheduled Telephone [facility], [facility] [address] [place] [address] Coordinator, [facility] [address] [place] [address] 02/04/2024 11:15 AM EST Office Visit Ophthalmology, [facility] [address] [facility] [place] [address] Pedro Tinsley, [address] [place] [address] 02/06/2024 8:00 AM EST Office Visit Family Medicine [address] [place] [phone] Rafa Bergman MD [address] [place] [address] [place] [address] 02/06/2024 5:30 PM EST [facility] [address] [place] [address] Olinda Briggs RN [address] [place] [address] 02/17/2024 11:10 AM EST Laboratory Laboratory [address] [place] [phone] [address] [place] [address] 02/25/2024 2:30 PM EST Office Visit Hematology/Oncology [facility] [address] [place] [phone] Arianna Szymanski MD [address] [place] [address] 03/30/2024 11:00 AM EST Home Visit [facility], [facility] [address] [place] [address] Leon Live PA-C [address] [place] [address] 05/22/2024 3:45 PM EST Office Visit Dermatology [facility] [address] [place] [address] Guy Trivedi MD [address] [place] [address] 06/25/2024 9:00 AM EDT Office Visit Family Medicine [address] [place] [phone] Rafa Bergman MD [address] [place] [address] [place] [address] 07/21/2024 10:00 AM EDT Imaging Radiology, [place] [address] [employer] [place] [address] 07/27/2024 10:00 AM EDT Office Visit Rheumatology [address] [place] [phone] Deangelo Holley MD [facility] [place] [address] Health Maintenance Due Date Last Done Comments [...] Additional history exists CKD HGB USE SMARTSET 26675 06/26/202406/26, 06/27/2023, 04/26/2023, Additional history exists CKD PHOS USE SMARTSET 86902 06/26/202405/31, 04/19/2021, 11/27/2019, Additional history exists DXA Scan 07/18/2024 07/18/2022, 06/30, 12/22/2019, Additional history exists TSH 11/14/2024 11/15/2023, 07/05/2023, 08/21/2023, Additional history exists DTap/Tdap Vaccines (3 - Td or Tdap) 09/30/2033 10/01/2023, 11/03/2007 Hepatitis B Vaccine Completed 03/18/2009, 06/14/2008, 05/12/2008 Pneumococcal Vaccine: 65+ Years Completed 03/28/2015, 03/20/2010, 11/15/2004 RETIRED - COLONOSCOPY-EVERY 5 YRS AGES 18-100 Discontinued 02/27/2017, 02/27/2017, 10/17/2004 Zoster Vaccines Completed 06/12/2021, 02/01, 11/04/2012 VITAMIN D LEVEL ONCE IN A LIFETIME-USE SMARTSET# [id number] Completed 06/27/2023, 11/06/2021, 12/28/2019, Additional history exists HPV (Gardasil) Vaccine Aged Out No lo nger eligible based on patient's age to complete this topic MENINGOCOCCAL (MENACTRA/MENVEO) Aged Out No longer eligible based on patient's age to complete this topic documented as of this encounter Medical Devices Implanted Type Area Adolescent Specialist Device Identifier Shelf Expiration Date Model / Serial / Lot Lens Intraoc 21.5 - [id number] - [id number] Implanted:Qty: 1 on 05/12/2019 by Yury Brady MD at OR [facility] Right: Eye [employer] 12/30/2023 [id number] / [id number] / [id number] Lens Intraoc 22.5 - [id number] - [id number] Implanted:Qty: 1 on 04/05/2020 by Yury Brady MD at OR [facility] Left: Eye [employer]OM[employer] 09/28/2024 [id number] / [id number] / [id number] documented as of this encounter Advance Directives Documents on File Type Date Recorded Patient Urologist Physician Expl anation Advance Directives and Living Will [...] Agen t (per Health Care Power of Real Estate Appraiser document) Guille Urban Adult Child Health Care Agen t (per Health Care Power of Real Estate Appraiser document) Care Teams Equity Research Analyst Relationship Specialty Start Date End Date Rafa Bergman MD [address] [place] [address] [place] [address] PCP - General Family Medicine 04/19/21 documented as of this encounter
--- OUTSIDE RECORDS SUMMARY | 2024-07-24 00:21 | External Medical Summary | Summary of Care ---
Author Name Unknown Organization [facility] Address [address] [facility] [place] [address] Phone [phone] Care Team Providers Care Production Material Coordinator Name Role Phone Rafa Bergman MD Primary Care Provide r Reason for Visit * Reason Onset Date Comments [facility]: Acute 01/28/2024 Encounter Details Date Type Department Care Team (Late st Contact Info) Description 01/28/2024 Telephone [facility], [facility] [address] [place] [facility] [place] [place] [address] Nan Calix RN [address] [place] [facility] [place] [place] [address] [facility]: Acute Allergies Active Allergy [...] Active Loperamide HCl 2 MG Oral Capsule (Imodium)Indications :Diarrhea, unspecified type take 1 capsule 4 times daily as needed for loose stool 30 Capsule 3 08/01/2022 Active Dicyclomine HCl 10 MG Oral Capsule (Bentyl)Indications: Diarrhea, unspecified type,Irritable bowel syndrome with both constipation [...] as needed for Constipation. 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 [...] Active Rosuvastatin Calcium 5 MG Oral Tablet (Crestor)Indications :Dyslipidemia, goal LDL below 70,Coronary artery disease involving walker river coronary artery of walker river heart without angina pectoris TAKE ONE TABLET BY MOUTH IN THE MORNING 90 Tablet 3 01/10/2024 Active Propranolol HCl 10 MG Oral Tablet (Inderal)Indications :Sinus tachycardia,Tachy-br gege syndrome (HCC),Coronary artery disease involving walker river coronary artery of walker river heart without angina pectoris,Presence of cardiac pacemaker,Palpitatio ns,HTN, goal below 140/90 Take one-half Tablet by mouth in the morning and before bedtime. 90 Tablet 3 01/10/2024 Active Levothyroxine Sodium 125 MCG Oral Tablet (Levoxyl)Indications :Hypothyroidism (acquired) Take 1 Tablet by mouth [...] 01/10/2024 Active Ondansetron HCl 4 MG Oral TabletIndications:Na usea Take 1 Tablet by mouth every 8 hours as needed for Nausea. 30 Tablet 01/17/2024 Active Spironolactone 25 MG Oral Tablet (Aldactone)Indicatio ns:Dyslipidemia, goal LDL below 70 Take 0.5 Tablets by mouth daily as needed (swelling). 90 Tablet 1 01/24/2024 Active Famotidine 20 MG Oral Tablet (Pepcid) Take 1 Tablet by mouth at bedtime. 90 Tablet 3 01/24/2024 Active Hospital, Clinic, or Other Facility Administered [...] 01/03/2023 History of CO (myocardial infarction) 11/27/2022 History of pulmonary embolism [...] S/P angioplasty with stent 11/27/2018 Atherosclerosis of walk[place] river co ronary artery of walker river heart without angina pectoris 07/08/2018 Overview: history of NSTEMI status post AMIE to LAD (culprit) and RCA, 04/28/2018 Last Assessment & Plan: Cardiac rehab at [facility] 2x week Arthritis of left [...] 09/13/2022 11/08/2023 Atherosclerosis of coronary artery of walker river heart without angina pectoris 09/10/2022 10/31/2022 [...] of inactive term Mixed dyslipidemia 05/13/200304/29/200 9 Overview: Resolved per Duplicate Protocol #2. 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 She is now reporting that she [...] not clear on this. Nan Calix RN [facility] Intake [phone] * Telephone Encounter - David Maya DO - 01/28/2024 12:05 PM EDT [facility] Subprogram: Focused Care Management (3-9 months) Recommendations: [...] and correspondence: SUNNY to Rehana's Care Team unit coordinator Pool please work on the following: contact the caller with advice and orders as above David Maya DO [facility] - [facility] 01/28/2024 Scheduled appointments in the next 60 days: Future Appointments-next 60 days Date/Time Provider Specialty Dept Phone 02/04/2024 11:15 AM Pedro Tinsley DO Ophthalmology [phone] 02/06/2024 8:00 AM (Arrive by 7:45 AM) Rafa Bergman MD Family Medicine [phone] 02/06/2024 5:30 PM Olinda Briggs RN [facility] [phone] 02/17/2024 11:10 AM [facility] Laboratory [phone] 02/25/2024 2:30 PM (Arrive by 2:15 PM) Arianna Szymanski MD Hematology Oncology [phone] 03/30/2024 11:00 AM Leon Live PA-C [facility] [phone] 05/22/2024 3:45 PM (Arrive by 3:30 PM) Guy Trivedi MD Dermatology [phone] 06/25/2024 9:00 AM (Arrive by 8:45 AM) Rafa Bergman MD Family Medicine [phone] 07/21/2024 10:00 AM [facility] Radiology [phone] 07/27/2024 10:00 AM (Arrive by 9:45 AM) Daengelo Holley MD Rheumatology [phone] * Telephone Encounter - Nan Calix RN - 01/28/2024 11:50 AM EDT [facility] unit coordinator Acute Call Date: 01/28/2024 Time: 11:50 AM Name: Rehana Moran : 1945 Caller: Patient HPI: Rehana Moran is a 78 year old female that is calling [facility] Intake to report: 3-4 day [...] ABX recommendations and call you back. Call [facility] for SOB, worsening sxs. Treatment/Plan: (need to report) Level of call: Non-Acute Recommended treatment plan: Clinical advice given over the phone Routing to [facility] and Care Team for further recommendations. [facility]'s scheduled. Nan Calix RN [facility] Intake [phone] Call back instructions provided to patient. documented in this encounter Plan of Treatment Upcoming Encounters Date Type Department Care Team (Late st Contact Info) Description 01/29/2024 4:00 PM EDT Scheduled Telephone [facility], [facility] [address] [place] [address] Coordinator, [facility] [address] [place] [address] 01/30/2024 10:45 AM EDT Scheduled Telephone [facility], [facility] [address] [place] [address] Coordinator, [facility] [address] [place] [address] 02/04/2024 11:15 AM EST Office Visit Ophthalmology, [facility] [address] [place] [address] Pedro Tinsley DO [address] [place] [address] 02/06/2024 8:00 AM EST Office Visit Family Medicine [address] [place] [phone] Rafa Bergman MD [address] [place] [address] [place] [address] 02/06/2024 5:30 PM EST Home Visit [facility], [facility] [address] [place] [address] Olinda Briggs, RN [address] [place] [address] 02/17/2024 11:10 AM EST Laboratory Laboratory [address] [place] [phone] [place], Lab [address] [place] [address] 02/25/2024 2:30 PM EST Office Visit [facility]ematology[facility]On[facility] [place] [address] [place] [phone] Arianna Szymanski MD [address] [facility] [place] [address] 03/30/2024 11:00 AM EST Home Visit [facility], [facility] [address] [place] [address] Leon Live PA-C [address] [place] [address] 05/22/2024 3:45 PM EST Office [facility] [place] [address] [place] [address] Guy Trivedi MD [address] [facility] [place] [address] 06/25/2024 9:00 AM EDT Office Visit Family Medicine [address] [place] [phone] Rafa Bergman MD [address] [place] [address] [place] [address] 07/21/2024 10:00 AM EDT Imaging Radiology, [address] [place] [address] 07/27/2024 10:00 AM EDT Office Visit Rheumatology [address] [place] [phone] Deangelo Holley MD [address] [place] [address] [place] [address] Health Maintenance Due Date Last Done Comments [...] Additional history exists CKD HGB USE SMARTSET 83022 06/26/202406/26, 06/27/2023, 04/26/2023, Additional history exists CKD PHOS USE SMARTSET 00993 06/26/202405/31, 04/19/2021, 11/27/2019, Additional history exists DXA [...] D LEVEL ONCE IN A LIFETIME-USE SMARTSET# 91239 Completed 06/27/2023, 11/06/2021, 12/28/2019, Additional history exists HPV (Gardasil) Vaccine Aged Out No lo nger eligible based on patient's age to complete this topic MENINGOCOCCAL (MENACTRA/MENVEO) Aged Out No longer eligible based on patient's age to complete this topic documented as of this encounter Medical Devices Implanted Type Area Jacquard Fixer Device Identifier Shelf Expiration Date Model / Serial / Lot Lens Intraoc 21.5 - [id number] - [id number] Implanted:Qty: 1 on 05/12/2019 by Yury Brady MD at OR [facility] [address] Right: Eye [employer] 12/30/2023 [id number] / [id number] / [id number] Lens Intraoc 22.5 - [id number] - [id number] Implanted:Qty: 1 on 04/05/2020 by Yury Brady MD at OR [facility] [address] Left: Eye [employer]CH [employer] LOMB 09/28/2024 [id number] / [id number] / [id number] documented as of this encounter Advance Directives Documents on File Type Date Recorded 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
--- OUTSIDE RECORDS SUMMARY | 2024-07-24 00:21 | External Medical Summary | Summary of Care ---
Author Name Unknown Organization [facility] Address [address] [facility] [place] [address] Phone [phone] Care Team Providers Care Software Test Automation Engineer Name Role Phone Rafa Bergman MD Primary Care Provide r Reason for Visit * Reason Onset Date Comments [facility]: Acute 01/28/2024 Encounter Details Date Type Department Care Team (Late st Contact Info) Description 01/28/2024 Telephone [facility], [facility] [address] [facility] [place] [address] Nan Calix RN [address] [facility] [place] [address] [facility]: Acute Allergies Active Allergy [...] as needed for Constipation. 03/26/2023 Active Nystatin 286001 UNIT/GM External Powder (Nystop)Indications: Rash and nonspecific [...] below 70,Coronary artery disease involving [place] coronary artery of [place] heart without angina pectoris TAKE ONE TABLET BY MOUTH IN THE MORNING 90 Tablet 3 01/10/2024 Active Propranolol HCl 10 MG Oral Tablet (Inderal)Indications :Sinus tachycardia,Tachy-br gege syndrome (HCC),Coronary artery disease involving [place] coronary artery of [place] heart without angina pectoris,Presence of cardiac pacemaker,Palpitatio [...] with stent 11/27/2018 Atherosclerosis of [place] co ronary artery of [place] heart without angina pectoris 07/08/2018 Overview: history [...] Atherosclerosis of coronary artery of [place] heart without angina pectoris 09/10/2022 10/31/2022 Hypothyroidism [...] Atherosclerotic heart diseas e of [place] coronary artery with angina pectoris 11/2018 CKD [...] encounter Miscellaneous Notes * Telephone Encounter - David Maya DO - 01/28/2024 12:05 PM EDT [facility] Subprogram: Focused Care Management (3-9 months) Recommendations: [...] up items to be completed and correspondence: FYI to Rehana's Care Team tactical air control party manager Pool please work on the following: contact the caller with advice and orders as above David Maya DO [facility] - [facility] 01/28/2024 Scheduled appointments in the next 60 days: Future Appointments-next 60 days Date/Time Provider Specialty Dept Phone 02/04/2024 11:15 AM Pedro Tinsley DO Ophthalmology [phone] 02/06/2024 8:00 AM (Arrive by 7:45 AM) Rafa Bergman MD Family Medicine [phone] 02/06/2024 5:30 PM Olinda Briggs RN [facility] [phone] 02/17/2024 11:10 AM [facility] [phone] 02/25/2024 2:30 PM (Arrive by 2:15 PM) Arianna Szymanski MD Hematology Oncology [phone] 03/30/2024 11:00 AM Leon Live PA-C [facility] [phone] 05/22/2024 3:45 PM (Arrive by 3:30 PM) Guy Trivedi MD Dermatology [phone] 06/25/2024 9:00 AM (Arrive by 8:45 AM) Rafa Bergman MD Family Medicine [phone] 07/21/2024 10:00 AM [facility] Radiology [phone] 07/27/2024 10:00 AM (Arrive by 9:45 AM) Deangelo Holley MD Rheumatology [phone] * Telephone Encounter - Nan Calix RN - 01/28/2024 11:50 AM EDT [facility] tactical air control party manager Acute Call Date: 01/28/2024 Time: 11:50 AM [...] ABX recommendations and call you back. Call [facility] for SOB, worsening sxs. Treatment/Plan: (need to report) Level of call: Non-Acute Recommended treatment plan: Clinical advice given over the phone Routing to [facility] and Care Team for further recommendations. [facility]'s scheduled. Nan Calix RN [facility] Intake [phone] Call back instructions provided to patient. documented in this encounter Plan of Treatment Upcoming Encounters Date Type Department Care Team (Late st Contact Info) Description 02/04/2024 11:15 AM EST Office Visit Ophthalmology, [facility] [address] [facility] [place] [address] Pedro Tinsley DO [address] [place] [address] 02/06/2024 8:00 AM EST [facility] [address] [place] [address] [place] [phone] Rafa Bergman MD [address] [place] [address] [place] [address] 02/06/2024 5:30 PM EST Home Visit [facility], [facility] [address] [place] [address] Olinda Briggs RN [address] [place] [address] 02/17/2024 11:10 AM EST Laboratory Laboratory [address] [place] [phone] [address] [place] [address] 02/25/2024 2:30 PM EST Office Visit Hematology/Oncology [facility] [address] [place] [phone] Arianna Szymanski MD [address] [place] [address] 03/30/2024 11:00 AM EST Home Visit [facility], [facility] [address] [place] [address] Leon Live PA-C [address] [place] [address] 05/22/2024 3:45 PM EST Office Visit Dermatology [facility] [address] [place] [address] Guy Trivedi MD [address] [place] [address] 06/25/2024 9:00 AM EDT Office Visit Family Medicine [address] [place] [phone] Rafa Bergman MD [address] [place] [address] [place] [address] 07/21/2024 10:00 AM EDT Imaging Radiology, [address] [place] [address] 07/27/2024 10:00 AM EDT Office Visit Rheumatology [address] [place] [phone] Deangelo Holley MD [address] [facility] [place] [address] Health Maintenance Due Date Last Done Comments [...] Additional history exists CKD HGB USE SMARTSET 44231 06/26/202406/26, 06/27/2023, 04/26/2023, Additional history exists CKD PHOS USE SMARTSET 98224 06/26/202405/31, 04/19/2021, 11/27/2019, Additional history exists DXA [...] D LEVEL ONCE IN A LIFETIME-USE SMARTSET# 24624 Completed 06/27/2023, 11/06/2021, 12/28/2019, Additional history exists HPV (Gardasil) Vaccine Aged Out No lo nger eligible based on patient's age to complete this topic MENINGOCOCCAL (MENACTRA/MENVEO) Aged Out No longer eligible based on patient's age to complete this topic documented as of this encounter Medical Devices Implanted Type Area Expenditure Requisition Clerk Device Identifier Shelf Expiration Date Model / Serial / Lot Lens Intraoc 21.5 - [id number] - [id number] Implanted:Qty: 1 on 05/12/2019 by Yury Brady MD at OR [facility] Right: Eye [employer] 12/30/2023 [id number] / [id number] / [id number] Lens Intraoc 22.5 - [id number] - [id number] Implanted:Qty: 1 on 04/05/2020 by Yury Brady MD at OR [facility] Left: Eye [employer] 09/28/2024 [id number] / [id number] / [id number] documented as of this encounter Advance Directives Documents on File Type Date Recorded Patient Assistant Therapy Aide Expl anation Advance Directives and Living [...] (per Health Care Power of Manager Of Corporate Communications document) Guille [facility] Adult Child Health Care Agen t (per Health Care Power of Manager Of Corporate Communications document) Care Teams Software Test Automation Engineer Relationship Specialty Start Date End Date Rafa Bergman MD [address] [place] [address] [place] [address] PCP - General Family Medicine 04/19/21 documented as of this encounter
--- OUTSIDE RECORDS SUMMARY | 2024-07-24 00:21 | External Medical Summary | Summary of Care ---
Author Name Unknown Organization [facility] Address [address] [facility] [place] [address] Phone [phone] Care Team Providers Care Toggle Press Operator Name Role Phone Rafa Bergman MD Primary Care Provide r Reason for Visit * Reason Onset Date Comments [facility]: Acute 01/28/2024 Encounter Details Date Type Department Care Team (Late st Contact Info) Description 01/28/2024 Telephone [facility], [facility] [address] [place] [facility] [place] [address] Nan Calix RN [address] [facility] [place] [address] [facility]: Acute Allergies Active Allergy [...] as needed for Constipation. 03/26/2023 Active Nystatin 932592 UNIT/GM External Powder (Nystop)Indications: Rash and nonspecific [...] goal LDL below 70,Coronary artery disease involving [place] coronary artery of [place] heart without angina pectoris TAKE ONE TABLET BY MOUTH IN THE MORNING 90 Tablet 3 01/10/2024 Active Propranolol HCl 10 MG Oral Tablet (Inderal)Indications :Sinus tachycardia,Tachy-br gege syndrome (HCC),Coronary artery disease involving [place] coronary artery of [place] heart without angina pectoris,Presence of cardiac pacemaker,Palpitatio [...] [place] heart without angina pectoris 07/08/2018 Overview: history of NSTEMI status post AMIE to LAD (culprit) and RCA, 04/28/2018 Last Assessment & Plan: Cardiac rehab at [facility] 2x week Arthritis of left [...] 09/13/2022 11/08/2023 Atherosclerosis of coronary artery of [place] heart without angina pectoris 09/10/2022 10/31/2022 [...] filter 02/28/2015 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 Nan Calix RN [facility] Intake [phone] * Telephone Encounter - David Maya DO [...] and correspondence: SUNNY to Rehana's Care Team underground utility locator Pool please work on the following: contact the caller with advice and orders as above David Maya DO [facility] - [facility] 01/28/2024 Scheduled appointments in the next 60 days: Future Appointments-next 60 days Date/Time Provider Specialty Dept Phone 02/04/2024 11:15 AM Pedro Tinsley DO Ophthalmology [phone] 02/06/2024 8:00 AM (Arrive by 7:45 AM) Rafa Bergman MD Family Medicine [phone] 02/06/2024 5:30 PM Olinda Briggs RN [facility] [phone] 02/17/2024 11:10 AM [facility] [phone] 02/25/2024 2:30 PM (Arrive by 2:15 PM) Arianna Szymanski MD Hematology Oncology [phone] 03/30/2024 11:00 AM Leon Live PA-C [facility] [phone] 05/22/2024 3:45 PM (Arrive by 3:30 PM) Guy Trivedi MD Dermatology [phone] 06/25/2024 9:00 AM (Arrive by 8:45 AM) Rafa Bergman MD Family Medicine [phone] 07/21/2024 10:00 AM [facility] Radiology [phone] 07/27/2024 10:00 AM (Arrive by 9:45 AM) Deangelo Holley MD Rheumatology [phone] * Telephone Encounter - Nan Calix RN - 01/28/2024 11:50 AM EDT [facility] underground utility locator Acute Call Date: 01/28/2024 Time: 11:50 AM [...] ABX recommendations and call you back. Call [facility] for SOB, worsening sxs. Treatment/Plan: (need to report) Level of call: Non-Acute Recommended treatment plan: Clinical advice given over the phone Routing to [facility] and Care Team for further recommendations. [facility]'s scheduled. Nan Calix RN [facility] Intake [phone] Call back instructions provided to patient. documented in this encounter Plan of Treatment Upcoming Encounters Date Type Department Care Team (Late st Contact Info) Description 01/29/2024 4:00 PM EDT Scheduled Telephone [facility], [facility] [address] [place] [address] Coordinator, [facility] [address] [place] [address] 01/30/2024 10:45 AM EDT Scheduled Telephone [facility], [facility] [address] [place] [address] Coordinator, [facility] [address] [place] [address] 02/04/2024 11:15 AM EST Office Visit Ophthalmology, [facility] [address] [place] [address] Pedro Tinsley DO [address] [place] [address] 02/06/2024 8:00 AM EST Office Visit Family Medicine [address] [place] [phone] Rafa Bergman MD [address] [place] [address] [place] [address] 02/06/2024 5:30 PM EST Home Visit [facility], [facility] [address] [place] [address] Olinda Briggs, RN [address] [place] [address] 02/17/2024 11:10 AM EST Laboratory Laboratory [address] [place] [phone] [place], Lab [address] [place] [address] 02/25/2024 2:30 PM EST Office Visit Hematology/Oncology [facility] [place] [address] [place] [phone] Arianna Szymanski MD [address] [facility] [place] [address] 03/30/2024 11:00 AM EST Home Visit [facility], [facility] [address] [place] [address] Leon Live PA-C [address] [place] [address] 05/22/2024 3:45 PM EST Office Visit Dermatology [facility] [place] [address] [place] [address] Guy Trivedi MD [address] [facility] [place] [address] 06/25/2024 9:00 AM EDT Office Visit Family Medicine [address] [place] [phone] Rafa Bergman MD [address] [place] [address] [place] [address] 07/21/2024 10:00 AM EDT Imaging Radiology, [address] [place] [address] 07/27/2024 10:00 AM EDT Office Visit Rheumatology [address] [place] [phone] Deangelo Holley MD [address] [place] [address] [place] [address] Health Maintenance Due Date Last Done Comments [...] Additional history exists CKD HGB USE SMARTSET 19931 06/26/202406/26, 06/27/2023, 04/26/2023, Additional history exists CKD PHOS USE SMARTSET 95016 06/26/202405/31, 04/19/2021, 11/27/2019, Additional history exists DXA [...] D LEVEL ONCE IN A LIFETIME-USE SMARTSET# 80313 Completed 06/27/2023, 11/06/2021, 12/28/2019, Additional history exists HPV (Gardasil) Vaccine Aged Out No lo nger eligible based on patient's age to complete this topic MENINGOCOCCAL (MENACTRA/MENVEO) Aged Out No longer eligible based on patient's age to complete this topic documented as of this encounter Medical Devices Implanted Type Area Pest Management Supervisor Device Identifier Shelf Expiration Date Model / Serial / Lot Lens Intraoc 21.5 - [id number] - [id number] Implanted:Qty: 1 on 05/12/2019 by Yury Brady MD at OR [facility] Right: Eye [employer] 12/30/2023 [id number] / [id number] / [id number] Lens Intraoc 22.5 - [id number] - [id number] Implanted:Qty: 1 on 04/05/2020 by Yury Brady MD at OR 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
--- OUTSIDE RECORDS SUMMARY | 2024-07-24 00:21 | External Medical Summary | Summary of Care ---
Author Name Unknown Organization [facility] Address [address] [facility] [place] [address] Phone [phone] Care Team Providers Care Mechanical Service Technician Name Role Phone Rafa Bergman MD Primary Care Provide r Reason for Visit * Reason Onset Date Comments [facility]: Acute 01/28/2024 Encounter Details Date Type Department Care Team (Late st Contact Info) Description 01/28/2024 Telephone [facility], [facility] [address] [place] [address] Nan Calix RN [address] [place] [address] [facility]: Acute Allergies Active Allergy [...] as needed for Constipation. 03/26/2023 Active Nystatin 935245 UNIT/GM External Powder (Nystop)Indications :Rash and nonspecific [...] tachycardia,Tachy-b rady syndrome (HCC),Coronary artery disease involving [place] coronary artery of [place] heart without angina pectoris,Presence of cardiac pacemaker,Palpitati [...] 01/03/2023 History of [place] (myocardial infarction) 11/27/2022 History of pulmonary embolism [...] of [place] heart without angina pectoris 07/08/2018 Overview: history of NSTEMI status post AMIE to LAD (culprit) and RCA, 04/28/2018 Last Assessment & Plan: Cardiac rehab at [facility] 2x week Arthritis of left [...] encounter Miscellaneous Notes * Addendum Note - Kate Maya DO - 01/28/2024 12:29 PM EDTAddended by: KATE MAYA on: 01/28/2024 12:29 PM Modules accepted: Orders * Telephone Encounter - Kate Maya DO - 01/28/2024 12:29 PM EDT [facility] QuickNote Recommendations: Antibiotics given as initially requested Orders: Plan Clindamycin HCl 300 MG Oral Capsule To Do: Please see below for follow up items to be completed and correspondence: parachute rigger Pool please work on the following: contact the caller with advice and orders as above Kate Maya DO [facility] - [facility] 01/28/2024 Scheduled appointments in the next 60 days: Future Appointments-next 60 days Date/Time Provider Specialty Dept Phone 01/29/2024 4:00 PM Coordinator, [facility] [phone] 01/30/2024 10:45 AM Coordinator, [facility] [phone] 02/04/2024 11:15 AM Pedro Tinsley DO Ophthalmology [phone] 02/06/2024 8:00 AM (Arrive by 7:45 AM) Rafa Bergman MD Family Medicine [phone] 02/06/2024 5:30 PM Olinda Briggs RN [facility] [phone] 02/17/2024 11:10 AM [facility] [phone] 02/25/2024 2:30 PM (Arrive by 2:15 PM) Arianna Szymanski MD Hematology Oncology [phone] 03/30/2024 11:00 AM Leon Live PA-C [facility] [phone] 05/22/2024 3:45 PM (Arrive by 3:30 PM) Guy Trivedi MD Dermatology [phone] 06/25/2024 9:00 AM (Arrive by 8:45 AM) Rafa Bergman MD Family Medicine [phone] 07/21/2024 10:00 AM [facility] Radiology [phone] 07/27/2024 10:00 AM (Arrive by 9:45 AM) Deangelo Holley MD Rheumatology [phone] * Telephone Encounter - Nan Calix RN [...] on this. Nan Calix RN [facility] Intake [phone] * Telephone Encounter - Kate Maya DO - 01/28/2024 12:05 PM EDT [facility] Subprogram: Focused Care Management (3-9 months) Recommendations: [...] and correspondence: FYI to Rehana's Care Team parachute rigger Pool please work on the following: contact the caller with advice and orders as above Kate Maya DO [facility] 01/28/2024 Scheduled appointments in the next 60 days: Future Appointments-next 60 days Date/Time Provider Specialty Dept Phone 02/04/2024 11:15 AM Pedro Tinsley DO Ophthalmology [phone] 02/06/2024 8:00 AM (Arrive by 7:45 AM) Rafa Bergman MD Family Medicine [phone] 02/06/2024 5:30 PM Olinda Briggs RN [facility] [phone] 02/17/2024 11:10 AM [facility] [phone] 02/25/2024 2:30 PM (Arrive by 2:15 PM) Arianna Szymanski MD Hematology Oncology [phone] 03/30/2024 11:00 AM Leon Live PA-C [facility] [phone] 05/22/2024 3:45 PM (Arrive by 3:30 PM) Guy Trivedi MD Dermatology [phone] 06/25/2024 9:00 AM (Arrive by 8:45 AM) Rafa Bergman MD Family Medicine [phone] 07/21/2024 10:00 AM [facility] Radiology [phone] 07/27/2024 10:00 AM (Arrive by 9:45 AM) Deangelo Holley MD Rheumatology [phone] * Telephone Encounter - Nan Calix RN - 01/28/2024 11:50 AM EDT [facility] parachute rigger Acute Call Date: 01/28/2024 Time: 11:50 AM Name: Rehana Moran : 1945 Caller: Patient HPI: Rehana Moran is a 78 year old female that is calling [facility] Intake to report: 3-4 day [...] and call you back. Call [facility] for SOB, worsening sxs. Treatment/Plan: (need to report) Level of call: Non-Acute Recommended treatment plan: Clinical advice given over the phone Routing to [facility] and Care Team for further recommendations. FCC's scheduled. Nan Calix RN [facility] Intake [phone] Call back instructions provided to patient. documented in this encounter Plan of Treatment Upcoming Encounters Date Type Department Care Team (Late st Contact Info) Description 01/29/2024 4:00 PM EDT Scheduled Telephone [facility], [facility] [address] [place] [place] [address] Coordinator, [facility] [address] [facility] [place] [place] [address] 01/30/2024 10:45 AM EDT Scheduled Telephone [facility], [facility] [address] [place] [address] Coordinator, [facility] [address] [facility] [place] [address] 02/04/2024 11:15 AM EST Office Visit Ophthalmology, [facility] [address] [place] [address] Pedro Tinsley, [address] [place] [address] 02/06/2024 8:00 AM EST Office Visit Family [facility] [address] [place] [phone] Rafa Bergman MD [address] [place] [address] [place] [address] 02/06/2024 5:30 PM EST Home Visit [facility], [facility] [address] [facility] [place] [address] Olinda Briggs, RN [facility] [place] [address] 02/17/2024 11:10 AM EST Laboratory Laboratory [address] [place] [phone] [address] [place] [address] 02/25/2024 2:30 PM EST Office Visit Hematology/Oncology [facility] [place] [address] [place] [phone] Arianna Szymanski MD [address] [place] [address] 03/30/2024 11:00 AM EST Home Visit [facility], [facility] [address] [facility] [place] [address] Leon Live PA-C [facility] [place] [address] 05/22/2024 3:45 PM EST Office Visit Dermatology [facility] [place] [address] [place] [address] Guy Trivedi MD [address] [place] [address] 06/25/2024 9:00 AM EDT Office Visit Family Medicine [address] [place] [phone] Rafa Bergman MD [address] [place] [address] [place] [address] 07/21/2024 10:00 AM EDT Imaging Radiology, [place] [address] [facility] [place] [address] 07/27/2024 10:00 AM EDT Office Visit Rheumatology [address] [place] [phone] Deangelo Holley MD [facility] [place] [address] Health Maintenance Due Date Last Done Comments [...] Additional history exists CKD HGB USE SMARTSET 97346 06/26/202406/26, 06/27/2023, 04/26/2023, Additional history exists CKD PHOS USE SMARTSET 74485 06/26/202405/31, 04/19/2021, 11/27/2019, Additional history exists DXA Scan 07/18/2024 07/18/2022, 0411/2022, 12/22/2019, Additional history exists TSH 11/14/2024 11/15/2023, 05/2023, 08/21/2023, Additional history exists DTap/Tdap Vaccines (3 - Td or Tdap) 09/30/2033 10/01/2023, 11/03/2007 Hepatitis B Vaccine Completed 03/18/2009, 06/14/2008, 05/12/2008 Pneumococcal Vaccine: 65+ Years Completed 03/28/2015, 03/20/2010, 11/15/2004 RETIRED - COLONOSCOPY-EVERY 5 YRS AGES 18-100 Discontinued 02/27/2017, 02/27/2017, 10/17/2004 Zoster Vaccines Completed 06/12/2021, 02/01, 11/04/2012 VITAMIN D LEVEL ONCE IN A LIFETIME-USE SMARTSET# 55222 Completed 06/27/2023, 11/06/2021, 12/28/2019, Additional history exists HPV (Gardasil) Vaccine Aged Out No lo nger eligible based on patient's age to complete this topic MENINGOCOCCAL (MENACTRA/MENVEO) Aged Out No longer eligible based on patient's age to complete this topic documented as of this encounter Medical Devices Implanted Type Area Institutional Custodian Device Identifier Shelf Expiration Date Model / Serial / Lot Lens Intraoc 21.5 - [id number] - [id number] Implanted:Qty: 1 on 05/12/2019 by Yury Brady MD at OR [facility] Right: Eye [employer] 12/30/2023 [id number] / [id number] / [id number] Lens Intraoc 22.5 - [id number] - [id number] Implanted:Qty: 1 on 04/05/2020 by Yury Brady MD at OR [facility] Left: Eye [employer]CH [employer] LOMB 09/28/2024 [id number] / [id number] / [id number] documented as of this encounter Advance Directives Documents on File Type Date Recorded Patient Material Combiner Expl anation Advance Directives and Living Will [...] Agen t (per Health Care Power of Telecommunications Sales Representative document) Guille Urban Adult Child Health Care Agen t (per Health Care Power of Telecommunications Sales Representative document) Care Teams Mechanical Service Technician Relationship Specialty Start Date End Date Rafa Bergman MD [address] [place] [address] [place] [address] PCP - General Family Medicine 04/19/21 documented as of this encounter
--- OUTSIDE RECORDS SUMMARY | 2024-07-24 04:33 | External Medical Summary | Summary of Care ---
Author Name Unknown Organization [facility] Address [address] [place] [facility] [place] [address] Phone [phone] Care Team Providers Care Exhaust Machine Operator Name Role Phone Rafa Bergman MD Primary Care Provide r Reason for Visit * Reason Onset Date Comments Abnormal Test Results 07/23/2024 Encounter Details Date Type Department Care Team (Late st Contact Info) Description 07/23/[address] [place] [phone] Rafa Bergman MD [address] [place] [address] [place] [address] Abnormal Test Results Allergies Active Allergy Reactions [...] goal LDL below 70,Coronary artery disease involving [place] coronary artery of [place] heart without angina pectoris TAKE ONE TABLET [...] tachycardia,Tach y-chintan syndrome (HCC),Coronary artery disease involving [place] coronary artery of [place] heart without angina pectoris,Presenc e of cardiac [...] by mouth in the morning. 5 07/30/19 25 Active Baclofen 10 MG Oral Tablet (Lioresal)Indica tions:Pain in joint of right shoulder Take 1 Tablet by mouth at bedtime as needed for Pain. 20 Tablet Active Hospital, Clinic, or Other Facility [...] S/P angioplasty with stent 11/27/2018 Atherosclerosis of [place] co ronary artery of [place] heart without angina pectoris 07/08/2018 Overview (11/21/2023): history of NSTEMI status post AMIE to LAD (culprit) and RCA, 04/28/2018 Assessment & Plan (06/23/2024 3:37 PM EDT): Follows with cardiology Continue statin Assessment & Plan (01/24/2024 4:40 PM EDT): Cardiac rehab at [facility] 2x week Assessment & Plan (11/21/2023 [...] 09/13/2022 11/08/2023 Atherosclerosis of coronary artery of [place] heart without angina pectoris 09/10/2022 10/31/2022 Hypothyroidism [...] filter 02/28/2015 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 11/2018 CKD [...] 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 * Telephone Encounter - Joy Alfred LPN - 07/23/2024 2:13 PM EDT Pt here for nurse visit (EKG). Pt was short of breath during the EKG. Dr. Mclain reviewed the EKG and discussed results with patient. documented in this encounter Plan of Treatment Upcoming Encounters Date Type Department Care Team (Late st Contact Info) Description 07/25/2024 9:45 AM EDT Scheduled Telephone [facility], [facility] [address] [facility] [place] [address] [facility], Nurse [facility] [address] [facility] [place] [address] 07/27/2024 3:30 PM EDT Office Visit Cardiology, [facility] [address] [place] [address] Mykel Orellana PA-C [address] [place], [place] [address] 07/28/2024 10:00 AM EDT Home Visit [facility], [facility] [address] [place] [address] Leon Live PA-C [address] [place] [address] 07/30/2024 1:30 PM EDT Imaging Radiology [facility] [address] [place] [address] 08/11/2024 1:45 PM EDT Office Visit Ophthalmology, [facility] [address] [place] [address] Pedro Tinsley, DO [address] [place] [address] Nurse Roscoe Leyva [address] [place], [place] [address] Photographer Justen Leyva [address] [place] [address] 08/18/2024 10:20 AM EDT Laboratory Laboratory [address] [place] [phone] [place] [address] 08/25/2024 3:30 PM EDT Office Visit Hematology/Oncology [place] [address] [place] [phone] Arianna Szymanski MD [address] [place] [address] 09/07/2024 3:30 PM EDT Office Visit Rheumatology [address] [place] [phone] José Miguel Cullen CRNP [address] [place] [address] 09/11/2024 12:50 PM EDT Office Visit Dermatology, Jesu Wilson [address] [place] [address] Dasha Nelson PA-C [address] [place] [address] 09/29/2024 3:10 PM EDT Office Visit Urogynecology [facility] [address] [place] [address] Quincy Garcia MD [address] [place] [address] 10/05/2024 1:30 PM EDT Office Visit Cardiology, [facility] [address] [place] [address] Charles Ortega O, DO [address] [place] [address] 10/05/2024 2:15 PM EDT Telemedicine Neurology [facility] [place] [address] [place], [place] [address] Alfonso Manning MD [address] [place] [address] 12/30/2024 12:40 PM EDT Office Visit Family Medicine [address] [place] [phone] CatIrene Lomas MD [address] [place] [address] [place] [address] 08/17/2025 2:30 PM EDT Cardiac Studies Cardiology [address] [place] [address] [facility] [address] [place] [address] Health Maintenance Due Date Last Done Comments Adult Wellness Visit 02/06/2018 02/06/2017 Depression Screening 07/17/2022 07/17/2021 COVID-19 Vaccine ( season) 2023 02/05/2022, 08/02/2021, 02/28/2021, Additional history exists Albumin/Creatinine Ratio 02/13/2024 023, 03/21/2022, 04/19/2021, Additional history exists HbA1c 04/26/2024 04/26/2023, 03/02, 04/19/2021, Additional history exists CKD PHOS USE SMARTSET 95456 06/26/202405/31, 04/19/2021, 11/27/2019, Additional history exists DXA Scan 07/18/2024 07/18/2022, 06/30, 12/22/2019, Additional history exists Influenza Vaccine (FLU shot) (Season Ended) 2024 04/19/2023, 01/30/2022, 12/28/2020, Additional history exists GFR 12/26/2024 06/25/2024, 03/0 11/2024, 02/17/2024, Additional history exists CKD HGB USE SMARTSET 29197 02/16/202502/16, 02/17/2024, 06/27/2023, Additional history exists TSH [...] D LEVEL ONCE IN A LIFETIME-USE SMARTSET# 09273 Completed 06/27/2023, 11/06/2021, 12/28/2019, Additional history exists [...] this encounter Medical Devices Implanted Type Area Malt Liquors Sales Supervisor Device Identifier Shelf Expiration Date Model / Serial / Lot Lens Intraoc 21.5 - [id number] - [id number] Implanted:Qty: 1 on 05/12/2019 by Yury Brady MD at OR [facility] Right: Eye BAUSCH 12/30/2023 [id number] / [id number] / [id number] Lens Intraoc 22.5 - [id number] - [id number] Implanted:Qty: 1 on 04/05/2020 by Yury Brady MD at OR [facility] Left: Eye BAUSCH 09/28/2024 [id number] / [id number] / [id number] documented as of this encounter Advance Directives Documents on File Type Date Recorded Patient Consulting Technical Director Expl anation Advance Directives and Living Will [...] Agen t (per Health Care Power of Wet Room Worker document) Guille Urban Adult Child Health Care Agen t (per Health Care Power of Wet Room Worker document) [email or web address] om Care Teams Exhaust Machine Operator Relationship Specialty Start Date End Date Rafa Bergman MD [address] [place] [address] [place] [phone] PCP - General Family Medicine 04/19/21 documented as of this encounter
--- OUTSIDE RECORDS SUMMARY | 2024-07-24 04:33 | External Medical Summary | Summary of Care ---
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 Not on file Not [...] Issa CRNP - 07/23/2024 2:26 PM EDT [facility] ER called and given report of patient [...] AM EDT Scheduled Telephone [facility], [facility] 132 [facility] [place] [address] [facility], Nurse [facility] [address] [facility] [place] [address] 07/27/2024 3:30 PM EDT Office Visit Cardiology, [facility] [address] [place] [address] Mykel Orellana PA-C [address] [place], [place] [address] 07/28/2024 10:00 AM EDT Home Visit [facility], [facility] [address] [place] [address] Leon Live PA-C [address] [place] [address] 07/30/2024 1:30 PM EDT Imaging Radiology [facility] [address] [place] [address] 08/11/2024 1:45 PM EDT Office Visit Ophthalmology, [facility] [address] [place] [address] Pedro Tinsley, DO [address] [place] [address] Nurse Roscoe Leyva [address] [place], [place] [address] Photographer Justen Leyva [address] [place] [address] 08/18/2024 10:20 AM EDT Laboratory Laboratory [address] [place] [phone] [place] [address] 08/25/2024 3:30 PM EDT Office Visit Hematology/Oncology [place] [address] [place] [phone] Arianna Szymanski MD [address] [place] [address] 09/07/2024 3:30 PM EDT Office Visit Rheumatology [address] [place] [phone] José Miguel Cullen CRNP [address] [place] [address] 09/11/2024 12:50 PM EDT Office Visit Dermatology, Jesu Wilson [address] [place] [address] Dasha Nelson PA-C [address] [place] [address] 09/29/2024 3:10 PM EDT Office Visit Urogynecology [facility] [address] [place] [address] Quincy Garcia MD [address] [place] [address] 10/05/2024 1:30 PM EDT Office Visit Cardiology, [facility] [address] [place] [address] Charles Ortega O, DO [address] [place] [address] 10/05/2024 2:15 PM EDT Telemedicine Neurology [facility] [place] [address] [place], [place] [address] Alfonso Manning MD [address] [place] [address] 12/30/2024 12:40 PM EDT Office Visit Family Medicine [address] [place] [phone] CatIrene Lomas MD [address] [place] [address] [place] [address] 08/17/2025 2:30 PM EDT Cardiac Studies Cardiology [address] [place] [address] [facility], Pacer [address] [place] [address] Health Maintenance Due Date Last Done Comments Adult Wellness Visit 02/06/2018 02/06/2017 Depression Screening 07/17/2022 07/17/2021 COVID-19 Vaccine ( season) 2023 02/05/2022, 08/02/2021, 02/28/2021, Additional history exists Albumin/Creatinine Ratio 02/13/2024 023, 03/21/2022, 04/19/2021, Additional history exists HbA1c 04/26/2024 04/26/2023, 03/02, 04/19/2021, Additional history exists CKD PHOS USE SMARTSET 70646 06/26/202405/31, 04/19/2021, 11/27/2019, Additional history exists DXA Scan 07/18/2024 07/18/2022, 06/30, 12/22/2019, Additional history exists Influenza Vaccine (FLU shot) (Season Ended) 2024 04/19/2023, 01/30/2022, 12/28/2020, Additional history exists GFR 12/26/2024 06/25/2024, 03/0 11/2024, 02/17/2024, Additional history exists CKD HGB USE SMARTSET 31472 02/16/202502/16, 02/17/2024, 06/27/2023, Additional history exists TSH [...] D LEVEL ONCE IN A LIFETIME-USE SMARTSET# 46226 Completed 06/27/2023, 11/06/2021, 12/28/2019, Additional history exists [...] this encounter Medical Devices Implanted Type Area Emissions Testing And Repair Technician Device Identifier Shelf Expiration Date Model / Serial / Lot Lens Intraoc 21.5 - [id number] - [id number] Implanted:Qty: 1 on 05/12/2019 by Yury Brady MD at OR [facility] Right: Eye BAUSCH 12/30/2023 [id number] / [id number] / [id number] Lens Intraoc 22.5 - [id number] - [id number] Implanted:Qty: 1 on 04/05/2020 by Yury Brady MD at OR [facility] Left: Eye BAUSCH 09/28/2024 [id number] / [id number] / [id number] documented as of this encounter Advance Directives Documents on File Type Date Recorded Patient Toolmaker Expl anation Advance Directives and Living Will [...] t (per Health Care Power of Clinical Rn Manager document) Guille Urban Adult Child Health Care Agen t (per Health Care Power of Clinical Rn Manager document) [email or web address] Care Teams Traffic Checker Relationship Specialty Start Date End Date Rafa Bergman MD [address] [place] [address] [place] [phone] PCP - General Family Medicine 04/19/21 documented as of this encounter
--- OUTSIDE RECORDS SUMMARY | 2024-07-24 04:33 | External Medical Summary | Summary of Care ---
Author Name Unknown Organization [facility] Address [address] [facility] [place] [address] Phone [phone] Care Team Providers Care Stopping Builder Name Role Phone Rafa Bergman MD Primary Care Provide r Encounter Details Date Type Department Care Team (Late st Contact Info) Description 07/23/2024 2:00 PM EDT Nurse Only Ancillary [address] [place] [address] [place], Nurse [address] [place] [address] Arrived Allergies Active Allergy Reactions Criticality Noted [...] below 70,Coronary artery disease involving [place] coronary artery of [place] heart without angina pectoris TAKE ONE TABLET [...] syndrome (HCC),Coronary artery disease involving [place] coronary artery of [place] heart without angina pectoris,Presenc e of cardiac [...] 270 Capsule 07/13/2024 6:43 AM EDT Active Pantoprazole Sodium 40 MG Oral Tablet [...] with stent 11/27/2018 Atherosclerosis of [place] co ronary artery of [place] heart without angina pectoris 07/08/2018 Overview (11/21/2023): [...] Atherosclerosis of coronary artery of [place] heart without angina pectoris 09/10/2022 10/31/2022 Hypothyroidism [...] Atherosclerotic heart diseas e of [place] coronary artery with angina pectoris 11/2018 CKD [...] No 02/06/2024 Does the household have a [email or web address] source of income? 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 documented in this encounter Procedure Notes * Jef Rocha DO - 07/23/2024 2:04 PM EDTAssociated Order(s): EKG REASON FOR STUDY: Tachycardia SOSA CONCLUSIONS: Sinus tachycardia Nonspecific T wave abnormality Abnormal ECG When compared with ECG of 23-Jul-2024 14:03, No significant change was found Ventricular Rate: 108 Atrial Rate: 108 HI Interval: 164 QRS Duration: 90 QT/QTc: 348/466 ms P-R-T Rosenhayn: 42 : 25 : 11 degrees documented in this encounter Plan of Treatment Upcoming Encounters Date Type Department Care Team (Late st Contact Info) Description 07/25/2024 9:45 AM EDT Scheduled Telephone [facility] [address] [place] [address] [facility], Nurse [facility] [address] [place] [address] 07/27/2024 3:30 PM EDT Office Visit Cardiology, [facility] [address] [place] [phone] Mykel Orellana PA-C [address] [place] [address] 07/28/2024 10:00 AM EDT [facility] Visit [facility] [address] [place] [address] Leon Live PA-C [address] [place] [address] 07/30/2024 1:30 PM EDT Imaging Radiology [facility] [address] [place] [phone] 08/11/2024 1:45 PM EDT Office Visit Ophthalmology, [facility] [address] [place] [phone] Pedro Tinsley DO [address] [place] [address] [place] Nurse Roscoe Campuzano [address] [place] [address] Photographer Justen Leyva [address] [place] [address] 08/18/2024 10:20 AM EDT Laboratory Laboratory [address] [place] [phone] [place] [address] 08/25/2024 3:30 PM EDT Office Visit Hematology/Oncology [facility] [address] [place] [phone] Arianna Szymanski MD [address] [place] [address] 09/07/2024 3:30 PM EDT Office Visit Rheumatology [address] [place] [phone] José Miguel Cullen CRNP [address] [place] [address] 09/11/2024 12:50 PM EDT Office Visit Dermatology, [facility] [place] [address] [place] [address] Dasha Nelson PA-C [address] [place] [address] 09/29/2024 3:10 PM EDT Office Visit Urogynecology [facility] [address] [facility] [place] [address] Quincy Garcia MD [address] [place] [address] 10/05/2024 1:30 PM EDT Office Visit Cardiology, [facility] [address] [place] [phone] Charles Ortega DO [address] [place] [address] 10/05/2024 2:15 PM EDT Telemedicine Neurology [facility] [address] [facility] [place] [address] Alofnso Manning MD [facility] [address] 12/30/2024 12:40 PM EDT Office Visit Family Medicine [address] [place] [phone] Irene Bowens MD [address] [place] [address] [place] [phone] 08/17/2025 2:30 PM EDT Cardiac Studies Cardiology [address] [place] [address] [facility] [place] [address] Health Maintenance Due Date Last Done Comments Adult Wellness Visit 02/06/2018 02/06/2017 Depression Screening 07/17/2022 07/17/2021 COVID-19 Vaccine ( season) 2023 02/05/2022, 08/02/2021, 02/28/2021, Additional history exists Albumin/Creatinine Ratio 02/13/2024 023, 03/21/2022, 04/19/2021, Additional history exists HbA1c 04/26/2024 04/26/2023, 03/02, 04/19/2021, Additional history exists CKD PHOS USE SMARTSET 02288 06/26/202405/31, 04/19/2021, 11/27/2019, Additional history exists DXA Scan 07/18/2024 07/18/2022, 06/30, 12/22/2019, Additional history exists Influenza Vaccine (FLU shot) (Season Ended) 2024 04/19/2023, 01/30/2022, 12/28/2020, Additional history exists GFR 12/26/2024 06/25/2024, 03/0 11/2024, 02/17/2024, Additional history exists CKD HGB USE SMARTSET 85538 02/16/202502/16, 02/17/2024, 06/27/2023, Additional history exists TSH [...] D LEVEL ONCE IN A LIFETIME-USE SMARTSET# 32533 Completed 06/27/2023, 11/06/2021, 12/28/2019, Additional history exists [...] this encounter Medical Devices Implanted Type Area Renewable Energy Trader Device Identifier Shelf Expiration Date Model / Serial / Lot Lens Intraoc 21.5 - [id number] - [id number] Implanted:Qty: 1 on 05/12/2019 by Yury Brady MD at OR [facility] Right: Eye BAUSCH 12/30/2023 [id number] / [id number] / [id number] Lens Intraoc 22.5 - [id number] - [id number] Implanted:Qty: 1 on 04/05/2020 by Yury Brady MD at OR [facility] Left: Eye BAUSCH 09/28/2024 [id number] / [id number] / [id number] documented as of this encounter Procedures Procedure Name Priority Date/Time Associated Diagnosis Comments HI ECG ROUTINE ECG W/LEAST 12 LDS W/I&R Routine 07/23/2024 2:04 PM EDT Tachy-chintan syndrome (HCC) documented in this encounter Results * EKG (07/23/2024 2:04 PM EDT) 07/23/2024 2:04 PM EDT Narrative Procedure Note Jef Rocha, DO - 07/23/2024 2:04 PM EDT REASON FOR STUDY: Tachycardia SOSA CONCLUSIONS: Sinus tachycardia Nonspecific T wave abnormality Abnormal ECG When compared with ECG of 23-Jul-2024 14:03, No significant change was found Ventricular Rate: 108 Atrial Rate: 108 HI Interval: 164 QRS Duration: 90 QT/QTc: 348/466 ms P-R-T Rosen[place]n: 42 : 25 : 11 degrees Leon Live PA-C EKG Final Result [facility] documented in this encounter Visit Diagnoses Diagnosis Hypertensive kidney disease with stage 3a chronic kidney disease- Primary Atherosclerosis of [place] coronary artery of [place] heart without angina pectoris Dyslipidemia, goal LDL below 70 Other and unspecified hyperlipidemia History of pulmonary embolism Personal history of pulmonary embolism Tachy-chintan syndrome (HCC) Sinoatrial node dysfunction S/P placement of cardiac pacemaker Cardiac pacemaker in situ Arthralgia of right hip Gastro-esophageal reflux disease with esophagitis, without bleeding Sinus tachycardia Other specified cardiac dysrhythmias Coronary artery disease involving [place] coronary artery of [place] heart without angina pectoris Presence of cardiac pacemaker Cardiac pacemaker in situ Palpitations HTN, goal below 140/90 Unspecified essential hypertension Hypertensive kidney disease with stage 3a chronic kidney disease- Primary Dyslipidemia, goal LDL below 70 Other and unspecified hyperlipidemia Gastro-esophageal reflux disease with esophagitis, without bleeding Atherosclerosis of [place] coronary artery of [place] heart without angina pectoris Advanced care planning/counseling [...] kidney disease- Primary Atherosclerosis of [place] coronary artery of [place] heart without angina pectoris Migraine without aura and without status migrainosus, not intractable Migraine without aura, without mention of intractable migraine without mention of status migrainosus Tachy-chintan syndrome (HCC)- Primary Sinoatrial node dysfunction documented in this encounter Advance Directives Documents on File Type Date Recorded Patient Customer Service Administrator Expl anation Advance Directives and Living [...] t (per Health Care Power of Sql Server Dba document) Guille Urban Adult Child Health Care Agen t (per Health Care Power of Sql Server Dba document) [email or web address] om Care Teams Stopping Builder Relationship Specialty Start Date End Date Rafa Bergman MD [address] [place] [address] [place] [phone] PCP - General Family Medicine 04/19/21 documented as of this encounter
--- OUTSIDE RECORDS SUMMARY | 2024-07-24 04:34 | External Medical Summary | Summary of Care ---
Author Name Unknown Organization [facility] Address [address] [place] [address] Phone [phone] Care Team Providers Care Assistant Women'S Basketball Coach Name Role Phone Rafa Bergman MD Primary Care Provide r Reason for Visit * Reason Onset Date Comments [facility]: Maintenance 07/23/2024 Encounter Details Date Type Department Care Team (Late st Contact Info) Description 07/23/2024 1:00 PM EDT Scheduled Telephone [facility], [facility] [address] [facility] [place] [address] [facility], Nurse [facility] [address] [facility] [place] [address] Allergies Active Allergy Reactions Criticality Noted Date [...] goal LDL below 70,Coronary artery disease involving [place] coronary artery of [place] heart without angina pectoris TAKE ONE TABLET [...] tachycardia,Tach y-chintan syndrome (HCC),Coronary artery disease involving [place] coronary artery of [place] heart without angina pectoris,Presenc e of cardiac [...] S/P angioplasty with stent 11/27/2018 Atherosclerosis of [place] co ronary artery of [place] heart without angina pectoris 07/08/2018 Overview (11/21/2023): history of NSTEMI status post AMIE to LAD (culprit) and RCA, 04/28/2018 Assessment & Plan (06/23/2024 3:37 PM EDT): Follows with cardiology Continue statin Assessment & Plan (01/24/2024 4:40 PM EDT): Cardiac rehab at [facility] 2x week Assessment & Plan (11/21/2023 [...] 09/13/2022 11/08/2023 Atherosclerosis of coronary artery of [place] heart without angina pectoris 09/10/2022 10/31/2022 Hypothyroidism [...] filter 02/28/2015 Atherosclerotic heart diseas e of [place] coronary artery with angina pectoris 11/2018 CKD [...] the money to buy more. 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 ZOLTAN rincon tyre fitter spoke to patient today see other notes * Telephone Encounter - Brunilda Higgins RN - 07/23/2024 9:06 AM EDT [facility] Telephonic Nurse Follow-Up Call [facility] Subprogram: Focused Care Management [...] appointment next Saturday EKG ordered- appointment at [facility] tomorrow. Scheduled with Mykel Orellana PA-C 07/27 Patient aware of above. Voices understanding. 07/23: Spoke with pt, Feels her breathing is the same as yesterday, dyspneic on exertion and recovers with rest, but LE edema is improved some. HR 105, SpO2 95% on room air today. Pt confirmed she did start Lasix 20 mg daily to take until 07/28 [facility] provider HV. Is going for her EKG this afternoon. Sees cardiology Saturday, 07/27. F/u call scheduled for Saturday. Disposition: Provider Home Visit scheduled Future Visits Scheduled: Future Appointments-next 60 days Date/Time Provider Specialty Dept Phone 07/23/2024 1:00 PM Tariq, Nurse Malena Mary [facility] [phone] 07/23/2024 2:00 PM Nurse Jude [facility] Ancillary [phone] 07/25/2024 9:45 AM [facility] Nurse Mccloud Usman [facility] [phone] 07/27/2024 3:30 PM (Arrive by 3:15 PM) Mykel Orellana PA-C Cardiology [phone] 07/28/2024 10:00 AM Leon Live PA-C [facility] [phone] 07/30/2024 1:30 PM CHENG STEVENS Radiology [phone] 08/11/2024 1:45 PM Photographer Justen Leyva; Nurse [place]coe Leyva; Pedro Tinsley, DO Ophthalmology [phone] 08/18/2024 10:20 AM [facility] [phone] 08/25/2024 3:30 PM (Arrive by 3:15 PM) Arianna Szymanski MD Hematology Oncology [phone] 09/07/2024 3:30 PM (Arrive by 3:15 PM) José Miguel Cullen CRNP Rheumatology [phone] 09/11/2024 12:50 PM (Arrive by 12:35 PM) Dasha Nelson PA-C Dermatology [phone] 09/29/2024 3:10 PM (Arrive by 2:55 PM) Quincy Garcia MD Gynecology Urology [phone] 10/05/2024 1:30 PM (Arrive by 1:15 PM) Charles Ortega DO Cardiology [phone] 10/05/2024 2:15 PM Alfonso Manning MD Neurology Arrive at: Patient's Home [phone] 12/30/2024 12:40 PM (Arrive by 12:25 PM) Irene Bowens MD Family Medicine [phone] 08/17/2025 2:30 PM (Arrive by 2:15 PM) Cadence Horne [facility] Cardiology [phone] Brunilda Higgins RN documented in this encounter Plan of Treatment Upcoming Encounters Date Type Department Care Team (Late st Contact Info) Description 07/25/2024 9:45 AM EDT Scheduled Telephone [facility] [place], [facility] [address] [place] [address] [facility], Nurse [facility] [address] [place] [address] 07/27/2024 3:30 PM EDT [facility] [address] [place] [phone] Mykel Orellana PA-C [address] [place] [address] 07/28/2024 10:00 AM EDT [facility] [address] [place] [address] Leon Live PA-C [address] [place] [address] 07/30/2024 1:30 PM EDT Imaging Radiology [facility] [address] [place], [place] [phone] 08/11/2024 1:45 PM EDT Office Visit Ophthalmology, [facility] [address] [place], [place] [phone] Pedro Tinsley DO [address] [place], [place] [address] Nurse Roscoe Leyva [address] [place], [place] [address] Photographer Justen Leyva [address] [place], [place] [address] 08/18/2024 10:20 AM EDT Laboratory Laboratory [address] [place] [phone] [address] [place] [address] 08/25/2024 3:30 PM EDT Office Visit Hematology/Oncology [facility] [place] [address] [place] [phone] Arianna Szymanski MD [address] [place] [address] 09/07/2024 3:30 PM EDT Office Visit Rheumatology [address] [place] [phone] José Miguel Cullen CRNP [address] [place], [place] [phone] 09/11/2024 12:50 PM EDT Office Visit Dermatology, [place] [address] [place] [address] Dasha Nelson PA-C [address] [place] [address] 09/29/2024 3:10 PM EDT Office Visit Urogynecology [facility] [address] [facility] [place] [address] Quincy Garcia MD [address] [place] [address] 10/05/2024 1:30 PM EDT Office Visit Cardiology, [facility] [address] [place] [phone] Charles Ortega DO [facility] [place] [address] 10/05/2024 2:15 PM EDT Telemedicine Neurology [facility] 200 [facility] [place] [phone] Alfonso Manning MD [facility] [address] 12/30/2024 12:40 PM EDT Office Visit Family Medicine [address] [place] [phone] Irene Bowens MD [address] [place] [address] [place] [phone] 08/17/2025 2:30 PM EDT Cardiac Studies Cardiology [address] [place] [address] [facility] [address] [place] [address] Health Maintenance Due Date Last Done Comments Adult Wellness Visit 02/06/2018 02/06/2017 Depression Screening 07/17/2022 07/17/2021 COVID-19 Vaccine ( season) 2023 02/05/2022, 08/02/2021, 02/28/2021, Additional history exists Albumin/Creatinine Ratio 02/13/2024 023, 03/21/2022, 04/19/2021, Additional history exists HbA1c 04/26/2024 04/26/2023, 03/02, 04/19/2021, Additional history exists CKD PHOS USE SMARTSET 03957 06/26/202405/31, 04/19/2021, 11/27/2019, Additional history exists DXA Scan 07/18/2024 07/18/2022, 06/30, 12/22/2019, Additional history exists Influenza Vaccine (FLU shot) (Season Ended) 2024 04/19/2023, 01/30/2022, 12/28/2020, Additional history exists GFR 12/26/2024 06/25/2024, 03/0 11/2024, 02/17/2024, Additional history exists CKD HGB USE SMARTSET 57415 02/16/202502/16, 02/17/2024, 06/27/2023, Additional history exists TSH [...] D LEVEL ONCE IN A LIFETIME-USE SMARTSET# 98709 Completed 06/27/2023, 11/06/2021, 12/28/2019, Additional history exists [...] this encounter Medical Devices Implanted Type Area Music Ministries Director Device Identifier Shelf Expiration Date Model / Serial / Lot Lens Intraoc 21.5 - [id number] - [id number] Implanted:Qty: 1 on 05/12/2019 by Yury Brady MD at OR [facility] Right: Eye BAUSCH 12/30/2023 [id number] / [id number] / [id number] Lens Intraoc 22.5 - [id number] - [id number] Implanted:Qty: 1 on 04/05/2020 by Yury Brady MD at OR [facility] Left: Eye BAUSCH 09/28/2024 [id number] / [id number] / [id number] documented as of this encounter Advance Directives Documents on File Type Date Recorded Patient Mender Hand Expl anation Advance Directives and Living [...] t (per Health Care Power of Farm Management Teacher document) Guille Urban Adult Child Health Care Agen t (per Health Care Power of Farm Management Teacher document) [email or web address] Care Teams Assistant Women'S Basketball Coach Relationship Specialty Start Date End Date Rafa Bergman MD NPI: [id number] [place] [address] [place] [address] PCP - General Family Medicine 04/19/21 documented as of this encounter
[2024-07-24] MEDS: LEVOTHYROXINE SODIUM 125 MCG TABLET PO SCH (05:50)
[2024-07-24 06:06] LABS: Basophils # (auto) 0.13 K/uL (0.00-0.20); Basophils % (auto) 1.2 %; Eosinophils # (auto) 0.35 K/uL (0.00-0.50); Eosinophils % (auto) 3.3 %; Hemoglobin 13.8 g/dl (12.0-16.0); Immature Granulocytes # (auto) 0.07 K/uL (0.01-0.20); Immature Granulocytes % (auto) 0.7 %; Lymphocytes # (auto) 2.15 K/uL (1.20-3.40); Lymphocytes % (auto) 20.5 %; Mean Corpuscular Hemoglobin 32.6 pg (25.0-34.0); Mean Corpuscular Hgb Conc 32.9 g/dL (32.0-36.0); Mean Corpuscular Volume 99.3 fL (80.0-100.0); Monocytes % (auto) 12.4 %; Neutrophils # (auto) 6.48 K/uL (1.40-6.50); Neutrophils % (auto) 61.9 %; Platelet Count 257 K/uL (130-400); RDW Coefficient of Variation 15.3 % (11.5-14.5); RDW Standard Deviation 55.4 fL (36.4-46.3); Red Blood Count 4.23 M/uL (4.20-5.40); White Blood Count 10.48 K/ul (4.8-10.8)
[2024-07-24 06:27] LABS: Calcium 9.2 mg/dl (8.6-10.3); Creatinine Clr Calc Pharmacy 40.6 ml/min; Magnesium 1.8 mg/dl (1.7-2.4); Potassium 4.3 mmol/L (3.5-5.1)
--- NOTE | 2024-07-24 07:47 | Hospitalist Progress Note ---
Date of Service July 24, 2024 Assessment & Plan (1) Dyspnea on exertion: Plan: 79-year-old female with past medical history significant for hypothyroidism, dyslipidemia, prediabetes, nonallergic rhinitis, hypertension, right eye retinal vein occlusion, history of CAD status post stent, tachybradycardia syndrome status post pacemaker, vitamin B12 deficiency, GERD, CKD stage III, osteoporosis, migraines, history of DVT, history of PE, who lives at home with h er daughter and ambulates without support comes because of shortness of breath and tachycardia. Patient states since last 10 to 11 days she is getting progressively short of breath. Any activity making her short of breath and palpitations. At rest she is okay. Patient states she is not able to lie down flat. Denies any chest pain. No fevers. No cough. Vision is okay. Has some runny nose from allergies. No sore throat. No nausea. Appetite is okay. No abdominal pain. Normal bladder movements. She had couple of bleeding episodes from her hemorrhoids in the last 1 week. Hemodynamics are okay. Patient says she also gets on and off bloating and swelling in the legs. Since last 1 week legs are getting more progressively swollen and her home health gave her Lasix which she took couple of doses so far.Patient also says she pulled her right shoulder couple of weeks ago when she carried her granddaughter and took prednisone for 1 week. Shoulder pain is better and baclofen was prescribed for spasms but has not started yet. Dyspnea on exertion And tachycardia No obvious wheezing CTA chest no PE and no acute findings VBG okay EKG and troponins okay Has lower extremity edema Received IV Lasix 20mg on admission - and continue 20 mg daily Monitor the response Monitor on telemetry Will follow serial enzymes and repeat EKG and echo Cardiology consulted, appreciate their input Possible UTI Empiric Rocephin Will follow the cultures Pt reports R flank pain, will obtain CT abdomen Hypothyroidism On Synthyroid Will check TSH Hypertension on Cardizem, propranolol Will monitor History of DVT and PE On Eliquis History of CAD status post stent On aspirin, propranolol, and statin Tachybradycardia syndrome Status post pacemaker GERD On Protonix and Pepcid History of migraines Propranolol and riboflavin Prediabetes Will follow HbA1c levels Dyslipidemia On statin CKD stage III Presented with creatinine 1.1 Will follow labs DVT prophylaxis On Eliquis Disposition Telemetry Full code. Admission and Anticipated Discharge Date Admission Date: July 23, 2024 Subjective Pt seen in follow up Admitted for dyspnea on minimal exertion, tachycardia, + LE edema in ED found to have poss. UTI This AM reports flank pain (right), which she says she noticed yesterday as well. Denies dysuria. Reports LE edema is much improved this AM. She does not feel [place] is much improved though yet. Review of Systems Review of Systems: All systems reviewed & are unremarkable except as noted in Subjective Physical Exam Physical Exam: General- WD/WN F in NAD Head- atraumatic Eyes- PERRL. Neck- supple, no JVD. Lungs- clear to auscultation no wheezing or crackles. Heart- regular rate and rhythm; no murmur Abdomen- normal bowel sounds, soft, nontender, no distension, + R cva tenderness Extremities- Lower extremity edema (improved), No erythema seen . Neuro- alert, oriented PERRL, no facial palsy; no dysarthria; moves extremities. Results & Data Results & Data Vital Signs (Past 12 Hours) Vital Signs Temp Pulse Pulse Resp BP BP Pulse Ox 07/24/24 07:40 36.5 C 111 H 18 115/80 94 07/24/24 02:55 36.5 C 95 H 20 117/77 93 07/23/24 23:40 115 H 07/23/24 22:06 07/23/24 22:00 36.4 C L 113 H 20 152/96 H 97 07/23/24 21:43 36.6 C 106 H 20 131/93 97 07/23/24 21:01 109 H 20 159/102 H 96 07/23/24 20:02 108 H O2 Del Method 07/24/24 07:40 Room Air 07/24/24 02:55 Room Air 07/23/24 23:40 07/23/24 22:06 Room Air 07/23/24 22:00 Room Air 07/23/24 21:43 Room Air 07/23/24 21:01 Room Air 07/23/24 20:02 Laboratory Results 07/24/24 07/23/24 07/23/24 Range/Units 05:32 18:45 15:49 WBC 10.48 12.48 H (4.8-10.8) K/ul RBC 4.23 4.53 (4.20-5.40) M/uL Hgb 13.8 14.7 (12.0-16.0) g/dl Hct 42.0 44.7 (37.0-47.0) % MCV 99.3 98.7 (80.0-100.0) fL MCH 32.6 32.5 (25.0-34.0) pg MCHC 32.9 32.9 (32.0-36.0) g/dL RDW Std Deviation 55.4 H 54.4 H (36.4-46.3) fL RDW Coeff of Agnes 15.3 H 15.1 H (11.5-14.5) % Plt Count 257 277 (130-400) K/uL MPV 10.0 9.9 (9.4-12.4) fL Immature Gran % (Auto) 0.7 0.7 % Neut % (Auto) 61.9 60.6 % Lymph % (Auto) 20.5 22.1 % [place] % (Auto) 12.4 13.6 % Eos % (Auto) 3.3 2.1 % Baso % (Auto) 1.2 0.9 % Neut # (Auto) 6.48 7.56 H (1.40-6.50) K/uL Lymph # (Auto) 2.15 2.76 (1.20-3.40) K/uL [place] # (Auto) 1.30 H 1.70 H (0.11-0.59) K/uL Eos # (Auto) 0.35 0.26 (0.00-0.50) K/uL Baso # (Auto) 0.13 0.11 (0.00-0.20) K/uL Immature Gran # (Auto) 0.07 0.09 (0.01-0.20) K/uL VBG pH 7.43 H (7.36-7.41) VBG pCO2 44 (38-50) mmHg VBG pO2 22 mmHg VBG HCO3 29 mmol/L VBG O2 Saturation < 60.0 % VBG Base Excess 4.2 mEq/L Sodium 144 141 (136-145) mmol/L Potassium 4.3 4.3 (3.5-5.1) mmol/L Chloride 106 104 (98-107) mmol/L Carbon Dioxide 31 29 (21-32) mmol/L Anion Gap 7 8 (3-11) BUN 22 25 H (6-23) mg/dl Creatinine 1.10 1.12 (0.6-1.2) mg/dl Est Cr Clr Drug Dosing 40.6 39.9 ml/min eGFR 51.11 50.02 BUN/Creatinine Ratio 20.0 22.3 H (10-20) Glucose 104 H 112 H (70-99(Fasting)) mg/dl Estimat Average Glucose Pending Hemoglobin A1c Pending Calcium 9.2 10.3 (8.6-10.3) mg/dl Magnesium 1.8 2.0 (1.7-2.4) mg/dl Total Bilirubin 0.4 (0.2-1.0) mg/dl AST 9 L (13-39) U/L ALT 13 (7-52) U/L Alkaline Phosphatase 84 (34-104) U/L Troponin I High Sens 3.0 5.9 (0-14) pg/ml B-Natriuretic Peptide 39 (0-100) pg/ml Total Protein 6.8 (6.0-8.3) gm/dl Albumin 4.1 (3.4-5.0) gm/dl Globulin 2.7 (2.5-4.0) gm/dl Albumin/Globulin Ratio 1.5 (0.9-2) Urine Color Yellow Urine Appearance Clear (Clear) Urine pH 6.0 (4.5-7.5) Ur Specific [place] > 1.045 H (1.000-1.030) Urine Protein Negative (Negative) Urine Glucose (UA) Negative (Negative) Urine Ketones Negative (Negative) Urine Blood Trace H (Negative) Urine Nitrite Negative (Negative) Urine Bilirubin Negative (Negative) Urine Urobilinogen Negative (Negative) Ur Leukocyte Esterase Negative (Negative) Urine WBC (Auto) 0-5 (0-5) /hpf Urine RBC (Auto) 3-5 H (0-2) /hpf U Hyaline Cast (Auto) 0-2 (0-2) /lpf U Epithel Cells (Auto) 0-2 (0-2) /hpf Urine Bacteria (Auto) 2+ H (None Seen) Medications Administered Current Inpatient Medications Acetaminophen (Acetaminophen 325 Mg Tab) 650 mg PO Q4H PRN PRN Reason: Pain or Fever Stop: 08/22/24 22:05 Allopurinol (Allopurinol 300 Mg Tab) 450 mg PO QAM NANY Stop: 08/23/24 08:59 Apixaban (Apixaban 2.5 Mg Tab) 2.5 mg PO BID NANY Stop: 08/23/24 08:59 Aspirin (Aspirin 81 Mg Ectab) 81 mg PO HS NANY Stop: 08/23/24 20:59 Baclofen (Baclofen 10 Mg Tab) 10 mg PO HS PRN PRN Reason: Pain Stop: 08/22/24 22:05 Bisacodyl (Bisacodyl 5 Mg Tabec) 5 mg PO DAILY PRN PRN Reason: Constipation Stop: 08/22/24 23:05 Cyanocobalamin (Cyanocobalamin (B-12) 500 Mcg Tablet) 1,000 mcg PO DAILY NANY Stop: 08/23/24 08:59 Dicyclomine HCl (Dicyclomine Hcl 20 Mg Tab) 20 mg PO QID PRN PRN Reason: IBS Stop: 08/22/24 22:05 Diltiazem HCl (Diltiazem Hcl 180 Mg Capcr) 360 mg PO QPM NANY Stop: 08/23/24 20:59 Famotidine (Famotidine 20 Mg Tab) 20 mg PO HS NANY Stop: 08/23/24 20:59 Furosemide (Furosemide Inj 20 Mg/2 Ml Vial) 20 mg IV DAILY NANY Stop: 08/23/24 08:59 Gabapentin (Gabapentin 100 Mg Cap) 100 mg PO BID NANY Stop: 08/23/24 08:59 Ceftriaxone Sodium (Rocephin) 2,000 mg in 50 mls @ 100 mls/hr IV Q24H NANY Stop: 07/29/24 19:29 Lactobacillus Acidophilus (Advanced Probiotic 625 Mg Capsule) 625 mg PO DAILY NANY Stop: 08/23/24 08:59 Levothyroxine Sodium (Levothyroxine Sodium 125 Mcg Tablet) 125 mcg PO DAILYBB NANY Stop: 08/23/24 06:29 Last Admin: 07/24/24 05:50 Dose: 125 mcg Magnesium Oxide (Magnesium Oxide 400 Mg Tab) 400 mg PO DAILY NANY Stop: 08/23/24 08:59 Nitroglycerin (Nitroglycerin Sl 0.4 Mg/Tab Tab) 0.4 mg SL Q5M PRN PRN Reason: Chest Pain Stop: 08/22/24 22:05 Pantoprazole Sodium (Pantoprazole 40 Mg Tab) 40 mg PO BID NANY Stop: 08/23/24 08:59 Polyethylene Glycol (Polyethylene (Miralax) 17 Gm Pack) 17 gm PO DAILY PRN PRN Reason: Constipation Stop: 08/22/24 22:05 Propranolol HCl (Propranolol Hcl 10 Mg Tab) 5 mg PO HS NANY Stop: 08/23/24 20:59 Rosuvastatin Calcium (Rosuvastatin Calcium 5 Mg Tab) 5 mg PO DAILY NANY Stop: 08/23/24 08:59 Vitamin D (Cholecalciferol 25 Mcg (1000 Units) Tab) 50 mcg PO QAM NANY Stop: 08/23/24 08:59
--- NOTE | 2024-07-24 08:41 | Cardiology Consultation ---
Date of Consultation July 24, 2024 Assessment & Plan (1) Sinus tachycardia: (2) Acute dyspnea: (3) Acute UTI (urinary tract infection): Plan 79-year-old female admitted with dyspnea on exertion in the setting of chronic sinus tachycardia. Documented intolerance to metoprolol. Heart rate remains elevated despite high-dose diltiazem and low-dose propranolol in the evening. Edema and respiratory status mildly improved with IV furosemide on admission. No evidence of pulmonary edema or volume overload on chest x-ray/CTA of the chest. Bedside 2D transthoracic echocardiogram demonstrates preserved LV systolic function without regional wall motion abnormality or significant valvular pathology. Cardiac enzymes are negative without ECG evidence of ischemia. Worsening respiratory insufficiency noted since recent diagnosis of RSV pneumonia in May. Recommendations: * Titrate propranolol to 10 mg 3 times daily. * Continue diltiazem CD 360 mg daily. * Transition IV furosemide to oral formulation, 20 mg daily. * Repeat basic metabolic panel in 1 week postdischarge. * Antibiotics as per internal medicine for treatment of E. coli urinary tract infection. * Outpatient cardiology follow-up to consider pharmacologic stress testing for further evaluation of dyspnea. * No further inpatient cardiac testing recommended at this time. Charles Ortega DO, [facility] History of Present Illness Reason for Consultation: SOB, tachycardia Requesting Physician: Dr. Curry Attending Physician: Enrique Bravo MD History of Present Illness 79-year-old female presents to the emergency department secondary to dyspnea on exertion. Diagnosed with RSV pneumonia in early May. Reports progressive shortness of breath for 10 days prior to admission. Notes worsening edema. Treated with single dose of IV furosemide with marked improvement of edema. Complains of elevated heart rate. Patient feels elevated heart rate and tachycardia symptoms are new, however, documented for several years. Previously evaluated by electrophysiology and treated with diltiazem CD in addition to low- dose propranolol at night. Documented intolerance to metoprolol. Denies cough or wheezing. Diagnosed with urinary tract infection on admission although denies dysuria this time. CTA of the chest negative for PE or acute cardiopulmonary process. Cardiac/medical history: 1. Coronary artery disease, history of NSTEMI status post AMIE to LAD (culprit) and RCA, a. 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 History of atypical noncardiac chest pain a.Nonischemic nuclear stress 01/2021 3. Tachy-chintan syndrome with evidence of sinus tach and second-degree AV block, status post pacemaker implantation 08/19/2019 4. Frequent asymptomatic PVCs 5. Dyslipidemia 6. Hypothyroidism, on replacement 7. History of recurrent pulmonary embolism/DVT, now on Eliquis Allergies Allergy/AdvReac Type Severity Reaction Status Date / Time imipenem Allergy Severe ANAPHYLAXIS Verified 07/23/24 18:21 Sulfa (Sulfonamide Allergy Severe hives,sob, Verified 07/23/24 18:21 Antibiotics) can take Dyazide daptomycin AdvReac Severe Anaphylaxis Verified 07/23/24 18:21 colchicine AdvReac Intermediate diarrhea Verified 07/23/24 18:21 metoprolol AdvReac Mild fatigue Verified 07/23/24 18:21 zoledronic acid AdvReac Mild NAUSEA AND Verified 07/23/24 18:21 VOMITING Home Medications Medication Instructions Recorded Confirmed Type cholecalciferol (vitamin D3) 50 2,000 unit PO QAM 04/28/18 07/23/24 History mcg (2,000 unit) tablet (Vitamin D3) nitroglycerin 0.4 mg sublingual 0.4 mg sublingual Q5M chest pain 05/01/18 07/23/24 Rx tablet (Nitrostat) #25 tabs aspirin 81 mg tablet,delayed 81 mg PO HS #0 tabs 05/16/18 07/23/24 Rx release dicyclomine 20 mg tablet 20 mg PO QID PRN IBS 02/12/19 07/23/24 History allopurinol 300 mg tablet 450 mg PO QAM 01/23/21 07/23/24 History coenzyme Q10 100 mg capsule 100 mg PO DAILY 01/23/21 07/23/24 History (CoQ-10) diltiazem HCl 360 mg 360 mg PO QPM 01/23/21 07/23/24 History tablet,extended release 24 hr rosuvastatin 5 mg tablet 5 mg PO DAILY 01/23/21 07/23/24 History famotidine 20 mg tablet 20 mg PO HS 08/18/22 07/23/24 History loperamide 2 mg tablet 2 mg PO QID PRN Diarrhea 08/18/22 07/23/24 History pantoprazole 40 mg tablet,delayed 40 mg PO BID 02/24/23 07/23/24 History release L.acidophilus-L.plantarum-L.rhamnosus 1 cap PO DAILY 07/23/24 07/23/24 History 1 billion cell capsule,delay rel (Probiotic Pearls Women's) acetaminophen 500 mg tablet 1,000 mg PO Q6H PRN PAIN/FEVER 07/23/24 07/23/24 History (Tylenol Extra Strength) apixaban 2.5 mg tablet (Eliquis) 2.5 mg PO BID 07/23/24 07/23/24 History baclofen 10 mg tablet 10 mg PO HS PRN Pain 07/23/24 07/23/24 History bisacodyl 5 mg tablet 5 mg PO DAILY PRN Constipation 07/23/24 07/23/24 History cyanocobalamin (vitamin B-12) 1,000 mcg PO DAILY 07/23/24 07/23/24 History 1,000 mcg tablet (Vitamin B-12) furosemide 20 mg tablet (Lasix) 20 mg PO DAILY 07/23/24 07/23/24 History gabapentin 100 mg capsule 100 mg PO BID 07/23/24 07/23/24 History levothyroxine 125 mcg tablet 125 mcg PO DAILYBB 07/23/24 07/23/24 History magnesium oxide 400 mg PO DAILY 07/23/24 07/23/24 History ondansetron HCl 4 mg tablet 4 mg PO Q8H PRN NAUSEA/VOMITING 07/23/24 07/23/24 History propranolol 10 mg tablet 5 mg PO HS 07/23/24 07/23/24 History riboflavin (vitamin B2) 100 mg 400 mg PO DAILY 07/23/24 07/23/24 History tablet (Vitamin B-2) Patient History Medical History Left-sided epistaxis History of DVT (deep vein thrombosis) Hypertension (Unknown) BP better today continue higher dose of metoprolol Surgical History History of heart artery stent Family History Father Coronary heart disease Heart disease Mother Stroke Allergies Grandmother Asthma Grandfather Asthma Other Hypertension No family history of adverse response to anesthesia No family history of bleeding disorder Social History (Reviewed 07/24/24 @ 12:08 by ROSIE Lorenzo Smoking Status: Unknown if ever smoked Second Hand Exposure: No; Do You Dip or Chew Tobacco: No; Hx Alcohol Use: No Hx Substance Use: No Preferred Language: [place] Communication Ability: Effective 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 Required: No Beliefs That Will Affect Care: None marital status: Current Living Situation: Family Current Living Situation Comment: lives with daughter current occupational status: employed current occupation: Retired How many Children do You have: 1 Other Information That Helps Us Care for You: No Feels Safe at Home: Yes Safety Concerns: Feels Safe At This Time Assistive Devices: Cane and Walker Review of Systems Review of Systems: All systems reviewed & are unremarkable except as noted in Subjective Physical Exam Constitutional: well nourished; no acute distress Respiratory: no respiratory distress and no labored breathing Auscultation: no crackles, no rales, no rhonchi and no wheezes Cardiovascular: Rate/Rhythm: regular rate, regular rhythm and + tachycardic Heart Sounds: normal S1 and normal S2; no murmur Vessels: no JVD and no carotid bruit Extremities: no edema Gastrointestinal (Abdomen): Inspection/Auscultation: normal bowel sounds; abdomen not distended Percussion/Palpation: abdomen soft; abdomen nontender, no guarding and abdomen not rigid Neurologic: CN's II-XI intact bilaterally and moves all extremities Results & Data Vital Signs (Past 12 Hours) Vital Signs Temp Pulse Pulse Resp BP BP Pulse Ox 07/24/24 07:40 36.5 C 111 H 18 115/80 94 07/24/24 02:55 36.5 C 95 H 20 117/77 93 07/23/24 23:40 115 H 07/23/24 22:06 07/23/24 22:00 36.4 C L 113 H 20 152/96 H 97 07/23/24 21:43 36.6 C 106 H 20 131/93 97 07/23/24 21:01 109 H 20 159/102 H 96 O2 Del Method 07/24/24 07:40 Room Air 07/24/24 02:55 Room Air 07/23/24 23:40 07/23/24 22:06 Room Air 07/23/24 22:00 Room Air 07/23/24 21:43 Room Air 07/23/24 21:01 Room Air Laboratory Results Cardiac Enzymes 07/23/24 07/24/24 Range/Units 15:49 05:32 AST 9 L (13-39) U/L Troponin I High Sens 5.9 3.0 (0-14) pg/ml B-Natriuretic Peptide 39 (0-100) pg/ml Coagulation 07/23/24 Range/Units 15:49 B-Natriuretic Peptide 39 (0-100) pg/ml CBC 07/23/24 07/24/24 Range/Units 15:49 05:32 WBC 12.48 H 10.48 (4.8-10.8) K/ul RBC 4.53 4.23 (4.20-5.40) M/uL Hgb 14.7 13.8 (12.0-16.0) g/dl Hct 44.7 42.0 (37.0-47.0) % Plt Count 277 257 (130-400) K/uL Neut # (Auto) 7.56 H 6.48 (1.40-6.50) K/uL Lymph # (Auto) 2.76 2.15 (1.20-3.40) K/uL [place] # (Auto) 1.70 H 1.30 H (0.11-0.59) K/uL Eos # (Auto) 0.26 0.35 (0.00-0.50) K/uL Baso # (Auto) 0.11 0.13 (0.00-0.20) K/uL Comprehensive Metabolic Panel 07/23/24 07/24/24 Range/Units 15:49 05:32 Sodium 141 144 (136-145) mmol/L Potassium 4.3 4.3 (3.5-5.1) mmol/L Chloride 104 106 (98-107) mmol/L Carbon Dioxide 29 31 (21-32) mmol/L BUN 25 H 22 (6-23) mg/dl Creatinine 1.12 1.10 (0.6-1.2) mg/dl Glucose 112 H 104 H (70-99(Fasting)) mg/dl Calcium 10.3 9.2 (8.6-10.3) mg/dl AST 9 L (13-39) U/L ALT 13 (7-52) U/L Alkaline Phosphatase 84 (34-104) U/L Total Protein 6.8 (6.0-8.3) gm/dl Albumin 4.1 (3.4-5.0) gm/dl Intake and Output 07/23/24 07/24/24 07/24/24 22:59 06:59 14:59 Intake Total 50 / 250 200 / 250 Balance 50 / 250 200 / 250 Intake: IV 50 / 50 cefTRIAXone SODIUM 2,000 mg In 50 / 50 50 ml @ 100 mls/hr IV NOW STA Rx#:[id number] Oral 200 / 200 Other: # Unmeasured Voids 3 Weight 76.6 kg 76.6 kg Weight Measurement Method [facility]
[2024-07-24] MEDS: ADVANCED PROBIOTIC 625 MG CAPSULE PO SCH (08:46)
[2024-07-24] MEDS: allopurinoL 300 MG TAB PO SCH (08:46)
[2024-07-24] MEDS: APIXABAN 2.5 MG TAB PO SCH (08:47)
[2024-07-24] MEDS: MAGNESIUM OXIDE 400 MG TAB PO SCH (08:47)
[2024-07-24] MEDS: CHOLECALCIFEROL 25 MCG (1000 UNITS) TAB PO SCH (08:48)
[2024-07-24] MEDS: CYANOCOBALAMIN (B-12) 500 MCG TABLET PO SCH (08:49)
[2024-07-24] MEDS: GABAPENTIN 100 MG CAP PO SCH (08:49)
[2024-07-24] MEDS: PANTOprazole 40 MG TAB PO SCH (08:50)
[2024-07-24] MEDS: ROSUVASTATIN CALCIUM 5 MG TAB PO SCH (08:50)
[2024-07-24] MEDS: FUROSEMIDE INJ 20 MG/2 ML VIAL IV SCH (08:50)
[2024-07-24] MEDS ORDERED: NON-FORMULARY MEDICATION (Coenzyme Q10 [Coq-10] 100 mg Capsule) PO SCH (09:00)
[2024-07-24] MEDS ORDERED: NON-FORMULARY MEDICATION (Riboflavin (Vitamin B2) [Vitamin B-2] 100 mg Tablet) PO SCH (09:00)
[2024-07-24] MEDS: ACETAMINOPHEN 325 MG TAB PO PRN (09:11)
[2024-07-24 09:51] LABS: Estimated Average Glucose 117 mg/dl; Hemoglobin A1C 5.7 % (4.5-5.6)
--- NOTE | 2024-07-24 10:16 | Electrocardiogram Report ---
Test Reason : Blood Pressure : */* mmHG Vent. Rate : 107 BPM Atrial Rate : 107 BPM P-R Int : 162 ms QRS Dur : 86 ms QT Int : 334 ms P-R-T Axes : 37 5 13 degrees QTcB Int : 445 ms Sinus tachycardia Possible Left atrial enlargement Nonspecific T wave abnormality Abnormal ECG When compared with ECG of 02-Mar-2023 08:58, Nonspecific T wave abnormality now evident in Lateral leads Confirmed by Ford Ruiz ([id number]) on 07/24/2024 10:16:08 AM Referred By: REFERRED SELF Confirmed By: Ford Ruiz
[2024-07-24] MEDS: PROPRANOLOL HCL 10 MG TAB PO SCH (13:43)
--- NOTE | 2024-07-24 16:03 | CT Scan Report ---
ABDOMEN AND PELVIS CT WITHOUT CONTRAST CT DOSE: 1110.98 mGy.cm HISTORY: Acute bilateral flank pain flank pain TECHNIQUE: Multiaxial CT images of the abdomen and pelvis were performed without contrast. A dose lo wering technique was utilized adhering to the principles of ALARA. COMPARISON STUDY: 09/25/2022 FINDINGS: Cardiomegaly with extensive coronary artery calcifications and partially imaged pacer leads . Chronic left hemidiaphragmatic elevation with linear left basilar atelectasis/scarring. Right Bochd carol hernia. No pneumatosis or pneumoperitoneum is seen. Unremarkable spleen, moderately atrophic pancreas, gallbladder, adrenal glands and liver. There are a few nonobstructing calculi of the right kidney measuring up to 4 mm. 8.2 cm right renal cyst. There is a peripherally calcified 5.9 cm exophytic cyst again noted within the midinferior pole left kidney . Additional simple and complex left renal cyst redemonstrated. There is no ureteral calculi or hydro nephrosis. Urinary bladder wall thickening with partial collapse. Atherosclerosis of the aorta withou t aneurysm. No lymphadenopathy. Large duodenal diverticula are again seen. Esophageal wall thickening with large hiatal hernia. Colon ic diverticulosis without acute diverticulitis. Moderate to extensive colonic fecal retention. Normal appendix. Fat filled umbilical hernia. No acute fracture. IMPRESSION: 1. No acute intra-abdominal or intrapelvic abnormality. 2. Colonic diverticulosis without acute diverticulitis. 3. Large hiatal hernia. 4. Nonobstructing right nephrolithiasis. 6. Additional findings as above. ACT 112: Negative or not required by law. The above report was generated using voice recognition software. It may contain grammatical, syntax o r spelling errors. Electronically signed by: Erasmo Stover M.D. 07/24/2024 4:02 PM
[2024-07-24] MEDS: bisacodyL 5 MG TABEC PO SCH (18:03)
[2024-07-24] MEDS: POLYETHYLENE (MIRALAX) 17 GM PACK PO SCH (18:05)
[2024-07-24] MEDS: cefTRIAXone SODIUM 2,000 MG/50 ML BAG IV SCH (20:23)
[2024-07-24] MEDS: ASPIRIN 81 MG ECTAB PO SCH (20:33)
[2024-07-24] MEDS: dilTIAZem HCL 180 MG CAPCR PO SCH (20:35)
[2024-07-24] MEDS: FAMOTIDINE 20 MG TAB PO SCH (20:45)
[2024-07-24] MEDS ORDERED: PROPRANOLOL HCL 10 MG TAB PO SCH (21:00)
[2024-07-25 07:58] LABS: Hematocrit (blood only) 44.8 % (37.0-47.0); Hemoglobin 14.5 g/dl (12.0-16.0); Mean Corpuscular Hemoglobin 32.7 pg (25.0-34.0); Mean Corpuscular Hgb Conc 32.4 g/dL (32.0-36.0); Mean Corpuscular Volume 100.9 fL (80.0-100.0); Platelet Count 287 K/uL (130-400); RDW Standard Deviation 55.1 fL (36.4-46.3); Red Blood Count 4.44 M/uL (4.20-5.40)
[2024-07-25 08:25] LABS: Calcium 9.3 mg/dl (8.6-10.3); Magnesium 1.9 mg/dl (1.7-2.4); Phosphorus 4.1 mg/dl (2.5-4.9); Potassium 4.3 mmol/L (3.5-5.1)
[2024-07-25] MEDS: HYDROCORTISONE ACETATE 25 MG SUPP PR ONE (11:33)
--- NOTE | 2024-07-25 17:50 | Hospitalist Progress Note ---
Date of Service July 25, 2024 Assessment & Plan (1) Dyspnea on exertion: Plan: 79-year-old female with past medical history significant for hypothyroidism, dyslipidemia, prediabetes, nonallergic rhinitis, hypertension, right eye retinal vein occlusion, history of CAD status post stent, tachybradycardia syndrome status post pacemaker, vitamin B12 deficiency, GERD, CKD stage III, osteoporosis, migraines, history of DVT, history of PE, who lives at home with her daughter and ambulates without support comes because of shortness of breath and tachycardia. Patient states since last 10 to 11 days she is getting progressively short of breath. Any activity making her short of breath and palpitations. At rest she is okay. Patient states she is not able to lie down flat. Denies any chest pain. No fevers. No cough. Vision is okay. Has some runny nose from allergies. No sore throat. No nausea. Appetite is okay. No abdominal pain. Normal bladder movements. She had couple of bleeding episodes from her hemorrhoids in the last 1 week. Hemodynamics are okay. Patient says she also gets on and off bloating and swelling in the legs. Since last 1 week legs are getting more progressively swollen and her home health gave her Lasix which she took couple of doses so far.Patient also says she pulled her right shoulder couple of weeks ago when she carried her granddaughter and took prednisone for 1 week. Shoulder pain is better and baclofen was prescribed for spasms but has not started yet. Dyspnea on exertion And tachycardia No obvious wheezing CTA chest no PE and no acute findings VBG okay EKG and troponins okay Has lower extremity edema Received IV Lasix 20mg on admission - and continue 20 mg daily Monitor the response -> LE edema much improved Monitor on telemetry Will follow serial enzymes and repeat EKG and echo Echo - LV EF 65-70%. Mild concentric LVH. Grade I diastolic dysfunction. No significant valvular pathology. Cardiology consulted, appreciate their input Recommendations: * Titrate propranolol to 10 mg 3 times daily. * Continue diltiazem CD 360 mg daily. * Transition IV furosemide to oral formulation, 20 mg daily. * Repeat basic metabolic panel in 1 week postdischarge. * Antibiotics as per internal medicine for treatment of E. coli urinary tract infection. * Outpatient cardiology follow-up to consider pharmacologic stress testing for further evaluation of dyspnea. UTI Empiric Rocephin Will follow the cultures Pt reports R flank pain, obtained CT abdomen - IMPRESSION: 1. No acute intra-abdominal or intrapelvic abnormality. 2. Colonic diverticulosis without acute diverticulitis. 3. Large hiatal hernia. 4. Nonobstructing right nephrolithiasis. Hypothyroidism On Synthyroid Will check TSH Hypertension on Cardizem, propranolol Will monitor History of DVT and PE On Eliquis History of CAD status post stent On aspirin, propranolol, and statin Tachybradycardia syndrome Status post pacemaker GERD On Protonix and Pepcid History of migraines Propranolol and riboflavin Prediabetes current HbA1c level 7.5% Dyslipidemia On statin CKD stage III Presented with creatinine 1.1 Will follow labs DVT prophylaxis - On Eliquis Disposition Telemetry Full code. Admission and Anticipated Discharge Date Admission Date: July 23, 2024 Subjective Pt seen in follow up Admitted for dyspnea on minimal exertion, tachycardia, + LE edema in ED found to have poss. UTI Currently feels much improved. LE edema improved and also pt's shortness of breath ucultx pending Review of Systems Review of Systems: All systems reviewed & are unremarkable except as noted in Subjective Physical Exam Physical Exam: General- WD/WN F in NAD Head- atraumatic Eyes- PERRL. Neck- supple, no JVD. Lungs- clear to auscultation no wheezing or crackles. Heart- regular rate and rhythm; no murmur Abdomen- normal bowel sounds, soft, nontender, no distension, + R cva tenderness Extremities- Lower extremity edema (improved), No erythema seen . Neuro- alert, oriented PERRL, no facial palsy; no dysarthria; moves extremities. Results & Data Results & Data Vital Signs (Past 12 Hours) Vital Signs Temp Pulse Pulse Resp BP Pulse Ox O2 Del Method 07/25/24 15:58 36.5 C 95 H 18 99/66 L 95 Room Air 07/25/24 15:13 82 07/25/24 11:46 36.6 C 89 18 119/74 94 Room Air 07/25/24 10:27 Room Air 07/25/24 07:42 36.4 C L 103 H 18 146/91 H 97 Room Air 07/25/24 07:21 86 Laboratory Results 07/25/24 Range/Units 07:36 WBC 10.80 (4.8-10.8) K/ul RBC 4.44 (4.20-5.40) M/uL Hgb 14.5 (12.0-16.0) g/dl Hct 44.8 (37.0-47.0) % MCV 100.9 H (80.0-100.0) fL MCH 32.7 (25.0-34.0) pg MCHC 32.4 (32.0-36.0) g/dL RDW Std Deviation 55.1 H (36.4-46.3) fL RDW Coeff of Agnes 15.0 H (11.5-14.5) % Plt Count 287 (130-400) K/uL MPV 10.0 (9.4-12.4) fL Sodium 140 (136-145) mmol/L Potassium 4.3 (3.5-5.1) mmol/L Chloride 103 (98-107) mmol/L Carbon Dioxide 32 (21-32) mmol/L Anion Gap 5 (3-11) BUN 27 H (6-23) mg/dl Creatinine 1.04 (0.6-1.2) mg/dl Est Cr Clr Drug Dosing 43.0 ml/min eGFR 54.67 BUN/Creatinine Ratio 26.0 H (10-20) Glucose 113 H (70-99(Fasting)) mg/dl Calcium 9.3 (8.6-10.3) mg/dl Phosphorus 4.1 (2.5-4.9) mg/dl Magnesium 1.9 (1.7-2.4) mg/dl Medications Administered Current Inpatient Medications Acetaminophen (Acetaminophen 325 Mg Tab) 650 mg PO Q4H PRN PRN Reason: Pain or Fever Stop: 08/22/24 22:05 Last Admin: 07/25/24 11:33 Dose: 650 mg Allopurinol (Allopurinol 300 Mg Tab) 450 mg PO QAM NANY Stop: 08/23/24 08:59 Last Admin: 07/25/24 08:32 Dose: 450 mg Apixaban (Apixaban 2.5 Mg Tab) 2.5 mg PO BID NANY Stop: 08/23/24 08:59 Last Admin: 07/25/24 08:35 Dose: 2.5 mg Aspirin (Aspirin 81 Mg Ectab) 81 mg PO HS NANY Stop: 08/23/24 20:59 Last Admin: 07/24/24 20:33 Dose: 81 mg Baclofen (Baclofen 10 Mg Tab) 10 mg PO HS PRN PRN Reason: Pain Stop: 08/22/24 22:05 Bisacodyl (Bisacodyl 5 Mg Tabec) 5 mg PO DAILY NANY Stop: 08/23/24 17:59 Last Admin: 07/25/24 08:35 Dose: Not Given Cyanocobalamin (Cyanocobalamin (B-12) 500 Mcg Tablet) 1,000 mcg PO DAILY NANY Stop: 08/23/24 08:59 Last Admin: 07/25/24 08:32 Dose: 1,000 mcg Dicyclomine HCl (Dicyclomine Hcl 20 Mg Tab) 20 mg PO QID PRN PRN Reason: IBS Stop: 08/22/24 22:05 Diltiazem HCl (Diltiazem Hcl 180 Mg Capcr) 360 mg PO QPM NANY Stop: 08/23/24 20:59 Last Admin: 07/24/24 20:35 Dose: 360 mg Famotidine (Famotidine 20 Mg Tab) 20 mg PO HS NANY Stop: 08/23/24 20:59 Last Admin: 07/24/24 20:45 Dose: 20 mg Furosemide (Furosemide 20 Mg Tab) 20 mg PO QAM NANY Stop: 08/25/24 08:59 Gabapentin (Gabapentin 100 Mg Cap) 100 mg PO BID NANY Stop: 08/23/24 08:59 Last Admin: 07/25/24 08:34 Dose: 100 mg Ceftriaxone Sodium (Rocephin) 2,000 mg in 50 mls @ 100 mls/hr IV Q24H NANY Stop: 07/29/24 19:29 Last Infusion: 07/24/24 20:53 Dose: Infused Lactobacillus Acidophilus (Advanced Probiotic 625 Mg Capsule) 625 mg PO DAILY NANY Stop: 08/23/24 08:59 Last Admin: 07/25/24 08:33 Dose: 625 mg Levothyroxine Sodium (Levothyroxine Sodium 125 Mcg Tablet) 125 mcg PO DAILYBB NANY Stop: 08/23/24 06:29 Last Admin: 07/25/24 05:19 Dose: 125 mcg Magnesium Oxide (Magnesium Oxide 400 Mg Tab) 400 mg PO DAILY NANY Stop: 08/23/24 08:59 Last Admin: 07/25/24 08:33 Dose: 400 mg Nitroglycerin (Nitroglycerin Sl 0.4 Mg/Tab Tab) 0.4 mg SL Q5M PRN PRN Reason: Chest Pain Stop: 08/22/24 22:05 Pantoprazole Sodium (Pantoprazole 40 Mg Tab) 40 mg PO BID NANY Stop: 08/23/24 08:59 Last Admin: 07/25/24 08:35 Dose: 40 mg Polyethylene Glycol (Polyethylene (Miralax) 17 Gm Pack) 17 gm PO DAILY NANY Stop: 08/23/24 17:44 Last Admin: 07/25/24 08:35 Dose: Not Given Propranolol HCl (Propranolol Hcl 10 Mg Tab) 10 mg PO TID NANY Stop: 08/23/24 13:59 Last Admin: 07/25/24 14:02 Dose: 10 mg Rosuvastatin Calcium (Rosuvastatin Calcium 5 Mg Tab) 5 mg PO DAILY NANY Stop: 08/23/24 08:59 Last Admin: 07/25/24 08:33 Dose: 5 mg Vitamin D (Cholecalciferol 25 Mcg (1000 Units) Tab) 50 mcg PO QAM NANY Stop: 08/23/24 08:59 Last Admin: 07/25/24 08:33 Dose: 50 mcg
[2024-07-26 06:24] LABS: Hematocrit (blood only) 43.7 % (37.0-47.0); Hemoglobin 14.1 g/dl (12.0-16.0); Mean Corpuscular Hemoglobin 32.9 pg (25.0-34.0); Mean Corpuscular Hgb Conc 32.3 g/dL (32.0-36.0); Mean Corpuscular Volume 101.9 fL (80.0-100.0); Mean Platelet Volume 10.3 fL (9.4-12.4); Platelet Count 275 K/uL (130-400); RDW Coefficient of Variation 14.6 % (11.5-14.5); RDW Standard Deviation 54.2 fL (36.4-46.3); Red Blood Count 4.29 M/uL (4.20-5.40); White Blood Count 9.11 K/ul (4.8-10.8)
[2024-07-26 06:59] LABS: BUN Creatinine Ratio 30.8 (10-20); Calcium 9.3 mg/dl (8.6-10.3); Phosphorus 3.8 mg/dl (2.5-4.9); Potassium 4.4 mmol/L (3.5-5.1)
[2024-07-26 07:27] VITALS: BP 135/85; PULSE 90; RESP 18; TEMP 97.3; O2SAT 95
[2024-07-26] MEDS: FUROSEMIDE 20 MG TAB PO SCH (08:25)
--- NOTE | 2024-07-26 10:33 | Discharge Summary ---
Date of Service July 26, 2024 Admission HPI Per Admitting Provider 79-year-old female with past medical history significant for hypothyroidism, dyslipidemia, prediabetes, nonallergic rhinitis, hypertension, right eye retinal vein occlusion, history of CAD status post stent, tachybradycardia syndrome status post pacemaker, vitamin B12 deficiency, GERD, CKD stage III, osteoporosis, migraines, history of DVT, history of PE, who lives at home with her daughter and ambulates without support comes because of shortness of breath and tachycardia. Patient states since last 10 to 11 days she is getting progressively short of breath. Any activity making her short of breath and palpitations. At rest she is okay. Patient states she is not able to lie down flat. Denies any chest pain. No fevers. No cough. Vision is okay. Has some runny nose from allergies. No sore throat. No nausea. Appetite is okay. No abdominal pain. Normal bladder movements. She had couple of bleeding episodes from her hemorrhoids in the last 1 week. Hemodynamics are okay. Patient says she also gets on and off bloating and swelling in the legs. Since last 1 week legs are getting more progressively swollen and her home health gave her Lasix which she took couple of doses so far.Patient also says she pulled her right shoulder couple of weeks ago when she carried her granddaughter and took prednisone for 1 week. Shoulder pain is better and baclofen was prescribed for spasms but has not started yet. Past medical history. As mentioned above Past surgical history. Bilateral knee arthroplasty. Cardiac cath. Colonoscopy. IVC filter placement tonsillectomy. Bilateral cataracts. Repair of bladder and vaginal cystocele. Total abdominal hysterectomy with removal of tubes. Social history. Lives with her daughter. No smoking. No alcohol use. No drug use. Family history. Son has asthma. Father had rheumatoid heart disease. Hypertension. MD. Mother had hypertension. Stroke. Thyroid disorder. Admission Exam Per Admitting Provider General- Not in distress Head- atraumatic Eyes- PERRL. ENT- oropharynx clear Neck- supple, no JVD. Lungs- clear to auscultation no wheezing or crackles. Heart- regular rate and rhythm; no murmur, no gallop. Abdomen- normal bowel sounds, soft, nontender, no distension Extremities- Lower extremity edema present, No erythema seen . Neuro- alert, oriented PERRL, no facial palsy; no dysarthria; moves extremities. Principal Diagnosis UTI Dyspnea on exertion, tachycardia Discharge Exam General- WD/WN F in NAD Head- atraumatic Eyes- PERRL. Neck- supple, no JVD. Lungs- clear to auscultation no wheezing or crackles. Heart- regular rate and rhythm; no murmur Abdomen- normal bowel sounds, soft, nontender, no distension, + R cva tenderness Extremities- Lower extremity edema (improved), No erythema seen . Neuro- alert, oriented PERRL, no facial palsy; no dysarthria; moves extremities. Discharge Data Allergies Allergy/AdvReac Type Severity Reaction Status Date / Time imipenem Allergy Severe ANAPHYLAXIS Verified 07/23/24 18:21 Sulfa (Sulfonamide Allergy Severe hives,sob, Verified 07/23/24 18:21 Antibiotics) can take Dyazide daptomycin AdvReac Severe Anaphylaxis Verified 07/23/24 18:21 colchicine AdvReac Intermediate diarrhea Verified 07/23/24 18:21 metoprolol AdvReac Mild fatigue Verified 07/23/24 18:21 zoledronic acid AdvReac Mild NAUSEA AND Verified 07/23/24 18:21 VOMITING Consultations 07/23/24 19:23 ED Decision to Admit Stat 07/24/24 08:00 Consult Cardiology Routine Ordered Studies 07/23/24 15:47 CT for pulmonary embolism PE [CT angio chest PE protocol] Stat FINDINGS: A left implantable cardiac device is present, unchanged. Dental amalgam creates beam hardening artifact diminishing image quality The pulmonary arteries are well opacified with no central or peripheral pulmonary embolism. Chest is well-expanded. No dominant mass or airspace consolidation. Mild hypoventilatory changes at the lung bases. No pleural effusion. Cardiac size mildly enlarged. A large hiatal hernia is present, unchanged. A peripherally calcified left renal cyst is noted, not previously in the [id number]. No acute abnormality in the upper abdomen. No rib fracture or pneumothorax. Moderate osseous demineralization noted. IMPRESSION: 1. No CT evidence of an acute pulmonary embolism or cardiopulmonary process. 07/24/24 09:01 CT Abd and Pelvis [CT abd pelvis wo con] Urgent FINDINGS: Cardiomegaly with extensive coronary artery calcifications and partially imaged pacer leads. Chronic left hemidiaphragmatic elevation with linear left basilar atelectasis/scarring. Right Bochdalek hernia. No pneumatosis or pneumoperitoneum is seen. Unremarkable spleen, moderately atrophic pancreas, gallbladder, adrenal glands and liver. There are a few nonobstructing calculi of the right kidney measuring up to 4 mm. 8.2 cm right renal cyst. There is a peripherally calcified 5.9 cm exophytic cyst again noted within the midinferior pole left kidney. Additional simple and complex left renal cyst redemonstrated. There is no ureteral calculi or hydronephrosis. Urinary bladder wall thickening with partial collapse. Atherosclerosis of the aorta without aneurysm. No lymphadenopathy. Large duodenal diverticula are again seen. Esophageal wall thickening with large hiatal hernia. Colonic diverticulosis without acute diverticulitis. Moderate to extensive colonic fecal retention. Normal appendix. Fat filled umbilical hernia. No acute fracture. IMPRESSION: 1. No acute intra-abdominal or intrapelvic abnormality. 2. Colonic diverticulosis without acute diverticulitis. 3. Large hiatal hernia. 4. Nonobstructing right nephrolithiasis. 6. Additional findings as above. Hospital Course (1) Dyspnea on exertion: 79-year-old female with past medical history significant for hypothyroidism, dyslipidemia, prediabetes, nonallergic rhinitis, hypertension, right eye retinal vein occlusion, history of CAD status post stent, tachybradycardia syndrome status post pacemaker, vitamin B12 deficiency, GERD, CKD stage III, osteoporosis, migraines, history of DVT, history of PE, who lives at home with her daughter and ambulates without support comes because of shortness of breath and tachycardia. Patient states since last 10 to 11 days she is getting progressively short of breath. Any activity making her short of breath and palpitations. At rest she is okay. Patient states she is not able to lie down flat. Denies any chest pain. No fevers. No cough. Vision is okay. Has some runny nose from allergies. No sore throat. No nausea. Appetite is okay. No abdominal pain. Normal bladder movements. She had couple of bleeding episodes from her hemorrhoids in the last 1 week. Hemodynamics are okay. Patient says she also gets on and off bloating and swelling in the legs. Since last 1 week legs are getting more progressively swollen and her home health gave her Lasix which she took couple of doses so far.Patient also says she pulled her right shoulder couple of weeks ago when she carried her granddaughter and took prednisone for 1 week. Shoulder pain is better and baclofen was prescribed for spasms but has not started yet. Dyspnea on exertion And tachycardia No obvious wheezing CTA chest no PE and no acute findings VBG okay EKG and troponins okay Has lower extremity edema Received IV Lasix 20mg on admission - and continue 20 mg daily Monitor the response -> LE edema much improved Monitor on telemetry Will follow serial enzymes and repeat EKG and echo Echo - LV EF 65-70%. Mild concentric LVH. Grade I diastolic dysfunction. No significant valvular pathology. Cardiology consulted, appreciate their input Recommendations: * Titrate propranolol to 10 mg 3 times daily. * Continue diltiazem CD 360 mg daily. * Transition IV furosemide to oral formulation, 20 mg daily. * Repeat basic metabolic panel in 1 week postdischarge. * Antibiotics as per internal medicine for treatment of E. coli urinary tract infection. * Outpatient cardiology follow-up to consider pharmacologic stress testing for further evaluation of dyspnea. UTI Empiric Rocephin Ucultx posit. for E.coli sensitive to Rocephin, switched to cefuroxime on discharge Pt reports R flank pain, obtained CT abdomen - IMPRESSION: 1. No acute intra-abdominal or intrapelvic abnormality. 2. Colonic diverticulosis without acute diverticulitis. 3. Large hiatal hernia. 4. Nonobstructing right nephrolithiasis. Hypothyroidism On Synthyroid check TSH Hypertension on Cardizem, propranolol - dose changed as above Will monitor History of DVT and PE On Eliquis History of CAD status post stent On aspirin, propranolol, and statin Tachybradycardia syndrome Status post pacemaker GERD On Protonix and Pepcid History of migraines Propranolol and riboflavin Prediabetes current HbA1c level 7.5% Dyslipidemia On statin CKD stage III Presented with creatinine 1.1 Will follow labs Total Time Total Time Spent Total Time Spent (In Minutes): 40 Discharge Plan Discharge Items Patient Disposition: Home - Self-Care Reason For Visit: SOB Discharge Diagnosis: UTI Dyspnea on exertion, tachycardia Activity: Per Instructions section Non-emergency contact: Primary Care Provider, Specialist and Enrollment Counselor Call non-emergency contact if: you have any medication questions and your symptoms worsen Follow-up/Referrals: Rafa Bergman MD [Primary Care Provider] - Diet: Carb Consistent or DM2 and Heart Healthy Addtl Attending Provider Instructions: 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 Take propranolol 10 mg three times a day as prescribed. Take furosemide 20 mg daily. Finish the antibiotic treatment as prescribed. Pending Studies at Discharge: No Stand-Alone Forms: My [facility] [employer], Smoking Cessation Medications and DC Order Prescriptions: New propranolol 10 mg Tablet 10 mg PO TID Qty: 60 0RF cefuroxime axetil 250 mg tablet 250 mg PO BID 5 Days Qty: 10 0RF Continued cholecalciferol (vitamin D3) [Vitamin D3] 2,000 unit Tablet 2,000 unit PO QAM nitroglycerin [Nitrostat] 0.4 mg tablet, sublingual 0.4 mg Sublingual Q5M Qty: 25 3RF Rx Instructions: 1 pill under tongue for chest pain. May repeat in 5 min. Call 911 if no relief. aspirin 81 mg Tablet,Delayed Release (Dr/Ec) 81 mg PO HS Qty: 0 0RF dicyclomine 20 mg Tablet 20 mg PO QID PRN (Reason: IBS) diltiazem HCl 360 mg tablet extended release 24 hr 360 mg PO QPM rosuvastatin 5 mg tablet 5 mg PO DAILY coenzyme Q10 [CoQ-10] 100 mg Capsule 100 mg PO DAILY allopurinol 300 mg tablet 450 mg PO QAM pantoprazole 40 mg tablet,delayed release (DR/EC) 40 mg PO BID loperamide 2 mg Tablet 2 mg PO QID PRN (Reason: Diarrhea) famotidine 20 mg Tablet 20 mg PO HS riboflavin (vitamin B2) [Vitamin B-2] 100 mg Tablet 400 mg PO DAILY ondansetron HCl 4 mg Tablet 4 mg PO Q8H PRN (Reason: NAUSEA/VOMITING) cyanocobalamin (vitamin B-12) [Vitamin B-12] 1,000 mcg Tablet 1,000 mcg PO DAILY acetaminophen [Tylenol Extra Strength] 500 mg Tablet 1,000 mg PO Q6H PRN (Reason: PAIN/FEVER) baclofen 10 mg tablet 10 mg PO HS PRN (Reason: Pain) levothyroxine 125 mcg tablet 125 mcg PO DAILYBB furosemide [Lasix] 20 mg Tablet 20 mg PO DAILY Rx Instructions: PER PT "JUST GOT YESTERDAY, NOT STARTED YET". gabapentin 100 mg capsule 100 mg PO BID Rx Instructions: ORDERED TID, PER PT "ONLY BID". bisacodyl 5 mg Tablet 5 mg PO DAILY PRN (Reason: Constipation) Eliquis 2.5 mg tablet 2.5 mg PO BID magnesium oxide 400 mg magnesium Tablet 400 mg PO DAILY Probiotic Pearls Women's 1 billion cell Capsule,Delayed Release(Dr/Ec) 1 cap PO DAILY Discontinued propranolol 10 mg tablet 5 mg PO HS Discharge Orders: Discharge Order (Routine); Ordered 07/26/24 Ordered By: Enrique Bravo Admission Data Admit Date/Time: 07/23/24 21:07 Attending Provider: Enrique Bravo Admit Provider: Darrell Curry Primary Care Provider: Rafa Bergman Other Providers: Darrell Curry; Charles Ortega Other Interventions: Discharge Summary Assessment (RN) Last Done: 07/26/24 10:37
== END 2024-07-26 12:34 | disposition home or self-care (01) | DRG 690 ==
LOC: ED 15:18 → 2S 21:07